=== PATIENT | male | born 1940 | race Caucasian/White ===

== ENCOUNTER → 2017-06-12 07:56 | Outpatient (CLI) | payer MEDICARE, OTHER, SELFPAY ==
[2017-06-12 08:32] LABS: Absolute Lymphocyte Count 0.84 X10^3/ul (0.83-4.51); Absolute Neutrophil Count 3.7 X10^3/uL (2.0-7.7); Basophil# 0.05 X10^3/uL; Eosinophil# 0.21 X10^3/uL; Hematocrit 35.6 % (40-54); Lymphocyte # 0.84 X10^3/ul (4.0); Lymphocyte % 16.1 % (19-41); Mean Corp Hgb Conc 30.9 g/gl (32-36); Mean Corpuscular Hgb 28.9 pg (27.0-32.0); Mean Corpuscular Volume 93.7 fL (80-94); Mean Platelet Vol. 11.7 fl (6.2-12.0); Monocyte# 0.43 X10^3/uL; Monocyte% 8.2 % (0-10); Neutrophil # 3.69 X10^3/uL (2.7-7.7); Neutrophil % 70.5 % (47-70); Platelet Count 111 K/mm3 (150-450); RBC Distribution Width CV 18.2 % (11.6-14.6); RBC Distribution Width SD 60.4 fl (35.1-43.9); White Blood Count 5.2 K/mm3 (4.4-11.0)
[2017-06-12 08:34] LABS: POSITIVE COUNT NO; POSITIVE DIFFERENTIAL NO; POSITIVE MORPHOLOGY NO
[2017-06-12 08:49] LABS: Albumin, Serum 3.4 g/dL (3.2-5.0); BUN 19 mg/dL (7-18); BUN/Creat Ratio 16.2 RATIO (10-20); Calcium,Total 9.6 mg/dL (8.5-10.1); Chloride 109 mmol/L (98-107); Creatinine, Serum 1.17 mg/dL (0.70-1.30); EST Glomerular Filtration Rate 64 mL/min (>60); Est Glom Filt Rate - Afr Amer 78 mL/min (>60); Glucose 131 mg/dL (74-106); Magnesium 1.6 mg/dL (1.6-2.6); Phosphorus 2.3 mg/dL (2.5-4.9); Potassium 4.2 mmol/L (3.5-5.1); Sodium Level 143 mmol/L (136-145); Uric Acid 5.4 mg/dL (3.5-7.2)
[2017-06-12 08:52] LABS: Protein, Urine (Random) 15.5 mg/dL (<11.9); Protein:Creat Ratio 150 mg/g CRE (0-200)
[2017-06-12 08:57] LABS: Vitamin D,25 Hydroxy 32.4 ng/mL (19.95-100.01)
[2017-06-14 07:59] LABS: PTHIN 68.9 pg/mL (18.4-80.1)
== END ==
PROVIDERS: Family Provider Internal Medicine; PCP Internal Medicine; Visit Provider Internal Medicine Nephrology
DX: N18.3 Chronic kidney disease, stage 3 (moderate) (principal); M10.9 Gout, unspecified; N25.81 Secondary hyperparathyroidism of renal origin; E83.42 Hypomagnesemia; D63.1 Anemia in chronic kidney disease
CPT/HCPCS: 36415; 80069; 82306; 82570; 83735; 83970; 84156; 84550; 85025

== ENCOUNTER 2018-02-19 20:50 | Emergency (ER) | payer MEDICARE, OTHER, SELFPAY ==
[2018-02-19 20:51] VITALS: PULSE 98; RESP 16; TEMP 37.6; O2SAT 95; BMI 40.4
--- NOTE | 2018-02-19 21:11 | EKG12_ITS ---
Test Reason : Blood Pressure : / mmHG Vent. Rate : 096 BPM Atrial Rate : 096 BPM P-R Int : 160 ms QRS Dur : 140 ms QT Int : 388 ms P-R-T Axes : 015 -03 020 degrees QTc Int : 490 ms Normal sinus rhythm Right bundle branch block Abnormal ECG Confirmed by TADEO NUNEZ, MENDEZ ([id number]), editor producer BOBO GALLOWAY ([id number]) on 02/22/2018 3:31:05 PM Referred By: DIPIKA Confirmed By:MENDEZ PIEDRA MD
--- NOTE | 2018-02-19 21:16 | RAD_ITS ---
STUDY: X-RAY CHEST REASON FOR EXAM: Male, 77 years old. Weakness, SOB. TECHNIQUE: Portable chest. COMPARISON: 02/18/2016. FINDINGS: The lungs are clear and expanded. There is no demonstrated pleural abnormality. Normal size heart. Sternotomy wires and aortic valve replacement are noted. Normal mediastinum and yancy. Normal visualized pulmonary arteries. Normal visualized aortic arch and descending thoracic aorta. Normal visualized thoracic spine. Normal visualized ribs, clavicles, and shoulders. There is no demonstrated abnormality of the visualized soft tissue structures of the upper abdomen. RAD/Chest 1 View (Portable) IMPRESSION: No acute process. Electronically Signed: Taylor Fritz MD at 21:49 EST Tel , Service support ,
[2018-02-19 21:17] VITALS: BP 160/92; PULSE 99; RESP 13
[2018-02-19] MEDS: Ondansetron 4 MG/2 ML Vial IV (21:17)
[2018-02-19] MEDS: 0.9% Normal Saline 1,000 ML 150 ML IV (21:17)
[2018-02-19 21:35] LABS: Absolute Lymphocyte Count 0.24 X10^3/ul (0.83-4.51); Absolute Neutrophil Count 6.6 X10^3/uL (2.0-7.7); Basophil# 0.01 X10^3/uL; Basophil% 0.1 % (0-1); Eosinophils% 1.3 % (0-5); Hematocrit 43.8 % (40-54); Hemoglobin 13.7 g/dl (13.0-16.5); Lymphocyte # 0.24 X10^3/ul (4.0); Lymphocyte % 3.2 % (19-41); Mean Corp Hgb Conc 31.3 g/gl (32-36); Mean Corpuscular Hgb 31.1 pg (27.0-32.0); Mean Corpuscular Volume 99.3 fL (80-94); Monocyte# 0.52 X10^3/uL; Neutrophil # 6.55 X10^3/uL (2.7-7.7); Neutrophil % 88.3 % (47-70); Platelet Count 89 K/mm3 (150-450); RBC Distribution Width CV 16.2 % (11.6-14.6); RBC Distribution Width SD 58.8 fl (35.1-43.9); Red Blood Count 4.41 M/mm3 (4.6-6.2); White Blood Count 7.4 K/mm3 (4.4-11.0)
[2018-02-19 21:37] LABS: Differential Indicated SCAN CRITERIA MET; POSITIVE COUNT NO; POSITIVE DIFFERENTIAL YES; POSITIVE MORPHOLOGY NO
[2018-02-19 22:01] LABS: Anion Gap 7 (5-15); BUN 22 mg/dL (7-18); BUN/Creat Ratio 15.7 RATIO (10-20); Calcium,Total 10.4 mg/dL (8.5-10.1); Chloride 109 mmol/L (98-107); EST Glomerular Filtration Rate 52 mL/min (>60); Est Glom Filt Rate - Afr Amer 63 mL/min (>60); Glucose 142 mg/dL (74-106); Potassium 4.3 mmol/L (3.5-5.1); Sodium Level 141 mmol/L (136-145)
--- NOTE | 2018-02-19 23:40 | ED.DCSUM_ITS ---
- ER Visit Summary Date of Service: 02/19/18 Chief Complaint: Weakness History of Present Illness: The patient is a 77 M who got the flu and pneumonia shots earlier today. He went to [facility] to help with the project. He got lightheaded, weak, and nauseated. Patient admits he did not drink much to day. He denies any pain. Past history significant for asthma, hypertension, polycystic kidneys with chronic kidney disease, gout. He did have an aortic valve replacement the past and is on Xarelto. Physical Examination: vital signs significant only for temperature 99.7. Patient is lying in bed. He appears ill but in no acute distress. Head and neck examination is normal. Heart is regular rate and rhythm. Lung sounds are clear. Abdomen is soft and nontender. Active bowel sounds are noted throughout. Neuro exam reveals no focal deficits. Test Results: Portable chest x-ray shows no acute process. EKG is sinus at 96 with right bundle branch block. This is unchanged compared to prior study from March 2016. CBC is significant only for platelet count of 89,000. Chemistry studies reveal BUN of 22 and creatinine 1.40. This is only slightly elevated from his baseline. His troponin is negative. Emergency Department Course and Treatment: Patient was given IV fluids and Zofran. On repeat evaluation he is significantly improved. He is tolerating p.o. at this time. He is able to get up and ambulate without difficulty. At this time he will be discharged home with his . He is to increase fluids over the next couple of days and return for any worsening signs or concerns. Treatment Plan: Disposition: Discharge Impression: Nausea, improved This note was generated with [employer] dictation software. It may contain incorrect words, spelling, and punctuation that were not noted in review of the chart prior to signing ED Disposition - Plan for ED Patient: Disposition: Home or Assisted Living Chief Complaint: Weakness Instructions: ED Dehydration Referrals: Ricky Bradley MD [Primary Care Provider] - 3-5 Days if not improving
[2018-02-19 23:41] VITALS: BP 125/77; PULSE 90; RESP 20; O2SAT 97
--- NOTE | 2018-02-19 23:42 | NURSING ---
PT AMBULATED IN HALLWAY. DENIES SOB, DIZZINESS, WEAKNESS.
== END 2018-02-20 00:03 | disposition home or self-care (01) ==
PROVIDERS: Emergency Provider Emergency Medicine; Family Provider Internal Medicine; PCP Internal Medicine
DX: R11.0 Nausea (principal); J45.909 Unspecified asthma, uncomplicated; Q61.3 Polycystic kidney, unspecified; I12.9 Hypertensive chronic kidney disease with stage 1 through stage 4 chronic kidney disease, or unspecified chronic kidney disease; N18.9 Chronic kidney disease, unspecified; M10.9 Gout, unspecified; Z95.2 Presence of prosthetic heart valve; Z79.02 Long term (current) use of antithrombotics/antiplatelets; Z79.51 Long term (current) use of inhaled steroids; Z79.899 Other long term (current) drug therapy
CPT/HCPCS: 71045; 80048; 84484; 85025; 93005; 96361; 96374; 99285; J7030; A4216; J2405

== ENCOUNTER → 2018-06-08 12:44 | Outpatient (CLI) | payer MEDICARE, OTHER, SELFPAY ==
[2018-06-08 13:36] LABS: Protein, Urine (Random) 17.7 mg/dL (<11.9); Protein:Creat Ratio 209 mg/g CRE (0-200)
[2018-06-08 13:37] LABS: Hematocrit 41.8 % (40-54); Mean Corp Hgb Conc 31.1 g/gl (32-36); Mean Corpuscular Volume 99.5 fL (80-94); Mean Platelet Vol. 12.8 fl (6.2-12.0); Platelet Count 94 K/mm3 (150-450); RBC Distribution Width CV 16.1 % (11.6-14.6); RBC Distribution Width SD 58.6 fl (35.1-43.9); White Blood Count 5.9 K/mm3 (4.4-11.0)
[2018-06-08 13:40] LABS: Scan Indicated on CBC? Y/N NO
[2018-06-08 13:50] LABS: Albumin, Serum 3.7 g/dL (3.2-5.0); BUN 25 mg/dL (7-18); BUN/Creat Ratio 19.7 RATIO (10-20); Calcium,Total 10.3 mg/dL (8.5-10.1); Chloride 108 mmol/L (98-107); Creatinine, Serum 1.27 mg/dL (0.70-1.30); EST Glomerular Filtration Rate 58 mL/min (>60); Est Glom Filt Rate - Afr Amer 70 mL/min (>60); Glucose 108 mg/dL (74-106); Phosphorus 2.1 mg/dL (2.5-4.9); Potassium 4.5 mmol/L (3.5-5.1); Sodium Level 139 mmol/L (136-145)
[2018-06-08 14:26] LABS: Vitamin D,25 Hydroxy 28.9 ng/mL (29.95-100.01)
[2018-06-08 14:27] LABS: PTHIN 95.8 pg/mL (18.4-80.1)
== END ==
PROVIDERS: Family Provider Internal Medicine; PCP Internal Medicine; Referring Provider Internal Medicine Nephrology; Visit Provider Internal Medicine Nephrology
DX: N18.3 Chronic kidney disease, stage 3 (moderate) (principal); E55.9 Vitamin D deficiency, unspecified; D63.1 Anemia in chronic kidney disease
CPT/HCPCS: 36415; 80069; 82306; 82570; 83970; 84156; 85027

== ENCOUNTER → 2018-12-18 | Outpatient (CLI) | payer MEDICARE, OTHER, SELFPAY ==
[2018-12-18 09:25] LABS: Hematocrit 37.6 % (40-54); Hemoglobin 11.6 g/dL (13.0-16.5); Mean Corp Hgb Conc 30.9 g/dL (32-36); Mean Corpuscular Hgb 30.2 pg (27.0-32.0); Mean Corpuscular Volume 97.9 fL (80-94); Mean Platelet Vol. 12.6 fl (6.2-12.0); Platelet Count 85 K/mm3 (150-450); RBC Distribution Width CV 17.2 % (11.6-14.6); RBC Distribution Width SD 61.6 fl (35.1-43.9); Red Blood Count 3.84 M/mm3 (4.6-6.2); White Blood Count 4.8 K/mm3 (4.4-11.0)
[2018-12-18 09:32] LABS: Protein, Urine (Random) 11.1 mg/dL (<11.9); Protein:Creat Ratio 109 mg/g CRE (0-200)
[2018-12-18 09:43] LABS: Albumin, Serum 3.3 g/dL (3.2-5.0); BUN 20 mg/dL (7-18); BUN/Creat Ratio 14.3 RATIO (10-20); Calcium,Total 9.8 mg/dL (8.5-10.1); Chloride 112 mmol/L (98-107); EST Glomerular Filtration Rate 52 mL/min (>60); Est Glom Filt Rate - Afr Amer 63 mL/min (>60); Glucose 106 mg/dL (74-106); Phosphorus 2.2 mg/dL (2.5-4.9); Potassium 4.4 mmol/L (3.5-5.1); Sodium Level 145 mmol/L (136-145)
[2018-12-18 09:57] LABS: PTHIN 94.9 pg/mL (18.4-80.1); Vitamin D,25 Hydroxy 29.5 ng/mL (29.95-100.01)
== END | disposition home or self-care (01) ==
LOC: LAB.FUTURE 08:28
PROVIDERS: Family Provider Internal Medicine; PCP Internal Medicine; Referring Provider Internal Medicine Nephrology; Visit Provider Internal Medicine Nephrology
DX: E55.9 Vitamin D deficiency, unspecified (principal); N18.3 Chronic kidney disease, stage 3 (moderate); D63.1 Anemia in chronic kidney disease; N25.81 Secondary hyperparathyroidism of renal origin
CPT/HCPCS: 36415; 80069; 82306; 82570; 83970; 84156; 85027

== ENCOUNTER 2019-04-08 08:16 | Observation (INO) | payer MEDICARE, OTHER, SELFPAY ==
[2019-02-27 12:23] VITALS: BMI 42.3
[2019-04-08] VITALS (14 sets, daily range): BP systolic 88–148; BP diastolic 51–87; PULSE 82–109; RESP 16–18; TEMP 36.2–37.7; O2SAT 92–98; BMI 41.8; BMI 39.4; BMI 39.5
--- NOTE | 2019-04-08 | GASB_PTH ---
PATIENT: FRANCISCO MACK LOC: [facility] U#:[id number] AGE/SX: 78/M ROOM: [facility] RE04/08/[address]: Dr. Juan Mendez DO : 1940 BED: 1 DIS: 04/09/2019 SPEC #: [id number] RECD: 04/08/19 15:10 STATUS: BK REQ #: [id number] IAN: 04/08/19 00:[address]: Reese Bello DEPT: SURGICAL PATHOLOGY RECD BY: Alexandru Hu ENTERED: 04/09/19 08:33 SP TYPE: Gastric Bx OTHR DR: DO Dr. Juan Hickman DO Dr. Richard Guttman, MD Dr. Victor Velasquez, MD Tissues: Gastric mucous membrane Procedures: Surgery Specimen Level IV Comments: @ Ordering doctor for SUIV edited from to DR.RGUTTM Gil by RENATO at 04/09/19916 @ Submitting doctor edited from to DR.RGUTTM Gil by RENATO at 04/09/19916 HEADER OPERATION: EGD ([facility] [place] PRE-OP DIAGNOSIS: Anemia, hematemesis TISSUE SUBMITTED: Antrum biopsy for histo and H. pylori MICROSCOPIC DIAGNOSIS Gastric antrum, biopsy: Chronic gastritis. AM:tal 04/11/19 COMMENT The results of immunohistochemistry for Helicobacter pylori will be reported separately ([id number]). MICROSCOPIC DESCRIPTION Slides are reviewed. GROSS DESCRIPTION Received in fixative is one container labeled with the patient's name and designated antrum biopsy. The specimen consists of multiple irregular fragments of light leo soft tissue that in aggregate measure 0.5 x 0.3 x 0.2 cm. The specimen is totally submitted in one cassette. / SJ:tal 04/09/19 TC:3 CPT: 09612
--- NOTE | 2019-04-08 08:34 | ED.DCSUM_ITS ---
- ER Visit Summary Date of Service: 04/08/19 Chief Complaint: Nausea and vomiting dark emesis History of Present Illness: The patient is a 78 M last medical history of CAD, hypertension, aortic valve replaced not on any blood thinners. Bovine valve. Renal insufficiency stage III. Patient states around 4:00 this morning he started having nausea vomiting. Said it was black. Denies any melena. Says he is not on any blood thinners. He is never had an upper GI bleed before. Denies any abdominal pain. Physical Examination: Older male no acute distress. Vital signs are stable and afebrile. Initial blood pressure 148/87. He does not look septic or toxic. He is in no acute distress. H EENT exam unremarkable. Neck nontender. Lungs clear to auscultation. Heart regular rhythm no murmur. Abdomen soft nontender normal bowel sounds no peritoneal signs. Patient is moving all 4 extremities. No edema. Neurologically is awake and alert with no focal motor deficits. Rectal exam nontender. External hemorrhoids. No active bleeding. Loose brown stool no melena or gross blood. No mass. Nontender. Test Results: CBC shows a white count 9. Hemoglobin 13. Platelets are chronically low in the 98,000. That is his baseline. Electrolytes unremarkable BUN 21 creatinine 1.3. Gap of 5. PT and INR are unremarkable. Patient is not on blood thinners. Emergency Department Course and Treatment: Patient treated with IV Zofran for nausea. IV Protonix for the concern for possible upper GI bleed. Screening labs being obtained. He has been typed and screened. Treatment Plan: Patient reportedly had vomiting of coffee-ground material. Both from the patient and the squad. I spoke to the general surgeon on-call Dr. Casey Bello. He can scope the patient today. I will asked the hospitalist for admission. Disposition: 23-hour observation. Impression: Acute nausea and vomiting of coffee-ground material Upper GI bleed This note was generated with [employer] dictation software. It may contain incorrect words, spelling, and punctuation that were not noted in review of the chart prior to signing ED Disposition - Plan for ED Patient: Referrals: Ricky Bradley MD [Primary Care Provider] -
[2019-04-08] MEDS: Ondansetron 4 MG/2 ML Vial IV (08:40)
[2019-04-08 08:47] LABS: Anion Gap 5 (5-15); BUN 21 mg/dL (7-18); BUN/Creat Ratio 15.9 RATIO (10-20); Calcium,Total 10.3 mg/dL (8.5-10.1); Chloride 112 mmol/L (98-107); Creatinine, Serum 1.32 mg/dL (0.70-1.30); EST Glomerular Filtration Rate 56 mL/min (>60); Est Glom Filt Rate - Afr Amer 67 mL/min (>60); Estimated Creatinine Clearance 46.85 ml/min; Glucose 163 mg/dL (74-106); Potassium 4.4 mmol/L (3.5-5.1); Sodium Level 144 mmol/L (136-145)
[2019-04-08 08:50] LABS: Absolute Lymphocyte Count 0.23 X10^3/uL (0.83-4.51); Absolute Neutrophil Count 8.6 X10^3/uL (2.0-7.7); Basophil# 0.06 X10^3/uL; Basophil% 0.6 % (0-1); Eosinophil# 0.12 X10^3/uL; Eosinophils% 1.3 % (0-5); Hematocrit 42.5 % (40-54); Hemoglobin 13.3 g/dL (13.0-16.5); Lymphocyte # 0.23 X10^3/ul (4.0); Lymphocyte % 2.5 % (19-41); Mean Corp Hgb Conc 31.3 g/dL (32-36); Mean Corpuscular Hgb 30.1 pg (27.0-32.0); Mean Corpuscular Volume 96.2 fL (80-94); Mean Platelet Vol. 12.8 fl (6.2-12.0); Monocyte# 0.35 X10^3/uL; Monocyte% 3.7 % (0-10); NRBC Flagged by Analyzer 0 % (0-5); Neutrophil # 8.58 X10^3/uL (2.7-7.7); Neutrophil % 91.5 % (47-70); POSITIVE COUNT YES; POSITIVE DIFFERENTIAL YES; Platelet Count 98 K/mm3 (150-450); RBC Distribution Width CV 17.3 % (11.6-14.6); RBC Distribution Width SD 60.9 fl (35.1-43.9); Red Blood Count 4.42 M/mm3 (4.6-6.2); White Blood Count 9.4 K/mm3 (4.4-11.0)
[2019-04-08 08:52] LABS: Differential Indicated SCAN CRITERIA MET
[2019-04-08 09:09] LABS: International Normalized Ratio 1.2; Prothrombin Time (Protime)PT. 15.1 SECONDS (11.7-14.9)
[2019-04-08 09:17] LABS: Differential Comment SCANNED; Platelet Estimate SLT DEC (ADEQ)
--- NOTE | 2019-04-08 09:57 | PCM.CONS.GEN ---
Reason for Consult Date of Consultation: 04/08/19 Reason for Consultation: coffee ground emesis History of Present Illness: The patient is a 78 year old M with awoke this morning with with epigastric discomfort and then vomited coffee grounds from the first emesis. He denies change in bowel habits, blood per rectum or melena. he denies any recent change in his overall status. He notes no abdominal pain. He notes no recent change in medications. He notes no epigastric pain or symptoms consistent with worsening peptic ulcer disease. He underwent upper and lower endoscopy by Dr. Crump at [facility] on October 02, 2017. He was found to have gastritis with erosions and 4 adenomatous polyps. He was started on PPI's and had a recommendation for follow up colonoscopy in 3 years. He had a porcine aortic valve. He takes a 81mg aspirin daily. he presents to the [facility] emergency department. he was not noted to be hypotensive or tachycardic. Hgb in August was 12.2. current Hgb is 13.3. He has chronic thrombocytopenia. his stool was grossly heme negative Past Medical History Past Medical History (Chronic Problems): Chronic Problems (Last Reviewed 04/08/19 @ 11:18 by Debbie Hines DO) Atherosclerosis of coronary artery of [place] heart without angina pectoris (Chronic) Nonrheumatic aortic (valve) stenosis (Chronic) AVR w/ #25 Shannan-Fisher 01/18/2011 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/11) AVR w/ #25 Shannan-Fisher 01/18/2011 Essential (primary) hypertension (Chronic) Hyperlipemia (Chronic) Right bundle branch block (RBBB) (Chronic) Medical History: Medical History (Last Reviewed 04/08/19 @ 11:18 by Debbie Hines DO) Atherosclerosis of coronary artery of [place] heart without angina pectoris (Chronic) I25.10 Nonrheumatic aortic (valve) stenosis (Chronic) I35.0 AVR w/ #25 Shannan-Fisher 01/18/2011 Essential (primary) hypertension (Chronic) I10 Hyperlipemia (Chronic) E78.5 Right bundle branch block (RBBB) (Chronic) I45.10 Anemia in chronic kidney disease N18.9, D63.1 Asthma J45.909 Chronic kidney disease, stage 3 N18.3 GERD (gastroesophageal reflux disease) K21.9 Gout M10.9 History of splenomegaly Z87.898 Multiple lung nodules R91.[address] 2010 Obesity E66.9 Obstructive sleep apnea G47.33 Osteoarthritis M19.90 Polycystic kidney disease Q61.3 Thrombocytopenia D69.6 Allergies acetaminophen [From Vicodin] Allergy (Verified 04/08/19 08:22) Other hydrocodone [From Vicodin] Allergy (Verified 04/08/19 08:22) Other strawberry Allergy (Verified 04/08/19 08:22) Hives venom-honey bee [bee venom (honey bee)] Allergy (Verified 04/08/19 08:22) Anaphylaxis Home Medications: Ambulatory Orders Medication Instructions Recorded Allopurinol [Zyloprim] 300 mg PO DAILY 04/12/16 Fenofibrate [Tricor] 48 mg PO DAILY 04/12/16 Lisinopril [Zestril] 40 mg PO DAILY 04/12/16 Magnesium Oxide [Mag-Ox 400] 400 mg PO DAILY 04/12/16 Multivit-Min/FA/Lycopen/Lutein 1 ea PO DAILY 04/12/16 [Centrum Silver Tablet] Omeprazole [Prilosec] 20 mg PO QHS 04/12/16 Fluticasone/Vilanterol [Breo 1 ea IH DAILY 02/19/18 Ellipta 200-25 Mcg INH] Sertraline HCl [Zoloft] 50 mg PO QHS 02/19/18 aspirin 81 mg tablet,delayed 81 mg PO DAILY 02/25/19 release fluticasone propionate 50 1 spray INTRANASAL QHS 02/25/19 mcg/actuation nasal spray,suspension carvedilol 12.5 mg tablet 12.5 mg PO BID 02/27/19 Oxybutynin Chloride [Oxybutynin 10 mg PO DAILY 04/08/19 Chloride ER] Surgical History: Surgical History (Last Reviewed 04/08/19 @ 11:18 by Debbie Hines DO) History of aortic valve replacement with bioprosthetic valve (Chronic) Onset Date: 01/18/11 Z95.3 AVR w/ #25 Shannan-Fisher 01/18/2011 History of knee replacement Z96.659 History of left heart catheterization Onset Date: 01/05/11 Z98.890 History of umbilical hernia repair Z98.890, Z87.19 Surgical History: herniorrhaphy, total knee arthroplasty, - - Aortic valve replacement with bioprosthetic valve. Psychiatric History: No pertinent psych hx Smoking Status: Never smoker - *Family History Maternal Family History: Family History (Last Reviewed 02/27/19 @ 13:24 by Parveen Charlton MD) Father CAD (coronary artery disease) Brother Diabetes Mother Heart disease History Items: No pertinent history Paternal Family History: Family History (Last Reviewed 02/27/19 @ 13:24 by aPrveen Charlton MD) Father CAD (coronary artery disease) Brother Diabetes Mother Heart disease History Items: No pertinent history Review of Systems Constitutional: Denies: Chills, Fever, Weight Change HEENT: Denies: Head Aches, Sinus Congestion, Sinus Drainage Cardiovascular: Denies: Chest Pain, Palpitations Respiratory: Denies: Cough, Shortness of breath at rest, Sputum production Gastrointestinal: Denies: Abdominal Pain, Nausea, Vomiting Genitourinary: Denies: Dysuria Musculoskeletal: Denies: Joint Pain, Joint Tenderness Skin: Denies: Rash, Wounds Neurological: Denies: Numbness, Tingling, Focal weakness Psychiatric: Denies: Anxiety, Depression, Homicidal Ideations, Suicidal Ideations Hematologic/ Lymphatic: Denies: Easy Bruising, Easy Bleeding Patient Problems: Active and Suspected Problems (Last Reviewed 04/08/19 @ 11:18 by Debbie Hines DO) UGIB (upper gastrointestinal bleed) (Acute) - Physical Exam Vitals/I&O's: Vital Signs Temp Pulse Resp BP Pulse Ox 99.2 F H 82 18 116/74 98 04/08/19 08:16 04/08/19 09:44 04/08/19 09:44 04/08/19 09:44 04/08/19 09:44 Oxygen Delivery Method Room Air Weight: 132.1 kg Body Mass Index (BMI) 41.8 Intake and Output for Last 24 Hours 04/06/19 04/07/19 04/08/19 23:59 23:59 23:59 Intake Total 110 / 110 Balance 110 / 110 General: Alert, Oriented x3, Cooperative Lungs: Clear to auscultation, Normal air movement Cardiovascular: Regular rate, No murmurs Abdomen: Bowel Sounds Present, Soft, Non Tender Laboratory Results 04/08/19 08:25: WBC 9.4, RBC 4.42 L, Hgb 13.3, Hct 42.5, MCV 96.2 H, MCH 30.1, MCHC 31.3 L, RDW Std Deviation 60.9 H, RDW Coeff of Raina 17.3 H, Plt Count 98 L, MPV 12.8 H, Immature Gran % (Auto) 0.400, Neut % (Auto) 91.5 H, Lymph % (Auto) 2.5 L, [place] % (Auto) 3.7, Eos % (Auto) 1.3, Baso % (Auto) 0.6, Absolute Neuts (auto) 8.6 H, Absolute Lymphs (auto) 0.23 L, Nucleated RBC % 0, Differential Comment SCANNED, Platelet Estimate SLT 04/08/19 08:25: PT 15.1 H, INR 1.2 04/08/19 08:25: Sodium 144, Potassium 4.4, Chloride 112 H, Carbon Dioxide 27.0, Anion Gap 5, BUN 21 H, Creatinine 1.32 H, Estim Creat Clear Calc 46.85, Est GFR (MDRD) Af Amer 67, Est GFR (MDRD) Non-Af 56 L, BUN/Creatinine Ratio 15.9, Glucose 163 H, Calcium 10.3 H 04/08/19 08:25: Blood Type Pending, Antibody Screen Pending Assessment/Plan All Active Problems (Last Reviewed 04/08/19 @ 11:18 by Debbie Hines DO) UGIB (upper gastrointestinal bleed) (Acute) coffee ground emesis, likely gastric ulcer I will plan for semi-urgent upper endoscopy with possible control of GI bleeding. The patient understands the risks, benefits, possible complications and alternatives. He is currently hemodynamically stable. IV PPIs were started. type and screen
[2019-04-08 10:58] LABS: Hematocrit 41.9 % (40-54); Hemoglobin 12.8 g/dL (13.0-16.5)
[2019-04-08] MEDS: Lactated Ringers 1,000 ML 70 ML IV (11:09)
--- NOTE | 2019-04-08 11:16 | HP.PCM_ITS ---
Problem List (1) UGIB (upper gastrointestinal bleed) Status: Acute History of Present Illness Date of Admission: 04/08/19 Chief Complaint: Emesis with coffee grounds Mr. Medellin is a 78 year old M who was feeling well up until this am at about 400 when he awoke with some pain across his abdomen and nausea. He has coffee ground emesis since his first emesis and has vomited 5-6 times. He states that his BM have been brown and liquid. He does have h/o gastritis with erosion from an EGD done 2018. He is on asa but no other anticoagulation. He was given zofran in the ED and states that his has helped his nausea. 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) Nonrheumatic aortic (valve) stenosis (Chronic) AVR w/ #25 Shannan-Fisher 01/18/2011 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/11) AVR w/ #25 Shannan-Fisher 01/18/2011 Essential (primary) hypertension (Chronic) Hyperlipemia (Chronic) Right bundle branch block (RBBB) (Chronic) Medical History: Medical History (Last Reviewed 04/08/19 @ 11:18 by Debbie Hines DO) Atherosclerosis of coronary artery of [place] heart without angina pectoris (Chronic) I25.10 Nonrheumatic aortic (valve) stenosis (Chronic) I35.0 AVR w/ #25 Shannan-Fisher 01/18/2011 Essential (primary) hypertension (Chronic) I10 Hyperlipemia (Chronic) E78.5 Right bundle branch block (RBBB) (Chronic) I45.10 Anemia in chronic kidney disease N18.9, D63.1 Asthma J45.909 Chronic kidney disease, stage 3 N18.3 GERD (gastroesophageal reflux disease) K21.9 Gout M10.9 History of splenomegaly Z87.898 Multiple lung nodules R91.[address] 2010 Obesity E66.9 Obstructive sleep apnea G47.33 Osteoarthritis M19.90 Polycystic kidney disease Q61.3 Thrombocytopenia D69.6 Allergies acetaminophen [From Vicodin] Allergy (Verified 04/08/19 08:22) Other hydrocodone [From Vicodin] Allergy (Verified 04/08/19 08:22) Other strawberry Allergy (Verified 04/08/19 08:22) Hives venom-honey bee [bee venom (honey bee)] Allergy (Verified 04/08/19 08:22) Anaphylaxis Home Medications: Ambulatory Orders Medication Instructions Recorded Allopurinol [Zyloprim] 300 mg PO DAILY 04/12/16 Fenofibrate [Tricor] 48 mg PO DAILY 04/12/16 Lisinopril [Zestril] 40 mg PO DAILY 04/12/16 Magnesium Oxide [Mag-Ox 400] 400 mg PO DAILY 04/12/16 Multivit-Min/FA/Lycopen/Lutein 1 ea PO DAILY 04/12/16 [Centrum Silver Tablet] Omeprazole [Prilosec] 20 mg PO QHS 04/12/16 Fluticasone/Vilanterol [Breo 1 ea IH DAILY 02/19/18 Ellipta 200-25 Mcg INH] Sertraline HCl [Zoloft] 50 mg PO QHS 02/19/18 aspirin 81 mg tablet,delayed 81 mg PO DAILY 02/25/19 release fluticasone propionate 50 1 spray INTRANASAL QHS 02/25/19 mcg/actuation nasal spray,suspension oxybutynin chloride 5 mg 10 mg PO DAILY 02/25/19 tablet,extended release 24 hr carvedilol 12.5 mg tablet 12.5 mg PO BID 02/27/19 Oxybutynin Chloride [Oxybutynin 10 mg PO DAILY 04/08/19 Chloride ER] Surgical History: Surgical History (Last Reviewed 04/08/19 @ 11:18 by Debbie Hines DO) History of aortic valve replacement with bioprosthetic valve (Chronic) Onset Date: 01/18/11 Z95.3 AVR w/ #25 Shannan-Fisher 01/18/2011 History of knee replacement Z96.659 History of left heart catheterization Onset Date: 01/05/11 Z98.890 History of umbilical hernia repair Z98.890, Z87.19 Surgical History: herniorrhaphy, total knee arthroplasty, - - Aortic valve replacement with bioprosthetic valve. Psychiatric History: No pertinent psych hx Lives: Spouse/ Significant Other Smoking Status: Never smoker Tobacco Use: Non-smoker Alcohol: None Drugs: None - *Family History Maternal Family History: Family History (Last Reviewed 02/27/19 @ 13:24 by Parveen Charlton MD) Father CAD (coronary artery disease) Brother Diabetes Mother Heart disease History Items: No pertinent history Paternal Family History: Family History (Last Reviewed 02/27/19 @ 13:24 by Parveen Charlton MD) Father CAD (coronary artery disease) Brother Diabetes Mother Heart disease History Items: No pertinent history Review of Systems Constitutional: Denies: Anorexia, Chills, Fever, Night Sweats, Malaise, Weakness, Weight Change, Fatigue Eyes: Denies: Blurred vision, Cataracts, Conjunctivae Inflammation, Double vision, Drainage, Eyelid Inflammation, Pain, Redness, Vision Change HEENT: Reports: Difficulty Hearing. Denies: Difficulty Swallowing, Dysphasia, Ear Pain, Eye Pain, Hard of Hearing, Head Aches, Hearing Changes, Nasal bleeding, Nasal Congestion, Post Nasal Drip, Sinus Congestion, Sinus Drainage, Sore Throat, Visual Changes Cardiovascular: Denies: Chest Pain, Claudication, Chest Pressure, Chest Tightness, Edema, Heaviness, Light Headedness, Orthopnea, Palpitations, Paroxysmal Noc. Dyspnea, Syncope Respiratory: Denies: Cough, Hemoptysis, Pleuritic Pain, Shortness of Breath, Shortness of breath at rest, Shortness of breath upon exertion, Sputum production, Wheezing Gastrointestinal: Reports: Abdominal Pain, Diarrhea, Hematemesis, Nausea, Vomiting. Denies: Constipation, Dyspepsia, Hematochezia, Melena Genitourinary: Denies: Dysuria, Frequency, Hematuria, Hesitancy, Incontinence, Nocturia, Retention, Urgency Musculoskeletal: Reports: Joint Pain, Joint stiffness. Denies: Back Pain, Neck Pain Skin: Denies: Dryness, Jaundice, Lesions, Pruritis, Rash, Skin Changes, Wounds Neurological: Reports: Balance problems - 2/2 neuropathy, Numbness - feet. Denies: Blurred vision, Double vision, Change in Speech, Slurred speech, Confusion, Difficulty swallowing, Focal weakness, Headaches, Incoordination, Tingling, Tremor, Seizures Psychiatric: Denies: Anxiety, Depression Endocrine: Denies: Change in Body Habitus, Heat/ Cold Intolerance, Polydipsia, Polyuria Hematologic/ Lymphatic: Denies: Adenopathy, Anemia, Easy Bruising, Easy Bleeding, Petechiae, Purpura VTE Information - Inpt Only VTE Present on Admission: No VTE Mechan Device Prophylaxis: SCD's VTE Pharm Prophylaxis ordered?: No Patient Problems: Active and Suspected Problems (Last Reviewed 02/27/19 @ 13:24 by Parveen Charlton MD) UGIB (upper gastrointestinal bleed) (Acute) - Physical Exam Vitals/I&O's: Vital Signs Temp Pulse Resp BP Pulse Ox 98.1 F 95 16 148/79 H 98 04/08/19 10:40 04/08/19 10:40 04/08/19 10:40 04/08/19 10:40 04/08/19 10:40 Oxygen Delivery Method Room Air Weight: 124.9 kg Body Mass Index (BMI) 39.4 Intake and Output for Last 24 Hours 04/06/19 04/07/19 04/08/19 23:59 23:59 23:59 Intake Total 110 / 110 Output Total 200 / 200 Balance -90 / -90 General: Alert, Oriented x3, Cooperative, No apparent distress, Well developed, Well nourished, - - just arriving to PCU, at bedside, sitting on EOB HEENT: Atraumatic, PERRLA, EOMI, Normocephalic, EAC Clear Oral: Moist Mucosa, No Gingival or Mucosal Lesions/ Ulcerations, - - poor dentition Neck: Supple, No JVD, Negative Carotid Bruits, Negative Hepatojugular Reflux, No Nodes, No Nuchal Rigidity, Trachea Midline, Thyroid Normal Size and Texture Lungs: Clear to auscultation, Normal air movement, No rhonchi, No wheeze, No rales Cardiovascular: Regular rate, Regular Rhythm, Normal S1, Normal S2, No murmurs, No Ectopic Activity, No rub noted, No Gallop Abdomen: Bowel Sounds Present, Soft, Non Tender, Non-Distended, Obese, No hernias noted Extremities: No clubbing, No cyanosis, Edema - 1+ B LE-per pt this is chronic Skin: No rashes, No breakdown, - - changes c/w chronic venous stasis B LE Musculoskeletal: No Tenderness to Palpation of Joints or Extremities, No Muscle Wasting, Arthritic Changes Lymphatic: No Cervical, Supraclavicular, or Inguinal Adenopathy Neurological: Cranial nerves II-XII grossly intact, Neuro grossly intact, Motor Exam 5/5 strength throughout Psych/Mental Status: Appropriate, Alert and oriented to time, place, person, mood and affect Laboratory Results 04/08/19 08:25: WBC 9.4, RBC 4.42 L, Hgb 13.3, Hct 42.5, MCV 96.2 H, MCH 30.1, MCHC 31.3 L, RDW Std Deviation 60.9 H, RDW Coeff of Raina 17.3 H, Plt Count 98 L, MPV 12.8 H, Immature Gran % (Auto) 0.400, Neut % (Auto) 91.5 H, Lymph % (Auto) 2.5 L, [place] % (Auto) 3.7, Eos % (Auto) 1.3, Baso % (Auto) 0.6, Absolute Neuts (auto) 8.6 H, Absolute Lymphs (auto) 0.23 L, Nucleated RBC % 0, Differential Comment SCANNED, Platelet Estimate SLT 04/08/19 08:25: PT 15.1 H, INR 1.2 04/08/19 08:25: Sodium 144, Potassium 4.4, Chloride 112 H, Carbon Dioxide 27.0, Anion Gap 5, BUN 21 H, Creatinine 1.32 H, Estim Creat Clear Calc 46.85, Est GFR (MDRD) Af Amer 67, Est GFR (MDRD) Non-Af 56 L, BUN/Creatinine Ratio 15.9, Glucose 163 H, Calcium 10.3 H 04/08/19 08:25: Blood Type Pending, Antibody Screen Pending 04/08/19 10:49: Hgb 12.8 L, Hct 41.9 Current Medications Albuterol Sulfate (Ventolin Aerosols) 2.5 mg INHALATION Q6HWA.RT VITA Budesonide (Pulmicort Aerosol) 0.5 mg INHALATION Q12H.RT VITA Carvedilol (Coreg) 12.5 mg PO BID VITA Fluticasone Propionate (Flonase Nasal [place]) 1 spray NASAL DAILY VITA Lactated Ringer's () 1,000 mls @ 70 mls/hr IV .[id number] VITA Stop: 04/09/19 00:42 Last Admin: 04/08/19 11:09 Dose: 70 mls/hr Documented by: Sodium Chloride () 250 mls @ 15 mls/hr IV .[id number] PRN PRN Reason: Saline Flush Sodium Chloride () 250 mls @ 15 mls/hr IV .[id number] PRN PRN Reason: Additional IVPB Infusion Pantoprazole Sodium 40 mg/ (Sodium Chloride) 110 mls @ 330 mls/hr IV Q12 VITA Lisinopril (Zestril) 40 mg PO DAILY VITA Sodium Chloride () 10 - 40 ml IV UD PRN PRN Reason: SALINE FLUSH Assessment/Plan All Active Problems (Last Reviewed 02/27/19 @ 13:24 by Parveen Charlton MD) UGIB (upper gastrointestinal bleed) (Acute) Hematochezia -Admit to PCU -EGD today around [address] Bello -NPO -Protonix IV 40 mg BID -hold ASA -q 6 hr H&H (Hgb 12.8 on admission) -baseline hgb is around 13 -transfuse for < 7 or profuse bleeding -coags WNL CHALINO on CKD Stage 2-3 -baseline creatinine is 1.2-1.4 -1.3 today -hold IVF for now, if remains NPO may need IVF -watch UO and Creatinine -has PCKD Hypercalcemia -may be a bit dry -not new -check ionized Secondary Hyperparathyroidism -related to renal disease -vitamin D supplementation GERD -PPI Chronic Thrombocytopenia -98,000 -stable -no need for plts CAD/HTN/HPL/H/O AVR(2010)/Chronic RBBB -continue BP meds and watch pressures -hold fenofibrate -hold asa -Follows with Dr. Charlton Gout -hold allopurinol for now Asthma -continue home inhalers Urinary incontinence -hold oxybutinin Depression -hold Zoloft DEMI -CPAP if pt uses at home Severe Obesity -recommend wgt loss DVT prophylaxis -SCD CODE STATUS: FULL
--- NOTE | 2019-04-08 11:36 | NURSING ---
Called report to Jacquelin MOE in [facility]
--- NOTE | 2019-04-08 12:51 | OP.EGD_ITS ---
Patient Name: Satya Medellin Procedure Date: 04/08/2019 11:53 AM Date of : 1940 Age: 78 Procedure: Upper GI endoscopy Indications: Coffee-ground emesis Providers: Reese Bello MD Medicines: Monitored Anesthesia Care Patient Profile: This is a 78 year old male. Refer to note in patient chart for documentation of history and physical. Complications: No immediate complications. Procedure: Pre-Anesthesia Assessment: - Prior to the procedure, a History and Physical was performed, and patient medications and allergies were reviewed. The patient is competent. The risks and benefits of the procedure and the sedation options and risks were discussed with the patient. All questions were answered and informed consent was obtained. Patient identification and proposed procedure were verified by the physician, the nurse and the electrical lineman in the procedure room. Mental Status Examination: alert and oriented. Airway Examination: normal oropharyngeal airway and neck mobility. Respiratory Examination: clear to auscultation. CV Examination: normal. Prophylactic Antibiotics: The patient does not require prophylactic antibiotics. Prior Anticoagulants: The patient has taken no previous anticoagulant or antiplatelet agents. ASA Grade Assessment: E - Emergency. After reviewing the risks and benefits, the patient was deemed in satisfactory condition to undergo the procedure. The anesthesia plan was to use monitored anesthesia care (MAC). Immediately prior to administration of medications, the patient was re-assessed for adequacy to receive sedatives. The heart rate, respiratory rate, oxygen saturations, blood pressure, adequacy of pulmonary ventilation, and response to care were monitored throughout the procedure. The physical status of the patient was re-assessed after the procedure. After obtaining informed consent, the endoscope was passed under direct vision. Throughout the procedure, the patient's blood pressure, pulse, and oxygen saturations were monitored continuously. The gastroscope was introduced through the mouth, and advanced to the jejunum. The upper GI endoscopy was accomplished without difficulty. The patient tolerated the procedure well. Scope In: 12:40:52 PM Scope Out: 12:46:33 PM Total Procedure Duration Time 0 hours 5 minutes 41 seconds Findings: The examined jejunum was normal. Localized mild inflammation characterized by erythema was found in the duodenal bulb. Scattered moderate inflammation characterized by erosions, erythema, friability, linear erosions and shallow ulcerations was found in the gastric antrum. Biopsies were taken with a cold forceps for Helicobacter pylori testing using PyloriTek test. Biopsies were taken with a cold forceps for histology. A medium-sized hiatal hernia was present. The examined esophagus was normal. Impression: - Normal examined jejunum. - Duodenitis. - Gastritis. Biopsied. - Medium-sized hiatal hernia. - Normal esophagus. Recommendation: - [facility]. - Clear liquid diet for 1 day. - Give Protonix (pantoprazole): initiate therapy with 80 mg IV bolus, then 8 mg/hr IV by continuous infusion. - Continue present medications. Procedure Code(s): --- Professional --- 14407, Esophagogastroduodenoscopy, flexible, transoral; with biopsy, single or multiple CPT copyright 2017 [employer]. All rights reserved. The codes documented in this report are preliminary and upon tennis player review may be revised to meet current compliance requirements. Reese Bello MD 04/08/2019 12:50:43 PM This report has been signed electronically. Number of Addenda: 0 Note Initiated On: 04/08/2019 11:53 AM
--- NOTE | 2019-04-08 14:00 | IMM_PTH ---
PATIENT: FRANCISCO MACK LOC: [facility] U#:[id number] AGE/SX: 78/M ROOM: [facility] RE04/08/[address]: Dr. Juan Mendez DO : 1940 BED: 1 DIS: 04/09/2019 SPEC #: [id number] RECD: 04/09/19 09:02 STATUS: BK REQ #: [id number] IAN: 04/08/19 14:[address]: Reese Bello DEPT: IMMUNOHISTOCHEMISTRY RECD BY: Whitney Chan ENTERED: 04/09/19 09:03 SP TYPE: IMMUNO OTHR DR: DO Dr. Juan Hickman DO Dr. Victor Velasquez, MD Tissues: Stomach, NOS Procedures: H Pylori (initial) PHYSICIAN & INSTITUTION [place] [id number] SPECIMEN INFORMATION: Tissue Source: Antrum biopsy Clinical Info: Anemia, hematemesis Specimen Number: [id number] CPT code: 16391 METHODOLOGY: Deparaffinized sections of prefer/formalin-fixed tissue or PAP/DQ stained slides are incubated with monoclonal/polyclonal antibodies/oligonucleotide probes. Localization is made via biotin free immunoperoxidase method. Appropriate controls are performed and reacted as expected. Results on target cell population are indicated in the following table: RESULTS: ANTIBODY / CLONE RESULT H Pylori (polyclonal) negative These tests were developed and their performance characteristics determined by [facility]. They may not have been cleared or approved by the U.S. Food and Drug Administration. The FDA has determined that such clearance or approval is not necessary. INTERPRETATION: Antrum biopsy: Negative for Helicobacter pylori organisms. AM:tal 04/11/19
[2019-04-08 16:44] LABS: Hematocrit 38.4 % (40-54); Hemoglobin 11.7 g/dL (13.0-16.5)
[2019-04-08] MEDS: Budesonide Respules 0.5 MG/2 ML AMPUL.NEB. INHALATION (19:25)
[2019-04-08] MEDS: Albuterol 2.5 MG/3 ML VIAL.NEB. INHALATION (19:25)
[2019-04-08] MEDS: Carvedilol 12.5 MG Tablet PO (21:29)
[2019-04-08 22:36] LABS: Hematocrit 35.2 % (40-54); Hemoglobin 10.9 g/dL (13.0-16.5)
[2019-04-09] VITALS (8 sets, daily range): BP systolic 94–123; BP diastolic 67–71; PULSE 75–105; RESP 18–20; TEMP 36.4–36.6; O2SAT 93–99
[2019-04-09] MEDS: 0.9% Saline Lock 10 ML Syringe IV ×2 (00:21→09:21)
[2019-04-09 05:17] LABS: Absolute Lymphocyte Count 0.38 X10^3/uL (0.83-4.51); Absolute Neutrophil Count 3.7 X10^3/uL (2.0-7.7); Basophil# 0.01 X10^3/uL; Basophil% 0.2 % (0-1); Differential Indicated SCAN CRITERIA MET; Eosinophil# 0.03 X10^3/uL; Eosinophils% 0.7 % (0-5); Hematocrit 33.5 % (40-54); Hemoglobin 10.6 g/dL (13.0-16.5); Lymphocyte # 0.38 X10^3/ul (4.0); Lymphocyte % 8.6 % (19-41); Mean Corp Hgb Conc 31.6 g/dL (32-36); Mean Corpuscular Hgb 30.6 pg (27.0-32.0); Mean Corpuscular Volume 96.8 fL (80-94); Mean Platelet Vol. 12.7 fl (6.2-12.0); Monocyte# 0.31 X10^3/uL; NRBC Flagged by Analyzer 0 % (0-5); Neutrophil # 3.67 X10^3/uL (2.7-7.7); Neutrophil % 83.3 % (47-70); POSITIVE COUNT YES; POSITIVE DIFFERENTIAL YES; Platelet Count 70 K/mm3 (150-450); RBC Distribution Width CV 17.9 % (11.6-14.6); RBC Distribution Width SD 61.6 fl (35.1-43.9); Red Blood Count 3.46 M/mm3 (4.6-6.2); White Blood Count 4.4 K/mm3 (4.4-11.0)
[2019-04-09 05:38] LABS: Anion Gap 6 (5-15); BUN 28 mg/dL (7-18); BUN/Creat Ratio 19.4 RATIO (10-20); Calcium,Total 9.1 mg/dL (8.5-10.1); Chloride 113 mmol/L (98-107); Creatinine, Serum 1.44 mg/dL (0.70-1.30); EST Glomerular Filtration Rate 50 mL/min (>60); Est Glom Filt Rate - Afr Amer 61 mL/min (>60); Estimated Creatinine Clearance 42.95 ml/min; Glucose 121 mg/dL (74-106); Potassium 4.3 mmol/L (3.5-5.1); Sodium Level 142 mmol/L (136-145)
[2019-04-09 06:34] LABS: Differential Comment SCANNED
[2019-04-09 06:35] LABS: Platelet Estimate SLT DEC (ADEQ)
[2019-04-09] MEDS: Albuterol 2.5 MG/3 ML VIAL.NEB. INHALATION (06:48)
[2019-04-09] MEDS: Budesonide Respules 0.5 MG/2 ML AMPUL.NEB. INHALATION (06:48)
[2019-04-09] MEDS: Lisinopril 40 MG Tablet PO (09:19)
[2019-04-09] MEDS: Carvedilol 12.5 MG Tablet PO (09:19)
[2019-04-09] MEDS: Fluticasone 0.05% 1 SPRAY NASAL.SRY NASAL (09:25)
--- NOTE | 2019-04-09 10:30 | CASEMGMT ---
Addendum entered by Devon Crump 04/09/19 11:05: [facility] to [facility] and clinical information faxed to [place] with pt's approval. Mary DEE Original Note: RN CM Assessment Presentation: GIB Intro role of CM and purpose of RN CM assessment. Pt is awake, alert and able to participate in assessment. Demographics, PCP and Pharmacy verified. Pt states no dc needs, anticipates to go home today PCP: Dr. Bradley Specialists: Dr. Bello [facility] Retail Insurance: [facility] Prescription Benefit: yes LNOK: , Sagrario Medellin Living Arrangements: Lives independently with . Transportation: Drives, or family can drive Patient DC goals: Home DC PLAN: Home. Mary DEE
--- NOTE | 2019-04-09 11:53 | CASEMGMT ---
Intro role of CM to patient and PICKARD form explained re: Observation status for treatment of UGI Bleed. Explained hospitalization will be paid per? [facility] guidelines for Outpatient billing?and condition will continue to be evaluated for Inpt necessity. Also let pt know that [facility] sends paper in the billing packet with their phone number if questions arise. Discussed Pharmacy section of PICKARD form and self administered medication guideline.? Pt verbalizes understanding and does not have further questions. Form signed and placed in chart, copy to pt. SAYDA MOE BSN CM
--- NOTE | 2019-04-09 12:13 | PCM.DC ---
- Discharge Diagnoses Current Active Problems: Current Active and Chronic Problems (Last Reviewed 04/08/19 @ 11:18 by Debbie Hines DO) UGIB (upper gastrointestinal bleed) (Acute) You will use the following diet at home:: No restrictions Your food should be the consistency of: Regular Your liquids should be the consistency of: Regular/Thin Discharge Activity: Return to Normal Activity Weight Bearing Status: Full weight bearing Allergies/Adverse Reactions: Allergies acetaminophen [From Vicodin] Allergy (Verified 04/08/19 08:22) Other hydrocodone [From Vicodin] Allergy (Verified 04/08/19 08:22) Other strawberry Allergy (Verified 04/08/19 08:22) Hives venom-honey bee [bee venom (honey bee)] Allergy (Verified 04/08/19 08:22) Anaphylaxis Medications to take at Discharge Allopurinol [Zyloprim] 300 mg PO DAILY 04/12/16 Fenofibrate [Tricor] 48 mg PO DAILY 04/12/16 Lisinopril [Zestril] 40 mg PO DAILY 04/12/16 Magnesium Oxide [Mag-Ox 400] 400 mg PO DAILY 04/12/16 Multivit-Min/FA/Lycopen/Lutein [Centrum Silver Tablet] 1 ea PO DAILY 04/12/16 Fluticasone/Vilanterol [Breo Ellipta 200-25 Mcg INH] 1 ea IH DAILY 02/19/18 Sertraline HCl [Zoloft] 50 mg PO QHS 02/19/18 fluticasone propionate 50 mcg/actuation nasal spray,suspension 1 spray INTRANASAL QHS 02/25/19 carvedilol 12.5 mg tablet 12.5 mg PO BID 02/27/19 Oxybutynin Chloride [Oxybutynin Chloride ER] 10 mg PO DAILY 04/08/19 Omeprazole [Prilosec] 40 mg PO QHS #60 cap 04/09/19 The following prescriptions were given: Omeprazole [Prilosec] 40 mg PO QHS #60 cap Transmission Status: Pending to [facility] Primary Care Physician: Ricky Bradley MD [Primary Care Provider] - Please follow up with your Primary Care Physician in: in 3 weeks Test Results: Test results from this visit will be discussed in further detail at your follow-up appointment, if applicable. Please Follow Up With: Reese Bello MD When: in 2 weeks
--- NOTE | 2019-04-09 12:28 | PCM.PN.SRG ---
Patient Problems: Active and Suspected Problems (Last Reviewed 04/08/19 @ 11:18 by Debbie Hines DO) UGIB (upper gastrointestinal bleed) (Acute) Subjective: no nausea or further coffee-ground emesis - Physical Exam Vitals/I&O's: Vital Signs Temp Pulse Resp BP Pulse Ox 97.8 F 75 18 123/70 H 99 04/09/19 09:12 04/09/19 10:59 04/09/19 09:12 04/09/19 09:15 04/09/19 09:12 Oxygen Delivery Method CPAP Weight: 124.9 kg Body Mass Index (BMI) 39.4 Intake and Output for Last 24 Hours 04/07/19 04/08/19 04/09/19 23:59 23:59 23:59 Intake Total 1832.5 / 1832.5 210 / 210 Output Total 200 / 200 Balance 1632.5 / 1632.5 210 / 210 General: Alert, Oriented x3, Cooperative Lungs: Clear to auscultation, Normal air movement Cardiovascular: Regular rate, Regular Rhythm Abdomen: Bowel Sounds Present, Soft, Non Tender Laboratory Results 04/08/19 16:12: Hgb 11.7 L, Hct 38.4 L 04/08/19 22:30: Hgb 10.9 L, Hct 35.2 L 04/09/19 04:54: WBC 4.4, RBC 3.46 L, Hgb 10.6 L, Hct 33.5 L, MCV 96.8 H, MCH 30.6, MCHC 31.6 L, RDW Std Deviation 61.6 H, RDW Coeff of Raina 17.9 H, Plt Count 70 L, MPV 12.7 H, Immature Gran % (Auto) 0.200, Neut % (Auto) 83.3 H, Lymph % (Auto) 8.6 L, [place] % (Auto) 7.0, Eos % (Auto) 0.7, Baso % (Auto) 0.2, Absolute Neuts (auto) 3.7, Absolute Lymphs (auto) 0.38 L, Nucleated RBC % 0, Differential Comment SCANNED, Platelet Estimate SLT 04/09/19 04:54: Sodium 142, Potassium 4.3, Chloride 113 H, Carbon Dioxide 23.0, Anion Gap 6, BUN 28 H, Creatinine 1.44 H, Estim Creat Clear Calc 42.95, Est GFR (MDRD) Af Amer 61, Est GFR (MDRD) Non-Af 50 L, BUN/Creatinine Ratio 19.4, Glucose 121 H, Calcium 9.1 04/09/19 04:54: Ionized Calcium Pending Current Medications Albuterol Sulfate (Ventolin Aerosols) 2.5 mg INHALATION Q6HWA.RT [facility] Last Admin: 04/09/19 06:48 Dose: 2.5 mg Documented by: Budesonide (Pulmicort Aerosol) 0.5 mg INHALATION Q12H.RT [facility] Last Admin: 04/09/19 06:48 Dose: 0.5 mg Documented by: Carvedilol (Coreg) 12.5 mg PO BID [facility] Last Admin: 04/09/19 09:19 Dose: 12.5 mg Documented by: Fluticasone Propionate (Flonase Nasal [place]) 1 spray NASAL DAILY [facility] Last Admin: 04/09/19 09:25 Dose: 1 spray Documented by: Sodium Chloride () 250 mls @ 15 mls/hr IV .[id number] PRN PRN Reason: Saline Flush Sodium Chloride () 250 mls @ 15 mls/hr IV .[id number] PRN PRN Reason: Additional IVPB Infusion Pantoprazole Sodium 40 mg/ (Sodium Chloride) 110 mls @ 330 mls/hr IV Q12 [facility] Last Infusion: 04/09/19 10:38 Dose: Infused Documented by: Lisinopril (Zestril) 40 mg PO DAILY [facility] Last Admin: 04/09/19 09:19 Dose: 40 mg Documented by: Ondansetron HCl (Zofran) 4 mg IV Q6H PRN PRN PRN Reason: NAUSEA/VOMITING Sodium Chloride () 10 - 40 ml IV UD PRN PRN Reason: SALINE FLUSH Last Admin: 04/09/19 09:21 Dose: 10 ml Documented by: Medical Necessity - Tobacco Use Smoking Status: Never smoker Tobacco Use: Non-smoker Assessment/Plan All Active Problems (Last Reviewed 04/08/19 @ 11:18 by Debbie Hines DO) UGIB (upper gastrointestinal bleed) (Acute) coffee ground emesis, gastritis with superficial gastric ulcer found an upper endoscopy would maintain patient on proton pump inhibitors and plan for repeat upper endoscopy in approximately one month.rapid H. pylori test was tentatively negative. We'll await final pathology. Patient's hemoglobin did decrease somewhat overnight is expected given his presenting symptoms. With no further bleeding I'm comfortable discharging the patient home with instructions to return if he notes further episodes of GI bleeding.
--- NOTE | 2019-04-11 16:20 | DS.PCM_ITS ---
Discharge Date and Diagnosis Date of Admission: 04/08/19 Date of Discharge: 04/09/19 - Primary Discharge Diagnosis #1 duodenitis #2 gastritis #3 hematemesis secondary to gastritis and duodenitis #4 essential hypertension #5 chronic thrombocytopenia #6 stage III chronic kidney disease - Secondary Discharge Diagnosis Chronic Problems (Last Reviewed 04/08/19 @ 11:18 by Debbie Hines DO) Atherosclerosis of coronary artery of [place] without angina pectoris (Chronic) Nonrheumatic aortic (valve) stenosis (Chronic) AVR w/ #25 Shannan-Fisehr 01/18/2011 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/11) AVR w/ #25 Shannan-Fisher 01/18/2011 Essential (primary) hypertension (Chronic) Hyperlipemia (Chronic) Right bundle branch block (RBBB) (Chronic) Hospital Course and Treatment Operations: None Procedures: EGD Summary of Care Provided: The patient is a 78 year old M who was seen in the emergency room at [facility] after having an episode at home of dark emesis. Work-up in the emergency room included labs which revealed a white blood cell count of 9, hemoglobin of 13, and platelet count of 98,000. BUN was 21, creatinine was 1.3. Patient was given IV Zofran for nausea and given IV Protonix, he was placed in observation status on PCU and hemoglobin was monitored. He had a slight drop in his hemoglobin during his hospitalization there were no more episodes of emesis. Patient was seen in consultation by general surgery, he underwent an EGD which showed evidence of gastritis and duodenitis, no active bleeding was noted. On 04/09/2019, patient was seen and examined: On examination he appeared in good health and spirits. Vital signs as documented. Skin warm and dry and without overt rashes. Neck without JVD. Lungs clear. Heart exam notable for regular rhythm, normal sounds and absence of murmurs, rubs or gallops. Abdomen unremarkable and without evidence of organomegaly, masses, or abdominal aortic enlargement. Extremities nonedematous. Neuro: Cranial nerves II through XII are grossly intact, no focal motor deficits were noted, sensation to light touch and pinprick is intact. Psych: Patient is alert and oriented x3, he does not appear anxious or depressed On 04/09/2019, patient was seen and examined and felt to be in stable condition for discharge home. - Physical Exam Vitals/I&O's: Vital Signs Temp Pulse Resp BP Pulse Ox 97.8 F 75 18 123/70 H 99 04/09/19 09:12 04/09/19 10:59 04/09/19 09:12 04/09/19 09:15 04/09/19 09:12 Oxygen Delivery Method CPAP Weight: 124.9 kg Body Mass Index (BMI) 39.4 Intake and Output for Last 24 Hours 04/09/19 04/10/19 04/11/19 23:59 23:59 23:59 Intake Total 810 / 810 Balance 810 / 810 Laboratory Results 04/09/19 04:54: Ionized Calcium 5.9 H Discharge Activity: Return to Normal Activity Weight Bearing Status: Full weight bearing Home Medications: Medications to take at Discharge Allopurinol [Zyloprim] 300 mg PO DAILY 04/12/16 Fenofibrate [Tricor] 48 mg PO DAILY 04/12/16 Lisinopril [Zestril] 40 mg PO DAILY 04/12/16 Magnesium Oxide [Mag-Ox 400] 400 mg PO DAILY 04/12/16 Multivit-Min/FA/Lycopen/Lutein [Centrum Silver Tablet] 1 ea PO DAILY 04/12/16 Fluticasone/Vilanterol [Breo Ellipta 200-25 Mcg INH] 1 ea IH DAILY 02/19/18 Sertraline HCl [Zoloft] 50 mg PO QHS 02/19/18 fluticasone propionate 50 mcg/actuation nasal spray,suspension 1 spray INTRANASAL QHS 02/25/19 carvedilol 12.5 mg tablet 12.5 mg PO BID 02/27/19 Oxybutynin Chloride [Oxybutynin Chloride ER] 10 mg PO DAILY 04/08/19 Omeprazole [Prilosec] 40 mg PO QHS #60 cap 04/09/19 Following Prescrptions Were Given to Patient: Omeprazole [Prilosec] 40 mg PO QHS #60 cap Transmission Status: [facility] by [facility] Primary Care Physician: Ricky Bradley MD [Primary Care Provider] - Please follow up with your Primary Care Physician in: in 3 weeks Please Follow Up With: Reese Bello MD When: in 2 weeks Disposition: Home Minutes spent on discharge:: 30 Patient Condition:: Stable Medical Necessity - Tobacco Use Smoking Status: Never smoker Tobacco Use: Non-smoker Meaningful Use Info Meaningful Use Diagnoses (Choose all that apply): None applicable Code Visit OBSV E&M: 50056 Observation care discharge
== END 2019-04-09 12:14 | disposition home or self-care (01) ==
LOC: ED 08:49 → PCU 10:25
PROVIDERS: Surgery; Admitting Provider Internal Medicine; Emergency Provider Emergency Medicine; Family Provider Internal Medicine; PCP Internal Medicine; Visit Provider Internal Medicine
PROC: 0DJ08ZZ Inspection of Upper Intestinal Tract, Via Natural or Artificial Opening Endoscopic (ICD-10-PCS; CPT 43235; principal; 2019-04-08 13:55)
DX: K29.51 Unspecified chronic gastritis with bleeding (principal); K29.81 Duodenitis with bleeding; K44.9 Diaphragmatic hernia without obstruction or gangrene; R32 Unspecified urinary incontinence; N25.81 Secondary hyperparathyroidism of renal origin; E83.52 Hypercalcemia; K25.9 Gastric ulcer, unspecified as acute or chronic, without hemorrhage or perforation; I25.10 Atherosclerotic heart disease of native coronary artery without angina pectoris; I12.9 Hypertensive chronic kidney disease with stage 1 through stage 4 chronic kidney disease, or unspecified chronic kidney disease; N18.3 Chronic kidney disease, stage 3 (moderate); K64.4 Residual hemorrhoidal skin tags; E78.5 Hyperlipidemia, unspecified; D63.1 Anemia in chronic kidney disease; J45.909 Unspecified asthma, uncomplicated; K21.9 Gastro-esophageal reflux disease without esophagitis; R91.8 Other nonspecific abnormal finding of lung field; E66.9 Obesity, unspecified; G47.33 Obstructive sleep apnea (adult) (pediatric); M10.9 Gout, unspecified; M19.90 Unspecified osteoarthritis, unspecified site; Q61.3 Polycystic kidney, unspecified; Z79.899 Other long term (current) drug therapy; Z95.2 Presence of prosthetic heart valve; Z79.82 Long term (current) use of aspirin; Z79.51 Long term (current) use of inhaled steroids; Z68.39 Body mass index [BMI] 39.0-39.9, adult; Z71.3 Dietary counseling and surveillance; D69.6 Thrombocytopenia, unspecified
CPT/HCPCS: 43239; 36415; 80048; 82330; 85014; 85018; 85025; 85610; 86850; 86900; 86901; 88305; 88342; 94640; 96365; 96366; 96375; 99218; 99251; 99284; J7030; J7120; A4216; G0378; G0463; J2405

== ENCOUNTER → 2019-06-14 07:50 | Outpatient (CLI) | payer MEDICARE, OTHER, SELFPAY ==
[2019-04-08 10:59] VITALS: BMI 39.4
[2019-06-14 08:22] LABS: Hematocrit 35.7 % (40-54); Mean Corp Hgb Conc 30.8 g/dL (32-36); Mean Corpuscular Volume 94.2 fL (80-94); Mean Platelet Vol. 12.3 fl (6.2-12.0); POSITIVE COUNT YES; Platelet Count 90 K/mm3 (150-450); RBC Distribution Width CV 17.1 % (11.6-14.6); Red Blood Count 3.79 M/mm3 (4.6-6.2); White Blood Count 5.1 K/mm3 (4.4-11.0)
[2019-06-14 08:26] LABS: Scan Indicated on CBC? Y/N NO
[2019-06-14 08:41] LABS: Protein, Urine (Random) 9.2 mg/dL (<11.9); Protein:Creat Ratio 81 mg/g CRE (0-200)
[2019-06-14 08:45] LABS: Albumin, Serum 3.3 g/dL (3.2-5.0); BUN 21 mg/dL (7-18); BUN/Creat Ratio 15.4 RATIO (10-20); Calcium,Total 10.3 mg/dL (8.5-10.1); Chloride 111 mmol/L (98-107); Creatinine, Serum 1.36 mg/dL (0.70-1.30); EST Glomerular Filtration Rate 54 mL/min (>60); Est Glom Filt Rate - Afr Amer 65 mL/min (>60); Glucose 128 mg/dL (74-106); Phosphorus 2.5 mg/dL (2.5-4.9); Potassium 4.5 mmol/L (3.5-5.1); Sodium Level 143 mmol/L (136-145)
[2019-06-14 09:05] LABS: PTHIN 88.5 pg/mL (18.4-80.1)
[2019-06-14 09:10] LABS: Vitamin D,25 Hydroxy 29.3 ng/mL
== END ==
LOC: LAB.FUTURE 07:54 → LAB 07:57
PROVIDERS: PCP Internal Medicine; Referring Provider Internal Medicine Nephrology; Visit Provider Internal Medicine Nephrology
DX: E55.9 Vitamin D deficiency, unspecified (principal); N18.3 Chronic kidney disease, stage 3 (moderate); D63.1 Anemia in chronic kidney disease; N25.81 Secondary hyperparathyroidism of renal origin
CPT/HCPCS: 36415; 80069; 82306; 82570; 83970; 84156; 85027

== ENCOUNTER 2019-09-02 20:25 | Inpatient (IN) | payer MEDICARE, OTHER, SELFPAY ==
[2019-04-08 10:59] VITALS: BMI 39.4
[2019-09-02 20:26] VITALS: BP 155/88; PULSE 75; RESP 16; TEMP 37.2; O2SAT 96; BMI 42.1
--- NOTE | 2019-09-02 20:29 | ED.RN ---
[facility] NUMBER [phone]
--- NOTE | 2019-09-02 21:11 | RAD_ITS ---
STUDY: X-RAY - PELVIS AND LEFT HIP REASON FOR EXAM: Male, 79 years old. fall, left hip pain TECHNIQUE: 3 views of the pelvis and hip. COMPARISON: None. FINDINGS: There is an intertrochanteric fracture of the left hip which extends into the subtrochanteric region. There is avulsion of the lesser and greater trochanters. There is adjacent soft tissue hematoma. There is osteopenia. There are degenerative changes of the lower lumbar spine. RAD/HIP, UNI W/ Pelvis 2-3 Views IMPRESSION: intertrochanteric fracture of the left hip which extends into the subtrochanteric region. There is avulsion of the lesser and greater trochanters. There is adjacent soft tissue hematoma. Osteopenia Degenerative changes of the lower lumbar spine Electronically Signed: Moe Castro, at 22:16 EDT Tel , Service support ,
[2019-09-02] MEDS: fentaNYL 100 MCG/2 ML Ampul 50 MCG IV ×2 (21:19→22:36)
[2019-09-02 21:29] LABS: Absolute Lymphocyte Count 0.68 X10^3/uL (0.83-4.51); Absolute Neutrophil Count 4.8 X10^3/uL (2.0-7.7); Basophil# 0.06 X10^3/uL; Eosinophil# 0.17 X10^3/uL; Eosinophils% 2.8 % (0-5); Hematocrit 34.2 % (40-54); Hemoglobin 10.8 g/dL (13.0-16.5); Lymphocyte # 0.68 X10^3/ul (4.0); Mean Corp Hgb Conc 31.6 g/dL (32-36); Mean Corpuscular Hgb 29.5 pg (27.0-32.0); Mean Corpuscular Volume 93.4 fL (80-94); Mean Platelet Vol. 12.7 fl (6.2-12.0); Monocyte# 0.43 X10^3/uL; NRBC Flagged by Analyzer 0 % (0-5); Neutrophil # 4.79 X10^3/uL (2.7-7.7); Neutrophil % 77.6 % (47-70); POSITIVE COUNT YES; Platelet Count 89 K/mm3 (150-450); RBC Distribution Width SD 61.7 fl (35.1-43.9); Red Blood Count 3.66 M/mm3 (4.6-6.2); White Blood Count 6.2 K/mm3 (4.4-11.0)
[2019-09-02 21:37] LABS: Anion Gap 6 (5-15); BUN 26 mg/dL (7-18); BUN/Creat Ratio 18.8 RATIO (10-20); Calcium,Total 10.1 mg/dL (8.5-10.1); Chloride 113 mmol/L (98-107); Creatinine, Serum 1.38 mg/dL (0.70-1.30); EST Glomerular Filtration Rate 53 mL/min (>60); Est Glom Filt Rate - Afr Amer 64 mL/min (>60); Estimated Creatinine Clearance 42.69 ml/min; Glucose 132 mg/dL (74-106); Potassium 4.3 mmol/L (3.5-5.1); Sodium Level 144 mmol/L (136-145)
--- NOTE | 2019-09-02 21:52 | RAD_ITS ---
STUDY: X-RAY CHEST REASON FOR EXAM: Male, 79 years old. fall, pain TECHNIQUE: Portable chest COMPARISON: 02/19/2018 FINDINGS: There is stable mild cardiomegaly. There is small hiatal hernia. There are sternal wires. Normal mediastinum and yancy. Normal visualized pulmonary arteries. Normal visualized aortic arch and descending thoracic aorta. Normal visualized thoracic spine. Normal visualized ribs, clavicles, and shoulders. There is no demonstrated abnormality of the visualized soft tissue structures of the upper abdomen. RAD/Chest 1 View (Portable) IMPRESSION: Stable mild cardiomegaly Small hiatal hernia Sternal wires, prior cardiothoracic surgery Electronically Signed: Moe Castro, at 22:33 EDT Tel , Service support ,
[2019-09-02 22:00] LABS: Differential Comment SCANNED; Differential Indicated SCAN CRITERIA MET
[2019-09-02 22:01] LABS: Platelet Estimate MOD DEC (ADEQ)
--- NOTE | 2019-09-02 22:22 | ED.VISSUMM ---
- ER Visit Summary Date of Service: 09/02/19 Chief Complaint: Fall History of Present Illness: The patient is a 79 M presenting after mechanical fall. Patient was in his garage and fell onto his left side. He was unable to get up. He did not hit his head or lose consciousness. He is not on anticoagulants. He complains of left hip pain. Denies other complaints. Physical Examination: Vitals are stable. Patient is afebrile. Alert no acute distress. HEENT exam is unremarkable. Neck is nontender Lungs are clear and equal bilaterally. Heart is regular rate and rhythm. Abdomen is soft nontender nondistended. Extremities left lower extremity rotated and shortened. Left hip diffusely tender. Normal distal pulses. Skin is warm and dry. No focal neurologic deficit. Remainder of exam is unremarkable. Emergency Department Course and Treatment: Patient was given fentanyl IV. CBC shows hemoglobin 10.8, platelet 89. Chemistry showed glucose 132, BUN 26, creatinine 1.38. Left hip x-ray shows intertrochanteric fracture of the left hip which extends into the subtrochanteric region. There is avulsion of the lesser and greater trochanters. There is adjacent soft tissue hematoma. Osteopenia. Degenerative changes of the lower lumbar spine. Discussed with Dr. Ladd and the hospitalist for admission. Disposition: Admission Impression: Left intertrochanteric fracture This note was generated with [employer] dictation software. It may contain incorrect words, spelling, and punctuation that were not noted in review of the chart prior to signing ED Disposition - Plan for ED Patient: Referrals: Ricky Bradley MD [Primary Care Provider] -
[2019-09-02 22:25] VITALS: BP 126/76; PULSE 76; RESP 18; O2SAT 98
--- NOTE | 2019-09-02 22:54 | PCM.HP.STD ---
Problem List (1) Closed left hip fracture Status: Acute Qualifiers: Encounter type: initial encounter Qualified Code(s): S72.002A - Fracture of unspecified part of neck of left femur, initial encounter for closed fracture (2) Thrombocytopenia Status: Chronic (3) Anemia of chronic disease Status: Chronic (4) Morbid obesity Status: Chronic (5) DEMI (obstructive sleep apnea) Status: Chronic (6) Asthma Status: Chronic Qualifiers: Asthma severity: unspecified severity Asthma persistence: unspecified Asthma complication type: unspecified Qualified Code(s): J45.909 - Unspecified asthma, uncomplicated (7) CKD (chronic kidney disease), stage III Status: Chronic (8) PCK (polycystic kidney disease) Status: Chronic (9) Atherosclerosis of coronary artery of [place] heart without angina pectoris Status: Chronic Qualifiers: Coronary Disease-Associated Artery/Lesion type: unspecified vessel or lesion type Qualified Code(s): I25.10 - Atherosclerotic heart disease of [place] coronary artery without angina pectoris (10) History of aortic valve replacement with bioprosthetic valve Status: Chronic Comment: AVR w/ #25 Shannan-Fisher 01/18/2011 (11) Essential (primary) hypertension Status: Chronic (12) Hyperlipemia Status: Chronic Qualifiers: Hyperlipidemia type: unspecified Qualified Code(s): E78.5 - Hyperlipidemia, unspecified History of Present Illness Date of Admission: 09/02/19 Chief Complaint: Mechanical fall, L hip pain The patient is a 79 y/o M w/ PMHx: CKD stage III, CAD, Valvular Heart Disease s/p AVR with bioprosthetic valve, HTN, HLD, Asthma, AOCD, GERD, Known pulmonary nodules, DEMI, Chronic thrombocytopenia, Morbid Obesity, Gout who presents to the [facility] ED on 09/02/19 with history of fall in his garage, no head trauma, but landed on his left hip with severe pain following with debility and obvious deformity. He believes that he might of had an echocardiogram in February 2019 as he transition from the [facility] with Dr. Cobb to Dr. Charlton however he is unsure. He does admit since his AVR having exertional dyspnea and has several chairs around his property for when he needs to sit down. He does note that this is at his baseline and has not worsened. He denies any recent chest discomfort or other issues. He denies any recent fever, chills, nausea, emesis, abdominal pain, cough, persistent dyspnea, alteration to sense of taste or smell, myalgia or arthralgias. Work-up in the ED included T 98.9, heart rate 75, BP 155/88 with repeat increased to 216/76, respiratory rate 16, 96% on room air, CBC with WBC 6.2, hemoglobin 10.8, platelet 89 with noted lymphopenia and no market left shift, BMP with chloride 113, BUN/creatinine 26/1.38, glucose 132, rotavirus testing pending per ED physician, chest x-ray with stable mild cardiomegaly globally with small hiatal hernia with sternal wires status post cardiothoracic surgery, plain film of the hip and pelvis with an intertrochanteric fracture of the left hip extending into the subtrochanteric region with an avulsion of the lesser and greater trochanters with adjacent soft tissue hematoma, osteopenia, degenerative changes of the lower lumbar spine. ED patient administered fentanyl. ED physician discussed case with Dr. Ladd. Past Medical History Past Medical History (Chronic Problems): Chronic Problems (Last Reviewed 04/08/19 @ 11:[address] Debbie Hines, ) Thrombocytopenia (Chronic) Anemia of chronic disease (Chronic) Morbid obesity (Chronic) DEMI (obstructive sleep apnea) (Chronic) Asthma (Chronic) CKD (chronic kidney disease), stage III (Chronic) PCK (polycystic kidney disease) (Chronic) Atherosclerosis of coronary artery of [place] heart without angina pectoris (Chronic) Nonrheumatic aortic (valve) stenosis (Chronic) AVR w/ #25 Shannan-Fisher 01/18/2011 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 Debbie Hines, ) Atherosclerosis of coronary artery of [place] heart without angina pectoris (Chronic) I25.10 Nonrheumatic aortic (valve) stenosis (Chronic) I35.0 AVR w/ #25 Shannan-Fisher 01/18/2011 Essential (primary) hypertension (Chronic) I10 Hyperlipemia (Chronic) E78.5 Right bundle branch block (RBBB) (Chronic) I45.10 Anemia in chronic kidney disease N18.9, D63.1 Asthma J45.909 Chronic kidney disease, stage 3 N18.3 GERD (gastroesophageal reflux disease) K21.9 Gout M10.9 History of splenomegaly Z87.898 Multiple lung nodules R91.[address] 2010 Obesity E66.9 Obstructive sleep apnea G47.33 Osteoarthritis M19.90 Polycystic kidney disease Q61.3 Thrombocytopenia D69.6 Allergies acetaminophen [From Vicodin] Allergy (Verified 09/02/19 20:30) Other hydrocodone [From Vicodin] Allergy (Verified 09/02/19 20:30) Other strawberry Allergy (Verified 09/02/19 20:30) Hives venom-honey bee [bee venom (honey bee)] Allergy (Verified 09/02/19 20:30) Anaphylaxis Home Medications: Ambulatory Orders Medication Instructions Recorded Allopurinol [Zyloprim] 300 mg PO DAILY 04/12/16 Fenofibrate [Tricor] 48 mg PO DAILY 04/12/16 Lisinopril [Zestril] 40 mg PO DAILY 04/12/16 Magnesium Oxide [Mag-Ox 400] 400 mg PO DAILY 04/12/16 Multivit-Min/FA/Lycopen/Lutein 1 ea PO DAILY 04/12/16 [Centrum Silver Tablet] Fluticasone/Vilanterol [Breo 1 ea IH DAILY 02/19/18 Ellipta 200-25 Mcg INH] Sertraline HCl [Zoloft] 50 mg PO QHS 02/19/18 carvedilol 12.5 mg tablet 12.5 mg PO BID 02/27/19 Oxybutynin Chloride [Oxybutynin 10 mg PO DAILY 04/08/19 Chloride ER] Omeprazole [Prilosec] 40 mg PO QHS #60 cap 04/09/19 Hydrochlorothiazide 12.5 mg PO DAILY 09/02/19 Surgical History: Surgical History (Last Reviewed 04/08/19 @ 11:[address] Debbie Hnies, DO) History of aortic valve replacement with bioprosthetic valve (Chronic) Onset Date: 01/18/11 Z95.3 AVR w/ #25 Shannan-Fisher 01/18/2011 History of knee replacement Z96.659 History of left heart catheterization Onset Date: 01/05/11 Z98.890 History of umbilical hernia repair Z98.890, Z87.19 Surgical History: herniorrhaphy - Umbilical hernia repair., total knee arthroplasty - Left total knee replacement., - - Aortic valve replacement with bioprosthetic valve. Psychiatric History: Anxiety, Depression Lives: Spouse/ Significant Other Smoking Status: Never smoker Tobacco Use: Non-smoker Alcohol: None Drugs: None - *Family History Maternal Family History: Family History (Last Reviewed 02/27/19 @ 13:[address] Parveen Charlton MD) Father CAD (coronary artery disease) Brother Diabetes Mother Heart disease History Items: Diabetes, Heart Disease Paternal Family History: Family History (Last Reviewed 02/27/19 @ 13:[address] Parveen Charlton MD) Father CAD (coronary artery disease) Brother Diabetes Mother Heart disease History Items: Cancer, High Cholesterol, Heart Disease, Hypertension Review of Systems Constitutional: Reports: Fatigue. Denies: Anorexia, Chills, Fever, Malaise, Weakness, Weight Change HEENT: Denies: Head Aches, Sinus Congestion, Sinus Drainage Cardiovascular: Denies: Chest Pain, Chest Pressure, Chest Tightness, Orthopnea, Palpitations, Syncope Respiratory: Reports: Shortness of breath upon exertion. Denies: Cough, Shortness of Breath, Shortness of breath at rest, Sputum production Gastrointestinal: Denies: Abdominal Pain, Nausea, Vomiting Genitourinary: Denies: Dysuria Musculoskeletal: Reports: Joint Pain, Joint stiffness, Joint swelling, Joint Tenderness, Leg Pain Skin: Denies: Rash, Wounds Neurological: Denies: Numbness, Tingling, Focal weakness Psychiatric: Denies: Anxiety, Depression, Homicidal Ideations, Suicidal Ideations Hematologic/ Lymphatic: Reports: Anemia, Easy Bruising, Easy Bleeding VTE Information - Inpt Only VTE Present on Admission: No VTE Mechan Device Prophylaxis: SCD's VTE Pharm Prophylaxis ordered?: No Reason prophylaxis not ordered:: Medical Contraindication - Holding given questionable hematoma and chronic thrombocytopenia with planned OR. Patient Problems: Active and Suspected Problems (Last Reviewed 04/08/19 @ 11:[address] Debbie Hines DO) Closed left hip fracture (Acute) Subjective: Laying in the ED bed, fatigued appearance but no acute distress. Objective: Physical Examination: General: awake, alert, oriented x 3 and cooperative, laying in the ED bed, fatigued appearance, notes pain currently controlled. Skin: normal color, turgor, no icterus, cyanosis. HEENT: AT/NC, EOMI, PERRLA, dry MM, no carotid bruits or JVD noted. Lungs: CTA bilaterally, moderate effort, moderate decrease BL bases, no rales, ronchi or wheezing. Heart: Regular rate and rhythm; no gallop, rub audible, status post AVR with positive SM. Abdomen: soft, with obese, NTTP, ND, normal BS, no HSM. Extremities: no cyanosis, clubbing, status post mechanical fall with left hip fracture externally rotated, peripheral pulses intact, bilateral lower extremity pedal to mid nair edema. Neurological: patient awake, alert, oriented x 3; cognitive function is baseline intact; pupils equally reactive to light and accomodation; cranial nerves II-XII grossly normal, status post fall with left hip fracture, able to move requested right lower extremity as well as bilateral upper extremity, strength severely global decrease secondary to acute presentation. Psychiatric: affect appears fatigued otherwise normal, no acute evidence of depressive or anxiety feelings. - Physical Exam Vitals/I&O's: Vital Signs Temp Pulse Resp BP Pulse Ox 98.9 F 76 18 216/76 H 98 09/02/19 20:26 09/02/19 22:25 09/02/19 22:25 09/02/19 22:25 09/02/19 22:25 Oxygen Delivery Method Room Air Weight: 285 lb 3.553 oz Body Mass Index (BMI) 42.1 Laboratory Results 09/02/19 20:55: WBC 6.2, RBC 3.66 L, Hgb 10.8 L, Hct 34.2 L, MCV 93.4, MCH 29.5, MCHC 31.6 L, RDW Std Deviation 61.7 H, RDW Coeff of Raina 18.0 H, Plt Count 89 L, MPV 12.7 H, Immature Gran % (Auto) 0.600, Neut % (Auto) 77.6 H, Lymph % (Auto) 11.0 L, Piatt % (Auto) 7.0, Eos % (Auto) 2.8, Baso % (Auto) 1.0, Absolute Neuts (auto) 4.8, Absolute Lymphs (auto) 0.68 L, Nucleated RBC % 0, Differential Comment SCANNED, Platelet Estimate MOD 09/02/19 20:55: Sodium 144, Potassium 4.3, Chloride 113 H, Carbon Dioxide 25.0, Anion Gap 6, BUN 26 H, Creatinine 1.38 H, Estim Creat Clear Calc 42.69, Est GFR (MDRD) Af Amer 64, Est GFR (MDRD) Non-Af 53 L, BUN/Creatinine Ratio 18.8, Glucose 132 H, Calcium 10.1 09/02/19 22:06: COVID-19 ([place]) Cancelled Assessment/Plan All Active Problems (Last Reviewed 04/08/19 @ 11:[address] Debbie Hines, DO) UGIB (upper gastrointestinal bleed) (Acute) Closed left hip fracture (Acute) The patient is a 79 y/o M w/ PMHx: CKD stage III, CAD, Valvular Heart Disease s/p AVR with bioprosthetic valve, HTN, HLD, Asthma, AOCD, GERD, Known pulmonary nodules, DEMI, Chronic thrombocytopenia, Morbid Obesity, Gout who presents to the [facility] ED on 09/02/19 with history of fall in his garage, no head trauma, but landed on his left hip with severe pain following with debility and obvious deformity. 1. General debility, L hip pain s/p mechanical fall w/ intertrochanteric fracture of the left hip extending into the subtrochanteric region with an avulsion of the lesser and greater trochanters with adjacent soft tissue hematoma: Plain film noting plain film of the hip and pelvis with an intertrochanteric fracture of the left hip extending into the subtrochanteric region with an avulsion of the lesser and greater trochanters with adjacent soft tissue hematoma, osteopenia. Orthopedic surgery consulted from ED, Dr. Ladd, family with the patient from prior L TKR. Will admit to PCU given significant cardiac history, maintain NPO after midnight, continue gentle IVFs, obtain TSH, Mag level, UA, hernandez placement prior to OR, monitor I/Os, frequent positioning, fall precautions, type and screen. Pain, anti-emetic regimen. PT/OT following operative intervention. CM consulted for discharge planning. Pre-op COVID testing negative. EMS EKG with non-specific ST-T wave changes with SR with RBBB. Requested repeat EKG upon admission. Per Surgical Risk Calculator NSQIP, given age, lab data, comorbidities, serious complication or any complication risk 10.7% / 10.9% which is below average however given patient concurrent cardiac history with AVR as well as asthmatic history, chronic thrombocytopenia do suspect that risk is higher therefore requested repeat EKG with comparison and will request echocardiogram as well as troponin x1 and maintain on nuclear monitoring technician. Unclear if echocardiogram recently performed in 02/2019 thus if this is the case would defer repeat. Will discuss case with cardiology in a.m. to ascertain if consultation appropriate. Once these items are completed would agree with progression to operative intervention. 2. Valvular heart disease: Status post AVR with bioprosthetic valve, reportedly possible 02/[address] Cobb at the [facility], will review with Dr. Charlton to ascertain if repeat echocardiogram needed or if recent echocardiogram present. Recent echocardiogram in system noted 06/25/2018 with LV normal size, LV systolic function normal, EF 70%, LV diastolic function not evaluated secondary to severe MAC, RV's normal size, RV systolic function normal, Shannan Fisher prosthetic aortic valve present with no aortic valve regurgitation with a peak gradient of 22 mmHg, mean gradient 11 mmHg and dimensionless valve index 0.55 with new evidence of mild mitral stenosis when previously compared to 2016 echocardiogram. 3. Chronic asthma: We will transition to scheduled DuoNeb therapy and PRN albuterol, encourage head of bed once clinically appropriate, I-S and oxygen supplementation as needed. 4. Chronic thrombocytopenia: Admission platelets 89, baseline appears 80-90 over the last several years, stable, trend. 5. CAD: Nonobstructive, continue patient Coreg, TriCor, lisinopril, holding aspirin therapy given noted left hip fracture with hematoma, add back once appropriate, does have underlying thrombocytopenia thus close observation following resumption. 6. Hypertension: Continue home regimen including Coreg, lisinopril, hydrochlorothiazide, PRN hydralazine. 7. Hyperlipidemia: Not on statin, continue TriCor. 8. Chronic Kidney Disease Stage III: Admission BUN/Cr 26/1.38, baseline renal function 1.3-1.4, stable, repeat BMP in AM. 9. Chronic normocytic anemia, AOCD: Admission hemoglobin 10.8, baseline appears 10-11, stable, trend. 10. Anxiety and depression: We will continue patient home Zoloft regimen. 11. DEMI: We will continue patient home nightly CPAP. 12. Morbid Obesity: Weight loss and lifestyle changes encouraged. 13. DVT prophylaxis: SCDs, defer chemoprophylaxis given thrombocytopenia and potential for hematoma with planned operative intervention as noted. 14. CODE status: Patient SARAH is his and living will is currently in place. Discussed CODE status at length including difference between FULL code, DNR-CCA and DNR-CC status. Following discussions about the differences in these status, requested full code status. Advanced Care Planning Face to Face Time: 16 minutes. Inpatient E&M: 27003 Init Hosp L3 Procedures: 17171 Advncd Care Plan 30 Min
[2019-09-02 23:56] VITALS: BP 126/78; PULSE 71; RESP 18; TEMP 36.7; O2SAT 97
[2019-09-03] VITALS (21 sets, daily range): BP systolic 93–161; BP diastolic 51–82; PULSE 63–85; RESP 16–19; TEMP 36.3–36.8; O2SAT 92–98; BMI 40.6; BMI 40.7
[2019-09-03] MEDS: 0.9% Normal Saline 1,000 ML 75 ML IV ×2 (02:29→17:28)
[2019-09-03] MEDS: 0.9% Saline Lock 10 ML Syringe IV (02:30)
[2019-09-03] MEDS: Morphine 2 MG/ML Syringe IV (02:30)
[2019-09-03 02:33] LABS: Magnesium 1.6 mg/dL (1.6-2.6)
[2019-09-03 03:05] LABS: Hemoglobin A1c 5.7 % (4.2-6.3)
[2019-09-03 04:24] LABS: BNP,B-Type NATRIURETIC PEPTIDE 61.2 pg/mL (0-100)
[2019-09-03 05:48] LABS: Bacteria 0 SEEN /hpf (None Seen); Mucous, Urine 0 SEEN /hpf (<or=2+); Squamous Epithelial Cells - UA 0 SEEN /hpf (0-5); White Blood Cells 0 SEEN /hpf (0-5)
[2019-09-03 05:49] LABS: Color, Urine Yellow (Yellow); Glucose, Dipstick Normal (Normal); Ketone-Dipstick Negative (Negative); Leukocyte Esterase-Dipstick Negative /ul (Negative); Nitrite-Dipstick Negative (Negative); Occult Blood-Urine 10 /ul (Negative); Protein-Dipstick Negative (Negative); Urine Bilirubin Dipstick Negative (Negative); Urine Clarity Clear (Clear); Urine Urobilinogen Normal (Normal)
[2019-09-03 05:55] LABS: Red Blood Cells-Urine 0-5 SEEN /hpf (0-5)
--- NOTE | 2019-09-03 05:55 | EKG12_ITS ---
Test Reason : AM EKG Blood Pressure : / mmHG Vent. Rate : 071 BPM Atrial Rate : 071 BPM P-R Int : 164 ms QRS Dur : 154 ms QT Int : 432 ms P-R-T Axes : 068 -16 023 degrees QTc Int : 469 ms Normal sinus rhythm Right bundle branch block Abnormal ECG Confirmed by TROY NUNEZ, RYAN ([id number]), production editor BOBO GALLOWAY ([id number]) on 09/05/2019 4:13:04 PM Referred By: DR AGUILA Confirmed By:RYAN SIMMONS MD
[2019-09-03 06:34] LABS: Absolute Lymphocyte Count 0.49 X10^3/uL (0.83-4.51); Absolute Neutrophil Count 5.8 X10^3/uL (2.0-7.7); Basophil# 0.03 X10^3/uL; Basophil% 0.4 % (0-1); Eosinophil# 0.03 X10^3/uL; Eosinophils% 0.4 % (0-5); Hematocrit 32.6 % (40-54); Lymphocyte # 0.49 X10^3/ul (4.0); Lymphocyte % 7.1 % (19-41); Mean Corp Hgb Conc 30.7 g/dL (32-36); Mean Corpuscular Hgb 28.8 pg (27.0-32.0); Mean Corpuscular Volume 93.9 fL (80-94); Mean Platelet Vol. 12.9 fl (6.2-12.0); Monocyte# 0.54 X10^3/uL; Monocyte% 7.8 % (0-10); NRBC Flagged by Analyzer 0 % (0-5); Neutrophil # 5.75 X10^3/uL (2.7-7.7); Neutrophil % 83.7 % (47-70); POSITIVE COUNT YES; POSITIVE DIFFERENTIAL YES; Platelet Count 78 K/mm3 (150-450); RBC Distribution Width CV 17.9 % (11.6-14.6); RBC Distribution Width SD 61.3 fl (35.1-43.9); Red Blood Count 3.47 M/mm3 (4.6-6.2); White Blood Count 6.9 K/mm3 (4.4-11.0)
[2019-09-03 06:35] LABS: Differential Indicated SCAN CRITERIA MET
[2019-09-03 06:43] LABS: International Normalized Ratio 1.3; Partial Thromboplast Time 31.1 Seconds (24.1-36.2); Prothrombin Time (Protime)PT. 15.2 SECONDS (11.7-14.9)
[2019-09-03] MEDS: Ipratropium/Albuterol Sulfate 3 ML AMPUL.NEB INHALATION ×2 (07:00→18:51)
[2019-09-03 07:10] LABS: AST(SGOT) 42 U/L (15-37); Alanine Aminotransfer ALT/SGPT 29 U/L (16-61); Albumin, Serum 3.1 g/dL (3.2-5.0); Alkaline Phosphatase 44 U/L (45-117); Anion Gap 6 (5-15); BUN 22 mg/dL (7-18); Chloride 113 mmol/L (98-107); Creatinine, Serum 1.22 mg/dL (0.70-1.30); EST Glomerular Filtration Rate 61 mL/min (>60); Est Glom Filt Rate - Afr Amer 73 mL/min (>60); Estimated Creatinine Clearance 48.29 ml/min; Globulin 3.2 g/dL (2.2-4.2); Glucose 143 mg/dL (74-106); Potassium 4.3 mmol/L (3.5-5.1); Protein, Total 6.3 g/dL (6.4-8.2); Sodium Level 143 mmol/L (136-145); Thyroid Stim Hormone (TSH) 1.92 uIU/mL (0.358-3.74)
--- NOTE | 2019-09-03 08:34 | ECHOCS_ITS ---
Reason For Study: SOB, AVR Procedure This was a 2D Doppler, Color Flow transthoracic echocardiogram. The study was technically difficult. Patient scanned supine due to fractured hip. Exam performed portable in patient room. Left Ventricle Normal LV size. Moderate concentric left ventricular hypertrophy. Left ventricular systolic function is normal. The estimated ejection fraction is 70 %. Transmitral and pulmonary venous doppler flow suggestive of impaired relaxation of left ventricle. Stage 1 diastolic dysfunction. No regional wall motion abnormalities noted. Right Ventricle Normal RV size. Normal systolic function. Atria Normal left atrium. Normal right atrium. Mitral Valve There is moderate mitral annular calcification. Mean transmitral valve gradient 6 mmHg. Mild mitral valve stenosis. Tricuspid Valve Normal tricuspid valve. Aortic Valve Bioprosthetic aortic valve. Stable appearing bioprosthetic aortic valve apparatus. Pulmonic Valve Normal pulmonic valve. Great Vessels Normal aortic root. The pulmonary artery is normal size. Normal inferior vena cava. Pericardium/Pleural No pericardial effusion. Medication Diluted definity 2ml given slow IV push to enhance endocardial definition. MMode/2D Measurements & Calculations LVIDd: 4.1 cm IVSd: 1.5 cm LVOT diam: 2.1 cm LVIDs: 2.3 cm LVPWd: 1.3 cm RVDd: 3.8 cm FS: 43.9 % LVOT area: 3.6 cm2 Ao root diam: 3.4 cm LAV(MOD-bp): 104.1 ml LA A4 area: 28.2 cm2 LAV(MOD-bp) Indexed: 44.0 ml/m2 LAV(MOD-sp2): 108.9 ml LAV(MOD-sp4): 97.7 ml LA dimension(2D): 5.0 cm RA A4 area: 20.7 cm2 Doppler Measurements & Calculations MV E max will: 130.4 cm/sec Lat Peak E' Will: 7.6 cm/sec Med Peak E' Will: 5.6 cm/sec MV A max will: 168.3 cm/sec E/E' lat: 17.2 E/E' med: 23.5 MV E/A: 0.78 MV V2 max: 192.8 cm/sec MV P1/2t max will: 131.3 cm/sec Ao V2 max: 217.2 cm/sec MV max P.9 mmHg MV P1/2t: 141.2 msec Ao max P.9 mmHg MV V2 mean: 118.3 cm/sec MV dec slope: 272.3 cm/sec2 Ao V2 mean: 136.6 cm/sec MV mean P.0 mmHg Ao mean P.8 mmHg MV V2 VTI: 49.3 cm MVA(P1/2t): 1.6 cm2 Ao V2 VTI: 36.4 cm MVA(VTI): 1.8 cm2 PATRIC(I,D): 2.4 cm2 PATRIC(V,D): 2.2 cm2 LV V1 max: 130.6 cm/sec SV(LVOT): 87.2 ml PA V2 max: 100.9 cm/sec LV V1 max P.8 mmHg LV V1 mean P.2 mmHg LV V1 mean: 83.2 cm/sec LV V1 VTI: 24.3 cm Interpretation Summary Normal LV size. Moderate concentric left ventricular hypertrophy. Left ventricular systolic function is normal. The estimated ejection fraction is 70 %. Stage 1 diastolic dysfunction. Mean transmitral valve gradient 6 mmHg. Stable appearing bioprosthetic aortic valve apparatus. Contrast injection was performed. Ordering Physician: Parveen Charlton Referring Physician: Ricky Bradley M.D. Performed By: Estrella Jackson RDCS
--- NOTE | 2019-09-03 08:52 | CASEMGMT ---
Assessment- SW completed assessment with patient at bedside. SW also confirmed his address and phone number as well as his contacts. Living situation- Patient lives with his in a ranch style home with 2 entry steps. PCP: Dr Bradley Specialists: Cardiology-Dr Charlton and Nephrology-Dr Joseph Pharmacy: [facility] DME: grab bars throughout the house, rollator, electric scooter, shower chair, hand held shower, raised toilet seat, 2 canes, walker, and hearing aides ADL's/IADL's: Patient is mostly independent. He bathes himself, drives, manages his own meds, cooks, and cleans. He sometimes uses his canes to get around. He uses his power scooter to go to his mailbox and back. He often uses his cane to go to the store and then when he is at the store he uses their power scooter. Past SNF/rehab: [facility] Past HH: None LW: Yes. KIMMY let him know it is not on file at [facility] POA: Yes. KIMMY let him know it is not on file at [facility]. His [place] is his HCPOA Plan: Patient said he has been to [facility] in the past when he had his knee done. He would like to go there at d/c for his rehab. KIMMY told him KIMMY will follow and assist with this when it is time. Maria T LIU MSW
[2019-09-03] MEDS: Carvedilol 12.5 MG Tablet PO ×2 (09:37→21:03)
[2019-09-03] MEDS: Allopurinol 300 MG Tablet PO (09:38)
[2019-09-03] MEDS: hydroCHLOROthiazide 12.5mg 12.5 MG PO (09:38)
[2019-09-03] MEDS: Magnesium Oxide 400 MG Tablet PO (09:39)
[2019-09-03] MEDS: Tolterodine Tartrate 2 MG CAP.SA PO (09:39)
[2019-09-03] MEDS: Fenofibrate 48 MG Tablet PO (09:39)
[2019-09-03] MEDS: Lisinopril 40 MG Tablet PO (09:39)
--- NOTE | 2019-09-03 12:31 | PN_ITS ---
<Woody Parsons - Last Filed: 09/03/19 12:31> Patient Problems: Active and Suspected Problems (Last Reviewed 04/08/19 @ 11:[address] Debbie Hines DO) Closed left hip fracture (Acute) Reason for Visit: hip fx Subjective: Pt resting comfortably in bed NAD. When he lays still he has no pain at all. Severe pain with small movements. No CP/sob/cough/fevers/chills/edema. Pt denies any LH/dizzines prior to fall. He states he has neuropathy and couldnt feel his feet so he lost balance and fell when he was turning. Vitals/I&O's: Vital Signs Temp Pulse Resp BP Pulse Ox 98.1 F 65 18 140/67 H 97 09/03/19 09:31 09/03/19 09:31 09/03/19 09:31 09/03/19 09:31 09/03/19 09:31 Oxygen Delivery Method Room Air Weight: 275 lb 5.718 oz Body Mass Index (BMI) 40.6 Intake and Output for Last 24 Hours 09/01/19 09/02/19 09/03/19 23:59 23:59 23:59 Intake Total 104 / 104 Balance 104 / 104 General: Alert, Oriented x3, Cooperative HEENT: Atraumatic, PERRLA, EOMI, Normocephalic Neck: Supple, No JVD, Negative Carotid Bruits Lungs: Clear to auscultation, Normal air movement Cardiovascular: Regular rate, No murmurs Abdomen: Bowel Sounds Present, Soft, Non Tender, Obese Extremities: No edema, Capillary Refill Less than 3 Seconds Skin: No rashes, No breakdown Musculoskeletal: No Tenderness to Palpation of Joints or Extremities Neurological: Cranial nerves II-XII grossly intact Psych/Mental Status: Normal Affect, Appropriate, Alert and oriented to time, place, person, mood and affect Microbiology Past 72 Hours 09/02/19 22:06 Mucosa - Nasopharyngeal Coronavirus COVID-19 PCR - Final Laboratory Results 09/02/19 20:55: WBC 6.2, RBC 3.66 L, Hgb 10.8 L, Hct 34.2 L, MCV 93.4, MCH 29.5, MCHC 31.6 L, RDW Std Deviation 61.7 H, RDW Coeff of Raina 18.0 H, Plt Count 89 L, MPV 12.7 H, Immature Gran % (Auto) 0.600, Neut % (Auto) 77.6 H, Lymph % (Auto) 11.0 L, Geary % (Auto) 7.0, Eos % (Auto) 2.8, Baso % (Auto) 1.0, Absolute Neuts (auto) 4.8, Absolute Lymphs (auto) 0.68 L, Nucleated RBC % 0, Differential Comment SCANNED, Platelet Estimate MOD 09/02/19 20:55: Sodium 144, Potassium 4.3, Chloride 113 H, Carbon Dioxide 25.0, Anion Gap 6, BUN 26 H, Creatinine 1.38 H, Estim Creat Clear Calc 42.69, Est GFR (MDRD) Af Amer 64, Est GFR (MDRD) Non-Af 53 L, BUN/Creatinine Ratio 18.8, Glucose 132 H, Calcium 10.1 09/02/19 20:55: Hemoglobin A1c 5.7 09/02/19 22:06: COVID-19 (JAX) Cancelled 09/03/19 02:05: Magnesium 1.6, Troponin I < 0.015 09/03/19 02:05: B-Natriuretic Peptide 61.2 09/03/19 05:40: Urine Color Yellow, Urine Clarity Clear, Urine pH 6.0, Ur Specific [place] 1.020, Urine Protein Negative, Urine Glucose (UA) Normal, Urine Ketones Negative, Urine Occult Blood 10 H, Urine Nitrite Negative, Urine Bilirubin Negative, Urine Urobilinogen Normal, Ur Leukocyte Esterase Negative, Urine RBC 0-5 SEEN, Urine WBC 0 SEEN, Ur Squamous Epith Cells 0 SEEN, Urine Bacteria 0 SEEN, Urine Mucus 0 SEEN 09/03/19 06:04: WBC 6.9, RBC 3.47 L, Hgb 10.0 L, Hct 32.6 L, MCV 93.9, MCH 28.8, MCHC 30.7 L, RDW Std Deviation 61.3 H, RDW Coeff of Raina 17.9 H, Plt Count 78 L, MPV 12.9 H, Immature Gran % (Auto) 0.600, Neut % (Auto) 83.7 H, Lymph % (Auto) 7.1 L, Geary % (Auto) 7.8, Eos % (Auto) 0.4, Baso % (Auto) 0.4, Absolute Neuts (auto) 5.8, Absolute Lymphs (auto) 0.49 L, Nucleated RBC % 0, Differential Comment COMMENT 09/03/19 06:04: PT 15.2 H, INR 1.3, APTT 31.1 09/03/19 06:04: Sodium 143, Potassium 4.3, Chloride 113 H, Carbon Dioxide 24.0, Anion Gap 6, BUN 22 H, Creatinine 1.22, Estim Creat Clear Calc 48.29, Est GFR (MDRD) Af Amer 73, Est GFR (MDRD) Non-Af 61, BUN/Creatinine Ratio 18.0, Glucose 143 H, Calcium 10.0, Total Bilirubin 0.60, AST 42 H, ALT 29, Alkaline Phosphatase 44 L, Total Protein 6.3 L, Albumin 3.1 L, Globulin 3.2, Albumin/Globulin Ratio 1.0, TSH 1.92 09/03/19 06:04: Blood Type A POSITIVE, Antibody Screen NEGATIVE Current Medications Acetaminophen (Tylenol) 650 mg PO Q6H PRN PRN PRN Reason: Pain Score 1-10/Temp > 100.7 F Al Hydroxide/Mg Hydroxide (Mylanta Ii) 30 ml PO Q6H PRN PRN PRN Reason: Gastric Burning Albuterol Sulfate (Ventolin Aerosols) 2.5 mg INHALATION Q2H PRN PRN PRN Reason: Dyspnea, wheezing Albuterol/Ipratropium (Duoneb) 3 ml INHALATION Q6HWA.RT [facility] Last Admin: 09/03/19 07:00 Dose: 3 ml Documented by: [facility] ([facility]op[facility]) [facility] Last Admin: 09/03/19 09:38 Dose: 300 mg Documented by: Carvedilol (Coreg) 12.5 mg PO BID [facility] Last Admin: 09/03/19 09:37 Dose: 12.5 mg Documented by: Dextrose (D50w Syringe) 0 gm IV X1 PRN; Protocol PRN Reason: Hypoglycemia Fenofibrate (Tricor) 48 mg PO DAILY [facility] Last Admin: 09/03/19 09:39 Dose: 48 mg Documented by: Glucagon () 1 mg IM .X1 PRN PRN Reason: Hypoglycemia Guaifenesin (Robitussin) 20 ml PO Q4H PRN PRN PRN Reason: COUGH Hydralazine HCl (Apresoline Iv) 10 mg IV Q4H PRN PRN PRN Reason: SBP > 160 Hydrochlorothiazide () 12.5 mg PO DAILY [facility] Last Admin: 09/03/19 09:38 Dose: 12.5 mg Documented by: Sodium Chloride () 250 mls @ 15 mls/hr IV .[id number] PRN PRN Reason: Saline Flush Sodium Chloride () 250 mls @ 15 mls/hr IV .[id number] PRN PRN Reason: Additional IVPB Infusion Sodium Chloride () 1,000 mls @ 75 mls/hr IV .[id number] [facility] Last Admin: 09/03/19 02:29 Dose: 75 mls/hr Documented by: Lisinopril (Zestril) 40 mg PO DAILY [facility] Last Admin: 09/03/19 09:39 Dose: 40 mg Documented by: Magnesium Hydroxide (Milk Of Magnesia) 30 ml PO DAILY PRN PRN PRN Reason: Constipation Magnesium Oxide (Mag-Ox 400) 400 mg PO DAILY [facility] Last Admin: 09/03/19 09:39 Dose: 400 mg Documented by: Melatonin (Melatonin) 3 mg PO QHS PRN PRN PRN Reason: INSOMNIA Morphine Sulfate () 2 mg IV Q3H PRN PRN PRN Reason: Pain Score 6-10/10 Last Admin: 09/03/19 02:30 Dose: 2 mg Documented by: Nitroglycerin (Nitrostat) 0.4 mg SUBLINGUAL Q5M PRN PRN Reason: CARDIAC/CHEST PAIN Ondansetron HCl (Zofran) 4 mg IV Q8H PRN PRN PRN Reason: NAUSEA/VOMITING Oxycodone HCl (Oxyir) 5 mg PO Q4H PRN PRN PRN Reason: Pain Score 4-5/10 Pantoprazole Sodium (Protonix) 40 mg PO QHS [facility] Prochlorperazine Edisylate (Compazine Iv) 5 mg IV Q4H PRN PRN PRN Reason: Breakthrough Nausea/Vomiting Psyllium Hydrophilic Mucilloid (Metamucil) 1 packet PO DAILY PRN PRN PRN Reason: Constipation Senna/Docusate Sodium (Senokot-S, Lori-Colace) 2 tablet PO BID PRN PRN PRN Reason: Constipation Sertraline HCl (Zoloft) 50 mg PO QHS [facility] Sodium Chloride () 10 - 40 ml IV UD PRN PRN Reason: SALINE FLUSH Last Admin: 09/03/19 02:30 Dose: 10 ml Documented by: Throat Lozenges (Cepacol Sore Throat Lozenge) 1 lozenge MUCOUS MEM Q2H PRN PRN PRN Reason: SORE THROAT Tolterodine Tartrate (Detrol La) 2 mg PO DAILY [facility] Last Admin: 09/03/19 09:39 Dose: 2 mg Documented by: STROKE Vital Signs/Narrative: Vital Signs Temp Pulse Resp BP Pulse Ox 09/03/19 09:31 98.1 F 65 18 140/67 H 97 09/03/19 09:10 95 Medical Necessity - Tobacco Use Smoking Status: Never smoker Tobacco Use: Non-smoker Assessment/Plan All Active Problems (Last Reviewed 04/08/19 @ 11:[address] Debbie Hines DO) UGIB (upper gastrointestinal bleed) (Acute) Closed left hip fracture (Acute) 1. Left intertroch fx with avulsion 2/2 osteopenia and mechanical fall - Echo shows EF 70%, normal LV size, moderate LV hypertrophy, St1 diastolic dysfunction, stable bioprosthetic valve. Likely to OR tomorrow. 2. Hx bioprosthic aortic valve - stable per echo 3. Asthma - no exacerbation. PRN aerosols. 4. CAD - nonobstructive. not on aspirin or statin. continue KRISTA, coreg. 5. CKDIII - stable. Repeat BMP in AM. 6. DEMI, morbid obesity - CPAP qhs 7. Anx/depression - zoloft 8. Chronic thrombocytopenia - stable. repeat CBC in AM. 9. Chronic normocytic anemia - stable 10. GERD - on PPI DVT ppx: per ortho DC planning: PTOT post op This patient was seen by Woody Parsons PA-C under the supervision of Dr. Morfin. <Genaro Morfin - Last Filed: 09/03/19 17:45> Subjective: Patient lost his balance and fell on the left hip and foot felt sudden pain severe in intensity. In ER diagnosed left intertrochanteric fracture. Discussed with the animal care taker. EKG reviewed. EKG sinus rhythm with right bundle branch block and nonspecific ST-T changes. Patient does not have chest pain or shortness of breath. Vitals/I&O's: Vital Signs Temp Pulse Resp BP Pulse Ox 97.3 F L 68 16 101/58 L 93 09/03/19 16:50 09/03/19 16:50 09/03/19 16:50 09/03/19 16:50 09/03/19 16:50 Oxygen Delivery Method Room Air Weight: 275 lb 5.718 oz Body Mass Index (BMI) 40.6 Intake and Output for Last 24 Hours 09/01/19 09/02/19 09/03/19 23:59 23:59 23:59 Intake Total 1219 / 1219 Output Total 550 / 550 Balance 669 / 669 General: Alert, Oriented x3, Cooperative HEENT: Atraumatic, PERRLA, EOMI, Normocephalic Neck: Supple, No JVD, Negative Carotid Bruits Lungs: Clear to auscultation, No rhonchi, No wheeze, No rales, Diminished - Air entry diminished in bilateral lung bases Cardiovascular: Regular rate, No murmurs Abdomen: Bowel Sounds Present, Soft, Non Tender, Obese Extremities: No edema, Capillary Refill Less than 3 Seconds Skin: No rashes, No breakdown Musculoskeletal: No Tenderness to Palpation of Joints or Extremities, Arthritic Changes, Tenderness - Tenderness in left hip region with externally rotated and abducted position Neurological: Cranial nerves II-XII grossly intact Psych/Mental Status: Normal Affect, Appropriate Microbiology Past 72 Hours 09/02/19 22:06 Mucosa - Nasopharyngeal Coronavirus COVID-19 PCR - Final Laboratory Results 09/02/19 20:55: WBC 6.2, RBC 3.66 L, Hgb 10.8 L, Hct 34.2 L, MCV 93.4, MCH 29.5, MCHC 31.6 L, RDW Std Deviation 61.7 H, RDW Coeff of Raina 18.0 H, Plt Count 89 L, MPV 12.7 H, Immature Gran % (Auto) 0.600, Neut % (Auto) 77.6 H, Lymph % (Auto) 11.0 L, Geary % (Auto) 7.0, Eos % (Auto) 2.8, Baso % (Auto) 1.0, Absolute Neuts (auto) 4.8, Absolute Lymphs (auto) 0.68 L, Nucleated RBC % 0, Differential Comment SCANNED, Platelet Estimate MOD 09/02/19 20:55: Sodium 144, Potassium 4.3, Chloride 113 H, Carbon Dioxide 25.0, Anion Gap 6, BUN 26 H, Creatinine 1.38 H, Estim Creat Clear Calc 42.69, Est GFR (MDRD) Af Amer 64, Est GFR (MDRD) Non-Af 53 L, BUN/Creatinine Ratio 18.8, Glucose 132 H, Calcium 10.1 09/02/19 20:55: Hemoglobin A1c 5.7 09/02/19 22:06: COVID-19 (JAX) Cancelled 09/03/19 02:05: Magnesium 1.6, Troponin I < 0.015 09/03/19 02:05: B-Natriuretic Peptide 61.2 09/03/19 05:40: Urine Color Yellow, Urine Clarity Clear, Urine pH 6.0, Ur Specific [place] 1.020, Urine Protein Negative, Urine Glucose (UA) Normal, Urine Ketones Negative, Urine Occult Blood 10 H, Urine Nitrite Negative, Urine Bilirubin Negative, Urine Urobilinogen Normal, Ur Leukocyte Esterase Negative, Urine RBC 0-5 SEEN, Urine WBC 0 SEEN, Ur Squamous Epith Cells 0 SEEN, Urine Bacteria 0 SEEN, Urine Mucus 0 SEEN 09/03/19 06:04: WBC 6.9, RBC 3.47 L, Hgb 10.0 L, Hct 32.6 L, MCV 93.9, MCH 28.8, MCHC 30.7 L, RDW Std Deviation 61.3 H, RDW Coeff of Raina 17.9 H, Plt Count 78 L, MPV 12.9 H, Immature Gran % (Auto) 0.600, Neut % (Auto) 83.7 H, Lymph % (Auto) 7.1 L, Geary % (Auto) 7.8, Eos % (Auto) 0.4, Baso % (Auto) 0.4, Absolute Neuts (auto) 5.8, Absolute Lymphs (auto) 0.49 L, Nucleated RBC % 0, Differential Comment COMMENT 09/03/19 06:04: PT 15.2 H, INR 1.3, APTT 31.1 09/03/19 06:04: Sodium 143, Potassium 4.3, Chloride 113 H, Carbon Dioxide 24.0, Anion Gap 6, BUN 22 H, Creatinine 1.22, Estim Creat Clear Calc 48.29, Est GFR (MDRD) Af Amer 73, Est GFR (MDRD) Non-Af 61, BUN/Creatinine Ratio 18.0, Glucose 143 H, Calcium 10.0, Total Bilirubin 0.60, AST 42 H, ALT 29, Alkaline Phosphatase 44 L, Total Protein 6.3 L, Albumin 3.1 L, Globulin 3.2, Albumin/Globulin Ratio 1.0, TSH 1.92 09/03/19 06:04: Blood Type A POSITIVE, Antibody Screen NEGATIVE Current Medications Acetaminophen (Tylenol) 650 mg PO Q6H PRN PRN PRN Reason: Pain Score 1-10/Temp > 100.7 F Al Hydroxide/Mg Hydroxide (Mylanta Ii) 30 ml PO Q6H PRN PRN PRN Reason: Gastric Burning Albuterol Sulfate (Ventolin Aerosols) 2.5 mg INHALATION Q2H PRN PRN PRN Reason: Dyspnea, wheezing Albuterol/Ipratropium (Duoneb) 3 ml INHALATION Q6HWA.RT [facility] Last Admin: 09/03/19 13:20 Dose: Not Given Documented by: Allop[facility] ([facility]oprim) [facility] Last Admin: 09/03/19 09:38 Dose: 300 mg Documented by: Carvedilol (Coreg) 12.5 mg PO BID [facility] Last Admin: 09/03/19 09:37 Dose: 12.5 mg Documented by: Dextrose (D50w Syringe) 0 gm IV X1 PRN; Protocol PRN Reason: Hypoglycemia Enoxaparin Sodium (Lovenox) 30 mg SC DAILY@0600 [facility] Fenofibrate (Tricor) 48 mg PO DAILY [facility] Last Admin: 09/03/19 09:39 Dose: 48 mg Documented by: Glucagon () 1 mg IM .X1 PRN PRN Reason: Hypoglycemia Guaifenesin (Robitussin) 20 ml PO Q4H PRN PRN PRN Reason: COUGH Hydralazine HCl (Apresoline Iv) 10 mg IV Q4H PRN PRN PRN Reason: SBP > 160 Hydrochlorothiazide () 12.5 mg PO DAILY [facility] Last Admin: 09/03/19 09:38 Dose: 12.5 mg Documented by: Sodium Chloride () 250 mls @ 15 mls/hr IV .[id number] PRN PRN Reason: Saline Flush Sodium Chloride () 250 mls @ 15 mls/hr IV .[id number] PRN PRN Reason: Additional IVPB Infusion Sodium Chloride () 1,000 mls @ 75 mls/hr IV .[id number] [facility] Last Admin: 09/03/19 17:28 Dose: 75 mls/hr Documented by: Cefazolin Sodium () 1 gm in 50 mls @ 150 mls/hr IV Q8H [facility] Stop: 09/04/19 08:19 Lisinopril (Zestril) 40 mg PO DAILY [facility] Last Admin: 09/03/19 09:39 Dose: 40 mg Documented by: Magnesium Hydroxide (Milk Of Magnesia) 30 ml PO DAILY PRN PRN PRN Reason: Constipation Magnesium Oxide (Mag-Ox 400) 400 mg PO DAILY [facility] Last Admin: 09/03/19 09:39 Dose: 400 mg Documented by: Melatonin (Melatonin) 3 mg PO QHS PRN PRN PRN Reason: INSOMNIA Morphine Sulfate () 2 mg IV Q3H PRN PRN PRN Reason: Pain Score 6-10/10 Last Admin: 09/03/19 02:30 Dose: 2 mg Documented by: Nitroglycerin (Nitrostat) 0.4 mg SUBLINGUAL Q5M PRN PRN Reason: CARDIAC/CHEST PAIN Ondansetron HCl (Zofran) 4 mg IV Q8H PRN PRN PRN Reason: NAUSEA/VOMITING Oxycodone HCl (Oxyir) 5 mg PO Q4H PRN PRN PRN Reason: Pain Score 4-5/10 Pantoprazole Sodium (Protonix) 40 mg PO QHS [facility] Prochlorperazine Edisylate (Compazine Iv) 5 mg IV Q4H PRN PRN PRN Reason: Breakthrough Nausea/Vomiting Psyllium Hydrophilic Mucilloid (Metamucil) 1 packet PO DAILY PRN PRN PRN Reason: Constipation Senna/Docusate Sodium (Senokot-S, Lori-Colace) 2 tablet PO BID PRN PRN PRN Reason: Constipation Sertraline HCl (Zoloft) 50 mg PO QHS [facility] Sodium Chloride () 10 - 40 ml IV UD PRN PRN Reason: SALINE FLUSH Last Admin: 09/03/19 02:30 Dose: 10 ml Documented by: Throat Lozenges (Cepacol Sore Throat Lozenge) 1 lozenge MUCOUS MEM Q2H PRN PRN PRN Reason: SORE THROAT Tolterodine Tartrate (Detrol La) 2 mg PO DAILY [facility] Last Admin: 09/03/19 09:39 Dose: 2 mg Documented by: STROKE Vital Signs/Narrative: Vital Signs Temp Pulse Resp BP Pulse Ox 09/03/19 16:50 97.3 F L 68 16 101/58 L 93 Assessment/Plan This patient was seen in conjunction with Woody PETERS. I have independently interviewed and examined the patient and reviewed pertinent history, examination findings, laboratory and plan of management. I have reviewed the note and agree with the documented findings with the few additional points. In brief, patient is 79-year-old gentleman admitted with severe left hip pain after fall with x-ray finding consistent with a complicated, pathological: Left inter-trochanteric fracture hip with avulsion of lesser and greater trochanter with adjacent soft tissue hematoma with osteopenia. EKG shows normal sinus rhythm with right bundle branch block. Discussed with animal care taker. Patient has history of aortic valve replacement, bioprosthetic. 2D echo was done. Interpretation Summary Normal LV size. Moderate concentric left ventricular hypertrophy. Left ventricular systolic function is normal. The estimated ejection fraction is 70 %. Stage 1 diastolic dysfunction. Mean transmitral valve gradient 6 mmHg. Stable appearing bioprosthetic aortic valve apparatus. Contrast injection was performed. Overall perioperative risk evaluation was done, NSQIP 10.7% / 10.9% therefore below average but patient has significant limited exercise capacity. Patient usually walks on Rollator/walker or a scooter for long distance. Patient can climb 10 steps with help of railing. Patient had left calf elemental renal done. Repeat H&H in evening. Other comorbidities include coronary artery disease, nonobstructive not on aspirin, stable asthma, CKD stage III, obstructive sleep apnea on CPAP, anxiety and depression and chronic thrombocytopenia. Patient platelet count is stable, less than 100,000 since February 2018. Most recent 78,000 today. Chronic normocytic normochromic anemia. Monitor CBC and BMP daily. On Lovenox 30 mg subcu daily for DVT prophylaxis. Total time of the visit including total time spent in counseling or coordination of care, (more than 50% of the total time, spent in obtaining medical information from nurses and other ancillary care providers), discussion with consultants, review of labs and imaging is 30 minutes I have discussed my assessment with Woody PEETRS and orders have been reviewed. Inpatient E&M: 97333 Subs Hosp L3
--- NOTE | 2019-09-03 12:41 | NURSING ---
pt has talked to and she is aware that he is going to surgerry
--- NOTE | 2019-09-03 15:26 | CON.PCM_ITS ---
Reason for Consult Date of Consultation: 09/03/19 Reason for Consultation: Left hip fracture, requested by Dr. Menjivar History of Present Illness: The patient is a 79 year old M with history of multiple medical comorbidities including polycystic kidney disease, hypertension obesity and sleep apnea. Patient also reports having neuropathy. He uses a cane regularly and has slowly progressed to a Rollator and motor scooter more regularly as of late. He lives at home with his . Patient was getting out of the car when he twisted and fell on his left hip yesterday. He was unable to bear weight. Currently is 10 out of 10 pain. Pain is worse with motion, better with immobilization. No associated numbness and tingling. He was admitted to the hospital last evening and cleared for surgery. Past Medical History Past Medical History (Chronic Problems): Chronic Problems (Last Reviewed 04/08/19 @ 11:[address] 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 Debbie Hines DO) Atherosclerosis of coronary artery of [place] heart without angina pectoris (Chronic) I25.10 Nonrheumatic aortic (valve) stenosis (Chronic) I35.0 AVR w/ #25 Shannan-Fisher 01/18/2011 Essential (primary) hypertension (Chronic) I10 Hyperlipemia (Chronic) E78.5 Right bundle branch block (RBBB) (Chronic) I45.10 Anemia in chronic kidney disease N18.9, D63.1 Asthma J45.909 Chronic kidney disease, stage 3 N18.3 GERD (gastroesophageal reflux disease) K21.9 Gout M10.9 History of splenomegaly Z87.898 Multiple lung nodules R91.[address] 2010 Obesity E66.9 Obstructive sleep apnea G47.33 Osteoarthritis M19.90 Polycystic kidney disease Q61.3 Thrombocytopenia D69.6 Allergies acetaminophen [From Vicodin] Allergy (Verified 09/02/19 20:30) Other hydrocodone [From Vicodin] Allergy (Verified 09/02/19 20:30) Other strawberry Allergy (Verified 09/02/19 20:30) Hives venom-honey bee [bee venom (honey bee)] Allergy (Verified 09/02/19 20:30) Anaphylaxis Home Medications: Ambulatory Orders Medication Instructions Recorded Allopurinol [Zyloprim] 300 mg PO DAILY 04/12/16 Fenofibrate [Tricor] 48 mg PO DAILY 04/12/16 Lisinopril [Zestril] 40 mg PO DAILY 04/12/16 Magnesium Oxide [Mag-Ox 400] 400 mg PO DAILY 04/12/16 Multivit-Min/FA/Lycopen/Lutein 1 ea PO DAILY 04/12/16 [Centrum Silver Tablet] Fluticasone/Vilanterol [Breo 1 ea IH DAILY 02/19/18 Ellipta 200-25 Mcg INH] Sertraline HCl [Zoloft] 50 mg PO QHS 02/19/18 carvedilol 12.5 mg tablet 12.5 mg PO BID 02/27/19 Oxybutynin Chloride [Oxybutynin 10 mg PO DAILY 04/08/19 Chloride ER] Omeprazole [Prilosec] 40 mg PO QHS #60 cap 04/09/19 Hydrochlorothiazide 12.5 mg PO DAILY 09/02/19 Surgical History: Surgical History (Last Reviewed 04/08/19 @ 11:[address] Debbie Hines, DO) History of aortic valve replacement with bioprosthetic valve (Chronic) Onset Date: 01/18/11 Z95.3 AVR w/ #25 Shannan-Fisher 01/18/2011 History of knee replacement Z96.659 History of left heart catheterization Onset Date: 01/05/11 Z98.890 History of umbilical hernia repair Z98.890, Z87.19 Surgical History: herniorrhaphy - Umbilical hernia repair., total knee arthroplasty - Left total knee replacement., - - Aortic valve replacement with bioprosthetic valve. Psychiatric History: Anxiety, Depression Lives: Spouse/ Significant Other Smoking Status: Never smoker Tobacco Use: Non-smoker Alcohol: None Drugs: None - *Family History Maternal Family History: Family History (Last Reviewed 02/27/19 @ 13:[address] Parveen Charlton MD) Father CAD (coronary artery disease) Brother Diabetes Mother Heart disease History Items: Diabetes, Heart Disease Paternal Family History: Family History (Last Reviewed 02/27/19 @ 13:[address] Parveen Charlton MD) Father CAD (coronary artery disease) Brother Diabetes Mother Heart disease History Items: Cancer, High Cholesterol, Heart Disease, Hypertension Review of Systems Constitutional: Denies: Chills, Fever, Weight Change HEENT: Denies: Head Aches, Sinus Congestion, Sinus Drainage Cardiovascular: Denies: Chest Pain, Palpitations Respiratory: Denies: Cough, Shortness of breath at rest, Sputum production Gastrointestinal: Denies: Abdominal Pain, Nausea, Vomiting Genitourinary: Denies: Dysuria Musculoskeletal: Reports: Joint Pain, Joint Tenderness Skin: Denies: Rash, Wounds Neurological: Reports: - - Chronic neuropathy. Denies: Focal weakness, Numbness, Tingling Psychiatric: Denies: Anxiety, Depression, Homicidal Ideations, Suicidal Ideations Hematologic/ Lymphatic: Denies: Easy Bruising, Easy Bleeding Patient Problems: Active and Suspected Problems (Last Reviewed 04/08/19 @ 11:[address] Debbie Hines DO) Closed left hip fracture (Acute) Objective: Left hip x-rays show intertrochanteric hip fracture displaced. - Physical Exam Vitals/I&O's: Vital Signs Temp Pulse Resp BP Pulse Ox 97.6 F L 66 16 106/53 L 95 09/03/19 12:26 09/03/19 12:35 09/03/19 12:26 09/03/19 12:26 09/03/19 12:26 Oxygen Delivery Method Room Air Weight: 275 lb 5.718 oz Body Mass Index (BMI) 40.6 Intake and Output for Last 24 Hours 09/01/19 09/02/19 09/03/19 23:59 23:59 23:59 Intake Total 104 / 104 Output Total 550 / 550 Balance -446 / -446 General: Alert, Oriented x3, Cooperative Neck: No JVD Lungs: - - Nonlabored breathing Cardiovascular: - - Regular pulse rate Abdomen: Non-Distended Extremities: - - Left lower extremity: Skin clean, dry, and intact. Limb is shortened and externally rotated Motor is intact dorsiflexion, EHL and plantar flexion. Sensation is intact to light touch saphenous, candida,l superficial peroneal, deep peroneal and tibial distributions. Calves are soft and supple. Skin: No rashes Neurological: Cranial nerves II-XII grossly intact Psych/Mental Status: Normal Affect Microbiology Past 72 Hours 09/02/19 22:06 Mucosa - Nasopharyngeal Coronavirus COVID-19 PCR - Final Laboratory Results 09/02/19 20:55: WBC 6.2, RBC 3.66 L, Hgb 10.8 L, Hct 34.2 L, MCV 93.4, MCH 29.5, MCHC 31.6 L, RDW Std Deviation 61.7 H, RDW Coeff of Raina 18.0 H, Plt Count 89 L, MPV 12.7 H, Immature Gran % (Auto) 0.600, Neut % (Auto) 77.6 H, Lymph % (Auto) 11.0 L, [place] % (Auto) 7.0, Eos % (Auto) 2.8, Baso % (Auto) 1.0, Absolute Neuts (auto) 4.8, Absolute Lymphs (auto) 0.68 L, Nucleated RBC % 0, Differential Comment SCANNED, Platelet Estimate MOD 09/02/19 20:55: Sodium 144, Potassium 4.3, Chloride 113 H, Carbon Dioxide 25.0, Anion Gap 6, BUN 26 H, Creatinine 1.38 H, Estim Creat Clear Calc 42.69, Est GFR (MDRD) Af Amer 64, Est GFR (MDRD) Non-Af 53 L, BUN/Creatinine Ratio 18.8, Glucose 132 H, Calcium 10.1 09/02/19 20:55: Hemoglobin A1c 5.7 09/02/19 22:06: COVID-19 ([facility]AX) Cancelled 09/03/19 02:05: Magnesium 1.6, Troponin I < 0.015 09/03/19 02:05: B-Natriuretic Peptide 61.2 09/03/19 05:40: Urine Color Yellow, Urine Clarity Clear, Urine pH 6.0, Ur Specific Mitchell 1.020, Urine Protein Negative, Urine Glucose (UA) Normal, Urine Ketones Negative, Urine Occult Blood 10 H, Urine Nitrite Negative, Urine Bilirubin Negative, Urine Urobilinogen Normal, Ur Leukocyte Esterase Negative, Urine RBC 0-5 SEEN, Urine WBC 0 SEEN, Ur Squamous Epith Cells 0 SEEN, Urine Bacteria 0 SEEN, Urine Mucus 0 SEEN 09/03/19 06:04: WBC 6.9, RBC 3.47 L, Hgb 10.0 L, Hct 32.6 L, MCV 93.9, MCH 28.8, MCHC 30.7 L, RDW Std Deviation 61.3 H, RDW Coeff of Raina 17.9 H, Plt Count 78 L, MPV 12.9 H, Immature Gran % (Auto) 0.600, Neut % (Auto) 83.7 H, Lymph % (Auto) 7.1 L, [place] % (Auto) 7.8, Eos % (Auto) 0.4, Baso % (Auto) 0.4, Absolute Neuts (auto) 5.8, Absolute Lymphs (auto) 0.49 L, Nucleated RBC % 0, Differential Comment COMMENT 09/03/19 06:04: PT 15.2 H, INR 1.3, APTT 31.1 09/03/19 06:04: Sodium 143, Potassium 4.3, Chloride 113 H, Carbon Dioxide 24.0, Anion Gap 6, BUN 22 H, Creatinine 1.22, Estim Creat Clear Calc 48.29, Est GFR (MDRD) Af Amer 73, Est GFR (MDRD) Non-Af 61, BUN/Creatinine Ratio 18.0, Glucose 143 H, Calcium 10.0, Total Bilirubin 0.60, AST 42 H, ALT 29, Alkaline Phosphatase 44 L, Total Protein 6.3 L, Albumin 3.1 L, Globulin 3.2, Albumin/Globulin Ratio 1.0, TSH 1.92 09/03/19 06:04: Blood Type A POSITIVE, Antibody Screen NEGATIVE Current Medications Acetaminophen (Tylenol) 650 mg PO Q6H PRN PRN PRN Reason: Pain Score 1-10/Temp > 100.7 F Al Hydroxide/Mg Hydroxide (Mylanta Ii) 30 ml PO Q6H PRN PRN PRN Reason: Gastric Burning Albuterol Sulfate (Ventolin Aerosols) 2.5 mg INHALATION Q2H PRN PRN PRN Reason: Dyspnea, wheezing Albuterol/Ipratropium (Duoneb) 3 ml INHALATION Q6HWA.RT [facility] Last Admin: 09/03/19 13:20 Dose: Not Given Documented by: Allopurinol (Zyloprim) 300 mg PO DAILYCM [facility] Last Admin: 09/03/19 09:38 Dose: 300 mg Documented by: Carvedilol (Coreg) 12.5 mg PO BID [facility] Last Admin: 09/03/19 09:37 Dose: 12.5 mg Documented by: Dextrose (D50w Syringe) 0 gm IV X1 PRN; Protocol PRN Reason: Hypoglycemia Fenofibrate (Tricor) 48 mg PO DAILY [facility] Last Admin: 09/03/19 09:39 Dose: 48 mg Documented by: Glucagon () 1 mg IM .X1 PRN PRN Reason: Hypoglycemia Guaifenesin (Robitussin) 20 ml PO Q4H PRN PRN PRN Reason: COUGH Hydralazine HCl (Apresoline Iv) 10 mg IV Q4H PRN PRN PRN Reason: SBP > 160 Hydrochlorothiazide () 12.5 mg PO DAILY [facility] Last Admin: 09/03/19 09:38 Dose: 12.5 mg Documented by: Sodium Chloride () 250 mls @ 15 mls/hr IV .[id number] PRN PRN Reason: Saline Flush Sodium Chloride () 250 mls @ 15 mls/hr IV .[id number] PRN PRN Reason: Additional IVPB Infusion Sodium Chloride () 1,000 mls @ 75 mls/hr IV .[id number] [facility] Last Admin: 09/03/19 02:29 Dose: 75 mls/hr Documented by: Cefazolin Sodium 3 gm/ Sodium (Chloride) 115 mls @ 150 mls/hr IV X1 ONE Stop: 09/03/19 16:06 Lisinopril (Zestril) 40 mg PO DAILY [facility] Last Admin: 09/03/19 09:39 Dose: 40 mg Documented by: Magnesium Hydroxide (Milk Of Magnesia) 30 ml PO DAILY PRN PRN PRN Reason: Constipation Magnesium Oxide (Mag-Ox 400) 400 mg PO DAILY [facility] Last Admin: 09/03/19 09:39 Dose: 400 mg Documented by: Melatonin (Melatonin) 3 mg PO QHS PRN PRN PRN Reason: INSOMNIA Morphine Sulfate () 2 mg IV Q3H PRN PRN PRN Reason: Pain Score 6-10/10 Last Admin: 09/03/19 02:30 Dose: 2 mg Documented by: Nitroglycerin (Nitrostat) 0.4 mg SUBLINGUAL Q5M PRN PRN Reason: CARDIAC/CHEST PAIN Ondansetron HCl (Zofran) 4 mg IV Q8H PRN PRN PRN Reason: NAUSEA/VOMITING Oxycodone HCl (Oxyir) 5 mg PO Q4H PRN PRN PRN Reason: Pain Score 4-5/10 Pantoprazole Sodium (Protonix) 40 mg PO QHS [facility] Prochlorperazine Edisylate (Compazine Iv) 5 mg IV Q4H PRN PRN PRN Reason: Breakthrough Nausea/Vomiting Psyllium Hydrophilic Mucilloid (Metamucil) 1 packet PO DAILY PRN PRN PRN Reason: Constipation Senna/Docusate Sodium (Senokot-S, Lori-Colace) 2 tablet PO BID PRN PRN PRN Reason: Constipation Sertraline HCl (Zoloft) 50 mg PO QHS [facility] Sodium Chloride () 10 - 40 ml IV UD PRN PRN Reason: SALINE FLUSH Last Admin: 09/03/19 02:30 Dose: 10 ml Documented by: Throat Lozenges (Cepacol Sore Throat Lozenge) 1 lozenge MUCOUS MEM Q2H PRN PRN PRN Reason: SORE THROAT Tolterodine Tartrate (Detrol La) 2 mg PO DAILY [facility] Last Admin: 09/03/19 09:39 Dose: 2 mg Documented by: Assessment/Plan All Active Problems (Last Reviewed 04/08/19 @ 11:[address] Debbie Hines, DO) UGIB (upper gastrointestinal bleed) (Acute) Closed left hip fracture (Acute) Left hip intertrochanteric fracture. Treatment options were discussed the patient. This included nonoperative and operative treatment. I recommended a cephalo-medullary nail for the left hip. Risk and benefits of the procedure were discussed the patient could not limp to blood loss, DVTs, PEs, nervous damage, infection, the risk of anesthesia including loss of life. We also discussed natural history and the likelihood patient could lose rhythm mobility. Patient demonstrates an understanding is able sign informed consent. 3 g of Ancef will be ordered on-call to the operating room. Plan is for surgery this evening. [facility] Office:
--- NOTE | 2019-09-03 15:35 | RAD_ITS ---
STUDY: X-RAY - LEFT HIP REASON FOR EXAM: Male, 79 years old. IM RODDING, INTERTAN NAIL BILLS and amp; NEPHEW, 5 INTRAOPERATIVE C-ARM PICTURES, 80.8sec FLUORO TIME, 38.49mGy TECHNIQUE: 6 limited intraoperative views of the left hip. COMPARISON: 09/02/2019. FINDINGS: These are limited spot fluoroscopic intraoperative views for evaluation. The intertrochanteric and subtrochanteric fracture left hip is again noted. There is avulsion of the greater and lesser trochanters. There is placement of a fixation martha and femoral screws with gross anatomic alignment. RAD/Hip Min 2 Views (Portable) IMPRESSION: Limited spot intraoperative views of left hip fracture with placement of compression screws and femoral martha as above Electronically Signed: Moe Castro, at 16:49 EDT Tel , Service support ,
--- NOTE | 2019-09-03 16:24 | PCM.OPRPT ---
Report of Operation Date of Procedure: 09/03/19 Pre-Operative Diagnosis: Left intertrochanteric hip fracture Post-Operative Diagnosis: Left intertrochanteric hip fracture Surgery/Procedure Performed:: Left hip cephalo-medullary nail Description of Surgical Findings:: Stable fracture reduction customer operations representative: Fuad Arenas Type of Anesthesia:: General Anesthesiologist: Kunal Dolan Special Medications: 3 g Ancef Estimated Blood Loss (mL): 200 Fluids Replaced: 800 mL crystalloid Description of Procedure: Components used: 1. [employer]hew InterTAN nail short 125 degree nail 2. [employer] InterTAN lag screw 100 mm 3. [employer]hew 32.5 millimeter interlocking screw Brief history operative indications: 79-year-old male with extensive medical history presented after fall yesterday with intertrochanteric hip fracture on the left side. After extensive discussion including risk and benefits which include but are not limited to blood loss, PEs, DVTs, neurovascular damage, nonunions, malunions and screw cut out patient has elected to proceed with a l cephalo-medullary nail. Procedure: On the date of the procedure the patient's l hip was marked in the preoperative area and patient was taken back to the operating room. Anesthetic was administered and patient was transferred to the table were all bony prominence identified well-padded and the ipsilateral arm was placed across the chest. Patient was then translated down to the perineal post and the operative leg was placed in the boot while the nonoperative leg was lowered and secured. The operative leg was placed in traction and internal rotation and live fluoroscopy was used to verify adequate reduction. The operative leg was then prepped in a sterile fashion with chlorhexidine while the surgeon scrubbed. Upon reentering the room the operative extremity was draped in the standard orthopedic fashion. Skin incision was marked and a timeout was called. Everyone agreed upon the side, the site, the procedure be performed, patient's identity, and antibiotics given. Skin incision was made and the position of the entry guidepin was verified using live fluoroscopy. Once we were satisfied with our position the pin was advanced in the soft tissue protector was placed over the pin. The entry reamer was then advanced into the proximal portion of the femur. A guidewire was placed down the intramedullary canal and fluoroscopy was used to verify that the anterior cortex had not been breached distally as well as satisfactory distal positioning. We then used live fluoroscopy to verify the length of the nail and a [employer] InterTAN short 125 degree neck angle nail. The nail was then attached to the cash manager and inserted into the intramedullary canal. The appropriate depth was verified and the skin incision for the lag screw was made. The lag screw guidepin was then placed under live fluoroscopy and when a satisfactory position was obtained the length of the screw was measured and the standard technique to drill for the lag screws was performed. The anti-rotation bar was used. At this time a 100 mm lag screw was selected with its corresponding compression screw. The lag screw was then passed and traction was left off the leg. The compression screw was then passed and the fracture was compressed. The final position of the lag screw was verified under fluoroscopy. Attention was then turned to the distal portion of the nail and the distal locking guide technique was used to locate the distal interlocking screw and a 32.5mm distal interlocking screw was placed using this technique. Live fluoroscopy was used to verify the position of the interlocking screw and the final position of the hip components. Once we were satisfied with our positioning the wounds were copiously irrigated out with normal saline skin was closed with 2-0 Vicryl and jorge luis for final skin closure. A sterile dressing was placed with Xeroform. Patient was then awakened by anesthesia transferred from the fracture table back to their hospital bed and transferred to the PACU for recovery. Postoperative plan: Patient will be weight-bear as tolerated. Follow up in the office in 2 weeks. Grafts/Implants Used: [employer]hew InterTAN - Complications No intraoperative complications - Admit VTE Documentation VTE Present on Admission: No VTE Mechan Device Prophylaxis: SCD's, Thigh High TUYET Hose VTE Pharm Prophylaxis ordered?: Yes
--- NOTE | 2019-09-03 17:03 | RAD_ITS ---
STUDY: X-RAY - PELVIS AND LEFT HIP REASON FOR EXAM: Male, 79 years old. LEFT HIP POST OP TECHNIQUE: 2 views of the pelvis and hip. COMPARISON: Radiographs. Same day FINDINGS: There is no change when compared to prior intraoperative exam. There is an intertrochanteric fracture of the left hip with avulsion of the lesser trochanter. Fracture extends into the subtrochanteric region. Fracture is in gross anatomic alignment. There are left femoral compression screws and femoral martha in place. There is mild soft tissue edema. RAD/Hip Min 2 Views (Portable) IMPRESSION: Postoperative left hip fracture as above Electronically Signed: Moe Castro, at 18:03 EDT Tel , Service support ,
[2019-09-03] MEDS: Sertraline 50 MG Tablet PO (21:03)
[2019-09-03] MEDS: Pantoprazole Sodium 40 MG Tablet PO (21:03)
[2019-09-03 21:27] LABS: Hematocrit 32.1 % (40-54); Hemoglobin 9.6 g/dL (13.0-16.5)
[2019-09-03] MEDS: Acetaminophen 325 MG Tablet 650 MG PO (22:47)
[2019-09-03] MEDS: Cefazolin 1 GM/50 ML BAG IV (23:18)
[2019-09-04] VITALS (17 sets, daily range): BP systolic 89–140; BP diastolic 44–70; PULSE 55–95; RESP 18–20; TEMP 36.4–37.5; O2SAT 93–99; BMI 40.7
--- NOTE | 2019-09-04 00:19 | CPS ---
added o2 in line with home bipap for low sat
[2019-09-04] MEDS: 0.9% Normal Saline 1,000 ML 999 ML IV (04:23)
[2019-09-04] MEDS: Enoxaparin 30 MG/0.3 ML Syringe SC (05:44)
[2019-09-04] MEDS: Acetaminophen 325 MG Tablet 650 MG PO ×2 (05:44→22:02)
--- NOTE | 2019-09-04 06:12 | NURSING ---
Patient stood at side of bed with assist of staff and walker, patient tolerated well.
[2019-09-04] MEDS: Ipratropium/Albuterol Sulfate 3 ML AMPUL.NEB INHALATION ×2 (06:37→19:05)
[2019-09-04 07:01] LABS: Absolute Lymphocyte Count 0.58 X10^3/uL (0.83-4.51); Absolute Neutrophil Count 5.2 X10^3/uL (2.0-7.7); Basophil# 0.03 X10^3/uL; Basophil% 0.5 % (0-1); Differential Indicated SCAN CRITERIA MET; Eosinophil# 0.11 X10^3/uL; Eosinophils% 1.7 % (0-5); Hematocrit 29.5 % (40-54); Hemoglobin 8.8 g/dL (13.0-16.5); Lymphocyte # 0.58 X10^3/ul (4.0); Mean Corp Hgb Conc 29.8 g/dL (32-36); Mean Corpuscular Hgb 28.7 pg (27.0-32.0); Mean Corpuscular Volume 96.1 fL (80-94); Mean Platelet Vol. 12.2 fl (6.2-12.0); Monocyte% 7.8 % (0-10); NRBC Flagged by Analyzer 0 % (0-5); Neutrophil # 5.21 X10^3/uL (2.7-7.7); Neutrophil % 80.7 % (47-70); POSITIVE COUNT YES; POSITIVE DIFFERENTIAL YES; Platelet Count 75 K/mm3 (150-450); RBC Distribution Width SD 62.5 fl (35.1-43.9); Red Blood Count 3.07 M/mm3 (4.6-6.2); White Blood Count 6.5 K/mm3 (4.4-11.0)
[2019-09-04 07:15] LABS: Atypical Lymphocyte RARE %; Differential Comment SCANNED; Polychromasia RARE
[2019-09-04 07:33] LABS: Anion Gap 5 (5-15); BUN 23 mg/dL (7-18); BUN/Creat Ratio 14.2 RATIO (10-20); Calcium,Total 9.3 mg/dL (8.5-10.1); Chloride 114 mmol/L (98-107); Creatinine, Serum 1.62 mg/dL (0.70-1.30); EST Glomerular Filtration Rate 44 mL/min (>60); Est Glom Filt Rate - Afr Amer 53 mL/min (>60); Estimated Creatinine Clearance 36.37 ml/min; Glucose 124 mg/dL (74-106); Potassium 4.3 mmol/L (3.5-5.1); Sodium Level 144 mmol/L (136-145)
[2019-09-04] MEDS: Cefazolin 1 GM/50 ML BAG IV (08:29)
[2019-09-04] MEDS: 0.9% Normal Saline 1,000 ML 125 ML IV ×2 (08:39→22:08)
[2019-09-04] MEDS: Allopurinol 300 MG Tablet PO (08:40)
[2019-09-04] MEDS: Tolterodine Tartrate 2 MG CAP.SA PO (08:40)
[2019-09-04] MEDS: Magnesium Oxide 400 MG Tablet PO (08:41)
[2019-09-04] MEDS: Fenofibrate 48 MG Tablet PO (08:41)
[2019-09-04 08:50] LABS: Magnesium 1.8 mg/dL (1.6-2.6)
--- NOTE | 2019-09-04 11:05 | PCM.PN.HOSP ---
<Woody Parsons - Last Filed: 09/04/19 11:05> Patient Problems: Active and Suspected Problems (Last Reviewed 04/08/19 @ 11:[address] Debbie Hines DO) Closed left hip fracture (Acute) Reason for Visit: left hip fx Subjective: Pain is tolerable. Pt ambulated. 5 beats NSVT overnight, and borderline low BP this AM. No CP. No palp. No SOB. No LH/dizziness even when up ambulating this AM. Pt eating breakfast with no nausea or vomiting. Vitals/I&O's: Vital Signs Temp Pulse Resp BP Pulse Ox 98.0 F 90 18 120/70 94 09/04/19 08:35 09/04/19 09:00 09/04/19 08:35 09/04/19 08:35 09/04/19 08:35 Oxygen Flow Rate (L/min) 3 Oxygen Delivery Method Room Air Weight: 275 lb 5.718 oz Body Mass Index (BMI) 40.6 Intake and Output for Last 24 Hours 09/02/19 09/03/19 09/04/19 23:59 23:59 23:59 Intake Total 1826.5 / 1826.5 210.25 / 2105.25 Output Total 1065 / 1065 100 / 100 Balance 761.5 / 761.5 / General: Alert, Oriented x3, Cooperative HEENT: Atraumatic, PERRLA, EOMI, Normocephalic Neck: Supple, No JVD, Negative Carotid Bruits Lungs: Clear to auscultation, Normal air movement Cardiovascular: Regular rate, No murmurs Abdomen: Bowel Sounds Present, Soft, Non Tender, Obese Extremities: No edema, Capillary Refill Less than 3 Seconds Skin: No rashes, No breakdown Musculoskeletal: No Tenderness to Palpation of Joints or Extremities Neurological: Cranial nerves II-XII grossly intact Psych/Mental Status: Normal Affect, Appropriate Microbiology Past 72 Hours 09/02/19 22:06 Mucosa - Nasopharyngeal Coronavirus COVID-19 PCR - Final Laboratory Results 09/03/19 21:10: Hgb 9.6 L, Hct 32.1 L 09/04/19 06:20: WBC 6.5, RBC 3.07 L, Hgb 8.8 L, Hct 29.5 L, MCV 96.1 H, MCH 28.7, MCHC 29.8 L, RDW Std Deviation 62.5 H, RDW Coeff of Raina 18.0 H, Plt Count 75 L, MPV 12.2 H, Immature Gran % (Auto) 0.300, Neut % (Auto) 80.7 H, Lymph % (Auto) 9.0 L, [place] % (Auto) 7.8, Eos % (Auto) 1.7, Baso % (Auto) 0.5, Absolute Neuts (auto) 5.2, Absolute Lymphs (auto) 0.58 L, Nucleated RBC % 0, Differential Comment SCANNED, Atypical Lymphocytes RARE, Polychromasia RARE 09/04/19 06:20: Sodium 144, Potassium 4.3, Chloride 114 H, Carbon Dioxide 25.0, Anion Gap 5, BUN 23 H, Creatinine 1.62 H, Estim Creat Clear Calc 36.37, Est GFR (MDRD) Af Amer 53 L, Est GFR (MDRD) Non-Af 44 L, BUN/Creatinine Ratio 14.2, Glucose 124 H, Calcium 9.3 09/04/19 06:20: Magnesium 1.8 Current Medications Acetaminophen (Tylenol) 650 mg PO Q6H PRN PRN PRN Reason: Pain Score 1-10/Temp > 100.7 F Last Admin: 09/04/19 05:44 Dose: 650 mg Documented by: Al Hydroxide/Mg Hydroxide (Mylanta Ii) 30 ml PO Q6H PRN PRN PRN Reason: Gastric Burning Albuterol Sulfate (Ventolin Aerosols) 2.5 mg INHALATION Q2H PRN PRN PRN Reason: Dyspnea, wheezing Albuterol/Ipratropium (Duoneb) 3 ml INHALATION Q6HWA.RT [facility] Last Admin: 09/04/19 06:37 Dose: 3 ml Documented by: Allopurinol (Zyloprim) 300 mg PO DAILYCM [facility] Last Admin: 09/04/19 08:40 Dose: 300 mg Documented by: Carvedilol (Coreg) 12.5 mg PO BID [facility] Last Admin: 09/04/19 08:41 Dose: Not Given Documented by: Dextrose (D50w Syringe) 0 gm IV X1 PRN; Protocol PRN Reason: Hypoglycemia Enoxaparin Sodium (Lovenox) 30 mg SC DAILY@0600 [facility] Last Admin: 09/04/19 05:44 Dose: 30 mg Documented by: Fenofibrate (Tricor) 48 mg PO DAILY [facility] Last Admin: 09/04/19 08:41 Dose: 48 mg Documented by: Glucagon () 1 mg IM .X1 PRN PRN Reason: Hypoglycemia Guaifenesin (Robitussin) 20 ml PO Q4H PRN PRN PRN Reason: COUGH Hydralazine HCl (Apresoline Iv) 10 mg IV Q4H PRN PRN PRN Reason: SBP > 160 Sodium Chloride () 250 mls @ 15 mls/hr IV .[id number] PRN PRN Reason: Saline Flush Sodium Chloride () 250 mls @ 15 mls/hr IV .[id number] PRN PRN Reason: Additional IVPB Infusion Sodium Chloride () 1,000 mls @ 125 mls/hr IV .Q8H [facility] Last Admin: 09/04/19 08:39 Dose: 125 mls/hr Documented by: Magnesium Oxide (Mag-Ox 400) 400 mg PO DAILY [facility] Last Admin: 09/04/19 08:41 Dose: 400 mg Documented by: Melatonin (Melatonin) 3 mg PO QHS PRN PRN PRN Reason: INSOMNIA Morphine Sulfate () 2 mg IV Q3H PRN PRN PRN Reason: Pain Score 6-10/10 Last Admin: 09/03/19 02:30 Dose: 2 mg Documented by: Nitroglycerin (Nitrostat) 0.4 mg SUBLINGUAL Q5M PRN PRN Reason: CARDIAC/CHEST PAIN Ondansetron HCl (Zofran) 4 mg IV Q8H PRN PRN PRN Reason: NAUSEA/VOMITING Oxycodone HCl (Oxyir) 5 mg PO Q4H PRN PRN PRN Reason: Pain Score 4-5/10 Pantoprazole Sodium (Protonix) 40 mg PO QHS [facility] Last Admin: 09/03/19 21:03 Dose: 40 mg Documented by: Prochlorperazine Edisylate (Compazine Iv) 5 mg IV Q4H PRN PRN PRN Reason: Breakthrough Nausea/Vomiting Psyllium Hydrophilic Mucilloid (Metamucil) 1 packet PO DAILY PRN PRN PRN Reason: Constipation Senna/Docusate Sodium (Senokot-S, Lori-Colace) 2 tablet PO BID PRN PRN PRN Reason: Constipation Sertraline HCl (Zoloft) 50 mg PO QHS [facility] Last Admin: 09/03/19 21:03 Dose: 50 mg Documented by: Sodium Chloride () 10 - 40 ml IV UD PRN PRN Reason: SALINE FLUSH Last Admin: 09/03/19 02:30 Dose: 10 ml Documented by: Throat Lozenges (Cepacol Sore Throat Lozenge) 1 lozenge MUCOUS MEM Q2H PRN PRN PRN Reason: SORE THROAT Tolterodine Tartrate (Detrol La) 2 mg PO DAILY [facility] Last Admin: 09/04/19 08:40 Dose: 2 mg Documented by: STROKE Vital Signs/Narrative: Vital Signs Temp Pulse Resp BP Pulse Ox 09/04/19 09:00 90 09/04/19 08:35 98.0 F 77 18 120/70 94 Medical Necessity - Tobacco Use Smoking Status: Never smoker Tobacco Use: Non-smoker Assessment/Plan All Active Problems (Last Reviewed 04/08/19 @ 11:[address] Debbie Hines DO) UGIB (upper gastrointestinal bleed) (Acute) Closed left hip fracture (Acute) 1. Left intertroch fx with avulsion 2/2 osteopenia and mechanical fall - POD#1. Doing well. Ambulating. -NSVT overnight: mag low, replace with 2g IV mag. resume coreg if BP improves. Maintain pt on tele. -hypotension - increase IV fluid rate. hold AM antihypertensives. -decreased Hgb. repeat in AM. 2. Hx bioprosthic aortic valve - stable per echo 3. Asthma - no exacerbation. PRN aerosols. 4. CAD - nonobstructive. not on aspirin or statin. continue KRISTA, coreg. 5. CKDIII - mild increase in BUN/Cr. IVF increased recheck in AM. 6. DEMI, morbid obesity - CPAP qhs 7. Anx/depression - zoloft 8. Chronic thrombocytopenia - mild decrease since admission. repeat CBC in AM. 9. Chronic normocytic anemia - stable 10. GERD - on PPI DVT ppx: per ortho DC planning: PTOT post op. Pt considering SNF but he is walking well so far. This patient was seen by Woody Parsons PA-C under the supervision of Dr. Morfin. <Genaro Morfin - Last Filed: 09/04/19 16:45> Subjective: Patient blood pressure is stable. Heart rate controlled no fever. Patient has Chow catheter with clear urine. ekg monitor tech shows PVCs with 3-5 beats of NSVT. Vitals/I&O's: Vital Signs Temp Pulse Resp BP Pulse Ox 97.9 F 77 18 104/58 L 99 09/04/19 11:45 09/04/19 11:45 09/04/19 11:45 09/04/19 11:45 09/04/19 11:45 Oxygen Flow Rate (L/min) 3 Oxygen Delivery Method CPAP Weight: 275 lb 5.718 oz Body Mass Index (BMI) 40.6 Intake and Output for Last 24 Hours 09/02/19 09/03/19 09/04/19 23:59 23:59 23:59 Intake Total 1826.5 / 1826.5 2630.25 / 2630.25 Output Total 1065 / 1065 300 / 300 Balance 761.5 / 761.5 2330.25 / 2330.25 General: Alert, Oriented x3, Cooperative HEENT: Atraumatic, PERRLA, EOMI, Normocephalic Neck: Supple, No JVD, Negative Carotid Bruits Lungs: Clear to auscultation, Diminished - Air entry diminished in bilateral lung bases Cardiovascular: Regular rate, No murmurs Abdomen: Bowel Sounds Present, Soft, Non Tender, Obese Extremities: No edema, Capillary Refill Less than 3 Seconds Skin: No rashes, No breakdown Musculoskeletal: Arthritic Changes, Tenderness - Mild operative site tenderness on the left hip. Neurological: Cranial nerves II-XII grossly intact, Neuro grossly intact Psych/Mental Status: Normal Affect, Appropriate Microbiology Past 72 Hours 09/02/19 22:06 Mucosa - Nasopharyngeal Coronavirus COVID-19 PCR - Final Laboratory Results 09/03/19 21:10: Hgb 9.6 L, Hct 32.1 L 09/04/19 06:20: WBC 6.5, RBC 3.07 L, Hgb 8.8 L, Hct 29.5 L, MCV 96.1 H, MCH 28.7, MCHC 29.8 L, RDW Std Deviation 62.5 H, RDW Coeff of Raina 18.0 H, Plt Count 75 L, MPV 12.2 H, Immature Gran % (Auto) 0.300, Neut % (Auto) 80.7 H, Lymph % (Auto) 9.0 L, [place] % (Auto) 7.8, Eos % (Auto) 1.7, Baso % (Auto) 0.5, Absolute Neuts (auto) 5.2, Absolute Lymphs (auto) 0.58 L, Nucleated RBC % 0, Differential Comment SCANNED, Atypical Lymphocytes RARE, Polychromasia RARE 09/04/19 06:20: Sodium 144, Potassium 4.3, Chloride 114 H, Carbon Dioxide 25.0, Anion Gap 5, BUN 23 H, Creatinine 1.62 H, Estim Creat Clear Calc 36.37, Est GFR (MDRD) Af Amer 53 L, Est GFR (MDRD) Non-Af 44 L, BUN/Creatinine Ratio 14.2, Glucose 124 H, Calcium 9.3 09/04/19 06:20: Magnesium 1.8 09/04/19 11:43: POC Glucose 142 H Current Medications Acetaminophen (Tylenol) 650 mg PO Q6H PRN PRN PRN Reason: Pain Score 1-10/Temp > 100.7 F Last Admin: 09/04/19 05:44 Dose: 650 mg Documented by: Al Hydroxide/Mg Hydroxide (Mylanta Ii) 30 ml PO Q6H PRN PRN PRN Reason: Gastric Burning Albuterol Sulfate (Ventolin Aerosols) 2.5 mg INHALATION Q2H PRN PRN PRN Reason: Dyspnea, wheezing Albuterol/Ipratropium (Duoneb) 3 ml INHALATION Q6HWA.RT [facility] Last Admin: 09/04/19 13:00 Dose: Not Given Documented by: Allopurinol (Zyloprim) 300 mg PO DAILYCM [facility] Last Admin: 09/04/19 08:40 Dose: 300 mg Documented by: Carvedilol (Coreg) 12.5 mg PO BID [facility] Last Admin: 09/04/19 08:41 Dose: Not Given Documented by: Dextrose (D50w Syringe) 0 gm IV X1 PRN; Protocol PRN Reason: Hypoglycemia Enoxaparin Sodium (Lovenox) 30 mg SC DAILY@0600 [facility] Last Admin: 09/04/19 05:44 Dose: 30 mg Documented by: Fenofibrate (Tricor) 48 mg PO DAILY [facility] Last Admin: 09/04/19 08:41 Dose: 48 mg Documented by: Glucagon () 1 mg IM .X1 PRN PRN Reason: Hypoglycemia Guaifenesin (Robitussin) 20 ml PO Q4H PRN PRN PRN Reason: COUGH Hydralazine HCl (Apresoline Iv) 10 mg IV Q4H PRN PRN PRN Reason: SBP > 160 Sodium Chloride () 250 mls @ 15 mls/hr IV .[id number] PRN PRN Reason: Saline Flush Sodium Chloride () 250 mls @ 15 mls/hr IV .[id number] PRN PRN Reason: Additional IVPB Infusion Sodium Chloride () 1,000 mls @ 125 mls/hr IV .Q8H [facility] Last Admin: 09/04/19 08:39 Dose: 125 mls/hr Documented by: Magnesium Oxide (Mag-Ox 400) 400 mg PO DAILY [facility] Last Admin: 09/04/19 08:41 Dose: 400 mg Documented by: Melatonin (Melatonin) 3 mg PO QHS PRN PRN PRN Reason: INSOMNIA Morphine Sulfate () 2 mg IV Q3H PRN PRN PRN Reason: Pain Score 6-10/10 Last Admin: 09/03/19 02:30 Dose: 2 mg Documented by: Nitroglycerin (Nitrostat) 0.4 mg SUBLINGUAL Q5M PRN PRN Reason: CARDIAC/CHEST PAIN Ondansetron HCl (Zofran) 4 mg IV Q8H PRN PRN PRN Reason: NAUSEA/VOMITING Oxycodone HCl (Oxyir) 5 mg PO Q4H PRN PRN PRN Reason: Pain Score 4-5/10 Last Admin: 09/04/19 12:46 Dose: 5 mg Documented by: Pantoprazole [facility] ([facility]tonix) [facility] Last Admin: 09/03/19 21:03 Dose: 40 mg Documented by: Prochlorperazine Edisylate (Compazine Iv) 5 mg IV Q4H PRN PRN PRN Reason: Breakthrough Nausea/Vomiting Psyllium Hydrophilic Mucilloid (Metamucil) 1 packet PO DAILY PRN PRN PRN Reason: Constipation Senna/Docusate Sodium (Senokot-S, Lori-Colace) 2 tablet PO BID PRN PRN PRN Reason: Constipation Sertraline HCl (Zoloft) 50 mg PO [facility] Last Admin: 09/03/19 21:03 Dose: 50 mg Documented by: Sodium Chloride () 10 - 40 ml IV UD PRN PRN Reason: SALINE FLUSH Last Admin: 09/03/19 02:30 Dose: 10 ml Documented by: Throat Lozenges (Cepacol Sore Throat Lozenge) 1 lozenge MUCOUS MEM Q2H PRN PRN PRN Reason: SORE THROAT Tolterodine Tartrate (Detrol La) 2 mg PO DAILY [facility] Last Admin: 09/04/19 08:40 Dose: 2 mg Documented by: Assessment/Plan This patient was seen in conjunction with Woody PETERS. I have independently interviewed and examined the patient and reviewed pertinent history, examination findings, laboratory and plan of management. I have reviewed the note and agree with the documented findings with the few additional points. In brief, patient is 79-year-old gentleman admitted with severe left hip pain after fall with x-ray finding consistent with a complicated, pathological: Left inter-trochanteric fracture hip with avulsion of lesser and greater trochanter with adjacent soft tissue hematoma with osteopenia. EKG shows normal sinus rhythm with right bundle branch block. Discussed with laboratory helper. Patient has history of aortic valve replacement, bioprosthetic. 2D echo was done. Interpretation Summary Normal LV size. Moderate concentric left ventricular hypertrophy. Left ventricular systolic function is normal. The estimated ejection fraction is 70 %. Stage 1 diastolic dysfunction. Mean transmitral valve gradient 6 mmHg. Stable appearing bioprosthetic aortic valve apparatus. Contrast injection was performed. Overall perioperative risk evaluation was done, NSQIP 10.7% / 10.9% therefore below average but patient has significant limited exercise capacity. Patient usually walks on Rollator/walker or a scooter for long distance. Patient can climb 10 steps with help of railing. Patient had left calf elemental renal done. R 09/03: Repeat images source dropped from 10g to 8.8 g. Increasing BUN/creatinine. BUN 23/creatinine 1.62. Magnesium 1.8. Other comorbidities include coronary artery disease, nonobstructive not on aspirin, stable asthma, CKD stage III, obstructive sleep apnea on CPAP, anxiety and depression and chronic thrombocytopenia. Patient platelet count is stable, less than 100,000 since February 2018. Most recent 78,000 today. Chronic normocytic normochromic anemia. Monitor CBC and BMP daily. Medications reviewed and TriCor discontinued. Magnesium replacement done. On Lovenox 30 mg subcu daily for DVT prophylaxis. Total time of the visit including total time spent in counseling or coordination of care, (more than 50% of the total time, spent in obtaining medical information from nurses and other ancillary care providers), discussion with consultants, review of labs and imaging is 30 minutes I have discussed my assessment with Woody EPTERS and orders have been reviewed. Inpatient E&M: 00430 Subs Hosp L2
[2019-09-04 12:45] LABS: Bedside Glucose 142 mg/dL (70-110)
[2019-09-04] MEDS: oxyCODONE 5 MG Tablet PO (12:46)
--- NOTE | 2019-09-04 13:03 | PN.ORTHO_ITS ---
Patient Problems: Active and Suspected Problems (Last Reviewed 04/08/19 @ 11:[address] Debbie Hines DO) Closed left hip fracture (Acute) Subjective: Patient lying in bed sleeping. Patient did have a CPAP mask on. Patiently was easily awakened. Patient states his pain is been very well managed. He has been up ambulating with use of a walker with minimal discomfort. Patient denies chest pain, shortness of breath, calf pain, nausea vomiting. Patient feels that he would like to have the opportunity to be placed at an extended care facility to help him with his postop rehab. Patient reports she has significant neuropathy and difficult time with ambulation. Patient is very concerned that he potentially could sustain another fall if he does not have the opportunity for rehab. Objective: Patient lying comfortably in a lateral position on his nonoperative side. He is awake, with no respiratory distress. Patient's dressing is clean dry intact. He has minimal swelling or tenderness palpation over the incisional area of the left hip. It is nonerythematous. Patient is good flexion-extension of the knee with extension mechanism intact. He has good plantar flexion dorsiflexion of the left foot. No signs or symptoms of DVT. Patient's hemoglobin is 8.8. Hemodynamically he does appear to be stable. - Physical Exam Vitals/I&O's: Vital Signs Temp Pulse Resp BP Pulse Ox 97.9 F 77 18 104/58 L 99 09/04/19 11:45 09/04/19 11:45 09/04/19 11:45 09/04/19 11:45 09/04/19 11:45 Oxygen Flow Rate (L/min) 3 Oxygen Delivery Method CPAP Weight: 124.9 kg Body Mass Index (BMI) 40.6 Intake and Output for Last 24 Hours 09/02/19 09/03/19 09/04/19 23:59 23:59 23:59 Intake Total 1826.5 / 1826.5 2526.25 / 2526.25 Output Total 1065 / 1065 300 / 300 Balance 761.5 / 761.5 2226.25 / 2226.25 General: Alert, Oriented x3, Cooperative HEENT: PERRLA Oral: Moist Mucosa Neurological: Cranial nerves II-XII grossly intact Psych/Mental Status: Normal Affect, Alert and oriented to time, place, person, mood and affect Microbiology Past 72 Hours 09/02/19 22:06 Mucosa - Nasopharyngeal Coronavirus COVID-19 PCR - Final Laboratory Results 09/03/19 21:10: Hgb 9.6 L, Hct 32.1 L 09/04/19 06:20: WBC 6.5, RBC 3.07 L, Hgb 8.8 L, Hct 29.5 L, MCV 96.1 H, MCH 28.7, MCHC 29.8 L, RDW Std Deviation 62.5 H, RDW Coeff of Raina 18.0 H, Plt Count 75 L, MPV 12.2 H, Immature Gran % (Auto) 0.300, Neut % (Auto) 80.7 H, Lymph % (Auto) 9.0 L, [place] % (Auto) 7.8, Eos % (Auto) 1.7, Baso % (Auto) 0.5, Absolute Neuts (auto) 5.2, Absolute Lymphs (auto) 0.58 L, Nucleated RBC % 0, Differential Comment SCANNED, Atypical Lymphocytes RARE, Polychromasia RARE 09/04/19 06:20: Sodium 144, Potassium 4.3, Chloride 114 H, Carbon Dioxide 25.0, Anion Gap 5, BUN 23 H, Creatinine 1.62 H, Estim Creat Clear Calc 36.37, Est GFR (MDRD) Af Amer 53 L, Est GFR (MDRD) Non-Af 44 L, BUN/Creatinine Ratio 14.2, Glucose 124 H, Calcium 9.3 09/04/19 06:20: Magnesium 1.8 09/04/19 11:43: POC Glucose 142 H Current Medications Acetaminophen (Tylenol) 650 mg PO Q6H PRN PRN PRN Reason: Pain Score 1-10/Temp > 100.7 F Last Admin: 09/04/19 05:44 Dose: 650 mg Documented by: Al Hydroxide/Mg Hydroxide (Mylanta Ii) 30 ml PO Q6H PRN PRN PRN Reason: Gastric Burning Albuterol Sulfate (Ventolin Aerosols) 2.5 mg INHALATION Q2H PRN PRN PRN Reason: Dyspnea, wheezing Albuterol/Ipratropium (Duoneb) 3 ml INHALATION Q6HWA.RT [facility] Last Admin: 09/04/19 06:37 Dose: 3 ml Documented by: Allopurinol (Zyloprim) 300 mg PO DAILYCM [facility] Last Admin: 09/04/19 08:40 Dose: 300 mg Documented by: Carvedilol (Coreg) 12.5 mg PO BID [facility] Last Admin: 09/04/19 08:41 Dose: Not Given Documented by: Dextrose (D50w Syringe) 0 gm IV X1 PRN; Protocol PRN Reason: Hypoglycemia Enoxaparin Sodium (Lovenox) 30 mg SC DAILY@0600 [facility] Last Admin: 09/04/19 05:44 Dose: 30 mg Documented by: Fenofibrate (Tricor) 48 mg PO DAILY [facility] Last Admin: 09/04/19 08:41 Dose: 48 mg Documented by: Glucagon () 1 mg IM .X1 PRN PRN Reason: Hypoglycemia Guaifenesin (Robitussin) 20 ml PO Q4H PRN PRN PRN Reason: COUGH Hydralazine HCl (Apresoline Iv) 10 mg IV Q4H PRN PRN PRN Reason: SBP > 160 Sodium Chloride () 250 mls @ 15 mls/hr IV .[id number] PRN PRN Reason: Saline Flush Sodium Chloride () 250 mls @ 15 mls/hr IV .[id number] PRN PRN Reason: Additional IVPB Infusion Sodium Chloride () 1,000 mls @ 125 mls/hr IV .Q8H [facility] Last Admin: 09/04/19 08:39 Dose: 125 mls/hr Documented by: Magnesium Sulfate 2 gm/ Sodium (Chloride) 104 mls @ 52 mls/hr IV X1 ONE Stop: 09/04/19 13:29 Magnesium Oxide (Mag-Ox 400) 400 mg PO DAILY [facility] Last Admin: 09/04/19 08:41 Dose: 400 mg Documented by: Melatonin (Melatonin) 3 mg PO QHS PRN PRN PRN Reason: INSOMNIA Morphine Sulfate () 2 mg IV Q3H PRN PRN PRN Reason: Pain Score 6-10/10 Last Admin: 09/03/19 02:30 Dose: 2 mg Documented by: Nitroglycerin (Nitrostat) 0.4 mg SUBLINGUAL Q5M PRN PRN Reason: CARDIAC/CHEST PAIN Ondansetron HCl (Zofran) 4 mg IV Q8H PRN PRN PRN Reason: NAUSEA/VOMITING Oxycodone HCl (Oxyir) 5 mg PO Q4H PRN PRN PRN Reason: Pain Score 4-5/10 Last Admin: 09/04/19 12:46 Dose: 5 mg Documented by: Pantoprazole Sodium (Protonix) 40 mg PO QHS [facility] Last Admin: 09/03/19 21:03 Dose: 40 mg Documented by: Prochlorperazine Edisylate (Compazine Iv) 5 mg IV Q4H PRN PRN PRN Reason: Breakthrough Nausea/Vomiting Psyllium Hydrophilic Mucilloid (Metamucil) 1 packet PO DAILY PRN PRN PRN Reason: Constipation Senna/Docusate Sodium (Senokot-S, Lori-Colace) 2 tablet PO BID PRN PRN PRN Reason: Constipation Sertraline HCl (Zoloft) 50 mg PO QHS [facility] Last Admin: 09/03/19 21:03 Dose: 50 mg Documented by: Sodium Chloride () 10 - 40 ml IV UD PRN PRN Reason: SALINE FLUSH Last Admin: 09/03/19 02:30 Dose: 10 ml Documented by: Throat Lozenges (Cepacol Sore Throat Lozenge) 1 lozenge MUCOUS MEM Q2H PRN PRN PRN Reason: SORE THROAT Tolterodine Tartrate (Detrol La) 2 mg PO DAILY [facility] Last Admin: 09/04/19 08:40 Dose: 2 mg Documented by: Medical Necessity - Tobacco Use Smoking Status: Never smoker Tobacco Use: Non-smoker Assessment/Plan All Active Problems (Last Reviewed 04/08/19 @ 11:[address] Debbie Hines DO) UGIB (upper gastrointestinal bleed) (Acute) Closed left hip fracture (Acute) Status post left intertrochanteric fracture That is post ORIF of left peritrochanteric fracture with InterTAN fixation Stable Plan 1. Continue all pain medications as prescribed 2. Continue anticoagulation as directed by medicine 3. Continue physical therapy weight-bear as tolerated with walker. 4. Courage incentive spirometry 5. Medicine will continue to manage medically. 6. Patient can shower 09/07/2019 7. Replace dressings prior to discharge to ECF with a silver/AG dressing 8. Staple removal September 16, 2019 9. Follow-up with Dr. Casillas in 2 weeks. 10. Discharge to ECF when clear by medicine
--- NOTE | 2019-09-04 13:10 | DCINST_ITS ---
Discharge Diet: No Restrictions Discharge Activity: May Not Drive, May Shower, Use Walker May shower in (days): 3 Ice area for (Minutes): 20 - Every hour while awake. Weight Bearing Status: Weight bearing as tolerated Keep extremity elevated above heart level: Operative Extremity Call your doctor if your incision/area has: Continuous Slow Oozing, Sudden Increased Bleeding, Increased Pain/ Swelling, Increased Redness, Foul Smelling Discharge Call your doctor if you observe: Fever of 101 or Higher, Coldness, Increased Pain, Numbness or Tingling, Change in Color, Calf discomfort Remove Dressing in (days):: 10 Allergies/Adverse Reactions: Allergies acetaminophen [From Vicodin] Allergy (Verified 09/02/19 20:30) Other hydrocodone [From Vicodin] Allergy (Verified 09/02/19 20:30) Other strawberry Allergy (Verified 09/02/19 20:30) Hives venom-honey bee [bee venom (honey bee)] Allergy (Verified 09/02/19 20:30) Anaphylaxis Medications to take at Discharge Allopurinol [Zyloprim] 300 mg PO DAILY 04/12/16 Fenofibrate [Tricor] 48 mg PO DAILY 04/12/16 Lisinopril [Zestril] 40 mg PO DAILY 04/12/16 Magnesium Oxide [Mag-Ox 400] 400 mg PO DAILY 04/12/16 Multivit-Min/FA/Lycopen/Lutein [Centrum Silver Tablet] 1 ea PO DAILY 04/12/16 Fluticasone/Vilanterol [Breo Ellipta 200-25 Mcg INH] 1 ea IH DAILY 02/19/18 Sertraline HCl [Zoloft] 50 mg PO QHS 02/19/18 carvedilol 12.5 mg tablet 12.5 mg PO BID 02/27/19 Oxybutynin Chloride [Oxybutynin Chloride ER] 10 mg PO DAILY 04/08/19 Omeprazole [Prilosec] 40 mg PO QHS #60 cap 04/09/19 Hydrochlorothiazide 12.5 mg PO DAILY 09/02/19 Primary Care Physician: Ricky Bradley MD [Primary Care Provider] - Test Results: Test results from this visit will be discussed in further detail at your follow- up appointment, if applicable. Please Follow Up With: Joss Casillas MD When: 2 weeks call for Appointment [phone]
--- NOTE | 2019-09-04 13:41 | CASEMGMT ---
SW faxed referral to [facility] patient's first choice for SNF. She said they are full and will not have any beds until next week. SW will check with patient to see where else he would be willing to go at d/c. Maria T LIU MSW
--- NOTE | 2019-09-04 15:53 | CASEMGMT ---
PAYAL RAMIREZ NOTE: 1415: Call received from Miguel @ [facility], inquiring about discharge plans for pt. He states pt's had phoned in to them requesting assistance w/getting a W/C ramp and concerns w/pt being able to get into shower with a walker. He was made aware PT/OT evals have not been completed yet and discharge plan is still pending. He asks for them to be notified once d/c plan is made. Reviewed [facility] transfer declination form with pt. Pt does not wish to transfer and wishes to have MCR billed. Transfer declination form signed by pt, copy made and placed on chart and original given to pt. [facility] declination form, H/P, demographics, and updated progress notes all faxed to [facility] at this time. 1530: PT/OT evals have now been completed. SNF recommended. Call placed back to [facility] @ [phone]. VM message left informing them that plan is for pt to discharge to TCU. Provided them w/PAYAL RAMIREZ, Marisol Watson's phone number, who will be taking over pt's care tomorrow. David VALE RN, CM
--- NOTE | 2019-09-04 16:23 | CASEMGMT ---
Addendum entered by Maria T Marquez 09/04/19 16:42: Notified patient that TCU can take him. Plan: d/c to [facility] TCU Original Note: SW spoke with patient notifying him that [facility] is full. He would like to go to [facility] TCU. SW spoke with Jerrica and they would have a bed for patient. SW will notify patient. Plan: [facility] TCU under skilled level of care. Maria T LIU MSW
[2019-09-04 17:56] LABS: Bedside Glucose 103 mg/dL (70-110)
[2019-09-04] MEDS: 0.9% Saline Lock 10 ML Syringe IV (21:58)
[2019-09-04] MEDS: MELATONIN 3 MG TABLET PO (22:02)
[2019-09-04] MEDS: Carvedilol 12.5 MG Tablet PO (22:03)
[2019-09-04] MEDS: Sertraline 50 MG Tablet PO (22:04)
[2019-09-04] MEDS: Pantoprazole Sodium 40 MG Tablet PO (22:04)
[2019-09-05] VITALS (8 sets, daily range): BP systolic 114–123; BP diastolic 52–67; PULSE 69–77; RESP 16; TEMP 36.7–36.9; O2SAT 93–99
[2019-09-05] MEDS: 0.9% Normal Saline 1,000 ML 125 ML IV (06:12)
[2019-09-05] MEDS: Enoxaparin 30 MG/0.3 ML Syringe SC (06:12)
[2019-09-05 06:27] LABS: Anion Gap 5 (5-15); BUN 27 mg/dL (7-18); BUN/Creat Ratio 16.6 RATIO (10-20); Calcium,Total 9.1 mg/dL (8.5-10.1); Chloride 112 mmol/L (98-107); Creatinine, Serum 1.63 mg/dL (0.70-1.30); EST Glomerular Filtration Rate 43 mL/min (>60); Est Glom Filt Rate - Afr Amer 53 mL/min (>60); Estimated Creatinine Clearance 36.15 ml/min; Glucose 123 mg/dL (74-106); Potassium 4.3 mmol/L (3.5-5.1); Sodium Level 142 mmol/L (136-145)
[2019-09-05] MEDS: Ipratropium/Albuterol Sulfate 3 ML AMPUL.NEB INHALATION (07:13)
[2019-09-05 07:24] LABS: Absolute Lymphocyte Count 0.63 X10^3/uL (0.83-4.51); Absolute Neutrophil Count 4.3 X10^3/uL (2.0-7.7); Basophil# 0.02 X10^3/uL; Basophil% 0.4 % (0-1); Eosinophil# 0.09 X10^3/uL; Eosinophils% 1.6 % (0-5); Hematocrit 24.3 % (40-54); Hemoglobin 7.3 g/dL (13.0-16.5); Lymphocyte # 0.63 X10^3/ul (4.0); Lymphocyte % 11.3 % (19-41); Mean Corpuscular Hgb 28.9 pg (27.0-32.0); Monocyte# 0.54 X10^3/uL; Monocyte% 9.7 % (0-10); NRBC Flagged by Analyzer 0 % (0-5); Neutrophil # 4.27 X10^3/uL (2.7-7.7); Neutrophil % 76.5 % (47-70); POSITIVE COUNT YES; Platelet Count 73 K/mm3 (150-450); RBC Distribution Width CV 18.2 % (11.6-14.6); RBC Distribution Width SD 63.4 fl (35.1-43.9); Red Blood Count 2.53 M/mm3 (4.6-6.2); White Blood Count 5.6 K/mm3 (4.4-11.0)
--- NOTE | 2019-09-05 09:01 | NURSING ---
Report received from Jairo Longo RN. This RN taking over patient care at this time.
--- NOTE | 2019-09-05 09:57 | CASEMGMT ---
Call from Miguel at the [facility] and he is updated on plan of care to discharge to TCU at this time, voices understanding. Per Miguel, pt's called into [facility], asking about getting a w/c ramp set up and bathroom set up. Miguel states that they would like to know a timeline for pt's discharge from TCU. Danielle, U SW, updated on all at this time and provided with contact info for Miguel at the [facility] at this time, voices understanding. Lydia MOE CM
[2019-09-05] MEDS: Tolterodine Tartrate 2 MG CAP.SA PO (10:06)
[2019-09-05] MEDS: Acetaminophen 325 MG Tablet 650 MG PO (10:06)
[2019-09-05] MEDS: Carvedilol 12.5 MG Tablet PO (10:06)
[2019-09-05] MEDS: Senna/Docusate Sodium 1 Tablet 2 TABLET PO (10:06)
[2019-09-05] MEDS: Allopurinol 300 MG Tablet PO (10:07)
--- NOTE | 2019-09-05 10:54 | TREXTCA.CO_ITS ---
- Diet 09/04/19 04:38 Diet: Regular Diet Is pt able to select menu?: Yes - Routine Orders/Code Status Enema Type: Fleetz Enema Frequency: Daily PRN Suppository Type: Dulcolax 10mg Suppository Frequency: Daily PRN Routine Lab Work: - - CBC, BMP daily X3 days. Monitor H/H-plan to transfuse for hemoglobin less than 7. Code Status: Full Code - Wound(s) left hip Wound Type: Surgical Incision L OUTER THIGH Wound Type: Surgical Incision - Suggestions for Active Care Change Position every (hours): 2 Times a day to sit in chair: 3 - Therapies Weight Bearing: Weight bearing as tolerated Physical Therapy: Eval and Treat Occupational Therapy: Eval and Treat - Problem/Diagnosis (1) Closed left hip fracture Status: Acute Current Visit: Yes (2) Anemia of chronic disease Status: Chronic Current Visit: Yes (3) Asthma Status: Chronic Current Visit: No (4) CKD (chronic kidney disease), stage III Status: Chronic Current Visit: No (5) Morbid obesity Status: Chronic Current Visit: No (6) DEMI (obstructive sleep apnea) Status: Chronic Current Visit: No (7) PCK (polycystic kidney disease) Status: Chronic Current Visit: No (8) Atherosclerosis of coronary artery of [place] heart without angina pectoris Status: Chronic Current Visit: No (9) Essential (primary) hypertension Status: Chronic Current Visit: No (10) Hyperlipemia Status: Chronic Current Visit: No - Allergies/Procedures Done in Hospital Allergies/Adverse Reactions: Allergies acetaminophen [From Vicodin] Allergy (Verified 09/02/19 20:30) Other hydrocodone [From Vicodin] Allergy (Verified 09/02/19 20:30) Other strawberry Allergy (Verified 09/02/19 20:30) Hives venom-honey bee [bee venom (honey bee)] Allergy (Verified 09/02/19 20:30) Anaphylaxis Procedures: - - Left hip cephalo-medullary nailing - Type of Care/Length of Stay Estimated LOS: Convalescent Care Less Than 30 days Type of Care Needed: Skilled Rehab Potential: Fair Prognosis: Fair - Additional Orders/Day of Discharge Additional Orders: Patient may shower 09/07/2019. Staple removal September 16, 2019. H&P will serve as current which was dated: 09/02/19 Day of Discharge: 09/05/19 - Dietary and Speech Recommendations Dietitian Recommendations/Changes: Advance diet as medically indicated to 1800 calorie/Cardiac. - Follow Up Care Primary Care Physician: Ricky Bradley MD [Primary Care Provider] - Please follow up with your Primary Care Physician in: 1 Week Please Follow Up With: Joss Casillas MD When: 2 weeks call for Appointment [phone]
--- NOTE | 2019-09-05 11:36 | PHA.DC.MR ---
Pharmacy Service has performed discharge medication reconciliation for this patient. The patient's discharge medication list was reviewed for discrepancies and discrepancies were resolved. Home Medications Allopurinol [Zyloprim] 300 mg PO DAILY 04/12/16 Fenofibrate [Tricor] 48 mg PO DAILY 04/12/16 Lisinopril [Zestril] 40 mg PO DAILY 04/12/16 Magnesium Oxide [Mag-Ox 400] 400 mg PO DAILY 04/12/16 Multivit-Min/FA/Lycopen/Lutein [Centrum Silver Tablet] 1 ea PO DAILY 04/12/16 Fluticasone/Vilanterol [Breo Ellipta 200-25 Mcg INH] 1 ea IH DAILY 02/19/18 carvedilol 12.5 mg tablet 12.5 mg PO BID 02/27/19 Oxybutynin Chloride [Oxybutynin Chloride ER] 10 mg PO DAILY 04/08/19 Omeprazole [Prilosec] 40 mg PO QHS #60 cap 04/09/19 Hydrochlorothiazide 12.5 mg PO DAILY 09/02/19 Enoxaparin [Lovenox] 30 mg SUBCUT DAILY@0600 syringe 09/05/19 Ferrous Sulfate 325 mg PO 1200,1700 tab 09/05/19 Oxycodone [Oxyir] 5 mg PO Q4H PRN PRN 7 Days tab 09/05/19 Sertraline HCl [Zoloft] 100 mg PO QHS tab 09/05/19
[2019-09-05] MEDS: Ferrous Sulfate 325 MG Tablet PO (12:12)
[2019-09-05] MEDS: Bisacodyl 10 MG Suppository RECTAL (12:12)
[2019-09-05 12:28] LABS: Ferritin 24 ng/mL (26-388); Iron 19 ug/dL (65-175); Iron Binding Capacity,Total 284 ug/dL (250-450); PERCENT IRON SATURATION 6.7 % (15.0-55.0)
[2019-09-05 13:28] LABS: Hematocrit 24.9 % (40-54); Hemoglobin 7.5 g/dL (13.0-16.5)
[2019-09-05 14:14] LABS: Vitamin B12 315 pg/mL (211-911)
--- NOTE | 2019-09-05 15:01 | PCM.DC.SUM ---
<Mimi Restrepo - Last Filed: 09/05/19 15:09> Discharge Date and Diagnosis Date of Admission: 09/02/19 Date of Discharge: 09/05/19 - Primary Discharge Diagnosis Acute Problems: Active Problems (Last Reviewed 04/08/19 @ 11:[address] Debbie Hines, ) 1. Traumatic left intertrochanter fracture with avulsion secondary to osteopenia and mechanical fall status post left hip cephalo-medullary nailing 09/03/2019 2. History of bioprosthetic aortic valve 3. Acute on chronic anemia 4. Nonobstructive CAD 5. Chronic kidney disease stage III 6. DEMI 7. Anxiety/depression 8. Chronic thrombocytopenia 9. Chronic asthma 10. GERD - Secondary Discharge Diagnosis Chronic Problems: Chronic Problems (Last Reviewed 04/08/19 @ 11:[address] Debbie Hines, DO) Thrombocytopenia (Chronic) Anemia of chronic disease (Chronic) Morbid obesity (Chronic) DEMI (obstructive sleep apnea) (Chronic) Asthma (Chronic) CKD (chronic kidney disease), stage III (Chronic) PCK (polycystic kidney disease) (Chronic) Atherosclerosis of coronary artery of [place] heart without angina pectoris (Chronic) Nonrheumatic aortic (valve) stenosis (Chronic) AVR w/ #25 Shannan-Fisher 01/18/2011 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/11) AVR w/ #25 Shannan-Fisher 01/18/2011 Essential (primary) hypertension (Chronic) Hyperlipemia (Chronic) Right bundle branch block (RBBB) (Chronic) Hospital Course and Treatment Imaging Results: Diagnostic Data Hip/Pelvis X-Ray 09/02/19 21:11 IMPRESSION: intertrochanteric fracture of the left hip which extends into the subtrochanteric region. There is avulsion of the lesser and greater trochanters. There is adjacent soft tissue hematoma. Osteopenia Degenerative changes of the lower lumbar spine Electronically Signed: Moe Castro at 22:16 EDT Tel , Service support , Chest X-Ray 09/02/19 21:52 IMPRESSION: Stable mild cardiomegaly Small hiatal hernia Sternal wires, prior cardiothoracic surgery Electronically Signed: Moe Castro at 22:33 EDT Tel , Service support , Hip X-Ray 09/03/19 17:03 IMPRESSION: Postoperative left hip fracture as above Electronically Signed: Moe Castro, at 18:03 EDT Tel , Service support , Dr. Casillas- ortho Operations: - - Left hip cephalo-medullary nailing Procedures: 2-D Echocardiogram Summary of Care Provided: The patient is a 79 year old M admitted 09/02/2019 due to mechanical fall with left hip pain. 1. Traumatic left intertrochanter fracture with avulsion secondary to osteopenia and mechanical fall status post left hip cephalo-medullary nailing 09/03/2019- PT/OT. PRN pain regimen. Management per Ortho. TCU at discharge for rehab. 2. History of bioprosthetic aortic valve-stable. 3. Acute on chronic anemia, acute anemia secondary to expected blood loss related to surgery/#1-patient has chronic macrocytic anemia-iron studies show iron deficiency. IV iron x1. Discharged on iron supplementation. Trend H&H. 4. Nonobstructive CAD-continue KRISTA, Coreg. 5. Chronic kidney disease stage III-stable, trend BMP. 6. DEMI-continue CPAP nightly. 7. Anxiety/depression-continue Zoloft. 8. Chronic thrombocytopenia-stable. 9. Chronic asthma-stable, PRN aerosols. 10. GERD- continue PPI. General: Alert, Oriented x3, Cooperative HEENT: Atraumatic, PERRLA, EOMI, Normocephalic Neck: Supple, No JVD, Negative Carotid Bruits Lungs: Clear to auscultation, Normal air movement Cardiovascular: Regular rate, No murmurs Abdomen: Bowel Sounds Present, Soft, Non Tender, Obese Extremities: No edema, Capillary Refill Less than 3 Seconds Skin: No rashes, No breakdown, left hip dressing intact Musculoskeletal: No Tenderness to Palpation of Joints or Extremities Neurological: Cranial nerves II-XII grossly intact Psych/Mental Status: Normal Affect, Appropriate Patient seen and examined prior to discharge. Physical assessment as noted above. Patient is stable for discharge with follow up recommendations as noted above. This patient was seen by GAIL Suarez under the supervision of Dr. Morfin. - Physical Exam Vitals/I&O's: Vital Signs Temp Pulse Resp BP Pulse Ox 98.4 F 72 16 123/67 H 94 09/05/19 09:35 09/05/19 11:02 09/05/19 09:35 09/05/19 09:35 09/05/19 09:35 Oxygen Flow Rate (L/min) 3 Oxygen Delivery Method Room Air Weight: 275 lb 5.718 oz Body Mass Index (BMI) 40.6 Intake and Output for Last 24 Hours 09/03/19 09/04/19 09/05/19 23:59 23:59 23:59 Intake Total 1826.5 / 1826.5 4250.25 / 4490.25 2702.08 / 2702.08 Output Total 1065 / 1065 800 / 1200 825 / 825 Balance 761.5 / 761.5 3450.25 / 3290.25 1877.08 / 1877.08 Microbiology Past 72 Hours 09/02/19 22:06 Mucosa - Nasopharyngeal Coronavirus COVID-19 PCR - Final Laboratory Results 09/04/19 16:36: POC Glucose 103 09/05/19 05:53: WBC 5.6, RBC 2.53 L, Hgb 7.3 L, Hct 24.3 L, MCV 96.0 H, MCH 28.9, MCHC 30.0 L, RDW Std Deviation 63.4 H, RDW Coeff of Raina 18.2 H, Plt Count 73 L, MPV 13.0 H, Immature Gran % (Auto) 0.500, Neut % (Auto) 76.5 H, Lymph % (Auto) 11.3 L, [place] % (Auto) 9.7, Eos % (Auto) 1.6, Baso % (Auto) 0.4, Absolute Neuts (auto) 4.3, Absolute Lymphs (auto) 0.63 L, Nucleated RBC % 0 09/05/19 05:53: Sodium 142, Potassium 4.3, Chloride 112 H, Carbon Dioxide 25.0, Anion Gap 5, BUN 27 H, Creatinine 1.63 H, Estim Creat Clear Calc 36.15, Est GFR (MDRD) Af Amer 53 L, Est GFR (MDRD) Non-Af 43 L, BUN/Creatinine Ratio 16.6, Glucose 123 H, Calcium 9.1 09/05/19 05:53: Iron 19 L, TIBC 284, Iron Saturation 6.7 L, Ferritin 24 L, Folate 15.20 09/05/19 13:10: Vitamin B12 315 09/05/19 13:10: Hgb 7.5 L, Hct 24.9 L Current Medications Acetaminophen (Tylenol) 650 mg PO Q6H PRN PRN PRN Reason: Pain Score 1-10/Temp > 100.7 F Last Admin: 09/05/19 10:06 Dose: 650 mg Documented by: Albuterol Sulfate (Ventolin Aerosols) 2.5 mg INHALATION Q2H PRN PRN PRN Reason: Dyspnea, wheezing Albuterol/Ipratropium (Duoneb) 3 ml INHALATION Q6HWA.RT [facility] Last Admin: 09/05/19 13:43 Dose: Not Given Documented by: Allopurinol (Zyloprim) 300 mg PO [facility] Last Admin: 09/05/19 10:07 Dose: 300 mg Documented by: Carvedilol (Coreg) 12.5 mg PO BID [facility] Last Admin: 09/05/19 10:06 Dose: 12.5 mg Documented by: Dextrose (D50w Syringe) 0 gm IV X1 PRN; Protocol PRN Reason: Hypoglycemia Enoxaparin Sodium (Lovenox) 30 mg SC DAILY@0600 [facility] Last Admin: 09/05/19 06:12 Dose: 30 mg Documented by: Ferrous Sulfate (Ferrous Sulfate) 325 mg PO 1200,1700 [facility] Last Admin: 09/05/19 12:12 Dose: 325 mg Documented by: Glucagon () 1 mg IM .X1 PRN PRN Reason: Hypoglycemia Guaifenesin (Robitussin) 20 ml PO Q4H PRN PRN PRN Reason: COUGH Hydralazine HCl (Apresoline Iv) 10 mg IV Q4H PRN PRN PRN Reason: SBP > 160 Sodium Chloride () 250 mls @ 15 mls/hr IV .[id number] PRN PRN Reason: Saline Flush Sodium Chloride () 250 mls @ 15 mls/hr IV .[id number] PRN PRN Reason: Additional IVPB Infusion Melatonin (Melatonin) 3 mg PO QHS PRN PRN PRN Reason: INSOMNIA Last Admin: 09/04/19 22:02 Dose: 3 mg Documented by: Morphine Sulfate () 2 mg IV Q3H PRN PRN PRN Reason: Pain Score 6-10/10 Last Admin: 09/03/19 02:30 Dose: 2 mg Documented by: Nitroglycerin (Nitrostat) 0.4 mg SUBLINGUAL Q5M PRN PRN Reason: CARDIAC/CHEST PAIN Ondansetron HCl (Zofran) 4 mg IV Q8H PRN PRN PRN Reason: NAUSEA/VOMITING Oxycodone HCl (Oxyir) 5 mg PO Q4H PRN PRN PRN Reason: Pain Score 4-5/10 Last Admin: 09/04/19 12:46 Dose: 5 mg Documented by: Pantoprazole Sodium (Protonix) 40 mg PO QHS [facility] Last Admin: 09/04/19 22:04 Dose: 40 mg Documented by: Prochlorperazine Edisylate (Compazine Iv) 5 mg IV Q4H PRN PRN PRN Reason: Breakthrough Nausea/Vomiting Psyllium Hydrophilic Mucilloid (Metamucil) 1 packet PO DAILY PRN PRN PRN Reason: Constipation Senna/Docusate Sodium (Senokot-S, Lori-Colace) 2 tablet PO BID PRN PRN PRN Reason: Constipation Last Admin: 09/05/19 10:06 Dose: 2 tablet Documented by: Sertraline HCl (Zoloft) 100 mg PO QHS [facility] Sodium Chloride () 10 - 40 ml IV UD PRN PRN Reason: SALINE FLUSH Last Admin: 09/04/19 21:58 Dose: 10 ml Documented by: Throat Lozenges (Cepacol Sore Throat Lozenge) 1 lozenge MUCOUS MEM Q2H PRN PRN PRN Reason: SORE THROAT Tolterodine Tartrate (Detrol La) 2 mg PO DAILY [facility] Last Admin: 09/05/19 10:06 Dose: 2 mg Documented by: Discharge Diet: No Restrictions Discharge Activity: May Not Drive, May Shower, Use Walker May shower in (days): 3 Ice area for (Minutes): 20 - Every hour while awake. Weight Bearing Status: Weight bearing as tolerated Keep extremity elevated above heart level: Operative Extremity Call your doctor if your incision/area has: Continuous Slow Oozing, Sudden Increased Bleeding, Increased Pain/ Swelling, Increased Redness, Foul Smelling Discharge Call your doctor if you observe: Fever of 101 or Higher, Coldness, Increased Pain, Numbness or Tingling, Change in Color, Calf discomfort Remove Dressing in (days):: 10 Home Medications: Medications to take at Discharge Allopurinol [Zyloprim] 300 mg PO DAILY 04/12/16 Fenofibrate [Tricor] 48 mg PO DAILY 04/12/16 Lisinopril [Zestril] 40 mg PO DAILY 04/12/16 Magnesium Oxide [Mag-Ox 400] 400 mg PO DAILY 04/12/16 Multivit-Min/FA/Lycopen/Lutein [Centrum Silver Tablet] 1 ea PO DAILY 04/12/16 Fluticasone/Vilanterol [Breo Ellipta 200-25 Mcg INH] 1 ea IH DAILY 02/19/18 carvedilol 12.5 mg tablet 12.5 mg PO BID 02/27/19 Oxybutynin Chloride [Oxybutynin Chloride ER] 10 mg PO DAILY 04/08/19 Omeprazole [Prilosec] 40 mg PO QHS #60 cap 04/09/19 Hydrochlorothiazide 12.5 mg PO DAILY 09/02/19 Enoxaparin [Lovenox] 30 mg SUBCUT DAILY@0600 syringe 09/05/19 Ferrous Sulfate 325 mg PO 1200,1700 tab 09/05/19 Oxycodone [Oxyir] 5 mg PO Q4H PRN PRN 7 Days tab 09/05/19 Sertraline HCl [Zoloft] 100 mg PO QHS tab 09/05/19 Primary Care Physician: Ricky Bradley MD [Primary Care Provider] - Please follow up with your Primary Care Physician in: 1 Week Please Follow Up With: Joss Casillas MD When: 2 weeks call for Appointment [phone] Disposition: Detention facility Minutes spent on discharge:: 35 Patient Condition:: Stable Medical Necessity - Tobacco Use Smoking Status: Never smoker Tobacco Use: Non-smoker Meaningful Use Info Meaningful Use Diagnoses (Choose all that apply): None applicable <Genaro Morfin - Last Filed: 09/05/19 15:56> Discharge Date and Diagnosis - Secondary Discharge Diagnosis Chronic Problems: Chronic Problems (Last Reviewed 04/08/19 @ 11:[address] Debbie Hines, DO) Thrombocytopenia (Chronic) Anemia of chronic disease (Chronic) Morbid obesity (Chronic) DEMI (obstructive sleep apnea) (Chronic) Asthma (Chronic) CKD (chronic kidney disease), stage III (Chronic) PCK (polycystic kidney disease) (Chronic) Atherosclerosis of coronary artery of [place] heart without angina pectoris (Chronic) Nonrheumatic aortic (valve) stenosis (Chronic) AVR w/ #25 Shannan-Fisher 01/18/2011 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/11) AVR w/ #25 Shannan-Fisher 01/18/2011 Essential (primary) hypertension (Chronic) Hyperlipemia (Chronic) Right bundle branch block (RBBB) (Chronic) Hospital Course and Treatment Summary of Care Provided: This patient was seen in conjunction with NEEDLE LOOM OPERATOR, Mimi. I have independently interviewed and examined the patient and reviewed pertinent history, examination findings, laboratory and plan of management. I have reviewed the note and agree with the documented findings with the few additional points. In brief, patient is 79-year-old gentleman admitted with severe left hip pain after fall with x-ray finding consistent with a complicated, pathological: Left inter-trochanteric fracture hip with avulsion of lesser and greater trochanter with adjacent soft tissue hematoma with osteopenia. EKG shows normal sinus rhythm with right bundle branch block. Discussed with sponge hooker. Patient has history of aortic valve replacement, bioprosthetic. 2D echo was done which is suggestive of chronic heart failure with preserved EF/chronic diastolic heart failure. Interpretation Summary Normal LV size. Moderate concentric left ventricular hypertrophy. Left ventricular systolic function is normal. The estimated ejection fraction is 70 %. Stage 1 diastolic dysfunction. Mean transmitral valve gradient 6 mmHg. Stable appearing bioprosthetic aortic valve apparatus. Contrast injection was performed. Overall perioperative risk evaluation was done, NSQIP 10.7% / 10.9% therefore below average but patient has significant limited exercise capacity. Patient had hemoglobin drop from 10.8 preoperative to 7.3%. Most probably secondary to acute blood loss from surgery and hemodilution on baseline anemia of chronic disease. IV fluid discontinued. Patient was given 200 mg Venofer. Repeat H&H .09/08. Follow-up CBC daily in TCU. Patient also had chronic kidney disease and BUN/creatinine stable at 1.6. Other comorbidities include coronary artery disease, nonobstructive not on aspirin, stable asthma, CKD stage III, obstructive sleep apnea on CPAP, anxiety and depression and chronic thrombocytopenia. Patient platelet count is stable, less than 100,000 since February 2018. During hospital stay, patient platelet count was stable between 70,000-80,000 at baseline. On Lovenox 30 mg subcu daily for DVT prophylaxis. Discharge medication reconciliation done. Discharge follow-up instructions completed. Discharge process discussed with the patient and all questions were answered to patient's satisfaction. The patient is discharged to TCU. Total time spent, exact 35 minutes on discharge meds reconciliation, examination, coordination of care with nurses and ancillary staff, review of imaging and blood test and discussion with the patient on follow-up instructions I have discussed my assessment with NEEDLE LOOM OPERATORMimi and orders have been reviewed. [] Objective: Seen and examined. Patient had drop in H&H from admission 10.8-7.3 most likely postoperative loss and also hemodilution. No symptoms of anemia including chest pain, shortness of breath dizziness, lightheadedness or dyspnea on exertion. On exam General: Alert, Oriented x3, Cooperative HEENT: Atraumatic, PERRLA, EOMI, Normocephalic Neck: Supple, No JVD, Negative Carotid Bruits Lungs: Clear to auscultation, Air entry diminished in bilateral lung bases Cardiovascular: Regular rate, No murmurs Abdomen: Bowel Sounds Present, Soft, Non Tender, Obese Extremities: No edema, Capillary Refill Less than 3 Seconds Skin: No rashes, No breakdown Musculoskeletal: Arthritic Changes, Mild operative site tenderness on the left hip. No hematoma or active bleeding near the operative site. Surgical dressing is dry. Neurological: Cranial nerves II-XII grossly intact, Neuro grossly intact Psych/Mental Status: Normal Affect, Appropriate - Physical Exam Vitals/I&O's: Vital Signs Temp Pulse Resp BP Pulse Ox 98.5 F 76 16 114/52 L 93 09/05/19 15:03 09/05/19 15:05 09/05/19 15:03 09/05/19 15:03 09/05/19 15:03 Oxygen Flow Rate (L/min) 3 Oxygen Delivery Method Room Air Weight: 275 lb 5.718 oz Body Mass Index (BMI) 40.6 Intake and Output for Last 24 Hours 09/03/19 09/04/19 09/05/19 23:59 23:59 23:59 Intake Total 1826.5 / 1826.5 4250.25 / 4490.25 2702.08 / 2702.08 Output Total 1065 / 1065 800 / 1200 825 / 825 Balance 761.5 / 761.5 3450.25 / 3290.25 1877.08 / 1877.08 Microbiology Past 72 Hours 09/02/19 22:06 Mucosa - Nasopharyngeal Coronavirus COVID-19 PCR - Final Laboratory Results 09/04/19 16:36: POC Glucose 103 09/05/19 05:53: WBC 5.6, RBC 2.53 L, Hgb 7.3 L, Hct 24.3 L, MCV 96.0 H, MCH 28.9, MCHC 30.0 L, RDW Std Deviation 63.4 H, RDW Coeff of Raina 18.2 H, Plt Count 73 L, MPV 13.0 H, Immature Gran % (Auto) 0.500, Neut % (Auto) 76.5 H, Lymph % (Auto) 11.3 L, [place] % (Auto) 9.7, Eos % (Auto) 1.6, Baso % (Auto) 0.4, Absolute Neuts (auto) 4.3, Absolute Lymphs (auto) 0.63 L, Nucleated RBC % 0 09/05/19 05:53: Sodium 142, Potassium 4.3, Chloride 112 H, Carbon Dioxide 25.0, Anion Gap 5, BUN 27 H, Creatinine 1.63 H, Estim Creat Clear Calc 36.15, Est GFR (MDRD) Af Amer 53 L, Est GFR (MDRD) Non-Af 43 L, BUN/Creatinine Ratio 16.6, Glucose 123 H, Calcium 9.1 09/05/19 05:53: Iron 19 L, TIBC 284, Iron Saturation 6.7 L, Ferritin 24 L, Folate 15.20 09/05/19 13:10: Vitamin B12 315 09/05/19 13:10: Hgb 7.5 L, Hct 24.9 L Inpatient E&M: [id number] Disch Hosp
--- NOTE | 2019-09-05 15:20 | NURSING ---
Report called to PAYAL Wright in TCU
--- NOTE | 2019-09-05 15:24 | NURSING ---
Update called to daughterIngris. Informed of transfer to TCU
== END 2019-09-05 15:34 | disposition skilled nursing facility (03) | DRG 481 ==
LOC: ED 22:30 → PCU 09-03 02:16
PROVIDERS: Nurse Practitioner Family; Physician Assistant; Specialist; Admitting Provider Family Medicine; Emergency Provider Emergency Medicine; PCP Internal Medicine; Visit Provider Internal Medicine
PROC: 0QS736Z Reposition Left Upper Femur with Intramedullary Internal Fixation Device, Percutaneous Approach (ICD-10-PCS; CPT 27245; principal; 2019-09-03 14:30)
DX: S72.142A Displaced intertrochanteric fracture of left femur, initial encounter for closed fracture (principal); Q61.3 Polycystic kidney, unspecified; M84.652A Pathological fracture in other disease, left femur, initial encounter for fracture; Z68.41 Body mass index [BMI] 40.0-44.9, adult; I47.2 Ventricular tachycardia; W18.30XA Fall on same level, unspecified, initial encounter; Y93.89 Activity, other specified; Y92.008 Other place in unspecified non-institutional (private) residence as the place of occurrence of the external cause; Y99.8 Other external cause status; D69.6 Thrombocytopenia, unspecified; E66.01 Morbid (severe) obesity due to excess calories; G47.33 Obstructive sleep apnea (adult) (pediatric); J45.909 Unspecified asthma, uncomplicated; N18.3 Chronic kidney disease, stage 3 (moderate); D63.1 Anemia in chronic kidney disease; I25.10 Atherosclerotic heart disease of native coronary artery without angina pectoris; Z95.3 Presence of xenogenic heart valve; E78.5 Hyperlipidemia, unspecified; I12.9 Hypertensive chronic kidney disease with stage 1 through stage 4 chronic kidney disease, or unspecified chronic kidney disease; M19.90 Unspecified osteoarthritis, unspecified site; Z79.899 Other long term (current) drug therapy; Z96.652 Presence of left artificial knee joint; F32.9 Major depressive disorder, single episode, unspecified; F41.9 Anxiety disorder, unspecified; K21.9 Gastro-esophageal reflux disease without esophagitis; G62.9 Polyneuropathy, unspecified; M85.852 Other specified disorders of bone density and structure, left thigh; E83.42 Hypomagnesemia; E61.1 Iron deficiency; D53.9 Nutritional anemia, unspecified
CPT/HCPCS: 36415; 71045; 73502; 76000; 80048; 80053; 81001; 82607; 82728; 82746; 82962; 83036; 83540; 83550; 83735; 83880; 84443; 84484; 85014; 85018; 85025; 85610; 85730; 86850; 86900; 86901; 87635; 93005; 93306; 94640; 94762; 96374; 96375; 97163; 97166; 97530; 97802; 99251; 99285; C1713; G2023; J1756; J7030; J7040; Q9957; A4216; C8929; G0463; J2405; U0002

== ENCOUNTER 2019-09-05 16:10 | Inpatient (IN) | payer MEDICARE, OTHER, SELFPAY ==
[2019-09-03 12:38] VITALS: BMI 40.6
[2019-09-05 16:26] VITALS: BP 139/67; PULSE 73; RESP 16; TEMP 36.7; O2SAT 96; BMI 42.6; BMI 42.7
[2019-09-05] MEDS: Ferrous Sulfate 325 MG Tablet PO (18:09)
[2019-09-05] MEDS: Carvedilol 12.5 MG Tablet PO (18:09)
[2019-09-05 19:56] VITALS: PULSE 78; O2SAT 97
[2019-09-05] MEDS: Pantoprazole Sodium 40 MG Tablet PO (20:32)
[2019-09-05] MEDS: Sertraline 100 MG Tablet PO (20:33)
--- NOTE | 2019-09-05 21:41 | PCM.HP.STD ---
Problem List (1) Debility Status: Acute (2) Fall Status: Acute (3) Gout Status: Chronic (4) Hypomagnesemia Status: Chronic (5) Depression Status: Chronic (6) OAB (overactive bladder) Status: Chronic (7) GERD (gastroesophageal reflux disease) Status: Chronic (8) Body mass index (BMI) 40.0-44.9, adult Status: Chronic (9) Chronic kidney disease Status: Chronic (10) Coronary artery disease Status: Chronic (11) Hypertension Status: Chronic (12) Thrombocytopenia Status: Chronic (13) Anemia of chronic disease Status: Chronic (14) DEMI (obstructive sleep apnea) Status: Chronic (15) Asthma Status: Chronic Qualifiers: (16) PCK (polycystic kidney disease) Status: Chronic (17) Closed left hip fracture Status: Acute Qualifiers: (18) Hyperlipemia Status: Chronic Qualifiers: History of Present Illness Date of Admission: 09/05/19 Chief Complaint: Here for rehabilitation, strengthening, prior to discharge home with . 09/02/2019The patient is a 79 year old Male with below past medical history presented to [facility] Emergency Department with fall. 09/02/2019 X-ray pelvis, left hip showed left hip fracture. 09/02/2019 Chest X-ray stable mild cardiomegaly, small hiatal hernia, sterna wires. Fell on left side in garage. Hemoglobin 10.8, Platelets 89, Glucose 132, Cr 1.38. Fentanyl IV given. 09/02/2019 Admit to Hospital. Preoperative evaluation. 09/03/2019 EKG normal sinus rhythm, right bundle branch block. 09/03/2019 Echo Normal LV size. Moderate concentric left ventricular hypertrophy. EF 70%. Stage 1 diastolic dysfunction. 09/03/2019 Dr. Casillas performed left hip cephalo-medullary nail. Hemoglobin dropped from 10.8 to 7.3. Venofer IV given. Chronic kidney disease stable. Lovenox 30MG SC daily for DVT prophylaxis. 09/05/2019 Admit to TCU with debility, here for rehabilitation, strengthening, prior to discharge home with . Past Medical History Past Medical History (Chronic Problems): Chronic Problems (Last Reviewed 04/08/19 @ 11:[address] Debbie Hines, DO) Gout (Chronic) Hypomagnesemia (Chronic) Depression (Chronic) OAB (overactive bladder) (Chronic) GERD (gastroesophageal reflux disease) (Chronic) Body mass index (BMI) 40.0-44.9, adult (Chronic) Chronic kidney disease (Chronic) Coronary artery disease (Chronic) Hypertension (Chronic) Thrombocytopenia (Chronic) Anemia of chronic disease (Chronic) Morbid obesity (Chronic) DEMI (obstructive sleep apnea) (Chronic) Asthma (Chronic) CKD (chronic kidney disease), stage III (Chronic) PCK (polycystic kidney disease) (Chronic) Atherosclerosis of coronary artery of [place] heart without angina pectoris (Chronic) Nonrheumatic aortic (valve) stenosis (Chronic) AVR w/ #25 Shannan-Fisher 01/18/2011 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 Debbie Hines, DO) Atherosclerosis of coronary artery of [place] heart without angina pectoris (Chronic) I25.10 Nonrheumatic aortic (valve) stenosis (Chronic) I35.0 AVR w/ #25 Shannan-Fisher 01/18/2011 Essential (primary) hypertension (Chronic) I10 Hyperlipemia (Chronic) E78.5 Right bundle branch block (RBBB) (Chronic) I45.10 Anemia in chronic kidney disease N18.9, D63.1 Asthma J45.909 Chronic kidney disease, stage 3 N18.3 GERD (gastroesophageal reflux disease) K21.9 Gout M10.9 History of splenomegaly Z87.898 Multiple lung nodules R91.[address] 2010 Obesity E66.9 Obstructive sleep apnea G47.33 Osteoarthritis M19.90 Polycystic kidney disease Q61.3 Thrombocytopenia D69.6 Allergies acetaminophen [From Vicodin] Allergy (Verified 09/02/19 20:30) Other hydrocodone [From Vicodin] Allergy (Verified 09/02/19 20:30) Other strawberry Allergy (Verified 09/02/19 20:30) Hives venom-honey bee [bee venom (honey bee)] Allergy (Verified 09/02/19 20:30) Anaphylaxis Home Medications: Ambulatory Orders Medication Instructions Recorded Allopurinol [Zyloprim] 300 mg PO DAILY 04/12/16 Fenofibrate [Tricor] 48 mg PO DAILY 04/12/16 Lisinopril [Zestril] 40 mg PO DAILY 04/12/16 Magnesium Oxide [Mag-Ox 400] 400 mg PO DAILY 04/12/16 Multivit-Min/FA/Lycopen/Lutein 1 ea PO DAILY 04/12/16 [Centrum Silver Tablet] Fluticasone/Vilanterol [Breo 1 ea IH DAILY 02/19/18 Ellipta 200-25 Mcg INH] carvedilol 12.5 mg tablet 12.5 mg PO BID 02/27/19 Oxybutynin Chloride [Oxybutynin 10 mg PO DAILY 04/08/19 Chloride ER] Omeprazole [Prilosec] 40 mg PO QHS #60 cap 04/09/19 Hydrochlorothiazide 12.5 mg PO DAILY 09/02/19 Enoxaparin [Lovenox] 30 mg SUBCUT DAILY@0600 09/05/19 Ferrous Sulfate 325 mg PO 1200,1700 09/05/19 Oxycodone [Oxyir] 5 mg PO Q4H PRN PRN 7 Days tab 09/05/19 Sertraline HCl [Zoloft] 100 mg PO QHS 09/05/19 Surgical History: Surgical History (Last Reviewed 04/08/19 @ 11:[address] Debbie Hines DO) History of aortic valve replacement with bioprosthetic valve (Chronic) Onset Date: 01/18/11 Z95.3 AVR w/ #25 Shannan-Fisher 01/18/2011 History of knee replacement Z96.659 History of left heart catheterization Onset Date: 01/05/11 Z98.890 History of umbilical hernia repair Z98.890, Z87.19 Surgical History: herniorrhaphy - Umbilical hernia repair., total knee arthroplasty - Left total knee replacement., - - Aortic valve replacement with bioprosthetic valve. Psychiatric History: Anxiety, Depression Lives: Spouse/ Significant Other Smoking Status: Never smoker Tobacco Use: Non-smoker Alcohol: None Drugs: None - *Family History Maternal Family History: Family History (Last Reviewed 02/27/19 @ 13:[address] Parveen Charlton MD) Father CAD (coronary artery disease) Brother Diabetes Mother Heart disease History Items: Diabetes, Heart Disease Paternal Family History: Family History (Last Reviewed 02/27/19 @ 13:[address] Parveen Charlton MD) Father CAD (coronary artery disease) Brother Diabetes Mother Heart disease History Items: Cancer, High Cholesterol, Heart Disease, Hypertension Review of Systems Constitutional: Denies: Chills, Fever, Weight Change HEENT: Denies: Head Aches, Sinus Congestion, Sinus Drainage Cardiovascular: Denies: Chest Pain, Palpitations Respiratory: Denies: Cough, Shortness of breath at rest, Sputum production Gastrointestinal: Denies: Abdominal Pain, Nausea, Vomiting Genitourinary: Denies: Dysuria Musculoskeletal: Denies: Joint Pain, Joint Tenderness Skin: Denies: Rash, Wounds Neurological: Denies: Numbness, Tingling, Focal weakness Psychiatric: Denies: Anxiety, Depression, Homicidal Ideations, Suicidal Ideations Hematologic/ Lymphatic: Denies: Easy Bruising, Easy Bleeding VTE Information - Inpt Only VTE Present on Admission: No VTE Mechan Device Prophylaxis: Knee High TUYET Hose VTE Pharm Prophylaxis ordered?: Yes Patient Problems: Active and Suspected Problems (Last Reviewed 04/08/19 @ 11:[address] Debbie Hines DO) Debility (Acute) Fall (Acute) - Physical Exam Vitals/I&O's: Vital Signs Temp Pulse Resp BP Pulse Ox 98.1 F 78 16 139/67 H 97 09/05/19 16:26 09/05/19 19:56 09/05/19 16:26 09/05/19 16:26 09/05/19 19:56 Oxygen Delivery Method Room Air Weight: 131 kg Body Mass Index (BMI) 42.7 General: Alert, Oriented x3, Cooperative HEENT: Atraumatic, PERRLA, EOMI, Normocephalic Neck: Supple, No JVD, Negative Carotid Bruits Lungs: Clear to auscultation, Normal air movement Cardiovascular: Regular rate, No murmurs Abdomen: Bowel Sounds Present, Soft, Non Tender Extremities: No edema, Capillary Refill Less than 3 Seconds Skin: No rashes, No breakdown Musculoskeletal: No Tenderness to Palpation of Joints or Extremities Neurological: Cranial nerves II-XII grossly intact Psych/Mental Status: Normal Affect, Appropriate Microbiology Past 72 Hours 09/05/19 19:05 Mucosa - Nasopharyngeal Coronavirus COVID-19 PCR - Final Current Medications Acetaminophen (Tylenol) 1,000 mg PO Q6H PRN PRN PRN Reason: Pain Score 1-3/10 Allopurinol (Zyloprim) 300 mg PO DAILY@0800 [facility] Bisacodyl (Dulcolax) 10 mg RECTAL DAILY PRN PRN Reason: Constipation Calamine/Phenol (Calmoseptine Ointment) 1 applic TOPICAL 0600,2200 [facility]; Protocol Carvedilol (Coreg) 12.5 mg PO BID [facility] Last Admin: 09/05/19 18:09 Dose: 12.5 mg Documented by: Enoxaparin Sodium (Lovenox) 30 mg SC DAILY@0600 [facility] Fenofibrate (Tricor) 48 mg PO DAILY@0800 [facility] Ferrous Sulfate (Ferrous Sulfate) 325 mg PO 1200,1700 [facility] Last Admin: 09/05/19 18:09 Dose: 325 mg Documented by: Hydrochlorothiazide () 12.5 mg PO DAILY [facility] Lisinopril (Zestril) 40 mg PO DAILY [facility] Magnesium Oxide (Mag-Ox 400) 400 mg PO DAILY [facility] Multivitamins/Minerals (Multivitamin With Minerals (Bkc)) 1 tablet PO DAILY@0800 [facility] Nystatin (Mycostatin Powder) 1 applic TOPICAL 0600,2200 [facility]; Protocol Oxycodone HCl (Oxyir) 5 mg PO Q4H PRN PRN PRN Reason: Pain Score 4-10/10 Pantoprazole Sodium (Protonix) 40 mg PO QHS [facility] Last Admin: 09/05/19 20:32 Dose: 40 mg Documented by: Fluticasone/Salmeterol (Fluticasone-Salmeterol 232-14) 1 puff IH Q12 [facility] Sertraline HCl (Zoloft) 100 mg PO QHS [facility] Last Admin: 09/05/19 20:33 Dose: 100 mg Documented by: Tolterodine Tartrate (Detrol La) 2 mg PO DAILY [facility] Tuberculin PPD (Tubersol, Aplisol, Ppd) 5 tu ID X1 ONE Stop: 09/06/19 10:01 Tuberculin PPD (Tubersol, Aplisol, Ppd) 5 tu ID X1 ONE Stop: 09/13/19 10:01 Assessment/Plan All Active Problems (Last Reviewed 04/08/19 @ 11:[address] Debbie Hines DO) Debility (Acute) Fall (Acute) UGIB (upper gastrointestinal bleed) (Acute) Closed left hip fracture (Acute) 79 year old male with below past medical history hospitalized for left hip fracture, underwent left hip cephalo-medullary nail 09/03/[address] Casillas, admitted to TCU with debility, here for rehabilitation, strengthening, prior to discharge home with . Debility - PT/OT. Pain - Tylenol 1000MG Q6H PRN pain (1-3), Oxycodone 5MG Q4H PRN pain (4-10). Bowel - Miralax 17GM daily, Senna/colace 2 tablets BID, Dulcolax 10MG DE daily PRN. Adult immunization - Administer Prevnar 13, Pneumovax 23, Fluzone as appropriate. DVT prophylaxis - Lovenox 30MG SC daily. Gout - Allopurinol 300MG daily. Coronary Artery Disease - Coreg 12.5MG BID. Hyperlipidemia - Fenofibrate 48MG daily. Iron deficiency anemia - Ferrex 150MG daily, monitor H&H, may require transfusion. Asthma - Fluticasone Salmeterol 1 puff BID. Hypertension - Lisinopril 40MG daily, HCTZ 12.5MG daily. Hypomagnesemia - Magnesium Oxide 400MG daily. Skin irritation - Calmoseptine BID. Nutrition - MVI daily. Tinea Corporis - Nystatin powder BID. GERD - Pantoprazole 40MG QHS. Depression - Sertraline 100MG QHS, stable chronic detention use, GDR not recommended. Overactive bladder - Tolterodine 2MG daily.
[2019-09-06] MEDS: oxyCODONE 5 MG Tablet PO (00:31)
[2019-09-06] MEDS: Enoxaparin 30 MG/0.3 ML Syringe SC (05:46)
[2019-09-06] MEDS: hydroCHLOROthiazide 12.5mg 12.5 MG PO (05:46)
[2019-09-06] MEDS: Tolterodine Tartrate 2 MG CAP.SA PO (05:46)
[2019-09-06] MEDS: Carvedilol 12.5 MG Tablet PO ×2 (05:46→16:57)
[2019-09-06] MEDS: Lisinopril 40 MG Tablet PO (05:46)
[2019-09-06] MEDS: Senna/Docusate Sodium 1 Tablet 2 TABLET PO ×2 (05:47→16:57)
[2019-09-06] MEDS: Fluticasone/Salmeterol 232-14 Inhaler 1 PUFF IH ×2 (05:48→16:57)
[2019-09-06] MEDS: Polyethylene Glycol 3350 17 GM PACKET PO (05:50)
[2019-09-06] MEDS: Magnesium Oxide 400 MG Tablet PO (05:51)
[2019-09-06] MEDS: Menthol/Lanolin/Calamine/Znox 113 GM Tube 1 APPLIC TOPICAL ×2 (05:55→20:25)
[2019-09-06] MEDS: Nystatin Powder 15gm Bottle 1 APPLIC TOPICAL ×2 (05:56→20:26)
[2019-09-06 06:25] LABS: Absolute Lymphocyte Count 0.59 X10^3/uL (0.83-4.51); Absolute Neutrophil Count 3.7 X10^3/uL (2.0-7.7); Basophil# 0.03 X10^3/uL; Basophil% 0.6 % (0-1); Eosinophil# 0.11 X10^3/uL; Eosinophils% 2.3 % (0-5); Hematocrit 24.3 % (40-54); Hemoglobin 7.4 g/dL (13.0-16.5); Lymphocyte # 0.59 X10^3/ul (4.0); Lymphocyte % 12.2 % (19-41); Mean Corp Hgb Conc 30.5 g/dL (32-36); Mean Corpuscular Hgb 29.1 pg (27.0-32.0); Mean Corpuscular Volume 95.7 fL (80-94); Mean Platelet Vol. 12.4 fl (6.2-12.0); Monocyte# 0.42 X10^3/uL; Monocyte% 8.7 % (0-10); NRBC Flagged by Analyzer 0 % (0-5); Neutrophil # 3.66 X10^3/uL (2.7-7.7); Neutrophil % 75.8 % (47-70); POSITIVE COUNT YES; POSITIVE DIFFERENTIAL YES; Platelet Count 81 K/mm3 (150-450); RBC Distribution Width CV 17.9 % (11.6-14.6); RBC Distribution Width SD 61.9 fl (35.1-43.9); Red Blood Count 2.54 M/mm3 (4.6-6.2); White Blood Count 4.8 K/mm3 (4.4-11.0)
[2019-09-06 06:30] LABS: Differential Indicated SCAN CRITERIA MET
[2019-09-06 06:45] LABS: Anion Gap 4 (5-15); BUN 32 mg/dL (7-18); BUN/Creat Ratio 17.3 RATIO (10-20); Calcium,Total 9.5 mg/dL (8.5-10.1); Chloride 111 mmol/L (98-107); Creatinine, Serum 1.85 mg/dL (0.70-1.30); EST Glomerular Filtration Rate 38 mL/min (>60); Est Glom Filt Rate - Afr Amer 45 mL/min (>60); Estimated Creatinine Clearance 31.85 ml/min; Glucose 115 mg/dL (74-106); Potassium 4.4 mmol/L (3.5-5.1); Sodium Level 140 mmol/L (136-145)
[2019-09-06 06:59] LABS: Differential Comment SCANNED
[2019-09-06] MEDS: Fenofibrate 48 MG Tablet PO (08:00)
[2019-09-06] MEDS: Multivitamins,Ther W-Minerals Tablet 1 TABLET PO (08:00)
[2019-09-06] MEDS: Iron Polysaccharide Complex 150 MG CAPSULE PO (08:00)
[2019-09-06] MEDS: Allopurinol 300 MG Tablet PO (08:01)
[2019-09-06] MEDS: Tuberculin,Purif.prot.deriv. 50 TU/ML Vial 5 ML ID (10:00)
--- NOTE | 2019-09-06 12:55 | CASEMGMT ---
Social Work Discussed code status with pt. Pt confirmed full code. MOLST form completed and placed in chart. Danielle Salinas MSW [employer]
--- NOTE | 2019-09-06 14:11 | PCM.PN.RX ---
<RonnReji bakeri - Last Filed: 09/06/19 14:11> Progress Note - Pharmacy Subjective: TCU Admission Objective: Allergies acetaminophen [From Vicodin] Allergy (Verified 09/02/19 20:30) Other hydrocodone [From Vicodin] Allergy (Verified 09/02/19 20:30) Other strawberry Allergy (Verified 09/02/19 20:30) Hives venom-honey bee [bee venom (honey bee)] Allergy (Verified 09/02/19 20:30) Anaphylaxis Current Medications Generic Name Dose Route Start Last Admin Trade Name Freq PRN Reason Stop Dose Admin Acetaminophen 1,000 mg 09/05/19 21:01 Tylenol PO Q6H PRN PRN Pain Score 1-3/10 Allopurinol 300 mg 09/06/19 08:00 09/06/19 08:01 Zyloprim PO 300 mg DAILY@0800 [facility] Administration Bisacodyl 10 mg 09/05/19 16:37 Dulcolax RECTAL DAILY PRN Constipation Calamine/Phenol 1 applic 09/06/19 06:00 09/06/19 05:55 Calmoseptine Ointment TOPICAL 1 applicatio 0600,2200 [facility] Administration Protocol Carvedilol 12.5 mg 09/05/19 18:00 09/06/19 05:46 Coreg PO 12.5 mg BID [facility] Administration Enoxaparin Sodium 30 mg 09/06/19 06:00 09/06/19 05:46 Lovenox SC 30 mg DAILY@0600 [facility] Administration Fenofibrate 48 mg 09/06/19 08:00 09/06/19 08:00 Tricor PO 48 mg DAILY@0800 [facility] Administration Hydrochlorothiazide 12.5 mg 09/06/19 06:00 09/06/19 05:46 PO 12.5 mg DAILY [facility] Administration Lisinopril 40 mg 09/06/19 06:00 09/06/19 05:46 Zestril PO 40 mg DAILY [facility] Administration Magnesium Oxide 400 mg 09/06/19 06:00 09/06/19 05:51 Mag-Ox 400 PO 400 mg DAILY [facility] Administration Multivitamins/Minerals 1 tablet 09/06/19 08:00 09/06/19 08:00 Multivitamin With Minerals (Bkc) PO 1 tablet DAILY@0800 [facility] Administration Nystatin 1 applic 09/06/19 06:00 09/06/19 05:56 Mycostatin Powder TOPICAL 1 applicatio 0600,2200 [facility] Administration Protocol Oxycodone HCl 5 mg 09/05/19 16:46 09/06/19 00:31 Oxyir PO 5 mg Q4H PRN PRN Administration Pain Score 4-10/10 Pantoprazole Sodium 40 mg 09/05/19 22:00 09/05/19 20:32 Protonix PO 40 mg QHS [facility] Administration Polyethylene Glycol 17 gm 09/06/19 06:00 09/06/19 05:50 Miralax PO 17 gm DAILY [facility] Administration Polysaccharide Iron Complex 150 mg 09/06/19 08:00 09/06/19 08:00 Ferrex 150 PO 150 mg DAILYCM [facility] Administration Fluticasone/Salmeterol 1 puff 09/06/19 06:00 09/06/19 05:48 Fluticasone-Salmeterol 232-14 IH 1 puff Q12 [facility] Administration Senna/Docusate Sodium 2 tablet 09/06/19 06:00 09/06/19 05:47 Senokot-S, Lori-Colace PO 2 tablet BID [facility] Administration Sertraline HCl 100 mg 09/05/19 22:00 09/05/19 20:33 Zoloft PO 100 mg QHS [facility] Administration Tolterodine Tartrate 2 mg 09/06/19 06:00 09/06/19 05:46 Detrol La PO 2 mg DAILY [facility] Administration Tuberculin PPD 5 tu 09/13/19 10:00 Tubersol, Aplisol, Ppd ID 09/13/19 10:01 X1 ONE Problem List (Last Reviewed 04/08/19 @ 11:[address] Debbie Hines, DO) Debility (Acute) Fall (Acute) Gout (Chronic) Hypomagnesemia (Chronic) Depression (Chronic) OAB (overactive bladder) (Chronic) GERD (gastroesophageal reflux disease) (Chronic) Body mass index (BMI) 40.0-44.9, adult (Chronic) Chronic kidney disease (Chronic) Coronary artery disease (Chronic) Hypertension (Chronic) Vital Signs Temp Pulse Resp BP Pulse Ox 98.1 F 78 16 139/67 H 97 09/05/19 16:26 09/05/19 19:56 09/05/19 16:26 09/05/19 16:26 09/05/19 19:56 Oxygen Delivery Method Room Air Weight: 131 kg Body Mass Index (BMI) 42.7 Sodium 140 mmol/L (136-145) 09/06/19 05:42 Potassium 4.4 mmol/L (3.5-5.1) 09/06/19 05:42 Chloride 111 mmol/L (98-107) H 09/06/19 05:42 Carbon Dioxide 25.0 mmol/L (21.0-32.0) 09/06/19 05:42 Anion Gap 4 (5-15) L 09/06/19 05:42 BUN 32 mg/dL (7-18) H 09/06/19 05:42 Creatinine 1.85 mg/dL (0.70-1.30) H 09/06/19 05:42 Est GFR (MDRD) Af Amer 45 mL/min (>60) L 09/06/19 05:42 Est GFR (MDRD) Non-Af 38 mL/min (>60) L 09/06/19 05:42 BUN/Creatinine Ratio 17.3 RATIO (-20) 09/06/19 05:42 Glucose 115 mg/dL (74-106) H 09/06/19 05:42 Assessment/Plan: 1. Pain: acetaminophen 1000mg PO Q6H PRN pain 1-3/10 and oxycodone 5mg PO Q4H PRN pain 4-10/10. Please continue to monitor for increased pain, PRN usage, constipation and respiratory depression. *2. DVT prophylaxis: enoxaparin 30mg SC daily. Platelets around baseline at 81. Please consider D/C if platelets drop further. Please continue to monitor renal function and S/S of bleeding/DVT. 3. Gout: allopurinol 300mg PO daily. Please continue to monitor renal function and for S/S of gout. 4. CAD/hypertension: carvedilol 12.5mg PO BID, lisinopril 40mg PO daily, hydrochlorothiazide 12.5mg PO daily. Please continue to monitor BP (last reading 139/67 mmHg), HR (last reading 78 bpm), potassium and renal function. *5. Hyperlipidemia: fenofibrate 48mg PO daily. I did not see a lipid panel on file. Please consider adding one now and then annually as clinically appropriate. Thanks. 6. Iron deficiency anemia: Ferrex 150mg PO DAILYCM. Please continue to monitor hemoglobin (last level 7.4) and for dark stools. 7. Asthma: fluticasone/salmeterol 232/14mcg inhaler 1 inhalation BID. Please continue to monitor for S/S of asthma. Please rinse mouth with water and spit out to prevent thrush. 8. Hypomagnesemia: magnesium oxide 400mg PO daily. Last level 1.8. Please continue to monitor magnesium levels and for diarrhea. 9. GERD: pantoprazole 40mg PO QHS. Please continue to monitor for S/S of GERD. 10. Overactive bladder: tolterodine 2mg PO daily. Please continue to monitor for overactive bladder, dry mouth, constipation and blurry vision. Psychotropic Medications: 1. Depression: sertraline 100mg PO QHS. Please see physician note regarding GDR. Unnecessary Medications: None Bowel Regimen: Miralax 17gm PO daily, senna/docusate 2T PO BID, and bisacodyl 10mh [place] daily PRN constipation. Please continue to monitor for constipation, diarrhea, and PRN usage. Date of Note:: 09/06/19 - Provider Comments Provider responsibility: Provider responsible to enter orders to implement recommendations <Buddy Infante Chi - Last Filed: 09/06/19 20:06> Progress Note - Pharmacy Subjective: [] Objective: Allergies acetaminophen [From Vicodin] Allergy (Verified 09/02/19 20:30) Other hydrocodone [From Vicodin] Allergy (Verified 09/02/19 20:30) Other strawberry Allergy (Verified 09/02/19 20:30) Hives venom-honey bee [bee venom (honey bee)] Allergy (Verified 09/02/19 20:30) Anaphylaxis atorvastatin Adverse Reaction (Verified 09/06/19 14:12) PT UNSURE OF REACTION montelukast Adverse Reaction (Verified 09/06/19 14:13) PT UNSURE OF REACTION Current Medications Generic Name Dose Route Start Last Admin Trade Name Freq PRN Reason Stop Dose Admin Acetaminophen 1,000 mg 09/05/19 21:01 Tylenol PO Q6H PRN PRN Pain Score 1-3/10 Allopurinol 300 mg 09/06/19 08:00 09/06/19 08:01 Zyloprim PO 300 mg DAILY@0800 [facility] Administration Bisacodyl 10 mg 09/05/19 16:37 Dulcolax RECTAL DAILY PRN Constipation Calamine/Phenol 1 applic 09/06/19 06:00 09/06/19 05:55 Calmoseptine Ointment TOPICAL 1 applicatio 599,2199 [facility] Administration Protocol Carvedilol 12.5 mg 09/05/19 18:00 09/06/19 16:57 Coreg PO 12.5 mg BID [facility] Administration Enoxaparin Sodium 30 mg 09/06/19 06:00 09/06/19 05:46 Lovenox SC 30 mg DAILY@0600 [facility] Administration Fenofibrate 48 mg 09/06/19 08:00 09/06/19 08:00 Tricor PO 48 mg DAILY@0800 [facility] Administration Hydrochlorothiazide 12.5 mg 09/06/19 06:00 09/06/19 05:46 PO 12.5 mg DAILY [facility] Administration Lisinopril 40 mg 09/06/19 06:00 09/06/19 05:46 Zestril PO 40 mg DAILY [facility] Administration Magnesium Oxide 400 mg 09/06/19 06:00 09/06/19 05:51 Mag-Ox 400 PO 400 mg DAILY [facility] Administration Multivitamins/Minerals 1 tablet 09/06/19 08:00 09/06/19 08:00 Multivitamin With Minerals (Bkc) PO 1 tablet DAILY@0800 [facility] Administration Nystatin 1 applic 09/06/19 06:00 09/06/19 05:56 Mycostatin Powder TOPICAL 1 applicatio 599,2199 [facility] Administration Protocol Oxycodone HCl 5 mg 09/05/19 16:46 09/06/19 00:31 Oxyir PO 5 mg Q4H PRN PRN Administration Pain Score 4-10/10 Pantoprazole Sodium 40 mg 09/05/19 22:00 09/05/19 20:32 Protonix PO 40 mg QHS [facility] Administration Polyethylene Glycol 17 gm 09/06/19 06:00 09/06/19 05:50 Miralax PO 17 gm DAILY [facility] Administration Polysaccharide Iron Complex 150 mg 09/06/19 08:00 09/06/19 08:00 Ferrex 150 PO 150 mg DAILYCM [facility] Administration Fluticasone/Salmeterol 1 puff 09/06/19 06:00 09/06/19 16:57 Fluticasone-Salmeterol 232-14 IH 1 puff Q12 [facility] Administration Senna/Docusate Sodium 2 tablet 09/06/19 06:00 09/06/19 16:57 Senokot-S, Lori-Colace PO 2 tablet BID [facility] Administration Sertraline HCl 100 mg 09/05/19 22:00 09/05/19 20:33 Zoloft PO 100 mg QHS [facility] Administration Tolterodine Tartrate 2 mg 09/06/19 06:00 09/06/19 05:46 Detrol La PO 2 mg DAILY [facility] Administration Tuberculin PPD 5 tu 09/13/19 10:00 Tubersol, Aplisol, Ppd ID 09/13/19 10:01 X1 ONE Problem List (Last Reviewed 04/08/19 @ 11:[address] Debbie Hines DO) Debility (Acute) Fall (Acute) Gout (Chronic) Hypomagnesemia (Chronic) Depression (Chronic) OAB (overactive bladder) (Chronic) GERD (gastroesophageal reflux disease) (Chronic) Body mass index (BMI) 40.0-44.9, adult (Chronic) Chronic kidney disease (Chronic) Coronary artery disease (Chronic) Hypertension (Chronic) Vital Signs Temp Pulse Resp BP Pulse Ox 98.4 F 66 18 142/65 H 97 09/06/19 15:04 09/06/19 15:04 09/06/19 15:04 09/06/19 15:04 09/06/19 15:04 Oxygen Delivery Method Room Air Weight: 131 kg Body Mass Index (BMI) 42.7 Sodium 140 mmol/L (136-145) 09/06/19 05:42 Potassium 4.4 mmol/L (3.5-5.1) 09/06/19 05:42 Chloride 111 mmol/L (98-107) H 09/06/19 05:42 Carbon Dioxide 25.0 mmol/L (21.0-32.0) 09/06/19 05:42 Anion Gap 4 (5-15) L 09/06/19 05:42 BUN 32 mg/dL (7-18) H 09/06/19 05:42 Creatinine 1.85 mg/dL (0.70-1.30) H 09/06/19 05:42 Est GFR (MDRD) Af Amer 45 mL/min (>60) L 09/06/19 05:42 Est GFR (MDRD) Non-Af 38 mL/min (>60) L 09/06/19 05:42 BUN/Creatinine Ratio 17.3 RATIO (10-20) 09/06/19 05:42 Glucose 115 mg/dL (74-106) H 09/06/19 05:42 Assessment/Plan: Psychotropic Medications: Unnecessary Medications: Bowel Regimen: - Provider Comments Provider responsibility: Provider responsible to enter orders to implement recommendations Provider Comments to Recommendations by Pharmacy: Agree
[2019-09-06 15:04] VITALS: BP 142/65; PULSE 66; RESP 18; TEMP 36.9; O2SAT 97
[2019-09-06] MEDS: Sertraline 100 MG Tablet PO (20:26)
[2019-09-06] MEDS: Pantoprazole Sodium 40 MG Tablet PO (20:26)
[2019-09-07 04:15] VITALS: BP 125/57; PULSE 69; RESP 18; TEMP 37; O2SAT 96
[2019-09-07] MEDS: Menthol/Lanolin/Calamine/Znox 113 GM Tube 1 APPLIC TOPICAL ×2 (04:23→20:48)
[2019-09-07] MEDS: Nystatin Powder 15gm Bottle 1 APPLIC TOPICAL ×2 (04:23→20:48)
[2019-09-07] MEDS: hydroCHLOROthiazide 12.5mg 12.5 MG PO (04:24)
[2019-09-07] MEDS: Lisinopril 40 MG Tablet PO (04:24)
[2019-09-07] MEDS: Magnesium Oxide 400 MG Tablet PO (04:24)
[2019-09-07] MEDS: Enoxaparin 30 MG/0.3 ML Syringe SC (04:24)
[2019-09-07] MEDS: Senna/Docusate Sodium 1 Tablet 2 TABLET PO ×2 (04:24→20:45)
[2019-09-07] MEDS: Polyethylene Glycol 3350 17 GM PACKET PO (04:24)
[2019-09-07] MEDS: Tolterodine Tartrate 2 MG CAP.SA PO (04:25)
[2019-09-07] MEDS: Fluticasone/Salmeterol 232-14 Inhaler 1 PUFF IH ×2 (04:25→20:44)
[2019-09-07] MEDS: Carvedilol 12.5 MG Tablet PO ×2 (04:25→20:45)
[2019-09-07] MEDS: Allopurinol 300 MG Tablet PO (08:41)
[2019-09-07] MEDS: Fenofibrate 48 MG Tablet PO (08:41)
[2019-09-07] MEDS: Iron Polysaccharide Complex 150 MG CAPSULE PO (08:41)
[2019-09-07] MEDS: Multivitamins,Ther W-Minerals Tablet 1 TABLET PO (08:41)
[2019-09-07 20:34] VITALS: BP 153/86; PULSE 73; RESP 18; TEMP 37.2; O2SAT 96
[2019-09-07] MEDS: Pantoprazole Sodium 40 MG Tablet PO (20:45)
[2019-09-07] MEDS: Sertraline 100 MG Tablet PO (20:45)
[2019-09-08 05:55] VITALS: BP 125/66; PULSE 72; RESP 18; TEMP 36.6; O2SAT 93
[2019-09-08] MEDS: Polyethylene Glycol 3350 17 GM PACKET PO (05:58)
[2019-09-08] MEDS: Nystatin Powder 15gm Bottle 1 APPLIC TOPICAL ×2 (05:59→21:15)
[2019-09-08] MEDS: Magnesium Oxide 400 MG Tablet PO (05:59)
[2019-09-08] MEDS: Enoxaparin 30 MG/0.3 ML Syringe SC (05:59)
[2019-09-08] MEDS: Tolterodine Tartrate 2 MG CAP.SA PO (05:59)
[2019-09-08] MEDS: hydroCHLOROthiazide 12.5mg 12.5 MG PO (05:59)
[2019-09-08] MEDS: Menthol/Lanolin/Calamine/Znox 113 GM Tube 1 APPLIC TOPICAL ×2 (05:59→21:16)
[2019-09-08] MEDS: Lisinopril 40 MG Tablet PO (05:59)
[2019-09-08] MEDS: Carvedilol 12.5 MG Tablet PO ×2 (05:59→18:15)
[2019-09-08] MEDS: Fluticasone/Salmeterol 232-14 Inhaler 1 PUFF IH ×2 (06:00→18:15)
[2019-09-08] MEDS: Senna/Docusate Sodium 1 Tablet 2 TABLET PO (06:00)
[2019-09-08 06:08] LABS: Hematocrit 26.7 % (40-54); Hemoglobin 8.6 g/dL (13.0-16.5)
[2019-09-08] MEDS: Allopurinol 300 MG Tablet PO (08:04)
[2019-09-08] MEDS: Iron Polysaccharide Complex 150 MG CAPSULE PO (08:04)
[2019-09-08] MEDS: Fenofibrate 48 MG Tablet PO (08:04)
[2019-09-08] MEDS: Multivitamins,Ther W-Minerals Tablet 1 TABLET PO (08:04)
[2019-09-08] MEDS: Sertraline 100 MG Tablet PO (21:15)
[2019-09-08] MEDS: Pantoprazole Sodium 40 MG Tablet PO (21:15)
[2019-09-09] MEDS: Enoxaparin 30 MG/0.3 ML Syringe SC (06:38)
[2019-09-09] MEDS: Carvedilol 12.5 MG Tablet PO ×2 (06:38→17:26)
[2019-09-09] MEDS: Magnesium Oxide 400 MG Tablet PO (06:38)
[2019-09-09] MEDS: Fluticasone/Salmeterol 232-14 Inhaler 1 PUFF IH ×2 (06:38→17:26)
[2019-09-09] MEDS: hydroCHLOROthiazide 12.5mg 12.5 MG PO (06:38)
[2019-09-09] MEDS: Lisinopril 40 MG Tablet PO (06:38)
[2019-09-09] MEDS: Tolterodine Tartrate 2 MG CAP.SA PO (06:38)
[2019-09-09] MEDS: Menthol/Lanolin/Calamine/Znox 113 GM Tube 1 APPLIC TOPICAL ×2 (06:40→20:18)
[2019-09-09] MEDS: Nystatin Powder 15gm Bottle 1 APPLIC TOPICAL ×2 (06:41→20:18)
[2019-09-09 06:45] VITALS: BP 166/91; PULSE 79; RESP 18; TEMP 36.6; O2SAT 97
[2019-09-09] MEDS: Multivitamins,Ther W-Minerals Tablet 1 TABLET PO (08:00)
[2019-09-09] MEDS: Iron Polysaccharide Complex 150 MG CAPSULE PO (08:00)
[2019-09-09] MEDS: Allopurinol 300 MG Tablet PO (08:01)
[2019-09-09] MEDS: Fenofibrate 48 MG Tablet PO (08:01)
--- NOTE | 2019-09-09 11:14 | NURSING ---
Pt states he spoke to his , Sagrario, on his cell phone this morning
[2019-09-09 15:34] VITALS: BP 120/61; PULSE 60; RESP 18; TEMP 36.8; O2SAT 95
[2019-09-09] MEDS: Sertraline 100 MG Tablet PO (20:19)
[2019-09-09] MEDS: Pantoprazole Sodium 40 MG Tablet PO (20:19)
[2019-09-10 05:22] VITALS: BP 124/74; PULSE 60; RESP 18; TEMP 36.2; O2SAT 95
[2019-09-10] MEDS: Carvedilol 12.5 MG Tablet PO ×2 (05:25→16:28)
[2019-09-10] MEDS: Enoxaparin 30 MG/0.3 ML Syringe SC (05:25)
[2019-09-10] MEDS: Tolterodine Tartrate 2 MG CAP.SA PO (05:26)
[2019-09-10] MEDS: Lisinopril 40 MG Tablet PO (05:26)
[2019-09-10] MEDS: Magnesium Oxide 400 MG Tablet PO (05:26)
[2019-09-10] MEDS: hydroCHLOROthiazide 12.5mg 12.5 MG PO (05:27)
[2019-09-10] MEDS: Nystatin Powder 15gm Bottle 1 APPLIC TOPICAL ×2 (05:27→20:47)
[2019-09-10] MEDS: Fluticasone/Salmeterol 232-14 Inhaler 1 PUFF IH ×2 (05:27→16:28)
[2019-09-10] MEDS: Menthol/Lanolin/Calamine/Znox 113 GM Tube 1 APPLIC TOPICAL ×2 (05:27→20:46)
[2019-09-10 05:49] LABS: Hematocrit 30.5 % (40-54); Hemoglobin 9.4 g/dL (13.0-16.5)
[2019-09-10] MEDS: Iron Polysaccharide Complex 150 MG CAPSULE PO (08:22)
[2019-09-10] MEDS: Multivitamins,Ther W-Minerals Tablet 1 TABLET PO (08:22)
[2019-09-10] MEDS: Fenofibrate 48 MG Tablet PO (08:22)
[2019-09-10] MEDS: Allopurinol 300 MG Tablet PO (08:23)
[2019-09-10] MEDS: oxyCODONE 5 MG Tablet PO (12:25)
[2019-09-10 15:54] VITALS: BP 132/61; PULSE 74; RESP 18; TEMP 36.3; O2SAT 96
[2019-09-10] MEDS: Sertraline 100 MG Tablet PO (20:46)
[2019-09-10] MEDS: Pantoprazole Sodium 40 MG Tablet PO (20:46)
[2019-09-10 20:52] VITALS: PULSE 73; O2SAT 98
[2019-09-11] MEDS: Nystatin Powder 15gm Bottle 1 APPLIC TOPICAL ×2 (06:29→21:59)
[2019-09-11] MEDS: Menthol/Lanolin/Calamine/Znox 113 GM Tube 1 APPLIC TOPICAL ×2 (06:29→21:58)
[2019-09-11] MEDS: Enoxaparin 30 MG/0.3 ML Syringe SC (06:29)
[2019-09-11] MEDS: Lisinopril 40 MG Tablet PO (06:30)
[2019-09-11] MEDS: Tolterodine Tartrate 2 MG CAP.SA PO (06:30)
[2019-09-11] MEDS: Carvedilol 12.5 MG Tablet PO ×2 (06:30→17:12)
[2019-09-11] MEDS: hydroCHLOROthiazide 12.5mg 12.5 MG PO (06:30)
[2019-09-11] MEDS: Fluticasone/Salmeterol 232-14 Inhaler 1 PUFF IH ×2 (06:31→17:12)
[2019-09-11] MEDS: Magnesium Oxide 400 MG Tablet PO (06:35)
[2019-09-11 06:36] VITALS: BP 116/71; PULSE 67; RESP 16; TEMP 36.6; O2SAT 97
[2019-09-11] MEDS: Allopurinol 300 MG Tablet PO (08:08)
[2019-09-11] MEDS: Iron Polysaccharide Complex 150 MG CAPSULE PO (08:08)
[2019-09-11] MEDS: Fenofibrate 48 MG Tablet PO (08:08)
[2019-09-11] MEDS: Multivitamins,Ther W-Minerals Tablet 1 TABLET PO (08:08)
[2019-09-11 12:20] VITALS: BP 109/53; PULSE 66; RESP 16; TEMP 36.2; O2SAT 93
--- NOTE | 2019-09-11 16:00 | CASEMGMT ---
Social Work IDT met with patient, and daughter via conference call for care plan meeting. Discussed patient's progress in therapy. Pt is min assist for bed mobility, and stand pivot transfers with FWW, sitting to standing is max x1-2, ambulating 18 ft with FWW at min to CGA. Pt is mod assist for bathing below the knees and thoroughness, set up for UE dressing, total assist for LE dressing and toileting. Pt enjoying FaceTiming with family, loves being outdoors and 1:1 visits with Activities. Pt is on a cardiac, low sodium diet, intake 25-100%, and on dieretic to reduce swelling in legs, but are being myriam wrapped. Pt is out of room isolation 09/17, stew cpap, and doing well since blood transfusion 09/06. Pt is receiving iron supplements as well. Explained Medicare benefit. Pt's goal is to return home with spouse, stronger to reduce falls. Will continue to follow. MOLLY Escobedo [employer]LTRY GRADER
--- NOTE | 2019-09-11 19:08 | NURSING ---
Family updated by PAYAL Kelly and answered any questions they had.
[2019-09-11] MEDS: Pantoprazole Sodium 40 MG Tablet PO (21:59)
[2019-09-11] MEDS: Sertraline 100 MG Tablet PO (22:00)
[2019-09-12 06:19] VITALS: BP 131/71; PULSE 68; RESP 17; TEMP 36.6; O2SAT 97
[2019-09-12] MEDS: Menthol/Lanolin/Calamine/Znox 113 GM Tube 1 APPLIC TOPICAL ×2 (06:21→20:14)
[2019-09-12] MEDS: Fluticasone/Salmeterol 232-14 Inhaler 1 PUFF IH ×2 (06:21→17:45)
[2019-09-12] MEDS: Nystatin Powder 15gm Bottle 1 APPLIC TOPICAL ×2 (06:21→20:14)
[2019-09-12] MEDS: hydroCHLOROthiazide 12.5mg 12.5 MG PO (06:22)
[2019-09-12] MEDS: Tolterodine Tartrate 2 MG CAP.SA PO (06:22)
[2019-09-12] MEDS: Carvedilol 12.5 MG Tablet PO ×2 (06:22→17:45)
[2019-09-12] MEDS: Enoxaparin 30 MG/0.3 ML Syringe SC (06:22)
[2019-09-12] MEDS: Magnesium Oxide 400 MG Tablet PO (06:22)
[2019-09-12] MEDS: Lisinopril 40 MG Tablet PO (06:23)
[2019-09-12] MEDS: Multivitamins,Ther W-Minerals Tablet 1 TABLET PO (08:09)
[2019-09-12] MEDS: Allopurinol 300 MG Tablet PO (08:09)
[2019-09-12] MEDS: Fenofibrate 48 MG Tablet PO (08:09)
[2019-09-12] MEDS: Iron Polysaccharide Complex 150 MG CAPSULE PO (08:09)
[2019-09-12] MEDS: oxyCODONE 5 MG Tablet PO (10:20)
[2019-09-12 14:46] VITALS: BP 100/54; PULSE 68; RESP 20; TEMP 36.7; O2SAT 96
[2019-09-12] MEDS: Pantoprazole Sodium 40 MG Tablet PO (20:13)
[2019-09-12] MEDS: Sertraline 100 MG Tablet PO (20:13)
[2019-09-13 05:27] LABS: Absolute Lymphocyte Count 0.65 X10^3/uL (0.83-4.51); Basophil# 0.02 X10^3/uL; Basophil% 0.5 % (0-1); Eosinophil# 0.19 X10^3/uL; Eosinophils% 4.4 % (0-5); Hematocrit 29.6 % (40-54); Hemoglobin 9.3 g/dL (13.0-16.5); Lymphocyte # 0.65 X10^3/ul (4.0); Lymphocyte % 15.2 % (19-41); Mean Corp Hgb Conc 31.4 g/dL (32-36); Mean Corpuscular Hgb 30.2 pg (27.0-32.0); Mean Corpuscular Volume 96.1 fL (80-94); Mean Platelet Vol. 11.2 fl (6.2-12.0); Monocyte# 0.34 X10^3/uL; NRBC Flagged by Analyzer 0 % (0-5); Neutrophil # 3.04 X10^3/uL (2.7-7.7); Neutrophil % 71.2 % (47-70); POSITIVE MORPHOLOGY YES; Platelet Count 119 K/mm3 (150-450); RBC Distribution Width CV 19.8 % (11.6-14.6); RBC Distribution Width SD 68.1 fl (35.1-43.9); Red Blood Count 3.08 M/mm3 (4.6-6.2); White Blood Count 4.3 K/mm3 (4.4-11.0)
[2019-09-13 05:53] LABS: Anion Gap 6 (5-15); BUN 47 mg/dL (7-18); BUN/Creat Ratio 28.7 RATIO (10-20); Calcium,Total 10.5 mg/dL (8.5-10.1); Chloride 107 mmol/L (98-107); Creatinine, Serum 1.64 mg/dL (0.70-1.30); EST Glomerular Filtration Rate 43 mL/min (>60); Est Glom Filt Rate - Afr Amer 52 mL/min (>60); Estimated Creatinine Clearance 35.92 ml/min; Glucose 105 mg/dL (74-106); Potassium 4.5 mmol/L (3.5-5.1); Sodium Level 139 mmol/L (136-145)
[2019-09-13 06:07] VITALS: BP 125/76; PULSE 69; RESP 18; TEMP 36.5; O2SAT 95
[2019-09-13] MEDS: Nystatin Powder 15gm Bottle 1 APPLIC TOPICAL ×2 (06:09→21:33)
[2019-09-13] MEDS: Menthol/Lanolin/Calamine/Znox 113 GM Tube 1 APPLIC TOPICAL ×2 (06:09→21:33)
[2019-09-13] MEDS: oxyCODONE 5 MG Tablet PO (06:15)
[2019-09-13] MEDS: Carvedilol 12.5 MG Tablet PO ×2 (06:17→16:56)
[2019-09-13] MEDS: Enoxaparin 30 MG/0.3 ML Syringe SC (06:17)
[2019-09-13] MEDS: hydroCHLOROthiazide 12.5mg 12.5 MG PO (06:17)
[2019-09-13] MEDS: Fluticasone/Salmeterol 232-14 Inhaler 1 PUFF IH ×2 (06:17→16:56)
[2019-09-13] MEDS: Tolterodine Tartrate 2 MG CAP.SA PO (06:17)
[2019-09-13] MEDS: Lisinopril 40 MG Tablet PO (06:18)
[2019-09-13] MEDS: Magnesium Oxide 400 MG Tablet PO (06:18)
[2019-09-13 06:19] LABS: Differential Indicated SCAN CRITERIA MET
[2019-09-13 06:47] LABS: Anisocytosis 1+; Differential Comment SCANNED
[2019-09-13] MEDS: Multivitamins,Ther W-Minerals Tablet 1 TABLET PO (07:50)
[2019-09-13] MEDS: Allopurinol 300 MG Tablet PO (07:50)
[2019-09-13] MEDS: Iron Polysaccharide Complex 150 MG CAPSULE PO (07:51)
[2019-09-13] MEDS: Fenofibrate 48 MG Tablet PO (07:51)
[2019-09-13] MEDS: Tuberculin,Purif.prot.deriv. 50 TU/ML Vial 5 ML ID (11:59)
[2019-09-13 13:51] VITALS: BP 91/55; PULSE 69; RESP 20; TEMP 36.8; O2SAT 94
[2019-09-13 16:51] VITALS: BP 113/62; PULSE 68
[2019-09-13] MEDS: Senna/Docusate Sodium 1 Tablet 2 TABLET PO (16:56)
[2019-09-13] MEDS: Sertraline 100 MG Tablet PO (21:32)
[2019-09-13] MEDS: Pantoprazole Sodium 40 MG Tablet PO (21:32)
[2019-09-14 05:59] VITALS: BP 130/76; PULSE 67; RESP 20; TEMP 36.6; O2SAT 95
[2019-09-14] MEDS: Tolterodine Tartrate 2 MG CAP.SA PO (06:01)
[2019-09-14] MEDS: Fluticasone/Salmeterol 232-14 Inhaler 1 PUFF IH ×2 (06:01→17:25)
[2019-09-14] MEDS: Magnesium Oxide 400 MG Tablet PO (06:02)
[2019-09-14] MEDS: Lisinopril 40 MG Tablet PO (06:02)
[2019-09-14] MEDS: Enoxaparin 30 MG/0.3 ML Syringe SC (06:02)
[2019-09-14] MEDS: hydroCHLOROthiazide 12.5mg 12.5 MG PO (06:02)
[2019-09-14] MEDS: Carvedilol 12.5 MG Tablet PO ×2 (06:03→17:24)
[2019-09-14] MEDS: Menthol/Lanolin/Calamine/Znox 113 GM Tube 1 APPLIC TOPICAL ×2 (06:04→21:06)
[2019-09-14] MEDS: Nystatin Powder 15gm Bottle 1 APPLIC TOPICAL ×2 (06:04→21:06)
[2019-09-14] MEDS: Allopurinol 300 MG Tablet PO (07:59)
[2019-09-14] MEDS: Multivitamins,Ther W-Minerals Tablet 1 TABLET PO (07:59)
[2019-09-14] MEDS: Iron Polysaccharide Complex 150 MG CAPSULE PO (07:59)
[2019-09-14] MEDS: Fenofibrate 48 MG Tablet PO (07:59)
[2019-09-14 10:00] VITALS: PULSE 65; RESP 16; O2SAT 98
[2019-09-14 14:26] VITALS: BP 95/53; PULSE 70; RESP 16; TEMP 36.6; O2SAT 96
[2019-09-14] MEDS: Pantoprazole Sodium 40 MG Tablet PO (21:07)
[2019-09-14] MEDS: Sertraline 100 MG Tablet PO (21:08)
[2019-09-15 05:50] VITALS: BP 118/68; PULSE 60; RESP 18; TEMP 36.3; O2SAT 95
[2019-09-15] MEDS: Senna/Docusate Sodium 1 Tablet 2 TABLET PO (05:50)
[2019-09-15] MEDS: Polyethylene Glycol 3350 17 GM PACKET PO (05:50)
[2019-09-15] MEDS: Enoxaparin 30 MG/0.3 ML Syringe SC (05:50)
[2019-09-15] MEDS: Lisinopril 40 MG Tablet PO (05:50)
[2019-09-15] MEDS: hydroCHLOROthiazide 12.5mg 12.5 MG PO (05:50)
[2019-09-15] MEDS: Carvedilol 12.5 MG Tablet PO ×2 (05:50→17:09)
[2019-09-15] MEDS: Nystatin Powder 15gm Bottle 1 APPLIC TOPICAL ×2 (05:51→20:38)
[2019-09-15] MEDS: Menthol/Lanolin/Calamine/Znox 113 GM Tube 1 APPLIC TOPICAL ×2 (05:51→20:38)
[2019-09-15] MEDS: Fluticasone/Salmeterol 232-14 Inhaler 1 PUFF IH ×2 (05:52→17:10)
[2019-09-15] MEDS: Magnesium Oxide 400 MG Tablet PO (05:53)
[2019-09-15] MEDS: Tolterodine Tartrate 2 MG CAP.SA PO (05:54)
[2019-09-15] MEDS: Iron Polysaccharide Complex 150 MG CAPSULE PO (08:03)
[2019-09-15] MEDS: Fenofibrate 48 MG Tablet PO (08:03)
[2019-09-15] MEDS: Allopurinol 300 MG Tablet PO (08:03)
[2019-09-15] MEDS: Multivitamins,Ther W-Minerals Tablet 1 TABLET PO (08:03)
[2019-09-15 14:26] VITALS: BP 110/66; PULSE 73; RESP 16; TEMP 36.4; O2SAT 96
--- NOTE | 2019-09-15 15:00 | NURSING ---
Update provided to family
--- NOTE | 2019-09-15 15:01 | NURSING ---
Dressings removed to incision sites per order. Surgical sites well approximated with jorge luis intact. No S/S of infection.
[2019-09-15] MEDS: Sertraline 100 MG Tablet PO (20:39)
[2019-09-15] MEDS: Pantoprazole Sodium 40 MG Tablet PO (20:39)
[2019-09-16 04:30] VITALS: BP 122/76; PULSE 71; RESP 16; TEMP 36.8; O2SAT 97
[2019-09-16] MEDS: Menthol/Lanolin/Calamine/Znox 113 GM Tube 1 APPLIC TOPICAL ×2 (04:32→19:54)
[2019-09-16] MEDS: Tolterodine Tartrate 2 MG CAP.SA PO (04:32)
[2019-09-16] MEDS: Fluticasone/Salmeterol 232-14 Inhaler 1 PUFF IH ×2 (04:32→16:45)
[2019-09-16] MEDS: Carvedilol 12.5 MG Tablet PO ×2 (04:32→16:45)
[2019-09-16] MEDS: hydroCHLOROthiazide 12.5mg 12.5 MG PO (04:32)
[2019-09-16] MEDS: Magnesium Oxide 400 MG Tablet PO (04:32)
[2019-09-16] MEDS: Enoxaparin 30 MG/0.3 ML Syringe SC (04:33)
[2019-09-16] MEDS: Lisinopril 40 MG Tablet PO (04:33)
[2019-09-16] MEDS: Nystatin Powder 15gm Bottle 1 APPLIC TOPICAL ×2 (04:34→19:53)
--- NOTE | 2019-09-16 05:59 | NURSING ---
8 [place] removed from top incision left hip, 4 jorge luis removed from middle incision to left hip 3 jorge luis removed from distal incision, natalya well, no drainage, incisions edges well approximated, no redness, incisions open to air
[2019-09-16] MEDS: Multivitamins,Ther W-Minerals Tablet 1 TABLET PO (07:53)
[2019-09-16] MEDS: Iron Polysaccharide Complex 150 MG CAPSULE PO (07:53)
[2019-09-16] MEDS: Allopurinol 300 MG Tablet PO (07:53)
[2019-09-16] MEDS: Fenofibrate 48 MG Tablet PO (07:53)
--- NOTE | 2019-09-16 08:33 | MDS.RN ---
Information for the mds was obtained from review of the clinical record, interview of resident, staff, and direct observation of resident's care.
[2019-09-16 12:17] VITALS: PULSE 67; RESP 18; O2SAT 98
[2019-09-16 13:46] VITALS: BP 112/65; PULSE 68; RESP 16; TEMP 36.3; O2SAT 95
[2019-09-16] MEDS: Sertraline 100 MG Tablet PO (19:53)
[2019-09-16] MEDS: Pantoprazole Sodium 40 MG Tablet PO (19:53)
[2019-09-17 05:58] VITALS: BP 128/56; PULSE 61; RESP 16; TEMP 36.3; O2SAT 98
[2019-09-17] MEDS: Nystatin Powder 15gm Bottle 1 APPLIC TOPICAL ×2 (06:00→20:12)
[2019-09-17] MEDS: Fluticasone/Salmeterol 232-14 Inhaler 1 PUFF IH ×2 (06:00→17:12)
[2019-09-17] MEDS: Menthol/Lanolin/Calamine/Znox 113 GM Tube 1 APPLIC TOPICAL ×2 (06:00→20:12)
[2019-09-17] MEDS: hydroCHLOROthiazide 12.5mg 12.5 MG PO (06:01)
[2019-09-17] MEDS: Enoxaparin 30 MG/0.3 ML Syringe SC (06:01)
[2019-09-17] MEDS: Carvedilol 12.5 MG Tablet PO ×2 (06:01→17:12)
[2019-09-17] MEDS: Tolterodine Tartrate 2 MG CAP.SA PO (06:01)
[2019-09-17] MEDS: Lisinopril 40 MG Tablet PO (06:02)
[2019-09-17] MEDS: Magnesium Oxide 400 MG Tablet PO (06:02)
[2019-09-17] MEDS: Allopurinol 300 MG Tablet PO (07:55)
[2019-09-17] MEDS: Multivitamins,Ther W-Minerals Tablet 1 TABLET PO (07:55)
[2019-09-17] MEDS: Fenofibrate 48 MG Tablet PO (07:55)
[2019-09-17] MEDS: Iron Polysaccharide Complex 150 MG CAPSULE PO (07:55)
[2019-09-17 14:51] VITALS: BP 122/64; PULSE 74; RESP 16; TEMP 36.6; O2SAT 96
[2019-09-17] MEDS: Pantoprazole Sodium 40 MG Tablet PO (20:11)
[2019-09-17] MEDS: Sertraline 100 MG Tablet PO (20:11)
[2019-09-18 05:32] VITALS: BP 114/76; PULSE 66; RESP 16; TEMP 36.4; O2SAT 95
[2019-09-18] MEDS: Fluticasone/Salmeterol 232-14 Inhaler 1 PUFF IH ×2 (05:34→17:22)
[2019-09-18] MEDS: Nystatin Powder 15gm Bottle 1 APPLIC TOPICAL ×2 (05:34→20:49)
[2019-09-18] MEDS: Enoxaparin 30 MG/0.3 ML Syringe SC (05:35)
[2019-09-18] MEDS: Tolterodine Tartrate 2 MG CAP.SA PO (05:35)
[2019-09-18] MEDS: Carvedilol 12.5 MG Tablet PO ×2 (05:35→17:22)
[2019-09-18] MEDS: Magnesium Oxide 400 MG Tablet PO (05:36)
[2019-09-18] MEDS: Lisinopril 40 MG Tablet PO (05:36)
[2019-09-18] MEDS: hydroCHLOROthiazide 12.5mg 12.5 MG PO (05:36)
[2019-09-18] MEDS: Menthol/Lanolin/Calamine/Znox 113 GM Tube 1 APPLIC TOPICAL ×2 (05:37→20:49)
[2019-09-18] MEDS: Fenofibrate 48 MG Tablet PO (07:44)
[2019-09-18] MEDS: Multivitamins,Ther W-Minerals Tablet 1 TABLET PO (07:44)
[2019-09-18] MEDS: Iron Polysaccharide Complex 150 MG CAPSULE PO (07:44)
[2019-09-18] MEDS: Allopurinol 300 MG Tablet PO (07:44)
[2019-09-18 09:37] VITALS: PULSE 79; RESP 16; O2SAT 94
[2019-09-18 14:09] VITALS: BP 102/58; PULSE 70; RESP 16; TEMP 36.6; O2SAT 97
--- NOTE | 2019-09-18 15:14 | NURSING ---
Attempted to provide update to family, no answer via telephone.
[2019-09-18] MEDS: Sertraline 100 MG Tablet PO (20:50)
[2019-09-18] MEDS: Pantoprazole Sodium 40 MG Tablet PO (20:50)
--- NOTE | 2019-09-18 22:33 | NURSING ---
PT WALLET PLACED IN MED DRAWER PER PT REQUEST
[2019-09-19] MEDS: Menthol/Lanolin/Calamine/Znox 113 GM Tube 1 APPLIC TOPICAL ×2 (05:07→21:35)
[2019-09-19] MEDS: Magnesium Oxide 400 MG Tablet PO (05:08)
[2019-09-19] MEDS: hydroCHLOROthiazide 12.5mg 12.5 MG PO (05:08)
[2019-09-19] MEDS: Carvedilol 12.5 MG Tablet PO ×2 (05:08→17:57)
[2019-09-19] MEDS: Tolterodine Tartrate 2 MG CAP.SA PO (05:08)
[2019-09-19] MEDS: Enoxaparin 30 MG/0.3 ML Syringe SC (05:08)
[2019-09-19] MEDS: Lisinopril 40 MG Tablet PO (05:09)
[2019-09-19] MEDS: Nystatin Powder 15gm Bottle 1 APPLIC TOPICAL ×2 (05:09→21:35)
[2019-09-19] MEDS: Fluticasone/Salmeterol 232-14 Inhaler 1 PUFF IH ×2 (05:11→17:58)
[2019-09-19 05:12] VITALS: BP 137/64; PULSE 72; RESP 18; TEMP 36.8; O2SAT 92
[2019-09-19] MEDS: Iron Polysaccharide Complex 150 MG CAPSULE PO (07:55)
[2019-09-19] MEDS: Fenofibrate 48 MG Tablet PO (07:56)
[2019-09-19] MEDS: Multivitamins,Ther W-Minerals Tablet 1 TABLET PO (07:56)
[2019-09-19] MEDS: Allopurinol 300 MG Tablet PO (07:56)
[2019-09-19 12:59] VITALS: BP 133/68; PULSE 70; RESP 14; TEMP 36.8; O2SAT 96
[2019-09-19] MEDS: Pantoprazole Sodium 40 MG Tablet PO (21:34)
[2019-09-19] MEDS: Sertraline 100 MG Tablet PO (21:34)
[2019-09-20 05:15] VITALS: BP 122/71; PULSE 75; RESP 18; TEMP 35.8; O2SAT 94
[2019-09-20] MEDS: Enoxaparin 30 MG/0.3 ML Syringe SC (05:17)
[2019-09-20] MEDS: Lisinopril 40 MG Tablet PO (05:17)
[2019-09-20] MEDS: hydroCHLOROthiazide 12.5mg 12.5 MG PO (05:17)
[2019-09-20] MEDS: Magnesium Oxide 400 MG Tablet PO (05:17)
[2019-09-20] MEDS: Fluticasone/Salmeterol 232-14 Inhaler 1 PUFF IH ×2 (05:17→18:47)
[2019-09-20] MEDS: Tolterodine Tartrate 2 MG CAP.SA PO (05:17)
[2019-09-20] MEDS: Carvedilol 12.5 MG Tablet PO ×2 (05:21→18:47)
[2019-09-20] MEDS: Nystatin Powder 15gm Bottle 1 APPLIC TOPICAL ×2 (05:23→21:02)
[2019-09-20] MEDS: Menthol/Lanolin/Calamine/Znox 113 GM Tube 1 APPLIC TOPICAL ×2 (05:24→21:03)
[2019-09-20 06:10] LABS: Absolute Lymphocyte Count 0.68 X10^3/uL (0.83-4.51); Absolute Neutrophil Count 3.1 X10^3/uL (2.0-7.7); Basophil# 0.04 X10^3/uL; Basophil% 0.9 % (0-1); Eosinophil# 0.17 X10^3/uL; Eosinophils% 3.9 % (0-5); Hematocrit 32.9 % (40-54); Hemoglobin 9.9 g/dL (13.0-16.5); Lymphocyte # 0.68 X10^3/ul (4.0); Lymphocyte % 15.8 % (19-41); Mean Corp Hgb Conc 30.1 g/dL (32-36); Mean Corpuscular Hgb 30.3 pg (27.0-32.0); Mean Corpuscular Volume 100.6 fL (80-94); Mean Platelet Vol. 11.8 fl (6.2-12.0); Monocyte# 0.29 X10^3/uL; Monocyte% 6.7 % (0-10); NRBC Flagged by Analyzer 0 % (0-5); Neutrophil # 3.12 X10^3/uL (2.7-7.7); Neutrophil % 72.5 % (47-70); POSITIVE MORPHOLOGY YES; Platelet Count 109 K/mm3 (150-450); RBC Distribution Width CV 20.5 % (11.6-14.6); RBC Distribution Width SD 73.7 fl (35.1-43.9); Red Blood Count 3.27 M/mm3 (4.6-6.2); White Blood Count 4.3 K/mm3 (4.4-11.0)
[2019-09-20 06:16] LABS: Differential Indicated SCAN CRITERIA MET
[2019-09-20 06:26] LABS: Anion Gap 6 (5-15); BUN 40 mg/dL (7-18); BUN/Creat Ratio 25.3 RATIO (10-20); Calcium,Total 10.5 mg/dL (8.5-10.1); Chloride 110 mmol/L (98-107); Creatinine, Serum 1.58 mg/dL (0.70-1.30); EST Glomerular Filtration Rate 45 mL/min (>60); Est Glom Filt Rate - Afr Amer 55 mL/min (>60); Estimated Creatinine Clearance 37.29 ml/min; Glucose 108 mg/dL (74-106); Potassium 4.4 mmol/L (3.5-5.1); Sodium Level 141 mmol/L (136-145)
[2019-09-20 07:00] LABS: Anisocytosis 2+; Differential Comment SCANNED
[2019-09-20] MEDS: Fenofibrate 48 MG Tablet PO (08:47)
[2019-09-20] MEDS: Multivitamins,Ther W-Minerals Tablet 1 TABLET PO (08:47)
[2019-09-20] MEDS: Allopurinol 300 MG Tablet PO (08:47)
[2019-09-20] MEDS: Iron Polysaccharide Complex 150 MG CAPSULE PO (08:47)
[2019-09-20 14:33] VITALS: BP 133/68; PULSE 70; TEMP 36.5
[2019-09-20] MEDS: Sertraline 100 MG Tablet PO (21:02)
[2019-09-20] MEDS: Pantoprazole Sodium 40 MG Tablet PO (21:02)
[2019-09-21] MEDS: Tolterodine Tartrate 2 MG CAP.SA PO (06:39)
[2019-09-21] MEDS: Fluticasone/Salmeterol 232-14 Inhaler 1 PUFF IH ×2 (06:39→17:12)
[2019-09-21] MEDS: Carvedilol 12.5 MG Tablet PO ×2 (06:39→17:12)
[2019-09-21] MEDS: Lisinopril 40 MG Tablet PO (06:39)
[2019-09-21] MEDS: Nystatin Powder 15gm Bottle 1 APPLIC TOPICAL ×2 (06:39→20:59)
[2019-09-21] MEDS: Enoxaparin 30 MG/0.3 ML Syringe SC (06:39)
[2019-09-21] MEDS: Menthol/Lanolin/Calamine/Znox 113 GM Tube 1 APPLIC TOPICAL ×2 (06:40→21:00)
[2019-09-21] MEDS: hydroCHLOROthiazide 12.5mg 12.5 MG PO (06:41)
[2019-09-21] MEDS: Magnesium Oxide 400 MG Tablet PO (06:41)
[2019-09-21 06:49] VITALS: BP 119/66; PULSE 81; RESP 18; TEMP 36.7; O2SAT 98
[2019-09-21] MEDS: Allopurinol 300 MG Tablet PO (08:04)
[2019-09-21] MEDS: Multivitamins,Ther W-Minerals Tablet 1 TABLET PO (08:04)
[2019-09-21] MEDS: Fenofibrate 48 MG Tablet PO (08:04)
[2019-09-21] MEDS: Iron Polysaccharide Complex 150 MG CAPSULE PO (08:04)
[2019-09-21 12:01] VITALS: PULSE 67; RESP 18; O2SAT 95
[2019-09-21 14:28] VITALS: BP 105/58; PULSE 67; RESP 22; TEMP 36.2; O2SAT 96
[2019-09-21] MEDS: Pantoprazole Sodium 40 MG Tablet PO (20:59)
[2019-09-21] MEDS: Sertraline 100 MG Tablet PO (20:59)
[2019-09-22] MEDS: Lisinopril 40 MG Tablet PO (06:05)
[2019-09-22] MEDS: hydroCHLOROthiazide 12.5mg 12.5 MG PO (06:05)
[2019-09-22] MEDS: Tolterodine Tartrate 2 MG CAP.SA PO (06:05)
[2019-09-22] MEDS: Carvedilol 12.5 MG Tablet PO ×2 (06:05→16:59)
[2019-09-22] MEDS: Fluticasone/Salmeterol 232-14 Inhaler 1 PUFF IH ×2 (06:05→16:59)
[2019-09-22] MEDS: Magnesium Oxide 400 MG Tablet PO (06:05)
[2019-09-22] MEDS: Enoxaparin 30 MG/0.3 ML Syringe SC (06:05)
[2019-09-22] MEDS: Menthol/Lanolin/Calamine/Znox 113 GM Tube 1 APPLIC TOPICAL ×2 (06:08→21:24)
[2019-09-22] MEDS: Nystatin Powder 15gm Bottle 1 APPLIC TOPICAL ×2 (06:08→21:24)
[2019-09-22 06:14] VITALS: BP 122/74; PULSE 70; RESP 18; TEMP 36.5; O2SAT 98
[2019-09-22] MEDS: Fenofibrate 48 MG Tablet PO (07:43)
[2019-09-22] MEDS: Iron Polysaccharide Complex 150 MG CAPSULE PO (07:43)
[2019-09-22] MEDS: Allopurinol 300 MG Tablet PO (07:43)
[2019-09-22] MEDS: Multivitamins,Ther W-Minerals Tablet 1 TABLET PO (07:43)
[2019-09-22 07:44] VITALS: PULSE 60; RESP 18; O2SAT 94
[2019-09-22 14:57] VITALS: BP 118/64; PULSE 63; RESP 20; TEMP 36.7; O2SAT 96
[2019-09-22] MEDS: Pantoprazole Sodium 40 MG Tablet PO (21:23)
[2019-09-22] MEDS: Sertraline 100 MG Tablet PO (21:23)
[2019-09-23] MEDS: Fluticasone/Salmeterol 232-14 Inhaler 1 PUFF IH ×2 (06:18→18:16)
[2019-09-23] MEDS: Carvedilol 12.5 MG Tablet PO ×2 (06:19→18:16)
[2019-09-23] MEDS: hydroCHLOROthiazide 12.5mg 12.5 MG PO (06:19)
[2019-09-23] MEDS: Enoxaparin 30 MG/0.3 ML Syringe SC (06:19)
[2019-09-23] MEDS: Magnesium Oxide 400 MG Tablet PO (06:19)
[2019-09-23] MEDS: Tolterodine Tartrate 2 MG CAP.SA PO (06:19)
[2019-09-23] MEDS: Lisinopril 40 MG Tablet PO (06:19)
[2019-09-23] MEDS: Nystatin Powder 15gm Bottle 1 APPLIC TOPICAL ×2 (06:20→20:42)
[2019-09-23] MEDS: Menthol/Lanolin/Calamine/Znox 113 GM Tube 1 APPLIC TOPICAL ×2 (06:22→20:43)
[2019-09-23 06:23] VITALS: BP 122/65; PULSE 79; RESP 18; TEMP 36.6; O2SAT 95
[2019-09-23] MEDS: Multivitamins,Ther W-Minerals Tablet 1 TABLET PO (08:15)
[2019-09-23] MEDS: Allopurinol 300 MG Tablet PO (08:15)
[2019-09-23] MEDS: Iron Polysaccharide Complex 150 MG CAPSULE PO (08:15)
[2019-09-23] MEDS: Fenofibrate 48 MG Tablet PO (08:15)
[2019-09-23 10:00] VITALS: PULSE 67; RESP 14; O2SAT 97
[2019-09-23 13:42] VITALS: BP 112/62; PULSE 67; RESP 18; TEMP 36.6; O2SAT 96
--- NOTE | 2019-09-23 15:52 | NURSING ---
Update provided to family.
[2019-09-23] MEDS: Sertraline 100 MG Tablet PO (20:41)
[2019-09-23] MEDS: Pantoprazole Sodium 40 MG Tablet PO (20:41)
[2019-09-24 05:55] VITALS: BP 126/76; PULSE 62; RESP 16; TEMP 35.7; O2SAT 95
[2019-09-24] MEDS: Nystatin Powder 15gm Bottle 1 APPLIC TOPICAL ×2 (05:58→20:35)
[2019-09-24] MEDS: Carvedilol 12.5 MG Tablet PO ×2 (05:59→16:15)
[2019-09-24] MEDS: Menthol/Lanolin/Calamine/Znox 113 GM Tube 1 APPLIC TOPICAL ×2 (05:59→20:35)
[2019-09-24] MEDS: Tolterodine Tartrate 2 MG CAP.SA PO (05:59)
[2019-09-24] MEDS: Fluticasone/Salmeterol 232-14 Inhaler 1 PUFF IH ×2 (05:59→16:15)
[2019-09-24] MEDS: hydroCHLOROthiazide 12.5mg 12.5 MG PO (05:59)
[2019-09-24] MEDS: Lisinopril 40 MG Tablet PO (05:59)
[2019-09-24] MEDS: Enoxaparin 30 MG/0.3 ML Syringe SC (05:59)
[2019-09-24] MEDS: Magnesium Oxide 400 MG Tablet PO (06:00)
[2019-09-24] MEDS: Iron Polysaccharide Complex 150 MG CAPSULE PO (08:12)
[2019-09-24] MEDS: Allopurinol 300 MG Tablet PO (08:12)
[2019-09-24] MEDS: Fenofibrate 48 MG Tablet PO (08:12)
[2019-09-24] MEDS: Multivitamins,Ther W-Minerals Tablet 1 TABLET PO (08:12)
[2019-09-24 13:56] VITALS: BP 102/56; PULSE 70; RESP 18; TEMP 36.4; O2SAT 95
[2019-09-24] MEDS: Pantoprazole Sodium 40 MG Tablet PO (20:34)
[2019-09-24] MEDS: Sertraline 100 MG Tablet PO (20:34)
[2019-09-25 06:41] VITALS: BP 160/87; PULSE 78; RESP 18; TEMP 36.4; O2SAT 97
[2019-09-25] MEDS: Lisinopril 40 MG Tablet PO (06:43)
[2019-09-25] MEDS: hydroCHLOROthiazide 12.5mg 12.5 MG PO (06:43)
[2019-09-25] MEDS: Magnesium Oxide 400 MG Tablet PO (06:43)
[2019-09-25] MEDS: Fluticasone/Salmeterol 232-14 Inhaler 1 PUFF IH ×2 (06:43→17:29)
[2019-09-25] MEDS: Tolterodine Tartrate 2 MG CAP.SA PO (06:44)
[2019-09-25] MEDS: Menthol/Lanolin/Calamine/Znox 113 GM Tube 1 APPLIC TOPICAL ×2 (06:44→21:04)
[2019-09-25] MEDS: Carvedilol 12.5 MG Tablet PO ×2 (06:44→17:29)
[2019-09-25] MEDS: Enoxaparin 30 MG/0.3 ML Syringe SC (06:45)
[2019-09-25] MEDS: Nystatin Powder 15gm Bottle 1 APPLIC TOPICAL ×2 (06:47→21:04)
[2019-09-25] MEDS: Multivitamins,Ther W-Minerals Tablet 1 TABLET PO (07:40)
[2019-09-25] MEDS: Iron Polysaccharide Complex 150 MG CAPSULE PO (07:40)
[2019-09-25] MEDS: Fenofibrate 48 MG Tablet PO (07:41)
[2019-09-25] MEDS: Allopurinol 300 MG Tablet PO (07:41)
--- NOTE | 2019-09-25 13:35 | SLEEP ---
Patient called up to the in regards to needing a new cushion for his FFM Simplus M mask for his PAP machine. I visited the patient face to face and wanted to check out his mask and the need for a replacement cushion. Patient explains he wanted a new cushion because it's time and [employer] (his DME company) told him he can not receive supplies d/t his admission to the hospital. At the moment, this mask happens to be recalled or on back order and not available at this time. Patient states he has three at home his could bring in for him. He also states he is only admitted in the hospital for one more week and will be able to get supplies from [employer] once he is discharged. Cosmo ALVAREZ
[2019-09-25 14:28] VITALS: BP 106/56; PULSE 74; RESP 18; TEMP 36.8; O2SAT 94
[2019-09-25] MEDS: Pantoprazole Sodium 40 MG Tablet PO (21:03)
[2019-09-25] MEDS: Sertraline 100 MG Tablet PO (21:03)
[2019-09-25 22:43] VITALS: O2SAT 98
[2019-09-26] MEDS: Fluticasone/Salmeterol 232-14 Inhaler 1 PUFF IH ×2 (06:28→17:32)
[2019-09-26] MEDS: Magnesium Oxide 400 MG Tablet PO (06:28)
[2019-09-26] MEDS: Tolterodine Tartrate 2 MG CAP.SA PO (06:28)
[2019-09-26] MEDS: Carvedilol 12.5 MG Tablet PO ×2 (06:28→17:33)
[2019-09-26] MEDS: hydroCHLOROthiazide 12.5mg 12.5 MG PO (06:28)
[2019-09-26] MEDS: Lisinopril 40 MG Tablet PO (06:28)
[2019-09-26] MEDS: Enoxaparin 30 MG/0.3 ML Syringe SC (06:28)
[2019-09-26] MEDS: Menthol/Lanolin/Calamine/Znox 113 GM Tube 1 APPLIC TOPICAL ×2 (06:31→20:21)
[2019-09-26] MEDS: Nystatin Powder 15gm Bottle 1 APPLIC TOPICAL ×2 (06:31→20:20)
[2019-09-26 06:36] VITALS: BP 121/79; PULSE 71; RESP 17; TEMP 37; O2SAT 98
[2019-09-26] MEDS: Allopurinol 300 MG Tablet PO (09:14)
[2019-09-26] MEDS: Fenofibrate 48 MG Tablet PO (09:14)
[2019-09-26] MEDS: Iron Polysaccharide Complex 150 MG CAPSULE PO (09:14)
[2019-09-26] MEDS: Multivitamins,Ther W-Minerals Tablet 1 TABLET PO (09:14)
[2019-09-26 13:57] VITALS: BP 127/68; PULSE 67; RESP 16; TEMP 36.1; O2SAT 97
[2019-09-26] MEDS: Sertraline 100 MG Tablet PO (20:19)
[2019-09-26] MEDS: Pantoprazole Sodium 40 MG Tablet PO (20:19)
[2019-09-27 04:34] VITALS: BP 123/80; PULSE 76; RESP 16; TEMP 36.8; O2SAT 94
[2019-09-27] MEDS: Enoxaparin 30 MG/0.3 ML Syringe SC (04:36)
[2019-09-27] MEDS: hydroCHLOROthiazide 12.5mg 12.5 MG PO (04:37)
[2019-09-27] MEDS: Nystatin Powder 15gm Bottle 1 APPLIC TOPICAL ×2 (04:37→20:28)
[2019-09-27] MEDS: Tolterodine Tartrate 2 MG CAP.SA PO (04:37)
[2019-09-27] MEDS: Carvedilol 12.5 MG Tablet PO ×2 (04:37→16:59)
[2019-09-27] MEDS: Lisinopril 40 MG Tablet PO (04:37)
[2019-09-27] MEDS: Magnesium Oxide 400 MG Tablet PO (04:37)
[2019-09-27] MEDS: Fluticasone/Salmeterol 232-14 Inhaler 1 PUFF IH ×2 (04:38→16:59)
[2019-09-27] MEDS: Menthol/Lanolin/Calamine/Znox 113 GM Tube 1 APPLIC TOPICAL ×2 (04:39→20:28)
[2019-09-27 05:42] LABS: Absolute Lymphocyte Count 0.64 X10^3/uL (0.83-4.51); Absolute Neutrophil Count 2.6 X10^3/uL (2.0-7.7); Basophil# 0.04 X10^3/uL; Basophil% 1.1 % (0-1); Eosinophil# 0.14 X10^3/uL; Eosinophils% 3.7 % (0-5); Hematocrit 33.7 % (40-54); Hemoglobin 10.5 g/dL (13.0-16.5); Lymphocyte # 0.64 X10^3/ul (4.0); Mean Corp Hgb Conc 31.2 g/dL (32-36); Mean Corpuscular Hgb 31.1 pg (27.0-32.0); Mean Corpuscular Volume 99.7 fL (80-94); Mean Platelet Vol. 11.6 fl (6.2-12.0); Monocyte# 0.29 X10^3/uL; Monocyte% 7.7 % (0-10); NRBC Flagged by Analyzer 0 % (0-5); Neutrophil # 2.64 X10^3/uL (2.7-7.7); POSITIVE COUNT YES; POSITIVE MORPHOLOGY YES; Platelet Count 77 K/mm3 (150-450); RBC Distribution Width SD 72.8 fl (35.1-43.9); Red Blood Count 3.38 M/mm3 (4.6-6.2); White Blood Count 3.8 K/mm3 (4.4-11.0)
[2019-09-27 05:56] LABS: Anion Gap 6 (5-15); BUN 30 mg/dL (7-18); BUN/Creat Ratio 21.9 RATIO (10-20); Calcium,Total 10.7 mg/dL (8.5-10.1); Chloride 105 mmol/L (98-107); Creatinine, Serum 1.37 mg/dL (0.70-1.30); EST Glomerular Filtration Rate 53 mL/min (>60); Est Glom Filt Rate - Afr Amer 64 mL/min (>60); Glucose 104 mg/dL (74-106); Potassium 4.6 mmol/L (3.5-5.1); Sodium Level 137 mmol/L (136-145)
[2019-09-27 06:21] LABS: Differential Indicated SCAN CRITERIA MET
[2019-09-27 06:23] LABS: Differential Comment SCANNED; Macrocytosis 2+; Microcytosis 1+
[2019-09-27] MEDS: Allopurinol 300 MG Tablet PO (08:10)
[2019-09-27] MEDS: Multivitamins,Ther W-Minerals Tablet 1 TABLET PO (08:10)
[2019-09-27] MEDS: Fenofibrate 48 MG Tablet PO (08:10)
[2019-09-27] MEDS: Iron Polysaccharide Complex 150 MG CAPSULE PO (08:10)
[2019-09-27 14:11] VITALS: BP 125/65; PULSE 65; RESP 16; TEMP 36.7; O2SAT 98
[2019-09-27] MEDS: Pantoprazole Sodium 40 MG Tablet PO (20:29)
[2019-09-27] MEDS: Sertraline 100 MG Tablet PO (20:29)
[2019-09-28 02:52] VITALS: BP 128/72; PULSE 75; RESP 15; TEMP 36.5; O2SAT 95
[2019-09-28] MEDS: Magnesium Oxide 400 MG Tablet PO (05:46)
[2019-09-28] MEDS: Nystatin Powder 15gm Bottle 1 APPLIC TOPICAL ×2 (05:46→20:19)
[2019-09-28] MEDS: Fluticasone/Salmeterol 232-14 Inhaler 1 PUFF IH ×2 (05:46→17:22)
[2019-09-28] MEDS: Tolterodine Tartrate 2 MG CAP.SA PO (05:46)
[2019-09-28] MEDS: hydroCHLOROthiazide 12.5mg 12.5 MG PO (05:46)
[2019-09-28] MEDS: Menthol/Lanolin/Calamine/Znox 113 GM Tube 1 APPLIC TOPICAL ×2 (05:46→20:20)
[2019-09-28] MEDS: Lisinopril 40 MG Tablet PO (05:47)
[2019-09-28] MEDS: Enoxaparin 30 MG/0.3 ML Syringe SC (05:47)
[2019-09-28] MEDS: Carvedilol 12.5 MG Tablet PO ×2 (05:47→17:22)
[2019-09-28] MEDS: Fenofibrate 48 MG Tablet PO (09:34)
[2019-09-28] MEDS: Multivitamins,Ther W-Minerals Tablet 1 TABLET PO (09:35)
[2019-09-28] MEDS: Allopurinol 300 MG Tablet PO (09:35)
[2019-09-28] MEDS: Iron Polysaccharide Complex 150 MG CAPSULE PO (09:36)
[2019-09-28 14:20] VITALS: BP 94/51; PULSE 56; RESP 16; TEMP 36.6; O2SAT 92
[2019-09-28 15:05] VITALS: PULSE 72; RESP 16; O2SAT 97
--- NOTE | 2019-09-28 15:34 | NURSING ---
Addendum entered by Leticia Aponte 09/28/19 16:30: Respiratory therapist set up a monitor to record SPO2 levels at this time. Trial will continue through Monday. Resident is aware or trial. Original Note: While assessing resident, this nurse checked SPO2 while CPAP was in place. SPO2 remained at 85-86% When resident removed CPAP, SPO2 went up to 97% on room air. Resident also complaining of feeling tired. Respiratory notified and they will be up with tubing and oxygen for CPAP.
[2019-09-28] MEDS: Pantoprazole Sodium 40 MG Tablet PO (20:19)
[2019-09-28] MEDS: Sertraline 100 MG Tablet PO (20:19)
[2019-09-29 06:35] VITALS: BP 105/70; PULSE 73; RESP 16; TEMP 37.1; O2SAT 97
[2019-09-29] MEDS: Enoxaparin 30 MG/0.3 ML Syringe SC (06:37)
[2019-09-29] MEDS: Magnesium Oxide 400 MG Tablet PO (06:37)
[2019-09-29] MEDS: Fluticasone/Salmeterol 232-14 Inhaler 1 PUFF IH ×2 (06:37→17:16)
[2019-09-29] MEDS: Lisinopril 40 MG Tablet PO (06:37)
[2019-09-29] MEDS: Tolterodine Tartrate 2 MG CAP.SA PO (06:37)
[2019-09-29] MEDS: Carvedilol 12.5 MG Tablet PO ×2 (06:37→17:16)
[2019-09-29] MEDS: hydroCHLOROthiazide 12.5mg 12.5 MG PO (06:37)
[2019-09-29] MEDS: Menthol/Lanolin/Calamine/Znox 113 GM Tube 1 APPLIC TOPICAL ×2 (06:39→21:40)
[2019-09-29] MEDS: Nystatin Powder 15gm Bottle 1 APPLIC TOPICAL ×2 (06:39→21:40)
[2019-09-29] MEDS: Iron Polysaccharide Complex 150 MG CAPSULE PO (07:57)
[2019-09-29] MEDS: Fenofibrate 48 MG Tablet PO (07:57)
[2019-09-29] MEDS: Allopurinol 300 MG Tablet PO (07:57)
[2019-09-29] MEDS: Multivitamins,Ther W-Minerals Tablet 1 TABLET PO (07:57)
[2019-09-29 15:54] VITALS: BP 111/61; PULSE 66; RESP 16; TEMP 36.7; O2SAT 98
[2019-09-29] MEDS: Pantoprazole Sodium 40 MG Tablet PO (21:39)
[2019-09-29] MEDS: Sertraline 100 MG Tablet PO (21:39)
[2019-09-30 07:37] VITALS: O2SAT 94
[2019-09-30 07:43] VITALS: BP 149/83; PULSE 77; RESP 16; TEMP 36.9; O2SAT 96
[2019-09-30] MEDS: Tolterodine Tartrate 2 MG CAP.SA PO (07:56)
[2019-09-30] MEDS: Carvedilol 12.5 MG Tablet PO ×2 (07:56→17:32)
[2019-09-30] MEDS: Fluticasone/Salmeterol 232-14 Inhaler 1 PUFF IH ×2 (07:56→17:32)
[2019-09-30] MEDS: Magnesium Oxide 400 MG Tablet PO (07:57)
[2019-09-30] MEDS: hydroCHLOROthiazide 12.5mg 12.5 MG PO (07:57)
[2019-09-30] MEDS: Lisinopril 40 MG Tablet PO (07:57)
[2019-09-30] MEDS: Enoxaparin 30 MG/0.3 ML Syringe SC (07:57)
[2019-09-30] MEDS: Iron Polysaccharide Complex 150 MG CAPSULE PO (07:57)
[2019-09-30] MEDS: Allopurinol 300 MG Tablet PO (07:58)
[2019-09-30] MEDS: Multivitamins,Ther W-Minerals Tablet 1 TABLET PO (07:58)
[2019-09-30] MEDS: Fenofibrate 48 MG Tablet PO (07:58)
[2019-09-30] MEDS: Menthol/Lanolin/Calamine/Znox 113 GM Tube 1 APPLIC TOPICAL ×2 (07:59→20:39)
[2019-09-30] MEDS: Nystatin Powder 15gm Bottle 1 APPLIC TOPICAL ×2 (08:01→20:39)
[2019-09-30 10:00] VITALS: PULSE 69; RESP 18; O2SAT 94
[2019-09-30 14:26] VITALS: BP 99/55; PULSE 67; RESP 18; TEMP 36.2; O2SAT 95
--- NOTE | 2019-09-30 16:50 | PN_ITS ---
Subjective: Resident seen today for regulatory visit. He is sitting in chair in his room. He has no new complaints, concerns, issues. He feels he is on target with therapy, and he is able to ambulate with front wheeled walker. He has nighttime pulsoximetry to assess effectiveness of his CPAP. Vitals/I&O's: Vital Signs Temp Pulse Resp BP Pulse Ox 97.1 F L 67 18 99/55 L 95 09/30/19 14:26 09/30/19 14:26 09/30/19 14:26 09/30/19 14:26 09/30/19 14:26 Oxygen Delivery Method Room Air Weight: 124.88 kg Body Mass Index (BMI) 42.7 Intake and Output for Last 24 Hours 09/28/19 09/29/19 09/30/19 23:59 23:59 23:59 Intake Total 1200 / 1200 840 / 840 600 / 600 Balance 1200 / 1200 840 / 840 600 / 600 Past Medical History Past Medical History (Chronic Problems): Chronic Problems (Last Reviewed 04/08/19 @ 11:[address] Debbie Hines DO) Gout (Chronic) Hypomagnesemia (Chronic) Depression (Chronic) OAB (overactive bladder) (Chronic) GERD (gastroesophageal reflux disease) (Chronic) Body mass index (BMI) 40.0-44.9, adult (Chronic) Chronic kidney disease (Chronic) Coronary artery disease (Chronic) Hypertension (Chronic) Thrombocytopenia (Chronic) Anemia of chronic disease (Chronic) Morbid obesity (Chronic) DEMI (obstructive sleep apnea) (Chronic) Asthma (Chronic) CKD (chronic kidney disease), stage III (Chronic) PCK (polycystic kidney disease) (Chronic) Atherosclerosis of coronary artery of [place] heart without angina pectoris (Chronic) Nonrheumatic aortic (valve) stenosis (Chronic) AVR w/ #25 Shannan-Fisher 01/18/2011 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 Debbie Hines DO) Atherosclerosis of coronary artery of [place] heart without angina pectoris (Chronic) I25.10 Nonrheumatic aortic (valve) stenosis (Chronic) I35.0 AVR w/ #25 Shannan-Fisher 01/18/2011 Essential (primary) hypertension (Chronic) I10 Hyperlipemia (Chronic) E78.5 Right bundle branch block (RBBB) (Chronic) I45.10 Anemia in chronic kidney disease N18.9, D63.1 Asthma J45.909 Chronic kidney disease, stage 3 N18.3 GERD (gastroesophageal reflux disease) K21.9 Gout M10.9 History of splenomegaly Z87.898 Multiple lung nodules R91.[address] 2010 Obesity E66.9 Obstructive sleep apnea G47.33 Osteoarthritis M19.90 Polycystic kidney disease Q61.3 Thrombocytopenia D69.6 Allergies acetaminophen [From Vicodin] Allergy (Verified 09/02/19 20:30) Other hydrocodone [From Vicodin] Allergy (Verified 09/02/19 20:30) Other strawberry Allergy (Verified 09/02/19 20:30) Hives venom-honey bee [bee venom (honey bee)] Allergy (Verified 09/02/19 20:30) Anaphylaxis atorvastatin Adverse Reaction (Verified 09/06/19 14:12) PT UNSURE OF REACTION montelukast Adverse Reaction (Verified 09/06/19 14:13) PT UNSURE OF REACTION Home Medications: Ambulatory Orders Medication Instructions Recorded Allopurinol [Zyloprim] 300 mg PO DAILY 04/12/16 Fenofibrate [Tricor] 48 mg PO DAILY 04/12/16 Lisinopril [Zestril] 40 mg PO DAILY 04/12/16 Magnesium Oxide [Mag-Ox 400] 400 mg PO DAILY 04/12/16 Multivit-Min/FA/Lycopen/Lutein 1 ea PO DAILY 04/12/16 [Centrum Silver Tablet] Fluticasone/Vilanterol [Breo 1 ea IH DAILY 02/19/18 Ellipta 200-25 Mcg INH] carvedilol 12.5 mg tablet 12.5 mg PO BID 02/27/19 Oxybutynin Chloride [Oxybutynin 10 mg PO DAILY 04/08/19 Chloride ER] Omeprazole [Prilosec] 40 mg PO QHS #60 cap 04/09/19 Hydrochlorothiazide 12.5 mg PO DAILY 09/02/19 Enoxaparin [Lovenox] 30 mg SUBCUT DAILY@0600 09/05/19 Ferrous Sulfate 325 mg PO 1200,1700 09/05/19 Oxycodone [Oxyir] 5 mg PO Q4H PRN PRN 7 Days tab 09/05/19 Sertraline HCl [Zoloft] 100 mg PO QHS 09/05/19 Surgical History: Surgical History (Last Reviewed 04/08/19 @ 11:[address] Debbie Hines, DO) History of aortic valve replacement with bioprosthetic valve (Chronic) Onset Date: 01/18/11 Z95.3 AVR w/ #25 Shannan-Fisher 01/18/2011 History of knee replacement Z96.659 History of left heart catheterization Onset Date: 01/05/11 Z98.890 History of umbilical hernia repair Z98.890, Z87.19 Surgical History: herniorrhaphy - Umbilical hernia repair., total knee arthroplasty - Left total knee replacement., - - Aortic valve replacement with bioprosthetic valve. Psychiatric History: Anxiety, Depression Lives: Spouse/ Significant Other Smoking Status: Never smoker Tobacco Use: Non-smoker Alcohol: None Drugs: None - *Family History Maternal Family History: Family History (Last Reviewed 02/27/19 @ 13:[address] Parveen Charlton MD) Father CAD (coronary artery disease) Brother Diabetes Mother Heart disease History Items: Diabetes, Heart Disease Paternal Family History: Family History (Last Reviewed 02/27/19 @ 13:[address] Parveen Charlton MD) Father CAD (coronary artery disease) Brother Diabetes Mother Heart disease History Items: Cancer, High Cholesterol, Heart Disease, Hypertension Capacity - Capacity Assessment Tool Can the patient make a choice & communicate that choice?: Yes Can the patient understand benefits, risks and alternatives?: Yes Can the patient make a logical, rational choice?: Yes Is the choice the patient makes consistent w/ their values?: Yes Is there an impending, emergent risk to the patient?: No Does the patient have an Advance Directive?: No Is there a Surrogate Available?: Yes i.e. HCPOA: Yes i.e. close relative (spouse, child, parent, sibling)?: Yes Review of Systems Constitutional: Denies: Chills, Fever, Weight Change HEENT: Denies: Head Aches, Sinus Congestion, Sinus Drainage Cardiovascular: Denies: Chest Pain, Palpitations Respiratory: Denies: Cough, Shortness of breath at rest, Sputum production Gastrointestinal: Denies: Abdominal Pain, Nausea, Vomiting Genitourinary: Denies: Dysuria Musculoskeletal: Denies: Joint Pain, Joint Tenderness Skin: Denies: Rash, Wounds Neurological: Denies: Numbness, Tingling, Focal weakness Psychiatric: Denies: Anxiety, Depression, Homicidal Ideations, Suicidal Ideations Hematologic/ Lymphatic: Denies: Easy Bruising, Easy Bleeding Patient Problems: Active and Suspected Problems (Last Reviewed 04/08/19 @ 11:[address] Debbie Hines, DO) Debility (Acute) Fall (Acute) - Physical Exam Vitals/I&O's: Vital Signs Temp Pulse Resp BP Pulse Ox 97.1 F L 67 18 99/55 L 95 09/30/19 14:26 09/30/19 14:26 09/30/19 14:26 09/30/19 14:26 09/30/19 14:26 Oxygen Delivery Method Room Air Weight: 124.88 kg Body Mass Index (BMI) 42.7 Intake and Output for Last 24 Hours 09/28/19 09/29/19 09/30/19 23:59 23:59 23:59 Intake Total 1200 / 1200 840 / 840 600 / 600 Balance 1200 / 1200 840 / 840 600 / 600 General: Alert, Oriented x3, Cooperative HEENT: Atraumatic, PERRLA, EOMI, Normocephalic Neck: Supple, No JVD, Negative Carotid Bruits Lungs: Clear to auscultation, Normal air movement Cardiovascular: Regular rate, No murmurs Abdomen: Bowel Sounds Present, Soft, Non Tender Extremities: No edema, Capillary Refill Less than 3 Seconds Skin: No rashes, No breakdown Musculoskeletal: No Tenderness to Palpation of Joints or Extremities Neurological: Cranial nerves II-XII grossly intact Psych/Mental Status: Normal Affect, Appropriate Current Medications Acetaminophen (Tylenol) 1,000 mg PO Q6H PRN PRN PRN Reason: Pain Score 1-3/10 Allopurinol (Zyloprim) 300 mg PO DAILY@0800 [facility]ITA Last Admin: 09/30/19 07:58 Dose: 300 mg Documented by: Bisacodyl (Dulcolax) 10 mg RECTAL DAILY PRN PRN Reason: Constipation Calamine/Phenol (Calmoseptine Ointment) 1 applic TOPICAL 0600,2200 [facility]; Protocol Last Admin: 09/30/19 07:59 Dose: 1 applicatio Documented by: Carvedilol (Coreg) 12.5 mg PO BID [facility] Last Admin: 09/30/19 07:56 Dose: 12.5 mg Documented by: Enoxaparin Sodium (Lovenox) 30 mg SC DAILY@0600 [facility] Last Admin: 09/30/19 07:57 Dose: 30 mg Documented by: Fenofibrate (Tricor) 48 mg PO DAILY@0800 [facility] Last Admin: 09/30/19 07:58 Dose: 48 mg Documented by: Hydrochlorothiazide () 12.5 mg PO DAILY [facility] Last Admin: 09/30/19 07:57 Dose: 12.5 mg Documented by: Lisinopril (Zestril) 40 mg PO DAILY [facility] Last Admin: 09/30/19 07:57 Dose: 40 mg Documented by: Magnesium Oxide (Mag-Ox 400) 400 mg PO DAILY [facility] Last Admin: 09/30/19 07:57 Dose: 400 mg Documented by: Multivitamins/Minerals (Multivitamin With Minerals (Bkc)) 1 tablet PO DAILY@0800 [facility] Last Admin: 09/30/19 07:58 Dose: 1 tablet Documented by: Nystatin (Mycostatin Powder) 1 applic TOPICAL 0600,2200 [facility]; Protocol Last Admin: 09/30/19 08:01 Dose: 1 applicatio Documented by: Oxycodone HCl (Oxyir) 5 mg PO Q4H PRN PRN PRN Reason: Pain Score 4-10/10 Last Admin: 09/13/19 06:15 Dose: 5 mg Documented by: Pantoprazole Sodium (Protonix) 40 mg PO QHS [facility] Last Admin: 09/29/19 21:39 Dose: 40 mg Documented by: Polyethylene Glycol (Miralax) 17 gm PO DAILY PRN PRN Reason: Constipation Polysaccharide Iron Complex (Ferrex 150) 150 mg PO DAILYCM [facility] Last Admin: 09/30/19 07:57 Dose: 150 mg Documented by: Fluticasone/Salmeterol (Fluticasone-Salmeterol 232-14) 1 puff IH Q12 [facility] Last Admin: 09/30/19 07:56 Dose: 1 puff Documented by: Senna/Docusate Sodium (Senokot-S, Lori-Colace) 2 tablet PO BID PRN PRN Reason: Constipation Sertraline HCl (Zoloft) 100 mg PO QHS [facility] Last Admin: 09/29/19 21:39 Dose: 100 mg Documented by: Tolterodine Tartrate (Detrol La) 2 mg PO DAILY [facility] Last Admin: 09/30/19 07:56 Dose: 2 mg Documented by: Assessment/Plan All Active Problems (Last Reviewed 04/08/19 @ 11:[address] Debbie Hines, DO) Debility (Acute) Fall (Acute) UGIB (upper gastrointestinal bleed) (Acute) Closed left hip fracture (Acute) 79 year old male with below past medical history hospitalized for left hip fracture, underwent left hip cephalo-medullary nail 09/03/[address] Casillas, admitted to TCU with debility, here for rehabilitation, strengthening, prior to discharge home with . * Debility - PT/OT. * Pain - Tylenol 1000MG Q6H PRN pain (1-3), Oxycodone 5MG Q4H PRN pain (4-10). * Bowel - Miralax 17GM daily PRN, Senna/colace 2 tablets BID PRN, Dulcolax 10MG NV daily PRN. * Adult immunization - Administer Prevnar 13, Pneumovax 23, Fluzone as appropriate. * DVT prophylaxis - Lovenox 30MG SC daily. * Gout - Allopurinol 300MG daily. * Coronary Artery Disease - Coreg 12.5MG BID. * Hyperlipidemia - Fenofibrate 48MG daily. * Iron deficiency anemia - Ferrex 150MG daily, monitor H&H, may require transfusion. * Asthma - Fluticasone Salmeterol 1 puff BID. * Hypertension - Lisinopril 40MG daily, HCTZ 12.5MG daily. * Hypomagnesemia - Magnesium Oxide 400MG daily. * Skin irritation - Calmoseptine BID. * Nutrition - MVI daily. * Tinea Corporis - Nystatin powder BID. * GERD - Pantoprazole 40MG QHS. * Depression - Sertraline 100MG QHS, stable chronic nursing home use, GDR not recommended. * Overactive bladder - Tolterodine 2MG daily.
[2019-09-30] MEDS: Sertraline 100 MG Tablet PO (20:40)
[2019-09-30] MEDS: Pantoprazole Sodium 40 MG Tablet PO (20:40)
[2019-10-01] MEDS: Nystatin Powder 15gm Bottle 1 APPLIC TOPICAL ×2 (05:32→22:16)
[2019-10-01] MEDS: Menthol/Lanolin/Calamine/Znox 113 GM Tube 1 APPLIC TOPICAL ×2 (05:32→22:16)
[2019-10-01] MEDS: Fluticasone/Salmeterol 232-14 Inhaler 1 PUFF IH ×2 (05:33→16:41)
[2019-10-01] MEDS: Enoxaparin 30 MG/0.3 ML Syringe SC (05:34)
[2019-10-01] MEDS: Lisinopril 40 MG Tablet PO (05:35)
[2019-10-01] MEDS: hydroCHLOROthiazide 12.5mg 12.5 MG PO (05:35)
[2019-10-01] MEDS: Magnesium Oxide 400 MG Tablet PO (05:35)
[2019-10-01] MEDS: Tolterodine Tartrate 2 MG CAP.SA PO (05:35)
[2019-10-01] MEDS: Carvedilol 12.5 MG Tablet PO ×2 (05:35→16:41)
[2019-10-01 05:40] VITALS: BP 112/65; PULSE 74; RESP 17; TEMP 36.3; O2SAT 99
[2019-10-01 07:32] VITALS: O2SAT 96
[2019-10-01] MEDS: Allopurinol 300 MG Tablet PO (08:09)
[2019-10-01] MEDS: Multivitamins,Ther W-Minerals Tablet 1 TABLET PO (08:09)
[2019-10-01] MEDS: Fenofibrate 48 MG Tablet PO (08:09)
[2019-10-01] MEDS: Iron Polysaccharide Complex 150 MG CAPSULE PO (08:09)
--- NOTE | 2019-10-01 12:01 | CASEMGMT ---
Social Work Spoke with pt regarding DC plans. Pt requesting DC 10/04 home with . IDT agreeable. Pt requesting [facility] PT/OT. Referral made. No DME needs. Plan: DC home with 10/04 with [facility] PT/OT. Danielle Salinas, MOLLY LOBATOW
[2019-10-01 14:38] VITALS: BP 137/73; PULSE 68; RESP 16; TEMP 37; O2SAT 98
--- NOTE | 2019-10-01 16:45 | DCINST_ITS ---
- Discharge Diagnoses Current Active Problems: Current Active and Chronic Problems (Last Reviewed 04/08/19 @ 11:[address] Debbie Hines, DO) Debility (Acute) Fall (Acute) Gout (Chronic) Hypomagnesemia (Chronic) Depression (Chronic) OAB (overactive bladder) (Chronic) GERD (gastroesophageal reflux disease) (Chronic) Body mass index (BMI) 40.0-44.9, adult (Chronic) Chronic kidney disease (Chronic) Coronary artery disease (Chronic) Hypertension (Chronic) You will use the following diet at home:: No restrictions, Regular Your food should be the consistency of: Regular Your liquids should be the consistency of: Regular/Thin Discharge Activity: Return to Normal Activity, May Shower, Use Walker Weight Bearing Status: Weight bearing as tolerated Call your doctor if you observe: Fever of 101 or Higher, Inability to urinate, Inability to have a bowel movement, Shortness of breath, Chest pain, Uncontrolled pain Allergies/Adverse Reactions: Allergies acetaminophen [From Vicodin] Allergy (Verified 09/02/19 20:30) Other hydrocodone [From Vicodin] Allergy (Verified 09/02/19 20:30) Other strawberry Allergy (Verified 09/02/19 20:30) Hives venom-honey bee [bee venom (honey bee)] Allergy (Verified 09/02/19 20:30) Anaphylaxis atorvastatin Adverse Reaction (Verified 09/06/19 14:12) PT UNSURE OF REACTION montelukast Adverse Reaction (Verified 09/06/19 14:13) PT UNSURE OF REACTION Medications to take at Discharge Allopurinol [Zyloprim] 300 mg PO DAILY 04/12/16 Fenofibrate [Tricor] 48 mg PO DAILY 04/12/16 Lisinopril [Zestril] 40 mg PO DAILY 04/12/16 Magnesium Oxide [Mag-Ox 400] 400 mg PO DAILY 04/12/16 Multivit-Min/FA/Lycopen/Lutein [Centrum Silver Tablet] 1 ea PO DAILY 04/12/16 Fluticasone/Vilanterol [Breo Ellipta 200-25 Mcg INH] 1 ea IH DAILY 02/19/18 carvedilol 12.5 mg tablet 12.5 mg PO BID 02/27/19 Oxybutynin Chloride [Oxybutynin Chloride ER] 10 mg PO DAILY 04/08/19 Omeprazole [Prilosec] 40 mg PO QHS #60 cap 04/09/19 Hydrochlorothiazide 12.5 mg PO DAILY 09/02/19 Sertraline HCl [Zoloft] 100 mg PO QHS 09/05/19 Acetaminophen [Tylenol] 1,000 mg PO Q6H PRN PRN tablet 10/01/19 Iron Polysaccharide Complex [Ferrex 150] 150 mg PO DAILYCM #30 cap 10/01/19 Menthol/Lanolin/Calamine/Znox [Calmoseptine Ointment] 1 applic TOPICAL 0600,2200 tube 10/01/19 Nystatin Powder [Mycostatin Powder] 1 applic TOPICAL 0600,2200 bottle 10/01/19 The following prescriptions were given: Iron Polysaccharide Complex [Ferrex 150] 150 mg PO DAILYCM #30 cap Transmission Status: Pending to [facility] Primary Care Physician: Ricky Brdaley MD [Primary Care Provider] - Please follow up with your Primary Care Physician in: 1 week. Test Results: Test results from this visit will be discussed in further detail at your follow- up appointment, if applicable. Please Follow Up With: Joss Casillas MD When: [phone] Proposed Discharge Date: 10/05/19
--- NOTE | 2019-10-01 16:47 | DS.PCM_ITS ---
Discharge Date and Diagnosis - Problem List Patient Problems: Active and Suspected Problems (Last Reviewed 04/08/19 @ 11:[address] Debbie Hines DO) Debility (Acute) Fall (Acute) Date of Admission: 09/05/19 Date of Discharge: 10/05/19 - Primary Discharge Diagnosis Acute Problems: Active Problems (Last Reviewed 04/08/19 @ 11:[address] Debbie Hines DO) Debility (Acute) Fall (Acute) - Secondary Discharge Diagnosis Chronic Problems: Chronic Problems (Last Reviewed 04/08/19 @ 11:[address] Debbie Hines DO) Gout (Chronic) Hypomagnesemia (Chronic) Depression (Chronic) OAB (overactive bladder) (Chronic) GERD (gastroesophageal reflux disease) (Chronic) Body mass index (BMI) 40.0-44.9, adult (Chronic) Chronic kidney disease (Chronic) Coronary artery disease (Chronic) Hypertension (Chronic) Thrombocytopenia (Chronic) Anemia of chronic disease (Chronic) Morbid obesity (Chronic) DEMI (obstructive sleep apnea) (Chronic) Asthma (Chronic) CKD (chronic kidney disease), stage III (Chronic) PCK (polycystic kidney disease) (Chronic) Atherosclerosis of coronary artery of [place] heart without angina pectoris (Chronic) Nonrheumatic aortic (valve) stenosis (Chronic) AVR w/ #25 Shannan-Fisher 01/18/2011 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/11) AVR w/ #25 Shannan-Fisher 01/18/2011 Essential (primary) hypertension (Chronic) Hyperlipemia (Chronic) Right bundle branch block (RBBB) (Chronic) Hospital Course and Treatment Imaging Results: 09/06/19 09:21 Diet: Cardiac/Low Cholesterol Food consistency:: Regular Liquid Consistency:: Regular/Thin Is pt able to select menu?: Yes Diet Comments: low sodium Operations: None, - - Left hip cephalo-medullary nailing Procedures: None Summary of Care Provided: The patient is a 79 year old Male with below past medical history hospitalized for left hip fracture, underwent left hip cephalo-medullary nail 09/03/[address] Casillas, admitted to TCU with debility, here for rehabilitation, strengthening, prior to discharge home with . Discharge home with , [facility] PT/OT. Patient Problems: Active and Suspected Problems (Last Reviewed 04/08/19 @ 11:[address] Debbie Hines DO) Debility (Acute) Fall (Acute) - Physical Exam Vitals/I&O's: Vital Signs Temp Pulse Resp BP Pulse Ox 98.6 F 68 16 137/73 H 98 10/01/19 14:38 10/01/19 14:38 10/01/19 14:38 10/01/19 14:38 10/01/19 14:38 Oxygen Delivery Method Room Air Weight: 122.583 kg Body Mass Index (BMI) 42.7 Intake and Output for Last 24 Hours 09/29/19 09/30/19 10/01/19 23:59 23:59 23:59 Intake Total 840 / 840 840 / 840 720 / 720 Output Total 200 / 200 Balance 840 / 840 840 / 840 520 / 520 Current Medications Acetaminophen (Tylenol) 1,000 mg PO Q6H PRN PRN PRN Reason: Pain Score 1-3/10 Allopurinol (Zyloprim) 300 mg PO DAILY@0800 [facility] Last Admin: 10/01/19 08:09 Dose: 300 mg Documented by: Bisacodyl (Dulcolax) 10 mg RECTAL DAILY PRN PRN Reason: Constipation Calamine/Phenol (Calmoseptine Ointment) 1 applic TOPICAL 0600,2199 [facility]; Protocol Last Admin: 10/01/19 05:32 Dose: 1 applicatio Documented by: Carvedilol (Coreg) 12.5 mg PO BID [facility] Last Admin: 10/01/19 16:41 Dose: 12.5 mg Documented by: Enoxaparin Sodium (Lovenox) 30 mg SC DAILY@0600 [facility] Last Admin: 10/01/19 05:34 Dose: 30 mg Documented by: Fenofibrate (Tricor) 48 mg PO DAILY@0800 [facility] Last Admin: 10/01/19 08:09 Dose: 48 mg Documented by: Hydrochlorothiazide () 12.5 mg PO DAILY [facility] Last Admin: 10/01/19 05:35 Dose: 12.5 mg Documented by: Lisinopril (Zestril) 40 mg PO DAILY [facility] Last Admin: 10/01/19 05:35 Dose: 40 mg Documented by: Magnesium Oxide (Mag-Ox 400) 400 mg PO DAILY [facility] Last Admin: 10/01/19 05:35 Dose: 400 mg Documented by: Multivitamins/Minerals (Multivitamin With Minerals (Bkc)) 1 tablet PO DAILY@0800 [facility] Last Admin: 10/01/19 08:09 Dose: 1 tablet Documented by: Nystatin (Mycostatin Powder) 1 applic TOPICAL 0600,2200 [facility]; Protocol Last Admin: 10/01/19 05:32 Dose: 1 applicatio Documented by: Oxycodone HCl (Oxyir) 5 mg PO Q4H PRN PRN PRN Reason: Pain Score 4-10/10 Last Admin: 09/13/19 06:15 Dose: 5 mg Documented by: Pantoprazole Sodium (Protonix) 40 mg PO QHS [facility] Last Admin: 09/30/19 20:40 Dose: 40 mg Documented by: Polyethylene Glycol (Miralax) 17 gm PO DAILY PRN PRN Reason: Constipation Polysaccharide Iron Complex (Ferrex 150) 150 mg PO DAILYCM [facility] Last Admin: 10/01/19 08:09 Dose: 150 mg Documented by: Fluticasone/Salmeterol (Fluticasone-Salmeterol 232-14) 1 puff IH Q12 [facility] Last Admin: 10/01/19 16:41 Dose: 1 puff Documented by: Senna/Docusate Sodium (Senokot-S, Lori-Colace) 2 tablet PO BID PRN PRN Reason: Constipation Sertraline HCl (Zoloft) 100 mg PO QHS [facility] Last Admin: 09/30/19 20:40 Dose: 100 mg Documented by: Tolterodine Tartrate (Detrol La) 2 mg PO DAILY [facility] Last Admin: 10/01/19 05:35 Dose: 2 mg Documented by: Discharge Diet: No Restrictions Discharge Activity: Return to Normal Activity, May Shower, Use Walker Weight Bearing Status: Weight bearing as tolerated Call your doctor if you observe: Fever of 101 or Higher, Inability to urinate, Inability to have a bowel movement, Shortness of breath, Chest pain, Uncontrolled pain Home Medications: Medications to take at Discharge Allopurinol [Zyloprim] 300 mg PO DAILY 04/12/16 Fenofibrate [Tricor] 48 mg PO DAILY 04/12/16 Lisinopril [Zestril] 40 mg PO DAILY 04/12/16 Magnesium Oxide [Mag-Ox 400] 400 mg PO DAILY 04/12/16 Multivit-Min/FA/Lycopen/Lutein [Centrum Silver Tablet] 1 ea PO DAILY 04/12/16 Fluticasone/Vilanterol [Breo Ellipta 200-25 Mcg INH] 1 ea IH DAILY 02/19/18 carvedilol 12.5 mg tablet 12.5 mg PO BID 02/27/19 Oxybutynin Chloride [Oxybutynin Chloride ER] 10 mg PO DAILY 04/08/19 Omeprazole [Prilosec] 40 mg PO QHS #60 cap 04/09/19 Hydrochlorothiazide 12.5 mg PO DAILY 09/02/19 Sertraline HCl [Zoloft] 100 mg PO QHS 09/05/19 Acetaminophen [Tylenol] 1,000 mg PO Q6H PRN PRN tablet 10/01/19 Iron Polysaccharide Complex [Ferrex 150] 150 mg PO DAILYCM #30 cap 10/01/19 Menthol/Lanolin/Calamine/Znox [Calmoseptine Ointment] 1 applic TOPICAL 0600,2200 tube 10/01/19 Nystatin Powder [Mycostatin Powder] 1 applic TOPICAL 0600,2200 bottle 10/01/19 Following Prescrptions Were Given to Patient: Iron Polysaccharide Complex [Ferrex 150] 150 mg PO DAILYCM #30 cap Transmission Status: Pending to [facility] Primary Care Physician: Ricky Bradley MD [Primary Care Provider] - Please follow up with your Primary Care Physician in: 1 week. Please Follow Up With: Joss Casillas MD When: [phone] Disposition: Home with Home Health Minutes spent on discharge:: 35 Patient Condition:: Stable Medical Necessity - Tobacco Use Smoking Status: Never smoker Tobacco Use: Non-smoker Meaningful Use Info Meaningful Use Diagnoses (Choose all that apply): None applicable
[2019-10-01] MEDS: Sertraline 100 MG Tablet PO (22:15)
[2019-10-01] MEDS: Pantoprazole Sodium 40 MG Tablet PO (22:15)
[2019-10-02] MEDS: Fluticasone/Salmeterol 232-14 Inhaler 1 PUFF IH ×2 (06:39→17:14)
[2019-10-02] MEDS: Tolterodine Tartrate 2 MG CAP.SA PO (06:39)
[2019-10-02] MEDS: Lisinopril 40 MG Tablet PO (06:40)
[2019-10-02] MEDS: Enoxaparin 30 MG/0.3 ML Syringe SC (06:40)
[2019-10-02] MEDS: Nystatin Powder 15gm Bottle 1 APPLIC TOPICAL ×2 (06:40→21:34)
[2019-10-02] MEDS: hydroCHLOROthiazide 12.5mg 12.5 MG PO (06:40)
[2019-10-02] MEDS: Menthol/Lanolin/Calamine/Znox 113 GM Tube 1 APPLIC TOPICAL ×2 (06:40→21:34)
[2019-10-02] MEDS: Carvedilol 12.5 MG Tablet PO ×2 (06:40→17:14)
[2019-10-02] MEDS: Magnesium Oxide 400 MG Tablet PO (06:41)
[2019-10-02 06:43] VITALS: BP 129/81; PULSE 80; RESP 18; TEMP 36.8; O2SAT 95
[2019-10-02] MEDS: Fenofibrate 48 MG Tablet PO (07:48)
[2019-10-02] MEDS: Multivitamins,Ther W-Minerals Tablet 1 TABLET PO (07:48)
[2019-10-02] MEDS: Iron Polysaccharide Complex 150 MG CAPSULE PO (07:48)
[2019-10-02] MEDS: Allopurinol 300 MG Tablet PO (07:48)
[2019-10-02 10:00] VITALS: PULSE 66; RESP 16; O2SAT 92
[2019-10-02 12:57] VITALS: BP 126/70; PULSE 66; RESP 16; TEMP 36.8; O2SAT 92
[2019-10-02] MEDS: Sertraline 100 MG Tablet PO (21:32)
[2019-10-02] MEDS: Pantoprazole Sodium 40 MG Tablet PO (21:32)
[2019-10-03] MEDS: Magnesium Oxide 400 MG Tablet PO (06:42)
[2019-10-03] MEDS: Tolterodine Tartrate 2 MG CAP.SA PO (06:42)
[2019-10-03] MEDS: Carvedilol 12.5 MG Tablet PO ×2 (06:42→16:31)
[2019-10-03] MEDS: hydroCHLOROthiazide 12.5mg 12.5 MG PO (06:42)
[2019-10-03] MEDS: Fluticasone/Salmeterol 232-14 Inhaler 1 PUFF IH ×2 (06:42→16:31)
[2019-10-03] MEDS: Lisinopril 40 MG Tablet PO (06:42)
[2019-10-03] MEDS: Nystatin Powder 15gm Bottle 1 APPLIC TOPICAL ×2 (06:43→20:01)
[2019-10-03] MEDS: Enoxaparin 30 MG/0.3 ML Syringe SC (06:43)
[2019-10-03] MEDS: Menthol/Lanolin/Calamine/Znox 113 GM Tube 1 APPLIC TOPICAL ×2 (07:36→20:01)
[2019-10-03] MEDS: Fenofibrate 48 MG Tablet PO (07:37)
[2019-10-03] MEDS: Allopurinol 300 MG Tablet PO (07:37)
[2019-10-03] MEDS: Multivitamins,Ther W-Minerals Tablet 1 TABLET PO (07:37)
[2019-10-03] MEDS: Iron Polysaccharide Complex 150 MG CAPSULE PO (07:37)
[2019-10-03 07:39] VITALS: BP 116/70; PULSE 70; RESP 16; TEMP 36.7
[2019-10-03 12:24] VITALS: BP 128/80; PULSE 71; RESP 16; TEMP 36.8; O2SAT 93
[2019-10-03] MEDS: Pantoprazole Sodium 40 MG Tablet PO (20:00)
[2019-10-03] MEDS: Sertraline 100 MG Tablet PO (20:00)
[2019-10-04 06:02] VITALS: BP 124/71; PULSE 72; RESP 18; TEMP 36.5; O2SAT 96
[2019-10-04] MEDS: Tolterodine Tartrate 2 MG CAP.SA PO (06:04)
[2019-10-04] MEDS: Fluticasone/Salmeterol 232-14 Inhaler 1 PUFF IH ×2 (06:04→17:19)
[2019-10-04] MEDS: Carvedilol 12.5 MG Tablet PO ×2 (06:04→17:19)
[2019-10-04] MEDS: Enoxaparin 30 MG/0.3 ML Syringe SC (06:04)
[2019-10-04] MEDS: Lisinopril 40 MG Tablet PO (06:05)
[2019-10-04] MEDS: Magnesium Oxide 400 MG Tablet PO (06:05)
[2019-10-04] MEDS: hydroCHLOROthiazide 12.5mg 12.5 MG PO (06:05)
[2019-10-04] MEDS: Menthol/Lanolin/Calamine/Znox 113 GM Tube 1 APPLIC TOPICAL ×2 (06:06→21:35)
[2019-10-04] MEDS: Nystatin Powder 15gm Bottle 1 APPLIC TOPICAL ×2 (06:06→21:34)
[2019-10-04 06:14] LABS: Absolute Lymphocyte Count 0.74 X10^3/uL (0.83-4.51); Absolute Neutrophil Count 2.4 X10^3/uL (2.0-7.7); Basophil# 0.02 X10^3/uL; Basophil% 0.5 % (0-1); Eosinophil# 0.15 X10^3/uL; Eosinophils% 4.1 % (0-5); Hematocrit 34.2 % (40-54); Hemoglobin 10.5 g/dL (13.0-16.5); Lymphocyte # 0.74 X10^3/ul (4.0); Lymphocyte % 20.1 % (19-41); Mean Corp Hgb Conc 30.7 g/dL (32-36); Mean Corpuscular Volume 100.9 fL (80-94); Mean Platelet Vol. 11.7 fl (6.2-12.0); Monocyte# 0.35 X10^3/uL; Monocyte% 9.5 % (0-10); NRBC Flagged by Analyzer 0 % (0-5); Neutrophil # 2.41 X10^3/uL (2.7-7.7); Neutrophil % 65.5 % (47-70); POSITIVE COUNT YES; POSITIVE MORPHOLOGY YES; Platelet Count 75 K/mm3 (150-450); RBC Distribution Width CV 19.9 % (11.6-14.6); RBC Distribution Width SD 72.8 fl (35.1-43.9); Red Blood Count 3.39 M/mm3 (4.6-6.2); White Blood Count 3.7 K/mm3 (4.4-11.0)
[2019-10-04 06:23] LABS: Anion Gap 6 (5-15); BUN 32 mg/dL (7-18); BUN/Creat Ratio 22.2 RATIO (10-20); Calcium,Total 10.7 mg/dL (8.5-10.1); Chloride 108 mmol/L (98-107); Creatinine, Serum 1.44 mg/dL (0.70-1.30); EST Glomerular Filtration Rate 50 mL/min (>60); Est Glom Filt Rate - Afr Amer 61 mL/min (>60); Estimated Creatinine Clearance 40.91 ml/min; Glucose 97 mg/dL (74-106); Potassium 4.7 mmol/L (3.5-5.1); Sodium Level 139 mmol/L (136-145)
[2019-10-04 06:42] LABS: Differential Indicated SCAN CRITERIA MET
[2019-10-04 07:23] LABS: Differential Comment SCANNED; Macrocytosis 2+
[2019-10-04] MEDS: Allopurinol 300 MG Tablet PO (09:31)
[2019-10-04] MEDS: Fenofibrate 48 MG Tablet PO (09:31)
[2019-10-04] MEDS: Multivitamins,Ther W-Minerals Tablet 1 TABLET PO (09:31)
[2019-10-04] MEDS: Iron Polysaccharide Complex 150 MG CAPSULE PO (09:31)
[2019-10-04 11:30] VITALS: PULSE 66; RESP 16; O2SAT 96
--- NOTE | 2019-10-04 11:42 | CASEMGMT ---
Social Work BIMS and PHQ-9 completed for MDS assessment. Danielle Salinas, [employer] CERTIFIED PARALEGAL
[2019-10-04 11:46] VITALS: BP 118/70; PULSE 66; RESP 16; TEMP 36.8; O2SAT 96
--- NOTE | 2019-10-04 11:47 | MDS.RN ---
Pain interview for ELLIOT 10/05/19 completed.
[2019-10-04] MEDS: Pantoprazole Sodium 40 MG Tablet PO (21:33)
[2019-10-04] MEDS: Sertraline 100 MG Tablet PO (21:34)
[2019-10-05 06:05] VITALS: BP 130/84; PULSE 76; RESP 16; TEMP 36.5; O2SAT 97
[2019-10-05] MEDS: hydroCHLOROthiazide 12.5mg 12.5 MG PO (06:08)
[2019-10-05] MEDS: Carvedilol 12.5 MG Tablet PO (06:08)
[2019-10-05] MEDS: Tolterodine Tartrate 2 MG CAP.SA PO (06:08)
[2019-10-05] MEDS: Lisinopril 40 MG Tablet PO (06:08)
[2019-10-05] MEDS: Magnesium Oxide 400 MG Tablet PO (06:08)
[2019-10-05] MEDS: Nystatin Powder 15gm Bottle 1 APPLIC TOPICAL (06:09)
[2019-10-05] MEDS: Menthol/Lanolin/Calamine/Znox 113 GM Tube 1 APPLIC TOPICAL (06:10)
[2019-10-05] MEDS: Fluticasone/Salmeterol 232-14 Inhaler 1 PUFF IH (06:35)
[2019-10-05] MEDS: Allopurinol 300 MG Tablet PO (08:46)
[2019-10-05] MEDS: Iron Polysaccharide Complex 150 MG CAPSULE PO (08:46)
[2019-10-05] MEDS: Fenofibrate 48 MG Tablet PO (08:46)
[2019-10-05] MEDS: Multivitamins,Ther W-Minerals Tablet 1 TABLET PO (08:46)
[2019-10-05 10:00] VITALS: PULSE 71; RESP 17; O2SAT 99
[2019-10-05 10:43] VITALS: BP 128/72; PULSE 71; RESP 17; TEMP 37.3; O2SAT 99
== END 2019-10-05 10:25 | disposition home health service (06) | DRG 560 ==
PROVIDERS: Admitting Provider Family Medicine Geriatric Medicine; PCP Internal Medicine; Visit Provider Family Medicine Geriatric Medicine
DX: S72.002D Fracture of unspecified part of neck of left femur, subsequent encounter for closed fracture with routine healing (principal); Q61.3 Polycystic kidney, unspecified; Z68.41 Body mass index [BMI] 40.0-44.9, adult; E78.5 Hyperlipidemia, unspecified; J45.909 Unspecified asthma, uncomplicated; G47.33 Obstructive sleep apnea (adult) (pediatric); K21.9 Gastro-esophageal reflux disease without esophagitis; I25.10 Atherosclerotic heart disease of native coronary artery without angina pectoris; F32.9 Major depressive disorder, single episode, unspecified; N32.81 Overactive bladder; N18.3 Chronic kidney disease, stage 3 (moderate); I12.9 Hypertensive chronic kidney disease with stage 1 through stage 4 chronic kidney disease, or unspecified chronic kidney disease; M10.9 Gout, unspecified; E66.01 Morbid (severe) obesity due to excess calories; D69.6 Thrombocytopenia, unspecified; D63.1 Anemia in chronic kidney disease; M19.90 Unspecified osteoarthritis, unspecified site; F41.9 Anxiety disorder, unspecified; D50.9 Iron deficiency anemia, unspecified; B35.4 Tinea corporis; W19.XXXD Unspecified fall, subsequent encounter; Z95.3 Presence of xenogenic heart valve
CPT/HCPCS: 36415; 36430; 80048; 85014; 85018; 85025; 86850; 86900; 86901; 86920; 86922; 87635; 94762; 97110; 97116; 97162; 97166; 97530; 97533; 97535; 97802; G2023; J7040; P9016; J1940; U0004

== ENCOUNTER 2019-09-07 10:18 | Outpatient (CLI) | payer MEDICARE, OTHER, SELFPAY ==
[2019-09-05 16:26] VITALS: BMI 42.7
[2019-09-07] VITALS (10 sets, daily range): BP systolic 101–151; BP diastolic 56–83; PULSE 66–80; RESP 18; TEMP 36.6–37.2; O2SAT 94–98; BMI 42.7
[2019-09-07] MEDS: Furosemide 20 MG/2 ML VIAL IV (15:04)
== END 2019-09-07 18:33 | disposition skilled nursing facility (03) ==
LOC: MEDOUTP 10:24 → MS3 10:25
PROVIDERS: PCP Internal Medicine; Visit Provider Family Medicine Geriatric Medicine
DX: D50.9 Iron deficiency anemia, unspecified (principal); D63.8 Anemia in other chronic diseases classified elsewhere; N18.3 Chronic kidney disease, stage 3 (moderate)
CPT/HCPCS: 36430; 86850; 86900; 86901; 86920; 86922; J7040; P9016; J1940

== ENCOUNTER → 2019-12-11 15:38 | Outpatient (CLI) | payer MEDICARE, OTHER, SELFPAY ==
[2019-09-07 11:13] VITALS: BMI 42.7
[2019-12-11 16:13] LABS: Protein, Urine (Random) 10.5 mg/dL (<11.9); Protein:Creat Ratio 131 mg/g CRE (0-200)
[2019-12-11 16:38] LABS: Anion Gap 5 (5-15); BUN 24 mg/dL (7-18); BUN/Creat Ratio 18.6 RATIO (10-20); Chloride 110 mmol/L (98-107); Creatinine, Serum 1.29 mg/dL (0.70-1.30); EST Glomerular Filtration Rate 57 mL/min (>60); Est Glom Filt Rate - Afr Amer 69 mL/min (>60); Glucose 111 mg/dL (74-106); Potassium 4.6 mmol/L (3.5-5.1); Sodium Level 141 mmol/L (136-145)
== END ==
PROVIDERS: PCP Internal Medicine; Referring Provider Internal Medicine Nephrology; Visit Provider Internal Medicine Nephrology
DX: N18.3 Chronic kidney disease, stage 3 (moderate) (principal)
CPT/HCPCS: 36415; 80048; 82570; 84156

== ENCOUNTER → 2020-02-05 12:44 | Outpatient (CLI) | payer MEDICARE, OTHER, SELFPAY ==
[2019-09-07 11:13] VITALS: BMI 42.7
--- NOTE | 2020-02-05 12:47 | CDU_ITS ---
Reason For Study: RETINAL ARTERY OCCLUSION Rt. Velocities/BP Lt. Velocities/BP Prox CCA 84/16 cm/sec. Prox CCA 219/22 cm/sec. Mid CCA 75/19 cm/sec. Mid CCA 102/23 cm/sec. Dist CCA 87/23 cm/sec. Dist CCA 82/23 cm/sec. Prox ICA 105/17 cm/sec. Prox ICA 53/15 cm/sec. Mid ICA 55/19 cm/sec. Mid ICA 62/23 cm/sec. Dist ICA 48/17 cm/sec. Dist ICA 67/26 cm/sec. Rt. ICA/CCA = 1.2. Lt. ICA/CCA = .7. Prox ECA 120/15 cm/sec. Prox ECA 96/18 cm/sec. Rt. Vert. 31/10 cm/sec. Lt. Vert. 52/17 cm/sec. Right Extracranial There is intimal thickening but no significant atherosclerotic plaque noted in the right common carotid artery. There is heterogeneous, irregular atherosclerotic plaque noted in the right internal carotid artery. There is heterogeneous, smooth atherosclerotic plaque noted in the right external carotid artery. Antegrade flow is noted in the right vertebral artery. Left Extracranial There is heterogeneous, irregular atherosclerotic plaque noted in the left common carotid artery. There is heterogeneous, irregular atherosclerotic plaque noted in the left internal carotid artery. There is no significant atherosclerotic plaque noted in the left external carotid artery. Antegrade flow is noted in the left vertebral artery. Procedure Carotid Duplex [id number]. Exam performed in department. Interpretation Summary Mild (<50%) stenosis right extracranial internal carotid. Mild (<50%) stenosis left extracranial internal carotid. Flow within the vertebral arteries is antegrade bilaterally. Ordering Physician: Jt Long Referring Physician: Ricky Bradley M.D. Performed By: Rebecca Fisher, SARAHCS, RVT
== END ==
PROVIDERS: PCP Internal Medicine; Referring Provider Ophthalmology; Visit Provider Ophthalmology
DX: H34.232 Retinal artery branch occlusion, left eye (principal); H34.02 Transient retinal artery occlusion, left eye
CPT/HCPCS: 93308; 93880; Q9957; A4216; C8924

== ENCOUNTER → 2020-02-24 06:08 | Outpatient (CLI) | payer MEDICARE, OTHER, SELFPAY ==
[2020-02-11 13:25] VITALS: BMI 40.4
--- NOTE | 2020-02-24 08:58 | STRESSREP ---
Stress Test Report Pharmacologic myocardial perfusion stress test. 79-year-old man with a history of chest pain. Stress protocol: Resting KG demonstrates sinus rhythm with a rate of 62 bpm and a right bundle branch block. Resting blood pressure is 142/88 mmHg. 0.4 mg of regadenoson was infused per usual protocol followed by Intravenous saline flush injection the maximum heart rate was 76 bpm which was 54% of max impacted heart rate the maximum workload was 1 metabolic equivalent. At rest there were no ST or T wave changes noted to suggest ischemia at peak infusion nonspecific ST-T wave changes were noted. No clinical angina was noted. The final blood pressure was 134/82 mmHg. Myocardial perfusion protocol. 14.8 mCi of technetium 99m sestamibi was injected at rest. 0.4 mg of regadenoson was infused per usual protocol. At peak infusion 44.6 mCi of technetium 99m sestamibi was injected stress images were obtained stress and rest images were reconstructed and compared in the short axis vertical long horizontal long axis. Gated images were also obtained Perfusion SPECT analysis: Review of the stress images demonstrate normal uptake of tracer noted in all areas of myocardium the resting images similar demonstrate normal uptake of tracer noted in all areas of the myocardium. No reversibility is noted suggest ischemia no previous infarct is noted. Gated SPECT analysis: The gated ejection fraction is noted to be 89%. Conclusion: Normal pharmacologic myocardial perfusion stress test. Preserved ejection fraction.
== END ==
PROVIDERS: PCP Internal Medicine; Referring Provider Internal Medicine Cardiovascular Disease; Visit Provider Internal Medicine Cardiovascular Disease
DX: I25.10 Atherosclerotic heart disease of native coronary artery without angina pectoris (principal)
CPT/HCPCS: 78452; 93017; A9500; A4216; J2785

== ENCOUNTER → 2020-06-08 12:38 | Outpatient (CLI) | payer MEDICARE, OTHER, SELFPAY ==
[2020-02-11 13:25] VITALS: BMI 40.4
[2020-06-08 13:16] LABS: Hematocrit 37.9 % (40-54); Hemoglobin 11.8 g/dL (13.0-16.5); Mean Corp Hgb Conc 31.1 g/dL (32-36); Mean Corpuscular Volume 102.7 fL (80-94); POSITIVE COUNT YES; Platelet Count 89 K/mm3 (150-450); RBC Distribution Width CV 14.9 % (11.6-14.6); RBC Distribution Width SD 56.5 fl (35.1-43.9); Red Blood Count 3.69 M/mm3 (4.6-6.2); White Blood Count 5.4 K/mm3 (4.4-11.0)
[2020-06-08 13:25] LABS: Protein, Urine (Random) 10.4 mg/dL (<11.9); Protein:Creat Ratio 146 mg/g CRE (0-200)
[2020-06-08 13:32] LABS: PTHIN 101.1 pg/mL (18.4-80.1)
[2020-06-08 13:39] LABS: Anion Gap 3 (5-15); BUN 29 mg/dL (7-18); BUN/Creat Ratio 23.8 RATIO (10-20); Calcium,Total 10.5 mg/dL (8.5-10.1); Chloride 107 mmol/L (98-107); Creatinine, Serum 1.22 mg/dL (0.70-1.30); EST Glomerular Filtration Rate 61 mL/min (>60); Est Glom Filt Rate - Afr Amer 73 mL/min (>60); Glucose 106 mg/dL (74-106); Potassium 4.9 mmol/L (3.5-5.1); Sodium Level 138 mmol/L (136-145)
== END ==
PROVIDERS: PCP Internal Medicine; Referring Provider Internal Medicine Nephrology; Visit Provider Internal Medicine Nephrology
DX: N18.30 Chronic kidney disease, stage 3 unspecified (principal)
CPT/HCPCS: 36415; 80048; 82570; 83970; 84156; 85027

== ENCOUNTER → 2020-12-18 12:18 | Outpatient (CLI) | payer MEDICARE, OTHER, SELFPAY ==
[2020-12-18 14:04] LABS: Anion Gap 2 (5-15); BUN 29 mg/dL (7-18); BUN/Creat Ratio 20.9 RATIO (10-20); Calcium,Total 10.5 mg/dL (8.5-10.1); Chloride 110 mmol/L (98-107); Creatinine, Serum 1.39 mg/dL (0.70-1.30); EST Glomerular Filtration Rate 52 mL/min (>60); Est Glom Filt Rate - Afr Amer 63 mL/min (>60); Glucose 98 mg/dL (74-106); Potassium 4.8 mmol/L (3.5-5.1); Sodium Level 140 mmol/L (136-145)
[2020-12-18 14:34] LABS: Protein, Urine (Random) 6.8 mg/dL (<11.9); Protein:Creat Ratio 64 mg/g CRE (0-200)
== END ==
PROVIDERS: PCP Internal Medicine; Referring Provider Internal Medicine Nephrology; Visit Provider Internal Medicine Nephrology
DX: N18.30 Chronic kidney disease, stage 3 unspecified (principal)
CPT/HCPCS: 36415; 80048; 82570; 84156

== ENCOUNTER → 2021-03-23 15:09 | Outpatient (CLI) | payer MEDICARE, OTHER, SELFPAY ==
[2021-03-23 16:04] LABS: Absolute Lymphocyte Count 0.65 X10^3/uL (0.83-4.51); Absolute Neutrophil Count 4.9 X10^3/uL (2.0-7.7); Basophil# 0.05 X10^3/uL; Basophil% 0.8 % (0-1); Eosinophil# 0.11 X10^3/uL; Eosinophils% 1.8 % (0-5); Hematocrit 41.9 % (40-54); Hemoglobin 13.5 g/dL (13.0-16.5); Lymphocyte # 0.65 X10^3/ul (0.83-4.51); Lymphocyte % 10.6 % (19-41); Mean Corp Hgb Conc 32.2 g/dL (32-36); Mean Corpuscular Hgb 33.7 pg (27.0-32.0); Mean Corpuscular Volume 104.5 fL (80-94); Mean Platelet Vol. 12.4 fl (6.2-12.0); Monocyte# 0.36 X10^3/uL; Monocyte% 5.9 % (0-10); NRBC Flagged by Analyzer 0 % (0-5); Neutrophil # 4.92 X10^3/uL (2.7-7.7); Neutrophil % 80.6 % (47-70); POSITIVE COUNT YES; Platelet Count 86 K/mm3 (150-450); RBC Distribution Width CV 15.7 % (11.6-14.6); RBC Distribution Width SD 60.1 fl (35.1-43.9); Red Blood Count 4.01 M/mm3 (4.6-6.2); White Blood Count 6.1 K/mm3 (4.4-11.0)
[2021-03-23 16:07] LABS: Differential Indicated SCAN CRITERIA MET
[2021-03-23 16:14] LABS: Protein, Urine (Random) < 6.0 mg/dL (<11.9)
[2021-03-23 16:27] LABS: Differential Comment SCANNED
[2021-03-23 16:42] LABS: PTHIN 116.4 pg/mL (18.4-80.1)
[2021-03-23 16:44] LABS: Vitamin D,25 Hydroxy 32.1 ng/mL
[2021-03-23 16:51] LABS: Albumin, Serum 3.6 g/dL (3.2-5.0); BUN 38 mg/dL (7-18); BUN/Creat Ratio 23.5 RATIO (10-20); Calcium,Total 10.4 mg/dL (8.5-10.1); Chloride 107 mmol/L (98-107); Creatinine, Serum 1.62 mg/dL (0.70-1.30); EST Glomerular Filtration Rate 44 mL/min (>60); Est Glom Filt Rate - Afr Amer 53 mL/min (>60); Glucose 114 mg/dL (74-106); Phosphorus 2.4 mg/dL (2.5-4.9); Potassium 4.9 mmol/L (3.5-5.1); Sodium Level 142 mmol/L (136-145)
== END ==
PROVIDERS: PCP Internal Medicine; Visit Provider Internal Medicine Nephrology
DX: N18.30 Chronic kidney disease, stage 3 unspecified (principal); D63.1 Anemia in chronic kidney disease; N25.81 Secondary hyperparathyroidism of renal origin; M10.9 Gout, unspecified
CPT/HCPCS: 36415; 80069; 82306; 82570; 82652; 83735; 83970; 84156; 84550; 85025

== ENCOUNTER 2021-05-25 14:19 | Outpatient (CLI) | payer MEDICARE, OTHER, SELFPAY ==
[2021-05-25 17:32] LABS: AST(SGOT) 30 U/L (15-37); Alanine Aminotransfer ALT/SGPT 31 U/L (16-61); Albumin, Serum 3.3 g/dL (3.2-5.0); Alkaline Phosphatase 82 U/L (45-117); Bilirubin, Direct 0.19 mg/dL (0.00-0.30); Cholesterol 118 mg/dL (200); Globulin 3.4 g/dL (2.2-4.2); High Density Lipoprotein 22 mg/dL; Protein, Total 6.7 g/dL (6.4-8.2); Triglycerides 300 mg/dL; Very Low Density Lipoprotein 60 mg/dL (5-40)
== END 2021-05-25 23:59 | disposition home or self-care (01) ==
LOC: LAB 14:21
PROVIDERS: PCP Internal Medicine; Visit Provider Internal Medicine Cardiovascular Disease
DX: I10 Essential (primary) hypertension (principal); E78.5 Hyperlipidemia, unspecified
CPT/HCPCS: 36415; 80061; 80076

== ENCOUNTER 2021-06-17 13:33 | Outpatient (CLI) | payer MEDICARE, OTHER, SELFPAY ==
[2021-06-17 14:47] LABS: Anion Gap 1 (5-15); BUN 27 mg/dL (7-18); BUN/Creat Ratio 18.8 RATIO (10-20); Calcium,Total 11.2 mg/dL (8.5-10.1); Chloride 110 mmol/L (98-107); Creatinine, Serum 1.44 mg/dL (0.70-1.30); EST Glomerular Filtration Rate 50 mL/min (>60); Est Glom Filt Rate - Afr Amer 60 mL/min (>60); Glucose 107 mg/dL (74-106); Potassium 5.1 mmol/L (3.5-5.1); Sodium Level 140 mmol/L (136-145)
[2021-06-17 14:48] LABS: Protein, Urine (Random) 13.1 mg/dL (<11.9); Protein:Creat Ratio 152 mg/g CRE (0-200)
== END 2021-06-17 23:59 | disposition home or self-care (01) ==
LOC: LAB 13:36
PROVIDERS: PCP Internal Medicine; Referring Provider Nurse Practitioner Adult Health; Visit Provider Nurse Practitioner Adult Health
DX: N18.31 Chronic kidney disease, stage 3a (principal)
CPT/HCPCS: 36415; 80048; 82570; 84156

== ENCOUNTER 2021-11-29 11:57 | Emergency (ER) | payer MEDICARE, OTHER, SELFPAY ==
[2021-11-29 11:58] VITALS: BP 129/68; PULSE 52; RESP 18; TEMP 36.5; O2SAT 97; BMI 35.7
--- NOTE | 2021-11-29 12:08 | EDS_ITS ---
HPI HPI - Fall History of Present Illness Chief Complaint: Lower Extremity Injury Detail of Chief Complaint: Injury left hip/pelvis region status post fall November 26 Informant: patient Occured/Mechanism Occurred: Days Mechanism/Context: Yes same level fall Narrative: Patient states he was walking to his truck to go to the [facility]. Fall from Height (ft): Standing Fall down steps #: Not applicable Usually ambulates: Cane Pain/Injury Location: Left pelvis region Pain Location: other (Left iliac wing) Quality of Pain: Dull and Aching Current Severity: Mild Maximum Severity: Moderate Worsened by: Activity/movement Relieved by: Better with rest Associated Symptoms Associated Symptoms: Negative for Parasthesias, Weakness, Loss of function, Inability to ambulate, Loss of consciousness or Amnesia Narrative Narrative: Patient is an 81-year-old male who was walking towards his truck on Monday. He slipped/fell onto his left side. He presents with pain that he localizes to the posterior iliac region. He does not have true hip pain. He is able to ambulate. He complains of pain with bending, twisting or initiating gait. Tetanus Immunization: 5-10 years Prior similar symptoms: No Recent Illness/Hospitalization: No PFSH PFSH Medical History Anemia Anemia in chronic kidney disease Asthma Body mass index (BMI) 40.0-44.9, adult CKD (chronic kidney disease), stage III Closed left hip fracture Debility Depression Essential (primary) hypertension GERD (gastroesophageal reflux disease) Gout History of splenomegaly Hyperlipemia Hypomagnesemia Morbid obesity Multiple lung nodules Nonobstructive atherosclerosis of coronary artery Nonrheumatic aortic (valve) stenosis OAB (overactive bladder) Obesity Obstructive sleep apnea Osteoarthritis PCK (polycystic kidney disease) Polycystic kidney disease 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) Right bundle branch block (RBBB) Thrombocytopenia UGIB (upper gastrointestinal bleed) Home Medications allopurinol 300 mg tablet 300 mg PO DAILY gout 04/12/16 [History Last Taken 04/07/19] fenofibrate nanocrystallized 48 mg tablet 48 mg PO DAILY cholesterol 04/12/16 [History Last Taken 04/07/19] lisinopril 40 mg tablet 40 mg PO DAILY blood pressure 04/12/16 [History Last Taken 04/07/19] magnesium oxide 400 mg (241.3 mg magnesium) tablet 400 mg PO DAILY supplement 04/12/16 [History Last Taken 04/07/19] fhhelmsd-vse-mxxjx acid 0.4 mg-lycopene 300 mcg-lutein 250 mcg tablet 1 ea PO DAILY vitamin 04/12/16 [History Last Taken 04/07/19] carvedilol 12.5 mg tablet 12.5 mg PO BID heart rate 02/27/19 [History Last Taken 04/07/19] hydrochlorothiazide 12.5 mg capsule 12.5 mg PO DAILY BP/water pill 09/02/19 [History Last Taken Unknown] sertraline 100 mg tablet 100 mg PO QHS depression 09/05/19 [History Last Taken Unknown] aspirin 81 mg tablet,delayed release (Adult Aspirin Regimen) 81 mg PO DAILY 11/10/20 [History Last Taken Unknown] ferrous sulfate 325 mg (65 mg iron) tablet 325 mg PO BID 11/10/20 [History Last Taken Unknown] albuterol sulfate 90 mcg/actuation aerosol inhaler 2 puff inhalation Q6H PRN ASTHMA 05/25/21 [History Last Taken Unknown] fluticasone propionate 50 mcg/actuation nasal spray,suspension 1 spray intranasal DAILY 05/25/21 [History Last Taken Unknown] omeprazole 40 mg capsule,delayed release 40 mg PO DAILY 05/25/21 [History Last Taken Unknown] oxybutynin chloride 15 mg tablet,extended release 24 hr 30 mg PO DAILY 05/25/21 [History Last Taken Unknown] oxycodone 5 mg tablet 5 mg PO Q6H PRN pain 3 days #12 tabs 11/29/21 [Rx Last Taken Unknown] Allergy/AdvReac Type Severity Reaction Status Date / Time acetaminophen [From Vicodin] Allergy Other Verified 11/29/21 12:07 hydrocodone [From Vicodin] Allergy Other Verified 11/29/21 12:07 strawberry Allergy Hives Verified 11/29/21 12:07 venom-honey bee Allergy Anaphylaxis Verified 11/29/21 12:07 [bee venom (honey bee)] adhesive tape AdvReac Rash Verified 11/29/21 12:07 atorvastatin AdvReac PT UNSURE Verified 11/29/21 12:07 OF REACTION montelukast AdvReac PT UNSURE Verified 11/29/21 12:07 OF REACTION Family History Father CAD (coronary artery disease) Brother Diabetes Mother Heart disease Surgical History History of aortic valve replacement with bioprosthetic valve (01/18/11) History of hip surgery (08/2019) History of knee replacement History of left heart catheterization (01/05/11) History of umbilical hernia repair Social History (Updated 11/29/21 @ 12:[address] Boubacar Rivera MD) household members: none Smoking Status: Never smoker substance use type: does not use ROS ROS ED Constitutional Constitutional ED: Denies chills, fever(s), subjective, sweats or weight loss Eyes Eyes: Denies blurry vision, change in vision or diplopia ENT ENT ED: Denies ear pain Cardiovascular Cardiovascular: Denies chest pain or palpitations Respiratory/Chest Respiratory/Chest: Denies cough or dyspnea Gastrointestinal Gastrointestinal: Denies nausea or vomiting Genitourinary Genitourinary ED: Denies hematuria Musculoskeletal Musculoskeletal: Reports other Details: Per HPI ; Denies arthralgias, back pain, myalgias or neck pain Integumentary Denies Abrasions or rash Neurologic Neurologic: Denies headache(s) or paresthesias Hematologic/Lymphatic Hematologic/Lymphatic: Denies easy bleeding or easy bruising EXAM Physical Exam Const Vital Signs: 11/29/21 11:58 Temperature 97.7 F L Temperature Source Temporal Pulse Rate 52 L Respiratory Rate 18 Blood Pressure 129/68 H Blood Pressure Mean 88 Pulse Ox 97 Oxygen Delivery Method Room Air Positive well nourished, well developed and obese Constitutional Narrative: Patient appears uncomfortable as he rotates in bed. General Appearance ED: well developed and NAD Nutritional Appearance: obese HEENT Reports normocephalic HEENT Narrative: Ears normal. Nares patent. No dental trauma. No facial trauma. atraumatic Eyes PERRL and EOMs intact bilaterally General Eye ED: Negative for pale conjunctiva or scleral icterus Neck full ROM and no lymphadenopathy Resp normal respiratory effort, no retractions and clear to auscultation bilaterally Cardio regular rhythm, S1 normal heart sound, S2 normal heart sound and no murmurs Rate: bradycardia GI non-tender, non-distended and no masses Palpation: soft Back/Spine no CVA tenderness Cervical Spine: Negative for cervical spine tenderness Thoracic Spine / Upper Back: Negative for ROM limited or pain with ROM Lumbar Spine / Lower Back: paraspinal muscle tenderness left; Negative for lumbar spinal tenderness Extremity Extremity Narrative: Patient has no pain ovation over the pubic symphysis. There is no pain the patient over the left ischial tuberosity. There is pain the patient over the posterior aspect of the left ilium. There is no abrasion noted. Neuro oriented x3, CN's II-XII intact bilaterally and moves all extremities Sensorium / Orientation: alert Psych mental status grossly normal and thought process normal Skin Lesions: no lesions Rashes: no rashes Trauma: Negative for abrasion or laceration MDM MDM MDM Narrative Medical decision making narrative: X-ray was obtained to difference between contusion and fracture. Since patient has stage III chronic renal disease he was treated with hydrocodone. NSAIDs are contraindicated. Radiography Diagnostic Testing: Clinical Impression(s) from Imaging Studies Pelvis X-Ray 11/29/21 12:10 IMPRESSION: No acute process Electronically Signed: Carl Brown MD at 12:46 EDT Reading Location ID and State: [address] [place] [address] , Service support , Single view x-ray of the pelvis reveals arthritic changes. There is evidence of an open reduction internal fixation of a prior left femoral neck fracture. There is no acute process noted. This was independently interpreted and reviewed by me. Discharge Plan Triage Chief Complaint: Lower Extremity Injury Other Complaint: Fall ED Provider: Boubacar Rivera Dx/Rx/DC Orders Clinical Impression: Injury due to fall, Contusion of lower back and pelvis, initial encounter, Strain of muscle, fascia and tendon of lower back, initial encounter Instructions: ED Back and Neck Pain, General Prescriptions: New oxycodone 5 mg tablet 5 mg PO Q6H PRN (Reason: pain) 3 Days Qty: 12 0RF No Action carvedilol 12.5 mg tablet 12.5 mg PO BID ferrous sulfate 325 mg (65 mg iron) tablet 325 mg PO BID aspirin [Adult Aspirin Regimen] 81 mg tablet,delayed release (DR/EC) 81 mg PO DAILY oxybutynin chloride 15 mg tablet extended release 24hr 30 mg PO DAILY albuterol sulfate 90 mcg/actuation HFA aerosol inhaler 2 puff inhalation Q6H PRN (Reason: ASTHMA) fluticasone propionate 50 mcg/actuation spray,suspension 1 spray intranasal DAILY omeprazole 40 mg capsule,delayed release(DR/EC) 40 mg PO DAILY magnesium oxide 400 MG tablet 400 mg PO DAILY allopurinol 300 MG tablet 300 mg PO DAILY Label Comments: GOUT lisinopril 40 MG tablet 40 mg PO DAILY Label Comments: BP xmupmcze-rvm-VL-lycopen-lutein 1 EACH tablet 1 ea PO DAILY fenofibrate nanocrystallized 48 MG tablet 48 mg PO DAILY Label Comments: CHOLESTEROL hydrochlorothiazide 12.5 MG capsule 12.5 mg PO DAILY sertraline 100 MG tablet 100 mg PO QHS Primary Care Provider: Ricky Bradley Referrals: Ricky Bradley MD [Primary Care Provider] - 3-5 Days if not improving Disposition Disposition: Home, Self Care
--- NOTE | 2021-11-29 12:10 | RAD_ITS ---
STUDY: X-RAY - PELVIS REASON FOR EXAM: Male, 81 years old. Injury/Pain -- Pain over the left side of the pelvis status post TECHNIQUE: One view of the pelvis was obtained. COMPARISON: Pelvic x-ray dated SEPTEMBER 03, 2019 FINDINGS: There is a non-specific bowel gas pattern. Normal visualized soft tissue structures. Normal bilateral iliac wings, sacroiliac joints and visualized sacrum. Normal visualized bilateral superior and inferior pubic rami. Normal pubic symphysis. Normal ischial tuberosities. Stable left hip intramedullary martha/hardware. Moderate heterotopic ossification is present around the lesser trochanteric region. No visualized acute fractures of the pelvis or hips. The hip joint spaces are unremarkable. RAD/Pelvis 1 or 2 Views IMPRESSION: No acute process Electronically Signed: Carl Brown MD at 12:46 EDT ,
[2021-11-29] MEDS: HYDROcodone Bitartrate/Apap 5/325 Tablet PO (12:34)
== END 2021-11-29 14:12 | disposition home or self-care (01) ==
PROVIDERS: Emergency Provider Emergency Medicine; PCP Internal Medicine; Visit Provider Emergency Medicine
DX: S20.229A Contusion of unspecified back wall of thorax, initial encounter (principal); N18.30 Chronic kidney disease, stage 3 unspecified; S39.012A Strain of muscle, fascia and tendon of lower back, initial encounter; I25.10 Atherosclerotic heart disease of native coronary artery without angina pectoris; I12.9 Hypertensive chronic kidney disease with stage 1 through stage 4 chronic kidney disease, or unspecified chronic kidney disease; G47.33 Obstructive sleep apnea (adult) (pediatric); E66.9 Obesity, unspecified; F32.A Depression, unspecified; Z79.82 Long term (current) use of aspirin; Z79.899 Other long term (current) drug therapy; W18.30XA Fall on same level, unspecified, initial encounter
CPT/HCPCS: 72170; 99283

== ENCOUNTER 2021-12-08 15:58 | Emergency (ER) | payer MEDICARE, OTHER, SELFPAY ==
[2021-12-08 15:59] VITALS: BP 113/62; PULSE 58; RESP 14; TEMP 36.2; O2SAT 93; BMI 34.7
--- NOTE | 2021-12-08 16:14 | CT_ITS ---
STUDY: CT BRAIN WITHOUT CONTRAST REASON FOR EXAM: Male, 81 years old. Fall. Hit back of head. Left posterior neck pain. RADIATION DOSAGE (If Supplied By Facility): CTDIvol = ( 44.99 ) mGy, DLP = ( 812.98 ) mGycm TECHNIQUE: Transaxial CT imaging of the brain was performed without administration of intravenous contrast material. Individualized dose optimization techniques were used for this CT. COMPARISON: No relevant priors. FINDINGS: Normal soft tissue structures. Normal calvarium. There is mild cerebral atrophy with widening of the extra-axial spaces and ventricular dilatation. There are areas of decreased attenuation within the white matter tracts of the supratentorial brain, consistent with microvascular disease changes. Normal basal ganglia and thalami. Normal brainstem. Normal cerebellum. There is no intracranial hemorrhage. There are no findings of an acute ischemic infarction. Normal visualized paranasal sinuses. CT/Brain/Head without Contrast IMPRESSION: Chronic involutional changes without evidence of acute intracranial or calvarial abnormality. Electronically Signed: Tam Jones DO at 16:36 EDT ,
--- NOTE | 2021-12-08 16:14 | CT_ITS ---
STUDY: CT CERVICAL SPINE WITHOUT CONTRAST REASON FOR EXAM: Male, 81 years old. Fall. Hit the back of the head. The left posterior neck pain. RADIATION DOSAGE (If Supplied By Facility): CTDIvol = ( 24.37 ) mGy, DLP = ( 491.49 ) mGycm TECHNIQUE: High resolution transaxial imaging was performed without contrast material. Sagittal and coronal images were reconstructed. Individualized dose optimization techniques were used for this CT. COMPARISON: None FINDINGS: Normal craniovertebral junction. There are minimal degenerative changes of the anterior atlantoaxial articulation. Normal odontoid process. Normal cervical lordosis. Normal vertebral bodies and posterior osseous elements. C2-3: Normal endplates. Normal disc height and morphology. Mild facet joint degenerative change. Normal central canal and intervertebral neuroforamina. C3-4: Minimal anterior endplate spondylosis. Loss of disc height with mild bulging annulus. Facet joint degenerative change.. Normal central canal. Mild narrowing of the bilateral intervertebral neuroforamina. C4-5: Normal endplates. Mild loss of disc height with bulging annulus. Facet joint degenerative change. Normal central canal. Minimal narrowing of the left intervertebral neuroforamen. C5-6: Minimal endplate spondylosis. Slight loss of disc height with bulging annulus. Facet joint degenerative change. Normal central canal and intervertebral neuroforamina. C6-7: Endplate spondylosis. Mild bulging annulus. Facet joint degenerative change.. Normal central canal and intervertebral neuroforamina. C7-T1: Normal endplates. Loss of disc height without bulging annulus. Mild facet joint degenerative change. Normal central canal and intervertebral neuroforamina. Mild carotid artery calcifications. CT/Spine Cervical without Contras IMPRESSION: Mild degenerative changes of the cervical spine without acute fracture or subluxation. Note: MRI is more sensitive than CT in detecting cord injury, ligamentous injury and epidural hematoma. If there is continued clinical concern for any of these entities, MRI should be considered. Electronically Signed: Tam Jones DO at 16:45 EDT ,
--- NOTE | 2021-12-08 16:15 | EX.ED.GENINJ ---
HPI History of Present Illness Chief Complaint: Head Injury Informant: patient and family Narrative Narrative: Here with daughter evaluation mechanical fall head injury couple hours prior to arrival. He ambulates with a Rollator. He states his dog was sick and he was trying to find rags in laundry room when neuropathy legs and left upper extremity. He fell backwards. History of he takes baby aspirin. Denies any loss of consciousness. Reports neck pain in the left side. No arm weakness. Daughter here present states he had a fall 2 weeks ago onto his left hip did not tell her to have to return from vacation he came in for an x-ray of the hip that was negative. Had a total hip arthroplasty in the past in that area. Denies chest or abdominal pain. Denies nausea or vomiting. Prior similar symptoms: Yes PFSH PFSH Medical History Anemia Anemia in chronic kidney disease Asthma Body mass index (BMI) 40.0-44.9, adult CKD (chronic kidney disease), stage III Closed left hip fracture Debility Depression Essential (primary) hypertension GERD (gastroesophageal reflux disease) Gout History of splenomegaly Hyperlipemia Hypomagnesemia Morbid obesity Multiple lung nodules Nonobstructive atherosclerosis of coronary artery Nonrheumatic aortic (valve) stenosis OAB (overactive bladder) Obesity Obstructive sleep apnea Osteoarthritis PCK (polycystic kidney disease) Polycystic kidney disease 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) Right bundle branch block (RBBB) Thrombocytopenia UGIB (upper gastrointestinal bleed) Home Medications allopurinol 300 mg tablet 300 mg PO DAILY gout 04/12/16 [History Last Taken 04/07/19] fenofibrate nanocrystallized 48 mg tablet 48 mg PO DAILY cholesterol 04/12/16 [History Last Taken 04/07/19] lisinopril 40 mg tablet 40 mg PO DAILY blood pressure 04/12/16 [History Last Taken 04/07/19] magnesium oxide 400 mg (241.3 mg magnesium) tablet 400 mg PO DAILY supplement 04/12/16 [History Last Taken 04/07/19] ezdifwwo-jqj-idrtu acid 0.4 mg-lycopene 300 mcg-lutein 250 mcg tablet 1 ea PO DAILY vitamin 04/12/16 [History Last Taken 04/07/19] carvedilol 12.5 mg tablet 12.5 mg PO BID heart rate 02/27/19 [History Last Taken 04/07/19] hydrochlorothiazide 12.5 mg capsule 12.5 mg PO DAILY BP/water pill 09/02/19 [History Last Taken Unknown] sertraline 100 mg tablet 100 mg PO QHS depression 09/05/19 [History Last Taken Unknown] aspirin 81 mg tablet,delayed release (Adult Aspirin Regimen) 81 mg PO DAILY 11/10/20 [History Last Taken Unknown] ferrous sulfate 325 mg (65 mg iron) tablet 325 mg PO BID 11/10/20 [History Last Taken Unknown] albuterol sulfate 90 mcg/actuation aerosol inhaler 2 puff inhalation Q6H PRN ASTHMA 05/25/21 [History Last Taken Unknown] fluticasone propionate 50 mcg/actuation nasal spray,suspension 1 spray intranasal DAILY 05/25/21 [History Last Taken Unknown] omeprazole 40 mg capsule,delayed release 40 mg PO DAILY 05/25/21 [History Last Taken Unknown] oxybutynin chloride 15 mg tablet,extended release 24 hr 30 mg PO DAILY 05/25/21 [History Last Taken Unknown] oxycodone 5 mg tablet 5 mg PO Q6H PRN pain 3 days #12 tabs 11/29/21 [Rx Last Taken Unknown] Allergy/AdvReac Type Severity Reaction Status Date / Time hydrocodone [From Vicodin] Allergy Other Verified 12/08/21 15:59 strawberry Allergy Hives Verified 12/08/21 15:59 venom-honey bee Allergy Anaphylaxis Verified 12/08/21 15:59 [bee venom (honey bee)] adhesive tape AdvReac Rash Verified 12/08/21 15:59 atorvastatin AdvReac PT UNSURE Verified 12/08/21 15:59 OF REACTION montelukast AdvReac PT UNSURE Verified 12/08/21 15:59 OF REACTION Family History Father CAD (coronary artery disease) Brother Diabetes Mother Heart disease Surgical History History of aortic valve replacement with bioprosthetic valve (01/18/11) History of hip surgery (08/2019) History of knee replacement History of left heart catheterization (01/05/11) History of umbilical hernia repair Social History household members: none Smoking Status: Never smoker substance use type: does not use ROS ROS ED Constitutional Constitutional ED: Denies chills, fever(s) or sweats Eyes Eyes: Denies change in vision ENT ENT ED: Denies dysphagia or sore throat Cardiovascular Cardiovascular: Denies chest pain, leg edema, palpitations or racing heartbeat Respiratory/Chest Respiratory/Chest: Denies cough, dyspnea or dyspnea on exertion Gastrointestinal Gastrointestinal: Denies abdominal pain, diarrhea, nausea or vomiting Genitourinary Genitourinary ED: Denies dysuria, hematuria or urinary frequency Musculoskeletal Musculoskeletal: Reports neck pain; Denies back pain or extremity pain Integumentary Denies rash or wounds Neurologic Neurologic: Denies headache(s), paresthesias or weakness EXAM Physical Exam Const Vital Signs: 12/08/21 15:59 12/08/21 16:32 Temperature 97.1 F L Temperature Source Temporal Pulse Rate 58 L Respiratory Rate 14 Respiratory Effort Normal Non-Labored Respiratory Depth Normal Respiratory Pattern Normal Blood Pressure 113/62 Blood Pressure Mean 79 Pulse Ox 93 Oxygen Delivery Method Room Air Room Air Positive well nourished and well developed General Appearance ED: well developed and NAD HEENT Reports moist mucous membranes HEENT Narrative: No scalp hematoma or lacerations. normocephalic and atraumatic Eyes PERRL, EOMs intact bilaterally and conjunctivae normal General Eye ED: Yes normal appearance of both eyes Neck no lymphadenopathy and supple Neck Narrative: Tender palpation left lower lateral cervical. No midline tenderness or step-offs. General: tenderness Chest Wall inspection of chest normal and palpation of chest normal Chest: Negative for tenderness Resp normal respiratory effort, normal air movement and clear to auscultation bilaterally Resp Narrative: Symmetric breath sounds bilaterally. Effort and Inspection: symmetric chest movement; Negative for respiratory distress Cardio regular rate, regular rhythm and no murmurs Peripheral Pulses: pulses 2+ throughout GI normal to inspection, nondistended, normoactive bowel sounds and non-tender Palpation: Negative for guarding or rebound tenderness present Back/Spine no CVA tenderness and no thoracic nor lumbar tenderness Back/Spine Narrative: No ecchymosis or step-offs. Extremity normal to inspection Extremity Narrative: Healing ecchymosis noted in left gluteal. Negative logroll bilateral lower extremities. Full range of motion x4 extremities. General Extremety ED: Negative for edema or tenderness General Extremity: Negative for edema Neuro oriented x3, CN's II-XII intact bilaterally and no sensory deficits noted Sensorium / Orientation: awake and alert Skin no rashes or lesions noted and no wounds MDM MDM MDM Narrative Medical decision making narrative: Patient presents mechanical fall head injury with neck pain. Trauma scans head and neck obtained were negative for any acute process. He was given Tylenol in the ED. He is ambulated with a walker with no difficulties. Discussed with patient along with daughter who was in the room, patient continues to have frequent falls, decision will need to be made if he can be safe at home by himself versus assisted living. He is currently being set up with home health care through his PCP. All questions were answered. Radiography Diagnostic Testing: Clinical Impression(s) from Imaging Studies Brain CT 12/08/21 16:14 IMPRESSION: Chronic involutional changes without evidence of acute intracranial or calvarial abnormality. Electronically Signed: Tam Jones DO at 16:36 EDT Reading Location ID and State: [address] [place] [address] Tel [phone], Service support , Cervical Spine CT 12/08/21 16:14 IMPRESSION: Mild degenerative changes of the cervical spine without acute fracture or subluxation. Note: MRI is more sensitive than CT in detecting cord injury, ligamentous injury and epidural hematoma. If there is continued clinical concern for any of these entities, MRI should be considered. Electronically Signed: Tam Jones DO at 16:45 EDT Reading Location ID and State: [address] [place] [address] Tel [phone], Service support , Discharge Plan Triage Chief Complaint: Head Injury ED Provider: Ez Marr Dx/Rx/DC Orders Clinical Impression: CHI (closed head injury), Acute strain of neck muscle, Fall Instructions: ED Head Injury (Adult), ED Neck Sprain or Strain Prescriptions: No Action carvedilol 12.5 mg tablet 12.5 mg PO BID ferrous sulfate 325 mg (65 mg iron) tablet 325 mg PO BID aspirin [Adult Aspirin Regimen] 81 mg tablet,delayed release (DR/EC) 81 mg PO DAILY oxybutynin chloride 15 mg tablet extended release 24hr 30 mg PO DAILY albuterol sulfate 90 mcg/actuation HFA aerosol inhaler 2 puff inhalation Q6H PRN (Reason: ASTHMA) fluticasone propionate 50 mcg/actuation spray,suspension 1 spray intranasal DAILY omeprazole 40 mg capsule,delayed release(DR/EC) 40 mg PO DAILY magnesium oxide 400 MG tablet 400 mg PO DAILY allopurinol 300 MG tablet 300 mg PO DAILY Label Comments: GOUT lisinopril 40 MG tablet 40 mg PO DAILY Label Comments: BP xaekvvyp-vhm-YZ-lycopen-lutein 1 EACH tablet 1 ea PO DAILY fenofibrate nanocrystallized 48 MG tablet 48 mg PO DAILY Label Comments: CHOLESTEROL hydrochlorothiazide 12.5 MG capsule 12.5 mg PO DAILY sertraline 100 MG tablet 100 mg PO QHS oxycodone 5 mg tablet 5 mg PO Q6H PRN (Reason: pain) 3 Days Qty: 12 0RF Primary Care Provider: Ricky Bradley Referrals: Ricky Bradley MD [Primary Care Provider] - 3-5 Days Activity Restrictions/Additional Instructions: Negative CT head and neck. May use Tylenol 1 g every 6 hours as needed. Follow-up with your doctor. Disposition Disposition: Home, Self Care Discharge Date/Time: 12/08/21 17:48
[2021-12-08] MEDS: Acetaminophen 500 MG Tablet 1000 MG PO (17:27)
== END 2021-12-08 17:48 | disposition home or self-care (01) ==
PROVIDERS: Emergency Provider Emergency Medicine; PCP Internal Medicine; Visit Provider Emergency Medicine
DX: S09.90XA Unspecified injury of head, initial encounter (principal); N18.30 Chronic kidney disease, stage 3 unspecified; S16.1XXA Strain of muscle, fascia and tendon at neck level, initial encounter; I25.10 Atherosclerotic heart disease of native coronary artery without angina pectoris; G47.33 Obstructive sleep apnea (adult) (pediatric); W19.XXXA Unspecified fall, initial encounter
CPT/HCPCS: 70450; 72125; 99282

== ENCOUNTER → 2022-01-19 | Outpatient (CLI) | payer MEDICARE, OTHER, SELFPAY ==
[2022-01-19 10:21] LABS: Mean Corpuscular Hgb 33.8 pg (27.0-32.0); Mean Platelet Vol. 11.3 fl (6.2-12.0); POSITIVE COUNT YES; Platelet Count 79 K/mm3 (150-450); RBC Distribution Width CV 15.9 % (11.6-14.6); RBC Distribution Width SD 62.4 fl (35.1-43.9); Red Blood Count 2.66 M/mm3 (4.6-6.2); White Blood Count 4.9 K/mm3 (4.4-11.0)
[2022-01-19 10:53] LABS: PTHIN 93.4 pg/mL (18.4-80.1)
[2022-01-19 10:58] LABS: Vitamin D,25 Hydroxy 39.7 ng/mL
[2022-01-19 11:06] LABS: Albumin, Serum 2.9 g/dL (3.2-5.0); BUN 32 mg/dL (7-18); BUN/Creat Ratio 24.1 RATIO (10-20); Calcium,Total 10.6 mg/dL (8.5-10.1); Chloride 114 mmol/L (98-107); Creatinine, Serum 1.33 mg/dL (0.70-1.30); EST Glomerular Filtration Rate 55 mL/min (>60); Est Glom Filt Rate - Afr Amer 66 mL/min (>60); Glucose 76 mg/dL (74-106); Magnesium 1.9 mg/dL (1.6-2.6); Phosphorus 2.4 mg/dL (2.5-4.9); Potassium 5.1 mmol/L (3.5-5.1); Sodium Level 143 mmol/L (136-145)
[2022-01-20 15:08] LABS: PROEL- A/G Ratio 1.3 (0.7-1.7); PROEL- Albumin 3.1 g/dL (2.9-4.4); PROEL- Alpha-1 Globulin 0.2 g/dL (0.0-0.4); PROEL- Alpha-2 Globulin 0.5 g/dL (0.4-1.0); PROEL- Beta Globulin 0.8 g/dL (0.7-1.3); PROEL- Gamma Globulin 0.8 g/dL (0.4-1.8); PROEL- Globulin, Total 2.3 g/dL (2.2-3.9); PROEL- TOTAL PROTEIN 5.4 g/dL (6.0-8.5)
== END | disposition home or self-care (01) ==
LOC: MTLAB 09:19
PROVIDERS: PCP Internal Medicine; Referring Provider Nurse Practitioner Adult Health; Visit Provider Nurse Practitioner Adult Health
DX: N18.31 Chronic kidney disease, stage 3a (principal); E55.9 Vitamin D deficiency, unspecified; D63.1 Anemia in chronic kidney disease
CPT/HCPCS: 36415; 80069; 82306; 83735; 83970; 84165; 85027

== ENCOUNTER → 2022-01-20 | Outpatient (CLI) | payer MEDICARE, OTHER, SELFPAY ==
[2022-01-20 14:00] LABS: Protein, Urine (Random) 28.1 mg/dL (<11.9); Protein:Creat Ratio 590 mg/g CRE (0-200)
[2022-01-24 14:08] LABS: PROELU- Alpha-1-Globulin,Ur 2.7 % (.); PROELU- Alpha-2-Globulin,Ur 11.8 % (.); PROELU- Beta Globulin, Ur 20.7 % (.); PROELU- Gamma Globulin, Ur 14.8 % (.); Total Protein, Ur 39.5 mg/dL (Not Estab.)
== END | disposition home or self-care (01) ==
LOC: MTLAB 10:28
PROVIDERS: PCP Internal Medicine; Referring Provider Nurse Practitioner Adult Health; Visit Provider Nurse Practitioner Adult Health
DX: N18.31 Chronic kidney disease, stage 3a (principal); E55.9 Vitamin D deficiency, unspecified; D63.1 Anemia in chronic kidney disease
CPT/HCPCS: 82570; 84156; 84166

== ENCOUNTER → 2022-05-05 | Outpatient (CLI) | payer MEDICARE, OTHER, SELFPAY ==
[2022-05-05] VITALS (9 sets, daily range): BP systolic 121–152; BP diastolic 73–87; PULSE 71–89; RESP 11–19; TEMP 36.5; O2SAT 88–100; BMI 37.4
--- NOTE | 2022-05-05 | IMM_PTH ---
PATIENT: FRANCISCO MACK LOC: CT U#:[id number] AGE/SX: 82/M ROOM: RE05/05/[address]: Dr. Yuniel Dahl DO : 1940 BED: DIS: 05/05/2022 SPEC #: [id number] RECD: 05/06/22 13:29 STATUS: BK REQ #: [id number] IAN: 05/05/22 00:[address]: Yuniel Dahl DEPT: IMMUNOHISTOCHEMISTRY RECD BY: Whitney Chan ENTERED: 05/06/22 13:31 SP TYPE: IMMUNO OTHR DR: Dr. Ricky Bradley MD Tissues: A - Bone marrow of iliac crest B - Bone marrow of iliac crest Procedures: BCL-2 (add) BCL-6 (add) CD10 (add) CD138 (add) CD20 (add) CD3 (add) CD45 (add) CD5 (add) CD79A (add) KAPPA (add) LAMBDA (add) Pankeratin (initial) PHYSICIAN & [address] [address] SPECIMEN INFORMATION: Tissue Source: A ? Bone marrow core, B ? Bone marrow clot Clinical Info: IgG monoclonal gammopathy, ? multiple myeloma Specimen Number: [id number] A & B CPT code: 83745 x2, 73473 x22 METHODOLOGY: Deparaffinized sections of prefer/formalin-fixed tissue or PAP/DQ stained slides are incubated with monoclonal/polyclonal antibodies/oligonucleotide probes. Localization is made via biotin free immunoperoxidase method. Appropriate controls are performed and reacted as expected. Results on target cell population are indicated in the following table: RESULTS: ANTIBODY / CLONE RESULT Block A AE1-3 (AE1/AE3/PCK26) negative CD3 (PS1) negative CD5 (SP10) negative CD10 (56C6) negative CD20 (L26) negative CD45 (RP2/18) negative CD79a (11E3) negative CD138 (B-A38) negative [place] (polyclonal) negative Lambda (polyclonal) negative BCL-2 (bcl-2/100/D5) negative BCL-6 (QS873S/A8) negative Block B AE1-3 (AE1/AE3/PCK26) negative CD3 (PS1) negative CD5 (SP10) negative CD10 (56C6) negative CD20 (L26) negative CD45 (RP2/18) negative CD79a (11E3) negative CD138 (B-A38) negative [place] (polyclonal) negative Lambda (polyclonal) negative BCL-2 (bcl-2/100/D5) negative BCL-6 (JQ550E/A8) negative These tests were developed and their performance characteristics determined by [facility]. They may not have been cleared or approved by the U.S. Food and Drug Administration. The FDA has determined that such clearance or approval is not necessary. The above immunohistochemical/dualISH markers are ordered and reviewed by the Pathologist. INTERPRETATION: A. Bone marrow core: No evidence of lymphoproliferative disorder or plasma cell neoplasm. B. Bone marrow clot: No evidence of lymphoproliferative disorder or plasma cell neoplasm. AM:tal 05/09/2022
--- NOTE | 2022-05-05 08:47 | CT_ITS ---
PROCEDURE: CT GUIDED BONE marrow biopsy and bone marrow aspiration of the right iliac bone DATE: 05/05/2022. INDICATION: Male, 82 years old. IgG monoclonal gammopathy. PHYSICIAN: Gary Barreto M.D. RADIATION DOSAGE (If Supplied By Facility): CTDIvol = ( 25 ) mGy, DLP = ( 579.21 ) mGycm PROCEDURE: The risks, benefits, and alternatives to the procedure were explained to the patient. The specific risk of hemorrhage requiring further treatment or intervention was detailed and accepted. Follow-up instructions were discussed with the patient as well. Written informed consent was obtained. The patient was brought into the CT suite and placed in the prone position. . An appropriate entry site was identified. The overlying skin was prepped and draped in the usual sterile fashion. 1% lidocaine was administered subcutaneously for local anesthesia. Conscious sedation was performed. The patient received 2 mg of VERSED and 50 mcg of FENTANYL intravenously. Conscious sedation was started at 10:12 AM and terminated at 10:29 AM. The patient was independently monitored by the department nurse. Under CT guidance, a bone marrow biopsy and bone marrow aspirate were performed utilizing 11-gauge core biopsy needle system. The specimens were then placed in the appropriate fluid and transported to the laboratory for analysis. Hemostasis was obtained. The patient tolerated the procedure well without immediate complications. CT/Biopsy/Inj or Needle Placement IMPRESSION: Successful CT guided bone marrow biopsy and bone marrow aspiration of the posterior right iliac bone, as described above. Conscious sedation protocol was followed. Electronically Signed: Gary Barreto MD at 11:07 EST ,
[2022-05-05 08:53] LABS: Absolute Lymphocyte Count 0.34 X10^3/uL (0.83-4.51); Absolute Neutrophil Count 2.9 X10^3/uL (2.0-7.7); Basophil# 0.03 X10^3/uL; Basophil% 0.8 % (0-1); Eosinophils% 2.8 % (0-5); Hematocrit 33.5 % (40-54); Hemoglobin 10.3 g/dL (13.0-16.5); Lymphocyte # 0.34 X10^3/ul (0.83-4.51); Lymphocyte % 9.4 % (19-41); Mean Corp Hgb Conc 30.7 g/dL (32-36); Mean Corpuscular Hgb 30.3 pg (27.0-32.0); Mean Corpuscular Volume 98.5 fL (80-94); Mean Platelet Vol. 10.2 fl (6.2-12.0); Monocyte# 0.29 X10^3/uL; NRBC Flagged by Analyzer 0 % (0-5); Neutrophil # 2.86 X10^3/uL (2.7-7.7); Neutrophil % 78.7 % (47-70); POSITIVE COUNT YES; POSITIVE DIFFERENTIAL YES; Platelet Count 81 K/mm3 (150-450); RBC Distribution Width CV 17.3 % (11.6-14.6); RBC Distribution Width SD 62.2 fl (35.1-43.9); White Blood Count 3.6 K/mm3 (4.4-11.0)
[2022-05-05 09:01] LABS: Differential Indicated SCAN CRITERIA MET
[2022-05-05 09:49] LABS: Differential Comment SCANNED
[2022-05-05] MEDS: Midazolam 2 MG/2 ML Syringe IV (10:12)
[2022-05-05] MEDS: fentaNYL 100 MCG/2 ML Ampul IV (10:12)
[2022-05-05] MEDS: Lidocaine 2% (20 ml mdv) 20 ML Vial INFILT (10:20)
--- NOTE | 2022-05-05 10:30 | BMB_PTH ---
PATIENT: FRANCISCO MACK LOC: CT U#:[id number] AGE/SX: 82/M ROOM: RE05/05/[address]: Dr. Yuniel Dahl DO : 1940 BED: DIS: 05/05/2022 SPEC #: [id number] RECD: 05/05/22 11:15 STATUS: BK REYamil #: [id number] IAN: 05/05/22 10:[address]: Yuniel Dahl DEPT: BONE MARROW RECD BY: Elsy Hernandez ENTERED: 05/05/22 11:40 SP TYPE: BMB OT DR: Dr. Ricky Bradley MD Tissues: A - Bone marrow, NOS B - Bone marrow, NOS C - Bone marrow, NOS Procedures: Decalcification bone/plaque Bone Marrow Aspiration Bone Marrow Core Biopsy Iron Stain Bone Marrow HEADER OPERATION: CT-guided bone marrow biopsy and aspiration PRE-OP DIAGNOSIS: IgG monoclonal gammopathy, ? multiple myeloma TISSUE SUBMITTED: A - Core, B - Clot, C - Smears, and send outs (flow, cytogenetics and FISH) BONE MARROW DIAGNOSIS Bone marrow biopsy, clot and aspiration: Hypercellular bone marrow with trilineage hematopoiesis. No evidence of lymphoproliferative disorder or plasma cell dyscrasia. AM:tal 05/09/2022 COMMENT Flow cytometry analysis reveals no evidence of a lymphoproliferative disorder. There is no monoclonal plasma cell neoplasm. The complete report is viewable in EMR. FISH and cytogenetic studies are pending and will be reported as an addendum. Immunohistochemistry ([id number]) supports the above diagnosis. Case has been reviewed in consultation with Dr. Ocampo who concurs with the above diagnosis. IDC:[id number] BONE MARROW STUDY Slides are reviewed. CBC DATE: 05/05/22 WBC 3.6; RBC 3.4; HGB 1.3; HCT 33.5; MCV 98.5; RDW 16.1; PLTS 81,000 SEGS 78.7%; LYMPHS 9.4%; MONOS 8.0%; EOS 2.8%; BASOS 0.8% PERIPHERAL SMEAR: Submitted. RBC: Macrocytic anemia. WBC: Lymphopenia PLTS: Mild to moderate Thrombocytopenia. BONE MARROW ASPIRATE DIFFERENTIAL: 200 cell count. Blasts % (normal 0-2): 2 Promyelocytes % (normal 1-5): 3 Myelocytes and metamyelocytes % (normal 17-41): 23 Bands and Segs % (normal 15-32): 28 Eos % (normal 1-6): 2 Monocytes % (normal 0-4): 0 Erythroid Precursors % (normal 17-35): 27 Lymphocytes % (normal 7-13): 13 Plasma Cells % (normal 0-2): 2 ASPIRATE FINDINGS: Site: Not specified Spicular Cellular M/E ratio: 2.14 (Normal 1.5 - 4.0) Megakaryocytes: Occasional micromegakaryocyte noted. Erythropoiesis: Normoblastic Granulopoiesis: Progressive maturation CORE BIOPSY FINDINGS: Site: Not specified Cellularity %: 40% M/E ratio: Within normal limits Megakaryocytes: Adequate Bony trabeculae: Within normal limits Granulomas: 0 Lymphoid aggregate(s): 0 Atypical infiltrate(s): 0 ASPIRATE CLOT FINDINGS: Site: Not specified Cellularity %: 35-40% M/E ratio: Within normal limits Megakaryocytes: Adequate Granuloma(s): 0 Lymphoid aggregate(s): 0 Atypical infiltrate(s): 0 SPECIAL STAINS (with matched controls): Iron: Rare stainable iron Reticulin: Within normal limits. PAS: Highlights myeloid elements and megakaryocytes. BONE MARROW GROSS A - Received is a container labeled with the patient's name and designated bone marrow. The specimen consists of an elongated piece of leo bone measuring 1 cm in length and 0.1 cm in diameter. The specimen is totally submitted in one cassette after decalcification. B - Received labeled with the patient's name and designated bone marrow is a specimen that consists of approximately 8 ml of bloody fluid that on filtration yields multiple minute fragments of blood clots measuring in aggregate 3 x 2.5 x 0.3 cm. The specimen is totally submitted in one cassette. C - Also received are 16 unstained and 1 peripheral stained slides. The unstained slides are submitted for appropriate staining. Also received is 1 green top tube which is sent to our reference lab for flow, cytogenetics and FISH. / JACKELIN:tal 05/05/2022 TC: CPT: 55010, 25819, 47942 x2, 09729 x3, 14740 ADDENDUM ADDENDUM ADDENDUM ADDENDUM ADDENDUM ADDENDUM ADDENDUM ADDENDUM ADDENDUM ADDENDUM ADDENDUM 05/17/2022 08:45 ADDENDUM 05/17/2022 08:45 ADDENDUM 05/17/2022 08:45 ADDENDUM 05/17/2022 08:45 ADDENDUM 05/17/2022 08:45 CYTOGENETICS REPORT FROM [facility] INTERPRETATION: A normal male karyotype was observed in twenty metaphases analyzed. Karyotype: 46,XY[20] FLUORESCENCE IN-SITU HYBRIDIZATION (FISH) FROM [facility] INTERPRETATION: No evidence of BCR/ABL rearrangement. Please see complete report in e-chart or EMR
[2022-05-05 14:27] LABS: Pathologist Review Reviewed
== END | disposition home or self-care (01) ==
PROVIDERS: PCP Internal Medicine; Referring Provider Internal Medicine Hematology & Oncology; Visit Provider Internal Medicine Hematology & Oncology
DX: D47.2 Monoclonal gammopathy (principal)
CPT/HCPCS: 38222; 36415; 77012; 85025; 88305; 88311; 88313; 88341; 88342; 99156; J7050; A4216

== ENCOUNTER 2022-07-15 14:15 | Outpatient (RCR) | payer MEDICARE, OTHER, SELFPAY ==
[2022-07-05 08:21] VITALS: BP 126/66; PULSE 71; RESP 22; TEMP 36.2
--- NOTE | 2022-07-05 12:54 | PCM.WC.HP ---
History of Present Illness Date of Service: 07/05/22 Chief Complaint: Bilateral lower extremity swelling and edema with multiple superficial excoriations History of Wound: This is an 82-year-old male who presents with bilateral lower extremity swelling and edema. The patient states that his swelling is worse each day in the evening. The swelling in his lower extremities is chronic, and has been ongoing for several years. Within the last 3 weeks, the patient has noted erythema and the development of blisters and superficial excoriations, for which the patient has used topical antibiotic ointment. He has been placed on Keflex by his primary care physician for suspected cellulitis. He was recently taken off of Lasix, and a prescription for Demadex has recently been provided. The patient denies a history of lower extremity thrombophlebitis. He lives alone. He is not active. He claims to sleep on a flat mattress at night. However, he spends long hours each day in the sitting position. Activity is limited. The patient is obese. [facility] Medical History Adenomatous colon polyp Anemia Anemia in chronic kidney disease Anemia of chronic disease Aortic valve disorder Asthma Asthma Asthma exacerbation Body mass index (BMI) 40.0-44.9, adult Cirrhosis CKD (chronic kidney disease), stage III Closed left hip fracture Coronary artery disease Debility Depression Essential (primary) hypertension GERD (gastroesophageal reflux disease) GERD (gastroesophageal reflux disease) Gout Gout History of cerebrovascular accident History of splenomegaly Hyperlipemia Hypomagnesemia Intestinal polyp Left leg swelling Leg edema, left Leg edema, right Morbid obesity Multiple lung nodules Nonobstructive atherosclerosis of coronary artery Nonrheumatic aortic (valve) stenosis OAB (overactive bladder) Obesity Obesity (BMI 30-39.9) Obstructive sleep apnea Obstructive sleep apnea on CPAP Osteoarthritis PCK (polycystic kidney disease) Peripheral neuropathy Polycystic kidney disease 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) Right bundle branch block (RBBB) Right leg swelling Splenomegaly Splenomegaly Thrombocytopenia UGIB (upper gastrointestinal bleed) Urge incontinence Home Medications allopurinol 300 mg tablet 300 mg PO DAILY gout 04/12/16 [History Last Taken 04/07/19] fenofibrate nanocrystallized 48 mg tablet 48 mg PO DAILY cholesterol 04/12/16 [History Last Taken 04/07/19] magnesium oxide 400 mg (241.3 mg magnesium) tablet 400 mg PO DAILY supplement 04/12/16 [History Last Taken 04/07/19] pgcqyrxv-fcr-uoshy acid 0.4 mg-lycopene 300 mcg-lutein 250 mcg tablet 1 ea PO DAILY vitamin 04/12/16 [History Last Taken 04/07/19] hydrochlorothiazide 12.5 mg capsule 12.5 mg PO DAILY BP/water pill 09/02/19 [History Last Taken Unknown] sertraline 100 mg tablet 100 mg PO QHS depression 09/05/19 [History Last Taken Unknown] aspirin 81 mg tablet,delayed release (Adult Aspirin Regimen) 81 mg PO DAILY 11/10/20 [History Last Taken Unknown] ferrous sulfate 325 mg (65 mg iron) tablet 325 mg PO BID 11/10/20 [History Last Taken Unknown] albuterol sulfate 90 mcg/actuation aerosol inhaler 2 puff inhalation Q6H PRN ASTHMA 05/25/21 [History Last Taken Unknown] fluticasone propionate 50 mcg/actuation nasal spray,suspension 1 spray intranasal DAILY 05/25/21 [History Last Taken Unknown] omeprazole 40 mg capsule,delayed release 40 mg PO DAILY 05/25/21 [History Last Taken Unknown] oxybutynin chloride 15 mg tablet,extended release 24 hr 30 mg PO DAILY 05/25/21 [History Last Taken Unknown] ascorbic acid (vitamin C) 500 mg capsule mg PO 05/17/22 [History Last Taken Unknown] atenolol 50 mg tablet 50 mg PO DAILY 05/17/22 [History Last Taken Unknown] furosemide 20 mg tablet 20 mg PO Q OTHER DAY 05/17/22 [History Last Taken Unknown] melatonin 10 mg capsule 10 mg PO HS PRN 05/17/22 [History Last Taken Unknown] nitroglycerin 0.4 mg sublingual tablet 0.4 mg sublingual Q5M PRN 05/17/22 [History Last Taken Unknown] Allergy/AdvReac Type Severity Reaction Status Date / Time hydrocodone [From Vicodin] Allergy Other Verified 07/05/22 08:50 strawberry Allergy Hives Verified 07/05/22 08:50 venom-honey bee Allergy Anaphylaxis Verified 07/05/22 08:50 [bee venom (honey bee)] adhesive tape AdvReac Rash Verified 07/05/22 08:50 atorvastatin AdvReac PT UNSURE Verified 07/05/22 08:50 OF REACTION montelukast AdvReac PT UNSURE Verified 07/05/22 08:50 OF REACTION Family History Father CAD (coronary artery disease) Brother Diabetes Mother Heart disease Surgical History History of aortic valve replacement with bioprosthetic valve (01/18/11) History of hip surgery (08/2019) History of knee replacement History of left heart catheterization (01/05/11) History of tonsillectomy History of total left hip arthroplasty History of total left hip replacement History of umbilical hernia repair Social History household members: none Smoking Status: Never smoker substance use type: does not use Vital Signs Vital Signs Vital Signs: 07/05/22 08:21 Temperature 97.1 F L Temperature Source Temporal Pulse Rate 71 Respiratory Rate 22 H Blood Pressure 126/66 H Blood Pressure Mean 86 Blood Pressure Source Monitor Weight Weight: 241 lb 0.008 oz Body Mass Index (BMI) 0.0 Physical Exam Const alert, oriented x3, no apparent distress and well nourished Constitutional Narrative: The patient is obese. General Appearance: cooperative, comfortable, well kempt and well developed Orientation / Consciousness: awake, oriented to person, oriented to place and oriented to time Exam Limitations: no limitations HEENT normocephalic, head/scalp atraumatic and hearing grossly normal bilaterally Head and Scalp: normal to inspection, normocephalic and atraumatic External Ear: external ears normal Eyes PERRL and EOMs intact bilaterally General Eye: normal appearance of both eyes Resp normal respiratory effort, normal air movement, no retractions and no use of accessory muscles Effort and Inspection: able to speak in complete sentences Extremity no calf tenderness General Extremity: Negative for clubbing or cyanosis Skin Wound Narrative: Moderate swelling and edema are noted in the lower extremities bilaterally. Erythema is noted in the gaiter areas bilaterally, appearing to be inflammatory in nature, rather than cellulitic. There are scattered superficial excoriations bilaterally in the lower extremities. There does not appear to be evidence of diego infection or cellulitis. Neuro oriented x3, CN's II-XII intact bilaterally and moves all extremities Sensorium / Orientation: awake, alert, oriented to person, oriented to place and oriented to time Psych Appearance: grossly normal and appropriate Attitude: calm Activity / Motor Behavior: appropriate eye contact Speech: normal speech Mood & Affect: euthymic mood Thought Process: normal thought process Thought Content: normal thought content Attention / Concentration: attention grossly intact Debridement Note Debridement Note No debridement was completed: No debridement was completed today Post-Debridement Measurements and Additional Note: Post-Debridement Measurements/Treatment - Nurse 1 - General Ulcer Assessment Start: 07/05/22 08:14 Freq: Status: Active Protocol: SHAYLA Activity Type Activity Date Activity User E-sign Co-sign Detail Recorded Client Recorded Date Recorded By Document 07/05/22 08:21 DL [id number] 07/05/22 08:40 DL 07/05/22 08:21 - Today's Visit Information Type of service Initial Visit Arrival Mode Ambulatory, Walker Transfer Assistance None Patient Identification Verified (Name & Yes ) Patient Requires Transmission-Based No Precautions Height and Weight Height 510 ft Weight 241 lb 0.008 oz Weight in Pounds 241.0 lbs Body Mass Index (BMI) 0.0 BMI Classification Underweight BSA - [place] 57.77 Vital Signs Temperature (97.8 F-99.1 F) 97.1 F L Temperature Source Temporal Pulse Rate (60-100) 71 Respiratory Rate (12-18) 22 H Respiratory rate source Observation Blood Pressure (90/60-120/80) 126/66 H Blood Pressure Mean 86 Source Monitor History Since Last Visit- (Skip if this is Patient's initial visit) Left Footwear Regular Shoe Right Footwear Regular Shoe Pain Scale: 0-10 Numeric Is Patient Pain Free? Yes Lower Extremity Assessment/ Foot Assessment/ Toe Nail Assessment Left -Posterior Tibial Palpable No -Dorsalis Pedis Palpable No -Extremity Color Hemosiderin -Hair Growth on Legs No -Hair Growth on Toes No -Temperature of Extremity Warm -Capillary Refill Greater than 3 Seconds -Dependent Rubor No -Blanched when Elevated No -Lipodermatosclerosis No -Other Deformity No -Prior Foot Ulcer No -Charcot Joint No -Prior Amputation No -Thick No -Discolored No -Deformed No -Improper Length & Hygeine No Right -Posterior Tibial Palpable No -Dorsalis Pedis Palpable No -Extremity Color Hemosiderin -Hair Growth on Legs No -Hair Growth on Toes No -Temperature of Extremity Warm -Capillary Refill Greater than 3 Seconds -Dependent Rubor No -Blanched when Elevated No -Lipodermatosclerosis No -Other Deformity No -Prior Foot Ulcer No -Charcot Joint No -Prior Amputation No -Thick No -Discolored No -Deformed No -Improper Length & Hygeine No Communication Assessment Preferred language Korean Able to Read Yes Able to Write Yes Communication Tools None Right Hearing Abillity Use of Hearing Aid Left Hearing Abillity Use of Hearing Aid Visual Assistive Devices Glasses Teaching Assessment Preferences Verbal,Written Barriers to Learning None Readiness To Learn Good Willingness to Engage in Self Management Med Activies Readiness to Engage in Self Management Med Activities Anxiety Level Calm Cooperation Cooperative Perception Coherent Interest in Health Problem Asks Questions Education Importance Acknowledges Need Does Patient Smoke tobacco or other No substances Smoking Status Never smoker Is Patient Diabetic No Functional Assessment Recent Decline in Ability to Perform Denies Any Declines Culture/Yarsani/Bilingual Customer Service Specialist Cultural/Yarsani Needs that may affect No Treatment Plan Would you allow our hospital job checker to No meet you for the purpose of spiritual/ emotional support? Bilingual Customer Service Specialist to contact place of alevism No Teaching: Wound Center Diagnostic Tests Ordered -Person Taught Patient Dressing Your Wound -Person Taught Patient Control Swelling with Leg Elevation -Person Taught Patient Discharge Instructions -Person Taught Patient *Welcome to the Wound Center -Person Taught Patient WC - Nurse 1 - General Ulcer Measurement Start: 07/05/22 08:14 Freq: Status: Active Protocol: Activity Type Activity Date Activity User E-sign Co-sign Detail Recorded Client Recorded Date Recorded By Document 07/05/22 08:21 DL [id number] 07/05/22 08:40 DL 07/05/22 08:21 Wound Center Nurse 1 #3 L [place] -Current Size (cm) - Length 1 -Current Size (cm) - Width 0.6 -Current Size (cm) - Depth 0.1 -Total Square Cm 0.6 -Photo Taken Yes -Classification - Thickness Full Thickness without Exposed Support Structure -Exudate Amt Small -Exudate Type Serosanguineous -Wound Margin Distinct, Outline Attached -Granulation Amt None Present (0 %) -Necrosis Amt Large (67-100%) -Necrotic Tissue Type Adherent Slough -Structure Exposed N/A -Texture (Lori-wound Skin Appearance) Localized Edema ,Scarring -Moisture (Lori-wound Skin Appearance) Weeping -Color (Lori-wound Skin Appearance) No Abnormality -Temperature (Lori-wound Skin No Abnormality Appearance) (Pt Warm) -Tenderness on Palpation (Lori-wound No Skin Appearance) -Ulcer Cleansing Soap and Water -Foul Odor after Cleansing No -Anesthetic Used 5% Lidocaine Gel #2 RLE Post Cluster -Current Size (cm) - Length 3 -Current Size (cm) - Width 6 -Current Size (cm) - Depth 0.1 -Total Square Cm 18 -Photo Taken Yes -Classification - Thickness Full Thickness without Exposed Support Structure -Exudate Amt Small -Exudate Type Serosanguineous -Wound Margin Distinct, Outline Attached -Granulation Amt None Present (0 %) -Necrosis Amt Large (67-100%) -Necrotic Tissue Type Adherent Slough -Structure Exposed N/A -Texture (Lori-wound Skin Appearance) Localized Edema ,Scarring -Moisture (Olri-wound Skin Appearance) Weeping -Color (Lori-wound Skin Appearance) No Abnormality -Temperature (Lori-wound Skin No Abnormality Appearance) (Pt Warm) -Tenderness on Palpation (Lori-wound No Skin Appearance) -Ulcer Cleansing Soap and Water -Foul Odor after Cleansing No -Anesthetic Used 5% Lidocaine Gel #1 R [place] -Current Size (cm) - Length 0.7 -Current Size (cm) - Width 1 -Current Size (cm) - Depth 0.1 -Total Square Cm 0.7 -Photo Taken Yes -Exudate Amt Small -Exudate Type Serosanguineous -Wound Margin Distinct, Outline Attached -Granulation Amt None Present (0 %) -Necrosis Amt Large (67-100%) -Necrotic Tissue Type Adherent Slough -Structure Exposed N/A -Texture (Lori-wound Skin Appearance) Localized Edema ,Scarring -Moisture (Lori-wound Skin Appearance) Weeping -Color (Lori-wound Skin Appearance) Erythema -Temperature (Lori-wound Skin No Abnormality Appearance) (Pt Warm) -Tenderness on Palpation (Lori-wound No Skin Appearance) -Ulcer Cleansing Soap and Water -Foul Odor after Cleansing No -Anesthetic Used 5% Lidocaine Gel WC - Nurse 2 - General Ulcer CM Notes Start: 07/05/22 08:14 Freq: Status: Active Protocol: Activity Type Activity Date Activity User E-sign Co-sign Detail Recorded Client Recorded Date Recorded By Document 07/05/22 09:13 MW [id number] 07/05/22 09:27 MW 07/05/22 09:13 Wound Center Nurse 2 #3 L Monzon -Time 09:14 -Correct Patient Yes -Correct Side, Site, Position Yes -Correct Procedure Yes -Procedure Performed No -Post Debridement (cm) - Length 1.0 -Post Debridement (cm) - Width 0.6 -Post Debridement (cm) - Depth 0.1 -Total Square (Post) (cm) 0.60 -Tunneling No -Undermining/Tunneling No -Circular Undermining No -Wound/Ulcer Outcome Not Healed #2 RLE Post Cluster -Time 09:14 -Correct Patient Yes -Correct Side, Site, Position Yes -Correct Procedure Yes -Procedure Performed No -Post Debridement (cm) - Length 3.0 -Post Debridement (cm) - Width 6.0 -Post Debridement (cm) - Depth 0.1 -Total Square (Post) (cm) 18.00 -Tunneling No -Undermining/Tunneling No -Circular Undermining No -Wound/Ulcer Outcome Not Healed #1 R Monzon -Time 09:14 -Correct Patient Yes -Correct Side, Site, Position Yes -Correct Procedure Yes -Procedure Performed No -Post Debridement (cm) - Length 0.7 -Post Debridement (cm) - Width 1.0 -Post Debridement (cm) - Depth 0.1 -Total Square (Post) (cm) 0.70 -Tunneling No -Undermining/Tunneling No -Circular Undermining No -Wound/Ulcer Outcome Not Healed Pain Scale: 0-10 Numeric Is Patient Pain Free? Yes Assessment/Plan Assessment/Plan (1) Right leg swelling: CODE(S): M79.89 - Other specified soft tissue disorders (2) Left leg swelling: CODE(S): M79.89 - Other specified soft tissue disorders (3) Leg edema, right: CODE(S): R60.0 - Localized edema (4) Leg edema, left: CODE(S): R60.0 - Localized edema (5) Nonrheumatic aortic (valve) stenosis: CODE(S): I35.0 - Nonrheumatic aortic (valve) stenosis (6) History of aortic valve replacement with bioprosthetic valve: CODE(S): Z95.3 - Presence of xenogenic heart valve (7) Essential (primary) hypertension: CODE(S): I10 - Essential (primary) hypertension (8) Hyperlipemia: CODE(S): E78.5 - Hyperlipidemia, unspecified (9) Right bundle branch block (RBBB): CODE(S): I45.10 - Unspecified right bundle-branch block (10) Retinal artery occlusion: CODE(S): H34.9 - Unspecified retinal vascular occlusion (11) CKD (chronic kidney disease), stage III: CODE(S): N18.3 - Chronic kidney disease, stage 3 (moderate) (12) PCK (polycystic kidney disease): CODE(S): Q61.3 - Polycystic kidney, unspecified (13) Obesity (BMI 30-39.9): CODE(S): E66.9 - Obesity, unspecified (14) Cirrhosis: CODE(S): K74.60 - Unspecified cirrhosis of liver (15) Obstructive sleep apnea on CPAP: CODE(S): G47.33 - Obstructive sleep apnea (adult) (pediatric); Z99.89 - Dependence on other enabling machines and devices (16) GERD (gastroesophageal reflux disease): CODE(S): K21.9 - Gastro-esophageal reflux disease without esophagitis (17) Gout: CODE(S): M10.9 - Gout, unspecified (18) Coronary artery disease: CODE(S): I25.10 - Atherosclerotic heart disease of [place] coronary artery without angina pectoris (19) Asthma: CODE(S): J45.909 - Unspecified asthma, uncomplicated (20) Peripheral neuropathy: CODE(S): G62.9 - Polyneuropathy, unspecified (21) Splenomegaly: CODE(S): R16.1 - Splenomegaly, not elsewhere classified (22) Anemia of chronic disease: CODE(S): D63.8 - Anemia in other chronic diseases classified elsewhere (23) Urge incontinence: CODE(S): N39.41 - Urge incontinence (24) History of cerebrovascular accident: CODE(S): Z86.73 - Personal history of transient ischemic attack (TIA), and cerebral infarction without residual deficits (25) History of total left hip arthroplasty: CODE(S): Z96.642 - Presence of left artificial hip joint (26) History of total left hip replacement: CODE(S): Z96.642 - Presence of left artificial hip joint (27) History of tonsillectomy: CODE(S): Z90.89 - Acquired absence of other organs PLAN: Plan This is an 82-year-old male who presents with chronic swelling and edema in his lower extremities. Within the last 3 weeks, he has noted the development of blisters and superficial excoriations. The excoriations are associated with mild erythema, which is thought to be inflammatory in nature. The patient is also noted to be obese. His activity level is limited. He spends a great deal of each day seated. A lengthy discussion has been undertaken with the patient, as well as his daughter, who is at the bedside. The patient has been encouraged to continue sleeping on a flat mattress at night. He has also been encouraged to elevate his lower extremities is much as possible, even during daytime hours. Elevation is to be to heart level, or higher. Prolonged idle sitting has been discouraged. Activity has been encouraged. The patient has been also encouraged to lose weight. Nutritional optimization has been also recommended. We are to implement compression to the lower extremities by means of Unna boots which will be applied bilaterally, and will be changed twice weekly. The Unna boots will be applied with light modified compression due to the patient's cardiac history, in an effort to minimize the possibility of congestive heart failure due to venous and lymphatic return to the central venous system. The patient and his daughter have been advised to seek medical attention without delay if he experiences shortness of breath, chest pain, etc. The patient is to follow-up for routine reevaluation in 2 weeks. Recent laboratory tests have been obtained on May 05, 2022, with results as follows: White blood count 3.6, hemoglobin 10.3, hematocrit 33.5, platelets 81,000. Total time: 54 minutes
[2022-07-08 14:40] VITALS: BP 165/75; PULSE 78; RESP 18; TEMP 36.4
[2022-07-12 08:05] VITALS: BP 134/73; PULSE 72; RESP 22; TEMP 35.6
[2022-07-15 14:37] VITALS: BP 149/78; PULSE 100; RESP 18; TEMP 36.1
--- NOTE | 2022-08-02 14:39 | WC ---
07/05/22 Wound #1 Right [place]zon
== END 2022-07-15 23:59 | disposition home or self-care (01) ==
LOC: WC 14:15
PROVIDERS: PCP Internal Medicine; Referring Provider Nurse Practitioner; Visit Provider Surgery
DX: R60.0 Localized edema (principal); K74.60 Unspecified cirrhosis of liver; N18.30 Chronic kidney disease, stage 3 unspecified; G62.9 Polyneuropathy, unspecified; G47.33 Obstructive sleep apnea (adult) (pediatric); K21.9 Gastro-esophageal reflux disease without esophagitis; I12.9 Hypertensive chronic kidney disease with stage 1 through stage 4 chronic kidney disease, or unspecified chronic kidney disease; D63.1 Anemia in chronic kidney disease; J45.909 Unspecified asthma, uncomplicated; M10.9 Gout, unspecified; Z95.3 Presence of xenogenic heart valve; E66.9 Obesity, unspecified; E78.5 Hyperlipidemia, unspecified; I25.10 Atherosclerotic heart disease of native coronary artery without angina pectoris; N39.41 Urge incontinence; Q61.3 Polycystic kidney, unspecified; M79.89 Other specified soft tissue disorders; Z79.899 Other long term (current) drug therapy; Z79.82 Long term (current) use of aspirin; Z79.51 Long term (current) use of inhaled steroids
CPT/HCPCS: 29580; 99213; G0463

== ENCOUNTER 2022-07-19 08:01 | Outpatient (RCR) | payer MEDICARE, OTHER, SELFPAY ==
[2022-07-16 02:18] VITALS: BP 149/78; PULSE 100; RESP 18; TEMP 36.1
[2022-07-19 08:04] VITALS: BP 119/83; PULSE 84; RESP 16; TEMP 35.9
--- NOTE | 2022-07-19 14:08 | PCM.WC.HP ---
History of Present Illness Date of Service: 07/19/22 Chief Complaint: Bilateral lower extremity swelling and edema with multiple superficial excoriations History of Wound: This is an 82-year-old male who presented with bilateral lower extremity swelling and edema. The patient stated that his swelling is worse each day in the evening. The swelling in his lower extremities is chronic, and has been ongoing for several years. Within the last 3 weeks prior to presentation, the patient hasd noted erythema and the development of blisters and superficial excoriations, for which the patient used topical antibiotic ointment. He had been placed on Keflex by his primary care physician for suspected cellulitis. He was recently taken off of Lasix, and a prescription for Demadex was recently provided. The patient denies a history of lower extremity thrombophlebitis. He lives alone. He is not active. He claims to sleep on a flat mattress at night. However, he spends long hours each day in the sitting position. Activity is limited. The patient is obese. [facility] Medical History Adenomatous colon polyp Anemia Anemia in chronic kidney disease Anemia of chronic disease Aortic valve disorder Asthma Asthma Asthma exacerbation Body mass index (BMI) 40.0-44.9, adult Cirrhosis CKD (chronic kidney disease), stage III Closed left hip fracture Coronary artery disease Debility Depression Essential (primary) hypertension GERD (gastroesophageal reflux disease) GERD (gastroesophageal reflux disease) Gout Gout History of cerebrovascular accident History of splenomegaly Hyperlipemia Hypomagnesemia Intestinal polyp Left leg swelling Leg edema, left Leg edema, right Morbid obesity Multiple lung nodules Nonobstructive atherosclerosis of coronary artery Nonrheumatic aortic (valve) stenosis OAB (overactive bladder) Obesity Obesity (BMI 30-39.9) Obstructive sleep apnea Obstructive sleep apnea on CPAP Osteoarthritis PCK (polycystic kidney disease) Peripheral neuropathy Polycystic kidney disease 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) Right bundle branch block (RBBB) Right leg swelling Splenomegaly Splenomegaly Thrombocytopenia UGIB (upper gastrointestinal bleed) Urge incontinence Home Medications allopurinol 300 mg tablet 300 mg PO DAILY gout 04/12/16 [History Last Taken 04/07/19] fenofibrate nanocrystallized 48 mg tablet 48 mg PO DAILY cholesterol 04/12/16 [History Last Taken 04/07/19] magnesium oxide 400 mg (241.3 mg magnesium) tablet 400 mg PO DAILY supplement 04/12/16 [History Last Taken 04/07/19] vjlsdvhw-xbn-jbrdu acid 0.4 mg-lycopene 300 mcg-lutein 250 mcg tablet 1 ea PO DAILY vitamin 04/12/16 [History Last Taken 04/07/19] hydrochlorothiazide 12.5 mg capsule 12.5 mg PO DAILY BP/water pill 09/02/19 [History Last Taken Unknown] sertraline 100 mg tablet 100 mg PO QHS depression 09/05/19 [History Last Taken Unknown] aspirin 81 mg tablet,delayed release (Adult Aspirin Regimen) 81 mg PO DAILY 11/10/20 [History Last Taken Unknown] ferrous sulfate 325 mg (65 mg iron) tablet 325 mg PO BID 11/10/20 [History Last Taken Unknown] albuterol sulfate 90 mcg/actuation aerosol inhaler 2 puff inhalation Q6H PRN ASTHMA 05/25/21 [History Last Taken Unknown] fluticasone propionate 50 mcg/actuation nasal spray,suspension 1 spray intranasal DAILY 05/25/21 [History Last Taken Unknown] omeprazole 40 mg capsule,delayed release 40 mg PO DAILY 05/25/21 [History Last Taken Unknown] oxybutynin chloride 15 mg tablet,extended release 24 hr 30 mg PO DAILY 05/25/21 [History Last Taken Unknown] ascorbic acid (vitamin C) 500 mg capsule mg PO 05/17/22 [History Last Taken Unknown] atenolol 50 mg tablet 50 mg PO DAILY 05/17/22 [History Last Taken Unknown] furosemide 20 mg tablet 20 mg PO Q OTHER DAY 05/17/22 [History Last Taken Unknown] melatonin 10 mg capsule 10 mg PO HS PRN 05/17/22 [History Last Taken Unknown] nitroglycerin 0.4 mg sublingual tablet 0.4 mg sublingual Q5M PRN 05/17/22 [History Last Taken Unknown] Allergy/AdvReac Type Severity Reaction Status Date / Time hydrocodone [From Vicodin] Allergy Other Verified 07/05/22 08:50 strawberry Allergy Hives Verified 07/05/22 08:50 venom-honey bee Allergy Anaphylaxis Verified 07/05/22 08:50 [bee venom (honey bee)] adhesive tape AdvReac Rash Verified 07/05/22 08:50 atorvastatin AdvReac PT UNSURE Verified 07/05/22 08:50 OF REACTION montelukast AdvReac PT UNSURE Verified 07/05/22 08:50 OF REACTION Family History Father CAD (coronary artery disease) Brother Diabetes Mother Heart disease Surgical History History of aortic valve replacement with bioprosthetic valve (01/18/11) History of hip surgery (08/2019) History of knee replacement History of left heart catheterization (01/05/11) History of tonsillectomy History of total left hip arthroplasty History of total left hip replacement History of umbilical hernia repair Social History household members: none Smoking Status: Never smoker substance use type: does not use Vital Signs Vital Signs Vital Signs: 07/19/22 08:04 Temperature 96.7 F L Temperature Source Temporal Pulse Rate 84 Respiratory Rate 16 Blood Pressure 119/83 H Blood Pressure Mean 95 Blood Pressure Source Monitor Blood Pressure Position Sitting Blood Pressure Location Right Forearm Oxygen Delivery Method Room Air Weight Weight: 241 lb 0.008 oz Body Mass Index (BMI) 0.0 Physical Exam Const alert, oriented x3, no apparent distress and well nourished Constitutional Narrative: The patient is obese. General Appearance: cooperative, comfortable, well kempt and well developed Orientation / Consciousness: awake, oriented to person, oriented to place and oriented to time Exam Limitations: no limitations HEENT normocephalic, head/scalp atraumatic and hearing grossly normal bilaterally Head and Scalp: normal to inspection, normocephalic and atraumatic External Ear: external ears normal Eyes PERRL and EOMs intact bilaterally General Eye: normal appearance of both eyes Resp normal respiratory effort, normal air movement, no retractions and no use of accessory muscles Effort and Inspection: able to speak in complete sentences Extremity no calf tenderness General Extremity: Negative for clubbing or cyanosis Skin Wound Narrative: The swelling and edema in the patient's lower extremities has resolved. Erythema, previously noted, has also resolved. The superficial excoriations in the lower extremities have also resolved. There is no sign of infection or cellulitis. Neuro oriented x3, CN's II-XII intact bilaterally and moves all extremities Sensorium / Orientation: awake, alert, oriented to person, oriented to place and oriented to time Psych Appearance: grossly normal and appropriate Attitude: calm Activity / Motor Behavior: appropriate eye contact Speech: normal speech Mood & Affect: euthymic mood Thought Process: normal thought process Thought Content: normal thought content Attention / Concentration: attention grossly intact Debridement Note Debridement Note No debridement was completed: No debridement was completed today (There are no open wounds or ulcerations.) Post-Debridement Measurements and Additional Note: Post-Debridement Measurements/Treatment WC - Nurse 1 - General Ulcer Assessment Start: 07/19/22 08:03 Freq: Status: Active Protocol: SHAYLA Activity Type Activity Date Activity User E-sign Co-sign Detail Recorded Client Recorded Date Recorded By Document 07/19/22 08:04 MW [id number] 07/19/22 08:26 MW 07/19/22 08:04 WC - Today's Visit Information Type of service Follow-up Visit (Physician/DI[employer] CLINICAL MANAGER ) Arrival Mode Ambulatory, Walker Transfer Assistance None Patient Identification Verified (Name & Yes ) Patient Requires Transmission-Based No Precautions Height and Weight Body Mass Index (BMI) 0.0 BMI Classification Underweight Vital Signs Temperature (97.8 F-99.1 F) 96.7 F L Temperature Source Temporal Pulse Rate (60-100) 84 Pulse Location Monitor Respiratory Rate (12-18) 16 Respiratory rate source Observation Oxygen Delivery Method Room Air Blood Pressure (90/60-120/80) 119/83 H Blood Pressure Mean 95 Source Monitor Position Sitting Blood Pressure Location Right Forearm History Since Last Visit- (Skip if this is Patient's initial visit) Have you changed medications since your No last visit? Any new allergies or adverse reactions No Had a fall/change in ADL's that may No increase risk of falls Signs or symptoms of abuse and/or No neglect since last visit Have you been in the hospital since your No last visit? Has dressing in place as prescribed Yes Has compression in place as prescribed Yes Has offloadiing in place as prescribed No Experienced any changes in pain level or No management Left Footwear Regular Shoe Right Footwear Regular Shoe Pain Scale: 0-10 Numeric Is Patient Pain Free? Yes ELIZABETH - Nurse 1 - General Ulcer Measurement Start: 07/19/22 08:03 Freq: Status: Active Protocol: Activity Type Activity Date Activity User E-sign Co-sign Detail Recorded Client Recorded Date Recorded By Document 07/19/22 08:04 MW [id number] 07/19/22 08:26 MW 07/19/22 08:04 Wound Center Nurse 1 #3 L [place] -Combined with other wound No -Current Size (cm) - Length 0 -Current Size (cm) - Width 0 -Current Size (cm) - Depth 0 -Total Square Cm 0 -Date of Last Picture (Recall this 07/19/22 field) -Photo Taken Yes -Epithelialization None Present -Tunneling No -Undermining/Tunneling No -Circular Undermining No -Exudate Amt None Present -Slough/Fibrin No -Necrosis Amt None Present (0 %) -Texture (Lori-wound Skin Appearance) Assessed, Localized Edema -Moisture (Lori-wound Skin Appearance) Dry/Scaly -Color (Lori-wound Skin Appearance) No Abnormality, Assessed -Temperature (Lori-wound Skin No Abnormality Appearance) (Pt Warm) -Tenderness on Palpation (Lori-wound No Skin Appearance) -Ulcer Cleansing Soap and Water -Foul Odor after Cleansing No #2 RLE Post Cluster -Combined with other wound No -Current Size (cm) - Length 0.1 -Current Size (cm) - Width 0.1 -Current Size (cm) - Depth 0.1 -Total Square Cm 0.01 -Date of Last Picture (Recall this 07/19/22 field) -Photo Taken Yes -Epithelialization Large 67-100% -Undermining/Tunneling No -Circular Undermining No -Exudate Amt None Present -Wound Margin Flat & Intact -Granulation Amt None Present (0 %) -Granulation Quality N/A -Necrosis Amt Small (1-33%) -Necrotic Tissue Type Adherent Slough -Structure Exposed N/A -Texture (Lori-wound Skin Appearance) Assessed, Localized Edema -Moisture (Lori-wound Skin Appearance) Assessed,Dry/ Scaly -Color (Lori-wound Skin Appearance) No Abnormality, Assessed -Temperature (Lori-wound Skin No Abnormality Appearance) (Pt Warm) -Tenderness on Palpation (Lori-wound No Skin Appearance) -Ulcer Cleansing Soap and Water -Foul Odor after Cleansing No -Anesthetic Used 5% Lidocaine Gel #1 R [place] -Combined with other wound No -Current Size (cm) - Length 0.1 -Current Size (cm) - Width 0.1 -Current Size (cm) - Depth 0.1 -Total Square Cm 0.01 -Date of Last Picture (Recall this 07/19/22 field) -Photo Taken Yes -Epithelialization Large 67-100% -Tunneling No -Undermining/Tunneling No -Circular Undermining No -Exudate Amt None Present -Wound Margin Flat & Intact -Slough/Fibrin Yes -Necrosis Amt Small (1-33%) -Necrotic Tissue Type Adherent Slough -Structure Exposed N/A -Texture (Lori-wound Skin Appearance) Assessed, Localized Edema -Moisture (Lori-wound Skin Appearance) Assessed,Dry/ Scaly -Color (Lori-wound Skin Appearance) No Abnormality, Assessed -Temperature (Lori-wound Skin No Abnormality Appearance) (Pt Warm) -Ulcer Cleansing Soap and Water -Foul Odor after Cleansing No -Anesthetic Used 5% Lidocaine Gel Lower Limb Edema Present Yes Right Calf (cm) 42.0 Right Ankle (cm) 27.0 Left Calf (cm) 43.0 Left Ankle (cm) 28.5 WC - Nurse 2 - General Ulcer CM Notes Start: 07/19/22 08:03 Freq: Status: Active Protocol: Activity Type Activity Date Activity User E-sign Co-sign Detail Recorded Client Recorded Date Recorded By Document 07/19/22 11:53 PL [id number] 07/19/22 11:54 PL 07/19/22 11:53 Wound Center Nurse 2 #3 L [place] -Procedure Performed No -Wound/Ulcer Outcome Healed- Epithelialized #2 RLE Post Cluster -Procedure Performed No -Wound/Ulcer Outcome Healed- Epithelialized #1 R [place] -Procedure Performed No -Wound/Ulcer Outcome Healed- Epithelialized Pain Scale: 0-10 Numeric Is Patient Pain Free? Yes WC - Nurse 3 - General Ulcer D/C NN Start: 07/19/22 08:03 Freq: Status: Active Protocol: Activity Type Activity Date Activity User E-sign Co-sign Detail Recorded Client Recorded Date Recorded By Document 07/19/22 08:55 MW [id number] 07/19/22 08:57 MW 07/19/22 08:55 Wound Care Center Nurse 3 Right -Lotion applied to leg before No compression wrap -Tubular Bandage Single Layer -Size of Tubigrip Used Size D -Size D ($) 2 Left -Tubular Bandage Single Layer -Size of Tubigrip Used Size D -Size D ($) 2 Treatment Response Procedure Tolerated Well Pain Scale: 0-10 Numeric Is Patient Pain Free? Yes Teaching: Wound Center Discharge Instructions -Person Taught Patient,Family -Teaching Method Discussion -Response to teaching Verbalize understanding Compression Wraps & Stockings -Person Taught Patient,Family -Teaching Method Discussion, Demonstration -Response to teaching Verbalize understanding WC - Visit Discharge Discharge Condition Stable Ambulatory Status Ambulatory, Walker Transportation Private Auto Accompanied by daughter Medication Reconcilliation completed & No provided to patient/care provider Clinical Summary of Care Provided Yes Notes: healed, discharged from clinic Assessment/Plan Assessment/Plan (1) Right leg swelling: CODE(S): M79.89 - Other specified soft tissue disorders (2) Left leg swelling: CODE(S): M79.89 - Other specified soft tissue disorders (3) Leg edema, right: CODE(S): R60.0 - Localized edema (4) Leg edema, left: CODE(S): R60.0 - Localized edema (5) Nonrheumatic aortic (valve) stenosis: CODE(S): I35.0 - Nonrheumatic aortic (valve) stenosis (6) History of aortic valve replacement with bioprosthetic valve: CODE(S): Z95.3 - Presence of xenogenic heart valve (7) Essential (primary) hypertension: CODE(S): I10 - Essential (primary) hypertension (8) Hyperlipemia: CODE(S): E78.5 - Hyperlipidemia, unspecified (9) Right bundle branch block (RBBB): CODE(S): I45.10 - Unspecified right bundle-branch block (10) Retinal artery occlusion: CODE(S): H34.9 - Unspecified retinal vascular occlusion (11) CKD (chronic kidney disease), stage III: CODE(S): N18.3 - Chronic kidney disease, stage 3 (moderate) (12) PCK (polycystic kidney disease): CODE(S): Q61.3 - Polycystic kidney, unspecified (13) Obesity (BMI 30-39.9): CODE(S): E66.9 - Obesity, unspecified (14) Cirrhosis: CODE(S): K74.60 - Unspecified cirrhosis of liver (15) Obstructive sleep apnea on CPAP: CODE(S): G47.33 - Obstructive sleep apnea (adult) (pediatric); Z99.89 - Dependence on other enabling machines and devices (16) GERD (gastroesophageal reflux disease): CODE(S): K21.9 - Gastro-esophageal reflux disease without esophagitis (17) Gout: CODE(S): M10.9 - Gout, unspecified (18) Coronary artery disease: CODE(S): I25.10 - Atherosclerotic heart disease of [place] coronary artery without angina pectoris (19) Asthma: CODE(S): J45.909 - Unspecified asthma, uncomplicated (20) Peripheral neuropathy: CODE(S): G62.9 - Polyneuropathy, unspecified (21) Splenomegaly: CODE(S): R16.1 - Splenomegaly, not elsewhere classified (22) Anemia of chronic disease: CODE(S): D63.8 - Anemia in other chronic diseases classified elsewhere (23) Urge incontinence: CODE(S): N39.41 - Urge incontinence (24) History of cerebrovascular accident: CODE(S): Z86.73 - Personal history of transient ischemic attack (TIA), and cerebral infarction without residual deficits (25) History of total left hip arthroplasty: CODE(S): Z96.642 - Presence of left artificial hip joint (26) History of total left hip replacement: CODE(S): Z96.642 - Presence of left artificial hip joint (27) History of tonsillectomy: CODE(S): Z90.89 - Acquired absence of other organs PLAN: Plan This is an 82-year-old male who presented with chronic swelling and edema in his lower extremities. Within the 3 weeks prior to presentation, he had noted the development of blisters and superficial excoriations. The excoriations were associated with mild erythema, which was thought to be inflammatory in nature. The patient is also obese. His activity level is limited. He spends a great deal of each day seated. As of today, the swelling, edema, erythema, and excoriations have resolved. He has responded in satisfactory fashion to the conservative treatment measures which have been implemented. A lengthy discussion has been undertaken with the patient, as well as his daughter, who is at the bedside. The patient has been encouraged to continue sleeping on a flat mattress at night. He has also been encouraged to elevate his lower extremities is much as possible, even during daytime hours. Elevation is to be to heart level, or higher. Prolonged idle sitting has been discouraged. Activity has been encouraged. The patient has been also encouraged to lose weight. Nutritional optimization has been also recommended. We have discussed the options of management relative to long-term daytime compression to the lower extremities. We have discussed the use of graduated compression stockings, CircAid Velcro compression garments, etc. At this juncture, the patient wishes to implement a routine which will involve the use of 2 pairs of graduated compression stockings, each of 10 to 15 mmHg compression. He is to wear 2 pairs of the stockings each day, from morning until bedtime. The patient has been made aware that compression is additive, and he will be implementing 20 to 30 mmHg compression to each lower extremity. At this time, there is minimal swelling, so the risk of congestive heart failure appears minimal, as it appears that there is little or no additional fluid to make its way into the central venous system. The patient has done well, and will follow-up henceforth on an as-needed basis. Tubigrip's of 20 to 30 mmHg compression have been applied today, and the patient has been provided a prescription for the double pair of graduated compression stockings measuring 10 to 15 mmHg. Total time: 25 minutes
== END 2022-07-20 14:09 | disposition home or self-care (01) ==
LOC: WC 08:01
PROVIDERS: PCP Internal Medicine; Referring Provider Nurse Practitioner; Visit Provider Surgery
DX: R60.0 Localized edema (principal); K74.60 Unspecified cirrhosis of liver; N18.30 Chronic kidney disease, stage 3 unspecified; G47.33 Obstructive sleep apnea (adult) (pediatric); Z95.3 Presence of xenogenic heart valve; N39.41 Urge incontinence; K21.9 Gastro-esophageal reflux disease without esophagitis; E66.9 Obesity, unspecified; J45.909 Unspecified asthma, uncomplicated; D63.1 Anemia in chronic kidney disease; I25.10 Atherosclerotic heart disease of native coronary artery without angina pectoris; M10.9 Gout, unspecified; Q61.3 Polycystic kidney, unspecified; I12.9 Hypertensive chronic kidney disease with stage 1 through stage 4 chronic kidney disease, or unspecified chronic kidney disease; E78.5 Hyperlipidemia, unspecified; Z79.899 Other long term (current) drug therapy; Z79.82 Long term (current) use of aspirin
CPT/HCPCS: 99213; G0463

== ENCOUNTER 2022-09-11 14:43 | Emergency (ER) | payer MEDICARE, OTHER, SELFPAY ==
[2022-09-11 14:44] VITALS: BP 145/107; PULSE 110; RESP 24; TEMP 36.6; O2SAT 99; BMI 32.3
--- NOTE | 2022-09-11 15:11 | RAD_ITS ---
STUDY: X-RAY - LUMBAR SPINE REASON FOR EXAM: Male, 82 years old. pain TECHNIQUE: XR Spine Lumbar 2 or 3 Views COMPARISON: None FINDINGS: Normal lumbar lordosis. There is a dextroscoliosis of the lumbar spine. There is a normal alignment of the vertebrae. There is multilevel endplate spondylosis of the lumbar vertebrae. There is multi-level degenerative disc disease with multi-level disc space narrowing. There are atherosclerotic vascular calcifications. The soft tissue structures are unremarkable. RAD/Lumbar Spine 2 or 3 Views IMPRESSION: Degenerative changes of the spine, as detailed above. Electronically Signed: Mor Milian MD at 16:35 EDT ,
--- NOTE | 2022-09-11 15:13 | EX.ED.DYSGE1 ---
HPI <LORRAINE Arais - Last Filed: 09/11/22 19:46> History of Present Illness Chief Complaint: Lower Extremity Injury Narrative Narrative: 82-year-old male presents with 3 days of left hip pain. He fell about 10 days ago but had no pain then so does not think it is from that. He normally sleeps with his legs elevated but recently also has had elevated [place] of U-shape and thinks this may have irritated the area. Pain does not radiate down the leg and he has no weakness numbness or tingling. He has some chronic left-sided weakness from his stroke but nothing new. [facility] <LORRAINE Arias - Last Filed: 09/11/22 19:46> [facility] Medical History Adenomatous colon polyp Anemia Anemia in chronic kidney disease Anemia of chronic disease Aortic valve disorder Asthma Asthma Asthma exacerbation Body mass index (BMI) 40.0-44.9, adult Cirrhosis CKD (chronic kidney disease), stage III Closed left hip fracture Coronary artery disease Debility Depression Essential (primary) hypertension GERD (gastroesophageal reflux disease) GERD (gastroesophageal reflux disease) Gout Gout History of cerebrovascular accident History of splenomegaly Hyperlipemia Hypomagnesemia Intestinal polyp Left leg swelling Leg edema, left Leg edema, right Morbid obesity Multiple lung nodules Nonobstructive atherosclerosis of coronary artery Nonrheumatic aortic (valve) stenosis OAB (overactive bladder) Obesity Obesity (BMI 30-39.9) Obstructive sleep apnea Obstructive sleep apnea on CPAP Osteoarthritis PCK (polycystic kidney disease) Peripheral neuropathy Polycystic kidney disease 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) Right bundle branch block (RBBB) Right leg swelling Splenomegaly Splenomegaly Thrombocytopenia UGIB (upper gastrointestinal bleed) Urge incontinence Home Medications allopurinol 300 mg tablet 300 mg PO DAILY gout 04/12/16 [History Last Taken 04/07/19] fenofibrate nanocrystallized 48 mg tablet 48 mg PO DAILY cholesterol 04/12/16 [History Last Taken 04/07/19] magnesium oxide 400 mg (241.3 mg magnesium) tablet 400 mg PO DAILY supplement 04/12/16 [History Last Taken 04/07/19] ixenorfn-mdb-swpxb acid 0.4 mg-lycopene 300 mcg-lutein 250 mcg tablet 1 ea PO DAILY vitamin 04/12/16 [History Last Taken 04/07/19] hydrochlorothiazide 12.5 mg capsule 12.5 mg PO DAILY BP/water pill 09/02/19 [History Last Taken Unknown] sertraline 100 mg tablet 100 mg PO QHS depression 09/05/19 [History Last Taken Unknown] aspirin 81 mg tablet,delayed release (Adult Aspirin Regimen) 81 mg PO DAILY 11/10/20 [History Last Taken Unknown] ferrous sulfate 325 mg (65 mg iron) tablet 325 mg PO BID 11/10/20 [History Last Taken Unknown] albuterol sulfate 90 mcg/actuation aerosol inhaler 2 puff inhalation Q6H PRN ASTHMA 05/25/21 [History Last Taken Unknown] fluticasone propionate 50 mcg/actuation nasal spray,suspension 1 spray intranasal DAILY 05/25/21 [History Last Taken Unknown] omeprazole 40 mg capsule,delayed release 40 mg PO DAILY 05/25/21 [History Last Taken Unknown] oxybutynin chloride 15 mg tablet,extended release 24 hr 30 mg PO DAILY 05/25/21 [History Last Taken Unknown] ascorbic acid (vitamin C) 500 mg capsule mg PO 05/17/22 [History Last Taken Unknown] atenolol 50 mg tablet 50 mg PO DAILY 05/17/22 [History Last Taken Unknown] furosemide 20 mg tablet 20 mg PO Q OTHER DAY 05/17/22 [History Last Taken Unknown] melatonin 10 mg capsule 10 mg PO HS PRN 05/17/22 [History Last Taken Unknown] nitroglycerin 0.4 mg sublingual tablet 0.4 mg sublingual Q5M PRN 05/17/22 [History Last Taken Unknown] lidocaine 5 % topical patch (Lidoderm) 1 patch topical DAILY #15 ea 09/11/22 [Rx Last Taken Unknown] Allergy/AdvReac Type Severity Reaction Status Date / Time hydrocodone [From Vicodin] Allergy Other Verified 09/11/22 14:46 strawberry Allergy Hives Verified 09/11/22 14:46 venom-honey bee Allergy Anaphylaxis Verified 09/11/22 14:46 [bee venom (honey bee)] adhesive tape AdvReac Rash Verified 09/11/22 14:46 atorvastatin AdvReac PT UNSURE Verified 09/11/22 14:46 OF REACTION montelukast AdvReac PT UNSURE Verified 09/11/22 14:46 OF REACTION Family History Father CAD (coronary artery disease) Brother Diabetes Mother Heart disease Surgical History History of aortic valve replacement with bioprosthetic valve (01/18/11) History of hip surgery (08/2019) History of knee replacement History of left heart catheterization (01/05/11) History of tonsillectomy History of total left hip arthroplasty History of total left hip replacement History of umbilical hernia repair Social History household members: none Smoking Status: Never smoker substance use type: does not use ROS <LORRAINE Arias - Last Filed: 09/11/22 19:46> ROS ED ROS Narrative Constitutional: Negative for fever, chills, malaise. CVS: Negative for chest pain. Respiratory: Negative for shortness of breath. GI: Negative for abdominal pain, nausea, vomiting. : Negative for dysuria. Neuro: Negative for motor/sensory dysfunction. Musc: Positive for left hip pain. No swelling, trauma. EXAM <LORRAINE Arias - Last Filed: 09/11/22 19:46> Physical Exam Narrative Exam Narrative: CONST: Patient sitting in no acute distress. EYES: Normal inspection. NECK: Normal inspection. RESP: No respiratory distress, CTAB. CVS: Regular rate and rhythm, no murmur, no gallop. Back: Normal inspection, small bruise left lumbar area with tenderness, no midline tenderness or step-offs. SKIN: Color normal, no rash, warm, dry, intact. EXTREMITIES: Normal appearance, lower extremities have no shortening or rotation. With movement of the hip he seems to have some left lower back pain. He has some chronic decreased strength of the extremity from prior stroke but distal strength and sensation are intact. 2+ DP pulse. NEURO: Oriented x4. PSYCH: Normal affect. Const Vital Signs: 09/11/22 14:44 09/11/22 16:53 Temperature 97.9 F 97.8 F Temperature Source Temporal Pulse Rate 110 H 68 Respiratory Rate 24 H 16 Blood Pressure 145/107 H 141/78 H Blood Pressure Mean 119 Pulse Ox 99 100 Oxygen Delivery Method Room Air <Dr. Tom Mayorga, DO - Last Filed: 09/11/22 16:41> Physical Exam Const Vital Signs: 09/11/22 14:44 09/11/22 16:53 Temperature 97.9 F 97.8 F Temperature Source Temporal Pulse Rate 110 H 68 Respiratory Rate 24 H 16 Blood Pressure 145/107 H 141/78 H Blood Pressure Mean 119 Pulse Ox 99 100 Oxygen Delivery Method Room Air MDM <LORRAINE Arias - Last Filed: 09/11/22 19:46> [facility] Narrative Medical decision making narrative: History gathered from: Patient Patient here with atraumatic left low back and hip pain. He thinks it might be from his sleeping position. He does appear uncomfortable. He has a small old bruise on the left lower lumbar region with reproducible muscle tenderness. No midline spinal tenderness. Movement of the hip seems to cause some low back pain as well. Lower extremities are neurovascularly intact. X-rays of the lumbar spine and hip show no acute findings. His hip hardware is intact. He had resolution of his pain after lidocaine patches so I suspect this musculoskeletal. I prescribed this for home and recommended Tylenol and ice. He was discharged in stable condition. Radiography Diagnostic Testing: Clinical Impression(s) from Imaging Studies Lumbar Spine X-Ray 09/11/22 15:11 IMPRESSION: Degenerative changes of the spine, as detailed above. Electronically Signed: Mor Milian MD at 16:35 EDT , Hip/Pelvis X-Ray 09/11/22 15:25 IMPRESSION: No acute findings in the pelvis or left hip. Electronically Signed: Mor Milian MD at 16:35 EDT , ED attending interpretation of the lumbar spine shows degenerative changes but no fracture. ED attending interpretation of left hip shows hardware intact with no acute fracture pelvis or hip noted <Dr. Tom Mayorga DO - Last Filed: 09/11/22 16:41> [facility] Radiography Diagnostic Testing: Clinical Impression(s) from Imaging Studies Lumbar Spine X-Ray 09/11/22 15:11 IMPRESSION: Degenerative changes of the spine, as detailed above. Electronically Signed: Mor Milian MD at 16:35 EDT , Hip/Pelvis X-Ray 09/11/22 15:25 IMPRESSION: No acute findings in the pelvis or left hip. Electronically Signed: Mor Milian MD at 16:35 EDT , Treatment and Re-Evaluation :: I have personally performed a face to face assessment of the patient and have reviewed the [facility] Note. I performed a substantive portion of the visit including all aspects of the following. My simental findings include: History: Patient presents with left posterior hip pain that has been getting worse over the past few days. Patient fell 2 to 3 weeks ago and landed on his left hip. Patient has been sleeping in a recliner with his legs elevated and he has had elevated recently. Patient states his pain is worse with certain movements. Patient denies any radiation of the pain. Patient denies any paresthesias or weakness. Patient denies any bowel or bladder changes. Patient denies any saddle anesthesia. Exam: Vital signs are stable. Patient is afebrile. Patient is in no acute distress. There is tenderness over the posterior aspect of the left hip and iliac crest. There is no edema or ecchymosis. There is no bony crepitance or step-off. There is good range of motion of the left hip. Range of motion lumbar spine was slightly limited secondary to pain. Strength is 5/5 bilaterally in the lower extremities. There are no sensory deficits noted. Pedal pulses are equal bilaterally. Medical Decision Making: Differential diagnosis includes lumbosacral strain, lumbar fracture, left hip fracture, left hip contusion. X-rays of the left hip will be obtained to assess for fracture. X-rays of the lumbar spine will be obtained to assess for fracture and spondylolisthesis. Patient was given a lidocaine patch here. X-rays of the left hip were obtained. There are 3 views. On my independent interpretation, there is no acute fracture or dislocation. There is no loosening of the hardware. Radiologist also interpreted the x-rays and agrees. X-rays of the lumbar spine were obtained. There are 3 views. On my independent interpretation, there is no acute fracture or spondylolisthesis. There are some degenerative changes noted. Radiologist also interpreted the x-rays and agrees. Patient is feeling better on reevaluation. Patient was instructed to follow-up with his primary care physician in 5 to 7 days. Patient understood and was agreeable with the plan. All questions were answered. Discharge Plan Triage Chief Complaint: Lower Extremity Injury ED Midlevel Provider: Vandana Austin ED Provider: Tom Mayorga Dx/Rx/DC Orders Clinical Impression: Back pain Instructions: ED Back Care Tips Prescriptions: New lidocaine [Lidoderm] 5 % adhesive patch,medicated 1 patch topical DAILY Qty: 15 0RF Rx Instructions: leave on most painful area for up to 12 hrs No Action ferrous sulfate 325 mg (65 mg iron) tablet 325 mg PO BID aspirin [Adult Aspirin Regimen] 81 mg tablet,delayed release (DR/EC) 81 mg PO DAILY oxybutynin chloride 15 mg tablet extended release 24hr 30 mg PO DAILY albuterol sulfate 90 mcg/actuation HFA aerosol inhaler 2 puff inhalation Q6H PRN (Reason: ASTHMA) fluticasone propionate 50 mcg/actuation spray,suspension 1 spray intranasal DAILY omeprazole 40 mg capsule,delayed release(DR/EC) 40 mg PO DAILY furosemide 20 mg tablet 20 mg PO Q OTHER DAY atenolol 50 mg tablet 50 mg PO DAILY ascorbic acid (vitamin C) 500 mg capsule PO melatonin 10 mg capsule 10 mg PO HS PRN nitroglycerin 0.4 mg tablet, sublingual 0.4 mg sublingual Q5M PRN Rx Instructions: do not exceed 3 doses per episode magnesium oxide 400 MG tablet 400 mg PO DAILY allopurinol 300 MG tablet 300 mg PO DAILY Label Comments: GOUT [id number]-fhf-PH-lycopen-lutein 1 EACH tablet 1 ea PO DAILY fenofibrate nanocrystallized 48 MG tablet 48 mg PO DAILY Label Comments: CHOLESTEROL hydrochlorothiazide 12.5 MG capsule 12.5 mg PO DAILY sertraline 100 MG tablet 100 mg PO QHS Primary Care Provider: Ricky Bradley Referrals: Ricky Bradley MD [Primary Care Provider] - Activity Restrictions/Additional Instructions: Take Tylenol every 6 hours and use the lidocaine patches as needed. Follow-up with your primary care doctor. Disposition Disposition: Home, Self Care Discharge Date/Time: 09/11/22 16:54
[2022-09-11] MEDS: Lidocaine 5% Patch 1 PATCH TOPICAL (15:18)
--- NOTE | 2022-09-11 15:25 | RAD_ITS ---
RAD/HIP, UNI W/ Pelvis 2-3 Views IMPRESSION: No acute findings in the pelvis or left hip. Electronically Signed: Mor Milian MD at 16:35 EDT ,
[2022-09-11 16:53] VITALS: BP 141/78; PULSE 68; RESP 16; TEMP 36.6; O2SAT 100
== END 2022-09-11 16:54 | disposition home or self-care (01) ==
PROVIDERS: Emergency Provider Emergency Medicine; PCP Internal Medicine; Visit Provider Emergency Medicine
DX: M54.9 Dorsalgia, unspecified (principal); I69.354 Hemiplegia and hemiparesis following cerebral infarction affecting left non-dominant side; N18.30 Chronic kidney disease, stage 3 unspecified; I25.10 Atherosclerotic heart disease of native coronary artery without angina pectoris; G47.33 Obstructive sleep apnea (adult) (pediatric); Z86.010 Personal history of colon polyps
CPT/HCPCS: 72100; 73502; 99283

== ENCOUNTER 2022-10-29 19:10 | Observation (INO) | payer MEDICARE, OTHER, SELFPAY ==
[2022-10-29 19:11] VITALS: BP 97/77; PULSE 142; RESP 17; TEMP 36.6; O2SAT 96; BMI 34.7
[2022-10-29 19:18] VITALS: BP 114/87
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
--- NOTE | 2022-10-29 19:45 | RAD_ITS ---
STUDY: X-RAY CHEST REASON FOR EXAM: Male, 82 years old. SOB TECHNIQUE: Single AP portable view of the chest. COMPARISON: 09/02/2019. FINDINGS: The lungs are clear and expanded. There is no demonstrated pleural abnormality. Normal size heart. Previous median sternotomy. Normal mediastinum and yancy. Normal visualized pulmonary arteries. Normal visualized aortic arch and descending thoracic aorta. Small hiatal hernia. Normal visualized thoracic spine. Normal visualized ribs, clavicles, and shoulders. There is no demonstrated abnormality of the visualized soft tissue structures of the upper abdomen. RAD/Chest 1 View (Portable) IMPRESSION: No definite acute or significant abnormality seen. No change. Electronically Signed: Damian Morgan MD at 20:20 EDT ,
[2022-10-29] MEDS: 0.9% Normal Saline 1,000 ML 999 ML IV (19:50)
[2022-10-29 19:52] LABS: Absolute Lymphocyte Count 0.42 X10^3/uL (0.83-4.51); Absolute Neutrophil Count 4.3 X10^3/uL (2.0-7.7); Basophil# 0.04 X10^3/uL; Basophil% 0.8 % (0-1); Eosinophil# 0.09 X10^3/uL; Eosinophils% 1.7 % (0-5); Hematocrit 33.1 % (40-54); Hemoglobin 10.4 g/dL (13.0-16.5); Lymphocyte # 0.42 X10^3/ul (0.83-4.51); Mean Corp Hgb Conc 31.4 g/dL (32-36); Mean Corpuscular Hgb 33.2 pg (27.0-32.0); Mean Corpuscular Volume 105.8 fL (80-94); Monocyte# 0.35 X10^3/uL; Monocyte% 6.7 % (0-10); NRBC Flagged by Analyzer 0 % (0-5); Neutrophil # 4.32 X10^3/uL (2.7-7.7); Neutrophil % 82.6 % (47-70); POSITIVE COUNT YES; POSITIVE DIFFERENTIAL YES; POSITIVE MORPHOLOGY YES; Platelet Count 69 K/mm3 (150-450); RBC Distribution Width CV 17.3 % (11.6-14.6); RBC Distribution Width SD 67.1 fl (35.1-43.9); Red Blood Count 3.13 M/mm3 (4.6-6.2); White Blood Count 5.2 K/mm3 (4.4-11.0)
[2022-10-29 19:55] LABS: Differential Indicated SCAN CRITERIA MET
[2022-10-29 20:09] LABS: Anion Gap 6 (5-15); BUN 28 mg/dL (7-18); BUN/Creat Ratio 34.4 RATIO (10-20); Calcium,Total 8.1 mg/dL (8.5-10.1); Chloride 120 mmol/L (98-107); Creatinine, Serum 0.81 mg/dL (0.70-1.30); EST Glomerular Filtration Rate 96 mL/min (>60); Est Glom Filt Rate - Afr Amer 116 mL/min (>60); Estimated Creatinine Clearance 71.35 ml/min; Glucose 70 mg/dL (74-106); Magnesium 1.3 mg/dL (1.6-2.6); Potassium 3.9 mmol/L (3.5-5.1); Sodium Level 145 mmol/L (136-145); Troponin-I HS 12 pg/mL (3.0-78.0)
[2022-10-29 20:37] VITALS: BP 116/70; PULSE 100; RESP 13; O2SAT 100
[2022-10-29 22:00] VITALS: BP 128/95; PULSE 138; RESP 16; O2SAT 98
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
[2022-10-29 23:09] VITALS: BP 112/67; PULSE 96; RESP 18; TEMP 36.6; O2SAT 97
[2022-10-30] VITALS (13 sets, daily range): BP systolic 102–120; BP diastolic 64–94; PULSE 67–138; RESP 16–18; TEMP 36.5–36.9; O2SAT 88–98; BMI 32.3; BMI 33.9
[2022-10-30] MEDS: dilTIAZem CD 120 MG Capsule PO ×2 (01:18→09:09)
[2022-10-30 02:19] LABS: Troponin-I HS 21 pg/mL (3.0-78.0)
[2022-10-30 02:33] LABS: Absolute Lymphocyte Count 0.29 X10^3/uL (0.83-4.51); Absolute Neutrophil Count 2.5 X10^3/uL (2.0-7.7); Basophil# 0.02 X10^3/uL; Basophil% 0.6 % (0-1); Eosinophil# 0.06 X10^3/uL; Eosinophils% 1.9 % (0-5); Hematocrit 30.1 % (40-54); Hemoglobin 9.7 g/dL (13.0-16.5); Lymphocyte # 0.29 X10^3/ul (0.83-4.51); Lymphocyte % 9.2 % (19-41); Mean Corp Hgb Conc 32.2 g/dL (32-36); Mean Corpuscular Hgb 34.2 pg (27.0-32.0); Mean Platelet Vol. 11.5 fl (6.2-12.0); Monocyte# 0.24 X10^3/uL; Monocyte% 7.6 % (0-10); NRBC Flagged by Analyzer 0 % (0-5); Neutrophil # 2.53 X10^3/uL (2.7-7.7); Neutrophil % 80.7 % (47-70); POSITIVE COUNT YES; POSITIVE DIFFERENTIAL YES; POSITIVE MORPHOLOGY YES; Platelet Count 56 K/mm3 (150-450); RBC Distribution Width CV 17.4 % (11.6-14.6); RBC Distribution Width SD 68.4 fl (35.1-43.9); Red Blood Count 2.84 M/mm3 (4.6-6.2); White Blood Count 3.1 K/mm3 (4.4-11.0)
[2022-10-30 02:34] LABS: Differential Indicated SCAN CRITERIA MET
[2022-10-30 03:13] LABS: Troponin-I HS 26 pg/mL (3.0-78.0)
[2022-10-30 03:30] LABS: ALB/GLOB Ratio 0.8 RATIO (0.9-2.4); AST(SGOT) 53 U/L (15-37); Alanine Aminotransfer ALT/SGPT 37 U/L (16-61); Albumin, Serum 2.6 g/dL (3.2-5.0); Alkaline Phosphatase 191 U/L (45-117); Anion Gap 3 (5-15); BUN 32 mg/dL (7-18); BUN/Creat Ratio 31.7 RATIO (10-20); Chloride 114 mmol/L (98-107); Creatinine, Serum 1.01 mg/dL (0.70-1.30); EST Glomerular Filtration Rate 75 mL/min (>60); Est Glom Filt Rate - Afr Amer 91 mL/min (>60); Estimated Creatinine Clearance 57.22 ml/min; Globulin 3.2 g/dL (2.2-4.2); Glucose 111 mg/dL (74-106); Magnesium 1.9 mg/dL (1.6-2.6); Potassium 4.3 mmol/L (3.5-5.1); Protein, Total 5.8 g/dL (6.4-8.2); Sodium Level 141 mmol/L (136-145); Thyroid Stim Hormone (TSH) 2.78 uIU/mL (0.358-3.74)
[2022-10-30 03:33] LABS: Anisocytosis 1+; Differential Comment SCANNED; Macrocytosis 1+; Platelet Estimate MKD DEC (ADEQ)
--- NOTE | 2022-10-30 05:55 | ECHOCS_ITS ---
Reason For Study: ATRIAL FIB-FLUTTER Procedure This was a 2D Doppler, Color Flow transthoracic echocardiogram. The study was technically difficult. Exam performed portable in patient room. Left Ventricle Normal LV size. Mild concentric left ventricular hypertrophy. The left ventricular ejection fraction is 60 %. Diastolic function is indeterminate. Right Ventricle Severely dilated right ventricle. Severe global right ventricular systolic dysfunction. Atria The left atrium is severely enlarged. The right atrium is severely enlarged. Mitral Valve Severe mitral annular calcification. Mild (1+) mitral valve insufficiency. Tricuspid Valve Mild tricuspid valve insufficiency. Right ventricular systolic pressure estimated to be 44 mmHg. Aortic Valve Bioprosthetic aortic valve. Bioprosthetic aortic valve mean gradient 14 mmHg. Pulmonic Valve The pulmonic valve is not well visualized. Great Vessels The aortic root is not well visualized. Pericardium/Pleural No pericardial effusion. Medication Diluted definity 2ml given slow IV push to enhance endocardial definition. MMode/2D Measurements & Calculations LVIDd: 4.1 cm IVSd: 1.3 cm LVOT diam: 2.0 cm LVIDs: 2.8 cm LVPWd: 1.3 cm RVDd: 4.5 cm FS: 32.1 % LVOT area: 3.0 cm2 Ao root diam: 3.3 cm LAV(MOD-bp): 80.9 ml LVAd ap4: 32.3 cm2 LAV(MOD-bp) Indexed: 35.8 ml/m2 LVLd ap4: 7.5 cm LAV(MOD-sp2): 81.2 ml EDV(MOD-sp4): 113.8 ml LAV(MOD-sp4): 78.3 ml EDV(sp4-el): 118.0 ml LVAs ap4: 17.8 cm2 LVLs ap4: 6.5 cm ESV(MOD-sp4): 39.7 ml ESV(sp4-el): 41.6 ml EF(MOD-sp4): 65.1 % EF(sp4-el): 64.8 % SV(MOD-sp4): 74.1 ml SV(sp4-el): 76.4 ml LA A4 area: 25.2 cm2 LA dimension(2D): 4.4 cm RA A4 area: 20.7 cm2 Time Measurements MV dec time: 0.31 sec Doppler Measurements & Calculations MV E max will: 168.1 cm/sec Lat Peak E' Will: 10.4 cm/sec Med Peak E' Will: 8.0 cm/sec MV A max will: 98.0 cm/sec E/E' lat: 16.2 E/E' med: 21.0 MV E/A: 1.7 MV P1/2t max will: 172.9 cm/sec Ao V2 max: 250.5 cm/sec LV V1 max: 112.1 cm/sec MV P1/2t: 78.7 msec Ao max P.1 mmHg LV V1 max P.0 mmHg MV dec slope: 643.7 cm/sec2 Ao V2 mean: 177.9 cm/sec LV V1 mean P.8 mmHg MVA(P1/2t): 2.8 cm2 Ao mean P.1 mmHg LV V1 mean: 78.5 cm/sec Ao V2 VTI: 51.0 cm LV V1 VTI: 22.5 cm AV (velocity ratio): 0.44 PATRIC(I,D): 1.3 cm2 PATRIC(V,D): 1.4 cm2 SV(LVOT): 68.4 ml PA V2 max: 102.2 cm/sec TR max will: 268.8 cm/sec TR max P.9 mmHg ECHO/Echo Complete W/ Contrast Interpretation Summary Mild concentric left ventricular hypertrophy. The left ventricular ejection fraction is 60 %. Diastolic function is indeterminate. Severely dilated right ventricle. Severe global right ventricular systolic dysfunction. The left atrium is severely enlarged. Severe mitral annular calcification. Mild tricuspid valve insufficiency. The right atrium is severely enlarged. Right ventricular systolic pressure estimated to be 44 mmHg. Bioprosthetic aortic valve mean gradient 14 mmHg The study was technically difficult. Ordering Physician: Joan Menjivar Referring Physician: BEATRIZ DA SILVA Performed By: Zabrina Motley RDCS
[2022-10-30] MEDS: Budesonide Respules 0.5 MG/2 ML AMPUL.NEB. INHALATION ×2 (07:23→20:25)
--- NOTE | 2022-10-30 07:41 | PCM.PN.HOSP ---
Reason for Visit Reason for Visit: Diagnoses Unspecified atrial flutter (10/29/22) Subjective Subjective Patient is an 82-year-old gentleman with multiple comorbidities admitted following a fall. Patient was also found to be tachycardic on admission and assessment of A-fib with RVR made admitted to monitored bed for further management Objective Data Objective Data Vital Signs: Vital Signs Temp Pulse Resp BP Pulse Ox O2 Del Method O2 Flow Rate 98.1 F 95 18 102/64 93 Room Air 1 10/30/22 05:22 10/30/22 05:22 10/30/22 05:22 10/30/22 05:22 10/30/22 05:22 10/30/22 05:22 10/29/22 20:37 Oxygen Flow Rate (L/min) 1 Oxygen Delivery Method Room Air Weight: 102.3 kg Body Mass Index (BMI) 32.3 Intake & Output: Intake and Output for Last 24 Hours 10/28/22 10/29/22 10/30/22 23:59 23:59 23:59 Intake Total 1104 / 1104 Output Total 300 / 300 Balance 1104 / 1104 -300 / -300 Lab / Micro Data 10/30/22 02:20 10/30/22 02:20 Labs: Laboratory Results - last 24 hr 10/29/22 19:20: WBC 5.2, RBC 3.13 L, Hgb 10.4 L, Hct 33.1 L, MCV 105.8 H, MCH 33.2 H, MCHC 31.4 L, RDW Std Deviation 67.1 H, RDW Coeff of Raina 17.3 H, Plt Count 69 L, MPV 12.0, Immature Gran % (Auto) 0.200, Neut % (Auto) 82.6 H, Lymph % (Auto) 8.0 L, [place] % (Auto) 6.7, Eos % (Auto) 1.7, Baso % (Auto) 0.8, Absolute Neuts (auto) 4.3, Absolute Lymphs (auto) 0.42 L, Nucleated RBC % 0, Differential Comment , Sodium 145, Potassium 3.9, Chloride 120 H, Carbon Dioxide 19.0 L, Anion Gap 6, BUN 28 H, Creatinine 0.81, Estim Creat Clear Calc 71.35, Est GFR (MDRD) Af Amer 116, Est GFR (MDRD) Non-Af 96, BUN/Creatinine Ratio 34.4 H, Glucose 70 L, Calcium 8.1 L, Magnesium 1.3 L, Troponin I High Sens 12 10/30/22 01:17: Troponin I High Sens 21 10/30/22 02:20: WBC 3.1 L, RBC 2.84 L, Hgb 9.7 L, Hct 30.1 L, MCV 106.0 H, MCH 34.2 H, MCHC 32.2, RDW Std Deviation 68.4 H, RDW Coeff of Raina 17.4 H, Plt Count 56 L, MPV 11.5, Immature Gran % (Auto) 0.000, Neut % (Auto) 80.7 H, Lymph % (Auto) 9.2 L, [place] % (Auto) 7.6, Eos % (Auto) 1.9, Baso % (Auto) 0.6, Absolute Neuts (auto) 2.5, Absolute Lymphs (auto) 0.29 L, Nucleated RBC % 0, Differential Comment SCANNED, Diff Path Review August, Platelet Estimate MKD DEC, Anisocytosis 1+, Macrocytosis 1+, Sodium 141, Potassium 4.3, Chloride 114 H, Carbon Dioxide 24.0, Anion Gap 3 L, BUN 32 H, Creatinine 1.01, Estim Creat Clear Calc 57.22, Est GFR (MDRD) Af Amer 91, Est GFR (MDRD) Non-Af 75, BUN/Creatinine Ratio 31.7 H, Glucose 111 H, Calcium 10.0, Magnesium 1.9, Total Bilirubin 0.60, AST 53 H, ALT 37, Alkaline Phosphatase 191 H, Troponin I High Sens 26, Total Protein 5.8 L, Albumin 2.6 L, Globulin 3.2, Albumin/Globulin Ratio 0.8 L, TSH 2.78 Radiography Diagnostic Testing: Radiology Impression Chest X-Ray 10/29/22 19:45 IMPRESSION: No definite acute or significant abnormality seen. No change. Electronically Signed: Damian Morgan MD at 20:20 EDT , Physical Exam Narrative GENERAL: cooperative HEENT: Atraumatic; normocephalic EYES; Anicteric, Normal Conjunctiva NECK; supple, normal thyroid, RESPIRATORY: Diminished to auscultation CARDIOVASCULAR: Regular S1 S2, GI: soft, normoactive bowel sounds, : No Renal angle tenderness; EXTREMITIES: Bipedal edema, no clubbing, MUSCULOSKELETAL: no muscle wasting NEURO: Awake; no lateralizing signs. SKIN: No Rash PSYCH; Flat affect Assessment & Plan Assessment/Plan (1) Atrial flutter with rapid ventricular response: PLAN: Plan Patient is an 82-year-old gentleman with multiple comorbidities admitted following a fall. Patient was also found to be tachycardic on admission and assessment of A-fib with RVR made admitted to monitored bed for further management 1. Paroxysmal A-fib with RVR ? Patient did receive Cardizem bolus admitted to monitored bed p.o. Cardizem initiated 2. Physical deconditioning - Requested for PT OT eval and delinquency prevention social worker to assist with discharge planning 3. Hypomagnesemia -Corrected for protocol 4. Valvular heart disease ? With previous history of aortic valve replacement with bioprosthetic valve 5. Anemia - Secondary to chronic disorder monitoring H&H and transfuse if patient becomes symptomatic or hemoglobin falls below 7. Patient is on supplement with cyanocobalamin as well as iron sulfate 6. Gout ? Patient is on allopurinol 30 mg daily did continue 7. GERD ? On PPI 8. 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 Patient is on rifaximin did continue 9. Dyslipidemia ? Patient is on fibrate held on admission 10. Class I obesity with BMI of 32.4 ? Complicating care weight loss advised 11. Mild intermittent asthma ? Did continue patient bronchodilator treatment regimen 12. Recent diagnosis of liver cancer ? Per patient treated with laser and radiation therapy. Patient to follow-up with primary oncologist for subsequent care as outpatient 13. Thrombocytopenia ? Secondary to patient chronic liver disease we will continue with monitoring 14. Depression with anxiety ? Patient is on sertraline did continue 15. Allergic rhinitis ? Patient is on fluticasone did continue 16. Obstructive sleep apnea ? On BiPAP at bedtime did continue with home setting 17. GERD ? On PPI 18. DVT prophylaxis ? SCDs. Time spent in the patient's overall evaluation,decision-making process, review of diagnostic data, adjustment of management, discussion with other providers, nursing nursing and ancillary staff involved in patient's care documentation, 55 Minutes Charges/Coding Visit Charges Inpatient E&M: 12153 Subs Hosp L3
[2022-10-30] MEDS: Tolterodine Tartrate 4 MG CAP.SA PO (09:09)
[2022-10-30] MEDS: Magnesium Chloride 64 MG Delay Rel.Tablet 128 MG PO (09:09)
[2022-10-30] MEDS: Fluticasone 0.05% 1 SPRAY NASAL.SRY NASAL (09:09)
[2022-10-30] MEDS: Ferrous Sulfate 325 MG Tablet PO ×2 (09:09→17:26)
[2022-10-30] MEDS: Pantoprazole Sodium 40 MG Tablet PO (09:09)
[2022-10-30] MEDS: Allopurinol 300 MG Tablet PO (09:09)
[2022-10-30] MEDS: 0.9% Saline Lock 10 ML Syringe IV (09:13)
[2022-10-30] MEDS: Aspirin E.C. 81 MG Tablet PO (09:36)
[2022-10-30] MEDS: Cyanocobalamin 500 MCG Tablet 2500 MCG PO (09:37)
[2022-10-30] MEDS: rifAXIMin 550 MG Tablet PO ×2 (09:37→22:29)
--- NOTE | 2022-10-30 12:33 | EKG12_ITS ---
Test Reason : A-fib,flutter Blood Pressure : / mmHG Vent. Rate : 099 BPM Atrial Rate : 099 BPM P-R Int : 250 ms QRS Dur : 134 ms QT Int : 350 ms P-R-T Axes : 000 -60 -08 degrees QTc Int : 449 ms Atrial flutter with variable block Left axis deviation Right bundle branch block Abnormal ECG When compared with ECG of 29-OCT-2022 19:15, MANUAL COMPARISON REQUIRED, DATA IS UNCONFIRMED Confirmed by TADEO NUNEZ, MENDEZ ([id number]), editor city GEORGE LOPEZ ([id number]) on 11/08/2022 7:35:54 AM Referred By: Donny Confirmed By:MENDEZ PIEDRA MD
--- NOTE | 2022-10-30 13:16 | PCM.CONS.C ---
Assessment & Plan Assessment/Plan (1) Aortic valve replaced: (2) Atrial flutter with rapid ventricular response: (3) Nonobstructive atherosclerosis of coronary artery: (4) History of aortic valve replacement with bioprosthetic valve: (5) Essential (primary) hypertension: (6) Hyperlipemia: (7) Right bundle branch block (RBBB): (8) CKD (chronic kidney disease), stage III: (9) Thrombocytopenia: (10) Anemia: PLAN: Plan 82-year-old patient Admitted through the ER at [facility] following a fall Noted patient had a new onset of A-fib with RVR. Patient with known valvular heart disease with a previous history of aortic valve replacement using bioprosthetic valve History of anemia and thrombocytopenia with a platelet count around 65 when admitted Also has nonalcoholic liver disease with liver cirrhosis. Dyslipidemia On review of the monitoring and evaluation advisor showed underlying atrial fibrillation with RVR also has a right bundle branch block which is old. Cardiac care plan recommendations; I reviewed the current medication added beta-isamar metoprolol 25 mg twice daily in addition to Cardizem CD 120 mg For control of the ventricular rate 2. High risk patient for anticoagulation due to the nonalcoholic liver cirrhosis and thrombocytopenia with anemia With the risk of bleeding in 82-year-old patient Hemoglobin 9.7 hematocrit 30.1 and a platelet count today is 56. Also noted abnormal LFT with AST of 53 alkaline phos 191. From cardiac standpoint will evaluate by echocardiogram High risk patient for anticoagulation secondary to thrombocytopenia and liver cirrhosis Would recommend consideration of protection device/Watchman As he is a high risk for stroke based on CHADS-Vasc score Would recommend patient to follow-up with the cardiology team at [facility] for continuation of cardiac care. HPI Consult Data Date of Consult: 10/30/22 HPI Narrative Reason for Consultation: A-fib with RVR admitted following a fall HPI Narrative: FRANCISCO MACK, is a 82 M who presents [facility] Medical History (Updated 10/29/22 @ 22:[address] Joan Menjivar MD) Anemia in chronic kidney disease Anemia of chronic disease Aortic valve disorder Asthma Body mass index (BMI) 40.0-44.9, adult Chronic acquired lymphedema CKD (chronic kidney disease), stage III Depression Essential (primary) hypertension GERD (gastroesophageal reflux disease) Gout History of cerebrovascular accident History of splenomegaly Hyperlipemia Liver cancer Morbid obesity Multiple lung nodules Non-alcoholic cirrhosis Nonobstructive atherosclerosis of coronary artery Nonrheumatic aortic (valve) stenosis OAB (overactive bladder) Obesity Obesity (BMI 30-39.9) DEMI treated with BiPAP Osteoarthritis PCK (polycystic kidney disease) Peripheral neuropathy Polycystic kidney disease 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) Right bundle branch block (RBBB) Splenomegaly Thrombocytopenia Urge incontinence Home Medications allopurinol 300 mg tablet 300 mg PO DAILY gout 04/12/16 [History Last Taken 04/07/19] fenofibrate nanocrystallized 48 mg tablet 48 mg PO DAILY cholesterol 04/12/16 [History Last Taken 04/07/19] magnesium oxide 400 mg (241.3 mg magnesium) tablet 400 mg PO DAILY supplement 04/12/16 [History Last Taken 04/07/19] twtaakpa-biq-rjfcg acid 0.4 mg-lycopene 300 mcg-lutein 250 mcg tablet 1 ea PO DAILY vitamin 04/12/16 [History Last Taken 04/07/19] hydrochlorothiazide 12.5 mg capsule 12.5 mg PO DAILY BP/water pill 09/02/19 [History Last Taken Unknown] sertraline 100 mg tablet 50 mg PO QHS depression 09/05/19 [History Last Taken Unknown] aspirin 81 mg tablet,delayed release (Adult Aspirin Regimen) 81 mg PO DAILY 11/10/20 [History Last Taken Unknown] ferrous sulfate 325 mg (65 mg iron) tablet 325 mg PO BID 11/10/20 [History Last Taken Unknown] albuterol sulfate 90 mcg/actuation aerosol inhaler 2 puff inhalation Q6H PRN ASTHMA 05/25/21 [History Last Taken Unknown] fluticasone propionate 50 mcg/actuation nasal spray,suspension 1 spray intranasal DAILY 05/25/21 [History Last Taken Unknown] omeprazole 40 mg capsule,delayed release 40 mg PO DAILY 05/25/21 [History Last Taken Unknown] oxybutynin chloride 15 mg tablet,extended release 24 hr 30 mg PO DAILY 05/25/21 [History Last Taken Unknown] ascorbic acid (vitamin C) 500 mg capsule 500 mg PO DAILY 05/17/22 [History Last Taken Unknown] atenolol 50 mg tablet 50 mg PO DAILY 05/17/22 [History Last Taken Unknown] furosemide 20 mg tablet 20 mg PO Q OTHER DAY 05/17/22 [History Last Taken Unknown] melatonin 10 mg capsule 10 mg PO HS PRN sleep 05/17/22 [History Last Taken Unknown] nitroglycerin 0.4 mg sublingual tablet 0.4 mg sublingual Q5M PRN chest pain 05/17/22 [History Last Taken Unknown] lidocaine 5 % topical patch (Lidoderm) 1 patch topical DAILY #15 ea 09/11/22 [Rx Last Taken Unknown] cyanocobalamin (vitamin B-12) 5,000 mcg capsule 2,500 mcg PO DAILY 10/29/22 [History Last Taken Unknown] prochlorperazine maleate 10 mg tablet 10 mg PO Q8H PRN nausea and vomiting 10/29/22 [History Last Taken Unknown] rifaximin 550 mg tablet (Xifaxan) 550 mg PO BID 10/29/22 [History Last Taken Unknown] Allergy/AdvReac Type Severity Reaction Status Date / Time hydrocodone [From Vicodin] Allergy Other Verified 10/29/22 19:14 strawberry Allergy Hives Verified 10/29/22 19:14 venom-honey bee Allergy Anaphylaxis Verified 10/29/22 19:14 [bee venom (honey bee)] adhesive tape AdvReac Rash Verified 10/29/22 19:14 atorvastatin AdvReac PT UNSURE Verified 10/29/22 19:14 OF REACTION montelukast AdvReac PT UNSURE Verified 10/29/22 19:14 OF REACTION Family History Father CAD (coronary artery disease) Brother Diabetes Mother Heart disease Surgical History History of aortic valve replacement with bioprosthetic valve (01/18/11) History of hip surgery (08/2019) History of knee replacement History of left heart catheterization (01/05/11) History of tonsillectomy History of total left hip arthroplasty History of total left hip replacement History of umbilical hernia repair Social History (Updated 10/29/22 @ 22:[address] Joan Menjivar MD) household members: none Smoking Status: Never smoker alcohol intake: never substance use type: does not use ROS ROS Narrative 10 point review of system is unremarkable Apart from the current presentation patient has multiple medical comorbidities and admitted following a fall Physical Exam Cardio Cardio Narrative: Seen and evaluated today at bedside And discussed cardiac care plan with the nursing staff. Review of the monitoring and evaluation advisor showed underlying A-fib with RVR Cardiovascular exam S1-S2 is irregular No systolic or diastolic murmur Chest exam clear to auscultation bilateral Examination lower extremity no lower extremity edema noted Risk Stratification Risk Stratification Applicable: No Objective Data Vital Signs: Vital Signs Temp Pulse Resp BP Pulse Ox O2 Del Method O2 Flow Rate 98 F 70 16 106/73 94 Nasal Cannula 3 10/30/22 08:56 10/30/22 08:56 10/30/22 08:56 10/30/22 08:56 10/30/22 08:56 10/30/22 08:56 10/30/22 08:56 Oxygen Flow Rate (L/min) 3 Oxygen Delivery Method Nasal Cannula Weight: 225 lb 8.526 oz Body Mass Index (BMI) 32.3 Intake & Output: Intake and Output for Last 24 Hours 10/28/22 10/29/22 10/30/22 23:59 23:59 23:59 Intake Total 1104 / 1104 380 / 380 Output Total 650 / 650 Balance 1104 / 1104 -270 / -270 Lab / Micro Data 10/30/22 02:20 10/30/22 02:20 Labs: Laboratory Results - last 24 hr 10/29/22 19:20: WBC 5.2, RBC 3.13 L, Hgb 10.4 L, Hct 33.1 L, MCV 105.8 H, MCH 33.2 H, MCHC 31.4 L, RDW Std Deviation 67.1 H, RDW Coeff of Raina 17.3 H, Plt Count 69 L, MPV 12.0, Immature Gran % (Auto) 0.200, Neut % (Auto) 82.6 H, Lymph % (Auto) 8.0 L, [place] % (Auto) 6.7, Eos % (Auto) 1.7, Baso % (Auto) 0.8, Absolute Neuts (auto) 4.3, Absolute Lymphs (auto) 0.42 L, Nucleated RBC % 0, Differential Comment , Sodium 145, Potassium 3.9, Chloride 120 H, Carbon Dioxide 19.0 L, Anion Gap 6, BUN 28 H, Creatinine 0.81, Estim Creat Clear Calc 71.35, Est GFR (MDRD) Af Amer 116, Est GFR (MDRD) Non-Af 96, BUN/Creatinine Ratio 34.4 H, Glucose 70 L, Calcium 8.1 L, Magnesium 1.3 L, Troponin I High Sens 12 10/30/22 01:17: Troponin I High Sens 21 10/30/22 02:20: WBC 3.1 L, RBC 2.84 L, Hgb 9.7 L, Hct 30.1 L, MCV 106.0 H, MCH 34.2 H, MCHC 32.2, RDW Std Deviation 68.4 H, RDW Coeff of Raina 17.4 H, Plt Count 56 L, MPV 11.5, Immature Gran % (Auto) 0.000, Neut % (Auto) 80.7 H, Lymph % (Auto) 9.2 L, [place] % (Auto) 7.6, Eos % (Auto) 1.9, Baso % (Auto) 0.6, Absolute Neuts (auto) 2.5, Absolute Lymphs (auto) 0.29 L, Nucleated RBC % 0, Differential Comment SCANNED, Diff Path Review August, Platelet Estimate MKD DEC, Anisocytosis 1+, Macrocytosis 1+, Sodium 141, Potassium 4.3, Chloride 114 H, Carbon Dioxide 24.0, Anion Gap 3 L, BUN 32 H, Creatinine 1.01, Estim Creat Clear Calc 57.22, Est GFR (MDRD) Af Amer 91, Est GFR (MDRD) Non-Af 75, BUN/Creatinine Ratio 31.7 H, Glucose 111 H, Calcium 10.0, Magnesium 1.9, Total Bilirubin 0.60, AST 53 H, ALT 37, Alkaline Phosphatase 191 H, Troponin I High Sens 26, Total Protein 5.8 L, Albumin 2.6 L, Globulin 3.2, Albumin/Globulin Ratio 0.8 L, TSH 2.78 Cardiology Labs/Tests 10/29/22 19:20: WBC 5.2, RBC 3.13 L, Hgb 10.4 L, Hct 33.1 L, MCV 105.8 H, MCH 33.2 H, MCHC 31.4 L, Plt Count 69 L, MPV 12.0, Immature Gran % (Auto) 0.200, Neut % (Auto) 82.6 H, Lymph % (Auto) 8.0 L, [place] % (Auto) 6.7, Eos % (Auto) 1.7, Baso % (Auto) 0.8, Absolute Neuts (auto) 4.3, Nucleated RBC % 0, Sodium 145, Potassium 3.9, Chloride 120 H, Carbon Dioxide 19.0 L, Anion Gap 6, BUN 28 H, Creatinine 0.81, Est GFR (MDRD) Af Amer 116, Est GFR (MDRD) Non-Af 96, BUN/Creatinine Ratio 34.4 H, Glucose 70 L, Calcium 8.1 L, Magnesium 1.3 L 10/30/22 02:20: WBC 3.1 L, RBC 2.84 L, Hgb 9.7 L, Hct 30.1 L, MCV 106.0 H, MCH 34.2 H, MCHC 32.2, Plt Count 56 L, MPV 11.5, Immature Gran % (Auto) 0.000, Neut % (Auto) 80.7 H, Lymph % (Auto) 9.2 L, [place] % (Auto) 7.6, Eos % (Auto) 1.9, Baso % (Auto) 0.6, Absolute Neuts (auto) 2.5, Nucleated RBC % 0, Sodium 141, Potassium 4.3, Chloride 114 H, Carbon Dioxide 24.0, Anion Gap 3 L, BUN 32 H, Creatinine 1.01, Est GFR (MDRD) Af Amer 91, Est GFR (MDRD) Non-Af 75, BUN/Creatinine Ratio 31.7 H, Glucose 111 H, Calcium 10.0, Magnesium 1.9, Total Bilirubin 0.60 Rhythm: EKG: ECHO: Stress Test: Cardiac Cath: PCI: CT Surgery: Holter monitor: EPS: PPM: CXR: Chest CT Scan: Radiography Diagnostic Testing: Radiology Impression Chest X-Ray 10/29/22 19:45 IMPRESSION: No definite acute or significant abnormality seen. No change. Electronically Signed: Damian Morgan MD at 20:20 EDT ,
[2022-10-30] MEDS: Metoprolol Tartrate 25 MG Tablet PO ×2 (13:43→22:34)
[2022-10-30] MEDS: Sertraline 100 MG Tablet PO (22:29)
[2022-10-31] VITALS (7 sets, daily range): BP systolic 89–122; BP diastolic 60–90; PULSE 68–75; RESP 14–18; TEMP 36.2–36.8; O2SAT 93–98; BMI 33.5
[2022-10-31 05:10] LABS: Absolute Lymphocyte Count 0.41 X10^3/uL (0.83-4.51); Absolute Neutrophil Count 4.2 X10^3/uL (2.0-7.7); Basophil# 0.04 X10^3/uL; Basophil% 0.8 % (0-1); Eosinophil# 0.13 X10^3/uL; Eosinophils% 2.5 % (0-5); Hematocrit 33.1 % (40-54); Hemoglobin 10.3 g/dL (13.0-16.5); Lymphocyte # 0.41 X10^3/ul (0.83-4.51); Mean Corp Hgb Conc 31.1 g/dL (32-36); Mean Corpuscular Hgb 33.1 pg (27.0-32.0); Mean Corpuscular Volume 106.4 fL (80-94); Mean Platelet Vol. 11.8 fl (6.2-12.0); Monocyte# 0.36 X10^3/uL; NRBC Flagged by Analyzer 0 % (0-5); Neutrophil # 4.19 X10^3/uL (2.7-7.7); Neutrophil % 81.3 % (47-70); POSITIVE COUNT YES; POSITIVE DIFFERENTIAL YES; POSITIVE MORPHOLOGY YES; Platelet Count 67 K/mm3 (150-450); RBC Distribution Width CV 17.3 % (11.6-14.6); RBC Distribution Width SD 68.6 fl (35.1-43.9); Red Blood Count 3.11 M/mm3 (4.6-6.2); White Blood Count 5.2 K/mm3 (4.4-11.0)
[2022-10-31 05:35] LABS: Differential Indicated SCAN CRITERIA MET
[2022-10-31 05:39] LABS: ALB/GLOB Ratio 0.8 RATIO (0.9-2.4); AST(SGOT) 44 U/L (15-37); Alanine Aminotransfer ALT/SGPT 33 U/L (16-61); Albumin, Serum 2.6 g/dL (3.2-5.0); Alkaline Phosphatase 182 U/L (45-117); Anion Gap 1 (5-15); BUN 31 mg/dL (7-18); BUN/Creat Ratio 30.4 RATIO (10-20); Calcium,Total 10.4 mg/dL (8.5-10.1); Chloride 114 mmol/L (98-107); Creatinine, Serum 1.02 mg/dL (0.70-1.30); EST Glomerular Filtration Rate 74 mL/min (>60); Est Glom Filt Rate - Afr Amer 90 mL/min (>60); Estimated Creatinine Clearance 56.66 ml/min; Globulin 3.1 g/dL (2.2-4.2); Glucose 97 mg/dL (74-106); Magnesium 1.7 mg/dL (1.6-2.6); Phosphorus 2.1 mg/dL (2.5-4.9); Potassium 4.6 mmol/L (3.5-5.1); Protein, Total 5.7 g/dL (6.4-8.2); Sodium Level 140 mmol/L (136-145)
[2022-10-31 05:41] LABS: Anisocytosis 1+; Differential Comment SCANNED; Platelet Estimate MOD DEC (ADEQ); Stomatocyte 1+
[2022-10-31] MEDS: Budesonide Respules 0.5 MG/2 ML AMPUL.NEB. INHALATION (07:17)
[2022-10-31] MEDS: Fluticasone 0.05% 1 SPRAY NASAL.SRY NASAL (08:49)
[2022-10-31] MEDS: Pantoprazole Sodium 40 MG Tablet PO (08:49)
[2022-10-31] MEDS: rifAXIMin 550 MG Tablet PO (08:49)
[2022-10-31] MEDS: dilTIAZem CD 120 MG Capsule PO (08:49)
[2022-10-31] MEDS: Ferrous Sulfate 325 MG Tablet PO ×2 (08:49→16:46)
[2022-10-31] MEDS: Allopurinol 300 MG Tablet PO (08:49)
[2022-10-31] MEDS: Magnesium Chloride 64 MG Delay Rel.Tablet 128 MG PO (08:49)
[2022-10-31] MEDS: Tolterodine Tartrate 4 MG CAP.SA PO (08:49)
[2022-10-31] MEDS: Aspirin E.C. 81 MG Tablet PO (08:49)
[2022-10-31] MEDS: 0.9% Saline Lock 10 ML Syringe IV (08:50)
[2022-10-31] MEDS: Metoprolol Tartrate 25 MG Tablet PO (09:12)
--- NOTE | 2022-10-31 10:15 | CASEMGMT ---
PAYAL RAMIREZ NOTE: Intro role of CM to patient and [facility] form explained re: Observation status for treatment of paroxysmal A-Flutter w/rapid ventricular response.? Explained hospitalization will be paid per his insurance policy for Outpatient billing?and condition will continue to be evaluated for Inpt necessity. Also let pt know that [facility] sends paper in the billing packet with their phone number if questions arise. Discussed Pharmacy section of P[employer] form and self administered medication guideline.? Pt verbalizes understanding and does not have further questions. ?Form signed, copy made and placed in chart, and original given to pt. David BROWNN PAYAL CM
--- NOTE | 2022-10-31 14:59 | CASEMGMT ---
Addendum entered by Marisol Jones 10/31/22 16:17: RN CM received call back from [facility] and they are able to accept the patient with planned start of care for Monday. RN CM updated the patient and discharge plan. Patient had no further questions or concerns at this time. Original Note: RN CM reviewed progress with therapy and recommending HHC. RN CM in to patient's room to discuss HHC. A list of [facility] providers including quality and resource use data and consistent with the patient?s preferred geographical region, medical needs, and insurance network were provided from the [facility] Guide. Patient would like RN CM to speak with daughter. RN CM called daughter Ingris to discuss needs at discharge. RN CM reviewed progress with therapy and HHC recommendations, daughter is agreeable to [facility]. RN CM in to patient's room to updated regarding conversation with daughter. Patient agreeable to C, after reviewing list, would prefer [facility]. RN CM called and made referral to [facility], awaiting acceptance. CM will continue to follow this patient and plan for a safe discharge.
--- NOTE | 2022-10-31 15:21 | CHAPLAIN ---
Type of Pastoral Visit _x__ Initial Visit ___ Follow-up Visit ___ On-call Visit ___ General Patient Visit ___ Spiritual Assessment ___ Family Conference ___ Bereavement ___ Rapid Response ___ Code Blue ___ Other (describe below) Pastoral Care Referral From _x__ Patient ___ Family ___ Nurse ___ Physician ___ Corporate Quality Manager ___ Log Marker ___ Other (describe below) Sacrament/Intervention _x__ Active listening ___ Anointing ___ Congregation ___ Bereavement ___ Communion _x__ Vero exploration ___ _x__ Life review _x__ Prayer ___ Reconciliation ___ Sacrament of Sick _x__ Supportive presence ___ Wedding ___ Other (describe below) Pastoral Comments patient states he is being discharged and feeling much better now; pt does give much life review of work and career changes; pt is now and discusses how he is coping with life in this season; pt has long relationship in a religion and explains recent developments with this religion; lots of time to interact and listen, evaluating coping with grief and loss; pt is welcoming of spiritual care support and prayer; pt considers that his religion is his family and he finds great help there and with friends
--- NOTE | 2022-10-31 16:37 | DS.PCM_ITS ---
Providers Date of Admission: 10/29/22 Date of Discharge: 10/31/22 Primary Care Physician: Dr. Ricky Bradley MD Consultations 10/30/22 00:14 Consult: Cardiology Routine Consulting Provider: Topher Piña Reason for Consult: New onset PAF/Flutter RVR EMERGENT Consult: No MD Notified: Yes Date Notified: 10/29/22 Time Notified: 22:52 Method of Notification: ED Physician Initiated Reason For Visit: PAF/FLUTTER W/RVR Diagnosis Discharge Diagnosis (1) Aortic valve replaced: Status: Acute Code(s): Z95.2 - Presence of prosthetic heart valve (2) Atrial flutter with rapid ventricular response: Status: Acute Code(s): I48.92 - Unspecified atrial flutter (3) Nonobstructive atherosclerosis of coronary artery: Status: Chronic Code(s): I25.10 - Atherosclerotic heart disease of [place] coronary artery without angina pectoris (4) History of aortic valve replacement with bioprosthetic valve: Status: Chronic Code(s): Z95.3 - Presence of xenogenic heart valve (5) Essential (primary) hypertension: Status: Chronic Code(s): I10 - Essential (primary) hypertension (6) Hyperlipemia: Status: Chronic Code(s): E78.5 - Hyperlipidemia, unspecified (7) Right bundle branch block (RBBB): Status: Chronic Code(s): I45.10 - Unspecified right bundle-branch block (8) CKD (chronic kidney disease), stage III: Status: Chronic Code(s): N18.3 - Chronic kidney disease, stage 3 (moderate) (9) Thrombocytopenia: Status: Chronic Code(s): D69.6 - Thrombocytopenia, unspecified (10) Anemia: Status: Acute Code(s): D64.9 - Anemia, unspecified Medications at Discharge Home Medications allopurinol 300 mg tablet 300 mg PO DAILY gout 04/12/16 fenofibrate nanocrystallized 48 mg tablet 48 mg PO DAILY cholesterol 04/12/16 magnesium oxide 400 mg (241.3 mg magnesium) tablet 400 mg PO DAILY supplement 04/12/16 kfubigoc-uyi-ybrdn acid 0.4 mg-lycopene 300 mcg-lutein 250 mcg tablet 1 ea PO DAILY vitamin 04/12/16 sertraline 100 mg tablet 50 mg PO QHS depression 09/05/19 aspirin 81 mg tablet,delayed release (Adult Aspirin Regimen) 81 mg PO DAILY 11/10/20 ferrous sulfate 325 mg (65 mg iron) tablet 325 mg PO BID 11/10/20 albuterol sulfate 90 mcg/actuation aerosol inhaler 2 puff inhalation Q6H PRN AST HMA 05/25/21 fluticasone propionate 50 mcg/actuation nasal spray,suspension 1 spray intranasal DAILY 05/25/21 omeprazole 40 mg capsule,delayed release 40 mg PO DAILY 05/25/21 oxybutynin chloride 15 mg tablet,extended release 24 hr 30 mg PO DAILY 05/25/21 ascorbic acid (vitamin C) 500 mg capsule 500 mg PO DAILY 05/17/22 furosemide 20 mg tablet 20 mg PO Q OTHER DAY 05/17/22 melatonin 10 mg capsule 10 mg PO HS PRN sleep 05/17/22 nitroglycerin 0.4 mg sublingual tablet 0.4 mg sublingual Q5M PRN chest pain 05/17/22 lidocaine 5 % topical patch (Lidoderm) 1 patch topical DAILY #15 ea 09/11/22 cyanocobalamin (vitamin B-12) 5,000 mcg capsule 2,500 mcg PO DAILY 10/29/22 prochlorperazine maleate 10 mg tablet 10 mg PO Q8H PRN nausea and vomiting 10/29/22 rifaximin 550 mg tablet (Xifaxan) 550 mg PO BID 10/29/22 diltiazem HCl 120 mg capsule,extended release 24 hr 120 mg PO DAILY #30 caps metoprolol tartrate 25 mg tablet 25 mg PO BID #60 tabs 10/31/22 Hospital Course Procedures 2-D Echocardiogram, EKG and - (Chest x-ray) Summary of Care Provided Minutes Spent on Discharge: 38 Hospital Course: Mr. Medellin is an 82-year-old white male who presented to the emergency department on 10/29/2022 after mechanical fall. He evidently had been outside helping friends clear trees all day and suffered a mechanical fall that which time he caught his pants on a metal piece and was able to free himself. EMS was called to help get him loose and they noted he was markedly tachycardic at the time of their evaluation and was prompted to come the emergency department for further evaluation. Upon arrival emergency department he was noted to be in a trial fibrillation that initially improved with IV fluids alone. The patient did report poor oral intake throughout the day due to being outside and denied any known history of atrial fibrillation. He does have known history of chronic thrombocytopenia and MERCHANT cirrhosis with recent diagnosis of liver cancer. He follows with Dr. Dahl for this. Initial heart rate was 142 with a blood pressure of 97/77 that improved to 116/70 with IV fluids. Troponin was 12 and chest x-ray was unremarkable. EKG on presentation showed atrial flutter with a 2-1 block showing a heart rate of 135 with a right bundle branch block but no ischemic changes. Emergency department discussed the case with the yarding engineer on-call, Dr. Piña, who recommended against anticoagulation with his history of cirrhosis and chronic thrombocytopenia and initially they felt they may be able to send him home however the patient had recurrent elevation of his heart rate and was given Cardizem 10 mg IV bolus x1 dose. The patient was admitted to the PCU and oral Cardizem was initiated 120 mg daily. The patient had been on atenolol at home and this was transitioned to metoprolol 25 mg p.o. twice daily. He was found to be markedly hypomagnesemic on admission and this was replaced and normalized. The patient actually self cardioverted into normal sinus rhythm during his hospital course and remained in normal sinus rhythm at the time of discharge. We obtained a TSH and it was found to be 2.78. An echocardiogram was ordered and performed however read was pending at the time of discharge due to yarding engineer illness. Heart rate remained stable and normal sinus rhythm with rates between 60 and 70. On oral medications his blood pressure was 106/69 at the time of discharge. We disc continue his atenolol all subtwo metoprolol as noted and discontinue his HCTZ and continue diltiazem 120 mg daily a cardiology appointment was made for the patient in the outpatient setting and he will be seen on 11/14/2022 for further evaluation and consideration for possible Watchman device placement. If cardiology thinks this is appropriate referral will need to be made. As noted oral anticoagulation was thought to be very risky with his thrombocytopenia and cirrhosis and cardiology recommended against anticoagulation. Risk and benefit was discussed with the patient he voiced understanding that stroke was a possibility with him not being anticoagulation and having paroxysmal atrial fibrillation. He did however understand the reasoning behind not starting him on anticoagulation and the need for further outpatient follow-up. His new prescriptions were sent to the local pharmacy and the patient was able to be discharged home in stable condition on 10/31/2022. Physical and Occupational Therapy recommended home health at the time of discharge and this was set up with case management prior to discharge. He is to follow-up with his primary care physician within the next 2 weeks and is a cardiology appointment was set up as noted. Discharge diagnoses: Paroxysmal atrial flutter/atrial fibrillation with RVR Generalized weakness Mechanical fall Hypomagnesemia-resolved Hypophosphatemia-replace History of aortic valve stenosis status post bioprosthetic aortic valve replacement Compensated HFpEF secondary to diastolic dysfunction Nonobstructive CAD MERCHANT Liver cancer Chronic thrombocytopenia Asthma Hypertension Hyperlipidemia CKD stage IIIa Allergic rhinitis GERD Gout DEMI Anxiety Depression Obesity Physical Exam Const alert, oriented x3, no apparent distress, no limitations and well nourished Constitutional Narrative: Elderly white male lying in bed, appears comfortable nontoxic, visitors at bedside, patient is very talkative General Appearance: cooperative, comfortable, well kempt and well developed Orientation / Consciousness: awake, oriented to person, oriented to place and oriented to time Exam Limitations: no limitations Nutritional Appearance: obese HEENT normocephalic, head/scalp atraumatic and moist oral mucous membranes HEENT Narrative: Mild to moderate hearing loss, dentition is poor, Mallampati 3, no thrush Eyes PERRL, EOMs intact bilaterally and conjunctivae normal Eyes Narrative: No scleral icterus Neck no lymphadenopathy and supple Neck Narrative: Trachea midline, no thyroid enlargement Resp normal respiratory effort, no retractions, no use of accessory muscles and clear to auscultation bilaterally Auscultation: Negative for rales, rhonchi or wheezes Cardio regular rate, regular rhythm, S1 normal heart sound, S2 normal heart sound, no murmurs, no rub, no gallops, no clicks and no JVD GI normal to inspection, nondistended, normoactive bowel sounds, soft to palpation and non-tender Extremity no clubbing, cyanosis or edema Skin No no rashes or lesions noted, no wounds, skin turgor normal and no jaundice Skin Narrative: Scattered ecchymotic areas bilateral upper extremities Neuro oriented x3, CN's II-XII intact bilaterally, moves all extremities and no focal motor deficits Neuro Narrative: Mild generalized weakness-proximal and distal Sensorium / Orientation: oriented to person, oriented to place and oriented to time Speech: speech normal Psych affect normal Psych Narrative: For pleasant, appropriately interactive Weight / BMI Weight Weight: 105.9 kg Body Mass Index (BMI) 33.5 ABG / Lab / Microbiology Data 10/31/22 04:37 10/31/22 04:37 Laboratory: Laboratory Results - last 24 hr 10/31/22 04:37: WBC 5.2, RBC 3.11 L, Hgb 10.3 L, Hct 33.1 L, MCV 106.4 H, MCH 33.1 H, MCHC 31.1 L, RDW Std Deviation 68.6 H, RDW Coeff of Raina 17.3 H, Plt Count 67 L, MPV 11.8, Immature Gran % (Auto) 0.400, Neut % (Auto) 81.3 H, Lymph % (Auto) 8.0 L, [place] % (Auto) 7.0, Eos % (Auto) 2.5, Baso % (Auto) 0.8, Absolute Neuts (auto) 4.2, Absolute Lymphs (auto) 0.41 L, Nucleated RBC % 0, Differential Comment SCANNED, Platelet Estimate MOD DEC, Anisocytosis 1+, Stomatocytes 1+, Sodium 140, Potassium 4.6, Chloride 114 H, Carbon Dioxide 25.0, Anion Gap 1 L, BUN 31 H, Creatinine 1.02, Estim Creat Clear Calc 56.66, Est GFR (MDRD) Af Amer 90, Est GFR (MDRD) Non-Af 74, BUN/Creatinine Ratio 30.4 H, Glucose 97, Calcium 10.4 H, Phosphorus 2.1 L, Magnesium 1.7, Total Bilirubin 0.60, AST 44 H, ALT 33, Alkaline Phosphatase 182 H, Total Protein 5.7 L, Albumin 2.6 L, Globulin 3.1, Albumin/Globulin Ratio 0.8 L D/C Instructions Discharge Diet: Low fat / Low cholesterol Discharge Activity: Return to Normal Activity Meaningful Use Info Meaningful Use Diagnoses (Choose all that apply): None applicable Discharge Plan Admission Admit Date/Time: 10/29/22 22:49 Primary Reason for Your Visit: A-fib with RVR Attending Provider: Debbie Hines Primary Care Provider: Ricky Bradley Consulting Providers: Topher Piña; Joan Menjivar; Yousif Vega Instructions Additional Instructions / Restrictions: 1. Please continue to take your metoprolol and diltiazem as ordered to help control heart rate if you do have recurrence of A-fib with RVR. At discharge from the hospital you were in normal sinus rhythm. 2. As per our discussion, A-fib increases your chance of stroke but due to your cirrhosis and chronically low platelet count you are not a candidate for anticoagulation at this time as your bleeding risk is extremely high. Please follow-up with cardiology and discuss with them an outpatient referral for possible Watchman device placement. Discharge Orders/Prescriptions Prescriptions: New diltiazem HCl 120 mg Capsule,Extended Release 24hr 120 mg PO DAILY Qty: 30 0RF metoprolol tartrate 25 mg Tablet 25 mg PO BID Qty: 60 0RF Continued ferrous sulfate 325 mg (65 mg iron) tablet 325 mg PO BID aspirin [Adult Aspirin Regimen] 81 mg tablet,delayed release (DR/EC) 81 mg PO DAILY oxybutynin chloride 15 mg tablet extended release 24hr 30 mg PO DAILY albuterol sulfate 90 mcg/actuation HFA aerosol inhaler 2 puff inhalation Q6H PRN (Reason: ASTHMA) fluticasone propionate 50 mcg/actuation spray,suspension 1 spray intranasal DAILY omeprazole 40 mg capsule,delayed release(DR/EC) 40 mg PO DAILY furosemide 20 mg tablet 20 mg PO Q OTHER DAY ascorbic acid (vitamin C) 500 mg capsule 500 mg PO DAILY melatonin 10 mg capsule 10 mg PO HS PRN (Reason: sleep) nitroglycerin 0.4 mg tablet, sublingual 0.4 mg sublingual Q5M PRN (Reason: chest pain) Rx Instructions: do not exceed 3 doses per episode magnesium oxide 400 MG tablet 400 mg PO DAILY allopurinol 300 MG tablet 300 mg PO DAILY Patient Comments: GOUT [id number]-ZL-lycopen-lutein 1 EACH tablet 1 ea PO DAILY fenofibrate nanocrystallized 48 MG tablet 48 mg PO DAILY Patient Comments: CHOLESTEROL sertraline 100 MG tablet 50 mg PO QHS lidocaine [Lidoderm] 5 % adhesive patch,medicated 1 patch topical DAILY Qty: 15 0RF Rx Instructions: leave on most painful area for up to 12 hrs prochlorperazine maleate 10 mg tablet 10 mg PO Q8H PRN (Reason: nausea and vomiting) Patient Comments: TAKE 1 TABLET BY MOUTH EVERY 8 HOURS NEEDED FOR NAUSEA AND VOMITING Xifaxan 550 mg tablet 550 mg PO BID cyanocobalamin (vitamin B-12) 5,000 mcg capsule 2,500 mcg PO DAILY Discontinued atenolol 50 mg tablet 50 mg PO DAILY hydrochlorothiazide 12.5 MG capsule 12.5 mg PO DAILY Referrals / Follow Up: Ricky Bradley MD [Primary Care Provider] - Within 2 Weeks Tonio Fields NP, CLINICAL EDUCATION ACADEMIC COORDINATOR-C [Med Staff - [facility]] - 11/14/22 10:00 am Disposition Disposition (needs filled in before D/C Order can be placed): Home Health Service Charges/Coding Visit Charges Inpatient E&M: 96850 Disch Hosp >30min
[2022-11-01 12:21] LABS: Pathologist Review Reviewed
== END 2022-10-31 00:05 | disposition home health service (06) ==
LOC: ED 22:26 → PCU 23:07
PROVIDERS: Internal Medicine; Admitting Provider Family Medicine; Emergency Provider Emergency Medicine; PCP Internal Medicine; Visit Provider Internal Medicine
DX: I48.0 Paroxysmal atrial fibrillation (principal); I50.30 Unspecified diastolic (congestive) heart failure; I13.0 Hypertensive heart and chronic kidney disease with heart failure and stage 1 through stage 4 chronic kidney disease, or unspecified chronic kidney disease; I48.92 Unspecified atrial flutter; D69.6 Thrombocytopenia, unspecified; N18.31 Chronic kidney disease, stage 3a; I45.10 Unspecified right bundle-branch block; G47.33 Obstructive sleep apnea (adult) (pediatric); M10.9 Gout, unspecified; D50.9 Iron deficiency anemia, unspecified; E83.42 Hypomagnesemia; J45.20 Mild intermittent asthma, uncomplicated; F41.8 Other specified anxiety disorders; D72.810 Lymphocytopenia; E78.5 Hyperlipidemia, unspecified; D53.9 Nutritional anemia, unspecified; Z95.3 Presence of xenogenic heart valve; K21.9 Gastro-esophageal reflux disease without esophagitis; I25.10 Atherosclerotic heart disease of native coronary artery without angina pectoris; I08.1 Rheumatic disorders of both mitral and tricuspid valves; K75.81 Nonalcoholic steatohepatitis (NASH); E66.9 Obesity, unspecified; D63.1 Anemia in chronic kidney disease; Z79.899 Other long term (current) drug therapy; Z79.82 Long term (current) use of aspirin; Z68.34 Body mass index [BMI] 34.0-34.9, adult; Z91.81 History of falling
CPT/HCPCS: 36415; 71045; 80048; 80053; 83735; 84100; 84443; 84484; 85025; 93005; 93306; 94640; 96365; 96366; 96367; 97162; 97802; 99221; 99285; J7040; J7050; Q9957; A4216; C8929; G0378

== ENCOUNTER → 2022-12-06 | Outpatient (CLI) | payer MEDICARE, OTHER, SELFPAY | END | disposition home or self-care (01) | PROVIDERS: PCP Internal Medicine; Referring Provider Nurse Practitioner Family; Visit Provider Nurse Practitioner Family | DX: I48.0 Paroxysmal atrial fibrillation (principal) | CPT/HCPCS: 93225; 93226 ==

== ENCOUNTER 2022-12-07 15:55 | Emergency (ER) | payer MEDICARE, OTHER, SELFPAY ==
[2022-12-07] VITALS (7 sets, daily range): BP systolic 102–138; BP diastolic 67–99; PULSE 75–129; RESP 15–18; TEMP 36.5; O2SAT 98; BMI 34.7
--- NOTE | 2022-12-07 16:30 | RAD_ITS ---
INDICATION: chest pain EXAMINATION/TECHNIQUE: X-RAY - XR Chest 1 View COMPARISON: Oct 29 2022 FINDINGS: LINES/DEVICES: None. LUNGS: Small left pleural effusion. MEDIASTINUM AND CARDIOVASCULAR STRUCTURES: Cardiac silhouette not enlarged. Central airways and mediastinal contour are unremarkable. BONES AND SOFT TISSUES: Unremarkable. RAD/Chest 1 View (Portable) IMPRESSION: No radiographic evidence of acute cardiopulmonary disease. Electronically Signed: Beatriz Valentine MD at 16:48 EDT ,
--- NOTE | 2022-12-07 16:33 | EX.ED.DYSGE1 ---
HPI History of Present Illness Chief Complaint: Palpitations Narrative Narrative: Patient presenting for evaluation of tachycardia. Patient has no symptoms. He feels very well. He has a history of A-fib and is supposed to be on metoprolol and Cardizem although he states he is out of it. He also is no longer on a blood thinner because he was unable to tolerate it. He denies chest pain or shortness of breath. He has not any fever or chills. Patient states his home health care nurse from the [place] noted that his heart rate was fast. Patient states he just had a cardiology visit and is unsure why he does not have refills. [facility] Medical History Anemia Anemia in chronic kidney disease Anemia of chronic disease Aortic valve disorder Asthma Body mass index (BMI) 40.0-44.9, adult Chronic acquired lymphedema CKD (chronic kidney disease), stage III Depression Essential (primary) hypertension GERD (gastroesophageal reflux disease) Gout History of cerebrovascular accident History of splenomegaly Hyperlipemia Liver cancer Morbid obesity Multiple lung nodules New onset atrial flutter Non-alcoholic cirrhosis Nonobstructive atherosclerosis of coronary artery Nonrheumatic aortic (valve) stenosis OAB (overactive bladder) Obesity Obesity (BMI 30-39.9) DEMI treated with BiPAP Osteoarthritis PCK (polycystic kidney disease) Peripheral neuropathy Polycystic kidney disease 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) Right bundle branch block (RBBB) Splenomegaly Thrombocytopenia Thrombocytopenia Urge incontinence Home Medications allopurinol 300 mg tablet 300 mg PO DAILY gout 04/12/16 [History Last Taken 04/07/19] fenofibrate nanocrystallized 48 mg tablet 48 mg PO DAILY cholesterol 04/12/16 [History Last Taken 04/07/19] magnesium oxide 400 mg (241.3 mg magnesium) tablet 400 mg PO DAILY supplement 04/12/16 [History Last Taken 04/07/19] oubexxll-aka-yuvri acid 0.4 mg-lycopene 300 mcg-lutein 250 mcg tablet 1 ea PO DAILY vitamin 04/12/16 [History Last Taken 04/07/19] sertraline 100 mg tablet 50 mg PO QHS depression 09/05/19 [History Last Taken Unknown] aspirin 81 mg tablet,delayed release (Adult Aspirin Regimen) 81 mg PO DAILY 11/10/20 [History Last Taken Unknown] ferrous sulfate 325 mg (65 mg iron) tablet 325 mg PO BID 11/10/20 [History Last Taken Unknown] albuterol sulfate 90 mcg/actuation aerosol inhaler 2 puff inhalation Q6H PRN ASTHMA 05/25/21 [History Last Taken Unknown] fluticasone propionate 50 mcg/actuation nasal spray,suspension 1 spray intranasal DAILY 05/25/21 [History Last Taken Unknown] omeprazole 40 mg capsule,delayed release 40 mg PO DAILY 05/25/21 [History Last Taken Unknown] oxybutynin chloride 15 mg tablet,extended release 24 hr 30 mg PO DAILY 05/25/21 [History Last Taken Unknown] ascorbic acid (vitamin C) 500 mg capsule 500 mg PO DAILY 05/17/22 [History Last Taken Unknown] furosemide 20 mg tablet 20 mg PO Q OTHER DAY 05/17/22 [History Last Taken Unknown] melatonin 10 mg capsule 10 mg PO HS PRN sleep 05/17/22 [History Last Taken Unknown] nitroglycerin 0.4 mg sublingual tablet 0.4 mg sublingual Q5M PRN chest pain 05/17/22 [History Last Taken Unknown] lidocaine 5 % topical patch (Lidoderm) 1 patch topical DAILY #15 ea 09/11/22 [Rx Last Taken Unknown] cyanocobalamin (vitamin B-12) 5,000 mcg capsule 2,500 mcg PO DAILY 10/29/22 [History Last Taken Unknown] prochlorperazine maleate 10 mg tablet 10 mg PO Q8H PRN nausea and vomiting 10/29/22 [History Last Taken Unknown] rifaximin 550 mg tablet (Xifaxan) 550 mg PO BID 10/29/22 [History Last Taken Unknown] diltiazem HCl 120 mg capsule,extended release 24 hr 120 mg PO DAILY #30 caps 10/31/22 [Rx Last Taken Unknown] metoprolol tartrate 25 mg tablet 25 mg PO BID #60 tabs 10/31/22 [Rx Last Taken Unknown] diltiazem HCl 120 mg capsule,extended release 24 hr 120 mg PO DAILY #30 caps 12/07/22 [Rx Last Taken Unknown] metoprolol tartrate 25 mg tablet 25 mg PO BID #60 tabs 12/07/22 [Rx Last Taken Unknown] Allergy/AdvReac Type Severity Reaction Status Date / Time hydrocodone [From Vicodin] Allergy Other Verified 10/29/22 19:14 strawberry Allergy Hives Verified 10/29/22 19:14 venom-honey bee Allergy Anaphylaxis Verified 10/29/22 19:14 [bee venom (honey bee)] adhesive tape AdvReac Rash Verified 10/29/22 19:14 atorvastatin AdvReac PT UNSURE Verified 10/29/22 19:14 OF REACTION montelukast AdvReac PT UNSURE Verified 10/29/22 19:14 OF REACTION Family History Father CAD (coronary artery disease) Brother Diabetes Mother Heart disease Surgical History Aortic valve replaced History of aortic valve replacement with bioprosthetic valve (01/18/11) History of hip surgery (08/2019) History of knee replacement History of left heart catheterization (01/05/11) History of tonsillectomy History of total left hip arthroplasty History of total left hip replacement History of umbilical hernia repair Social History household members: none Smoking Status: Never smoker alcohol intake: never substance use type: does not use ROS ROS ED Constitutional Constitutional ED: Denies chills, fever(s) or sweats Eyes Eyes: Denies blurry vision or change in vision ENT ENT ED: Denies ear pain or sore throat Cardiovascular Cardiovascular: Denies chest pain, palpitations or racing heartbeat Respiratory/Chest Respiratory/Chest: Denies cough, dyspnea or sputum Gastrointestinal Gastrointestinal: Denies abdominal pain, constipation, diarrhea, nausea or vomiting Genitourinary Genitourinary ED: Denies dysuria, hematuria or urinary frequency Musculoskeletal Musculoskeletal: Denies arthralgias, myalgias or neck pain Integumentary Denies abscess, Abrasions or rash Neurologic Neurologic: Denies headache(s), paresthesias or weakness Psychiatric Psychiatric: Denies anxiety, depression, suicidal ideation or suicidal thoughts Endocrine Endocrinology: Denies polydipsia or polyuria EXAM Physical Exam Const Vital Signs: 12/07/22 16:02 12/07/22 16:37 12/07/22 16:45 Temperature 97.7 F L Temperature Source Oral Pulse Rate 126 H 129 H Respiratory Rate 15 Blood Pressure 124/99 H 136/92 H Blood Pressure Mean 107 106 Pulse Ox 98 Oxygen Delivery Method Room Air Room Air 12/07/22 16:49 12/07/22 17:47 12/07/22 19:00 Temperature Temperature Source Pulse Rate 75 91 93 Respiratory Rate 18 Blood Pressure 102/67 129/68 H 138/71 H Blood Pressure Mean 78 88 93 Pulse Ox Oxygen Delivery Method 12/07/22 19:36 12/07/22 19:52 Temperature Temperature Source Pulse Rate 101 H 93 Respiratory Rate 15 15 Blood Pressure 136/75 H 138/71 H Blood Pressure Mean Pulse Ox 98 Oxygen Delivery Method General Appearance ED: NAD; Negative for pallor HEENT Reports moist mucous membranes Eyes PERRL and EOMs intact bilaterally General Eye ED: Negative for pale conjunctiva or scleral icterus Neck no lymphadenopathy Chest Wall inspection of chest normal Resp normal respiratory effort and clear to auscultation bilaterally Auscultation: Negative for rales, rhonchi or wheezes Cardio Rate: tachycardic Rhythm: abnormal rhythm irregularly irregular GI normal to inspection, nondistended, normoactive bowel sounds Extremity General Extremety ED: Yes edema General Extremity: edema Neuro oriented x3 and CN's II-XII intact bilaterally Sensorium / Orientation: alert Motor Exam: strength 5/5 throughout Psych mental status grossly normal Skin no rashes or lesions noted and no wounds General Skin Exam: Negative for jaundice or pallor MDM MDM MDM Narrative Medical decision making narrative: Patient presenting tachycardic. He is asymptomatic. Obtained an EKG and on my interpretation this appears to be atrial fibrillation with rapid ventricular response at 140 bpm. Differential includes A-fib with RVR, acute, CHF, pneumonia, anemia, electrolyte normalities, dehydration. CBC will be obtained to assess white blood cell count, hemoglobin, platelets. BMP to assess renal function, electrolytes. High-sensitivity troponin will be obtained to assess for ischemia. BNP to assess for CHF. I will have to obtain a D-dimer as the patient is not anticoagulated and is tachycardic and therefore is not PERC negative. Chest x-ray will be obtained to rule out pneumonia versus CHF. Patient given Cardizem 20 mg. Talking with he and his family at he believes that he is out of his meds at home and that is why he does not have rate control. CBC and BMP within normal limits and near baseline. LFTs are normal. High-sensitivity troponin 21. Patient was given 20 of Cardizem and his heart rate did improve. His repeat EKG showed a flutter with controlled ventricular response at 73 bpm. Chest x-ray on my interpretation shows no acute process. Patient had elevated D-dimer today and had CTA of the chest which was negative for PE or dissection. This does show small bilateral pleural effusions. BNP is minimally elevated at 216. There does appear to be cirrhosis and portal hypertension and after talking with the family they know that he has a history of liver problems and actually states he has a history of liver cancer which is supposedly in remission. I called the pharmacy to see if the patient had refills and he did not and it looks like Dr. Hines was last when he prescribed medications with no refills. He states that since there were no refills he thought he was just done with the medications. I counseled him that when he comes to refill again that he needs to call his primary doctor to have them refilled. He will need to be on the metoprolol and the Cardizem long-term to keep his heart rate under control. I did refill his medications today. Discussed this at length with the family. I had them filled in the hospital so he can take him home with him. Impression: 1. A-fib with RVR Lab Data Labs: Laboratory Results - last 24 hr 12/07/22 12/07/22 16:35 18:35 WBC 3.6 L RBC 2.82 L Hgb 9.6 L Hct 30.1 L MCV 106.7 H MCH 34.0 H MCHC 31.9 L RDW Std Deviation 62.1 H RDW Coeff of Raina 15.9 H Plt Count 61 L MPV 11.4 Immature Gran % (Auto) 0.000 Neut % (Auto) 82.3 H Lymph % (Auto) 7.8 L Traverse % (Auto) 6.9 Eos % (Auto) 2.2 Baso % (Auto) 0.8 Absolute Neuts (auto) 3.0 Absolute Lymphs (auto) 0.28 L Nucleated RBC % 0 Differential Comment SCANNED Diff Path Review May foll D-Dimer Quant (PE/DVT) 1.86 H* Sodium 140 Potassium 4.0 Chloride 112 H Carbon Dioxide 24.0 Anion Gap 4 L BUN 32 H Creatinine 1.14 Estim Creat Clear Calc 50.69 Est GFR (MDRD) Af Amer 79 Est GFR (MDRD) Non-Af 65 BUN/Creatinine Ratio 28.1 H Glucose 103 Calcium 10.5 H Total Bilirubin 0.50 Direct Bilirubin 0.19 AST 47 H ALT 40 Alkaline Phosphatase 173 H Troponin I High Sens 19 21 B-Natriuretic Peptide 216.2 H Total Protein 5.9 L Albumin 2.8 L Globulin 3.1 Radiography Diagnostic Testing: Clinical Impression(s) from Imaging Studies Chest X-Ray 12/07/22 16:30 IMPRESSION: No radiographic evidence of acute cardiopulmonary disease. Electronically Signed: Beatriz Valentine MD at 16:48 EDT , Chest CTA 12/07/22 17:28 IMPRESSION: Small hiatal hernia. Mild interstitial thickening and lung bases suggesting mild pulmonary edema. Small bilateral pleural effusions Branching opacities in the left lung lower lobe most likely represent variation of venous drainage. Liver cirrhosis. Moderate splenomegaly suggesting portal hypertension. Cholelithiasis. Right renal cyst measures 1 cm. No demonstrated pulmonary embolism or arterial dissection. Electronically Signed: Beatriz Valentine MD at 18:26 EDT , Discharge Plan Triage Chief Complaint: Palpitations ED Provider: Geraldo Weber Dx/Rx/DC Orders Instructions: ED AFIB Prescriptions: New diltiazem HCl 120 mg capsule,extended release 24hr 120 mg PO DAILY Qty: 30 0RF metoprolol tartrate 25 mg tablet 25 mg PO BID Qty: 60 0RF No Action ferrous sulfate 325 mg (65 mg iron) tablet 325 mg PO BID aspirin [Adult Aspirin Regimen] 81 mg tablet,delayed release (DR/EC) 81 mg PO DAILY oxybutynin chloride 15 mg tablet extended release 24hr 30 mg PO DAILY albuterol sulfate 90 mcg/actuation HFA aerosol inhaler 2 puff inhalation Q6H PRN (Reason: ASTHMA) fluticasone propionate 50 mcg/actuation spray,suspension 1 spray intranasal DAILY omeprazole 40 mg capsule,delayed release(DR/EC) 40 mg PO DAILY furosemide 20 mg tablet 20 mg PO Q OTHER DAY ascorbic acid (vitamin C) 500 mg capsule 500 mg PO DAILY melatonin 10 mg capsule 10 mg PO HS PRN (Reason: sleep) nitroglycerin 0.4 mg tablet, sublingual 0.4 mg sublingual Q5M PRN (Reason: chest pain) Rx Instructions: do not exceed 3 doses per episode magnesium oxide 400 MG tablet 400 mg PO DAILY allopurinol 300 MG tablet 300 mg PO DAILY Patient Comments: GOUT ylsvdgpa-elw-GV-lycopen-lutein 1 EACH tablet 1 ea PO DAILY fenofibrate nanocrystallized 48 MG tablet 48 mg PO DAILY Patient Comments: CHOLESTEROL sertraline 100 MG tablet 50 mg PO QHS lidocaine [Lidoderm] 5 % adhesive patch,medicated 1 patch topical DAILY Qty: 15 0RF Rx Instructions: leave on most painful area for up to 12 hrs prochlorperazine maleate 10 mg tablet 10 mg PO Q8H PRN (Reason: nausea and vomiting) Patient Comments: TAKE 1 TABLET BY MOUTH EVERY 8 HOURS NEEDED FOR NAUSEA AND VOMITING Xifaxan 550 mg tablet 550 mg PO BID cyanocobalamin (vitamin B-12) 5,000 mcg capsule 2,500 mcg PO DAILY diltiazem HCl 120 mg Capsule,Extended Release 24hr 120 mg PO DAILY Qty: 30 0RF metoprolol tartrate 25 mg Tablet 25 mg PO BID Qty: 60 0RF Primary Care Provider: Ricky Bradley Referrals: Ricky Bradley MD [Primary Care Provider] - Disposition Disposition: Home, Self Care Discharge Date/Time: 12/07/22 20:02
[2022-12-07] MEDS: Aspirin 81 MG TAB.CHEW 162 MG PO (16:42)
[2022-12-07] MEDS: dilTIAZem 25 MG/5 ML Vial 20 MG IV BOLUS (16:43)
[2022-12-07 17:01] LABS: Absolute Lymphocyte Count 0.28 X10^3/uL (0.83-4.51); Basophil# 0.03 X10^3/uL; Basophil% 0.8 % (0-1); Eosinophil# 0.08 X10^3/uL; Eosinophils% 2.2 % (0-5); Hematocrit 30.1 % (40-54); Hemoglobin 9.6 g/dL (13.0-16.5); Lymphocyte # 0.28 X10^3/ul (0.83-4.51); Lymphocyte % 7.8 % (19-41); Mean Corp Hgb Conc 31.9 g/dL (32-36); Mean Corpuscular Volume 106.7 fL (80-94); Mean Platelet Vol. 11.4 fl (6.2-12.0); Monocyte# 0.25 X10^3/uL; Monocyte% 6.9 % (0-10); NRBC Flagged by Analyzer 0 % (0-5); Neutrophil # 2.97 X10^3/uL (2.7-7.7); Neutrophil % 82.3 % (47-70); POSITIVE COUNT YES; POSITIVE DIFFERENTIAL YES; Platelet Count 61 K/mm3 (150-450); RBC Distribution Width CV 15.9 % (11.6-14.6); RBC Distribution Width SD 62.1 fl (35.1-43.9); Red Blood Count 2.82 M/mm3 (4.6-6.2); White Blood Count 3.6 K/mm3 (4.4-11.0)
[2022-12-07 17:11] LABS: Anion Gap 4 (5-15); BUN 32 mg/dL (7-18); BUN/Creat Ratio 28.1 RATIO (10-20); Calcium,Total 10.5 mg/dL (8.5-10.1); Chloride 112 mmol/L (98-107); Creatinine, Serum 1.14 mg/dL (0.70-1.30); Differential Indicated SCAN CRITERIA MET; EST Glomerular Filtration Rate 65 mL/min (>60); Est Glom Filt Rate - Afr Amer 79 mL/min (>60); Estimated Creatinine Clearance 50.69 ml/min; Glucose 103 mg/dL (74-106); Sodium Level 140 mmol/L (136-145); Troponin-I HS (w/2H Reflex) 19 pg/mL (3.0-78.0)
[2022-12-07 17:13] LABS: D-Dimer Quantitative (DVT/PE) 1.86 FEU/ug/m (0.27-0.49)
--- NOTE | 2022-12-07 17:28 | CT_ITS ---
STUDY: CTA CHEST REASON FOR EXAM: Male, 82 years old. chest pain RADIATION DOSAGE (If Supplied By Facility): CTDIvol = ( 15.69 ) mGy, DLP = ( 532.70 ) mGycm TECHNIQUE: The examination was performed with the intravenous administration of IV 100mL [id number]. Post-processing of the angiographic images was performed, with multiplanar reformation and 3D reconstruction. Individualized dose optimization techniques were used for this CT. COMPARISON: Dec 07 2022 FINDINGS: Normal enhancement of the main pulmonary artery and right and left pulmonary arteries. Normal enhancement of the bilateral peripheral pulmonary arteries. There is no demonstrated pulmonary embolism. Normal thoracic aorta and visualized great vessels. There is no demonstrated aortic dissection. Normal heart and pericardium. Normal mediastinum. Normal hilar regions. Normal visualized trachea and bronchi. Mild interstitial thickening and lung bases suggesting mild pulmonary edema. Small bilateral pleural effusions Branching opacities in the left lung lower lobe most likely represent variation of venous drainage. Normal chest wall structures. Healing fracture of the right seventh rib. Small hiatal hernia. Liver cirrhosis. Moderate splenomegaly suggesting portal hypertension. Cholelithiasis. Right renal cyst measures [address]/CTA Chest W/WO Contrast IMPRESSION: Small hiatal hernia. Mild interstitial thickening and lung bases suggesting mild pulmonary edema. Small bilateral pleural effusions Branching opacities in the left lung lower lobe most likely represent variation of venous drainage. Liver cirrhosis. Moderate splenomegaly suggesting portal hypertension. Cholelithiasis. Right renal cyst measures 1 cm. No demonstrated pulmonary embolism or arterial dissection. Electronically Signed: Beatriz Valentine MD at 18:26 EDT ,
[2022-12-07 17:36] LABS: Differential Comment SCANNED
[2022-12-07 17:54] LABS: BNP,B-Type NATRIURETIC PEPTIDE 216.2 pg/mL (0-100)
[2022-12-07 18:44] LABS: Reflex Troponin-HS? (from REC) Y
[2022-12-07 19:07] LABS: AST(SGOT) 47 U/L (15-37); Alanine Aminotransfer ALT/SGPT 40 U/L (16-61); Albumin, Serum 2.8 g/dL (3.2-5.0); Alkaline Phosphatase 173 U/L (45-117); Bilirubin, Direct 0.19 mg/dL (0.00-0.30); Globulin 3.1 g/dL (2.2-4.2); Protein, Total 5.9 g/dL (6.4-8.2); Troponin-I HS 21 pg/mL (3.0-78.0)
[2022-12-08 15:18] LABS: Pathologist Review Reviewed
== END 2022-12-07 20:02 | disposition home or self-care (01) ==
PROVIDERS: Emergency Provider Student in an Organized Health Care Education/Training Program; PCP Internal Medicine; Visit Provider Student in an Organized Health Care Education/Training Program
DX: I48.91 Unspecified atrial fibrillation (principal); N18.30 Chronic kidney disease, stage 3 unspecified; I25.10 Atherosclerotic heart disease of native coronary artery without angina pectoris
CPT/HCPCS: 71045; 71275; 80048; 80076; 83880; 84484; 85025; 85379; 93005; 99285; Q9967; A4216

== ENCOUNTER 2023-01-12 08:53 | Outpatient (RCR) | payer MEDICARE, OTHER, SELFPAY ==
[2023-01-12 09:20] VITALS: BP 125/75; PULSE 76; RESP 18; BMI 34.5
--- NOTE | 2023-01-12 10:18 | PCM.WC.HP ---
History of Present Illness Date of Service: 01/12/23 Chief Complaint: Left lower extremity swelling and edema with superficial excoriation History of Wound: This is an 82-year-old male who presented with bilateral lower extremity swelling and edema. The patient stated that his swelling is worse each day in the evening. The swelling in his lower extremities is chronic, and has been ongoing for several years. Within the last 3 weeks prior to presentation, the patient hasd noted the development of a blister and superficial excoriations, for which the patient used topical antibiotic ointment. He was previously taken off of Lasix, and a prescription for Demadex was provided. The patient denies a history of lower extremity thrombophlebitis. He lives alone. He is not active. Any activity is limited. Patient is obese. Does sleep in bed flat on mattress. However, he spends long hours each day in the sitting position. States he was previously seen here for same condition early this year. Reports [place] is ordering him new compression socks with zipper so that he may remain compliant in wearing stockings. Denies any N/V/F/chills. Denies further complaints. [facility] Medical History Anemia Anemia in chronic kidney disease Anemia of chronic disease Aortic valve disorder Asthma Body mass index (BMI) 40.0-44.9, adult Chronic acquired lymphedema CKD (chronic kidney disease), stage III Depression Essential (primary) hypertension GERD (gastroesophageal reflux disease) Gout History of cerebrovascular accident History of splenomegaly Hyperlipemia Liver cancer Morbid obesity Multiple lung nodules New onset atrial flutter Non-alcoholic cirrhosis Nonobstructive atherosclerosis of coronary artery Nonrheumatic aortic (valve) stenosis OAB (overactive bladder) Obesity Obesity (BMI 30-39.9) DEMI treated with BiPAP Osteoarthritis PCK (polycystic kidney disease) Peripheral neuropathy Polycystic kidney disease 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) Right bundle branch block (RBBB) Splenomegaly Thrombocytopenia Thrombocytopenia Urge incontinence Home Medications allopurinol 300 mg tablet 300 mg PO DAILY gout 04/12/16 [History Last Taken 04/07/19] fenofibrate nanocrystallized 48 mg tablet 48 mg PO DAILY cholesterol 04/12/16 [History Last Taken 04/07/19] magnesium oxide 400 mg (241.3 mg magnesium) tablet 400 mg PO DAILY supplement 04/12/16 [History Last Taken 04/07/19] gtzlaamp-pzp-takeh acid 0.4 mg-lycopene 300 mcg-lutein 250 mcg tablet 1 ea PO DAILY vitamin 04/12/16 [History Last Taken 04/07/19] sertraline 100 mg tablet 50 mg PO QHS depression 09/05/19 [History Last Taken Unknown] aspirin 81 mg tablet,delayed release (Adult Aspirin Regimen) 81 mg PO DAILY 11/10/20 [History Last Taken Unknown] ferrous sulfate 325 mg (65 mg iron) tablet 325 mg PO BID 11/10/20 [History Last Taken Unknown] albuterol sulfate 90 mcg/actuation aerosol inhaler 2 puff inhalation Q6H PRN ASTHMA 05/25/21 [History Last Taken Unknown] fluticasone propionate 50 mcg/actuation nasal spray,suspension 1 spray intranasal DAILY 05/25/21 [History Last Taken Unknown] omeprazole 40 mg capsule,delayed release 40 mg PO DAILY 05/25/21 [History Last Taken Unknown] oxybutynin chloride 15 mg tablet,extended release 24 hr 30 mg PO DAILY 05/25/21 [History Last Taken Unknown] ascorbic acid (vitamin C) 500 mg capsule 500 mg PO DAILY 05/17/22 [History Last Taken Unknown] furosemide 20 mg tablet 20 mg PO Q OTHER DAY 05/17/22 [History Last Taken Unknown] melatonin 10 mg capsule 10 mg PO HS PRN sleep 05/17/22 [History Last Taken Unknown] nitroglycerin 0.4 mg sublingual tablet 0.4 mg sublingual Q5M PRN chest pain 05/17/22 [History Last Taken Unknown] lidocaine 5 % topical patch (Lidoderm) 1 patch topical DAILY #15 ea 09/11/22 [Rx Last Taken Unknown] cyanocobalamin (vitamin B-12) 5,000 mcg capsule 2,500 mcg PO DAILY 10/29/22 [History Last Taken Unknown] prochlorperazine maleate 10 mg tablet 10 mg PO Q8H PRN nausea and vomiting 10/29/22 [History Last Taken Unknown] rifaximin 550 mg tablet (Xifaxan) 550 mg PO BID 10/29/22 [History Last Taken Unknown] diltiazem HCl 120 mg capsule,extended release 24 hr 120 mg PO DAILY #30 caps 10/31/22 [Rx Last Taken Unknown] metoprolol tartrate 25 mg tablet 25 mg PO BID #60 tabs 10/31/22 [Rx Last Taken Unknown] diltiazem HCl 120 mg capsule,extended release 24 hr 120 mg PO DAILY #30 caps 12/07/22 [Rx Last Taken Unknown] metoprolol tartrate 25 mg tablet 25 mg PO BID #60 tabs 12/07/22 [Rx Last Taken Unknown] Allergy/AdvReac Type Severity Reaction Status Date / Time hydrocodone [From Vicodin] Allergy Other Verified 10/29/22 19:14 strawberry Allergy Hives Verified 10/29/22 19:14 venom-honey bee Allergy Anaphylaxis Verified 10/29/22 19:14 [bee venom (honey bee)] adhesive tape AdvReac Rash Verified 10/29/22 19:14 atorvastatin AdvReac PT UNSURE Verified 10/29/22 19:14 OF REACTION montelukast AdvReac PT UNSURE Verified 10/29/22 19:14 OF REACTION Family History Father CAD (coronary artery disease) Brother Diabetes Mother Heart disease Surgical History Aortic valve replaced History of aortic valve replacement with bioprosthetic valve (01/18/11) History of hip surgery (08/2019) History of knee replacement History of left heart catheterization (01/05/11) History of tonsillectomy History of total left hip arthroplasty History of total left hip replacement History of umbilical hernia repair Social History household members: none Smoking Status: Never smoker alcohol intake: never substance use type: does not use ROS Constitutional Constitutional: Denies anorexia, chills, fatigue or fever(s) Eyes Eyes: Denies change in vision, double vision or eye pain ENT HEENT: Denies dysphagia, nasal congestion, nasal discharge or sore throat Cardiovascular Cardiovascular: Denies chest pain, dyspnea or fatigue Respiratory/Chest Respiratory/Chest: Denies cough, shortness of breath at rest or wheezing Gastrointestinal Gastrointestinal: Denies abdominal pain, constipation, diarrhea, nausea or vomiting Genitourinary Genitourinary: Denies dysuria, hematuria or urinary urgency Musculoskeletal Musculoskeletal: Denies joint pain, joint stiffness or joint swelling Integumentary Integumentary: Denies lesions, pruritus or rash Neurologic Neurologic: Denies dizziness, numbness or seizures Endocrine Endocrinology: Denies cold intolerance or heat intolerance Hematologic/Lymphatic Hematologic/Lymphatic: Denies lymphadenopathy Vital Signs Vital Signs Vital Signs: 01/12/23 09:20 Pulse Rate 76 Respiratory Rate 18 Blood Pressure 125/75 H Blood Pressure Mean 91 Blood Pressure Source Monitor Blood Pressure Position Semi-Fowlers Blood Pressure Location Left Arm Oxygen Delivery Method Room Air Weight Weight: 109.316 kg Body Mass Index (BMI) 34.5 Physical Exam Const alert, oriented x3, no apparent distress and well nourished General Appearance: cooperative HEENT normocephalic Eyes General Eye: normal appearance of both eyes Neck General: normal visual inspection Lymph Lymphatic: no lymphadenopathy noted and no lymphedema noted Resp normal respiratory effort Cardio regular rate and regular rhythm Extremity normal capillary refill, no joint enlargement and no calf tenderness Extremity Narrative: DP and PT pulses palpable with adequate capillary fill to the digits of the left lower extremity. Mild nonpitting edema noted to the dorsal foot, LORI ankle, and lower extremity. Dermatological: There is mild nonpitting edema to the lower extremity with anterior superficial skin scrape/previous blister site. There is intact skin covering site. No signs of infection. No pain to palpation of left lower extremity. Musculoskeletal: Muscle strength 5 of 5 age-appropriate. Decreased range of motion of the ankle joint and first metatarsophalangeal joint. Skin no rashes or lesions noted, skin turgor normal and no jaundice Neuro moves all extremities Debridement Note Debridement Note No debridement was completed: No debridement was completed today Post-Debridement Measurements and Additional Note: Post-Debridement Measurements/Treatment - Nurse 1 - General Ulcer Assessment Start: 01/12/23 09:14 Freq: Status: Active Protocol: WC.LOWEXT Activity Type Activity Date Activity User E-sign Co-sign Detail Recorded Client Recorded Date Recorded By Document 01/12/23 09:20 KW Desktop 01/12/23 09:36 KW 01/12/23 09:20 - Today's Visit Information Type of service Initial Visit Arrival Mode Ambulatory, Walker Patient Identification Verified (Name & Yes ) Height and Weight Height 5 ft 10 in Weight 109.316 kg Weight in Pounds 241.0 lbs Weight Measurement Method Estimated by Patient Body Mass Index (BMI) 34.5 BMI Classification Obese BSA - [place] 2.26 Vital Signs Pulse Rate (60-100) 76 Pulse Location Monitor Respiratory Rate (12-18) 18 Respiratory rate source Observation Oxygen Delivery Method Room Air Blood Pressure (90/60-120/80) 125/75 H Blood Pressure Mean 91 Source Monitor Position Semi-Fowlers Blood Pressure Location Left Arm History Since Last Visit- (Skip if this is Patient's initial visit) Left Footwear Regular Shoe Right Footwear Regular Shoe Pain Scale: 0-10 Numeric Is Patient Pain Free? Yes WC - Nurse 1 - General Ulcer Measurement Start: 01/12/23 09:14 Freq: Status: Active Protocol: Activity Type Activity Date Activity User E-sign Co-sign Detail Recorded Client Recorded Date Recorded By Document 01/12/23 09:20 KW Desktop 01/12/23 09:36 KW 01/12/23 09:20 Wound Center Nurse 1 #4 LT RICHTER -Current Size (cm) - Length 0.9 -Current Size (cm) - Width 0.7 -Current Size (cm) - Depth 0.1 -Total Square Cm 0.63 -Exudate Amt Small -Exudate Type Serosanguineous -Wound Margin Distinct, Outline Attached -Granulation Amt Large (67-100%) -Granulation Quality Red -Necrosis Amt Small (1-33%) -Texture (Lori-wound Skin Appearance) Assessed, Localized Edema -Moisture (Lori-wound Skin Appearance) Assessed -Color (Lori-wound Skin Appearance) Assessed, Erythema -Temperature (Lori-wound Skin No Abnormality Appearance) (Pt Warm) -Ulcer Cleansing Soap and Water -Foul Odor after Cleansing No -Anesthetic Used 5% Lidocaine Gel Left Calf (cm) 43 Left Ankle (cm) 26 Assessment/Plan Assessment/Plan (1) Leg edema, left: CODE(S): R60.0 - Localized edema (2) Obesity (BMI 30-39.9): CODE(S): E66.9 - Obesity, unspecified (3) Peripheral neuropathy: CODE(S): G62.9 - Polyneuropathy, unspecified (4) Paroxysmal A-fib: CODE(S): I48.0 - Paroxysmal atrial fibrillation (5) Venous insufficiency (chronic) (peripheral): CODE(S): I87.2 - Venous insufficiency (chronic) (peripheral) (6) Non-pressure chronic ulcer of left calf limited to breakdown of skin: CODE(S): L97.221 - Non-pressure chronic ulcer of left calf limited to breakdown of skin PLAN: Plan Patient seen and evaluated There is a previous blister site noted to the anterior left lower extremity with intact skin coverage. Skin is friable. No sign of infection. No drainage. The site did not undergo debridement today. Friable skin covered with Adaptic and dry sterile dressing. 3M compression wrap applied to lower extremity. Discussed continued use of compression stocking to the right lower extremity with elevation of both lower extremities at times of rest to aid in edema control. [facility] with zipper and he will transition to these once they arrive. Discussed the importance of elevating lower extremities at times of rest to aid in edema control as well as continued compliance of compression stockings to discourage new wound formation. He voices understanding of this. The following work up and care recommendations were made: Dressing: Adaptic overlying friable skin, dry sterile dressing, 3M compression wrap left lower extremity Wash: Do not get wet Tissue growth optimization: None Offload: None Vascular: Chronic venous insufficiency, previously followed with Dr. Nation Edema: Mild nonpitting edema bilateral lower extremity. Recommended continued use of compression stockings and elevation of lower extremities at times of rest Infection: No signs of infection Pain: May take [id number] Tylenol for discomfort Host factors: Chronic venous insufficiency with bilateral lower extremity edema, obesity, A-fib, and history of coronary artery disease. I answered all the patient's questions. To return to the wound healing center in 1 week or call sooner if the patient has any questions or concerns.
== END 2023-01-14 23:59 | disposition home or self-care (01) ==
LOC: WC 08:53
PROVIDERS: PCP Internal Medicine; Referring Provider Nurse Practitioner; Visit Provider Student in an Organized Health Care Education/Training Program
DX: I87.2 Venous insufficiency (chronic) (peripheral) (principal); L97.221 Non-pressure chronic ulcer of left calf limited to breakdown of skin; I48.0 Paroxysmal atrial fibrillation; N18.30 Chronic kidney disease, stage 3 unspecified; G62.9 Polyneuropathy, unspecified; E78.5 Hyperlipidemia, unspecified; I12.9 Hypertensive chronic kidney disease with stage 1 through stage 4 chronic kidney disease, or unspecified chronic kidney disease; M10.9 Gout, unspecified; D63.1 Anemia in chronic kidney disease; E66.9 Obesity, unspecified; I25.10 Atherosclerotic heart disease of native coronary artery without angina pectoris; R60.0 Localized edema; M79.89 Other specified soft tissue disorders; Z79.899 Other long term (current) drug therapy; Z79.82 Long term (current) use of aspirin; Z68.34 Body mass index [BMI] 34.0-34.9, adult
CPT/HCPCS: 29581; 99213; G0463

== ENCOUNTER 2023-01-19 09:56 | Outpatient (RCR) | payer MEDICARE, OTHER, SELFPAY ==
[2023-01-15 00:30] VITALS: BP 125/75; PULSE 76; RESP 18; BMI 34.5
[2023-01-19 10:21] VITALS: BP 134/63; PULSE 120; RESP 22; TEMP -13.4; TEMP 7.8; BMI 34.5
--- NOTE | 2023-01-19 13:39 | PCM.WC.PN ---
History of Present Illness Date of Service: 01/19/23 Chief Complaint: Left lower extremity swelling and edema with superficial excoriation History of Wound: This is an 82-year-old male who presented with bilateral lower extremity swelling and edema. The patient stated that his swelling is worse each day in the evening. The swelling in his lower extremities is chronic, and has been ongoing for several years. Within the last 3 weeks prior to presentation, the patient hasd noted the development of a blister and superficial excoriations, for which the patient used topical antibiotic ointment. He was previously taken off of Lasix, and a prescription for Demadex was provided. The patient denies a history of lower extremity thrombophlebitis. He lives alone. He is not active. Any activity is limited. Patient is obese. Does sleep in bed flat on mattress. However, he spends long hours each day in the sitting position. States he was previously seen here for same condition early this year. Reports [facility] with zipper so that he may remain compliant in wearing stockings. Denies any N/V/F/chills. Denies further complaints. Subjective Subjective This is an 82-year-old male who follows to the wound care center today for left lower extremity wound. He states he has continued to wear the compression stocking and believes the wound is healed today. Denies constitutional symptoms. Denies further complaints. Objective Data Objective Data Vital Signs: Vital Signs Temp Pulse Resp BP 7.8 F L 120 H 22 H 134/63 H 01/19/23 10:21 01/19/23 10:21 01/19/23 10:21 01/19/23 10:21 Weight: 109.316 kg Body Mass Index (BMI) 34.5 Physical Exam Const alert, oriented x3, no apparent distress and well nourished General Appearance: cooperative HEENT normocephalic Eyes General Eye: normal appearance of both eyes Neck General: normal visual inspection Lymph Lymphatic: no lymphadenopathy noted and no lymphedema noted Resp normal respiratory effort Cardio regular rate and regular rhythm Extremity normal capillary refill, no joint enlargement, no calf tenderness and no pedal edema Extremity Narrative: DP and PT pulses palpable with adequate capillary fill to the digits of the left lower extremity. Mild nonpitting edema noted to the dorsal foot, GERARDO ankle, and lower extremity. Dermatological: There is mild nonpitting edema to the lower extremity with anterior superficial skin scrape/previous blister site. There is intact skin covering site. No signs of infection. No pain to palpation of left lower extremity. Musculoskeletal: Muscle strength 5 of 5 age-appropriate. Decreased range of motion of the ankle joint and first metatarsophalangeal joint. Skin no rashes or lesions noted, skin turgor normal and no jaundice Neuro moves all extremities Debridement Note Debridement Note No debridement was completed: No debridement was completed today Post-Debridement Measurements and Additional Note: Post-Debridement Measurements/Treatment WC - Nurse 1 - General Ulcer Assessment Start: 01/19/23 10:17 Freq: Status: Active Protocol: SHAYLA Activity Type Activity Date Activity User E-sign Co-sign Detail Recorded Client Recorded Date Recorded By Document 01/19/23 10:21 DL Desktop 01/19/23 10:31 DL 01/19/23 10:21 WC - Today's Visit Information Type of service Follow-up Visit (Physician/SURGICAL NURSE PRACTITIONER ) Arrival Mode Ambulatory, Walker Transfer Assistance None Transfer Assist (Other) x1 Patient Identification Verified (Name & Yes ) Patient Requires Transmission-Based No Precautions Safety Precautions Fall Prevention Height and Weight Body Mass Index (BMI) 34.5 BMI Classification Obese Vital Signs Temperature (97.8 F-99.1 F) 7.8 F L Temperature Source Temporal Pulse Rate (60-100) 120 H Pulse Location Monitor Respiratory Rate (12-18) 22 H Respiratory rate source Observation Blood Pressure (90/60-120/80) 134/63 H Blood Pressure Mean (mm Hg) 86 Source Monitor History Since Last Visit- (Skip if this is Patient's initial visit) Have you changed medications since your No last visit? Any new allergies or adverse reactions No Had a fall/change in ADL's that may No increase risk of falls Signs or symptoms of abuse and/or No neglect since last visit Have you been in the hospital since your No last visit? Has dressing in place as prescribed Yes Has compression in place as prescribed Yes Has offloadiing in place as prescribed N/A Experienced any changes in pain level or Yes management Pain Scale: 0-10 Numeric Is Patient Pain Free? Yes ELIZABETH - Nurse 1 - General Ulcer Measurement Start: 01/19/23 10:17 Freq: Status: Active Protocol: Activity Type Activity Date Activity User E-sign Co-sign Detail Recorded Client Recorded Date Recorded By Document 10/05/23 10:21 DL Desktop 01/19/23 10:31 DL 01/19/23 10:21 Wound Center Nurse 1 #4 LT RICHTER -Current Size (cm) - Length 0 -Current Size (cm) - Width 0 -Current Size (cm) - Depth 0 -Total Square Cm 0 -Photo Taken Yes -Exudate Amt None Present -Wound Margin Flat & Intact -Granulation Amt Large (67-100%) -Granulation Quality [place] -Necrosis Amt None Present (0 %) -Structure Exposed N/A -Texture (Gerardo-wound Skin Appearance) Scarring -Moisture (Gerardo-wound Skin Appearance) No Abnormality -Color (Gerardo-wound Skin Appearance) No Abnormality -Temperature (Gerardo-wound Skin No Abnormality Appearance) (Pt Warm) -Tenderness on Palpation (Gerardo-wound No Skin Appearance) -Ulcer Cleansing Soap and Water -Foul Odor after Cleansing No Right Calf (cm) 43 Right Ankle (cm) 25.5 Assessment/Plan Assessment/Plan (1) Non-pressure chronic ulcer of left calf limited to breakdown of skin: CODE(S): L97.221 - Non-pressure chronic ulcer of left calf limited to breakdown of skin (2) Venous insufficiency (chronic) (peripheral): CODE(S): I87.2 - Venous insufficiency (chronic) (peripheral) (3) Peripheral neuropathy: CODE(S): G62.9 - Polyneuropathy, unspecified (4) Leg edema, left: CODE(S): R60.0 - Localized edema PLAN: Plan Patient seen and evaluated Wound to the anterior left lower extremity has healed today. No sign of infection. No drainage. Compression stocking applied to left lower extremity. He will continue to wear bilateral lower extremity compression stockings to discourage recidivism to the left lower extremity. Discussed continued use of compression stocking to the right lower extremity with elevation of both lower extremities at times of rest to aid in edema control. [facility] with zipper and he will transition to these once they arrive. Discussed the importance of elevating lower extremities at times of rest to aid in edema control as well as continued compliance of compression stockings to discourage new wound formation. He voices understanding of this. The following work up and care recommendations were made: Dressing: None Wash: Soap and water Tissue growth optimization: None Offload: Compression stocking bilateral Vascular: Continue compression stocking bilateral for lower edema control Edema: Continue compression stocking bilateral for lower edema control with elevation of lower extremities at times of rest Infection: No signs of infection Pain: May take [id number] Tylenol as needed for discomfort Host factors: Chronic venous insufficiency At this time he is healed and discharged from the wound care center I answered all the patient's questions. To return to the wound healing center as needed or call sooner if the patient has any questions or concerns.
== END 2023-01-19 16:11 | disposition home or self-care (01) ==
LOC: WC 09:56
PROVIDERS: PCP Internal Medicine; Referring Provider Nurse Practitioner; Visit Provider Student in an Organized Health Care Education/Training Program
DX: Z09 Encounter for follow-up examination after completed treatment for conditions other than malignant neoplasm (principal); I87.2 Venous insufficiency (chronic) (peripheral); R60.0 Localized edema; G62.9 Polyneuropathy, unspecified
CPT/HCPCS: 99213; G0463

== ENCOUNTER 2023-04-06 21:36 | Inpatient (IN) | payer MEDICARE, OTHER, SELFPAY ==
[2023-04-06 21:39] VITALS: BP 127/92; PULSE 130; RESP 18; TEMP 36.8; O2SAT 91; BMI 38.3
[2023-04-06 21:44] VITALS: BP 127/92; PULSE 130; RESP 18; TEMP 36.8; O2SAT 93
--- NOTE | 2023-04-06 21:53 | EKG12_ITS ---
Test Reason : SOB Blood Pressure : / mmHG Vent. Rate : 128 BPM Atrial Rate : 063 BPM P-R Int : 202 ms QRS Dur : 136 ms QT Int : 352 ms P-R-T Axes : 111 010 021 degrees QTc Int : 513 ms Critical Test Result: Arrhythmia Sinus rhythm with frequent Premature ventricular complexes Right bundle branch block Abnormal ECG Confirmed by TADEO NUNEZ, MENDEZ ([id number]), publishing editor GEORGE LOPEZ ([id number]) on 04/07/2023 2:04:10 PM Referred By: BENY Confirmed By:MENDEZ PIEDRA MD
[2023-04-06 22:06] VITALS: O2SAT 91
--- NOTE | 2023-04-06 22:07 | RAD_ITS ---
EXAM: XR CHEST, 1 VIEW CLINICAL INDICATION: chest pain TECHNIQUE: Frontal view of the chest. COMPARISON: 12/07/2022 FINDINGS: LUNGS AND PLEURAL SPACES: There is bilateral lower lobe airspace disease. No pneumothorax. No effusion. HEART: Unremarkable. Cardiac silhouette not enlarged. MEDIASTINUM: Central airways and mediastinal contour are unremarkable. BONES/JOINTS: Unremarkable. No acute fracture. SOFT TISSUES: Unremarkable. RAD/Chest 1 View (Portable) IMPRESSION: Bilateral lower lobe airspace disease which may represent pneumonia. Electronically Signed: Harinder Cristina MD at 22:36 EST ,
[2023-04-06] MEDS: 0.9% Normal Saline (1000mL) 1,000 ML 1000 ML IV (22:15)
--- NOTE | 2023-04-06 22:16 | EDS_ITS ---
HPI History of Present Illness Chief Complaint: Shortness of Breath Narrative Narrative: 82-year-old male with history of A-fib, CAD, DEMI, obesity presenting with 2 weeks of worsening dyspnea. This is worse with exertion. Patient states that he is okay when he sitting. He is able to sleep at night flat on his side without orthopnea. No fevers or chills. He states he was initially supposed to go to the [place] by [place] 2-1/2 weeks ago but could not get in the van. He states that he was unable to get a ride and does not have any family however at this point in the interview his daughter walked in and states that she could have taken him. States that he is stubborn and does not want help. He is weak and when she went to pick him up he could not even walk. [facility] Medical History Anemia Anemia in chronic kidney disease Anemia of chronic disease Aortic valve disorder Asthma Body mass index (BMI) 40.0-44.9, adult Chronic acquired lymphedema CKD (chronic kidney disease), stage III Depression Essential (primary) hypertension GERD (gastroesophageal reflux disease) Gout History of cerebrovascular accident History of splenomegaly Hyperlipemia Liver cancer Morbid obesity Multiple lung nodules New onset atrial flutter Non-alcoholic cirrhosis Nonobstructive atherosclerosis of coronary artery Nonrheumatic aortic (valve) stenosis OAB (overactive bladder) Obesity Obesity (BMI 30-39.9) DEMI treated with BiPAP Osteoarthritis PCK (polycystic kidney disease) Peripheral neuropathy Polycystic kidney disease 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) Right bundle branch block (RBBB) Splenomegaly Thrombocytopenia Thrombocytopenia Urge incontinence Home Medications allopurinol 300 mg tablet 300 mg PO DAILY gout 04/12/16 [History Last Taken 04/07/19] fenofibrate nanocrystallized 48 mg tablet 48 mg PO DAILY cholesterol 04/12/16 [History Last Taken 04/07/19] magnesium oxide 400 mg (241.3 mg magnesium) tablet 400 mg PO DAILY supplement 04/12/16 [History Last Taken 04/07/19] yaxcytmb-hyq-bzoyf acid 0.4 mg-lycopene 300 mcg-lutein 250 mcg tablet 1 ea PO DAILY vitamin 04/12/16 [History Last Taken 04/07/19] sertraline 100 mg tablet 50 mg PO QHS depression 09/05/19 [History Last Taken Unknown] aspirin 81 mg tablet,delayed release (Adult Aspirin Regimen) 81 mg PO DAILY 11/10/20 [History Last Taken Unknown] ferrous sulfate 325 mg (65 mg iron) tablet 325 mg PO BID 11/10/20 [History Last Taken Unknown] albuterol sulfate 90 mcg/actuation aerosol inhaler 2 puff inhalation Q6H PRN ASTHMA 05/25/21 [History Last Taken Unknown] fluticasone propionate 50 mcg/actuation nasal spray,suspension 1 spray intranasal DAILY 05/25/21 [History Last Taken Unknown] omeprazole 40 mg capsule,delayed release 40 mg PO DAILY 05/25/21 [History Last Taken Unknown] oxybutynin chloride 15 mg tablet,extended release 24 hr 30 mg PO DAILY 05/25/21 [History Last Taken Unknown] ascorbic acid (vitamin C) 500 mg capsule 500 mg PO DAILY 05/17/22 [History Last Taken Unknown] furosemide 20 mg tablet 20 mg PO Q OTHER DAY 05/17/22 [History Last Taken Unknown] nitroglycerin 0.4 mg sublingual tablet 0.4 mg sublingual Q5M PRN chest pain 05/17/22 [History Last Taken Unknown] lidocaine 5 % topical patch (Lidoderm) 1 patch topical DAILY #15 ea 09/11/22 [Rx Last Taken Unknown] cyanocobalamin (vitamin B-12) 5,000 mcg capsule 2,500 mcg PO DAILY 10/29/22 [History Last Taken Unknown] rifaximin 550 mg tablet (Xifaxan) 550 mg PO BID 10/29/22 [History Last Taken Unknown] diltiazem HCl 120 mg capsule,extended release 24 hr 120 mg PO DAILY #30 caps 12/07/22 [Rx Last Taken Unknown] metoprolol tartrate 25 mg tablet 25 mg PO BID #60 tabs 12/07/22 [Rx Last Taken Unknown] fluticasone furoate 200 mcg-vilanterol 25 mcg/dose inhalation powder (Breo Ellipta) 1 inh inhalation DAILY 04/06/23 [History Last Taken Unknown] Allergy/AdvReac Type Severity Reaction Status Date / Time hydrocodone [From Vicodin] Allergy Other Verified 04/06/23 21:38 strawberry Allergy Hives Verified 04/06/23 21:38 venom-honey bee Allergy Anaphylaxis Verified 04/06/23 21:38 [bee venom (honey bee)] adhesive tape AdvReac Rash Verified 10/29/22 19:14 atorvastatin AdvReac PT UNSURE Verified 04/06/23 21:38 OF REACTION montelukast AdvReac PT UNSURE Verified 04/06/23 21:38 OF REACTION Family History Father CAD (coronary artery disease) Brother Diabetes Mother Heart disease Surgical History Aortic valve replaced History of aortic valve replacement with bioprosthetic valve (01/18/11) History of hip surgery (08/2019) History of knee replacement History of left heart catheterization (01/05/11) History of tonsillectomy History of total left hip arthroplasty History of total left hip replacement History of umbilical hernia repair Social History household members: none Smoking Status: Never smoker alcohol intake: never substance use type: does not use ROS ROS ED Constitutional Constitutional ED: Denies chills, fever(s) or sweats Eyes Eyes: Denies blurry vision or change in vision ENT ENT ED: Denies ear pain or sore throat Cardiovascular Cardiovascular: Denies chest pain, palpitations or racing heartbeat Respiratory/Chest Respiratory/Chest: Reports cough and dyspnea; Denies sputum Gastrointestinal Gastrointestinal: Denies abdominal pain, constipation, diarrhea, nausea or vomiting Genitourinary Genitourinary ED: Denies dysuria, hematuria or urinary frequency Musculoskeletal Musculoskeletal: Denies arthralgias, myalgias or neck pain Integumentary Denies abscess, Abrasions or rash Neurologic Neurologic: Denies headache(s), paresthesias or weakness Psychiatric Psychiatric: Denies anxiety, depression, suicidal ideation or suicidal thoughts Endocrine Endocrinology: Denies polydipsia or polyuria EXAM Physical Exam Const Vital Signs: 04/06/23 21:39 04/06/23 21:44 04/06/23 22:06 Temperature 98.2 F 98.2 F Temperature Source Oral Oral Pulse Rate 130 H 130 H Respiratory Rate 18 18 Blood Pressure 127/92 H 127/92 H Blood Pressure Mean 103 103 Pulse Ox 91 93 91 Oxygen Delivery Method Room Air Room Air Room Air Oxygen Flow Rate (L/min) 04/06/23 22:55 04/06/23 23:37 Temperature 98.2 F Temperature Source Oral Pulse Rate 124 H 118 H Respiratory Rate 27 H 22 H Blood Pressure 96/56 L 111/73 Blood Pressure Mean 69 85 Pulse Ox 97 95 Oxygen Delivery Method Nasal Cannula Nasal Cannula Oxygen Flow Rate (L/min) 2 2 Positive well nourished and well developed General Appearance ED: well developed HEENT Reports dry mucous membranes Mouth ED: Yes dry mucous membranes Mouth: dry mucous membranes Eyes PERRL and EOMs intact bilaterally General Eye ED: Negative for pale conjunctiva Neck no lymphadenopathy, supple and no meningeal signs Resp Auscultation: diminished lung sounds bilateral lower Cardio Rate: tachycardic Rhythm: abnormal rhythm irregularly irregular GI non-tender Extremity Extremity Narrative: Erythema noted to the right tibial region. There is increased warmth in this area General Extremety ED: Yes edema General Extremity: edema Neuro oriented x3 and CN's II-XII intact bilaterally Sensorium / Orientation: alert Psych mental status grossly normal Skin Skin Narrative: As described above MDM MDM MDM Narrative Medical decision making narrative: 82-year-old male presenting with generalized weakness, cough, dyspnea. Hypoxic on room air. He is placed on 2 L of nasal cannula. Differential includes ACS, CHF, pneumonia, COVID, influenza, dehydration, electro abnormalities, A-fib with RVR. CBC was obtained to assess white blood cell count, hemoglobin, platelets. BMP to assess renal function, electrolytes. High-sensitivity troponin and EKG were obtained to assess for ischemia/dysrhythmia. BNP to assess for CHF. Chest x-ray was obtained to assess for CHF or pneumonia. CBC shows white blood cell count 4. Today blood pressure 1.3. Platelets 131 for low. Creatinine normal 1.88. Electrolytes unremarkable. High-sensitivity troponin is 24. EKG initially looked like sinus tachycardia however on the monitor in the room he appears to be in A-fib. Patient given Cardizem 20 mg IV and given a liter normal saline. His initial blood pressure was 127/92 and this did drop into the 90s systolically after medication was given. His heart rate came down from 130 to 115?120. Patient states he feels well. BNP mildly elevated to 70.4. Chest x-ray my interpretation shows bilateral lower lobe pneumonia. Patient given Rocephin and azithromycin. Patient's blood pressure now stable at 111/73. Patient's pulse ox 95% on 2 L nasal cannula. Heart rate still 115-120. At this point I will give the patient has a liter of IV fluids. Discussed with the hospitalist for admission. I did add a D-dimer to his workup to assess for blood clot as the patient is at risk with hypoxia and being generally weak and bedridden for the last 2 weeks. D-dimer came back at 3.03. Will obtain a CTA of the chest. Patient will be admitted and this was followed. Impression: 1. Bilateral pneumonia 2. A-fib with RVR 3. Dehydration 4. Elevated D-dimer Lab Data Attestation: I reviewed the patient's lab results. Labs: Laboratory Results - last 24 hr 04/06/23 21:56 WBC 11.4 H RBC 4.26 L Hgb 14.3 Hct 43.3 MCV 101.6 H MCH 33.6 H MCHC 33.0 RDW Std Deviation 56.5 H RDW Coeff of Raina 15.1 H Plt Count 131 L MPV 10.7 Immature Gran % (Auto) 0.300 Neut % (Auto) 93.2 H Lymph % (Auto) 1.8 L Dewitt % (Auto) 4.1 Eos % (Auto) 0.2 Baso % (Auto) 0.4 Absolute Neuts (auto) 10.6 H Absolute Lymphs (auto) 0.21 L Nucleated RBC % 0 Differential Comment D-Dimer Quant (PE/DVT) 3.03 H* Sodium 142 Potassium 4.4 Chloride 110 H Carbon Dioxide 27.0 Anion Gap 5 BUN 22 H Creatinine 0.88 Estim Creat Clear Calc 65.67 Est GFR (MDRD) Af Amer 106 Est GFR (MDRD) Non-Af 87 BUN/Creatinine Ratio 24.9 H Glucose 96 Calcium 11.2 H Troponin I High Sens 24 B-Natriuretic Peptide 270.4 H Radiography Diagnostic Testing: Clinical Impression(s) from Imaging Studies Chest X-Ray 04/06/23 22:07 IMPRESSION: Bilateral lower lobe airspace disease which may represent pneumonia. Electronically Signed: Harinder Cristina MD at 22:36 EST , Discharge Plan Triage Chief Complaint: Shortness of Breath ED Provider: Geraldo Weber Dx/Rx/DC Orders Primary Care Provider: Ricky Bradley
[2023-04-06] MEDS: dilTIAZem 25 MG/5 ML Vial 20 MG IV BOLUS (22:23)
--- OUTSIDE RECORDS SUMMARY | 2023-04-06 22:33 | XMS RPT_ITS | CCD ---
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 Work Phone: [facility] 06-01-2022 15:16-0500 Diastolic blood pressure 92 mm[Hg] Treatment Wstr Work Phone: [facility] 06-01-2022 15:16-0500 Heart rate 75 /min Treatment Wstr Work Phone: [facility] 06-01-2022 15:16-0500 Respiratory rate 16 /min Treatment Wstr Work Phone: [facility] 06-01-2022 15:16-0500 SaO2% (BldA) [Mass fraction] 100 % Treatment Wstr Work Phone: [facility] 06-01-2022 15:16-0500 Systolic blood pressure 129 mm[Hg] Treatment Wstr Work Phone: [facility] 05-30-2022 15:00-0500 Body temperature 96.91 [degF] Treatment Wstr Work Phone: [facility] 05-30-2022 15:00-0500 Diastolic blood pressure 74 mm[Hg] Treatment Wstr Work Phone: [facility] 05-30-2022 15:00-0500 Heart rate 73 /min Treatment Wstr Work Phone: [facility] 05-30-2022 15:00-0500 Respiratory rate 18 /min Treatment Wstr Work Phone: [facility] 05-30-2022 15:00-0500 SaO2% (BldA) [Mass fraction] 100 % Treatment Wstr Work Phone: [facility] 05-30-2022 15:00-0500 Systolic blood pressure 131 mm[Hg] Treatment Wstr Work Phone: [facility] 05-27-2022 14:37-0500 Body temperature 97.2 [degF] Treatment Wstr Work Phone: [facility] 05-27-2022 14:37-0500 Diastolic blood pressure 74 mm[Hg] Treatment Wstr Work Phone: [facility] 05-27-2022 14:37-0500 Heart rate 91 /min Treatment Wstr Work Phone: [facility] 05-27-2022 14:37-0500 Respiratory rate 16 /min Treatment Wstr Work Phone: [facility] 05-27-2022 14:37-0500 SaO2% (BldA) [Mass fraction] 98 % Treatment Wstr Work Phone: [facility] 05-27-2022 14:37-0500 Systolic blood pressure 136 mm[Hg] Treatment Wstr Work Phone: [facility] 05-25-2022 15:01-0500 Body temperature 97.59 [degF] Treatment Wstr Work Phone: [facility] 05-25-2022 15:01-0500 Diastolic blood pressure 90 mm[Hg] Treatment Wstr Work Phone: [facility] 05-25-2022 15:01-0500 Heart rate 88 /min Treatment Wstr Work Phone: [facility] 05-25-2022 15:01-0500 Respiratory rate 18 /min Treatment Wstr Work Phone: [facility] 05-25-2022 15:01-0500 SaO2% (BldA) [Mass fraction] 99 % Treatment Wstr Work Phone: [facility] 05-25-2022 15:01-0500 Systolic blood pressure 151 mm[Hg] Treatment Wstr Work Phone: [facility] 05-18-2022 15:03-0500 Body temperature 97.2 [degF] Treatment Wstr Work Phone: [facility] 05-18-2022 15:03-0500 Diastolic blood pressure 72 mm[Hg] Treatment Wstr Work Phone: [facility] 05-18-2022 15:03-0500 Heart rate 87 /min Treatment Wstr Work Phone: [facility] 05-18-2022 15:03-0500 Systolic blood pressure 144 mm[Hg] Treatment Wstr Work Phone: [facility] 05-16-2022 15:30-0500 Body temperature 96.6 [degF] Treatment Wstr Work Phone: [facility] 05-16-2022 15:30-0500 Diastolic blood pressure 77 mm[Hg] Treatment Wstr Work Phone: [facility] 05-16-2022 15:30-0500 Heart rate 86 /min Treatment Wstr Work Phone: [facility] 05-16-2022 15:30-0500 Respiratory rate 16 /min Treatment Wstr Work Phone: [facility] 05-16-2022 15:30-0500 SaO2% (BldA) [Mass fraction] 98 % Treatment Wstr Work Phone: [facility] 05-16-2022 15:30-0500 Systolic blood pressure 147 mm[Hg] Treatment Wstr Work Phone: [facility] 05-11-2022 14:54-0500 Body temperature 97.11 [degF] Treatment Wstr Work Phone: [facility] 05-11-2022 14:54-0500 Diastolic blood pressure 69 mm[Hg] Treatment Wstr Work Phone: [facility] 05-11-2022 14:54-0500 Heart rate 70 /min Treatment Wstr Work Phone: [facility] 05-11-2022 14:54-0500 SaO2% (BldA) [Mass fraction] 96 % Treatment Wstr Work Phone: [facility] 05-11-2022 14:54-0500 Systolic blood pressure 126 mm[Hg] Treatment Wstr Work Phone: [facility] 05-06-2022 14:55-0500 Body temperature 97.81 [degF] Treatment Wstr Work Phone: [facility] 05-06-2022 14:55-0500 Diastolic blood pressure 68 mm[Hg] Treatment Wstr Work Phone: [facility] 05-06-2022 14:55-0500 Heart rate 61 /min Treatment Wstr Work Phone: [facility] 05-06-2022 14:55-0500 SaO2% (BldA) [Mass fraction] 100 % Treatment Wstr Work Phone: [facility] 05-06-2022 14:55-0500 Systolic blood pressure 128 mm[Hg] Treatment Wstr Work Phone: [facility] 05-05-2022 15:19-0500 Body temperature 97.2 [degF] Ricky Bradley MD Work Phone: [facility] 05-05-2022 15:19-0500 Body weight 111.58 kg Ricky Bradley MD Work Phone: [facility] 05-05-2022 15:19-0500 Diastolic blood pressure 64 mm[Hg] Ricky Bradley MD Work Phone: [facility] 05-05-2022 15:19-0500 Heart rate 76 /min Ricky Bradley MD Work Phone: [facility] 05-05-2022 15:19-0500 Respiratory rate 16 /min Ricky Bradley MD Work Phone: [facility] 05-05-2022 15:19-0500 Systolic blood pressure 114 mm[Hg] Ricky Bradley MD Work Phone: [facility] 05-02-2022 13:19-0500 Body height 170.2 cm Ingrid Morales PA-C Work Phone: [facility] 05-02-2022 13:19-0500 Body temperature 98.91 [degF] Ingrid Andrew PA-C Work Phone: [facility] 05-02-2022 13:19-0500 Body weight 114.31 kg Ingrid Andrew PA-C Work Phone: [facility] 05-02-2022 13:19-0500 Diastolic blood pressure 80 mm[Hg] Ingrid Andrew PA-C Work Phone: [facility] 05-02-2022 13:19-0500 Heart rate 110 /min Ingrid Winterville PA-C Work Phone: [facility] 05-02-2022 13:19-0500 SaO2% (BldA) [Mass fraction] 94 % Ingrid Winterville PA-C Work Phone: [facility] 05-02-2022 13:19-0500 Systolic blood pressure 140 mm[Hg] Ingrid Andrew PA-C Work Phone: [facility] 03-22-2022 15:04-0500 Body temperature 98.01 [degF] Yuniel Masci DO Work Phone: [facility] 03-22-2022 15:04-0500 Body weight 110.9 kg Yuniel Masci DO Work Phone: [facility] 03-22-2022 15:04-0500 Diastolic blood pressure 81 mm[Hg] Yuniel Masci DO Work Phone: [facility] 03-22-2022 15:04-0500 Heart rate 93 /min Yuniel Masci DO Work Phone: [facility] 03-22-2022 15:04-0500 Systolic blood pressure 134 mm[Hg] Yuniel Masci DO Work Phone: [facility] 01-31-2022 13:57-0400 Body temperature 97.39 [degF] Ricky Bradley MD Work Phone: [facility] 01-31-2022 13:57-0400 Body weight 112.95 kg Ricky Bradley MD Work Phone: [facility] 01-31-2022 13:57-0400 Diastolic blood pressure 56 mm[Hg] Ricky Bradley MD Work Phone: [facility] 01-31-2022 13:57-0400 Heart rate 64 /min Ricky Bradley MD Work Phone: [facility] 01-31-2022 13:57-0400 Respiratory rate 16 /min Ricky Bradley MD Work Phone: [facility] 01-31-2022 13:57-0400 Systolic blood pressure 108 mm[Hg] Ricky Bradley MD Work Phone: [facility] 01-26-2022 10:50-0400 Body temperature 97.81 [degF] Leda Traylorman-Pedersen PT Work Phone: [facility] 01-26-2022 10:50-0400 Diastolic blood pressure 58 mm[Hg] Leda Traylorman-Pedersen PT Work Phone: [facility] 01-26-2022 10:50-0400 Heart rate 62 /min Leda Halderman-Pedersen PT Work Phone: [facility] 01-26-2022 10:50-0400 Respiratory rate 16 /min Leda Halderman-Pedersen PT Work Phone: [facility] 01-26-2022 10:50-0400 SaO2% (BldA) [Mass fraction] 99 % Leda Cassidyderman-Pedersen PT Work Phone: [facility] 01-26-2022 10:50-0400 Systolic blood pressure 112 mm[Hg] Leda Halderman-Pedersen PT Work Phone: [facility] 01-24-2022 09:59-0400 Body temperature 98.6 [degF] Raquel Shelly ROLLER HELPER Work Phone: [facility] 01-24-2022 09:59-0400 Diastolic blood pressure 60 mm[Hg] Raquel Shelly ROLLER HELPER Work Phone: [facility] 01-24-2022 09:59-0400 Heart rate 68 /min Raquel Shelly ROLLER HELPER Work Phone: [facility] 01-24-2022 09:59-0400 Respiratory rate 18 /min Raquel Shelly ROLLER HELPER Work Phone: [facility] 01-24-2022 09:59-0400 SaO2% (BldA) [Mass fraction] 99 % Raquel Shelly ROLLER HELPER Work Phone: [facility] 01-24-2022 09:59-0400 Systolic blood pressure 112 mm[Hg] Raquel Shelly ROLLER HELPER Work Phone: [facility] 01-21-2022 14:40-0400 Body temperature 98.01 [degF] Raquel Shelly ROLLER HELPER Work Phone: [facility] 01-21-2022 14:40-0400 Diastolic blood pressure 60 mm[Hg] Raquel Shelly ROLLER HELPER Work Phone: [facility] 01-21-2022 14:40-0400 Heart rate 64 /min Raquel Shelly ROLLER HELPER Work Phone: [facility] 01-21-2022 14:40-0400 Respiratory rate 18 /min Raquel Shelly ROLLER HELPER Work Phone: [facility] 01-21-2022 14:40-0400 SaO2% (BldA) [Mass fraction] 98 % Raquel Shelly ROLLER HELPER Work Phone: [facility] 01-21-2022 14:40-0400 Systolic blood pressure 110 mm[Hg] Raquel Shelly ROLLER HELPER Work Phone: [facility] 01-13-2022 11:50-0400 Body temperature 98.2 [degF] Jacquelin Jimenez PT Work Phone: [facility] 01-13-2022 11:50-0400 Diastolic blood pressure 60 mm[Hg] Jacquelin Jimenez PT Work Phone: [facility] 01-13-2022 11:50-0400 Heart rate 68 /min Jacquelin Jimenez PT Work Phone: [facility] 01-13-2022 11:50-0400 Respiratory rate 16 /min Jacquelin Jimenez PT Work Phone: [facility] 01-13-2022 11:50-0400 SaO2% (BldA) [Mass fraction] 100 % Jacquelin Merrittox PT Work Phone: [facility] 01-13-2022 11:50-0400 Systolic blood pressure 120 mm[Hg] Jacquelin Jimenez PT Work Phone: [facility] 01-11-2022 09:04-0400 Body temperature 97.39 [degF] Raquel Shelly ROLLER HELPER Work Phone: [facility] 01-11-2022 09:04-0400 Diastolic blood pressure 64 mm[Hg] Raquel Shelly ROLLER HELPER Work Phone: [facility] 01-11-2022 09:04-0400 Heart rate 63 /min Raquel Shelly ROLLER HELPER Work Phone: [facility] 01-11-2022 09:04-0400 Respiratory rate 18 /min Raquel Shelly ROLLER HELPER Work Phone: [facility] 01-11-2022 09:04-0400 SaO2% (BldA) [Mass fraction] 97 % Raquel Shelly ROLLER HELPER Work Phone: [facility] 01-11-2022 09:04-0400 Systolic blood pressure 112 mm[Hg] Raquel Shelly ROLLER HELPER Work Phone: [facility] 01-05-2022 10:00-0400 Diastolic blood pressure 60 mm[Hg] Leda Christensen PT Work Phone: [facility] 01-05-2022 10:00-0400 Heart rate 78 /min Leda Christensen PT Work Phone: [facility] 01-05-2022 10:00-0400 Respiratory rate 18 /min Leda Christensen PT Work Phone: [facility] 01-05-2022 10:00-0400 SaO2% (BldA) [Mass fraction] 99 % Leda Christensen PT Work Phone: [facility] 01-05-2022 10:00-0400 Systolic blood pressure 108 mm[Hg] Leda Christensen PT Work Phone: [facility] 01-05-2022 09:10-0400 Body temperature 97.9 [degF] Leda Christensen PT Work Phone: [facility] 01-03-2022 14:13-0400 Body temperature 97.39 [degF] Raquel Shelly ROLLER HELPER Work Phone: [facility] 01-03-2022 14:13-0400 Diastolic blood pressure 68 mm[Hg] Raquel Shelly ROLLER HELPER Work Phone: [facility] 01-03-2022 14:13-0400 Heart rate 76 /min Raquel Shelly ROLLER HELPER Work Phone: [facility] 01-03-2022 14:13-0400 Respiratory rate 18 /min Raquel Shelly ROLLER HELPER Work Phone: [facility] 01-03-2022 14:13-0400 SaO2% (BldA) [Mass fraction] 99 % Raquel Shelly ROLLER HELPER Work Phone: [facility] 01-03-2022 14:13-0400 Systolic blood pressure 118 mm[Hg] Raquel Shelly ROLLER HELPER Work Phone: [facility] 12-31-2021 02:30-0400 Body temperature 97.3 [degF] Leda Christensen PT Work Phone: [facility] 12-31-2021 02:30-0400 Diastolic blood pressure 50 mm[Hg] Leda Christensen PT Work Phone: [facility] 12-31-2021 02:30-0400 Heart rate 55 /min Leda Christensen PT Work Phone: [facility] 12-31-2021 02:30-0400 Respiratory rate 16 /min Leda Christensen PT Work Phone: [facility] 12-31-2021 02:30-0400 SaO2% (BldA) [Mass fraction] 99 % Leda Christensen PT Work Phone: [facility] 12-31-2021 02:30-0400 Systolic blood pressure 100 mm[Hg] Leda Christensen PT Work Phone: [facility] 12-28-2021 14:04-0400 Body temperature 98.2 [degF] Raquel Shelly ROLLER HELPER Work Phone: [facility] 12-28-2021 14:04-0400 Diastolic blood pressure 78 mm[Hg] Raquel Shelly ROLLER HELPER Work Phone: [facility] 12-28-2021 14:04-0400 Heart rate 78 /min Raquel Shelly ROLLER HELPER Work Phone: [facility] 12-28-2021 14:04-0400 Respiratory rate 18 /min Raquel Shelly ROLLER HELPER Work Phone: [facility] 12-28-2021 14:04-0400 SaO2% (BldA) [Mass fraction] 97 % Raquel Shelly ROLLER HELPER Work Phone: [facility] 12-28-2021 14:04-0400 Systolic blood pressure 134 mm[Hg] Raquel Shelly ROLLER HELPER Work Phone: [facility] 12-23-2021 10:35-0400 Body temperature 97.81 [degF] Raquel Shelly ROLLER HELPER Work Phone: [facility] 12-23-2021 10:35-0400 Diastolic blood pressure 70 mm[Hg] Raquel Shelly ROLLER HELPER Work Phone: [facility] 12-23-2021 10:35-0400 Heart rate 56 /min Raquel Shelly ROLLER HELPER Work Phone: [facility] 12-23-2021 10:35-0400 Respiratory rate 18 /min Raquel Shelly ROLLER HELPER Work Phone: [facility] 12-23-2021 10:35-0400 SaO2% (BldA) [Mass fraction] 98 % Raquel Cobosion ROLLER HELPER Work Phone: [facility] 12-23-2021 10:35-0400 Systolic blood pressure 126 mm[Hg] Raquel Cobosion ROLLER HELPER Work Phone: [facility] 12-21-2021 10:30-0400 Body temperature 97.3 [degF] Leda Halderman-Pedersen PT Work Phone: [facility] 12-21-2021 10:30-0400 Diastolic blood pressure 60 mm[Hg] Leda Halderman-Pedersen PT Work Phone: [facility] 12-21-2021 10:30-0400 Heart rate 68 /min Leda Halderman-Pedersen PT Work Phone: [facility] 12-21-2021 10:30-0400 Respiratory rate 18 /min Leda Halderman-Pedersen PT Work Phone: [facility] 12-21-2021 10:30-0400 SaO2% (BldA) [Mass fraction] 99 % Leda Halderman-Pedersen PT Work Phone: [facility] 12-21-2021 10:30-0400 Systolic blood pressure 110 mm[Hg] Leda Halderman-Pedersen PT Work Phone: [facility] 12-17-2021 15:20-0400 Body temperature 97.9 [degF] Leda Halderman-Pedersen PT Work Phone: [facility] 12-17-2021 15:20-0400 Diastolic blood pressure 64 mm[Hg] Leda Halderman-Pedersen PT Work Phone: [facility] 12-17-2021 15:20-0400 Heart rate 73 /min Leda Halderman-Pedersen PT Work Phone: [facility] 12-17-2021 15:20-0400 Respiratory rate 18 /min Leda Halderman-Pedersen PT Work Phone: [facility] 12-17-2021 15:20-0400 SaO2% (BldA) [Mass fraction] 99 % Leda Fermin PT Work Phone: [facility] 12-17-2021 15:20-0400 Systolic blood pressure 112 mm[Hg] Leda Christensen PT Work Phone: [facility] 11-04-2021 09:46-0400 Body temperature 97.59 [degF] Ricky Bradley MD Work Phone: [facility] 11-04-2021 09:46-0400 Body weight 113.4 kg Ricky Bradley MD Work Phone: [facility] 11-04-2021 09:46-0400 Diastolic blood pressure 66 mm[Hg] Ricky Bradley MD Work Phone: [facility] 11-04-2021 09:46-0400 Heart rate 60 /min Ricky Bradley MD Work Phone: [facility] 11-04-2021 09:46-0400 Respiratory rate 16 /min Ricky Bradley MD Work Phone: [facility] 11-04-2021 09:46-0400 Systolic blood pressure 130 mm[Hg] Ricky Bradley MD Work Phone: [facility] 07-06-2021 12:24-0400 Diastolic blood pressure 76 mm[Hg] Mi Nurse Work Phone: [facility] 07-06-2021 12:24-0400 Heart rate 62 /min Mi Nurse Work Phone: [facility] 07-06-2021 12:24-0400 Systolic blood pressure 128 mm[Hg] Mi Nurse Work Phone: [facility] Encounters Encounter Date Encounter Type Care Provider Facility Start: 03-17-2023 Telephone encounter Herminia Begum RNdetonator maker Procedures Date Procedure Procedure Detail Performing Clinician Start: 01-16-2023 Mri abdomen w/o & w/contrast material Bubba Sykes MD Work Phone: Start: 09-28-2022 Colonoscopy RICKY TORRES Start: 07-26-2022 Mri abdomen w/o & w/contrast material Kai Alvarado PA-C Work Phone: Start: 03-25-2022 Us abdominal real ti me w/image limited Yuniel A Vini DO Work Phone: Plan of Treatment Date Care Activity Detail Author Start: 12-27-2026 Urine microalbumin profile [facility] Immunizations Immunization Date Immunization Notes Care Provider Fa cili 02-14-2022 influenza, high dose seasonal, preservative-free Ricky Bradley MD Work Phone: [facility] Work Phone: 02-14-2022 influenza virus vacc ine, unspecified formulation Treatment Wstr Work Phone: [facility] 04-14-2021 COVID-19 vaccine, ag e 12+ yr (PFIZER-BIONTECH - PURPLE TOP) Mi Nurse Work Phone: [facility] Work Phone: 04-07-2021 influenza (aIIV4) vaccine, age 65+ yr, quadrivalent, PF (FLUAD QUADRIVALENT) Mi Nurse Work Phone: [facility] Work Phone: 06-02-2020 COVID-19 vaccine, ag e 12+ yr (PFIZER-BIONTECH - PURPLE TOP) Mi Nurse Work Phone: [facility] Work Phone: 05-12-2020 COVID-19 vaccine, ag e 12+ yr (PFIZER-BIONTECH - PURPLE TOP) Mi Nurse Work Phone: [facility] Work Phone: 02-27-2020 influenza, high dose seasonal, preservative-free Mi Nurse Work Phone: [facility] Work Phone: 02-18-2019 influenza, high dose seasonal, preservative-free Mi Nurse Work Phone: [facility] 01-15-2019 influenza, seasonal, injectable, preservative free Mi Nurse Work Phone: [facility] Work Phone: 03-02-2018 zoster vaccine recombinant Mi Nurse Work Phone: [facility] Work Phone: 02-19-2018 influenza, high dose seasonal, preservative-free Mi Nurse Work Phone: [facility] 01-01-2018 zoster vaccine recombinant Mi Nurse Work Phone: [facility] Work Phone: 12-15-2017 pneumococcal polysaccharide vaccine, 23 valent Ricky Bradley MD Work Phone: [facility] Work Phone: 12-27-2016 influenza, high dose seasonal, preservative-free Mi Nurse Work Phone: [facility] 12-27-2016 pneumococcal conjuga te vaccine, 13 valbruna Bradley MD Work Phone: [facility] Work Phone: 12-27-2016 tetanus and diphther ia toxoids, adsorbed, preservative free, for adult use (5 Lf of tetanus toxoid and 2 Lf of diphtheria toxoid) Ut Nurse Work Phone: [facility] 12-27-2016 tetanus toxoid, redu magali diphtheria toxoid, and acellular pertussis vaccine, adsorbed Mi Nurse Work Phone: [facility] Work Phone: 02-11-2015 influenza, high dose seasonal, preservative-free Mi Nurse Work Phone: [facility] 01-15-2015 pneumococcal conjuga te vaccine, 13 valbruna Bradley MD Work Phone: [facility] Work Phone: 05-28-2014 pneumococcal conjuga te vaccine, 13 valent Mi Nurse Work Phone: [facility] 04-09-2014 influenza, seasonal, injectable Mi Nurse Work Phone: [facility] 02-27-2013 influenza virus vacc ine, unspecified formulation Mi Nurse Work Phone: [facility] 01-22-2011 influenza virus vacc ine, unspecified formulation Mi Nurse Work Phone: [facility] Work Phone: 04-23-2008 influenza virus vacc ine, unspecified formulation Mi Nurse Work Phone: [facility] Work Phone: 03-14-2007 influenza virus vacc ine, unspecified formulation Mi Nurse Work Phone: [facility] 10-03-2006 tetanus and diphther ia toxoids, adsorbed, preservative free, for adult use (2 Lf of tetanus toxoid and 2 Lf of diphtheria toxoid) Mi Nurse Work Phone: [facility] 02-20-2006 influenza virus vacc ine, unspecified formulation Mi Nurse Work Phone: [facility] Work Phone: 02-20-2006 pneumococcal polysaccharide vaccine, 23 valent Mi Nurse Work Phone: [facility] Work Phone: 02-24-2005 influenza virus vacc ine, unspecified formulation Ut Nurse Work Phone: [facility] Work Phone: Payers Date Payer Category Payer Unknown MMO MMO MEDICARE SUPPLEMENT [id number] 2019-Present [phone] [address] [place] [address] Indemnity [id number] 2019 Unknown MMO MMO MEDICARE SUPPLEMENT [id number] 2019-Present [phone] [address] [place] [address] Indemnity [id number] 2019 Unknown [id number] 2004 Medicare 2004 Medicare MEDICARE MEDICAR E A AND B [id number] 2004-Present [phone] [place] [address] Medicare [id number] 2004 Medicare [id number] Medicare [id number] Social History Date Type Detail Facility [facility] Work Phone: Start: 07-06-2021 End: 03-13-2023 Alcohol intake Current non-drinker of alcohol (finding) [facility] Start: 05-07-2021 End: 05-05-2022 History SDOH Alcohol Frequency 1 [facility] Start: 05-07-2021 End: 05-05-2022 History SDOH Social Connections Phone 5 [facility] Start: 05-07-2021 End: 05-05-2022 History SDOH Social Connections Get Together 4 [facility] Start: 05-07-2021 End: 05-05-2022 History SDOH Social Connections Confucianism 3 [facility] Start: 1940 Sex Assigned At Not on file C [facility] Start: 10-25-2021 End: 02-28-2022 Exposure to SARS-CoV-2 (event) Not sure [facility] Work Phone: Start: 05-05-2022 History SDOH Alcohol Std Drinks 0 [facility] Start: 05-05-2022 History SDOH Social Connections Get Together 2 [facility] Start: 05-05-2022 History SDOH Social Connections Membership 98 [facility] Start: 05-05-2022 End: 08-19-2022 [facility] Start: 05-05-2022 End: 08-19-2022 Social connection and isolation panel [facility] Do you belong to any clubs or organizations such as yarsanism groups, unions, fraternal or athletic groups, or school groups? Patient refused [facility] Are you now , , , , never or living with a partner? [facility] How often to you hav e a drink containing alcohol? Never [facility] (I/We) worried wheth er (my/our) food would run out before (I/we) got money to buy more. DK or Refused [facility] In the past 12 month s, was there a time when you were not able to pay the mortgage or rent on time? No [facility] Do you belong to any clubs or organizations such as yarsanism groups, unions, fraternal or athletic groups, or school groups? Yes [facility] Work Phone: Are you now , , , , never or living with a partner? [facility] Work Phone: Do you feel stress - tense, restless, nervous, or anxious, or unable to sleep at night because your mind is troubled all the time - these days [OSQ] Not at all [facility] Work Phone: Medical Equipment Procedure Code Equipment Code Equipment Origin al Text Equipment Identifier Dates Heber Ptfe 1.2 Cm X 10 Cm - [id number] Start: 01-18-2011 Clinical Notes 10-02-2018 to 03-17-2023 Telephone Encounter - Herminia Begum RN - 03/17/2023 4:36 PM Haley Jorge MD - 02/02/2023 2:25 PM Vandana Guerrero RT(R) - 01/16/2023 10:00 AM Yuniel Razo DO - 12/09/2022 3:54 PM EDT Note Date & Type Note Facility 03-17-2023 Miscellaneous Notes Attempted to reach the patient at the contact number that they provided [phone] (home) . 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 was left informing the patient/patient eligibility services representative they must have a responsible adult accompany them to their procedure; and remain in the endoscopy area until they are discharged. Failure to have a responsible adult accompany the patient to their procedure appointment prevents the use of sedation or anesthesia for their procedure; and can result in cancellation of the procedure NPO instructions were reviewed. Instructions to contact their primary care provider regarding their medications and which medications to stop in preparation for their procedure Instructions to completely read and follow the written instructions that they recieved regarding their procedure. 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 He is doing well otherwise, no liver-related symptoms to report Has been having melenic stool for the last few weeks, also with some hematochezia. Has been requiring iron transfusions lately. Is more fatigued lately since this started. Patient does not want to pursue colonoscopy- had one in 09/2022 with 1.4 cm TVA removed, EGD with small non-bleeding AVM which was cauterized Last clinic visit: Long-standing history of NAFLD Diagnosed with presumed [facility]-related cirrhosis (given his risk factors) in 03/2022 on further workup of anemia. Saw hematology/oncology for this, eventually had liver imaging which noted a mass in 03/2022, recent MRI in July with cirrhosis along with a 4.1 cm HCC in seg 4A Case discussed at tumor board and he was referred for SBRT (limited options given age, functional limitations, etc) He met with radiation oncology just recently and is eager to get treatment started With respect to his liver-related symptoms: Sleeps a lot in the daytime, not so much at night. Possibly a bit more confusion when he talks. Has at least 4-5 soft bowel movements/day, black as coal because he is taking iron supplements. No abdominal distention. Takes lasix for LE edema No jaundice, pruritis HCC history: Diagnosis date: 07/2021 Initial AFP: 8.5 Biopsy-proven?: no Imaging: MRI Within [place]: Yes CPT score: A ECOG performance status: 1 Treatment history: LT candidate: no Resection: no Locoregional therapy: getting SBRT Review of Systems: See note Past Medical/surgical/family History: unchanged Social History: Tobacco: denies EtOH: denies Substances: denies I have confirmed and edited as necessary, the PFSH and ROS obtained by others. Current Outpatient Medications on File Prior to Visit Medication Sig oxybutynin ER (DITROPAN XL) 15 mg 24 hr Extended Rel Tab Take 2 tablets by mouth once daily. furosemide (LASIX) 20 mg tablet TAKE 1 TABLET BY MOUTH EVERY OTHER RDAY Diaper,Brief, Adult,Disposable (DEPEND EASY FIT UNDERGARMENTS) 1 Each three times daily. ascorbic acid, vitamin C, (VITAMIN C) 500 mg tablet Take 1 tablet by mouth once daily. ascorbic acid-elderberry fruit 100-50 mg chew Take 2 tablets by mouth once daily. cyanocobalamin (VITAMIN B-12) 2,500 mcg tablet Take 2,500 mcg by mouth once daily. aspirin, enteric coated (ASPIRIN, ENTERIC COATED) 81 mg EC tablet Take 81 mg by mouth once daily. albuterol HFA (PROVENTIL HFA, VENTOLIN HFA) 90 mcg/actuation inhaler Inhale 2 Puffs as instructed every 4 hours as needed for wheezing/shortness of breath. omeprazole (PRILOSEC) 40 mg capsule Take 1 capsule by mouth once daily. allopurinol (ZYLOPRIM) 300 mg tablet Take 1 tablet by mouth once daily. magnesium oxide 400 mg magnesium cap Take 1 capsule by mouth once daily. fenofibrate nanocrystallized (TRICOR) 48 mg tablet Take 1 tablet by mouth once daily. sertraline (ZOLOFT) 50 mg tablet Take 1 tablet by mouth once daily. nitroglycerin sublingual (NITROQUICK) 0.4 mg SL tablet Dissolve 1 tablet under the tongue every 5 minutes as needed for chest pain. FOR CHEST PAIN. IF NO RELIEF CALL 911 fluticasone (FLONASE) 50 mcg/actuation nasal spray Use 1 Sewell in each nostril once daily. ferrous sulfate 325 mg (65 mg iron) EC tablet Take 1 tablet by mouth twice daily with meals. (Patient taking differently: Take 325 mg by mouth once daily.) fluticasone-vilanterol (BREO ELLIPTA) 200-25 mcg/dose inhaler Inhale 1 Inhalation as instructed once daily. Inhale one puff once daily. DO NOT CLICK OPEN UNTIL READY FOR DOSE multivitamin tablet Take 1 tablet by mouth once daily. torsemide (DEMADEX) 20 mg tablet Take 2 tablets by mouth once daily for 5 days. melatonin 10 mg tab Take 1 tablet by mouth as needed. amoxicillin (POLYMOX, AMOXIL) 500 mg capsule Take four tablets, one hour prior to dental work (Patient not taking: Reported on 08/10/2022) No current facility-administered medications on file prior to visit. Vitals: BP 118/89[Pt denies headaches nausea and dizziness[ Pulse 129[Afib[ Temp (Src) 97.8 (Temporal) Ht 5' 10 (1.78m) Wt 246 lb 9.6 oz (111.9kg) SpO2 98% BMI 35.38 kg/(m^2). Physical Exam: Well appearing, in NAD No jaundice Aox3 In a wheelchair Laboratory: MELD 3.0: 7 at 08/10/2022 10:07 AM MELD-Na: 8 at 08/10/2022 10:07 AM Calculated from: Serum Creatinine: 1.05 mg/dL at 08/10/2022 10:07 AM Serum Sodium: 139 mmol/L (Using max of 137 mmol/L) at 08/10/2022 10:07 AM Total Bilirubin: 0.5 mg/dL (Using min of 1 mg/dL) at 08/10/2022 10:07 AM Serum Albumin: 3.5 g/dL at 08/10/2022 10:07 AM INR(ratio): 1.1 at 08/10/2022 10:07 AM Age at listing (hypothetical): 82 years Sex: Male at 08/10/2022 10:07 AM Disclaimer: The MELD Calculator cannot calculate MELD scores for patients on dialysis. AFP Lab Results Component Value Date AFP <3.0 01/16/2023 Imaging: MRI Liver 07/2021: Lesion#: 1 Location: Segment Rahda; (series 15 image 19) Size (maximum long-axis dimension): 4.1 cm, Prior size: N/A Arterial Phase Hyperenhancement (APHE): Nonrim APHE Wash-out: Yes - non-peripheral Enhancing Capsule: Yes Threshold growth (50% or more growth in 6 months or less): N/A Ancillary features favoring malignancy or HCC: Fat in mass more than adjacent liver Ancillary features favoring benignity: N/A LI-RADS Category: LR-5 (definitely HCC) OPTN Class 5 Category:5B MRI Liver 01/2023 Decreased size of treated segment Radha lesion with enhancing internal septa (LR TR equivocal). No new hepatic lesion that meets LR 5/OPTN criteria for hepatocellular carcinoma. Cirrhotic liver morphology with findings of portal hypertension, unchanged. Endoscopy: EGD 09/2022: Findings: A 5 cm hiatal hernia was present. A single 6 mm angiodysplastic lesion with no bleeding was found on the lesser curvature of the stomach. Fulguration to ablate the lesion by argon plasma at 1.3 liters/minute and 35 rebolledo was successful. Diffuse moderate inflammation characterized by erythema was found in the gastric body and in the gastric antrum. Biopsies were taken with a cold forceps for histology. Multiple 7 mm sessile polyps with no bleeding and no stigmata of recent bleeding were found in the stomach. This was biopsied with a cold forceps for histology. The first portion of the duodenum and second portion of the duodenum were normal. 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 Discussed need for repeat EGD and colonoscopy but patient wants to defer repeat colonoscopy indefinitely Will send for EGD Repeat MRI 3 months RTC 3-4 months I spent a total of 45 minutes on the date of the service which included preparing to see the patient, [id number] patient care, completing clinical documentation, obtaining and/or reviewing separately obtained history, performing a medically appropriate examination, counseling and educating the patient/family/caregiver, ordering medications, tests, or procedures, and communicating with other HCPs (not separately reported). Haley Hampton MD Associate Staff, Department of Gastroenterology and Hepatology [facility] [place] documented in this encounter [facility] 01-18-2023 Note [facility] 01-16-2023 Note [facility] 01-16-2023 History of Present illness Narrative Radiology Service Progress Note DATE OF SERVICE: January 16, 2023 TIME: 10:47 AM PATIENT IDENTITY VERIFICATION COMPLETED USING TWO (2) STANDARD IDENTIFIERS: Name and Date of confirmed by patient verbally. FALL SCREENING: Has the patient had 2 falls in the last year or 1 fall with injury or currently using an Ambulatory Assistive Device (Walker, Cane, Wheelchair, Crutches, etc.)? Yes, Patient High Risk for Falls What interventions were put in place to prevent falls during this visit? Instructed Patient to Call for Help if Needed, Offered Assistance with Transfers/Clothing, Instructed Patient to Remain Seated (Not on Exam Table) Until Exam, and Increased Observations by Caregivers PATIENT GENDER DATA: Male PATIENT RELEVANT IMPLANT DATA REVIEWED: Yes ALLERGIES: Reviewed and unchanged CONTRAST ALLERGY: NO. EXAM: MRI - CONTRAST TYPE: GROUP II PERIPHERAL IV DATA: Ambulatory: A peripheral IV was started in the Right antecubital site with a Angio cath: 22 gauge. RADIOLOGY DEPARTMENT: MR; Exam(s) Completed: Body: Liver (routine) SIGNATURE: RT Nabeel(R) PATIENT NAME: Satya Medellin DATE: January 16, 2023 TIME: 10:47 AM documented in this encounter [facility] 01-06-2023 Miscellaneous Notes Referral form has been faxed to [facility] at number given below. Call to Ingris on Mobile and left vague message that referral form has been faxed to [facility]. Also called work number listed and left message as well notifying her with vague message. Adela Kaur Ma Please place referral, fax to [phone]. [facility] called and they have not received anything and pt is calling them. Also please call pt once referral has been faxed. Pt concerned because he needs to be seen meghana. Taylor Blevins LPN Please fax referral Jenny Aviles APRN.CNP Patient calls to check on status of request below. Patient reports wound is on left calf. Open area is the size of a quarter with yellowish green drainage. Redness around the wound is also about the width of another quarter. Patient not sure if wound is warm to touch. Denies fever. Declines appointment for eval with [facility]. Patient wants to go straight to wound center. Paradise Masterson RN Pt's daughter Ingris calling back to report wound is on pt's calf, she is not sure which calf, states it is about nickel to quarter size. Started Tues - 2 days ago. Has yellow drainage with redness around the opening. Denies fever. Please advise if referral will be made to the wound center. Eliza Garcia LPN Left message for JACQUELIN Amado Nurse to call with more info. Carol Robertson LPN Please call Ingris from [facility] for more information on this wound: location, etc. Jenny Aviles APRN.CNP Monique with [facility] calls to report that Ingris with [facility] called for appt for pt to be seen for yellow drainage from wound. Monique reports that pcp has to send order. Fax order to [facility]: [phone]. Akilah Barnett LPN documented in this encounter [facility] 12-29-2022 Miscellaneous Notes Michael spoke with daughter Ingris. Discussed patient currently receives 30 hour a week home care assistance from [place]. Patient also receives medical alert button courtesy of the [place]. Ingris notes that she is concerned regarding patient falls. Patient is adamant that he is not interested in going in to an AL. Ingris and Michael discussed that the [place] nurse that visits patient noted patient was not to the point of needing a guardian. Ingris and Michael also discussed caregiver support groups to help support her with taking care of patient. Ingris and Michael also discussed [employer] being an agency if patient is ever open to going to AL looking at options. Discussed also that patient can make choice to stay at home as he so chooses. Ingris notes that she understands that, but it is difficult with being concerned about number of falls. Michael also noted that there is APS through [facility] for older adults if and when they should proceed to inability to care for self and have cognitive decline issues. Michael is aware that patient is not to that point. Just wanting to educate daughter on services available in the community. Ingris notes that she will reach out to [facility] and see if they have any other service and supports that they could provide patient. [facility]. This would just be for any extra service ideas such as support daughter as caregiver. Ingris thanked Michael for community social service information. Michael received message back from patient daughter requesting call back. Michael called daughter back and left message that she will reach out and call daughter Ingris today @1pm. Sw left message for daughter Ingris to return Sw call to discuss community resources for patient care needs. Refer to CONTACT LENS TECHNICIAN for options for more home care or support. Pt's daughter calls to report that pt is falling more and forgetful more. Daughter reports pt fell three times in eight days and needed help to get up. Daughter reports pt does not want daughter to come to [facility] anymore because it's none of her business . Daughter is concerned pt is not being truthful to dr. Daughter has tried to discuss Assisted Living with pt but pt is adamant that he is not leaving his house. Daughter reports she does have a program attendant come to pt's home for five hours six days a week but it is getting to the point where someone needs to be there more. Daughter is asking if pcp has any recommendations on what to do. Daughter is aware that pcp is out of the office this week. Akilah Barnett LPN documented in this encounter [facility] 12-12-2022 Miscellaneous Notes Detailed VM left on pt's daughter identified voicemail of information below. Taylor Blevins LPN Patient's request for medication is as follows Requested Prescriptions Signed Prescriptions Disp Refills dilTIAZem CD (CARDIZEM CD, CARTIA XT) 120 mg 24 hr capsule 90 capsule 1 Sig: Take 1 capsule by mouth once daily. Authorizing Provider: RICKY BRADLEY metoprolol tartrate, short acting, (LOPRESSOR) 25 mg tablet 180 tablet 1 Sig: Take 1 tablet by mouth twice daily. Authorizing Provider: RICKY BRADLEY Order entered - please phone pharmacy and notify patient. Ricky Bradley MD Patient has been identified by name and date of : Yes, Provider Date Time Daughter phones for refill(s): Requested Prescriptions Pending Prescriptions Disp Refills dilTIAZem CD (CARDIZEM CD, CARTIA XT) 120 mg 24 hr capsule Sig: Take 1 capsule by mouth once daily. metoprolol tartrate, short acting, (LOPRESSOR) 25 mg tablet Sig: Take 1 tablet by mouth twice daily. Patient's daughter calling for refills. Says patient was in ER yesterday for his heart rate. She states he stopped taking medication due to no refills. She does not know if these were prescribed by PCP or [facility]. Date of last office visit with pcp: 11/04/22 Date of last office visit in primary care: Last 2 Encounter Wt Readings: Date: Wt: 11/04/2022 103.4 kg (228 lb) 09/28/2022 103.9 kg (229 lb) Previous labs/tests for medication: Blood Pressure: BUN (mg/dL) Date Value 08/10/2022 27 04/21/2021 28 Sodium (mmol/L) Date Value 08/10/2022 139 04/21/2021 139 Last 1 Encounter BP Readings: Date: BP: 11/04/2022 102/60 Please advise. Thank you. Krystal Johnson, RN 22 documented in this encounter [facility] 12-09-2022 Note [facility] 12-09-2022 History of Present illness Narrative Hematologic problem(s): 1) IgG kappa monoclonal gammopathy 2) BABATUNDE. 3) Liver mass. 4) Hypercalcemia. 5) Splenomegaly. 6) Cirrhosis. HPI: The patient is an 81 yo male with a PMH significant for HTN, polycystic kidney disease (seeing nephrology for ~15 years), HLD, aortic repair (bovine valve), CAD, DEMI (CPAP), asthma, hypercalcemia, splenomegaly (noted on CT chest 12/2013; spleen up to 18.4 cm in AP dimension; not enlarged on CT enterography 2014) and obesity. 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 Protein electrophoresis of the urine demonstrated no evidence of monoclonal spike. Urine protein creatinine ratio was elevated. Chemistry panel showed a creatinine of 1.33 mg/dL. Calcium mildly elevated 10.6 mg/dL. Vitamin D39.7 PTH 93.4 CBC significant for a total white count of 4900. No differential performed. Hemoglobin 9.0 g/dL. MCV 109. Platelet count 79,000. Protein electrophoresis of the serum revealed a M spike but no immunofixation was performed. 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 Worse over time. He's never been given an answer as to why. Balance is off and he uses wheeled walker. Lives alone in ranch house. Has home health aides for cleaning and [facility] clothes [facility]. Daughter lives close by and he gets meals on wheels. Was having left posterior hip pain and got relief with Absorsene Jr. - He received 10 doses of iron sucrose. Presents for ongoing hematologic management. Interim history: He offers no complaints today. Diagnosed radiographic HCC per MRI obtained 07/26/2022 showing a 4.1 cm tumor in segment 4A. Systemic staging, labs for classification (child Swain, MELD) pending. Tentatively intermediate stage per BCLC, cT2 N0 MX stage II per AJCC. COURSE: definitive and SBRT (stereotactic body radiotherapy) AREA TREATED: Segment 4a liver HCC. Current dose: 3000 cGy in 1 fx Planned dose: 3000 cGy in 1 fx Had colonoscopy and EGD in September 2022. A tubulovillous adenoma was removed from the sigmoid colon. On EGD biopsies of the stomach mucosa demonstrated gastric antral type mucosa with mild chronic inactive gastritis and reactive gastropathy. Fragments of gastric antral type mucosa with mild chronic inactive gastritis and reactive gastropathy. IHC for H. pylori was negative. Was found to be in atrial fibrillation when home nurse from [place] picked up irregular heart beat on pulse ox check. No symptoms. Was taken to [facility] ED. he was advised to increase low-dose aspirin to 3 times daily--but I cannot find documentation of this after careful review of the [facility] electronic medical record. He is not on anticoagulation because of thrombocytopenia and cirrhosis. Back in ED yesterday at the request of the [place] nurse due to variable heart rate. Was told in ED in and out of a fib. Sensory neuropathy symptoms subjectively stable. Previously seen by neurology group in [place]. Was told nothing to be done for neuropathy. He has not had any black stools. He says occasionally he has some bleeding from hemorrhoids. PHYSICAL EXAM: Vitals: Blood pressure 108/63, pulse 70, temperature 36.6 C (97.9 F), height 171 cm (5' 7.32 ), weight 109.8 kg (242 lb), SpO2 100 %. Fatigued-appearing and in no acute distress. EYES: Sclerae are anicteric bilaterally. LYMPHATIC: There is no palpable cervical or supraclavicular adenopathy. RESPIRATORY: Inspiratory breath sounds are of normal intensity in all ayala. CARDIOVASCULAR: Rhythm is regular today. ABDOMEN: The abdomen is obese but nondistended. Extremities: Bilateral lower extremity swelling. Right somewhat worse than left. Overlying pitting. Stable. SKIN: No jaundice. LABS: Component Latest Ref Rng & Units 12/29/2021 03/22/2022 05/02/2022 06/10/2022 WBC 3.70 - 11.00 k/uL 5.22 4.65 3.87 RBC 4.20 - 6.00 m/uL 3.27 (L) 3.73 (L) 3.63 (L) Hemoglobin 13.0 - 17.0 g/dL 10.9 (L) 11.1 (L) 11.8 (L) Hematocrit 39.0 - 51.0 % 34.6 (L) 36.0 (L) 36.2 (L) MCV 80.0 - 100.0 fL 105.8 (H) 96.5 99.7 MCH 26.0 - 34.0 pg 33.3 29.8 32.5 MCHC 30.5 - 36.0 g/dL 31.5 30.8 32.6 RDW-CV 11.5 - 15.0 % 15.0 16.9 (H) 20.0 (H) Platelet Count 150 - 400 k/uL 69 (L) 98 (L) 66 (L) MPV 9.0 - 12.7 fL 12.2 11.4 9.8 Neut% % 78.9 79.1 Abs Neut (ANC) 1.45 - 7.50 k/uL 3.67 3.06 Lymph% % 10.8 11.1 Abs Lymph 1.00 - 4.00 k/uL 0.50 (L) 0.43 (L) Esmeralda% % 5.6 6.2 Abs Esmeralda <0.87 k/uL 0.26 0.24 Eosin% % 3.4 2.8 Abs Eosin <0.46 k/uL 0.16 0.11 Baso% % 0.9 0.5 Abs Baso <0.11 k/uL 0.04 <0.03 Immature Gran % % 0.4 0.3 IMMATURE GRANS (ABS) <0.10 k/uL <0.03 <0.03 NRBC /100 WBC 0.0 0.0 Absolute nRBC <0.01 k/uL <0.01 <0.01 <0.01 DTYPE Auto Auto Iron 41 - 186 ug/dL 30 (L) 46 TIBC 232 - 386 ug/dL 370 360 Transferrin Saturation 15.0 - 57.0 % 8.1 (L) 12.8 (L) Ferritin 30.3 - 565.7 ng/mL 24.8 (L) 50.4 Component Latest Ref Rng & Units 10/27/2020 12/29/2021 03/22/2022 Protein, Total 6.3 - 8.0 g/dL 6.4 5.8 (L) 6.6 Albumin 3.9 - 4.9 g/dL 3.8 (L) 3.5 (L) 3.8 (L) Calcium 8.5 - 10.2 mg/dL 10.6 (H) 10.8 (H) 10.8 (H) Bilirubin, Total 0.2 - 1.3 mg/dL 0.5 0.4 0.5 Alkaline Phosphatase 38 - 113 U/L 62 85 111 AST 14 - 40 U/L 31 30 35 Glucose 74 - 99 mg/dL 103 (H) 108 (H) 98 BUN 9 - 24 mg/dL 26 (H) 33 (H) 27 (H) Creatinine 0.73 - 1.22 mg/dL 1.16 1.31 (H) 1.01 Sodium 136 - 144 mmol/L 141 140 135 (L) Potassium 3.7 - 5.1 mmol/L 4.8 5.5 (H) 4.0 Chloride 97 - 105 mmol/L 109 (H) 108 (H) 103 CO2 22 - 30 mmol/L 23 25 25 Anion Gap 9 - 18 mmol/L 9 7 (L) 7 (L) ALT 10 - 54 U/L 19 21 19 eGFR- >60 eGFR-All Other Races . >60 eGFR >=60 mL/min/1.73m 54 (L) 74 Component Latest Ref Rng & Units 03/22/2022 Cold Agglut, 4 degrees C <1:32 Dilutions <1:32 Cold Agglut, 37 degrees C Dilutions Test not indicated when titer is <1:32 at 4 degrees C. Component Latest Ref Rng & Units 03/22/2022 PT Sec <13.1 sec 10.9 PT INR 0.9 - 1.3 1.1 Pathologist Interpretation, CBCDIF Normocytic anemia with slight polychromasia . . . Pathologist (DEANDRE) Reviewed by Meche Bates M.D., Ph.D APTT 23.0 - 32.4 sec 26.2 Fibrinogen Ag 149 - 353 mg/dL 353 Component Latest Ref Rng & Units 03/22/2022 IgG 700 - 1,600 mg/dL 1,120 IgA 70 - 400 mg/dL 346 IgM 40 - 230 mg/dL 79 Component Latest Ref Rng & Units 03/22/2022 Albumin 3.43 - 5.41 g/dL 3.62 Alpha 1 Globulin 0.18 - 0.43 g/dL 0.32 Alpha 2 Globulin 0.42 - 0.98 g/dL 0.66 Beta Globulin 0.61 - 1.17 g/dL 0.87 Gamma Globulin 0.53 - 1.51 g/dL 1.12 Interpretation (Prot Electro) No definitive M protein is identified on protein electrophoresis. An M protein is identified on protein electrophoresis. (A) Interpretation Comment for Protein Electrophoresis See separate immunofixation report for characterization of monoclonal gammopathy. . . . M-Protein Location Gamma Fraction 1 M-Protein Concentration <=0.00 g/dL 0.30 (H) SPE Staff Review Reviewed by Charity Stephenson MD Component Latest Ref Rng & Units 03/22/2022 [place] Free, Serum 3.3 - 19.4 mg/L 65.0 (H) Lambda Free, Serum 5.7 - 26.3 mg/L 37.1 (H) K/L Ratio, Serum 0.26 - 1.65 1.75 (H) IgG kappa on immunofixation of serum. Component Latest Ref Rng & Units 05/02/2022 PTH, Intact 15 - 65 pg/mL 69 (H) PATHOLOGY: Bone marrow biopsy done at [facility] 05/05/2022: Hypercellular bone marrow with trilineage hematopoiesis. No evidence of lymphoproliferative disorder or plasma cell dyscrasia. Flow cytometry did not reveal evidence of lymphoproliferative disorder. There was no monoclonal plasma cell neoplasm. Plasma cells reported at 2% on aspirate. Iron was reported as rare stainable iron. Fluorescence in situ hybridization for BCR ABL was negative. 46 XY [20]. IMAGING: US 03/28/2022: IMPRESSION: 1. There is a new hyperechoic nodule in the right lobe of the liver which could be further evaluated by MRI 2. Nodular contour of the liver which may be due to cirrhosis 3. Splenomegaly Bone survey 03/24/2022: IMPRESSION: SEVERAL SUBCENTIMETER LUCENT AREAS IN THE CALVARIUM. DIFFUSE OSTEOPENIA. DEGENERATIVE CHANGES DESCRIBED. POSTOPERATIVE CHANGES DESCRIBED. NO ADDITIONAL FOCAL LYTIC OR BLASTIC ABNORMALITY IS APPRECIATED. ASSESSMENT/PLAN: (D47.2) MGUS (monoclonal gammopathy of unknown significance) (primary encounter diagnosis) (D47.2) IgG monoclonal gammopathy Assessment: -The patient is an 82-year-old male with a past medical history as outlined above. He has no history of diabetes but has longstanding worsening sensory neuropathy of the feet and left hand. He has polycystic kidney disease as well as chronic mild hypercalcemia with elevation of PTH and stable serum creatinine over time. Referred for possible serum monoclonal antibody on electrophoresis of the serum. Urine negative for monoclonal protein on electrophoresis. -Low-level IgG kappa monoclonal gammopathy. -Previous hypercalcemia secondary to hyperparathyroidism. -Bone survey revealed no lytic lesions. -Previously reviewed the results of the bone marrow biopsy in detail with the patient and his daughter. No evidence of smoldering myeloma or multiple myeloma. Plan: -Reassess in 6 months. (D50.0) Iron deficiency anemia due to chronic blood loss (D69.6) Thrombocytopenia (HCC) Assessment: -Responded very well to a course of parenteral iron. -No overt signs of GI bleeding. -He was not put on anticoagulation for atrial fibrillation due to thrombocytopenia. -Iron saturation low again. Ferritin decreasing. Plan: -Check B12, serum folate and TSH. -5 doses of iron sucrose. -Reassess 4 to 6 weeks after completing iron. (E21.3) Hyperparathyroidism (HCC) Assessment: -Serum PTH level elevated. Plan: -Defer management to PCP. (K74.69) Other cirrhosis of liver (HCC) Assessment: -Established with hepatology. -Diagnosed with HCC--received SBRT Plan: -Follow up with hepatology. Portions of this documentation were copied and pasted from previous office visit notes in order to provide a cohesive continuity of the history. The note has been reviewed and edited and updated as necessary. I spent a total of 30 minutes on the date of the service which included preparing to see the patient, [id number] patient care, completing clinical documentation, obtaining and/or reviewing separately obtained history, performing a medically appropriate examination, counseling and educating the patient/family/caregiver, ordering medications, tests, or procedures, communicating with other HCPs (not separately reported), and communicating results to the patient/family/caregiver. Yuniel Dahl DO documented in this encounter [facility] 11-29-2022 Miscellaneous Notes Noted. Brigida FERNANDES with [facility] calls to let provider know that patient HR was out side of their parameters today. HR 117 and then 44. At end of session it was 68. Asymptomatic. Dr. Charlton's office also notified. Patient missed his appointment with Dr. Charlton last week and will reschedule. Paradise Masterson RN documented in this encounter [facility] 11-04-2022 Note [facility] 11-03-2022 Miscellaneous Notes Wild PT calling from [facility] to report plan of care for patient and physical therapy will visit patient 2 times a week for 2 weeks and 1 time a week for 1 week. Physical therapy will work with patient on functional mobility. No call back needed. Radha Hernandez RN documented in this encounter [facility] 11-02-2022 Miscellaneous Notes Charity notified. PCP agrees and will follow Jenny Aviles APRN.KESHIA Charity MOE calling from [facility] to report plan of care for patient and SN will visit patient 1 times a week for five weeks. SN will work with patient on monitoring and education of new diagnosis of Afib. Charity needs verbal order for POC. After receives verbal order 485 form will be completed and faxed to provider at [phone]. Please call verbal order to Charity at [phone]. Paradise Masterson RN documented in this encounter [facility] 11-01-2022 Miscellaneous Notes Below response left on identified vm. Carol Robertson LPN I will follow HH. Deandra with [facility] HH calling. Patient discharging from [facility], diagnosis A-Fib, post-fall. Pt has orders for HH Nursing, PT and OT and asking if PCP willing to follow for these orders? They would like to start seeing patient tomorrow, on 11/02. Please call Deandra back with approval at [phone]. Teresa Woodward RN documented in this encounter [facility] 10-21-2022 Miscellaneous Notes Called and left a detailed voicemail notifying patient's daughter of providers message. Hospital phone number was left in case she had any questions. Ingrdi Dacosta RN Discuss at upcoming appointment later this month and for face to face requirement. Ingris, pt's daughter called and would like to get an order for OT home health. Pt's mobility is decreasing. Daughter will check to see which Home Health Agency is covered by pt's insurance.. She will call back. Taylor Blevins LPN documented in this encounter [facility] 09-30-2022 Miscellaneous Notes Appeal letter for fern faxed to [employer] appeal department for review. documented in this encounter [facility] 09-21-2022 Miscellaneous Notes Spoke with patient: Yes Confirmed date scheduled and patient report time: Yes Procedure Planned:Colonoscopy with or without biopsies based on clinical findings Esophagogastroduodenoscopy(EGD) with or without biopies based on clinical findings, removal of polyps or lesions Is the patient on blood thinners?no Procedure Instructions given to patient: Yes, and they verbalized their understanding of instructions given Patient instructed to take prescribed preparation prior to procedure:Yes, and they verbalized their understanding of instructions given Patient instructed to have family/friend present for procedure transport home:Patient/patient eligibility services representative was told that if they do not have a responsible adult accompany them to their procedure; and remain in the endoscopy area until they are discharged; that their procedure cannot be done with sedation or anesthesia and may be cancelled. and They verbalized their understanding and agree to have a responsible adult accompany the patient to their procedure and remain in the endoscopy area. Any barriers to Patient learning: Patient/Patient Dental Patient Coordinator responded appropriately on phone. Type of instruction given: Verbal by telephone contact. Shaneka Rudolph LPN documented in this encounter [facility] 09-20-2022 Note [facility] 09-20-2022 History of Present illness Narrative Q3 ODESSA Triage Note Pt scheduled for upcoming endoscopic evaluation in Q3. Chart reviewed, no apparent contraindication at this time based on Q3 Indications for Anesthesia Consult and OR Cases. Final Anesthesia review and clearance will be performed on the day of the procedure, this note does note serve as procedural clearance. Arnie Rodriguez PA-C documented in this encounter [facility] 09-19-2022 Miscellaneous Notes ROHINI Ingris/daughter, advised refill for Oxybutynin (Ditropan) was sent to [facility], 06/16/2022 for 180 tablets, 3 refills, 1 year supply. Ingris did not request refill for Lisinopril, does not want Patient taking, BP is already low and drops it lower. Only needing refill of Nitro. Patient has been identified by name and date of : Yes Ingris/daughter phones for refill(s): Requested Prescriptions Pending Prescriptions Disp Refills nitroglycerin sublingual (NITROQUICK) 0.4 mg SL tablet 25 tablet 1 Sig: Dissolve 1 tablet under the tongue every 5 minutes as needed for chest pain. FOR CHEST PAIN. IF NO RELIEF CALL 911 Date of last office visit in primary care: 07/04/2022 6 month follow-up: 11/04/2022 Last 2 Encounter Wt Readings: Date: Wt: 09/01/2022 103.9 kg (229 lb) 08/19/2022 107.3 kg (236 lb 9.6 oz) Previous labs/tests for medication: Blood Pressure: BUN (mg/dL) Date Value 08/10/2022 27 04/21/2021 28 Sodium (mmol/L) Date Value 08/10/2022 139 04/21/2021 139 Last 1 Encounter BP Readings: Date: BP: 09/01/2022 121/64 Please advise. Thank you. Carol Robertson LPN Patient was seen 07/04/[address] Bradley and the note on the encounter for patient other refill request states he was never seen in their office but he was. He was also asking for lisinopril in the last request but no one ever called the patient or responded. Patient has been identified by name and date of : Yes Requested Prescriptions Pending Prescriptions Disp Refills nitroglycerin sublingual (NITROQUICK) 0.4 mg SL tablet 25 tablet 1 Sig: Dissolve 1 tablet under the tongue every 5 minutes as needed for chest pain. FOR CHEST PAIN. IF NO RELIEF CALL 911 oxybutynin ER (DITROPAN XL) 15 mg 24 hr Extended Rel Tab 180 tablet 3 Sig: Take 2 tablets by mouth once daily. RX INSTRUCTIONS: Patient aware RX will be sent to pharmacy. No need to notify patient. Destiny Wadsworth Pss documented in this encounter [facility] 09-01-2022 Note [facility] 09-01-2022 Note [facility] 09-01-2022 History of Present illness Narrative SATYA MEDELLIN [id number] 09/01/2022 [facility] Department of Radiation Oncology [facility] RADIATION ONCOLOGY: COMPLETION NOTE DATE OF SIMULATION: 08/19/2022 DATES OF TREATMENT: 09/01/2022 to 09/01/2022 TREATMENT MACHINE: EXTRABANCA TREATMENT AREA: Liver HCC DIAGNOSIS: 82 year old man with HCC, 4.1 cm tumor in segment 4A. CONCURRENT THERAPY: No. DELIVERED DOSE: The Liver HCC PTV received a total dose of 3000 cGy in 1 fractions at 3000 cGy/fraction prescribed to Max Dose at 73.5% IDL using 10 MV photons with SBRT Coplanar VMAT technique. CBCT was used for IGRT. ELAPSED DAYS: 0 TOLERANCE: At last on-treatment visit, his toxicity was summarized as excellent with no acute toxicities. RESPONSE: To be assessed in outpatient clinic. REMARKS: The patient will be seen again in follow up in 3-4 months with MRI liver + labs. Resident Physician Alirio Dawson M.D. Staff Physician Bubba Sykes M.D 37:50 AM Electronically Signed cc: Ricky Bradley [address] [place] [address] Dr. Dahl, CC documented in this encounter [facility] 08-22-2022 Miscellaneous Notes Pt never seen in our department Patient has been identified by name and date of : Yes Requested Prescriptions Pending Prescriptions Disp Refills lisinopril (ZESTRIL) 40 mg tablet 30 tablet 11 Sig: Take 1 tablet by mouth once daily. nitroglycerin sublingual (NITROQUICK) 0.4 mg SL tablet 25 tablet 3 Sig: Dissolve 1 tablet under the tongue as needed. FOR CHEST PAIN. IF NO RELIEF CALL 911 oxybutynin ER (DITROPAN XL) 15 mg 24 hr Extended Rel Tab 90 tablet 3 Sig: Take 1 tablet by mouth once daily. RX INSTRUCTIONS: Patient aware RX will be sent to pharmacy. No need to notify patient. Dary Ledesma documented in this encounter [facility] 08-19-2022 Note [facility] 08-19-2022 Nurse Note Satya Medellin is here for an appointment today with Nurse and experienced a fall during his clinical visit. Location of fall: CA-LL 180, Exam rm 16 Brief Factual Description: The patient experienced loss of balance while changing with the assistance from his daughter Ingris. Exam room door was closed. Daughter opened up the door to ask for help to get patient back into his w/c. Pt was found with both hands on the sink and kneeling on his left knee. Pt assisted back to his w/c. Pt denies hitting his head and denies any pain or discomfort. No injury to left knee. VS obtained and stable. Dr. Sykes aware and into see patient and his daughter. Patient declined further evaluation and left unit by w/c with his daughter Ingris. Contributing Factors: lost balance and failure to call for assistance Did patient hit head or neck? No Is the patient having any pain? No Is patient alert? YES Injury: No Injury Noted INTERVENTIONS: Immediate Actions Taken: Provider notified Vitals completed Name of LIP Notified: Dr. Bubba Sykes Additional Prevention Measures:instructed Patient to remain seated, instructed pt. to call for help as needed, door to room left opened , offered assistance with transfers/clothing, and pt refused interventions/assistance. documented in this encounter [facility] 08-19-2022 History of Present illness Narrative Radiation Oncology Nursing Note PATIENT NAME: Satya Medellin PATIENT [facility] FACILITY/LOCATION: Main [place] PROCEDURE: Contrast Injection for CT Simulation Safety Checks Patient identified using 2 identifiers: Yes NPO x 4 hours verified: Yes Creatinine level drawn within the last 60 days: Yes Creatinine level within normal limits: Yes IV start: Time: 1355. #22g angiocath placed in the Left AC. Positive blood return verified: Yes Physician order for contrast injection verified: Yes Patient's allergies verified, including CT contrast: Yes Is the patient having any pain? None. 0 on a scale of 0 to 10. Concerns about physical or emotional abuse: No Fall risk: Yes, At risk due to: unsteady gait, weakness, and use of a wheelchair. LIP Notified. SIGNED by Yessenia Coy LPN Radiation Therapy - Patient Education Note PATIENT NAME: Satya Medellin PATIENT August 19, 2022 [facility] FACILITY/LOCATION: [facility] READINESS TO LEARN Cognitive Ability: Alert and oriented Motivation to learn: Eager Family Support: High - Very involved in pt care Instruction provide to: Patient and family member Patient learns best by: Individual Instruction Written Instruction - Hand-outs Verbal Instruction Factors effecting learning: None Physical limitations effecting learning: Limited Mobility LEARNING RESPONSE Diagnosis: Pt simulated today for radiation therapy to abdomen. Education Topic/Teaching Points: Radiation therapy, Side effects, and OTV: Method of instruction: Individual instruction Written instruction - handouts Verbal instruction Patient /Family response: Patient and family verbalized understanding of radiation treatments, side effects, OTV, and transportation. Follow-up plan: Patient instructed to call with any further issues Supplemental material: Informational handouts on SBRT Liver Handout. Referral (recommendation): None, Pt denied need for social work, van service, and kiln packer. Was approved? Clinical questionnaires incomplete due to Patient declined to complete or answer questions with nurse Signed by: Yessenia Coy LPN documented in this encounter [facility] 08-19-2022 Note [facility] 08-19-2022 Note [facility] 08-19-2022 Note [facility] 08-19-2022 History of Present illness Narrative SATYA MEDELLIN. [id number] 08/19/2022 [facility] Department of Radiation Oncology [facility] RADIATION ONCOLOGY - Therapist Injection Note Procedure: Contrast Injection for CT Simulation Safety Checks: Patient identified using two identifiers: Yes Physician order for contrast injection verified: Yes Patient's allergies verified, including CT contract: Yes eGFR verified: Yes Omnipaque: 300 mg/ml Volume: 150cc Time contrast administered: 2:45 pm Complications/Reaction: Yes No Patient Disposition: Patient IV access: Peripheral Time IV removed: 3:15 pm Patient/family provided with treatment instructions: Yes Patient/family verbally acknowledged understanding of treatment instructions: Yes Disposition: home Therapist: chris documented in this encounter [facility] 08-19-2022 History of Present illness Narrative LACIESATYA [id number] 08/19/2022 [facility] Department of Radiation Oncology [facility] RADIATION ONCOLOGY SIMULATION NOTE DATE OF SIMULATION: 08/19/2022 MACHINE: CT Simulator DIAGNOSIS: 82-year-old male with newly diagnosed radiographic HCC per MRI obtained 07/26/2022 showing a 4.1 cm tumor in segment 4A. Systemic staging, labs for classification (child Swain, MELD) pending. Tentatively intermediate stage per BCLC, cT2 N0 MX stage II per AJCC. AREA:Segment 4a liver HCC. PATIENT POSITION: Supine. CONTRAST: 150cc IV omnipaque. PROTOCOL: None BLOCKS: Custom blocks are necessary to develop an optimal plan. FIXATION DEVICE: In order to achieve accurate and reproducible treatments, the patient is immobilized with a bodyfix device and ABC for respiratory motion management. PROCEDURE: A time-out was conducted and recorded by the therapist. Patient was simulated on the CT scanner for external beam radiation therapy. Use of the ABC device for respiratory motion management/ITV creation was reviewed at the time of simulation and found to be adequate. Treatment site was marked by the simulation therapist. ASSESSMENT/PLAN: Patient tolerated simulation procedure well. Treatments will be initiated after treatment planning. The patient will be scheduled for a verification simulation on the treatment machine to ensure proper set-up and field arrangement is correct prior to the first treatment of primary and any boost ayala if applicable. Electronically Signed Bubba Sykes M.D. :47 PM documented in this encounter [facility] 08-18-2022 Miscellaneous Notes RADIATION ONCOLOGY NURSING PRE-SIM CALL Today's date: August 18, 2022 Time: 11:32 AM SIM date: 08/19/22 Spoke with patient's daughter, Ingris. Patient instructed to be NPO after 10am, daughter verbalized understanding. SIM needs: Do you have a Mediport or PICC: No Anxiety / Claustrophobia History: No Pain Needs: Is that patient having pain that will impact SIM? No Will patient need pain medication prior to SIM? No Last Creatinine: Creatinine Date Value Ref Range Status 08/10/2022 1.05 0.73 - 1.22 mg/dL Final ] Last BUN: BUN Date Value Ref Range Status 08/10/2022 27 (H) 9 - 24 mg/dL Final Last GFR: No results found for: EGFR IV Contrast: No Diabetic: No Status: Patient is male Ashley Jansen RN documented in this encounter [facility] 08-11-2022 Note [facility] 08-10-2022 Note [facility] 08-10-2022 Note [facility] 08-10-2022 Note [facility] 08-10-2022 History of Present illness Narrative [facility] received prescription(s) for Xifaxan from Dr. Haley Hampton's office. Benefits investigation was conducted, indicating that a prior authorization is required by patient's medicare part D insurance plan with [employer]. Encounter will be updated once prior authorization has been submitted by [facility]. Elizabeth Omer [facility] [id number] [place] [address] [email or web address] [phone] Fern PETERS was initiated and pending review. Plan Name: [employer] med d Plan Agent/Simental: [employer] (simental [id number]) Case: [id number] Timeline: 24-72 hrs Elizabeth Omer ([employer]) documented in this encounter [facility] 08-10-2022 Note [facility] 08-10-2022 Instructions Haley Hampton MD - 08/10/2022 9:20 AM EDT As discussed in the office, you have a diagnosis of cirrhosis. The main complications of cirrhosis are: 1. Ascites (fluid in the belly) 2. Hepatic Encephalopathy (confusion) 3. Varices (veins in the esophagus that can bleed) 4. Hepatocellular Carcinoma (liver cancer) Should you develop any new symptoms or have worsening symptoms please contact our office immediately. You should go to the nearest emergency room and call our office immediately if any of the following occur: 1. Temperature of 101 or above 2. Confusion 3. Vomiting blood 4. Multiple black or red stools 5. Shortness of breath 6. Severe diarrhea 7. Vomiting for more than twice in 24 hours -Call my office to discuss any surgeries (elective or emergent) since cirrhotic patients are at an increased risk for surgery in terms of infection, bleeding, and even . -Call my office if you are ever seen in the ER or admitted to the hospital. General Instructions: -Liver cancer prevention: You will need a picture of your liver with an ultrasound or MRI every 6 months to screen for liver cancer. Each year you are at a small risk of liver cancer, and so this step is important to preventing the development of liver cancer and catching it early. -Diet/exercise: -It is very important to limit the amount of salt you eat on a daily basis. Salt (or sodium as it is labeled on most food labels) can lead to retention of fluid in the belly and legs. Limiting sodium to < 2000 mg (or 2 grams) is simental to prevent this complication. Salt is hidden in nearly everything (even sweet foods!) so it is very important to read labels before cooking with or eating something. One of the best ways to know and limit how much salt you eat is to cook/prepare as much fresh food as you can. -In cirrhosis, your muscles tend to waste/atrophy, and so it is important to get a sufficient amount of protein in the diet. Plant-based protein and lean cuts of meat or fish are healthy. Try to avoid red meat if possible. -Avoid all avoid raw shellfish and undercooked meat- eating this can put you at risk of developing certain very serious infections. -Abstain from all alcohol intake. Even a small amount can have tremendous impact on your liver health. Try and participate in daily exercise or joyful movement every day. Medications: -You will likely be on many medications and it can sometimes be very difficult to remember when to take them. Something like a pill box or a phone alarm can be very helpful in reminding you when you should take your medications. -Take no more than 2 grams of tylenol in 24 hours (a sick liver cannot effectively process certain medications and too much tylenol can be dangerous to the liver and even lead to liver failure). -Because the liver cannot process certain medications as effectively when you have cirrhosis, avoid medications such as Benadryl, benzodiazepines (Ativan, valium, etc), and certain opiate pain medications if possible (tramadol, norco, oxycontin, dilaudid, morphine). These medications can lead to worsening confusion and sleepiness. -Avoid medications like Ibuprofen, Motrin, Aleve, Excedrin. These medications are non-steroidal anti-inflammatory drugs (NSAIDs) and can put lots of undue stress on the kidneys (which are particularly sensitive in patients with cirrhosis). -Call my office to discuss the risks and benefits of any new medications ( prescribed or over the counter) before taking the new medication. Other/general: -You should ask your primary care to ensure you have been vaccinated for pneumonia and the flu -If you are starting to struggle with confusion and memory loss, it is NOT safe to drive a vehicle or operate heavy machinery. Having cirrhosis with confusion can lead to impaired reflexes, and driving under these circumstances is like driving under the influence of drugs or alcohol. Please talk to your doctor (and our office) if you or a family member notices you are struggling with this. For more information about cirrhosis and how to navigate living with this disease, one excellent website is https://www.cirrhosiscare.ca/ This provides lots of good resources for patients and their family members. Highly recommend this! 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 Saw hematology/oncology for this, eventually had liver imaging which noted a mass in 03/2022, recent MRI in July with cirrhosis along with a 4.1 cm HCC in seg 4A Case discussed at tumor board and he was referred for SBRT (limited options given age, functional limitations, etc) He met with radiation oncology just recently and is eager to get treatment started With respect to his liver-related symptoms: Sleeps a lot in the daytime, not so much at night. Possibly a bit more confusion when he talks. Has at least 4-5 soft bowel movements/day, black as coal because he is taking iron supplements. No abdominal distention. Takes lasix for LE edema No jaundice, pruritis HCC history: Diagnosis date: 07/2021 Initial AFP: 8.5 Biopsy-proven?: no Imaging: MRI Within [place]: Yes CPT score: A ECOG performance status: 1 Treatment history: LT candidate: no Resection: no Locoregional therapy: getting SBRT Review of Systems: See note Past Medical History: PAST MEDICAL HISTORY Diagnosis Date Adenomatous colon polyp 11/17/2010 Adjustment disorder with depressed mood 06/24/2011 Aortic valve disorders 10/09/2006 stenosis Asthma exacerbation 02/25/2012 Calculus of ureter 03/23/2005 Esophageal reflux 01/28/2011 Essential hypertension 01/28/2005 Impaired renal function 07/30/2009 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 Intestinal polyp 11/17/2010 Nonspecific abnormal results of liver function study 04/04/2006 Obesity, unspecified DEMI on CPAP 01/27/2005 Other abnormal blood chemistry Hyperuricemia Other and unspecified hyperlipidemia 01/28/2005 Peripheral polyneuropathy 05/20/2014 Polycystic kidney 08/04/2009 Snoring Splenomegaly 12/25/2013 Thrombocytopenia (HCC) 01/19/2011 Family History: FAMILY HISTORY Problem Relation Age of Onset Heart Mother in 70's Coronary Artery Disease Father in his 80's Emphysema Father Diabetes Brother Social History: Tobacco: denies EtOH: denies Substances: denies I have confirmed and edited as necessary, the PFSH and ROS obtained by others. Current Outpatient Medications on File Prior to Visit Medication Sig oxybutynin ER (DITROPAN XL) 15 mg 24 hr Extended Rel Tab Take 2 tablets by mouth once daily. furosemide (LASIX) 20 mg tablet TAKE 1 TABLET BY MOUTH EVERY OTHER RDAY Diaper,Brief, Adult,Disposable (DEPEND EASY FIT UNDERGARMENTS) 1 Each three times daily. ascorbic acid, vitamin C, (VITAMIN C) 500 mg tablet Take 1 tablet by mouth once daily. ascorbic acid-elderberry fruit 100-50 mg chew Take 2 tablets by mouth once daily. cyanocobalamin (VITAMIN B-12) 2,500 mcg tablet Take 2,500 mcg by mouth once daily. aspirin, enteric coated (ASPIRIN, ENTERIC COATED) 81 mg EC tablet Take 81 mg by mouth once daily. albuterol HFA (PROVENTIL HFA, VENTOLIN HFA) 90 mcg/actuation inhaler Inhale 2 Puffs as instructed every 4 hours as needed for wheezing/shortness of breath. omeprazole (PRILOSEC) 40 mg capsule Take 1 capsule by mouth once daily. allopurinol (ZYLOPRIM) 300 mg tablet Take 1 tablet by mouth once daily. magnesium oxide 400 mg magnesium cap Take 1 capsule by mouth once daily. fenofibrate nanocrystallized (TRICOR) 48 mg tablet Take 1 tablet by mouth once daily. sertraline (ZOLOFT) 50 mg tablet Take 1 tablet by mouth once daily. nitroglycerin sublingual (NITROQUICK) 0.4 mg SL tablet Dissolve 1 tablet under the tongue every 5 minutes as needed for chest pain. FOR CHEST PAIN. IF NO RELIEF CALL 911 fluticasone (FLONASE) 50 mcg/actuation nasal spray Use 1 [place] in each nostril once daily. ferrous sulfate 325 mg (65 mg iron) EC tablet Take 1 tablet by mouth twice daily with meals. (Patient taking differently: Take 325 mg by mouth once daily.) fluticasone-vilanterol (BREO ELLIPTA) 200-25 mcg/dose inhaler Inhale 1 Inhalation as instructed once daily. Inhale one puff once daily. DO NOT CLICK OPEN UNTIL READY FOR DOSE multivitamin tablet Take 1 tablet by mouth once daily. torsemide (DEMADEX) 20 mg tablet Take 2 tablets by mouth once daily for 5 days. melatonin 10 mg tab Take 1 tablet by mouth as needed. amoxicillin (POLYMOX, AMOXIL) 500 mg capsule Take four tablets, one hour prior to dental work (Patient not taking: Reported on 08/10/2022) No current facility-administered medications on file prior to visit. Vitals: Ht 5' 10 (1.78m) Wt 246 lb 12.8 oz (111.9kg) BMI 35.41 kg/(m^2). Physical Exam: Well appearing, in NAD No jaundice Aox3 In a wheelchair Laboratory: MELD-Na score: 8 at 05/02/2022 2:27 PM MELD score: 8 at 05/02/2022 2:27 PM Calculated from: Serum Creatinine: 1.09 mg/dL at 05/02/2022 2:27 PM Serum Sodium: 140 mmol/L (Using max of 137 mmol/L) at 05/02/2022 2:27 PM Total Bilirubin: 0.5 mg/dL (Using min of 1 mg/dL) at 05/02/2022 2:27 PM INR(ratio): 1.1 at 05/02/2022 2:27 PM Age: 82 years Disclaimer: The MELD Calculator cannot calculate MELD scores for patients on dialysis. AFP Lab Results Component Value Date AFP 8.5 05/02/2022 Imaging: MRI Liver 07/2021: Lesion#: 1 Location: Segment Radha; (series 15 image 19) Size (maximum long-axis dimension): 4.1 cm, Prior size: N/A Arterial Phase Hyperenhancement (APHE): Nonrim APHE Wash-out: Yes - non-peripheral Enhancing Capsule: Yes Threshold growth (50% or more growth in 6 months or less): N/A Ancillary features favoring malignancy or HCC: Fat in mass more than adjacent liver Ancillary features favoring benignity: N/A LI-RADS Category: LR-5 (definitely HCC) OPTN Class 5 Category:5B Hepatic vasculature and collaterals: ... Portal venous system (splenic vein, main portal vein, left and right anterior and right posterior portal vein branches): Patent. Portal vein diameter: 1.6 cm. Celiac trunk and SMA: Patent. No stenosis. Hepatic artery: Patent. Replaced right hepatic artery from SMA. Hepatic veins: Patent. Collaterals: Spontaneous splenorenal shunt: Absent Recanalized paraumbilical vein: Small Esophageal varices: Absent. Mesenteric portosystemic collaterals: Absent Related extrahepatic findings: Spleen: 13.7 cm (craniocaudally), enlarged. No mass. Mesentery/Peritoneum: Trace ascites. No mass. Other findings: Biliary: No bile duct dilation. Gallbladder present with cholelithiasis. Pancreas: No mass or duct dilation. Adrenals: No mass. Kidneys: Multiple bilateral cysts. No solid mass. No hydronephrosis. GI: No dilated bowel or wall thickening along imaged segments. Small hiatal hernia Lymph nodes: No abdominal lymphadenopathy. Vasculature: No abdominal aortic aneurysm. Bones/Soft Tissues: Degenerative change. Focal enhancement in the right L1 transverse process, likely posttraumatic. No other osseous lesion. Lower chest: Left lower lobe mucoid impaction. Bronchial wall thickening. Endoscopy: EGD 2019: Findings: The examined jejunum was normal. The examined duodenum was normal. Localized moderate inflammation characterized by erosions, erythema and friability was found in the gastric antrum. Biopsies were taken with a cold forceps for histology. A medium-sized hiatal hernia was present. Non-severe esophagitis with no bleeding was found. 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 Will check zinc, start rifaximin EV: EGD ordered, needs to schedule Ascites/SBP: none on imaging HCC: Planning on SBRT for his HCC which is appropriate given his age and comorbidities. Needs CT chest so will make sure that is scheduled RTC 3 months I spent a total of 45 minutes on the date of the service which included preparing to see the patient, [id number] patient care, completing clinical documentation, obtaining and/or reviewing separately obtained history, performing a medically appropriate examination, counseling and educating the patient/family/caregiver, ordering medications, tests, or procedures, and communicating with other HCPs (not separately reported). Haley Hampton MD Associate Staff, Department of Gastroenterology and Hepatology [facility] [place] -- ASSESSMENT/PLAN: 1. Cirrhosis of liver without ascites, unspecified hepatic cirrhosis type (HCC) - ICD9: 571.5, ICD10: K74.60 - ZINC BLD - HEPATIC FUNCTION PNL - PROTHROMBIN TIME/PT - CBC + DIFF - BASIC METABOLIC PNL Haley Hampton MD documented in this encounter [facility] 08-03-2022 Note [facility] 08-03-2022 History of Present illness Narrative Images from the original note were not included. Radiation Oncology - New Patient/Consult Note PATIENT NAME: Satya Medellin PATIENT REQUESTING PROVIDER: Yuniel Dahl DO DIAGNOSIS: 82-year-old male with newly diagnosed radiographic HCC per MRI obtained 07/26/2022 showing a 4.1 cm tumor in segment 4A. Systemic staging, labs for classification (child Swain, MELD) pending. Tentatively intermediate stage per BCLC, cT2 N0 MX stage II per AJCC. Discussed at tumor board and referred for consideration of SBRT. HPI: 82 year old male who presents with above diagnosis, for an opinion regarding the role of radiation therapy in the management of the patient's disease. Final recommendations will be communicated back to the requesting physician by way of the shared medical record, or letter to requesting physician via US mail. 82-year-old gentleman with a past medical history of polycystic kidney disease, coronary artery disease, obstructive sleep apnea, asthma, and chronic anemia who was recently diagnosed with cirrhosis complicated by hepatocellular carcinoma as outlined above. In review, he was first seen by hematology/oncology on 03/22/2022 for evaluation of persistent anemia with concern for a presentation possibly consistent with multiple myeloma or MGUS. Given his history of splenomegaly, an ultrasound of the liver and spleen was ordered. This was obtained on 03/25/2022 and showed splenomegaly, cirrhosis (not previously described), and a new hyperechoic nodule in the right lobe of the liver which could be further evaluated by MRI . In May 2022 he underwent bone marrow biopsy which did not reveal any evidence of smoldering myeloma or multiple myeloma . 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 He was also treated for iron deficiency anemia, with plans to reassess in 1 year with medical oncology. He was also scheduled for a liver MRI, however, needed the MRI to be open and also required anesthesia and was unable to obtain until 07/26/2022. At this time, MRI did show a cirrhotic liver with a 4.1 cm liver mass compatible with HCC in segment 4A. His case was discussed at liver tumor board with recommendation for pursuit of local therapy, and he has been referred for discussions of SBRT. Today he presents with his daughter and son-in-law on speaker phone. He reiterates the history provided above. He notes that he needed the MRI under anesthesia which was obtained without issue. He reports that his cancer was discovered via US as part of his workup for anemia. He has not had significant issues recently and tolerated MRI well. He denies headache, lightheadedness, dizziness, syncope. Eating and drinking OK, swallowing without issue. No chest pain, worsening SOB, cough or hemoptysis. No abdominal pain, N, V. Urination and defecation at baseline without blood. Walks with a walker no change from prior; no focal deficits. In terms of his past medical history, he has listed diagnoses of GERD, hypertension, CKD, DEMI, MGUS, peripheral neuropathy, polycystic kidney disease, splenomegaly, and thrombocytopenia. No prior diagnoses of cancer. No prior history of radiation therapy. No diagnosis of connective tissue disease, ulcerative colitis, or Crohn's disease. 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 4.1 cm liver mass compatible with HCC. Left lower lobe mucoid impaction. Bronchial wall thickening. RESULT: Hepatic morphology and masses: Cirrhotic morphology. Lesion#: 1 Location: Segment Radha; (series 15 image 19) Size (maximum long-axis dimension): 4.1 cm, Prior size: N/A Arterial Phase Hyperenhancement (APHE): Nonrim APHE Wash-out: Yes - non-peripheral Enhancing Capsule: Yes Threshold growth (50% or more growth in 6 months or less): N/A Ancillary features favoring malignancy or HCC: Fat in mass more than adjacent liver Ancillary features favoring benignity: N/A LI-RADS Category: LR-5 (definitely HCC) OPTN Class 5 Category:5B Hepatic vasculature and collaterals: ... Portal venous system (splenic vein, main portal vein, left and right anterior and right posterior portal vein branches): Patent. Portal vein diameter: 1.6 cm. Celiac trunk and SMA: Patent. No stenosis. Hepatic artery: Patent. Replaced right hepatic artery from SMA. Hepatic veins: Patent. Collaterals: Spontaneous splenorenal shunt: Absent Recanalized paraumbilical vein: Small Esophageal varices: Absent. Mesenteric portosystemic collaterals: Absent Related extrahepatic findings: Spleen: 13.7 cm (craniocaudally), enlarged. No mass. Mesentery/Peritoneum: Trace ascites. No mass. Other findings: Biliary: No bile duct dilation. Gallbladder present with cholelithiasis. Pancreas: No mass or duct dilation. Adrenals: No mass. Kidneys: Multiple bilateral cysts. No solid mass. No hydronephrosis. GI: No dilated bowel or wall thickening along imaged segments. Small hiatal hernia Lymph nodes: No abdominal lymphadenopathy. Vasculature: No abdominal aortic aneurysm. Bones/Soft Tissues: Degenerative change. Focal enhancement in the right L1 transverse process, likely posttraumatic. No other osseous lesion. Lower chest: Left lower lobe mucoid impaction. Bronchial wall thickening. LABS Component Latest Ref Rng & Units 05/02/2022 06/10/2022 WBC 3.70 - 11.00 k/uL 3.87 RBC 4.20 - 6.00 m/uL 3.63 (L) Hemoglobin 13.0 - 17.0 g/dL 11.8 (L) Hematocrit 39.0 - 51.0 % 36.2 (L) MCV 80.0 - 100.0 fL 99.7 MCH 26.0 - 34.0 pg 32.5 MCHC 30.5 - 36.0 g/dL 32.6 RDW-CV 11.5 - 15.0 % 20.0 (H) Platelet Count 150 - 400 k/uL 66 (L) MPV 9.0 - 12.7 fL 9.8 Neut% % 79.1 Abs Neut (ANC) 1.45 - 7.50 k/uL 3.06 Lymph% % 11.1 Abs Lymph 1.00 - 4.00 k/uL 0.43 (L) Esmeralda% % 6.2 Abs Esmeralda <0.87 k/uL 0.24 Eosin% % 2.8 Abs Eosin <0.46 k/uL 0.11 Baso% % 0.5 Abs Baso <0.11 k/uL <0.03 Immature Gran % % 0.3 IMMATURE GRANS (ABS) <0.10 k/uL <0.03 NRBC /100 WBC 0.0 Absolute nRBC <0.01 k/uL <0.01 DTYPE Auto Protein, Total 6.3 - 8.0 g/dL 6.0 (L) Albumin 3.9 - 4.9 g/dL 3.4 (L) Calcium 8.5 - 10.2 mg/dL 10.1 Bilirubin, Total 0.2 - 1.3 mg/dL 0.4 Alkaline Phosphatase 38 - 113 U/L 161 (H) AST 14 - 40 U/L 41 (H) ALT 10 - 54 U/L 29 Glucose 74 - 99 mg/dL 97 BUN 9 - 24 mg/dL 32 (H) Creatinine 0.73 - 1.22 mg/dL 1.01 Sodium 136 - 144 mmol/L 137 Potassium 3.7 - 5.1 mmol/L 4.2 Chloride 97 - 105 mmol/L 106 (H) CO2 22 - 30 mmol/L 24 Anion Gap 9 - 18 mmol/L 7 (L) eGFR >=60 mL/min/1.73m 74 AFP <11.0 ng/mL 8.5 ALLERGIES Allergen Reactions Bees Anaphylaxis Acetaminophen Other: See Comments Hydrocodone GI Upset Lipitor [Atorvastat* Itching Singulair [[place]* Itching Strawberries Hives hives PAST MEDICAL HISTORY Diagnosis Date Adenomatous colon polyp 11/17/2010 Adjustment disorder with depressed mood 06/24/2011 Aortic valve disorders 10/09/2006 stenosis Asthma exacerbation 02/25/2012 Calculus of ureter 03/23/2005 Esophageal reflux 01/28/2011 Essential hypertension 01/28/2005 Impaired renal function 07/30/2009 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 ASSIST ENTEROSCOPY W/ BX 01/14/2011 CAPSULE ENDO SMALL BOWEL W EGD 11/19/2010 COLONOSCOPY FLX DX W/COLLJ SPEC WHEN PFRMD 2000 Colonoscopy COLONOSCOPY FLX DX W/COLLJ SPEC WHEN PFRMD 2003 Colonoscopy COLONOSCOPY FLX DX W/COLLJ SPEC WHEN PFRMD 11/17/2010 Colonoscopy COLONOSCOPY FLX DX W/COLLJ SPEC WHEN PFRMD 10/02/2017 Colonoscopy COLONOSCOPY W/BIOPSY SINGLE/MULTIPLE 05/07/2007 ESOPHAGOGASTRODUODENOSCOPY TRANSORAL DIAGNOSTIC 10/02/2017 EGD ESOPHAGOGASTRODUODENOSCOPY TRANSORAL DIAGNOSTIC 04/08/2019 EGD ESOPHAGOGASTRODUODENOSCOPY TRANSORAL DIAGNOSTIC 05/09/2019 EGD EXCISION PILONIDAL CYST/SINUS SIMPLE 1964 HEMORRHOIDECTOMY INTERNAL RUBBER BAND LIGATIONS 12/29/201712/08 and 12/29/17 OPTX FEM SHFT FX W/INSJ IMED IMPLT W/WO SCREW Left 09/03/2019 L hip cephalo medullary nail. RPLCMT AORTIC VALVE OPN W/STENTLESS TISSUE VALVE 01/18/2011 25-mm Shannan-Fisher pericardial prosthesis via upper ministernotomy. RPR UMBILICAL HRNA 5 YRS/> REDUCIBLE 12/25/2009 Hernia repair, umbilical >5yr FAMILY HISTORY Problem Relation Age of Onset Heart Mother in 70's Coronary Artery Disease Father in his 80's Emphysema Father Diabetes Brother Social History Tobacco Use Smoking status: Never Smokeless tobacco: Never Vaping Use Vaping Use: Never used Substance Use Topics Alcohol use: No Drug use: No COMPLETE REVIEW OF SYSTEMS: See HPI PHYSICAL EXAM: VS: BP 106/58 Pulse 70 Resp 18 Wt 108.9 kg (240 lb) SpO2 89% BMI 37.59 kg/m KPS: 70 General Appearance: Alert and oriented. No acute distress. HEENT: NCAT. Sclera anicteric. EOMI. Neck: Normal ROM. Chest: No respiratory distress. Heart: Regular rate. Abdomen: Soft. Nondistended. Musculoskeletal: Baseline ROM in extremities. Neuro: Speech fluent. No focal deficits. Skin: No rashes noted. Hematologic: No signs of active bleeding. RADIOLOGY/LABORATORY DATA: see HPI ASSESSMENT AND PLAN: 82-year-old male with newly diagnosed radiographic HCC per MRI obtained 07/26/2022 showing a 4.1 cm tumor in segment 4A. Systemic staging, labs for classification (child Swain, MELD) pending. Tentatively intermediate stage per BCLC, cT2 N0 MX stage II per AJCC. Discussed at tumor board and referred for consideration of SBRT. Today we discussed his history of presentation and most recent imaging results. We discussed that his blood work and systemic staging with further imaging studies is still pending. Based on the information at hand, we discussed the role of stereotactic body radiation therapy in the treatment of hepatocellular carcinoma and its utility for his situation. We discussed the risks, benefits, alternatives, procedures, mechanics and personnel involved in treatment. We also discussed the possible acute and late side effects involved. Mr. Nichole verbalized understanding of these issues and all questions were answered at this time. He will be scheduled for simulation. Further discussion on Rodri vs main [facility] and 3 vs [address] Sykes addendum below. This was discussed with him and he is aware. Yousif Bustillos MD Radiation Oncology Resident [id number] STAFF ADDENDUM: I have read and reviewed the above, as well as discussed with Dr. Bustillos, reviewed the medical record, and confirmed with the patient. I agree with the above. In summary Mr. Medellin is a very pleasant 82-year-old gentleman with a new diagnosis of hepatocellular carcinoma of the hepatic dome. Not a surgical candidate given his age, cirrhosis and medical comorbidities. Compared and contrasted available nonsurgical therapies including radiofrequency ablation, embolization, and stereotactic body radiation. Given location in the dome and adjacent to the heart not a candidate for radiofrequency ablation. Patient prefers noninvasive approach and stereotactic body radiation offers overall excellent local control and favorable toxicity profile. Reviewed relative RBA and patient demonstrates understanding and agreement to proceed. We will schedule simulation. Same day CT chest to complete staging. Tentatively plan for 45 Frances in 3 fractions. 60 minutes were spent in consultation greater than 50% of which was direct counseling regarding treatment decisions and coordination of care. Bubba Sykes MD cc: Ricky Bradley [address] [place] [address] Dr. Dahl, [facility] documented in this encounter [facility] 07-28-2022 Miscellaneous Notes Left voicemail for patient's daughter about liver tumor board results See FRESS message from today documented in this encounter [facility] 07-26-2022 Miscellaneous Notes Spoke to patient's daughter Ingris, informed her MRI is consistent with hepatocellular carcinoma and cirrhosis. Discussed need for referral to liver tumor board, hopefully this week or next Will need CT chest wo cont She has not scheduled EGD/colonoscopy as previously recommended due to wanting to see results of the MRI, patient has also been cranky recently From cirrhosis perspective, seems relatively well compensated but suspect he has some degree of portal HTN with thrombocytopenia. MELD labs ordered, will let her know outcome of liver tumor board meeting She verbalized understanding and thanked me for calling Patient's daughter Ingris called back, tried to transfer her to you but went to . Attempted to call patient's daughter Ingris, to review MRI results today but had to leave voicemail, call back number given. If she returns my call, please let me know as I'd like to speak with her directly about the MRI findings. Will send HomeLight[employer] message if unable to reach her by this evening as I am off tomorrow 07/27 Kai Alvarado PA-C July 26, 2022 3:14 PM documented in this encounter [facility] 07-26-2022 Note [facility] 07-26-2022 Note [facility] 07-26-2022 Note [facility] 07-26-2022 Note [facility] 07-26-2022 History of Present illness Narrative Radiology Service Progress Note PATIENT NAME: Satya Medellin DATE OF SERVICE: July 26, 2022 TIME: 1:01 PM PATIENT IDENTITY VERIFICATION COMPLETED USING TWO (2) IDENTIFIERS: Name and Date of confirmed by patient verbally and Name and Date of confirmed by identification band. FALL SCREENING: Has the patient had 2 falls in the last year or 1 fall with injury or currently using an Ambulatory Assistive Device (Walker, Cane, Wheelchair, Crutches, etc.)? Yes, Patient High Risk for Falls What interventions were put in place to prevent falls during this visit? Patient was under anesthetic- no walking or transfer. PATIENT GENDER DATA: Male PATIENT RELEVANT IMPLANT DATA REVIEWED: Yes RADIOLOGY DEPARTMENT: MR; Exam(s) Completed: Body: Liver (routine) PERIPHERAL IV DATA: Site assessment: Clean,Dry and Intact, Site disposition Left in for next appointment SIGNED BY: RT Melody(R) July 26, 2022 1:01 PM documented in this encounter [facility] 07-26-2022 History of Present illness Narrative Radiology Service Progress Note PATIENT NAME: Satya Medellin DATE OF SERVICE: July 26, 2022 TIME: 1:32 PM PATIENT IDENTITY VERIFICATION COMPLETED USING TWO (2) STANDARD IDENTIFIERS: Name and Date of confirmed by patient verbally and Name and Date of confirmed by identification band. PATIENT GENDER DATA: Male PATIENT RELEVANT IMPLANT DATA REVIEWED: Yes ALLERGIES: Reviewed and unchanged MEDICATIONS REVIEWED: NO IV SITE: Ambulatory: A peripheral IV was started in the Left antecubital site with a Angio cath: 20 gauge. and A Saline lock was inserted per protocol PERIPHERAL IV ACCESS: Discontinued ANXIOLYSIS/ANESTHESIA: Please see Outpatient Preoperative Nursing Care Record and Anesthesia Record for further details. PATIENT DISCHARGED TO: Home/Self Care with daughter Ingris SIGNED BY: Jessie De La Fuente RN July 26, 2022 1:32 PM documented in this encounter [facility] 07-26-2022 Nurse Note Radiology Service Progress Note DATE OF SERVICE: July 26, 2022 TIME: 11:20 AM PATIENT WEIGHT: 241 LBS PATIENT IDENTITY VERIFICATION COMPLETED USING TWO (2) STANDARD IDENTIFIERS: Name and Date of confirmed by patient verbally and Name and Date of confirmed by identification band. FALL SCREENING: Has the patient had 2 falls in the last year or 1 fall with injury or currently using an Ambulatory Assistive Device (Walker, Cane, Wheelchair, Crutches, etc.)? No PATIENT GENDER DATA: Male ALLERGIES: Reviewed and unchanged CONTRAST ALLERGY: No EXAM: MRI - CONTRAST TYPE: GROUP II IV SITE: Ambulatory: A peripheral IV was started in the Left antecubital site with a Angio cath: 20 gauge. and A Saline lock was inserted per protocol IV SITE APPEARANCE: Clean,Dry and Intact SIGNATURE: Sole Sweeney RN PATIENT NAME: Satya Medellin DATE: July 26, 2022 TIME: 11:20 AM Radiology Service Progress Note PATIENT NAME: Satya Medellin DATE OF SERVICE: July 26, 2022 TIME: 11:20 AM PATIENT IDENTITY VERIFICATION COMPLETED USING TWO (2) STANDARD IDENTIFIERS: Name and Date of confirmed by patient verbally and Name and Date of confirmed by identification band. PATIENT GENDER DATA: Male PATIENT RELEVANT IMPLANT DATA REVIEWED: Yes ALLERGIES: Reviewed and unchanged MEDICATIONS REVIEWED: YES IV SITE: Ambulatory: A peripheral IV was started in the Left antecubital site with a Angio cath: 20 gauge. and A Saline lock was inserted per protocol PERIPHERAL IV ACCESS: Discontinued ANXIOLYSIS/ANESTHESIA: Please see Outpatient Preoperative Nursing Care Record and Anesthesia Record for further details. PATIENT DISCHARGED TO: Home/Self Care SIGNED BY: Sole Sweeney RN July 26, 2022 11:20 AM documented in this encounter [facility] 07-13-2022 Miscellaneous Notes Radiology Service Pre Anesthesia Telephone Call PATIENT NAME: Satya Medellin DATE OF CALL: July 13, 2022 TIME: 4:13 PM PATIENT TYPE: Adult patient 1. Has the patient ever had an MRI scan before? Yes, claustrophobia 2. Does the patient have any implanted devices? No If yes, notify patient that additional follow up will be required., 3. Has the patient had a history and physical within this 30 day period? Yes. 4. Diet instructions given. Yes. No solids for 8 hours prior to exam. Patient may take medications with sips of water., 5. Has the patient had lab work within the last 6 months? Yes, 6. Is the patient diabetic? No, 7. Is the patient taking pain medication? No, 8. Parking and Check-in instructions given? Yes, 9. Does the patient have a corporate driver to take them home? Yes, 10. Spoke with patient: No, spoke with Thiago, and All questions were addressed and answered. Patient's daughter verbalized understanding. SIGNED BY: Keyona Dodson RN July 13, 2022 4:13 PM documented in this encounter [facility] documented as of this encounter (statuses as of 11/30/2022) [facility]03-21-2023 History of Past illness Narrative* Problem Noted Date Diagnosed Date Resolved Date Stasis ulcer 07/05/2022 11/04/2022 Obesity, Class II, BMI 35-39.9 04/22/2020 11/04/2022 Medicare annual wellness visit, subsequent 10/02/2018 02/18/2019 Encounter for long-term (cur rent) use of medications 09/07/2017 05/07/2021 Overview: Added automatically from request for surgery [id number] History of colonic polyps 09/07/2017 Overview: Added automatically from request for surgery [id number] Gastroesophageal reflux disease 09/07/2017 05/07/2021 Overview: Added automatically from request for surgery [id number] Acute pulmonary edema 01/19/20112010 Overview: 01/19/2011 cardiogenic and noncardiogenic factors Atelectasis 01/19/2011 01/20/2011 Hypotension 01/18/2011 01/20/2011 Overview: 01/18/2011 goal map 65-80 Stress hyperglycemia 01/18/2011 011 Overview: 01/18/2011 Perioperative insulin resistance and exacerbation of hyperglycemia. Control blood glucose with titration of insulin infusion 01/19/2011 adequate control goal FBG<180 Post-op pain 01/18/2011 01/20/2011 Mechanically assisted ventilation 01/18/2011 01/19/2011 Overview: 01/18/2011 optimize MV settings, WTE current setting:FiO2, 75%, peep 8 Cardiac insufficiency 01/18/20112010 Overview: 01/18/2011 RV mild to moderate post pump goal CI>2.3 Hypoxemia 01/18/2011 01/20/2011 discharge planning 01/12/2011 1 Overview: age 70, lives in [place], [place]. No DC needs. / Pre-op testing 01/12/2011 01/18/2011 Overview: Images from the original note were not included. [facility] Surgeon: Zenon Sanders M.D. Informed Consent Completed: No STS Score: 1.4% CAD: Yes - CAD on Problem List: Yes Is intended procedure a CABG: Yes - is a beta isamar ordered? Yes H & P completed: Yes PA/LAT: Completed CT: Completed MRI: N/A LE US: N/A Cath: Yes - reviewed: Yes Echo:Completed EKG: Completed EF %: 61 PI's: N/A Carotid: Completed Mapping: N/A Dental: Completed PFT's: N/A Basename 01/10/11 0729 WBC 7.18 HB 13.1 HCT 41.8 PLT 192 INR 1.0 CREAT 1.35 UA: Normal HCG:N/A ABO/ABO Confirmed: Yes Blood ordered: No SA Swab: Yes - results: Pending Last Dose of Anticoagulation: vitamins Op Note: N/A Pacemaker Check: N/A Consults: GI 01/10/2001 DM: No Cardiac Surgical prep: No SIGNATURE: Dede Mims RN CHECKED BY: DATE of SERVICE: 01/12/2011 TIME of SERVICE: 2:23 PM Anemia of chronic disease 11/19/2010 Intestinal polyp 11/17/2010 10/03/2011 Overview: Distal ileum ulcerated polyp. 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) 04/22/2020 documented as of this encounter (statuses as of 12/10/2022) [facility] History of Past illness Narrative* Problem Noted Date Diagnosed Date Resolved Date Stasis ulcer 07/05/2022 11/04/2022 Obesity, Class II, BMI 35-39.9 04/22/2020 11/04/2022 Medicare annual wellness visit, subsequent 10/02/2018 02/18/2019 Encounter for long-term (cur rent) use of medications 09/07/2017 05/07/2021 Overview: Added automatically from request for surgery [id number] History of colonic polyps 09/07/2017 Overview: Added automatically from request for surgery [id number] Gastroesophageal reflux disease 09/07/2017 05/07/2021 Overview: Added automatically from request for surgery [id number] Acute pulmonary edema 01/19/20112010 Overview: 01/19/2011 cardiogenic and noncardiogenic factors Atelectasis 01/19/2011 01/20/2011 Hypotension 01/18/2011 01/20/2011 Overview: 01/18/2011 goal map 65-80 Stress hyperglycemia 01/18/2011 011 Overview: 01/18/2011 Perioperative insulin resistance and exacerbation of hyperglycemia. Control blood glucose with titration of insulin infusion 01/19/2011 adequate control goal FBG<180 Post-op pain 01/18/2011 01/20/2011 Mechanically assisted ventilation 01/18/2011 01/19/2011 Overview: 01/18/2011 optimize MV settings, WTE current setting:FiO2, 75%, peep 8 Cardiac insufficiency 01/18/20112010 Overview: 01/18/2011 RV mild to moderate post pump goal CI>2.3 Hypoxemia 01/18/2011 01/20/2011 discharge planning 01/12/2011 1 Overview: age 70, lives in [place], [place]. No DC needs. / Pre-op testing 01/12/2011 01/18/2011 Overview: Images from the original note were not included. [facility] Surgeon: Zenon Sanders M.D. Informed Consent Completed: No STS Score: 1.4% CAD: Yes - CAD on Problem List: Yes Is intended procedure a CABG: Yes - is a beta isamar ordered? Yes H & P completed: Yes PA/LAT: Completed CT: Completed MRI: N/A LE US: N/A Cath: Yes - reviewed: Yes Echo:Completed EKG: Completed EF %: 61 PI's: N/A Carotid: Completed Mapping: N/A Dental: Completed PFT's: N/A Basename 01/10/11 0729 WBC 7.18 HB 13.1 HCT 41.8 PLT 192 INR 1.0 CREAT 1.35 UA: Normal HCG:N/A ABO/ABO Confirmed: Yes Blood ordered: No SA Swab: Yes - results: Pending Last Dose of Anticoagulation: vitamins Op Note: N/A Pacemaker Check: N/A Consults: GI 01/10/2001 DM: No Cardiac Surgical prep: No SIGNATURE: Dede Mims RN CHECKED BY: DATE of SERVICE: 01/12/2011 TIME of SERVICE: 2:23 PM Anemia of chronic disease 11/19/2010 Intestinal polyp 11/17/2010 10/03/2011 Overview: Distal ileum ulcerated polyp. 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) 04/22/2020 documented as of this encounter (statuses as of 12/12/2022) [facility]03-21-20[facility] History of Past illness Narrative* Problem Noted Date Diagnosed Date Resolved Date Stasis ulcer 07/05/2022 11/04/2022 Obesity, Class II, BMI 35-39.9 04/22/2020 11/04/2022 Medicare annual wellness visit, subsequent 10/02/2018 02/18/2019 Encounter for long-term (cur rent) use of medications 09/07/2017 05/07/2021 Overview: Added automatically from request for surgery [id number] History of colonic polyps 09/07/2017 Overview: Added automatically from request for surgery [id number] Gastroesophageal reflux disease 09/07/2017 05/07/2021 Overview: Added automatically from request for surgery [id number] Acute pulmonary edema 01/19/20112010 Overview: 01/19/2011 cardiogenic and noncardiogenic factors Atelectasis 01/19/2011 01/20/2011 Hypotension 01/18/2011 01/20/2011 Overview: 01/18/2011 goal map 65-80 Stress hyperglycemia 01/18/2011 011 Overview: 01/18/2011 Perioperative insulin resistance and exacerbation of hyperglycemia. Control blood glucose with titration of insulin infusion 01/19/2011 adequate control goal FBG<180 Post-op pain 01/18/2011 01/20/2011 Mechanically assisted ventilation 01/18/2011 01/19/2011 Overview: 01/18/2011 optimize MV settings, WTE current setting:FiO2, 75%, peep 8 Cardiac insufficiency 01/18/20112010 Overview: 01/18/2011 RV mild to moderate post pump goal CI>2.3 Hypoxemia 01/18/2011 01/20/2011 discharge planning 01/12/2011 1 Overview: age 70, lives in [place], [place]. No DC needs. / Pre-op testing 01/12/2011 01/18/2011 Overview: Images from the original note were not included. [facility] Surgeon: Zenon Sanders M.D. Informed Consent Completed: No STS Score: 1.4% CAD: Yes - CAD on Problem List: Yes Is intended procedure a CABG: Yes - is a beta isamar ordered? Yes H & P completed: Yes PA/LAT: Completed CT: Completed MRI: N/A LE US: N/A Cath: Yes - reviewed: Yes Echo:Completed EKG: Completed EF %: 61 PI's: N/A Carotid: Completed Mapping: N/A Dental: Completed PFT's: N/A Basename 01/10/11 0729 WBC 7.18 HB 13.1 HCT 41.8 PLT 192 INR 1.0 CREAT 1.35 UA: Normal HCG:N/A ABO/ABO Confirmed: Yes Blood ordered: No SA Swab: Yes - results: Pending Last Dose of Anticoagulation: vitamins Op Note: N/A Pacemaker Check: N/A Consults: GI 01/10/2001 DM: No Cardiac Surgical prep: No SIGNATURE: Dede Mims RN CHECKED BY: DATE of SERVICE: 01/12/2011 TIME of SERVICE: 2:23 PM Anemia of chronic disease 11/19/2010 Intestinal polyp 11/17/2010 10/03/2011 Overview: Distal ileum ulcerated polyp. 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) 04/22/2020 documented as of this encounter (statuses as of 12/21/2022) [facility] History of Past illness Narrative* Problem Noted Date Diagnosed Date Resolved Date Stasis ulcer 07/05/2022 11/04/2022 Obesity, Class II, BMI 35-39.9 04/22/2020 11/04/2022 Medicare annual wellness visit, subsequent 10/02/2018 02/18/2019 Encounter for long-term (cur rent) use of medications 09/07/2017 05/07/2021 Overview: Added automatically from request for surgery [id number] History of colonic polyps 09/07/2017 Overview: Added automatically from request for surgery [id number] Gastroesophageal reflux disease 09/07/2017 05/07/2021 Overview: Added automatically from request for surgery [id number] Acute pulmonary edema 01/19/20112010 Overview: 01/19/2011 cardiogenic and noncardiogenic factors Atelectasis 01/19/2011 01/20/2011 Hypotension 01/18/2011 01/20/2011 Overview: 01/18/2011 goal map 65-80 Stress hyperglycemia 01/18/2011 011 Overview: 01/18/2011 Perioperative insulin resistance and exacerbation of hyperglycemia. Control blood glucose with titration of insulin infusion 01/19/2011 adequate control goal FBG<180 Post-op pain 01/18/2011 01/20/2011 Mechanically assisted ventilation 01/18/2011 01/19/2011 Overview: 01/18/2011 optimize MV settings, WTE current setting:FiO2, 75%, peep 8 Cardiac insufficiency 01/18/20112010 Overview: 01/18/2011 RV mild to moderate post pump goal CI>2.3 Hypoxemia 01/18/2011 01/20/2011 discharge planning 01/12/2011 1 Overview: age 70, lives in [place], [place]. No DC needs. / Pre-op testing 01/12/2011 01/18/2011 Overview: Images from the original note were not included. [facility] Surgeon: Zenon Sanders M.D. Informed Consent Completed: No STS Score: 1.4% CAD: Yes - CAD on Problem List: Yes Is intended procedure a CABG: Yes - is a beta isamar ordered? Yes H & P completed: Yes PA/LAT: Completed CT: Completed MRI: N/A LE US: N/A Cath: Yes - reviewed: Yes Echo:Completed EKG: Completed EF %: 61 PI's: N/A Carotid: Completed Mapping: N/A Dental: Completed PFT's: N/A Basename 01/10/11 0729 WBC 7.18 HB 13.1 HCT 41.8 PLT 192 INR 1.0 CREAT 1.35 UA: Normal HCG:N/A ABO/ABO Confirmed: Yes Blood ordered: No SA Swab: Yes - results: Pending Last Dose of Anticoagulation: vitamins Op Note: N/A Pacemaker Check: N/A Consults: GI 01/10/2001 DM: No Cardiac Surgical prep: No SIGNATURE: Dede Mims RN CHECKED BY: DATE of SERVICE: 01/12/2011 TIME of SERVICE: 2:23 PM Anemia of chronic disease 11/19/2010 Intestinal polyp 11/17/2010 10/03/2011 Overview: Distal ileum ulcerated polyp. 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) 04/22/2020 documented as of this encounter (statuses as of 12/23/2022) [facility] History of Past illness Narrative* Problem Noted Date Diagnosed Date Resolved Date Stasis ulcer 07/05/2022 11/04/2022 Obesity, Class II, BMI 35-39.9 04/22/2020 11/04/2022 Medicare annual wellness visit, subsequent 10/02/2018 02/18/2019 Encounter for long-term (cur rent) use of medications 09/07/2017 05/07/2021 Overview: Added automatically from request for surgery [id number] History of colonic polyps 09/07/2017 Overview: Added automatically from request for surgery [id number] Gastroesophageal reflux disease 09/07/2017 05/07/2021 Overview: Added automatically from request for surgery [id number] Acute pulmonary edema 01/19/20112010 Overview: 01/19/2011 cardiogenic and noncardiogenic factors Atelectasis 01/19/2011 01/20/2011 Hypotension 01/18/2011 01/20/2011 Overview: 01/18/2011 goal map 65-80 Stress hyperglycemia 01/18/2011 011 Overview: 01/18/2011 Perioperative insulin resistance and exacerbation of hyperglycemia. Control blood glucose with titration of insulin infusion 01/19/2011 adequate control goal FBG<180 Post-op pain 01/18/2011 01/20/2011 Mechanically assisted ventilation 01/18/2011 01/19/2011 Overview: 01/18/2011 optimize MV settings, WTE current setting:FiO2, 75%, peep 8 Cardiac insufficiency 01/18/20112010 Overview: 01/18/2011 RV mild to moderate post pump goal CI>2.3 Hypoxemia 01/18/2011 01/20/2011 discharge planning 01/12/2011 1 Overview: age 70, lives in [place], [place]. No DC needs. / Pre-op testing 01/12/2011 01/18/2011 Overview: Images from the original note were not included. [facility] Surgeon: Zenon Sanders M.D. Informed Consent Completed: No STS Score: 1.4% CAD: Yes - CAD on Problem List: Yes Is intended procedure a CABG: Yes - is a beta isamar ordered? Yes H & P completed: Yes PA/LAT: Completed CT: Completed MRI: N/A LE US: N/A Cath: Yes - reviewed: Yes Echo:Completed EKG: Completed EF %: 61 PI's: N/A Carotid: Completed Mapping: N/A Dental: Completed PFT's: N/A Basename 01/10/11 0729 WBC 7.18 HB 13.1 HCT 41.8 PLT 192 INR 1.0 CREAT 1.35 UA: Normal HCG:N/A ABO/ABO Confirmed: Yes Blood ordered: No SA Swab: Yes - results: Pending Last Dose of Anticoagulation: vitamins Op Note: N/A Pacemaker Check: N/A Consults: GI 01/10/2001 DM: No Cardiac Surgical prep: No SIGNATURE: Dede Mims RN CHECKED BY: DATE of SERVICE: 01/12/2011 TIME of SERVICE: 2:23 PM Anemia of chronic disease 11/19/2010 Intestinal polyp 11/17/2010 10/03/2011 Overview: Distal ileum ulcerated polyp. 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) 04/22/2020 documented as of this encounter (statuses as of 12/26/2022) [facility] History of Past illness Narrative* Problem Noted Date Diagnosed Date Resolved Date Emiliesis ulcer 07/05/2022 11/04/2022 Obesity, Class II, BMI 35-39.9 04/22/2020 11/04/2022 Medicare annual wellness visit, subsequent 10/02/2018 02/18/2019 Encounter for long-term (cur rent) use of medications 09/07/2017 05/07/2021 Overview: Added automatically from request for surgery [id number] History of colonic polyps 09/07/2017 Overview: Added automatically from request for surgery [id number] Gastroesophageal reflux disease 09/07/2017 05/07/2021 Overview: Added automatically from request for surgery [id number] Acute pulmonary edema 01/19/20112010 Overview: 01/19/2011 cardiogenic and noncardiogenic factors Atelectasis 01/19/2011 01/20/2011 Hypotension 01/18/2011 01/20/2011 Overview: 01/18/2011 goal map 65-80 Stress hyperglycemia 01/18/2011 011 Overview: 01/18/2011 Perioperative insulin resistance and exacerbation of hyperglycemia. Control blood glucose with titration of insulin infusion 01/19/2011 adequate control goal FBG<180 Post-op pain 01/18/2011 01/20/2011 Mechanically assisted ventilation 01/18/2011 01/19/2011 Overview: 01/18/2011 optimize MV settings, WTE current setting:FiO2, 75%, peep 8 Cardiac insufficiency 01/18/20112010 Overview: 01/18/2011 RV mild to moderate post pump goal CI>2.3 Hypoxemia 01/18/2011 01/20/2011 discharge planning 01/12/2011 1 Overview: age 70, lives in [place], [place]. No DC needs. / Pre-op testing 01/12/2011 01/18/2011 Overview: Images from the original note were not included. [facility] Surgeon: Zenon Sanders M.D. Informed Consent Completed: No STS Score: 1.4% CAD: Yes - CAD on Problem List: Yes Is intended procedure a CABG: Yes - is a beta isamar ordered? Yes H & P completed: Yes PA/LAT: Completed CT: Completed MRI: N/A LE US: N/A Cath: Yes - reviewed: Yes Echo:Completed EKG: Completed EF %: 61 PI's: N/A Carotid: Completed Mapping: N/A Dental: Completed PFT's: N/A Basename 01/10/11 0729 WBC 7.18 HB 13.1 HCT 41.8 PLT 192 INR 1.0 CREAT 1.35 UA: Normal HCG:N/A ABO/ABO Confirmed: Yes Blood ordered: No SA Swab: Yes - results: Pending Last Dose of Anticoagulation: vitamins Op Note: N/A Pacemaker Check: N/A Consults: GI 01/10/2001 DM: No Cardiac Surgical prep: No SIGNATURE: Dede Mims RN CHECKED BY: DATE of SERVICE: 01/12/2011 TIME of SERVICE: 2:23 PM Anemia of chronic disease 11/19/2010 Intestinal polyp 11/17/2010 10/03/2011 Overview: Distal ileum ulcerated polyp. 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) 04/22/2020 documented as of this encounter (statuses as of 12/28/2022) [facility] [facility]-21-2023 History of Past illness Narrative* Problem Noted Date Diagnosed Date Resolved Date Stasis ulcer 07/05/2022 11/04/2022 Obesity, Class II, BMI 35-39.9 04/22/2020 11/04/2022 Medicare annual wellness visit, subsequent 10/02/2018 02/18/2019 Encounter for long-term (cur rent) use of medications 09/07/2017 05/07/2021 Overview: Added automatically from request for surgery [id number] History of colonic polyps 09/07/2017 Overview: Added automatically from request for surgery [id number] Gastroesophageal reflux disease 09/07/2017 05/07/2021 Overview: Added automatically from request for surgery [id number] Acute pulmonary edema 01/19/20112010 Overview: 01/19/2011 cardiogenic and noncardiogenic factors Atelectasis 01/19/2011 01/20/2011 Hypotension 01/18/2011 01/20/2011 Overview: 01/18/2011 goal map 65-80 Stress hyperglycemia 01/18/2011 011 Overview: 01/18/2011 Perioperative insulin resistance and exacerbation of hyperglycemia. Control blood glucose with titration of insulin infusion 01/19/2011 adequate control goal FBG<180 Post-op pain 01/18/2011 01/20/2011 Mechanically assisted ventilation 01/18/2011 01/19/2011 Overview: 01/18/2011 optimize MV settings, WTE current setting:FiO2, 75%, peep 8 Cardiac insufficiency 01/18/20112010 Overview: 01/18/2011 RV mild to moderate post pump goal CI>2.3 Hypoxemia 01/18/2011 01/20/2011 discharge planning 01/12/2011 1 Overview: age 70, lives in [place], [place]. No DC needs. / Pre-op testing 01/12/2011 01/18/2011 Overview: Images from the original note were not included. [facility] PRE[facility] Surgeon: Zenon Sanders M.D. Informed Consent Completed: No STS Score: 1.4% CAD: Yes - CAD on Problem List: Yes Is intended procedure a CABG: Yes - is a beta isamar ordered? Yes H & P completed: Yes PA/LAT: Completed CT: Completed MRI: N/A LE US: N/A Cath: Yes - reviewed: Yes Echo:Completed EKG: Completed EF %: 61 PI's: N/A Carotid: Completed Mapping: N/A Dental: Completed PFT's: N/A Basename 01/10/11 0729 WBC 7.18 HB 13.1 HCT 41.8 PLT 192 INR 1.0 CREAT 1.35 UA: Normal HCG:N/A ABO/ABO Confirmed: Yes Blood ordered: No SA Swab: Yes - results: Pending Last Dose of Anticoagulation: vitamins Op Note: N/A Pacemaker Check: N/A Consults: GI 01/10/2001 DM: No Cardiac Surgical prep: No SIGNATURE: Dede Mims RN CHECKED BY: DATE of SERVICE: 01/12/2011 TIME of SERVICE: 2:23 PM Anemia of chronic disease 11/19/2010 Intestinal polyp 11/17/2010 10/03/2011 Overview: Distal ileum ulcerated polyp. 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) 04/22/2020 documented as of this encounter (statuses as of 01/02/2023) [facility]03-21-2023 History of Past illness Narrative* Problem Noted Date Diagnosed Date Resolved Date Stasis ulcer 07/05/2022 11/04/2022 Obesity, Class II, BMI 35-39.9 04/22/2020 11/04/2022 Medicare annual wellness visit, subsequent 10/02/2018 02/18/2019 Encounter for long-term (cur rent) use of medications 09/07/2017 05/07/2021 Overview: Added automatically from request for surgery [id number] History of colonic polyps 09/07/2017 Overview: Added automatically from request for surgery [id number] Gastroesophageal reflux disease 09/07/2017 05/07/2021 Overview: Added automatically from request for surgery [id number] Acute pulmonary edema 01/19/20112010 Overview: 01/19/2011 cardiogenic and noncardiogenic factors Atelectasis 01/19/2011 01/20/2011 Hypotension 01/18/2011 01/20/2011 Overview: 01/18/2011 goal map 65-80 Stress hyperglycemia 01/18/2011 011 Overview: 01/18/2011 Perioperative insulin resistance and exacerbation of hyperglycemia. Control blood glucose with titration of insulin infusion 01/19/2011 adequate control goal FBG<180 Post-op pain 01/18/2011 01/20/2011 Mechanically assisted ventilation 01/18/2011 01/19/2011 Overview: 01/18/2011 optimize MV settings, WTE current setting:FiO2, 75%, peep 8 Cardiac insufficiency 01/18/20112010 Overview: 01/18/2011 RV mild to moderate post pump goal CI>2.3 Hypoxemia 01/18/2011 01/20/2011 discharge planning 01/12/2011 1 Overview: age 70, lives in [place], [place]. No DC needs. / Pre-op testing 01/12/2011 01/18/2011 Overview: Images from the original note were not included. [facility] PRE-OP CHECKLIST Surgeon: Zenon Sanders M.D. Informed Consent Completed: No STS Score: 1.4% CAD: Yes - CAD on Problem List: Yes Is intended procedure a CABG: Yes - is a beta isamar ordered? Yes H & P completed: Yes PA/LAT: Completed CT: Completed MRI: N/A LE US: N/A Cath: Yes - reviewed: Yes Echo:Completed EKG: Completed EF %: 61 PI's: N/A Carotid: Completed Mapping: N/A Dental: Completed PFT's: N/A Basename 01/10/11 0729 WBC 7.18 HB 13.1 HCT 41.8 PLT 192 INR 1.0 CREAT 1.35 UA: Normal HCG:N/A ABO/ABO Confirmed: Yes Blood ordered: No SA Swab: Yes - results: Pending Last Dose of Anticoagulation: vitamins Op Note: N/A Pacemaker Check: N/A Consults: GI 01/10/2001 DM: No Cardiac Surgical prep: No SIGNATURE: Dede Mims RN CHECKED BY: DATE of SERVICE: 01/12/2011 TIME of SERVICE: 2:23 PM Anemia of chronic disease 11/19/2010 Intestinal polyp 11/17/2010 10/03/2011 Overview: Distal ileum ulcerated polyp. 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) 04/22/2020 documented as of this encounter (statuses as of 01/06/2023) [facility]03-21-2023 History of Past illness Narrative* Problem Noted Date Diagnosed Date Resolved Date Stasis ulcer 07/05/2022 11/04/2022 Obesity, Class II, BMI 35-39.9 04/22/2020 11/04/2022 Medicare annual wellness visit, subsequent 10/02/2018 02/18/2019 Encounter for long-term (cur rent) use of medications 09/07/2017 05/07/2021 Overview: Added automatically from request for surgery [id number] History of colonic polyps 09/07/2017 Overview: Added automatically from request for surgery [id number] Gastroesophageal reflux disease 09/07/2017 05/07/2021 Overview: Added automatically from request for surgery [id number] Acute pulmonary edema 01/19/20112010 Overview: 01/19/2011 cardiogenic and noncardiogenic factors Atelectasis 01/19/2011 01/20/2011 Hypotension 01/18/2011 01/20/2011 Overview: 01/18/2011 goal map 65-80 Stress hyperglycemia 01/18/2011 011 Overview: 01/18/2011 Perioperative insulin resistance and exacerbation of hyperglycemia. Control blood glucose with titration of insulin infusion 01/19/2011 adequate control goal FBG<180 Post-op pain 01/18/2011 01/20/2011 Mechanically assisted ventilation 01/18/2011 01/19/2011 Overview: 01/18/2011 optimize MV settings, WTE current setting:FiO2, 75%, peep 8 Cardiac insufficiency 01/18/20112010 Overview: 01/18/2011 RV mild to moderate post pump goal CI>2.3 Hypoxemia 01/18/2011 01/20/2011 discharge planning 01/12/2011 1 Overview: age 70, lives in [place], [place]. No DC needs. / Pre-op testing 01/12/2011 01/18/2011 Overview: Images from the original note were not included. [facility] PRE-[facility] Surgeon: Zenon Sanders M.D. Informed Consent Completed: No STS Score: 1.4% CAD: Yes - CAD on Problem List: Yes Is intended procedure a CABG: Yes - is a beta isamar ordered? Yes H & P completed: Yes PA/LAT: Completed CT: Completed MRI: N/A LE US: N/A Cath: Yes - reviewed: Yes Echo:Completed EKG: Completed EF %: 61 PI's: N/A Carotid: Completed Mapping: N/A Dental: Completed PFT's: N/A Basename 01/10/11 0729 WBC 7.18 HB 13.1 HCT 41.8 PLT 192 INR 1.0 CREAT 1.35 UA: Normal HCG:N/A ABO/ABO Confirmed: Yes Blood ordered: No SA Swab: Yes - results: Pending Last Dose of Anticoagulation: vitamins Op Note: N/A Pacemaker Check: N/A Consults: GI 01/10/2001 DM: No Cardiac Surgical prep: No SIGNATURE: Dede Mims RN CHECKED BY: DATE of SERVICE: 01/12/2011 TIME of SERVICE: 2:23 PM Anemia of chronic disease 11/19/2010 Intestinal polyp 11/17/2010 10/03/2011 Overview: Distal ileum ulcerated polyp. 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) 04/22/2020 documented as of this encounter (statuses as of 01/10/2023) [facility]03-21-2023 History of Past illness Narrative* Problem Noted Date Diagnosed Date Resolved Date Stasis ulcer 07/05/2022 11/04/2022 Obesity, Class II, BMI 35-39.9 04/22/2020 11/04/2022 Medicare annual wellness visit, subsequent 10/02/2018 02/18/2019 Encounter for long-term (cur rent) use of medications 09/07/2017 05/07/2021 Overview: Added automatically from request for surgery [id number] History of colonic polyps 09/07/2017 Overview: Added automatically from request for surgery [id number] Gastroesophageal reflux disease 09/07/2017 05/07/2021 Overview: Added automatically from request for surgery [id number] Acute pulmonary edema 01/19/20112010 Overview: 01/19/2011 cardiogenic and noncardiogenic factors Atelectasis 01/19/2011 01/20/2011 Hypotension 01/18/2011 01/20/2011 Overview: 01/18/2011 goal map 65-80 Stress hyperglycemia 01/18/2011 011 Overview: 01/18/2011 Perioperative insulin resistance and exacerbation of hyperglycemia. Control blood glucose with titration of insulin infusion 01/19/2011 adequate control goal FBG<180 Post-op pain 01/18/2011 01/20/2011 Mechanically assisted ventilation 01/18/2011 01/19/2011 Overview: 01/18/2011 optimize MV settings, WTE current setting:FiO2, 75%, peep 8 Cardiac insufficiency 01/18/20112010 Overview: 01/18/2011 RV mild to moderate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 electrophoresis. An M protein is identified on protein electrophoresis. (A) Interpretation Comment for Protein Electrophoresis See separate immunofixation report for characterization of monoclonal gammopathy. . . . M-Protein Location Gamma Fraction 1 M-Protein Concentration <=0.00 g/dL 0.30 (H) SPE Staff Review Reviewed by Charity Stephenson MD Component Latest Ref Rng & Units 03/22/2022 [place] Free, Serum 3.3 - 19.4 mg/L 65.0 (H) Lambda Free, Serum 5.7 - 26.3 mg/L 37.1 (H) K/L Ratio, Serum 0.26 - 1.65 1.75 (H) IgG kappa on immunofixation of serum. Component Latest Ref Rng & Units 05/02/2022 PTH, Intact 15 - 65 pg/mL 69 (H) PATHOLOGY: Bone marrow biopsy done at [facility] 05/05/2022: Hypercellular bone marrow with trilineage hematopoiesis. No evidence of lymphoproliferative disorder or plasma cell dyscrasia. Flow cytometry did not reveal evidence of lymphoproliferative disorder. There was no monoclonal plasma cell neoplasm. Plasma cells reported at 2% on aspirate. Iron was reported as rare stainable iron. Fluorescence in situ hybridization for BCR ABL was negative. 46 XY [20]. IMAGING: US 03/28/2022: IMPRESSION: 1. There is a new hyperechoic nodule in the right lobe of the liver which could be further evaluated by MRI 2. Nodular contour of the liver which may be due to cirrhosis 3. Splenomegaly Bone survey 03/24/2022: IMPRESSION: SEVERAL SUBCENTIMETER LUCENT AREAS IN THE CALVARIUM. DIFFUSE OSTEOPENIA. DEGENERATIVE CHANGES DESCRIBED. POSTOPERATIVE CHANGES DESCRIBED. NO ADDITIONAL FOCAL LYTIC OR BLASTIC ABNORMALITY IS APPRECIATED. 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 He has no history of diabetes but has longstanding worsening sensory neuropathy of the feet and left hand. He has polycystic kidney disease as well as chronic mild hypercalcemia with elevation of PTH and stable serumcreatinine over time. Referred for possible serum monoclonal antibody on electrophoresis of the serum. Urine negative for monoclonal protein on electrophoresis. -Low-level IgG kappa monoclonal gammopathy. -Previous hypercalcemia secondary to hyperparathyroidism. -Bone survey revealed no lytic lesions. -Previous hypercalcemia from hyperparathyroidism. -I reviewed the results of the bone marrow biopsy in detail with the patient and his daughter. No evidence of smoldering myeloma or multiple myeloma. -I discussed the natural history, treated course, and prognosis of MGUS with the patient and his daughter. Plan: -Reassess in 1 year pending results of today's lab work. (D50.0) Iron deficiency anemia due to chronic blood loss (D69.6) Thrombocytopenia (HCC) Assessment: -He also has macrocytic anemia and thrombocytopenia. Prior reports of splenomegaly. I previously personally reviewed CT images from 2013 and 2014. In 2014, spleen measured up to about 16 cm in craniocaudal dimension. No mention of fatty liver or other morphologic changes of the liver to suggest cirrhosis. -Ultrasound suggestive of cirrhosis with splenomegaly. -Likely some splenic sequestration of platelets. -Ferritin was low indicating iron deficiency. Feels much better after parenteral iron. -He is going to be scheduled with GI for colonoscopy at [facility]. Could not be done here. Plan: -Follow-up with colonoscopy. -Repeat CBC and iron studies in about 3 months. (E21.3) Hyperparathyroidism (HCC) Assessment: -Serum PTH level elevated. Plan: -Defer management to PCP. (K74.69) Other cirrhosis of liver (HCC) Assessment: -Established with hepatology. -Was told needs closed MRI. Open would not give adequate pictures to further investigate the potential mass. Plan: -Follow up with hepatology. Portions of this documentation were copied and pasted from previous office visit notes in order to provide a cohesive continuity of the history. The note has been reviewed and edited and updated as necessary. I spent a total of 40 minutes on the date of the service which included preparing to see the patient, [id number] patient care, completing clinical documentation, obtaining and/or reviewing separately obtained history, performing a medically appropriate examination, counseling and educating the pat ient/family/caregiver, communicating with other HCPs (not separately reported), independently interpreting results (not separately reported), and communicating results to the patient/family/caregiver. Yuniel Dahl DO documented in this encounterThe [facility] Hospital [facility]woods01-26-2023 Miscellaneous Notes* Telephone Encounter - Adriana Borjas LPN - 05/12/2022 10:03 AM EST Faxed office note and message of referral request to Dr Gaspar. fax# [phone] * Telephone Encounter - Ingrid Morales PA-C - 05/12/2022 8:17 AM EST Please fax referral request including my recent office note to Dr. Gaspar's office for EGD with possible banding of esophageal varices, and colonoscopy for anemia and history of colon polyps documented in this encounterThe Surgical Hospital At [facility]woods01-23-2023 Miscellaneous Notes* Telephone Encounter - Joan Kam - 05/09/2022 2:48 PM EST Pt's D2 canceled and added on as a new D10 * Telephone Encounter - Rxoanna Campbell LPN - 05/09/2022 1:52 PM EST Daughter is aware of Dr. Dahl's recommendations. She is afraid that the patient is too weak and she will not be able to get him out of the house and into a car for urgent care/PCP visit. I instructed her if that was the case to call a squad and have patient transported to the ER. PSS- D2 iron will need rescheduled. Roxanna Campbell LPN * Telephone Encounter - Gayla Lincoln RN - 05/09/2022 1:30 PM EST Called daughter, no answer, left a message requesting a call back. Per Dr. Dahl verbal response, okay to cancel iron today so patient can be evaluated elsewhere. Gayla Lincoln RN I canceled iron infusion for today. PSS- D2 iron will need rescheduled. Roxanna Campbell LPN * Telephone Encounter - Yuniel Dahl DO - 05/09/2022 1:17 PM EST I don't think this is related to the iron infusions. He may have some sort of acute viral infectionso I would encourage her to take him to urgent care or talk to PCPs office about an urgent visit. Yuniel Dahl DO * Telephone Encounter - Gayla Lincoln RN - 05/09/2022 9:57 AM EST Spoke to daughter. Daughter stated on Monday, patient had c/o diarrhea and extreme fatigue and didn't feel like doing anything. Yesterday his energy was a little bit better, patient was able to get up and move around. Daughter stated patients appetite is decreased but she was able to get him toeat chili and potato salad yesterday. Yesterday around 3:00 pm, patient fell when he was opening his front door to let his dog out. Per daughter, patient has bad neuropathy in his feet; left foot is worse, he drags his left foot. Daughter denies patient hitting his head or dizziness or visual changes related to the fall. Today, patients temperature is 99 F, he has chills, and at 6:00 am, patient had nausea and 1 episode of green emesis. Daughter denies headaches or cold symptoms. Daughter denies known sick contacts. Daughter aware this nurse will provide Dr. Dahl with an update and will call back with further instructions. Daughter stated understanding. Gayla Lincoln RN * Telephone Encounter - Meseret Zafar - 05/09/2022 9:13 AM EST Patient received iron infusion 05/06/22. His daughter calls in stating that the patient has been experiencing severe fatigue, nausea, and a slightly elevated temperature. Daughter is requesting to be contacted to discuss plan of care. He is scheduled to receive another iron treatment today. documented in this encounterThe Surgical Hospital At [facility]woods01-23-2023 Miscellaneous Notes* Telephone Encounter - Gayla Lincoln RN - 05/09/2022 10:34 AM EST Addressed in separate phone encounter. Gayla Lincoln RN * Telephone Encounter - Roxanna Campbell LPN - 05/09/2022 9:17 AM EST See phone note from 05/09/2022. Roxanna Campbell LPN documented in this encounterThe Surgical Hospital At [facility]woods01-19-2023 NoteGreen Cross Hospital01-19-2023 Instructions* Patient Instructions* Ricky Bradley MD - 05/05/2022 3:42 PM EST DO NOT TAKE FUROSEMIDE WHILE TAKING TORSEMIDE. START TORSEMIDE TOMORROW. START ANTIBIOTIC TONIGHT. documented in this encounterThe Surgical Hospital At Southwoods01-19-2023 History of Present illness Narrative* Ricky Bradley MD - 05/05/2022 3:31 PM EST This note was created using [employer]. Subjective Satya Medellin is a 82 year old male here with daughter. He developed an itchy rash of both legs one week ago and he was applying capsaicin and other creams with no improvement. His blood pressure continued to be low, so most medications were discontinued other than mg every other day. His urinary incontinence was progressing, and aside from urge incontinence, he had incontinence without awareness. Review of Systems Constitutional: Negative for chills and fever. Respiratory: Negative for shortness of breath. Cardiovascular: Positive for leg swelling. Negative for chest pain and palpitations. Genitourinary: Positive for urgency. Incontinence. 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 LORazepam (ATIVAN) 1 mg tablet Take 1 tablet by mouth 1 hour before MRI ascorbic acid-elderberry fruit 100-50 mg chew Take 2 tablets by mouth once daily. cyanocobalamin (VITAMIN B-12) 2,500 mcg tablet Take 2,500 mcg by mouth once daily. melatonin 10 mg tab Take 1 tablet by mouth as needed. aspirin, enteric coated (ASPIRIN, ENTERIC COATED) 81 mg EC tablet Take 81 mg by mouth once daily. albuterol HFA (PROVENTIL HFA, VENTOLIN HFA) 90 mcg/actuation inhaler Inhale 2 Puffs as instructed every 4 hours as needed for wheezing/shortness of breath. omeprazole (PRILOSEC) 40 mg capsule Take 1 capsule by mouth once daily. allopurinol (ZYLOPRIM) 300 mg tablet Take 1 tablet by mouth once daily. magnesium oxide 400 mg magnesium cap Take 1 capsule by mouth once daily. fenofibrate nanocrystallized (TRICOR) 48 mg tablet Take 1 tablet by mouth once daily. sertraline (ZOLOFT) 50 mg tablet Take 1 tablet by mouth once daily. nitroglycerin sublingual (NITROQUICK) 0.4 mg SL tablet Dissolve 1 tablet under the tongue every 5 minutes as needed for chest pain. FOR CHEST PAIN. IF NO RELIEF CALL 911 fluticasone (FLONASE) 50 mcg/actuation nasal spray Use 1 [place] in each nostril once daily. ferrous sulfate 325 mg (65 mg iron) EC tablet Take 1 tablet by mouth twice daily with meals. (Patient taking differently: Take 325 mg by mouth once daily.) oxybutynin ER (DITROPAN XL) 15 mg 24 hr Extended Rel Tab Take 2 tablets by mouth once daily. amoxicillin (POLYMOX, AMOXIL) 500 mg capsule Take four tablets, one hour prior to dental work (Patient taking differently: Take four tablets by mouth , one hour prior to dental work) fluticasone-vilanterol (BREO ELLIPTA) 200-25 mcg/dose inhaler Inhale 1 Inhalation as instructed once daily. Inhale one puff once daily. DO NOT CLICK OPEN UNTIL READY FOR DOSE multivitamin tablet Take 1 tablet by mouth once daily. torsemide (DEMADEX) 20 mg tablet Take 1 tablet by mouth once daily for 5 days. doxycycline (VIBRA-TABS) 100 mg tablet Take 1 tablet by mouth twice daily for 7 days. Diaper,Brief, Adult,Disposable (DEPEND EASY FIT UNDERGARMENTS) 1 Each three times daily. No current facility-administered medications for this visit. Objective BP 114/64 (BP Site: Left Arm, BP Position: Sitting, BP Cuff Size: Large Adult) Pulse 76 Temp 36.2 C (97.2 F) (Temporal) Resp 16 Wt 111.6 kg (246 lb) BMI 38.53 kg/m Physical Exam Constitutional: General: He is not in acute distress. Appearance: He is not ill-appearing. Cardiovascular: Rate and Rhythm: Normal rate and regular rhythm. Heart sounds: No murmur heard. Pulmonary: Effort: No respiratory distress. Breath sounds: No wheezing or rales. Musculoskeletal: General: No tenderness. Right lower le+ Edema present. Left lower le+ Edema present. Skin: Findings: Erythema and rash present. Comments: Linear excoriations with erythema on both lower legs, no seepage, no ulcers, no drainage,some warmth, right more than left. Neurological: Mental Status: He is alert. Gait: Gait abnormal. Assessment and Plan 1. Stasis dermatitis of both legs - ICD9: 454.1, ICD10: I87.2 (primary diagnosis) - TORSEMIDE 20 MG TABLET 2. Local skin infection - ICD9: 686.9, ICD10: L08.9 - Begin treatment with - DOXYCYCLINE HYCLATE 100 MG TABLET 3. Urge incontinence of urine - ICD9: 788.31, ICD10: N39.41 - DEPEND EASY FIT UNDERGARMENTS MISC 4. Peripheral polyneuropathy - ICD9: 356.9, ICD10: G62.9 - DEPEND EASY FIT UNDERGARMENTS MISC Further recommendations will depend on response by next week. Ricky Bradley MD documented in this encounterThe Surgical Hospital At [facility]01-16-2023 NoteGreen Cross Hospital01-16-2023 History of Present illness Narrative* Ingrid Morales PA-C - 05/02/2022 1:38 PM EST HISTORY AND PHYSICAL Satya Plummer Lacie 1940 REFERRING PHYSICIAN: Yuniel Dahl DO CHIEF COMPLAINT: Consult (colonoscopy) HPI: The patient is a 82 year old male referred for endoscopy. Satya notes iron deficiency anemiaand was referred by hem/onc for endoscopic evaluation of possible GI source of bleeding. Patient denies any change in bowel habits, weight changes, blood in stools, black tarry stools or abdominal pain. Denies family history of colon issues. The patient NOTES acid reflux. Satya has undergone prior endoscopy. Last EGD was in April [address] Bello with findings ofgastritis, esophagitis, hiatal hernia. Last colonoscopy 10/02/[address] Crump with removal of multiple adenomatous polyps, three year follow-up recommended. Patient's past medical history is significant for cirrhosis for which he follows with Gastroenterology. Notes mention possibility of esophageal varices which may require banding. 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 ASSIST ENTEROSCOPY W/ BX 01/14/2011 CAPSULE ENDO SMALL BOWEL W EGD 11/19/2010 COLONOSCOPY FLX DX W/COLLJ SPEC WHEN PFRMD 2000 Colonoscopy COLONOSCOPY FLX DX W/COLLJ SPEC WHEN PFRMD 2003 Colonoscopy COLONOSCOPY FLX DX W/COLLJ SPEC WHEN PFRMD 11/17/2010 Colonoscopy COLONOSCOPY FLX DX W/COLLJ SPEC WHEN PFRMD 10/02/2017 Colonoscopy COLONOSCOPY W/BIOPSY SINGLE/MULTIPLE 05/07/2007 ESOPHAGOGASTRODUODENOSCOPY TRANSORAL DIAGNOSTIC 10/02/2017 EGD ESOPHAGOGASTRODUODENOSCOPY TRANSORAL DIAGNOSTIC 04/08/2019 EGD ESOPHAGOGASTRODUODENOSCOPY TRANSORAL DIAGNOSTIC 05/09/2019 EGD EXCISION PILONIDAL CYST/SINUS SIMPLE 1964 HEMORRHOIDECTOMY INTERNAL RUBBER BAND LIGATIONS 12/29/2017 824 and 12/29/17 OPTX FEM SHFT FX W/INSJ IMED IMPLT W/WO SCREW Left 09/03/2019 L hip cephalo medullary nail. RPLCMT AORTIC VALVE OPN W/STENTLESS TISSUE VALVE 01/18/2011 25-mm Shannan-Fisher pericardial prosthesis via upper ministernotomy. RPR UMBILICAL HRNA 5 YRS/> REDUCIBLE 12/25/2009 Hernia repair, umbilical >5yr Current Outpatient Medications Medication Sig furosemide (LASIX) 20 mg tablet TAKE 1 TABLET BY MOUTH EVERY OTHER RDAY atenolol (TENORMIN) 50 mg tablet Take 1 tablet by mouth once daily. ascorbic acid, vitamin C, (VITAMIN C) 500 mg tablet Take 1 tablet by mouth once daily. ascorbic acid-elderberry fruit 100-50 mg chew Take 2 tablets by mouth once daily. cyanocobalamin (VITAMIN B-12) 2,500 mcg tablet Take 2,500 mcg by mouth once daily. melatonin 10 mg tab Take 1 tablet by mouth as needed. aspirin, enteric coated (ASPIRIN, ENTERIC COATED) 81 mg EC tablet Take 81 mg by mouth once daily. albuterol HFA (PROVENTIL HFA, VENTOLIN HFA) 90 mcg/actuation inhaler Inhale 2 Puffs as instructed every 4 hours as needed for wheezing/shortness of breath. omeprazole (PRILOSEC) 40 mg capsule Take 1 capsule by mouth once daily. allopurinol (ZYLOPRIM) 300 mg tablet Take 1 tablet by mouth once daily. magnesium oxide 400 mg magnesium cap Take 1 capsule by mouth once daily. fenofibrate nanocrystallized (TRICOR) 48 mg tablet Take 1 tablet by mouth once daily. sertraline (ZOLOFT) 50 mg tablet Take 1 tablet by mouth once daily. nitroglycerin sublingual (NITROQUICK) 0.4 mg SL tablet Dissolve 1 tablet under the tongue every 5 minutes as needed for chest pain. FOR CHEST PAIN. IF NO RELIEF CALL 911 fluticasone (FLONASE) 50 mcg/actuation nasal spray Use 1 Sewell in each nostril once daily. ferrous sulfate 325 mg (65 mg iron) EC tablet Take 1 tablet by mouth twice daily with meals. (Patient taking differently: Take 325 mg by mouth once daily.) oxybutynin ER (DITROPAN XL) 15 mg 24 hr Extended Rel Tab Take 2 tablets by mouth once daily. amoxicillin (POLYMOX, AMOXIL) 500 mg capsule Take four tablets, one hour prior to dental work (Patient taking differently: Take four tablets by mouth , one hour prior to dental work) betamethasone valerate 0.1 % lotion Apply to affected area twice daily. fluticasone-vilanterol (BREO ELLIPTA) 200-25 mcg/dose inhaler Inhale 1 Inhalation as instructed once daily. Inhale one puff once daily. DO NOT CLICK OPEN UNTIL READY FOR DOSE multivitamin tablet Take 1 tablet by mouth once daily. lisinopril (ZESTRIL, PRINIVIL) 40 mg tablet Take 40 mg by mouth once daily. (Patient not taking: Reported on 05/02/2022) No current facility-administered medications for this visit. ALLERGIES: Bees, Acetaminophen, Hydrocodone, Lipitor [Atorvastatin Calcium], Singulair [MontelukastSodium], and Strawberries PERSONAL HISTORY: Social History Tobacco Use Smoking status: Never Smokeless tobacco: Never Vaping Use Vaping Use: Never used Substance Use Topics Alcohol use: No Drug use: No FAMILY HISTORY: FAMILY HISTORY Problem Relation Age of Onset Heart Mother in 70's Coronary Artery Disease Father in his 80's Emphysema Father Diabetes Brother REVIEW OF SYMPTOMS: The review of systems data was entered by the nurse and reviewed by hi Nursing Notes: Priscila Rose RN 05/02/2022 1:19 PM Signed REVIEW OF SYSTEMS: General: The patient NOTES fatigue, denies weight loss, denies weight gain, denies feeling hot, andNOTES feelings of cold. Eyes: The patient denies glaucoma, NOTES eye injury/surgery, wears glasses or contacts. Ear/Nose/Throat: The patient NOTES allergies, denies hayfever, denies ear infections, and denies bloody noses. Cardiovascular: The patient denies chest pain, denies heart disease, NOTES high blood pressure,denies cardiac stent, denies prior heart attack, denies irregular heart beat, NOTES high cholesterol, denies poor circulation, NOTESheart failure, other cardiac issues, denies claudication, denies cold feet, denies peripheral arterial stent. Respiratory: The patient denies tuberculosis, denies pneumonia, denies frequent cough, denies pulmonary embolism, NOTES shortness of breath, and denies coughing up blood. Gastrointestinal: The patient denies difficulty swallowing, NOTES acid reflux, denies ulcers, denies vomiting, denies jaundice/hepatitis, denies gallbladder problems, denies black or tarry stools, denies hemorrhoids, denies bleeding from rectum, NOTES diverticulitis, denies constipation, denies diarrhea, denies loss of stool control, and denies hernias. Kidney/Bladder: The patient denies kidney stones, denies urine infections, and denies bloody urine. Skin: The patient denies a history of skin cancer, denies bleeding/changing moles, and denies a history of skin rash. Neurologic: The patient denies a history of epilepsy/convulsions, denies headaches, denies head/spinal injuries, and denies stroke/TIA. Psychiatric: The patient denies psychiatric medications, denies depression, and denies voices, denies substance abuse. Endocrine: The patient denies thyroid disorders, denies diabetes, and denies hormonal problems. Hematologic: The patient denies a history of bruising, denies bleeding, and denies anemia, denies blood clots. Infections: The patient denies a history of measles and mumps, denies rheumatic fever, and denies sexually transmitted diseases. Musculoskeletal: The patient denies back pain/injury, denies back problems, denies sciatica, NOTES knee/foot trouble, NOTES arthritis, or denies gout. Last colon 2018 Priscila Rose RN I have confirmed and edited as necessary, the PFSH and ROS obtained by others Ingrid Morales PA-C PHYSICAL EXAMINATION: General: The patient is 82 year old male, well nourished, well hydrated in no acute distress. The patient is oriented to time, place, and person. VITALS: Blood pressure 140/80, pulse 110, temperature 37.2 C (98.9 F), height 170.2 cm (5' 7 ), weight 114.3 kg (252 lb), SpO2 94 %. Body mass index is 39.47 kg/m . HEENT: Normal cephalic, ataumatic, pupils are equally round, sclera are anicteric, mucous membranesare moist, oropharynx is clear. Neck has no masses, asymmetry or lymphadenopathy. Respiratory: Clear to auscultation and percussion. Normal respiratory excursion and pattern. Cardiac: Examination is regular rate and rhythm. Normal S1/S2 Abdominal exam: Soft, nontender, with no palpable masses. No hepatosplenomegaly. No palpable hernias. Extremities: no clubbing, cyanosis or edema. No adenopathy. LABORATORY VALUES: As Noted RADIOLOGIC STUDIES: As Noted Assessment IMPRESSION: history of colon polyps, anemia, cirrhosis PLAN: I have reviewed my findings with the surgeon. Patient referred for upper and lower endoscopy for evaluation of possible GI bleeding. Patient would require MAC due to medical comorbidities. Due to the possibility of esophageal varices which may require banding (a [facility] would recommend that patient have his upper and lower endoscopy performed by a research anthropologist who could perform banding at time of endoscopy if needed based on findings. This was relayed to the patient and his daughter, who verbalized understanding. Diagnoses: (D50.9) Iron deficiency anemia, unspecified iron deficiency anemia type (primary encounter diagnosis) (Z86.010) History of colonic polyps (Z87.19) History of cirrhosis Consultation requested by Dr. Dahl for an opinion regarding anemia. My final recommendations will be communicated back to the requesting physician by way of shared Medical record or letter to requesting physician via US mail. Ingrid Morales PA-C documented in this encounterThe [facility]01-16-2023 Nurse Note* Priscila Rose RN - 05/02/2022 1:16 PM EST REVIEW OF SYSTEMS: General: The patient NOTES fatigue, denies weight loss, denies weight gain, denies feeling hot, andNOTES feelings of cold. Eyes: The patient denies glaucoma, NOTES eye injury/surgery, wears glasses or contacts. Ear/Nose/Throat: The patient NOTES allergies, denies hayfever, denies ear infections, and denies bloody noses. Cardiovascular: The patient denies chest pain, denies heart disease, NOTES high blood pressure,denies cardiac stent, denies prior heart attack, denies irregular heart beat, NOTES high cholesterol, denies poor circulation, NOTESheart failure, other cardiac issues, denies claudication, denies cold feet, denies peripheral arterial stent. Respiratory: The patient denies tuberculosis, denies pneumonia, denies frequent cough, denies pulmonary embolism, NOTES shortness of breath, and denies coughing up blood. Gastrointestinal: The patient denies difficulty swallowing, NOTES acid reflux, denies ulcers, denies vomiting, denies jaundice/hepatitis, denies gallbladder problems, denies black or tarry stools, denies hemorrhoids, denies bleeding from rectum, NOTES diverticulitis, denies constipation, denies diarrhea, denies loss of stool control, and denies hernias. Kidney/Bladder: The patient denies kidney stones, denies urine infections, and denies bloody urine. Skin: The patient denies a history of skin cancer, denies bleeding/changing moles, and denies a history of skin rash. Neurologic: The patient denies a history of epilepsy/convulsions, denies headaches, denies head/spinal injuries, and denies stroke/TIA. Psychiatric: The patient denies psychiatric medications, denies depression, and denies voices, denies substance abuse. Endocrine: The patient denies thyroid disorders, denies diabetes, and denies hormonal problems. Hematologic: The patient denies a history of bruising, denies bleeding, and denies anemia, denies blood clots. Infections: The patient denies a history of measles and mumps, denies rheumatic fever, and denies sexually transmitted diseases. Musculoskeletal: The patient denies back pain/injury, denies back problems, denies sciatica, NOTES knee/foot trouble, NOTES arthritis, or denies gout. Last 2018 Priscila Rose RN documented in this encounterThe [facility]01-15-2023 Miscellaneous Notes* Telephone Encounter - Katelyn Ty [facility] - 05/01/2022 2:42 PM EST Unable to reach patient's daughter Ingris, who's number is in chart to call, just rings and no shredder picker or voicemail. We can try again at a later time. Also patient is scheduled to be in the office later this week 05/06/2022, unable to determine based on the note below and patient's appointment desk what things have been schedule and what still needs scheduled. Katelyn Ty Pss * Telephone Encounter - Joan Kam - 04/22/2022 4:58 PM ESTSummary: AVS 04/22/22 Check out comments: Labs today. MRI Liver when able--patient would like done at [facility]--open MRI. Referral to Dr. Dsouza for EGD/colonoscopy--possible varices. CT guided bone marrow biopsy at [facility] when able. Hold ASA 1 week prior. Referral to hepatology for cirrhosis. Schedule for 10 doses iron sucrose. CBC/CMP/Myeloma labs then OV after completes iron sucrose. documented in this encounterThe [facility]01-07-2023 [facility] History of Present illness Narrative* Kai Alvarado PA-C - 04/23/2022 10:20 AM EST VIRTUAL VISIT FOLLOW UP I had a virtual visit with Mr. Medellin today for follow up of cirrhosis. UPDATED HISTORY: CC: Patient presents with: Cirrhosis HPI: Mr. Medellin is a 82 year old with past medical history of colon polyps, diverticulosis, internal hemorrhoids gastric ulcer , Esophageal reflux, obesity, HLP, aortic valve disorder, polycystic kidney, DEMI on CPAP, thrombocytopenia, splenomegaly, hypertension, presenting today for evaluation of cirrhosis. Patient was last seen by GI ASSISTANT OFFSET PRESS OPERATOR Sandrine Avila September 2020. Here at request of Dr. Yuniel Dahl Daughter present during the visit At last visit: Upon chart review, had an abdominal CT in 2014 with findings of fatty liver but no splenomegaly Most recent RUQ US showed a nodular contour of the liver with splenomegaly and a new hyperechoic nodule in the right lobe of the liver An MRI liver w/wo cont has been ordered but not scheduled Last INR 03/2022 was wnl 1.1 He's had thrombocytopenia since [address] Dahl: He also has macrocytic anemia and thrombocytopenia. Prior reports of splenomegaly. I personally reviewed CT images from 2013 and 2014. In 2014, spleen measured up to about 16 cm in craniocaudal dimension. No mention of fatty liver or other morphologic changes of the liver to suggest cirrhosis. Interval hx: Believes he was told he had liver lesions previously, which were benign. He has never been told he has a fatty liver or cirrhosis until recent testing May be going for bone marrow biopsy Has never had a liver biopsy Does fit the metabolic syndrome No alcohol use now, never a big drinker Has leg swelling, usually progressive as the day goes on, better upon waking, sometimes left swellsmore than right Eating better now with meals on wheels, likes soup and salads Daughter inquiring if he could have hepatic encephalopathy, has memory issues Risk Factors for Liver Disease: 1. Blood transfusions before 1991: yes 2. IVDA: No 3. Intranasal coccaine use: No 4. Tattoos: No 5. 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 High risk sexual behavior: No 7. Alcohol: none in older age, only beer in younger years-occasionally socially 8. Obesity: yes 9. Hyperlipidemia: yes 10. Prolonged exposure to hepatotoxic meds: No 11. Other autoimmune disorders No No daily tylenol OTC: multivitamin, elderberry gummies, vitamin c, vitamin b12 Metabolic Syndrome Risk factors: 08/19 1) Diabetes/ Abnormal FBS >100mg/dL:yes 2) Hypertension : yes 3)Triglycerides more then 150 : yes 4) HDL (<50 female and <40 male): yes 5) Central obesity ( Waist >102 men and >88 female) - Body mass index is 38.89 kg/(m^2). Weight is relatively stable, lost weight around 60 pounds when Appetite is better, on meals on wheels Complications of Cirrhosis: 1. Ascites: No 2. SBP: No 3. Non-bleeding varices: No 4. Variceal hemorrage: No 5. Portosystemic encephalopathy: No 6. Hepatorenal Syndrome: No 7. Hepatopulmonary Syndrome: No 8. Hepatic hydrothorax: No 9. Recurrent Cholangitis (PSC): No Family hx: no cirrhosis, liver cancer Surgical hx: hip replacement Denies current issues with ascites, HE, hematemesis, hematochezia, confusion, dark urine, alvaro colored stool, nausea, vomiting, weight loss, early satiety, bloating, dysphagia, odynophagia, change inbm. Remaining systems reviewed and are negative. MELD-Na score: 7 at 03/22/2022 4:21 PM MELD score: 7 at 03/22/2022 4:21 PM Calculated from: Serum Creatinine: 1.01 mg/dL at 03/22/2022 4:21 PM Serum Sodium: 135 mmol/L at 03/22/2022 4:21 PM Total Bilirubin: 0.5 mg/dL (Using min of 1 mg/dL) at 03/22/2022 4:21 PM INR(ratio): 1.1 at 03/22/2022 4:21 PM Age: 81 years PAST MEDICAL HISTORY Diagnosis Date Adenomatous colon polyp 11/17/2010 Adjustment disorder with depressed mood 06/24/2011 Aortic valve disorders 10/09/2006 stenosis Asthma exacerbation 02/25/2012 Calculus of ureter 03/23/2005 Esophageal reflux 01/28/2011 Essential hypertension 01/28/2005 Impaired renal function 07/30/2009 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 ASSIST ENTEROSCOPY W/ BX 01/14/2011 CAPSULE ENDO SMALL BOWEL W EGD 11/19/2010 COLONOSCOPY FLX DX W/COLLJ SPEC WHEN PFRMD 2000 Colonoscopy COLONOSCOPY FLX DX W/COLLJ SPEC WHEN PFRMD 2003 Colonoscopy COLONOSCOPY FLX DX W/COLLJ SPEC WHEN PFRMD 11/17/2010 Colonoscopy COLONOSCOPY FLX DX W/COLLJ SPEC WHEN PFRMD 10/02/2017 Colonoscopy COLONOSCOPY W/BIOPSY SINGLE/MULTIPLE 05/07/2007 ESOPHAGOGASTRODUODENOSCOPY TRANSORAL DIAGNOSTIC 10/02/2017 EGD ESOPHAGOGASTRODUODENOSCOPY TRANSORAL DIAGNOSTIC 04/08/2019 EGD ESOPHAGOGASTRODUODENOSCOPY TRANSORAL DIAGNOSTIC 05/09/2019 EGD EXCISION PILONIDAL CYST/SINUS SIMPLE 1964 HEMORRHOIDECTOMY INTERNAL RUBBER BAND LIGATIONS 12/29/201712/08 and 12/29/17 OPTX FEM SHFT FX W/INSJ IMED IMPLT W/WO SCREW Left 09/03/2019 L hip cephalo medullary nail. RPLCMT AORTIC VALVE OPN W/STENTLESS TISSUE VALVE 01/18/2011 25-mm Shannan-Fisher pericardial prosthesis via upper ministernotomy. RPR UMBILICAL HRNA 5 YRS/> REDUCIBLE 12/25/2009 Hernia repair, umbilical >5yr FAMILY HISTORY Problem Relation Age of Onset Heart Mother in 70's Coronary Artery Disease Father in his 80's Emphysema Father Diabetes Brother Social History Tobacco Use Smoking status: Never Smokeless tobacco: Never Vaping Use Vaping Use: Never used Substance Use Topics Alcohol use: No Drug use: No Current Outpatient Medications Medication Sig Dispense Refill iv contrast (will be provided with radiology test) MRI Liver Inject, intravenously, once for 1 dose. No IV access, insert saline lock prior to the beginning of sedation, infusion, injection of imaging exam. Discontinue saline lock post exam. If Pt. has a central line or IVAD, may access for administration according to line specific nursing protocol. Once exam is complete flush line and de-access according to line specific nursing protocol in the MR contrast administration guidelines link. 1 Each 0 ascorbic acid-elderberry fruit 100-50 mg chew Take 2 tablets by mouth once daily. cyanocobalamin (VITAMIN B-12) 2,500 mcg tablet Take 2,500 mcg by mouth once daily. melatonin 10 mg tab Take 1 tablet by mouth as needed. aspirin, enteric coated (ASPIRIN, ENTERIC COATED) 81 mg EC tablet Take 81 mg by mouth once daily. albuterol HFA (PROVENTIL HFA, VENTOLIN HFA) 90 mcg/actuation inhaler Inhale 2 Puffs as instructed every 4 hours as needed for wheezing/shortness of breath. omeprazole (PRILOSEC) 40 mg capsule Take 1 capsule by mouth once daily. 90 capsule 3 allopurinol (ZYLOPRIM) 300 mg tablet Take 1 tablet by mouth once daily. 90 tablet 3 magnesium oxide 400 mg magnesium cap Take 1 capsule by mouth once daily. 90 capsule 3 fenofibrate nanocrystallized (TRICOR) 48 mg tablet Take 1 tablet by mouth once daily. 90 tablet 3 sertraline (ZOLOFT) 50 mg tablet Take 1 tablet by mouth once daily. 90 tablet 3 nitroglycerin sublingual (NITROQUICK) 0.4 mg SL tablet Dissolve 1 tablet under the tongue every 5 minutes as needed for chest pain. FOR CHEST PAIN. IF NO RELIEF CALL 911 25 tablet 1 fluticasone (FLONASE) 50 mcg/actuation nasal spray Use 1 Sewell in each nostril once daily. 3 Each 3 ferrous sulfate 325 mg (65 mg iron) EC tablet Take 1 tablet by mouth twice daily with meals. (Patient taking differently: Take 325 mg by mouth once daily.) 180 tablet 1 oxybutynin ER (DITROPAN XL) 15 mg 24 hr Extended Rel Tab Take 2 tablets by mouth once daily. 180 tablet 3 amoxicillin (POLYMOX, AMOXIL) 500 mg capsule Take four tablets, one hour prior to dental work (Patient taking differently: Take four tablets by mouth , one hour prior to dental work) 4 capsule 1 betamethasone valerate 0.1 % lotion Apply to affected area twice daily. 60 mL 0 fluticasone-vilanterol (BREO ELLIPTA) 200-25 mcg/dose inhaler Inhale 1 Inhalation as instructed once daily. Inhale one puff once daily. DO NOT CLICK OPEN UNTIL READY FOR DOSE 0 multivitamin tablet Take 1 tablet by mouth once daily. 0 No current facility-administered medications for this visit. ALLERGIES Allergen Reactions Bees Anaphylaxis Acetaminophen Other: See Comments Hydrocodone GI Upset Lipitor [Atorvastat* Itching Singulair [[place]* Itching Strawberries Hives hives REVIEW OF SYSTEMS: PAIN ASSESSMENT: Negative for pain, history of chronic pain, or current treatment for a chronic pain condition. GENERAL: No weight loss, malaise or fevers RESPIRATORY: Negative for cough, hemoptysis, wheezing, COPD, dyspnea or shortness of breath CARDIOVASCULAR: Negative for chest pain, leg swelling, CHF or palpitations GI: No nausea, vomiting, or diarrhea : Not reviewed RESTAURANT RECRUITER: Not reviewed PHYSICAL FINDINGS OF NOTE: General - Normal, healthy, cooperative, in no acute distress Able to interact verbally by video conference Psych - ORIENTATION: normal to time place, person and situation Mood/Affect: AFFECT AND MOOD: Normal Head/Neuro - Normal size and shape Facial appearance normal Pulmonary - respiratory effort normal Cardiovascular - patient describes extremities normal and warm Abdominal - Not performed Skin - abnormal lesions not visualized Motor - patient seen sitting with Normal appearing strength and coordination REVIEWED ITEMS RUQ US 03/2022: IMPRESSION: 1. There is a new hyperechoic nodule in the right lobe of the liver which could be further evaluated by MRI 2. Nodular contour of the liver which may be due to cirrhosis 3. Splenomegaly EGD 04/2019 Findings: The examined jejunum was normal. The examined duodenum was normal. Localized moderate inflammation characterized by erosions, erythema and friability was found in the gastric antrum. Biopsies were taken with a cold forceps for histology. A medium-sized hiatal hernia was present. Non-severe esophagitis with no bleeding was found. Impression: - Normal examined jejunum. - Normal examined duodenum. - Gastritis. Biopsied. - Medium-sized hiatal hernia. - Non-severe reflux esophagitis. Recommendation: - Discharge patient to home. - Resume previous diet. - Continue present medications. - Return to physician data analysis assistant in 1 week. Colonoscopy September 2017: Findings: Four sessile polyps were found in the transverse colon. The polyps were 6 to 9 mm in size. These polyps were removed with a cold snare. Resection and retrieval were complete. Estimated blood loss was minimal. To prevent bleeding post-intervention, two hemostatic clips were successfully placed. Impression: - Four 6 to 9 mm polyps in the transverse colon, removed with a cold snare. Resected and retrieved. Clips were placed. Recommendation: - Discharge patient to home. - Written discharge instructions were provided to the patient. - Resume previous diet. - Await pathology results. - Repeat colonoscopy in 3 years for surveillance. - Patient has a contact number available for emergencies. The signs and symptoms of potential delayed complications were discussed with the patient. Return to normal activities tomorrow. Written discharge instructions were provided to the patient. IMPRESSION Mr. Medellin is a 82 year old with past medical history of colon polyps, diverticulosis, internal hemorrhoids gastric ulcer , Esophageal reflux, obesity, HLP, aortic valve disorder, polycystic kidney, DEMI on CPAP, thrombocytopenia, splenomegaly, hypertension, presenting today for evaluation of cirrhosis. Noted to have a cirrhotic appearing liver on recent RUQ US, has had thrombocytopenia for years,will be undergoing bone marrow biopsy. He fits the metabolic syndrome, placing him at risk for MERCHANT/NAFLD with progression to cirrhosis. Discussed definitive diagnosis involves a transjugular liver biopsy but he agreed to defer such an invasive procedure. Will monitor him as if he has cirrhosis so as to stay on top of potential complications, of which he has none at present, leg swelling is likely cardiac in nature. Discussed pathophysiology of cirrhosis along with signs of decompensation. RECOMMENDATION: MELD labs with chronic liver dx panel Liver lesion/HCC Screen: MRI liver w/wo cont now (may need general anesthesia at [facility] vs lorazepam 1 hour before MRI, will prescribe if needed, once scheduled). Discussed HCC Screening needed every 6 months Portal HTN/EV screen: EGD now, has upcoming apt to discuss EGD/colonoscopy, will let me know results of that visit and I will prescribe EGD if needed, may need variceal banding HE: none, discussed trial of lactulose for goal of ~3bm daily, will let me know if interested LE edema/ Ascites: none, diuretics as prescribed. Discussed <2,000 mg sodium diet Continue abstinence from alcohol, no issue for him Screening colonoscopy: to be discussed at upcoming visit HCM/Immunizations: check immunity for HAV/HBV And vaccine if needed Metabolic syndrome: tight control essential, to be monitored/treated by PCP. Weight loss 5-10% bodyweight helpful. Mediterranean diet/increased cardiovascular exercise with goal >45 minutes 5 days weekly Avoid liver detox cleanse/supplements Not to exceed 2,000 mg tylenol daily Follow up once blood work, EGD and liver MRI are completed, can be virtual. I spent a total of 45 minutes on the date of the service which included preparing to see the patient, [id number] patient care, completing clinical documentation, obtaining and/or reviewing separately obtained history, performing a medically appropriate examination, counseling and educating the pat ient/family/caregiver, ordering medications, tests, or procedures, communicating with other HCPs (not separately reported), and communicating results to the patient/family/caregiver. Kai Alvarado PA-C April 23, 2022 11:17 AM documented in this encounterThe [facility] History of Present illness Narrative* Mimi Castano RDMS - 03/25/2022 9:15 AM EST Radiology Service Progress Note PATIENT NAME: Satya Medellin DATE OF SERVICE: March 25, 2022 TIME: 10:00 AM PATIENT IDENTITY VERIFICATION COMPLETED USING TWO (2) IDENTIFIERS: Name and Date of confirmedby patient verbally. FALL SCREENING: Has the patient had 2 falls in the last year or 1 fall with injury or currently using an Ambulatory Assistive Device (Walker, Cane, Wheelchair, Crutches, etc.)? Yes, Patient High Riskfor Falls What interventions were put in place to prevent falls during this visit? Instructed Patient to Callfor Help if Needed, Offered Assistance with Transfers/Clothing, Instructed Patient to Remain Seated(Not on Exam Table) Until Exam, and Increased Observations by Caregivers PATIENT GENDER DATA: Male PATIENT RELEVANT IMPLANT DATA REVIEWED: Not Applicable RADIOLOGY DEPARTMENT: Ultrasound PERIPHERAL IV DATA: Not applicable SIGNED BY: Mimi Castano RDMS RVT March 25, 2022 10:00 AM documented in this encounterThe [facility]12-06-2022 [facility]12-[facility]12-[facility] History of Present illness Narrative* Yuniel Dahl, - 03/22/2022 3:17 PM EST Patient referred by GAIL Tellez for anemia. The impression and plan will be communicated by way of the shared electronic record or faxed under separate cover letter. HPI: The patient is an 81 yo male with a PMH significant for HTN, polycystic kidney disease (seeingnephrology for ~15 years), HLD, aortic repair (bovine valve), CAD, DEMI (CPAP), asthma, hypercalcemia, splenomegaly (noted on CT chest 12/2013; spleen up to 18.4 cm in AP dimension; not enlarged on CT enterography 2014) and obesity. 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 Protein electrophoresis of the urine demonstrated no evidence of monoclonal spike. Urine protein creatinine ratio was elevated. Chemistry panel showed a creatinine of 1.33 mg/dL. Calcium mildly elevated 10.6 mg/dL. Vitamin D39.7 PTH 93.4 CBC significant for a total white count of 4900. No differential performed. Hemoglobin 9.0 g/dL. MCV 109. Platelet count 79,000. Protein electrophoresis of the serum revealed a M spike but no immunofixation was performed. 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 Worse over time. He's never been given an answer as to why. Balance is off and he uses wheeled walker. Lives alone in [place]. Has [facility] health aides for cleaning and [facility]. Daughter lives close by and he gets meals on wheels. Was having left posterior hip pain and got relief with Absorsene Jr. 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 ASSIST ENTEROSCOPY W/ BX 01/14/2011 CAPSULE ENDO SMALL BOWEL W EGD 11/19/2010 COLONOSCOPY FLX DX W/COLLJ SPEC WHEN PFRMD 2000 Colonoscopy COLONOSCOPY FLX DX W/COLLJ SPEC WHEN PFRMD 2003 Colonoscopy COLONOSCOPY FLX DX W/COLLJ SPEC WHEN PFRMD 11/17/2010 Colonoscopy COLONOSCOPY FLX DX W/COLLJ SPEC WHEN PFRMD 10/02/2017 Colonoscopy COLONOSCOPY W/BIOPSY SINGLE/MULTIPLE 05/07/2007 ESOPHAGOGASTRODUODENOSCOPY TRANSORAL DIAGNOSTIC 10/02/2017 EGD ESOPHAGOGASTRODUODENOSCOPY TRANSORAL DIAGNOSTIC 04/08/2019 EGD ESOPHAGOGASTRODUODENOSCOPY TRANSORAL DIAGNOSTIC 05/09/2019 EGD EXCISION PILONIDAL CYST/SINUS SIMPLE 1964 HEMORRHOIDECTOMY INTERNAL RUBBER BAND LIGATIONS 12/29/201712/08 and 12/29/17 OPTX FEM SHFT FX W/INSJ IMED IMPLT W/WO SCREW Left 09/03/2019 L hip cephalo medullary nail. RPLCMT AORTIC VALVE OPN W/STENTLESS TISSUE VALVE 01/18/2011 25-mm Shannan-Fisher pericardial prosthesis via upper ministernotomy. RPR UMBILICAL HRNA 5 YRS/> REDUCIBLE 12/25/2009 Hernia repair, umbilical >5yr ALLERGIES Allergen Reactions Bees Anaphylaxis Acetaminophen Other: See Comments Hydrocodone GI Upset Lipitor [Atorvastat* Itching Singulair [[place]* Itching Strawberries Hives hives Current Outpatient Medications Medication Sig ascorbic acid-elderberry fruit 100-50 mg chew Take 2 tablets by mouth once daily. cyanocobalamin (VITAMIN B-12) 2,500 mcg tablet Take 2,500 mcg by mouth once daily. melatonin 10 mg tab Take 1 tablet by mouth as needed. aspirin, enteric coated (ASPIRIN, ENTERIC COATED) 81 mg EC tablet Take 81 mg by mouth once daily. albuterol HFA (PROVENTIL HFA, VENTOLIN HFA) 90 mcg/actuation inhaler Inhale 2 Puffs as instructed every 4 hours as needed for wheezing/shortness of breath. omeprazole (PRILOSEC) 40 mg capsule Take 1 capsule by mouth once daily. allopurinol (ZYLOPRIM) 300 mg tablet Take 1 tablet by mouth once daily. magnesium oxide 400 mg magnesium cap Take 1 capsule by mouth once daily. fenofibrate nanocrystallized (TRICOR) 48 mg tablet Take 1 tablet by mouth once daily. sertraline (ZOLOFT) 50 mg tablet Take 1 tablet by mouth once daily. nitroglycerin sublingual (NITROQUICK) 0.4 mg SL tablet Dissolve 1 tablet under the tongue every 5 minutes as needed for chest pain. FOR CHEST PAIN. IF NO RELIEF CALL 911 fluticasone (FLONASE) 50 mcg/actuation nasal spray Use 1 [place] in each nostril once daily. ferrous sulfate 325 mg (65 mg iron) EC tablet Take 1 tablet by mouth twice daily with meals. oxybutynin ER (DITROPAN XL) 15 mg 24 hr Extended Rel Tab Take 2 tablets by mouth once daily. amoxicillin (POLYMOX, AMOXIL) 500 mg capsule Take four tablets, one hour prior to dental work (Patient taking differently: Take four tablets by mouth , one hour prior to dental work) fluticasone-vilanterol (BREO ELLIPTA) 200-25 mcg/dose inhaler Inhale 1 Inhalation as instructed once daily. Inhale one puff once daily. DO NOT CLICK OPEN UNTIL READY FOR DOSE multivitamin tablet Take 1 tablet by mouth once daily. betamethasone valerate 0.1 % lotion Apply to affected area twice daily. No current facility-administered medications for this visit. Social History Tobacco Use Smoking status: Never Smokeless tobacco: Never Substance Use Topics Alcohol use: No Drug use: No ROS: Constitutional: Denies episodes of fever and night sweats. Neuro: See above. Believes he may have recently had a stroke. He has mild left hemiparesis. HEENT: No recent change in voice, vision or hearing. Resp: Denies cough, wheeze and hemoptysis. Denies shortness of breath at rest. CVS: Denies exertional chest pain, PND, orthopnea. Chronic bilateral lower extremity swelling. GI: No abdominal pain. Bowels move twice a day. Formed stools. Black from iron. No blood observed.. : Denies dysuria or gross hematuria. Endo: Denies hot flashes. Denies polyuria and polydipsia. Denies heat and cold intolerance. Musculoskeletal: No musculoskeletal pain other than left hip pain as outlined above. Derm: Denies rash. Denies jaundice and diffuse pruritis. Heme: Denies unusual bleeding and unexplained bruising. Psych: Normal mood. PHYSICAL EXAM: Vitals: Blood pressure 134/81, pulse 93, temperature 36.7 C (98 F), temperature source Temporal, weight 110.9 kg (244 lb 8 oz). Well-appearing and in no acute distress. EYES: Sclerae are anicteric bilaterally. ENT: Oral mucosa is unremarkable. There is no sign of thrush or mucositis. LYMPHATIC: There is no palpable cervical, supraclavicular or axillary adenopathy. RESPIRATORY: Inspiratory breath sounds are of normal intensity in all ayala. No rales, wheezes or rhonchi. CARDIOVASCULAR: Rhythm is regular. ABDOMEN: The abdomen is nondistended. No organomegaly. No tenderness. Extremities: Bilateral lower extremity swelling. Right somewhat worse than left. Overlying pitting. SKIN: No jaundice. NEUROLOGIC: sizing sponger II-XII are grossly intact. He is not able to step up on the exam table on his own. Needs at least a 1 person assist. May have some mild left leg weakness but due to his general overall weakness difficult to get a good neurologic exam. ASSESSMENT/PLAN: (D47.2) Monoclonal gammopathy (primary encounter diagnosis) (D53.9) Macrocytic anemia (D69.6) Thrombocytopenia (HCC) Assessment: -The patient is an 81-year-old male with a past medical history as outlined above. He has no history of diabetes but has longstanding worsening sensory neuropathy of the feet and left hand. He has polycystic kidney disease as well as chronic mild hypercalcemia with elevation of PTH and stable serumcreatinine over time. Recently found to have possible serum monoclonal antibody on electrophoresis of the serum. Urine negative for monoclonal protein on electrophoresis. -He also has macrocytic anemia and thrombocytopenia. Prior reports of splenomegaly. I personally reviewed CT images from 2013 and 2014. In 2014, spleen measured up to about 16 cm in craniocaudal dimension. No mention of fatty liver or other morphologic changes of the liver to suggest cirrhosis. -I discussed the broad differential of the anemia and thrombocytopenia with the patient and his daughter. We also discussed the spectrum of plasma cell disorders and the further work-up indicated to accurately diagnose. Plan: -CBC with staff review. -Assess TSH, B12, RBC folate, serum copper and cold agglutinins. -Assess serum viscosity. -Ultrasound liver and spleen. -Repeat protein electrophoresis of serum including immunofixation. -24-hour urine collection for protein electrophoresis and immunofixation. -Check iron studies in light of his chronic kidney disease. -Check coagulation times and fibrinogen rule out low-level DIC is a potential cause of thrombocytopenia. -OV after above resulted. -May need EMG/NCV as part of the work-up depending on results above. I spent a total of 75 minutes on the date of the service which included preparing to see the patient, [id number] patient care, completing clinical documentation, obtaining and/or reviewing separately obtained history, performing a medically appropriate examination, counseling and educating the pat ient/family/caregiver, ordering medications, tests, or procedures, communicating with other HCPs (not separately reported), independently interpreting results (not separately reported), communicatingresults to the patient/family/caregiver, and care coordination (not separately reported). Yuniel Dahl DO documented in this encounterThe [facility]11-21-2022 Miscellaneous Notes* Telephone Encounter - Estelita Baig LPN - 03/07/2022 10:01 AM EST pcp reviewed the rehabilitation and sport therapy note pt was seen there for driving assessment. Pcp signed form. This has been fax[facility] back to [facility] at [phone] documented in this encounterThe [facility]11-14-2022 NoteHNO ID: [id number] Author: Radha Barker OT/L Service: ? Author Type: Occupational Therapist Type: Progress Notes Filed: 03/04/2022 3:31 PM Note Text: Episode Visit Count: 1 Start of Care Date: 02/28/22 Onset Date: (R CVA suspected per recent neurologist visit while MRI ordered; diagnosis also of peripheral polyneuropathy) Patient Identified by Name and Date of : Yes REHABILITATION AND SPORTS THERAPY OCCUPATIONAL THERAPY INSTRUMENTAL ADL AND COMMUNITY MOBILITY EVALUATION SUBJECTIVE: Satya Medellin is a 81 year old male seen today for OT functional mobility assessment due to diagnosis of peripheral polyneuropathy while also suspected R CVA. His daughter was with him and provided helpful information throughout. She shared that he has taken some significant falls earlier this year and that he had aide assist for some time but increased it to 4 days/week after his fall in November outside then again 1 week later. More recent fall 3 weeks ago while at high risk for falling. She shared that his December of 2019 so he has been living on his own since they but she has increased her involvement and support in the time since. Functional Limitations: walking in the community;walking;bending;heavy exertion;stair negotiation;driving Prior Level of Function: Required assistance Home Environment Patient Lives With: Self/Alone Assistance Available: Part-Time;Deputy Probation Officer (daughter involved living around the corner from patient and seeing him/checking in frequently) Home Type: Multi-Level Transportation: Travels as a passenger;SUV Patient Goals: to return to driving Intake Information: Prescription present Falls Interview: Two or more falls in the last year Relevant History Past Relevant Medical Conditions: Arthritis;Cerebral Vascular Accident;Falls;Hypertension;Depression;Neuropathy Highest Level of Education: Trade School Preferred Language: Rwandan Right or Left Handed: Right 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) Recreation / Current Exercise: no current exercise Hobbies / Interests: reads devotionals and cookbooks; rather sedentary Home Environment Patient Lives With: Self/Alone Assistance Available: Part-Time;Deputy Probation Officer (daughter involved living around the corner from patient and seeing him/checking in frequently) Home Type: Multi-Level Transportation: Travels as a passenger;SUV Activities of Daily Living: Modified Independent and supervision for showering Instrumental Activities of Daily Living: assist for most tasks in the home while some light meal preparation on his own; does take his own medication but his daughter sets up as well as manages the finances which she has been doing since his Driving History: 66 years 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 Violation HX: no 5 Yr. MVA HX: no Handicap Parking Placard: YES 1. Satya Medellin self report indicates an awareness of: Weakness, incoordination, or limited motion in L arm and B legs Decreased balance Tingling or Numbness in: B hands and feet Forgetting new information 2. Satya Medellin expressed confidence regarding driving when driving alone and on familiar road ways. 3. Satya Medellin expressed concerns regarding driving at night/decreased light conditions, in congested traffic, on the interstate, and on long trips. OBJECTIVE MEASURES WITH LEVEL OF FUNCTION: SENSORIMOTOR ASSESSMENT: Hand dominance: Right Level of Function Relevant to I ADL, Community Mobility, and Driving: Right UE: Sufficient Left UE: Marginal while significant contractures/tone in L hand Supportability Engineer: functional for R hand while decreased for L hand Right LE: Marginal Left LE: Sufficient Sitting Balance: Sufficient Head / Neck: decreased neck ROM including rotation to right Ambulation: Insufficient while requires rollator to maximize safety with repeated history of falls in last several months with increased vulnerability if out in the community on own Transfers: Marginal Loading of Device: NA while did not observe him trying to fold/stow his rollator while decreased balance issues ASSESSMENT OF SENSORIMOTOR FUNCTION: Marginal for Driving VISION SCREENING: Vision Vision Deficits: Wears corrective lenses Corrective lenses: bifocals with correction for close up only; does not wear always; has had B cataract surgery in past; reports having floaters in both eyes Corrective Lenses: Wears glasses / contact lenses for driving Distant Acuity: Binocular: 20 / 40 Nighttime Glare: Right: 20 / 40-1 Left: 20 / 50-1 Color Perception: pass Depth Perception: Pass Contrast Sensitivity: mini (more content not included)...[facility] 02-28-2022 History of Present illness Narrative* Radha Barker OT/Mary Jo - 02/28/2022 4:50 PM EST Episode Visit Count: 1 Start of Care Date: 02/28/22 Onset Date: (R CVA suspected per recent neurologist visit while MRI ordered; diagnosis also of peripheral polyneuropathy) Patient Identified by Name and Date of : Yes REHABILITATION AND SPORTS THERAPY OCCUPATIONAL THERAPY INSTRUMENTAL ADL AND COMMUNITY MOBILITY EVALUATION SUBJECTIVE: Satya Medellin is a 81 year old male seen today for OT functional mobility assessmentdue to diagnosis of peripheral polyneuropathy while also suspected R CVA. His daughter was with himand provided helpful information throughout. She shared that he has taken some significant falls earlier this year and that he had aide assist for some time but increased it to 4 days/week after his fall in November outside then again 1 week later. More recent fall 3 weeks ago while at high risk for falling. She shared that his December of 2019 so he has been living on his own since they but she has increased her involvement and support in the time since. Functional Limitations: walking in the community;walking;bending;heavy exertion;stair negotiation;driving Prior Level of Function: Required assistance Home Environment Patient Lives With: Self/Alone Assistance Available: Part-Time;Deputy Probation Officer (daughter involved living around the corner from patient and seeing him/checking in frequently) Home Type: Multi-Level Transportation: Travels as a passenger;SUV Patient Goals: to return to driving Intake Information: Prescription present Falls Interview: Two or more falls in the last year Relevant History Past Relevant Medical Conditions: Arthritis;Cerebral Vascular Accident;Falls;Hypertension;Depression;Neuropathy Highest Level of Education: Trade School Preferred Language: Rw[place]an Right or Left Handed: Right 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) Recreation / Current Exercise: no current exercise Hobbies / Interests: reads devotionals and cookbooks; rather sedentary Home Environment Patient Lives With: Self/Alone Assistance Available: Part-Time;Deputy Probation Officer (daughter involved living around the corner from patient and seeing him/checking in frequently) Home Type: Multi-Level Transportation: Travels as a passenger;SUV Activities of Daily Living: Modified Independent and supervision for showering Instrumental Activities of Daily Living: assist for most tasks in the home while some light meal preparation on his own; does take his own medication but his daughter sets up as well as manages the finances which she has been doing since his 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 Violation HX: no 5 Yr. MVA HX: no Handicap Parking Placard: YES 1. Satya Medellin self report indicates an awareness of: Weakness, incoordination, or limited motion in L arm and B legs Decreased balance Tingling or Numbness in: B hands and feet Forgetting new information 2. Satya Medellin expressed confidence regarding driving when driving alone and on familiar road ways. 3. Satya Medellin expressed concerns regarding driving at night/decreased light conditions, in congested traffic, on the interstate, and on long trips. OBJECTIVE MEASURES WITH LEVEL OF FUNCTION: SENSORIMOTOR ASSESSMENT: Hand dominance: Right Level of Function Relevant to I ADL, Community Mobility, and Driving: Right UE: Sufficient Left UE: Marginal while significant contractures/tone in L hand Supportability Engineer: functional for R hand while decreased for L hand Right LE: Marginal Left LE: Sufficient Sitting Balance: Sufficient Head / Neck: decreased neck ROM including rotation to right Ambulation: Insufficient while requires rollator to maximize safety with repeated history of falls in last several months with increased vulnerability if out in the community on own Transfers: Marginal Loading of Device: NA while did not observe him trying to fold/stow his rollator while decreased balance issues ASSESSMENT OF SENSORIMOTOR FUNCTION: Marginal for Driving VISION SCREENING: Vision Vision Deficits: Wears corrective lenses Corrective lenses: bifocals with correction for close up only; does not wear always; has had B cataract surgery in past; reports having floaters in both eyes Corrective Lenses: Wears glasses / contact lenses for driving Distant Acuity: Binocular: 20 / 40 Nighttime Glare: Right: 20 / 40-1 Left: 20 / 50-1 Color Perception: pass Depth Perception: Pass Contrast Sensitivity: minimal decrease for R eye while severe impairment for L eye Peripheral Vision: Not sufficient for driving Right Eye: Failed to recognize stimuli: 35 degrees nasally, 55 degrees, 70 degrees, and 85 degrees Left Eye: Failed to recognize stimuli: 70 degrees and 85 degrees Pursuits: Inaccurate / Overshoots Saccades: Inaccurate / Overshoots Convergence: WFL Nystagmus: Not Apparent Diplopia: No complaints Strabismus: No OU Cataracts: No OU Glaucoma: No. OU Other Eye Conditions / Diseases Reported: reports having floaters in B eyes ASSESSMENT OF VISUAL FUNCTION: Not Suggestive of Safe Driving Potential COGNITIVE / PERCEPTUAL ASSESSMENT: SHORT BLESSED TEST Short Blessed Test 1. What Year Is It Now?: Correct 2. What Month Is It Now?: Correct 3. What Time is it? (WIthin 1 hour): Correct 4. Count Aloud Backwards 20 to 1 (Errors): 0 5. Months of the Year in Reverse Order (Errors): 2 6. Memory Phrase (Errors) : 5 Short Blessed Final Score: 14 Short Blessed Test Scorin-8; Normal to minimal impairment 9-19; Moderate impairment 20-28; Severe impairment [email or web address] Immediate Recall: WFL @ 5/6 digits Visual Scanning/Attention: [place] Making Part B (sec): 319 sec 50th percentile norm for age group: 70-79; Part A: 80 seconds, Part B: 196 seconds Jono Clock Drawing Test: Satya Plummer Lacie correctly included 2/8 criteria for this test. He failed to include or correctly place: all 12 hours in correct numeric order, starting with 12 at the top only the numbers 1-12 (no duplicates, omissions, or foreign markings) the numbers equally, or nearly so, from each other the numbers equally spaced, or nearly so, from the edge of the crow one clock hand at the two o'clock position only two clock hands According to The Physician's Guide to Assessing and Counseling Older Drivers, 2003, any incorrect element in the Jono Clock Scoring signals a need for intervention. Motor Free Visual Perception Test: MVPT Total Score: 25 MVPT Processing time (seconds): 10.1 Norms: 70-80 y/o: Raw Score 25-35; Processing Time 4.5-7.1 seconds +/- .5 seconds Visual Inattention / Unilateral Neglect: Not Apparent ASSESSMENT OF COGNITIVE / PERCEPTUAL FUNCTION: Not Suggestive of Safe Driving Potential Gurvinder Loader Demolder Simulator: Simple Brake Reaction Time: Average Distance: 67 feet (Normal = 60 feet) R foot pedal operation method; was provided with instructions and time for practice prior to screening Education: Education Learning Preferences: Explanation Barriers: Cognitive Limitations;Hearing Deficit Learning/educational needs: Safety;Plan of Care Education Provided: Yes, see treatment interventions for education provided Education Provided To: Patient;Family (daughter) Education Mode/Type: Explanation/Discussion Response to Education/Teach Back: States/Identifies TREATMENT: Evaluation Self-Long-Term Management: 1: refer to documentation for details 2: provided education and support to patient and his daughter Skilled Intervention: Skilled judgment in the selection of proper modification for activity of daily living/home management based on clinical presentation, deficits, and needs. Educated the patient regarding recommendations and provided written instruction to facilitate compliance. Reviewed patient specific diagnosis in relation to activities of daily living/home management. Activity progression based on professional judgement. PLAN OF CARE: SUMMARY AND RECOMMENDATIONS *The information in this report indicates the ability of the corporate driver to operate a motor vehicle on this date only. Due to the complex nature of the safe operation of a motor vehicle, and considering the demands of integrating changing environmental conditions, and visual, cognitive, and physical skills, successful completion of this program is not a guarantee of safe driving in the future. ASSESSMENT OF INSTRUMENTAL ADL AND COMMUNITY MOBILITY: Satya Medellin presents with the diagnosisof peripheral polyneuropathy as well as suspected of R CVA. He presents with impairments of overshooting with oculomotor skills, history of significant falls/significant fall risk, decreased neck ROM, required aide assist for ADL/IADL's, decreased L eye glare far acuity/contrast sensitivity/DOES NOT MEET THE VISUAL FIELD SCREENING REQUIREMENTS FOR [facility] FOR DRIVING, CLOCK DRAWING SCORE, PERFORMANCE ON VISUAL PERCEPTUAL SCREENING INCLUDING FOR RAW SCORE AND SLOWED VISUAL PROCESSING SPEED, DECREASED CONCENTRATION AND RECALL MEMORY, MARKED IMPAIRMENT ON ALTERNATING ATTENTION TASK. RECOMMENDATIONS: ADL/IADL Recommendations: ongoing assist for self care and home management as needed while aides currently coming in 4 days/week Driving Recommendations: REFRAIN FROM DRIVING WHILE PERMANENT CESSATION/SENIOR LIVING FROM DRIVING INDICATED. THIS THERAPIST WILL PROVIDE PHYSICIAN WITH [facility] REPORTING INFORMATION SO THAT LICENSE SUSPENSION PROCESS CAN BE INITIATED Bradshaw's Visual Field Exam Requested: Yes Recommended Complete Eye Exam: Yes Planned Interventions, Frequency, and Duration: Current Frequency: 1 visit Duration: 1 visit Total Number of Visits Planned: 0 Patient demonstrates fair understanding of plan of care and treatment. The above results were discussed and agreed upon by patient/family. Billing: Total Treatment Time Minutes (timed/untimed) 135 minutes Evaluation - Moderate Complexity (90486) Self Care / Home Management (03010): 1:1 time: 75 minutes (5 units: 68-82 mins) Total time: 135 minutes RONY Elise, CDRS, CDI Certified Loader [employer] Transport Driver documented in this encounterThe [facility]11-07-2022 Miscellaneous Notes* Telephone Encounter - Ama Masters - 02/21/2022 11:43 AM EST Patient scheduled 02/23 * Telephone Encounter - Ama Masters - 02/21/2022 11:23 AM EST Spoke to patient. He is going to talk to his daughter to see when she can bring him. Patient does not drive anymore. Patient or daughter will call back. Call back number provided. * Telephone Encounter - Radha Lackey - 02/21/2022 10:23 AM EST Referral faxed to [facility]. Radha Lackey * Telephone Encounter - Radha Lackey - 02/18/2022 11:41 AM EDT New Patient referral received and given to Dr. Khan for review. DX: ABNORMAL ELECTROPHORESIS/LOW HEMOGLOBIN REF PROV: SERA CARRENO INS: MEDICARE A & B/MMO SUPPLEMENT Radha Ziyad documented in this [facility]11-03-2022 Miscellaneous Notes* Telephone Encounter - Ingrid Dacosta RN - 02/17/2022 8:49 AM EDT Pts daughter called and is notified of providers message and instructions. She voices understanding. Ingrid Dacosta RN * Telephone Encounter - Ricky Bradley MD - 02/16/2022 6:16 PM EDT Noted carvedilol discontinued. Continue to monitor BP and call nephrology or here for concerns. * Telephone Encounter - Teresa Pratt Pss - 02/16/2022 1:05 PM EDT Daughter Ingris is calling in regards to patient seeing kidney doctor Dr Sera Carreno at [facility] yesterday. She states BP was 102/70 but hemoglobin was at 9. Provider reduced Carvedilol medication to 6.25 mg. Also told him to take Blood Pressure reading in the morning before any medication. If top number is under 130 to call her office. This morning BP was 106/60. Ingris thencalled Dr Carreno office and patient was then advised to stop the Carvedilol. Advised Ingris to call Dr Carreno office to have lab results fax to our office. documented in this [facility]10-17-2022 Instructions* Patient Instructions* Ricky Bradley MD - 01/31/2022 2:53 PM EDT DISCONTINUE LISINOPRIL. documented in this encounterThe [facility]10-17-2022 History of Present illness Narrative* Ricky Bradley MD - 01/31/2022 2:34 PM EDT This note was created using [employer]. Subjective Satya Medellin is a 81 year old male here with daughter. He fell again and was in the ER 12/08 forhead injury. He was scheduled with neurology. His hypertension was still well controlled on one half dose of lisinopril. He was scheduled to see his it security manager in 2 weeks. Daughter was concerned about his ability to drive safely. We discussed options and he felt stronglythat he could still drive safely with left leg weakness. He agreed to a driving evaluation. Review of Systems Constitutional: Negative. Respiratory: Negative. Cardiovascular: Negative. Gastrointestinal: Negative. Musculoskeletal: Positive for gait problem. Neurological: Positive for weakness. Negative for dizziness, light-headedness and headaches. 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 cyanocobalamin (VITAMIN B-12) 2,500 mcg tablet Take 2,500 mcg by mouth once daily. melatonin 10 mg tab Take 1 tablet by mouth as needed. aspirin, enteric coated (ASPIRIN, ENTERIC COATED) 81 mg EC tablet Take 81 mg by mouth once daily. albuterol HFA (PROVENTIL HFA, VENTOLIN HFA) 90 mcg/actuation inhaler Inhale 2 Puffs as instructed every 4 hours as needed for wheezing/shortness of breath. lisinopril (ZESTRIL) 40 mg tablet Take 0.5 tablets by mouth once daily. ONE HALF TABLET DAILY. omeprazole (PRILOSEC) 40 mg capsule Take 1 capsule by mouth once daily. carvedilol (COREG) 12.5 mg tablet Take 1 tablet by mouth twice daily with meals. allopurinol (ZYLOPRIM) 300 mg tablet Take 1 tablet by mouth once daily. magnesium oxide 400 mg magnesium cap Take 1 capsule by mouth once daily. fenofibrate nanocrystallized (TRICOR) 48 mg tablet Take 1 tablet by mouth once daily. sertraline (ZOLOFT) 50 mg tablet Take 1 tablet by mouth once daily. nitroglycerin sublingual (NITROQUICK) 0.4 mg SL tablet Dissolve 1 tablet under the tongue every 5 minutes as needed for chest pain. FOR CHEST PAIN. IF NO RELIEF CALL 911 fluticasone (FLONASE) 50 mcg/actuation nasal spray Use 1 [place] in each nostril once daily. ferrous sulfate 325 mg (65 mg iron) EC tablet Take 1 tablet by mouth twice daily with meals. oxybutynin ER (DITROPAN XL) 15 mg 24 hr Extended Rel Tab Take 2 tablets by mouth once daily. amoxicillin (POLYMOX, AMOXIL) 500 mg capsule Take four tablets, one hour prior to dental work (Patient taking differently: Take four tablets by mouth , one hour prior to dental work) betamethasone valerate 0.1 % lotion Apply to affected area twice daily. fluticasone-vilanterol (BREO ELLIPTA) 200-25 mcg/dose inhaler Inhale 1 Inhalation as instructed once daily. Inhale one puff once daily. DO NOT CLICK OPEN UNTIL READY FOR DOSE multivitamin tablet Take 1 tablet by mouth once daily. No current facility-administered medications for this visit. Objective BP 108/56 (BP Site: Right Arm, BP Position: Sitting, BP Cuff Size: Large Adult) Pulse 64 Temp 36.3 C (97.4 F) (Temporal) Resp 16 Wt 112.9 kg (249 lb) BMI 38.42 kg/m Physical Exam Constitutional: General: He is not in acute distress. Cardiovascular: Rate and Rhythm: Normal rate and regular rhythm. Pulmonary: Breath sounds: Normal breath sounds. Musculoskeletal: Right lower leg: Edema present. Left lower leg: Edema present. Neurological: General: No focal deficit present. Mental Status: He is alert. Gait: Gait abnormal. Comments: Rollator dependent. Component Latest Ref Rng & Units 12/29/2021 Protein, Total 6.3 - 8.0 g/dL 5.8 (L) Albumin 3.9 - 4.9 g/dL 3.5 (L) Calcium 8.5 - 10.2 mg/dL 10.8 (H) Bilirubin, Total 0.2 - 1.3 mg/dL 0.4 Alkaline Phosphatase 38 - 113 U/L 85 AST 14 - 40 U/L 30 ALT 10 - 54 U/L 21 Glucose 74 - 99 mg/dL 108 (H) BUN 9 - 24 mg/dL 33 (H) Creatinine 0.73 - 1.22 mg/dL 1.31 (H) Sodium 136 - 144 mmol/L 140 Potassium 3.7 - 5.1 mmol/L 5.5 (H) Chloride 97 - 105 mmol/L 108 (H) CO2 22 - 30 mmol/L 25 Anion Gap 9 - 18 mmol/L 7 (L) eGFR >=60 mL/min/1.73m 54 (L) WBC 3.70 - 11.00 k/uL 5.22 RBC 4.20 - 6.00 m/uL 3.27 (L) Hemoglobin 13.0 - 17.0 g/dL 10.9 (L) Hematocrit 39.0 - 51.0 % 34.6 (L) MCV 80.0 - 100.0 fL 105.8 (H) MCH 26.0 - 34.0 pg 33.3 MCHC 30.5 - 36.0 g/dL 31.5 RDW-CV 11.5 - 15.0 % 15.0 Platelet Count 150 - 400 k/uL 69 (L) MPV 9.0 - 12.7 fL 12.2 Absolute nRBC <0.01 k/uL <0.01 Assessment and Plan 1. Peripheral polyneuropathy - ICD9: 356.9, ICD10: G62.9 (primary diagnosis) - To see neurology. - CONSULT TO OCCUPATIONAL THERE for driving safety evaluation. 2. Abnormality of gait - ICD9: 781.2, ICD10: R26.9 - 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 3. Stage 3a chronic kidney disease (HCC) - ICD9: 585.3, ICD10: N18.31 - eGFR: Stable - Discontinue LISINOPRIL. - BASIC METABOLIC PNL in 2 weeks. - Nephrology in 2 weeks. 4. Essential hypertension - ICD9: 401.9, ICD10: I10 - good control - See #3. Ricky Bradley MD documented in this encounterThe [facility]10-12-2022 Miscellaneous Notes* PT DISCHARGE - Leda Christensen PT - 01/26/2022 10:41 AM EDT SITUATION: private duty caregiver present during today's visit. patient reports the following sincethe last homecare visit: medications/allergies--no changes, no fall. patient reports he is doing good . States he would love to continue home PT if he could BACKGROUND: Diagnoses (reason for Home Care): falls Weight Bearing/Precaution Changes: no changes ASSESSMENT: Focus of visit: reassessment/discharge Explained to pt that he has plateaued and it would be a maintenance situation. 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 Functional performance at discharge - bed mobility independent, transfers independent, ambulation independent and stairs supervision. Plan of care, goals, and discharge reviewed and agreed upon with patient and/or caregiver. RECOMMENDATION: Patient discharged from home health services. Instructions to include:home exercise program as directed See intervention summary for intervention/education details. documented in this encounterThe [facility]10-10-2022 Miscellaneous Notes* PT ROUTINE/REASSESSMENT/RECERT/CASE MGMT - Raquel Shelly, ROLLER HELPER - 01/24/2022 8:53 AM EDT SITUATION: private duty caregiver present during today's visit. patient reports the following since the last homecare visit: medications/allergies--no changes, no fall. patient reports he is doing good . BACKGROUND: Diagnoses (reason for Home Care): falls Weight Bearing/Precaution Changes: no changes ASSESSMENT: Focus of visit seted and standing strength and balance exercises for HEP. patient remains challenged w/ seated left hip flexion but otherwise does well w/ exercises. to continue w/ ww or rollator forall ambulation for safety Plan of care, goals, and visit frequency reviewed and agreed upon with patient and/or caregiver. Current Discharge Plan: family support Anticipate discharge by 01/26/22 RECOMMENDATION: Next visit to focus on PT to see for possible DC See intervention summary for intervention/education details. documented in this encounterThe [facility]10-07-2022 Miscellaneous Notes* HH PT ROUTINE/REASSESSMENT/RECERT/CASE MGMT - Raquel Bravo PTA - 01/21/2022 2:31 PM EDT SITUATION: only patient present during today's visit. patient reports the following since the last homecare visit: medications/allergies--no changes, no fall. patient reports he is doing ok today. BACKGROUND: Diagnoses (reason for Home Care): physicians referral for falls and neuropathy fall last week with L hip contusion Weight Bearing/Precaution Changes: no changes ASSESSMENT: Focus of visit resumed standing exercises for strengthening and balance. gait training w/ww, transfers Plan of care, goals, and visit frequency reviewed and agreed upon with patient and/or caregiver. Current Discharge Plan: independent with home exercise program Anticipate discharge by 02/05/22 RECOMMENDATION: Next visit to focus on increase reps ifable See intervention summary for intervention/education details. documented in this encounterThe [facility]10-05-2022 Miscellaneous Notes* Telephone Encounter - Ingrid Dacosta RN - 01/19/2022 3:02 PM EDT Called and left a voicemail for the Patient's daughter to call back and ask for a nurse to receive the providers message. Faxed orders, last OV note, labs, and x-rays to [facility] at fax # [phone]. Ingrid Dacosta RN * Telephone Encounter - Ricky Bradley MD - 01/19/2022 1:13 PM EDT ASSESSMENT/PLAN: 1. Frequent falls - ICD9: V15.88, ICD10: R29.6 (primary diagnosis) - CONSULT TO NEUROLOGY 2. Peripheral polyneuropathy - ICD9: 356.9, ICD10: G62.9 - CONSULT TO NEUROLOGY Ricky Bradley MD * Telephone Encounter - Paradise Masterson RN - 01/17/2022 11:19 AM EDT Daughter (Ingris) calls to report that patient had another fall over the weekend. She is asking if provider would consider a consult to neurology for neuropathy and falls. Pended for review. Needs diagnosis. Ingris reports she would want it to be sent to [facility]. Fax number is [phone]. Phone number is [phone]. Please review and advise, Paradise Masterson RN documented in this encounterThe [facility]10-05-2022 Miscellaneous Notes* Telephone Encounter - Raquel Bravo PTA - 01/19/2022 2:35 PM EDT Patient reported he fell on Monday when ambulating outside of home. Denies injury and was able to complete PT today without concerns. Thanks documented in this encounterThe [facility]10-03-2022 Miscellaneous Notes* Telephone Encounter - Nirav Jj Ma - 01/17/2022 1:03 PM EDT Krzysztofay given to Jacquelin. Nirav Jj Ma * Telephone Encounter - Jenny Aviles APRN.CNP - 01/17/2022 12:18 PM EDT Olu Aviles APRN.CNP * Telephone Encounter - Rosario Kasper LPN - 01/13/2022 1:04 PM EDT Jacquelin from [facility] PT calling she did her re-assessment and would like to continue visits 2 times weekly for 2 more weeks. She is asking for verbal order please. If have problem reaching her onwork phone can call her person phone number. Please advise documented in this encounterThe [facility]09-29-2022 Miscellaneous Notes* PT ROUTINE/REASSESSMENT/RECERT/CASE MGMT - Jacquelin Jimenez, PT - 01/13/2022 11:24 AM EDT SITUATION: private duty caregiver present during today's visit. patient reports the following since the last homecare visit: medications/allergies--no changes, no fall. patient reports he thinks he needs more PT, . BACKGROUND: Diagnoses (reason for Home Care): physicians referral for falls and neuropathy fall last week with L hip contusion Weight Bearing/Precaution Changes: no changes ASSESSMENT: Focus of visit: reassessment of functional ability. Pt has improved however has not achieved goals;only tolerated 3 .5 minutes of standing activity. RPE 4/10. He will benefit from continued PT intervention Plan of care, goals, and visit frequency reviewed and agreed upon with patient and/or caregiver. Current Discharge Plan: independent with home exercise program Anticipate discharge by 01/28/22 RECOMMENDATION: continue PT 2w2 Next visit to focus on endurance, ther ex, mobility training See intervention summary for intervention/education details. documented in this encounterThe [facility]09-27-2022 Miscellaneous Notes* PT ROUTINE/REASSESSMENT/RECERT/CASE MGMT - Raquel Shelly, ROLLER HELPER - 01/11/2022 8:56 AM EDT SITUATION: only patient present during today's visit. patient reports the following since the last homecare visit: medications/allergies--no changes, no fall. patient reports he is doing ok. still not as strong as i want to be. . BACKGROUND: Diagnoses (reason for Home Care): physicians referral for falls and neuropathy fall last week with L hip contusion Weight Bearing/Precaution Changes: no changes ASSESSMENT: Focus of visit LE strength and balance exercises for HEP, gait training w/ww to increase safety w/ functional mobility. Challenged w/ tband and standing exercises. denies increased pain but did report of muscle fatigue after, L>R LE Issued NOMNC Plan of care, goals, and visit frequency reviewed and agreed upon with patient and/or caregiver. Current Discharge Plan: independent with home exercise program Anticipate discharge by TBD RECOMMENDATION: Next visit to focus on PT to see for possible DC or reassessment See intervention summary for intervention/education details. documented in this encounterThe [facility]09-21-2022 Miscellaneous Notes* PT ROUTINE/REASSESSMENT/RECERT/CASE MGMT - Leda Christensen, PT - 01/05/2022 9:01 AM EDT SITUATION: only patient present during today's visit. patient reports the following since the last homecare visit: medications/allergies--no changes, no fall. patient reports he has felt really good for past 2 days.. BACKGROUND: Diagnoses (reason for Home Care): physicians referral for falls and neuropathy fall last week with L hip contusion Weight Bearing/Precaution Changes: no changes ASSESSMENENT: advancing Le exercises Focusing on L HIp and bilateral hamstrings Plan of care, goals, and visit frequency reviewed and agreed upon with patient and/or caregiver. Current Discharge Plan: independent with home exercise program Anticipate discharge by 01/15/22 RECOMMENDATION: Next visit to focus on resume standing exercises for strength and balance See intervention summary for intervention/education details. documented in this encounterThe [facility]09-19-2022 Miscellaneous Notes* PT ROUTINE/REASSESSMENT/RECERT/CASE MGMT - Raquel Bravo PTA - 01/03/2022 2:11 PM EDT SITUATION: only patient present during today's visit. patient reports the following since the last homecare visit: medications/allergies--no changes, no fall. patient reports he has felt really good for past 2 days.. BACKGROUND: Diagnoses (reason for Home Care): physicians referral for falls and neuropathy fall last week with L hip contusion Weight Bearing/Precaution Changes: no changes ASSESSMENT:Focus of visit outdoor ambulation including uneven terrain w/ rollator and SBA.! seated rest break needed due to LE muscle fatigue transfers on/off chair Plan of care, goals, and visit frequency reviewed and agreed upon with patient and/or caregiver. Current Discharge Plan: independent with home exercise program Anticipate discharge by 01/15/22 RECOMMENDATION: Next visit to focus on resume standing exercises for strength and balance See intervention summary for intervention/education details. documented in this encounterThe [facility]09-16-2022 Miscellaneous Notes* PT ROUTINE/REASSESSMENT/RECERT/CASE MGMT - Leda Christensen, PT - 12/31/2021 2:21 PM EDT SITUATION: only patient present during today's visit. patient reports the following since the last homecare visit: medications/allergies--no changes, no fall. patient reports that he is a little tired and his L knee is a little sore - reports he was standing a lot making pickles yesterday BACKGROUND: Diagnoses (reason for Home Care): physicians referral for falls and neuropathy fall last week with L hip contusion Weight Bearing/Precaution Changes: no changes ASSESSMENT: Focus of visit progressiom of strength exercises for HEP, gait training w/ww and balce activities. denies increased pain w/ exercises today but did report of muscle fatigue Plan of care, goals, and visit frequency reviewed and agreed upon with patient and/or caregiver. Current Discharge Plan: independent with home exercise program Anticipate discharge by TBD RECOMMENDATION: Next visit to focus on out door ambulation if able See intervention summary for intervention/education details. documented in this encounterThe [facility]09-13-2022 Miscellaneous Notes* PT ROUTINE/REASSESSMENT/RECERT/CASE MGMT - Raquel Bravo, ROLLER HELPER - 12/28/2021 2:00 PM EDT SITUATION: only patient present during today's visit. patient reports the following since the last homecare visit: medications/allergies--no changes, no fall. patient reports he didnt sleep well last night and woke up with a stiff back. BACKGROUND: Diagnoses (reason for Home Care): physicians referral for falls and neuropathy fall last week with L hip contusion Weight Bearing/Precaution Changes: no changes ASSESSMENT: Focus of visit progressiom of strength exercises for HEP, gait training w/ww and balce activities. denies increased pain w/ exercises today but did report of muscle fatigue Plan of care, goals, and visit frequency reviewed and agreed upon with patient and/or caregiver. Current Discharge Plan: independent with home exercise program Anticipate discharge by TBD RECOMMENDATION: Next visit to focus on out door ambulation if able See intervention summary for intervention/education details. documented in this encounterThe [facility]22 Miscellaneous Notes* PT ROUTINE/REASSESSMENT/RECERT/CASE MGMT - Raquel Bravo PTA - 12/23/2021 10:29 AM EDT SITUATION: private duty caregiver present during today's visit. patient reports the following since the last homecare visit: medications/allergies--no changes, no fall. patient reports he was only a little soreafter last PT visit . . BACKGROUND: Diagnoses (reason for Home Care): fall w/left hip contusion Weight Bearing/Precaution Changes: no changes ASSESSMENT: Focus of visit strengthening exexises for HEP and gait training w/ rollator Plan of care, goals, and visit frequency reviewed and agreed upon with patient and/or caregiver. Current Discharge Plan: family support Anticipate discharge by 01/15/22 RECOMMENDATION: Next visit to focus on try standing hamstring curls and hip abduction See intervention summary for intervention/education details. documented in this encounterThe [facility]09-06-2022 Miscellaneous Notes* PT ROUTINE/REASSESSMENT/RECERT/CASE MGMT - Leda Christensen, PT - 12/21/2021 10:21 AM EDT SITUATION: paid cg present during today's visit. patient reports Im not too bad today . 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 Current Discharge Plan: independent with home exercise program Anticipate discharge by 01/15/22 RECOMMENDATION: Next visit to focus on assess for ex tolerance and DOMS , progress as able See intervention summary for intervention/education details. documented in this encounterThe [facility]09-02-2022 Miscellaneous Notes* PT SOC/HODA/FOLLOW UP/OTHER - Leda Christensen PT - 12/17/2021 3:06 PM EDT SITUATION: only patient present during today's visit. patient reports Im hoping you can help me stop falling . 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 Reviewed and explained homecare services. Plan of care, goals, and visit frequency developed, reviewed, and agreed upon with patient and/or caregiver. Patient Goal: stop falling Patient will benefit from continued physical therapy to address the following deficits: strength, balance, gait and transfers. Current Discharge Plan: independent with home exercise program. Anticipate discharge by 01/15/22. RECOMMENDATION: Next visit to focus on developing HEP Agreeable to PT; See intervention summary for intervention/education details. documented in this encounterThe [facility]08-29-2022 Miscellaneous Notes* Telephone Encounter - Krystal Johnson RN - 12/13/2021 1:02 PM EDT Spoke with patient's daughter, Ingris. Given message from provider's office. She verbalizes understanding. Krystal Johnson RN * Telephone Encounter - Carol Robertson LPN - 12/13/2021 12:56 PM EDT Left message for Ingris/daughter to call & ask to speak to a nurse. Carol Robertson LPN * Telephone Encounter - Ricky Bradley MD - 12/13/2021 12:15 PM EDT Referral for home therapy was reordered as clarified with home health. Patient should consider giving up driving. * Telephone Encounter - Paradise Masterson RN - 12/13/2021 8:45 AM EDT Son-In-Law (Angel) calls in on behalf of daughter Ingris to let provider know that patient has had 3more falls over the weekend while at his camper. Patient had to be assisted up all 3 times. No injuries but he is no longer able to assist self up and it is taking patient a lot longer to go up and down the stairs to the camper. Angel asking about patient continuing to drive and orders for HH therapy. Notified Angel that patient would be notified from [facility] as referral is still active. Paradise Masterson RN * Telephone Encounter - Krystal Johnson RN - 12/08/2021 4:31 PM EDT Patient's daughter calling to let PCP know that patient fell today and landed on his back and hit the back of his head/neck on a door. He is @ [facility] ER and has had a CT scan. His main complaint is neckpain. She says they have been unable to start PT due to more information needed. Please see Home Care note in Epic from Jacinda Barrett LPN sent yesterday. Daughter is requesting call back when PT can be initiated. Krystal Johnson RN documented in this encounterThe [facility]08-29-2022 Miscellaneous Notes* Telephone Encounter - Jacquelin Pavan - 12/13/2021 9:47 AM EDT Welcome Home Call: a. Date and Time: 9:48 AM 12/13/2021 b. Contact name/relationship: Satya jean-baptiste Have you been active with any Home Care company in the last 60 days(such as help with bathing, filling medications, checking your blood pressure) ? No. d. [facility] will be providing your care, are you agreeable to starting these services? yes (yes or no) e. Do you have any upcoming appointments in the next few days, or restrictions to your schedule? yes We would come to see you in 24-48* from your discharge today; Are you agreeable to a visit in that time frame? yes (Yes/ No (if no, when would you like to be seen?)) f. Caregiver: Patient is able to manage care independently Please keep our your medications both over the counter and prescribed out for the home care to review, your hospital discharge instructions and write down any questions you might have. In order to maintain a safe environment for our caregivers, [facility] requires anyanimals or weapons present in the home be located in a secured location. Our clinicians will call you the night before or the morning of the appointment. Their # may come up restricted but they'll leave a VM for you. In case you have any questions or concerns in the meantime, our # is [phone], option 1 Thank you for your time and have a great day. Jacquelin Browne documented in this encounterThe [facility]08-23-2022 Miscellaneous Notes* Telephone Encounter - Jacinda Barrett LPN - 12/07/2021 4:19 PM EDT Thank you for the Home Care Service referral. In order to proceed, we require an addendum for the following information on the encounter on 12/03/2021, per Medicare guidelines. The patient is homebound because of . The patient requires homecare because of . AND We are unable to use Contusion of hip region, Frequent falls, Muscular weakness, and Abnormality ofgait as a primary diagnosis. Please update orders to include a primary diagnosis causing symptoms: Contusion of hip region, Frequent falls, Muscular weakness, and Abnormality of gait. Kindly, complete an addendum to your 12/03/2021 visit to support homecare needs for this patient. A new order for homecare will need to be submitted with the matching Face to Face encounter date noted. If you have any questions, [facility] Home Care Intake can be reached at [phone]. Thank you in advance. Jacinda Barrett LPN Central Admissions Intake Nurse [phone] documented in this encounterThe [facility]08-04-2022 Miscellaneous Notes* Telephone Encounter - Carol Robertson LPN - 11/18/2021 1:21 PM EDT Home number does not have vm set up, left message on daughter's phone for Patient to call & speak to nurse for non-urgent results. Carol Robertson LPN * Telephone Encounter - Carol Robertson LPN - 11/18/2021 1:17 PM EDT ----- Message from Ricky Bradley MD sent at 11/17/2021 11:30 PM EDT ----- Stable anemia, low platelets. Glucose and kidney function okay and stable. documented in this encounterThe [facility]07-21-2022 Instructions* Patient Instructions* Ricky Bradley MD - 11/04/2021 10:13 AM EDT BLOOD TEST TODAY, NON FASTING. documented in this encounterThe Surgical Hospital At [facility]woods07-21-2022 History of Present illness Narrative* Ricky Bradley MD - 11/04/2021 10:04 AM EDT This note was created using [employer]. Subjective Satya Medellin is a 81 year old male. He had no new concerns. He did not do his labs. He was supposed to have a colonoscopy last year, but this kept getting cancelled and rescheduled for one reason or another. He had a history of tubular adenoma. He preferred to stay local for the colonoscopy. Dr. Diaz switched him to a BiPAP recently, due to air leaks. Review of Systems Constitutional: Negative. Respiratory: Negative for chest tightness and shortness of breath. Cardiovascular: Positive for leg swelling. Negative for chest pain and palpitations. Gastrointestinal: Negative for abdominal pain, blood in stool, constipation and diarrhea. Genitourinary: Negative. Musculoskeletal: Positive for gait problem. Hematological: Bruises/bleeds easily. 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 ASSIST ENTEROSCOPY W/ BX 01/14/2011 CAPSULE ENDO SMALL BOWEL W EGD 11/19/2010 COLONOSCOPY FLX DX W/COLLJ SPEC WHEN PFRMD 2000 Colonoscopy COLONOSCOPY FLX DX W/COLLJ SPEC WHEN PFRMD 2003 Colonoscopy COLONOSCOPY FLX DX W/COLLJ SPEC WHEN PFRMD 11/17/2010 Colonoscopy COLONOSCOPY FLX DX W/COLLJ SPEC WHEN PFRMD 10/02/2017 Colonoscopy COLONOSCOPY W/BIOPSY SINGLE/MULTIPLE 05/07/2007 ESOPHAGOGASTRODUODENOSCOPY TRANSORAL DIAGNOSTIC 10/02/2017 EGD ESOPHAGOGASTRODUODENOSCOPY TRANSORAL DIAGNOSTIC 04/08/2019 EGD ESOPHAGOGASTRODUODENOSCOPY TRANSORAL DIAGNOSTIC 05/09/2019 EGD EXCISION PILONIDAL CYST/SINUS SIMPLE 1964 HEMORRHOIDECTOMY INTERNAL RUBBER BAND LIGATIONS 12/29/201712/08 and 12/29/17 OPTX FEM SHFT FX W/INSJ IMED IMPLT W/WO SCREW Left 09/03/2019 L hip cephalo medullary nail. RPLCMT AORTIC VALVE OPN W/STENTLESS TISSUE VALVE 01/18/2011 25-mm Shannan-Fisher pericardial prosthesis via upper ministernotomy. RPR UMBILICAL HRNA 5 YRS/> REDUCIBLE 12/25/2009 Hernia repair, umbilical >5yr Current Outpatient Medications Medication Sig omeprazole (PRILOSEC) 40 mg capsule Take 1 capsule by mouth once daily. carvedilol (COREG) 12.5 mg tablet Take 1 tablet by mouth twice daily with meals. allopurinol (ZYLOPRIM) 300 mg tablet Take 1 tablet by mouth once daily. magnesium oxide 400 mg magnesium cap Take 1 capsule by mouth once daily. fenofibrate nanocrystallized (TRICOR) 48 mg tablet Take 1 tablet by mouth once daily. sertraline (ZOLOFT) 50 mg tablet Take 1 tablet by mouth once daily. lisinopril (ZESTRIL) 40 mg tablet Take 1 tablet by mouth once daily. nitroglycerin sublingual (NITROQUICK) 0.4 mg SL tablet Dissolve 1 tablet under the tongue every 5 minutes as needed for chest pain. FOR CHEST PAIN. IF NO RELIEF CALL 911 fluticasone (FLONASE) 50 mcg/actuation nasal spray Use 1 Sewell in each nostril once daily. ferrous sulfate 325 mg (65 mg iron) EC tablet Take 1 tablet by mouth twice daily with meals. oxybutynin ER (DITROPAN XL) 15 mg 24 hr Extended Rel Tab Take 2 tablets by mouth once daily. amoxicillin (POLYMOX, AMOXIL) 500 mg capsule Take four tablets, one hour prior to dental work betamethasone valerate 0.1 % lotion Apply to affected area twice daily. fluticasone-vilanterol (BREO ELLIPTA) 200-25 mcg/dose inhaler Inhale 1 Inhalation as instructed once daily. Inhale one puff once daily. DO NOT CLICK OPEN UNTIL READY FOR DOSE multivitamin tablet Take 1 tablet by mouth once daily. No current facility-administered medications for this visit. Objective BP 130/66 (BP Site: Left Arm, BP Position: Sitting, BP Cuff Size: Large Adult) Pulse 60 Temp 36.4 C (97.6 F) (Temporal Artery) Resp 16 Wt 113.4 kg (250 lb) BMI 38.58 kg/m Physical Exam Constitutional: General: He is not in acute distress. Eyes: Conjunctiva/sclera: Conjunctivae normal. Cardiovascular: Rate and Rhythm: Normal rate and regular rhythm. Heart sounds: No murmur heard. No gallop. Pulmonary: Breath sounds: Normal breath sounds. Abdominal: Palpations: Abdomen is soft. Tenderness: There is no abdominal tenderness. Musculoskeletal: Right lower le+ Pitting Edema present. Left lower le+ Pitting Edema present. Neurological: General: No focal deficit present. Mental Status: He is alert and oriented to person, place, and time. Comments: Using a rollator. Assessment and Plan 1. Adenomatous polyp of colon, unspecified part of colon - ICD9: 211.3, ICD10: D12.6 (primary diagnosis) Refer to Dr. Lopez. - CONSULT TO GASTROENTEROLOGY 2. Impaired fasting glucose - ICD9: 790.21, ICD10: R73.01 Recheck. 3. Stage 3 chronic kidney disease, unspecified whether stage 3a or 3b CKD (HCC) - ICD9: 585.3, ICD10: N18.30 Recheck. 4. Essential hypertension - ICD9: 401.9, ICD10: I10 - good control - Continue current medication(s) - Reviewed risks of HTN and principles of treatment 5. Anemia of chronic disease - ICD9: 285.29, ICD10: D63.8 Recheck. 6. Thrombocytopenia (HCC) - ICD9: 287.5, ICD10: D69.6 Recheck. Ricky Bradley MD documented in this encounterThe [facility]06-29-2022 Miscellaneous Notes* Telephone Encounter - Mary Pinon MA - 10/13/2021 11:24 AM EDT Will put an appt. Note for F/U with PCP 11/05 to assist with scheduling in GASTRO. Mary Pinon MA * Telephone Encounter - Ashley Zepeda LPN - 10/05/2021 12:44 PM EDT Attempted to reach patient to scheduled follow up with Sandrine. No answer and unable to leave a message. Please have patient keep in mind in order to complete scopes he has to have someone bring him to the appointment for the scopes and take him home afterwards. He is not able to take public transportation for the scopes. * Telephone Encounter - Sandrine Avila APRN.CNP - 09/29/2021 1:33 PM EDT He was to have schedule a EGD and Colonoscopy for further evaluation of anemia last year. He would need to reschedule with me to get worked up for scopes. \ Sandrine Avila APRN.CNP * Telephone Encounter - Ingrid Dacosta RN - 09/29/2021 9:45 AM EDT Pt reports he missed a call from us. Let Pt I couldn't find a note anywhere. The only thing I couldfind was that he needed to schedule his EGD and Colonoscopy. Pt reports provider wanted him to go to somewhere far away and Pt states he can't because he is an old man and would need to have someone take him. Pt states he is without electricity right now so he will have to call back to schedule it. documented in this encounterThe [facility]06-24-2022 Miscellaneous Notes* Telephone Encounter - Ingrid Dacosta RN - 10/08/2021 3:00 PM EDT Pt reports he was told by an DRAWING PRESS OPERATOR at the [place] to stop taking his HCTZ. I asked him if he had any swelling, and he reports that he has noticed his legs have been swelling since he has stopped. Pt asking if provider still wants him to take it. Pt also reports he does not have any Nitro, he ran his last bottle through the wash. Please call and advise. If provider still would like Pt on HCTZ, it would need to be added to medications that need ordered. Patient has been identified by name and date of : Yes Patient phones for refill(s): Pending Prescriptions Disp Refills OMEPRAZOLE 40 MG CAPSULE,DELAYED RELEASE 90 capsule 3 Sig: Take 1 capsule by mouth once daily. YOEL: No CARVEDILOL 12.5 MG TABLET 180 tablet 3 Sig: Take 1 tablet by mouth twice daily with meals. YOEL: No ALLOPURINOL 300 MG TABLET 90 tablet 3 Sig: Take 1 tablet by mouth once daily. YOEL: No MAGNESIUM 400 MG ( MAGNESIUM OXIDE) CAPSULE 90 capsule 3 Sig: Take 1 capsule by mouth once daily. YOEL: No FENOFIBRATE NANOCRYSTALLIZED 48 MG TABLET 90 tablet 3 Sig: Take 1 tablet by mouth once daily. YOEL: No SERTRALINE 50 MG TABLET 90 tablet 3 Sig: Take 1 tablet by mouth once daily. YOEL: No LISINOPRIL 40 MG TABLET 90 tablet 3 Sig: Take 1 tablet by mouth once daily. OYEL: No NITROGLYCERIN 0.4 MG SUBLINGUAL TABLET 25 tablet 3 Sig: Dissolve 1 tablet under the tongue as needed. FOR CHEST PAIN. IF NO RELIEF CALL 911 YOEL: No Date of last office visit in primary care: 05/07/21 Future visit: 11/04/21 Last 2 Encounter Wt Readings: Date: Wt: 05/07/2021 115.7 kg (255 lb) 10/09/2020 126.6 kg (279 lb) Previous labs/tests for medication: Cholesterol: HDL Cholesterol (mg/dL) Date Value 04/21/2021 25 LDL Cholesterol (mg/dL) Date Value 04/21/2021 68 ALT (U/L) Date Value 10/27/2020 18 10/27/2020 19 Non HDL Cholesterol (mg/dL) Date Value 04/21/2021 98 Blood Pressure: BUN (mg/dL) Date Value 04/21/2021 28 Sodium (mmol/L) Date Value 04/21/2021 139 Last 1 Encounter BP Readings: Date: BP: 07/06/2021 128/76 Blood Counts: WBC (k/uL) Date Value 04/21/2021 5.31 RBC (m/uL) Date Value 04/21/2021 3.72 Hematocrit (%) Date Value 04/21/2021 40.3 Hemoglobin (g/dL) Date Value 04/21/2021 12.9 Platelet Count (k/uL) Date Value 04/21/2021 69 Liver Function: ALT (U/L) Date Value 10/27/2020 18 10/27/2020 19 AST (U/L) Date Value 10/27/2020 30 10/27/2020 31 Please advise. Thank you. Ingrid Dacosta, RN documented in this encounterThe Surgical Hospital At [facility]woods03-22-2022 Miscellaneous Notes* Telephone Encounter - Jenny Aviles APRN.CNP - 07/06/2021 1:25 PM EDT Olu Aviles APRN.CNP * Telephone Encounter - Kaylie Radford LPN - 07/06/2021 12:35 PM EDT Manual Readin/76 Pulse: 62 Reason for blood pressure check - Last BP elevated Patient is: Taking medication as prescribed Yes Took medication today Yes If no, date medication last taken N/A Experiencing side effects No BP was elevated at last appt 05/07/21. No BP medication changes were made at that time. Taking all medications as prescribed. Denies any chest pain, unusual shortness of breath, dizziness, or headaches. No caffeine use. No personal history of tobacco use; no current exposure. Alert and oriented. Pt has been identified by name and birthdate: Yes Allergies reviewed: Yes Latex allergy: no. Medication - prescribed and OTC reviewed and updated: Yes Do you need any prescription refills prior to your next visit: No Health Maintenance: Reviewed and not up to date and provider notified Patient advised to continue with current medications and would be contacted if any further instructions after review by PCP. Kaylie Radford LPN documented in this encounterThe [facility]03-22-2022 History of Present illness Narrative* Kaylie Radford LPN - 07/06/2021 12:21 PM EDT Manual Readin/76 Pulse: 62 Reason for blood pressure check - Last BP elevated Patient is: Taking medication as prescribed Yes Took medication today Yes If no, date medication last taken N/A Experiencing side effects No BP was elevated at last appt 05/07/21. No BP medication changes were made at that time. Taking all medications as prescribed. Denies any chest pain, unusual shortness of breath, dizziness, or headaches. No caffeine use. No personal history of tobacco use; no current exposure. Alert and oriented. Pt has been identified by name and birthdate: Yes Allergies reviewed: Yes Latex allergy: no. Medication - prescribed and OTC reviewed and updated: Yes Do you need any prescription refills prior to your next visit: No Health Maintenance: Reviewed and not up to date and provider notified Patient advised to continue with current medications and would be contacted if any further instructions after review by PCP. Kaylie Radford LPN documented in this encounterThe Surgical Hospital At [facility]woods01-06-2021 History of Past illness Narrative* Problem Noted Date Diagnosed Date Resolved Date Obesity, Class II, BMI 35-39.9 04/22/2020 11/04/2022 Medicare annual wellness visit, subsequent 10/02/2018 02/18/2019 Encounter for long-term (cur rent) use of medications 09/07/2017 05/07/2021 Overview: Added automatically from request for surgery [id number] History of colonic polyps 09/07/2017 Overview: Added automatically from request for surgery [id number] Gastroesophageal reflux disease 09/07/2017 05/07/2021 Overview: Added automatically from request for surgery [id number] Acute pulmonary edema 01/19/20112010 Overview: 01/19/2011 cardiogenic and noncardiogenic factors Atelectasis 01/19/2011 01/20/2011 Hypotension 01/18/2011 01/20/2011 Overview: 01/18/2011 goal map 65-80 Stress hyperglycemia 01/18/2011 011 Overview: 01/18/2011 Perioperative insulin resistance and exacerbation of hyperglycemia. Control blood glucose with titration of insulin infusion 01/19/2011 adequate control goal FBG<180 Post-op pain 01/18/2011 01/20/2011 Mechanically assisted ventilation 01/18/2011 01/19/2011 Overview: 01/18/2011 optimize MV settings, WTE current setting:FiO2, 75%, peep 8 Cardiac insufficiency 01/18/20112010 Overview: 01/18/2011 RV mild to moderate post pump goal CI>2.3 Hypoxemia 01/18/2011 01/20/2011 discharge planning 01/12/2011 1 Overview: age 70, lives in [place], [place]. No DC needs. / Pre-op testing 01/12/2011 01/18/2011 Overview: Images from the original note were not included. [facility] PRE[facility] CHECKLIST Surgeon: Zenon Sanders M.D. Informed Consent Completed: No STS Score: 1.4% CAD: Yes - CAD on Problem List: Yes Is intended procedure a CABG: Yes - is a beta isamar ordered? Yes H & P completed: Yes PA/LAT: Completed CT: Completed MRI: N/A LE US: N/A Cath: Yes - reviewed: Yes Echo:Completed EKG: Completed EF %: 61 PI's: N/A Carotid: Completed Mapping: N/A Dental: Completed PFT's: N/A Basename 01/10/11 0729 WBC 7.18 HB 13.1 HCT 41.8 PLT 192 INR 1.0 CREAT 1.35 UA: Normal HCG:N/A ABO/ABO Confirmed: Yes Blood ordered: No SA Swab: Yes - results: Pending Last Dose of Anticoagulation: vitamins Op Note: N/A Pacemaker Check: N/A Consults: GI 01/10/2001 DM: No Cardiac Surgical prep: No SIGNATURE: Dede Mims RN CHECKED BY: DATE of SERVICE: 01/12/2011 TIME of SERVICE: 2:23 PM Anemia of chronic disease 11/19/2010 Intestinal polyp 11/17/2010 10/03/2011 Overview: Distal ileum ulcerated polyp. 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) 04/22/2020 documented as of this encounter (statuses as of 02/19/2023) [facility]06-18-2019 History of Past illness Narrative* Problem Noted Date Resolved Date Medicare annual wellness visit, subsequent 10/0202/18/2019 Encounter for long-term (current) use of medicat ions 09/07/2017 05/07/2021 Overview: Added automatically from request for surgery [id number] History of colonic polyps 09/07/20172021 Overview: Added automatically from request for surgery [id number] Gastroesophageal reflux disease 09/07/2017 05/07/2021 Overview: Added automatically from request for surgery [id number] Acute pulmonary edema 01/19/2011 01/20/2011 Overview: 01/19/2011 cardiogenic and noncardiogenic factors Atelectasis 01/19/2011 01/20/2011 Hypotension 01/18/2011 01/20/2011 Overview: 01/18/2011 goal map 65-80 Stress hyperglycemia 01/18/2011 01/20/2011 Overview: 01/18/2011 Perioperative insulin resistance and exacerbation of hyperglycemia. Control blood glucose with titration of insulin infusion 01/19/2011 adequate control goal FBG<180 Post-op pain 01/18/2011 01/20/2011 Mechanically assisted ventilation 01/18/2011 01/19/2011 Overview: 01/18/2011 optimize MV settings, WTE current setting:FiO2, 75%, peep 8 Cardiac insufficiency 01/18/2011 01/19/2011 Overview: 01/18/2011 RV mild to moderate post pump goal CI>2.3 Hypoxemia 01/18/2011 01/20/2011 discharge planning 01/12/2011 02/02/2011 Overview: age 70, lives in [place], [place]. No DC needs. / Pre-op testing 01/12/2011 01/18/2011 Overview: Images from the original note were not included. [facility] Surgeon: Zenon Sanders M.D. Informed Consent Completed: No STS Score: 1.4% CAD: Yes - CAD on Problem List: Yes Is intended procedure a CABG: Yes - is a beta isamar ordered? Yes H & P completed: Yes PA/LAT: Completed CT: Completed MRI: N/A LE US: N/A Cath: Yes - reviewed: Yes Echo:Completed EKG: Completed EF %: 61 PI's: N/A Carotid: Completed Mapping: N/A Dental: Completed PFT's: N/A Basename 01/10/11 0729 WBC 7.18 HB 13.1 HCT 41.8 PLT 192 INR 1.0 CREAT 1.35 UA: Normal HCG:N/A ABO/ABO Confirmed: Yes Blood ordered: No SA Swab: Yes - results: Pending Last Dose of Anticoagulation: vitamins Op Note: N/A Pacemaker Check: N/A Consults: GI 01/10/2001 DM: No Cardiac Surgical prep: No SIGNATURE: Dede Mims RN CHECKED BY: DATE of SERVICE: 01/12/2011 TIME of SERVICE: 2:23 PM Anemia of chronic disease 11/19/20102018 Intestinal polyp 11/17/2010 10/03/2011 Overview: Distal ileum ulcerated polyp. 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) 04/22/2020 documented as of this encounter (statuses as of 07/06/2021) [facility]06-18[facility]2019 History of Past illness Narrative* Problem Noted Date Resolved Date Medicare annual wellness visit, subsequent 10/0202/18/2019 Encounter for long-term (current) use of medicat ions 09/07/2017 05/07/2021 Overview: Added automatically from request for surgery [id number] History of colonic polyps 09/07/20172021 Overview: Added automatically from request for surgery [id number] Gastroesophageal reflux disease 09/07/2017 05/07/2021 Overview: Added automatically from request for surgery [id number] Acute pulmonary edema 01/19/2011 01/20/2011 Overview: 01/19/2011 cardiogenic and noncardiogenic factors Atelectasis 01/19/2011 01/20/2011 Hypotension 01/18/2011 01/20/2011 Overview: 01/18/2011 goal map 65-80 Stress hyperglycemia 01/18/2011 01/20/2011 Overview: 01/18/2011 Perioperative insulin resistance and exacerbation of hyperglycemia. Control blood glucose with titration of insulin infusion 01/19/2011 adequate control goal FBG<180 Post-op pain 01/18/2011 01/20/2011 Mechanically assisted ventilation 01/18/2011 01/19/2011 Overview: 01/18/2011 optimize MV settings, WTE current setting:FiO2, 75%, peep 8 Cardiac insufficiency 01/18/2011 01/19/2011 Overview: 01/18/2011 RV mild to moderate post pump goal CI>2.3 Hypoxemia 01/18/2011 01/20/2011 discharge planning 01/12/2011 02/02/2011 Overview: age 70, lives in [place], [place]. No DC needs. / Pre-op testing 01/12/2011 01/18/2011 Overview: Images from the original note were not included. [facility] Surgeon: Zenon Sanders M.D. Informed Consent Completed: No STS Score: 1.4% CAD: Yes - CAD on Problem List: Yes Is intended procedure a CABG: Yes - is a beta isamar ordered? Yes H & P completed: Yes PA/LAT: Completed CT: Completed MRI: N/A LE US: N/A Cath: Yes - reviewed: Yes Echo:Completed EKG: Completed EF %: 61 PI's: N/A Carotid: Completed Mapping: N/A Dental: Completed PFT's: N/A Basename 01/10/11 0729 WBC 7.18 HB 13.1 HCT 41.8 PLT 192 INR 1.0 CREAT 1.35 UA: Normal HCG:N/A ABO/ABO Confirmed: Yes Blood ordered: No SA Swab: Yes - results: Pending Last Dose of Anticoagulation: vitamins Op Note: N/A Pacemaker Check: N/A Consults: GI 01/10/2001 DM: No Cardiac Surgical prep: No SIGNATURE: Dede Mims RN CHECKED BY: DATE of SERVICE: 01/12/2011 TIME of SERVICE: 2:23 PM Anemia of chronic disease 11/19/20102018 Intestinal polyp 11/17/2010 10/03/2011 Overview: Distal ileum ulcerated polyp. 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) 04/22/2020 documented as of this encounter (statuses as of 07/06/2021) [facility]2019 History of Past illness Narrative* Problem Noted Date Resolved Date Medicare annual wellness visit, subsequent 10/0202/18/2019 Encounter for long-term (current) use of medicat ions 09/07/2017 05/07/2021 Overview: Added automatically from request for surgery [id number] History of colonic polyps 09/07/20172021 Overview: Added automatically from request for surgery [id number] Gastroesophageal reflux disease 09/07/2017 05/07/2021 Overview: Added automatically from request for surgery [id number] Acute pulmonary edema 01/19/2011 01/20/2011 Overview: 01/19/2011 cardiogenic and noncardiogenic factors Atelectasis 01/19/2011 01/20/2011 Hypotension 01/18/2011 01/20/2011 Overview: 01/18/2011 goal map 65-80 Stress hyperglycemia 01/18/2011 01/20/2011 Overview: 01/18/2011 Perioperative insulin resistance and exacerbation of hyperglycemia. Control blood glucose with titration of insulin infusion 01/19/2011 adequate control goal FBG<180 Post-op pain 01/18/2011 01/20/2011 Mechanically assisted ventilation 01/18/2011 01/19/2011 Overview: 01/18/2011 optimize MV settings, WTE current setting:FiO2, 75%, peep 8 Cardiac insufficiency 01/18/2011 01/19/2011 Overview: 01/18/2011 RV mild to moderate post pump goal CI>2.3 Hypoxemia 01/18/2011 01/20/2011 discharge planning 01/12/2011 02/02/2011 Overview: age 70, lives in [place], [place]. No DC needs. / Pre-op testing 01/12/2011 01/18/2011 Overview: Images from the original note were not included. [facility] Surgeon: Zenon Sanders M.D. Informed Consent Completed: No STS Score: 1.4% CAD: Yes - CAD on Problem List: Yes Is intended procedure a CABG: Yes - is a beta isamar ordered? Yes H & P completed: Yes PA/LAT: Completed CT: Completed MRI: N/A LE US: N/A Cath: Yes - reviewed: Yes Echo:Completed EKG: Completed EF %: 61 PI's: N/A Carotid: Completed Mapping: N/A Dental: Completed PFT's: N/A Basename 01/10/11 0729 WBC 7.18 HB 13.1 HCT 41.8 PLT 192 INR 1.0 CREAT 1.35 UA: Normal HCG:N/A ABO/ABO Confirmed: Yes Blood ordered: No SA Swab: Yes - results: Pending Last Dose of Anticoagulation: vitamins Op Note: N/A Pacemaker Check: N/A Consults: GI 01/10/2001 DM: No Cardiac Surgical prep: No SIGNATURE: Dede Mims RN CHECKED BY: DATE of SERVICE: 01/12/2011 TIME of SERVICE: 2:23 PM Anemia of chronic disease 11/19/20102018 Intestinal polyp 11/17/2010 10/03/2011 Overview: Distal ileum ulcerated polyp. Nonspecific abnormal results of liver function s [place] 04/04/2006 03/25/2011 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 09/0 04/2014 Obesity, Class III, BMI 40-49.9 (morbid obesity) 04/22/2020 documented as of this encounter (statuses as of 10/09/2021) [facility]06-18[facility]2019 History of Past illness Narrative* Problem Noted Date Resolved Date Medicare annual wellness visit, subsequent 10/0202/18/2019 Encounter for long-term (current) use of medicat ions 09/07/2017 05/07/2021 Overview: Added automatically from request for surgery [id number] History of colonic polyps 09/07/20172021 Overview: Added automatically from request for surgery [id number] Gastroesophageal reflux disease 09/07/2017 05/07/2021 Overview: Added automatically from request for surgery [id number] Acute pulmonary edema 01/19/2011 01/20/2011 Overview: 01/19/2011 cardiogenic and noncardiogenic factors Atelectasis 01/19/2011 01/20/2011 Hypotension 01/18/2011 01/20/2011 Overview: 01/18/2011 goal map 65-80 Stress hyperglycemia 01/18/2011 01/20/2011 Overview: 01/18/2011 Perioperative insulin resistance and exacerbation of hyperglycemia. Control blood glucose with titration of insulin infusion 01/19/2011 adequate control goal FBG<180 Post-op pain 01/18/2011 01/20/2011 Mechanically assisted ventilation 01/18/2011 01/19/2011 Overview: 01/18/2011 optimize MV settings, WTE current setting:FiO2, 75%, peep 8 Cardiac insufficiency 01/18/2011 01/19/2011 Overview: 01/18/2011 RV mild to moderate post pump goal CI>2.3 Hypoxemia 01/18/2011 01/20/2011 discharge planning 01/12/2011 02/02/2011 Overview: age 70, lives in [place], [place]. No DC needs. / Pre-op testing 01/12/2011 01/18/2011 Overview: Images from the original note were not included. [facility] Surgeon: Zenon Sanders M.D. Informed Consent Completed: No STS Score: 1.4% CAD: Yes - CAD on Problem List: Yes Is intended procedure a CABG: Yes - is a beta isamar ordered? Yes H & P completed: Yes PA/LAT: Completed CT: Completed MRI: N/A LE US: N/A Cath: Yes - reviewed: Yes Echo:Completed EKG: Completed EF %: 61 PI's: N/A Carotid: Completed Mapping: N/A Dental: Completed PFT's: N/A Basename 01/10/11 0729 WBC 7.18 HB 13.1 HCT 41.8 PLT 192 INR 1.0 CREAT 1.35 UA: Normal HCG:N/A ABO/ABO Confirmed: Yes Blood ordered: No SA Swab: Yes - results: Pending Last Dose of Anticoagulation: vitamins Op Note: N/A Pacemaker Check: N/A Consults: GI 01/10/2001 DM: No Cardiac Surgical prep: No SIGNATURE: Dede Mims RN CHECKED BY: DATE of SERVICE: 01/12/2011 TIME of SERVICE: 2:23 PM Anemia of chronic disease 11/19/20102018 Intestinal polyp 11/17/2010 10/03/2011 Overview: Distal ileum ulcerated polyp. 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) 04/22/2020 documented as of this encounter (statuses as of 10/13/2021) [facility]06-18-2019 History of Past illness Narrative* Problem Noted Date Resolved Date Medicare annual wellness visit, subsequent 10/0202/18/2019 Encounter for long-term (current) use of medicat ions 09/07/2017 05/07/2021 Overview: Added automatically from request for surgery [id number] History of colonic polyps 09/07/20172021 Overview: Added automatically from request for surgery [id number] Gastroesophageal reflux disease 09/07/2017 05/07/2021 Overview: Added automatically from request for surgery [id number] Acute pulmonary edema 01/19/2011 01/20/2011 Overview: 01/19/2011 cardiogenic and noncardiogenic factors Atelectasis 01/19/2011 01/20/2011 Hypotension 01/18/2011 01/20/2011 Overview: 01/18/2011 goal map 65-80 Stress hyperglycemia 01/18/2011 01/20/2011 Overview: 01/18/2011 Perioperative insulin resistance and exacerbation of hyperglycemia. Control blood glucose with titration of insulin infusion 01/19/2011 adequate control goal FBG<180 Post-op pain 01/18/2011 01/20/2011 Mechanically assisted ventilation 01/18/2011 01/19/2011 Overview: 01/18/2011 optimize MV settings, WTE current setting:FiO2, 75%, peep 8 Cardiac insufficiency 01/18/2011 01/19/2011 Overview: 01/18/2011 RV mild to moderate post pump goal CI>2.3 Hypoxemia 01/18/2011 01/20/2011 discharge planning 01/12/2011 02/02/2011 Overview: age 70, lives in [place], [place]. No DC needs. / Pre-op testing 01/12/2011 01/18/2011 Overview: Images from the original note were not included. [facility] Surgeon: Zenon Sanders M.D. Informed Consent Completed: No STS Score: 1.4% CAD: Yes - CAD on Problem List: Yes Is intended procedure a CABG: Yes - is a beta isamar ordered? Yes H & P completed: Yes PA/LAT: Completed CT: Completed MRI: N/A LE US: N/A Cath: Yes - reviewed: Yes Echo:Completed EKG: Completed EF %: 61 PI's: N/A Carotid: Completed Mapping: N/A Dental: Completed PFT's: N/A Basename 01/10/11 0729 WBC 7.18 HB 13.1 HCT 41.8 PLT 192 INR 1.0 CREAT 1.35 UA: Normal HCG:N/A ABO/ABO Confirmed: Yes Blood ordered: No SA Swab: Yes - results: Pending Last Dose of Anticoagulation: vitamins Op Note: N/A Pacemaker Check: N/A Consults: GI 01/10/2001 DM: No Cardiac Surgical prep: No SIGNATURE: Dede Mims RN CHECKED BY: DATE of SERVICE: 01/12/2011 TIME of SERVICE: 2:23 PM Anemia of chronic disease 11/19/20102018 Intestinal polyp 11/17/2010 10/03/2011 Overview: Distal ileum ulcerated polyp. Nonspecific abnormal results of liver function s [place] 04/04/2006 03/25/2011 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04/2014 Obesity, Class III, BMI 40-49.9 (morbid obesity) 04/22/2020 documented as of this encounter (statuses as of 11/04/2021) [facility]2019 History of Past illness Narrative* Problem Noted Date Resolved Date Medicare annual wellness visit, subsequent 10/0202/18/2019 Encounter for long-term (current) use of medicat ions 09/07/2017 05/07/2021 Overview: Added automatically from request for surgery [id number] History of colonic polyps 09/07/20172021 Overview: Added automatically from request for surgery [id number] Gastroesophageal reflux disease 09/07/2017 05/07/2021 Overview: Added automatically from request for surgery [id number] Acute pulmonary edema 01/19/2011 01/20/2011 Overview: 01/19/2011 cardiogenic and noncardiogenic factors Atelectasis 01/19/2011 01/20/2011 Hypotension 01/18/2011 01/20/2011 Overview: 01/18/2011 goal map 65-80 Stress hyperglycemia 01/18/2011 01/20/2011 Overview: 01/18/2011 Perioperative insulin resistance and exacerbation of hyperglycemia. Control blood glucose with titration of insulin infusion 01/19/2011 adequate control goal FBG<180 Post-op pain 01/18/2011 01/20/2011 Mechanically assisted ventilation 01/18/2011 01/19/2011 Overview: 01/18/2011 optimize MV settings, WTE current setting:FiO2, 75%, peep 8 Cardiac insufficiency 01/18/2011 01/19/2011 Overview: 01/18/2011 RV mild to moderate post pump goal CI>2.3 Hypoxemia 01/18/2011 01/20/2011 discharge planning 01/12/2011 02/02/2011 Overview: age 70, lives in [place], [place]. No DC needs. / Pre-op testing 01/12/2011 01/18/2011 Overview: Images from the original note were not included. [facility] Surgeon: Zenon Sanders M.D. Informed Consent Completed: No STS Score: 1.4% CAD: Yes - CAD on Problem List: Yes Is intended procedure a CABG: Yes - is a beta isamar ordered? Yes H & P completed: Yes PA/LAT: Completed CT: Completed MRI: N/A LE US: N/A Cath: Yes - reviewed: Yes Echo:Completed EKG: Completed EF %: 61 PI's: N/A Carotid: Completed Mapping: N/A Dental: Completed PFT's: N/A Basename 01/10/11 0729 WBC 7.18 HB 13.1 HCT 41.8 PLT 192 INR 1.0 CREAT 1.35 UA: Normal HCG:N/A ABO/ABO Confirmed: Yes Blood ordered: No SA Swab: Yes - results: Pending Last Dose of Anticoagulation: vitamins Op Note: N/A Pacemaker Check: N/A Consults: GI 01/10/2001 DM: No Cardiac Surgical prep: No SIGNATURE: Dede Mims RN CHECKED BY: DATE of SERVICE: 01/12/2011 TIME of SERVICE: 2:23 PM Anemia of chronic disease 11/19/20102018 Intestinal polyp 11/17/2010 10/03/2011 Overview: Distal ileum ulcerated polyp. Nonspecific abnormal results of liver function s tudy 04/04/2006 03/25/2011 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/04/2014 Obesity, Class III, BMI 40-49.9 (morbid obesity) 04/22/2020 documented as of this encounter (statuses as of 11/18/2021) [facility]2019 History of Past illness Narrative* Problem Noted Date Resolved Date Medicare annual wellness visit, subsequent 10/0202/18/2019 Encounter for long-term (current) use of medicat ions 09/07/2017 05/07/2021 Overview: Added automatically from request for surgery [id number] History of colonic polyps 09/07/20172021 Overview: Added automatically from request for surgery [id number] Gastroesophageal reflux disease 09/07/2017 05/07/2021 Overview: Added automatically from request for surgery [id number] Acute pulmonary edema 01/19/2011 01/20/2011 Overview: 01/19/2011 cardiogenic and noncardiogenic factors Atelectasis 01/19/2011 01/20/2011 Hypotension 01/18/2011 01/20/2011 Overview: 01/18/2011 goal map 65-80 Stress hyperglycemia 01/18/2011 01/20/2011 Overview: 01/18/2011 Perioperative insulin resistance and exacerbation of hyperglycemia. Control blood glucose with titration of insulin infusion 01/19/2011 adequate control goal FBG<180 Post-op pain 01/18/2011 01/20/2011 Mechanically assisted ventilation 01/18/2011 01/19/2011 Overview: 01/18/2011 optimize MV settings, WTE current setting:FiO2, 75%, peep 8 Cardiac insufficiency 01/18/2011 01/19/2011 Overview: 01/18/2011 RV mild to moderate post pump goal CI>2.3 Hypoxemia 01/18/2011 01/20/2011 discharge planning 01/12/2011 02/02/2011 Overview: age 70, lives in [place], [place]. No DC needs. / Pre-op testing 01/12/2011 01/18/2011 Overview: Images from the original note were not included. [facility] Surgeon: Zenon Sanders M.D. Informed Consent Completed: No STS Score: 1.4% CAD: Yes - CAD on Problem List: Yes Is intended procedure a CABG: Yes - is a beta isamar ordered? Yes H & P completed: Yes PA/LAT: Completed CT: Completed MRI: N/A LE US: N/A Cath: Yes - reviewed: Yes Echo:Completed EKG: Completed EF %: 61 PI's: N/A Carotid: Completed Mapping: N/A Dental: Completed PFT's: N/A Basename 01/10/11 0729 WBC 7.18 HB 13.1 HCT 41.8 PLT 192 INR 1.0 CREAT 1.35 UA: Normal HCG:N/A ABO/ABO Confirmed: Yes Blood ordered: No SA Swab: Yes - results: Pending Last Dose of Anticoagulation: vitamins Op Note: N/A Pacemaker Check: N/A Consults: GI 01/10/2001 DM: No Cardiac Surgical prep: No SIGNATURE: Dede Mims RN CHECKED BY: DATE of SERVICE: 01/12/2011 TIME of SERVICE: 2:23 PM Anemia of chronic disease 11/19/20102018 Intestinal polyp 11/17/2010 10/03/2011 Overview: Distal ileum ulcerated polyp. Nonspecific abnormal results of liver function s [place] 04/04/2006 03/25/2011 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/04/2014 Obesity, Class III, BMI 40-49.9 (morbid obesity) 04/22/2020 documented as of this encounter (statuses as of 12/13/2021) [facility] History of Past illness Narrative* Problem Noted Date Resolved Date Medicare annual wellness visit, subsequent 10/0202/18/2019 Encounter for long-term (current) use of medicat ions 09/07/2017 05/07/2021 Overview: Added automatically from request for surgery [id number] History of colonic polyps 09/07/20172021 Overview: Added automatically from request for surgery [id number] Gastroesophageal reflux disease 09/07/2017 05/07/2021 Overview: Added automatically from request for surgery [id number] Acute pulmonary edema 01/19/2011 01/20/2011 Overview: 01/19/2011 cardiogenic and noncardiogenic factors Atelectasis 01/19/2011 01/20/2011 Hypotension 01/18/2011 01/20/2011 Overview: 01/18/2011 goal map 65-80 Stress hyperglycemia 01/18/2011 01/20/2011 Overview: 01/18/2011 Perioperative insulin resistance and exacerbation of hyperglycemia. Control blood glucose with titration of insulin infusion 01/19/2011 adequate control goal FBG<180 Post-op pain 01/18/2011 01/20/2011 Mechanically assisted ventilation 01/18/2011 01/19/2011 Overview: 01/18/2011 optimize MV settings, WTE current setting:FiO2, 75%, peep 8 Cardiac insufficiency 01/18/2011 01/19/2011 Overview: 01/18/2011 RV mild to moderate post pump goal CI>2.3 Hypoxemia 01/18/2011 01/20/2011 discharge planning 01/12/2011 02/02/2011 Overview: age 70, lives in [place], [place]. No DC needs. / Pre-op testing 01/12/2011 01/18/2011 Overview: Images from the original note were not included. [facility] Surgeon: Zenon Sanders M.D. Informed Consent Completed: No STS Score: 1.4% CAD: Yes - CAD on Problem List: Yes Is intended procedure a CABG: Yes - is a beta isamar ordered? Yes H & P completed: Yes PA/LAT: Completed CT: Completed MRI: N/A LE US: N/A Cath: Yes - reviewed: Yes Echo:Completed EKG: Completed EF %: 61 PI's: N/A Carotid: Completed Mapping: N/A Dental: Completed PFT's: N/A Basename 01/10/11 0729 WBC 7.18 HB 13.1 HCT 41.8 PLT 192 INR 1.0 CREAT 1.35 UA: Normal HCG:N/A ABO/ABO Confirmed: Yes Blood ordered: No SA Swab: Yes - results: Pending Last Dose of Anticoagulation: vitamins Op Note: N/A Pacemaker Check: N/A Consults: GI 01/10/2001 DM: No Cardiac Surgical prep: No SIGNATURE: Dede Mims RN CHECKED BY: DATE of SERVICE: 01/12/2011 TIME of SERVICE: 2:23 PM Anemia of chronic disease 11/19/20102018 Intestinal polyp 11/17/2010 10/03/2011 Overview: Distal ileum ulcerated polyp. 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) 04/22/2020 documented as of this encounter (statuses as of 12/13/2021) [facility] History of Past illness Narrative* Problem Noted Date Resolved Date Medicare annual wellness visit, subsequent 10/0202/18/2019 Encounter for long-term (current) use of medicat ions 09/07/2017 05/07/2021 Overview: Added automatically from request for surgery [id number] History of colonic polyps 09/07/20172021 Overview: Added automatically from request for surgery [id number] Gastroesophageal reflux disease 09/07/2017 05/07/2021 Overview: Added automatically from request for surgery [id number] Acute pulmonary edema 01/19/2011 01/20/2011 Overview: 01/19/2011 cardiogenic and noncardiogenic factors Atelectasis 01/19/2011 01/20/2011 Hypotension 01/18/2011 01/20/2011 Overview: 01/18/2011 goal map 65-80 Stress hyperglycemia 01/18/2011 01/20/2011 Overview: 01/18/2011 Perioperative insulin resistance and exacerbation of hyperglycemia. Control blood glucose with titration of insulin infusion 01/19/2011 adequate control goal FBG<180 Post-op pain 01/18/2011 01/20/2011 Mechanically assisted ventilation 01/18/2011 01/19/2011 Overview: 01/18/2011 optimize MV settings, WTE current setting:FiO2, 75%, peep 8 Cardiac insufficiency 01/18/2011 01/19/2011 Overview: 01/18/2011 RV mild to moderate post pump goal CI>2.3 Hypoxemia 01/18/2011 01/20/2011 discharge planning 01/12/2011 02/02/2011 Overview: age 70, lives in [place], [place]. No DC needs. / Pre-op testing 01/12/2011 01/18/2011 Overview: Images from the original note were not included. [facility] Surgeon: Zenon Sanders M.D. Informed Consent Completed: No STS Score: 1.4% CAD: Yes - CAD on Problem List: Yes Is intended procedure a CABG: Yes - is a beta isamar ordered? Yes H & P completed: Yes PA/LAT: Completed CT: Completed MRI: N/A LE US: N/A Cath: Yes - reviewed: Yes Echo:Completed EKG: Completed EF %: 61 PI's: N/A Carotid: Completed Mapping: N/A Dental: Completed PFT's: N/A Basename 01/10/11 0729 WBC 7.18 HB 13.1 HCT 41.8 PLT 192 INR 1.0 CREAT 1.35 UA: Normal HCG:N/A ABO/ABO Confirmed: Yes Blood ordered: No SA Swab: Yes - results: Pending Last Dose of Anticoagulation: vitamins Op Note: N/A Pacemaker Check: N/A Consults: GI 01/10/2001 DM: No Cardiac Surgical prep: No SIGNATURE: Dede Mims RN CHECKED BY: DATE of SERVICE: 01/12/2011 TIME of SERVICE: 2:23 PM Anemia of chronic disease 11/19/20102018 Intestinal polyp 11/17/2010 10/03/2011 Overview: Distal ileum ulcerated polyp. 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) 04/22/2020 documented as of this encounter (statuses as of 12/15/2021) [facility]06-18-2019 History of Past illness Narrative* Problem Noted Date Resolved Date Medicare annual wellness visit, subsequent 10/0202/18/2019 Encounter for long-term (current) use of medicat ions 09/07/2017 05/07/2021 Overview: Added automatically from request for surgery [id number] History of colonic polyps 09/07/20172021 Overview: Added automatically from request for surgery [id number] Gastroesophageal reflux disease 09/07/2017 05/07/2021 Overview: Added automatically from request for surgery [id number] Acute pulmonary edema 01/19/2011 01/20/2011 Overview: 01/19/2011 cardiogenic and noncardiogenic factors Atelectasis 01/19/2011 01/20/2011 Hypotension 01/18/2011 01/20/2011 Overview: 01/18/2011 goal map 65-80 Stress hyperglycemia 01/18/2011 01/20/2011 Overview: 01/18/2011 Perioperative insulin resistance and exacerbation of hyperglycemia. Control blood glucose with titration of insulin infusion 01/19/2011 adequate control goal FBG<180 Post-op pain 01/18/2011 01/20/2011 Mechanically assisted ventilation 01/18/2011 01/19/2011 Overview: 01/18/2011 optimize MV settings, WTE current setting:FiO2, 75%, peep 8 Cardiac insufficiency 01/18/2011 01/19/2011 Overview: 01/18/2011 RV mild to moderate post pump goal CI>2.3 Hypoxemia 01/18/2011 01/20/2011 discharge planning 01/12/2011 02/02/2011 Overview: age 70, lives in [place], [place]. No DC needs. / Pre-op testing 01/12/2011 01/18/2011 Overview: Images from the original note were not included. [facility] Surgeon: Zenon Sanders M.D. Informed Consent Completed: No STS Score: 1.4% CAD: Yes - CAD on Problem List: Yes Is intended procedure a CABG: Yes - is a beta isamar ordered? Yes H & P completed: Yes PA/LAT: Completed CT: Completed MRI: N/A LE US: N/A Cath: Yes - reviewed: Yes Echo:Completed EKG: Completed EF %: 61 PI's: N/A Carotid: Completed Mapping: N/A Dental: Completed PFT's: N/A Basename 01/10/11 0729 WBC 7.18 HB 13.1 HCT 41.8 PLT 192 INR 1.0 CREAT 1.35 UA: Normal HCG:N/A ABO/ABO Confirmed: Yes Blood ordered: No SA Swab: Yes - results: Pending Last Dose of Anticoagulation: vitamins Op Note: N/A Pacemaker Check: N/A Consults: GI 01/10/2001 DM: No Cardiac Surgical prep: No SIGNATURE: Dede Mims RN CHECKED BY: DATE of SERVICE: 01/12/2011 TIME of SERVICE: 2:23 PM Anemia of chronic disease 11/19/20102018 Intestinal polyp 11/17/2010 10/03/2011 Overview: Distal ileum ulcerated polyp. 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) 04/22/2020 documented as of this encounter (statuses as of 12/15/2021) [facility]06-18-2019 History of Past illness Narrative* Problem Noted Date Resolved Date Medicare annual wellness visit, subsequent 10/0202/18/2019 Encounter for long-term (current) use of medicat ions 09/07/2017 05/07/2021 Overview: Added automatically from request for surgery [id number] History of colonic polyps 09/07/20172021 Overview: Added automatically from request for surgery [id number] Gastroesophageal reflux disease 09/07/2017 05/07/2021 Overview: Added automatically from request for surgery [id number] Acute pulmonary edema 01/19/2011 01/20/2011 Overview: 01/19/2011 cardiogenic and noncardiogenic factors Atelectasis 01/19/2011 01/20/2011 Hypotension 01/18/2011 01/20/2011 Overview: 01/18/2011 goal map 65-80 Stress hyperglycemia 01/18/2011 01/20/2011 Overview: 01/18/2011 Perioperative insulin resistance and exacerbation of hyperglycemia. Control blood glucose with titration of insulin infusion 01/19/2011 adequate control goal FBG<180 Post-op pain 01/18/2011 01/20/2011 Mechanically assisted ventilation 01/18/2011 01/19/2011 Overview: 01/18/2011 optimize MV settings, WTE current setting:FiO2, 75%, peep 8 Cardiac insufficiency 01/18/2011 01/19/2011 Overview: 01/18/2011 RV mild to moderate post pump goal CI>2.3 Hypoxemia 01/18/2011 01/20/2011 discharge planning 01/12/2011 02/02/2011 Overview: age 70, lives in [place], [place]. No DC needs. / Pre-op testing 01/12/2011 01/18/2011 Overview: Images from the original note were not included. [facility] Surgeon: Zenon Sanders M.D. Informed Consent Completed: No STS Score: 1.4% CAD: Yes - CAD on Problem List: Yes Is intended procedure a CABG: Yes - is a beta isamar ordered? Yes H & P completed: Yes PA/LAT: Completed CT: Completed MRI: N/A LE US: N/A Cath: Yes - reviewed: Yes Echo:Completed EKG: Completed EF %: 61 PI's: N/A Carotid: Completed Mapping: N/A Dental: Completed PFT's: N/A Basename 01/10/11 0729 WBC 7.18 HB 13.1 HCT 41.8 PLT 192 INR 1.0 CREAT 1.35 UA: Normal HCG:N/A ABO/ABO Confirmed: Yes Blood ordered: No SA Swab: Yes - results: Pending Last Dose of Anticoagulation: vitamins Op Note: N/A Pacemaker Check: N/A Consults: GI 01/10/2001 DM: No Cardiac Surgical prep: No SIGNATURE: Dede Mims RN CHECKED BY: DATE of SERVICE: 01/12/2011 TIME of SERVICE: 2:23 PM Anemia of chronic disease 11/19/20102018 Intestinal polyp 11/17/2010 10/03/2011 Overview: Distal ileum ulcerated polyp. Nonspecific abnormal results of liver function s [place] 04/04/2006 03/25/2011 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04/2014 Obesity, Class III, BMI 40-49.9 (morbid obesity) 04/22/2020 documented as of this encounter (statuses as of 12/17/2021) [facility]2019 History of Past illness Narrative* Problem Noted Date Resolved Date Medicare annual wellness visit, subsequent 10/0202/18/2019 Encounter for long-term (current) use of medicat ions 09/07/2017 05/07/2021 Overview: Added automatically from request for surgery [id number] History of colonic polyps 09/07/20172021 Overview: Added automatically from request for surgery [id number] Gastroesophageal reflux disease 09/07/2017 05/07/2021 Overview: Added automatically from request for surgery [id number] Acute pulmonary edema 01/19/2011 01/20/2011 Overview: 01/19/2011 cardiogenic and noncardiogenic factors Atelectasis 01/19/2011 01/20/2011 Hypotension 01/18/2011 01/20/2011 Overview: 01/18/2011 goal map 65-80 Stress hyperglycemia 01/18/2011 01/20/2011 Overview: 01/18/2011 Perioperative insulin resistance and exacerbation of hyperglycemia. Control blood glucose with titration of insulin infusion 01/19/2011 adequate control goal FBG<180 Post-op pain 01/18/2011 01/20/2011 Mechanically assisted ventilation 01/18/2011 01/19/2011 Overview: 01/18/2011 optimize MV settings, WTE current setting:FiO2, 75%, peep 8 Cardiac insufficiency 01/18/2011 01/19/2011 Overview: 01/18/2011 RV mild to moderate post pump goal CI>2.3 Hypoxemia 01/18/2011 01/20/2011 discharge planning 01/12/2011 02/02/2011 Overview: age 70, lives in [place], [place]. No DC needs. / Pre-op testing 01/12/2011 01/18/2011 Overview: Images from the original note were not included. [facility] Surgeon: Zenon Sanders M.D. Informed Consent Completed: No STS Score: 1.4% CAD: Yes - CAD on Problem List: Yes Is intended procedure a CABG: Yes - is a beta isamar ordered? Yes H & P completed: Yes PA/LAT: Completed CT: Completed MRI: N/A LE US: N/A Cath: Yes - reviewed: Yes Echo:Completed EKG: Completed EF %: 61 PI's: N/A Carotid: Completed Mapping: N/A Dental: Completed PFT's: N/A Basename 01/10/11 0729 WBC 7.18 HB 13.1 HCT 41.8 PLT 192 INR 1.0 CREAT 1.35 UA: Normal HCG:N/A ABO/ABO Confirmed: Yes Blood ordered: No SA Swab: Yes - results: Pending Last Dose of Anticoagulation: vitamins Op Note: N/A Pacemaker Check: N/A Consults: GI 01/10/2001 DM: No Cardiac Surgical prep: No SIGNATURE: Dede Mims RN CHECKED BY: DATE of SERVICE: 01/12/2011 TIME of SERVICE: 2:23 PM Anemia of chronic disease 11/19/20102018 Intestinal polyp 11/17/2010 10/03/2011 Overview: Distal ileum ulcerated polyp. 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) 04/22/2020 documented as of this encounter (statuses as of 12/21/2021) [facility]06-18[facility]2019 History of Past illness Narrative* Problem Noted Date Resolved Date Medicare annual wellness visit, subsequent 10/0202/18/2019 Encounter for long-term (current) use of medicat ions 09/07/2017 05/07/2021 Overview: Added automatically from request for surgery [id number] History of colonic polyps 09/07/20172021 Overview: Added automatically from request for surgery [id number] Gastroesophageal reflux disease 09/07/2017 05/07/2021 Overview: Added automatically from request for surgery [id number] Acute pulmonary edema 01/19/2011 01/20/2011 Overview: 01/19/2011 cardiogenic and noncardiogenic factors Atelectasis 01/19/2011 01/20/2011 Hypotension 01/18/2011 01/20/2011 Overview: 01/18/2011 goal map 65-80 Stress hyperglycemia 01/18/2011 01/20/2011 Overview: 01/18/2011 Perioperative insulin resistance and exacerbation of hyperglycemia. Control blood glucose with titration of insulin infusion 01/19/2011 adequate control goal FBG<180 Post-op pain 01/18/2011 01/20/2011 Mechanically assisted ventilation 01/18/2011 01/19/2011 Overview: 01/18/2011 optimize MV settings, WTE current setting:FiO2, 75%, peep 8 Cardiac insufficiency 01/18/2011 01/19/2011 Overview: 01/18/2011 RV mild to moderate post pump goal CI>2.3 Hypoxemia 01/18/2011 01/20/2011 discharge planning 01/12/2011 02/02/2011 Overview: age 70, lives in [place], [place]. No DC needs. / Pre-op testing 01/12/2011 01/18/2011 Overview: Images from the original note were not included. [facility] Surgeon: Zenon Sanders M.D. Informed Consent Completed: No STS Score: 1.4% CAD: Yes - CAD on Problem List: Yes Is intended procedure a CABG: Yes - is a beta isamar ordered? Yes H & P completed: Yes PA/LAT: Completed CT: Completed MRI: N/A LE US: N/A Cath: Yes - reviewed: Yes Echo:Completed EKG: Completed EF %: 61 PI's: N/A Carotid: Completed Mapping: N/A Dental: Completed PFT's: N/A Basename 01/10/11 0729 WBC 7.18 HB 13.1 HCT 41.8 PLT 192 INR 1.0 CREAT 1.35 UA: Normal HCG:N/A ABO/ABO Confirmed: Yes Blood ordered: No SA Swab: Yes - results: Pending Last Dose of Anticoagulation: vitamins Op Note: N/A Pacemaker Check: N/A Consults: GI 01/10/2001 DM: No Cardiac Surgical prep: No SIGNATURE: Dede Mims RN CHECKED BY: DATE of SERVICE: 01/12/2011 TIME of SERVICE: 2:23 PM Anemia of chronic disease 11/19/20102018 Intestinal polyp 11/17/2010 10/03/2011 Overview: Distal ileum ulcerated polyp. 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) 04/22/2020 documented as of this encounter (statuses as of 12/23/2021) [facility]06-18-2019 History of Past illness Narrative* Problem Noted Date Resolved Date Medicare annual wellness visit, subsequent 10/0202/18/2019 Encounter for long-term (current) use of medicat ions 09/07/2017 05/07/2021 Overview: Added automatically from request for surgery [id number] History of colonic polyps 09/07/20172021 Overview: Added automatically from request for surgery [id number] Gastroesophageal reflux disease 09/07/2017 05/07/2021 Overview: Added automatically from request for surgery [id number] Acute pulmonary edema 01/19/2011 01/20/2011 Overview: 01/19/2011 cardiogenic and noncardiogenic factors Atelectasis 01/19/2011 01/20/2011 Hypotension 01/18/2011 01/20/2011 Overview: 01/18/2011 goal map 65-80 Stress hyperglycemia 01/18/2011 01/20/2011 Overview: 01/18/2011 Perioperative insulin resistance and exacerbation of hyperglycemia. Control blood glucose with titration of insulin infusion 01/19/2011 adequate control goal FBG<180 Post-op pain 01/18/2011 01/20/2011 Mechanically assisted ventilation 01/18/2011 01/19/2011 Overview: 01/18/2011 optimize MV settings, WTE current setting:FiO2, 75%, peep 8 Cardiac insufficiency 01/18/2011 01/19/2011 Overview: 01/18/2011 RV mild to moderate post pump goal CI>2.3 Hypoxemia 01/18/2011 01/20/2011 discharge planning 01/12/2011 02/02/2011 Overview: age 70, lives in [place], [place]. No DC needs. / Pre-op testing 01/12/2011 01/18/2011 Overview: Images from the original note were not included. [facility] Surgeon: Zenon Sanders M.D. Informed Consent Completed: No STS Score: 1.4% CAD: Yes - CAD on Problem List: Yes Is intended procedure a CABG: Yes - is a beta isamar ordered? Yes H & P completed: Yes PA/LAT: Completed CT: Completed MRI: N/A LE US: N/A Cath: Yes - reviewed: Yes Echo:Completed EKG: Completed EF %: 61 PI's: N/A Carotid: Completed Mapping: N/A Dental: Completed PFT's: N/A Basename 01/10/11 0729 WBC 7.18 HB 13.1 HCT 41.8 PLT 192 INR 1.0 CREAT 1.35 UA: Normal HCG:N/A ABO/ABO Confirmed: Yes Blood ordered: No SA Swab: Yes - results: Pending Last Dose of Anticoagulation: vitamins Op Note: N/A Pacemaker Check: N/A Consults: GI 01/10/2001 DM: No Cardiac Surgical prep: No SIGNATURE: Dede Mims RN CHECKED BY: DATE of SERVICE: 01/12/2011 TIME of SERVICE: 2:23 PM Anemia of chronic disease 11/19/20102018 Intestinal polyp 11/17/2010 10/03/2011 Overview: Distal ileum ulcerated polyp. 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) 04/22/2020 documented as of this encounter (statuses as of 12/28/2021) [facility]2019 History of Past illness Narrative* Problem Noted Date Resolved Date Medicare annual wellness visit, subsequent 10/0202/18/2019 Encounter for long-term (current) use of medicat ions 09/07/2017 05/07/2021 Overview: Added automatically from request for surgery [id number] History of colonic polyps 09/07/20172021 Overview: Added automatically from request for surgery [id number] Gastroesophageal reflux disease 09/07/2017 05/07/2021 Overview: Added automatically from request for surgery [id number] Acute pulmonary edema 01/19/2011 01/20/2011 Overview: 01/19/2011 cardiogenic and noncardiogenic factors Atelectasis 01/19/2011 01/20/2011 Hypotension 01/18/2011 01/20/2011 Overview: 01/18/2011 goal map 65-80 Stress hyperglycemia 01/18/2011 01/20/2011 Overview: 01/18/2011 Perioperative insulin resistance and exacerbation of hyperglycemia. Control blood glucose with titration of insulin infusion 01/19/2011 adequate control goal FBG<180 Post-op pain 01/18/2011 01/20/2011 Mechanically assisted ventilation 01/18/2011 01/19/2011 Overview: 01/18/2011 optimize MV settings, WTE current setting:FiO2, 75%, peep 8 Cardiac insufficiency 01/18/2011 01/19/2011 Overview: 01/18/2011 RV mild to moderate post pump goal CI>2.3 Hypoxemia 01/18/2011 01/20/2011 discharge planning 01/12/2011 02/02/2011 Overview: age 70, lives in [place], [place]. No DC needs. / Pre-op testing 01/12/2011 01/18/2011 Overview: Images from the original note were not included. [facility] Surgeon: Zenon Sanders M.D. Informed Consent Completed: No STS Score: 1.4% CAD: Yes - CAD on Problem List: Yes Is intended procedure a CABG: Yes - is a beta isamar ordered? Yes H & P completed: Yes PA/LAT: Completed CT: Completed MRI: N/A LE US: N/A Cath: Yes - reviewed: Yes Echo:Completed EKG: Completed EF %: 61 PI's: N/A Carotid: Completed Mapping: N/A Dental: Completed PFT's: N/A Basename 01/10/11 0729 WBC 7.18 HB 13.1 HCT 41.8 PLT 192 INR 1.0 CREAT 1.35 UA: Normal HCG:N/A ABO/ABO Confirmed: Yes Blood ordered: No SA Swab: Yes - results: Pending Last Dose of Anticoagulation: vitamins Op Note: N/A Pacemaker Check: N/A Consults: GI 01/10/2001 DM: No Cardiac Surgical prep: No SIGNATURE: Dede Mims RN CHECKED BY: DATE of SERVICE: 01/12/2011 TIME of SERVICE: 2:23 PM Anemia of chronic disease 11/19/20102018 Intestinal polyp 11/17/2010 10/03/2011 Overview: Distal ileum ulcerated polyp. Nonspecific abnormal results of liver function s [place] 04/04/2006 03/25/2011 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/0 04/2014 Obesity, Class III, BMI 40-49.9 (morbid obesity) 04/22/2020 documented as of this encounter (statuses as of 12/31/2021) [facility] History of Past illness Narrative* Problem Noted Date Resolved Date Medicare annual wellness visit, subsequent 10/0202/18/2019 Encounter for long-term (current) use of medicat ions 09/07/2017 05/07/2021 Overview: Added automatically from request for surgery [id number] History of colonic polyps 09/07/20172021 Overview: Added automatically from request for surgery [id number] Gastroesophageal reflux disease 09/07/2017 05/07/2021 Overview: Added automatically from request for surgery [id number] Acute pulmonary edema 01/19/2011 01/20/2011 Overview: 01/19/2011 cardiogenic and noncardiogenic factors Atelectasis 01/19/2011 01/20/2011 Hypotension 01/18/2011 01/20/2011 Overview: 01/18/2011 goal map 65-80 Stress hyperglycemia 01/18/2011 01/20/2011 Overview: 01/18/2011 Perioperative insulin resistance and exacerbation of hyperglycemia. Control blood glucose with titration of insulin infusion 01/19/2011 adequate control goal FBG<180 Post-op pain 01/18/2011 01/20/2011 Mechanically assisted ventilation 01/18/2011 01/19/2011 Overview: 01/18/2011 optimize MV settings, WTE current setting:FiO2, 75%, peep 8 Cardiac insufficiency 01/18/2011 01/19/2011 Overview: 01/18/2011 RV mild to moderate post pump goal CI>2.3 Hypoxemia 01/18/2011 01/20/2011 discharge planning 01/12/2011 02/02/2011 Overview: age 70, lives in [place], [place]. No DC needs. / Pre-op testing 01/12/2011 01/18/2011 Overview: Images from the original note were not included. [facility] Surgeon: Zenon Sanders M.D. Informed Consent Completed: No STS Score: 1.4% CAD: Yes - CAD on Problem List: Yes Is intended procedure a CABG: Yes - is a beta isamar ordered? Yes H & P completed: Yes PA/LAT: Completed CT: Completed MRI: N/A LE US: N/A Cath: Yes - reviewed: Yes Echo:Completed EKG: Completed EF %: 61 PI's: N/A Carotid: Completed Mapping: N/A Dental: Completed PFT's: N/A Basename 01/10/11 0729 WBC 7.18 HB 13.1 HCT 41.8 PLT 192 INR 1.0 CREAT 1.35 UA: Normal HCG:N/A ABO/ABO Confirmed: Yes Blood ordered: No SA Swab: Yes - results: Pending Last Dose of Anticoagulation: vitamins Op Note: N/A Pacemaker Check: N/A Consults: GI 01/10/2001 DM: No Cardiac Surgical prep: No SIGNATURE: Dede Mims RN CHECKED BY: DATE of SERVICE: 01/12/2011 TIME of SERVICE: 2:23 PM Anemia of chronic disease 11/19/20102018 Intestinal polyp 11/17/2010 10/03/2011 Overview: Distal ileum ulcerated polyp. Nonspecific abnormal results of liver function s yamiled[place] 04/04/2006 03/25/2011 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04/2014 Obesity, Class III, BMI 40-49.9 (morbid obesity) 04/22/2020 documented as of this encounter (statuses as of 01/03/2022) [facility] History of Past illness Narrative* Problem Noted Date Resolved Date Medicare annual wellness visit, subsequent 10/0202/18/2019 Encounter for long-term (current) use of medicat ions 09/07/2017 05/07/2021 Overview: Added automatically from request for surgery [id number] History of colonic polyps 09/07/20172021 Overview: Added automatically from request for surgery [id number] Gastroesophageal reflux disease 09/07/2017 05/07/2021 Overview: Added automatically from request for surgery [id number] Acute pulmonary edema 01/19/2011 01/20/2011 Overview: 01/19/2011 cardiogenic and noncardiogenic factors Atelectasis 01/19/2011 01/20/2011 Hypotension 01/18/2011 01/20/2011 Overview: 01/18/2011 goal map 65-80 Stress hyperglycemia 01/18/2011 01/20/2011 Overview: 01/18/2011 Perioperative insulin resistance and exacerbation of hyperglycemia. Control blood glucose with titration of insulin infusion 01/19/2011 adequate control goal FBG<180 Post-op pain 01/18/2011 01/20/2011 Mechanically assisted ventilation 01/18/2011 01/19/2011 Overview: 01/18/2011 optimize MV settings, WTE current setting:FiO2, 75%, peep 8 Cardiac insufficiency 01/18/2011 01/19/2011 Overview: 01/18/2011 RV mild to moderate post pump goal CI>2.3 Hypoxemia 01/18/2011 01/20/2011 discharge planning 01/12/2011 02/02/2011 Overview: age 70, lives in [place], [place]. No DC needs. / Pre-op testing 01/12/2011 01/18/2011 Overview: Images from the original note were not included. [facility] Surgeon: Zenon Sanders M.D. Informed Consent Completed: No STS Score: 1.4% CAD: Yes - CAD on Problem List: Yes Is intended procedure a CABG: Yes - is a beta isamar ordered? Yes H & P completed: Yes PA/LAT: Completed CT: Completed MRI: N/A LE US: N/A Cath: Yes - reviewed: Yes Echo:Completed EKG: Completed EF %: 61 PI's: N/A Carotid: Completed Mapping: N/A Dental: Completed PFT's: N/A Basename 01/10/11 0729 WBC 7.18 HB 13.1 HCT 41.8 PLT 192 INR 1.0 CREAT 1.35 UA: Normal HCG:N/A ABO/ABO Confirmed: Yes Blood ordered: No SA Swab: Yes - results: Pending Last Dose of Anticoagulation: vitamins Op Note: N/A Pacemaker Check: N/A Consults: GI 01/10/2001 DM: No Cardiac Surgical prep: No SIGNATURE: Dede Mims RN CHECKED BY: DATE of SERVICE: 01/12/2011 TIME of SERVICE: 2:23 PM Anemia of chronic disease 11/19/20102018 Intestinal polyp 11/17/2010 10/03/2011 Overview: Distal ileum ulcerated polyp. 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) 04/22/2020 documented as of this encounter (statuses as of 01/06/2022) [facility] History of Past illness Narrative* Problem Noted Date Resolved Date Medicare annual wellness visit, subsequent 10/0202/18/2019 Encounter for long-term (current) use of medicat ions 09/07/2017 05/07/2021 Overview: Added automatically from request for surgery [id number] History of colonic polyps 09/07/20172021 Overview: Added automatically from request for surgery [id number] Gastroesophageal reflux disease 09/07/2017 05/07/2021 Overview: Added automatically from request for surgery [id number] Acute pulmonary edema 01/19/2011 01/20/2011 Overview: 01/19/2011 cardiogenic and noncardiogenic factors Atelectasis 01/19/2011 01/20/2011 Hypotension 01/18/2011 01/20/2011 Overview: 01/18/2011 goal map 65-80 Stress hyperglycemia 01/18/2011 01/20/2011 Overview: 01/18/2011 Perioperative insulin resistance and exacerbation of hyperglycemia. Control blood glucose with titration of insulin infusion 01/19/2011 adequate control goal FBG<180 Post-op pain 01/18/2011 01/20/2011 Mechanically assisted ventilation 01/18/2011 01/19/2011 Overview: 01/18/2011 optimize MV settings, WTE current setting:FiO2, 75%, peep 8 Cardiac insufficiency 01/18/2011 01/19/2011 Overview: 01/18/2011 RV mild to moderate post pump goal CI>2.3 Hypoxemia 01/18/2011 01/20/2011 discharge planning 01/12/2011 02/02/2011 Overview: age 70, lives in [place], [place]. No DC needs. / Pre-op testing 01/12/2011 01/18/2011 Overview: Images from the original note were not included. [facility] Surgeon: Zenon Sanders M.D. Informed Consent Completed: No STS Score: 1.4% CAD: Yes - CAD on Problem List: Yes Is intended procedure a CABG: Yes - is a beta isamar ordered? Yes H & P completed: Yes PA/LAT: Completed CT: Completed MRI: N/A LE US: N/A Cath: Yes - reviewed: Yes Echo:Completed EKG: Completed EF %: 61 PI's: N/A Carotid: Completed Mapping: N/A Dental: Completed PFT's: N/A Basename 01/10/11 0729 WBC 7.18 HB 13.1 HCT 41.8 PLT 192 INR 1.0 CREAT 1.35 UA: Normal HCG:N/A ABO/ABO Confirmed: Yes Blood ordered: No SA Swab: Yes - results: Pending Last Dose of Anticoagulation: vitamins Op Note: N/A Pacemaker Check: N/A Consults: GI 01/10/2001 DM: No Cardiac Surgical prep: No SIGNATURE: Dede Mims RN CHECKED BY: DATE of SERVICE: 01/12/2011 TIME of SERVICE: 2:23 PM Anemia of chronic disease 11/19/20102018 Intestinal polyp 11/17/2010 10/03/2011 Overview: Distal ileum ulcerated polyp. 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/2014 Obesity, Class III, BMI 40-49.9 (morbid obesity) 04/22/2020 documented as of this encounter (statuses as of 01/11/2022) [facility]06-18-2019 History of Past illness Narrative* Problem Noted Date Resolved Date Medicare annual wellness visit, subsequent 10/0202/18/2019 Encounter for long-term (current) use of medicat ions 09/07/2017 05/07/2021 Overview: Added automatically from request for surgery [id number] History of colonic polyps 09/07/20172021 Overview: Added automatically from request for surgery [id number] Gastroesophageal reflux disease 09/07/2017 05/07/2021 Overview: Added automatically from request for surgery [id number] Acute pulmonary edema 01/19/2011 01/20/2011 Overview: 01/19/2011 cardiogenic and noncardiogenic factors Atelectasis 01/19/2011 01/20/2011 Hypotension 01/18/2011 01/20/2011 Overview: 01/18/2011 goal map 65-80 Stress hyperglycemia 01/18/2011 01/20/2011 Overview: 01/18/2011 Perioperative insulin resistance and exacerbation of hyperglycemia. Control blood glucose with titration of insulin infusion 01/19/2011 adequate control goal FBG<180 Post-op pain 01/18/2011 01/20/2011 Mechanically assisted ventilation 01/18/2011 01/19/2011 Overview: 01/18/2011 optimize MV settings, WTE current setting:FiO2, 75%, peep 8 Cardiac insufficiency 01/18/2011 01/19/2011 Overview: 01/18/2011 RV mild to moderate post pump goal CI>2.3 Hypoxemia 01/18/2011 01/20/2011 discharge planning 01/12/2011 02/02/2011 Overview: age 70, lives in [place], [place]. No DC needs. / Pre-op testing 01/12/2011 01/18/2011 Overview: Images from the original note were not included. [facility] Surgeon: Zenon Sanders M.D. Informed Consent Completed: No STS Score: 1.4% CAD: Yes - CAD on Problem List: Yes Is intended procedure a CABG: Yes - is a beta isamar ordered? Yes H & P completed: Yes PA/LAT: Completed CT: Completed MRI: N/A LE US: N/A Cath: Yes - reviewed: Yes Echo:Completed EKG: Completed EF %: 61 PI's: N/A Carotid: Completed Mapping: N/A Dental: Completed PFT's: N/A Basename 01/10/11 0729 WBC 7.18 HB 13.1 HCT 41.8 PLT 192 INR 1.0 CREAT 1.35 UA: Normal HCG:N/A ABO/ABO Confirmed: Yes Blood ordered: No SA Swab: Yes - results: Pending Last Dose of Anticoagulation: vitamins Op Note: N/A Pacemaker Check: N/A Consults: GI 01/10/2001 DM: No Cardiac Surgical prep: No SIGNATURE: Dede Mims RN CHECKED BY: DATE of SERVICE: 01/12/2011 TIME of SERVICE: 2:23 PM Anemia of chronic disease 11/19/20102018 Intestinal polyp 11/17/2010 10/03/2011 Overview: Distal ileum ulcerated polyp. Nonspecific abnormal results of liver function sarkis beckham 04/04/2006 03/25/2011 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04/2014 Obesity, Class III, BMI 40-49.9 (morbid obesity) 04/22/2020 documented as of this encounter (statuses as of 01/16/2022) [facility]06-18-2019 History of Past illness Narrative* Problem Noted Date Resolved Date Medicare annual wellness visit, subsequent 10/0202/18/2019 Encounter for long-term (current) use of medicat ions 09/07/2017 05/07/2021 Overview: Added automatically from request for surgery [id number] History of colonic polyps 09/07/20172021 Overview: Added automatically from request for surgery [id number] Gastroesophageal reflux disease 09/07/2017 05/07/2021 Overview: Added automatically from request for surgery [id number] Acute pulmonary edema 01/19/2011 01/20/2011 Overview: 01/19/2011 cardiogenic and noncardiogenic factors Atelectasis 01/19/2011 01/20/2011 Hypotension 01/18/2011 01/20/2011 Overview: 01/18/2011 goal map 65-80 Stress hyperglycemia 01/18/2011 01/20/2011 Overview: 01/18/2011 Perioperative insulin resistance and exacerbation of hyperglycemia. Control blood glucose with titration of insulin infusion 01/19/2011 adequate control goal FBG<180 Post-op pain 01/18/2011 01/20/2011 Mechanically assisted ventilation 01/18/2011 01/19/2011 Overview: 01/18/2011 optimize MV settings, WTE current setting:FiO2, 75%, peep 8 Cardiac insufficiency 01/18/2011 01/19/2011 Overview: 01/18/2011 RV mild to moderate post pump goal CI>2.3 Hypoxemia 01/18/2011 01/20/2011 discharge planning 01/12/2011 02/02/2011 Overview: age 70, lives in [place], [place]. No DC needs. / Pre-op testing 01/12/2011 01/18/2011 Overview: Images from the original note were not included. [facility] Surgeon: Zenon Sanders M.D. Informed Consent Completed: No STS Score: 1.4% CAD: Yes - CAD on Problem List: Yes Is intended procedure a CABG: Yes - is a beta isamar ordered? Yes H & P completed: Yes PA/LAT: Completed CT: Completed MRI: N/A LE US: N/A Cath: Yes - reviewed: Yes Echo:Completed EKG: Completed EF %: 61 PI's: N/A Carotid: Completed Mapping: N/A Dental: Completed PFT's: N/A Basename 01/10/11 0729 WBC 7.18 HB 13.1 HCT 41.8 PLT 192 INR 1.0 CREAT 1.35 UA: Normal HCG:N/A ABO/ABO Confirmed: Yes Blood ordered: No SA Swab: Yes - results: Pending Last Dose of Anticoagulation: vitamins Op Note: N/A Pacemaker Check: N/A Consults: GI 01/10/2001 DM: No Cardiac Surgical prep: No SIGNATURE: Dede Mims RN CHECKED BY: DATE of SERVICE: 01/12/2011 TIME of SERVICE: 2:23 PM Anemia of chronic disease 11/19/20102018 Intestinal polyp 11/17/2010 10/03/2011 Overview: Distal ileum ulcerated polyp. Nonspecific abnormal results of liver function s yamiledy 04/04/2006 03/25/2011 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04/2014 Obesity, Class III, BMI 40-49.9 (morbid obesity) 04/22/2020 documented as of this encounter (statuses as of 01/17/2022) [facility]-18[facility]2019 History of Past illness Narrative* Problem Noted Date Resolved Date Medicare annual wellness visit, subsequent 10/0202/18/2019 Encounter for long-term (current) use of medicat ions 09/07/2017 05/07/2021 Overview: Added automatically from request for surgery [id number] History of colonic polyps 09/07/20172021 Overview: Added automatically from request for surgery [id number] Gastroesophageal reflux disease 09/07/2017 05/07/2021 Overview: Added automatically from request for surgery [id number] Acute pulmonary edema 01/19/2011 01/20/2011 Overview: 01/19/2011 cardiogenic and noncardiogenic factors Atelectasis 01/19/2011 01/20/2011 Hypotension 01/18/2011 01/20/2011 Overview: 01/18/2011 goal map 65-80 Stress hyperglycemia 01/18/2011 01/20/2011 Overview: 01/18/2011 Perioperative insulin resistance and exacerbation of hyperglycemia. Control blood glucose with titration of insulin infusion 01/19/2011 adequate control goal FBG<180 Post-op pain 01/18/2011 01/20/2011 Mechanically assisted ventilation 01/18/2011 01/19/2011 Overview: 01/18/2011 optimize MV settings, WTE current setting:FiO2, 75%, peep 8 Cardiac insufficiency 01/18/2011 01/19/2011 Overview: 01/18/2011 RV mild to moderate post pump goal CI>2.3 Hypoxemia 01/18/2011 01/20/2011 discharge planning 01/12/2011 02/02/2011 Overview: age 70, lives in [place], [place]. No DC needs. / Pre-op testing 01/12/2011 01/18/2011 Overview: Images from the original note were not included. [facility] Surgeon: Zenon Sanders M.D. Informed Consent Completed: No STS Score: 1.4% CAD: Yes - CAD on Problem List: Yes Is intended procedure a CABG: Yes - is a beta isamar ordered? Yes H & P completed: Yes PA/LAT: Completed CT: Completed MRI: N/A LE US: N/A Cath: Yes - reviewed: Yes Echo:Completed EKG: Completed EF %: 61 PI's: N/A Carotid: Completed Mapping: N/A Dental: Completed PFT's: N/A Basename 01/10/11 0729 WBC 7.18 HB 13.1 HCT 41.8 PLT 192 INR 1.0 CREAT 1.35 UA: Normal HCG:N/A ABO/ABO Confirmed: Yes Blood ordered: No SA Swab: Yes - results: Pending Last Dose of Anticoagulation: vitamins Op Note: N/A Pacemaker Check: N/A Consults: GI 01/10/2001 DM: No Cardiac Surgical prep: No SIGNATURE: Dede Mims RN CHECKED BY: DATE of SERVICE: 01/12/2011 TIME of SERVICE: 2:23 PM Anemia of chronic disease 11/19/20102018 Intestinal polyp 11/17/2010 10/03/2011 Overview: Distal ileum ulcerated polyp. 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) 04/22/2020 documented as of this encounter (statuses as of 01/18/2022) [facility]06-18[facility]2019 History of Past illness Narrative* Problem Noted Date Resolved Date Medicare annual wellness visit, subsequent 10/0202/18/2019 Encounter for long-term (current) use of medicat ions 09/07/2017 05/07/2021 Overview: Added automatically from request for surgery [id number] History of colonic polyps 09/07/20172021 Overview: Added automatically from request for surgery [id number] Gastroesophageal reflux disease 09/07/2017 05/07/2021 Overview: Added automatically from request for surgery [id number] Acute pulmonary edema 01/19/2011 01/20/2011 Overview: 01/19/2011 cardiogenic and noncardiogenic factors Atelectasis 01/19/2011 01/20/2011 Hypotension 01/18/2011 01/20/2011 Overview: 01/18/2011 goal map 65-80 Stress hyperglycemia 01/18/2011 01/20/2011 Overview: 01/18/2011 Perioperative insulin resistance and exacerbation of hyperglycemia. Control blood glucose with titration of insulin infusion 01/19/2011 adequate control goal FBG<180 Post-op pain 01/18/2011 01/20/2011 Mechanically assisted ventilation 01/18/2011 01/19/2011 Overview: 01/18/2011 optimize MV settings, WTE current setting:FiO2, 75%, peep 8 Cardiac insufficiency 01/18/2011 01/19/2011 Overview: 01/18/2011 RV mild to moderate post pump goal CI>2.3 Hypoxemia 01/18/2011 01/20/2011 discharge planning 01/12/2011 02/02/2011 Overview: age 70, lives in [place], [place]. No DC needs. / Pre-op testing 01/12/2011 01/18/2011 Overview: Images from the original note were not included. [facility] Surgeon: Zenon Sanders M.D. Informed Consent Completed: No STS Score: 1.4% CAD: Yes - CAD on Problem List: Yes Is intended procedure a CABG: Yes - is a beta isamar ordered? Yes H & P completed: Yes PA/LAT: Completed CT: Completed MRI: N/A LE US: N/A Cath: Yes - reviewed: Yes Echo:Completed EKG: Completed EF %: 61 PI's: N/A Carotid: Completed Mapping: N/A Dental: Completed PFT's: N/A Basename 01/10/11 0729 WBC 7.18 HB 13.1 HCT 41.8 PLT 192 INR 1.0 CREAT 1.35 UA: Normal HCG:N/A ABO/ABO Confirmed: Yes Blood ordered: No SA Swab: Yes - results: Pending Last Dose of Anticoagulation: vitamins Op Note: N/A Pacemaker Check: N/A Consults: GI 01/10/2001 DM: No Cardiac Surgical prep: No SIGNATURE: Dede Mims RN CHECKED BY: DATE of SERVICE: 01/12/2011 TIME of SERVICE: 2:23 PM Anemia of chronic disease 11/19/20102018 Intestinal polyp 11/17/2010 10/03/2011 Overview: Distal ileum ulcerated polyp. 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) 04/22/2020 documented as of this encounter (statuses as of 01/19/2022) [facility]06-18-2019 History of Past illness Narrative* Problem Noted Date Resolved Date Medicare annual wellness visit, subsequent 10/0202/18/2019 Encounter for long-term (current) use of medicat ions 09/07/2017 05/07/2021 Overview: Added automatically from request for surgery [id number] History of colonic polyps 09/07/20172021 Overview: Added automatically from request for surgery [id number] Gastroesophageal reflux disease 09/07/2017 05/07/2021 Overview: Added automatically from request for surgery [id number] Acute pulmonary edema 01/19/2011 01/20/2011 Overview: 01/19/2011 cardiogenic and noncardiogenic factors Atelectasis 01/19/2011 01/20/2011 Hypotension 01/18/2011 01/20/2011 Overview: 01/18/2011 goal map 65-80 Stress hyperglycemia 01/18/2011 01/20/2011 Overview: 01/18/2011 Perioperative insulin resistance and exacerbation of hyperglycemia. Control blood glucose with titration of insulin infusion 01/19/2011 adequate control goal FBG<180 Post-op pain 01/18/2011 01/20/2011 Mechanically assisted ventilation 01/18/2011 01/19/2011 Overview: 01/18/2011 optimize MV settings, WTE current setting:FiO2, 75%, peep 8 Cardiac insufficiency 01/18/2011 01/19/2011 Overview: 01/18/2011 RV mild to moderate post pump goal CI>2.3 Hypoxemia 01/18/2011 01/20/2011 discharge planning 01/12/2011 02/02/2011 Overview: age 70, lives in [place], [place]. No DC needs. / Pre-op testing 01/12/2011 01/18/2011 Overview: Images from the original note were not included. [facility] Surgeon: Zenon Sanders M.D. Informed Consent Completed: No STS Score: 1.4% CAD: Yes - CAD on Problem List: Yes Is intended procedure a CABG: Yes - is a beta isamar ordered? Yes H & P completed: Yes PA/LAT: Completed CT: Completed MRI: N/A LE US: N/A Cath: Yes - reviewed: Yes Echo:Completed EKG: Completed EF %: 61 PI's: N/A Carotid: Completed Mapping: N/A Dental: Completed PFT's: N/A Basename 01/10/11 0729 WBC 7.18 HB 13.1 HCT 41.8 PLT 192 INR 1.0 CREAT 1.35 UA: Normal HCG:N/A ABO/ABO Confirmed: Yes Blood ordered: No SA Swab: Yes - results: Pending Last Dose of Anticoagulation: vitamins Op Note: N/A Pacemaker Check: N/A Consults: GI 01/10/2001 DM: No Cardiac Surgical prep: No SIGNATURE: Dede Mims RN CHECKED BY: DATE of SERVICE: 01/12/2011 TIME of SERVICE: 2:23 PM Anemia of chronic disease 11/19/20102018 Intestinal polyp 11/17/2010 10/03/2011 Overview: Distal ileum ulcerated polyp. Nonspecific abnormal results of liver function s yamiledy 04/04/2006 03/25/2011 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04/2014 Obesity, Class III, BMI 40-49.9 (morbid obesity) 04/22/2020 documented as of this encounter (statuses as of 01/21/2022) [facility]2019 History of Past illness Narrative* Problem Noted Date Resolved Date Medicare annual wellness visit, subsequent 10/0202/18/2019 Encounter for long-term (current) use of medicat ions 09/07/2017 05/07/2021 Overview: Added automatically from request for surgery [id number] History of colonic polyps 09/07/20172021 Overview: Added automatically from request for surgery [id number] Gastroesophageal reflux disease 09/07/2017 05/07/2021 Overview: Added automatically from request for surgery [id number] Acute pulmonary edema 01/19/2011 01/20/2011 Overview: 01/19/2011 cardiogenic and noncardiogenic factors Atelectasis 01/19/2011 01/20/2011 Hypotension 01/18/2011 01/20/2011 Overview: 01/18/2011 goal map 65-80 Stress hyperglycemia 01/18/2011 01/20/2011 Overview: 01/18/2011 Perioperative insulin resistance and exacerbation of hyperglycemia. Control blood glucose with titration of insulin infusion 01/19/2011 adequate control goal FBG<180 Post-op pain 01/18/2011 01/20/2011 Mechanically assisted ventilation 01/18/2011 01/19/2011 Overview: 01/18/2011 optimize MV settings, WTE current setting:FiO2, 75%, peep 8 Cardiac insufficiency 01/18/2011 01/19/2011 Overview: 01/18/2011 RV mild to moderate post pump goal CI>2.3 Hypoxemia 01/18/2011 01/20/2011 discharge planning 01/12/2011 02/02/2011 Overview: age 70, lives in [place], [place]. No DC needs. / Pre-op testing 01/12/2011 01/18/2011 Overview: Images from the original note were not included. [facility] Surgeon: Zenon Sanders M.D. Informed Consent Completed: No STS Score: 1.4% CAD: Yes - CAD on Problem List: Yes Is intended procedure a CABG: Yes - is a beta isamar ordered? Yes H & P completed: Yes PA/LAT: Completed CT: Completed MRI: N/A LE US: N/A Cath: Yes - reviewed: Yes Echo:Completed EKG: Completed EF %: 61 PI's: N/A Carotid: Completed Mapping: N/A Dental: Completed PFT's: N/A Basename 01/10/11 0729 WBC 7.18 HB 13.1 HCT 41.8 PLT 192 INR 1.0 CREAT 1.35 UA: Normal HCG:N/A ABO/ABO Confirmed: Yes Blood ordered: No SA Swab: Yes - results: Pending Last Dose of Anticoagulation: vitamins Op Note: N/A Pacemaker Check: N/A Consults: GI 01/10/2001 DM: No Cardiac Surgical prep: No SIGNATURE: Dede Mims RN CHECKED BY: DATE of SERVICE: 01/12/2011 TIME of SERVICE: 2:23 PM Anemia of chronic disease 11/19/20102018 Intestinal polyp 11/17/2010 10/03/2011 Overview: Distal ileum ulcerated polyp. 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) 04/22/2020 documented as of this encounter (statuses as of 01/24/2022) [facility]2019 History of Past illness Narrative* Problem Noted Date Resolved Date Medicare annual wellness visit, subsequent 10/0202/18/2019 Encounter for long-term (current) use of medicat ions 09/07/2017 05/07/2021 Overview: Added automatically from request for surgery [id number] History of colonic polyps 09/07/20172021 Overview: Added automatically from request for surgery [id number] Gastroesophageal reflux disease 09/07/2017 05/07/2021 Overview: Added automatically from request for surgery [id number] Acute pulmonary edema 01/19/2011 01/20/2011 Overview: 01/19/2011 cardiogenic and noncardiogenic factors Atelectasis 01/19/2011 01/20/2011 Hypotension 01/18/2011 01/20/2011 Overview: 01/18/2011 goal map 65-80 Stress hyperglycemia 01/18/2011 01/20/2011 Overview: 01/18/2011 Perioperative insulin resistance and exacerbation of hyperglycemia. Control blood glucose with titration of insulin infusion 01/19/2011 adequate control goal FBG<180 Post-op pain 01/18/2011 01/20/2011 Mechanically assisted ventilation 01/18/2011 01/19/2011 Overview: 01/18/2011 optimize MV settings, WTE current setting:FiO2, 75%, peep 8 Cardiac insufficiency 01/18/2011 01/19/2011 Overview: 01/18/2011 RV mild to moderate post pump goal CI>2.3 Hypoxemia 01/18/2011 01/20/2011 discharge planning 01/12/2011 02/02/2011 Overview: age 70, lives in [place], [place]. No DC needs. / Pre-op testing 01/12/2011 01/18/2011 Overview: Images from the original note were not included. [facility] Surgeon: Zenon Sanders M.D. Informed Consent Completed: No STS Score: 1.4% CAD: Yes - CAD on Problem List: Yes Is intended procedure a CABG: Yes - is a beta isamar ordered? Yes H & P completed: Yes PA/LAT: Completed CT: Completed MRI: N/A LE US: N/A Cath: Yes - reviewed: Yes Echo:Completed EKG: Completed EF %: 61 PI's: N/A Carotid: Completed Mapping: N/A Dental: Completed PFT's: N/A Basename 01/10/11 0729 WBC 7.18 HB 13.1 HCT 41.8 PLT 192 INR 1.0 CREAT 1.35 UA: Normal HCG:N/A ABO/ABO Confirmed: Yes Blood ordered: No SA Swab: Yes - results: Pending Last Dose of Anticoagulation: vitamins Op Note: N/A Pacemaker Check: N/A Consults: GI 01/10/2001 DM: No Cardiac Surgical prep: No SIGNATURE: Dede Mims RN CHECKED BY: DATE of SERVICE: 01/12/2011 TIME of SERVICE: 2:23 PM Anemia of chronic disease 11/19/20102018 Intestinal polyp 11/17/2010 10/03/2011 Overview: Distal ileum ulcerated polyp. Nonspecific abnormal results of liver function s tudy 04/04/2006 03/25/2011 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/04/2014 Obesity, Class III, BMI 40-49.9 (morbid obesity) 04/22/2020 documented as of this encounter (statuses as of 01/24/2022) [facility] History of Past illness Narrative* Problem Noted Date Resolved Date Medicare annual wellness visit, subsequent 10/0202/18/2019 Encounter for long-term (current) use of medicat ions 09/07/2017 05/07/2021 Overview: Added automatically from request for surgery [id number] History of colonic polyps 09/07/20172021 Overview: Added automatically from request for surgery [id number] Gastroesophageal reflux disease 09/07/2017 05/07/2021 Overview: Added automatically from request for surgery [id number] Acute pulmonary edema 01/19/2011 01/20/2011 Overview: 01/19/2011 cardiogenic and noncardiogenic factors Atelectasis 01/19/2011 01/20/2011 Hypotension 01/18/2011 01/20/2011 Overview: 01/18/2011 goal map 65-80 Stress hyperglycemia 01/18/2011 01/20/2011 Overview: 01/18/2011 Perioperative insulin resistance and exacerbation of hyperglycemia. Control blood glucose with titration of insulin infusion 01/19/2011 adequate control goal FBG<180 Post-op pain 01/18/2011 01/20/2011 Mechanically assisted ventilation 01/18/2011 01/19/2011 Overview: 01/18/2011 optimize MV settings, WTE current setting:FiO2, 75%, peep 8 Cardiac insufficiency 01/18/2011 01/19/2011 Overview: 01/18/2011 RV mild to moderate post pump goal CI>2.3 Hypoxemia 01/18/2011 01/20/2011 discharge planning 01/12/2011 02/02/2011 Overview: age 70, lives in [place], [place]. No DC needs. / Pre-op testing 01/12/2011 01/18/2011 Overview: Images from the original note were not included. [facility] Surgeon: Zenon Sanders M.D. Informed Consent Completed: No STS Score: 1.4% CAD: Yes - CAD on Problem List: Yes Is intended procedure a CABG: Yes - is a beta isamar ordered? Yes H & P completed: Yes PA/LAT: Completed CT: Completed MRI: N/A LE US: N/A Cath: Yes - reviewed: Yes Echo:Completed EKG: Completed EF %: 61 PI's: N/A Carotid: Completed Mapping: N/A Dental: Completed PFT's: N/A Basename 01/10/11 0729 WBC 7.18 HB 13.1 HCT 41.8 PLT 192 INR 1.0 CREAT 1.35 UA: Normal HCG:N/A ABO/ABO Confirmed: Yes Blood ordered: No SA Swab: Yes - results: Pending Last Dose of Anticoagulation: vitamins Op Note: N/A Pacemaker Check: N/A Consults: GI 01/10/2001 DM: No Cardiac Surgical prep: No SIGNATURE: Dede Mims RN CHECKED BY: DATE of SERVICE: 01/12/2011 TIME of SERVICE: 2:23 PM Anemia of chronic disease 11/19/20102018 Intestinal polyp 11/17/2010 10/03/2011 Overview: Distal ileum ulcerated polyp. Nonspecific abnormal results of liver function s yamiledy 04/04/2006 03/25/2011 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 09/0 04/2014 Obesity, Class III, BMI 40-49.9 (morbid obesity) 04/22/2020 documented as of this encounter (statuses as of 01/26/2022) [facility] History of Past illness Narrative* Problem Noted Date Resolved Date Medicare annual wellness visit, subsequent 10/0202/18/2019 Encounter for long-term (current) use of medicat ions 09/07/2017 05/07/2021 Overview: Added automatically from request for surgery [id number] History of colonic polyps 09/07/20172021 Overview: Added automatically from request for surgery [id number] Gastroesophageal reflux disease 09/07/2017 05/07/2021 Overview: Added automatically from request for surgery [id number] Acute pulmonary edema 01/19/2011 01/20/2011 Overview: 01/19/2011 cardiogenic and noncardiogenic factors Atelectasis 01/19/2011 01/20/2011 Hypotension 01/18/2011 01/20/2011 Overview: 01/18/2011 goal map 65-80 Stress hyperglycemia 01/18/2011 01/20/2011 Overview: 01/18/2011 Perioperative insulin resistance and exacerbation of hyperglycemia. Control blood glucose with titration of insulin infusion 01/19/2011 adequate control goal FBG<180 Post-op pain 01/18/2011 01/20/2011 Mechanically assisted ventilation 01/18/2011 01/19/2011 Overview: 01/18/2011 optimize MV settings, WTE current setting:FiO2, 75%, peep 8 Cardiac insufficiency 01/18/2011 01/19/2011 Overview: 01/18/2011 RV mild to moderate post pump goal CI>2.3 Hypoxemia 01/18/2011 01/20/2011 discharge planning 01/12/2011 02/02/2011 Overview: age 70, lives in [place], [place]. No DC needs. / Pre-op testing 01/12/2011 01/18/2011 Overview: Images from the original note were not included. [facility] Surgeon: Zenon Sanders M.D. Informed Consent Completed: No STS Score: 1.4% CAD: Yes - CAD on Problem List: Yes Is intended procedure a CABG: Yes - is a beta isamar ordered? Yes H & P completed: Yes PA/LAT: Completed CT: Completed MRI: N/A LE US: N/A Cath: Yes - reviewed: Yes Echo:Completed EKG: Completed EF %: 61 PI's: N/A Carotid: Completed Mapping: N/A Dental: Completed PFT's: N/A Basename 01/10/11 0729 WBC 7.18 HB 13.1 HCT 41.8 PLT 192 INR 1.0 CREAT 1.35 UA: Normal HCG:N/A ABO/ABO Confirmed: Yes Blood ordered: No SA Swab: Yes - results: Pending Last Dose of Anticoagulation: vitamins Op Note: N/A Pacemaker Check: N/A Consults: GI 01/10/2001 DM: No Cardiac Surgical prep: No SIGNATURE: Dede Mims RN CHECKED BY: DATE of SERVICE: 01/12/2011 TIME of SERVICE: 2:23 PM Anemia of chronic disease 11/19/20102018 Intestinal polyp 11/17/2010 10/03/2011 Overview: Distal ileum ulcerated polyp. Nonspecific abnormal results of liver function s yamiledy 04/04/2006 03/25/2011 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04/2014 Obesity, Class III, BMI 40-49.9 (morbid obesity) 04/22/2020 documented as of this encounter (statuses as of 01/31/2022) [facility]06-18-2019 History of Past illness Narrative* Problem Noted Date Resolved Date Medicare annual wellness visit, subsequent 10/0202/18/2019 Encounter for long-term (current) use of medicat ions 09/07/2017 05/07/2021 Overview: Added automatically from request for surgery [id number] History of colonic polyps 09/07/20172021 Overview: Added automatically from request for surgery [id number] Gastroesophageal reflux disease 09/07/2017 05/07/2021 Overview: Added automatically from request for surgery [id number] Acute pulmonary edema 01/19/2011 01/20/2011 Overview: 01/19/2011 cardiogenic and noncardiogenic factors Atelectasis 01/19/2011 01/20/2011 Hypotension 01/18/2011 01/20/2011 Overview: 01/18/2011 goal map 65-80 Stress hyperglycemia 01/18/2011 01/20/2011 Overview: 01/18/2011 Perioperative insulin resistance and exacerbation of hyperglycemia. Control blood glucose with titration of insulin infusion 01/19/2011 adequate control goal FBG<180 Post-op pain 01/18/2011 01/20/2011 Mechanically assisted ventilation 01/18/2011 01/19/2011 Overview: 01/18/2011 optimize MV settings, WTE current setting:FiO2, 75%, peep 8 Cardiac insufficiency 01/18/2011 01/19/2011 Overview: 01/18/2011 RV mild to moderate post pump goal CI>2.3 Hypoxemia 01/18/2011 01/20/2011 discharge planning 01/12/2011 02/02/2011 Overview: age 70, lives in [place], [place]. No DC needs. / Pre-op testing 01/12/2011 01/18/2011 Overview: Images from the original note were not included. [facility] Surgeon: Zenon Sanders M.D. Informed Consent Completed: No STS Score: 1.4% CAD: Yes - CAD on Problem List: Yes Is intended procedure a CABG: Yes - is a beta isamar ordered? Yes H & P completed: Yes PA/LAT: Completed CT: Completed MRI: N/A LE US: N/A Cath: Yes - reviewed: Yes Echo:Completed EKG: Completed EF %: 61 PI's: N/A Carotid: Completed Mapping: N/A Dental: Completed PFT's: N/A Basename 01/10/11 0729 WBC 7.18 HB 13.1 HCT 41.8 PLT 192 INR 1.0 CREAT 1.35 UA: Normal HCG:N/A ABO/ABO Confirmed: Yes Blood ordered: No SA Swab: Yes - results: Pending Last Dose of Anticoagulation: vitamins Op Note: N/A Pacemaker Check: N/A Consults: GI 01/10/2001 DM: No Cardiac Surgical prep: No SIGNATURE: Dede Mims RN CHECKED BY: DATE of SERVICE: 01/12/2011 TIME of SERVICE: 2:23 PM Anemia of chronic disease 11/19/20102018 Intestinal polyp 11/17/2010 10/03/2011 Overview: Distal ileum ulcerated polyp. 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) 04/22/2020 documented as of this encounter (statuses as of 02/17/2022) [facility]06-18-2019 History of Past illness Narrative* Problem Noted Date Resolved Date Medicare annual wellness visit, subsequent 10/0202/18/2019 Encounter for long-term (current) use of medicat ions 09/07/2017 05/07/2021 Overview: Added automatically from request for surgery [id number] History of colonic polyps 09/07/20172021 Overview: Added automatically from request for surgery [id number] Gastroesophageal reflux disease 09/07/2017 05/07/2021 Overview: Added automatically from request for surgery [id number] Acute pulmonary edema 01/19/2011 01/20/2011 Overview: 01/19/2011 cardiogenic and noncardiogenic factors Atelectasis 01/19/2011 01/20/2011 Hypotension 01/18/2011 01/20/2011 Overview: 01/18/2011 goal map 65-80 Stress hyperglycemia 01/18/2011 01/20/2011 Overview: 01/18/2011 Perioperative insulin resistance and exacerbation of hyperglycemia. Control blood glucose with titration of insulin infusion 01/19/2011 adequate control goal FBG<180 Post-op pain 01/18/2011 01/20/2011 Mechanically assisted ventilation 01/18/2011 01/19/2011 Overview: 01/18/2011 optimize MV settings, WTE current setting:FiO2, 75%, peep 8 Cardiac insufficiency 01/18/2011 01/19/2011 Overview: 01/18/2011 RV mild to moderate post pump goal CI>2.3 Hypoxemia 01/18/2011 01/20/2011 discharge planning 01/12/2011 02/02/2011 Overview: age 70, lives in [place], [place]. No DC needs. / Pre-op testing 01/12/2011 01/18/2011 Overview: Images from the original note were not included. [facility] Surgeon: Zenon Sanders M.D. Informed Consent Completed: No STS Score: 1.4% CAD: Yes - CAD on Problem List: Yes Is intended procedure a CABG: Yes - is a beta isamar ordered? Yes H & P completed: Yes PA/LAT: Completed CT: Completed MRI: N/A LE US: N/A Cath: Yes - reviewed: Yes Echo:Completed EKG: Completed EF %: 61 PI's: N/A Carotid: Completed Mapping: N/A Dental: Completed PFT's: N/A Basename 01/10/11 0729 WBC 7.18 HB 13.1 HCT 41.8 PLT 192 INR 1.0 CREAT 1.35 UA: Normal HCG:N/A ABO/ABO Confirmed: Yes Blood ordered: No SA Swab: Yes - results: Pending Last Dose of Anticoagulation: vitamins Op Note: N/A Pacemaker Check: N/A Consults: GI 01/10/2001 DM: No Cardiac Surgical prep: No SIGNATURE: Dede Mims RN CHECKED BY: DATE of SERVICE: 01/12/2011 TIME of SERVICE: 2:23 PM Anemia of chronic disease 11/19/20102018 Intestinal polyp 11/17/2010 10/03/2011 Overview: Distal ileum ulcerated polyp. 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) 04/22/2020 documented as of this encounter (statuses as of 02/21/2022) [facility]06-18-2019 History of Past illness Narrative* Problem Noted Date Resolved Date Medicare annual wellness visit, subsequent 10/0202/18/2019 Encounter for long-term (current) use of medicat ions 09/07/2017 05/07/2021 Overview: Added automatically from request for surgery [id number] History of colonic polyps 09/07/20172021 Overview: Added automatically from request for surgery [id number] Gastroesophageal reflux disease 09/07/2017 05/07/2021 Overview: Added automatically from request for surgery [id number] Acute pulmonary edema 01/19/2011 01/20/2011 Overview: 01/19/2011 cardiogenic and noncardiogenic factors Atelectasis 01/19/2011 01/20/2011 Hypotension 01/18/2011 01/20/2011 Overview: 01/18/2011 goal map 65-80 Stress hyperglycemia 01/18/2011 01/20/2011 Overview: 01/18/2011 Perioperative insulin resistance and exacerbation of hyperglycemia. Control blood glucose with titration of insulin infusion 01/19/2011 adequate control goal FBG<180 Post-op pain 01/18/2011 01/20/2011 Mechanically assisted ventilation 01/18/2011 01/19/2011 Overview: 01/18/2011 optimize MV settings, WTE current setting:FiO2, 75%, peep 8 Cardiac insufficiency 01/18/2011 01/19/2011 Overview: 01/18/2011 RV mild to moderate post pump goal CI>2.3 Hypoxemia 01/18/2011 01/20/2011 discharge planning 01/12/2011 02/02/2011 Overview: age 70, lives in [place], [place]. No DC needs. / Pre-op testing 01/12/2011 01/18/2011 Overview: Images from the original note were not included. [facility] Surgeon: Zneon Sanders M.D. Informed Consent Completed: No STS Score: 1.4% CAD: Yes - CAD on Problem List: Yes Is intended procedure a CABG: Yes - is a beta isamar ordered? Yes H & P completed: Yes PA/LAT: Completed CT: Completed MRI: N/A LE US: N/A Cath: Yes - reviewed: Yes Echo:Completed EKG: Completed EF %: 61 PI's: N/A Carotid: Completed Mapping: N/A Dental: Completed PFT's: N/A Basename 01/10/11 0729 WBC 7.18 HB 13.1 HCT 41.8 PLT 192 INR 1.0 CREAT 1.35 UA: Normal HCG:N/A ABO/ABO Confirmed: Yes Blood ordered: No SA Swab: Yes - results: Pending Last Dose of Anticoagulation: vitamins Op Note: N/A Pacemaker Check: N/A Consults: GI 01/10/2001 DM: No Cardiac Surgical prep: No SIGNATURE: Dede Mims RN CHECKED BY: DATE of SERVICE: 01/12/2011 TIME of SERVICE: 2:23 PM Anemia of chronic disease 11/19/20102018 Intestinal polyp 11/17/2010 10/03/2011 Overview: Distal ileum ulcerated polyp. 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) 04/22/2020 documented as of this encounter (statuses as of 03/04/2022) [facility]06-18-2019 History of Past illness Narrative* Problem Noted Date Resolved Date Medicare annual wellness visit, subsequent 10/0202/18/2019 Encounter for long-term (current) use of medicat ions 09/07/2017 05/07/2021 Overview: Added automatically from request for surgery [id number] History of colonic polyps 09/07/20172021 Overview: Added automatically from request for surgery [id number] Gastroesophageal reflux disease 09/07/2017 05/07/2021 Overview: Added automatically from request for surgery [id number] Acute pulmonary edema 01/19/2011 01/20/2011 Overview: 01/19/2011 cardiogenic and noncardiogenic factors Atelectasis 01/19/2011 01/20/2011 Hypotension 01/18/2011 01/20/2011 Overview: 01/18/2011 goal map 65-80 Stress hyperglycemia 01/18/2011 01/20/2011 Overview: 01/18/2011 Perioperative insulin resistance and exacerbation of hyperglycemia. Control blood glucose with titration of insulin infusion 01/19/2011 adequate control goal FBG<180 Post-op pain 01/18/2011 01/20/2011 Mechanically assisted ventilation 01/18/2011 01/19/2011 Overview: 01/18/2011 optimize MV settings, WTE current setting:FiO2, 75%, peep 8 Cardiac insufficiency 01/18/2011 01/19/2011 Overview: 01/18/2011 RV mild to moderate post pump goal CI>2.3 Hypoxemia 01/18/2011 01/20/2011 discharge planning 01/12/2011 02/02/2011 Overview: age 70, lives in [place], [place]. No DC needs. / Pre-op testing 01/12/2011 01/18/2011 Overview: Images from the original note were not included. [facility] Surgeon: Zenon R. Marilyn, M.D. Informed Consent Completed: No STS Score: 1.4% CAD: Yes - CAD on Problem List: Yes Is intended procedure a CABG: Yes - is a beta isamar ordered? Yes H & P completed: Yes PA/LAT: Completed CT: Completed MRI: N/A LE US: N/A Cath: Yes - reviewed: Yes Echo:Completed EKG: Completed EF %: 61 PI's: N/A Carotid: Completed Mapping: N/A Dental: Completed PFT's: N/A Basename 01/10/11 0729 WBC 7.18 HB 13.1 HCT 41.8 PLT 192 INR 1.0 CREAT 1.35 UA: Normal HCG:N/A ABO/ABO Confirmed: Yes Blood ordered: No SA Swab: Yes - results: Pending Last Dose of Anticoagulation: vitamins Op Note: N/A Pacemaker Check: N/A Consults: GI 01/10/2001 DM: No Cardiac Surgical prep: No SIGNATURE: Dede Mims RN CHECKED BY: DATE of SERVICE: 01/12/2011 TIME of SERVICE: 2:23 PM Anemia of chronic disease 11/19/20102018 Intestinal polyp 11/17/2010 10/03/2011 Overview: Distal ileum ulcerated polyp. 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) 04/22/2020 documented as of this encounter (statuses as of 03/07/2022) [facility]06-18-2019 History of Past illness Narrative* Problem Noted Date Resolved Date Medicare annual wellness visit, subsequent 10/0202/18/2019 Encounter for long-term (current) use of medicat ions 09/07/2017 05/07/2021 Overview: Added automatically from request for surgery [id number] History of colonic polyps 09/07/20172021 Overview: Added automatically from request for surgery [id number] Gastroesophageal reflux disease 09/07/2017 05/07/2021 Overview: Added automatically from request for surgery [id number] Acute pulmonary edema 01/19/2011 01/20/2011 Overview: 01/19/2011 cardiogenic and noncardiogenic factors Atelectasis 01/19/2011 01/20/2011 Hypotension 01/18/2011 01/20/2011 Overview: 01/18/2011 goal map 65-80 Stress hyperglycemia 01/18/2011 01/20/2011 Overview: 01/18/2011 Perioperative insulin resistance and exacerbation of hyperglycemia. Control blood glucose with titration of insulin infusion 01/19/2011 adequate control goal FBG<180 Post-op pain 01/18/2011 01/20/2011 Mechanically assisted ventilation 01/18/2011 01/19/2011 Overview: 01/18/2011 optimize MV settings, WTE current setting:FiO2, 75%, peep 8 Cardiac insufficiency 01/18/2011 01/19/2011 Overview: 01/18/2011 RV mild to moderate post pump goal CI>2.3 Hypoxemia 01/18/2011 01/20/2011 discharge planning 01/12/2011 02/02/2011 Overview: age 70, lives in [place], [place]. No DC needs. / Pre-op testing 01/12/2011 01/18/2011 Overview: Images from the original note were not included. [facility] Surgeon: Zenon Sanders M.D. Informed Consent Completed: No STS Score: 1.4% CAD: Yes - CAD on Problem List: Yes Is intended procedure a CABG: Yes - is a beta isamar ordered? Yes H & P completed: Yes PA/LAT: Completed CT: Completed MRI: N/A LE US: N/A Cath: Yes - reviewed: Yes Echo:Completed EKG: Completed EF %: 61 PI's: N/A Carotid: Completed Mapping: N/A Dental: Completed PFT's: N/A Basename 01/10/11 0729 WBC 7.18 HB 13.1 HCT 41.8 PLT 192 INR 1.0 CREAT 1.35 UA: Normal HCG:N/A ABO/ABO Confirmed: Yes Blood ordered: No SA Swab: Yes - results: Pending Last Dose of Anticoagulation: vitamins Op Note: N/A Pacemaker Check: N/A Consults: GI 01/10/2001 DM: No Cardiac Surgical prep: No SIGNATURE: Dede Mims RN CHECKED BY: DATE of SERVICE: 01/12/2011 TIME of SERVICE: 2:23 PM Anemia of chronic disease 11/19/20102018 Intestinal polyp 11/17/2010 10/03/2011 Overview: Distal ileum ulcerated polyp. 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) 04/22/2020 documented as of this encounter (statuses as of 03/22/2022) [facility]06-18-2019 History of Past illness Narrative* Problem Noted Date Resolved Date Medicare annual wellness visit, subsequent 10/0202/18/2019 Encounter for long-term (current) use of medicat ions 09/07/2017 05/07/2021 Overview: Added automatically from request for surgery [id number] History of colonic polyps 09/07/20172021 Overview: Added automatically from request for surgery [id number] Gastroesophageal reflux disease 09/07/2017 05/07/2021 Overview: Added automatically from request for surgery [id number] Acute pulmonary edema 01/19/2011 01/20/2011 Overview: 01/19/2011 cardiogenic and noncardiogenic factors Atelectasis 01/19/2011 01/20/2011 Hypotension 01/18/2011 01/20/2011 Overview: 01/18/2011 goal map 65-80 Stress hyperglycemia 01/18/2011 01/20/2011 Overview: 01/18/2011 Perioperative insulin resistance and exacerbation of hyperglycemia. Control blood glucose with titration of insulin infusion 01/19/2011 adequate control goal FBG<180 Post-op pain 01/18/2011 01/20/2011 Mechanically assisted ventilation 01/18/2011 01/19/2011 Overview: 01/18/2011 optimize MV settings, WTE current setting:FiO2, 75%, peep 8 Cardiac insufficiency 01/18/2011 01/19/2011 Overview: 01/18/2011 RV mild to moderate post pump goal CI>2.3 Hypoxemia 01/18/2011 01/20/2011 discharge planning 01/12/2011 02/02/2011 Overview: age 70, lives in [place], [place]. No DC needs. / Pre-op testing 01/12/2011 01/18/2011 Overview: Images from the original note were not included. [facility] Surgeon: Zenon Sanders M.D. Informed Consent Completed: No STS Score: 1.4% CAD: Yes - CAD on Problem List: Yes Is intended procedure a CABG: Yes - is a beta isamar ordered? Yes H & P completed: Yes PA/LAT: Completed CT: Completed MRI: N/A LE US: N/A Cath: Yes - reviewed: Yes Echo:Completed EKG: Completed EF %: 61 PI's: N/A Carotid: Completed Mapping: N/A Dental: Completed PFT's: N/A Basename 01/10/11 0729 WBC 7.18 HB 13.1 HCT 41.8 PLT 192 INR 1.0 CREAT 1.35 UA: Normal HCG:N/A ABO/ABO Confirmed: Yes Blood ordered: No SA Swab: Yes - results: Pending Last Dose of Anticoagulation: vitamins Op Note: N/A Pacemaker Check: N/A Consults: GI 01/10/2001 DM: No Cardiac Surgical prep: No SIGNATURE: Dede Mims RN CHECKED BY: DATE of SERVICE: 01/12/2011 TIME of SERVICE: 2:23 PM Anemia of chronic disease 11/19/20102018 Intestinal polyp 11/17/2010 10/03/2011 Overview: Distal ileum ulcerated polyp. 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) 04/22/2020 documented as of this encounter (statuses as of 04/23/2022) [facility]2019 History of Past illness Narrative* Problem Noted Date Resolved Date Medicare annual wellness visit, subsequent 10/0202/18/2019 Encounter for long-term (current) use of medicat ions 09/07/2017 05/07/2021 Overview: Added automatically from request for surgery [id number] History of colonic polyps 09/07/20172021 Overview: Added automatically from request for surgery [id number] Gastroesophageal reflux disease 09/07/2017 05/07/2021 Overview: Added automatically from request for surgery [id number] Acute pulmonary edema 01/19/2011 01/20/2011 Overview: 01/19/2011 cardiogenic and noncardiogenic factors Atelectasis 01/19/2011 01/20/2011 Hypotension 01/18/2011 01/20/2011 Overview: 01/18/2011 goal map 65-80 Stress hyperglycemia 01/18/2011 01/20/2011 Overview: 01/18/2011 Perioperative insulin resistance and exacerbation of hyperglycemia. Control blood glucose with titration of insulin infusion 01/19/2011 adequate control goal FBG<180 Post-op pain 01/18/2011 01/20/2011 Mechanically assisted ventilation 01/18/2011 01/19/2011 Overview: 01/18/2011 optimize MV settings, WTE current setting:FiO2, 75%, peep 8 Cardiac insufficiency 01/18/2011 01/19/2011 Overview: 01/18/2011 RV mild to moderate post pump goal CI>2.3 Hypoxemia 01/18/2011 01/20/2011 discharge planning 01/12/2011 02/02/2011 Overview: age 70, lives in [place], [place]. No DC needs. / Pre-op testing 01/12/2011 01/18/2011 Overview: Images from the original note were not included. [facility] Surgeon: Zenon Sanders M.D. Informed Consent Completed: No STS Score: 1.4% CAD: Yes - CAD on Problem List: Yes Is intended procedure a CABG: Yes - is a beta isamar ordered? Yes H & P completed: Yes PA/LAT: Completed CT: Completed MRI: N/A LE US: N/A Cath: Yes - reviewed: Yes Echo:Completed EKG: Completed EF %: 61 PI's: N/A Carotid: Completed Mapping: N/A Dental: Completed PFT's: N/A Basename 01/10/11 0729 WBC 7.18 HB 13.1 HCT 41.8 PLT 192 INR 1.0 CREAT 1.35 UA: Normal HCG:N/A ABO/ABO Confirmed: Yes Blood ordered: No SA Swab: Yes - results: Pending Last Dose of Anticoagulation: vitamins Op Note: N/A Pacemaker Check: N/A Consults: GI 01/10/2001 DM: No Cardiac Surgical prep: No SIGNATURE: Dede Mims RN CHECKED BY: DATE of SERVICE: 01/12/2011 TIME of SERVICE: 2:23 PM Anemia of chronic disease 11/19/20102018 Intestinal polyp 11/17/2010 10/03/2011 Overview: Distal ileum ulcerated polyp. 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) 04/22/2020 documented as of this encounter (statuses as of 05/03/2022) [facility]2019 History of Past illness Narrative* Problem Noted Date Resolved Date Medicare annual wellness visit, subsequent 10/0202/18/2019 Encounter for long-term (current) use of medicat ions 09/07/2017 05/07/2021 Overview: Added automatically from request for surgery [id number] History of colonic polyps 09/07/20172021 Overview: Added automatically from request for surgery [id number] Gastroesophageal reflux disease 09/07/2017 05/07/2021 Overview: Added automatically from request for surgery [id number] Acute pulmonary edema 01/19/2011 01/20/2011 Overview: 01/19/2011 cardiogenic and noncardiogenic factors Atelectasis 01/19/2011 01/20/2011 Hypotension 01/18/2011 01/20/2011 Overview: 01/18/2011 goal map 65-80 Stress hyperglycemia 01/18/2011 01/20/2011 Overview: 01/18/2011 Perioperative insulin resistance and exacerbation of hyperglycemia. Control blood glucose with titration of insulin infusion 01/19/2011 adequate control goal FBG<180 Post-op pain 01/18/2011 01/20/2011 Mechanically assisted ventilation 01/18/2011 01/19/2011 Overview: 01/18/2011 optimize MV settings, WTE current setting:FiO2, 75%, peep 8 Cardiac insufficiency 01/18/2011 01/19/2011 Overview: 01/18/2011 RV mild to moderate post pump goal CI>2.3 Hypoxemia 01/18/2011 01/20/2011 discharge planning 01/12/2011 02/02/2011 Overview: age 70, lives in [place], [place]. No DC needs. / Pre-op testing 01/12/2011 01/18/2011 Overview: Images from the original note were not included. [facility] Surgeon: Zenon Sanders M.D. Informed Consent Completed: No STS Score: 1.4% CAD: Yes - CAD on Problem List: Yes Is intended procedure a CABG: Yes - is a beta isamar ordered? Yes H & P completed: Yes PA/LAT: Completed CT: Completed MRI: N/A LE US: N/A Cath: Yes - reviewed: Yes Echo:Completed EKG: Completed EF %: 61 PI's: N/A Carotid: Completed Mapping: N/A Dental: Completed PFT's: N/A Basename 01/10/11 0729 WBC 7.18 HB 13.1 HCT 41.8 PLT 192 INR 1.0 CREAT 1.35 UA: Normal HCG:N/A ABO/ABO Confirmed: Yes Blood ordered: No SA Swab: Yes - results: Pending Last Dose of Anticoagulation: vitamins Op Note: N/A Pacemaker Check: N/A Consults: GI 01/10/2001 DM: No Cardiac Surgical prep: No SIGNATURE: Dede Mims RN CHECKED BY: DATE of SERVICE: 01/12/2011 TIME of SERVICE: 2:23 PM Anemia of chronic disease 11/19/20102018 Intestinal polyp 11/17/2010 10/03/2011 Overview: Distal ileum ulcerated polyp. 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) 04/22/2020 documented as of this encounter (statuses as of 05/05/2022) [facility] History of Past illness Narrative* Problem Noted Date Resolved Date Medicare annual wellness visit, subsequent 10/0202/18/2019 Encounter for long-term (current) use of medicat ions 09/07/2017 05/07/2021 Overview: Added automatically from request for surgery [id number] History of colonic polyps 09/07/20172021 Overview: Added automatically from request for surgery [id number] Gastroesophageal reflux disease 09/07/2017 05/07/2021 Overview: Added automatically from request for surgery [id number] Acute pulmonary edema 01/19/2011 01/20/2011 Overview: 01/19/2011 cardiogenic and noncardiogenic factors Atelectasis 01/19/2011 01/20/2011 Hypotension 01/18/2011 01/20/2011 Overview: 01/18/2011 goal map 65-80 Stress hyperglycemia 01/18/2011 01/20/2011 Overview: 01/18/2011 Perioperative insulin resistance and exacerbation of hyperglycemia. Control blood glucose with titration of insulin infusion 01/19/2011 adequate control goal FBG<180 Post-op pain 01/18/2011 01/20/2011 Mechanically assisted ventilation 01/18/2011 01/19/2011 Overview: 01/18/2011 optimize MV settings, WTE current setting:FiO2, 75%, peep 8 Cardiac insufficiency 01/18/2011 01/19/2011 Overview: 01/18/2011 RV mild to moderate post pump goal CI>2.3 Hypoxemia 01/18/2011 01/20/2011 discharge planning 01/12/2011 02/02/2011 Overview: age 70, lives in [place], [place]. No DC needs. / Pre-op testing 01/12/2011 01/18/2011 Overview: Images from the original note were not included. [facility] Surgeon: Zenon Sanders M.D. Informed Consent Completed: No STS Score: 1.4% CAD: Yes - CAD on Problem List: Yes Is intended procedure a CABG: Yes - is a beta isamar ordered? Yes H & P completed: Yes PA/LAT: Completed CT: Completed MRI: N/A LE US: N/A Cath: Yes - reviewed: Yes Echo:Completed EKG: Completed EF %: 61 PI's: N/A Carotid: Completed Mapping: N/A Dental: Completed PFT's: N/A Basename 01/10/11 0729 WBC 7.18 HB 13.1 HCT 41.8 PLT 192 INR 1.0 CREAT 1.35 UA: Normal HCG:N/A ABO/ABO Confirmed: Yes Blood ordered: No SA Swab: Yes - results: Pending Last Dose of Anticoagulation: vitamins Op Note: N/A Pacemaker Check: N/A Consults: GI 01/10/2001 DM: No Cardiac Surgical prep: No SIGNATURE: Dede Mims RN CHECKED BY: DATE of SERVICE: 01/12/2011 TIME of SERVICE: 2:23 PM Anemia of chronic disease 11/19/20102018 Intestinal polyp 11/17/2010 10/03/2011 Overview: Distal ileum ulcerated polyp. 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) 04/22/2020 documented as of this encounter (statuses as of 05/06/2022) [facility]06-18-2019 History of Past illness Narrative* Problem Noted Date Resolved Date Medicare annual wellness visit, subsequent 10/0202/18/2019 Encounter for long-term (current) use of medicat ions 09/07/2017 05/07/2021 Overview: Added automatically from request for surgery [id number] History of colonic polyps 09/07/20172021 Overview: Added automatically from request for surgery [id number] Gastroesophageal reflux disease 09/07/2017 05/07/2021 Overview: Added automatically from request for surgery [id number] Acute pulmonary edema 01/19/2011 01/20/2011 Overview: 01/19/2011 cardiogenic and noncardiogenic factors Atelectasis 01/19/2011 01/20/2011 Hypotension 01/18/2011 01/20/2011 Overview: 01/18/2011 goal map 65-80 Stress hyperglycemia 01/18/2011 01/20/2011 Overview: 01/18/2011 Perioperative insulin resistance and exacerbation of hyperglycemia. Control blood glucose with titration of insulin infusion 01/19/2011 adequate control goal FBG<180 Post-op pain 01/18/2011 01/20/2011 Mechanically assisted ventilation 01/18/2011 01/19/2011 Overview: 01/18/2011 optimize MV settings, WTE current setting:FiO2, 75%, peep 8 Cardiac insufficiency 01/18/2011 01/19/2011 Overview: 01/18/2011 RV mild to moderate post pump goal CI>2.3 Hypoxemia 01/18/2011 01/20/2011 discharge planning 01/12/2011 02/02/2011 Overview: age 70, lives in [place], [place]. No DC needs. / Pre-op testing 01/12/2011 01/18/2011 Overview: Images from the original note were not included. [facility] Surgeon: Zenon Sanders M.D. Informed Consent Completed: No STS Score: 1.4% CAD: Yes - CAD on Problem List: Yes Is intended procedure a CABG: Yes - is a beta isamar ordered? Yes H & P completed: Yes PA/LAT: Completed CT: Completed MRI: N/A LE US: N/A Cath: Yes - reviewed: Yes Echo:Completed EKG: Completed EF %: 61 PI's: N/A Carotid: Completed Mapping: N/A Dental: Completed PFT's: N/A Basename 01/10/11 0729 WBC 7.18 HB 13.1 HCT 41.8 PLT 192 INR 1.0 CREAT 1.35 UA: Normal HCG:N/A ABO/ABO Confirmed: Yes Blood ordered: No SA Swab: Yes - results: Pending Last Dose of Anticoagulation: vitamins Op Note: N/A Pacemaker Check: N/A Consults: GI 01/10/2001 DM: No Cardiac Surgical prep: No SIGNATURE: Dede Mims RN CHECKED BY: DATE of SERVICE: 01/12/2011 TIME of SERVICE: 2:23 PM Anemia of chronic disease 11/19/20102018 Intestinal polyp 11/17/2010 10/03/2011 Overview: Distal ileum ulcerated polyp. Nonspecific abnormal results of liver function s [place] 04/04/2006 03/25/2011 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 09/0 04/2014 Obesity, Class III, BMI 40-49.9 (morbid obesity) 04/22/2020 documented as of this encounter (statuses as of 05/09/2022) [facility]06-18-2019 History of Past illness Narrative* Problem Noted Date Resolved Date Medicare annual wellness visit, subsequent 10/0202/18/2019 Encounter for long-term (current) use of medicat ions 09/07/2017 05/07/2021 Overview: Added automatically from request for surgery [id number] History of colonic polyps 09/07/20172021 Overview: Added automatically from request for surgery [id number] Gastroesophageal reflux disease 09/07/2017 05/07/2021 Overview: Added automatically from request for surgery [id number] Acute pulmonary edema 01/19/2011 01/20/2011 Overview: 01/19/2011 cardiogenic and noncardiogenic factors Atelectasis 01/19/2011 01/20/2011 Hypotension 01/18/2011 01/20/2011 Overview: 01/18/2011 goal map 65-80 Stress hyperglycemia 01/18/2011 01/20/2011 Overview: 01/18/2011 Perioperative insulin resistance and exacerbation of hyperglycemia. Control blood glucose with titration of insulin infusion 01/19/2011 adequate control goal FBG<180 Post-op pain 01/18/2011 01/20/2011 Mechanically assisted ventilation 01/18/2011 01/19/2011 Overview: 01/18/2011 optimize MV settings, WTE current setting:FiO2, 75%, peep 8 Cardiac insufficiency 01/18/2011 01/19/2011 Overview: 01/18/2011 RV mild to moderate post pump goal CI>2.3 Hypoxemia 01/18/2011 01/20/2011 discharge planning 01/12/2011 02/02/2011 Overview: age 70, lives in [place], [place]. No DC needs. / Pre-op testing 01/12/2011 01/18/2011 Overview: Images from the original note were not included. [facility] Surgeon: Zenon Sanders M.D. Informed Consent Completed: No STS Score: 1.4% CAD: Yes - CAD on Problem List: Yes Is intended procedure a CABG: Yes - is a beta isamar ordered? Yes H & P completed: Yes PA/LAT: Completed CT: Completed MRI: N/A LE US: N/A Cath: Yes - reviewed: Yes Echo:Completed EKG: Completed EF %: 61 PI's: N/A Carotid: Completed Mapping: N/A Dental: Completed PFT's: N/A Basename 01/10/11 0729 WBC 7.18 HB 13.1 HCT 41.8 PLT 192 INR 1.0 CREAT 1.35 UA: Normal HCG:N/A ABO/ABO Confirmed: Yes Blood ordered: No SA Swab: Yes - results: Pending Last Dose of Anticoagulation: vitamins Op Note: N/A Pacemaker Check: N/A Consults: GI 01/10/2001 DM: No Cardiac Surgical prep: No SIGNATURE: Dede Mims RN CHECKED BY: DATE of SERVICE: 01/12/2011 TIME of SERVICE: 2:23 PM Anemia of chronic disease 11/19/20102018 Intestinal polyp 11/17/2010 10/03/2011 Overview: Distal ileum ulcerated polyp. Nonspecific abnormal results of liver function s [place] 04/04/2006 03/25/2011 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/0 04/2014 Obesity, Class III, BMI 40-49.9 (morbid obesity) 04/22/2020 documented as of this encounter (statuses as of 05/09/2022) [facility]06-18-2019 History of Past illness Narrative* Problem Noted Date Resolved Date Medicare annual wellness visit, subsequent 10/0202/18/2019 Encounter for long-term (current) use of medicat ions 09/07/2017 05/07/2021 Overview: Added automatically from request for surgery [id number] History of colonic polyps 09/07/20172021 Overview: Added automatically from request for surgery [id number] Gastroesophageal reflux disease 09/07/2017 05/07/2021 Overview: Added automatically from request for surgery [id number] Acute pulmonary edema 01/19/2011 01/20/2011 Overview: 01/19/2011 cardiogenic and noncardiogenic factors Atelectasis 01/19/2011 01/20/2011 Hypotension 01/18/2011 01/20/2011 Overview: 01/18/2011 goal map 65-80 Stress hyperglycemia 01/18/2011 01/20/2011 Overview: 01/18/2011 Perioperative insulin resistance and exacerbation of hyperglycemia. Control blood glucose with titration of insulin infusion 01/19/2011 adequate control goal FBG<180 Post-op pain 01/18/2011 01/20/2011 Mechanically assisted ventilation 01/18/2011 01/19/2011 Overview: 01/18/2011 optimize MV settings, WTE current setting:FiO2, 75%, peep 8 Cardiac insufficiency 01/18/2011 01/19/2011 Overview: 01/18/2011 RV mild to moderate post pump goal CI>2.3 Hypoxemia 01/18/2011 01/20/2011 discharge planning 01/12/2011 02/02/2011 Overview: age 70, lives in [place], [place]. No DC needs. / Pre-op testing 01/12/2011 01/18/2011 Overview: Images from the original note were not included. [facility] Surgeon: Zenon Sanders M.D. Informed Consent Completed: No STS Score: 1.4% CAD: Yes - CAD on Problem List: Yes Is intended procedure a CABG: Yes - is a beta isamar ordered? Yes H & P completed: Yes PA/LAT: Completed CT: Completed MRI: N/A LE US: N/A Cath: Yes - reviewed: Yes Echo:Completed EKG: Completed EF %: 61 PI's: N/A Carotid: Completed Mapping: N/A Dental: Completed PFT's: N/A Basename 01/10/11 0729 WBC 7.18 HB 13.1 HCT 41.8 PLT 192 INR 1.0 CREAT 1.35 UA: Normal HCG:N/A ABO/ABO Confirmed: Yes Blood ordered: No SA Swab: Yes - results: Pending Last Dose of Anticoagulation: vitamins Op Note: N/A Pacemaker Check: N/A Consults: GI 01/10/2001 DM: No Cardiac Surgical prep: No SIGNATURE: Dede Mims RN CHECKED BY: DATE of SERVICE: 01/12/2011 TIME of SERVICE: 2:23 PM Anemia of chronic disease 11/19/20102018 Intestinal polyp 11/17/2010 10/03/2011 Overview: Distal ileum ulcerated polyp. Nonspecific abnormal results of liver function s [place] 04/04/2006 03/25/2011 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04/2014 Obesity, Class III, BMI 40-49.9 (morbid obesity) 04/22/2020 documented as of this encounter (statuses as of 05/11/2022) [facility]06-18-2019 History of Past illness Narrative* Problem Noted Date Resolved Date Medicare annual wellness visit, subsequent 10/0202/18/2019 Encounter for long-term (current) use of medicat ions 09/07/2017 05/07/2021 Overview: Added automatically from request for surgery [id number] History of colonic polyps 09/07/20172021 Overview: Added automatically from request for surgery [id number] Gastroesophageal reflux disease 09/07/2017 05/07/2021 Overview: Added automatically from request for surgery [id number] Acute pulmonary edema 01/19/2011 01/20/2011 Overview: 01/19/2011 cardiogenic and noncardiogenic factors Atelectasis 01/19/2011 01/20/2011 Hypotension 01/18/2011 01/20/2011 Overview: 01/18/2011 goal map 65-80 Stress hyperglycemia 01/18/2011 01/20/2011 Overview: 01/18/2011 Perioperative insulin resistance and exacerbation of hyperglycemia. Control blood glucose with titration of insulin infusion 01/19/2011 adequate control goal FBG<180 Post-op pain 01/18/2011 01/20/2011 Mechanically assisted ventilation 01/18/2011 01/19/2011 Overview: 01/18/2011 optimize MV settings, WTE current setting:FiO2, 75%, peep 8 Cardiac insufficiency 01/18/2011 01/19/2011 Overview: 01/18/2011 RV mild to moderate post pump goal CI>2.3 Hypoxemia 01/18/2011 01/20/2011 discharge planning 01/12/2011 02/02/2011 Overview: age 70, lives in [place], [place]. No DC needs. / Pre-op testing 01/12/2011 01/18/2011 Overview: Images from the original note were not included. [facility] Surgeon: Zenon Sanders M.D. Informed Consent Completed: No STS Score: 1.4% CAD: Yes - CAD on Problem List: Yes Is intended procedure a CABG: Yes - is a beta isamar ordered? Yes H & P completed: Yes PA/LAT: Completed CT: Completed MRI: N/A LE US: N/A Cath: Yes - reviewed: Yes Echo:Completed EKG: Completed EF %: 61 PI's: N/A Carotid: Completed Mapping: N/A Dental: Completed PFT's: N/A Basename 01/10/11 0729 WBC 7.18 HB 13.1 HCT 41.8 PLT 192 INR 1.0 CREAT 1.35 UA: Normal HCG:N/A ABO/ABO Confirmed: Yes Blood ordered: No SA Swab: Yes - results: Pending Last Dose of Anticoagulation: vitamins Op Note: N/A Pacemaker Check: N/A Consults: GI 01/10/2001 DM: No Cardiac Surgical prep: No SIGNATURE: Dede Mims RN CHECKED BY: DATE of SERVICE: 01/12/2011 TIME of SERVICE: 2:23 PM Anemia of chronic disease 11/19/20102018 Intestinal polyp 11/17/2010 10/03/2011 Overview: Distal ileum ulcerated polyp. 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) 04/22/2020 documented as of this encounter (statuses as of 05/12/2022) [facility]06-18-2019 History of Past illness Narrative* Problem Noted Date Resolved Date Medicare annual wellness visit, subsequent 10/0202/18/2019 Encounter for long-term (current) use of medicat ions 09/07/2017 05/07/2021 Overview: Added automatically from request for surgery [id number] History of colonic polyps 09/07/20172021 Overview: Added automatically from request for surgery [id number] Gastroesophageal reflux disease 09/07/2017 05/07/2021 Overview: Added automatically from request for surgery [id number] Acute pulmonary edema 01/19/2011 01/20/2011 Overview: 01/19/2011 cardiogenic and noncardiogenic factors Atelectasis 01/19/2011 01/20/2011 Hypotension 01/18/2011 01/20/2011 Overview: 01/18/2011 goal map 65-80 Stress hyperglycemia 01/18/2011 01/20/2011 Overview: 01/18/2011 Perioperative insulin resistance and exacerbation of hyperglycemia. Control blood glucose with titration of insulin infusion 01/19/2011 adequate control goal FBG<180 Post-op pain 01/18/2011 01/20/2011 Mechanically assisted ventilation 01/18/2011 01/19/2011 Overview: 01/18/2011 optimize MV settings, WTE current setting:FiO2, 75%, peep 8 Cardiac insufficiency 01/18/2011 01/19/2011 Overview: 01/18/2011 RV mild to moderate post pump goal CI>2.3 Hypoxemia 01/18/2011 01/20/2011 discharge planning 01/12/2011 02/02/2011 Overview: age 70, lives in [place], [place]. No DC needs. / Pre-op testing 01/12/2011 01/18/2011 Overview: Images from the original note were not included. [facility] Surgeon: Zenon Sanders M.D. Informed Consent Completed: No STS Score: 1.4% CAD: Yes - CAD on Problem List: Yes Is intended procedure a CABG: Yes - is a beta isamar ordered? Yes H & P completed: Yes PA/LAT: Completed CT: Completed MRI: N/A LE US: N/A Cath: Yes - reviewed: Yes Echo:Completed EKG: Completed EF %: 61 PI's: N/A Carotid: Completed Mapping: N/A Dental: Completed PFT's: N/A Basename 01/10/11 0729 WBC 7.18 HB 13.1 HCT 41.8 PLT 192 INR 1.0 CREAT 1.35 UA: Normal HCG:N/A ABO/ABO Confirmed: Yes Blood ordered: No SA Swab: Yes - results: Pending Last Dose of Anticoagulation: vitamins Op Note: N/A Pacemaker Check: N/A Consults: GI 01/10/2001 DM: No Cardiac Surgical prep: No SIGNATURE: Dede Mims RN CHECKED BY: DATE of SERVICE: 01/12/2011 TIME of SERVICE: 2:23 PM Anemia of chronic disease 11/19/20102018 Intestinal polyp 11/17/2010 10/03/2011 Overview: Distal ileum ulcerated polyp. 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) 04/22/2020 documented as of this encounter (statuses as of 05/13/2022) [facility]06-18-2019 History of Past illness Narrative* Problem Noted Date Resolved Date Medicare annual wellness visit, subsequent 10/0202/18/2019 Encounter for long-term (current) use of medicat ions 09/07/2017 05/07/2021 Overview: Added automatically from request for surgery [id number] History of colonic polyps 09/07/20172021 Overview: Added automatically from request for surgery [id number] Gastroesophageal reflux disease 09/07/2017 05/07/2021 Overview: Added automatically from request for surgery [id number] Acute pulmonary edema 01/19/2011 01/20/2011 Overview: 01/19/2011 cardiogenic and noncardiogenic factors Atelectasis 01/19/2011 01/20/2011 Hypotension 01/18/2011 01/20/2011 Overview: 01/18/2011 goal map 65-80 Stress hyperglycemia 01/18/2011 01/20/2011 Overview: 01/18/2011 Perioperative insulin resistance and exacerbation of hyperglycemia. Control blood glucose with titration of insulin infusion 01/19/2011 adequate control goal FBG<180 Post-op pain 01/18/2011 01/20/2011 Mechanically assisted ventilation 01/18/2011 01/19/2011 Overview: 01/18/2011 optimize MV settings, WTE current setting:FiO2, 75%, peep 8 Cardiac insufficiency 01/18/2011 01/19/2011 Overview: 01/18/2011 RV mild to moderate post pump goal CI>2.3 Hypoxemia 01/18/2011 01/20/2011 discharge planning 01/12/2011 02/02/2011 Overview: age 70, lives in [place], [place]. No DC needs. / Pre-op testing 01/12/2011 01/18/2011 Overview: Images from the original note were not included. [facility] Surgeon: Zenon Sanders M.D. Informed Consent Completed: No STS Score: 1.4% CAD: Yes - CAD on Problem List: Yes Is intended procedure a CABG: Yes - is a beta isamar ordered? Yes H & P completed: Yes PA/LAT: Completed CT: Completed MRI: N/A LE US: N/A Cath: Yes - reviewed: Yes Echo:Completed EKG: Completed EF %: 61 PI's: N/A Carotid: Completed Mapping: N/A Dental: Completed PFT's: N/A Basename 01/10/11 0729 WBC 7.18 HB 13.1 HCT 41.8 PLT 192 INR 1.0 CREAT 1.35 UA: Normal HCG:N/A ABO/ABO Confirmed: Yes Blood ordered: No SA Swab: Yes - results: Pending Last Dose of Anticoagulation: vitamins Op Note: N/A Pacemaker Check: N/A Consults: GI 01/10/2001 DM: No Cardiac Surgical prep: No SIGNATURE: Dede Mims RN CHECKED BY: DATE of SERVICE: 01/12/2011 TIME of SERVICE: 2:23 PM Anemia of chronic disease 11/19/20102018 Intestinal polyp 11/17/2010 10/03/2011 Overview: Distal ileum ulcerated polyp. 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/2014 Obesity, Class III, BMI 40-49.9 (morbid obesity) 04/22/2020 documented as of this encounter (statuses as of 05/15/2022) [facility]2019 History of Past illness Narrative* Problem Noted Date Resolved Date Medicare annual wellness visit, subsequent 10/0202/18/2019 Encounter for long-term (current) use of medicat ions 09/07/2017 05/07/2021 Overview: Added automatically from request for surgery [id number] History of colonic polyps 09/07/20172021 Overview: Added automatically from request for surgery [id number] Gastroesophageal reflux disease 09/07/2017 05/07/2021 Overview: Added automatically from request for surgery [id number] Acute pulmonary edema 01/19/2011 01/20/2011 Overview: 01/19/2011 cardiogenic and noncardiogenic factors Atelectasis 01/19/2011 01/20/2011 Hypotension 01/18/2011 01/20/2011 Overview: 01/18/2011 goal map 65-80 Stress hyperglycemia 01/18/2011 01/20/2011 Overview: 01/18/2011 Perioperative insulin resistance and exacerbation of hyperglycemia. Control blood glucose with titration of insulin infusion 01/19/2011 adequate control goal FBG<180 Post-op pain 01/18/2011 01/20/2011 Mechanically assisted ventilation 01/18/2011 01/19/2011 Overview: 01/18/2011 optimize MV settings, WTE current setting:FiO2, 75%, peep 8 Cardiac insufficiency 01/18/2011 01/19/2011 Overview: 01/18/2011 RV mild to moderate post pump goal CI>2.3 Hypoxemia 01/18/2011 01/20/2011 discharge planning 01/12/2011 02/02/2011 Overview: age 70, lives in [place], [place]. No DC needs. / Pre-op testing 01/12/2011 01/18/2011 Overview: Images from the original note were not included. [facility] Surgeon: Zenon Sanders M.D. Informed Consent Completed: No STS Score: 1.4% CAD: Yes - CAD on Problem List: Yes Is intended procedure a CABG: Yes - is a beta isamar ordered? Yes H & P completed: Yes PA/LAT: Completed CT: Completed MRI: N/A LE US: N/A Cath: Yes - reviewed: Yes Echo:Completed EKG: Completed EF %: 61 PI's: N/A Carotid: Completed Mapping: N/A Dental: Completed PFT's: N/A Basename 01/10/11 0729 WBC 7.18 HB 13.1 HCT 41.8 PLT 192 INR 1.0 CREAT 1.35 UA: Normal HCG:N/A ABO/ABO Confirmed: Yes Blood ordered: No SA Swab: Yes - results: Pending Last Dose of Anticoagulation: vitamins Op Note: N/A Pacemaker Check: N/A Consults: GI 01/10/2001 DM: No Cardiac Surgical prep: No SIGNATURE: Dede Mims RN CHECKED BY: DATE of SERVICE: 01/12/2011 TIME of SERVICE: 2:23 PM Anemia of chronic disease 11/19/20102018 Intestinal polyp 11/17/2010 10/03/2011 Overview: Distal ileum ulcerated polyp. 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) 04/22/2020 documented as of this encounter (statuses as of 05/17/2022) [facility]2019 History of Past illness Narrative* Problem Noted Date Resolved Date Medicare annual wellness visit, subsequent 10/0202/18/2019 Encounter for long-term (current) use of medicat ions 09/07/2017 05/07/2021 Overview: Added automatically from request for surgery [id number] History of colonic polyps 09/07/20172021 Overview: Added automatically from request for surgery [id number] Gastroesophageal reflux disease 09/07/2017 05/07/2021 Overview: Added automatically from request for surgery [id number] Acute pulmonary edema 01/19/2011 01/20/2011 Overview: 01/19/2011 cardiogenic and noncardiogenic factors Atelectasis 01/19/2011 01/20/2011 Hypotension 01/18/2011 01/20/2011 Overview: 01/18/2011 goal map 65-80 Stress hyperglycemia 01/18/2011 01/20/2011 Overview: 01/18/2011 Perioperative insulin resistance and exacerbation of hyperglycemia. Control blood glucose with titration of insulin infusion 01/19/2011 adequate control goal FBG<180 Post-op pain 01/18/2011 01/20/2011 Mechanically assisted ventilation 01/18/2011 01/19/2011 Overview: 01/18/2011 optimize MV settings, WTE current setting:FiO2, 75%, peep 8 Cardiac insufficiency 01/18/2011 01/19/2011 Overview: 01/18/2011 RV mild to moderate post pump goal CI>2.3 Hypoxemia 01/18/2011 01/20/2011 discharge planning 01/12/2011 02/02/2011 Overview: age 70, lives in [place], [place]. No DC needs. / Pre-op testing 01/12/2011 01/18/2011 Overview: Images from the original note were not included. [facility] Surgeon: Zenon Sanders M.D. Informed Consent Completed: No STS Score: 1.4% CAD: Yes - CAD on Problem List: Yes Is intended procedure a CABG: Yes - is a beta isamar ordered? Yes H & P completed: Yes PA/LAT: Completed CT: Completed MRI: N/A LE US: N/A Cath: Yes - reviewed: Yes Echo:Completed EKG: Completed EF %: 61 PI's: N/A Carotid: Completed Mapping: N/A Dental: Completed PFT's: N/A Basename 01/10/11 0729 WBC 7.18 HB 13.1 HCT 41.8 PLT 192 INR 1.0 CREAT 1.35 UA: Normal HCG:N/A ABO/ABO Confirmed: Yes Blood ordered: No SA Swab: Yes - results: Pending Last Dose of Anticoagulation: vitamins Op Note: N/A Pacemaker Check: N/A Consults: GI 01/10/2001 DM: No Cardiac Surgical prep: No SIGNATURE: Dede Mims RN CHECKED BY: DATE of SERVICE: 01/12/2011 TIME of SERVICE: 2:23 PM Anemia of chronic disease 11/19/20102018 Intestinal polyp 11/17/2010 10/03/2011 Overview: Distal ileum ulcerated polyp. 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) 04/22/2020 documented as of this encounter (statuses as of 05/18/2022) [facility] History of Past illness Narrative* Problem Noted Date Resolved Date Medicare annual wellness visit, subsequent 10/0202/18/2019 Encounter for long-term (current) use of medicat ions 09/07/2017 05/07/2021 Overview: Added automatically from request for surgery [id number] History of colonic polyps 09/07/20172021 Overview: Added automatically from request for surgery [id number] Gastroesophageal reflux disease 09/07/2017 05/07/2021 Overview: Added automatically from request for surgery [id number] Acute pulmonary edema 01/19/2011 01/20/2011 Overview: 01/19/2011 cardiogenic and noncardiogenic factors Atelectasis 01/19/2011 01/20/2011 Hypotension 01/18/2011 01/20/2011 Overview: 01/18/2011 goal map 65-80 Stress hyperglycemia 01/18/2011 01/20/2011 Overview: 01/18/2011 Perioperative insulin resistance and exacerbation of hyperglycemia. Control blood glucose with titration of insulin infusion 01/19/2011 adequate control goal FBG<180 Post-op pain 01/18/2011 01/20/2011 Mechanically assisted ventilation 01/18/2011 01/19/2011 Overview: 01/18/2011 optimize MV settings, WTE current setting:FiO2, 75%, peep 8 Cardiac insufficiency 01/18/2011 01/19/2011 Overview: 01/18/2011 RV mild to moderate post pump goal CI>2.3 Hypoxemia 01/18/2011 01/20/2011 discharge planning 01/12/2011 02/02/2011 Overview: age 70, lives in [place], [place]. No DC needs. / Pre-op testing 01/12/2011 01/18/2011 Overview: Images from the original note were not included. [facility] Surgeon: Zenon Sanders M.D. Informed Consent Completed: No STS Score: 1.4% CAD: Yes - CAD on Problem List: Yes Is intended procedure a CABG: Yes - is a beta isamar ordered? Yes H & P completed: Yes PA/LAT: Completed CT: Completed MRI: N/A LE US: N/A Cath: Yes - reviewed: Yes Echo:Completed EKG: Completed EF %: 61 PI's: N/A Carotid: Completed Mapping: N/A Dental: Completed PFT's: N/A Basename 01/10/11 0729 WBC 7.18 HB 13.1 HCT 41.8 PLT 192 INR 1.0 CREAT 1.35 UA: Normal HCG:N/A ABO/ABO Confirmed: Yes Blood ordered: No SA Swab: Yes - results: Pending Last Dose of Anticoagulation: vitamins Op Note: N/A Pacemaker Check: N/A Consults: GI 01/10/2001 DM: No Cardiac Surgical prep: No SIGNATURE: Dede Mims RN CHECKED BY: DATE of SERVICE: 01/12/2011 TIME of SERVICE: 2:23 PM Anemia of chronic disease 11/19/20102018 Intestinal polyp 11/17/2010 10/03/2011 Overview: Distal ileum ulcerated polyp. Nonspecific abnormal results of liver function s [place] 04/04/2006 03/25/2011 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/04/2014 Obesity, Class III, BMI 40-49.9 (morbid obesity) 04/22/2020 documented as of this encounter (statuses as of 05/20/2022) [facility] [facility]-2019 History of Past illness Narrative* Problem Noted Date Resolved Date Medicare annual wellness visit, subsequent 10/0202/18/2019 Encounter for long-term (current) use of medicat ions 09/07/2017 05/07/2021 Overview: Added automatically from request for surgery [id number] History of colonic polyps 09/07/20172021 Overview: Added automatically from request for surgery [id number] Gastroesophageal reflux disease 09/07/2017 05/07/2021 Overview: Added automatically from request for surgery [id number] Acute pulmonary edema 01/19/2011 01/20/2011 Overview: 01/19/2011 cardiogenic and noncardiogenic factors Atelectasis 01/19/2011 01/20/2011 Hypotension 01/18/2011 01/20/2011 Overview: 01/18/2011 goal map 65-80 Stress hyperglycemia 01/18/2011 01/20/2011 Overview: 01/18/2011 Perioperative insulin resistance and exacerbation of hyperglycemia. Control blood glucose with titration of insulin infusion 01/19/2011 adequate control goal FBG<180 Post-op pain 01/18/2011 01/20/2011 Mechanically assisted ventilation 01/18/2011 01/19/2011 Overview: 01/18/2011 optimize MV settings, WTE current setting:FiO2, 75%, peep 8 Cardiac insufficiency 01/18/2011 01/19/2011 Overview: 01/18/2011 RV mild to moderate post pump goal CI>2.3 Hypoxemia 01/18/2011 01/20/2011 discharge planning 01/12/2011 02/02/2011 Overview: age 70, lives in [place], [place]. No DC needs. / Pre-op testing 01/12/2011 01/18/2011 Overview: Images from the original note were not included. [facility] Surgeon: Zenon Sanders M.D. Informed Consent Completed: No STS Score: 1.4% CAD: Yes - CAD on Problem List: Yes Is intended procedure a CABG: Yes - is a beta isamar ordered? Yes H & P completed: Yes PA/LAT: Completed CT: Completed MRI: N/A LE US: N/A Cath: Yes - reviewed: Yes Echo:Completed EKG: Completed EF %: 61 PI's: N/A Carotid: Completed Mapping: N/A Dental: Completed PFT's: N/A Basename 01/10/11 0729 WBC 7.18 HB 13.1 HCT 41.8 PLT 192 INR 1.0 CREAT 1.35 UA: Normal HCG:N/A ABO/ABO Confirmed: Yes Blood ordered: No SA Swab: Yes - results: Pending Last Dose of Anticoagulation: vitamins Op Note: N/A Pacemaker Check: N/A Consults: GI 01/10/2001 DM: No Cardiac Surgical prep: No SIGNATURE: Dede Mims RN CHECKED BY: DATE of SERVICE: 01/12/2011 TIME of SERVICE: 2:23 PM Anemia of chronic disease 11/19/20102018 Intestinal polyp 11/17/2010 10/03/2011 Overview: Distal ileum ulcerated polyp. Nonspecific abnormal results of liver function s yamiledy 04/04/2006 03/25/2011 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 09/0 04/2014 Obesity, Class III, BMI 40-49.9 (morbid obesity) 04/22/2020 documented as of this encounter (statuses as of 05/25/2022) [facility]2019 History of Past illness Narrative* Problem Noted Date Resolved Date Medicare annual wellness visit, subsequent 10/0202/18/2019 Encounter for long-term (current) use of medicat ions 09/07/2017 05/07/2021 Overview: Added automatically from request for surgery [id number] History of colonic polyps 09/07/20172021 Overview: Added automatically from request for surgery [id number] Gastroesophageal reflux disease 09/07/2017 05/07/2021 Overview: Added automatically from request for surgery [id number] Acute pulmonary edema 01/19/2011 01/20/2011 Overview: 01/19/2011 cardiogenic and noncardiogenic factors Atelectasis 01/19/2011 01/20/2011 Hypotension 01/18/2011 01/20/2011 Overview: 01/18/2011 goal map 65-80 Stress hyperglycemia 01/18/2011 01/20/2011 Overview: 01/18/2011 Perioperative insulin resistance and exacerbation of hyperglycemia. Control blood glucose with titration of insulin infusion 01/19/2011 adequate control goal FBG<180 Post-op pain 01/18/2011 01/20/2011 Mechanically assisted ventilation 01/18/2011 01/19/2011 Overview: 01/18/2011 optimize MV settings, WTE current setting:FiO2, 75%, peep 8 Cardiac insufficiency 01/18/2011 01/19/2011 Overview: 01/18/2011 RV mild to moderate post pump goal CI>2.3 Hypoxemia 01/18/2011 01/20/2011 discharge planning 01/12/2011 02/02/2011 Overview: age 70, lives in [place], [place]. No DC needs. / Pre-op testing 01/12/2011 01/18/2011 Overview: Images from the original note were not included. [facility] Surgeon: Zenon Sanders M.D. Informed Consent Completed: No STS Score: 1.4% CAD: Yes - CAD on Problem List: Yes Is intended procedure a CABG: Yes - is a beta isamar ordered? Yes H & P completed: Yes PA/LAT: Completed CT: Completed MRI: N/A LE US: N/A Cath: Yes - reviewed: Yes Echo:Completed EKG: Completed EF %: 61 PI's: N/A Carotid: Completed Mapping: N/A Dental: Completed PFT's: N/A Basename 01/10/11 0729 WBC 7.18 HB 13.1 HCT 41.8 PLT 192 INR 1.0 CREAT 1.35 UA: Normal HCG:N/A ABO/ABO Confirmed: Yes Blood ordered: No SA Swab: Yes - results: Pending Last Dose of Anticoagulation: vitamins Op Note: N/A Pacemaker Check: N/A Consults: GI 01/10/2001 DM: No Cardiac Surgical prep: No SIGNATURE: Dede Mims RN CHECKED BY: DATE of SERVICE: 01/12/2011 TIME of SERVICE: 2:23 PM Anemia of chronic disease 11/19/20102018 Intestinal polyp 11/17/2010 10/03/2011 Overview: Distal ileum ulcerated polyp. 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) 04/22/2020 documented as of this encounter (statuses as of 05/27/2022) [facility]2019 History of Past illness Narrative* Problem Noted Date Resolved Date Medicare annual wellness visit, subsequent 10/0202/18/2019 Encounter for long-term (current) use of medicat ions 09/07/2017 05/07/2021 Overview: Added automatically from request for surgery [id number] History of colonic polyps 09/07/20172021 Overview: Added automatically from request for surgery [id number] Gastroesophageal reflux disease 09/07/2017 05/07/2021 Overview: Added automatically from request for surgery [id number] Acute pulmonary edema 01/19/2011 01/20/2011 Overview: 01/19/2011 cardiogenic and noncardiogenic factors Atelectasis 01/19/2011 01/20/2011 Hypotension 01/18/2011 01/20/2011 Overview: 01/18/2011 goal map 65-80 Stress hyperglycemia 01/18/2011 01/20/2011 Overview: 01/18/2011 Perioperative insulin resistance and exacerbation of hyperglycemia. Control blood glucose with titration of insulin infusion 01/19/2011 adequate control goal FBG<180 Post-op pain 01/18/2011 01/20/2011 Mechanically assisted ventilation 01/18/2011 01/19/2011 Overview: 01/18/2011 optimize MV settings, WTE current setting:FiO2, 75%, peep 8 Cardiac insufficiency 01/18/2011 01/19/2011 Overview: 01/18/2011 RV mild to moderate post pump goal CI>2.3 Hypoxemia 01/18/2011 01/20/2011 discharge planning 01/12/2011 02/02/2011 Overview: age 70, lives in [place], [place]. No DC needs. / Pre-op testing 01/12/2011 01/18/2011 Overview: Images from the original note were not included. [facility] Surgeon: Zenon Sanders M.D. Informed Consent Completed: No STS Score: 1.4% CAD: Yes - CAD on Problem List: Yes Is intended procedure a CABG: Yes - is a beta isamar ordered? Yes H & P completed: Yes PA/LAT: Completed CT: Completed MRI: N/A LE US: N/A Cath: Yes - reviewed: Yes Echo:Completed EKG: Completed EF %: 61 PI's: N/A Carotid: Completed Mapping: N/A Dental: Completed PFT's: N/A Basename 01/10/11 0729 WBC 7.18 HB 13.1 HCT 41.8 PLT 192 INR 1.0 CREAT 1.35 UA: Normal HCG:N/A ABO/ABO Confirmed: Yes Blood ordered: No SA Swab: Yes - results: Pending Last Dose of Anticoagulation: vitamins Op Note: N/A Pacemaker Check: N/A Consults: GI 01/10/2001 DM: No Cardiac Surgical prep: No SIGNATURE: Dede Mims RN CHECKED BY: DATE of SERVICE: 01/12/2011 TIME of SERVICE: 2:23 PM Anemia of chronic disease 11/19/20102018 Intestinal polyp 11/17/2010 10/03/2011 Overview: Distal ileum ulcerated polyp. Nonspecific abnormal results of liver function s tudy 04/04/2006 03/25/2011 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 09/0 04/2014 Obesity, Class III, BMI 40-49.9 (morbid obesity) 04/22/2020 documented as of this encounter (statuses as of 05/31/2022) [facility]2019 History of Past illness Narrative* Problem Noted Date Resolved Date Medicare annual wellness visit, subsequent 10/0202/18/2019 Encounter for long-term (current) use of medicat ions 09/07/2017 05/07/2021 Overview: Added automatically from request for surgery [id number] History of colonic polyps 09/07/20172021 Overview: Added automatically from request for surgery [id number] Gastroesophageal reflux disease 09/07/2017 05/07/2021 Overview: Added automatically from request for surgery [id number] Acute pulmonary edema 01/19/2011 01/20/2011 Overview: 01/19/2011 cardiogenic and noncardiogenic factors Atelectasis 01/19/2011 01/20/2011 Hypotension 01/18/2011 01/20/2011 Overview: 01/18/2011 goal map 65-80 Stress hyperglycemia 01/18/2011 01/20/2011 Overview: 01/18/2011 Perioperative insulin resistance and exacerbation of hyperglycemia. Control blood glucose with titration of insulin infusion 01/19/2011 adequate control goal FBG<180 Post-op pain 01/18/2011 01/20/2011 Mechanically assisted ventilation 01/18/2011 01/19/2011 Overview: 01/18/2011 optimize MV settings, WTE current setting:FiO2, 75%, peep 8 Cardiac insufficiency 01/18/2011 01/19/2011 Overview: 01/18/2011 RV mild to moderate post pump goal CI>2.3 Hypoxemia 01/18/2011 01/20/2011 discharge planning 01/12/2011 02/02/2011 Overview: age 70, lives in [place], [place]. No DC needs. / Pre-op testing 01/12/2011 01/18/2011 Overview: Images from the original note were not included. [facility] Surgeon: Zenon Sanders M.D. Informed Consent Completed: No STS Score: 1.4% CAD: Yes - CAD on Problem List: Yes Is intended procedure a CABG: Yes - is a beta isamar ordered? Yes H & P completed: Yes PA/LAT: Completed CT: Completed MRI: N/A LE US: N/A Cath: Yes - reviewed: Yes Echo:Completed EKG: Completed EF %: 61 PI's: N/A Carotid: Completed Mapping: N/A Dental: Completed PFT's: N/A Basename 01/10/11 0729 WBC 7.18 HB 13.1 HCT 41.8 PLT 192 INR 1.0 CREAT 1.35 UA: Normal HCG:N/A ABO/ABO Confirmed: Yes Blood ordered: No SA Swab: Yes - results: Pending Last Dose of Anticoagulation: vitamins Op Note: N/A Pacemaker Check: N/A Consults: GI 01/10/2001 DM: No Cardiac Surgical prep: No SIGNATURE: Dede Mims RN CHECKED BY: DATE of SERVICE: 01/12/2011 TIME of SERVICE: 2:23 PM Anemia of chronic disease 11/19/20102018 Intestinal polyp 11/17/2010 10/03/2011 Overview: Distal ileum ulcerated polyp. Nonspecific abnormal results of liver function s yamiledy 04/04/2006 03/25/2011 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04/2014 Obesity, Class III, BMI 40-49.9 (morbid obesity) 04/22/2020 documented as of this encounter (statuses as of 06/02/2022) [facility]2019 History of Past illness Narrative* Problem Noted Date Resolved Date Medicare annual wellness visit, subsequent 10/0202/18/2019 Encounter for long-term (current) use of medicat ions 09/07/2017 05/07/2021 Overview: Added automatically from request for surgery [id number] History of colonic polyps 09/07/20172021 Overview: Added automatically from request for surgery [id number] Gastroesophageal reflux disease 09/07/2017 05/07/2021 Overview: Added automatically from request for surgery [id number] Acute pulmonary edema 01/19/2011 01/20/2011 Overview: 01/19/2011 cardiogenic and noncardiogenic factors Atelectasis 01/19/2011 01/20/2011 Hypotension 01/18/2011 01/20/2011 Overview: 01/18/2011 goal map 65-80 Stress hyperglycemia 01/18/2011 01/20/2011 Overview: 01/18/2011 Perioperative insulin resistance and exacerbation of hyperglycemia. Control blood glucose with titration of insulin infusion 01/19/2011 adequate control goal FBG<180 Post-op pain 01/18/2011 01/20/2011 Mechanically assisted ventilation 01/18/2011 01/19/2011 Overview: 01/18/2011 optimize MV settings, WTE current setting:FiO2, 75%, peep 8 Cardiac insufficiency 01/18/2011 01/19/2011 Overview: 01/18/2011 RV mild to moderate post pump goal CI>2.3 Hypoxemia 01/18/2011 01/20/2011 discharge planning 01/12/2011 02/02/2011 Overview: age 70, lives in [place], [place]. No DC needs. / Pre-op testing 01/12/2011 01/18/2011 Overview: Images from the original note were not included. [facility] Surgeon: Zenon Sanders M.D. Informed Consent Completed: No STS Score: 1.4% CAD: Yes - CAD on Problem List: Yes Is intended procedure a CABG: Yes - is a beta isamar ordered? Yes H & P completed: Yes PA/LAT: Completed CT: Completed MRI: N/A LE US: N/A Cath: Yes - reviewed: Yes Echo:Completed EKG: Completed EF %: 61 PI's: N/A Carotid: Completed Mapping: N/A Dental: Completed PFT's: N/A Basename 01/10/11 0729 WBC 7.18 HB 13.1 HCT 41.8 PLT 192 INR 1.0 CREAT 1.35 UA: Normal HCG:N/A ABO/ABO Confirmed: Yes Blood ordered: No SA Swab: Yes - results: Pending Last Dose of Anticoagulation: vitamins Op Note: N/A Pacemaker Check: N/A Consults: GI 01/10/2001 DM: No Cardiac Surgical prep: No SIGNATURE: Dede Mims RN CHECKED BY: DATE of SERVICE: 01/12/2011 TIME of SERVICE: 2:23 PM Anemia of chronic disease 11/19/20102018 Intestinal polyp 11/17/2010 10/03/2011 Overview: Distal ileum ulcerated polyp. 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) 04/22/2020 documented as of this encounter (statuses as of 06/10/2022) [facility]2019 History of Past illness Narrative* Problem Noted Date Resolved Date Medicare annual wellness visit, subsequent 10/0202/18/2019 Encounter for long-term (current) use of medicat ions 09/07/2017 05/07/2021 Overview: Added automatically from request for surgery [id number] History of colonic polyps 09/07/20172021 Overview: Added automatically from request for surgery [id number] Gastroesophageal reflux disease 09/07/2017 05/07/2021 Overview: Added automatically from request for surgery [id number] Acute pulmonary edema 01/19/2011 01/20/2011 Overview: 01/19/2011 cardiogenic and noncardiogenic factors Atelectasis 01/19/2011 01/20/2011 Hypotension 01/18/2011 01/20/2011 Overview: 01/18/2011 goal map 65-80 Stress hyperglycemia 01/18/2011 01/20/2011 Overview: 01/18/2011 Perioperative insulin resistance and exacerbation of hyperglycemia. Control blood glucose with titration of insulin infusion 01/19/2011 adequate control goal FBG<180 Post-op pain 01/18/2011 01/20/2011 Mechanically assisted ventilation 01/18/2011 01/19/2011 Overview: 01/18/2011 optimize MV settings, WTE current setting:FiO2, 75%, peep 8 Cardiac insufficiency 01/18/2011 01/19/2011 Overview: 01/18/2011 RV mild to moderate post pump goal CI>2.3 Hypoxemia 01/18/2011 01/20/2011 discharge planning 01/12/2011 02/02/2011 Overview: age 70, lives in [place], [place]. No DC needs. / Pre-op testing 01/12/2011 01/18/2011 Overview: Images from the original note were not included. [facility] Surgeon: Zenon Sanders M.D. Informed Consent Completed: No STS Score: 1.4% CAD: Yes - CAD on Problem List: Yes Is intended procedure a CABG: Yes - is a beta isamar ordered? Yes H & P completed: Yes PA/LAT: Completed CT: Completed MRI: N/A LE US: N/A Cath: Yes - reviewed: Yes Echo:Completed EKG: Completed EF %: 61 PI's: N/A Carotid: Completed Mapping: N/A Dental: Completed PFT's: N/A Basename 01/10/11 0729 WBC 7.18 HB 13.1 HCT 41.8 PLT 192 INR 1.0 CREAT 1.35 UA: Normal HCG:N/A ABO/ABO Confirmed: Yes Blood ordered: No SA Swab: Yes - results: Pending Last Dose of Anticoagulation: vitamins Op Note: N/A Pacemaker Check: N/A Consults: GI 01/10/2001 DM: No Cardiac Surgical prep: No SIGNATURE: Dede Mims RN CHECKED BY: DATE of SERVICE: 01/12/2011 TIME of SERVICE: 2:23 PM Anemia of chronic disease 11/19/20102018 Intestinal polyp 11/17/2010 10/03/2011 Overview: Distal ileum ulcerated polyp. 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) 04/22/2020 documented as of this encounter (statuses as of 06/10/2022) [facility] History of Past illness Narrative* Problem Noted Date Resolved Date Medicare annual wellness visit, subsequent 10/0202/18/2019 Encounter for long-term (current) use of medicat ions 09/07/2017 05/07/2021 Overview: Added automatically from request for surgery [id number] History of colonic polyps 09/07/20172021 Overview: Added automatically from request for surgery [id number] Gastroesophageal reflux disease 09/07/2017 05/07/2021 Overview: Added automatically from request for surgery [id number] Acute pulmonary edema 01/19/2011 01/20/2011 Overview: 01/19/2011 cardiogenic and noncardiogenic factors Atelectasis 01/19/2011 01/20/2011 Hypotension 01/18/2011 01/20/2011 Overview: 01/18/2011 goal map 65-80 Stress hyperglycemia 01/18/2011 01/20/2011 Overview: 01/18/2011 Perioperative insulin resistance and exacerbation of hyperglycemia. Control blood glucose with titration of insulin infusion 01/19/2011 adequate control goal FBG<180 Post-op pain 01/18/2011 01/20/2011 Mechanically assisted ventilation 01/18/2011 01/19/2011 Overview: 01/18/2011 optimize MV settings, WTE current setting:FiO2, 75%, peep 8 Cardiac insufficiency 01/18/2011 01/19/2011 Overview: 01/18/2011 RV mild to moderate post pump goal CI>2.3 Hypoxemia 01/18/2011 01/20/2011 discharge planning 01/12/2011 02/02/2011 Overview: age 70, lives in [place], [place]. No DC needs. / Pre-op testing 01/12/2011 01/18/2011 Overview: Images from the original note were not included. [facility] Surgeon: Zenon Sanders M.D. Informed Consent Completed: No STS Score: 1.4% CAD: Yes - CAD on Problem List: Yes Is intended procedure a CABG: Yes - is a beta isamar ordered? Yes H & P completed: Yes PA/LAT: Completed CT: Completed MRI: N/A LE US: N/A Cath: Yes - reviewed: Yes Echo:Completed EKG: Completed EF %: 61 PI's: N/A Carotid: Completed Mapping: N/A Dental: Completed PFT's: N/A Basename 01/10/11 0729 WBC 7.18 HB 13.1 HCT 41.8 PLT 192 INR 1.0 CREAT 1.35 UA: Normal HCG:N/A ABO/ABO Confirmed: Yes Blood ordered: No SA Swab: Yes - results: Pending Last Dose of Anticoagulation: vitamins Op Note: N/A Pacemaker Check: N/A Consults: GI 01/10/2001 DM: No Cardiac Surgical prep: No SIGNATURE: Dede Mims RN CHECKED BY: DATE of SERVICE: 01/12/2011 TIME of SERVICE: 2:23 PM Anemia of chronic disease 11/19/20102018 Intestinal polyp 11/17/2010 10/03/2011 Overview: Distal ileum ulcerated polyp. 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) 04/22/2020 documented as of this encounter (statuses as of 06/16/2022) [facility] History of Past illness Narrative* Problem Noted Date Resolved Date Medicare annual wellness visit, subsequent 10/0202/18/2019 Encounter for long-term (current) use of medicat ions 09/07/2017 05/07/2021 Overview: Added automatically from request for surgery [id number] History of colonic polyps 09/07/20172021 Overview: Added automatically from request for surgery [id number] Gastroesophageal reflux disease 09/07/2017 05/07/2021 Overview: Added automatically from request for surgery [id number] Acute pulmonary edema 01/19/2011 01/20/2011 Overview: 01/19/2011 cardiogenic and noncardiogenic factors Atelectasis 01/19/2011 01/20/2011 Hypotension 01/18/2011 01/20/2011 Overview: 01/18/2011 goal map 65-80 Stress hyperglycemia 01/18/2011 01/20/2011 Overview: 01/18/2011 Perioperative insulin resistance and exacerbation of hyperglycemia. Control blood glucose with titration of insulin infusion 01/19/2011 adequate control goal FBG<180 Post-op pain 01/18/2011 01/20/2011 Mechanically assisted ventilation 01/18/2011 01/19/2011 Overview: 01/18/2011 optimize MV settings, WTE current setting:FiO2, 75%, peep 8 Cardiac insufficiency 01/18/2011 01/19/2011 Overview: 01/18/2011 RV mild to moderate post pump goal CI>2.3 Hypoxemia 01/18/2011 01/20/2011 discharge planning 01/12/2011 02/02/2011 Overview: age 70, lives in [place], [place]. No DC needs. / Pre-op testing 01/12/2011 01/18/2011 Overview: Images from the original note were not included. [facility] Surgeon: Zenon Sanders M.D. Informed Consent Completed: No STS Score: 1.4% CAD: Yes - CAD on Problem List: Yes Is intended procedure a CABG: Yes - is a beta isamar ordered? Yes H & P completed: Yes PA/LAT: Completed CT: Completed MRI: N/A LE US: N/A Cath: Yes - reviewed: Yes Echo:Completed EKG: Completed EF %: 61 PI's: N/A Carotid: Completed Mapping: N/A Dental: Completed PFT's: N/A Basename 01/10/11 0729 WBC 7.18 HB 13.1 HCT 41.8 PLT 192 INR 1.0 CREAT 1.35 UA: Normal HCG:N/A ABO/ABO Confirmed: Yes Blood ordered: No SA Swab: Yes - results: Pending Last Dose of Anticoagulation: vitamins Op Note: N/A Pacemaker Check: N/A Consults: GI 01/10/2001 DM: No Cardiac Surgical prep: No SIGNATURE: Dede Mims RN CHECKED BY: DATE of SERVICE: 01/12/2011 TIME of SERVICE: 2:23 PM Anemia of chronic disease 11/19/20102018 Intestinal polyp 11/17/2010 10/03/2011 Overview: Distal ileum ulcerated polyp. Nonspecific abnormal results of liver function s yamiledy 04/04/2006 03/25/2011 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04/2014 Obesity, Class III, BMI 40-49.9 (morbid obesity) 04/22/2020 documented as of this encounter (statuses as of 06/24/2022) [facility] History of Past illness Narrative* Problem Noted Date Resolved Date Medicare annual wellness visit, subsequent 10/0202/18/2019 Encounter for long-term (current) use of medicat ions 09/07/2017 05/07/2021 Overview: Added automatically from request for surgery [id number] History of colonic polyps 09/07/20172021 Overview: Added automatically from request for surgery [id number] Gastroesophageal reflux disease 09/07/2017 05/07/2021 Overview: Added automatically from request for surgery [id number] Acute pulmonary edema 01/19/2011 01/20/2011 Overview: 01/19/2011 cardiogenic and noncardiogenic factors Atelectasis 01/19/2011 01/20/2011 Hypotension 01/18/2011 01/20/2011 Overview: 01/18/2011 goal map 65-80 Stress hyperglycemia 01/18/2011 01/20/2011 Overview: 01/18/2011 Perioperative insulin resistance and exacerbation of hyperglycemia. Control blood glucose with titration of insulin infusion 01/19/2011 adequate control goal FBG<180 Post-op pain 01/18/2011 01/20/2011 Mechanically assisted ventilation 01/18/2011 01/19/2011 Overview: 01/18/2011 optimize MV settings, WTE current setting:FiO2, 75%, peep 8 Cardiac insufficiency 01/18/2011 01/19/2011 Overview: 01/18/2011 RV mild to moderate post pump goal CI>2.3 Hypoxemia 01/18/2011 01/20/2011 discharge planning 01/12/2011 02/02/2011 Overview: age 70, lives in [place], [place]. No DC needs. / Pre-op testing 01/12/2011 01/18/2011 Overview: Images from the original note were not included. [facility] Surgeon: Zenon Sanders M.D. Informed Consent Completed: No STS Score: 1.4% CAD: Yes - CAD on Problem List: Yes Is intended procedure a CABG: Yes - is a beta isamar ordered? Yes H & P completed: Yes PA/LAT: Completed CT: Completed MRI: N/A LE US: N/A Cath: Yes - reviewed: Yes Echo:Completed EKG: Completed EF %: 61 PI's: N/A Carotid: Completed Mapping: N/A Dental: Completed PFT's: N/A Basename 01/10/11 0729 WBC 7.18 HB 13.1 HCT 41.8 PLT 192 INR 1.0 CREAT 1.35 UA: Normal HCG:N/A ABO/ABO Confirmed: Yes Blood ordered: No SA Swab: Yes - results: Pending Last Dose of Anticoagulation: vitamins Op Note: N/A Pacemaker Check: N/A Consults: GI 01/10/2001 DM: No Cardiac Surgical prep: No SIGNATURE: Dede Mims RN CHECKED BY: DATE of SERVICE: 01/12/2011 TIME of SERVICE: 2:23 PM Anemia of chronic disease 11/19/20102018 Intestinal polyp 11/17/2010 10/03/2011 Overview: Distal ileum ulcerated polyp. 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) 04/22/2020 documented as of this encounter (statuses as of 06/27/2022) [facility] History of Past illness Narrative* Problem Noted Date Resolved Date Medicare annual wellness visit, subsequent 10/0202/18/2019 Encounter for long-term (current) use of medicat ions 09/07/2017 05/07/2021 Overview: Added automatically from request for surgery [id number] History of colonic polyps 09/07/20172021 Overview: Added automatically from request for surgery [id number] Gastroesophageal reflux disease 09/07/2017 05/07/2021 Overview: Added automatically from request for surgery [id number] Acute pulmonary edema 01/19/2011 01/20/2011 Overview: 01/19/2011 cardiogenic and noncardiogenic factors Atelectasis 01/19/2011 01/20/2011 Hypotension 01/18/2011 01/20/2011 Overview: 01/18/2011 goal map 65-80 Stress hyperglycemia 01/18/2011 01/20/2011 Overview: 01/18/2011 Perioperative insulin resistance and exacerbation of hyperglycemia. Control blood glucose with titration of insulin infusion 01/19/2011 adequate control goal FBG<180 Post-op pain 01/18/2011 01/20/2011 Mechanically assisted ventilation 01/18/2011 01/19/2011 Overview: 01/18/2011 optimize MV settings, WTE current setting:FiO2, 75%, peep 8 Cardiac insufficiency 01/18/2011 01/19/2011 Overview: 01/18/2011 RV mild to moderate post pump goal CI>2.3 Hypoxemia 01/18/2011 01/20/2011 discharge planning 01/12/2011 02/02/2011 Overview: age 70, lives in [place], [place]. No DC needs. / Pre-op testing 01/12/2011 01/18/2011 Overview: Images from the original note were not included. [facility] Surgeon: Zenon Sanders M.D. Informed Consent Completed: No STS Score: 1.4% CAD: Yes - CAD on Problem List: Yes Is intended procedure a CABG: Yes - is a beta isamar ordered? Yes H & P completed: Yes PA/LAT: Completed CT: Completed MRI: N/A LE US: N/A Cath: Yes - reviewed: Yes Echo:Completed EKG: Completed EF %: 61 PI's: N/A Carotid: Completed Mapping: N/A Dental: Completed PFT's: N/A Basename 01/10/11 0729 WBC 7.18 HB 13.1 HCT 41.8 PLT 192 INR 1.0 CREAT 1.35 UA: Normal HCG:N/A ABO/ABO Confirmed: Yes Blood ordered: No SA Swab: Yes - results: Pending Last Dose of Anticoagulation: vitamins Op Note: N/A Pacemaker Check: N/A Consults: GI 01/10/2001 DM: No Cardiac Surgical prep: No SIGNATURE: Dede Mims RN CHECKED BY: DATE of SERVICE: 01/12/2011 TIME of SERVICE: 2:23 PM Anemia of chronic disease 11/19/20102018 Intestinal polyp 11/17/2010 10/03/2011 Overview: Distal ileum ulcerated polyp. 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) 04/22/2020 documented as of this encounter (statuses as of 07/05/2022) [facility]-18-2019 History of Past illness Narrative* Problem Noted Date Resolved Date Medicare annual wellness visit, subsequent 10/0202/18/2019 Encounter for long-term (current) use of medicat ions 09/07/2017 05/07/2021 Overview: Added automatically from request for surgery [id number] History of colonic polyps 09/07/20172021 Overview: Added automatically from request for surgery [id number] Gastroesophageal reflux disease 09/07/2017 05/07/2021 Overview: Added automatically from request for surgery [id number] Acute pulmonary edema 01/19/2011 01/20/2011 Overview: 01/19/2011 cardiogenic and noncardiogenic factors Atelectasis 01/19/2011 01/20/2011 Hypotension 01/18/2011 01/20/2011 Overview: 01/18/2011 goal map 65-80 Stress hyperglycemia 01/18/2011 01/20/2011 Overview: 01/18/2011 Perioperative insulin resistance and exacerbation of hyperglycemia. Control blood glucose with titration of insulin infusion 01/19/2011 adequate control goal FBG<180 Post-op pain 01/18/2011 01/20/2011 Mechanically assisted ventilation 01/18/2011 01/19/2011 Overview: 01/18/2011 optimize MV settings, WTE current setting:FiO2, 75%, peep 8 Cardiac insufficiency 01/18/2011 01/19/2011 Overview: 01/18/2011 RV mild to moderate post pump goal CI>2.3 Hypoxemia 01/18/2011 01/20/2011 discharge planning 01/12/2011 02/02/2011 Overview: age 70, lives in [place], [place]. No DC needs. / Pre-op testing 01/12/2011 01/18/2011 Overview: Images from the original note were not included. [facility] Surgeon: Zenon Sanders M.D. Informed Consent Completed: No STS Score: 1.4% CAD: Yes - CAD on Problem List: Yes Is intended procedure a CABG: Yes - is a beta isamar ordered? Yes H & P completed: Yes PA/LAT: Completed CT: Completed MRI: N/A LE US: N/A Cath: Yes - reviewed: Yes Echo:Completed EKG: Completed EF %: 61 PI's: N/A Carotid: Completed Mapping: N/A Dental: Completed PFT's: N/A Basename 01/10/11 0729 WBC 7.18 HB 13.1 HCT 41.8 PLT 192 INR 1.0 CREAT 1.35 UA: Normal HCG:N/A ABO/ABO Confirmed: Yes Blood ordered: No SA Swab: Yes - results: Pending Last Dose of Anticoagulation: vitamins Op Note: N/A Pacemaker Check: N/A Consults: GI 01/10/2001 DM: No Cardiac Surgical prep: No SIGNATURE: Dede Mims RN CHECKED BY: DATE of SERVICE: 01/12/2011 TIME of SERVICE: 2:23 PM Anemia of chronic disease 11/19/20102018 Intestinal polyp 11/17/2010 10/03/2011 Overview: Distal ileum ulcerated polyp. Nonspecific abnormal results of liver function s tud[place] 04/04/2006 03/25/2011 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/04/2014 Obesity, Class III, BMI 40-49.9 (morbid obesity) 04/22/2020 documented as of this encounter (statuses as of 07/13/2022) [facility]-18-2019 History of Past illness Narrative* Problem Noted Date Resolved Date Medicare annual wellness visit, subsequent 10/0202/18/2019 Encounter for long-term (current) use of medicat ions 09/07/2017 05/07/2021 Overview: Added automatically from request for surgery [id number] History of colonic polyps 09/07/20172021 Overview: Added automatically from request for surgery [id number] Gastroesophageal reflux disease 09/07/2017 05/07/2021 Overview: Added automatically from request for surgery [id number] Acute pulmonary edema 01/19/2011 01/20/2011 Overview: 01/19/2011 cardiogenic and noncardiogenic factors Atelectasis 01/19/2011 01/20/2011 Hypotension 01/18/2011 01/20/2011 Overview: 01/18/2011 goal map 65-80 Stress hyperglycemia 01/18/2011 01/20/2011 Overview: 01/18/2011 Perioperative insulin resistance and exacerbation of hyperglycemia. Control blood glucose with titration of insulin infusion 01/19/2011 adequate control goal FBG<180 Post-op pain 01/18/2011 01/20/2011 Mechanically assisted ventilation 01/18/2011 01/19/2011 Overview: 01/18/2011 optimize MV settings, WTE current setting:FiO2, 75%, peep 8 Cardiac insufficiency 01/18/2011 01/19/2011 Overview: 01/18/2011 RV mild to moderate post pump goal CI>2.3 Hypoxemia 01/18/2011 01/20/2011 discharge planning 01/12/2011 02/02/2011 Overview: age 70, lives in [place], [place]. No DC needs. / Pre-op testing 01/12/2011 01/18/2011 Overview: Images from the original note were not included. [facility] Surgeon: Zenon Sanders M.D. Informed Consent Completed: No STS Score: 1.4% CAD: Yes - CAD on Problem List: Yes Is intended procedure a CABG: Yes - is a beta isamar ordered? Yes H & P completed: Yes PA/LAT: Completed CT: Completed MRI: N/A LE US: N/A Cath: Yes - reviewed: Yes Echo:Completed EKG: Completed EF %: 61 PI's: N/A Carotid: Completed Mapping: N/A Dental: Completed PFT's: N/A Basename 01/10/11 0729 WBC 7.18 HB 13.1 HCT 41.8 PLT 192 INR 1.0 CREAT 1.35 UA: Normal HCG:N/A ABO/ABO Confirmed: Yes Blood ordered: No SA Swab: Yes - results: Pending Last Dose of Anticoagulation: vitamins Op Note: N/A Pacemaker Check: N/A Consults: GI 01/10/2001 DM: No Cardiac Surgical prep: No SIGNATURE: Dede Mims RN CHECKED BY: DATE of SERVICE: 01/12/2011 TIME of SERVICE: 2:23 PM Anemia of chronic disease 11/19/20102018 Intestinal polyp 11/17/2010 10/03/2011 Overview: Distal ileum ulcerated polyp. Nonspecific abnormal results of liver function s [place] 04/04/2006 03/25/2011 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/04/2014 Obesity, Class III, BMI 40-49.9 (morbid obesity) 04/22/2020 documented as of this encounter (statuses as of 07/27/2022) [facility]-18-2019 History of Past illness Narrative* Problem Noted Date Resolved Date Medicare annual wellness visit, subsequent 10/0202/18/2019 Encounter for long-term (current) use of medicat ions 09/07/2017 05/07/2021 Overview: Added automatically from request for surgery [id number] History of colonic polyps 09/07/20172021 Overview: Added automatically from request for surgery [id number] Gastroesophageal reflux disease 09/07/2017 05/07/2021 Overview: Added automatically from request for surgery [id number] Acute pulmonary edema 01/19/2011 01/20/2011 Overview: 01/19/2011 cardiogenic and noncardiogenic factors Atelectasis 01/19/2011 01/20/2011 Hypotension 01/18/2011 01/20/2011 Overview: 01/18/2011 goal map 65-80 Stress hyperglycemia 01/18/2011 01/20/2011 Overview: 01/18/2011 Perioperative insulin resistance and exacerbation of hyperglycemia. Control blood glucose with titration of insulin infusion 01/19/2011 adequate control goal FBG<180 Post-op pain 01/18/2011 01/20/2011 Mechanically assisted ventilation 01/18/2011 01/19/2011 Overview: 01/18/2011 optimize MV settings, WTE current setting:FiO2, 75%, peep 8 Cardiac insufficiency 01/18/2011 01/19/2011 Overview: 01/18/2011 RV mild to moderate post pump goal CI>2.3 Hypoxemia 01/18/2011 01/20/2011 discharge planning 01/12/2011 02/02/2011 Overview: age 70, lives in [place], [place]. No DC needs. / Pre-op testing 01/12/2011 01/18/2011 Overview: Images from the original note were not included. [facility] Surgeon: Zenon Sanders M.D. Informed Consent Completed: No STS Score: 1.4% CAD: Yes - CAD on Problem List: Yes Is intended procedure a CABG: Yes - is a beta isamar ordered? Yes H & P completed: Yes PA/LAT: Completed CT: Completed MRI: N/A LE US: N/A Cath: Yes - reviewed: Yes Echo:Completed EKG: Completed EF %: 61 PI's: N/A Carotid: Completed Mapping: N/A Dental: Completed PFT's: N/A Basename 01/10/11 0729 WBC 7.18 HB 13.1 HCT 41.8 PLT 192 INR 1.0 CREAT 1.35 UA: Normal HCG:N/A ABO/ABO Confirmed: Yes Blood ordered: No SA Swab: Yes - results: Pending Last Dose of Anticoagulation: vitamins Op Note: N/A Pacemaker Check: N/A Consults: GI 01/10/2001 DM: No Cardiac Surgical prep: No SIGNATURE: Dede Mims RN CHECKED BY: DATE of SERVICE: 01/12/2011 TIME of SERVICE: 2:23 PM Anemia of chronic disease 11/19/20102018 Intestinal polyp 11/17/2010 10/03/2011 Overview: Distal ileum ulcerated polyp. 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) 04/22/2020 documented as of this encounter (statuses as of 07/27/2022) [facility]2019 History of Past illness Narrative* Problem Noted Date Resolved Date Medicare annual wellness visit, subsequent 10/0202/18/2019 Encounter for long-term (current) use of medicat ions 09/07/2017 05/07/2021 Overview: Added automatically from request for surgery [id number] History of colonic polyps 09/07/20172021 Overview: Added automatically from request for surgery [id number] Gastroesophageal reflux disease 09/07/2017 05/07/2021 Overview: Added automatically from request for surgery [id number] Acute pulmonary edema 01/19/2011 01/20/2011 Overview: 01/19/2011 cardiogenic and noncardiogenic factors Atelectasis 01/19/2011 01/20/2011 Hypotension 01/18/2011 01/20/2011 Overview: 01/18/2011 goal map 65-80 Stress hyperglycemia 01/18/2011 01/20/2011 Overview: 01/18/2011 Perioperative insulin resistance and exacerbation of hyperglycemia. Control blood glucose with titration of insulin infusion 01/19/2011 adequate control goal FBG<180 Post-op pain 01/18/2011 01/20/2011 Mechanically assisted ventilation 01/18/2011 01/19/2011 Overview: 01/18/2011 optimize MV settings, WTE current setting:FiO2, 75%, peep 8 Cardiac insufficiency 01/18/2011 01/19/2011 Overview: 01/18/2011 RV mild to moderate post pump goal CI>2.3 Hypoxemia 01/18/2011 01/20/2011 discharge planning 01/12/2011 02/02/2011 Overview: age 70, lives in [place], [place]. No DC needs. / Pre-op testing 01/12/2011 01/18/2011 Overview: Images from the original note were not included. [facility] Surgeon: Zenon Sanders M.D. Informed Consent Completed: No STS Score: 1.4% CAD: Yes - CAD on Problem List: Yes Is intended procedure a CABG: Yes - is a beta isamar ordered? Yes H & P completed: Yes PA/LAT: Completed CT: Completed MRI: N/A LE US: N/A Cath: Yes - reviewed: Yes Echo:Completed EKG: Completed EF %: 61 PI's: N/A Carotid: Completed Mapping: N/A Dental: Completed PFT's: N/A Basename 01/10/11 0729 WBC 7.18 HB 13.1 HCT 41.8 PLT 192 INR 1.0 CREAT 1.35 UA: Normal HCG:N/A ABO/ABO Confirmed: Yes Blood ordered: No SA Swab: Yes - results: Pending Last Dose of Anticoagulation: vitamins Op Note: N/A Pacemaker Check: N/A Consults: GI 01/10/2001 DM: No Cardiac Surgical prep: No SIGNATURE: Dede Mims RN CHECKED BY: DATE of SERVICE: 01/12/2011 TIME of SERVICE: 2:23 PM Anemia of chronic disease 11/19/20102018 Intestinal polyp 11/17/2010 10/03/2011 Overview: Distal ileum ulcerated polyp. 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) 04/22/2020 documented as of this encounter (statuses as of 07/27/2022) [facility]-18-2019 History of Past illness Narrative* Problem Noted Date Resolved Date Medicare annual wellness visit, subsequent 10/0202/18/2019 Encounter for long-term (current) use of medicat ions 09/07/2017 05/07/2021 Overview: Added automatically from request for surgery [id number] History of colonic polyps 09/07/20172021 Overview: Added automatically from request for surgery [id number] Gastroesophageal reflux disease 09/07/2017 05/07/2021 Overview: Added automatically from request for surgery [id number] Acute pulmonary edema 01/19/2011 01/20/2011 Overview: 01/19/2011 cardiogenic and noncardiogenic factors Atelectasis 01/19/2011 01/20/2011 Hypotension 01/18/2011 01/20/2011 Overview: 01/18/2011 goal map 65-80 Stress hyperglycemia 01/18/2011 01/20/2011 Overview: 01/18/2011 Perioperative insulin resistance and exacerbation of hyperglycemia. Control blood glucose with titration of insulin infusion 01/19/2011 adequate control goal FBG<180 Post-op pain 01/18/2011 01/20/2011 Mechanically assisted ventilation 01/18/2011 01/19/2011 Overview: 01/18/2011 optimize MV settings, WTE current setting:FiO2, 75%, peep 8 Cardiac insufficiency 01/18/2011 01/19/2011 Overview: 01/18/2011 RV mild to moderate post pump goal CI>2.3 Hypoxemia 01/18/2011 01/20/2011 discharge planning 01/12/2011 02/02/2011 Overview: age 70, lives in [place], [place]. No DC needs. / Pre-op testing 01/12/2011 01/18/2011 Overview: Images from the original note were not included. [facility] Surgeon: Zenon Sanders M.D. Informed Consent Completed: No STS Score: 1.4% CAD: Yes - CAD on Problem List: Yes Is intended procedure a CABG: Yes - is a beta isamar ordered? Yes H & P completed: Yes PA/LAT: Completed CT: Completed MRI: N/A LE US: N/A Cath: Yes - reviewed: Yes Echo:Completed EKG: Completed EF %: 61 PI's: N/A Carotid: Completed Mapping: N/A Dental: Completed PFT's: N/A Basename 01/10/11 0729 WBC 7.18 HB 13.1 HCT 41.8 PLT 192 INR 1.0 CREAT 1.35 UA: Normal HCG:N/A ABO/ABO Confirmed: Yes Blood ordered: No SA Swab: Yes - results: Pending Last Dose of Anticoagulation: vitamins Op Note: N/A Pacemaker Check: N/A Consults: GI 01/10/2001 DM: No Cardiac Surgical prep: No SIGNATURE: Dede Mims RN CHECKED BY: DATE of SERVICE: 01/12/2011 TIME of SERVICE: 2:23 PM Anemia of chronic disease 11/19/20102018 Intestinal polyp 11/17/2010 10/03/2011 Overview: Distal ileum ulcerated polyp. Nonspecific abnormal results of liver function s [place] 04/04/2006 03/25/2011 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/04/2014 Obesity, Class III, BMI 40-49.9 (morbid obesity) 04/22/2020 documented as of this encounter (statuses as of 07/27/2022) [facility]2019 History of Past illness Narrative* Problem Noted Date Resolved Date Medicare annual wellness visit, subsequent 10/0202/18/2019 Encounter for long-term (current) use of medicat ions 09/07/2017 05/07/2021 Overview: Added automatically from request for surgery [id number] History of colonic polyps 09/07/20172021 Overview: Added automatically from request for surgery [id number] Gastroesophageal reflux disease 09/07/2017 05/07/2021 Overview: Added automatically from request for surgery [id number] Acute pulmonary edema 01/19/2011 01/20/2011 Overview: 01/19/2011 cardiogenic and noncardiogenic factors Atelectasis 01/19/2011 01/20/2011 Hypotension 01/18/2011 01/20/2011 Overview: 01/18/2011 goal map 65-80 Stress hyperglycemia 01/18/2011 01/20/2011 Overview: 01/18/2011 Perioperative insulin resistance and exacerbation of hyperglycemia. Control blood glucose with titration of insulin infusion 01/19/2011 adequate control goal FBG<180 Post-op pain 01/18/2011 01/20/2011 Mechanically assisted ventilation 01/18/2011 01/19/2011 Overview: 01/18/2011 optimize MV settings, WTE current setting:FiO2, 75%, peep 8 Cardiac insufficiency 01/18/2011 01/19/2011 Overview: 01/18/2011 RV mild to moderate post pump goal CI>2.3 Hypoxemia 01/18/2011 01/20/2011 discharge planning 01/12/2011 02/02/2011 Overview: age 70, lives in [place], [place]. No DC needs. / Pre-op testing 01/12/2011 01/18/2011 Overview: Images from the original note were not included. [facility] Surgeon: Zenon Sanders M.D. Informed Consent Completed: No STS Score: 1.4% CAD: Yes - CAD on Problem List: Yes Is intended procedure a CABG: Yes - is a beta isamar ordered? Yes H & P completed: Yes PA/LAT: Completed CT: Completed MRI: N/A LE US: N/A Cath: Yes - reviewed: Yes Echo:Completed EKG: Completed EF %: 61 PI's: N/A Carotid: Completed Mapping: N/A Dental: Completed PFT's: N/A Basename 01/10/11 0729 WBC 7.18 HB 13.1 HCT 41.8 PLT 192 INR 1.0 CREAT 1.35 UA: Normal HCG:N/A ABO/ABO Confirmed: Yes Blood ordered: No SA Swab: Yes - results: Pending Last Dose of Anticoagulation: vitamins Op Note: N/A Pacemaker Check: N/A Consults: GI 01/10/2001 DM: No Cardiac Surgical prep: No SIGNATURE: Dede Mims RN CHECKED BY: DATE of SERVICE: 01/12/2011 TIME of SERVICE: 2:23 PM Anemia of chronic disease 11/19/20102018 Intestinal polyp 11/17/2010 10/03/2011 Overview: Distal ileum ulcerated polyp. 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/2014 Obesity, Class III, BMI 40-49.9 (morbid obesity) 04/22/2020 documented as of this encounter (statuses as of 07/29/2022) [facility]2019 History of Past illness Narrative* Problem Noted Date Resolved Date Medicare annual wellness visit, subsequent 10/0202/18/2019 Encounter for long-term (current) use of medicat ions 09/07/2017 05/07/2021 Overview: Added automatically from request for surgery [id number] History of colonic polyps 09/07/20172021 Overview: Added automatically from request for surgery [id number] Gastroesophageal reflux disease 09/07/2017 05/07/2021 Overview: Added automatically from request for surgery [id number] Acute pulmonary edema 01/19/2011 01/20/2011 Overview: 01/19/2011 cardiogenic and noncardiogenic factors Atelectasis 01/19/2011 01/20/2011 Hypotension 01/18/2011 01/20/2011 Overview: 01/18/2011 goal map 65-80 Stress hyperglycemia 01/18/2011 01/20/2011 Overview: 01/18/2011 Perioperative insulin resistance and exacerbation of hyperglycemia. Control blood glucose with titration of insulin infusion 01/19/2011 adequate control goal FBG<180 Post-op pain 01/18/2011 01/20/2011 Mechanically assisted ventilation 01/18/2011 01/19/2011 Overview: 01/18/2011 optimize MV settings, WTE current setting:FiO2, 75%, peep 8 Cardiac insufficiency 01/18/2011 01/19/2011 Overview: 01/18/2011 RV mild to moderate post pump goal CI>2.3 Hypoxemia 01/18/2011 01/20/2011 discharge planning 01/12/2011 02/02/2011 Overview: age 70, lives in [place], [place]. No DC needs. / Pre-op testing 01/12/2011 01/18/2011 Overview: Images from the original note were not included. [facility] Surgeon: Zenon Sanders M.D. Informed Consent Completed: No STS Score: 1.4% CAD: Yes - CAD on Problem List: Yes Is intended procedure a CABG: Yes - is a beta isamar ordered? Yes H & P completed: Yes PA/LAT: Completed CT: Completed MRI: N/A LE US: N/A Cath: Yes - reviewed: Yes Echo:Completed EKG: Completed EF %: 61 PI's: N/A Carotid: Completed Mapping: N/A Dental: Completed PFT's: N/A Basename 01/10/11 0729 WBC 7.18 HB 13.1 HCT 41.8 PLT 192 INR 1.0 CREAT 1.35 UA: Normal HCG:N/A ABO/ABO Confirmed: Yes Blood ordered: No SA Swab: Yes - results: Pending Last Dose of Anticoagulation: vitamins Op Note: N/A Pacemaker Check: N/A Consults: GI 01/10/2001 DM: No Cardiac Surgical prep: No SIGNATURE: Dede Mims RN CHECKED BY: DATE of SERVICE: 01/12/2011 TIME of SERVICE: 2:23 PM Anemia of chronic disease 11/19/20102018 Intestinal polyp 11/17/2010 10/03/2011 Overview: Distal ileum ulcerated polyp. 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) 04/22/2020 documented as of this encounter (statuses as of 08/06/2022) [facility] History of Past illness Narrative* Problem Noted Date Resolved Date Medicare annual wellness visit, subsequent 10/0202/18/2019 Encounter for long-term (current) use of medicat ions 09/07/2017 05/07/2021 Overview: Added automatically from request for surgery [id number] History of colonic polyps 09/07/20172021 Overview: Added automatically from request for surgery [id number] Gastroesophageal reflux disease 09/07/2017 05/07/2021 Overview: Added automatically from request for surgery [id number] Acute pulmonary edema 01/19/2011 01/20/2011 Overview: 01/19/2011 cardiogenic and noncardiogenic factors Atelectasis 01/19/2011 01/20/2011 Hypotension 01/18/2011 01/20/2011 Overview: 01/18/2011 goal map 65-80 Stress hyperglycemia 01/18/2011 01/20/2011 Overview: 01/18/2011 Perioperative insulin resistance and exacerbation of hyperglycemia. Control blood glucose with titration of insulin infusion 01/19/2011 adequate control goal FBG<180 Post-op pain 01/18/2011 01/20/2011 Mechanically assisted ventilation 01/18/2011 01/19/2011 Overview: 01/18/2011 optimize MV settings, WTE current setting:FiO2, 75%, peep 8 Cardiac insufficiency 01/18/2011 01/19/2011 Overview: 01/18/2011 RV mild to moderate post pump goal CI>2.3 Hypoxemia 01/18/2011 01/20/2011 discharge planning 01/12/2011 02/02/2011 Overview: age 70, lives in [place], [place]. No DC needs. / Pre-op testing 01/12/2011 01/18/2011 Overview: Images from the original note were not included. [facility] Surgeon: Zenon Sanders M.D. Informed Consent Completed: No STS Score: 1.4% CAD: Yes - CAD on Problem List: Yes Is intended procedure a CABG: Yes - is a beta isamar ordered? Yes H & P completed: Yes PA/LAT: Completed CT: Completed MRI: N/A LE US: N/A Cath: Yes - reviewed: Yes Echo:Completed EKG: Completed EF %: 61 PI's: N/A Carotid: Completed Mapping: N/A Dental: Completed PFT's: N/A Basename 01/10/11 0729 WBC 7.18 HB 13.1 HCT 41.8 PLT 192 INR 1.0 CREAT 1.35 UA: Normal HCG:N/A ABO/ABO Confirmed: Yes Blood ordered: No SA Swab: Yes - results: Pending Last Dose of Anticoagulation: vitamins Op Note: N/A Pacemaker Check: N/A Consults: GI 01/10/2001 DM: No Cardiac Surgical prep: No SIGNATURE: Dede Mims RN CHECKED BY: DATE of SERVICE: 01/12/2011 TIME of SERVICE: 2:23 PM Anemia of chronic disease 11/19/20102018 Intestinal polyp 11/17/2010 10/03/2011 Overview: Distal ileum ulcerated polyp. 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) 04/22/2020 documented as of this encounter (statuses as of 08/10/2022) [facility] History of Past illness Narrative* Problem Noted Date Resolved Date Medicare annual wellness visit, subsequent 10/0202/18/2019 Encounter for long-term (current) use of medicat ions 09/07/2017 05/07/2021 Overview: Added automatically from request for surgery [id number] History of colonic polyps 09/07/20172021 Overview: Added automatically from request for surgery [id number] Gastroesophageal reflux disease 09/07/2017 05/07/2021 Overview: Added automatically from request for surgery [id number] Acute pulmonary edema 01/19/2011 01/20/2011 Overview: 01/19/2011 cardiogenic and noncardiogenic factors Atelectasis 01/19/2011 01/20/2011 Hypotension 01/18/2011 01/20/2011 Overview: 01/18/2011 goal map 65-80 Stress hyperglycemia 01/18/2011 01/20/2011 Overview: 01/18/2011 Perioperative insulin resistance and exacerbation of hyperglycemia. Control blood glucose with titration of insulin infusion 01/19/2011 adequate control goal FBG<180 Post-op pain 01/18/2011 01/20/2011 Mechanically assisted ventilation 01/18/2011 01/19/2011 Overview: 01/18/2011 optimize MV settings, WTE current setting:FiO2, 75%, peep 8 Cardiac insufficiency 01/18/2011 01/19/2011 Overview: 01/18/2011 RV mild to moderate post pump goal CI>2.3 Hypoxemia 01/18/2011 01/20/2011 discharge planning 01/12/2011 02/02/2011 Overview: age 70, lives in [place], [place]. No DC needs. / Pre-op testing 01/12/2011 01/18/2011 Overview: Images from the original note were not included. [facility] Surgeon: Zenon Sanders M.D. Informed Consent Completed: No STS Score: 1.4% CAD: Yes - CAD on Problem List: Yes Is intended procedure a CABG: Yes - is a beta isamar ordered? Yes H & P completed: Yes PA/LAT: Completed CT: Completed MRI: N/A LE US: N/A Cath: Yes - reviewed: Yes Echo:Completed EKG: Completed EF %: 61 PI's: N/A Carotid: Completed Mapping: N/A Dental: Completed PFT's: N/A Basename 01/10/11 0729 WBC 7.18 HB 13.1 HCT 41.8 PLT 192 INR 1.0 CREAT 1.35 UA: Normal HCG:N/A ABO/ABO Confirmed: Yes Blood ordered: No SA Swab: Yes - results: Pending Last Dose of Anticoagulation: vitamins Op Note: N/A Pacemaker Check: N/A Consults: GI 01/10/2001 DM: No Cardiac Surgical prep: No SIGNATURE: Dede Mims RN CHECKED BY: DATE of SERVICE: 01/12/2011 TIME of SERVICE: 2:23 PM Anemia of chronic disease 11/19/20102018 Intestinal polyp 11/17/2010 10/03/2011 Overview: Distal ileum ulcerated polyp. Nonspecific abnormal results of liver function s tudy 04/04/2006 03/25/2011 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/04/2014 Obesity, Class III, BMI 40-49.9 (morbid obesity) 04/22/2020 documented as of this encounter (statuses as of 08/16/2022) [facility]-18-2019 History of Past illness Narrative* Problem Noted Date Resolved Date Medicare annual wellness visit, subsequent 10/0202/18/2019 Encounter for long-term (current) use of medicat ions 09/07/2017 05/07/2021 Overview: Added automatically from request for surgery [id number] History of colonic polyps 09/07/20172021 Overview: Added automatically from request for surgery [id number] Gastroesophageal reflux disease 09/07/2017 05/07/2021 Overview: Added automatically from request for surgery [id number] Acute pulmonary edema 01/19/2011 01/20/2011 Overview: 01/19/2011 cardiogenic and noncardiogenic factors Atelectasis 01/19/2011 01/20/2011 Hypotension 01/18/2011 01/20/2011 Overview: 01/18/2011 goal map 65-80 Stress hyperglycemia 01/18/2011 01/20/2011 Overview: 01/18/2011 Perioperative insulin resistance and exacerbation of hyperglycemia. Control blood glucose with titration of insulin infusion 01/19/2011 adequate control goal FBG<180 Post-op pain 01/18/2011 01/20/2011 Mechanically assisted ventilation 01/18/2011 01/19/2011 Overview: 01/18/2011 optimize MV settings, WTE current setting:FiO2, 75%, peep 8 Cardiac insufficiency 01/18/2011 01/19/2011 Overview: 01/18/2011 RV mild to moderate post pump goal CI>2.3 Hypoxemia 01/18/2011 01/20/2011 discharge planning 01/12/2011 02/02/2011 Overview: age 70, lives in [place], [place]. No DC needs. / Pre-op testing 01/12/2011 01/18/2011 Overview: Images from the original note were not included. [facility] Surgeon: Zenon Sanders M.D. Informed Consent Completed: No STS Score: 1.4% CAD: Yes - CAD on Problem List: Yes Is intended procedure a CABG: Yes - is a beta isamar ordered? Yes H & P completed: Yes PA/LAT: Completed CT: Completed MRI: N/A LE US: N/A Cath: Yes - reviewed: Yes Echo:Completed EKG: Completed EF %: 61 PI's: N/A Carotid: Completed Mapping: N/A Dental: Completed PFT's: N/A Basename 01/10/11 0729 WBC 7.18 HB 13.1 HCT 41.8 PLT 192 INR 1.0 CREAT 1.35 UA: Normal HCG:N/A ABO/ABO Confirmed: Yes Blood ordered: No SA Swab: Yes - results: Pending Last Dose of Anticoagulation: vitamins Op Note: N/A Pacemaker Check: N/A Consults: GI 01/10/2001 DM: No Cardiac Surgical prep: No SIGNATURE: Dede Mims RN CHECKED BY: DATE of SERVICE: 01/12/2011 TIME of SERVICE: 2:23 PM Anemia of chronic disease 11/19/20102018 Intestinal polyp 11/17/2010 10/03/2011 Overview: Distal ileum ulcerated polyp. 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) 04/22/2020 documented as of this encounter (statuses as of 08/18/2022) [facility]06-18-2019 History of Past illness Narrative* Problem Noted Date Resolved Date Medicare annual wellness visit, subsequent 10/0202/18/2019 Encounter for long-term (current) use of medicat ions 09/07/2017 05/07/2021 Overview: Added automatically from request for surgery [id number] History of colonic polyps 09/07/20172021 Overview: Added automatically from request for surgery [id number] Gastroesophageal reflux disease 09/07/2017 05/07/2021 Overview: Added automatically from request for surgery [id number] Acute pulmonary edema 01/19/2011 01/20/2011 Overview: 01/19/2011 cardiogenic and noncardiogenic factors Atelectasis 01/19/2011 01/20/2011 Hypotension 01/18/2011 01/20/2011 Overview: 01/18/2011 goal map 65-80 Stress hyperglycemia 01/18/2011 01/20/2011 Overview: 01/18/2011 Perioperative insulin resistance and exacerbation of hyperglycemia. Control blood glucose with titration of insulin infusion 01/19/2011 adequate control goal FBG<180 Post-op pain 01/18/2011 01/20/2011 Mechanically assisted ventilation 01/18/2011 01/19/2011 Overview: 01/18/2011 optimize MV settings, WTE current setting:FiO2, 75%, peep 8 Cardiac insufficiency 01/18/2011 01/19/2011 Overview: 01/18/2011 RV mild to moderate post pump goal CI>2.3 Hypoxemia 01/18/2011 01/20/2011 discharge planning 01/12/2011 02/02/2011 Overview: age 70, lives in [place], [place]. No DC needs. / Pre-op testing 01/12/2011 01/18/2011 Overview: Images from the original note were not included. [facility] Surgeon: Zenon Sanders M.D. Informed Consent Completed: No STS Score: 1.4% CAD: Yes - CAD on Problem List: Yes Is intended procedure a CABG: Yes - is a beta isamar ordered? Yes H & P completed: Yes PA/LAT: Completed CT: Completed MRI: N/A LE US: N/A Cath: Yes - reviewed: Yes Echo:Completed EKG: Completed EF %: 61 PI's: N/A Carotid: Completed Mapping: N/A Dental: Completed PFT's: N/A Basename 01/10/11 0729 WBC 7.18 HB 13.1 HCT 41.8 PLT 192 INR 1.0 CREAT 1.35 UA: Normal HCG:N/A ABO/ABO Confirmed: Yes Blood ordered: No SA Swab: Yes - results: Pending Last Dose of Anticoagulation: vitamins Op Note: N/A Pacemaker Check: N/A Consults: GI 01/10/2001 DM: No Cardiac Surgical prep: No SIGNATURE: Dede Mims RN CHECKED BY: DATE of SERVICE: 01/12/2011 TIME of SERVICE: 2:23 PM Anemia of chronic disease 11/19/20102018 Intestinal polyp 11/17/2010 10/03/2011 Overview: Distal ileum ulcerated polyp. 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) 04/22/2020 documented as of this encounter (statuses as of 08/19/2022) [facility]-18-2019 History of Past illness Narrative* Problem Noted Date Resolved Date Medicare annual wellness visit, subsequent 10/0202/18/2019 Encounter for long-term (current) use of medicat ions 09/07/2017 05/07/2021 Overview: Added automatically from request for surgery [id number] History of colonic polyps 09/07/20172021 Overview: Added automatically from request for surgery [id number] Gastroesophageal reflux disease 09/07/2017 05/07/2021 Overview: Added automatically from request for surgery [id number] Acute pulmonary edema 01/19/2011 01/20/2011 Overview: 01/19/2011 cardiogenic and noncardiogenic factors Atelectasis 01/19/2011 01/20/2011 Hypotension 01/18/2011 01/20/2011 Overview: 01/18/2011 goal map 65-80 Stress hyperglycemia 01/18/2011 01/20/2011 Overview: 01/18/2011 Perioperative insulin resistance and exacerbation of hyperglycemia. Control blood glucose with titration of insulin infusion 01/19/2011 adequate control goal FBG<180 Post-op pain 01/18/2011 01/20/2011 Mechanically assisted ventilation 01/18/2011 01/19/2011 Overview: 01/18/2011 optimize MV settings, WTE current setting:FiO2, 75%, peep 8 Cardiac insufficiency 01/18/2011 01/19/2011 Overview: 01/18/2011 RV mild to moderate post pump goal CI>2.3 Hypoxemia 01/18/2011 01/20/2011 discharge planning 01/12/2011 02/02/2011 Overview: age 70, lives in [place], [place]. No DC needs. / Pre-op testing 01/12/2011 01/18/2011 Overview: Images from the original note were not included. [facility] Surgeon: Zenon Sanders M.D. Informed Consent Completed: No STS Score: 1.4% CAD: Yes - CAD on Problem List: Yes Is intended procedure a CABG: Yes - is a beta isamar ordered? Yes H & P completed: Yes PA/LAT: Completed CT: Completed MRI: N/A LE US: N/A Cath: Yes - reviewed: Yes Echo:Completed EKG: Completed EF %: 61 PI's: N/A Carotid: Completed Mapping: N/A Dental: Completed PFT's: N/A Basename 01/10/11 0729 WBC 7.18 HB 13.1 HCT 41.8 PLT 192 INR 1.0 CREAT 1.35 UA: Normal HCG:N/A ABO/ABO Confirmed: Yes Blood ordered: No SA Swab: Yes - results: Pending Last Dose of Anticoagulation: vitamins Op Note: N/A Pacemaker Check: N/A Consults: GI 01/10/2001 DM: No Cardiac Surgical prep: No SIGNATURE: Dede Mims RN CHECKED BY: DATE of SERVICE: 01/12/2011 TIME of SERVICE: 2:23 PM Anemia of chronic disease 11/19/20102018 Intestinal polyp 11/17/2010 10/03/2011 Overview: Distal ileum ulcerated polyp. Nonspecific abnormal results of liver function s tudy 04/04/2006 03/25/2011 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/04/2014 Obesity, Class III, BMI 40-49.9 (morbid obesity) 04/22/2020 documented as of this encounter (statuses as of 08/20/2022) [facility]-18-2019 History of Past illness Narrative* Problem Noted Date Resolved Date Medicare annual wellness visit, subsequent 10/0202/18/2019 Encounter for long-term (current) use of medicat ions 09/07/2017 05/07/2021 Overview: Added automatically from request for surgery [id number] History of colonic polyps 09/07/20172021 Overview: Added automatically from request for surgery [id number] Gastroesophageal reflux disease 09/07/2017 05/07/2021 Overview: Added automatically from request for surgery [id number] Acute pulmonary edema 01/19/2011 01/20/2011 Overview: 01/19/2011 cardiogenic and noncardiogenic factors Atelectasis 01/19/2011 01/20/2011 Hypotension 01/18/2011 01/20/2011 Overview: 01/18/2011 goal map 65-80 Stress hyperglycemia 01/18/2011 01/20/2011 Overview: 01/18/2011 Perioperative insulin resistance and exacerbation of hyperglycemia. Control blood glucose with titration of insulin infusion 01/19/2011 adequate control goal FBG<180 Post-op pain 01/18/2011 01/20/2011 Mechanically assisted ventilation 01/18/2011 01/19/2011 Overview: 01/18/2011 optimize MV settings, WTE current setting:FiO2, 75%, peep 8 Cardiac insufficiency 01/18/2011 01/19/2011 Overview: 01/18/2011 RV mild to moderate post pump goal CI>2.3 Hypoxemia 01/18/2011 01/20/2011 discharge planning 01/12/2011 02/02/2011 Overview: age 70, lives in [place], [place]. No DC needs. / Pre-op testing 01/12/2011 01/18/2011 Overview: Images from the original note were not included. [facility] Surgeon: Zenon Sanders M.D. Informed Consent Completed: No STS Score: 1.4% CAD: Yes - CAD on Problem List: Yes Is intended procedure a CABG: Yes - is a beta isamar ordered? Yes H & P completed: Yes PA/LAT: Completed CT: Completed MRI: N/A LE US: N/A Cath: Yes - reviewed: Yes Echo:Completed EKG: Completed EF %: 61 PI's: N/A Carotid: Completed Mapping: N/A Dental: Completed PFT's: N/A Basename 01/10/11 0729 WBC 7.18 HB 13.1 HCT 41.8 PLT 192 INR 1.0 CREAT 1.35 UA: Normal HCG:N/A ABO/ABO Confirmed: Yes Blood ordered: No SA Swab: Yes - results: Pending Last Dose of Anticoagulation: vitamins Op Note: N/A Pacemaker Check: N/A Consults: GI 01/10/2001 DM: No Cardiac Surgical prep: No SIGNATURE: Dede Mims RN CHECKED BY: DATE of SERVICE: 01/12/2011 TIME of SERVICE: 2:23 PM Anemia of chronic disease 11/19/20102018 Intestinal polyp 11/17/2010 10/03/2011 Overview: Distal ileum ulcerated polyp. Nonspecific abnormal results of liver function s tudy 04/04/2006 03/25/2011 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 09/0 04/2014 Obesity, Class III, BMI 40-49.9 (morbid obesity) 04/22/2020 documented as of this encounter (statuses as of 08/22/2022) [facility]06-18-2019 History of Past illness Narrative* Problem Noted Date Resolved Date Medicare annual wellness visit, subsequent 10/0202/18/2019 Encounter for long-term (current) use of medicat ions 09/07/2017 05/07/2021 Overview: Added automatically from request for surgery [id number] History of colonic polyps 09/07/20172021 Overview: Added automatically from request for surgery [id number] Gastroesophageal reflux disease 09/07/2017 05/07/2021 Overview: Added automatically from request for surgery [id number] Acute pulmonary edema 01/19/2011 01/20/2011 Overview: 01/19/2011 cardiogenic and noncardiogenic factors Atelectasis 01/19/2011 01/20/2011 Hypotension 01/18/2011 01/20/2011 Overview: 01/18/2011 goal map 65-80 Stress hyperglycemia 01/18/2011 01/20/2011 Overview: 01/18/2011 Perioperative insulin resistance and exacerbation of hyperglycemia. Control blood glucose with titration of insulin infusion 01/19/2011 adequate control goal FBG<180 Post-op pain 01/18/2011 01/20/2011 Mechanically assisted ventilation 01/18/2011 01/19/2011 Overview: 01/18/2011 optimize MV settings, WTE current setting:FiO2, 75%, peep 8 Cardiac insufficiency 01/18/2011 01/19/2011 Overview: 01/18/2011 RV mild to moderate post pump goal CI>2.3 Hypoxemia 01/18/2011 01/20/2011 discharge planning 01/12/2011 02/02/2011 Overview: age 70, lives in [place], [place]. No DC needs. / Pre-op testing 01/12/2011 01/18/2011 Overview: Images from the original note were not included. [facility] Surgeon: Zenon Sanders M.D. Informed Consent Completed: No STS Score: 1.4% CAD: Yes - CAD on Problem List: Yes Is intended procedure a CABG: Yes - is a beta isamar ordered? Yes H & P completed: Yes PA/LAT: Completed CT: Completed MRI: N/A LE US: N/A Cath: Yes - reviewed: Yes Echo:Completed EKG: Completed EF %: 61 PI's: N/A Carotid: Completed Mapping: N/A Dental: Completed PFT's: N/A Basename 01/10/11 0729 WBC 7.18 HB 13.1 HCT 41.8 PLT 192 INR 1.0 CREAT 1.35 UA: Normal HCG:N/A ABO/ABO Confirmed: Yes Blood ordered: No SA Swab: Yes - results: Pending Last Dose of Anticoagulation: vitamins Op Note: N/A Pacemaker Check: N/A Consults: GI 01/10/2001 DM: No Cardiac Surgical prep: No SIGNATURE: Ddee Mims RN CHECKED BY: DATE of SERVICE: 01/12/2011 TIME of SERVICE: 2:23 PM Anemia of chronic disease 11/19/20102018 Intestinal polyp 11/17/2010 10/03/2011 Overview: Distal ileum ulcerated polyp. Nonspecific abnormal results of liver function s yamiledy 04/04/2006 03/25/2011 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04/2014 Obesity, Class III, BMI 40-49.9 (morbid obesity) 04/22/2020 documented as of this encounter (statuses as of 09/15/2022) [facility]2019 History of Past illness Narrative* Problem Noted Date Resolved Date Medicare annual wellness visit, subsequent 10/0202/18/2019 Encounter for long-term (current) use of medicat ions 09/07/2017 05/07/2021 Overview: Added automatically from request for surgery [id number] History of colonic polyps 09/07/20172021 Overview: Added automatically from request for surgery [id number] Gastroesophageal reflux disease 09/07/2017 05/07/2021 Overview: Added automatically from request for surgery [id number] Acute pulmonary edema 01/19/2011 01/20/2011 Overview: 01/19/2011 cardiogenic and noncardiogenic factors Atelectasis 01/19/2011 01/20/2011 Hypotension 01/18/2011 01/20/2011 Overview: 01/18/2011 goal map 65-80 Stress hyperglycemia 01/18/2011 01/20/2011 Overview: 01/18/2011 Perioperative insulin resistance and exacerbation of hyperglycemia. Control blood glucose with titration of insulin infusion 01/19/2011 adequate control goal FBG<180 Post-op pain 01/18/2011 01/20/2011 Mechanically assisted ventilation 01/18/2011 01/19/2011 Overview: 01/18/2011 optimize MV settings, WTE current setting:FiO2, 75%, peep 8 Cardiac insufficiency 01/18/2011 01/19/2011 Overview: 01/18/2011 RV mild to moderate post pump goal CI>2.3 Hypoxemia 01/18/2011 01/20/2011 discharge planning 01/12/2011 02/02/2011 Overview: age 70, lives in [place], [place]. No DC needs. / Pre-op testing 01/12/2011 01/18/2011 Overview: Images from the original note were not included. [facility] Surgeon: Zenon Sanders M.D. Informed Consent Completed: No STS Score: 1.4% CAD: Yes - CAD on Problem List: Yes Is intended procedure a CABG: Yes - is a beta isamar ordered? Yes H & P completed: Yes PA/LAT: Completed CT: Completed MRI: N/A LE US: N/A Cath: Yes - reviewed: Yes Echo:Completed EKG: Completed EF %: 61 PI's: N/A Carotid: Completed Mapping: N/A Dental: Completed PFT's: N/A Basename 01/10/11 0729 WBC 7.18 HB 13.1 HCT 41.8 PLT 192 INR 1.0 CREAT 1.35 UA: Normal HCG:N/A ABO/ABO Confirmed: Yes Blood ordered: No SA Swab: Yes - results: Pending Last Dose of Anticoagulation: vitamins Op Note: N/A Pacemaker Check: N/A Consults: GI 01/10/2001 DM: No Cardiac Surgical prep: No SIGNATURE: Dede Mims RN CHECKED BY: DATE of SERVICE: 01/12/2011 TIME of SERVICE: 2:23 PM Anemia of chronic disease 11/19/20102018 Intestinal polyp 11/17/2010 10/03/2011 Overview: Distal ileum ulcerated polyp. 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) 04/22/2020 documented as of this encounter (statuses as of 09/20/2022) [facility]2019 History of Past illness Narrative* Problem Noted Date Resolved Date Medicare annual wellness visit, subsequent 10/0202/18/2019 Encounter for long-term (current) use of medicat ions 09/07/2017 05/07/2021 Overview: Added automatically from request for surgery [id number] History of colonic polyps 09/07/20172021 Overview: Added automatically from request for surgery [id number] Gastroesophageal reflux disease 09/07/2017 05/07/2021 Overview: Added automatically from request for surgery [id number] Acute pulmonary edema 01/19/2011 01/20/2011 Overview: 01/19/2011 cardiogenic and noncardiogenic factors Atelectasis 01/19/2011 01/20/2011 Hypotension 01/18/2011 01/20/2011 Overview: 01/18/2011 goal map 65-80 Stress hyperglycemia 01/18/2011 01/20/2011 Overview: 01/18/2011 Perioperative insulin resistance and exacerbation of hyperglycemia. Control blood glucose with titration of insulin infusion 01/19/2011 adequate control goal FBG<180 Post-op pain 01/18/2011 01/20/2011 Mechanically assisted ventilation 01/18/2011 01/19/2011 Overview: 01/18/2011 optimize MV settings, WTE current setting:FiO2, 75%, peep 8 Cardiac insufficiency 01/18/2011 01/19/2011 Overview: 01/18/2011 RV mild to moderate post pump goal CI>2.3 Hypoxemia 01/18/2011 01/20/2011 discharge planning 01/12/2011 02/02/2011 Overview: age 70, lives in [place], [place]. No DC needs. / Pre-op testing 01/12/2011 01/18/2011 Overview: Images from the original note were not included. [facility] Surgeon: Zenon Sanders M.D. Informed Consent Completed: No STS Score: 1.4% CAD: Yes - CAD on Problem List: Yes Is intended procedure a CABG: Yes - is a beta isamar ordered? Yes H & P completed: Yes PA/LAT: Completed CT: Completed MRI: N/A LE US: N/A Cath: Yes - reviewed: Yes Echo:Completed EKG: Completed EF %: 61 PI's: N/A Carotid: Completed Mapping: N/A Dental: Completed PFT's: N/A Basename 01/10/11 0729 WBC 7.18 HB 13.1 HCT 41.8 PLT 192 INR 1.0 CREAT 1.35 UA: Normal HCG:N/A ABO/ABO Confirmed: Yes Blood ordered: No SA Swab: Yes - results: Pending Last Dose of Anticoagulation: vitamins Op Note: N/A Pacemaker Check: N/A Consults: GI 01/10/2001 DM: No Cardiac Surgical prep: No SIGNATURE: Dede Mims RN CHECKED BY: DATE of SERVICE: 01/12/2011 TIME of SERVICE: 2:23 PM Anemia of chronic disease 11/19/20102018 Intestinal polyp 11/17/2010 10/03/2011 Overview: Distal ileum ulcerated polyp. 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) 04/22/2020 documented as of this encounter (statuses as of 09/20/2022) [facility] History of Past illness Narrative* Problem Noted Date Resolved Date Medicare annual wellness visit, subsequent 10/0202/18/2019 Encounter for long-term (current) use of medicat ions 09/07/2017 05/07/2021 Overview: Added automatically from request for surgery [id number] History of colonic polyps 09/07/20172021 Overview: Added automatically from request for surgery [id number] Gastroesophageal reflux disease 09/07/2017 05/07/2021 Overview: Added automatically from request for surgery [id number] Acute pulmonary edema 01/19/2011 01/20/2011 Overview: 01/19/2011 cardiogenic and noncardiogenic factors Atelectasis 01/19/2011 01/20/2011 Hypotension 01/18/2011 01/20/2011 Overview: 01/18/2011 goal map 65-80 Stress hyperglycemia 01/18/2011 01/20/2011 Overview: 01/18/2011 Perioperative insulin resistance and exacerbation of hyperglycemia. Control blood glucose with titration of insulin infusion 01/19/2011 adequate control goal FBG<180 Post-op pain 01/18/2011 01/20/2011 Mechanically assisted ventilation 01/18/2011 01/19/2011 Overview: 01/18/2011 optimize MV settings, WTE current setting:FiO2, 75%, peep 8 Cardiac insufficiency 01/18/2011 01/19/2011 Overview: 01/18/2011 RV mild to moderate post pump goal CI>2.3 Hypoxemia 01/18/2011 01/20/2011 discharge planning 01/12/2011 02/02/2011 Overview: age 70, lives in [place], [place]. No DC needs. / Pre-op testing 01/12/2011 01/18/2011 Overview: Images from the original note were not included. [facility] Surgeon: Zenon Sanders M.D. Informed Consent Completed: No STS Score: 1.4% CAD: Yes - CAD on Problem List: Yes Is intended procedure a CABG: Yes - is a beta isamar ordered? Yes H & P completed: Yes PA/LAT: Completed CT: Completed MRI: N/A LE US: N/A Cath: Yes - reviewed: Yes Echo:Completed EKG: Completed EF %: 61 PI's: N/A Carotid: Completed Mapping: N/A Dental: Completed PFT's: N/A Basename 01/10/11 0729 WBC 7.18 HB 13.1 HCT 41.8 PLT 192 INR 1.0 CREAT 1.35 UA: Normal HCG:N/A ABO/ABO Confirmed: Yes Blood ordered: No SA Swab: Yes - results: Pending Last Dose of Anticoagulation: vitamins Op Note: N/A Pacemaker Check: N/A Consults: GI 01/10/2001 DM: No Cardiac Surgical prep: No SIGNATURE: Dede Mims RN CHECKED BY: DATE of SERVICE: 01/12/2011 TIME of SERVICE: 2:23 PM Anemia of chronic disease 11/19/20102018 Intestinal polyp 11/17/2010 10/03/2011 Overview: Distal ileum ulcerated polyp. 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) 04/22/2020 documented as of this encounter (statuses as of 09/22/2022) [facility] History of Past illness Narrative* Problem Noted Date Resolved Date Medicare annual wellness visit, subsequent 10/0202/18/2019 Encounter for long-term (current) use of medicat ions 09/07/2017 05/07/2021 Overview: Added automatically from request for surgery [id number] History of colonic polyps 09/07/20172021 Overview: Added automatically from request for surgery [id number] Gastroesophageal reflux disease 09/07/2017 05/07/2021 Overview: Added automatically from request for surgery [id number] Acute pulmonary edema 01/19/2011 01/20/2011 Overview: 01/19/2011 cardiogenic and noncardiogenic factors Atelectasis 01/19/2011 01/20/2011 Hypotension 01/18/2011 01/20/2011 Overview: 01/18/2011 goal map 65-80 Stress hyperglycemia 01/18/2011 01/20/2011 Overview: 01/18/2011 Perioperative insulin resistance and exacerbation of hyperglycemia. Control blood glucose with titration of insulin infusion 01/19/2011 adequate control goal FBG<180 Post-op pain 01/18/2011 01/20/2011 Mechanically assisted ventilation 01/18/2011 01/19/2011 Overview: 01/18/2011 optimize MV settings, WTE current setting:FiO2, 75%, peep 8 Cardiac insufficiency 01/18/2011 01/19/2011 Overview: 01/18/2011 RV mild to moderate post pump goal CI>2.3 Hypoxemia 01/18/2011 01/20/2011 discharge planning 01/12/2011 02/02/2011 Overview: age 70, lives in [place], [place]. No DC needs. / Pre-op testing 01/12/2011 01/18/2011 Overview: Images from the original note were not included. [facility] Surgeon: Zenon Sanders M.D. Informed Consent Completed: No STS Score: 1.4% CAD: Yes - CAD on Problem List: Yes Is intended procedure a CABG: Yes - is a beta isamar ordered? Yes H & P completed: Yes PA/LAT: Completed CT: Completed MRI: N/A LE US: N/A Cath: Yes - reviewed: Yes Echo:Completed EKG: Completed EF %: 61 PI's: N/A Carotid: Completed Mapping: N/A Dental: Completed PFT's: N/A Basename 01/10/11 0729 WBC 7.18 HB 13.1 HCT 41.8 PLT 192 INR 1.0 CREAT 1.35 UA: Normal HCG:N/A ABO/ABO Confirmed: Yes Blood ordered: No SA Swab: Yes - results: Pending Last Dose of Anticoagulation: vitamins Op Note: N/A Pacemaker Check: N/A Consults: GI 01/10/2001 DM: No Cardiac Surgical prep: No SIGNATURE: Dede Mims RN CHECKED BY: DATE of SERVICE: 01/12/2011 TIME of SERVICE: 2:23 PM Anemia of chronic disease 11/19/20102018 Intestinal polyp 11/17/2010 10/03/2011 Overview: Distal ileum ulcerated polyp. 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) 04/22/2020 documented as of this encounter (statuses as of 09/30/2022) [facility] History of Past illness Narrative* Problem Noted Date Resolved Date Medicare annual wellness visit, subsequent 10/0202/18/2019 Encounter for long-term (current) use of medicat ions 09/07/2017 05/07/2021 Overview: Added automatically from request for surgery [id number] History of colonic polyps 09/07/20172021 Overview: Added automatically from request for surgery [id number] Gastroesophageal reflux disease 09/07/2017 05/07/2021 Overview: Added automatically from request for surgery [id number] Acute pulmonary edema 01/19/2011 01/20/2011 Overview: 01/19/2011 cardiogenic and noncardiogenic factors Atelectasis 01/19/2011 01/20/2011 Hypotension 01/18/2011 01/20/2011 Overview: 01/18/2011 goal map 65-80 Stress hyperglycemia 01/18/2011 01/20/2011 Overview: 01/18/2011 Perioperative insulin resistance and exacerbation of hyperglycemia. Control blood glucose with titration of insulin infusion 01/19/2011 adequate control goal FBG<180 Post-op pain 01/18/2011 01/20/2011 Mechanically assisted ventilation 01/18/2011 01/19/2011 Overview: 01/18/2011 optimize MV settings, WTE current setting:FiO2, 75%, peep 8 Cardiac insufficiency 01/18/2011 01/19/2011 Overview: 01/18/2011 RV mild to moderate post pump goal CI>2.3 Hypoxemia 01/18/2011 01/20/2011 discharge planning 01/12/2011 02/02/2011 Overview: age 70, lives in [place], [place]. No DC needs. / Pre-op testing 01/12/2011 01/18/2011 Overview: Images from the original note were not included. [facility] Surgeon: Zenon Sanders M.D. Informed Consent Completed: No STS Score: 1.4% CAD: Yes - CAD on Problem List: Yes Is intended procedure a CABG: Yes - is a beta isamar ordered? Yes H & P completed: Yes PA/LAT: Completed CT: Completed MRI: N/A LE US: N/A Cath: Yes - reviewed: Yes Echo:Completed EKG: Completed EF %: 61 PI's: N/A Carotid: Completed Mapping: N/A Dental: Completed PFT's: N/A Basename 01/10/11 0729 WBC 7.18 HB 13.1 HCT 41.8 PLT 192 INR 1.0 CREAT 1.35 UA: Normal HCG:N/A ABO/ABO Confirmed: Yes Blood ordered: No SA Swab: Yes - results: Pending Last Dose of Anticoagulation: vitamins Op Note: N/A Pacemaker Check: N/A Consults: GI 01/10/2001 DM: No Cardiac Surgical prep: No SIGNATURE: Dede Mims RN CHECKED BY: DATE of SERVICE: 01/12/2011 TIME of SERVICE: 2:23 PM Anemia of chronic disease 11/19/20102018 Intestinal polyp 11/17/2010 10/03/2011 Overview: Distal ileum ulcerated polyp. 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) 04/22/2020 documented as of this encounter (statuses as of 10/21/2022) [facility] History of Past illness Narrative* Problem Noted Date Diagnosed Date Resolved Date Medicare annual wellness visit, subsequent 10/02/2018 02/18/2019 Encounter for long-term (cur rent) use of medications 09/07/2017 05/07/2021 Overview: Added automatically from request for surgery [id number] History of colonic polyps 09/07/2017 Overview: Added automatically from request for surgery [id number] Gastroesophageal reflux disease 09/07/2017 05/07/2021 Overview: Added automatically from request for surgery [id number] Acute pulmonary edema 01/19/20112010 Overview: 01/19/2011 cardiogenic and noncardiogenic factors Atelectasis 01/19/2011 01/20/2011 Hypotension 01/18/2011 01/20/2011 Overview: 01/18/2011 goal map 65-80 Stress hyperglycemia 01/18/2011 011 Overview: 01/18/2011 Perioperative insulin resistance and exacerbation of hyperglycemia. Control blood glucose with titration of insulin infusion 01/19/2011 adequate control goal FBG<180 Post-op pain 01/18/2011 01/20/2011 Mechanically assisted ventilation 01/18/2011 01/19/2011 Overview: 01/18/2011 optimize MV settings, WTE current setting:FiO2, 75%, peep 8 Cardiac insufficiency 01/18/20112010 Overview: 01/18/2011 RV mild to moderate post pump goal CI>2.3 Hypoxemia 01/18/2011 01/20/2011 discharge planning 01/12/2011 1 Overview: age 70, lives in [place], [place]. No DC needs. / Pre-op testing 01/12/2011 01/18/2011 Overview: Images from the original note were not included. [facility] Surgeon: Zenon Sanders M.D. Informed Consent Completed: No STS Score: 1.4% CAD: Yes - CAD on Problem List: Yes Is intended procedure a CABG: Yes - is a beta isamar ordered? Yes H & P completed: Yes PA/LAT: Completed CT: Completed MRI: N/A LE US: N/A Cath: Yes - reviewed: Yes Echo:Completed EKG: Completed EF %: 61 PI's: N/A Carotid: Completed Mapping: N/A Dental: Completed PFT's: N/A Basename 01/10/11 0729 WBC 7.18 HB 13.1 HCT 41.8 PLT 192 INR 1.0 CREAT 1.35 UA: Normal HCG:N/A ABO/ABO Confirmed: Yes Blood ordered: No SA Swab: Yes - results: Pending Last Dose of Anticoagulation: vitamins Op Note: N/A Pacemaker Check: N/A Consults: GI 01/10/2001 DM: No Cardiac Surgical prep: No SIGNATURE: Dede Mims RN CHECKED BY: DATE of SERVICE: 01/12/2011 TIME of SERVICE: 2:23 PM Anemia of chronic disease 11/19/2010 Intestinal polyp 11/17/2010 10/03/2011 Overview: Distal ileum ulcerated polyp. 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) 04/22/2020 documented as of this encounter (statuses as of 11/01/2022) [facility] History of Past illness Narrative* Problem Noted Date Diagnosed Date Resolved Date Medicare annual wellness visit, subsequent 10/02/2018 02/18/2019 Encounter for long-term (cur rent) use of medications 09/07/2017 05/07/2021 Overview: Added automatically from request for surgery [id number] History of colonic polyps 09/07/2017 Overview: Added automatically from request for surgery [id number] Gastroesophageal reflux disease 09/07/2017 05/07/2021 Overview: Added automatically from request for surgery [id number] Acute pulmonary edema 01/19/20112010 Overview: 01/19/2011 cardiogenic and noncardiogenic factors Atelectasis 01/19/2011 01/20/2011 Hypotension 01/18/2011 01/20/2011 Overview: 01/18/2011 goal map 65-80 Stress hyperglycemia 01/18/2011 011 Overview: 01/18/2011 Perioperative insulin resistance and exacerbation of hyperglycemia. Control blood glucose with titration of insulin infusion 01/19/2011 adequate control goal FBG<180 Post-op pain 01/18/2011 01/20/2011 Mechanically assisted ventilation 01/18/2011 01/19/2011 Overview: 01/18/2011 optimize MV settings, WTE current setting:FiO2, 75%, peep 8 Cardiac insufficiency 01/18/20112010 Overview: 01/18/2011 RV mild to moderate post pump goal CI>2.3 Hypoxemia 01/18/2011 01/20/2011 discharge planning 01/12/2011 1 Overview: age 70, lives in [place], [place]. No DC needs. / Pre-op testing 01/12/2011 01/18/2011 Overview: Images from the original note were not included. [facility] Surgeon: Zenon Sanders M.D. Informed Consent Completed: No STS Score: 1.4% CAD: Yes - CAD on Problem List: Yes Is intended procedure a CABG: Yes - is a beta isamar ordered? Yes H & P completed: Yes PA/LAT: Completed CT: Completed MRI: N/A LE US: N/A Cath: Yes - reviewed: Yes Echo:Completed EKG: Completed EF %: 61 PI's: N/A Carotid: Completed Mapping: N/A Dental: Completed PFT's: N/A Basename 01/10/11 0729 WBC 7.18 HB 13.1 HCT 41.8 PLT 192 INR 1.0 CREAT 1.35 UA: Normal HCG:N/A ABO/ABO Confirmed: Yes Blood ordered: No SA Swab: Yes - results: Pending Last Dose of Anticoagulation: vitamins Op Note: N/A Pacemaker Check: N/A Consults: GI 01/10/2001 DM: No Cardiac Surgical prep: No SIGNATURE: Dede Mims RN CHECKED BY: DATE of SERVICE: 01/12/2011 TIME of SERVICE: 2:23 PM Anemia of chronic disease 11/19/2010 Intestinal polyp 11/17/2010 10/03/2011 Overview: Distal ileum ulcerated polyp. 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) 04/22/2020 documented as of this encounter (statuses as of 11/03/2022) [facility] History of Past illness Narrative* Problem Noted Date Diagnosed Date Resolved Date Medicare annual wellness visit, subsequent 10/02/2018 02/18/2019 Encounter for long-term (cur rent) use of medications 09/07/2017 05/07/2021 Overview: Added automatically from request for surgery [id number] History of colonic polyps 09/07/2017 Overview: Added automatically from request for surgery [id number] Gastroesophageal reflux disease 09/07/2017 05/07/2021 Overview: Added automatically from request for surgery [id number] Acute pulmonary edema 01/19/20112010 Overview: 01/19/2011 cardiogenic and noncardiogenic factors Atelectasis 01/19/2011 01/20/2011 Hypotension 01/18/2011 01/20/2011 Overview: 01/18/2011 goal map 65-80 Stress hyperglycemia 01/18/2011 011 Overview: 01/18/2011 Perioperative insulin resistance and exacerbation of hyperglycemia. Control blood glucose with titration of insulin infusion 01/19/2011 adequate control goal FBG<180 Post-op pain 01/18/2011 01/20/2011 Mechanically assisted ventilation 01/18/2011 01/19/2011 Overview: 01/18/2011 optimize MV settings, WTE current setting:FiO2, 75%, peep 8 Cardiac insufficiency 01/18/20112010 Overview: 01/18/2011 RV mild to moderate post pump goal CI>2.3 Hypoxemia 01/18/2011 01/20/2011 discharge planning 01/12/2011 1 Overview: age 70, lives in [place], [place]. No DC needs. / Pre-op testing 01/12/2011 01/18/2011 Overview: Images from the original note were not included. [facility] PRE-[facility] CHECKLIST Surgeon: Zenon Sanders M.D. Informed Consent Completed: No STS Score: 1.4% CAD: Yes - CAD on Problem List: Yes Is intended procedure a CABG: Yes - is a beta isamar ordered? Yes H & P completed: Yes PA/LAT: Completed CT: Completed MRI: N/A LE US: N/A Cath: Yes - reviewed: Yes Echo:Completed EKG: Completed EF %: 61 PI's: N/A Carotid: Completed Mapping: N/A Dental: Completed PFT's: N/A Basename 01/10/11 0729 WBC 7.18 HB 13.1 HCT 41.8 PLT 192 INR 1.0 CREAT 1.35 UA: Normal HCG:N/A ABO/ABO Confirmed: Yes Blood ordered: No SA Swab: Yes - results: Pending Last Dose of Anticoagulation: vitamins Op Note: N/A Pacemaker Check: N/A Consults: GI 01/10/2001 DM: No Cardiac Surgical prep: No SIGNATURE: Dede Mims RN CHECKED BY: DATE of SERVICE: 01/12/2011 TIME of SERVICE: 2:23 PM Anemia of chronic disease 11/19/2010 Intestinal polyp 11/17/2010 10/03/2011 Overview: Distal ileum ulcerated polyp. 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) 04/22/2020 documented as of this encounter (statuses as of 11/04/2022) [facility] Diagnosis Essential hypertension- Primary Unspecified essential hypertension [facility] this encounter [facility]* Diagnosis Gastroesophageal reflux disease, unspecified whether esophagitis present Essential hypertension Unspecified essential hypertension Mixed hyperlipidemia Aortic valve disorder Aortic valve disorders Coronary artery disease involving tejon coronary artery of tejon heart without angina pectoris [facility] this encounter [facility] Diagnosis Adenomatous polyp of colon, unspecified part of colon- Primary Impaired fasting glucose Stage 3 chronic kidney disease, unspecified whether stage 3a or 3b CKD (HCC) Essential hypertension Unspecified essential hypertension Anemia of chronic disease Anemia of other chronic disease Thrombocytopenia (HCC) Thrombocytopenia, unspecified [facility] Diagnosis Peripheral polyneuropathy- Primary Unspecified hereditary and idiopathic peripheral neuropathy Frequent falls Personal history of fall Contusion of hip, unspecified laterality, subsequent encounter Muscular weakness Muscle weakness (generalized) Abnormality of gait [facility] Diagnosis Frequent falls- Primary Personal history of fall Peripheral polyneuropathy Unspecified hereditary and idiopathic peripheral neuropathy [facility] Diagnosis Peripheral polyneuropathy- Primary Unspecified hereditary and idiopathic peripheral neuropathy Abnormality of gait Stage 3a chronic kidney disease (HCC) Essential hypertension Unspecified essential hypertension [facility] Diagnosis Personal history of falling, presenting hazards to health- Primary Personal history of fall Peripheral polyneuropathy Unspecified hereditary and idiopathic peripheral neuropathy Abnormality of gait [facility] Diagnosis Monoclonal gammopathy- Primary Monoclonal paraproteinemia Macrocytic anemia Unspecified deficiency anemia Thrombocytopenia (HCC) Thrombocytopenia, unspecified [facility] Diagnosis Cirrhosis of liver without ascites, unspecified hepatic cirrhosis type (HCC)- Primary Splenomegaly Liver lesion Other specified disorders of liver Metabolic syndrome Dysmetabolic Syndrome X Lower extremity edema Edema Healthcare maintenance Routine general medical examination at a health care facility [facility] Diagnosis Cirrhosis of liver without ascites, unspecified hepatic cirrhosis type (HCC)- Primary Claustrophobia Other isolated or specific phobias [facility] Diagnosis Stasis dermatitis of both legs- Primary Varicose veins of lower extremities with inflammation Local skin infection Unspecified local infection of skin and subcutaneous tissue Urge incontinence of urine Urge incontinence Peripheral polyneuropathy Unspecified hereditary and idiopathic peripheral neuropathy [facility] Diagnosis 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 [facility] Diagnosis 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 [facility] Diagnosis Iron deficiency anemia, unspecified iron deficiency anemia type- Primary History of colonic polyps Personal history of colonic polyps History of cirrhosis Personal history of other diseases of digestive system [facility] Diagnosis Cirrhosis of liver without ascites, unspecified hepatic cirrhosis type (HCC)- Primary Liver mass Unspecified disorder of liver Splenomegaly [facility] 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 [facility] Diagnosis 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 [facility] Diagnosis 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 [facility] Diagnosis 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 [facility] Diagnosis 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 Liver mass Unspecified disorder of liver Splenomegaly Hypercalcemia [facility] Diagnosis MGUS (monoclonal gammopathy of unknown significance)- Primary 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 Thrombocytopenia (HCC) Thrombocytopenia, unspecified Iron deficiency anemia due to chronic blood loss Iron deficiency anemia secondary to blood loss (chronic) Hyperparathyroidism (HCC) Hyperparathyroidism, unspecified Other cirrhosis of liver (HCC) [facility] Diagnosis Urge incontinence of urine Urge incontinence [facility] Diagnosis Venous stasis ulcer of right calf limited to breakdown of skin without varicose veins (HCC)- Primary Cellulitis of right lower leg Cellulitis and abscess of leg, except foot [facility] Diagnosis Venous stasis ulcer of other part of right lower leg limited to breakdown of skin without varicose veins (HCC)- Primary Rash Rash and other nonspecific skin eruption Partial thickness burn of left hand, unspecified site of hand, initial encounter Cirrhosis of liver without ascites, unspecified hepatic cirrhosis type (HCC) [facility] Diagnosis Cirrhosis of liver without ascites, unspecified hepatic cirrhosis type (HCC)- Primary Hepatocellular carcinoma (HCC) Malignant neoplasm of liver, primary [facility] Diagnosis Cirrhosis of liver without ascites, unspecified hepatic cirrhosis type (HCC) Liver mass Unspecified disorder of liver Splenomegaly [facility]* Diagnosis Hepatocellular carcinoma (HCC)- Primary Malignant neoplasm of liver, primary [facility] Diagnosis Hepatocellular carcinoma (HCC)- Primary Malignant neoplasm of liver, primary Cirrhosis of liver without ascites, unspecified hepatic cirrhosis type (HCC) [facility] Diagnosis Cirrhosis of liver without ascites, unspecified hepatic cirrhosis type (HCC)- Primary [facility] Diagnosis Hepatocellular carcinoma (HCC)- Primary Malignant neoplasm of liver, primary [facility] Diagnosis Hepatocellular carcinoma (HCC)- Primary Malignant neoplasm of liver, primary [facility] Diagnosis Unspecified essential hypertension Urge incontinence of urine Urge incontinence [facility] Diagnosis Coronary artery disease involving tejon coronary artery 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 Urge incontinence [facility] Diagnosis Iron deficiency anemia due to chronic blood loss- Primary Iron deficiency anemia secondary to blood loss (chronic) Macrocytic anemia Unspecified deficiency anemia Hepatocellular carcinoma (HCC) Malignant neoplasm of liver, primary Thrombocytopenia (HCC) Thrombocytopenia, unspecified Hyperparathyroidism (HCC) Hyperparathyroidism, unspecified MGUS (monoclonal gammopathy of unknown significance) Monoclonal paraproteinemia [facility] Diagnosis New onset atrial flutter (HCC)- Primary Atrial flutter Coronary artery disease involving tejon coronary artery of tejon heart without angina pectoris [facility] Diagnosis 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 [facility] Diagnosis 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 [facility] Diagnosis 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 [facility] Diagnosis 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 documented in this encounter [facility]* Diagnosis 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 [facility] Diagnosis Melena- Primary Blood in stool documented in this encounter [facility] note* Diagnosis Monoclonal gammopathy Monoclonal paraproteinemia Macrocytic anemia Unspecified deficiency anemia Thrombocytopenia (HCC) Thrombocytopenia, unspecified documented in this encounter [facility] note* Diagnosis Liver disease Unspecified disorder of liver documented in this encounter [facility]'s home Plan of care note* Visit Details Visit Type -PT SOC Discipline -Physical Therapy Problems Problem Description Start Date Status Goals Interve ntions PT Learning Assessment Disciplines: PT 12/17/2021 Active 1 goal linked to scheduled/document ed intervention 1 goal intervention scheduled/document ed in this visit Medication Education Disciplines: Skilled Services 12/17/2021 Active 1 goal linked to scheduled/document ed intervention 1 goal intervention scheduled/document ed in this visit Physician Specific Parameters Disciplines: Skilled Services 12/17/2021 Active 1 goal linked to scheduled/document ed intervention 1 goal intervention scheduled/document ed in this visit Risk for Falls Disciplines: Skilled Services 12/17/2021 Active 1 goal linked to scheduled/document ed intervention 1 goal intervention scheduled/document ed in this visit Advance Directives Disciplines: Skilled Services 12/17/2021 Resolved on 12/17/2021 1 goal linked to scheduled/document ed intervention 1 goal intervention scheduled/document ed in this visit Goals Goal Associated Problem Outcome Goal Met? Visit Notes Demonstrate understanding of education Description: Patient and/or caregiver will understand educational instruction to be achieved by 01/15/22. . PT Learning Assessment No Patient/caregiver will demonstrate ability to obtain, store, identify and administer ordered medications, keep accurate medication list in home, and adhere to medication schedule Description: Patient/caregiver will demonstrate ability to obtain, store, identify and administer ordered medications, keep accurate medication list in home, and adhere to medication schedule by 01/15/22. Medication Education No Patient to maintain parameters within physician-specified ranges throughout certification period Physician Specific Parameters No Manage Risk for falls Description: Patient/caregiver will verbalize knowledge of individualized fall prevention strategies by 01/15/22. . Risk for Falls No Patient/caregiver will make healthcare providers aware of and any changes to Advance Directives throughout certification period Advance Directives Completed Yes Interventions Intervention Associated Problem/Goal Status Variance Visit Notes Instruct and educate on knowledge deficits Problem:PT Learning Assessment Goal:Demonstrate understanding of education Completed patient verbalize and/or demonstrate understanding of physical therapy education including fall prevention strategies, home safety and home exercise program. Education methods include: verbal cues. Further education required to improve knowledge and compliance with fall prevention strategies, home safety, functional activity and home exercise program. Medication Education Description: Evaluate/instruct patient/caregiver on obtaining, storing, identifying and administering ordered medications as well as keeping accurate medication list in the home and adhereing to medication schedule Problem:Medication Education Goal:Patient/caregive r will demonstrate ability to obtain, store, identify and administer ordered medications, keep accurate medication list in home, and adhere to medication schedule Completed Patient instructed on importance of keeping accurate medication list in home and adhering to medication schedule. SPO2 Description: Notify Dr. Bradley if pulse ox is <92% at rest. Problem:Physician Specific Parameters Goal:Patient to maintain parameters within physician-specified ranges throughout certification period Completed Instruct on individual fall risk factors and strategies to prevent falls and injuries caused by falls. Problem:Risk for Falls Goal:Manage Risk for falls Completed PT: Patient instructed on Eliminating Environmental Hazards: Keep pathways clear, Keep pets out of pathways, Remove unsafe rugs, Move furniture from pathways and Wear supportive shoes or non-skid socks Managing Impaired Functional Mobility: Use assistive device(s): front wheeled walker Determine patient's Advance Directive Status Description: Patient does have advance directives. Patient's Advance Directives determined to be available in Home and EMR Healthcare DPOA and Living Will. Problem:Advance Directives Goal:Patient/caregive r will make healthcare providers aware of and any changes to Advance Directives throughout certification period Completed Discussed Advance Directives with Patient and/or Caregiver. Referred patient to Home Care handbook for further information on Healthcare DPOA & Living Will. [facility] Visit Details Visit Type -PT ROUTINE Discipline -Physical Therapy Problems Problem Description Start Date Status Goals Interve ntions PT Impaired muscle performance and/or ROM Disciplines: PT 12/17/2021 Active 1 goal linked to scheduled/document ed intervention 1 goal intervention scheduled/document ed in this visit PT Impaired gait Disciplines: PT 12/17/2021 Active 1 goal linked to scheduled/document ed intervention 1 goal intervention scheduled/document ed in this visit PT Learning Assessment Disciplines: PT 12/17/2021 Active 1 goal linked to scheduled/document ed intervention 1 goal intervention scheduled/document ed in this visit Medication Education Disciplines: Skilled Services 12/17/2021 Active 1 goal linked to scheduled/document ed intervention 1 goal intervention scheduled/document ed in this visit Sepsis Disciplines: Skilled Services 12/17/2021 Active 1 goal linked to scheduled/document ed intervention 1 goal intervention scheduled/document ed in this visit Physician Specific Parameters Disciplines: Skilled Services 12/17/2021 Active 1 goal linked to scheduled/document ed intervention 1 goal intervention scheduled/document ed in this visit Risk for Falls Disciplines: Skilled Services 12/17/2021 Active 1 goal linked to scheduled/document ed intervention 1 goal intervention scheduled/document ed in this visit Goals Goal Associated Problem Outcome Goal Met? Visit Notes Improved Muscle Performance and/or ROM Description: LTG: Patient will demonstrate improved muscle performance to meet functional goals as evidenced by ability to tolerate 5 sit to stands in 30 sec and tolerate 10 min of a standing activity, to be achieved by 01/15/22. . STG: Patient and/or caregiver will verbalize/demonstrate independence with home exercise program, to improve functional mobility, to be achieved by 12/25/21. LTG: Patient will demonstrate improved left hip active range of motion to 100* in standing degrees, to meet functional goals, to be achieved by 01/15/22. . PT Impaired muscle performance and/or ROM No Improved Gait Description: LTG: Patient will demonstrate improved gait ability as evidenced by ambulation 150 feet with rollator walker independently with AD, to return to safe household and community ambulation, in order to return to plf , to be achieved by 01/15/22. . PT Impaired gait No Demonstrate understanding of education Description: Patient and/or caregiver will understand educational instruction to be achieved by 01/15/22. . PT Learning Assessment No Patient/caregiver will demonstrate ability to obtain, store, identify and administer ordered medications, keep accurate medication list in home, and adhere to medication schedule Description: Patient/caregiver will demonstrate ability to obtain, store, identify and administer ordered medications, keep accurate medication list in home, and adhere to medication schedule by 01/15/22. Medication Education No Patient/caregiver will be able to identify and report symptoms of sepsis Description: Patient/caregiver will be able to identify signs/symptoms of sepsis infection and will verbalize actions to take if suspected by 01/15/22. . Sepsis No Patient to maintain parameters within physician-specified ranges throughout certification period Physician Specific Parameters No Manage Risk for falls Description: Patient/caregiver will verbalize knowledge of individualized fall prevention strategies by 01/15/22. . Risk for Falls No Interventions Intervention Associated Problem/Goal Status Variance Visit Notes Physical Therapy Therapeutic Exercises Problem:PT Impaired muscle performance and/or ROM Goal:Improved Muscle Performance and/or ROM Completed patient instructed on strengthening exercises including Supine : GS,QS,HS, HIPADD, HIP BD, HEEL SLIDES, SAQ, X 10 SEATED: FAQ, HIP FLEX, ,HIP ADD, HIP ABD AP X10 with verbal and tactile cues for TECHNIQUE . Physical Therapy Gait Training Problem:PT Impaired gait Goal:Improved Gait Completed Gait training and instruction to patient on safe ambulation with front wheeled walker for 40' x2 feet with supervision, with verbal cues for corrections of gait deviations. Pt tends to stand more upright with his WW vs the rollator . Instruct and educate on knowledge deficits Problem:PT Learning Assessment Goal:Demonstrate understanding of education Completed patient verbalize and/or demonstrate understanding of physical therapy education including fall prevention strategies and home safety. Education methods include: verbal cues. Further education required to improve knowledge and compliance with pulmonary disease management, nutrition, home safety, functional activity and home exercise program. Medication Education Description: Evaluate/instruct patient/caregiver on obtaining, storing, identifying and administering ordered medications as well as keeping accurate medication list in the home and adhereing to medication schedule Problem:Medication Education Goal:Patient/caregive r will demonstrate ability to obtain, store, identify and administer ordered medications, keep accurate medication list in home, and adhere to medication schedule Completed Patient instructed on importance of keeping accurate medication list in home and adhering to medication schedule. Risk of Sepsis Description: Patient is at risk for sepsis. Monitor closely for s/s of sepsis. Problem:Sepsis Goal:Patient/caregive r will be able to identify and report symptoms of sepsis Completed SPO2 Description: Notify Dr. Bradley if pulse ox is <92% at rest. Problem:Physician Specific Parameters Goal:Patient to maintain parameters within physician-specified ranges throughout certification period Completed Instruct on individual fall risk factors and strategies to prevent falls and injuries caused by falls. Problem:Risk for Falls Goal:Manage Risk for falls Completed PT: Patient instructed on Eliminating Environmental Hazards: Keep pathways clear, Keep pets out of pathways and Remove unsafe rugs Managing Impaired Functional Mobility: Use assistive device(s): front wheeled walker 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 -Physical Therapy Problems Problem Description Start Date Status Goals Interve ntions PT Impaired muscle performance and/or ROM Disciplines: PT 12/17/2021 Active 1 goal linked to scheduled/document ed intervention 1 goal intervention scheduled/document ed in this visit PT Impaired gait Disciplines: PT 12/17/2021 Active 1 goal linked to scheduled/document ed intervention 1 goal intervention scheduled/document ed in this visit PT Learning Assessment Disciplines: PT 12/17/2021 Active 1 goal linked to scheduled/document ed intervention 1 goal intervention scheduled/document ed in this visit Medication Education Disciplines: Skilled Services 12/17/2021 Active 1 goal linked to scheduled/document ed intervention 1 goal intervention scheduled/document ed in this visit Sepsis Disciplines: Skilled Services 12/17/2021 Active 1 goal linked to scheduled/document ed intervention 1 goal intervention scheduled/document ed in this visit Physician Specific Parameters Disciplines: Skilled Services 12/17/2021 Active 1 goal linked to scheduled/document ed intervention 1 goal intervention scheduled/document ed in this visit Risk for Falls Disciplines: Skilled Services 12/17/2021 Active 1 goal linked to scheduled/document ed intervention 1 goal intervention scheduled/document ed in this visit Pain Disciplines: Skilled Services 12/17/2021 Active 1 goal linked to scheduled/document ed intervention 1 goal intervention scheduled/document ed in this visit Discharge Disciplines: Skilled Services 12/17/2021 Active 1 goal linked to scheduled/document ed intervention 1 goal intervention scheduled/document ed in this visit Goals Goal Associated Problem Outcome Goal Met? Visit Notes Improved Muscle Performance and/or ROM Description: LTG: Patient will demonstrate improved muscle performance to meet functional goals as evidenced by ability to tolerate 5 sit to stands in 30 sec and tolerate 10 min of a standing activity, to be achieved by 01/15/22. . STG: Patient and/or caregiver will verbalize/demonstrate independence with home exercise program, to improve functional mobility, to be achieved by 12/25/21. LTG: Patient will demonstrate improved left hip active range of motion to 100* in standing degrees, to meet functional goals, to be achieved by 01/15/22. . PT Impaired muscle performance and/or ROM No Improved Gait Description: LTG: Patient will demonstrate improved gait ability as evidenced by ambulation 150 feet with rollator walker independently with AD, to return to safe household and community ambulation, in order to return to plf , to be achieved by 01/15/22. . PT Impaired gait No Demonstrate understanding of education Description: Patient and/or caregiver will understand educational instruction to be achieved by 01/15/22. . PT Learning Assessment No Patient/caregiver will demonstrate ability to obtain, store, identify and administer ordered medications, keep accurate medication list in home, and adhere to medication schedule Description: Patient/caregiver will demonstrate ability to obtain, store, identify and administer ordered medications, keep accurate medication list in home, and adhere to medication schedule by 01/15/22. Medication Education No Patient/caregiver will be able to identify and report symptoms of sepsis Description: Patient/caregiver will be able to identify signs/symptoms of sepsis infection and will verbalize actions to take if suspected by 01/15/22. . Sepsis No Patient to maintain parameters within physician-specified ranges throughout certification period Physician Specific Parameters No Manage Risk for falls Description: Patient/caregiver will verbalize knowledge of individualized fall prevention strategies by 01/15/22. . Risk for Falls No Manage Pain Description: Patient/caregiver will verbalize knowledge and understanding of appropriate techniques to control pain, including pain medication and non-pharmacological techniques. Patient will verbalize or demonstrate an acceptable level of pain as evidenced by a pain score of <5/10 and improvement in ability to perform activities of daily living to be achieved by 01/15/22. . Pain No Manage discharge planning Description: Patient/caregiver will verbalize understanding of ongoing discharge plan provided related to disease management, arrangements for outpatient and/or community services, obtaining medications, supplies, and DME, as needed throughout certification period. Discharge No Interventions Intervention Associated Problem/Goal Status Variance Visit Notes Physical Therapy Therapeutic Exercises Problem:PT Impaired muscle performance and/or ROM Goal:Improved Muscle Performance and/or ROM Completed patient instructed on strengthening exercises including supine: ankle pumps, quad sets, hip abd and adduction, saq and heel slides x's 10 each. seated: laq. hip flexion and heel toe raises x's 10 each with verbal cues for correct form and pace. patient instructed to perform home exercise program twice a day which included above exercises. Physical Therapy Gait Training Problem:PT Impaired gait Goal:Improved Gait Completed Gait training and instruction to patient on safe ambulation with rollator walker for 2x's 40 feet with supervision, with verbal cues for corrections of gait deviations including staying closer to rollator. Instruct and educate on knowledge deficits Problem:PT Learning Assessment Goal:Demonstrate understanding of education Completed patient verbalize and/or demonstrate understanding of physical therapy education including home exercise program. Education methods include: verbal cues and visual cues. Further education required to improve knowledge and compliance with home exercise program. Medication Education Description: Evaluate/instruct patient/caregiver on obtaining, storing, identifying and administering ordered medications as well as keeping accurate medication list in the home and adhereing to medication schedule Problem:Medication Education Goal:Patient/caregive r will demonstrate ability to obtain, store, identify and administer ordered medications, keep accurate medication list in home, and adhere to medication schedule Completed Patient instructed on importance of keeping accurate medication list in home. Risk of Sepsis Description: Patient is at risk for sepsis. Monitor closely for s/s of sepsis. Problem:Sepsis Goal:Patient/caregive r will be able to identify and report symptoms of sepsis Completed SPO2 Description: Notify Dr. Bradley if pulse ox is <92% at rest. Problem:Physician Specific Parameters Goal:Patient to maintain parameters within physician-specified ranges throughout certification period Completed Instruct on individual fall risk factors and strategies to prevent falls and injuries caused by falls. Problem:Risk for Falls Goal:Manage Risk for falls Completed PT: Patient instructed on Managing Impaired Functional Mobility: Use assistive device(s): rollator walker Instruct on pain and instruct on strategies to control pain Problem:Pain Goal:Manage Pain Completed patient instructed on techniques to control pain including Pharmacological measures and Non-Pharmacological measures; distraction. Instruct on ongoing discharge plan Problem:Discharge Goal:Manage discharge planning Completed Ongoing Discharge plan: Discharge plan discussed with patient including frequency and duration for home PT and plan for transition to: caregiver assistance. 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 -Physical Therapy Problems Problem Description Start Date Status Goals Interve ntions PT Impaired muscle performance and/or ROM Disciplines: PT 12/17/2021 Active 1 goal linked to scheduled/document ed intervention 1 goal intervention scheduled/document ed in this visit PT Impaired gait Disciplines: PT 12/17/2021 Active 1 goal linked to scheduled/document ed intervention 1 goal intervention scheduled/document ed in this visit PT Impaired balance Disciplines: PT 12/17/2021 Active 1 goal linked to scheduled/document ed intervention 1 goal intervention scheduled/document ed in this visit PT Learning Assessment Disciplines: PT 12/17/2021 Active 1 goal linked to scheduled/document ed intervention 1 goal intervention scheduled/document ed in this visit Medication Education Disciplines: Skilled Services 12/17/2021 Active 1 goal linked to scheduled/document ed intervention 1 goal intervention scheduled/document ed in this visit Sepsis Disciplines: Skilled Services 12/17/2021 Active 1 goal linked to scheduled/document ed intervention 1 goal intervention scheduled/document ed in this visit Physician Specific Parameters Disciplines: Skilled Services 12/17/2021 Active 1 goal linked to scheduled/document ed intervention 1 goal intervention scheduled/document ed in this visit Risk for Falls Disciplines: Skilled Services 12/17/2021 Active 1 goal linked to scheduled/document ed intervention 1 goal intervention scheduled/document ed in this visit Discharge Disciplines: Skilled Services 12/17/2021 Active 1 goal linked to scheduled/document ed intervention 1 goal intervention scheduled/document ed in this visit Goals Goal Associated Problem Outcome Goal Met? Visit Notes Improved Muscle Performance and/or ROM Description: LTG: Patient will demonstrate improved muscle performance to meet functional goals as evidenced by ability to tolerate 5 sit to stands in 30 sec and tolerate 10 min of a standing activity, to be achieved by 01/15/22. . STG: Patient and/or caregiver will verbalize/demonstrate independence with home exercise program, to improve functional mobility, to be achieved by 12/25/21. LTG: Patient will demonstrate improved left hip active range of motion to 100* in standing degrees, to meet functional goals, to be achieved by 01/15/22. . PT Impaired muscle performance and/or ROM No Improved Gait Description: LTG: Patient will demonstrate improved gait ability as evidenced by ambulation 150 feet with rollator walker independently with AD, to return to safe household and community ambulation, in order to return to plf , to be achieved by 01/15/22. . PT Impaired gait No Improved Balance Description: LTG: Patient will demonstrate improved standing balance to meet functional goals as evidenced by TUG score of <28 to be achieved by 01/15/22. . PT Impaired balance No Demonstrate understanding of education Description: Patient and/or caregiver will understand educational instruction to be achieved by 01/15/22. . PT Learning Assessment No Patient/caregiver will demonstrate ability to obtain, store, identify and administer ordered medications, keep accurate medication list in home, and adhere to medication schedule Description: Patient/caregiver will demonstrate ability to obtain, store, identify and administer ordered medications, keep accurate medication list in home, and adhere to medication schedule by 01/15/22. Medication Education No Patient/caregiver will be able to identify and report symptoms of sepsis Description: Patient/caregiver will be able to identify signs/symptoms of sepsis infection and will verbalize actions to take if suspected by 01/15/22. . Sepsis No Patient to maintain parameters within physician-specified ranges throughout certification period Physician Specific Parameters No Manage Risk for falls Description: Patient/caregiver will verbalize knowledge of individualized fall prevention strategies by 01/15/22. . Risk for Falls No Manage discharge planning Description: Patient/caregiver will verbalize understanding of ongoing discharge plan provided related to disease management, arrangements for outpatient and/or community services, obtaining medications, supplies, and DME, as needed throughout certification period. Discharge No Interventions Intervention Associated Problem/Goal Status Variance Visit Notes Physical Therapy Therapeutic Exercises Problem:PT Impaired muscle performance and/or ROM Goal:Improved Muscle Performance and/or ROM Completed patient instructed on strengthening exercises including seated: laq, hip flexion and adduction and heel toe raies x's 10 each. standing : hamstring curls and hip abduction x's 10 each with verbal, visual and written cues for correct form and pace. patient instructed to perform home exercise program twice a day which included above exercises. Physical Therapy Gait Training Problem:PT Impaired gait Goal:Improved Gait Completed Gait training and instruction to patient on safe ambulation with rollator walker for 2x's 80 feet with supervision, with verbal cues for corrections of gait deviations including pacing for safety and energy conservation. Physical Therapy Balance Training Problem:PT Impaired balance Goal:Improved Balance Completed Developed, implemented, and instructed patient on standing balance exercises including lateral stepping at counter 5feet x's 2 w/ Paul UE support on counter . Instruct and educate on knowledge deficits Problem:PT Learning Assessment Goal:Demonstrate understanding of education Completed patient verbalize and/or demonstrate understanding of physical therapy education including home exercise program. Education methods include: verbal cues, written instructions and visual cues. Further education required to improve knowledge and compliance with home exercise program. Medication Education Description: Evaluate/instruct patient/caregiver on obtaining, storing, identifying and administering ordered medications as well as keeping accurate medication list in the home and adhereing to medication schedule Problem:Medication Education Goal:Patient/caregive r will demonstrate ability to obtain, store, identify and administer ordered medications, keep accurate medication list in home, and adhere to medication schedule Completed Patient instructed on importance of keeping accurate medication list in home. Risk of Sepsis Description: Patient is at risk for sepsis. Monitor closely for s/s of sepsis. Problem:Sepsis Goal:Patient/caregive r will be able to identify and report symptoms of sepsis Completed SPO2 Description: Notify Dr. Bradley if pulse ox is <92% at rest. Problem:Physician Specific Parameters Goal:Patient to maintain parameters within physician-specified ranges throughout certification period Completed Instruct on individual fall risk factors and strategies to prevent falls and injuries caused by falls. Problem:Risk for Falls Goal:Manage Risk for falls Completed PT: Patient instructed on Managing Impaired Functional Mobility: Use assistive device(s): rollator walker Instruct on ongoing discharge plan Problem:Discharge Goal:Manage discharge planning Completed Ongoing Discharge plan: Discharge plan discussed with patient including frequency and duration for home PT and plan for transition to: live independently at home without ongoing services. documented in this encounter [facility]'s home Plan of care note* Visit Details Visit Type -PT ROUTINE Discipline -Physical Therapy Problems Problem Description Start Date Status Goals Interve ntions PT Impaired muscle performance and/or ROM Disciplines: PT 12/17/2021 Active 1 goal linked to scheduled/document ed intervention 1 goal intervention scheduled/document ed in this visit PT Impaired mobility Disciplines: PT 12/17/2021 Active 1 goal linked to scheduled/document ed intervention 1 goal intervention scheduled/document ed in this visit PT Impaired gait Disciplines: PT 12/17/2021 Active 1 goal linked to scheduled/document ed intervention 1 goal intervention scheduled/document ed in this visit PT Learning Assessment Disciplines: PT 12/17/2021 Active 1 goal linked to scheduled/document ed intervention 1 goal intervention scheduled/document ed in this visit Medication Education Disciplines: Skilled Services 12/17/2021 Active 1 goal linked to scheduled/document ed intervention 1 goal intervention scheduled/document ed in this visit Sepsis Disciplines: Skilled Services 12/17/2021 Active 1 goal linked to scheduled/document ed intervention 1 goal intervention scheduled/document ed in this visit Physician Specific Parameters Disciplines: Skilled Services 12/17/2021 Active 1 goal linked to scheduled/document ed intervention 1 goal intervention scheduled/document ed in this visit Risk for Falls Disciplines: Skilled Services 12/17/2021 Active 1 goal linked to scheduled/document ed intervention 1 goal intervention scheduled/document ed in this visit Pain Disciplines: Skilled Services 12/17/2021 Active 1 goal linked to scheduled/document ed intervention 1 goal intervention scheduled/document ed in this visit Goals Goal Associated Problem Outcome Goal Met? Visit Notes Improved Muscle Performance and/or ROM Description: LTG: Patient will demonstrate improved muscle performance to meet functional goals as evidenced by ability to tolerate 5 sit to stands in 30 sec and tolerate 10 min of a standing activity, to be achieved by 01/15/22. . STG: Patient and/or caregiver will verbalize/demonstrate independence with home exercise program, to improve functional mobility, to be achieved by 12/25/21. LTG: Patient will demonstrate improved left hip active range of motion to 100* in standing degrees, to meet functional goals, to be achieved by 01/15/22. . PT Impaired muscle performance and/or ROM No Improved Transfers Description: LTG: Patient will demonstrate safe transfers to/from bed, chair, toilet, shower/tub and car independently with AD, to be achieved by 01/15/22. . PT Impaired mobility No Improved Gait Description: LTG: Patient will demonstrate improved gait ability as evidenced by ambulation 150 feet with rollator walker independently with AD, to return to safe household and community ambulation, in order to return to plf , to be achieved by 01/15/22. . PT Impaired gait No Demonstrate understanding of education Description: Patient and/or caregiver will understand educational instruction to be achieved by 01/15/22. . PT Learning Assessment No Patient/caregiver will demonstrate ability to obtain, store, identify and administer ordered medications, keep accurate medication list in home, and adhere to medication schedule Description: Patient/caregiver will demonstrate ability to obtain, store, identify and administer ordered medications, keep accurate medication list in home, and adhere to medication schedule by 01/15/22. Medication Education No Patient/caregiver will be able to identify and report symptoms of sepsis Description: Patient/caregiver will be able to identify signs/symptoms of sepsis infection and will verbalize actions to take if suspected by 01/15/22. . Sepsis No Patient to maintain parameters within physician-specified ranges throughout certification period Physician Specific Parameters No Manage Risk for falls Description: Patient/caregiver will verbalize knowledge of individualized fall prevention strategies by 01/15/22. . Risk for Falls No Manage Pain Description: Patient/caregiver will verbalize knowledge and understanding of appropriate techniques to control pain, including pain medication and non-pharmacological techniques. Patient will verbalize or demonstrate an acceptable level of pain as evidenced by a pain score of <5/10 and improvement in ability to perform activities of daily living to be achieved by 01/15/22. . Pain No Interventions Intervention Associated Problem/Goal Status Variance Visit Notes Physical Therapy Therapeutic Exercises Problem:PT Impaired muscle performance and/or ROM Goal:Improved Muscle Performance and/or ROM Completed patient instructed on strengthening exercises including Supine : GS,QS,HS, HIPADD, HIP BD, HEEL SLIDES, SAQ,BRIDGING X 15 SEATED: FAQ, HIP FLEX, ,HIP ADD, HIP ABD AP X10 with blue T band with verbal and tactile cues for TECHNIQUE . Physical Therapy Transfer Training Problem:PT Impaired mobility Goal:Improved Transfers Completed Transfer training and instruction to patient on safe transfers to and from bed and chair with supervision and verbal cues for technique Physical Therapy Gait Training Problem:PT Impaired gait Goal:Improved Gait Completed Gait training and instruction to patient on safe ambulation with front wheeled walker for 40' x 3 feet with supervision, with verbal cues for corrections of gait deviations including picking up his feet and no shuffling . Instruct and educate on knowledge deficits Problem:PT Learning Assessment Goal:Demonstrate understanding of education Completed patient verbalize and/or demonstrate understanding of physical therapy education including cardiac disease management, pulmonary disease management, pain management, fall prevention strategies, home safety and functional activity. Education methods include: verbal cues. Further education required to improve knowledge and compliance with fall prevention strategies, home safety, functional activity and home exercise program. Medication Education Description: Evaluate/instruct patient/caregiver on obtaining, storing, identifying and administering ordered medications as well as keeping accurate medication list in the home and adhereing to medication schedule Problem:Medication Education Goal:Patient/caregive r will demonstrate ability to obtain, store, identify and administer ordered medications, keep accurate medication list in home, and adhere to medication schedule Completed Patient instructed on importance of keeping accurate medication list in home and adhering to medication schedule. Risk of Sepsis Description: Patient is at risk for sepsis. Monitor closely for s/s of sepsis. Problem:Sepsis Goal:Patient/caregive r will be able to identify and report symptoms of sepsis Completed SPO2 Description: Notify Dr. Bradley if pulse ox is <92% at rest. Problem:Physician Specific Parameters Goal:Patient to maintain parameters within physician-specified ranges throughout certification period Completed Instruct on individual fall risk factors and strategies to prevent falls and injuries caused by falls. Problem:Risk for Falls Goal:Manage Risk for falls Completed PT: Patient instructed on Eliminating Environmental Hazards: Keep pathways clear, Keep pets out of pathways, Remove unsafe rugs and Move furniture from pathways Managing Impaired Functional Mobility: Use assistive device(s): front wheeled walker Managing Pain Instruct on pain and instruct on strategies to control pain Problem:Pain Goal:Manage Pain Completed patient instructed on techniques to control pain including Pharmacological measures and Non-Pharmacological measures; rest and positioning/elevation. 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 -Physical Therapy Problems Problem Description Start Date Status Goals Interve ntions PT Impaired muscle performance and/or ROM Disciplines: PT 12/17/2021 Active 1 goal linked to scheduled/document ed intervention 1 goal intervention scheduled/document ed in this visit PT Impaired mobility Disciplines: PT 12/17/2021 Active 1 goal linked to scheduled/document ed intervention 1 goal intervention scheduled/document ed in this visit PT Impaired gait Disciplines: PT 12/17/2021 Active 1 goal linked to scheduled/document ed intervention 1 goal intervention scheduled/document ed in this visit PT Impaired balance Disciplines: PT 12/17/2021 Active 1 goal linked to scheduled/document ed intervention 1 goal intervention scheduled/document ed in this visit PT Learning Assessment Disciplines: PT 12/17/2021 Active 1 goal linked to scheduled/document ed intervention 1 goal intervention scheduled/document ed in this visit Medication Education Disciplines: Skilled Services 12/17/2021 Active 1 goal linked to scheduled/document ed intervention 1 goal intervention scheduled/document ed in this visit Sepsis Disciplines: Skilled Services 12/17/2021 Active 1 goal linked to scheduled/document ed intervention 1 goal intervention scheduled/document ed in this visit Physician Specific Parameters Disciplines: Skilled Services 12/17/2021 Active 1 goal linked to scheduled/document ed intervention 1 goal intervention scheduled/document ed in this visit Risk for Falls Disciplines: Skilled Services 12/17/2021 Active 1 goal linked to scheduled/document ed intervention 1 goal intervention scheduled/document ed in this visit Pain Disciplines: Skilled Services 12/17/2021 Active 1 goal linked to scheduled/document ed intervention 1 goal intervention scheduled/document ed in this visit Discharge Disciplines: Skilled Services 12/17/2021 Active 1 goal linked to scheduled/document ed intervention 1 goal intervention scheduled/document ed in this visit Goals Goal Associated Problem Outcome Goal Met? Visit Notes Improved Muscle Performance and/or ROM Description: LTG: Patient will demonstrate improved muscle performance to meet functional goals as evidenced by ability to tolerate 5 sit to stands in 30 sec and tolerate 10 min of a standing activity, to be achieved by 01/15/22. . STG: Patient and/or caregiver will verbalize/demonstrate independence with home exercise program, to improve functional mobility, to be achieved by 12/25/21. LTG: Patient will demonstrate improved left hip active range of motion to 100* in standing degrees, to meet functional goals, to be achieved by 01/15/22. . PT Impaired muscle performance and/or ROM No Improved Transfers Description: LTG: Patient will demonstrate safe transfers to/from bed, chair, toilet, shower/tub and car independently with AD, to be achieved by 01/15/22. . PT Impaired mobility No Improved Gait Description: LTG: Patient will demonstrate improved gait ability as evidenced by ambulation 150 feet with rollator walker independently with AD, to return to safe household and community ambulation, in order to return to plf , to be achieved by 01/15/22. . PT Impaired gait No Improved Balance Description: LTG: Patient will demonstrate improved standing balance to meet functional goals as evidenced by TUG score of <28 to be achieved by 01/15/22. . PT Impaired balance No Demonstrate understanding of education Description: Patient and/or caregiver will understand educational instruction to be achieved by 01/15/22. . PT Learning Assessment No Patient/caregiver will demonstrate ability to obtain, store, identify and administer ordered medications, keep accurate medication list in home, and adhere to medication schedule Description: Patient/caregiver will demonstrate ability to obtain, store, identify and administer ordered medications, keep accurate medication list in home, and adhere to medication schedule by 01/15/22. Medication Education No Patient/caregiver will be able to identify and report symptoms of sepsis Description: Patient/caregiver will be able to identify signs/symptoms of sepsis infection and will verbalize actions to take if suspected by 01/15/22. . Sepsis No Patient to maintain parameters within physician-specified ranges throughout certification period Physician Specific Parameters No Manage Risk for falls Description: Patient/caregiver will verbalize knowledge of individualized fall prevention strategies by 01/15/22. . Risk for Falls No Manage Pain Description: Patient/caregiver will verbalize knowledge and understanding of appropriate techniques to control pain, including pain medication and non-pharmacological techniques. Patient will verbalize or demonstrate an acceptable level of pain as evidenced by a pain score of <5/10 and improvement in ability to perform activities of daily living to be achieved by 01/15/22. . Pain No Manage discharge planning Description: Patient/caregiver will verbalize understanding of ongoing discharge plan provided related to disease management, arrangements for outpatient and/or community services, obtaining medications, supplies, and DME, as needed throughout certification period. Discharge No Interventions Intervention Associated Problem/Goal Status Variance Visit Notes Physical Therapy Therapeutic Exercises Problem:PT Impaired muscle performance and/or ROM Goal:Improved Muscle Performance and/or ROM Completed patient instructed on strengthening exercises including seated laq, hip flexion and adduction, heel toe raises x's 10 each with verbal and visual cues for correct form. patient instructed to perform home exercise program daily which included above exercises. Physical Therapy Transfer Training Problem:PT Impaired mobility Goal:Improved Transfers Completed Transfer training and instruction to patient on safe transfers to and from chair and chair lift with supervision and verbal cues for safety. Physical Therapy Gait Training Problem:PT Impaired gait Goal:Improved Gait Completed Gait training and instruction to patient on safe ambulation with rollator walker for 2x's125 feet with stand by assist, with verbal cues for corrections of gait deviations including inceased step height and for staying closer to rollator. . Physical Therapy Balance Training Problem:PT Impaired balance Goal:Improved Balance Completed Developed, implemented, and instructed patient on standing balance exercises including . Instruct and educate on knowledge deficits Problem:PT Learning Assessment Goal:Demonstrate understanding of education Completed patient verbalize and/or demonstrate understanding of physical therapy education including home exercise program. Education methods include: verbal cues. Further education required to improve knowledge and compliance with home exercise program. Medication Education Description: Evaluate/instruct patient/caregiver on obtaining, storing, identifying and administering ordered medications as well as keeping accurate medication list in the home and adhereing to medication schedule Problem:Medication Education Goal:Patient/caregive r will demonstrate ability to obtain, store, identify and administer ordered medications, keep accurate medication list in home, and adhere to medication schedule Completed Patient instructed on importance of keeping accurate medication list in home. Risk of Sepsis Description: Patient is at risk for sepsis. Monitor closely for s/s of sepsis. Problem:Sepsis Goal:Patient/caregive r will be able to identify and report symptoms of sepsis Completed SPO2 Description: Notify Dr. Bradley if pulse ox is <92% at rest. Problem:Physician Specific Parameters Goal:Patient to maintain parameters within physician-specified ranges throughout certification period Completed Instruct on individual fall risk factors and strategies to prevent falls and injuries caused by falls. Problem:Risk for Falls Goal:Manage Risk for falls Completed PT: Patient instructed on Managing Impaired Functional Mobility: Use assistive device(s): front wheeled walker Instruct on pain and instruct on strategies to control pain Problem:Pain Goal:Manage Pain Completed patient instructed on techniques to control pain including Non-Pharmacological measures; breathing/relaxation. Instruct on ongoing discharge plan Problem:Discharge Goal:Manage discharge planning Completed Ongoing Discharge plan: Discharge plan discussed with patient including frequency and duration for home PT and plan for transition to: live independently at home without ongoing services. [facility] Visit Details Visit Type -PT ROUTINE Discipline -Physical Therapy Problems Problem Description Start Date Status Goals Interve ntions PT Impaired muscle performance and/or ROM Disciplines: PT 12/17/2021 Active 1 goal linked to scheduled/document ed intervention 1 goal intervention scheduled/document ed in this visit PT Impaired mobility Disciplines: PT 12/17/2021 Active 1 goal linked to scheduled/document ed intervention 1 goal intervention scheduled/document ed in this visit PT Impaired gait Disciplines: PT 12/17/2021 Active 1 goal linked to scheduled/document ed intervention 1 goal intervention scheduled/document ed in this visit PT Impaired balance Disciplines: PT 12/17/2021 Active 1 goal linked to scheduled/document ed intervention 1 goal intervention scheduled/document ed in this visit PT Learning Assessment Disciplines: PT 12/17/2021 Active 1 goal linked to scheduled/document ed intervention 1 goal intervention scheduled/document ed in this visit Medication Education Disciplines: Skilled Services 12/17/2021 Active 1 goal linked to scheduled/document ed intervention 1 goal intervention scheduled/document ed in this visit Sepsis Disciplines: Skilled Services 12/17/2021 Active 1 goal linked to scheduled/document ed intervention 1 goal intervention scheduled/document ed in this visit Physician Specific Parameters Disciplines: Skilled Services 12/17/2021 Active 1 goal linked to scheduled/document ed intervention 1 goal intervention scheduled/document ed in this visit Risk for Falls Disciplines: Skilled Services 12/17/2021 Active 1 goal linked to scheduled/document ed intervention 1 goal intervention scheduled/document ed in this visit Goals Goal Associated Problem Outcome Goal Met? Visit Notes Improved Muscle Performance and/or ROM Description: LTG: Patient will demonstrate improved muscle performance to meet functional goals as evidenced by ability to tolerate 5 sit to stands in 30 sec and tolerate 10 min of a standing activity, to be achieved by 01/15/22. . STG: Patient and/or caregiver will verbalize/demonstrate independence with home exercise program, to improve functional mobility, to be achieved by 12/25/21. LTG: Patient will demonstrate improved left hip active range of motion to 100* in standing degrees, to meet functional goals, to be achieved by 01/15/22. . PT Impaired muscle performance and/or ROM No Improved Transfers Description: LTG: Patient will demonstrate safe transfers to/from bed, chair, toilet, shower/tub and car independently with AD, to be achieved by 01/15/22. . PT Impaired mobility No Improved Gait Description: LTG: Patient will demonstrate improved gait ability as evidenced by ambulation 150 feet with rollator walker independently with AD, to return to safe household and community ambulation, in order to return to plf , to be achieved by 01/15/22. . PT Impaired gait No Improved Balance Description: LTG: Patient will demonstrate improved standing balance to meet functional goals as evidenced by TUG score of <28 to be achieved by 01/15/22. . PT Impaired balance No Demonstrate understanding of education Description: Patient and/or caregiver will understand educational instruction to be achieved by 01/15/22. . PT Learning Assessment No Patient/caregiver will demonstrate ability to obtain, store, identify and administer ordered medications, keep accurate medication list in home, and adhere to medication schedule Description: Patient/caregiver will demonstrate ability to obtain, store, identify and administer ordered medications, keep accurate medication list in home, and adhere to medication schedule by 01/15/22. Medication Education No Patient/caregiver will be able to identify and report symptoms of sepsis Description: Patient/caregiver will be able to identify signs/symptoms of sepsis infection and will verbalize actions to take if suspected by 01/15/22. . Sepsis No Patient to maintain parameters within physician-specified ranges throughout certification period Physician Specific Parameters No Manage Risk for falls Description: Patient/caregiver will verbalize knowledge of individualized fall prevention strategies by 01/15/22. . Risk for Falls No Interventions Intervention Associated Problem/Goal Status Variance Visit Notes Physical Therapy Therapeutic Exercises Problem:PT Impaired muscle performance and/or ROM Goal:Improved Muscle Performance and/or ROM Completed patient instructed on strengthening exercises including Supine : GS,QS,HS, HIPADD, HIP BD, HEEL SLIDES, SAQ,BRIDGING X 15 SEATED: FAQ, HIP FLEX, ,HIP ADD, HIP ABD AP X10 with blue T band Standing: heel raises ( unable to do) , Toe raises, knee flexion, hip flexionX 10 reps with verbal and tactile cues for TECHNIQUE . noticeably stronger with the supine ther ex, seated ther ex difficult with t band, struglled greatly with standing ther ex, Unable to lift heels off floor with heel raises Physical Therapy Transfer Training Problem:PT Impaired mobility Goal:Improved Transfers Completed Transfer training and instruction to patient on safe transfers to and from bed and chair with supervision and verbal cues for cues. Physical Therapy Gait Training Problem:PT Impaired gait Goal:Improved Gait Completed Gait training and instruction to patient on safe ambulation with front wheeled walker for 50' x 2 feet with stand by assist, with tactile cues for corrections of gait deviations including picking up feet, cannot toe off due to calf weakness . Physical Therapy Balance Training Problem:PT Impaired balance Goal:Improved Balance Completed Developed, implemented, and instructed patient on standing balance exercises including standing ther ex. Instruct and educate on knowledge deficits Problem:PT Learning Assessment Goal:Demonstrate understanding of education Completed patient verbalize and/or demonstrate understanding of physical therapy education including functional activity and home exercise program. Education methods include: verbal cues. Further education required to improve knowledge and compliance with fall prevention strategies, home safety, functional activity and home exercise program. Medication Education Description: Evaluate/instruct patient/caregiver on obtaining, storing, identifying and administering ordered medications as well as keeping accurate medication list in the home and adhereing to medication schedule Problem:Medication Education Goal:Patient/caregive r will demonstrate ability to obtain, store, identify and administer ordered medications, keep accurate medication list in home, and adhere to medication schedule Completed Patient instructed on importance of keeping accurate medication list in home and adhering to medication schedule. Risk of Sepsis Description: Patient is at risk for sepsis. Monitor closely for s/s of sepsis. Problem:Sepsis Goal:Patient/caregive r will be able to identify and report symptoms of sepsis Completed SPO2 Description: Notify Dr. Bradley if pulse ox is <92% at rest. Problem:Physician Specific Parameters Goal:Patient to maintain parameters within physician-specified ranges throughout certification period Completed Instruct on individual fall risk factors and strategies to prevent falls and injuries caused by falls. 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 -Physical Therapy Problems Problem Description Start Date Status Goals Interve ntions PT Impaired muscle performance and/or ROM Disciplines: PT 12/17/2021 Active 1 goal linked to scheduled/document ed intervention 1 goal intervention scheduled/document ed in this visit PT Impaired gait Disciplines: PT 12/17/2021 Active 1 goal linked to scheduled/document ed intervention 1 goal intervention scheduled/document ed in this visit PT Impaired balance Disciplines: PT 12/17/2021 Active 1 goal linked to scheduled/document ed intervention 1 goal intervention scheduled/document ed in this visit PT Learning Assessment Disciplines: PT 12/17/2021 Active 1 goal linked to scheduled/document ed intervention 1 goal intervention scheduled/document ed in this visit Medication Education Disciplines: Skilled Services 12/17/2021 Active 1 goal linked to scheduled/document ed intervention 1 goal intervention scheduled/document ed in this visit Sepsis Disciplines: Skilled Services 12/17/2021 Active 1 goal linked to scheduled/document ed intervention 1 goal intervention scheduled/document ed in this visit Physician Specific Parameters Disciplines: Skilled Services 12/17/2021 Active 1 goal linked to scheduled/document ed intervention 1 goal intervention scheduled/document ed in this visit Risk for Falls Disciplines: Skilled Services 12/17/2021 Active 1 goal linked to scheduled/document ed intervention 1 goal intervention scheduled/document ed in this visit Pain Disciplines: Skilled Services 12/17/2021 Active 1 goal linked to scheduled/document ed intervention 1 goal intervention scheduled/document ed in this visit Discharge Disciplines: Skilled Services 12/17/2021 Active 1 goal linked to scheduled/document ed intervention 2 goal interventions scheduled/document ed in this visit Goals Goal Associated Problem Outcome Goal Met? Visit Notes Improved Muscle Performance and/or ROM Description: LTG: Patient will demonstrate improved muscle performance to meet functional goals as evidenced by ability to tolerate 5 sit to stands in 30 sec and tolerate 10 min of a standing activity, to be achieved by 01/15/22. . STG: Patient and/or caregiver will verbalize/demonstrate independence with home exercise program, to improve functional mobility, to be achieved by 12/25/21. LTG: Patient will demonstrate improved left hip active range of motion to 100* in standing degrees, to meet functional goals, to be achieved by 01/15/22. . PT Impaired muscle performance and/or ROM No Improved Gait Description: LTG: Patient will demonstrate improved gait ability as evidenced by ambulation 150 feet with rollator walker independently with AD, to return to safe household and community ambulation, in order to return to plf , to be achieved by 01/15/22. . PT Impaired gait No Improved Balance Description: LTG: Patient will demonstrate improved standing balance to meet functional goals as evidenced by TUG score of <28 to be achieved by 01/15/22. . PT Impaired balance No Demonstrate understanding of education Description: Patient and/or caregiver will understand educational instruction to be achieved by 01/15/22. . PT Learning Assessment No Patient/caregiver will demonstrate ability to obtain, store, identify and administer ordered medications, keep accurate medication list in home, and adhere to medication schedule Description: Patient/caregiver will demonstrate ability to obtain, store, identify and administer ordered medications, keep accurate medication list in home, and adhere to medication schedule by 01/15/22. Medication Education No Patient/caregiver will be able to identify and report symptoms of sepsis Description: Patient/caregiver will be able to identify signs/symptoms of sepsis infection and will verbalize actions to take if suspected by 01/15/22. . Sepsis No Patient to maintain parameters within physician-specified ranges throughout certification period Physician Specific Parameters No Manage Risk for falls Description: Patient/caregiver will verbalize knowledge of individualized fall prevention strategies by 01/15/22. . Risk for Falls No Manage Pain Description: Patient/caregiver will verbalize knowledge and understanding of appropriate techniques to control pain, including pain medication and non-pharmacological techniques. Patient will verbalize or demonstrate an acceptable level of pain as evidenced by a pain score of <5/10 and improvement in ability to perform activities of daily living to be achieved by 01/15/22. . Pain No Manage discharge planning Description: Patient/caregiver will verbalize understanding of ongoing discharge plan provided related to disease management, arrangements for outpatient and/or community services, obtaining medications, supplies, and DME, as needed throughout certification period. Discharge No Interventions Intervention Associated Problem/Goal Status Variance Visit Notes Physical Therapy Therapeutic Exercises Problem:PT Impaired muscle performance and/or ROM Goal:Improved Muscle Performance and/or ROM Completed patient instructed on strengthening exercises including seated blue tband hip abd and flexion, laq and heel toe raises x's 1 each. standing toe raises, hip abd and flexion, hamstring curls x's 15 each. with verbal and visual cues for correct form and pace. patient instructed to perform home exercise program twice a day which included above exercises . Physical Therapy Gait Training Problem:PT Impaired gait Goal:Improved Gait Completed Gait training and instruction to patient on safe ambulation with front wheeled walker for 2x's50 feet with supervision, with verbal cues for corrections of gait deviations including posture and staying c;loser to ww. Physical Therapy Balance Training Problem:PT Impaired balance Goal:Improved Balance Completed Developed, implemented, and instructed patient on standing balance exercises including lateral stepping at counter 5feet x's 4 w/ Paul UE support. step over w/ww 3concesx's 2laps w/ww. Instruct and educate on knowledge deficits Problem:PT Learning Assessment Goal:Demonstrate understanding of education Completed patient verbalize and/or demonstrate understanding of physical therapy education including home exercise program. Education methods include: verbal cues and visual cues. Further education required to improve knowledge and compliance with home exercise program. Medication Education Description: Evaluate/instruct patient/caregiver on obtaining, storing, identifying and administering ordered medications as well as keeping accurate medication list in the home and adhereing to medication schedule Problem:Medication Education Goal:Patient/caregive r will demonstrate ability to obtain, store, identify and administer ordered medications, keep accurate medication list in home, and adhere to medication schedule Completed Patient instructed on importance of keeping accurate medication list in home. Risk of Sepsis Description: Patient is at risk for sepsis. Monitor closely for s/s of sepsis. Problem:Sepsis Goal:Patient/caregive r will be able to identify and report symptoms of sepsis Completed SPO2 Description: Notify Dr. Bradley if pulse ox is <92% at rest. Problem:Physician Specific Parameters Goal:Patient to maintain parameters within physician-specified ranges throughout certification period Completed Instruct on individual fall risk factors and strategies to prevent falls and injuries caused by falls. Problem:Risk for Falls Goal:Manage Risk for falls Completed PT: Patient instructed on Managing Impaired Functional Mobility: Use assistive device(s): front wheeled walker Instruct on pain and instruct on strategies to control pain Problem:Pain Goal:Manage Pain Completed patient instructed on techniques to control pain including Non-Pharmacological measures; rest. Deliver [facility] Problem:Discharge Goal:Manage discharge planning Completed Delivered [facility] on 01/11/22 for discharge date of 01/13/22 Patient denies questions/concerns w/ form . Instruct on ongoing discharge plan Problem:Discharge Goal:Manage discharge planning Completed Ongoing Discharge plan: Discharge plan discussed with patient including frequency and duration for home PT and plan for transition to: live independently at home without ongoing services. documented in this encounter [facility]'s home Plan of care note* Visit Details Visit Type -PT REASSESSMENT Discipline -Physical Therapy Problems Problem Description Start Date Status Goals Interve ntions PT Impaired muscle performance and/or ROM Disciplines: PT 12/17/2021 Active 1 goal linked to scheduled/document ed intervention 1 goal intervention scheduled/document ed in this visit PT Impaired mobility Disciplines: PT 12/17/2021 Active 1 goal linked to scheduled/document ed intervention 1 goal intervention scheduled/document ed in this visit PT Impaired gait Disciplines: PT 12/17/2021 Active 1 goal linked to scheduled/document ed intervention 1 goal intervention scheduled/document ed in this visit PT Learning Assessment Disciplines: PT 12/17/2021 Active 1 goal linked to scheduled/document ed intervention 1 goal intervention scheduled/document ed in this visit Medication Education Disciplines: Skilled Services 12/17/2021 Active 1 goal linked to scheduled/document ed intervention 1 goal intervention scheduled/document ed in this visit Sepsis Disciplines: Skilled Services 12/17/2021 Active 1 goal linked to scheduled/document ed intervention 1 goal intervention scheduled/document ed in this visit Physician Specific Parameters Disciplines: Skilled Services 12/17/2021 Active 1 goal linked to scheduled/document ed intervention 1 goal intervention scheduled/document ed in this visit Risk for Falls Disciplines: Skilled Services 12/17/2021 Active 1 goal linked to scheduled/document ed intervention 1 goal intervention scheduled/document ed in this visit Pain Disciplines: Skilled Services 12/17/2021 Active 1 goal linked to scheduled/document ed intervention 1 goal intervention scheduled/document ed in this visit Discharge Disciplines: Skilled Services 12/17/2021 Active 1 goal linked to scheduled/document ed intervention 1 goal intervention scheduled/document ed in this visit Goals Goal Associated Problem Outcome Goal Met? Visit Notes Improved Muscle Performance and/or ROM Description: LTG: Patient will demonstrate improved muscle performance to meet functional goals as evidenced by ability to tolerate 5 sit to stands in 30 sec and tolerate 10 min of a standing activity, to be achieved by 01/15/22. . updated 01/13/22: to be achieved by 01/28/22 STG: Patient and/or caregiver will verbalize/demonstrate independence with home exercise program, to improve functional mobility, to be achieved by 12/25/21.updated 01/13/22: to be achieved by 01/28/22 LTG: Patient will demonstrate improved left hip active range of motion to 100* in standing degrees, to meet functional goals, to be achieved by 01/15/22. updated 01/13/22: to be achieved by 01/28/22 PT Impaired muscle performance and/or ROM No Improved Transfers Description: LTG: Patient will demonstrate safe transfers to/from bed, chair, toilet, shower/tub and car independently with AD, to be achieved by 01/15/22. . Updated 01/13/22: to be achieved by 01/28/22 PT Impaired mobility No Improved Gait Description: LTG: Patient will demonstrate improved gait ability as evidenced by ambulation 150 feet with rollator walker independently with AD, to return to safe household and community ambulation, in order to return to plf , to be achieved by 01/15/22. . update 01/13/22: ambulate for 3 minutes with FWW mod indep indicating improved endurance with adequate foot clearance to be met 01/28/22 PT Impaired gait No Demonstrate understanding of education Description: Patient and/or caregiver will understand educational instruction to be achieved by 01/15/22. . updated 01/13/22: to be achieved by 01/28/22 PT Learning Assessment No Patient/caregiver will demonstrate ability to obtain, store, identify and administer ordered medications, keep accurate medication list in home, and adhere to medication schedule Description: Patient/caregiver will demonstrate ability to obtain, store, identify and administer ordered medications, keep accurate medication list in home, and adhere to medication schedule by 01/15/22. updated 01/13/22: to be achieved by 01/28/22 Medication Education No Patient/caregiver will be able to identify and report symptoms of sepsis Description: Patient/caregiver will be able to identify signs/symptoms of sepsis infection and will verbalize actions to take if suspected by 01/15/22. updated 01/13/22: to be achieved by 01/28/22. Sepsis No Patient to maintain parameters within physician-specified ranges throughout certification period Physician Specific Parameters No Manage Risk for falls Description: Patient/caregiver will verbalize knowledge of individualized fall prevention strategies by 01/15/22. updated 01/13/22: to be achieved by 01/28/22 Risk for Falls No Manage Pain Description: Patient/caregiver will verbalize knowledge and understanding of appropriate techniques to control pain, including pain medication and non-pharmacological techniques. Patient will verbalize or demonstrate an acceptable level of pain as evidenced by a pain score of <5/10 and improvement in ability to perform activities of daily living to be achieved by 01/15/22. updated 01/13/22: to be achieved by 01/28/22 Pain No Manage discharge planning Description: Patient/caregiver will verbalize understanding of ongoing discharge plan provided related to disease management, arrangements for outpatient and/or community services, obtaining medications, supplies, and DME, as needed throughout certification period. Discharge No Interventions Intervention Associated Problem/Goal Status Variance Visit Notes Physical Therapy Therapeutic Exercises Problem:PT Impaired muscle performance and/or ROM Goal:Improved Muscle Performance and/or ROM Completed patient instructed on strengthening exercises including ist to stands x 8 reps with verbal cues for full uprght position. patient instructed to perform home exercise program twice a day which included previous program. Physical Therapy Transfer Training Problem:PT Impaired mobility Goal:Improved Transfers Completed Transfer training and instruction to patient on safe transfers to and from bed and chair with supervision and verbal and visual cues for correct hand placement. Physical Therapy Gait Training Problem:PT Impaired gait Goal:Improved Gait Completed Gait training and instruction to patient on safe ambulation with rollator walker for 3 mintues 20 seconds, , with decrease in pace and increased shuffle after 1.5 minutes with supervision, with verbal cues for corrections of gait deviations including increasing heel strike and upright posture. Instruct and educate on knowledge deficits Problem:PT Learning Assessment Goal:Demonstrate understanding of education Completed patient verbalize and/or demonstrate understanding of physical therapy education including pain management, fall prevention strategies, functional activity and home exercise program. Education methods include: verbal cues. Further education required to improve knowledge and compliance with pain management, fall prevention strategies, functional activity and home exercise program. Medication Education Description: Evaluate/instruct patient/caregiver on obtaining, storing, identifying and administering ordered medications as well as keeping accurate medication list in the home and adhereing to medication schedule Problem:Medication Education Goal:Patient/caregive r will demonstrate ability to obtain, store, identify and administer ordered medications, keep accurate medication list in home, and adhere to medication schedule Completed Patient instructed on adhering to medication schedule. Risk of Sepsis Description: Patient is at risk for sepsis. Monitor closely for s/s of sepsis. Problem:Sepsis Goal:Patient/caregive r will be able to identify and report symptoms of sepsis Completed SPO2 Description: Notify Dr. Bradley if pulse ox is <92% at rest. Problem:Physician Specific Parameters Goal:Patient to maintain parameters within physician-specified ranges throughout certification period Completed Instruct on individual fall risk factors and strategies to prevent falls and injuries caused by falls. Problem:Risk for Falls Goal:Manage Risk for falls Completed PT: Patient instructed on Eliminating Environmental Hazards: Keep pathways clear, Keep rooms and walkways well lit, Wear supportive shoes or non-skid socks and Keep frequently used items within reach Managing Impaired Functional Mobility: Use assistive device(s): rollator walker Managing Pain Instruct on pain and instruct on strategies to control pain Problem:Pain Goal:Manage Pain Completed patient instructed on techniques to control pain including Pharmacological measures and Non-Pharmacological measures; rest. Instruct on ongoing discharge plan Problem:Discharge Goal:Manage discharge planning Completed Ongoing Discharge plan: Discharge plan discussed with patient including frequency and duration for home PT and plan for transition to: live independently at home without ongoing services. 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 -Physical Therapy Problems Problem Description Start Date Status Goals Interve ntions PT Impaired muscle performance and/or ROM Disciplines: PT 12/17/2021 Active 1 goal linked to scheduled/document ed intervention 1 goal intervention scheduled/document ed in this visit PT Impaired mobility Disciplines: PT 12/17/2021 Active 1 goal linked to scheduled/document ed intervention 1 goal intervention scheduled/document ed in this visit PT Impaired gait Disciplines: PT 12/17/2021 Active 1 goal linked to scheduled/document ed intervention 1 goal intervention scheduled/document ed in this visit PT Impaired balance Disciplines: PT 12/17/2021 Active 1 goal linked to scheduled/document ed intervention 1 goal intervention scheduled/document ed in this visit PT Learning Assessment Disciplines: PT 12/17/2021 Active 1 goal linked to scheduled/document ed intervention 1 goal intervention scheduled/document ed in this visit Medication Education Disciplines: Skilled Services 12/17/2021 Active 1 goal linked to scheduled/document ed intervention 1 goal intervention scheduled/document ed in this visit Sepsis Disciplines: Skilled Services 12/17/2021 Active 1 goal linked to scheduled/document ed intervention 1 goal intervention scheduled/document ed in this visit Physician Specific Parameters Disciplines: Skilled Services 12/17/2021 Active 1 goal linked to scheduled/document ed intervention 1 goal intervention scheduled/document ed in this visit Risk for Falls Disciplines: Skilled Services 12/17/2021 Active 1 goal linked to scheduled/document ed intervention 1 goal intervention scheduled/document ed in this visit Pain Disciplines: Skilled Services 12/17/2021 Active 1 goal linked to scheduled/document ed intervention 1 goal intervention scheduled/document ed in this visit Discharge Disciplines: Skilled Services 12/17/2021 Active 1 goal linked to scheduled/document ed intervention 1 goal intervention scheduled/document ed in this visit Goals Goal Associated Problem Outcome Goal Met? Visit Notes Improved Muscle Performance and/or ROM Description: LTG: Patient will demonstrate improved muscle performance to meet functional goals as evidenced by ability to tolerate 5 sit to stands in 30 sec and tolerate 10 min of a standing activity, to be achieved by 01/15/22. . updated 01/13/22: to be achieved by 01/28/22 STG: Patient and/or caregiver will verbalize/demonstrate independence with home exercise program, to improve functional mobility, to be achieved by 12/25/21.updated 01/13/22: to be achieved by 01/28/22 LTG: Patient will demonstrate improved left hip active range of motion to 100* in standing degrees, to meet functional goals, to be achieved by 01/15/22. updated 01/13/22: to be achieved by 01/28/22 PT Impaired muscle performance and/or ROM No Improved Transfers Description: LTG: Patient will demonstrate safe transfers to/from bed, chair, toilet, shower/tub and car independently with AD, to be achieved by 01/15/22. . Updated 01/13/22: to be achieved by 01/28/22 PT Impaired mobility No Improved Gait Description: LTG: Patient will demonstrate improved gait ability as evidenced by ambulation 150 feet with rollator walker independently with AD, to return to safe household and community ambulation, in order to return to plf , to be achieved by 01/15/22. . update 01/13/22: ambulate for 3 minutes with FWW mod indep indicating improved endurance with adequate foot clearance to be met 01/28/22 PT Impaired gait No Improved Balance Description: LTG: Patient will demonstrate improved standing balance to meet functional goals as evidenced by TUG score of <28 to be achieved by 01/15/22. . MET 01/13/22 PT Impaired balance No Demonstrate understanding of education Description: Patient and/or caregiver will understand educational instruction to be achieved by 01/15/22. . updated 01/13/22: to be achieved by 01/28/22 PT Learning Assessment No Patient/caregiver will demonstrate ability to obtain, store, identify and administer ordered medications, keep accurate medication list in home, and adhere to medication schedule Description: Patient/caregiver will demonstrate ability to obtain, store, identify and administer ordered medications, keep accurate medication list in home, and adhere to medication schedule by 01/15/22. updated 01/13/22: to be achieved by 01/28/22 Medication Education No Patient/caregiver will be able to identify and report symptoms of sepsis Description: Patient/caregiver will be able to identify signs/symptoms of sepsis infection and will verbalize actions to take if suspected by 01/15/22. updated 01/13/22: to be achieved by 01/28/22. Sepsis No Patient to maintain parameters within physician-specified ranges throughout certification period Physician Specific Parameters No Manage Risk for falls Description: Patient/caregiver will verbalize knowledge of individualized fall prevention strategies by 01/15/22. updated 01/13/22: to be achieved by 01/28/22 Risk for Falls No Manage Pain Description: Patient/caregiver will verbalize knowledge and understanding of appropriate techniques to control pain, including pain medication and non-pharmacological techniques. Patient will verbalize or demonstrate an acceptable level of pain as evidenced by a pain score of <5/10 and improvement in ability to perform activities of daily living to be achieved by 01/15/22. updated 01/13/22: to be achieved by 01/28/22 Pain No Manage discharge planning Description: Patient/caregiver will verbalize understanding of ongoing discharge plan provided related to disease management, arrangements for outpatient and/or community services, obtaining medications, supplies, and DME, as needed throughout certification period. Discharge No Interventions Intervention Associated Problem/Goal Status Variance Visit Notes Physical Therapy Therapeutic Exercises Problem:PT Impaired muscle performance and/or ROM Goal:Improved Muscle Performance and/or ROM Completed patient instructed on strengthening exercises including standing hip abd and flexion, hamstring curls x's 10 each. seated: laq, hip flexion and adduction and heel raises x's 10 each. with verbal cues for correct pace . patient instructed to perform home exercise program twice a day which included above exercises . Physical Therapy Transfer Training Problem:PT Impaired mobility Goal:Improved Transfers Completed Transfer training and instruction to patient on safe transfers to and from chair with supervision and verbal cues for reaching back for chair Physical Therapy Gait Training Problem:PT Impaired gait Goal:Improved Gait Completed Gait training and instruction to patient on safe ambulation with front wheeled walker for 2x's 80 feet with stand by assist, with verbal cues for corrections of gait deviations including posture and staying closer to walker. Physical Therapy Balance Training Problem:PT Impaired balance Goal:Improved Balance Completed Developed, implemented, and instructed patient on standing balance exercises including lateral stepping at counter 5feet x's 4. Instruct and educate on knowledge deficits Problem:PT Learning Assessment Goal:Demonstrate understanding of education Completed patient verbalize and/or demonstrate understanding of physical therapy education including home exercise program. Education methods include: verbal cues. Further education required to improve knowledge and compliance with home exercise program. Medication Education Description: Evaluate/instruct patient/caregiver on obtaining, storing, identifying and administering ordered medications as well as keeping accurate medication list in the home and adhereing to medication schedule Problem:Medication Education Goal:Patient/caregive r will demonstrate ability to obtain, store, identify and administer ordered medications, keep accurate medication list in home, and adhere to medication schedule Completed Patient instructed on importance of keeping accurate medication list in home. Risk of Sepsis Description: Patient is at risk for sepsis. Monitor closely for s/s of sepsis. Problem:Sepsis Goal:Patient/caregive r will be able to identify and report symptoms of sepsis Completed SPO2 Description: Notify Dr. Bradley if pulse ox is <92% at rest. Problem:Physician Specific Parameters Goal:Patient to maintain parameters within physician-specified ranges throughout certification period Completed Instruct on individual fall risk factors and strategies to prevent falls and injuries caused by falls. Problem:Risk for Falls Goal:Manage Risk for falls Completed PT: Patient instructed on Managing Impaired Functional Mobility: Use assistive device(s): front wheeled walker Instruct on pain and instruct on strategies to control pain Problem:Pain Goal:Manage Pain Completed patient instructed on techniques to control pain including Non-Pharmacological measures; positioning/elevation . Instruct on ongoing discharge plan Problem:Discharge Goal:Manage discharge planning Completed Ongoing Discharge plan: Discharge plan discussed with patient including frequency and duration for home PT and plan for transition to: live independently at home without ongoing services. 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 -Physical Therapy Problems Problem Description Start Date Status Goals Interve ntions PT Impaired muscle performance and/or ROM Disciplines: PT 12/17/2021 Active 1 goal linked to scheduled/document ed intervention 1 goal intervention scheduled/document ed in this visit PT Impaired mobility Disciplines: PT 12/17/2021 Active 1 goal linked to scheduled/document ed intervention 1 goal intervention scheduled/document ed in this visit PT Impaired gait Disciplines: PT 12/17/2021 Active 1 goal linked to scheduled/document ed intervention 1 goal intervention scheduled/document ed in this visit PT Impaired balance Disciplines: PT 12/17/2021 Active 1 goal linked to scheduled/document ed intervention 1 goal intervention scheduled/document ed in this visit PT Learning Assessment Disciplines: PT 12/17/2021 Active 1 goal linked to scheduled/document ed intervention 1 goal intervention scheduled/document ed in this visit Medication Education Disciplines: Skilled Services 12/17/2021 Active 1 goal linked to scheduled/document ed intervention 1 goal intervention scheduled/document ed in this visit Sepsis Disciplines: Skilled Services 12/17/2021 Active 1 goal linked to scheduled/document ed intervention 1 goal intervention scheduled/document ed in this visit Physician Specific Parameters Disciplines: Skilled Services 12/17/2021 Active 1 goal linked to scheduled/document ed intervention 1 goal intervention scheduled/document ed in this visit Risk for Falls Disciplines: Skilled Services 12/17/2021 Active 1 goal linked to scheduled/document ed intervention 1 goal intervention scheduled/document ed in this visit Pain Disciplines: Skilled Services 12/17/2021 Active 1 goal linked to scheduled/document ed intervention 1 goal intervention scheduled/document ed in this visit Discharge Disciplines: Skilled Services 12/17/2021 Active 1 goal linked to scheduled/document ed intervention 2 goal interventions scheduled/document ed in this visit Goals Goal Associated Problem Outcome Goal Met? Visit Notes Improved Muscle Performance and/or ROM Description: LTG: Patient will demonstrate improved muscle performance to meet functional goals as evidenced by ability to tolerate 5 sit to stands in 30 sec and tolerate 10 min of a standing activity, to be achieved by 01/15/22. . updated 01/13/22: to be achieved by 01/28/22 STG: Patient and/or caregiver will verbalize/demonstrate independence with home exercise program, to improve functional mobility, to be achieved by 12/25/21.updated 01/13/22: to be achieved by 01/28/22 LTG: Patient will demonstrate improved left hip active range of motion to 100* in standing degrees, to meet functional goals, to be achieved by 01/15/22. updated 01/13/22: to be achieved by 01/28/22 PT Impaired muscle performance and/or ROM No Improved Transfers Description: LTG: Patient will demonstrate safe transfers to/from bed, chair, toilet, shower/tub and car independently with AD, to be achieved by 01/15/22. . Updated 01/13/22: to be achieved by 01/28/22 PT Impaired mobility No Improved Gait Description: LTG: Patient will demonstrate improved gait ability as evidenced by ambulation 150 feet with rollator walker independently with AD, to return to safe household and community ambulation, in order to return to plf , to be achieved by 01/15/22. . update 01/13/22: ambulate for 3 minutes with FWW mod indep indicating improved endurance with adequate foot clearance to be met 01/28/22 PT Impaired gait No Improved Balance Description: LTG: Patient will demonstrate improved standing balance to meet functional goals as evidenced by TUG score of <28 to be achieved by 01/15/22. . MET 01/13/22 PT Impaired balance No Demonstrate understanding of education Description: Patient and/or caregiver will understand educational instruction to be achieved by 01/15/22. . updated 01/13/22: to be achieved by 01/28/22 PT Learning Assessment No Patient/caregiver will demonstrate ability to obtain, store, identify and administer ordered medications, keep accurate medication list in home, and adhere to medication schedule Description: Patient/caregiver will demonstrate ability to obtain, store, identify and administer ordered medications, keep accurate medication list in home, and adhere to medication schedule by 01/15/22. updated 01/13/22: to be achieved by 01/28/22 Medication Education No Patient/caregiver will be able to identify and report symptoms of sepsis Description: Patient/caregiver will be able to identify signs/symptoms of sepsis infection and will verbalize actions to take if suspected by 01/15/22. updated 01/13/22: to be achieved by 01/28/22. Sepsis No Patient to maintain parameters within physician-specified ranges throughout certification period Physician Specific Parameters No Manage Risk for falls Description: Patient/caregiver will verbalize knowledge of individualized fall prevention strategies by 01/15/22. updated 01/13/22: to be achieved by 01/28/22 Risk for Falls No Manage Pain Description: Patient/caregiver will verbalize knowledge and understanding of appropriate techniques to control pain, including pain medication and non-pharmacological techniques. Patient will verbalize or demonstrate an acceptable level of pain as evidenced by a pain score of <5/10 and improvement in ability to perform activities of daily living to be achieved by 01/15/22. updated 01/13/22: to be achieved by 01/28/22 Pain No Manage discharge planning Description: Patient/caregiver will verbalize understanding of ongoing discharge plan provided related to disease management, arrangements for outpatient and/or community services, obtaining medications, supplies, and DME, as needed throughout certification period. Discharge No Interventions Intervention Associated Problem/Goal Status Variance Visit Notes Physical Therapy Therapeutic Exercises Problem:PT Impaired muscle performance and/or ROM Goal:Improved Muscle Performance and/or ROM Completed patient instructed on strengthening exercises including seated: laq, hip flexion and adduction x's 15each. standing hip f;lexion and abduction, hamstring curls x's 10 each with verbal cues for posture and pacing . patient instructed to perform home exercise program twice a day which included above exercises . Physical Therapy Transfer Training Problem:PT Impaired mobility Goal:Improved Transfers Completed Transfer training and instruction to patient on safe transfers to and from chair with supervision and verbal cues for reaching back for chair . Physical Therapy Gait Training Problem:PT Impaired gait Goal:Improved Gait Completed Gait training and instruction to patient on safe ambulation with rollator walker for 2x's 80 feet with supervision, with verbal cues for corrections of gait deviations including staying closer to walker for upright posture and safety. Physical Therapy Balance Training Problem:PT Impaired balance Goal:Improved Balance Completed Developed, implemented, and instructed patient on standing balance exercises including standing exercises . Instruct and educate on knowledge deficits Problem:PT Learning Assessment Goal:Demonstrate understanding of education Completed patient verbalize and/or demonstrate understanding of physical therapy education including home exercise program. Education methods include: verbal cues and visual cues. Further education required to improve knowledge and compliance with home exercise program. Medication Education Description: Evaluate/instruct patient/caregiver on obtaining, storing, identifying and administering ordered medications as well as keeping accurate medication list in the home and adhereing to medication schedule Problem:Medication Education Goal:Patient/caregive r will demonstrate ability to obtain, store, identify and administer ordered medications, keep accurate medication list in home, and adhere to medication schedule Completed Patient instructed on importance of keeping accurate medication list in home and adhering to medication schedule. Risk of Sepsis Description: Patient is at risk for sepsis. Monitor closely for s/s of sepsis. Problem:Sepsis Goal:Patient/caregive r will be able to identify and report symptoms of sepsis Completed SPO2 Description: Notify Dr. Bradley if pulse ox is <92% at rest. Problem:Physician Specific Parameters Goal:Patient to maintain parameters within physician-specified ranges throughout certification period Completed Instruct on individual fall risk factors and strategies to prevent falls and injuries caused by falls. Problem:Risk for Falls Goal:Manage Risk for falls Completed PT: Patient instructed on Managing Impaired Functional Mobility: Use assistive device(s): front wheeled walker and rollator walker Instruct on pain and instruct on strategies to control pain Problem:Pain Goal:Manage Pain Completed patient instructed on techniques to control pain including Pharmacological measures and Non-Pharmacological measures; rest. Deliver NOM[facility] Problem:Discharge Goal:Manage discharge planning Completed Delivered NOM[facility] on 01/24/22 for discharge date of . Patient denies questions/concerns w/form Instruct on ongoing discharge plan Problem:Discharge Goal:Manage discharge planning Completed Ongoing Discharge plan: Discharge plan discussed with patient including frequency and duration for home PT and plan for transition to: caregiver assistance. [facility] Visit Details Visit Type -PT AGENCY DC W Jorje FELDMANT Discipline -Physical Therapy Problems Problem Description Start Date Status Goals Interve ntions PT Impaired muscle performance and/or ROM Disciplines: PT 12/17/2021 Resolved on 01/26/2022 1 goal linked to scheduled/documen moni intervention 1 goal intervention scheduled/document ed in this visit PT Impaired mobility Disciplines: PT 12/17/2021 Resolved on 01/26/2022 1 goal linked to scheduled/documen moni intervention 1 goal intervention scheduled/document ed in this visit PT Impaired gait Disciplines: PT 12/17/2021 Resolved on 01/26/2022 1 goal linked to scheduled/documen moni intervention 1 goal intervention scheduled/document ed in this visit PT Impaired balance Disciplines: PT 12/17/2021 Resolved on 01/26/2022 1 goal linked to scheduled/documen moni intervention 1 goal intervention scheduled/document ed in this visit PT Learning Assessment Disciplines: PT 12/17/2021 Resolved on 01/26/2022 1 goal linked to scheduled/documen moni intervention 1 goal intervention scheduled/document ed in this visit Medication Education Disciplines: Skilled Services 12/17/2021 Resolved on 01/26/2022 1 goal linked to scheduled/documen moni intervention 1 goal intervention scheduled/document ed in this visit Sepsis Disciplines: Skilled Services 12/17/2021 Resolved on 01/26/2022 1 goal linked to scheduled/documen moni intervention 1 goal intervention scheduled/document ed in this visit Physician Specific Parameters Disciplines: Skilled Services 12/17/2021 Resolved on 01/26/2022 1 goal linked to scheduled/documen moni intervention 1 goal intervention scheduled/document ed in this visit Risk for Falls Disciplines: Skilled Services 12/17/2021 Resolved on 01/26/2022 1 goal linked to scheduled/documen moni intervention 1 goal intervention scheduled/document ed in this visit Pain Disciplines: Skilled Services 12/17/2021 Resolved on 01/26/2022 1 goal linked to scheduled/documen moni intervention 1 goal intervention scheduled/document ed in this visit Discharge Disciplines: Skilled Services 12/17/2021 Resolved on 01/26/2022 1 goal linked to scheduled/documen moni intervention 1 goal intervention scheduled/document ed in this visit Goals Goal Associated Problem Outcome Goal Met? Visit Notes Improved Muscle Performance and/or ROM Description: LTG: Patient will demonstrate improved muscle performance to meet functional goals as evidenced by ability to tolerate 5 sit to stands in 30 sec and tolerate 10 min of a standing activity, to be achieved by 01/15/22. . updated 01/13/22: to be achieved by 01/28/22 STG: Patient and/or caregiver will verbalize/demonstrate independence with home exercise program, to improve functional mobility, to be achieved by 12/25/21.updated 01/13/22: to be achieved by 01/28/22 LTG: Patient will demonstrate improved left hip active range of motion to 100* in standing degrees, to meet functional goals, to be achieved by 01/15/22. updated 01/13/22: to be achieved by 01/28/22 PT Impaired muscle performance and/or ROM Completed Yes Improved Transfers Description: LTG: Patient will demonstrate safe transfers to/from bed, chair, toilet, shower/tub and car independently with AD, to be achieved by 01/15/22. . Updated 01/13/22: to be achieved by 01/28/22 PT Impaired mobility Completed Yes Improved Gait Description: LTG: Patient will demonstrate improved gait ability as evidenced by ambulation 150 feet with rollator walker independently with AD, to return to safe household and community ambulation, in order to return to plf , to be achieved by 01/15/22. . update 01/13/22: ambulate for 3 minutes with FWW mod indep indicating improved endurance with adequate foot clearance to be met 01/28/22 PT Impaired gait Completed Yes Improved Balance Description: LTG: Patient will demonstrate improved standing balance to meet functional goals as evidenced by TUG score of <28 to be achieved by 01/15/22. . MET 01/13/22 PT Impaired balance Completed Yes Demonstrate understanding of education Description: Patient and/or caregiver will understand educational instruction to be achieved by 01/15/22. . updated 01/13/22: to be achieved by 01/28/22 PT Learning Assessment Completed Yes Patient/caregiver will demonstrate ability to obtain, store, identify and administer ordered medications, keep accurate medication list in home, and adhere to medication schedule Description: Patient/caregiver will demonstrate ability to obtain, store, identify and administer ordered medications, keep accurate medication list in home, and adhere to medication schedule by 01/15/22. updated 01/13/22: to be achieved by 01/28/22 Medication Education Completed Yes Patient/caregiver will be able to identify and report symptoms of sepsis Description: Patient/caregiver will be able to identify signs/symptoms of sepsis infection and will verbalize actions to take if suspected by 01/15/22. updated 01/13/22: to be achieved by 01/28/22. Sepsis Completed Yes Patient to maintain parameters within physician-specified ranges throughout certification period Physician Specific Parameters Completed Yes Manage Risk for falls Description: Patient/caregiver will verbalize knowledge of individualized fall prevention strategies by 01/15/22. updated 01/13/22: to be achieved by 01/28/22 Risk for Falls Completed Yes Manage Pain Description: Patient/caregiver will verbalize knowledge and understanding of appropriate techniques to control pain, including pain medication and non-pharmacological techniques. Patient will verbalize or demonstrate an acceptable level of pain as evidenced by a pain score of <5/10 and improvement in ability to perform activities of daily living to be achieved by 01/15/22. updated 01/13/22: to be achieved by 01/28/22 Pain Completed Yes Manage discharge planning Description: Patient/caregiver will verbalize understanding of ongoing discharge plan provided related to disease management, arrangements for outpatient and/or community services, obtaining medications, supplies, and DME, as needed throughout certification period. Discharge Completed Yes Interventions Intervention Associated Problem/Goal Status Variance Visit Notes Physical Therapy Therapeutic Exercises Problem:PT Impaired muscle performance and/or ROM Goal:Improved Muscle Performance and/or ROM Completed patient instructed on strengthening exercises including seated: laq, hip flexion and adduction x's 15each. standing hip f;lexion and abduction, hamstring curls x's 10 each with verbal cues for posture and pacing . patient instructed to perform home exercise program twice a day which included above exercises Physical Therapy Transfer Training Problem:PT Impaired mobility Goal:Improved Transfers Completed Transfers are VAZQUEZ with safe/proper technique Physical Therapy Gait Training Problem:PT Impaired gait Goal:Improved Gait Completed Indep amb with WW with steady recip pattern, pt must make an effort to shredder picker his toes , has no toe off Physical Therapy Balance Training Problem:PT Impaired balance Goal:Improved Balance Completed pt demonstrates improved dynamic standing balance as evidenced by a tug of 28 Instruct and educate on knowledge deficits Problem:PT Learning Assessment Goal:Demonstrate understanding of education Completed patient verbalize and/or demonstrate understanding of physical therapy education including pain management, fall prevention strategies, home safety, functional activity and home exercise program. Education methods include: verbal cues. Medication Education Description: Evaluate/instruct patient/caregiver on obtaining, storing, identifying and administering ordered medications as well as keeping accurate medication list in the home and adhereing to medication schedule Problem:Medication Education Goal:Patient/caregive r will demonstrate ability to obtain, store, identify and administer ordered medications, keep accurate medication list in home, and adhere to medication schedule Completed Patient instructed on importance of keeping accurate medication list in home and adhering to medication schedule. Risk of Sepsis Description: Patient is at risk for sepsis. Monitor closely for s/s of sepsis. Problem:Sepsis Goal:Patient/caregive r will be able to identify and report symptoms of sepsis Completed SPO2 Description: Notify Dr. Bradley if pulse ox is <92% at rest. Problem:Physician Specific Parameters Goal:Patient to maintain parameters within physician-specified ranges throughout certification period Completed Instruct on individual fall risk factors and strategies to prevent falls and injuries caused by falls. Problem:Risk for Falls Goal:Manage Risk for falls Completed PT: Patient instructed on Eliminating Environmental Hazards: Keep pathways clear, Keep pets out of pathways and Remove unsafe rugs Managing Impaired Functional Mobility: Use assistive device(s): front wheeled walker Managing Pain Instruct on pain and instruct on strategies to control pain Problem:Pain Goal:Manage Pain Completed patient instructed on techniques to control pain including Pharmacological measures and Non-Pharmacological measures; rest and positioning/elevation. Instruct on final discharge plan and deliver discharge instructions Problem:Discharge Goal:Manage discharge planning Completed Delivered Discharge plan: Discharge plan discussed with patient for plan for transition to: live at home with community assistance [facility] Diagnostic Procedure Only (Routine) - Closed Specialty Diagnoses / Procedures Referred By Steve anaya Referred To Contact XR IMAGING Diagnoses Monoclonal gammopathy Procedures XR BONE SURVEY ROUTINE RADIOLOGIC EXAMINATION OSSEOUS SURVEY COMPL Yuniel Dahl DO [address] [place] [address] Xr Imaging Referral ID Status Reason Start Date Expiration Date V isits Requested Visits Authorized [id number] Closed Auto-Generate d Referral 03/22/2022 04/21/2023 1 1 * Diagnostic Procedure Only (Routine) - Authorized Specialty Diagnoses / Procedures Referred By Steve anaya Referred To Contact US IMAGING Diagnoses Monoclonal gammopathy Macrocytic anemia Thrombocytopenia (HCC) Procedures US ABD RT UPPER QUADRANT US ABDOMINAL REAL TIME W/IMAGE LIMITED Yuniel Dahl, DO [address] [place], [place] [id number] [facility] Referral ID Status Reason Start Date Expiration Date Visits Requested Visits Authorized [id number] Authorized Auto-Generat ed Referral 03/22/2022 04/21/2023 1 1 [facility] for referral (narrative)* Outpatient Procedure (Routine) - Authorized Specialty Diagnoses / Procedures Referred By Steve t Referred To Contact [facility] [place] Diagnoses Melena Procedures EGD - THERAPEUTIC, EUS, OR TUBE INTERVENTIONS EGD BAND LIGATION ESOPHGEAL/GASTRIC VARICES Haley Hampton MD [address] [place] [address] [place] [address] Referral ID Status Reason Start Date Expiration Date Visits Requested Visits Authorized [id number] Authorized Auto-Generat ed Referral 3 02/03/2024 1 1 [facility] for referral (narrative)* Diagnostic Procedure Only (Routine) - Closed Specialty Diagnoses / Procedures Referred By Contac t Referred To Contact [facility] Diagnoses Monoclonal gammopathy Macrocytic anemia Thrombocytopenia (HCC) Procedures US ABD RT UPPER QUADRANT US ABDOMINAL REAL TIME W/IMAGE LIMITED Yuniel Dahl DO [address] [place] [address] [place] [address] Referral ID Status Reason Start Date Expiration Date V isits Requested Visits Authorized [id number] Closed Auto-Generate d Referral 03/22/2022 04/21/2023 1 1 [facility] Summary Purpose Family History No Family History Records FoundNo Family History Records FoundNo Family History Records FoundNo Family History Records FoundNo Family History Records FoundNo Family History Records Found Advance Directives No Advanced Directives Records FoundDocuments on File Type Date Recorded Patient Dental Patient Coordinator Expl anation Advance Directive(s) 05/09/2019 9:27 AM Advance Directive(s) 04/24/2019 5:47 PM Advance Directive(s) 10/02/2017 11:22 AM Documents on File Type Date Recorded Patient Dental Patient Coordinator Expl anation Advance Directive(s) 05/09/2019 9:27 AM Advance Directive(s) 04/24/2019 5:47 PM Advance Directive(s) 10/02/2017 11:22 AM Latest Code Status on File Code Status Date Activated Date Inactivated Comments Full Code 12/17/2021 7:21 PM Latest Code Status on File Code Status Date Activated Date Inactivated Comments Full Code 12/17/2021 7:21 PM Latest Code Status on File Code Status Date Activated Date Inactivated Comments Full Code 12/17/2021 7:21 PM 07/28/2022 2:18 AM Latest Code Status on File Code Status Date Activated Date Inactivated Comments Full Code 12/17/2021 7:21 PM 07/28/2022 2:18 AM Latest Code Status on File Code Status Date Activated Date Inactivated Comments Full Code 12/17/2021 7:21 PM 07/28/2022 2:18 AM Latest Code Status on File Code Status Date Activated Date Inactivated Comments Full Code 12/17/2021 7:21 PM 07/28/2022 2:18 AM Reason for Referral Specialty Diagnoses / Procedures Referred By Contac t Referred To Contact Gastroenterology Diagnoses Adenomatous polyp of colon, unspecified part of colon Procedures CONSULT TO GASTROENTEROLOGY Ricky Bradley MD [address] [place] [address] Referral ID Status Reason Start Date Expiration Date Visits Requested Visits Authorized [id number] Ref Not Required PCP Requested Referral 11/04/2021 11/04/2022 1 1 Specialty Diagnoses / Procedures Referred By Contac t Referred To Contact Diagnoses Peripheral polyneuropathy Frequent falls Contusion of hip, unspecified laterality, subsequent encounter Muscular weakness Abnormality of gait Procedures CONSULT TO [facility] Ricky Bradley MD [address] [place] [address] [address] [place] [id number] Referral ID Status Reason Start Date Expiration Date Visits Requested Visits Authorized [id number] Authorized PCP Requested Referral 12/11/2021 03/11/2022 1 1 Specialty Diagnoses / Procedures Referred By Contac t Referred To Contact Diagnoses Frequent falls Peripheral polyneuropathy Procedures CONSULT TO NEUROLOGY Ricky Bradley MD [address] [place] [address] Referral ID Status Reason Start Date Expiration Date Visits Requested Visits Authorized [id number] Ref Not Required PCP Requested Referral 01/19/2022 01/17/2023 1 1 Specialty Diagnoses / Procedures Referred By Contac t Referred To Contact [facility] Diagnoses Peripheral polyneuropathy Abnormality of gait Procedures 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 OCCUPATIONAL THERAPY EVAL HIGH COMPLEX 60 MINS Ricky Bradley MD [address] [place] [address] [facility] [id number] [place] [address] Referral ID Status Reason Start Date Expiration Date Visits Requested Visits Authorized [id number] Authorized PCP Requested Referral Auto-Generate d Referral 01/31/2023 99 99 Specialty Diagnoses / Procedures Referred By Contac t Referred To Contact [facility] Diagnoses Cirrhosis of liver without ascites, unspecified hepatic cirrhosis type (HCC) Liver mass Splenomegaly Procedures MRI LIVER WO/W IVCON MRI ABDOMEN W/O & W/CONTRAST MATERIAL Kai Alvarado PA-C [address] [place] [address] [facility] Referral ID Status Reason Start Date Expiration Date Visits Requested Visits Authorized [id number] Pending Review Auto-Generat ed Referral 05/13/2022 06/12/2023 1 1 Referral ID Status Reason Start Date Expiration Date V isits Requested Visits Authorized [id number] Closed Auto-Generate d Referral 05/13/2022 06/12/2023 1 1 Specialty Diagnoses / Procedures Referred By Contac t Referred To Contact Diagnoses Hepatocellular carcinoma (HCC) Procedures CT SIM PLANNING RADIATION ONCOLOGY THER RAD SIMULAJ-AIDED [place] [address] [place] [address] Referral ID Status Reason Start Date Expiration Date Visits Requested Visits Authorized [id number] Pending Review PCP Requested Referral 08/16/2022 11/13/2022 1 1 Specialty Diagnoses / Procedures Referred By Steve anaya Referred To Contact [facility] Diagnoses Liver disease Procedures MRI LIVER WO/W IVCON MRI ABDOMEN W/O & W/[place] [address] [place] [address] [place] [id number] Referral ID Status Reason Start Date Expiration Date V isits Requested Visits Authorized [id number] Closed Auto-Generate d Referral 12/16/2022 10/03/2023 1 1 Medications Administered Section Inactive Administered Medications - up to 3 most recent administrations Medication Order MAR Action Action Date Dose Rate Site iron sucrose 200 mg in NaCl 0.9% 100ml (VENOFER) 200 mg, INTRAVENOUS, at 400 mL/hr, Administer over 15 Minutes, ONCE, 1 dose, On Mon05/06/22 at 1500, Please conduct a 30 minute post dose observation. New Bag/Syringe/Bottle 05/06/2022 3:11 PM EST 200 mg 400 mL/hr Inactive Administered Medications - up to 3 most recent administrations Medication Order MAR Action Action Date Dose Rate Site iron sucrose 200 mg in NaCl 0.9% 100ml (VENOFER) 200 mg, INTRAVENOUS, at 400 mL/hr, Administer over 15 Minutes, ONCE, 1 dose, On Mon05/11/22 at 1500, Please conduct a 30 minute post dose observation. New Bag/Syringe/Bottle 05/11/2022 3:10 PM EST 200 mg 400 mL/hr Inactive Administered Medications - up to 3 most recent administrations Medication Order MAR Action Action Date Dose Rate Site iron sucrose 200 mg in NaCl 0.9% 100ml (VENOFER) 200 mg, INTRAVENOUS, at 400 mL/hr, Administer over 15 Minutes, ONCE, 1 dose, On Mon05/16/22 at 1530, Please conduct a 30 minute post dose observation. New Bag/Syringe/Bottle 05/16/2022 3:45 PM EST 200 mg 400 mL/hr Inactive Administered Medications - up to 3 most recent administrations Medication Order MAR Action Action Date Dose Rate Site iron sucrose 200 mg in NaCl 0.9% 100ml (VENOFER) 200 mg, INTRAVENOUS, at 400 mL/hr, Administer over 15 Minutes, ONCE, 1 dose, On Mon05/18/22 at 1530, Please conduct a 30 minute post dose observation. New Bag/Syringe/Bottle 05/18/2022 3:14 PM EST 200 mg 400 mL/hr Inactive Administered Medications - up to 3 most recent administrations Medication Order MAR Action Action Date Dose Rate Site iron sucrose 200 mg in NaCl 0.9% 100ml (VENOFER) 200 mg, INTRAVENOUS, at 400 mL/hr, Administer over 15 Minutes, ONCE, 1 dose, On Mon05/25/22 at 1530, Please conduct a 30 minute post dose observation. New Bag/Syringe/Bottle 05/25/2022 3:14 PM EST 200 mg 400 mL/hr Inactive Administered Medications - up to 3 most recent administrations Medication Order MAR Action Action Date Dose Rate Site iron sucrose 200 mg in NaCl 0.9% 100ml (VENOFER) 200 mg, INTRAVENOUS, at 400 mL/hr, Administer over 15 Minutes, ONCE, 1 dose, On Mon05/27/22 at 1500, Please conduct a 30 minute post dose observation. New Bag/Syringe/Bottle 05/27/2022 2:46 PM EST 200 mg 400 mL/hr Inactive Administered Medications - up to 3 most recent administrations Medication Order MAR Action Action Date Dose Rate Site iron sucrose 200 mg in NaCl 0.9% 100ml (VENOFER) 200 mg, INTRAVENOUS, at 400 mL/hr, Administer over 15 Minutes, ONCE, 1 dose, On Mon05/30/22 at 1600, Please conduct a 30 minute post dose observation. New Bag/Syringe/Bottle 05/30/2022 3:50 PM EST 200 mg 400 mL/hr Inactive Administered Medications - up to 3 most recent administrations Medication Order MAR Action Action Date Dose Rate Site iron sucrose 200 mg in NaCl 0.9% 100ml (VENOFER) 200 mg, INTRAVENOUS, at 400 mL/hr, Administer over 15 Minutes, ONCE, 1 dose, On Mon06/01/22 at 1530, Please conduct a 30 minute post dose observation. New Bag/Syringe/Bottle 06/01/2022 3:24 PM EST 200 mg 400 mL/hr Inactive Administered Medications - up to 3 most recent administrations Medication Order MAR Action Action Date Dose Rate Site iron sucrose 200 mg in NaCl 0.9% 100ml (VENOFER) 200 mg, INTRAVENOUS, at 400 mL/hr, Administer over 15 Minutes, ONCE, 1 dose, On Mon12/21/22 at 1000, Please conduct a 30 minute post dose observation. New Bag/Syringe/Bottle 12/21/2022 9:44 AM EDT 200 mg 400 mL/hr Inactive Administered Medications - up to 3 most recent administrations Medication Order MAR Action Action Date Dose Rate Site iron sucrose 200 mg in NaCl 0.9% 100ml (VENOFER) 200 mg, INTRAVENOUS, at 400 mL/hr, Administer over 15 Minutes, ONCE, 1 dose, On Mon12/23/22 at 1000, Please conduct a 30 minute post dose observation. New Bag/Syringe/Bottle 12/23/2022 10:10 AM EDT 200 mg 400 mL/hr Inactive Administered Medications - up to 3 most recent administrations Medication Order MAR Action Action Date Dose Rate Site iron sucrose 200 mg in NaCl 0.9% 100ml (VENOFER) 200 mg, INTRAVENOUS, at 400 mL/hr, Administer over 15 Minutes, ONCE, 1 dose, On Mon12/26/22 at 1000, Please conduct a 30 minute post dose observation. New Bag/Syringe/Bottle 12/26/2022 10:06 AM EDT 200 mg 400 mL/hr Inactive Administered Medications - up to 3 most recent administrations Medication Order MAR Action Action Date Dose Rate Site iron sucrose 200 mg in NaCl 0.9% 100ml (VENOFER) 200 mg, INTRAVENOUS, at 400 mL/hr, Administer over 15 Minutes, ONCE, 1 dose, On Mon12/28/22 at 1200, Please conduct a 30 minute post dose observation. New Bag/Syringe/Bottle 12/28/2022 11:55 AM EDT 200 mg 400 mL/hr Inactive Administered Medications - up to 3 most recent administrations Medication Order MAR Action Action Date Dose Rate Site iron sucrose 200 mg in NaCl 0.9% 100ml (VENOFER) 200 mg, INTRAVENOUS, at 400 mL/hr, Administer over 15 Minutes, ONCE, 1 dose, On Mon01/02/23 at 0800, Please conduct a 30 minute post dose observation. New Bag/Syringe/Bottle 01/02/2023 9:55 AM EDT 200 mg 400 mL/hr Additional Source Comments (unrecognized sect ion and content) No Status Records FoundNo Status Records FoundNo Status Records FoundNo Status Records FoundNo Status Records FoundNo Status Records Found INFORMATION SOURCE (unrecogn ized section and content) DATE CREATED AUTHOR AUTHOR'S ORGANIZ ATION 10/10/2017 [facility] DATE CREATED AUTHOR AUTHOR'S ORGANIZ ATION 10/11/2017 [facility] DATE CREATED AUTHOR AUTHOR'S ORGANIZ ATION 04/27/2022 [facility] DATE CREATED AUTHOR AUTHOR'S ORGANIZ ATION 05/13/2022 [facility] DATE CREATED AUTHOR AUTHOR'S ORGANIZ ATION 03/20/2023 [facility] Source Comments (unrecognize d section and content) In the event this informatio n is protected by the Federal Confidentiality of Alcohol and Drug Abuse Patient Records regulations: The Federal rules restrict any use of the information to criminally investigate or prosecute any alcohol or drug abuse patient.[facility] the event this information is protected by the Federal Confidentiality of Alcohol and Drug Abuse Patient Records regulations: The Federal rules restrict any use of the information to criminally investigate or prosecute any alcohol or drug abuse patient.[facility] the event this information is protected by the Federal Confidentiality of Alcohol and Drug Abuse Patient Records regulations: The Federal rules restrict any use of the information to criminally investigate or prosecute any alcohol or drug abuse patient.[facility] the event this information is protected by the Federal Confidentiality of Alcohol and Drug Abuse Patient Records regulations: The Federal rules restrict any use of the information to criminally investigate or prosecute any alcohol or drug abuse patient.[facility] the event this information is protected by the Federal Confidentiality of Alcohol and Drug Abuse Patient Records regulations: The Federal rules restrict any use of the information to criminally investigate or prosecute any alcohol or drug abuse patient.[facility] the event this information is protected by the Federal Confidentiality of Alcohol and Drug Abuse Patient Records regulations: The Federal rules restrict any use of the information to criminally investigate or prosecute any alcohol or drug abuse patient.[facility] the event this information is protected by the Federal Confidentiality of Alcohol and Drug Abuse Patient Records regulations: The Federal rules restrict any use of the information to criminally investigate or prosecute any alcohol or drug abuse patient.[facility] the event this information is protected by the Federal Confidentiality of Alcohol and Drug Abuse Patient Records regulations: The Federal rules restrict any use of the information to criminally investigate or prosecute any alcohol or drug abuse patient.[facility] the event this information is protected by the Federal Confidentiality of Alcohol and Drug Abuse Patient Records regulations: The Federal rules restrict any use of the information to criminally investigate or prosecute any alcohol or drug abuse patient.[facility] the event this information is protected by the Federal Confidentiality of Alcohol and Drug Abuse Patient Records regulations: The Federal rules restrict any use of the information to criminally investigate or prosecute any alcohol or drug abuse patient.[facility] the event this information is protected by the Federal Confidentiality of Alcohol and Drug Abuse Patient Records regulations: The Federal rules restrict any use of the information to criminally investigate or prosecute any alcohol or drug abuse patient.[facility]In the event this information is protected by the Federal Confidentiality of Alcohol and Drug Abuse Patient Records regulations: The Federal rules restrict any use of the information to criminally investigate or prosecute any alcohol or drug abuse patient.[facility] the event this information is protected by the Federal Confidentiality of Alcohol and Drug Abuse Patient Records regulations: The Federal rules restrict any use of the information to criminally investigate or prosecute any alcohol or drug abuse patient.[facility] the event this information is protected by the Federal Confidentiality of Alcohol and Drug Abuse Patient Records regulations: The Federal rules restrict any use of the information to criminally investigate or prosecute any alcohol or drug abuse patient.[facility] the event this information is protected by the Federal Confidentiality of Alcohol and Drug Abuse Patient Records regulations: The Federal rules restrict any use of the information to criminally investigate or prosecute any alcohol or drug abuse patient.[facility] the event this information is protected by the Federal Confidentiality of Alcohol and Drug Abuse Patient Records regulations: The Federal rules restrict any use of the information to criminally investigate or prosecute any alcohol or drug abuse patient.[facility] the event this information is protected by the Federal Confidentiality of Alcohol and Drug Abuse Patient Records regulations: The Federal rules restrict any use of the information to criminally investigate or prosecute any alcohol or drug abuse patient.[facility] the event this information is protected by the Federal Confidentiality of Alcohol and Drug Abuse Patient Records regulations: The Federal rules restrict any use of the information to criminally investigate or prosecute any alcohol or drug abuse patient.[facility] the event this information is protected by the Federal Confidentiality of Alcohol and Drug Abuse Patient Records regulations: The Federal rules restrict any use of the information to criminally investigate or prosecute any alcohol or drug abuse patient.[facility]In the event this information is protected by the Federal Confidentiality of Alcohol and Drug Abuse Patient Records regulations: The Federal rules restrict any use of the information to criminally investigate or prosecute any alcohol or drug abuse patient.[facility]In the event this information is protected by the Federal Confidentiality of Alcohol and Drug Abuse Patient Records regulations: The Federal rules restrict any use of the information to criminally investigate or prosecute any alcohol or drug abuse patient.[facility]In the event this information is protected by the Federal Confidentiality of Alcohol and Drug Abuse Patient Records regulations: The Federal rules restrict any use of the information to criminally investigate or prosecute any alcohol or drug abuse patient.[facility]In the event this information is protected by the Federal Confidentiality of Alcohol and Drug Abuse Patient Records regulations: The Federal rules restrict any use of the information to criminally investigate or prosecute any alcohol or drug abuse patient.[facility] the event this information is protected by the Federal Confidentiality of Alcohol and Drug Abuse Patient Records regulations: The Federal rules restrict any use of the information to criminally investigate or prosecute any alcohol or drug abuse patient.[facility]In the event this information is protected by the Federal Confidentiality of Alcohol and Drug Abuse Patient Records regulations: The Federal rules restrict any use of the information to criminally investigate or prosecute any alcohol or drug abuse patient.[facility]In the event this information is protected by the Federal Confidentiality of Alcohol and Drug Abuse Patient Records regulations: The Federal rules restrict any use of the information to criminally investigate or prosecute any alcohol or drug abuse patient.[facility]In the event this information is protected by the Federal Confidentiality of Alcohol and Drug Abuse Patient Records regulations: The Federal rules restrict any use of the information to criminally investigate or prosecute any alcohol or drug abuse patient.[facility]In the event this information is protected by the Federal Confidentiality of Alcohol and Drug Abuse Patient Records regulations: The Federal rules restrict any use of the information to criminally investigate or prosecute any alcohol or drug abuse patient.[facility]In the event this information is protected by the Federal Confidentiality of Alcohol and Drug Abuse Patient Records regulations: The Federal rules restrict any use of the information to criminally investigate or prosecute any alcohol or drug abuse patient.[facility]In the event this information is protected by the Federal Confidentiality of Alcohol and Drug Abuse Patient Records regulations: The Federal rules restrict any use of the information to criminally investigate or prosecute any alcohol or drug abuse patient.[facility]In the event this information is protected by the Federal Confidentiality of Alcohol and Drug Abuse Patient Records regulations: The Federal rules restrict any use of the information to criminally investigate or prosecute any alcohol or drug abuse patient.[facility]In the event this information is protected by the Federal Confidentiality of Alcohol and Drug Abuse Patient Records regulations: The Federal rules restrict any use of the information to criminally investigate or prosecute any alcohol or drug abuse patient.[facility]In the event this information is protected by the Federal Confidentiality of Alcohol and Drug Abuse Patient Records regulations: The Federal rules restrict any use of the information to criminally investigate or prosecute any alcohol or drug abuse patient.[facility]In the event this information is protected by the Federal Confidentiality of Alcohol and Drug Abuse Patient Records regulations: The Federal rules restrict any use of the information to criminally investigate or prosecute any alcohol or drug abuse patient.[facility]In the event this information is protected by the Federal Confidentiality of Alcohol and Drug Abuse Patient Records regulations: The Federal rules restrict any use of the information to criminally investigate or prosecute any alcohol or drug abuse patient.[facility]In the event this information is protected by the Federal Confidentiality of Alcohol and Drug Abuse Patient Records regulations: The Federal rules restrict any use of the information to criminally investigate or prosecute any alcohol or drug abuse patient.[facility]In the event this information is protected by the Federal Confidentiality of Alcohol and Drug Abuse Patient Records regulations: The Federal rules restrict any use of the information to criminally investigate or prosecute any alcohol or drug abuse patient.[facility]In the event this information is protected by the Federal Confidentiality of Alcohol and Drug Abuse Patient Records regulations: The Federal rules restrict any use of the information to criminally investigate or prosecute any alcohol or drug abuse patient.[facility]In the event this information is protected by the Federal Confidentiality of Alcohol and Drug Abuse Patient Records regulations: The Federal rules restrict any use of the information to criminally investigate or prosecute any alcohol or drug abuse patient.[facility]In the event this information is protected by the Federal Confidentiality of Alcohol and Drug Abuse Patient Records regulations: The Federal rules restrict any use of the information to criminally investigate or prosecute any alcohol or drug abuse patient.[facility]In the event this information is protected by the Federal Confidentiality of Alcohol and Drug Abuse Patient Records regulations: The Federal rules restrict any use of the information to criminally investigate or prosecute any alcohol or drug abuse patient.[facility]In the event this information is protected by the Federal Confidentiality of Alcohol and Drug Abuse Patient Records regulations: The Federal rules restrict any use of the information to criminally investigate or prosecute any alcohol or drug abuse patient.[facility]woodsIn the event this information is protected by the Federal Confidentiality of Alcohol and Drug Abuse Patient Records regulations: The Federal rules restrict any use of the information to criminally investigate or prosecute any alcohol or drug abuse patient.[facility]woodsIn the event this information is protected by the Federal Confidentiality of Alcohol and Drug Abuse Patient Records regulations: The Federal rules restrict any use of the information to criminally investigate or prosecute any alcohol or drug abuse patient.[facility]woodsIn the event this information is protected by the Federal Confidentiality of Alcohol and Drug Abuse Patient Records regulations: The Federal rules restrict any use of the information to criminally investigate or prosecute any alcohol or drug abuse patient.[facility]woodsIn the event this information is protected by the Federal Confidentiality of Alcohol and Drug Abuse Patient Records regulations: The Federal rules restrict any use of the information to criminally investigate or prosecute any alcohol or drug abuse patient.[facility]woodsIn the event this information is protected by the Federal Confidentiality of Alcohol and Drug Abuse Patient Records regulations: The Federal rules restrict any use of the information to criminally investigate or prosecute any alcohol or drug abuse patient.[facility]woodsIn the event this information is protected by the Federal Confidentiality of Alcohol and Drug Abuse Patient Records regulations: The Federal rules restrict any use of the information to criminally investigate or prosecute any alcohol or drug abuse patient.[facility]woodsIn the event this information is protected by the Federal Confidentiality of Alcohol and Drug Abuse Patient Records regulations: The Federal rules restrict any use of the information to criminally investigate or prosecute any alcohol or drug abuse patient.[facility]woodsIn the event this information is protected by the Federal Confidentiality of Alcohol and Drug Abuse Patient Records regulations: The Federal rules restrict any use of the information to criminally investigate or prosecute any alcohol or drug abuse patient.[facility]woodsIn the event this information is protected by the Federal Confidentiality of Alcohol and Drug Abuse Patient Records regulations: The Federal rules restrict any use of the information to criminally investigate or prosecute any alcohol or drug abuse patient.[facility]woodsIn the event this information is protected by the Federal Confidentiality of Alcohol and Drug Abuse Patient Records regulations: The Federal rules restrict any use of the information to criminally investigate or prosecute any alcohol or drug abuse patient.[facility]woodsIn the event this information is protected by the Federal Confidentiality of Alcohol and Drug Abuse Patient Records regulations: The Federal rules restrict any use of the information to criminally investigate or prosecute any alcohol or drug abuse patient.[facility]woodsIn the event this information is protected by the Federal Confidentiality of Alcohol and Drug Abuse Patient Records regulations: The Federal rules restrict any use of the information to criminally investigate or prosecute any alcohol or drug abuse patient.[facility]woodsIn the event this information is protected by the Federal Confidentiality of Alcohol and Drug Abuse Patient Records regulations: The Federal rules restrict any use of the information to criminally investigate or prosecute any alcohol or drug abuse patient.[facility]woodsIn the event this information is protected by the Federal Confidentiality of Alcohol and Drug Abuse Patient Records regulations: The Federal rules restrict any use of the information to criminally investigate or prosecute any alcohol or drug abuse patient.[facility]woodsIn the event this information is protected by the Federal Confidentiality of Alcohol and Drug Abuse Patient Records regulations: The Federal rules restrict any use of the information to criminally investigate or prosecute any alcohol or drug abuse patient.[facility]woodsIn the event this information is protected by the Federal Confidentiality of Alcohol and Drug Abuse Patient Records regulations: The Federal rules restrict any use of the information to criminally investigate or prosecute any alcohol or drug abuse patient.[facility]woodsIn the event this information is protected by the Federal Confidentiality of Alcohol and Drug Abuse Patient Records regulations: The Federal rules restrict any use of the information to criminally investigate or prosecute any alcohol or drug abuse patient.[facility]woodsIn the event this information is protected by the Federal Confidentiality of Alcohol and Drug Abuse Patient Records regulations: The Federal rules restrict any use of the information to criminally investigate or prosecute any alcohol or drug abuse patient.[facility]woodsIn the event this information is protected by the Federal Confidentiality of Alcohol and Drug Abuse Patient Records regulations: The Federal rules restrict any use of the information to criminally investigate or prosecute any alcohol or drug abuse patient.[facility]woodsIn the event this information is protected by the Federal Confidentiality of Alcohol and Drug Abuse Patient Records regulations: The Federal rules restrict any use of the information to criminally investigate or prosecute any alcohol or drug abuse patient.[facility]woodsIn the event this information is protected by the Federal Confidentiality of Alcohol and Drug Abuse Patient Records regulations: The Federal rules restrict any use of the information to criminally investigate or prosecute any alcohol or drug abuse patient.[facility]woodsIn the event this information is protected by the Federal Confidentiality of Alcohol and Drug Abuse Patient Records regulations: The Federal rules restrict any use of the information to criminally investigate or prosecute any alcohol or drug abuse patient.[facility]woodsIn the event this information is protected by the Federal Confidentiality of Alcohol and Drug Abuse Patient Records regulations: The Federal rules restrict any use of the information to criminally investigate or prosecute any alcohol or drug abuse patient.[facility] the event this information is protected by the Federal Confidentiality of Alcohol and Drug Abuse Patient Records regulations: The Federal rules restrict any use of the information to criminally investigate or prosecute any alcohol or drug abuse patient.[facility]woodsIn the event this information is protected by the Federal Confidentiality of Alcohol and Drug Abuse Patient Records regulations: The Federal rules restrict any use of the information to criminally investigate or prosecute any alcohol or drug abuse patient.[facility]woodsIn the event this information is protected by the Federal Confidentiality of Alcohol and Drug Abuse Patient Records regulations: The Federal rules restrict any use of the information to criminally investigate or prosecute any alcohol or drug abuse patient.[facility]woodsIn the event this information is protected by the Federal Confidentiality of Alcohol and Drug Abuse Patient Records regulations: The Federal rules restrict any use of the information to criminally investigate or prosecute any alcohol or drug abuse patient.[facility]woodsIn the event this information is protected by the Federal Confidentiality of Alcohol and Drug Abuse Patient Records regulations: The Federal rules restrict any use of the information to criminally investigate or prosecute any alcohol or drug abuse patient.[facility]woodsIn the event this information is protected by the Federal Confidentiality of Alcohol and Drug Abuse Patient Records regulations: The Federal rules restrict any use of the information to criminally investigate or prosecute any alcohol or drug abuse patient.[facility]woodsIn the event this information is protected by the Federal Confidentiality of Alcohol and Drug Abuse Patient Records regulations: The Federal rules restrict any use of the information to criminally investigate or prosecute any alcohol or drug abuse patient.[facility]woodsIn the event this information is protected by the Federal Confidentiality of Alcohol and Drug Abuse Patient Records regulations: The Federal rules restrict any use of the information to criminally investigate or prosecute any alcohol or drug abuse patient.[facility]woodsIn the event this information is protected by the Federal Confidentiality of Alcohol and Drug Abuse Patient Records regulations: The Federal rules restrict any use of the information to criminally investigate or prosecute any alcohol or drug abuse patient.[facility]woodsIn the event this information is protected by the Federal Confidentiality of Alcohol and Drug Abuse Patient Records regulations: The Federal rules restrict any use of the information to criminally investigate or prosecute any alcohol or drug abuse patient.[facility]woodsIn the event this information is protected by the Federal Confidentiality of Alcohol and Drug Abuse Patient Records regulations: The Federal rules restrict any use of the information to criminally investigate or prosecute any alcohol or drug abuse patient.[facility]woodsIn the event this information is protected by the Federal Confidentiality of Alcohol and Drug Abuse Patient Records regulations: The Federal rules restrict any use of the information to criminally investigate or prosecute any alcohol or drug abuse patient.[facility]woodsIn the event this information is protected by the Federal Confidentiality of Alcohol and Drug Abuse Patient Records regulations: The Federal rules restrict any use of the information to criminally investigate or prosecute any alcohol or drug abuse patient.[facility]woodsIn the event this information is protected by the Federal Confidentiality of Alcohol and Drug Abuse Patient Records regulations: The Federal rules restrict any use of the information to criminally investigate or prosecute any alcohol or drug abuse patient.[facility]woodsIn the event this information is protected by the Federal Confidentiality of Alcohol and Drug Abuse Patient Records regulations: The Federal rules restrict any use of the information to criminally investigate or prosecute any alcohol or drug abuse patient.[facility]woodsIn the event this information is protected by the Federal Confidentiality of Alcohol and Drug Abuse Patient Records regulations: The Federal rules restrict any use of the information to criminally investigate or prosecute any alcohol or drug abuse patient.[facility]woodsIn the event this information is protected by the Federal Confidentiality of Alcohol and Drug Abuse Patient Records regulations: The Federal rules restrict any use of the information to criminally investigate or prosecute any alcohol or drug abuse patient.[facility]woodsIn the event this information is protected by the Federal Confidentiality of Alcohol and Drug Abuse Patient Records regulations: The Federal rules restrict any use of the information to criminally investigate or prosecute any alcohol or drug abuse patient.[facility]woodsIn the event this information is protected by the Federal Confidentiality of Alcohol and Drug Abuse Patient Records regulations: The Federal rules restrict any use of the information to criminally investigate or prosecute any alcohol or drug abuse patient.[facility]woodsIn the event this information is protected by the Federal Confidentiality of Alcohol and Drug Abuse Patient Records regulations: The Federal rules restrict any use of the information to criminally investigate or prosecute any alcohol or drug abuse patient.[facility]woodsIn the event this information is protected by the Federal Confidentiality of Alcohol and Drug Abuse Patient Records regulations: The Federal rules restrict any use of the information to criminally investigate or prosecute any alcohol or drug abuse patient.[facility]woodsIn the event this information is protected by the Federal Confidentiality of Alcohol and Drug Abuse Patient Records regulations: The Federal rules restrict any use of the information to criminally investigate or prosecute any alcohol or drug abuse patient.[facility]woodsIn the event this information is protected by the Federal Confidentiality of Alcohol and Drug Abuse Patient Records regulations: The Federal rules restrict any use of the information to criminally investigate or prosecute any alcohol or drug abuse patient.[facility]woodsIn the event this information is protected by the Federal Confidentiality of Alcohol and Drug Abuse Patient Records regulations: The Federal rules restrict any use of the information to criminally investigate or prosecute any alcohol or drug abuse patient.[facility]woodsIn the event this information is protected by the Federal Confidentiality of Alcohol and Drug Abuse Patient Records regulations: The Federal rules restrict any use of the information to criminally investigate or prosecute any alcohol or drug abuse patient.[facility]woodsIn the event this information is protected by the Federal Confidentiality of Alcohol and Drug Abuse Patient Records regulations: The Federal rules restrict any use of the information to criminally investigate or prosecute any alcohol or drug abuse patient.[facility]woodsIn the event this information is protected by the Federal Confidentiality of Alcohol and Drug Abuse Patient Records regulations: The Federal rules restrict any use of the information to criminally investigate or prosecute any alcohol or drug abuse patient.[facility]woodsIn the event this information is protected by the Federal Confidentiality of Alcohol and Drug Abuse Patient Records regulations: The Federal rules restrict any use of the information to criminally investigate or prosecute any alcohol or drug abuse patient.[facility]woodsIn the event this information is protected by the Federal Confidentiality of Alcohol and Drug Abuse Patient Records regulations: The Federal rules restrict any use of the information to criminally investigate or prosecute any alcohol or drug abuse patient.[facility]woodsIn the event this information is protected by the Federal Confidentiality of Alcohol and Drug Abuse Patient Records regulations: The Federal rules restrict any use of the information to criminally investigate or prosecute any alcohol or drug abuse patient.[facility]woodsIn the event this information is protected by the Federal Confidentiality of Alcohol and Drug Abuse Patient Records regulations: The Federal rules restrict any use of the information to criminally investigate or prosecute any alcohol or drug abuse patient.[facility] Reason for Visit (unrecogniz ed section and content) Reason Comments Orders Reason Onset Date Comments Refill Request 10/08/2021 Reason Comments Patient Question Reason Comments F/U 6 months Reason Comments Results Reason Comments Home Care Confirmation Call Reason Comments Patient Update Reason Comments Home Care PDGM Reason Comments Home Care Reason Comments Home Health calling for verbal order Reason Comments Home Care Fall without injury Reason Comments Consult Orders Reason Comments New Patient Reason Comments OT EVAL Specialty Diagnoses / Procedures Referred By Contac t Referred To Contact [facility] Diagnoses Peripheral polyneuropathy Abnormality of gait Procedures 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 OCCUPATIONAL THERAPY EVAL HIGH COMPLEX 60 MINS Ricky Bradley MD [address] [place] [address] [facility] [place] [address] [place] [address] Referral ID Status Reason Start Date Expiration Date Visits Requested Visits Authorized [id number] Authorized PCP Requested Referral Auto-Generate d Referral 2 01/31/2023 99 99 Reason Comments Forms Reason Comments New Patient Evaluation Reason Comments Cirrhosis Specialty Diagnoses / Procedures Referred By Contac t Referred To Contact Diagnoses Cirrhosis of liver without ascites, unspecified hepatic cirrhosis type (HCC) Splenomegaly Procedures CONSULT TO HEPATOLOGY OFFICE/OUTPATIENT [facility] 60-74 MINUTES Yuniel Dahl DO [address] [place] [address] Referral ID Status Reason Start Date Expiration Date V isits Requested Visits Authorized [id number] Closed PCP Requested Referral 04/22/2022 04/22/2023 1 1 Reason Comments Rash Reason Comments Non-Chemotherapy Treatment Specialty Diagnoses / Procedures Referred By Contac t Referred To Contact Diagnoses Iron deficiency anemia due to chronic blood loss Iron malabsorption Yuniel Dahl, DO [address] [place] [address] Alex [facility] [address] [place] [address] Referral ID Status Reason Start Date Expiration Date V isits Requested Visits Authorized [id number] Authorized 04/22/2022 07/21/2022 99 99 Reason Comments Consult colonoscopy Reason Comments Appointment Reason Comments Patient Update Patient Question Reason Comments Follow Up Reason Onset Date Comments Refill Request 06/13/2022 Reason Comments sores on lower legs X 2 weeks Reason Comments Consult Reason Comments Express Care follow-up Reason Comments Radiology Pre Procedure Instructions Reason Comments Radiology MRI liver, under general anesthesia Specialty Diagnoses / Procedures Referred By Contac t Referred To Contact [facility] Diagnoses Cirrhosis of liver without ascites, unspecified hepatic cirrhosis type (HCC) Liver mass Splenomegaly Procedures MRI LIVER WO/W IVCON MRI ABDOMEN W/O & W/CONTRAST MATERIAL Kai Alvarado PA-C [address] [place] [id number] [facility] Referral ID Status Reason Start Date Expiration Date V isits Requested Visits Authorized [id number] Closed Auto-Generate d Referral 05/13/2022 06/12/2023 1 1 Reason Comments Radiology MRI Specialty Diagnoses / Procedures Referred By Contac t Referred To Contact [facility] Diagnoses Cirrhosis of liver without ascites, unspecified hepatic cirrhosis type (HCC) Liver mass Splenomegaly Procedures MRI LIVER WO/W IVCON MRI ABDOMEN W/O & W/CONTRAST MATERIAL Kai Alvarado PA-Minnie [address] [place] [address] Mr Imaging Reason Comments Established Patient 4cm hcc Reason Onset Date Comments SPP General - Treatment Referral 08/10/2022 [employer] Insurance Authorization 08/10/2022 LORRAINE chacon Reason Onset Date Comments Simulation Request Form 08/15/2022 Reason Comments Patient Education Reason Onset Date Comments Refill Request 08/22/2022 Reason Onset Date Comments Refill Request 09/19/2022 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 Reason Comments [facility] Order Request Reason Comments [facility] Reason Comments Physical Therapy Plan of Care Reason Comments Established Patient Reason Onset Date Comments Refill Request 12/08/2022 Referral ID Status Reason Start Date Expiration Date V isits Requested Visits Authorized [id number] Authorized 12/09/2022 03/09/2023 99 99 Reason Comments Established Patient 3 month follow up Reason Comments Radiology US Specialty Diagnoses / Procedures Referred By Contac t Referred To Contact US IMAGING Diagnoses Monoclonal gammopathy Macrocytic anemia Thrombocytopenia (HCC) Procedures US ABD RT UPPER QUADRANT US ABDOMINAL REAL TIME W/IMAGE LIMITED Yuniel Dahl, DO [address] [place] [address] [place] [address] Referral ID Status Reason Start Date Expiration Date V isits Requested Visits Authorized [id number] Closed Auto-Generate d Referral 03/22/2022 04/21/2023 1 1 Specialty Diagnoses / Procedures Referred By Contac t Referred To Contact MR IMAGING Diagnoses Liver disease Procedures MRI LIVER WO/W IVCON MRI ABDOMEN W/O & W/[place] [address] [place] [address] [place] [id number] Referral ID Status Reason Start Date Expiration Date V isits Requested Visits Authorized [id number] Closed Auto-Generate d Referral 12/16/2022 10/03/2023 1 1 Reason Comments Appointment Confirmation Care Teams (unrecognized sec tion and content) Fountain Operator Relationship Specialty Start Date End Date Ricky Bradley MD [address] [place], [place] [id number] PCP - General 02/05/02 Fountain Operator Relationship Specialty Start Date End Date Ricky Bradley MD [address] [place], [place] [id number] PCP - General 02/05/02 Fountain Operator Relationship Specialty Start Date End Date Ricky Bradley MD [address] [place], [place] [phone] PCP - General 02/05/02 Fountain Operator Relationship Specialty Start Date End Date Ricky Bradley MD [address] [place] [address] PCP - General 02/05/02 Fountain Operator Relationship Specialty Start Date End Date Ricky Bradley MD [address] [place] [address] PCP - General 02/05/02 Ricky Bradley MD [address] [place] [address] Referring Internal Medicine 12/07/21 Ricky Bradley MD [address] [place] [address] Home Care Physician Internal Medicine 12/07/21 Fountain Operator Relationship Specialty Start Date End Date Ricky Bradley MD [address] [place] [address] PCP - General 02/05/02 Ricky Bradley MD [address] [place] [address] Referring Internal Medicine 12/07/21 Ricky Bradley MD [address] [place] [address] Home Care Physician Internal Medicine 12/07/21 Fountain Operator Relationship Specialty Start Date End Date Ricky Bradley MD [address] [place] [address] PCP - General 02/05/02 Ricky Bradley MD [address] [place] [address] Referring Internal Medicine 12/07/21 Ricky Bradley MD [address] [place] [address] Home Care Physician Internal Medicine 12/07/21 Fountain Operator Relationship Specialty Start Date End Date Ricky Bradley MD [address] [place] [address] PCP - General 02/05/02 Ricky Bradley MD [address] [place] [address] Referring Internal Medicine 12/07/21 Ricky Bradley MD [address] [place] [address] Home Care Physician Internal Medicine 12/07/21 Leda Christensen, PT [address] [place] [address] Supervisor Phosphoric Acid Post Acute Care 12/14/21 Fountain Operator Relationship Specialty Start Date End Date Ricky Bradley MD [address] [place] [address] PCP - General 02/05/02 Ricky Bradley MD [address] [place] [address] Referring Internal Medicine 12/07/21 Ricky Bradley MD [address] [place] [address] Home Care Physician Internal Medicine 12/07/21 Leda Christensen, PT [address] [place] [address] Supervisor Phosphoric Acid Post Acute Care 12/14/21 Fountain Operator Relationship Specialty Start Date End Date Ricky Bradley MD [address] [place] [address] PCP - General 02/05/02 Rikcy Bradley MD [address] [place] [address] Referring Internal Medicine 12/07/21 Ricky Bradley MD [address] [place] [address] Home Care Physician Internal Medicine 12/07/21 Leda Christensen, PT [address] [place] [address] Supervisor Phosphoric Acid Post Acute Care 12/14/21 Fountain Operator Relationship Specialty Start Date End Date Ricky Bradley MD [address] [place] [address] PCP - General 02/05/02 Ricky Bradley MD [address] [place] [address] Referring Internal Medicine 12/07/21 Ricky Bradley MD [address] [place] [address] Home Care Physician Internal Medicine 12/07/21 Leda Christensen, PT [address] [place] [address] Supervisor Phosphoric Acid Post Acute Care 12/14/21 Fountain Operator Relationship Specialty Start Date End Date Ricky Bradley MD [address] [place] [address] PCP - General 02/05/02 Ricky Bradley MD [address] [place] [address] Referring Internal Medicine 12/07/21 Ricky Bradley MD [address] [place] [address] Home Care Physician Internal Medicine 12/07/21 Leda Christensen, PT [address] [place] [address] Supervisor Phosphoric Acid Post Acute Care 12/14/21 Fountain Operator Relationship Specialty Start Date End Date Ricky Bradley MD [address] [place] [address] PCP - General 02/05/02 Ricky Bradley MD [address] [place] [address] Referring Internal Medicine 12/07/21 Ricky Bradley MD [address] [place] [address] Home Care Physician Internal Medicine 12/07/21 Leda Christensen, PT [address] [place] [address] Supervisor Phosphoric Acid Post Acute Care 12/14/21 Fountain Operator Relationship Specialty Start Date End Date Ricky Bradley MD [address] [place] [address] PCP - General 02/05/02 Ricky Bradley MD [address] [place] [address] Referring Internal Medicine 12/07/21 Ricky Bradley MD [address] [place] [address] Home Care Provider Internal Medicine 12/07/21 Leda Christensen, PT [address] [place] [address] Supervisor Phosphoric Acid Post Acute Care 12/14/21 Fountain Operator Relationship Specialty Start Date End Date Ricky Bradley MD [address] [place] [address] PCP - General 02/05/02 Ricky Bradley MD [address] [place] [address] Referring Internal Medicine 12/07/21 Ricky Bradley MD [address] [place] [address] Home Care Provider Internal Medicine 12/07/21 Leda Christensen, PT [address] [facility] [place] [address] Supervisor Phosphoric Acid Post Acute Care 12/14/21 Fountain Operator Relationship Specialty Start Date End Date Ricky Bradley MD [address] [place] [address] PCP - General 02/05/02 Ricky Bradley MD [address] [place] [address] Referring Internal Medicine 12/07/21 Ricky Bradley MD [address] [place] [address] Home Care Provider Internal Medicine 12/07/21 Leda Christensen, PT [address] [place] [address] Supervisor Phosphoric Acid Post Acute Care 12/14/21 Fountain Operator Relationship Specialty Start Date End Date Ricky Bradley MD [address] [place] [address] PCP - General 02/05/02 Ricky Bradley MD [address] [place] [address] Referring Internal Medicine 12/07/21 Ricky Bradley MD [address] [place] [address] Home Care Provider Internal Medicine 12/07/21 Leda Christensen, PT [address] [place] [address] Supervisor Phosphoric Acid Post Acute Care 12/14/21 Fountain Operator Relationship Specialty Start Date End Date Ricky Bradley MD [address] [place] [address] PCP - General 02/05/02 Ricky Bradley MD [address] [place] [address] Referring Internal Medicine 12/07/21 Ricky Bradley MD [address] [place] [address] Home Care Provider Internal Medicine 12/07/21 Leda Christensen, PT [address] [place] [address] Supervisor Phosphoric Acid Post Acute Care 12/14/21 Fountain Operator Relationship Specialty Start Date End Date Ricky Bradley MD [address] [place] [address] PCP - General 02/05/02 Ricky Bradley MD [address] [place] [address] Referring Internal Medicine 12/07/21 Ricky Bradley MD [address] [place] [address] Home Care Provider Internal Medicine 12/07/21 Leda Christensen, PT [address] [place] [address] Supervisor Phosphoric Acid Post Acute Care 12/14/21 Fountain Operator Relationship Specialty Start Date End Date Ricky Bradley MD [address] [place] [address] PCP - General 02/05/02 Ricky Bradley MD [address] [place] [address] Referring Internal Medicine 12/07/21 Ricky Bradley MD [address] [place] [address] Home Care Provider Internal Medicine 12/07/21 Leda Christensen, PT [address] [place] [address] Supervisor Phosphoric Acid Post Acute Care 12/14/21 Fountain Operator Relationship Specialty Start Date End Date Ricky Bradley MD [address] [place] [address] PCP - General 02/05/02 Ricky Bradley MD [address] [place] [address] Referring Internal Medicine 12/07/21 Ricky Bradley MD [address] [place] [address] Home Care Provider Internal Medicine 12/07/21 Leda Christensen, PT [address] [place] [address] Supervisor Phosphoric Acid Post Acute Care 12/14/21 Fountain Operator Relationship Specialty Start Date End Date Ricky Bradley MD [address] [place] [address] PCP - General 02/05/02 Ricky Bradley MD [address] [place] [address] Referring Internal Medicine 12/07/21 Ricky Bradley MD [address] [place] [address] Home Care Provider Internal Medicine 12/07/21 Leda Christensen, PT [address] [place] [address] Supervisor Phosphoric Acid Post Acute Care 12/14/21 Fountain Operator Relationship Specialty Start Date End Date Ricky Bradley MD [address] [place] [address] PCP - General 02/05/02 Ricky Bradley MD [address] [place] [address] Referring Internal Medicine 12/07/21 Ricky Bradley MD [address] [place] [address] Home Care Provider Internal Medicine 12/07/21 Leda Christensen, PT [address] [place] [address] Supervisor Phosphoric Acid Post Acute Care 12/14/21 Fountain Operator Relationship Specialty Start Date End Date Ricky Bradley MD [address] [place] [address] PCP - General 02/05/02 Ricky Bradley MD [address] [place] [address] Referring Internal Medicine 12/07/21 Ricky Bradley MD [address] [place] [address] Home Care Provider Internal Medicine 12/07/21 Leda Christensen, PT [address] [place] [address] Supervisor Phosphoric Acid Post Acute Care 12/14/21 Fountain Operator Relationship Specialty Start Date End Date Ricky Bradley MD [address] [place] [address] PCP - General 02/05/02 Ricky Bradley MD [address] [place] [address] Referring Internal Medicine 12/07/21 Ricky Bradley MD [address] [place] [address] Home Care Provider Internal Medicine 12/07/21 Leda Christensen, PT [address] [place] [address] Supervisor Phosphoric Acid Post Acute Care 12/14/21 Fountain Operator Relationship Specialty Start Date End Date Ricky Bradley MD [address] [place] [address] PCP - General 02/05/02 Ricky Bradley MD [address] [place] [address] Referring Internal Medicine 12/07/21 Ricky Bradley MD [address] [place] [address] Home Care Provider Internal Medicine 12/07/21 Leda Christensen, PT [address] [place] [address] Supervisor Phosphoric Acid Post Acute Care 12/14/21 Fountain Operator Relationship Specialty Start Date End Date Ricky Bradley MD [address] [place] [address] PCP - General 02/05/02 Ricky Bradley MD [address] [place] [address] Referring Internal Medicine 12/07/21 Ricky Bradley MD [address] [place] [address] Home Care Provider Internal Medicine 12/07/21 Leda Christensen, PT [address] [place] [address] Supervisor Phosphoric Acid Post Acute Care 12/14/21 Fountain Operator Relationship Specialty Start Date End Date Ricky Bradley MD [address] [place] [address] PCP - General 02/05/02 Ricky Bradley MD [address] [place] [address] Referring Internal Medicine 12/07/21 Ricky Bradley MD [address] [place] [address] Home Care Provider Internal Medicine 12/07/21 Leda Christensen, PT [address] [place] [address] Supervisor Phosphoric Acid Post Acute Care 12/14/21 Fountain Operator Relationship Specialty Start Date End Date Ricky Bradley MD [address] [place] [address] PCP - General 02/05/02 Ricky Bradley MD [address] [place] [address] Referring Internal Medicine 12/07/21 Ricky Bradley MD [address] [place] [address] Home Care Provider Internal Medicine 12/07/21 Leda Christensen, PT [address] [place] [address] Supervisor Phosphoric Acid Post Acute Care 12/14/21 Fountain Operator Relationship Specialty Start Date End Date Ricky Bradley MD [address] [place] [address] PCP - General 02/05/02 Ricky Bradley MD [address] [place] [address] Referring Internal Medicine 12/07/21 Ricky Bradley MD [address] [place] [address] Home Care Provider Internal Medicine 12/07/21 Leda Christensen, PT [address] [facility] [place] [address] Supervisor Phosphoric Acid Post Acute Care 12/14/21 Fountain Operator Relationship Specialty Start Date End Date Ricky Bradley MD [address] [place] [address] PCP - General 02/05/02 Ricky Bradley MD [address] [place] [address] Referring Internal Medicine 12/07/21 Ricky Bradley MD [address] [place] [address] Home Care Provider Internal Medicine 12/07/21 Leda Christensen, PT [address] [place] [address] Supervisor Phosphoric Acid Post Acute Care 12/14/21 Fountain Operator Relationship Specialty Start Date End Date Ricky Bradley MD [address] [place] [address] PCP - General 02/05/02 Ricky Bradley MD [address] [place] [address] Referring Internal Medicine 12/07/21 Ricky Bradley MD [address] [place] [address] Home Care Provider Internal Medicine 12/07/21 Leda Christensen, PT [address] [place] [address] Supervisor Phosphoric Acid Post Acute Care 12/14/21 Fountain Operator Relationship Specialty Start Date End Date Ricky Bradley MD [address] [place] [address] PCP - General 02/05/02 Ricky Bradley MD [address] [place] [address] Referring Internal Medicine 12/07/21 Ricky Bradley MD [address] [place] [address] Home Care Provider Internal Medicine 12/07/21 Leda Christensen, PT [address] [place] [address] Supervisor Phosphoric Acid Post Acute Care 12/14/21 Fountain Operator Relationship Specialty Start Date End Date Ricky Bradley MD [address] [place] [address] PCP - General 02/05/02 Ricky Bradley MD [address] [place] [address] Referring Internal Medicine 12/07/21 Ricky Bradley MD [address] [place] [address] Home Care Provider Internal Medicine 12/07/21 Leda Christensen, PT [address] [place] [address] Supervisor Phosphoric Acid Post Acute Care 12/14/21 Fountain Operator Relationship Specialty Start Date End Date Ricky Bradley MD [address] [place] [address] PCP - General 02/05/02 Ricky Bradley MD [address] [place] [address] Referring Internal Medicine 12/07/21 Ricky Bradley MD [address] [place] [address] Home Care Provider Internal Medicine 12/07/21 Leda Christensen, PT [address] [place] [address] Supervisor Phosphoric Acid Post Acute Care 12/14/21 Fountain Operator Relationship Specialty Start Date End Date Ricky Bradley MD [address] [place] [address] PCP - General 02/05/02 Ricky Bradley MD [address] [place] [address] Referring Internal Medicine 12/07/21 Ricky Bradley MD [address] [place] [address] Home Care Provider Internal Medicine 12/07/21 Leda Christensen, PT [address] [facility] [place] [address] Supervisor Phosphoric Acid Post Acute Care 12/14/21 Fountain Operator Relationship Specialty Start Date End Date Ricky Bradley MD [address] [place] [address] PCP - General 02/05/02 Ricky Bradley MD [address] [place] [address] Referring Internal Medicine 12/07/21 Ricky Bradley MD [address] [place] [address] Home Care Provider Internal Medicine 12/07/21 Leda Christensen, PT [address] [facility] [place] [address] Supervisor Phosphoric Acid Post Acute Care 12/14/21 Kai Alvarado PA-C [address] [place] [address] Gastroenterology 06/10/22 Ingrid Morales PA-C [address] [place] [address] General Surgery 06/10/22 Fountain Operator Relationship Specialty Start Date End Date Ricky Bradley MD [address] [place] [address] PCP - General 02/05/02 Ricky Bradley MD [address] [place] [address] Referring Internal Medicine 12/07/21 Ricky Bradley MD [address] [place] [address] Home Care Provider Internal Medicine 12/07/21 Leda Christensen, PT [address] [place] [address] Supervisor Phosphoric Acid Post Acute Care 12/14/21 Kai Alvarado PA-C [address] [place] [address] Gastroenterology 06/10/22 Ingrid Morales PA-C [address] [place] [address] General Surgery 06/10/22 Fountain Operator Relationship Specialty Start Date End Date Ricky Bradley MD [address] [place] [address] PCP - General 02/05/02 Ricky Bradley MD [address] [place] [address] Referring Internal Medicine 12/07/21 Ricky Bradley MD [address] [place] [address] Home Care Provider Internal Medicine 12/07/21 Leda Christensen, PT [address] [place] [address] Supervisor Phosphoric Acid Post Acute Care 12/14/21 Kai Alvarado PA-C [address] [place] [address] Gastroenterology 06/10/22 Ingrid Morales PA-C [address] [place] [address] General Surgery 06/10/22 Fountain Operator Relationship Specialty Start Date End Date Ricky Bradley MD [address] [place] [address] PCP - General 02/05/02 Ricky Bradley MD [address] [place] [address] Referring Internal Medicine 12/07/21 Ricky Bradley MD [address] [place] [address] Home Care Provider Internal Medicine 12/07/21 Leda Christensen, PT [address] [place] [address] Supervisor Phosphoric Acid Post Acute Care 12/14/21 Kai Alvarado PA-C [address] [place] [address] Gastroenterology 06/10/22 Ingrid Morales PA-C [address] [place] [address] General Surgery 06/10/22 Fountain Operator Relationship Specialty Start Date End Date Ricky Bradley MD [address] [place] [address] PCP - General 02/05/02 Ricky Bradley MD [address] [place] [address] Referring Internal Medicine 12/07/21 Ricky Bradley MD [address] [place] [address] Home Care Provider Internal Medicine 12/07/21 Leda Christensen, PT [address] [place] [address] Supervisor Phosphoric Acid Post Acute Care 12/14/21 Kai Alvarado PA-C [address] [place] [address] Gastroenterology 06/10/22 Ingrid Morales PA-C [address] [place] [address] General Surgery 06/10/22 Fountain Operator Relationship Specialty Start Date End Date Ricky Bradley MD [address] [place] [address] PCP - General 02/05/02 Ricky Bradley MD [address] [place] [address] Referring Internal Medicine 12/07/21 Ricky Bradley MD [address] [place] [address] Home Care Provider Internal Medicine 12/07/21 Leda Christensen, PT [address] [place] [address] Supervisor Phosphoric Acid Post Acute Care 12/14/21 Kai Alvarado PA-C [address] [place] [address] Gastroenterology 06/10/22 Ingrid Morales PA-C [address] [place] [address] General Surgery 06/10/22 Fountain Operator Relationship Specialty Start Date End Date Ricky Bradley MD [address] [place] [address] PCP - General 02/05/02 Ricky Bradley MD [address] [place] [address] Referring Internal Medicine 12/07/21 Ricky Bradley MD [address] [place] [address] Home Care Provider Internal Medicine 12/07/21 Leda Christensen, PT [address] [place] [address] Supervisor Phosphoric Acid Post Acute Care 12/14/21 Kai Alvarado PA-C [address] [place] [address] Gastroenterology 06/10/22 Ingrid Morales PA-C [address] [facility] [address] General Surgery 06/10/22 Fountain Operator Relationship Specialty Start Date End Date Ricky Bradley MD [address] [place] [address] PCP - General 02/05/02 Ricky Bradley MD [address] [place] [address] Referring Internal Medicine 12/07/21 Ricky Bradley MD [address] [place] [address] Home Care Provider Internal Medicine 12/07/21 Leda Christensen, PT [address] [place] [address] Supervisor Phosphoric Acid Post Acute Care 12/14/21 Kai Alvarado PA-C [address] [place] [address] Gastroenterology 06/10/22 Ingrid Morales PA-C [address] [place] [address] General Surgery 06/10/22 Fountain Operator Relationship Specialty Start Date End Date Ricky Bradley MD [address] [place] [address] PCP - General 02/05/02 Ricky Bradley MD [address] [place] [address] Referring Internal Medicine 12/07/21 Ricky Bradley MD [address] [place] [address] Home Care Provider Internal Medicine 12/07/21 Leda Christensen, PT [address] [place] [address] Supervisor Phosphoric Acid Post Acute Care 12/14/21 Kai Alvarado PA-C [address] [place] [address] Gastroenterology 06/10/22 Ingrid Morales PA-C [address] [place] [address] General Surgery 06/10/22 Fountain Operator Relationship Specialty Start Date End Date Ricky Bradley MD [address] [place] [address] PCP - General 02/05/02 Ricky Bradley MD [address] [place] [address] Referring Internal Medicine 12/07/21 Ricky Bradley MD [address] [place] [address] Home Care Provider Internal Medicine 12/07/21 Leda Christensen, PT [address] [place] [address] Supervisor Phosphoric Acid Post Acute Care 12/14/21 Kai Alvarado PA-C [address] [place] [address] Gastroenterology 06/10/22 Ingrid Morales PA-C [address] [place] [address] General Surgery 06/10/22 Fountain Operator Relationship Specialty Start Date End Date Ricky Bradley MD [address] [place] [address] PCP - General 02/05/02 Ricky Bradley MD [address] [place] [address] Referring Internal Medicine 12/07/21 Ricky Bradley MD [address] [place] [address] Home Care Provider Internal Medicine 12/07/21 Leda Christensen, PT [address] [place] [address] Supervisor Phosphoric Acid Post Acute Care 12/14/21 Kai Alvarado PA-C [address] [place] [address] Gastroenterology 06/10/22 Ingrid Morales PA-C [address] [place] [address] General Surgery 06/10/22 Fountain Operator Relationship Specialty Start Date End Date Ricky Bradley MD [address] [place] [address] PCP - General 02/05/02 Ricky Bradley MD [address] [place] [address] Referring Internal Medicine 12/07/21 Ricky Bradley MD [address] [place] [address] Home Care Provider Internal Medicine 12/07/21 Leda Christensen, PT [address] [place] [address] Supervisor Phosphoric Acid Post Acute Care 12/14/21 Kai Alvarado PA-C [address] [place] [address] Gastroenterology 06/10/22 Ingrid Morales PA-C [address] [place] [address] General Surgery 06/10/22 Fountain Operator Relationship Specialty Start Date End Date Ricky Bradley MD [address] [place] [address] PCP - General 02/05/02 Ricky Bradley MD [address] [place] [address] Referring Internal Medicine 12/07/21 Ricky Bradley MD [address] [place] [address] Home Care Provider Internal Medicine 12/07/21 Leda Christensen, PT [address] [place] [address] Supervisor Phosphoric Acid Post Acute Care 12/14/21 Kai Alvarado PA-C [address] [place] [address] Gastroenterology 06/10/22 Ingrid Morales PA-C [address] [place] [address] General Surgery 06/10/22 Fountain Operator Relationship Specialty Start Date End Date Ricky Bradley MD [address] [place] [address] PCP - General 02/05/02 Ricky Bradley MD [address] [place] [address] Referring Internal Medicine 12/07/21 Ricky Bradley MD [address] [place] [address] Home Care Provider Internal Medicine 12/07/21 Leda Christensen, PT [address] [place] [address] Supervisor Phosphoric Acid Post Acute Care 12/14/21 Kai Alvarado PA-C [address] [place] [address] Gastroenterology 06/10/22 Ingrid Morales PA-C [address] [place] [address] General Surgery 06/10/22 Fountain Operator Relationship Specialty Start Date End Date Ricky Bradley MD [address] [place] [address] PCP - General 02/05/02 Ricky Bradley MD [address] [place] [address] Referring Internal Medicine 12/07/21 Ricky Bradley MD [address] [place] [address] Home Care Provider Internal Medicine 12/07/21 Leda Christensen, PT [address] [place] [address] Supervisor Phosphoric Acid Post Acute Care 12/14/21 Kai Alvarado PA-C [address] [place] [address] Gastroenterology 06/10/22 Ingrid Morales PA-C [address] [place] [address] General Surgery 06/10/22 Fountain Operator Relationship Specialty Start Date End Date Ricky Bradley MD [address] [place] [address] PCP - General 02/05/02 Ricky Bradley MD [address] [place] [address] Referring Internal Medicine 12/07/21 Ricky Bradley MD [address] [place] [address] Home Care Provider Internal Medicine 12/07/21 Leda Christensen, PT [address] [place] [address] Supervisor Phosphoric Acid Post Acute Care 12/14/21 Kai Alvarado PA-C [address] [place] [address] Gastroenterology 06/10/22 Ingrid Morales PA-C [address] [place] [address] General Surgery 06/10/22 Fountain Operator Relationship Specialty Start Date End Date Ricky Bradley MD [address] [place] [address] PCP - General 02/05/02 Ricky Bradley MD [address] [place] [address] Referring Internal Medicine 12/07/21 Ricky Bradley MD [address] [place] [address] Home Care Provider Internal Medicine 12/07/21 Leda Christensen, PT [address] [place] [address] Supervisor Phosphoric Acid Post Acute Care 12/14/21 Kai Alvarado PA-C [address] [place] [address] Gastroenterology 06/10/22 Ingrid Morales PA-C [address] [place] [address] General Surgery 06/10/22 Fountain Operator Relationship Specialty Start Date End Date Ricky Bradley MD [address] [place] [address] PCP - General 02/05/02 Ricky Bradley MD [address] [place] [address] Referring Internal Medicine 12/07/21 Ricky Bradley MD [address] [place] [address] Home Care Provider Internal Medicine 12/07/21 Leda Christensen, PT [address] [place] [address] Supervisor Phosphoric Acid Post Acute Care 12/14/21 Kai Alvarado PA-C [address] [place] [address] Gastroenterology 06/10/22 Ingrid Morales PA-C [address] [place] [address] General Surgery 06/10/22 Fountain Operator Relationship Specialty Start Date End Date Ricky Bradley MD [address] [place] [address] PCP - General 02/05/02 Ricky Bradley MD [address] [place] [address] Referring Internal Medicine 12/07/21 Ricky Bradley MD [address] [place] [address] Home Care Provider Internal Medicine 12/07/21 Kai Alvarado PA-C [address] [place] [address] Gastroenterology 06/10/22 Ingrid Morales PA-C [address] [place] [address] General Surgery 06/10/22 Fountain Operator Relationship Specialty Start Date End Date Bradley, Mauri, MD [address] [place] [address] PCP - General 02/05/02 Ricky Bradley MD [address] [place] [address] Referring Internal Medicine 12/07/21 Ricky Bradley MD [address] [place] [address] Home Care Provider Internal Medicine 12/07/21 Kai Alvarado PA-C [address] [place], [place] [address]106 Gastroenterology 06/10/22 Ingrid Morales PA-C [address] [place] [address] General Surgery 06/10/22 Fountain Operator Relationship Specialty Start Date End Date Ricky Bradley MD [address] [place] [address] PCP - General 02/05/02 Ricky Bradley MD [address] [place] [address] Referring Internal Medicine 12/07/21 Ricky Bradley MD [address] [place] [address] Home Care Provider Internal Medicine 12/07/21 Kai Alvarado PA-C [address] [place] [address] Gastroenterology 06/10/22 Ingrid Morales PA-C [address] [place], [place] [address]31 General Surgery 06/10/22 Fountain Operator Relationship Specialty Start Date End Date Ricky Bradley MD [address] [place], [place] [address]481 PCP - General 02/05/02 Ricky Bradley MD [address] [facility] [place] [address] Referring Internal Medicine 12/07/21 Ricky Bradley MD [address] [facility] [address] Home Care Provider Internal Medicine 12/07/21 Kai Alvarado PA-C [address] [place] [address] Gastroenterology 06/10/22 Ingrid Morales PA-C [address] [place] [address] General Surgery 06/10/22 Fountain Operator Relationship Specialty Start Date End Date Ricky Bradley MD [address] [facility] [address] PCP - General 02/05/02 Ricky Bradley MD [address] [facility] [address] Referring Internal Medicine 12/07/21 Ricky Bradley MD [address] [place] [address] Home Care Provider Internal Medicine 12/07/21 Kai Alvarado PA-C [address] [place] [address] Gastroenterology 06/10/22 Ingrid Morales PA-C [address] [place] [address] General Surgery 06/10/22 Fountain Operator Relationship Specialty Start Date End Date Ricky Bradley MD [address] [facility] [place] [address] PCP - General 02/05/02 Ricky Bradley MD [address] [place] [address] Referring Internal Medicine 12/07/21 Ricky Bradley MD [address] [facility] [place] [address] Home Care Provider Internal Medicine 12/07/21 Kai Alvarado PA-C [address] [facility] [place] [address] Gastroenterology 06/10/22 Ingrid Morales PA-C [address] [place] [address] General Surgery 06/10/22 Fountain Operator Relationship Specialty Start Date End Date Ricky Bradley MD [address] [place] [address] PCP - General 02/05/02 Ricky Bradley MD [address] [facility] [place] [address] Referring Internal Medicine 12/07/21 Ricky Bradley MD [address] [place] [address] Home Care Provider Internal Medicine 12/07/21 Kai Alvarado PA-C [address] [facility] [facility] [place] [id number] Gastroenterology 06/10/22 Ingrid Morales PA-C [address] [place] [address] General Surgery 06/10/22 Fountain Operator Relationship Specialty Start Date End Date Ricky Bradley MD [address] [facility] [place] [address] PCP - General 02/05/02 Ricky Bradley MD [address] [facility] [place] [address] Referring Internal Medicine 12/07/21 Ricky Bradley MD [address] [facility] [place] [address] Home Care Provider Internal Medicine 12/07/21 Kai Alvarado PA-C [address] [place] [address] Gastroenterology 06/10/22 Ingrid Morales PA-C [address] [place] [address] General Surgery 06/10/22 Fountain Operator Relationship Specialty Start Date End Date Ricky Bradley MD [address] [place], [place] [id number] PCP - General 02/05/02 Ricky Bradley MD [address] [place] [address] Referring Internal Medicine 12/07/21 Ricky Bradley MD [address] [place] [address] Home Care Provider Internal Medicine 12/07/21 Leda Christensen, PT [address] [place] [address] Supervisor Phosphoric Acid Post Acute Care 12/14/21 12/05/22 Fountain Operator Relationship Specialty Start Date End Date Ricky Bradley MD [address] [place] [address] PCP - General 02/05/02 Ricky Bradley MD [address] [place], [place] [id number] Referring Internal Medicine 12/07/21 Ricky Bradley MD [address] [place], [place] [address] Home Care Provider Internal Medicine 12/07/21 Kai Alvarado PA-C [address] [facility] [place] [address] Gastroenterology 06/10/22 Ingrid Morales PA-C [address] [place], [place] [address] General Surgery 06/10/22 Fountain Operator Relationship Specialty Start Date End Date Ricky Bradley MD [address] [place], [place] [address] PCP - General 02/05/02 Ricky Bradley MD [address] [place], [place] [id number] Referring Internal Medicine 12/07/21 Ricky Bradley MD [address] [place], [place] [id number] Home Care Provider Internal Medicine 12/07/21 Kai Alvarado PA-C [address] [place] [address] Gastroenterology 06/10/22 Ingrid Morales PA-C [address] [place], [place] [address] General Surgery 06/10/22 FOR RECORDS PERTAINING TO PATIENTS WHO ARE OR HAVE BEEN ENROLLED IN A CHEMICAL DEPENDENCY/SUBSTANCEABUSE PROGRAM, SOME INFORMATION MAY BE OMITTED. This clinical summary was aggregated from multiple sources. Caution should be exercised in using it in the provision of clinical care. This summary normalizes information from multiple sources, and as a consequence, information in this document may materially change the coding, format and clinical context of patient data. In addition, data may be omitted in some cases. CLINICAL DECISIONS SHOULD BE BASED ON THE PRIMARY CLINICAL RECORDS. [employer] [facility]. provides no warranty or guarantee of the accuracy or completeness of information in this document.
[2023-04-06 22:35] LABS: Absolute Lymphocyte Count 0.21 X10^3/uL (0.83-4.51); Absolute Neutrophil Count 10.6 X10^3/uL (2.0-7.7); Basophil# 0.05 X10^3/uL; Basophil% 0.4 % (0-1); Eosinophil# 0.02 X10^3/uL; Eosinophils% 0.2 % (0-5); Hematocrit 43.3 % (40-54); Hemoglobin 14.3 g/dL (13.0-16.5); Lymphocyte # 0.21 X10^3/ul (0.83-4.51); Lymphocyte % 1.8 % (19-41); Mean Corpuscular Hgb 33.6 pg (27.0-32.0); Mean Corpuscular Volume 101.6 fL (80-94); Mean Platelet Vol. 10.7 fl (6.2-12.0); Monocyte# 0.47 X10^3/uL; Monocyte% 4.1 % (0-10); NRBC Flagged by Analyzer 0 % (0-5); Neutrophil # 10.62 X10^3/uL (2.7-7.7); Neutrophil % 93.2 % (47-70); POSITIVE DIFFERENTIAL YES; Platelet Count 131 K/mm3 (150-450); RBC Distribution Width CV 15.1 % (11.6-14.6); RBC Distribution Width SD 56.5 fl (35.1-43.9); Red Blood Count 4.26 M/mm3 (4.6-6.2); White Blood Count 11.4 K/mm3 (4.4-11.0)
[2023-04-06 22:40] LABS: Differential Indicated SCAN CRITERIA MET
[2023-04-06 22:55] VITALS: BP 96/56; PULSE 124; RESP 27; O2SAT 97
[2023-04-06 23:01] LABS: Anion Gap 5 (5-15); BUN 22 mg/dL (7-18); BUN/Creat Ratio 24.9 RATIO (10-20); Calcium,Total 11.2 mg/dL (8.5-10.1); Chloride 110 mmol/L (98-107); Creatinine, Serum 0.88 mg/dL (0.70-1.30); EST Glomerular Filtration Rate 87 mL/min (>60); Est Glom Filt Rate - Afr Amer 106 mL/min (>60); Estimated Creatinine Clearance 65.67 ml/min; Glucose 96 mg/dL (74-106); Potassium 4.4 mmol/L (3.5-5.1); Sodium Level 142 mmol/L (136-145); Troponin-I HS (w/2H Reflex) 24 pg/mL (3.0-78.0)
[2023-04-06 23:12] LABS: BNP,B-Type NATRIURETIC PEPTIDE 270.4 pg/mL (0-100)
[2023-04-06] MEDS: Ceftriaxone 1 GM/50 ML BAG IV (23:19)
--- NOTE | 2023-04-06 23:35 | HP.PCM.HOS_ITS ---
[facility] - General General Date of Admission: 04/07/23 Date of Service: 04/06/23 Chief Complaint: Shortness of breath HPI Narrative FRANCISCO MACK, is a 82 M with a past medical history of essential hypertension, hyperlipidemia; with intolerance to statins, obesity; with BMI of 38.4 this admission, history of nonalcoholic fatty liver disease; with splenomegaly and cirrhosis, obstructive sleep apnea; treated with BiPAP, history of asthma, hist ory of paroxysmal atrial fibrillation; apparently not currently on anticoagulation, history of aortic stenosis; status post bioprosthetic aortic valve replacement (2010), history of CVA, history of liver cancer, history of retinal artery occlusion (2019), history of chronic thrombocytopenia, anemia of chronic disease, chronic kidney disease; stage III, history of polycystic kidney disease, chronic lower extremity lymphedema; previously followed by Wound Care that he has not seen for months, depression, gout, GERD followed by the [facility] who presents to [facility] ER complaining of shortness of breath. Mr. Mack reports his symptoms began approximately 2 weeks prior to admission with dyspnea on exertion that progressed to shortness of breath at rest. He also admits to a nonproductive cough. He states that he was initially supposed to go to the [facility] position approximately 2- 1/2 weeks ago but could not get in the van. He stated that he did not have a ride-but he does have a daughter who is actively involved in his care. His daughter states that he is very stubborn and does not want help. In addition to this she also states that he is generally weak and when she went to pick him up he could not even walk. He denies associated fever, chills, nausea, vomiting and he states that he is able to sleep flat at night without shortness of breath . In the ER he was noted to have bilateral lower lobe infiltrates consistent with suspected community-acquired pneumonia complicated by clinical evidence of acute hypoxic respiratory insufficiency and right lower extremity cellulitis he was then admitted to the PCU for ongoing care for stay that is expected to be greater than 48 hours. [facility] Medical History Anemia Anemia in chronic kidney disease Anemia of chronic disease Aortic valve disorder Asthma Body mass index (BMI) 40.0-44.9, adult Chronic acquired lymphedema CKD (chronic kidney disease), stage III Depression Essential (primary) hypertension GERD (gastroesophageal reflux disease) Gout History of cerebrovascular accident History of splenomegaly Hyperlipemia Liver cancer Morbid obesity Multiple lung nodules New onset atrial flutter Non-alcoholic cirrhosis Nonobstructive atherosclerosis of coronary artery Nonrheumatic aortic (valve) stenosis OAB (overactive bladder) Obesity Obesity (BMI 30-39.9) DEMI treated with BiPAP Osteoarthritis PCK (polycystic kidney disease) Peripheral neuropathy Polycystic kidney disease 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) Right bundle branch block (RBBB) Splenomegaly Thrombocytopenia Thrombocytopenia Urge incontinence Home Medications allopurinol 300 mg tablet 300 mg PO DAILY gout 04/12/16 [History Last Taken 04/07/19] fenofibrate nanocrystallized 48 mg tablet 48 mg PO DAILY cholesterol 04/12/16 [History Last Taken 04/07/19] magnesium oxide 400 mg (241.3 mg magnesium) tablet 400 mg PO DAILY supplement 04/12/16 [History Last Taken 04/07/19] xuttkcun-hjm-jpchg acid 0.4 mg-lycopene 300 mcg-lutein 250 mcg tablet 1 ea PO DAILY vitamin 04/12/16 [History Last Taken 04/07/19] sertraline 100 mg tablet 50 mg PO QHS depression 09/05/19 [History Last Taken Unknown] aspirin 81 mg tablet,delayed release (Adult Aspirin Regimen) 81 mg PO DAILY 11/10/20 [History Last Taken Unknown] ferrous sulfate 325 mg (65 mg iron) tablet 325 mg PO BID 11/10/20 [History Last Taken Unknown] albuterol sulfate 90 mcg/actuation aerosol inhaler 2 puff inhalation Q6H PRN ASTHMA 05/25/21 [History Last Taken Unknown] fluticasone propionate 50 mcg/actuation nasal spray,suspension 1 spray intranasal DAILY 05/25/21 [History Last Taken Unknown] omeprazole 40 mg capsule,delayed release 40 mg PO DAILY 05/25/21 [History Last Taken Unknown] oxybutynin chloride 15 mg tablet,extended release 24 hr 30 mg PO DAILY 05/25/21 [History Last Taken Unknown] ascorbic acid (vitamin C) 500 mg capsule 500 mg PO DAILY 05/17/22 [History Last Taken Unknown] furosemide 20 mg tablet 20 mg PO Q OTHER DAY 05/17/22 [History Last Taken Unknown] nitroglycerin 0.4 mg sublingual tablet 0.4 mg sublingual Q5M PRN chest pain 05/17/22 [History Last Taken Unknown] lidocaine 5 % topical patch (Lidoderm) 1 patch topical DAILY #15 ea 09/11/22 [Rx Last Taken Unknown] cyanocobalamin (vitamin B-12) 5,000 mcg capsule 2,500 mcg PO DAILY 10/29/22 [History Last Taken Unknown] rifaximin 550 mg tablet (Xifaxan) 550 mg PO BID 10/29/22 [History Last Taken Unknown] diltiazem HCl 120 mg capsule,extended release 24 hr 120 mg PO DAILY #30 caps 12/07/22 [Rx Last Taken Unknown] metoprolol tartrate 25 mg tablet 25 mg PO BID #60 tabs 12/07/22 [Rx Last Taken Unknown] fluticasone furoate 200 mcg-vilanterol 25 mcg/dose inhalation powder (Breo Ellipta) 1 inh inhalation DAILY 04/06/23 [History Last Taken Unknown] Allergy/AdvReac Type Severity Reaction Status Date / Time hydrocodone [From Vicodin] Allergy Other Verified 04/06/23 21:38 strawberry Allergy Hives Verified 04/06/23 21:38 venom-honey bee Allergy Anaphylaxis Verified 04/06/23 21:38 [bee venom (honey bee)] adhesive tape AdvReac Rash Verified 10/29/22 19:14 atorvastatin AdvReac PT UNSURE Verified 04/06/23 21:38 OF REACTION montelukast AdvReac PT UNSURE Verified 04/06/23 21:38 OF REACTION Family History Father CAD (coronary artery disease) Brother Diabetes Mother Heart disease Surgical History Aortic valve replaced History of aortic valve replacement with bioprosthetic valve (01/18/11) History of hip surgery (08/2019) History of knee replacement History of left heart catheterization (01/05/11) History of tonsillectomy History of total left hip arthroplasty History of total left hip replacement History of umbilical hernia repair Social History household members: none Smoking Status: Never smoker alcohol intake: never substance use type: does not use ROS ROS Narrative Review of systems: Constitutional: Patient denies fevers, chills or night sweats. Eyes: Patient denies changes in vision or discharge from eyes. ENT: Patient denies ear pain, runny nose or sore throat. Cardiovascular: Patient denies chest pain, chest pressure or palpitations. Respiratory: Patient admits to dyspnea on exertion that progressed to shortness of breath at rest with a nonproductive cough. Gastrointestinal: Patient denies abdominal pain, constipation diarrhea, nausea or vomiting. Genitourinary: Patient denies dysuria, hematuria or urinary frequency. Musculoskeletal: Patient admits to generalized weakness with chronic ambulatory dysfunction as outlined above. Patient denies arthralgias or myalgias. Integumentary: Patient admits to chronic lower extremity lymphedema with acute redness and swelling of his right anterior nair area with obvious cellulitis. Neurologic: Patient denies headache, paresthesias, weakness or focal neurologic deficits. Psychiatric: Patient denies significant anxiety or depression. Endocrine: Patient denies polyuria, polydipsia or polyphagia. Allergic: Patient denies lip swelling, tongue swelling or urticaria. Hematologic: Patient denies easy bleeding or easy bruisability. 14 point review systems otherwise negative save for positives noted above in HPI. Vital Signs Vital Signs Vital Signs: 04/06/23 21:39 04/06/23 21:44 04/06/23 22:06 Temperature 98.2 F 98.2 F Temperature Source Oral Oral Pulse Rate 130 H 130 H Respiratory Rate 18 18 Blood Pressure 127/92 H 127/92 H Blood Pressure Mean 103 103 Pulse Ox 91 93 91 Oxygen Delivery Method Room Air Room Air Room Air Oxygen Flow Rate (L/min) 04/06/23 22:55 Temperature Temperature Source Pulse Rate 124 H Respiratory Rate 27 H Blood Pressure 96/56 L Blood Pressure Mean 69 Pulse Ox 97 Oxygen Delivery Method Nasal Cannula Oxygen Flow Rate (L/min) 2 Weight Weight: 267 lb 6.731 oz Body Mass Index (BMI) 38.3 Physical Exam Const alert, oriented x3 and no apparent distress Constitutional Narrative: Patient is very obese and appears chronically ill. General Appearance: cooperative HEENT normocephalic, head/scalp atraumatic and hearing grossly normal bilaterally HEENT Narrative: Oropharynx dry. Eyes PERRL and EOMs intact bilaterally Neck no lymphadenopathy and supple Resp Resp Narrative: Diminished breath sounds throughout. Cardio Cardio Narrative: Irregularly irregular at approximately 120 bpm. GI normal to inspection, nondistended, normoactive bowel sounds, soft to palpation, non-tender and non-distended GI Narrative: Obese. Extremity Extremity Narrative: Patient has chronic lower extremity swelling with erythema and increased warmth in the right tibial region. Skin Skin Narrative: Patient has chronic lower extremity swelling with erythema and increased warmth in the right anterior tibial region. Neuro oriented x3, CN's II-XII intact bilaterally, moves all extremities and no focal motor deficits Sensorium / Orientation: awake, alert, oriented to person, oriented to place and oriented to time Speech: speech normal Psych affect normal Results Medical Records Data Attestation: I reviewed the patient's medical records Lab / Micro Data Attestation: I reviewed the patient's lab results. 04/07/23 03:30 04/07/23 03:30 Labs: Laboratory Results - last 24 hr 04/06/23 21:56: WBC 11.4 H, RBC 4.26 L, Hgb 14.3, Hct 43.3, MCV 101.6 H, MCH 33.6 H, MCHC 33.0, RDW Std Deviation 56.5 H, RDW Coeff of Raina 15.1 H, Plt Count 131 L, MPV 10.7, Immature Gran % (Auto) 0.300, Neut % (Auto) 93.2 H, Lymph % (Auto) 1.8 L, Becker % (Auto) 4.1, Eos % (Auto) 0.2, Baso % (Auto) 0.4, Absolute Neuts (auto) 10.6 H, Absolute Lymphs (auto) 0.21 L, Nucleated RBC % 0, Differential Comment , Sodium 142, Potassium 4.4, Chloride 110 H, Carbon Dioxide 27.0, Anion Gap 5, BUN 22 H, Creatinine 0.88, Estim Creat Clear Calc 65.67, Est GFR (MDRD) Af Amer 106, Est GFR (MDRD) Non-Af 87, BUN/Creatinine Ratio 24.9 H, Glucose 96, Calcium 11.2 H, Troponin I High Sens 24, B-Natriuretic Peptide 270.4 H Imagaing Radiology Impression Chest X-Ray 04/06/23 22:07 IMPRESSION: Bilateral lower lobe airspace disease which may represent pneumonia. Electronically Signed: Harinder Cristina MD at 22:36 EST , Assessment & Plan Assessment/Plan (1) Paroxysmal A-fib: PLAN: Plan 1. Bibasilar pneumonia evident on chest x-ray with leukocytosis of 11.4 present on admission - Admit to PCU. Continue broad-spectrum antibiotics and await culture and sensitivity data. Give Tylenol as needed for mild to moderate level 1-5 out of 10 pain or fever. Give Mucinex twice daily to thin and mobilize secretions. Give nebulizers as needed for wheezing. The patient's BNP is only mildly elevated to 270.4 pg/mL present on admission making AE CHF less likely primary diagnosis in this case. Finally, we will check V/Q scan to evaluate for possible PE with highly elevated D-dimer of 3.03 present on admission and chronic lower extremity edema. 2. Paroxysmal atrial fibrillation; with rapid ventricular response of approxima tely 120 to 130 bpm present on admission complicating #1 - Start full dose Lovenox for CVA prophylaxis. Also start IV Cardizem drip to be titrated to keep heart rate less than or equal to 100 bpm. Check echocardiogram to evaluate left ventricular ejection fraction. Finally, we will consult the supervisor pumping station on- call to see this patient on rounds in the a.m. for further recommendations with help appreciated in advance. 3. Right leg cellulitis in the setting of chronic lower extremity lymphedema and very poor mobility compounding #1 and #2 - Continue antibiotics initiated for #1. Keep leg elevated. Check lower extremity Doppler to evaluate for DVT with elevated D-dimer of 3.03 present on admission. Finally, he will need to be reset up with wound care follow-up at the time of discharge. 4. Hypercalcemia of 11.2 mg/dL present on admission adding to the pathology of #1 - #3 - Give normal saline IV fluid plus Lasix 40 mg IV x 1. Check intact PTH and reassess calcium level in the a.m. to monitor response to treatment. 5. Acute hypoxic respiratory insufficiency likely arising from #1 - #4 - Wean supplemental oxygen as tolerated. 6. Obesity; with a BMI of 38.4 present on admission with chronic generalized weakness and ambulatory dysfunction exacerbating #1 - #5 - Weight loss will be recommended. Check TSH this admission. Finally, we will consult PT OT and case management to see this patient on rounds in the a.m. for further recommendations as he may require ECF for subacute rehabilitation at the time his treatment for this admission is concluded. 7. History of nonalcoholic fatty liver disease; with splenomegaly and cirrhosis in the setting of previous liver cancer - Stable ascites present on CT this admission. 8. Essential hypertension - Continue home medications as previous plus give as needed IV hydralazine for systolic blood pressure greater than 160 mmHg. 9. Hyperlipidemia; with intolerance to statins - Check lipid profile this admission. 10. Obstructive sleep apnea; treated with BiPAP - Resume CPAP. 11. History of asthma - Stable with no evidence of flare at this time. Continue as needed nebulizers. 12. History of aortic stenosis; status post bioprosthetic aortic valve replacement (2010) - Noted. 13. History of CVA - Noted. 14. History of retinal artery occlusion (2019) - Noted. 15. History of chronic thrombocytopenia - Noted with level of 131 present on admission. 16. Anemia of chronic disease in the setting of chronic kidney disease; stage III - Stable. 17. History of polycystic kidney disease - Noted. 18. Depression - Continue medications as previous plus give as needed Xanax for breakthrough symptoms. 19. Chronic Gout - Stable with no evidence of acute flare. 20. GERD - Continue PPI. 21. DVT prophylaxis - Patient on full-dose Lovenox for #2. Total time: Approximately 55 minutes.
[2023-04-06] MEDS: 0.9% Normal Saline (1000mL) 1,000 ML 999 ML IV (23:36)
[2023-04-06 23:37] VITALS: BP 111/73; PULSE 118; RESP 22; TEMP 36.8; O2SAT 95
[2023-04-06 23:53] LABS: D-Dimer Quantitative (DVT/PE) 3.03 FEU/ug/m (0.27-0.49)
[2023-04-07] VITALS (23 sets, daily range): BP systolic 67–112; BP diastolic 54–81; PULSE 70–140; RESP 14–24; TEMP 36.4–37.1; O2SAT 89–99; BMI 38.2
--- NOTE | 2023-04-07 00:01 | CT_ITS ---
EXAM: CT ANGIOGRAPHY CHEST WITHOUT AND WITH INTRAVENOUS CONTRAST CLINICAL INDICATION: hypoxia TECHNIQUE: Helically acquired angiography images were obtained of the chest without and with intravenous contrast. This CT exam was performed using one or more of the following dose reduction techniques: automated exposure control, adjustment of the mA and/or kV according to patient size, and/or use of iterative reconstruction technique. MIP reconstructed images were created and reviewed. CONTRAST: IV 100mL [id number] RADIATION DOSE: Total DLP: 734.37 mGy-cm. COMPARISON: Portable chest radiograph of 04/06/2023. CTA chest of 12/07/2022. FINDINGS: PULMONARY ARTERIES: Unremarkable. Normal in caliber. No evidence of pulmonary embolism. AORTA: Unremarkable. Normal in caliber. No evidence of dissection. GREAT VESSELS OF AORTIC ARCH: Unremarkable. Normal in caliber. No evidence of dissection. LUNGS AND PLEURAL SPACES: Extensive asymmetric airspace disease has developed within the left lower lobe since the prior CT, with surrounding groundglass opacities and internal air bronchograms. A small associated left pleural effusion is present, slightly larger than on the prior study. A small -moderate right pleural effusion has developed. Patchy airspace disease is seen posteriorly within the right lower lobe, less severe than on the left. Pulmonary interstitial markings are less thickened than on the prior study with minimal subpleural interstitial thickening persisting bilaterally. Minimal subpleural groundglass opacities have developed within the left upper lobe, right middle lobe and posterior aspect of the right upper lobe. HEART: Previous median sternotomy and CABG, along with aortic and mitral valve repair. Coronary artery calcification is present. No significant pericardial effusion. MEDIASTINUM: Hiatal hernia is again demonstrated, measuring 6.7 cm in transverse diameter. No mediastinal or hilar adenopathy. Esophagus is unremarkable. THYROID: Unremarkable. No thyroid lesions. BONES/JOINTS: Subacute to old fracture of the right seventh rib again noted, and demonstrates further interval healing since prior study. There is accentuated thoracic kyphosis with lower thoracic degenerative spurring. Lower cervical degenerative disc disease is present. LYMPH NODES: A borderline enlarged pretracheal lymph node is present, measuring 10 mm in short axis diameter, unchanged. Mild adenopathy has developed in the AP window since the prior study. No hilar adenopathy is identified. LIVER: Findings of hepatic cirrhosis are again noted with associated splenomegaly. Moderate to large amount of ascites is present, greater than on the prior exam. Multiple small stones are again noted within the dependent portion of the gallbladder. Pancreas is atrophic. No pneumoperitoneum is noted. CT/CTA Chest W/WO Contrast IMPRESSION: 1. Negative for PE. 2. No thoracic aortic dissection. 3. Bilateral lower lobe pneumonia, left greater than right. 4. Small areas of groundglass opacity in the upper lobes and right middle lobe, which could be due to atelectasis or possibly Covid pneumonia. 5. Bilateral pleural effusions, right greater than left. 6. Hiatal hernia again noted. 7. Findings of hepatic cirrhosis again noted with splenomegaly and increasing ascites. 8. Cholelithiasis again noted. Electronically Signed: Raulito Tolbert MD at 2:15 EST ,
--- OUTSIDE RECORDS SUMMARY | 2023-04-07 00:11 | XMS RPT_ITS | CCD ---
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 Name Role Phone LUIS CARLOS, ZENON E [...] Unavailable MASCI, YUNIEL Garrison Referring Unavailable [facility]LEY, [facility] Primary Care Unavailable DAMON GRAY Attending Unavailable CLEVE, KAI Referring Unavailable BRADLEY, MAURI Primary Care Unavailable MASCI, YUNIEL Garrison Attending Unavailable MASCI, YUNIEL Garrison Referring Unavailable BRADLEY, MAURI Attending Unavailable [facility]ADLEY, [facility] Primary Care Unavailable CLEVE, KAI Referring Unavailable BRADLEY, MAURI Primary Care Unavailable CLEVE, KAI Referring Unavailable BRADLEY, MAURI Primary Care Unavailable CLEVE, KAI Referring Unavailable BRADLEY, [facility] Primary Care Unavailable BUBBA SYKES [...] Care Unavailable BUBBA SYKES Referring Unavailable BRADLEY, [facility] Primary Care Unavailable BUBBA SYKES [...] Admitting Unavailable ANGIE SINGH Attending Unavailable BRADLEY, [facility] Primary Care Unavailable BRADLEY, MAURI Primary Care Unavailable MASCI, YUNIEL Garrison Referring Unavailable MASCI, YUNIEL Garrison Referring Unavailable BRADLEY, MAURI Primary Care Unavailable MASCI, YUNIEL Garrison Referring Unavailable BRADLEY, [facility] Primary Care Unavailable HALEY HAMPTON [...] Unavailable BRADLEY, MAURI Attending Unavailable BRADLEY, MAURI Referring Unavailable [...] [ACETAMINOPHEN] Drug Allergy 7 Other: See Comments [facility] Other [place] Repository (20 sources) atorvastatin; Translations: [ATORVASTATIN CALCIUM] Drug Allergy 5 Itching [facility] Repository (20 sources) Bee; Translations: [BEES] Propensity to adverse reactions (disorder) 5 Anaphylaxis [facility] Repository (20 sources) HYDROcodone; Translations: [HYDROCODONE] Drug Allergy 7 GI Upset [facility] Repository (20 sources) montelukast; Translations: [MONTELUKAST SODIUM] Drug Allergy 3 Itching [facility] Repository (20 sources) [place]; Translations: [STRAWBERRIES] Propensity to adverse reactions to food (disorder) 1 Hives [facility] Rep[facility] Medications Current Medications Medication Drug Class(es) [...] Drug Class(es) Dates Sig (Normalized) Sig (Original) [id number] 200 actuat albuterol 0.09 mg/actuat metered dose [...] disease (20 sources) Atherosclerotic heart disease of [place] coronary artery without angina pectoris; Translations: [Coronary [...] 177.8 cm Haley Hampton MD Work Phone: [facility] 02-02-2023 14:09-0400 Body temperature 97.81 [degF] Haley Hampton MD Work Phone: [facility] 02-02-2023 14:09-0400 Body weight 111.86 kg Haley Hampton MD Work Phone: [facility] 02-02-2023 14:09-0400 Diastolic blood pressure 89 mm[Hg] Haley Hampton MD Work Phone: [facility] 02-02-2023 14:09-0400 Heart rate 129 /min Haley Hampton MD Work Phone: [facility] 02-02-2023 14:09-0400 SaO2% (BldA) [Mass fraction] 98 % Haley Hampton MD Work Phone: [facility] 02-02-2023 14:09-0400 Systolic blood pressure 118 mm[Hg] Haley Hampton MD Work Phone: [facility] 01-02-2023 09:44-0400 Body temperature 97.5 [degF] Treatment Wstr Work Phone: [facility] 01-02-2023 09:44-0400 Diastolic blood pressure 79 mm[Hg] Treatment Wstr Work Phone: [facility] 01-02-2023 09:44-0400 Heart rate 100 /min Treatment Wstr Work Phone: [facility] 01-02-2023 09:44-0400 Systolic blood pressure 131 mm[Hg] Treatment Wstr Work Phone: [facility] 12-28-2022 11:50-0400 Body temperature 97 [degF] Treatment Wstr Work Phone: [facility] 12-28-2022 11:50-0400 Diastolic blood pressure 77 mm[Hg] Treatment Wstr Work Phone: [facility] 12-28-2022 11:50-0400 Heart rate 70 /min Treatment Wstr Work Phone: [facility] 12-28-2022 11:50-0400 Systolic blood pressure 127 mm[Hg] Treatment Wstr Work Phone: [facility] 12-26-2022 09:49-0400 Body temperature 97.9 [degF] Treatment Wstr Work Phone: [facility] 12-26-2022 09:49-0400 Diastolic blood pressure 89 mm[Hg] Treatment Wstr Work Phone: [facility] 12-26-2022 09:49-0400 Heart rate 71 /min Treatment Wstr Work Phone: [facility] 12-26-2022 09:49-0400 Systolic blood pressure 133 mm[Hg] Treatment Wstr Work Phone: [facility] 12-23-2022 09:57-0400 Body temperature 98.6 [degF] Treatment Wstr Work Phone: [facility] 12-23-2022 09:57-0400 Diastolic blood pressure 65 mm[Hg] Treatment Wstr Work Phone: [facility] 12-23-2022 09:57-0400 Heart rate 65 /min Treatment Wstr Work Phone: [facility] 12-23-2022 09:57-0400 SaO2% (BldA) [Mass fraction] 95 % Treatment Wstr Work Phone: [facility] 12-23-2022 09:57-0400 Systolic blood pressure 108 mm[Hg] Treatment Wstr Work Phone: [facility] 12-21-2022 09:45-0400 Body temperature 97.9 [degF] Treatment Wstr Work Phone: [facility] 12-21-2022 09:45-0400 Diastolic blood pressure 68 mm[Hg] Treatment Wstr Work Phone: [facility] 12-21-2022 09:45-0400 Heart rate 60 /min Treatment Wstr Work Phone: [facility] 12-21-2022 09:45-0400 SaO2% (BldA) [Mass fraction] 98 % Treatment Wstr Work Phone: [facility] 12-21-2022 09:45-0400 Systolic blood pressure 107 mm[Hg] Treatment Wstr Work Phone: [facility] 12-09-2022 15:37-0400 Body height 171 cm Yuniel Masci DO Work Phone: [facility] 12-09-2022 15:37-0400 Body temperature 97.9 [degF] Yuniel Masci DO Work Phone: [facility] 12-09-2022 15:37-0400 Body weight 109.77 kg Yuniel Masci DO Work Phone: [facility] 12-09-2022 15:37-0400 Diastolic blood pressure 63 mm[Hg] Yuniel Masci DO Work Phone: [facility] 12-09-2022 15:37-0400 Heart rate 70 /min Yuniel Masci DO Work Phone: [facility] 12-09-2022 15:37-0400 SaO2% (BldA) [Mass fraction] 100 % Yuniel Dahl DO Work Phone: [facility] 12-09-2022 15:37-0400 Systolic blood pressure 108 mm[Hg] Yuniel Dahl DO Work Phone: [facility] 08-19-2022 14:23-0400 Body temperature 97.9 [degF] Nurse Main Work Phone: [facility] 08-19-2022 14:23-0400 Body weight 107.32 kg Nurse Main Work Phone: [facility] 08-19-2022 14:23-0400 Diastolic blood pressure 65 mm[Hg] Nurse Main Work Phone: [facility] 08-19-2022 14:23-0400 Heart rate 75 /min Nurse Main Work Phone: [facility] 08-19-2022 14:23-0400 Respiratory rate 16 /min Nurse Main Work Phone: [facility] 08-19-2022 14:23-0400 SaO2% (BldA) [Mass fraction] 96 % Nurse Main Work Phone: [facility] 08-19-2022 14:23-0400 Systolic blood pressure 111 mm[Hg] Nurse Main Work Phone: [facility] 08-10-2022 09:03-0400 Body height 177.8 cm Haley Hampton MD Work Phone: [facility] 08-10-2022 09:03-0400 Body temperature 97.3 [degF] Haley Hampton MD Work Phone: [facility] 08-10-2022 09:03-0400 Body weight 111.95 kg Haley Hampton MD Work Phone: [facility] 08-10-2022 09:03-0400 Diastolic blood pressure 60 mm[Hg] Haley Hampton MD Work Phone: [facility] 08-10-2022 09:03-0400 Heart rate 77 /min Haley Hampton MD Work Phone: [facility] 08-10-2022 09:03-0400 SaO2% (BldA) [Mass fraction] 98 % Haley Hampton MD Work Phone: [facility] 08-10-2022 09:03-0400 Systolic blood pressure 113 mm[Hg] Haley Hampton MD Work Phone: [facility] 08-03-2022 10:11-0400 Body weight 108.86 kg Bubba Sykes MD Work Phone: [facility] 08-03-2022 10:11-0400 Diastolic blood pressure 58 mm[Hg] Bubba Sykes MD Work Phone: [facility] 08-03-2022 10:11-0400 Heart rate 70 /min Bubba Sykes MD Work Phone: [facility] 08-03-2022 10:11-0400 Respiratory rate 18 /min Bubba Sykes MD Work Phone: [facility] 08-03-2022 10:11-0400 SaO2% (BldA) [Mass fraction] 89 % Bubba Sykes MD Work Phone: [facility] 08-03-2022 10:11-0400 Systolic blood pressure 106 mm[Hg] Bubba Sykes MD Work Phone: [facility] 07-04-2022 18:59-0400 Body weight 109.32 kg Ricky Bradley MD Work Phone: [facility] 07-04-2022 18:59-0400 Diastolic blood pressure 72 mm[Hg] Ricky Bradley MD Work Phone: [facility] 07-04-2022 18:59-0400 Heart rate 72 /min Ricky Bradley MD Work Phone: [facility] 07-04-2022 18:59-0400 SaO2% (BldA) [Mass fraction] 100 % Ricky Bradley MD Work Phone: [facility] 07-04-2022 18:59-0400 Systolic blood pressure 134 mm[Hg] Ricky Bradley MD Work Phone: [facility] 06-24-2022 14:21-0500 Body temperature 98.01 [degF] Bubba Son MD Work Phone: [facility] 06-24-2022 14:21-0500 Body weight 108.23 kg Bubba Son MD Work Phone: [facility] 06-24-2022 14:21-0500 Diastolic blood pressure 82 mm[Hg] Bubba Son MD Work Phone: [facility] 06-24-2022 14:21-0500 Heart rate 92 /min Bubba Son MD Work Phone: [facility] 06-24-2022 14:21-0500 Respiratory rate 18 /min Bubba Son MD Work Phone: [facility] 06-24-2022 14:21-0500 SaO2% (BldA) [Mass fraction] 98 % Bubba Son MD Work Phone: [facility] 06-24-2022 14:21-0500 Systolic blood pressure 132 mm[Hg] Bubba Son MD Work Phone: [facility] 06-10-2022 09:18-0500 Body temperature 97.3 [degF] Yuniel Dahl DO Work Phone: [facility] 06-10-2022 09:18-0500 Body weight 108.18 kg Yuniel Banuelosi DO Work Phone: [facility] 06-10-2022 09:18-0500 Diastolic blood pressure 72 mm[Hg] Yuniel Vini DO Work Phone: [facility] 06-10-2022 09:18-0500 Heart rate 66 /min Yuniel Banuelosi DO Work Phone: [facility] 06-10-2022 09:18-0500 SaO2% (BldA) [Mass fraction] 99 % Yuniel Dahl DO Work Phone: [facility] 06-10-2022 09:18-0500 Systolic blood pressure 122 mm[Hg] Yuniel Dahl DO Work Phone: [facility] 06-01-2022 15:16-0500 Body temperature 98.2 [degF] Treatment Wstr Work Phone: [facility] 06-01-2022 15:16-0500 Diastolic blood pressure 92 mm[Hg] Treatment Wstr Work Phone: [facility] 06-01-2022 15:16-0500 Heart rate 75 /min Treatment Wstr Work Phone: [facility] 06-01-2022 15:16-0500 Respiratory rate 16 /min Treatment Wstr Work Phone: [facility] 06-01-2022 15:16-0500 SaO2% (BldA) [Mass fraction] 100 % Treatment Wstr Work Phone: [facility] 06-01-2022 15:16-0500 Systolic blood pressure 129 mm[Hg] Treatment Wstr Work Phone: [facility] 05-30-2022 15:00-0500 Body temperature 96.91 [degF] Treatment Wstr Work Phone: [facility] 05-30-2022 15:00-0500 Diastolic blood pressure 74 mm[Hg] Treatment Wstr Work Phone: [facility] 05-30-2022 15:00-0500 Heart rate 73 /min Treatment Wstr Work Phone: [facility] 05-30-2022 15:00-0500 Respiratory rate 18 /min Treatment Wstr Work Phone: [facility] 05-30-2022 15:00-0500 SaO2% (BldA) [Mass fraction] 100 % Treatment Wstr Work Phone: [facility] 05-30-2022 15:00-0500 Systolic blood pressure 131 mm[Hg] Treatment Wstr Work Phone: [facility] 05-27-2022 14:37-0500 Body temperature 97.2 [degF] Treatment Wstr Work Phone: [facility] 05-27-2022 14:37-0500 Diastolic blood pressure 74 mm[Hg] Treatment Wstr Work Phone: [facility] 05-27-2022 14:37-0500 Heart rate 91 /min Treatment Wstr Work Phone: [facility] 05-27-2022 14:37-0500 Respiratory rate 16 /min Treatment Wstr Work Phone: [facility] 05-27-2022 14:37-0500 SaO2% (BldA) [Mass fraction] 98 % Treatment Wstr Work Phone: [facility] 05-27-2022 14:37-0500 Systolic blood pressure 136 mm[Hg] Treatment Wstr Work Phone: [facility] 05-25-2022 15:01-0500 Body temperature 97.59 [degF] Treatment Wstr Work Phone: [facility] 05-25-2022 15:01-0500 Diastolic blood pressure 90 mm[Hg] Treatment Wstr Work Phone: [facility] 05-25-2022 15:01-0500 Heart rate 88 /min Treatment Wstr Work Phone: [facility] 05-25-2022 15:01-0500 Respiratory rate 18 /min Treatment Wstr Work Phone: [facility] 05-25-2022 15:01-0500 SaO2% (BldA) [Mass fraction] 99 % Treatment Wstr Work Phone: [facility] 05-25-2022 15:01-0500 Systolic blood pressure 151 mm[Hg] Treatment Wstr Work Phone: [facility] 05-18-2022 15:03-0500 Body temperature 97.2 [degF] Treatment Wstr Work Phone: [facility] 05-18-2022 15:03-0500 Diastolic blood pressure 72 mm[Hg] Treatment Wstr Work Phone: [facility] 05-18-2022 15:03-0500 Heart rate 87 /min Treatment Wstr Work Phone: [facility] 05-18-2022 15:03-0500 Systolic blood pressure 144 mm[Hg] Treatment Wstr Work Phone: [facility] 05-16-2022 15:30-0500 Body temperature 96.6 [degF] Treatment Wstr Work Phone: [facility] 05-16-2022 15:30-0500 Diastolic blood pressure 77 mm[Hg] Treatment Wstr Work Phone: [facility] 05-16-2022 15:30-0500 Heart rate 86 /min Treatment Wstr Work Phone: [facility] 05-16-2022 15:30-0500 Respiratory rate 16 /min Treatment Wstr Work Phone: [facility] 05-16-2022 15:30-0500 SaO2% (BldA) [Mass fraction] 98 % Treatment Wstr Work Phone: [facility] 05-16-2022 15:30-0500 Systolic blood pressure 147 mm[Hg] Treatment Wstr Work Phone: [facility] 05-11-2022 14:54-0500 Body temperature 97.11 [degF] Treatment Wstr Work Phone: [facility] 05-11-2022 14:54-0500 Diastolic blood pressure 69 mm[Hg] Treatment Wstr Work Phone: [facility] 05-11-2022 14:54-0500 Heart rate 70 /min Treatment Wstr Work Phone: [facility] 05-11-2022 14:54-0500 SaO2% (BldA) [Mass fraction] 96 % Treatment Wstr Work Phone: [facility] 05-11-2022 14:54-0500 Systolic blood pressure 126 mm[Hg] Treatment Wstr Work Phone: [facility] 05-06-2022 14:55-0500 Body temperature 97.81 [degF] Treatment Wstr Work Phone: [facility] 05-06-2022 14:55-0500 Diastolic blood pressure 68 mm[Hg] Treatment Wstr Work Phone: [facility] 05-06-2022 14:55-0500 Heart rate 61 /min Treatment Wstr Work Phone: [facility] 05-06-2022 14:55-0500 SaO2% (BldA) [Mass fraction] 100 % Treatment Wstr Work Phone: [facility] 05-06-2022 14:55-0500 Systolic blood pressure 128 mm[Hg] Treatment Wstr Work Phone: [facility] 05-05-2022 15:19-0500 Body temperature 97.2 [degF] Ricky Bradley MD Work Phone: [facility] 05-05-2022 15:19-0500 Body weight 111.58 kg Ricky Bradley MD Work Phone: [facility] 05-05-2022 15:19-0500 Diastolic blood pressure 64 mm[Hg] Ricky Bradley MD Work Phone: [facility] 05-05-2022 15:19-0500 Heart rate 76 /min Ricky Bradley MD Work Phone: [facility] 05-05-2022 15:19-0500 Respiratory rate 16 /min Ricky Bradley MD Work Phone: [facility] 05-05-2022 15:19-0500 Systolic blood pressure 114 mm[Hg] Ricky Bradley MD Work Phone: [facility] 05-02-2022 13:19-0500 Body height 170.2 cm Ingrid Morales PA-C Work Phone: [facility] 05-02-2022 13:19-0500 Body temperature 98.91 [degF] Ingrid Andrew PA-C Work Phone: [facility] 05-02-2022 13:19-0500 Body weight 114.31 kg Ingrid Andrew PA-C Work Phone: [facility] 05-02-2022 13:19-0500 Diastolic blood pressure 80 mm[Hg] Ingrid Andrew PA-C Work Phone: [facility] 05-02-2022 13:19-0500 Heart rate 110 /min Ingrid [place] PA-C Work Phone: [facility] 05-02-2022 13:19-0500 SaO2% (BldA) [Mass fraction] 94 % Ingrid [place] PA-C Work Phone: [facility] 05-02-2022 13:19-0500 Systolic blood pressure 140 mm[Hg] Ingrid Andrew PA-C Work Phone: [facility] 03-22-2022 15:04-0500 Body temperature 98.01 [degF] Yuniel Masci DO Work Phone: [facility] 03-22-2022 15:04-0500 Body weight 110.9 kg Yuniel Masci DO Work Phone: [facility] 03-22-2022 15:04-0500 Diastolic blood pressure 81 mm[Hg] Yuniel Masci DO Work Phone: [facility] 03-22-2022 15:04-0500 Heart rate 93 /min Yuniel Masci DO Work Phone: [facility] 03-22-2022 15:04-0500 Systolic blood pressure 134 mm[Hg] Yuniel Masci DO Work Phone: [facility] 01-31-2022 13:57-0400 Body temperature 97.39 [degF] Ricky Bradley MD Work Phone: [facility] 01-31-2022 13:57-0400 Body weight 112.95 kg Ricky Bradley MD Work Phone: [facility] 01-31-2022 13:57-0400 Diastolic blood pressure 56 mm[Hg] Ricky Bradley MD Work Phone: [facility] 01-31-2022 13:57-0400 Heart rate 64 /min Ricky Bradley MD Work Phone: [facility] 01-31-2022 13:57-0400 Respiratory rate 16 /min Ricky Bradley MD Work Phone: [facility] 01-31-2022 13:57-0400 Systolic blood pressure 108 mm[Hg] Ricky Bradley MD Work Phone: [facility] 01-26-2022 10:50-0400 Body temperature 97.81 [degF] Leda Traylorman-Pedersen PT Work Phone: [facility] 01-26-2022 10:50-0400 Diastolic blood pressure 58 mm[Hg] Leda Traylorman-Pedersen PT Work Phone: [facility] 01-26-2022 10:50-0400 Heart rate 62 /min Leda Halderman-Pedersen PT Work Phone: [facility] 01-26-2022 10:50-0400 Respiratory rate 16 /min Leda Halderman-Pedersen PT Work Phone: [facility] 01-26-2022 10:50-0400 SaO2% (BldA) [Mass fraction] 99 % Leda Cassidyderman-Pedersen PT Work Phone: [facility] 01-26-2022 10:50-0400 Systolic blood pressure 112 mm[Hg] Leda Halderman-Pedersen PT Work Phone: [facility] 01-24-2022 09:59-0400 Body temperature 98.6 [degF] Raquel Shelly FLIGHT [employer]LLOWER Work Phone: [facility] 01-24-2022 09:59-0400 Diastolic blood pressure 60 mm[Hg] Raquel Shelly [employer]OWER Work Phone: [facility] 01-24-2022 09:59-0400 Heart rate 68 /min Raquel Shelly [employer]OWER Work Phone: [facility] 01-24-2022 09:59-0400 Respiratory rate 18 /min Raquel Shelly [employer]OWER Work Phone: [facility] 01-24-2022 09:59-0400 SaO2% (BldA) [Mass fraction] 99 % Raquel Shelly [employer]OWER Work Phone: [facility] 01-24-2022 09:59-0400 Systolic blood pressure 112 mm[Hg] Raquel Shelly [employer]OWER Work Phone: [facility] 01-21-2022 14:40-0400 Body temperature 98.01 [degF] Raquel Shelly FL[employer]OWER Work Phone: [facility] 01-21-2022 14:40-0400 Diastolic blood pressure 60 mm[Hg] Raquel Shelly [employer]OWER Work Phone: [facility] 01-21-2022 14:40-0400 Heart rate 64 /min Raquel Shelly [employer]OWER Work Phone: [facility] 01-21-2022 14:40-0400 Respiratory rate 18 /min Raquel Shelly [employer]OWER Work Phone: [facility] 01-21-2022 14:40-0400 SaO2% (BldA) [Mass fraction] 98 % Raquel Shelly [employer] Work Phone: [facility] 01-21-2022 14:40-0400 Systolic blood pressure 110 mm[Hg] Raquel Shelly [employer]OWER Work Phone: [facility] 01-13-2022 11:50-0400 Body temperature 98.2 [degF] Jacquelin Jimenez PT Work Phone: [facility] 01-13-2022 11:50-0400 Diastolic blood pressure 60 mm[Hg] Jacquelin Jimenez PT Work Phone: [facility] 01-13-2022 11:50-0400 Heart rate 68 /min Jacquelin Jimenez PT Work Phone: [facility] 01-13-2022 11:50-0400 Respiratory rate 16 /min Jacquelin Jimenez PT Work Phone: [facility] 01-13-2022 11:50-0400 SaO2% (BldA) [Mass fraction] 100 % Jacquelin Merrittox PT Work Phone: [facility] 01-13-2022 11:50-0400 Systolic blood pressure 120 mm[Hg] Jacquelin Jimenez PT Work Phone: [facility] 01-11-2022 09:04-0400 Body temperature 97.39 [degF] Raquel Shelly FL[employer]OWER Work Phone: [facility] 01-11-2022 09:04-0400 Diastolic blood pressure 64 mm[Hg] Raquel Shlely FLIGHT FOLLOWER Work Phone: [facility] 01-11-2022 09:04-0400 Heart rate 63 /min Raquel Shelly [employer]OWER Work Phone: [facility] 01-11-2022 09:04-0400 Respiratory rate 18 /min Raqeul Shelly FL[employer]OWER Work Phone: [facility] 01-11-2022 09:04-0400 SaO2% (BldA) [Mass fraction] 97 % Raquel Shelly [employer]OWER Work Phone: [facility] 01-11-2022 09:04-0400 Systolic blood pressure 112 mm[Hg] Raquel Shelly [employer]OWER Work Phone: [facility] 01-05-2022 10:00-0400 Diastolic blood pressure 60 mm[Hg] Leda Christensen PT Work Phone: [facility] 01-05-2022 10:00-0400 Heart rate 78 /min Leda Christensen PT Work Phone: [facility] 01-05-2022 10:00-0400 Respiratory rate 18 /min Leda Christensen PT Work Phone: [facility] 01-05-2022 10:00-0400 SaO2% (BldA) [Mass fraction] 99 % Leda Christensen PT Work Phone: [facility] 01-05-2022 10:00-0400 Systolic blood pressure 108 mm[Hg] Leda Christensen PT Work Phone: [facility] 01-05-2022 09:10-0400 Body temperature 97.9 [degF] Leda Christensen PT Work Phone: [facility] 01-03-2022 14:13-0400 Body temperature 97.39 [degF] Raquel Shelly FL[employer]OWER Work Phone: [facility] 01-03-2022 14:13-0400 Diastolic blood pressure 68 mm[Hg] Raquel Shelly FL[employer]OWER Work Phone: [facility] 01-03-2022 14:13-0400 Heart rate 76 /min Raquel Shelly FL[employer]OWER Work Phone: [facility] 01-03-2022 14:13-0400 Respiratory rate 18 /min Raquel Shelly FL[employer]OWER Work Phone: [facility] 01-03-2022 14:13-0400 SaO2% (BldA) [Mass fraction] 99 % Raquel Shelly [employer]OWER Work Phone: [facility] 01-03-2022 14:13-0400 Systolic blood pressure 118 mm[Hg] Raquel Shelly FL[employer]OWER Work Phone: [facility] 12-31-2021 02:30-0400 Body temperature 97.3 [degF] Leda Christensen PT Work Phone: [facility] 12-31-2021 02:30-0400 Diastolic blood pressure 50 mm[Hg] Leda Christensen PT Work Phone: [facility] 12-31-2021 02:30-0400 Heart rate 55 /min Leda Christensen PT Work Phone: [facility] 12-31-2021 02:30-0400 Respiratory rate 16 /min Leda Christensen PT Work Phone: [facility] 12-31-2021 02:30-0400 SaO2% (BldA) [Mass fraction] 99 % Leda Christensen PT Work Phone: [facility] 12-31-2021 02:30-0400 Systolic blood pressure 100 mm[Hg] Leda Christensen PT Work Phone: [facility] 12-28-2021 14:04-0400 Body temperature 98.2 [degF] Raquel Shelly FL[employer]OWER Work Phone: [facility] 12-28-2021 14:04-0400 Diastolic blood pressure 78 mm[Hg] Raquel Shelly FL[employer]OWER Work Phone: [facility] 12-28-2021 14:04-0400 Heart rate 78 /min Raquel Shelly FL[employer]OWER Work Phone: [facility] 12-28-2021 14:04-0400 Respiratory rate 18 /min Raquel Shelly FL[employer]OWER Work Phone: [facility] 12-28-2021 14:04-0400 SaO2% (BldA) [Mass fraction] 97 % Raquel Shelly [employer]OWER Work Phone: [facility] 12-28-2021 14:04-0400 Systolic blood pressure 134 mm[Hg] Raquel Shelly FL[employer]OWER Work Phone: [facility] 12-23-2021 10:35-0400 Body temperature 97.81 [degF] Raquel Shelly FL[employer]OWER Work Phone: [facility] 12-23-2021 10:35-0400 Diastolic blood pressure 70 mm[Hg] Raquel Shelly FL[employer]OWER Work Phone: [facility] 12-23-2021 10:35-0400 Heart rate 56 /min Raquel Shelly [employer] Work Phone: [facility] 12-23-2021 10:35-0400 Respiratory rate 18 /min Raquel Shelly FLIGHT FOLLOWER Work Phone: [facility] 12-23-2021 10:35-0400 SaO2% (BldA) [Mass fraction] 98 % Raquel Cobosion FLIGHT FOLLOWER Work Phone: [facility] 12-23-2021 10:35-0400 Systolic blood pressure 126 mm[Hg] Raquel Cobosion FLIGHT FOLLOWER Work Phone: [facility] 12-21-2021 10:30-0400 Body temperature 97.3 [degF] Leda Halderman-Pedersen PT Work Phone: [facility] 12-21-2021 10:30-0400 Diastolic blood pressure 60 mm[Hg] Leda Halderman-Pedersen PT Work Phone: [facility] 12-21-2021 10:30-0400 Heart rate 68 /min Leda Halderman-Pedersen PT Work Phone: [facility] 12-21-2021 10:30-0400 Respiratory rate 18 /min Leda Halderman-Pedersen PT Work Phone: [facility] 12-21-2021 10:30-0400 SaO2% (BldA) [Mass fraction] 99 % Leda Halderman-Pedersen PT Work Phone: [facility] 12-21-2021 10:30-0400 Systolic blood pressure 110 mm[Hg] Leda Halderman-Pedersen PT Work Phone: [facility] 12-17-2021 15:20-0400 Body temperature 97.9 [degF] Leda Halderman-Pedersen PT Work Phone: [facility] 12-17-2021 15:20-0400 Diastolic blood pressure 64 mm[Hg] Leda Halderman-Pedersen PT Work Phone: [facility] 12-17-2021 15:20-0400 Heart rate 73 /min Leda Halderman-Pedersen PT Work Phone: [facility] 12-17-2021 15:20-0400 Respiratory rate 18 /min Leda Halderman-Pedersen PT Work Phone: [facility] 12-17-2021 15:20-0400 SaO2% (BldA) [Mass fraction] 99 % Leda Fermin PT Work Phone: [facility] 12-17-2021 15:20-0400 Systolic blood pressure 112 mm[Hg] Leda Christensen PT Work Phone: [facility] 11-04-2021 09:46-0400 Body temperature 97.59 [degF] Ricky Bradley MD Work Phone: [facility] 11-04-2021 09:46-0400 Body weight 113.4 kg Ricky Bradley MD Work Phone: [facility] 11-04-2021 09:46-0400 Diastolic blood pressure 66 mm[Hg] Ricky Bradley MD Work Phone: [facility] 11-04-2021 09:46-0400 Heart rate 60 /min Ricky Bradley MD Work Phone: [facility] 11-04-2021 09:46-0400 Respiratory rate 16 /min Ricky Bradley MD Work Phone: [facility] 11-04-2021 09:46-0400 Systolic blood pressure 130 mm[Hg] Ricky Bradley MD Work Phone: [facility] 07-06-2021 12:24-0400 Diastolic blood pressure 76 mm[Hg] Mi Nurse Work Phone: [facility] 07-06-2021 12:24-0400 Heart rate 62 /min Mi Nurse Work Phone: [facility] 07-06-2021 12:24-0400 Systolic blood pressure 128 mm[Hg] Mi Nurse Work Phone: [facility] Encounters Encounter Date Encounter Type Care Provider Facility Start: 03-17-2023 Telephone encounter Herminia Begum RNdriver license reviewing officer Procedures Date Procedure Procedure Detail Performing Clinician [...] Detail Author Start: 12-27-2026 Urine microalbumin profile [facility] Immunizations Immunization Date Immunization Notes Care Provider Fa cili 02-14-2022 influenza, high dose seasonal, preservative-free Ricky Bradley MD Work Phone: [facility] Work Phone: 02-14-2022 influenza virus vacc ine, unspecified formulation Treatment Wstr Work Phone: [facility] 04-14-2021 COVID-19 vaccine, ag e 12+ yr (PFIZER-BIONTECH - PURPLE TOP) Mi Nurse Work Phone: [facility] Work Phone: 04-07-2021 influenza (aIIV4) vaccine, age 65+ yr, quadrivalent, PF (FLUAD QUADRIVALENT) Mi Nurse Work Phone: [facility] Work Phone: 06-02-2020 COVID-19 vaccine, ag e 12+ yr (PFIZER-BIONTECH - PURPLE TOP) Mi Nurse Work Phone: [facility] Work Phone: 05-12-2020 COVID-19 vaccine, ag e 12+ yr (PFIZER-BIONTECH - PURPLE TOP) Mi Nurse Work Phone: [facility] Work Phone: 02-27-2020 influenza, high dose seasonal, preservative-free Mi Nurse Work Phone: [facility] Work Phone: 02-18-2019 influenza, high dose seasonal, preservative-free Mi Nurse Work Phone: [facility] 01-15-2019 influenza, seasonal, injectable, preservative free Mi Nurse Work Phone: [facility] Work Phone: 03-02-2018 zoster vaccine recombinant Mi Nurse Work Phone: [facility] Work Phone: 02-19-2018 influenza, high dose seasonal, preservative-free Mi Nurse Work Phone: [facility] 01-01-2018 zoster vaccine recombinant Mi Nurse Work Phone: [facility] Work Phone: 12-15-2017 pneumococcal polysaccharide vaccine, 23 valent Ricky Bradley MD Work Phone: [facility] Work Phone: 12-27-2016 influenza, high dose seasonal, preservative-free Mi Nurse Work Phone: [facility] 12-27-2016 pneumococcal conjuga te vaccine, 13 valbruna Bradley MD Work Phone: [facility] Work Phone: 12-27-2016 tetanus and diphther ia toxoids, adsorbed, preservative free, for adult use (5 Lf of tetanus toxoid and 2 Lf of diphtheria toxoid) Va Nurse Work Phone: [facility] 12-27-2016 tetanus toxoid, redu magali diphtheria toxoid, and acellular pertussis vaccine, adsorbed Mi Nurse Work Phone: [facility] Work Phone: 02-11-2015 influenza, high dose seasonal, preservative-free Mi Nurse Work Phone: [facility] 01-15-2015 pneumococcal conjuga te vaccine, 13 valbruna Bradley MD Work Phone: [facility] Work Phone: 05-28-2014 pneumococcal conjuga te vaccine, 13 valent Mi Nurse Work Phone: [facility] 04-09-2014 influenza, seasonal, injectable Mi Nurse Work Phone: [facility] 02-27-2013 influenza virus vacc ine, unspecified formulation Mi Nurse Work Phone: [facility] 01-22-2011 influenza virus vacc ine, unspecified formulation Mi Nurse Work Phone: [facility] Work Phone: 04-23-2008 influenza virus vacc ine, unspecified formulation Mi Nurse Work Phone: [facility] Work Phone: 03-14-2007 influenza virus vacc ine, unspecified formulation Mi Nurse Work Phone: [facility] 10-03-2006 tetanus and diphther ia toxoids, adsorbed, preservative free, for adult use (2 Lf of tetanus toxoid and 2 Lf of diphtheria toxoid) Mi Nurse Work Phone: [facility] 02-20-2006 influenza virus vacc ine, unspecified formulation Mi Nurse Work Phone: [facility] Work Phone: 02-20-2006 pneumococcal polysaccharide vaccine, 23 valent Mi Nurse Work Phone: [facility] Work Phone: 02-24-2005 influenza virus vacc ine, unspecified formulation Va Nurse Work Phone: [facility] Work Phone: Payers Date Payer Category Payer Unknown MMO MMO MEDICARE SUPPLEMENT [id number] 2019-Present [phone] [address] [place] [address] Indemnity [id number] 2019 Unknown MMO MMO MEDICARE SUPPLEMENT [id number] 2019-Present [phone] [address] [place] [address] Indemnity [id number] 2019 Unknown [id number] 2004 Medicare 2004 Medicare MEDICARE MEDICAR E A AND B [id number] 2004-Present [phone] [place] [address] Medicare [id number] 2004 Medicare [id number] Medicare [id number] Social History Date Type Detail Facility [facility] Never smoked tobacco [facility] Work Phone: Start: 07-06-2021 End: 03-13-2023 Alcohol intake Current non-drinker of alcohol (finding) [facility] Start: 05-07-2021 End: 05-05-2022 History SDOH Alcohol Frequency 1 [facility] Start: 05-07-2021 End: 05-05-2022 History SDOH Social Connections Phone 5 [facility] Start: 05-07-2021 End: 05-05-2022 History SDOH Social Connections Get Together 4 [facility] Start: 05-07-2021 End: 05-05-2022 History SDOH Social Connections [facility] 3 [facility] Start: 1940 Sex Assigned At Not on file [facility] Start: 10-25-2021 End: 02-28-2022 Exposure to SARS-CoV-2 (event) Not sure [facility] Work Phone: Start: 05-05-2022 History SDOH Alcohol Std Drinks 0 [facility] Start: 05-05-2022 History SDOH Social Connections Get Together 2 [facility] Start: 05-05-2022 History SDOH Social Connections Membership 98 [facility] Start: 05-05-2022 End: 08-19-2022 [facility] Start: 05-05-2022 End: 08-19-2022 Social connection and isolation panel [facility] Do you belong to any clubs or organizations such as hinduism groups, unions, fraternal or athletic groups, or school groups? Patient refused [facility] Are you now , , , , never or living with a partner? [facility] How often to you hav e a drink containing alcohol? Never [facility] (I/We) worried wheth er (my/our) food would run out before (I/we) got money to buy more. DK or Refused [facility] In the past 12 month s, was there a time when you were not able to pay the mortgage or rent on time? No [facility] Do you belong to any clubs or organizations such as hinduism groups, unions, fraternal or athletic groups, or school groups? Yes [facility] Work Phone: Are you now , , , , never or living with a partner? [facility] Work Phone: Do you feel stress - tense, restless, nervous, or anxious, or unable to sleep at night because your mind is troubled all the time - these days [OSQ] Not at all [facility] Work Phone: Medical Equipment Procedure Code Equipment Code Equipment Origin al Text Equipment Identifier Dates [place] Ptfe 1.2 Cm X 10 Cm - [id number] Start: 01-18-2011 Clinical Notes 10-02-2018 to 03-17-2023 Telephone Encounter - Herminia Begum RN - 03/17/2023 4:36 PM Haley Jorge MD - 02/02/2023 2:25 PM Vandana Guerrero RT(R) - 01/16/2023 10:00 AM Yuniel Razo DO - 12/09/2022 3:54 PM EDT Note Date & Type Note Facility 03-17-2023 Miscellaneous Notes Attempted to reach the patient at the contact number that they provided [phone] (home) . 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 was left informing the patient/patient customer field representative they must have a responsible adult [...] Number to call with questions or concerns [phone] Number to call to cancel their procedure [phone] Herminia Begum RN documented in this encounter [facility] 02-02-2023 Note [facility] 02-02-2023 History of Present illness Narrative HCC Clinic New Patient Date of visit: 02/02/23 CC: HCC treated with SBRT HPI: This is a 82 year old with 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 ferrous sulfate [...] which included preparing to see the patient, jeek-by-gywf patient care, completing clinical documentation, obtaining and/or reviewing separately obtained history, performing a medically appropriate examination, counseling and educating the patient/family/caregiver, ordering medications, tests, or procedures, and communicating with other HCPs (not separately reported). Haley Hampton MD Associate Staff, Department of Gastroenterology and Hepatology [facility] [place] documented in this encounter [facility] 01-18-2023 Note [facility] 01-16-2023 Note [facility] 01-16-2023 History of Present illness Narrative [...] TIME: 10:47 AM documented in this encounter [facility] 01-06-2023 Miscellaneous Notes Referral form has been faxed to [facility] at number given below. Call to Ingris on Mobile and left vague message that referral form has been faxed to [facility]. Also called work number listed and left message as well notifying her with vague message. Adela Kaur Ma Please place referral, fax to [phone]. [facility] called and they have not received anything [...] Carol Robertson LPN Please call Ingris from [facility] for more information on this wound: location, etc. Jenny Aviles APRN.CNP Monique with [facility] calls to report that Ingris with [facility] called for appt for pt to be seen for yellow drainage from wound. Monique reports that pcp has to send order. Fax order to [facility]: [phone]. Akilah Barnett LPN documented in this encounter [facility] 12-29-2022 Miscellaneous Notes Michael spoke with daughter Ingris. Discussed patient currently receives 30 hour a week home care assistance from [place]. Patient also receives medical alert button courtesy of the [place]. Ingris notes that she is concerned regarding patient falls. Patient is adamant that he is not interested in going in to an AL. Ingris and Michael discussed that the [place] nurse that visits patient noted patient was [...] resources for patient care needs. Refer to [employer] for options for more home care or [...] house. Daughter reports she does have a rn delivery come to pt's home for five hours six days a week but it is getting to the point where someone needs to be there more. Daughter is asking if pcp has any recommendations on what to do. Daughter is aware that pcp is out of the office this week. Akilah Barnett LPN documented in this encounter [facility] 12-12-2022 Miscellaneous Notes Detailed VM left on [...] if these were prescribed by PCP or [facility]. Date of last office visit [...] Johnson, RN 22 documented in this encounter [facility] 12-09-2022 Note [facility] 12-09-2022 History of Present illness Narrative [...] He had lab work ordered at his president practicing urologist office. Protein electrophoresis of the urine demonstrated [...] in atrial fibrillation when home nurse from [place] picked up irregular heart beat on pulse ox check. No symptoms. Was taken to [facility] ED. he was advised to increase low-dose aspirin to 3 times daily--but I cannot find documentation of this after careful review of the [facility] electronic medical record. He is not on anticoagulation because of thrombocytopenia and cirrhosis. Back in ED yesterday at the request of the [place] nurse due to variable heart rate. Was told in ED in and out of a fib. Sensory neuropathy symptoms subjectively stable. Previously seen by neurology group in [place]. Was told nothing to be done for [...] - 4.00 k/uL 0.50 (L) 0.43 (L) Mccreary% % 5.6 6.2 Abs Mccreary <0.87 k/uL 0.26 0.24 Eosin% % 3.4 [...] Component Latest Ref Rng & Units 03/22/2022 [place] Free, Serum 3.3 - 19.4 mg/L 65.0 (H) Lambda Free, Serum 5.7 - 26.3 mg/L 37.1 (H) K/L Ratio, Serum 0.26 - 1.65 1.75 (H) IgG kappa on immunofixation of serum. Component Latest Ref Rng & Units 05/02/2022 PTH, Intact 15 - 65 pg/mL 69 (H) PATHOLOGY: Bone marrow biopsy done at [facility] 05/05/2022: Hypercellular bone marrow with trilineage hematopoiesis. [...] which included preparing to see the patient, ffwa-as-emcu patient care, completing clinical documentation, obtaining and/or reviewing separately obtained history, performing a medically appropriate examination, counseling and educating the patient/family/caregiver, ordering medications, tests, or procedures, communicating with other HCPs (not separately reported), and communicating results to the patient/family/caregiver. Yuniel Dahl DO documented in this encounter [facility] 11-29-2022 Miscellaneous Notes Noted. Brigida FERNANDES with [facility] calls to let provider know that patient HR was out side of their parameters today. HR 117 and then 44. At end of session it was 68. Asymptomatic. Dr. Charlton's office also notified. Patient missed his appointment with Dr. Charlton last week and will reschedule. Paradise Masterson RN documented in this encounter [facility] 11-04-2022 Note [facility] 11-03-2022 Miscellaneous Notes Wild PT calling from [facility] to report plan of care for patient and physical therapy will visit patient 2 times a week for 2 weeks and 1 time a week for 1 week. Physical therapy will work with patient on functional mobility. No call back needed. Radha Hernandez RN documented in this encounter [facility] 11-02-2022 Miscellaneous Notes Charity notified. PCP agrees and will follow Jenny Aviles APRN.KESHIA Charity MOE calling from [facility] to report plan of care for patient and SN will visit patient 1 times a week for five weeks. SN will work with patient on monitoring and education of new diagnosis of Afib. Charity needs verbal order for POC. After receives verbal order 485 form will be completed and faxed to provider at [phone]. Please call verbal order to Charity at [phone]. Paradise Masterson RN documented in this encounter [facility] 11-01-2022 Miscellaneous Notes Below response left on identified vm. Carol Robertson LPN I will follow HH. Deandra with [facility] HH calling. Patient discharging from [facility], diagnosis A-Fib, post-fall. Pt has orders for HH Nursing, PT and OT and asking if PCP willing to follow for these orders? They would like to start seeing patient tomorrow, on 11/02. Please call Deandra back with approval at [phone]. Teresa Woodward RN documented in this encounter [facility] 10-21-2022 Miscellaneous Notes Called and left a detailed voicemail notifying patient's daughter of providers message. Hospital phone number was left in case she had any questions. Ingrid Dacosta RN Discuss at upcoming appointment later this month and for face to face requirement. Ingris, pt's daughter called and would like to get an order for OT home health. Pt's mobility is decreasing. Daughter will check to see which Home Health Agency is covered by pt's insurance.. She will call back. Taylor Blevins LPN documented in this encounter [facility] 09-30-2022 Miscellaneous Notes Appeal letter for fern faxed to [employer] appeal department for review. documented in this encounter [facility] 09-21-2022 Miscellaneous Notes Spoke with patient: Yes [...] have family/friend present for procedure transport home:Patient/patient customer field representative was told that if they do [...] area. Any barriers to Patient learning: Patient/Patient Vegetable Loader responded appropriately on phone. Type of instruction given: Verbal by telephone contact. Shaneka Rudolph LPN documented in this encounter [facility] 09-20-2022 Note [facility] 09-20-2022 History of Present illness Narrative [...] Arnie Rodriguez PA-C documented in this encounter [facility] 09-19-2022 Miscellaneous Notes ROHINI Ingris/daughter, advised refill [...] Destiny Wadsworth Pss documented in this encounter [facility] 09-01-2022 Note [facility] 09-01-2022 Note [facility] 09-01-2022 History of Present illness Narrative SATYA MEDELLIN [id number] 09/01/2022 [facility] Department of Radiation Oncology [facility] RADIATION ONCOLOGY: COMPLETION NOTE DATE OF SIMULATION: 08/19/2022 DATES OF TREATMENT: 09/01/2022 to 09/01/2022 TREATMENT MACHINE: Par[employer]os[employer] TREATMENT AREA: Liver HCC DIAGNOSIS: 82 year [...] AM Electronically Signed cc: Ricky Bradley [address] [place] [address] Dr. Dahl, CC documented in this encounter [facility] 08-22-2022 Miscellaneous Notes Pt never seen in [...] patient. Dary Ledesma documented in this encounter [facility] 08-19-2022 Note [facility] 08-19-2022 Nurse Note Satya Medellin is [...] pt refused interventions/assistance. documented in this encounter [facility] 08-19-2022 History of Present illness Narrative Radiation Oncology Nursing Note PATIENT NAME: Satya Medellin PATIENT [facility] FACILITY/LOCATION: Main [place] PROCEDURE: Contrast Injection for CT Simulation Safety [...] NAME: Satya Medellin PATIENT August 19, 2022 [facility] FACILITY/LOCATION: [facility] READINESS TO LEARN Cognitive Ability: Alert and [...] need for social work, van service, and manager social responsibility. Was approved? Clinical questionnaires incomplete due to Patient declined to complete or answer questions with nurse Signed by: Yessenia Coy LPN documented in this encounter [facility] 08-19-2022 Note [facility] 08-19-2022 Note [facility] 08-19-2022 Note [facility] 08-19-2022 History of Present illness Narrative SATYA MEDELLIN. [id number] 08/19/2022 [facility] Department of Radiation Oncology [facility] RADIATION ONCOLOGY - Therapist Injection Note [...] home Therapist: chris documented in this encounter [facility] 08-19-2022 History of Present illness Narrative LACIESATYA [id number] 08/19/2022 [facility] Department of Radiation Oncology [facility] RADIATION ONCOLOGY SIMULATION NOTE DATE OF [...] M.D. :47 PM documented in this encounter [facility] 08-18-2022 Miscellaneous Notes RADIATION ONCOLOGY NURSING PRE-SIM [...] Ashley Jansen RN documented in this encounter [facility] 08-11-2022 Note [facility] 08-10-2022 Note [facility] 08-10-2022 Note [facility] 08-10-2022 Note [facility] 08-10-2022 History of Present illness Narrative [facility] received prescription(s) for Xifaxan from Dr. Haley Hampton's office. Benefits investigation was conducted, indicating that a prior authorization is required by patient's medicare part D insurance plan with [employer]. Encounter will be updated once prior authorization has been submitted by [facility]. Elizabeth Omer [facility] [address], [id number] [place] [address] [email or web address] [phone] Fern PETERS was initiated and pending review. Plan Name: [employer] med d Plan Agent/Simental: [employer] (simental [id number]) Case: [id number] Timeline: 24-72 hrs Elizabeth Omer ([employer]) documented in this encounter [facility] 08-10-2022 Note [facility] 08-10-2022 Instructions Haley Hampton MD - [...] Highly recommend this! documented in this encounter [facility] 08-10-2022 History of Present illness Narrative HCC [...] (FLONASE) 50 mcg/actuation nasal spray Use 1 Dumont in each nostril once daily. ferrous sulfate [...] cirrhosis (MELD-Na 8) complicated by HCC (within [place]), possible HE, PUD (bled 2019) here for [...] which included preparing to see the patient, egqh-jn-ivgw patient care, completing clinical documentation, obtaining and/or reviewing separately obtained history, performing a medically appropriate examination, counseling and educating the patient/family/caregiver, ordering medications, tests, or procedures, and communicating with other HCPs (not separately reported). Haley Hampton MD Associate Staff, Department of Gastroenterology and Hepatology [facility] [place] -- ASSESSMENT/PLAN: 1. 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 Yousif Bustillos MD Radiation Oncology Resident [id number] STAFF ADDENDUM: I have read and reviewed [...] care. Bubba Sykes MD cc: Ricky Bradley [address] [place] [address] Dr. Dahl, [facility] documented in this encounter [facility] 07-28-2022 Miscellaneous Notes Left voicemail for patient's daughter about liver tumor board results See [employer] message from today documented in this encounter [facility] 07-26-2022 Miscellaneous Notes Spoke to patient's daughter [...] directly about the MRI findings. Will send [employer] message if unable to reach her by this evening as I am off tomorrow 07/27 Kai Alvarado PA-C July 26, 2022 3:14 PM documented in this encounter [facility] 07-26-2022 Note [facility] 07-26-2022 Note [facility] 07-26-2022 Note [facility] 07-26-2022 Note [facility] 07-26-2022 History of Present illness Narrative [...] 2022 1:01 PM documented in this encounter [facility] 07-26-2022 History of Present illness Narrative [...] 2022 1:32 PM documented in this encounter [facility] 07-26-2022 Nurse Note Radiology Service Progress Note [...] 2022 11:20 AM documented in this encounter [facility] 07-13-2022 Miscellaneous Notes Radiology Service Pre Anesthesia [...] Yes, 9. Does the patient have a public transit trolley driver to take them home? Yes, 10. Spoke with patient: No, spoke with Thiago, and All questions were addressed and answered. Patient's daughter verbalized understanding. SIGNED BY: Keyona Dodson RN July 13, 2022 4:13 PM documented in this encounter [facility] documented as of this encounter (statuses as of 11/30/2022) [facility]2023 History of Past illness Narrative* Problem Noted Date Diagnosed Date Resolved Date Stasis ulcer 07/05/2022 11/04/2022 Obesity, Class II, BMI 35-39.9 04/22/2020 11/04/2022 Medicare annual wellness visit, subsequent 10/02/2018 02/18/2019 Encounter for long-term (cur rent) use of medications 09/07/2017 05/07/2021 Overview: Added automatically from request for surgery [id number] History of colonic polyps 09/07/2017 Overview: Added automatically from request for surgery [id number] Gastroesophageal reflux disease 09/07/2017 05/07/2021 Overview: Added automatically from request for surgery [id number] Acute pulmonary edema 01/19/20112010 Overview: 01/19/2011 cardiogenic [...] 01/12/2011 1 Overview: age 70, lives in [place], [place]. No DC needs. / Pre-op testing [...] of this encounter (statuses as of 12/10/2022) [facility] History of Past illness Narrative* Problem Noted Date Diagnosed Date Resolved Date Stasis ulcer 07/05/2022 11/04/2022 Obesity, Class II, BMI 35-39.9 04/22/2020 11/04/2022 Medicare annual wellness visit, subsequent 10/02/2018 02/18/2019 Encounter for long-term (cur rent) use of medications 09/07/2017 05/07/2021 Overview: Added automatically from request for surgery [id number] History of colonic polyps 09/07/2017 Overview: Added automatically from request for surgery [id number] Gastroesophageal reflux disease 09/07/2017 05/07/2021 Overview: Added automatically from request for surgery [id number] Acute pulmonary edema 01/19/20112010 Overview: 01/19/2011 cardiogenic [...] 01/12/2011 1 Overview: age 70, lives in [place], [place]. No DC needs. / Pre-op testing [...] of this encounter (statuses as of 12/12/2022) [facility] History of Past illness Narrative* Problem Noted Date Diagnosed Date Resolved Date Stasis ulcer 07/05/2022 11/04/2022 Obesity, Class II, BMI 35-39.9 04/22/2020 11/04/2022 Medicare annual wellness visit, subsequent 10/02/2018 02/18/2019 Encounter for long-term (cur rent) use of medications 09/07/2017 05/07/2021 Overview: Added automatically from request for surgery [id number] History of colonic polyps 09/07/2017 Overview: Added automatically from request for surgery [id number] Gastroesophageal reflux disease 09/07/2017 05/07/2021 Overview: Added automatically from request for surgery [id number] Acute pulmonary edema 01/19/20112010 Overview: 01/19/2011 cardiogenic [...] 01/12/2011 1 Overview: age 70, lives in [place], [place]. No DC needs. 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 No DC needs. 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 No DC needs. / Pre-op testing [...] of this encounter (statuses as of 12/26/2022) [facility] History of Past illness Narrative* Problem Noted Date Diagnosed Date Resolved Date Emiliesis ulcer 07/05/2022 11/04/2022 Obesity, Class II, BMI 35-39.9 04/22/2020 11/04/2022 Medicare annual wellness visit, subsequent 10/02/2018 02/18/2019 Encounter for long-term (cur rent) use of medications 09/07/2017 05/07/2021 Overview: Added automatically from request for surgery [id number] History of colonic polyps 09/07/2017 Overview: Added automatically from request for surgery [id number] Gastroesophageal reflux disease 09/07/2017 05/07/2021 Overview: Added automatically from request for surgery [id number] Acute pulmonary edema 01/19/20112010 Overview: 01/19/2011 cardiogenic [...] 01/12/2011 1 Overview: age 70, lives in [place], [place]. No DC needs. / Pre-op testing [...] of this encounter (statuses as of 12/28/2022) [facility] History of Past illness Narrative* Problem Noted Date Diagnosed Date Resolved Date Stasis ulcer 07/05/2022 11/04/2022 Obesity, Class II, BMI 35-39.9 04/22/2020 11/04/2022 Medicare annual wellness visit, subsequent 10/02/2018 02/18/2019 Encounter for long-term (cur rent) use of medications 09/07/2017 05/07/2021 Overview: Added automatically from request for surgery [id number] History of colonic polyps 09/07/2017 Overview: Added automatically from request for surgery [id number] Gastroesophageal reflux disease 09/07/2017 05/07/2021 Overview: Added automatically from request for surgery [id number] Acute pulmonary edema 01/19/20112010 Overview: 01/19/2011 cardiogenic [...] 01/12/2011 1 Overview: age 70, lives in [place], [place]. No DC needs. / Pre-op testing [...] of this encounter (statuses as of 01/02/2023) [facility] History of Past illness Narrative* Problem Noted Date Diagnosed Date Resolved Date Stasis ulcer 07/05/2022 11/04/2022 Obesity, Class II, BMI 35-39.9 04/22/2020 11/04/2022 Medicare annual wellness visit, subsequent 10/02/2018 02/18/2019 Encounter for long-term (cur rent) use of medications 09/07/2017 05/07/2021 Overview: Added automatically from request for surgery [id number] History of colonic polyps 09/07/2017 Overview: Added automatically from request for surgery [id number] Gastroesophageal reflux disease 09/07/2017 05/07/2021 Overview: Added automatically from request for surgery [id number] Acute pulmonary edema 01/19/20112010 Overview: 01/19/2011 cardiogenic [...] 01/12/2011 1 Overview: age 70, lives in [place], [place]. No DC needs. / Pre-op testing [...] of this encounter (statuses as of 01/06/2023) [facility] History of Past illness Narrative* Problem Noted Date Diagnosed Date Resolved Date Stasis ulcer 07/05/2022 11/04/2022 Obesity, Class II, BMI 35-39.9 04/22/2020 11/04/2022 Medicare annual wellness visit, subsequent 10/02/2018 02/18/2019 Encounter for long-term (cur rent) use of medications 09/07/2017 05/07/2021 Overview: Added automatically from request for surgery [id number] History of colonic polyps 09/07/2017 Overview: Added automatically from request for surgery [id number] Gastroesophageal reflux disease 09/07/2017 05/07/2021 Overview: Added automatically from request for surgery [id number] Acute pulmonary edema 01/19/20112010 Overview: 01/19/2011 cardiogenic [...] 01/12/2011 1 Overview: age 70, lives in [place]. No DC needs. / Pre-op testing [...] of this encounter (statuses as of 01/10/2023) [facility] History of Past illness Narrative* Problem Noted Date Diagnosed Date Resolved Date Stasis ulcer 07/05/2022 11/04/2022 Obesity, Class II, BMI 35-39.9 04/22/2020 11/04/2022 Medicare annual wellness visit, subsequent 10/02/2018 02/18/2019 Encounter for long-term (cur rent) use of medications 09/07/2017 05/07/2021 Overview: Added automatically from request for surgery [id number] History of colonic polyps 09/07/2017 Overview: Added automatically from request for surgery [id number] Gastroesophageal reflux disease 09/07/2017 05/07/2021 Overview: Added automatically from request for surgery [id number] Acute pulmonary edema 01/19/20112010 Overview: 01/19/2011 cardiogenic [...] 01/12/2011 1 Overview: age 70, lives in [place], [place]. No DC needs. / Pre-op testing [...] of this encounter (statuses as of 02/02/2023) [facility] History of Past illness Narrative* Problem Noted Date Diagnosed Date Resolved Date Stasis ulcer 07/05/2022 11/04/2022 Obesity, Class II, BMI 35-39.9 04/22/2020 11/04/2022 Medicare annual wellness visit, subsequent 10/02/2018 02/18/2019 Encounter for long-term (cur rent) use of medications 09/07/2017 05/07/2021 Overview: Added automatically from request for surgery [id number] History of colonic polyps 09/07/2017 Overview: Added automatically from request for surgery [id number] Gastroesophageal reflux disease 09/07/2017 05/07/2021 Overview: Added automatically from request for surgery [id number] Acute pulmonary edema 01/19/20112010 Overview: 01/19/2011 cardiogenic [...] 01/12/2011 1 Overview: age 70, lives in [place]. No DC needs. / Pre-op testing [...] of this encounter (statuses as of 02/19/2023) [facility] History of Past illness Narrative* Problem Noted Date Diagnosed Date Resolved Date Stasis ulcer 07/05/2022 11/04/2022 Obesity, Class II, BMI 35-39.9 04/22/2020 11/04/2022 Medicare annual wellness visit, subsequent 10/02/2018 02/18/2019 Encounter for long-term (cur rent) use of medications 09/07/2017 05/07/2021 Overview: Added automatically from request for surgery [id number] History of colonic polyps 09/07/2017 Overview: Added automatically from request for surgery [id number] Gastroesophageal reflux disease 09/07/2017 05/07/2021 Overview: Added automatically from request for surgery [id number] Acute pulmonary edema 01/19/20112010 Overview: 01/19/2011 cardiogenic [...] 01/12/2011 1 Overview: age 70, lives in [place], [place]. No DC needs. / Pre-op testing [...] of this encounter (statuses as of 03/17/2023) [facility] Instructions * Patient Instructions* Ricky Bradley MD - 07/04/2022 7:33 PM EDT STOP FUROSEMIDE WHILE ON TORSEMIDE X 5 DAYS. 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 ferrous sulfate [...] ointment. Ricky Bradley MD [facility] Miscellaneous Notes* Telephone Encounter - Nirav Jj Ma - 06/27/2022 3:17 PM EDT Faxed. * Telephone Encounter - Rosario Kasper LPN - 06/27/2022 10:55 AM EDT Monique from [facility] calling patient had called to schedule appt, they have no referral. Patient was in [facility] 06[facility]24/2022 [facility]. Fax number is [phone], pending order needs diagnosis. Please advise documented [facility]23 [facility] History of Present illness Narrative* Bubba [...] (FLONASE) 50 mcg/actuation nasal spray Use 1 Dumont in each nostril once daily. ferrous sulfate [...] Wt 108.2 kg (238 lb 9.6 oz) EsF494% BMI 37.37 kg/m Last 6 Encounter Wt [...] recommended. He will call to schedule with [facility]. Bubba Son MD [facility] Miscellaneous Notes* Telephone Encounter - Pacheco Valentin [...] you. Pacheco Valentin RN documented in [facility] History of Present illness Narrative* Yuniel [...] He had lab work ordered at his president practicing urologist office. Protein electrophoresis of the urine demonstrated [...] symptoms stable. Seen by neurology group in [place]. Was told nothing to be done for neuropathy. Uses wheeled walker. Better appetite. Gets meals on wheels. No abdominal pain or bloating. Underwent bone marrow biopsy at [facility]. ROS: Constitutional: Denies episodes of fever and [...] left. Overlying pitting.Stable. SKIN: No jaundice. NEUROLOGIC: claims associate II-XII are grossly intact. LABS: Component Latest [...] - 4.00 k/uL 0.50 (L) 0.43 (L) Mccreary% % 5.6 6.2 Abs Mccreary <0.87 k/uL 0.26 0.24 Eosin% % 3.4 [...] Component Latest Ref Rng & Units 03/22/2022 [place] Free, Serum 3.3 - 19.4 mg/L 65.0 (H) Lambda Free, Serum 5.7 - 26.3 mg/L 37.1 (H) K/L Ratio, Serum 0.26 - 1.65 1.75 (H) IgG kappa on immunofixation of serum. Component Latest Ref Rng & Units 05/02/2022 PTH, Intact 15 - 65 pg/mL 69 (H) PATHOLOGY: Bone marrow biopsy done at [facility] 05/05/2022: Hypercellular bone marrow with trilineage hematopoiesis. [...] be scheduled with GI for colonoscopy at [facility]. Could not be done here. Plan: -Follow-up [...] which included preparing to see the patient, [id number] patient care, completing clinical documentation, obtaining and/or reviewing separately obtained history, performing a medically appropriate examination, counseling and educating the pat ient/family/caregiver, communicating with other HCPs (not separately reported), independently interpreting results (not separately reported), and communicating results to the patient/family/caregiver. Yuniel Dahl DO [facility]23 Miscellaneous Notes* Telephone Encounter - Adriana Borjas LPN - 05/12/2022 10:03 AM EST Faxed office note and message of referral request to Dr Gaspar. fax# [phone] * Telephone Encounter - Ingrid Morales PA-C - 05/12/2022 8:17 AM EST Please fax referral request including my recent office note to Dr. Gaspar's office for EGD with possible banding of esophageal varices, and colonoscopy for anemia and history of colon polyps documented in this encounterU[facility]01[facility]23 Miscellaneous Notes* Telephone Encounter - Joan Kam - 05/09/2022 2:48 PM EST Pt's D2 canceled and added on as a new D10 * Telephone Encounter - Roxanna Campbell LPN - 05/09/2022 1:52 PM EST [...] another iron treatment today. documented in this encounterU[facility]01[facility]23 Miscellaneous Notes* Telephone Encounter - Gayla Lincoln RN - 05/09/2022 10:34 AM EST Addressed in separate phone encounter. Gayla Lincoln RN * Telephone Encounter - Roxanna Campbell LPN - 05/09/2022 9:17 AM EST See phone note from 05/09/2022. Roxanna Campbell LPN documented in this encounterU[facility]01-19-2023 [facility] Instructions* Patient Instructions* Ricky Bradley MD - 05/05/2022 3:42 PM EST DO NOT TAKE FUROSEMIDE WHILE TAKING TORSEMIDE. START TORSEMIDE TOMORROW. START ANTIBIOTIC TONIGHT. documented in this encounterU[facility]01[facility]23 History of Present illness Narrative* Ricky Bradley MD - 05/05/2022 3:31 PM EST This note was created using [employer]. Subjective Satya Medellin is a 82 year old male here with daughter. He developed an itchy rash of both legs one week ago and he was applying capsaicin and other creams with no improvement. His blood pressure continued to be low, so most medications were discontinued other than rhjincarui64 mg every other day. 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 ferrous sulfate [...] week. Ricky Bradley MD documented in this encounterU[facility]01-16-2023 Note[facility] History of Present illness Narrative* Ingrid [...] (FLONASE) 50 mcg/actuation nasal spray Use 1 Dumont in each nostril once daily. ferrous sulfate [...] entered by the nurse and reviewed by nm Nursing Notes: Priscila Rose RN 05/02/2022 1:19 [...] require banding (a [facility]), would recommend that patient have his upper and lower endoscopy performed by a manager wound who could perform banding at time of [...] mail. Ingrid Morales PA-C documented in this encounterU[facility]01[facility]-2023 Nurse Note* Priscila Rose RN - 05/02/2022 [...] 2018 Priscila Rose RN documented in this encounterU[facility]01[facility]-2023 Miscellaneous Notes* Telephone Encounter - Katelyn Ty [facility] - 05/01/2022 2:42 PM EST Unable to reach patient's daughter Ingris, who's number is in chart to call, just rings and no slat pickler or voicemail. We can try again at [...] Liver when able--patient would [facility]--open MRI. Referral to Dr. Dsouza for EGD/colonoscopy--possible varices. CT guided bone marrow biopsy at [facility] when able. Hold ASA 1 week prior. Referral to hepatology for cirrhosis. Schedule for 10 doses iron sucrose. CBC/CMP/Myeloma labs then OV after completes iron sucrose. documented in this encounterU[facility]01-07-2023 [facility] History of Present illness Narrative* Kai [...] cirrhosis. Patient was last seen by GI SMALLTALK DEVELOPER Sandrine Avila September 2020. Here at request [...] (FLONASE) 50 mcg/actuation nasal spray Use 1 Dumont in each nostril once daily. 3 Each [...] nausea, vomiting, or diarrhea : Not reviewed MANAGER WEB APPLICATION: Not reviewed PHYSICAL FINDINGS OF NOTE: General [...] Continue present medications. - Return to physician behavioral modification assistant in 1 week. Colonoscopy September 2017: [...] cont now (may need general anesthesia at [facility] vs lorazepam 1 hour before MRI, will [...] which included preparing to see the patient, [id number] patient care, completing clinical documentation, obtaining and/or reviewing separately obtained history, performing a medically appropriate examination, counseling and educating the pat ient/family/caregiver, ordering medications, tests, or procedures, communicating with other HCPs (not separately reported), and communicating results to the patient/family/caregiver. Kai Alvarado PA-C April 23, 2022 11:17 AM documented in this encounterUc [facility]01-06-2023 [facility]12[facility] History of Present illness Narrative* Mimi [...] 25, 2022 10:00 AM documented in this encounterU[facility]12-06-2022 [facility] History of Present illness Narrative* Yuniel [...] He had lab work ordered at his president practicing urologist office. Protein electrophoresis of the urine demonstrated [...] (FLONASE) 50 mcg/actuation nasal spray Use 1 Dumont in each nostril once daily. ferrous sulfate [...] left. Overlying pitting. SKIN: No jaundice. NEUROLOGIC: claims associate II-XII are grossly intact. He is not [...] which included preparing to see the patient, [id number] patient care, completing clinical documentation, obtaining and/or reviewing separately obtained history, performing a medically appropriate examination, counseling and educating the pat ient/family/caregiver, ordering medications, tests, or procedures, communicating with other HCPs (not separately reported), independently interpreting results (not separately reported), communicatingresults to the patient/family/caregiver, and care coordination (not separately reported). Yuniel Dahl DO documented in this encounterUc [facility] Hospital11-21-2022 Miscellaneous Notes* Telephone Encounter - Estelita Baig LPN - 03/07/2022 10:01 AM EST pcp reviewed the rehabilitation and sport therapy note pt was seen there for driving assessment. Pcp signed form. This has been faxed back to [facility] at [phone] documented in this encounterUc [facility] Hospital11-14-2022 NoteHNO ID: [id number] Author: Radha Barker OT/L Service: ? Author [...] Environment Patient Lives With: Self/Alone Assistance Available: Part-Time;[employer] (daughter involved living around the corner from patient and seeing him/checking in frequently) Home Type: Multi-Level Transportation: Travels as a passenger;SUV Patient Goals: to return to driving Intake Information: Prescription present Falls Interview: Two or more falls in the last year Relevant History Past Relevant Medical Conditions: Arthritis;Cerebral Vascular Accident;Falls;Hypertension;Depression;Neuropathy Highest Level of Education: Trade School Preferred Language: Tajik Right or Left Handed: Right 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) Recreation / Current Exercise: no current exercise Hobbies / Interests: reads devotionals and cookbooks; rather sedentary Home Environment Patient Lives With: Self/Alone Assistance Available: Part-Time;[employer] (daughter involved living around the corner from [...] History: 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 State: [place] License/Permit #: [id number] Expires: 04/20/24 Restrictions: corrective lenses; 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 [...] Marginal while significant contractures/tone in L hand 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: functional for R hand while decreased for [...] Pass Contrast Sensitivity: mini (more content not included)...[facility] 02-28-2022 History of Present illness Narrative* [...] Environment Patient Lives With: Self/Alone Assistance Available: Part-Time;[employer] Gatherer (daughter involved living around the corner from patient and seeing him/checking in frequently) Home Type: Multi-Level Transportation: Travels as a passenger;SUV Patient Goals: to return to driving Intake Information: Prescription present Falls Interview: Two or more falls in the last year Relevant History Past Relevant Medical Conditions: Arthritis;Cerebral Vascular Accident;Falls;Hypertension;Depression;Neuropathy Highest Level of Education: Trade School Preferred Language: Tajik Right or Left Handed: Right 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) Recreation / Current Exercise: no current exercise Hobbies / Interests: reads devotionals and cookbooks; rather sedentary Home Environment Patient Lives With: Self/Alone Assistance Available: Part-Time;[employer] Gatherer (daughter involved living around the corner from [...] History: 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 State: [place] License/Permit #: [id number] Expires: 04/20/24 Restrictions: corrective lenses; 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 [...] Marginal while significant contractures/tone in L hand 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: functional for R hand while decreased for [...] Recall: WFL @ 5/6 digits Visual Scanning/Attention: Warren Making Part B (sec): 319 sec 50th [...] nearly so, from the edge of the standing rock one clock hand at the two o'clock [...] Not Suggestive of Safe Driving Potential Gurvinder Auxiliary Powerplant Operator Simulator: Simple Brake Reaction Time: Average Distance: [...] Response to Education/Teach Back: States/Identifies TREATMENT: Evaluation Self-Intermediate Management: 1: refer to documentation for details [...] this report indicates the ability of the public transit trolley driver to operate a motor vehicle on [...] MEET THE VISUAL FIELD SCREENING REQUIREMENTS FOR [facility] FOR DRIVING, CLOCK DRAWING SCORE, PERFORMANCE ON VISUAL PERCEPTUAL SCREENING INCLUDING FOR RAW SCORE AND SLOWED VISUAL PROCESSING SPEED, DECREASED CONCENTRATION AND RECALL MEMORY, MARKED IMPAIRMENT ON ALTERNATING ATTENTION TASK. RECOMMENDATIONS: ADL/IADL Recommendations: ongoing assist for self care and home management as needed while aides currently coming in 4 days/week Driving Recommendations: REFRAIN FROM DRIVING WHILE PERMANENT CESSATION/PRISON FROM DRIVING INDICATED. THIS THERAPIST WILL PROVIDE PHYSICIAN WITH [facility] REPORTING INFORMATION SO THAT LICENSE SUSPENSION [...] (timed/untimed) 135 minutes Evaluation - Moderate Complexity (98472) Self Care / Home Management (42156): 1:1 time: 75 minutes (5 units: 68-82 mins) Total time: 135 minutes RONY Elise, CDRS, CDI Certified Auxiliary Powerplant Operator Sourcing Specialist [facility] Miscellaneous Notes* Telephone Encounter - Ama Masters [...] B/MMO SUPPLEMENT Radha Ziyad documented in this [facility]11-03-2022 Miscellaneous Notes* Telephone Encounter - Ingrid [...] seeing kidney doctor Dr Sera Carreno at [facility] yesterday. She states BP was [...] fax to our office. documented in this [facility]10-17-2022 Instructions* Patient Instructions* Ricky Bradley MD - 01/31/2022 2:53 PM EDT DISCONTINUE LISINOPRIL. [facility] History of Present illness Narrative* Ricky Bradlye MD - 01/31/2022 2:34 PM EDT This note was created using Link Triggerriter. Subjective Satya Medellin is a 81 year old male here with daughter. He fell again and was in the ER 12/08 forhead injury. He was scheduled with neurology. His hypertension was still well controlled on one half dose of lisinopril. He was scheduled to see his president practicing urologist in 2 weeks. 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 ferrous sulfate [...] ICD9: 781.2, ICD10: R26.9 - CONSULT TO ERP CONSULTANT 3. Stage 3a chronic kidney disease (HCC) - ICD9: 585.3, ICD10: N18.31 - eGFR: Stable - Discontinue LISINOPRIL. - BASIC METABOLIC PNL in 2 weeks. - Nephrology in 2 weeks. 4. Essential hypertension - ICD9: 401.9, ICD10: I10 - good control - See #3. Ricky Bradley MD [facility] Miscellaneous Notes* PT DISCHARGE - Leda Christensen [...] would be a maintenance situation. He has COLOR FINISHER from the [place] that are allowed to assist him with [...] summary for intervention/education details. documented [facility] Miscellaneous Notes* PT ROUTINE/REASSESSMENT/RECERT/CASE MGMT - Raquel Shelly, FLIGHT FOLLOWER - 01/24/2022 8:53 AM EDT SITUATION: private [...] summary for intervention/education details. documented in this encounter[facility]10-[facility] Miscellaneous Notes* HH PT ROUTINE/REASSESSMENT/RECERT/CASE MGMT - [...] summary for intervention/education details. documented in this [facility]10[facility] Miscellaneous Notes* Telephone Encounter - Ingrid Dacosta RN - 01/19/2022 3:02 PM EDT Called and left a voicemail for the Patient's daughter to call back and ask for a nurse to receive the providers message. Faxed orders, last OV note, labs, and x-rays to [facility] at fax # [phone]. Ingrid Dacosta RN * Telephone Encounter - [...] would want it to be sent to [facility]. Fax number is [phone]. Phone number is [phone]. Please review and advise, Paradise Masterson RN documented in this encounter[facility]10-[facility]-2022 Miscellaneous Notes* Telephone Encounter - Raquel Bravo PTA - 01/19/2022 2:35 PM EDT Patient reported he fell on Monday when ambulating outside of home. Denies injury and was able to complete PT today without concerns. Thanks documented in this encounter[facility]10-[facility]-2022 Miscellaneous Notes* Telephone Encounter - Nirav Jj Ma - 01/17/2022 1:03 PM EDT Krzysztofay given to Jacquelin. Nirav Jj Ma * Telephone Encounter - Jenny Aviles APRN.CNP - 01/17/2022 12:18 PM EDT Olu Aivles APRN.CNP * Telephone Encounter - Rosario Kasper LPN - 01/13/2022 1:04 PM EDT Jacquelin from [facility] Home Care PT calling she did her re-assessment and would like to continue visits 2 times weekly for 2 more weeks. She is asking for verbal order please. If have problem reaching her onwork phone can call her person phone number. Please advise documented in this [facility]09-29-2022 Miscellaneous Notes* PT ROUTINE/REASSESSMENT/RECERT/CASE MGMT - Jacquelin [...] summary for intervention/education details. documented in this encounter[facility]09[facility]27-[facility]22 Miscellaneous Notes* PT ROUTINE/REASSESSMENT/RECERT/CASE MGMT - Raquel Shelly, FLIGHT FOLLOWER - 01/11/2022 8:56 AM EDT SITUATION: only [...] summary for intervention/education details. documented in this encounter[facility]09[facility]22 Miscellaneous Notes* PT ROUTINE/REASSESSMENT/RECERT/CASE MGMT - Leda [...] summary for intervention/education details. documented in this encounter[facility]09-19-2022 Miscellaneous Notes* PT ROUTINE/REASSESSMENT/RECERT/CASE MGMT - Raquel [...] summary for intervention/education details. documented in this encounter[facility]09-16-2022 Miscellaneous Notes* PT ROUTINE/REASSESSMENT/RECERT/CASE MGMT - Leda [...] summary for intervention/education details. documented in this encounter[facility]09-13-2022 Miscellaneous Notes* PT ROUTINE/REASSESSMENT/RECERT/CASE MGMT - Raquel Bravo, FLIGHT FOLLOWER - 12/28/2021 2:00 PM EDT SITUATION: only [...] summary for intervention/education details. documented in this [facility]09-[facility]-2022 Miscellaneous Notes* PT ROUTINE/REASSESSMENT/RECERT/CASE MGMT - Raquel [...] summary for intervention/education details. documented in this encounter[facility]09-06-2022 Miscellaneous Notes* PT ROUTINE/REASSESSMENT/RECERT/CASE MGMT - Leda [...] Colon Polyp Thrombocytopenia CAD (Coronary Artery Disease), [place] Coronary Artery Adjustment Disorder With Depr essed [...] summary for intervention/education details. 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 Reviewed and explained homecare [...] summary for intervention/education details. documented in this encounterU[facility]08-29-2022 Miscellaneous Notes* Telephone Encounter - Krystal Johnson [...] Angel that patient would be notified from [facility] as referral is still active. Paradise Masterson RN * Telephone Encounter - Krystal Johnson RN - 12/08/2021 4:31 PM EDT Patient's daughter calling to let PCP know that patient fell today and landed on his back and hit the back of his head/neck on a door. He is @ [facility] ER and has had a CT scan. His main complaint is neckpain. She says they have been unable to start PT due to more information needed. Please see Home Care note in Epic from Jacinda Barrett LPN sent yesterday. Daughter is requesting call back when PT can be initiated. Krystal Johnson RN documented in this encounterU[facility]08-29-2022 Miscellaneous Notes* Telephone Encounter - Jacquelin Pavan - 12/13/2021 9:47 AM EDT Welcome Home Call: a. Date and Time: 9:48 AM 12/13/2021 b. Contact name/relationship: Satya jean-baptiste Have you been active with any Home Care company in the last 60 days(such as help with bathing, filling medications, checking your blood pressure) ? No. d. [facility] will be providing your care, [...] maintain a safe environment for our caregivers, [facility] requires anyanimals or weapons present in the home be located in a secured location. Our clinicians will call you the night before or the morning of the appointment. Their # may come up restricted but they'll leave a VM for you. In case you have any questions or concerns in the meantime, our # is [phone], option 1 Thank you for your time and have a great day. Jacquelin Browne documented in this encounterU[facility]08-23-2022 Miscellaneous Notes* Telephone Encounter - Jacinda Barrett [...] date noted. If you have any questions, [facility] Home Care Intake can be reached at [phone]. Thank you in advance. Jacinda Barrett LPN Central Admissions Intake Nurse [phone] documented in this encounterU[facility]08-04-2022 Miscellaneous Notes* Telephone Encounter - Carol Robertson [...] function okay and stable. documented in this encounterUc [facility]07-21-2022 Instructions* Patient Instructions* Ricky Bradley MD - 11/04/2021 10:13 AM EDT BLOOD TEST TODAY, NON FASTING. documented in this encounterUc [facility]07-21-2022 History of Present illness Narrative* Ricky Bradley MD - 11/04/2021 10:04 AM EDT This note was created using Golf121. Subjective Satya Medellin is a 81 year [...] Polyp Thrombocytopenia (HCC) Cad (Coronary Artery Disease), [place] Coronary Artery Adjustment Disorder With Depressed Mood [...] (FLONASE) 50 mcg/actuation nasal spray Use 1 Dumont in each nostril once daily. ferrous sulfate [...] Recheck. Ricky Bradley MD documented in this encounterU[facility]06-29-2022 Miscellaneous Notes* Telephone Encounter - Mary Pinon [...] back to schedule it. documented in this encounterU[facility]06-24-2022 Miscellaneous Notes* Telephone Encounter - Ingrid Dacosta RN - 10/08/2021 3:00 PM EDT Pt reports he was told by an CORN SHUCKER at the [place] to stop taking his HCTZ. I asked [...] tablet by mouth once daily. YOEL: No NITROGLYCERIN 0.4 MG SUBLINGUAL TABLET 25 [...] you. Ingrid Dacosta, RN documented in this encounterU[facility]03-22-2022 Miscellaneous Notes* Telephone Encounter - Jenny Aviles [...] PCP. Kaylie Radford LPN documented in this encounterU[facility]03-22-2022 History of Present illness Narrative* Kaylie Radford [...] PCP. 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 04/22/2020 11/04/2022 Medicare annual wellness visit, subsequent 10/02/2018 02/18/2019 Encounter for long-term (cur rent) use of medications 09/07/2017 05/07/2021 Overview: Added automatically from request for surgery [id number] History of colonic polyps 09/07/2017 Overview: Added automatically from request for surgery [id number] Gastroesophageal reflux disease 09/07/2017 05/07/2021 Overview: Added automatically from request for surgery [id number] Acute pulmonary edema 01/19/20112010 Overview: 01/19/2011 cardiogenic [...] No Cardiac Surgical prep: No SIGNATURE: Dede Mmis RN CHECKED BY: DATE of SERVICE: 01/12/2011 TIME of SERVICE: 2:23 PM Anemia of chronic disease 11/19/2010 Intestinal polyp 11/17/2010 10/03/2011 Overview: Distal ileum ulcerated polyp. 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) 04/22/2020 documented as of this encounter (statuses as of 02/19/2023) [facility] of Past illness Narrative* Problem Noted Date Resolved Date Medicare annual wellness visit, subsequent 10/0202/18/2019 Encounter for long-term (current) use of medicat ions 09/07/2017 05/07/2021 Overview: Added automatically from request for surgery [id number] History of colonic polyps 09/07/20172021 Overview: Added automatically from request for surgery [id number] Gastroesophageal reflux disease 09/07/2017 05/07/2021 Overview: Added automatically from request for surgery [id number] Acute pulmonary edema 01/19/2011 01/20/2011 Overview: 01/19/2011 [...] 01/12/2011 02/02/2011 Overview: age 70, lives in [place], [place]. No DC needs. / Pre-op testing [...] of this encounter (statuses as of 07/06/2021) [facility] of [facility] Narrative* Problem Noted Date Resolved Date Medicare annual wellness visit, subsequent 10/0202/18/2019 Encounter for long-term (current) use of medicat ions 09/07/2017 05/07/2021 Overview: Added automatically from request for surgery [id number] History of colonic polyps 09/07/20172021 Overview: Added automatically from request for surgery [id number] Gastroesophageal reflux disease 09/07/2017 05/07/2021 Overview: Added automatically from request for surgery [id number] Acute pulmonary edema 01/19/2011 01/20/2011 Overview: 01/19/2011 [...] 01/12/2011 02/02/2011 Overview: age 70, lives in [place], [place]. No DC needs. / Pre-op testing [...] of this encounter (statuses as of 07/06/2021) [facility] Narrative* Problem Noted Date Resolved Date Medicare annual wellness visit, subsequent 10/0202/18/2019 Encounter for long-term (current) use of medicat ions 09/07/2017 05/07/2021 Overview: Added automatically from request for surgery [id number] History of colonic polyps 09/07/20172021 Overview: Added automatically from request for surgery [id number] Gastroesophageal reflux disease 09/07/2017 05/07/2021 Overview: Added automatically from request for surgery [id number] Acute pulmonary edema 01/19/2011 01/20/2011 Overview: 01/19/2011 [...] 01/12/2011 02/02/2011 Overview: age 70, lives in [place], [place]. No DC needs. / Pre-op testing [...] of this encounter (statuses as of 10/09/2021) [facility] Narrative* Problem Noted Date Resolved Date Medicare annual wellness visit, subsequent 10/0202/18/2019 Encounter for long-term (current) use of medicat ions 09/07/2017 05/07/2021 Overview: Added automatically from request for surgery [id number] History of colonic polyps 09/07/20172021 Overview: Added automatically from request for surgery [id number] Gastroesophageal reflux disease 09/07/2017 05/07/2021 Overview: Added automatically from request for surgery [id number] Acute pulmonary edema 01/19/2011 01/20/2011 Overview: 01/19/2011 [...] 01/12/2011 02/02/2011 Overview: age 70, lives in [place], [place]. No DC needs. / Pre-op testing [...] of this encounter (statuses as of 10/13/2021) [facility] Narrative* Problem Noted Date Resolved Date Medicare annual wellness visit, subsequent 10/0202/18/2019 Encounter for long-term (current) use of medicat ions 09/07/2017 05/07/2021 Overview: Added automatically from request for surgery [id number] History of colonic polyps 09/07/20172021 Overview: Added automatically from request for surgery [id number] Gastroesophageal reflux disease 09/07/2017 05/07/2021 Overview: Added automatically from request for surgery [id number] Acute pulmonary edema 01/19/2011 01/20/2011 Overview: 01/19/2011 [...] 01/12/2011 02/02/2011 Overview: age 70, lives in [place], [place]. No DC needs. / Pre-op testing [...] of this encounter (statuses as of 11/04/2021) [facility] Narrative* Problem Noted Date Resolved Date Medicare annual wellness visit, subsequent 10/0202/18/2019 Encounter for long-term (current) use of medicat ions 09/07/2017 05/07/2021 Overview: Added automatically from request for surgery [id number] History of colonic polyps 09/07/20172021 Overview: Added automatically from request for surgery [id number] Gastroesophageal reflux disease 09/07/2017 05/07/2021 Overview: Added automatically from request for surgery [id number] Acute pulmonary edema 01/19/2011 01/20/2011 Overview: 01/19/2011 [...] 01/12/2011 02/02/2011 Overview: age 70, lives in [place], [place]. No DC needs. / Pre-op testing [...] of this encounter (statuses as of 11/18/2021) [facility] Narrative* Problem Noted Date Resolved Date Medicare annual wellness visit, subsequent 10/0202/18/2019 Encounter for long-term (current) use of medicat ions 09/07/2017 05/07/2021 Overview: Added automatically from request for surgery [id number] History of colonic polyps 09/07/20172021 Overview: Added automatically from request for surgery [id number] Gastroesophageal reflux disease 09/07/2017 05/07/2021 Overview: Added automatically from request for surgery [id number] Acute pulmonary edema 01/19/2011 01/20/2011 Overview: 01/19/2011 [...] 01/12/2011 02/02/2011 Overview: age 70, lives in [place], [place]. No DC needs. / Pre-op testing [...] of this encounter (statuses as of 12/13/2021) [facility] Narrative* Problem Noted Date Resolved Date Medicare annual wellness visit, subsequent 10/0202/18/2019 Encounter for long-term (current) use of medicat ions 09/07/2017 05/07/2021 Overview: Added automatically from request for surgery [id number] History of colonic polyps 09/07/20172021 Overview: Added automatically from request for surgery [id number] Gastroesophageal reflux disease 09/07/2017 05/07/2021 Overview: Added automatically from request for surgery [id number] Acute pulmonary edema 01/19/2011 01/20/2011 Overview: 01/19/2011 [...] 01/12/2011 02/02/2011 Overview: age 70, lives in [place], [place]. No DC needs. / Pre-op testing [...] of this encounter (statuses as of 12/13/2021) [facility] Narrative* Problem Noted Date Resolved Date Medicare annual wellness visit, subsequent 10/0202/18/2019 Encounter for long-term (current) use of medicat ions 09/07/2017 05/07/2021 Overview: Added automatically from request for surgery [id number] History of colonic polyps 09/07/20172021 Overview: Added automatically from request for surgery [id number] Gastroesophageal reflux disease 09/07/2017 05/07/2021 Overview: Added automatically from request for surgery [id number] Acute pulmonary edema 01/19/2011 01/20/2011 Overview: 01/19/2011 [...] 01/12/2011 02/02/2011 Overview: age 70, lives in [place], [place]. No DC needs. / Pre-op testing [...] of this encounter (statuses as of 12/15/2021) [facility] Narrative* Problem Noted Date Resolved Date Medicare annual wellness visit, subsequent 10/0202/18/2019 Encounter for long-term (current) use of medicat ions 09/07/2017 05/07/2021 Overview: Added automatically from request for surgery [id number] History of colonic polyps 09/07/20172021 Overview: Added automatically from request for surgery [id number] Gastroesophageal reflux disease 09/07/2017 05/07/2021 Overview: Added automatically from request for surgery [id number] Acute pulmonary edema 01/19/2011 01/20/2011 Overview: 01/19/2011 [...] 01/12/2011 02/02/2011 Overview: age 70, lives in [place], [place]. No DC needs. / Pre-op testing [...] of this encounter (statuses as of 12/15/2021) [facility] Narrative* Problem Noted Date Resolved Date Medicare annual wellness visit, subsequent 10/0202/18/2019 Encounter for long-term (current) use of medicat ions 09/07/2017 05/07/2021 Overview: Added automatically from request for surgery [id number] History of colonic polyps 09/07/20172021 Overview: Added automatically from request for surgery [id number] Gastroesophageal reflux disease 09/07/2017 05/07/2021 Overview: Added automatically from request for surgery [id number] Acute pulmonary edema 01/19/2011 01/20/2011 Overview: 01/19/2011 [...] 01/12/2011 02/02/2011 Overview: age 70, lives in [place], [place]. No DC needs. / Pre-op testing [...] of this encounter (statuses as of 12/17/2021) [facility] Narr[facility]* Problem Noted Date Resolved Date Medicare annual wellness visit, subsequent 10/0202/18/2019 Encounter for long-term (current) use of medicat ions 09/07/2017 05/07/2021 Overview: Added automatically from request for surgery [id number] History of colonic polyps 09/07/20172021 Overview: Added automatically from request for surgery [id number] Gastroesophageal reflux disease 09/07/2017 05/07/2021 Overview: Added automatically from request for surgery [id number] Acute pulmonary edema 01/19/2011 01/20/2011 Overview: 01/19/2011 [...] 01/12/2011 02/02/2011 Overview: age 70, lives in [place]. No DC needs. / Pre-op testing [...] of this encounter (statuses as of 12/21/2021) [facility] Narrative* Problem Noted Date Resolved Date Medicare annual wellness visit, subsequent 10/0202/18/2019 Encounter for long-term (current) use of medicat ions 09/07/2017 05/07/2021 Overview: Added automatically from request for surgery [id number] History of colonic polyps 09/07/20172021 Overview: Added automatically from request for surgery [id number] Gastroesophageal reflux disease 09/07/2017 05/07/2021 Overview: Added automatically from request for surgery [id number] Acute pulmonary edema 01/19/2011 01/20/2011 Overview: 01/19/2011 [...] 01/12/2011 02/02/2011 Overview: age 70, lives in [place], [place]. No DC needs. / Pre-op testing [...] of this encounter (statuses as of 12/23/2021) [facility] Narrative* Problem Noted Date Resolved Date Medicare annual wellness visit, subsequent 10/0202/18/2019 Encounter for long-term (current) use of medicat ions 09/07/2017 05/07/2021 Overview: Added automatically from request for surgery [id number] History of colonic polyps 09/07/20172021 Overview: Added automatically from request for surgery [id number] Gastroesophageal reflux disease 09/07/2017 05/07/2021 Overview: Added automatically from request for surgery [id number] Acute pulmonary edema 01/19/2011 01/20/2011 Overview: 01/19/2011 [...] 01/12/2011 02/02/2011 Overview: age 70, lives in [place], [place]. No DC needs. / Pre-op testing [...] of this encounter (statuses as of 12/28/2021) [facility] History of Past illness Narrative* Problem Noted Date Resolved Date Medicare annual wellness visit, subsequent 10/0202/18/2019 Encounter for long-term (current) use of medicat ions 09/07/2017 05/07/2021 Overview: Added automatically from request for surgery [id number] History of colonic polyps 09/07/20172021 Overview: Added automatically from request for surgery [id number] Gastroesophageal reflux disease 09/07/2017 05/07/2021 Overview: Added automatically from request for surgery [id number] Acute pulmonary edema 01/19/2011 01/20/2011 Overview: 01/19/2011 [...] 01/12/2011 02/02/2011 Overview: age 70, lives in [place], [place]. No DC needs. / Pre-op testing [...] of this encounter (statuses as of 12/31/2021) [facility] History of Past illness Narrative* Problem Noted Date Resolved Date Medicare annual wellness visit, subsequent 10/0202/18/2019 Encounter for long-term (current) use of medicat ions 09/07/2017 05/07/2021 Overview: Added automatically from request for surgery [id number] History of colonic polyps 09/07/20172021 Overview: Added automatically from request for surgery [id number] Gastroesophageal reflux disease 09/07/2017 05/07/2021 Overview: Added automatically from request for surgery [id number] Acute pulmonary edema 01/19/2011 01/20/2011 Overview: 01/19/2011 [...] 01/12/2011 02/02/2011 Overview: age 70, lives in [place], [place]. No DC needs. / Pre-op testing [...] of this encounter (statuses as of 01/03/2022) [facility] History of Past illness Narrative* Problem Noted Date Resolved Date Medicare annual wellness visit, subsequent 10/0202/18/2019 Encounter for long-term (current) use of medicat ions 09/07/2017 05/07/2021 Overview: Added automatically from request for surgery [id number] History of colonic polyps 09/07/20172021 Overview: Added automatically from request for surgery [id number] Gastroesophageal reflux disease 09/07/2017 05/07/2021 Overview: Added automatically from request for surgery [id number] Acute pulmonary edema 01/19/2011 01/20/2011 Overview: 01/19/2011 [...] 01/12/2011 02/02/2011 Overview: age 70, lives in [place], [place]. No DC needs. / Pre-op testing [...] of this encounter (statuses as of 01/06/2022) [facility] History of Past illness Narrative* Problem Noted Date Resolved Date Medicare annual wellness visit, subsequent 10/0202/18/2019 Encounter for long-term (current) use of medicat ions 09/07/2017 05/07/2021 Overview: Added automatically from request for surgery [id number] History of colonic polyps 09/07/20172021 Overview: Added automatically from request for surgery [id number] Gastroesophageal reflux disease 09/07/2017 05/07/2021 Overview: Added automatically from request for surgery [id number] Acute pulmonary edema 01/19/2011 01/20/2011 Overview: 01/19/2011 [...] 01/12/2011 02/02/2011 Overview: age 70, lives in [place], [place]. No DC needs. / Pre-op testing [...] of this encounter (statuses as of 01/11/2022) [facility] History of Past illness Narrative* Problem Noted Date Resolved Date Medicare annual wellness visit, subsequent 10/0202/18/2019 Encounter for long-term (current) use of medicat ions 09/07/2017 05/07/2021 Overview: Added automatically from request for surgery [id number] History of colonic polyps 09/07/20172021 Overview: Added automatically from request for surgery [id number] Gastroesophageal reflux disease 09/07/2017 05/07/2021 Overview: Added automatically from request for surgery [id number] Acute pulmonary edema 01/19/2011 01/20/2011 Overview: 01/19/2011 [...] 01/12/2011 02/02/2011 Overview: age 70, lives in [place], [place]. No DC needs. / Pre-op testing [...] of this encounter (statuses as of 01/16/2022) [facility] History of Past illness Narrative* Problem Noted Date Resolved Date Medicare annual wellness visit, subsequent 10/0202/18/2019 Encounter for long-term (current) use of medicat ions 09/07/2017 05/07/2021 Overview: Added automatically from request for surgery [id number] History of colonic polyps 09/07/20172021 Overview: Added automatically from request for surgery [id number] Gastroesophageal reflux disease 09/07/2017 05/07/2021 Overview: Added automatically from request for surgery [id number] Acute pulmonary edema 01/19/2011 01/20/2011 Overview: 01/19/2011 [...] 01/12/2011 02/02/2011 Overview: age 70, lives in [place], [place]. No DC needs. / Pre-op testing [...] of this encounter (statuses as of 01/17/2022) [facility] History of Past illness Narrative* Problem Noted Date Resolved Date Medicare annual wellness visit, subsequent 10/0202/18/2019 Encounter for long-term (current) use of medicat ions 09/07/2017 05/07/2021 Overview: Added automatically from request for surgery [id number] History of colonic polyps 09/07/20172021 Overview: Added automatically from request for surgery [id number] Gastroesophageal reflux disease 09/07/2017 05/07/2021 Overview: Added automatically from request for surgery [id number] Acute pulmonary edema 01/19/2011 01/20/2011 Overview: 01/19/2011 [...] 01/12/2011 02/02/2011 Overview: age 70, lives in [place], [place]. No DC needs. / Pre-op testing [...] of this encounter (statuses as of 01/18/2022) [facility] History of Past illness Narrative* Problem Noted Date Resolved Date Medicare annual wellness visit, subsequent 10/0202/18/2019 Encounter for long-term (current) use of medicat ions 09/07/2017 05/07/2021 Overview: Added automatically from request for surgery [id number] History of colonic polyps 09/07/20172021 Overview: Added automatically from request for surgery [id number] Gastroesophageal reflux disease 09/07/2017 05/07/2021 Overview: Added automatically from request for surgery [id number] Acute pulmonary edema 01/19/2011 01/20/2011 Overview: 01/19/2011 [...] 01/12/2011 02/02/2011 Overview: age 70, lives in [place], [place]. No DC needs. / Pre-op testing [...] of this encounter (statuses as of 01/19/2022) [facility] History of Past illness Narrative* Problem Noted Date Resolved Date Medicare annual wellness visit, subsequent 10/0202/18/2019 Encounter for long-term (current) use of medicat ions 09/07/2017 05/07/2021 Overview: Added automatically from request for surgery [id number] History of colonic polyps 09/07/20172021 Overview: Added automatically from request for surgery [id number] Gastroesophageal reflux disease 09/07/2017 05/07/2021 Overview: Added automatically from request for surgery [id number] Acute pulmonary edema 01/19/2011 01/20/2011 Overview: 01/19/2011 [...] 01/12/2011 02/02/2011 Overview: age 70, lives in [place], [place]. No DC needs. / Pre-op testing [...] of this encounter (statuses as of 01/21/2022) [facility] History of Past illness Narrative* Problem Noted Date Resolved Date Medicare annual wellness visit, subsequent 10/0202/18/2019 Encounter for long-term (current) use of medicat ions 09/07/2017 05/07/2021 Overview: Added automatically from request for surgery [id number] History of colonic polyps 09/07/20172021 Overview: Added automatically from request for surgery [id number] Gastroesophageal reflux disease 09/07/2017 05/07/2021 Overview: Added automatically from request for surgery [id number] Acute pulmonary edema 01/19/2011 01/20/2011 Overview: 01/19/2011 [...] 01/12/2011 02/02/2011 Overview: age 70, lives in [place], [place]. No DC needs. / Pre-op testing [...] of this encounter (statuses as of 01/24/2022) [facility] History of Past illness Narrative* Problem Noted Date Resolved Date Medicare annual wellness visit, subsequent 10/0202/18/2019 Encounter for long-term (current) use of medicat ions 09/07/2017 05/07/2021 Overview: Added automatically from request for surgery [id number] History of colonic polyps 09/07/20172021 Overview: Added automatically from request for surgery [id number] Gastroesophageal reflux disease 09/07/2017 05/07/2021 Overview: Added automatically from request for surgery [id number] Acute pulmonary edema 01/19/2011 01/20/2011 Overview: 01/19/2011 [...] 01/12/2011 02/02/2011 Overview: age 70, lives in [place]. No DC needs. / Pre-op testing [...] of this encounter (statuses as of 01/24/2022) [facility] History of Past illness Narrative* Problem Noted Date Resolved Date Medicare annual wellness visit, subsequent 10/0202/18/2019 Encounter for long-term (current) use of medicat ions 09/07/2017 05/07/2021 Overview: Added automatically from request for surgery [id number] History of colonic polyps 09/07/20172021 Overview: Added automatically from request for surgery [id number] Gastroesophageal reflux disease 09/07/2017 05/07/2021 Overview: Added automatically from request for surgery [id number] Acute pulmonary edema 01/19/2011 01/20/2011 Overview: 01/19/2011 [...] 01/12/2011 02/02/2011 Overview: age 70, lives in [place]. No DC needs. / Pre-op testing [...] of this encounter (statuses as of 01/26/2022) [facility] History of Past illness Narrative* Problem Noted Date Resolved Date Medicare annual wellness visit, subsequent 10/0202/18/2019 Encounter for long-term (current) use of medicat ions 09/07/2017 05/07/2021 Overview: Added automatically from request for surgery [id number] History of colonic polyps 09/07/20172021 Overview: Added automatically from request for surgery [id number] Gastroesophageal reflux disease 09/07/2017 05/07/2021 Overview: Added automatically from request for surgery [id number] Acute pulmonary edema 01/19/2011 01/20/2011 Overview: 01/19/2011 [...] 01/12/2011 02/02/2011 Overview: age 70, lives in [place]. No DC needs. / Pre-op testing [...] of this encounter (statuses as of 01/31/2022) [facility] History of Past illness Narrative* Problem Noted Date Resolved Date Medicare annual wellness visit, subsequent 10/0202/18/2019 Encounter for long-term (current) use of medicat ions 09/07/2017 05/07/2021 Overview: Added automatically from request for surgery [id number] History of colonic polyps 09/07/20172021 Overview: Added automatically from request for surgery [id number] Gastroesophageal reflux disease 09/07/2017 05/07/2021 Overview: Added automatically from request for surgery [id number] Acute pulmonary edema 01/19/2011 01/20/2011 Overview: 01/19/2011 [...] 01/12/2011 02/02/2011 Overview: age 70, lives in [place]. No DC needs. / Pre-op testing [...] of this encounter (statuses as of 02/17/2022) [facility] History of Past illness Narrative* Problem Noted Date Resolved Date Medicare annual wellness visit, subsequent 10/0202/18/2019 Encounter for long-term (current) use of medicat ions 09/07/2017 05/07/2021 Overview: Added automatically from request for surgery [id number] History of colonic polyps 09/07/20172021 Overview: Added automatically from request for surgery [id number] Gastroesophageal reflux disease 09/07/2017 05/07/2021 Overview: Added automatically from request for surgery [id number] Acute pulmonary edema 01/19/2011 01/20/2011 Overview: 01/19/2011 [...] 01/12/2011 02/02/2011 Overview: age 70, lives in [place]. No DC needs. / Pre-op testing [...] of this encounter (statuses as of 02/21/2022) [facility] History of Past illness Narrative* Problem Noted Date Resolved Date Medicare annual wellness visit, subsequent 10/0202/18/2019 Encounter for long-term (current) use of medicat ions 09/07/2017 05/07/2021 Overview: Added automatically from request for surgery [id number] History of colonic polyps 09/07/20172021 Overview: Added automatically from request for surgery [id number] Gastroesophageal reflux disease 09/07/2017 05/07/2021 Overview: Added automatically from request for surgery [id number] Acute pulmonary edema 01/19/2011 01/20/2011 Overview: 01/19/2011 [...] 01/12/2011 02/02/2011 Overview: age 70, lives in [place]. No DC needs. / Pre-op testing [...] of this encounter (statuses as of 03/04/2022) [facility] History of Past illness Narrative* Problem Noted Date Resolved Date Medicare annual wellness visit, subsequent 10/0202/18/2019 Encounter for long-term (current) use of medicat ions 09/07/2017 05/07/2021 Overview: Added automatically from request for surgery [id number] History of colonic polyps 09/07/20172021 Overview: Added automatically from request for surgery [id number] Gastroesophageal reflux disease 09/07/2017 05/07/2021 Overview: Added automatically from request for surgery [id number] Acute pulmonary edema 01/19/2011 01/20/2011 Overview: 01/19/2011 [...] 01/12/2011 02/02/2011 Overview: age 70, lives in [place], [place]. No DC needs. / Pre-op testing 01/12/2011 01/18/2011 Overview: Images from the original note were not included. [facility] PRE[facility] Surgeon: Zenno R. Marilyn, M.D. Informed Consent Completed: No [...] of this encounter (statuses as of 03/07/2022) [facility] History of Past illness Narrative* Problem Noted Date Resolved Date Medicare annual wellness visit, subsequent 10/0202/18/2019 Encounter for long-term (current) use of medicat ions 09/07/2017 05/07/2021 Overview: Added automatically from request for surgery [id number] History of colonic polyps 09/07/20172021 Overview: Added automatically from request for surgery [id number] Gastroesophageal reflux disease 09/07/2017 05/07/2021 Overview: Added automatically from request for surgery [id number] Acute pulmonary edema 01/19/2011 01/20/2011 Overview: 01/19/2011 [...] 01/12/2011 02/02/2011 Overview: age 70, lives in [place], [place]. No DC needs. / Pre-op testing [...] of this encounter (statuses as of 03/22/2022) [facility] History of Past illness Narrative* Problem Noted Date Resolved Date Medicare annual wellness visit, subsequent 10/0202/18/2019 Encounter for long-term (current) use of medicat ions 09/07/2017 05/07/2021 Overview: Added automatically from request for surgery [id number] History of colonic polyps 09/07/20172021 Overview: Added automatically from request for surgery [id number] Gastroesophageal reflux disease 09/07/2017 05/07/2021 Overview: Added automatically from request for surgery [id number] Acute pulmonary edema 01/19/2011 01/20/2011 Overview: 01/19/2011 [...] 01/12/2011 02/02/2011 Overview: age 70, lives in [place]. No DC needs. / Pre-op testing [...] of this encounter (statuses as of 04/23/2022) [facility] History of Past illness Narrative* Problem Noted Date Resolved Date Medicare annual wellness visit, subsequent 10/0202/18/2019 Encounter for long-term (current) use of medicat ions 09/07/2017 05/07/2021 Overview: Added automatically from request for surgery [id number] History of colonic polyps 09/07/20172021 Overview: Added automatically from request for surgery [id number] Gastroesophageal reflux disease 09/07/2017 05/07/2021 Overview: Added automatically from request for surgery [id number] Acute pulmonary edema 01/19/2011 01/20/2011 Overview: 01/19/2011 [...] 01/12/2011 02/02/2011 Overview: age 70, lives in [place]. No DC needs. / Pre-op testing [...] of this encounter (statuses as of 05/03/2022) [facility] of Past illness Narrative* Problem Noted Date Resolved Date Medicare annual wellness visit, subsequent 10/0202/18/2019 Encounter for long-term (current) use of medicat ions 09/07/2017 05/07/2021 Overview: Added automatically from request for surgery [id number] History of colonic polyps 09/07/20172021 Overview: Added automatically from request for surgery [id number] Gastroesophageal reflux disease 09/07/2017 05/07/2021 Overview: Added automatically from request for surgery [id number] Acute pulmonary edema 01/19/2011 01/20/2011 Overview: 01/19/2011 [...] 01/12/2011 02/02/2011 Overview: age 70, lives in [place]. No DC needs. / Pre-op testing [...] of this encounter (statuses as of 05/05/2022) [facility] of Past illness Narrative* Problem Noted Date Resolved Date Medicare annual wellness visit, subsequent 10/0202/18/2019 Encounter for long-term (current) use of medicat ions 09/07/2017 05/07/2021 Overview: Added automatically from request for surgery [id number] History of colonic polyps 09/07/20172021 Overview: Added automatically from request for surgery [id number] Gastroesophageal reflux disease 09/07/2017 05/07/2021 Overview: Added automatically from request for surgery [id number] Acute pulmonary edema 01/19/2011 01/20/2011 Overview: 01/19/2011 [...] 01/12/2011 02/02/2011 Overview: age 70, lives in [place]. No DC needs. / Pre-op testing [...] of this encounter (statuses as of 05/06/2022) [facility] Past [facility] Narrative* Problem Noted Date Resolved Date Medicare annual wellness visit, subsequent 10/0202/18/2019 Encounter for long-term (current) use of medicat ions 09/07/2017 05/07/2021 Overview: Added automatically from request for surgery [id number] History of colonic polyps 09/07/20172021 Overview: Added automatically from request for surgery [id number] Gastroesophageal reflux disease 09/07/2017 05/07/2021 Overview: Added automatically from request for surgery [id number] Acute pulmonary edema 01/19/2011 01/20/2011 Overview: 01/19/2011 [...] 01/12/2011 02/02/2011 Overview: age 70, lives in [place]. No DC needs. / Pre-op testing [...] of this encounter (statuses as of 05/09/2022) [facility] Past [facility] Narrative* Problem Noted Date Resolved Date Medicare annual wellness visit, subsequent 10/0202/18/2019 Encounter for long-term (current) use of medicat ions 09/07/2017 05/07/2021 Overview: Added automatically from request for surgery [id number] History of colonic polyps 09/07/20172021 Overview: Added automatically from request for surgery [id number] Gastroesophageal reflux disease 09/07/2017 05/07/2021 Overview: Added automatically from request for surgery [id number] Acute pulmonary edema 01/19/2011 01/20/2011 Overview: 01/19/2011 [...] 01/12/2011 02/02/2011 Overview: age 70, lives in [place]. No DC needs. / Pre-op testing [...] of this encounter (statuses as of 05/09/2022) [facility] Narrative* Problem Noted Date Resolved Date Medicare annual wellness visit, subsequent 10/0202/18/2019 Encounter for long-term (current) use of medicat ions 09/07/2017 05/07/2021 Overview: Added automatically from request for surgery [id number] History of colonic polyps 09/07/20172021 Overview: Added automatically from request for surgery [id number] Gastroesophageal reflux disease 09/07/2017 05/07/2021 Overview: Added automatically from request for surgery [id number] Acute pulmonary edema 01/19/2011 01/20/2011 Overview: 01/19/2011 [...] 01/12/2011 02/02/2011 Overview: age 70, lives in [place]. No DC needs. / Pre-op testing [...] of this encounter (statuses as of 05/11/2022) [facility] Narrative* Problem Noted Date Resolved Date Medicare annual wellness visit, subsequent 10/0202/18/2019 Encounter for long-term (current) use of medicat ions 09/07/2017 05/07/2021 Overview: Added automatically from request for surgery [id number] History of colonic polyps 09/07/20172021 Overview: Added automatically from request for surgery [id number] Gastroesophageal reflux disease 09/07/2017 05/07/2021 Overview: Added automatically from request for surgery [id number] Acute pulmonary edema 01/19/2011 01/20/2011 Overview: 01/19/2011 [...] 01/12/2011 02/02/2011 Overview: age 70, lives in [place]. No DC needs. / Pre-op testing [...] of this encounter (statuses as of 05/12/2022) [facility] Narrative* Problem Noted Date Resolved Date Medicare annual wellness visit, subsequent 10/0202/18/2019 Encounter for long-term (current) use of medicat ions 09/07/2017 05/07/2021 Overview: Added automatically from request for surgery [id number] History of colonic polyps 09/07/20172021 Overview: Added automatically from request for surgery [id number] Gastroesophageal reflux disease 09/07/2017 05/07/2021 Overview: Added automatically from request for surgery [id number] Acute pulmonary edema 01/19/2011 01/20/2011 Overview: 01/19/2011 [...] 01/12/2011 02/02/2011 Overview: age 70, lives in [place]. No DC needs. / Pre-op testing [...] of this encounter (statuses as of 05/13/2022) [facility] Narrative* Problem Noted Date Resolved Date Medicare annual wellness visit, subsequent 10/0202/18/2019 Encounter for long-term (current) use of medicat ions 09/07/2017 05/07/2021 Overview: Added automatically from request for surgery [id number] History of colonic polyps 09/07/20172021 Overview: Added automatically from request for surgery [id number] Gastroesophageal reflux disease 09/07/2017 05/07/2021 Overview: Added automatically from request for surgery [id number] Acute pulmonary edema 01/19/2011 01/20/2011 Overview: 01/19/2011 [...] 01/12/2011 02/02/2011 Overview: age 70, lives in [place]. No DC needs. / Pre-op testing [...] of this encounter (statuses as of 05/15/2022) [facility] Narrative* Problem Noted Date Resolved Date Medicare annual wellness visit, subsequent 10/0202/18/2019 Encounter for long-term (current) use of medicat ions 09/07/2017 05/07/2021 Overview: Added automatically from request for surgery [id number] History of colonic polyps 09/07/20172021 Overview: Added automatically from request for surgery [id number] Gastroesophageal reflux disease 09/07/2017 05/07/2021 Overview: Added automatically from request for surgery [id number] Acute pulmonary edema 01/19/2011 01/20/2011 Overview: 01/19/2011 [...] 01/12/2011 02/02/2011 Overview: age 70, lives in [place]. No DC needs. / Pre-op testing [...] of this encounter (statuses as of 05/17/2022) [facility] Narrative* Problem Noted Date Resolved Date Medicare annual wellness visit, subsequent 10/0202/18/2019 Encounter for long-term (current) use of medicat ions 09/07/2017 05/07/2021 Overview: Added automatically from request for surgery [id number] History of colonic polyps 09/07/20172021 Overview: Added automatically from request for surgery [id number] Gastroesophageal reflux disease 09/07/2017 05/07/2021 Overview: Added automatically from request for surgery [id number] Acute pulmonary edema 01/19/2011 01/20/2011 Overview: 01/19/2011 [...] 01/12/2011 02/02/2011 Overview: age 70, lives in [place]. No DC needs. / Pre-op testing [...] of this encounter (statuses as of 05/18/2022) [facility] Narrative* Problem Noted Date Resolved Date Medicare annual wellness visit, subsequent 10/0202/18/2019 Encounter for long-term (current) use of medicat ions 09/07/2017 05/07/2021 Overview: Added automatically from request for surgery [id number] History of colonic polyps 09/07/20172021 Overview: Added automatically from request for surgery [id number] Gastroesophageal reflux disease 09/07/2017 05/07/2021 Overview: Added automatically from request for surgery [id number] Acute pulmonary edema 01/19/2011 01/20/2011 Overview: 01/19/2011 [...] 01/12/2011 02/02/2011 Overview: age 70, lives in [place]. No DC needs. / Pre-op testing [...] of this encounter (statuses as of 05/20/2022) [facility] Narrative* Problem Noted Date Resolved Date Medicare annual wellness visit, subsequent 10/0202/18/2019 Encounter for long-term (current) use of medicat ions 09/07/2017 05/07/2021 Overview: Added automatically from request for surgery [id number] History of colonic polyps 09/07/20172021 Overview: Added automatically from request for surgery [id number] Gastroesophageal reflux disease 09/07/2017 05/07/2021 Overview: Added automatically from request for surgery [id number] Acute pulmonary edema 01/19/2011 01/20/2011 Overview: 01/19/2011 [...] 01/12/2011 02/02/2011 Overview: age 70, lives in [place], [place]. No DC needs. / Pre-op testing [...] of this encounter (statuses as of 05/25/2022) [facility] History of Past illness Narrative* Problem Noted Date Resolved Date Medicare annual wellness visit, subsequent 10/0202/18/2019 Encounter for long-term (current) use of medicat ions 09/07/2017 05/07/2021 Overview: Added automatically from request for surgery [id number] History of colonic polyps 09/07/20172021 Overview: Added automatically from request for surgery [id number] Gastroesophageal reflux disease 09/07/2017 05/07/2021 Overview: Added automatically from request for surgery [id number] Acute pulmonary edema 01/19/2011 01/20/2011 Overview: 01/19/2011 [...] 01/12/2011 02/02/2011 Overview: age 70, lives in [place], [place]. No DC needs. / Pre-op testing [...] of this encounter (statuses as of 05/27/2022) [facility] History of Past illness Narrative* Problem Noted Date Resolved Date Medicare annual wellness visit, subsequent 10/0202/18/2019 Encounter for long-term (current) use of medicat ions 09/07/2017 05/07/2021 Overview: Added automatically from request for surgery [id number] History of colonic polyps 09/07/20172021 Overview: Added automatically from request for surgery [id number] Gastroesophageal reflux disease 09/07/2017 05/07/2021 Overview: Added automatically from request for surgery [id number] Acute pulmonary edema 01/19/2011 01/20/2011 Overview: 01/19/2011 [...] 01/12/2011 02/02/2011 Overview: age 70, lives in [place], [place]. No DC needs. / Pre-op testing [...] of this encounter (statuses as of 05/31/2022) [facility] History of Past illness Narrative* Problem Noted Date Resolved Date Medicare annual wellness visit, subsequent 10/0202/18/2019 Encounter for long-term (current) use of medicat ions 09/07/2017 05/07/2021 Overview: Added automatically from request for surgery [id number] History of colonic polyps 09/07/20172021 Overview: Added automatically from request for surgery [id number] Gastroesophageal reflux disease 09/07/2017 05/07/2021 Overview: Added automatically from request for surgery [id number] Acute pulmonary edema 01/19/2011 01/20/2011 Overview: 01/19/2011 [...] 01/12/2011 02/02/2011 Overview: age 70, lives in [place], [place]. No DC needs. / Pre-op testing [...] of this encounter (statuses as of 06/02/2022) [facility] of Past illness Narrative* Problem Noted Date Resolved Date Medicare annual wellness visit, subsequent 10/0202/18/2019 Encounter for long-term (current) use of medicat ions 09/07/2017 05/07/2021 Overview: Added automatically from request for surgery [id number] History of colonic polyps 09/07/20172021 Overview: Added automatically from request for surgery [id number] Gastroesophageal reflux disease 09/07/2017 05/07/2021 Overview: Added automatically from request for surgery [id number] Acute pulmonary edema 01/19/2011 01/20/2011 Overview: 01/19/2011 [...] 01/12/2011 02/02/2011 Overview: age 70, lives in [place], [place]. No DC needs. / Pre-op testing [...] of this encounter (statuses as of 06/10/2022) [facility] History of Past illness Narrative* Problem Noted Date Resolved Date Medicare annual wellness visit, subsequent 10/0202/18/2019 Encounter for long-term (current) use of medicat ions 09/07/2017 05/07/2021 Overview: Added automatically from request for surgery [id number] History of colonic polyps 09/07/20172021 Overview: Added automatically from request for surgery [id number] Gastroesophageal reflux disease 09/07/2017 05/07/2021 Overview: Added automatically from request for surgery [id number] Acute pulmonary edema 01/19/2011 01/20/2011 Overview: 01/19/2011 [...] 01/12/2011 02/02/2011 Overview: age 70, lives in [place]. No DC needs. / Pre-op testing [...] of this encounter (statuses as of 06/10/2022) [facility] of Past illness Narrative* Problem Noted Date Resolved Date Medicare annual wellness visit, subsequent 10/0202/18/2019 Encounter for long-term (current) use of medicat ions 09/07/2017 05/07/2021 Overview: Added automatically from request for surgery [id number] History of colonic polyps 09/07/20172021 Overview: Added automatically from request for surgery [id number] Gastroesophageal reflux disease 09/07/2017 05/07/2021 Overview: Added automatically from request for surgery [id number] Acute pulmonary edema 01/19/2011 01/20/2011 Overview: 01/19/2011 [...] 01/12/2011 02/02/2011 Overview: age 70, lives in [place]. No DC needs. / Pre-op testing [...] of this encounter (statuses as of 06/16/2022) [facility] History of Past illness Narrative* Problem Noted Date Resolved Date Medicare annual wellness visit, subsequent 10/0202/18/2019 Encounter for long-term (current) use of medicat ions 09/07/2017 05/07/2021 Overview: Added automatically from request for surgery [id number] History of colonic polyps 09/07/20172021 Overview: Added automatically from request for surgery [id number] Gastroesophageal reflux disease 09/07/2017 05/07/2021 Overview: Added automatically from request for surgery [id number] Acute pulmonary edema 01/19/2011 01/20/2011 Overview: 01/19/2011 [...] 01/12/2011 02/02/2011 Overview: age 70, lives in [place]. No DC needs. / Pre-op testing [...] of this encounter (statuses as of 06/24/2022) [facility] of Past illness Narrative* Problem Noted Date Resolved Date Medicare annual wellness visit, subsequent 10/0202/18/2019 Encounter for long-term (current) use of medicat ions 09/07/2017 05/07/2021 Overview: Added automatically from request for surgery [id number] History of colonic polyps 09/07/20172021 Overview: Added automatically from request for surgery [id number] Gastroesophageal reflux disease 09/07/2017 05/07/2021 Overview: Added automatically from request for surgery [id number] Acute pulmonary edema 01/19/2011 01/20/2011 Overview: 01/19/2011 [...] 01/12/2011 02/02/2011 Overview: age 70, lives in [place]. No DC needs. / Pre-op testing [...] of this encounter (statuses as of 06/27/2022) [facility] History of Past illness Narrative* Problem Noted Date Resolved Date Medicare annual wellness visit, subsequent 10/0202/18/2019 Encounter for long-term (current) use of medicat ions 09/07/2017 05/07/2021 Overview: Added automatically from request for surgery [id number] History of colonic polyps 09/07/20172021 Overview: Added automatically from request for surgery [id number] Gastroesophageal reflux disease 09/07/2017 05/07/2021 Overview: Added automatically from request for surgery [id number] Acute pulmonary edema 01/19/2011 01/20/2011 Overview: 01/19/2011 [...] 01/12/2011 02/02/2011 Overview: age 70, lives in [place]. No DC needs. / Pre-op testing [...] of this encounter (statuses as of 07/05/2022) [facility] History of Past illness Narrative* Problem Noted Date Resolved Date Medicare annual wellness visit, subsequent 10/0202/18/2019 Encounter for long-term (current) use of medicat ions 09/07/2017 05/07/2021 Overview: Added automatically from request for surgery [id number] History of colonic polyps 09/07/20172021 Overview: Added automatically from request for surgery [id number] Gastroesophageal reflux disease 09/07/2017 05/07/2021 Overview: Added automatically from request for surgery [id number] Acute pulmonary edema 01/19/2011 01/20/2011 Overview: 01/19/2011 [...] 01/12/2011 02/02/2011 Overview: age 70, lives in [place]. No DC needs. / Pre-op testing [...] of this encounter (statuses as of 07/13/2022) [facility] History of Past illness Narrative* Problem Noted Date Resolved Date Medicare annual wellness visit, subsequent 10/0202/18/2019 Encounter for long-term (current) use of medicat ions 09/07/2017 05/07/2021 Overview: Added automatically from request for surgery [id number] History of colonic polyps 09/07/20172021 Overview: Added automatically from request for surgery [id number] Gastroesophageal reflux disease 09/07/2017 05/07/2021 Overview: Added automatically from request for surgery [id number] Acute pulmonary edema 01/19/2011 01/20/2011 Overview: 01/19/2011 [...] 01/12/2011 02/02/2011 Overview: age 70, lives in [place]. No DC needs. / Pre-op testing [...] of this encounter (statuses as of 07/27/2022) [facility] History of Past illness Narrative* Problem Noted Date Resolved Date Medicare annual wellness visit, subsequent 10/0202/18/2019 Encounter for long-term (current) use of medicat ions 09/07/2017 05/07/2021 Overview: Added automatically from request for surgery [id number] History of colonic polyps 09/07/20172021 Overview: Added automatically from request for surgery [id number] Gastroesophageal reflux disease 09/07/2017 05/07/2021 Overview: Added automatically from request for surgery [id number] Acute pulmonary edema 01/19/2011 01/20/2011 Overview: 01/19/2011 [...] 01/12/2011 02/02/2011 Overview: age 70, lives in [place]. No DC needs. / Pre-op testing [...] of this encounter (statuses as of 07/27/2022) [facility] History of Past illness Narrative* Problem Noted Date Resolved Date Medicare annual wellness visit, subsequent 10/0202/18/2019 Encounter for long-term (current) use of medicat ions 09/07/2017 05/07/2021 Overview: Added automatically from request for surgery [id number] History of colonic polyps 09/07/20172021 Overview: Added automatically from request for surgery [id number] Gastroesophageal reflux disease 09/07/2017 05/07/2021 Overview: Added automatically from request for surgery [id number] Acute pulmonary edema 01/19/2011 01/20/2011 Overview: 01/19/2011 [...] 01/12/2011 02/02/2011 Overview: age 70, lives in [place]. No DC needs. / Pre-op testing [...] of this encounter (statuses as of 07/27/2022) [facility] of Past illness Narrative* Problem Noted Date Resolved Date Medicare annual wellness visit, subsequent 10/0202/18/2019 Encounter for long-term (current) use of medicat ions 09/07/2017 05/07/2021 Overview: Added automatically from request for surgery [id number] History of colonic polyps 09/07/20172021 Overview: Added automatically from request for surgery [id number] Gastroesophageal reflux disease 09/07/2017 05/07/2021 Overview: Added automatically from request for surgery [id number] Acute pulmonary edema 01/19/2011 01/20/2011 Overview: 01/19/2011 [...] 01/12/2011 02/02/2011 Overview: age 70, lives in [place]. No DC needs. / Pre-op testing [...] of this encounter (statuses as of 07/27/2022) [facility] of Past illness Narrative* Problem Noted Date Resolved Date Medicare annual wellness visit, subsequent 10/0202/18/2019 Encounter for long-term (current) use of medicat ions 09/07/2017 05/07/2021 Overview: Added automatically from request for surgery [id number] History of colonic polyps 09/07/20172021 Overview: Added automatically from request for surgery [id number] Gastroesophageal reflux disease 09/07/2017 05/07/2021 Overview: Added automatically from request for surgery [id number] Acute pulmonary edema 01/19/2011 01/20/2011 Overview: 01/19/2011 [...] 01/12/2011 02/02/2011 Overview: age 70, lives in [place]. No DC needs. / Pre-op testing [...] of this encounter (statuses as of 07/29/2022) [facility] of Past illness Narrative* Problem Noted Date Resolved Date Medicare annual wellness visit, subsequent 10/0202/18/2019 Encounter for long-term (current) use of medicat ions 09/07/2017 05/07/2021 Overview: Added automatically from request for surgery [id number] History of colonic polyps 09/07/20172021 Overview: Added automatically from request for surgery [id number] Gastroesophageal reflux disease 09/07/2017 05/07/2021 Overview: Added automatically from request for surgery [id number] Acute pulmonary edema 01/19/2011 01/20/2011 Overview: 01/19/2011 [...] 01/12/2011 02/02/2011 Overview: age 70, lives in [place]. No DC needs. / Pre-op testing [...] of this encounter (statuses as of 08/06/2022) [facility] of Past illness Narrative* Problem Noted Date Resolved Date Medicare annual wellness visit, subsequent 10/0202/18/2019 Encounter for long-term (current) use of medicat ions 09/07/2017 05/07/2021 Overview: Added automatically from request for surgery [id number] History of colonic polyps 09/07/20172021 Overview: Added automatically from request for surgery [id number] Gastroesophageal reflux disease 09/07/2017 05/07/2021 Overview: Added automatically from request for surgery [id number] Acute pulmonary edema 01/19/2011 01/20/2011 Overview: 01/19/2011 [...] 01/12/2011 02/02/2011 Overview: age 70, lives in [place]. No DC needs. / Pre-op testing [...] of this encounter (statuses as of 08/10/2022) [facility] of Past illness Narrative* Problem Noted Date Resolved Date Medicare annual wellness visit, subsequent 10/0202/18/2019 Encounter for long-term (current) use of medicat ions 09/07/2017 05/07/2021 Overview: Added automatically from request for surgery [id number] History of colonic polyps 09/07/20172021 Overview: Added automatically from request for surgery [id number] Gastroesophageal reflux disease 09/07/2017 05/07/2021 Overview: Added automatically from request for surgery [id number] Acute pulmonary edema 01/19/2011 01/20/2011 Overview: 01/19/2011 [...] 01/12/2011 02/02/2011 Overview: age 70, lives in [place]. No DC needs. / Pre-op testing [...] of this encounter (statuses as of 08/16/2022) [facility] of Past illness Narrative* Problem Noted Date Resolved Date Medicare annual wellness visit, subsequent 10/0202/18/2019 Encounter for long-term (current) use of medicat ions 09/07/2017 05/07/2021 Overview: Added automatically from request for surgery [id number] History of colonic polyps 09/07/20172021 Overview: Added automatically from request for surgery [id number] Gastroesophageal reflux disease 09/07/2017 05/07/2021 Overview: Added automatically from request for surgery [id number] Acute pulmonary edema 01/19/2011 01/20/2011 Overview: 01/19/2011 [...] 01/12/2011 02/02/2011 Overview: age 70, lives in [place]. No DC needs. / Pre-op testing [...] of this encounter (statuses as of 08/18/2022) [facility] of Past illness Narrative* Problem Noted Date Resolved Date Medicare annual wellness visit, subsequent 10/0202/18/2019 Encounter for long-term (current) use of medicat ions 09/07/2017 05/07/2021 Overview: Added automatically from request for surgery [id number] History of colonic polyps 09/07/20172021 Overview: Added automatically from request for surgery [id number] Gastroesophageal reflux disease 09/07/2017 05/07/2021 Overview: Added automatically from request for surgery [id number] Acute pulmonary edema 01/19/2011 01/20/2011 Overview: 01/19/2011 [...] 01/12/2011 02/02/2011 Overview: age 70, lives in [place]. No DC needs. / Pre-op testing [...] of this encounter (statuses as of 08/19/2022) [facility] of Past illness Narrative* Problem Noted Date Resolved Date Medicare annual wellness visit, subsequent 10/0202/18/2019 Encounter for long-term (current) use of medicat ions 09/07/2017 05/07/2021 Overview: Added automatically from request for surgery [id number] History of colonic polyps 09/07/20172021 Overview: Added automatically from request for surgery [id number] Gastroesophageal reflux disease 09/07/2017 05/07/2021 Overview: Added automatically from request for surgery [id number] Acute pulmonary edema 01/19/2011 01/20/2011 Overview: 01/19/2011 [...] 01/12/2011 02/02/2011 Overview: age 70, lives in [place]. No DC needs. / Pre-op testing [...] of this encounter (statuses as of 08/20/2022) [facility] of Past illness Narrative* Problem Noted Date Resolved Date Medicare annual wellness visit, subsequent 10/0202/18/2019 Encounter for long-term (current) use of medicat ions 09/07/2017 05/07/2021 Overview: Added automatically from request for surgery [id number] History of colonic polyps 09/07/20172021 Overview: Added automatically from request for surgery [id number] Gastroesophageal reflux disease 09/07/2017 05/07/2021 Overview: Added automatically from request for surgery [id number] Acute pulmonary edema 01/19/2011 01/20/2011 Overview: 01/19/2011 [...] 01/12/2011 02/02/2011 Overview: age 70, lives in [place]. No DC needs. / Pre-op testing [...] of this encounter (statuses as of 08/22/2022) [facility] Narrative* Problem Noted Date Resolved Date Medicare annual wellness visit, subsequent 10/0202/18/2019 Encounter for long-term (current) use of medicat ions 09/07/2017 05/07/2021 Overview: Added automatically from request for surgery [id number] History of colonic polyps 09/07/20172021 Overview: Added automatically from request for surgery [id number] Gastroesophageal reflux disease 09/07/2017 05/07/2021 Overview: Added automatically from request for surgery [id number] Acute pulmonary edema 01/19/2011 01/20/2011 Overview: 01/19/2011 [...] 01/12/2011 02/02/2011 Overview: age 70, lives in [place]. No DC needs. / Pre-op testing [...] of this encounter (statuses as of 09/15/2022) [facility] Narrative* Problem Noted Date Resolved Date Medicare annual wellness visit, subsequent 10/0202/18/2019 Encounter for long-term (current) use of medicat ions 09/07/2017 05/07/2021 Overview: Added automatically from request for surgery [id number] History of colonic polyps 09/07/20172021 Overview: Added automatically from request for surgery [id number] Gastroesophageal reflux disease 09/07/2017 05/07/2021 Overview: Added automatically from request for surgery [id number] Acute pulmonary edema 01/19/2011 01/20/2011 Overview: 01/19/2011 [...] 01/12/2011 02/02/2011 Overview: age 70, lives in [place]. No DC needs. / Pre-op testing [...] of this encounter (statuses as of 09/20/2022) [facility] Narrative* Problem Noted Date Resolved Date Medicare annual wellness visit, subsequent 10/0202/18/2019 Encounter for long-term (current) use of medicat ions 09/07/2017 05/07/2021 Overview: Added automatically from request for surgery [id number] History of colonic polyps 09/07/20172021 Overview: Added automatically from request for surgery [id number] Gastroesophageal reflux disease 09/07/2017 05/07/2021 Overview: Added automatically from request for surgery [id number] Acute pulmonary edema 01/19/2011 01/20/2011 Overview: 01/19/2011 [...] 01/12/2011 02/02/2011 Overview: age 70, lives in [place]. No DC needs. / Pre-op testing [...] of this encounter (statuses as of 09/20/2022) [facility] Narrative* Problem Noted Date Resolved Date Medicare annual wellness visit, subsequent 10/0202/18/2019 Encounter for long-term (current) use of medicat ions 09/07/2017 05/07/2021 Overview: Added automatically from request for surgery [id number] History of colonic polyps 09/07/20172021 Overview: Added automatically from request for surgery [id number] Gastroesophageal reflux disease 09/07/2017 05/07/2021 Overview: Added automatically from request for surgery [id number] Acute pulmonary edema 01/19/2011 01/20/2011 Overview: 01/19/2011 [...] 01/12/2011 02/02/2011 Overview: age 70, lives in [place]. No DC needs. / Pre-op testing [...] of this encounter (statuses as of 09/22/2022) [facility] Narrative* Problem Noted Date Resolved Date Medicare annual wellness visit, subsequent 10/0202/18/2019 Encounter for long-term (current) use of medicat ions 09/07/2017 05/07/2021 Overview: Added automatically from request for surgery [id number] History of colonic polyps 09/07/20172021 Overview: Added automatically from request for surgery [id number] Gastroesophageal reflux disease 09/07/2017 05/07/2021 Overview: Added automatically from request for surgery [id number] Acute pulmonary edema 01/19/2011 01/20/2011 Overview: 01/19/2011 [...] 01/12/2011 02/02/2011 Overview: age 70, lives in [place]. No DC needs. / Pre-op testing [...] of this encounter (statuses as of 09/30/2022) [facility] Narrative* Problem Noted Date Resolved Date Medicare annual wellness visit, subsequent 10/0202/18/2019 Encounter for long-term (current) use of medicat ions 09/07/2017 05/07/2021 Overview: Added automatically from request for surgery [id number] History of colonic polyps 09/07/20172021 Overview: Added automatically from request for surgery [id number] Gastroesophageal reflux disease 09/07/2017 05/07/2021 Overview: Added automatically from request for surgery [id number] Acute pulmonary edema 01/19/2011 01/20/2011 Overview: 01/19/2011 [...] 01/12/2011 02/02/2011 Overview: age 70, lives in [place]. No DC needs. / Pre-op testing [...] of this encounter (statuses as of 10/21/2022) [facility] Narrative* Problem Noted Date Diagnosed Date Resolved Date Medicare annual wellness visit, subsequent 10/02/2018 02/18/2019 Encounter for long-term (cur rent) use of medications 09/07/2017 05/07/2021 Overview: Added automatically from request for surgery [id number] History of colonic polyps 09/07/2017 Overview: Added automatically from request for surgery [id number] Gastroesophageal reflux disease 09/07/2017 05/07/2021 Overview: Added automatically from request for surgery [id number] Acute pulmonary edema 01/19/20112010 Overview: 01/19/2011 cardiogenic [...] 01/12/2011 1 Overview: age 70, lives in [place]. No DC needs. / Pre-op testing [...] of this encounter (statuses as of 11/01/2022) [facility] Narrative* Problem Noted Date Diagnosed Date Resolved Date Medicare annual wellness visit, subsequent 10/02/2018 02/18/2019 Encounter for long-term (cur rent) use of medications 09/07/2017 05/07/2021 Overview: Added automatically from request for surgery [id number] History of colonic polyps 09/07/2017 Overview: Added automatically from request for surgery [id number] Gastroesophageal reflux disease 09/07/2017 05/07/2021 Overview: Added automatically from request for surgery [id number] Acute pulmonary edema 01/19/20112010 Overview: 01/19/2011 cardiogenic [...] 01/12/2011 1 Overview: age 70, lives in [place]. No DC needs. / Pre-op testing [...] of this encounter (statuses as of 11/03/2022) [facility] Narrative* Problem Noted Date Diagnosed Date Resolved Date Medicare annual wellness visit, subsequent 10/02/2018 02/18/2019 Encounter for long-term (cur rent) use of medications 09/07/2017 05/07/2021 Overview: Added automatically from request for surgery [id number] History of colonic polyps 09/07/2017 Overview: Added automatically from request for surgery [id number] Gastroesophageal reflux disease 09/07/2017 05/07/2021 Overview: Added automatically from request for surgery [id number] Acute pulmonary edema 01/19/20112010 Overview: 01/19/2011 cardiogenic [...] 01/12/2011 1 Overview: age 70, lives in [place]. No DC needs. / Pre-op testing [...] of this encounter (statuses as of 11/04/2022) [facility] Essential hypertension- Primary Unspecified essential hypertension [facility] this encounter [facility] Diagnosis Gastroesophageal reflux disease, unspecified whether esophagitis present Essential hypertension Unspecified essential hypertension Mixed hyperlipidemia Aortic valve disorder Aortic valve disorders Coronary artery disease involving [place] coronary artery of [place] heart without angina pectoris documented [facility] this [facility] Diagnosis Adenomatous polyp of colon, unspecified part of colon- Primary Impaired fasting glucose Stage 3 chronic kidney disease, unspecified whether stage 3a or 3b CKD (HCC) Essential hypertension Unspecified essential hypertension Anemia of chronic disease Anemia of other chronic disease Thrombocytopenia (HCC) Thrombocytopenia, unspecified [facility] Diagnosis Peripheral polyneuropathy- Primary Unspecified hereditary and idiopathic peripheral neuropathy Frequent falls Personal history of fall Contusion of hip, unspecified laterality, subsequent encounter Muscular weakness Muscle weakness (generalized) Abnormality of gait [facility] Frequent falls- Primary Personal history of fall Peripheral polyneuropathy Unspecified hereditary and idiopathic peripheral neuropathy [facility] Diagnosis Peripheral polyneuropathy- Primary Unspecified hereditary and idiopathic peripheral neuropathy Abnormality of gait Stage 3a chronic kidney disease (HCC) Essential hypertension Unspecified essential hypertension [facility] Diagnosis Personal history of falling, presenting hazards to health- Primary Personal history of fall Peripheral polyneuropathy Unspecified hereditary and idiopathic peripheral neuropathy Abnormality of gait [facility] Diagnosis Monoclonal gammopathy- Primary Monoclonal paraproteinemia Macrocytic anemia Unspecified deficiency anemia Thrombocytopenia (HCC) Thrombocytopenia, unspecified [facility] Diagnosis Cirrhosis of liver without ascites, unspecified hepatic cirrhosis type (HCC)- Primary Splenomegaly Liver lesion Other specified disorders of liver Metabolic syndrome Dysmetabolic Syndrome X Lower extremity edema Edema Healthcare maintenance Routine general medical examination at a health care facility [facility] Diagnosis Cirrhosis of liver without ascites, unspecified hepatic cirrhosis type (HCC)- Primary Claustrophobia Other isolated or specific phobias [facility] Diagnosis Stasis dermatitis of both legs- Primary Varicose veins of lower extremities with inflammation Local skin infection Unspecified local infection of skin and subcutaneous tissue Urge incontinence of urine Urge incontinence Peripheral polyneuropathy Unspecified hereditary and idiopathic peripheral neuropathy [facility] Diagnosis 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 [facility] Diagnosis 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 [facility] Diagnosis Iron deficiency anemia, unspecified iron deficiency anemia type- Primary History of colonic polyps Personal history of colonic polyps History of cirrhosis Personal history of other diseases of digestive system [facility] Diagnosis Cirrhosis of liver without [...] of liver, primary [facility] Diagnosis Hepatocellular carcinoma (HCC)- Primary Malignant neoplasm of liver, primary Cirrhosis of liver without ascites, unspecified hepatic cirrhosis type (HCC) [facility] Diagnosis Cirrhosis of liver without ascites, unspecified hepatic cirrhosis type (HCC)- Primary [facility] Diagnosis Hepatocellular carcinoma (HCC)- Primary Malignant neoplasm of liver, primary [facility] Diagnosis Hepatocellular carcinoma (HCC)- Primary Malignant neoplasm of liver, primary [facility] Diagnosis Unspecified essential hypertension Urge incontinence of urine Urge incontinence [facility] Diagnosis Coronary artery disease involving [place] coronary artery of [place] heart without angina pectoris Urge incontinence of urine Urge incontinence [facility] Diagnosis Iron deficiency anemia due to chronic blood loss- Primary Iron deficiency anemia secondary to blood loss (chronic) Macrocytic anemia Unspecified deficiency anemia Hepatocellular carcinoma (HCC) Malignant neoplasm of liver, primary Thrombocytopenia (HCC) Thrombocytopenia, unspecified Hyperparathyroidism (HCC) Hyperparathyroidism, unspecified MGUS (monoclonal gammopathy of unknown significance) Monoclonal paraproteinemia [facility] Diagnosis New onset atrial flutter (HCC)- Primary Atrial flutter Coronary artery disease involving [place] coronary artery of [place] heart without angina pectoris [facility] Diagnosis 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 note* Diagnosis Monoclonal gammopathy Monoclonal paraproteinemia Macrocytic anemia Unspecified deficiency anemia Thrombocytopenia (HCC) Thrombocytopenia, unspecified documented in this encounter [facility] note* Diagnosis Liver disease Unspecified disorder of liver documented in this encounter [facility]* Visit [...] & Living Will. [facility] Visit Details [...] front wheeled walker documented in this encounter [facility]* Visit Details Visit Type -FLIGHT FOLLOWER ROUTINE Discipline -Physical Therapy Problems Problem Description [...] to: caregiver assistance. documented in this encounter [facility]* Visit Details Visit Type -FLIGHT FOLLOWER ROUTINE Discipline -Physical Therapy Problems Problem Description [...] without ongoing services. documented in this encounter [facility] note* Visit [...] rest and positioning/elevation. documented in this encounter [facility] note* Visit Details Visit Type -FLIGHT FOLLOWER ROUTINE Discipline -Physical Therapy Problems Problem Description [...] without ongoing services. [facility] Visit Details [...] walker Managing Pain documented in this encounter [facility]* Visit Details Visit Type -FLIGHT FOLLOWER ROUTINE Discipline -Physical Therapy Problems Problem Description [...] without ongoing services. documented in this encounter [facility] care note* Visit [...] without ongoing services. [facility] Visit Details Visit Type -FLIGHT FOLLOWER ROUTINE Discipline -Physical Therapy Problems Problem Description [...] without ongoing services. documented in this encounter [facility] Plan [facility] care note* Visit Details Visit Type -FLIGHT FOLLOWER ROUTINE Discipline -Physical Therapy Problems Problem Description [...] to: caregiver assistance. [facility] Visit Details [...] pattern, pt must make an effort to slat pickler his toes , has no toe off [...] with community assistance [facility] Diagnostic Procedure Only (Routine) - Closed Specialty Diagnoses / Procedures Referred By Steve anaya Referred To Contact XR IMAGING Diagnoses Monoclonal gammopathy Procedures XR BONE SURVEY ROUTINE RADIOLOGIC EXAMINATION OSSEOUS SURVEY COMPL Yuniel Dahl DO [address] [place] [address] Xr Imaging Referral ID Status Reason Start Date Expiration Date V isits Requested Visits Authorized [id number] Closed Auto-Generate d Referral 03/22/2022 04/21/2023 1 1 * Diagnostic Procedure Only (Routine) - Authorized Specialty Diagnoses / Procedures Referred By Steve anaya Referred To Contact US IMAGING Diagnoses Monoclonal gammopathy Macrocytic anemia Thrombocytopenia (HCC) Procedures US ABD RT UPPER QUADRANT US ABDOMINAL REAL TIME W/IMAGE LIMITED Yuniel Dahl, DO [address] [place] [address] Us Imaging Referral ID Status Reason Start Date Expiration Date Visits Requested Visits Authorized [id number] Authorized Auto-Generat ed Referral 03/22/2022 04/21/2023 1 1 [facility] for referral (narrative)* Outpatient Procedure (Routine) - Authorized Specialty Diagnoses / Procedures Referred By Steve t Referred To Contact [facility] Diagnoses Melena Procedures EGD - THERAPEUTIC, EUS, OR TUBE INTERVENTIONS EGD BAND LIGATION ESOPHGEAL/GASTRIC VARICES Haley Hampton MD [address] [place] [address] [place] [address] Referral ID Status Reason Start Date Expiration Date Visits Requested Visits Authorized [id number] Authorized Auto-Generat ed Referral 3 02/03/2024 1 1 [facility] for referral (narrative)* Diagnostic Procedure Only (Routine) - Closed Specialty Diagnoses / Procedures Referred By Contac t Referred To Contact US IMAGING Diagnoses Monoclonal gammopathy Macrocytic anemia Thrombocytopenia (HCC) Procedures US ABD RT UPPER QUADRANT US ABDOMINAL REAL TIME W/IMAGE LIMITED Yuniel Dahl DO [address] [place] [address] [place] [id number] Referral ID Status Reason Start Date Expiration Date V isits Requested Visits Authorized [id number] Closed Auto-Generate d Referral 03/22/2022 04/21/2023 1 1 [facility] Summary Purpose Family History No Family History Records FoundNo Family History Records FoundNo Family History Records FoundNo Family History Records FoundNo Family History Records FoundNo Family History Records Found Advance Directives No Advanced Directives Records FoundDocuments on File Type Date Recorded 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 Vegetable 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 Expl anation Advance Directive(s) 05/09/2019 9:27 AM Advance Directive(s) 04/24/2019 5:47 PM Advance Directive(s) 10/02/2017 11:22 AM Documents on File Type Date Recorded 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 Vegetable 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 Expl anation Advance Directive(s) 05/09/2019 9:27 AM [...] Procedures CONSULT TO GASTROENTEROLOGY Ricky Bradley MD [address] [place] [address] Referral ID Status Reason Start Date Expiration Date Visits Requested Visits Authorized [id number] Ref Not Required PCP Requested Referral 11/04/2021 11/04/2022 1 1 Specialty Diagnoses / Procedures Referred By Contac t Referred To Contact Diagnoses Peripheral polyneuropathy Frequent falls Contusion of hip, unspecified laterality, subsequent encounter Muscular weakness Abnormality of gait Procedures CONSULT TO [facility] Ricky Bradley MD [address] [place] [address] [address] [place] [id number] Referral ID Status Reason Start Date Expiration Date Visits Requested Visits Authorized [id number] Authorized PCP Requested Referral 12/11/2021 03/11/2022 1 1 Specialty Diagnoses / Procedures Referred By Contac t Referred To Contact Diagnoses Frequent falls Peripheral polyneuropathy Procedures CONSULT TO NEUROLOGY Ricky Bradley MD [address] [place] [address] Referral ID Status Reason Start Date Expiration Date Visits Requested Visits Authorized [id number] Ref Not Required PCP Requested Referral 01/19/2022 01/17/2023 1 1 Specialty Diagnoses / Procedures Referred By Contac t Referred To Contact [facility] Diagnoses Peripheral polyneuropathy Abnormality of gait Procedures CONSULT TO ERP CONSULTANT OCCUPATIONAL THERAPY EVAL HIGH COMPLEX 60 MINS Ricky Bradley MD [address] [place] [address] [facility] [address] [place] [address] Referral ID Status Reason Start Date Expiration Date Visits Requested Visits Authorized [id number] Authorized PCP Requested Referral Auto-Generate d Referral 01/31/2023 99 99 Specialty Diagnoses / Procedures Referred By Contac t Referred To Contact MR IMAGING Diagnoses Cirrhosis of liver without ascites, unspecified hepatic cirrhosis type (HCC) Liver mass Splenomegaly Procedures MRI LIVER WO/W IVCON MRI ABDOMEN W/O & W/CONTRAST MATERIAL Kai Alvarado PA-C [address] [place] [address] Mr Imaging Referral ID Status Reason Start Date Expiration Date Visits Requested Visits Authorized [id number] Pending Review Auto-Generat ed Referral 05/13/2022 06/12/2023 1 1 Referral ID Status Reason Start Date Expiration Date V isits Requested Visits Authorized [id number] Closed Auto-Generate d Referral 05/13/2022 06/12/2023 1 1 Specialty Diagnoses / Procedures Referred By Contac t Referred To Contact Diagnoses Hepatocellular carcinoma (HCC) Procedures CT SIM PLANNING RADIATION ONCOLOGY THER RAD SIMULAJ-AIDED [place] [address] [place] [address] Referral ID Status Reason Start Date Expiration Date Visits Requested Visits Authorized [id number] Pending Review PCP Requested Referral 08/16/2022 11/13/2022 1 1 Specialty Diagnoses / Procedures Referred By Steve anaya Referred To Contact MR IMAGING Diagnoses Liver disease Procedures MRI LIVER WO/W IVCON MRI ABDOMEN W/O & W/[place] [address] [place] [address] [place] [id number] Referral ID Status Reason Start Date Expiration Date V isits Requested Visits Authorized [id number] Closed Auto-Generate d Referral 12/16/2022 10/03/2023 1 [...] CREATED AUTHOR AUTHOR'S ORGANIZ ATION 10/10/2017 [facility] DATE CREATED AUTHOR AUTHOR'S ORGANIZ ATION 10/11/2017 [facility] DATE CREATED AUTHOR AUTHOR'S ORGANIZ ATION 04/27/2022 [facility] DATE CREATED AUTHOR AUTHOR'S ORGANIZ ATION 05/13/2022 [facility] DATE CREATED AUTHOR AUTHOR'S ORGANIZ ATION 03/20/2023 [facility] Source Comments (unrecognize d section and content) In the event this informatio n is protected by the Federal Confidentiality of Alcohol and Drug Abuse Patient Records regulations: The Federal rules restrict any use of the information to criminally investigate or prosecute any alcohol or drug abuse patient.[facility] event this information is protected by the Federal Confidentiality of Alcohol and Drug Abuse Patient Records regulations: The Federal rules restrict any use of the information to criminally investigate or prosecute any alcohol or drug abuse patient.[facility] the event this information is protected by the Federal Confidentiality of Alcohol and Drug Abuse Patient Records regulations: The Federal rules restrict any use of the information to criminally investigate or prosecute any alcohol or drug abuse patient.[facility] the event this information is protected by the Federal Confidentiality of Alcohol and Drug Abuse Patient Records regulations: The Federal rules restrict any use of the information to criminally investigate or prosecute any alcohol or drug abuse patient.[facility] the event this information is protected by the Federal Confidentiality of Alcohol and Drug Abuse Patient Records regulations: The Federal rules restrict any use of the information to criminally investigate or prosecute any alcohol or drug abuse patient.[facility] the event this information is protected by the Federal Confidentiality of Alcohol and Drug Abuse Patient Records regulations: The Federal rules restrict any use of the information to criminally investigate or prosecute any alcohol or drug abuse patient.[facility] the event this information is protected by the Federal Confidentiality of Alcohol and Drug Abuse Patient Records regulations: The Federal rules restrict any use of the information to criminally investigate or prosecute any alcohol or drug abuse patient.[facility] the event this information is protected by the Federal Confidentiality of Alcohol and Drug Abuse Patient Records regulations: The Federal rules restrict any use of the information to criminally investigate or prosecute any alcohol or drug abuse patient.[facility] the event this information is protected by the Federal Confidentiality of Alcohol and Drug Abuse Patient Records regulations: The Federal rules restrict any use of the information to criminally investigate or prosecute any alcohol or drug abuse patient.[facility] the event this information is protected by the Federal Confidentiality of Alcohol and Drug Abuse Patient Records regulations: The Federal rules restrict any use of the information to criminally investigate or prosecute any alcohol or drug abuse patient.[facility] the event this information is protected by the Federal Confidentiality of Alcohol and Drug Abuse Patient Records regulations: The Federal rules restrict any use of the information to criminally investigate or prosecute any alcohol or drug abuse patient.[facility] the event this information is protected by the Federal Confidentiality of Alcohol and Drug Abuse Patient Records regulations: The Federal rules restrict any use of the information to criminally investigate or prosecute any alcohol or drug abuse patient.[facility] the event this information is protected by the Federal Confidentiality of Alcohol and Drug Abuse Patient Records regulations: The Federal rules restrict any use of the information to criminally investigate or prosecute any alcohol or drug abuse patient.[facility] the event this information is protected by the Federal Confidentiality of Alcohol and Drug Abuse Patient Records regulations: The Federal rules restrict any use of the information to criminally investigate or prosecute any alcohol or drug abuse patient.[facility] the event this information is protected by the Federal Confidentiality of Alcohol and Drug Abuse Patient Records regulations: The Federal rules restrict any use of the information to criminally investigate or prosecute any alcohol or drug abuse patient.[facility] the event this information is protected by the Federal Confidentiality of Alcohol and Drug Abuse Patient Records regulations: The Federal rules restrict any use of the information to criminally investigate or prosecute any alcohol or drug abuse patient.[facility] the event this information is protected by the Federal Confidentiality of Alcohol and Drug Abuse Patient Records regulations: The Federal rules restrict any use of the information to criminally investigate or prosecute any alcohol or drug abuse patient.[facility] the event this information is protected by the Federal Confidentiality of Alcohol and Drug Abuse Patient Records regulations: The Federal rules restrict any use of the information to criminally investigate or prosecute any alcohol or drug abuse patient.[facility] the event this information is protected by the Federal Confidentiality of Alcohol and Drug Abuse Patient Records regulations: The Federal rules restrict any use of the information to criminally investigate or prosecute any alcohol or drug abuse patient.[facility] the event this information is protected by the Federal Confidentiality of Alcohol and Drug Abuse Patient Records regulations: The Federal rules restrict any use of the information to criminally investigate or prosecute any alcohol or drug abuse patient.[facility] the event this information is protected by the Federal Confidentiality of Alcohol and Drug Abuse Patient Records regulations: The Federal rules restrict any use of the information to criminally investigate or prosecute any alcohol or drug abuse patient.[facility] the event this information is protected by the Federal Confidentiality of Alcohol and Drug Abuse Patient Records regulations: The Federal rules restrict any use of the information to criminally investigate or prosecute any alcohol or drug abuse patient.[facility] the event this information is protected by the Federal Confidentiality of Alcohol and Drug Abuse Patient Records regulations: The Federal rules restrict any use of the information to criminally investigate or prosecute any alcohol or drug abuse patient.[facility] the event this information is protected by the Federal Confidentiality of Alcohol and Drug Abuse Patient Records regulations: The Federal rules restrict any use of the information to criminally investigate or prosecute any alcohol or drug abuse patient.[facility] the event this information is protected by the Federal Confidentiality of Alcohol and Drug Abuse Patient Records regulations: The Federal rules restrict any use of the information to criminally investigate or prosecute any alcohol or drug abuse patient.[facility] the event this information is protected by the Federal Confidentiality of Alcohol and Drug Abuse Patient Records regulations: The Federal rules restrict any use of the information to criminally investigate or prosecute any alcohol or drug abuse patient.[facility] the event this information is protected by the Federal Confidentiality of Alcohol and Drug Abuse Patient Records regulations: The Federal rules restrict any use of the information to criminally investigate or prosecute any alcohol or drug abuse patient.[facility] the event this information is protected by the Federal Confidentiality of Alcohol and Drug Abuse Patient Records regulations: The Federal rules restrict any use of the information to criminally investigate or prosecute any alcohol or drug abuse patient.[facility] the event this information is protected by the Federal Confidentiality of Alcohol and Drug Abuse Patient Records regulations: The Federal rules restrict any use of the information to criminally investigate or prosecute any alcohol or drug abuse patient.[facility] the event this information is protected by the Federal Confidentiality of Alcohol and Drug Abuse Patient Records regulations: The Federal rules restrict any use of the information to criminally investigate or prosecute any alcohol or drug abuse patient.[facility] the event this information is protected by the Federal Confidentiality of Alcohol and Drug Abuse Patient Records regulations: The Federal rules restrict any use of the information to criminally investigate or prosecute any alcohol or drug abuse patient.[facility] the event this information is protected by the Federal Confidentiality of Alcohol and Drug Abuse Patient Records regulations: The Federal rules restrict any use of the information to criminally investigate or prosecute any alcohol or drug abuse patient.[facility] the event this information is protected by the Federal Confidentiality of Alcohol and Drug Abuse Patient Records regulations: The Federal rules restrict any use of the information to criminally investigate or prosecute any alcohol or drug abuse patient.[facility] HospitalIn the event this information is protected by the Federal Confidentiality of Alcohol and Drug Abuse Patient Records regulations: The Federal rules restrict any use of the information to criminally investigate or prosecute any alcohol or drug abuse patient.[facility]In the event this information is protected by the Federal Confidentiality of Alcohol and Drug Abuse Patient Records regulations: The Federal rules restrict any use of the information to criminally investigate or prosecute any alcohol or drug abuse patient.[facility]In the event this information is protected by the Federal Confidentiality of Alcohol and Drug Abuse Patient Records regulations: The Federal rules restrict any use of the information to criminally investigate or prosecute any alcohol or drug abuse patient.[facility]In the event this information is protected by the Federal Confidentiality of Alcohol and Drug Abuse Patient Records regulations: The Federal rules restrict any use of the information to criminally investigate or prosecute any alcohol or drug abuse patient.[facility]In the event this information is protected by the Federal Confidentiality of Alcohol and Drug Abuse Patient Records regulations: The Federal rules restrict any use of the information to criminally investigate or prosecute any alcohol or drug abuse patient.[facility]In the event this information is protected by the Federal Confidentiality of Alcohol and Drug Abuse Patient Records regulations: The Federal rules restrict any use of the information to criminally investigate or prosecute any alcohol or drug abuse patient.[facility]In the event this information is protected by the Federal Confidentiality of Alcohol and Drug Abuse Patient Records regulations: The Federal rules restrict any use of the information to criminally investigate or prosecute any alcohol or drug abuse patient.[facility]In the event this information is protected by the Federal Confidentiality of Alcohol and Drug Abuse Patient Records regulations: The Federal rules restrict any use of the information to criminally investigate or prosecute any alcohol or drug abuse patient.[facility]In the event this information is protected by the Federal Confidentiality of Alcohol and Drug Abuse Patient Records regulations: The Federal rules restrict any use of the information to criminally investigate or prosecute any alcohol or drug abuse patient.[facility]In the event this information is protected by the Federal Confidentiality of Alcohol and Drug Abuse Patient Records regulations: The Federal rules restrict any use of the information to criminally investigate or prosecute any alcohol or drug abuse patient.[facility]In the event this information is protected by the Federal Confidentiality of Alcohol and Drug Abuse Patient Records regulations: The Federal rules restrict any use of the information to criminally investigate or prosecute any alcohol or drug abuse patient.[facility] HospitalIn the event this information is protected by the Federal Confidentiality of Alcohol and Drug Abuse Patient Records regulations: The Federal rules restrict any use of the information to criminally investigate or prosecute any alcohol or drug abuse patient.[facility] HospitalIn the event this information is protected by the Federal Confidentiality of Alcohol and Drug Abuse Patient Records regulations: The Federal rules restrict any use of the information to criminally investigate or prosecute any alcohol or drug abuse patient.[facility]In the event this information is protected by the Federal Confidentiality of Alcohol and Drug Abuse Patient Records regulations: The Federal rules restrict any use of the information to criminally investigate or prosecute any alcohol or drug abuse patient.[facility] HospitalIn the event this information is protected by the Federal Confidentiality of Alcohol and Drug Abuse Patient Records regulations: The Federal rules restrict any use of the information to criminally investigate or prosecute any alcohol or drug abuse patient.[facility] HospitalIn the event this information is protected by the Federal Confidentiality of Alcohol and Drug Abuse Patient Records regulations: The Federal rules restrict any use of the information to criminally investigate or prosecute any alcohol or drug abuse patient.[facility] HospitalIn the event this information is protected by the Federal Confidentiality of Alcohol and Drug Abuse Patient Records regulations: The Federal rules restrict any use of the information to criminally investigate or prosecute any alcohol or drug abuse patient.[facility] HospitalIn the event this information is protected by the Federal Confidentiality of Alcohol and Drug Abuse Patient Records regulations: The Federal rules restrict any use of the information to criminally investigate or prosecute any alcohol or drug abuse patient.[facility] HospitalIn the event this information is protected by the Federal Confidentiality of Alcohol and Drug Abuse Patient Records regulations: The Federal rules restrict any use of the information to criminally investigate or prosecute any alcohol or drug abuse patient.[facility] HospitalIn the event this information is protected by the Federal Confidentiality of Alcohol and Drug Abuse Patient Records regulations: The Federal rules restrict any use of the information to criminally investigate or prosecute any alcohol or drug abuse patient.[facility] HospitalIn the event this information is protected by the Federal Confidentiality of Alcohol and Drug Abuse Patient Records regulations: The Federal rules restrict any use of the information to criminally investigate or prosecute any alcohol or drug abuse patient.[facility] HospitalIn the event this information is protected by the Federal Confidentiality of Alcohol and Drug Abuse Patient Records regulations: The Federal rules restrict any use of the information to criminally investigate or prosecute any alcohol or drug abuse patient.[facility] HospitalIn the event this information is protected by the Federal Confidentiality of Alcohol and Drug Abuse Patient Records regulations: The Federal rules restrict any use of the information to criminally investigate or prosecute any alcohol or drug abuse patient.[facility] HospitalIn the event this information is protected by the Federal Confidentiality of Alcohol and Drug Abuse Patient Records regulations: The Federal rules restrict any use of the information to criminally investigate or prosecute any alcohol or drug abuse patient.[facility] HospitalIn the event this information is protected by the Federal Confidentiality of Alcohol and Drug Abuse Patient Records regulations: The Federal rules restrict any use of the information to criminally investigate or prosecute any alcohol or drug abuse patient.[facility] HospitalIn the event this information is protected by the Federal Confidentiality of Alcohol and Drug Abuse Patient Records regulations: The Federal rules restrict any use of the information to criminally investigate or prosecute any alcohol or drug abuse patient.[facility] HospitalIn the event this information is protected by the Federal Confidentiality of Alcohol and Drug Abuse Patient Records regulations: The Federal rules restrict any use of the information to criminally investigate or prosecute any alcohol or drug abuse patient.[facility] HospitalIn the event this information is protected by the Federal Confidentiality of Alcohol and Drug Abuse Patient Records regulations: The Federal rules restrict any use of the information to criminally investigate or prosecute any alcohol or drug abuse patient.[facility] HospitalIn the event this information is protected by the Federal Confidentiality of Alcohol and Drug Abuse Patient Records regulations: The Federal rules restrict any use of the information to criminally investigate or prosecute any alcohol or drug abuse patient.[facility] HospitalIn the event this information is protected by the Federal Confidentiality of Alcohol and Drug Abuse Patient Records regulations: The Federal rules restrict any use of the information to criminally investigate or prosecute any alcohol or drug abuse patient.[facility]In the event this information is protected by the Federal Confidentiality of Alcohol and Drug Abuse Patient Records regulations: The Federal rules restrict any use of the information to criminally investigate or prosecute any alcohol or drug abuse patient.[facility] HospitalIn the event this information is protected by the Federal Confidentiality of Alcohol and Drug Abuse Patient Records regulations: The Federal rules restrict any use of the information to criminally investigate or prosecute any alcohol or drug abuse patient.[facility] the event this information is protected by the Federal Confidentiality of Alcohol and Drug Abuse Patient Records regulations: The Federal rules restrict any use of the information to criminally investigate or prosecute any alcohol or drug abuse patient.[facility] HospitalIn the event this information is protected by the Federal Confidentiality of Alcohol and Drug Abuse Patient Records regulations: The Federal rules restrict any use of the information to criminally investigate or prosecute any alcohol or drug abuse patient.[facility] HospitalIn the event this information is protected by the Federal Confidentiality of Alcohol and Drug Abuse Patient Records regulations: The Federal rules restrict any use of the information to criminally investigate or prosecute any alcohol or drug abuse patient.[facility] HospitalIn the event this information is protected by the Federal Confidentiality of Alcohol and Drug Abuse Patient Records regulations: The Federal rules restrict any use of the information to criminally investigate or prosecute any alcohol or drug abuse patient.[facility] HospitalIn the event this information is protected by the Federal Confidentiality of Alcohol and Drug Abuse Patient Records regulations: The Federal rules restrict any use of the information to criminally investigate or prosecute any alcohol or drug abuse patient.[facility] HospitalIn the event this information is protected by the Federal Confidentiality of Alcohol and Drug Abuse Patient Records regulations: The Federal rules restrict any use of the information to criminally investigate or prosecute any alcohol or drug abuse patient.[facility] HospitalIn the event this information is protected by the Federal Confidentiality of Alcohol and Drug Abuse Patient Records regulations: The Federal rules restrict any use of the information to criminally investigate or prosecute any alcohol or drug abuse patient.[facility] HospitalIn the event this information is protected by the Federal Confidentiality of Alcohol and Drug Abuse Patient Records regulations: The Federal rules restrict any use of the information to criminally investigate or prosecute any alcohol or drug abuse patient.[facility] HospitalIn the event this information is protected by the Federal Confidentiality of Alcohol and Drug Abuse Patient Records regulations: The Federal rules restrict any use of the information to criminally investigate or prosecute any alcohol or drug abuse patient.[facility] HospitalIn the event this information is protected by the Federal Confidentiality of Alcohol and Drug Abuse Patient Records regulations: The Federal rules restrict any use of the information to criminally investigate or prosecute any alcohol or drug abuse patient.[facility] HospitalIn the event this information is protected by the Federal Confidentiality of Alcohol and Drug Abuse Patient Records regulations: The Federal rules restrict any use of the information to criminally investigate or prosecute any alcohol or drug abuse patient.[facility] HospitalIn the event this information is protected by the Federal Confidentiality of Alcohol and Drug Abuse Patient Records regulations: The Federal rules restrict any use of the information to criminally investigate or prosecute any alcohol or drug abuse patient.[facility] HospitalIn the event this information is protected by the Federal Confidentiality of Alcohol and Drug Abuse Patient Records regulations: The Federal rules restrict any use of the information to criminally investigate or prosecute any alcohol or drug abuse patient.[facility] HospitalIn the event this information is protected by the Federal Confidentiality of Alcohol and Drug Abuse Patient Records regulations: The Federal rules restrict any use of the information to criminally investigate or prosecute any alcohol or drug abuse patient.[facility]In the event this information is protected by the Federal Confidentiality of Alcohol and Drug Abuse Patient Records regulations: The Federal rules restrict any use of the information to criminally investigate or prosecute any alcohol or drug abuse patient.[facility] HospitalIn the event this information is protected by the Federal Confidentiality of Alcohol and Drug Abuse Patient Records regulations: The Federal rules restrict any use of the information to criminally investigate or prosecute any alcohol or drug abuse patient.[facility] HospitalIn the event this information is protected by the Federal Confidentiality of Alcohol and Drug Abuse Patient Records regulations: The Federal rules restrict any use of the information to criminally investigate or prosecute any alcohol or drug abuse patient.[facility]In the event this information is protected by the Federal Confidentiality of Alcohol and Drug Abuse Patient Records regulations: The Federal rules restrict any use of the information to criminally investigate or prosecute any alcohol or drug abuse patient.[facility]In the event this information is protected by the Federal Confidentiality of Alcohol and Drug Abuse Patient Records regulations: The Federal rules restrict any use of the information to criminally investigate or prosecute any alcohol or drug abuse patient.[facility]In the event this information is protected by the Federal Confidentiality of Alcohol and Drug Abuse Patient Records regulations: The Federal rules restrict any use of the information to criminally investigate or prosecute any alcohol or drug abuse patient.[facility] HospitalIn the event this information is protected by the Federal Confidentiality of Alcohol and Drug Abuse Patient Records regulations: The Federal rules restrict any use of the information to criminally investigate or prosecute any alcohol or drug abuse patient.[facility] HospitalIn the event this information is protected by the Federal Confidentiality of Alcohol and Drug Abuse Patient Records regulations: The Federal rules restrict any use of the information to criminally investigate or prosecute any alcohol or drug abuse patient.[facility]In the event this information is protected by the Federal Confidentiality of Alcohol and Drug Abuse Patient Records regulations: The Federal rules restrict any use of the information to criminally investigate or prosecute any alcohol or drug abuse patient.[facility] HospitalIn the event this information is protected by the Federal Confidentiality of Alcohol and Drug Abuse Patient Records regulations: The Federal rules restrict any use of the information to criminally investigate or prosecute any alcohol or drug abuse patient.[facility]In the event this information is protected by the Federal Confidentiality of Alcohol and Drug Abuse Patient Records regulations: The Federal rules restrict any use of the information to criminally investigate or prosecute any alcohol or drug abuse patient.[facility] HospitalIn the event this information is protected by the Federal Confidentiality of Alcohol and Drug Abuse Patient Records regulations: The Federal rules restrict any use of the information to criminally investigate or prosecute any alcohol or drug abuse patient.[facility] HospitalIn the event this information is protected by the Federal Confidentiality of Alcohol and Drug Abuse Patient Records regulations: The Federal rules restrict any use of the information to criminally investigate or prosecute any alcohol or drug abuse patient.[facility]In the event this information is protected by the Federal Confidentiality of Alcohol and Drug Abuse Patient Records regulations: The Federal rules restrict any use of the information to criminally investigate or prosecute any alcohol or drug abuse patient.[facility]In the event this information is protected by the Federal Confidentiality of Alcohol and Drug Abuse Patient Records regulations: The Federal rules restrict any use of the information to criminally investigate or prosecute any alcohol or drug abuse patient.[facility]In the event this information is protected by the Federal Confidentiality of Alcohol and Drug Abuse Patient Records regulations: The Federal rules restrict any use of the information to criminally investigate or prosecute any alcohol or drug abuse patient.[facility]In the event this information is protected by the Federal Confidentiality of Alcohol and Drug Abuse Patient Records regulations: The Federal rules restrict any use of the information to criminally investigate or prosecute any alcohol or drug abuse patient.[facility] Reason for Visit (unrecogniz ed section and [...] polyneuropathy Abnormality of gait Procedures CONSULT TO ERP CONSULTANT OCCUPATIONAL THERAPY EVAL HIGH COMPLEX 60 MINS Ricky Bradley MD [address] [place] [address] [facility] [address] [place] [address] Referral ID Status Reason Start Date Expiration Date Visits Requested Visits Authorized [id number] Authorized PCP Requested Referral Auto-Generate d Referral 2 01/31/2023 99 99 Reason Comments Forms Reason Comments New Patient Evaluation Reason Comments Cirrhosis Specialty Diagnoses / Procedures Referred By Contac t Referred To Contact Diagnoses Cirrhosis of liver without ascites, unspecified hepatic cirrhosis type (HCC) Splenomegaly Procedures CONSULT TO HEPATOLOGY OFFICE/OUTPATIENT [facility] 60-74 MINUTES Yuniel Dahl DO [address] [place] [address] Referral ID Status Reason Start Date Expiration Date V isits Requested Visits Authorized [id number] Closed PCP Requested Referral 04/22/2022 04/22/2023 1 1 Reason Comments Rash Reason Comments Non-Chemotherapy Treatment Specialty Diagnoses / Procedures Referred By Contac t Referred To Contact Diagnoses Iron deficiency anemia due to chronic blood loss Iron malabsorption Yuniel Dahl, DO [address] [place] [address] [facility] [address] [place] [address] Referral ID Status Reason Start Date Expiration Date V isits Requested Visits Authorized [id number] Authorized 04/22/2022 07/21/2022 99 99 Reason Comments [...] & W/CONTRAST MATERIAL Kai Alvarado PA-C [address] [place] [id number] [facility] Referral ID Status Reason Start Date Expiration Date V isits Requested Visits Authorized [id number] Closed Auto-Generate d Referral 05/13/2022 06/12/2023 1 1 Reason Comments Radiology MRI Specialty Diagnoses / Procedures Referred By Contac t Referred To Contact MR IMAGING Diagnoses Cirrhosis of liver without ascites, unspecified hepatic cirrhosis type (HCC) Liver mass Splenomegaly Procedures MRI LIVER WO/W IVCON MRI ABDOMEN W/O & W/CONTRAST MATERIAL Kai Alvarado PA-Minnie [address] [place] [address] Mr Imaging Reason Comments Established Patient 4cm hcc Reason Onset Date Comments SPP General - Treatment Referral 08/10/2022 [employer] Insurance Authorization 08/10/2022 LORRAINE chacon Reason Onset Date Comments Simulation Request Form 08/15/2022 Reason Comments Patient Education Reason Onset Date Comments Refill Request 08/22/2022 Reason Onset Date Comments Refill Request 09/19/2022 Reason Comments [facility] [employer] - Other Reason Comments OT home health order Reason Comments [facility] Order Request Reason Comments [facility] Reason Comments Physical Therapy Plan of Care Reason Comments Established Patient Reason Onset Date Comments Refill Request 12/08/2022 Referral ID Status Reason Start Date Expiration Date V isits Requested Visits Authorized [id number] Authorized 12/09/2022 03/09/2023 99 99 Reason Comments Established Patient 3 month follow up Reason Comments Radiology US Specialty Diagnoses / Procedures Referred By Contac t Referred To Contact US IMAGING Diagnoses Monoclonal gammopathy Macrocytic anemia Thrombocytopenia (HCC) Procedures US ABD RT UPPER QUADRANT US ABDOMINAL REAL TIME W/IMAGE LIMITED Yuniel Dahl, DO [address] [place] [address] [place] [address] Referral ID Status Reason Start Date Expiration Date V isits Requested Visits Authorized [id number] Closed Auto-Generate d Referral 03/22/2022 04/21/2023 1 1 Specialty Diagnoses / Procedures Referred By Contac t Referred To Contact MR IMAGING Diagnoses Liver disease Procedures MRI LIVER WO/W IVCON MRI ABDOMEN W/O & W/[place] [address] [place] [address] [place] [address] Referral ID Status Reason Start Date Expiration Date V isits Requested Visits Authorized [id number] Closed Auto-Generate d Referral 12/16/2022 10/03/2023 1 1 Reason Comments Appointment Confirmation Care Teams (unrecognized sec tion and content) 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 Start Date End Date Ricky Bradley MD [address] [place], [place] [address] PCP - General 02/05/02 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 Start Date End Date Ricky Bradley MD [address] [place], [place] [id number] PCP - General 02/05/02 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 Start Date End Date Ricky Bradley MD [address] [place], [place] [id number] PCP - General 02/05/02 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 Start Date End Date Ricky Bradley MD [address] [facility] [place] [address] PCP - General 02/05/02 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 Start Date End Date Ricky Bradley MD [address] [facility] [place] [address] PCP - General 02/05/02 Ricky Bradley MD [address] [facility] [place] [address] Referring Internal Medicine 12/07/21 Ricky Bradley MD [address] [facility] [place] [address] Home Care Physician Internal Medicine 12/07/21 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 Start Date End Date Ricky Bradley MD [address] [facility] [place] [address] PCP - General 02/05/02 Ricky Bradley MD [address] [facility] [place] [address] Referring Internal Medicine 12/07/21 Ricky Bradley MD [address] [facility] [place] [address] Home Care Physician Internal Medicine 12/07/21 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 Start Date End Date Ricky Bradley MD [address] [facility] [place] [address] PCP - General 02/05/02 Ricky Bradley MD [address] [facility] [place] [address] Referring Internal Medicine 12/07/21 Ricky Bradley MD [address] [facility] [place] [address] Home Care Physician Internal Medicine 12/07/21 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 Start Date End Date Ricky Bradley MD [address] [facility] [place] [address] PCP - General 02/05/02 Ricky Bradley MD [address] [facility] [place] [address] Referring Internal Medicine 12/07/21 Ricky Bradley MD [address] [facility] [place] [address] Home Care Physician Internal Medicine 12/07/21 Leda Christensen, PT [address] [place] [address] Director Veterinary Post Acute Care 12/14/21 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 Start Date End Date Ricky Bradley MD [address] [facility] [place] [address] PCP - General 02/05/02 Ricky Bradley MD [address] [facility] [place] [address] Referring Internal Medicine 12/07/21 Ricky Bradley MD [address] [facility] [place] [address] Home Care Physician Internal Medicine 12/07/21 Leda Christensen, PT [address] [place] [address] Director Veterinary Post Acute Care 12/14/21 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 Start Date End Date Ricky Bradley MD [address] [facility] [place] [address] PCP - General 02/05/02 Ricky Bradley MD [address] [facility] [place] [address] Referring Internal Medicine 12/07/21 Ricky Bradley MD [address] [facility] [place] [address] Home Care Physician Internal Medicine 12/07/21 Leda Christensen, PT [address] [place] [address] Director Veterinary Post Acute Care 12/14/21 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 Start Date End Date Ricky Bradley MD [address] [facility] [place] [address] PCP - General 02/05/02 Ricky Bradley MD [address] [facility] [place] [address] Referring Internal Medicine 12/07/21 Ricky Bradley MD [address] [facility] [place] [address] Home Care Physician Internal Medicine 12/07/21 Leda Christensen, PT [address] [place] [address] Director Veterinary Post Acute Care 12/14/21 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 Start Date End Date Ricky Bradley MD [address] [facility] [place] [address] PCP - General 02/05/02 Ricky Bradley MD [address] [facility] [place] [address] Referring Internal Medicine 12/07/21 Ricky Bradley MD [address] [facility] [place] [address] Home Care Physician Internal Medicine 12/07/21 Leda Christensen, PT [address] [place] [address] Director Veterinary Post Acute Care 12/14/21 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 Start Date End Date Ricky Bradley MD [address] [facility] [place] [address] PCP - General 02/05/02 Ricky Bradley MD [address] [facility] [place] [address] Referring Internal Medicine 12/07/21 Ricky Bradley MD [address] [facility] [place] [address] Home Care Physician Internal Medicine 12/07/21 Leda Christensen, PT [address] [place] [address] Director Veterinary Post Acute Care 12/14/21 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 Start Date End Date Ricky Bradley MD [address] [facility] [place] [address] PCP - General 02/05/02 Ricky Bradley MD [address] [facility] [place] [address] Referring Internal Medicine 12/07/21 Ricky Bradley MD [address] [facility] [place] [address] Home Care Provider Internal Medicine 12/07/21 Leda Christensen, PT [address] [place] [address] Director Veterinary Post Acute Care 12/14/21 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 Start Date End Date Ricky Bradley MD [address] [facility] [place] [address] PCP - General 02/05/02 Ricky Bradley MD [address] [facility] [place] [address] Referring Internal Medicine 12/07/21 Ricky Bradley MD [address] [facility] [place] [address] Home Care Provider Internal Medicine 12/07/21 Leda Christensen, PT [address] [facility] [place] [address] Director Veterinary Post Acute Care 12/14/21 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 Start Date End Date Ricky Bradley MD [address] [facility] [place] [address] PCP - General 02/05/02 Ricky Bradley MD [address] [facility] [place] [address] Referring Internal Medicine 12/07/21 Ricky Bradley MD [address] [facility] [place] [address] Home Care Provider Internal Medicine 12/07/21 Leda Christensen, PT [address] [facility] [place] [address] Director Veterinary Post Acute Care 12/14/21 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 Start Date End Date Ricky Bradley MD [address] [facility] [place] [address] PCP - General 02/05/02 Ricky Bradley MD [address] [facility] [place] [address] Referring Internal Medicine 12/07/21 Ricky Bradley MD [address] [facility] [place] [address] Home Care Provider Internal Medicine 12/07/21 Leda Christensen, PT [address] [facility] [place] [address] Director Veterinary Post Acute Care 12/14/21 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 Start Date End Date Ricky Bradley MD [address] [facility] [place] [address] PCP - General 02/05/02 Ricky Bradley MD [address] [facility] [place] [address] Referring Internal Medicine 12/07/21 Ricky Bradley MD [address] [facility] [place] [address] Home Care Provider Internal Medicine 12/07/21 Leda Christensen, PT [address] [place] [address] Director Veterinary Post Acute Care 12/14/21 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 Start Date End Date Ricky Bradley MD [address] [facility] [place] [address] PCP - General 02/05/02 Ricky Bradley MD [address] [facility] [place] [address] Referring Internal Medicine 12/07/21 Ricky Bradley MD [address] [facility] [place] [address] Home Care Provider Internal Medicine 12/07/21 Leda Christensen, PT [address] [place] [address] Director Veterinary Post Acute Care 12/14/21 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 Start Date End Date Ricyk Bradley MD [address] [facility] [place] [address] PCP - General 02/05/02 Ricky Bradley MD [address] [facility] [place] [address] Referring Internal Medicine 12/07/21 Ricky Bradley MD [address] [facility] [place] [address] Home Care Provider Internal Medicine 12/07/21 Leda Christensen, PT [address] [facility] [place] [address] Director Veterinary Post Acute Care 12/14/21 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 Start Date End Date Ricky Bradley MD [address] [facility] [place] [address] PCP - General 02/05/02 Ricky Bradley MD [address] [facility] [place] [address] Referring Internal Medicine 12/07/21 Ricky Bradley MD [address] [facility] [place] [address] Home Care Provider Internal Medicine 12/07/21 Leda Christensen, PT [address] [facility] [place] [address] Director Veterinary Post Acute Care 12/14/21 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 Start Date End Date Ricky Bradley MD [address] [facility] [place] [address] PCP - General 02/05/02 Ricky Bradley MD [address] [facility] [place] [address] Referring Internal Medicine 12/07/21 Ricky Bradley MD [address] [facility] [place] [address] Home Care Provider Internal Medicine 12/07/21 Leda Christensen, PT [address] [place] [address] Director Veterinary Post Acute Care 12/14/21 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 Start Date End Date Ricky Bradley MD [address] [facility] [place] [address] PCP - General 02/05/02 Ricky Bradley MD [address] [facility] [place] [address] Referring Internal Medicine 12/07/21 Ricky Bradley MD [address] [facility] [place] [address] Home Care Provider Internal Medicine 12/07/21 Leda Christensen, PT [address] [place] [address] Director Veterinary Post Acute Care 12/14/21 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 Start Date End Date Ricky Bradley MD [address] [facility] [place] [address] PCP - General 02/05/02 Ricky Bradley MD [address] [facility] [place] [address] Referring Internal Medicine 12/07/21 Ricky Bradley MD [address] [facility] [place] [address] Home Care Provider Internal Medicine 12/07/21 Leda Christensen, PT [address] [place] [address] Director Veterinary Post Acute Care 12/14/21 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 Start Date End Date Ricky Bradley MD [address] [facility] [place] [address] PCP - General 02/05/02 Ricky Bradley MD [address] [facility] [place] [address] Referring Internal Medicine 12/07/21 Ricky Bradley MD [address] [facility] [place] [address] Home Care Provider Internal Medicine 12/07/21 Leda Christensen, PT [address] [place] [address] Director Veterinary Post Acute Care 12/14/21 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 Start Date End Date Ricky Bradley MD [address] [facility] [place] [address] PCP - General 02/05/02 Ricky Bradley MD [address] [facility] [place] [address] Referring Internal Medicine 12/07/21 Ricky Bradley MD [address] [facility] [place] [address] Home Care Provider Internal Medicine 12/07/21 Leda Christensen, PT [address] [place] [address] Director Veterinary Post Acute Care 12/14/21 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 Start Date End Date Ricky Bradley MD [address] [facility] [place] [address] PCP - General 02/05/02 Ricky Bradley MD [address] [facility] [place] [address] Referring Internal Medicine 12/07/21 Ricky Bradley MD [address] [facility] [place] [address] Home Care Provider Internal Medicine 12/07/21 Leda Christensen, PT [address] [place] [address] Director Veterinary Post Acute Care 12/14/21 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 Start Date End Date Ricky Bradley MD [address] [facility] [place] [address] PCP - General 02/05/02 Ricky Bradley MD [address] [facility] [place] [address] Referring Internal Medicine 12/07/21 Ricky Bradley MD [address] [facility] [place] [address] Home Care Provider Internal Medicine 12/07/21 Leda Christensen, PT [address] [place] [address] Director Veterinary Post Acute Care 12/14/21 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 Start Date End Date Ricky Bradley MD [address] [facility] [place] [address] PCP - General 02/05/02 Ricky Bradley MD [address] [facility] [place] [address] Referring Internal Medicine 12/07/21 Ricky Bradley MD [address] [facility] [place] [address] Home Care Provider Internal Medicine 12/07/21 Leda Christensen, PT [address] [place] [address] Director Veterinary Post Acute Care 12/14/21 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 Start Date End Date Ricky Bradley MD [address] [facility] [place] [address] PCP - General 02/05/02 Ricky Bradley MD [address] [facility] [place] [address] Referring Internal Medicine 12/07/21 Ricky Bradley MD [address] [facility] [place] [address] Home Care Provider Internal Medicine 12/07/21 Leda Christensen, PT [address] [facility] [place] [address] Director Veterinary Post Acute Care 12/14/21 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 Start Date End Date Ricky Bradley MD [address] [facility] [place] [address] PCP - General 02/05/02 Ricky Bradley MD [address] [facility] [place] [address] Referring Internal Medicine 12/07/21 Ricky Bradley MD [address] [facility] [place] [address] Home Care Provider Internal Medicine 12/07/21 Leda Christensen, PT [address] [place] [address] Director Veterinary Post Acute Care 12/14/21 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 Start Date End Date Ricky Bradley MD [address] [facility] [place] [address] PCP - General 02/05/02 Ricky Bradley MD [address] [facility] [place] [address] Referring Internal Medicine 12/07/21 Ricky Bradley MD [address] [facility] [place] [address] Home Care Provider Internal Medicine 12/07/21 Leda Christensen, PT [address] [place] [address] Director Veterinary Post Acute Care 12/14/21 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 Start Date End Date Ricky Bradley MD [address] [facility] [place] [address] PCP - General 02/05/02 Ricky Bradley MD [address] [facility] [place] [address] Referring Internal Medicine 12/07/21 Ricky Bradley MD [address] [facility] [place] [address] Home Care Provider Internal Medicine 12/07/21 Leda Christensen, PT [address] [place] [address] Director Veterinary Post Acute Care 12/14/21 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 Start Date End Date Ricky Bradley MD [address] [facility] [place] [address] PCP - General 02/05/02 Ricky Bradley MD [address] [facility] [place] [address] Referring Internal Medicine 12/07/21 Ricky Bradley MD [address] [facility] [place] [address] Home Care Provider Internal Medicine 12/07/21 Leda Christensen, PT [address] [place] [address] Director Veterinary Post Acute Care 12/14/21 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 Start Date End Date Ricky Bradley MD [address] [facility] [place] [address] PCP - General 02/05/02 Ricky Bradley MD [address] [facility] [place] [address] Referring Internal Medicine 12/07/21 Ricky Bradley MD [address] [facility] [place] [address] Home Care Provider Internal Medicine 12/07/21 Leda Christensen, PT [address] [facility] [place] [address] Director Veterinary Post Acute Care 12/14/21 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 Start Date End Date Ricky Bradley MD [address] [facility] [place] [address] PCP - General 02/05/02 Ricky Bradley MD [address] [facility] [place] [address] Referring Internal Medicine 12/07/21 Ricky Bradley MD [address] [facility] [place] [address] Home Care Provider Internal Medicine 12/07/21 Leda Christensen, PT [address] [facility] [place] [address] Director Veterinary Post Acute Care 12/14/21 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 Start Date End Date Ricky Bradley MD [address] [facility] [place] [address] PCP - General 02/05/02 Ricky Bradley MD [address] [facility] [place] [address] Referring Internal Medicine 12/07/21 Ricky Bradley MD [address] [facility] [place] [address] Home Care Provider Internal Medicine 12/07/21 Leda Christensen, PT [address] [facility] [place] [address] Director Veterinary Post Acute Care 12/14/21 Kai Alvarado PA-C [address] [place] [address] Gastroenterology 06/10/22 Ingrid Morales PA-C [address] [place] [address] General Surgery 06/10/22 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 Start Date End Date Ricky Bradley MD [address] [facility] [place] [address] PCP - General 02/05/02 Ricky Bradley MD [address] [facility] [place] [address] Referring Internal Medicine 12/07/21 Ricky Bradley MD [address] [place] [address] Home Care Provider Internal Medicine 12/07/21 Leda Christensen, PT [address] [place] [address] Director Veterinary Post Acute Care 12/14/21 Kai Alvarado PA-C [address] [place] [address] Gastroenterology 06/10/22 Ingrid Morales PA-C [address] [facility] [place] [address] General Surgery 06/10/22 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 Start Date End Date Ricky Bradley MD [address] [facility] [place] [address] PCP - General 02/05/02 Ricky Bradley MD [address] [place] [address] Referring Internal Medicine 12/07/21 Ricky Bradley MD [address] [place] [address] Home Care Provider Internal Medicine 12/07/21 Leda Christensen, PT [address] [place] [address] Director Veterinary Post Acute Care 12/14/21 Kai Alvarado PA-C [address] [place] [address] Gastroenterology 06/10/22 Ingrid Morales PA-C [address] [place] [address] General Surgery 06/10/22 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 Start Date End Date Ricky Bradley MD [address] [facility] [place] [address] PCP - General 02/05/02 Ricky Bradley MD [address] [place] [address] Referring Internal Medicine 12/07/21 Ricky Bradley MD [address] [place] [address] Home Care Provider Internal Medicine 12/07/21 Leda Christensen, PT [address] [place] [address] Director Veterinary Post Acute Care 12/14/21 Kai Alvarado PA-C [address] [place] [address] Gastroenterology 06/10/22 Ingrid Morales PA-C [address] [place] [address] General Surgery 06/10/22 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 Start Date End Date Ricky Bradley MD [address] [place] [address] PCP - General 02/05/02 Ricky Bradley MD [address] [place] [address] Referring Internal Medicine 12/07/21 Ricky Bradley MD [address] [place] [address] Home Care Provider Internal Medicine 12/07/21 Leda Christensen, PT [address] [place] [address] Director Veterinary Post Acute Care 12/14/21 Kai Alvarado PA-C [address] [place] [address] Gastroenterology 06/10/22 Ingrid Morales PA-C [address] [place] [address] General Surgery 06/10/22 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 Start Date End Date Ricky Bradley MD [address] [place] [address] PCP - General 02/05/02 Ricky Bradley MD [address] [place] [address] Referring Internal Medicine 12/07/21 Ricky Bradley MD [address] [place] [address] Home Care Provider Internal Medicine 12/07/21 Leda Christensen, PT [address] [place] [address] Director Veterinary Post Acute Care 12/14/21 Kai Alvarado PA-C [address] [place] [address] Gastroenterology 06/10/22 Ingrid Moarles PA-C [address] [place] [address] General Surgery 06/10/22 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 Start Date End Date Ricky Bradley MD [address] [facility] [place] [address] PCP - General 02/05/02 Ricky Bradley MD [address] [facility] [place] [address] Referring Internal Medicine 12/07/21 Ricky Bradley MD [address] [facility] [place] [address] Home Care Provider Internal Medicine 12/07/21 Leda Christensen, PT [address] [place] [address] Director Veterinary Post Acute Care 12/14/21 Kai Alvarado PA-C [address] [place] [address] Gastroenterology 06/10/22 Ingrid Morales PA-C [address] [place] [address] General Surgery 06/10/22 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 Start Date End Date Ricky Bradley MD [address] [facility] [place] [address] PCP - General 02/05/02 Ricky Bradley MD [address] [facility] [place] [address] Referring Internal Medicine 12/07/21 Ricky Bradley MD [address] [facility] [place] [address] Home Care Provider Internal Medicine 12/07/21 Leda Christensen, PT [address] [place] [address] Director Veterinary Post Acute Care 12/14/21 Kai Alvarado PA-C [address] [place] [address] Gastroenterology 06/10/22 Ingrid Morales PA-C [address] [place] [address] General Surgery 06/10/22 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 Start Date End Date Ricky Bradley MD [address] [place] [address] PCP - General 02/05/02 Ricky Bradley MD [address] [place] [address] Referring Internal Medicine 12/07/21 Ricky Bradley MD [address] [place] [address] Home Care Provider Internal Medicine 12/07/21 Leda Christensen, PT [address] [place] [address] Director Veterinary Post Acute Care 12/14/21 Kai Alvarado PA-C [address] [place] [address] Gastroenterology 06/10/22 Ingrid Morales PA-C [address] [place] [address] General Surgery 06/10/22 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 Start Date End Date Ricky Bradley MD [address] [place] [address] PCP - General 02/05/02 Ricky Bradley MD [address] [place] [address] Referring Internal Medicine 12/07/21 Ricky Bradley MD [address] [facility] [place] [address] Home Care Provider Internal Medicine 12/07/21 Leda Christensen, PT [address] [place] [address] Director Veterinary Post Acute Care 12/14/21 Kai Alvarado PA-C [address] [place] [address] Gastroenterology 06/10/22 Ingrid Morales PA-C [address] [place] [address] General Surgery 06/10/22 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 Start Date End Date Ricky Bradley MD [address] [facility] [place] [address] PCP - General 02/05/02 Ricky Bradley MD [address] [facility] [place] [address] Referring Internal Medicine 12/07/21 Ricky Bradley MD [address] [facility] [place] [address] Home Care Provider Internal Medicine 12/07/21 Leda Christensen, PT [address] [place] [address] Director Veterinary Post Acute Care 12/14/21 Kai Alvarado PA-C [address] [place] [address] Gastroenterology 06/10/22 Ingrid Morlaes PA-C [address] [place] [address] General Surgery 06/10/22 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 Start Date End Date Ricky Bradley MD [address] [facility] [place] [address] PCP - General 02/05/02 Ricky Bradley MD [address] [place] [address] Referring Internal Medicine 12/07/21 Ricky Bradley MD [address] [place] [address] Home Care Provider Internal Medicine 12/07/21 Leda Christensen, PT [address] [place] [address] Director Veterinary Post Acute Care 12/14/21 Kai Alvarado PA-C [address] [place] [address] Gastroenterology 06/10/22 Ingrid Morales PA-C [address] [place] [address] General Surgery 06/10/22 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 Start Date End Date Ricky Bradley MD [address] [place] [address] PCP - General 02/05/02 Ricky Bradley MD [address] [place] [address] Referring Internal Medicine 12/07/21 Ricky Bradley MD [address] [place] [address] Home Care Provider Internal Medicine 12/07/21 Leda Christensen, PT [address] [place] [address] Director Veterinary Post Acute Care 12/14/21 Kai Alvarado PA-C [address] [place] [address] Gastroenterology 06/10/22 Ingrid Morales PA-C [address] [place] [address] General Surgery 06/10/22 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 Start Date End Date Ricky Bradley MD [address] [facility] [place] [address] PCP - General 02/05/02 Ricky Bradley MD [address] [facility] [place] [address] Referring Internal Medicine 12/07/21 Ricky Bradley MD [address] [facility] [place] [address] Home Care Provider Internal Medicine 12/07/21 Leda Christensen, PT [address] [place] [address] Director Veterinary Post Acute Care 12/14/21 Kai Alvarado PA-C [address] [place] [address] Gastroenterology 06/10/22 Ingrid Morales PA-C [address] [place] [address] General Surgery 06/10/22 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 Start Date End Date Ricky Bradley MD [address] [facility] [place] [address] PCP - General 02/05/02 Ricky Bradley MD [address] [facility] [place] [address] Referring Internal Medicine 12/07/21 Ricky Bradley MD [address] [place] [address] Home Care Provider Internal Medicine 12/07/21 Leda Christensen, PT [address] [place] [address] Director Veterinary Post Acute Care 12/14/21 Kai Alvarado PA-C [address] [place] [address] Gastroenterology 06/10/22 Ingrid Morales PA-C [address] [place] [address] General Surgery 06/10/22 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 Start Date End Date Ricky Bradley MD [address] [place] [address] PCP - General 02/05/02 Ricky Bradley MD [address] [place] [address] Referring Internal Medicine 12/07/21 Ricky Bradley MD [address] [place] [address] Home Care Provider Internal Medicine 12/07/21 Leda Christensen, PT [address] [place] [address] Director Veterinary Post Acute Care 12/14/21 Kai Alvarado PA-C [address] [place] [address] Gastroenterology 06/10/22 Ingrid Morales PA-C [address] [place] [address] General Surgery 06/10/22 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 Start Date End Date Ricky Bradley MD [address] [place] [address] PCP - General 02/05/02 Ricky Bradley MD [address] [facility] [place] [address] Referring Internal Medicine 12/07/21 Ricky Bradley MD [address] [place] [address] Home Care Provider Internal Medicine 12/07/21 Leda Christensen, PT [address] [place] [address] Director Veterinary Post Acute Care 12/14/21 Kai Alvarado PA-C [address] [place] [address] Gastroenterology 06/10/22 Ingrid Morales PA-C [address] [place] [address] General Surgery 06/10/22 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 Start Date End Date Ricky Bradley MD [address] [place] [address] PCP - General 02/05/02 Ricky Bradley MD [address] [place] [address] Referring Internal Medicine 12/07/21 Ricky Bradley MD [address] [place] [address] Home Care Provider Internal Medicine 12/07/21 Leda Christensen, PT [address] [place] [address] Director Veterinary Post Acute Care 12/14/21 Kai Alvarado PA-C [address] [place] [place] [address] Gastroenterology 06/10/22 Ingrid Morales PA-C [address] [place] [address] General Surgery 06/10/22 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 Start Date End Date Ricky Bradley MD [address] [place] [address] PCP - General 02/05/02 Ricky Bradley MD [address] [place] [address] Referring Internal Medicine 12/07/21 Ricky Bradley MD [address] [place] [address] Home Care Provider Internal Medicine 12/07/21 Kai Alvarado PA-C [address] [place] [address] Gastroenterology 06/10/22 Ingrid Morales PA-C [address] [place] [address] General Surgery 06/10/22 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 Start Date End Date Bradley, Mauri, MD [address] [place] [address] PCP - General 02/05/02 Ricky Bradley MD [address] [place] [address] Referring Internal Medicine 12/07/21 Ricky Bradley MD [address] [place] [address] Home Care Provider Internal Medicine 12/07/21 Kai Alvarado PA-C [address] [place], [place] [id number] Gastroenterology 06/10/22 Ingrid Morales PA-C [address] [facility] [place] [address] General Surgery 06/10/22 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 Start Date End Date Ricky Bradley MD [address] [place] [address] PCP - General 02/05/02 Ricky Bradley MD [address] [place] [address] Referring Internal Medicine 12/07/21 Ricky Bradley MD [address] [place] [address] Home Care Provider Internal Medicine 12/07/21 Kai Alvarado PA-C [address] [place] [address] Gastroenterology 06/10/22 Ingrid Morales PA-C [address] [place], [place] [address] General Surgery 06/10/22 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 Start Date End Date Ricky Bradley MD [address] [place], [place] [address]771 PCP - General 02/05/02 Ricky Bradley MD [address] [facility] [place] [address] Referring Internal Medicine 12/07/21 Ricky Bradley MD [address] [place] [address] Home Care Provider Internal Medicine 12/07/21 Kai Alvarado PA-C [address] [place] [address] Gastroenterology 06/10/22 Ingrid Morales PA-C [address] [place] [address] General Surgery 06/10/22 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 Start Date End Date Ricky Bradley MD [address] [place] [address] PCP - General 02/05/02 Ricky Bradley MD [address] [place] [address] Referring Internal Medicine 12/07/21 Ricky Bradley MD [address] [place] [address] Home Care Provider Internal Medicine 12/07/21 Kai Alvarado PA-C [address] [place] [address] Gastroenterology 06/10/22 Ingrid Morales PA-C [address] [place] [address] General Surgery 06/10/22 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 Start Date End Date Ricky Bradley MD [address] [place] [address] PCP - General 02/05/02 Ricky Bradley MD [address] [place] [address] Referring Internal Medicine 12/07/21 Ricky Bradley MD [address] [place] [address] Home Care Provider Internal Medicine 12/07/21 Kai Alvarado PA-C [address] [facility] [place] [address] Gastroenterology 06/10/22 Ingrid Morales PA-C [address] [place] [address] General Surgery 06/10/22 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 Start Date End Date Ricky Bradley MD [address] [place] [address] PCP - General 02/05/02 Ricky Bradley MD [address] [place] [address] Referring Internal Medicine 12/07/21 Ricky Bradley MD [address] [place] [address] Home Care Provider Internal Medicine 12/07/21 Kai Alvarado PA-C [address] [facility], [place] [id number] Gastroenterology 06/10/22 Ingrid Morales PA-C [address] [place] [address] General Surgery 06/10/22 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 Start Date End Date Ricky Bradley MD [address] [place] [address] PCP - General 02/05/02 Ricky Bradley MD [address] [place] [address] Referring Internal Medicine 12/07/21 Ricky Bradley MD [address] [place] [address] Home Care Provider Internal Medicine 12/07/21 Kai Alvarado PA-C [address] [place] [address] Gastroenterology 06/10/22 Ingrid Morales PA-C [address] [place] [address] General Surgery 06/10/22 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 Start Date End Date Ricky Bradley MD [address] [place], [place] [address] PCP - General 02/05/02 Ricky Bradley MD [address] [place] [address] Referring Internal Medicine 12/07/21 Ricky Bradley MD [address] [place] [address] Home Care Provider Internal Medicine 12/07/21 Leda Christensen, PT [address] [place] [address] Director Veterinary Post Acute Care 12/14/21 12/05/22 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 Start Date End Date Ricky Bradley MD [address] [place] [address] PCP - General 02/05/02 Ricky Bradley MD [address] [place], [place] [address] Referring Internal Medicine 12/07/21 Ricky Bradley MD [address] [place], [place] [address] Home Care Provider Internal Medicine 12/07/21 Kai Alvarado PA-C [address] [facility] [place] [address] Gastroenterology 06/10/22 Ingrid Morales PA-C [address] [place], [place] [address] General Surgery 06/10/22 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 Start Date End Date Ricky Bradley MD [address] [place], [place] [address]41 PCP - General 02/05/02 Ricky Bradley MD [address] [place], [place] [address] Referring Internal Medicine 12/07/21 Ricky Bradley MD [address] [place], [place] [address] Home Care Provider Internal Medicine 12/07/21 Kai Alvarado PA-C [address] [place] [address] Gastroenterology 06/10/22 Ingrid Morales PA-C [address] [place], [place] [address] General Surgery 06/10/22 FOR RECORDS PERTAINING TO [...] BE BASED ON THE PRIMARY CLINICAL RECORDS. [employer] [facility]. provides no warranty or guarantee of the accuracy or completeness of information in this document.
[2023-04-07] MEDS: Azithromycin 500 MG in Dextrose 5%-Water (250mL Bag) 250 ML 250 MG IV ×2 (00:16→09:26)
[2023-04-07 00:32] LABS: Reflex Troponin-HS? (from REC) Y
--- NOTE | 2023-04-07 01:00 | VDLE_ITS ---
Reason For Study: Elevated D-dimer: 3.03 RIGHT LEFT GSV is normal. GSV is normal. CFV is compressible, spontaneous, phasic, CFV is compressible, spontaneous, phasic, competent and demonstrates normal competent, and demonstrates normal augmentation. augmentation. FV is compressible, spontaneous, phasic, FV is compressible, spontaneous, phasic, competent and demonstrates normal competent and demonstrates normal augmentation. augmentation. POP V is compressible, spontaneous, phasic, POP V is compressible, spontaneous, phasic, competent and demonstrates normal competent and demonstrates normal augmentation. augmentation. T/P Trunk is compressible. T/P Trunk is compressible. PTV is compressible. PTV is compressible. RT PerV is compressible. LT PerV is compressible. Procedure This is a venous duplex using B-mode, color flow and spectral Doppler. Exam performed portable in patient room. The study was technically difficult. A preliminary report was called and/or faxed to [facility]. VL/Venous Duplex US - Paul Extrem Interpretation Summary Deep veins of the bilateral lower extremities are patent and compressible segme ntally. There is no evidence of bilateral lower extremity deep vein thrombosis. The bilateral great saphenous veins appear patent and compressible segmentally. Ordering Physician: Yousif Ann Referring Physician: Ricky Bradley M.D. Performed By: Marisol Johnson RVT
[2023-04-07 01:09] LABS: AST(SGOT) 37 U/L (15-37); Alanine Aminotransfer ALT/SGPT 28 U/L (16-61); Alkaline Phosphatase 161 U/L (45-117); Bilirubin, Direct 0.62 mg/dL (0.00-0.30); Globulin 2.8 g/dL (2.2-4.2); Lipase 16 U/L (13-75); Protein, Total 4.8 g/dL (6.4-8.2); Troponin-I HS 33 pg/mL (3.0-78.0)
--- OUTSIDE RECORDS SUMMARY | 2023-04-07 01:17 | XMS RPT_ITS | CCD ---
Author Name Unknown Address [address] [place] [address] Organization [facility] Care Team Providers Care Tailer Out Name Role Phone LUIS CARLOS, ZENON E Unavailable Unavailable LUIS CARLOS, ZENON E Unavailable Unavailable LUIS CARLOS, ZENON Unavailable Unavailable LUIS CARLOS, ZENON Unavailable Unavailable LUIS CARLOS, ZENON Unavailable Unavailable LUIS CARLOS, ZENON Unavailable Unavailable Ivanauskas, Saulius Unavailable Unavailable Ivanauskas, Saulius Unavailable Unavailable Ricky Bardley Unavailable Unavailable Ricky Bradley MD Primary Care [...] Unavailable MASCI, YUNIEL Garrison Referring Unavailable [facility] Primary Care Unavailable DAMON GRAY Attending Unavailable CLEVE, KAI Referring Unavailable BRADLEY, MAURI Primary Care Unavailable MASCI, YUNIEL Garrison Attending Unavailable MASCI, YUNIEL Garrison Referring Unavailable BRADLEY, MAURI Attending Unavailable [facility]LEY, [facility] Primary Care Unavailable CLEVE, KAI Referring Unavailable BRADLEY, MAURI Primary Care Unavailable CLEVE, KAI Referring Unavailable BRADLEY, MAURI Primary Care Unavailable CLEVE, KAI Referring Unavailable [facility]LEY, [facility] Primary Care Unavailable BUBBA SYKES Attending Unavailable [...] Care Unavailable BUBBA SYKES Referring Unavailable BR[facility]LEY, [facility] Primary Care Unavailable BUBBA SYKES Attending Unavailable [...] Admitting Unavailable ANGIE SINGH Attending Unavailable BRADLEY, [facility] Primary Care Unavailable BRADLEY, MAURI Primary Care Unavailable MASCI, YUNIEL Garrison Referring Unavailable MASCI, YUNIEL Garrison Referring Unavailable BRADLEY, MAURI Primary Care Unavailable MASCI, YUNIEL Garrison Referring Unavailable BRADLEY, [facility] Primary Care Unavailable HALEY HAMPTON Attending Unavailable [...] Unavailable BRADLEY, MAURI Primary Care Unavailable MASCI, UYNIEL A Referring Unavailable BRADLEY, MAURI Primary Care [...] [ACETAMINOPHEN] Drug Allergy 7 Other: See Comments [facility] Other [place] Repository (20 sources) atorvastatin; Translations: [ATORVASTATIN CALCIUM] Drug Allergy [address] [facility] Repository (20 sources) Bee; Translations: [BEES] Propensity to adverse reactions (disorder) [address] [facility] Repository (20 sources) HYDROcodone; Translations: [HYDROCODONE] Drug Allergy 7 GI Upset [facility] Repository (20 sources) montelukast; Translations: [MONTELUKAST SODIUM] Drug Allergy [address] [facility] Repository (20 sources) [place]; Translations: [STRAWBERRIES] Propensity to adverse reactions to food (disorder) [address] [facility] Repository Medications Current Medications Medication [...] Drug Class(es) Dates Sig (Normalized) Sig (Original) [id number] 200 actuat albuterol 0.09 mg/actuat metered dose [...] disease (20 sources) Atherosclerotic heart disease of [place] coronary artery without angina pectoris; Translations: [Coronary [...] 177.8 cm Haley Hampton MD Work Phone: [facility] 02-02-2023 14:09-0400 Body temperature 97.81 [degF] Haley Hampton MD Work Phone: [facility] 02-02-2023 14:09-0400 Body weight 111.86 kg Haley Hampton MD Work Phone: [facility] 02-02-2023 14:09-0400 Diastolic blood pressure 89 mm[Hg] Haley Hampton MD Work Phone: [facility] 02-02-2023 14:09-0400 Heart rate 129 /min Haley Hampton MD Work Phone: [facility] 02-02-2023 14:09-0400 SaO2% (BldA) [Mass fraction] 98 % Haley Hampton MD Work Phone: [facility] 02-02-2023 14:09-0400 Systolic blood pressure 118 mm[Hg] Haley Hampton MD Work Phone: [facility] 01-02-2023 09:44-0400 Body temperature 97.5 [degF] Treatment Wstr Work Phone: [facility] 01-02-2023 09:44-0400 Diastolic blood pressure 79 mm[Hg] Treatment Wstr Work Phone: [facility] 01-02-2023 09:44-0400 Heart rate 100 /min Treatment Wstr Work Phone: [facility] 01-02-2023 09:44-0400 Systolic blood pressure 131 mm[Hg] Treatment Wstr Work Phone: [facility] 12-28-2022 11:50-0400 Body temperature 97 [degF] Treatment Wstr Work Phone: [facility] 12-28-2022 11:50-0400 Diastolic blood pressure 77 mm[Hg] Treatment Wstr Work Phone: [facility] 12-28-2022 11:50-0400 Heart rate 70 /min Treatment Wstr Work Phone: [facility] 12-28-2022 11:50-0400 Systolic blood pressure 127 mm[Hg] Treatment Wstr Work Phone: [facility] 12-26-2022 09:49-0400 Body temperature 97.9 [degF] Treatment Wstr Work Phone: [facility] 12-26-2022 09:49-0400 Diastolic blood pressure 89 mm[Hg] Treatment Wstr Work Phone: [facility] 12-26-2022 09:49-0400 Heart rate 71 /min Treatment Wstr Work Phone: [facility] 12-26-2022 09:49-0400 Systolic blood pressure 133 mm[Hg] Treatment Wstr Work Phone: [facility] 12-23-2022 09:57-0400 Body temperature 98.6 [degF] Treatment Wstr Work Phone: [facility] 12-23-2022 09:57-0400 Diastolic blood pressure 65 mm[Hg] Treatment Wstr Work Phone: [facility] 12-23-2022 09:57-0400 Heart rate 65 /min Treatment Wstr Work Phone: [facility] 12-23-2022 09:57-0400 SaO2% (BldA) [Mass fraction] 95 % Treatment Wstr Work Phone: [facility] 12-23-2022 09:57-0400 Systolic blood pressure 108 mm[Hg] Treatment Wstr Work Phone: [facility] 12-21-2022 09:45-0400 Body temperature 97.9 [degF] Treatment Wstr Work Phone: [facility] 12-21-2022 09:45-0400 Diastolic blood pressure 68 mm[Hg] Treatment Wstr Work Phone: [facility] 12-21-2022 09:45-0400 Heart rate 60 /min Treatment Wstr Work Phone: [facility] 12-21-2022 09:45-0400 SaO2% (BldA) [Mass fraction] 98 % Treatment Wstr Work Phone: [facility] 12-21-2022 09:45-0400 Systolic blood pressure 107 mm[Hg] Treatment Wstr Work Phone: [facility] 12-09-2022 15:37-0400 Body height 171 cm Yuniel Masci DO Work Phone: [facility] 12-09-2022 15:37-0400 Body temperature 97.9 [degF] Yuniel Masci DO Work Phone: [facility] 12-09-2022 15:37-0400 Body weight 109.77 kg Yuniel Masci DO Work Phone: [facility] 12-09-2022 15:37-0400 Diastolic blood pressure 63 mm[Hg] Yuniel Masci DO Work Phone: [facility] 12-09-2022 15:37-0400 Heart rate 70 /min Yuniel Masci DO Work Phone: [facility] 12-09-2022 15:37-0400 SaO2% (BldA) [Mass fraction] 100 % Yuniel Dahl DO Work Phone: [facility] 12-09-2022 15:37-0400 Systolic blood pressure 108 mm[Hg] Yuniel Dahl DO Work Phone: [facility] 08-19-2022 14:23-0400 Body temperature 97.9 [degF] Nurse Main Work Phone: [facility] 08-19-2022 14:23-0400 Body weight 107.32 kg Nurse Main Work Phone: [facility] 08-19-2022 14:23-0400 Diastolic blood pressure 65 mm[Hg] Nurse Main Work Phone: [facility] 08-19-2022 14:23-0400 Heart rate 75 /min Nurse Main Work Phone: [facility] 08-19-2022 14:23-0400 Respiratory rate 16 /min Nurse Main Work Phone: [facility] 08-19-2022 14:23-0400 SaO2% (BldA) [Mass fraction] 96 % Nurse Main Work Phone: [facility] 08-19-2022 14:23-0400 Systolic blood pressure 111 mm[Hg] Nurse Main Work Phone: [facility] 08-10-2022 09:03-0400 Body height 177.8 cm Haley Hampton MD Work Phone: [facility] 08-10-2022 09:03-0400 Body temperature 97.3 [degF] Haley Hampton MD Work Phone: [facility] 08-10-2022 09:03-0400 Body weight 111.95 kg Haley Hampton MD Work Phone: [facility] 08-10-2022 09:03-0400 Diastolic blood pressure 60 mm[Hg] Haley Hampton MD Work Phone: [facility] 08-10-2022 09:03-0400 Heart rate 77 /min Haley Hampton MD Work Phone: [facility] 08-10-2022 09:03-0400 SaO2% (BldA) [Mass fraction] 98 % Haley Hampton MD Work Phone: [facility] 08-10-2022 09:03-0400 Systolic blood pressure 113 mm[Hg] Haley Hampton MD Work Phone: [facility] 08-03-2022 10:11-0400 Body weight 108.86 kg Bubba Sykes MD Work Phone: [facility] 08-03-2022 10:11-0400 Diastolic blood pressure 58 mm[Hg] Bubba Sykes MD Work Phone: [facility] 08-03-2022 10:11-0400 Heart rate 70 /min Bubba Sykes MD Work Phone: [facility] 08-03-2022 10:11-0400 Respiratory rate 18 /min Bubba Sykes MD Work Phone: [facility] 08-03-2022 10:11-0400 SaO2% (BldA) [Mass fraction] 89 % Bubba Sykes MD Work Phone: [facility] 08-03-2022 10:11-0400 Systolic blood pressure 106 mm[Hg] Bubba Sykes MD Work Phone: [facility] 07-04-2022 18:59-0400 Body weight 109.32 kg Ricky Bradley MD Work Phone: [facility] 07-04-2022 18:59-0400 Diastolic blood pressure 72 mm[Hg] Ricky Bradley MD Work Phone: [facility] 07-04-2022 18:59-0400 Heart rate 72 /min Ricky Bradley MD Work Phone: [facility] 07-04-2022 18:59-0400 SaO2% (BldA) [Mass fraction] 100 % Ricky Bradley MD Work Phone: [facility] 07-04-2022 18:59-0400 Systolic blood pressure 134 mm[Hg] Ricky Bradley MD Work Phone: [facility] 06-24-2022 14:21-0500 Body temperature 98.01 [degF] Bubba Son MD Work Phone: [facility] 06-24-2022 14:21-0500 Body weight 108.23 kg Bubba Son MD Work Phone: [facility] 06-24-2022 14:21-0500 Diastolic blood pressure 82 mm[Hg] Bubba Son MD Work Phone: [facility] 06-24-2022 14:21-0500 Heart rate 92 /min Bubba Son MD Work Phone: [facility] 06-24-2022 14:21-0500 Respiratory rate 18 /min Bubba Son MD Work Phone: [facility] 06-24-2022 14:21-0500 SaO2% (BldA) [Mass fraction] 98 % Bubba Son MD Work Phone: [facility] 06-24-2022 14:21-0500 Systolic blood pressure 132 mm[Hg] Bubba Son MD Work Phone: [facility] 06-10-2022 09:18-0500 Body temperature 97.3 [degF] Yuniel Dahl DO Work Phone: [facility] 06-10-2022 09:18-0500 Body weight 108.18 kg Yuniel Banuelosi DO Work Phone: [facility] 06-10-2022 09:18-0500 Diastolic blood pressure 72 mm[Hg] Yuniel Vini DO Work Phone: [facility] 06-10-2022 09:18-0500 Heart rate 66 /min Yuniel Banuelosi DO Work Phone: [facility] 06-10-2022 09:18-0500 SaO2% (BldA) [Mass fraction] 99 % Yuniel Dahl DO Work Phone: [facility] 06-10-2022 09:18-0500 Systolic blood pressure 122 mm[Hg] Yuniel Dahl DO Work Phone: [facility] 06-01-2022 15:16-0500 Body temperature 98.2 [degF] Treatment Wstr Work Phone: [facility] 06-01-2022 15:16-0500 Diastolic blood pressure 92 mm[Hg] Treatment Wstr Work Phone: [facility] 06-01-2022 15:16-0500 Heart rate 75 /min Treatment Wstr Work Phone: [facility] 06-01-2022 15:16-0500 Respiratory rate 16 /min Treatment Wstr Work Phone: [facility] 06-01-2022 15:16-0500 SaO2% (BldA) [Mass fraction] 100 % Treatment Wstr Work Phone: [facility] 06-01-2022 15:16-0500 Systolic blood pressure 129 mm[Hg] Treatment Wstr Work Phone: [facility] 05-30-2022 15:00-0500 Body temperature 96.91 [degF] Treatment Wstr Work Phone: [facility] 05-30-2022 15:00-0500 Diastolic blood pressure 74 mm[Hg] Treatment Wstr Work Phone: [facility] 05-30-2022 15:00-0500 Heart rate 73 /min Treatment Wstr Work Phone: [facility] 05-30-2022 15:00-0500 Respiratory rate 18 /min Treatment Wstr Work Phone: [facility] 05-30-2022 15:00-0500 SaO2% (BldA) [Mass fraction] 100 % Treatment Wstr Work Phone: [facility] 05-30-2022 15:00-0500 Systolic blood pressure 131 mm[Hg] Treatment Wstr Work Phone: [facility] 05-27-2022 14:37-0500 Body temperature 97.2 [degF] Treatment Wstr Work Phone: [facility] 05-27-2022 14:37-0500 Diastolic blood pressure 74 mm[Hg] Treatment Wstr Work Phone: [facility] 05-27-2022 14:37-0500 Heart rate 91 /min Treatment Wstr Work Phone: [facility] 05-27-2022 14:37-0500 Respiratory rate 16 /min Treatment Wstr Work Phone: [facility] 05-27-2022 14:37-0500 SaO2% (BldA) [Mass fraction] 98 % Treatment Wstr Work Phone: [facility] 05-27-2022 14:37-0500 Systolic blood pressure 136 mm[Hg] Treatment Wstr Work Phone: [facility] 05-25-2022 15:01-0500 Body temperature 97.59 [degF] Treatment Wstr Work Phone: [facility] 05-25-2022 15:01-0500 Diastolic blood pressure 90 mm[Hg] Treatment Wstr Work Phone: [facility] 05-25-2022 15:01-0500 Heart rate 88 /min Treatment Wstr Work Phone: [facility] 05-25-2022 15:01-0500 Respiratory rate 18 /min Treatment Wstr Work Phone: [facility] 05-25-2022 15:01-0500 SaO2% (BldA) [Mass fraction] 99 % Treatment Wstr Work Phone: [facility] 05-25-2022 15:01-0500 Systolic blood pressure 151 mm[Hg] Treatment Wstr Work Phone: [facility] 05-18-2022 15:03-0500 Body temperature 97.2 [degF] Treatment Wstr Work Phone: [facility] 05-18-2022 15:03-0500 Diastolic blood pressure 72 mm[Hg] Treatment Wstr Work Phone: [facility] 05-18-2022 15:03-0500 Heart rate 87 /min Treatment Wstr Work Phone: [facility] 05-18-2022 15:03-0500 Systolic blood pressure 144 mm[Hg] Treatment Wstr Work Phone: [facility] 05-16-2022 15:30-0500 Body temperature 96.6 [degF] Treatment Wstr Work Phone: [facility] 05-16-2022 15:30-0500 Diastolic blood pressure 77 mm[Hg] Treatment Wstr Work Phone: [facility] 05-16-2022 15:30-0500 Heart rate 86 /min Treatment Wstr Work Phone: [facility] 05-16-2022 15:30-0500 Respiratory rate 16 /min Treatment Wstr Work Phone: [facility] 05-16-2022 15:30-0500 SaO2% (BldA) [Mass fraction] 98 % Treatment Wstr Work Phone: [facility] 05-16-2022 15:30-0500 Systolic blood pressure 147 mm[Hg] Treatment Wstr Work Phone: [facility] 05-11-2022 14:54-0500 Body temperature 97.11 [degF] Treatment Wstr Work Phone: [facility] 05-11-2022 14:54-0500 Diastolic blood pressure 69 mm[Hg] Treatment Wstr Work Phone: [facility] 05-11-2022 14:54-0500 Heart rate 70 /min Treatment Wstr Work Phone: [facility] 05-11-2022 14:54-0500 SaO2% (BldA) [Mass fraction] 96 % Treatment Wstr Work Phone: [facility] 05-11-2022 14:54-0500 Systolic blood pressure 126 mm[Hg] Treatment Wstr Work Phone: [facility] 05-06-2022 14:55-0500 Body temperature 97.81 [degF] Treatment Wstr Work Phone: [facility] 05-06-2022 14:55-0500 Diastolic blood pressure 68 mm[Hg] Treatment Wstr Work Phone: [facility] 05-06-2022 14:55-0500 Heart rate 61 /min Treatment Wstr Work Phone: [facility] 05-06-2022 14:55-0500 SaO2% (BldA) [Mass fraction] 100 % Treatment Wstr Work Phone: [facility] 05-06-2022 14:55-0500 Systolic blood pressure 128 mm[Hg] Treatment Wstr Work Phone: [facility] 05-05-2022 15:19-0500 Body temperature 97.2 [degF] Ricky Bradley MD Work Phone: [facility] 05-05-2022 15:19-0500 Body weight 111.58 kg Ricky Bradley MD Work Phone: [facility] 05-05-2022 15:19-0500 Diastolic blood pressure 64 mm[Hg] Ricky Bradley MD Work Phone: [facility] 05-05-2022 15:19-0500 Heart rate 76 /min Ricky Bradley MD Work Phone: [facility] 05-05-2022 15:19-0500 Respiratory rate 16 /min Ricky Bradley MD Work Phone: [facility] 05-05-2022 15:19-0500 Systolic blood pressure 114 mm[Hg] Ricky Bradley MD Work Phone: [facility] 05-02-2022 13:19-0500 Body height 170.2 cm Ingrid Morales PA-C Work Phone: [facility] 05-02-2022 13:19-0500 Body temperature 98.91 [degF] Ingrid Andrew PA-C Work Phone: [facility] 05-02-2022 13:19-0500 Body weight 114.31 kg Ingrid Andrew PA-C Work Phone: [facility] 05-02-2022 13:19-0500 Diastolic blood pressure 80 mm[Hg] Ingrid Andrew PA-C Work Phone: [facility] 05-02-2022 13:19-0500 Heart rate 110 /min Ingrid [place] PA-C Work Phone: [facility] 05-02-2022 13:19-0500 SaO2% (BldA) [Mass fraction] 94 % Ingrid [place] [address] [place] PA-C Work Phone: [facility] 05-02-2022 13:19-0500 Systolic blood pressure 140 mm[Hg] Ingrid Andrew PA-C Work Phone: [facility] 03-22-2022 15:04-0500 Body temperature 98.01 [degF] Yuniel Masci DO Work Phone: [facility] 03-22-2022 15:04-0500 Body weight 110.9 kg Yuniel Masci DO Work Phone: [facility] 03-22-2022 15:04-0500 Diastolic blood pressure 81 mm[Hg] Yuniel Masci DO Work Phone: [facility] 03-22-2022 15:04-0500 Heart rate 93 /min Yuniel Masci DO Work Phone: [facility] 03-22-2022 15:04-0500 Systolic blood pressure 134 mm[Hg] Yuniel Masci DO Work Phone: [facility] 01-31-2022 13:57-0400 Body temperature 97.39 [degF] Ricky Bradley MD Work Phone: [facility] 01-31-2022 13:57-0400 Body weight 112.95 kg Ricky Bradley MD Work Phone: [facility] 01-31-2022 13:57-0400 Diastolic blood pressure 56 mm[Hg] Ricky Bradley MD Work Phone: [facility] 01-31-2022 13:57-0400 Heart rate 64 /min Ricky Bradley MD Work Phone: [facility] 01-31-2022 13:57-0400 Respiratory rate 16 /min Ricky Bradley MD Work Phone: [facility] 01-31-2022 13:57-0400 Systolic blood pressure 108 mm[Hg] Ricky Bradley MD Work Phone: [facility] 01-26-2022 10:50-0400 Body temperature 97.81 [degF] Leda Traylorman-Pedersen PT Work Phone: [facility] 01-26-2022 10:50-0400 Diastolic blood pressure 58 mm[Hg] Leda Traylorman-Pedersen PT Work Phone: [facility] 01-26-2022 10:50-0400 Heart rate 62 /min Leda Halderman-Pedersen PT Work Phone: [facility] 01-26-2022 10:50-0400 Respiratory rate 16 /min Leda Halderman-Pedersen PT Work Phone: [facility] 01-26-2022 10:50-0400 SaO2% (BldA) [Mass fraction] 99 % Leda Cassidyderman-Pedersen PT Work Phone: [facility] 01-26-2022 10:50-0400 Systolic blood pressure 112 mm[Hg] Leda Halderman-Pedersen PT Work Phone: [facility] 01-24-2022 09:59-0400 Body temperature 98.6 [degF] Raquel Shelly CUT OUT MACHINE OPERATOR Work Phone: [facility] 01-24-2022 09:59-0400 Diastolic blood pressure 60 mm[Hg] Raquel Shelly CUT OUT MACHINE OPERATOR Work Phone: [facility] 01-24-2022 09:59-0400 Heart rate 68 /min Raquel Shelly CUT OUT MACHINE OPERATOR Work Phone: [facility] 01-24-2022 09:59-0400 Respiratory rate 18 /min Raquel Shelly CUT OUT MACHINE OPERATOR Work Phone: [facility] 01-24-2022 09:59-0400 SaO2% (BldA) [Mass fraction] 99 % Raquel Shelly CUT OUT MACHINE OPERATOR Work Phone: [facility] 01-24-2022 09:59-0400 Systolic blood pressure 112 mm[Hg] Raquel Shelly CUT OUT MACHINE OPERATOR Work Phone: [facility] 01-21-2022 14:40-0400 Body temperature 98.01 [degF] Raquel Shelly CUT OUT MACHINE OPERATOR Work Phone: [facility] 01-21-2022 14:40-0400 Diastolic blood pressure 60 mm[Hg] Raquel Shelly CUT OUT MACHINE OPERATOR Work Phone: [facility] 01-21-2022 14:40-0400 Heart rate 64 /min Raquel Shelly CUT OUT MACHINE OPERATOR Work Phone: [facility] 01-21-2022 14:40-0400 Respiratory rate 18 /min Raquel Shelly CUT OUT MACHINE OPERATOR Work Phone: [facility] 01-21-2022 14:40-0400 SaO2% (BldA) [Mass fraction] 98 % Raquel Shelly CUT OUT MACHINE OPERATOR Work Phone: [facility] 01-21-2022 14:40-0400 Systolic blood pressure 110 mm[Hg] Raquel Shelly CUT OUT MACHINE OPERATOR Work Phone: [facility] 01-13-2022 11:50-0400 Body temperature 98.2 [degF] Jacquelin Jimenez PT Work Phone: [facility] 01-13-2022 11:50-0400 Diastolic blood pressure 60 mm[Hg] Jacquelin Jimenez PT Work Phone: [facility] 01-13-2022 11:50-0400 Heart rate 68 /min Jacquelin Jimenez PT Work Phone: [facility] 01-13-2022 11:50-0400 Respiratory rate 16 /min Jacquelin Jimenez PT Work Phone: [facility] 01-13-2022 11:50-0400 SaO2% (BldA) [Mass fraction] 100 % Jacquelin Merrittox PT Work Phone: [facility] 01-13-2022 11:50-0400 Systolic blood pressure 120 mm[Hg] Jacquelin Jimenez PT Work Phone: [facility] 01-11-2022 09:04-0400 Body temperature 97.39 [degF] Raquel Shelly CUT OUT MACHINE OPERATOR Work Phone: [facility] 01-11-2022 09:04-0400 Diastolic blood pressure 64 mm[Hg] Raquel Shelly CUT OUT MACHINE OPERATOR Work Phone: [facility] 01-11-2022 09:04-0400 Heart rate 63 /min Raquel Shelly CUT OUT MACHINE OPERATOR Work Phone: [facility] 01-11-2022 09:04-0400 Respiratory rate 18 /min Raquel Shelly CUT OUT MACHINE OPERATOR Work Phone: [facility] 01-11-2022 09:04-0400 SaO2% (BldA) [Mass fraction] 97 % Raquel Shelly CUT OUT MACHINE OPERATOR Work Phone: [facility] 01-11-2022 09:04-0400 Systolic blood pressure 112 mm[Hg] Raquel Shelly CUT OUT MACHINE OPERATOR Work Phone: [facility] 01-05-2022 10:00-0400 Diastolic blood pressure 60 mm[Hg] Leda Christensen PT Work Phone: [facility] 01-05-2022 10:00-0400 Heart rate 78 /min Leda Christensen PT Work Phone: [facility] 01-05-2022 10:00-0400 Respiratory rate 18 /min Leda Christensen PT Work Phone: [facility] 01-05-2022 10:00-0400 SaO2% (BldA) [Mass fraction] 99 % Leda Christensen PT Work Phone: [facility] 01-05-2022 10:00-0400 Systolic blood pressure 108 mm[Hg] Leda Christensen PT Work Phone: [facility] 01-05-2022 09:10-0400 Body temperature 97.9 [degF] Leda Christensen PT Work Phone: [facility] 01-03-2022 14:13-0400 Body temperature 97.39 [degF] Raquel Shelly CUT OUT MACHINE OPERATOR Work Phone: [facility] 01-03-2022 14:13-0400 Diastolic blood pressure 68 mm[Hg] Raquel Shelly CUT OUT MACHINE OPERATOR Work Phone: [facility] 01-03-2022 14:13-0400 Heart rate 76 /min Raquel Shelly CUT OUT MACHINE OPERATOR Work Phone: [facility] 01-03-2022 14:13-0400 Respiratory rate 18 /min Raquel Shelly CUT OUT MACHINE OPERATOR Work Phone: [facility] 01-03-2022 14:13-0400 SaO2% (BldA) [Mass fraction] 99 % Raquel Shelly CUT OUT MACHINE OPERATOR Work Phone: [facility] 01-03-2022 14:13-0400 Systolic blood pressure 118 mm[Hg] Raquel Shelly CUT OUT MACHINE OPERATOR Work Phone: [facility] 12-31-2021 02:30-0400 Body temperature 97.3 [degF] Leda Christensen PT Work Phone: [facility] 12-31-2021 02:30-0400 Diastolic blood pressure 50 mm[Hg] Leda Christensen PT Work Phone: [facility] 12-31-2021 02:30-0400 Heart rate 55 /min Leda Christensen PT Work Phone: [facility] 12-31-2021 02:30-0400 Respiratory rate 16 /min Leda Christensen PT Work Phone: [facility] 12-31-2021 02:30-0400 SaO2% (BldA) [Mass fraction] 99 % Leda Christensen PT Work Phone: [facility] 12-31-2021 02:30-0400 Systolic blood pressure 100 mm[Hg] Leda Christensen PT Work Phone: [facility] 12-28-2021 14:04-0400 Body temperature 98.2 [degF] Raquel Shelly CUT OUT MACHINE OPERATOR Work Phone: [facility] 12-28-2021 14:04-0400 Diastolic blood pressure 78 mm[Hg] Raquel Shelly CUT OUT MACHINE OPERATOR Work Phone: [facility] 12-28-2021 14:04-0400 Heart rate 78 /min Raquel Shelly CUT OUT MACHINE OPERATOR Work Phone: [facility] 12-28-2021 14:04-0400 Respiratory rate 18 /min Raquel Shelly CUT OUT MACHINE OPERATOR Work Phone: [facility] 12-28-2021 14:04-0400 SaO2% (BldA) [Mass fraction] 97 % Raquel Shelly CUT OUT MACHINE OPERATOR Work Phone: [facility] 12-28-2021 14:04-0400 Systolic blood pressure 134 mm[Hg] Raquel Shelly CUT OUT MACHINE OPERATOR Work Phone: [facility] 12-23-2021 10:35-0400 Body temperature 97.81 [degF] Raquel Shelly CUT OUT MACHINE OPERATOR Work Phone: [facility] 12-23-2021 10:35-0400 Diastolic blood pressure 70 mm[Hg] Raquel Shelly CUT OUT MACHINE OPERATOR Work Phone: [facility] 12-23-2021 10:35-0400 Heart rate 56 /min Raquel Shelly CUT OUT MACHINE OPERATOR Work Phone: [facility] 12-23-2021 10:35-0400 Respiratory rate 18 /min Raquel Shelly CUT OUT MACHINE OPERATOR Work Phone: [facility] 12-23-2021 10:35-0400 SaO2% (BldA) [Mass fraction] 98 % Raquel Cobosion CUT OUT MACHINE OPERATOR Work Phone: [facility] 12-23-2021 10:35-0400 Systolic blood pressure 126 mm[Hg] Raquel Cobosion CUT OUT MACHINE OPERATOR Work Phone: [facility] 12-21-2021 10:30-0400 Body temperature 97.3 [degF] Leda Halderman-Pedersen PT Work Phone: [facility] 12-21-2021 10:30-0400 Diastolic blood pressure 60 mm[Hg] Leda Halderman-Pedersen PT Work Phone: [facility] 12-21-2021 10:30-0400 Heart rate 68 /min Leda Halderman-Pedersen PT Work Phone: [facility] 12-21-2021 10:30-0400 Respiratory rate 18 /min Leda Halderman-Pedersen PT Work Phone: [facility] 12-21-2021 10:30-0400 SaO2% (BldA) [Mass fraction] 99 % Leda Halderman-Pedersen PT Work Phone: [facility] 12-21-2021 10:30-0400 Systolic blood pressure 110 mm[Hg] Leda Halderman-Pedersen PT Work Phone: [facility] 12-17-2021 15:20-0400 Body temperature 97.9 [degF] Leda Halderman-Pedersen PT Work Phone: [facility] 12-17-2021 15:20-0400 Diastolic blood pressure 64 mm[Hg] Leda Halderman-Pedersen PT Work Phone: [facility] 12-17-2021 15:20-0400 Heart rate 73 /min Leda Halderman-Pedersen PT Work Phone: [facility] 12-17-2021 15:20-0400 Respiratory rate 18 /min Leda Halderman-Pedersen PT Work Phone: [facility] 12-17-2021 15:20-0400 SaO2% (BldA) [Mass fraction] 99 % Leda Fermin PT Work Phone: [facility] 12-17-2021 15:20-0400 Systolic blood pressure 112 mm[Hg] Leda Christensen PT Work Phone: [facility] 11-04-2021 09:46-0400 Body temperature 97.59 [degF] Ricky Bradley MD Work Phone: [facility] 11-04-2021 09:46-0400 Body weight 113.4 kg Ricky Bradley MD Work Phone: [facility] 11-04-2021 09:46-0400 Diastolic blood pressure 66 mm[Hg] Ricky Bradley MD Work Phone: [facility] 11-04-2021 09:46-0400 Heart rate 60 /min Ricky Bradley MD Work Phone: [facility] 11-04-2021 09:46-0400 Respiratory rate 16 /min Ricky Bradley MD Work Phone: [facility] 11-04-2021 09:46-0400 Systolic blood pressure 130 mm[Hg] Ricky Bradley MD Work Phone: [facility] 07-06-2021 12:24-0400 Diastolic blood pressure 76 mm[Hg] Mi Nurse Work Phone: [facility] 07-06-2021 12:24-0400 Heart rate 62 /min Mi Nurse Work Phone: [facility] 07-06-2021 12:24-0400 Systolic blood pressure 128 mm[Hg] Mi Nurse Work Phone: [facility] Encounters Encounter Date Encounter Type Care Provider Facility Start: 03-17-2023 Telephone encounter Herminia Begum RNescalator operator Procedures Date Procedure Procedure Detail Performing Clinician [...] Detail Author Start: 12-27-2026 Urine microalbumin profile [facility] Immunizations Immunization Date Immunization Notes Care Provider Fa cili 02-14-2022 influenza, high dose seasonal, preservative-free Ricky Bradley MD Work Phone: [facility] Work Phone: 02-14-2022 influenza virus vacc ine, unspecified formulation Treatment Wstr Work Phone: [facility] 04-14-2021 COVID-19 vaccine, ag e 12+ yr (PFIZER-BIONTECH - PURPLE TOP) Mi Nurse Work Phone: [facility] Work Phone: 04-07-2021 influenza (aIIV4) vaccine, age 65+ yr, quadrivalent, PF (FLUAD QUADRIVALENT) Mi Nurse Work Phone: [facility] Work Phone: 06-02-2020 COVID-19 vaccine, ag e 12+ yr (PFIZER-BIONTECH - PURPLE TOP) Mi Nurse Work Phone: [facility] Work Phone: 05-12-2020 COVID-19 vaccine, ag e 12+ yr (PFIZER-BIONTECH - PURPLE TOP) Mi Nurse Work Phone: [facility] Work Phone: 02-27-2020 influenza, high dose seasonal, preservative-free Mi Nurse Work Phone: [facility] Work Phone: 02-18-2019 influenza, high dose seasonal, preservative-free Mi Nurse Work Phone: [facility] 01-15-2019 influenza, seasonal, injectable, preservative free Mi Nurse Work Phone: [facility] Work Phone: 03-02-2018 zoster vaccine recombinant Mi Nurse Work Phone: [facility] Work Phone: 02-19-2018 influenza, high dose seasonal, preservative-free Mi Nurse Work Phone: [facility] 01-01-2018 zoster vaccine recombinant Mi Nurse Work Phone: [facility] Work Phone: 12-15-2017 pneumococcal polysaccharide vaccine, 23 valent Ricky Bradley MD Work Phone: [facility] Work Phone: 12-27-2016 influenza, high dose seasonal, preservative-free Mi Nurse Work Phone: [facility] 12-27-2016 pneumococcal conjuga te vaccine, 13 valbruna Bradley MD Work Phone: [facility] Work Phone: 12-27-2016 tetanus and diphther ia toxoids, adsorbed, preservative free, for adult use (5 Lf of tetanus toxoid and 2 Lf of diphtheria toxoid) Ia Nurse Work Phone: [facility] 12-27-2016 tetanus toxoid, redu magali diphtheria toxoid, and acellular pertussis vaccine, adsorbed Mi Nurse Work Phone: [facility] Work Phone: 02-11-2015 influenza, high dose seasonal, preservative-free Mi Nurse Work Phone: [facility] 01-15-2015 pneumococcal conjuga te vaccine, 13 valbruna Bradley MD Work Phone: [facility] Work Phone: 05-28-2014 pneumococcal conjuga te vaccine, 13 valent Mi Nurse Work Phone: [facility] 04-09-2014 influenza, seasonal, injectable Mi Nurse Work Phone: [facility] 02-27-2013 influenza virus vacc ine, unspecified formulation Mi Nurse Work Phone: [facility] 01-22-2011 influenza virus vacc ine, unspecified formulation Mi Nurse Work Phone: [facility] Work Phone: 04-23-2008 influenza virus vacc ine, unspecified formulation Mi Nurse Work Phone: [facility] Work Phone: 03-14-2007 influenza virus vacc ine, unspecified formulation Mi Nurse Work Phone: [facility] 10-03-2006 tetanus and diphther ia toxoids, adsorbed, preservative free, for adult use (2 Lf of tetanus toxoid and 2 Lf of diphtheria toxoid) Mi Nurse Work Phone: [facility] 02-20-2006 influenza virus vacc ine, unspecified formulation Mi Nurse Work Phone: [facility] Work Phone: 02-20-2006 pneumococcal polysaccharide vaccine, 23 valent Mi Nurse Work Phone: [facility] Work Phone: 02-24-2005 influenza virus vacc ine, unspecified formulation Ia Nurse Work Phone: [facility] Work Phone: Payers Date Payer Category Payer Unknown MMO MMO MEDICARE SUPPLEMENT [id number] 2019-Present [phone] [address] [place] [address] Indemnity [id number] 2019 Unknown MMO MMO MEDICARE SUPPLEMENT [id number] 2019-Present [phone] [address] [place] [address] Indemnity [id number] 2019 Unknown [id number] 2004 Medicare 2004 Medicare MEDICARE MEDICAR E A AND B [id number] 2004-Present [phone] [place] [address] Medicare [id number] 2004 Medicare [id number] Medicare [id number] Social History Date Type Detail Facility [facility] Work Phone: Start: 07-06-2021 End: 03-13-2023 Alcohol intake Current non-drinker of alcohol (finding) [facility] Start: 05-07-2021 End: 05-05-2022 History SDOH Alcohol Frequency 1 [facility] Start: 05-07-2021 End: 05-05-2022 History SDOH Social Connections Phone 5 [facility] Start: 05-07-2021 End: 05-05-2022 History SDOH Social Connections Get Together 4 [facility] Start: 05-07-2021 End: 05-05-2022 History SDOH Social Connections Mosque 3 [facility] Start: 1940 Sex Assigned At Not on file C [facility] Start: 10-25-2021 End: 02-28-2022 Exposure to SARS-CoV-2 (event) Not sure [facility] Work Phone: Start: 05-05-2022 History SDOH Alcohol Std Drinks 0 [facility] Start: 05-05-2022 History SDOH Social Connections Get Together 2 [facility] Start: 05-05-2022 History SDOH Social Connections Membership 98 [facility] Start: 05-05-2022 End: 08-19-2022 [facility] Start: 05-05-2022 End: 08-19-2022 Social connection and isolation panel [facility] Do you belong to any clubs or organizations such as rastafari groups, unions, fraternal or athletic groups, or school groups? Patient refused [facility] Are you now , , , , never or living with a partner? [facility] How often to you hav e a drink containing alcohol? Never [facility] (I/We) worried wheth er (my/our) food would run out before (I/we) got money to buy more. DK or Refused [facility] In the past 12 month s, was there a time when you were not able to pay the mortgage or rent on time? No [facility] Do you belong to any clubs or organizations such as rastafari groups, unions, fraternal or athletic groups, or school groups? Yes [facility] Work Phone: Are you now , , , , never or living with a partner? [facility] Work Phone: Do you feel stress - tense, restless, nervous, or anxious, or unable to sleep at night because your mind is troubled all the time - these days [OSQ] Not at all [facility] Work Phone: Medical Equipment Procedure Code Equipment Code Equipment Origin al Text Equipment Identifier Dates Cook Ptfe 1.2 Cm X 10 Cm - [id number] Start: 01-18-2011 Clinical Notes 10-02-2018 to 03-17-2023 Telephone Encounter - Herminia Begum RN - 03/17/2023 4:36 PM Haley Jorge MD - 02/02/2023 2:25 PM Vandana Guerrero RT(R) - 01/16/2023 10:00 AM Yuniel Razo DO - 12/09/2022 3:54 PM EDT Note Date & Type Note Facility 03-17-2023 Miscellaneous Notes Attempted to reach the patient at the contact number that they provided [phone] (home) . 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 must have a responsible adult [...] Number to call with questions or concerns [phone] Number to call to cancel their procedure [phone] Herminia Begum RN documented in this encounter [facility] 02-02-2023 Note [facility] 02-02-2023 History of Present illness Narrative HCC Clinic New Patient Date of visit: 02/02/23 CC: HCC treated with SBRT HPI: This is a 82 year old with 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 ferrous sulfate [...] which included preparing to see the patient, [id number] patient care, completing clinical documentation, obtaining and/or reviewing separately obtained history, performing a medically appropriate examination, counseling and educating the patient/family/caregiver, ordering medications, tests, or procedures, and communicating with other HCPs (not separately reported). Haley Hampton MD Associate Staff, Department of Gastroenterology and Hepatology [facility] Disease [facility] [place] documented in this encounter [facility] 01-18-2023 Note [facility] 01-16-2023 Note [facility] 01-16-2023 History of Present illness Narrative [...] TIME: 10:47 AM documented in this encounter [facility] 01-06-2023 Miscellaneous Notes Referral form has been faxed to [facility] at number given below. Call to Ingris on Mobile and left vague message that referral form has been faxed to [facility]. Also called work number listed and left message as well notifying her with vague message. Adela Kaur Ma Please place referral, fax to [phone]. [facility] called and they have not received [...] Carol Robertson LPN Please call Ingris from [facility] for more information on this wound: location, etc. Jenny Aviles APRN.CNP Monique with [facility] calls to report that Ingris with [facility] called for appt for pt to be seen for yellow drainage from wound. Monique reports that pcp has to send order. Fax order to [facility]: [phone]. Akilah Barnett LPN documented in this encounter [facility] 12-29-2022 Miscellaneous Notes Michael spoke with daughter Ingris. Discussed patient currently receives 30 hour a week home care assistance from [place]. Patient also receives medical alert button courtesy of the [place]. Ingris notes that she is concerned regarding patient falls. Patient is adamant that he is not interested in going in to an AL. Ingris and Michael discussed that the [place] nurse that visits patient noted patient was [...] resources for patient care needs. Refer to [facility] for options for more home care or [...] house. Daughter reports she does have a septic cleaner come to pt's home for five hours six days a week but it is getting to the point where someone needs to be there more. Daughter is asking if pcp has any recommendations on what to do. Daughter is aware that pcp is out of the office this week. Akilah Barnett LPN documented in this encounter [facility] 12-12-2022 Miscellaneous Notes Detailed VM left on [...] if these were prescribed by PCP or [facility]. Date of last office visit [...] Johnson, RN 22 documented in this encounter [facility] 12-09-2022 Note [facility] 12-09-2022 History of Present illness Narrative [...] He had lab work ordered at his mysql [employer] office. Protein electrophoresis of the urine demonstrated [...] in atrial fibrillation when home nurse from [place] picked up irregular heart beat on pulse ox check. No symptoms. Was taken to [facility] ED. he was advised to increase low-dose aspirin to 3 times daily--but I cannot find documentation of this after careful review of the [facility] electronic medical record. He is not on anticoagulation because of thrombocytopenia and cirrhosis. Back in ED yesterday at the request of the [place] nurse due to variable heart rate. Was told in ED in and out of a fib. Sensory neuropathy symptoms subjectively stable. Previously seen by neurology group in [place]. Was told nothing to be done for [...] - 4.00 k/uL 0.50 (L) 0.43 (L) [place]% % 5.6 6.2 Abs [place] <0.87 k/uL 0.26 0.24 Eosin% % 3.4 [...] Component Latest Ref Rng & Units 03/22/2022 [place] Free, Serum 3.3 - 19.4 mg/L 65.0 (H) Lambda Free, Serum 5.7 - 26.3 mg/L 37.1 (H) K/L Ratio, Serum 0.26 - 1.65 1.75 (H) IgG kappa on immunofixation of serum. Component Latest Ref Rng & Units 05/02/2022 PTH, Intact 15 - 65 pg/mL 69 (H) PATHOLOGY: Bone marrow biopsy done at [facility] 05/05/2022: Hypercellular bone marrow with trilineage [...] which included preparing to see the patient, [id number] patient care, completing clinical documentation, obtaining and/or reviewing separately obtained history, performing a medically appropriate examination, counseling and educating the patient/family/caregiver, ordering medications, tests, or procedures, communicating with other HCPs (not separately reported), and communicating results to the patient/family/caregiver. Yuniel Dahl DO documented in this encounter [facility] 11-29-2022 Miscellaneous Notes Noted. Brigida FERNANDES with [facility] calls to let provider know that patient HR was out side of their parameters today. HR 117 and then 44. At end of session it was 68. Asymptomatic. Dr. Charlton's office also notified. Patient missed his appointment with Dr. Charlton last week and will reschedule. Paradise Masterson RN documented in this encounter [facility] 11-04-2022 Note [facility] 11-03-2022 Miscellaneous Notes Wild PT calling from [facility] to report plan of care for patient and physical therapy will visit patient 2 times a week for 2 weeks and 1 time a week for 1 week. Physical therapy will work with patient on functional mobility. No call back needed. Radha Hernandez RN documented in this encounter [facility] 11-02-2022 Miscellaneous Notes [facility] notified. PCP agrees and will follow Jenny Aviles APRN.KESHIA [facility]ity MOE calling from [facility] to report plan of care for patient and SN will visit patient 1 times a week for five weeks. SN will work with patient on monitoring and education of new diagnosis of Afib. [facility]ity needs verbal order for POC. After receives verbal order 485 form will be completed and faxed to provider at [phone]. Please call verbal order to [facility] at [phone]. Paradise Masterson RN documented in this encounter [facility] 11-01-2022 Miscellaneous Notes Below response left on identified vm. Carol Robertson LPN I will follow HH. Deandra with [facility] HH calling. Patient discharging from [facility], diagnosis A-Fib, post-fall. Pt has orders for HH Nursing, PT and OT and asking if PCP willing to follow for these orders? They would like to start seeing patient tomorrow, on 11/02. Please call Deandra back with approval at [phone]. Teresa Woodward RN documented in this encounter [facility] 10-21-2022 Miscellaneous Notes Called and left a [...] Taylor Blevins LPN documented in this encounter [facility] 09-30-2022 Miscellaneous Notes Appeal letter for fern faxed to [employer] appeal department for review. 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 Any barriers to Patient learning: Patient/Patient Health Aid responded appropriately on phone. Type of instruction given: Verbal by telephone contact. Shaneka Rudolph LPN documented in this encounter [facility] 09-20-2022 Note [facility] 09-20-2022 History of Present illness Narrative [...] Arnie Rodriguez PA-C documented in this encounter [facility] 09-19-2022 Miscellaneous Notes ROHINI Ingris/daughter, advised refill [...] Destiny Wadsworth Pss documented in this encounter [facility] 09-01-2022 Note [facility] 09-01-2022 Note [facility] 09-01-2022 History of Present illness Narrative SATYA MEDELLIN [id number] 09/01/2022 [facility] Department of Radiation Oncology [facility] RADIATION ONCOLOGY: COMPLETION NOTE DATE OF SIMULATION: 08/19/2022 DATES OF TREATMENT: 09/01/2022 to 09/01/2022 TREATMENT MACHINE: [facility] TREATMENT AREA: Liver HCC DIAGNOSIS: 82 year [...] AM Electronically Signed cc: Ricky Bradley [address] [place] [address] Dr. Dahl, CC documented in this encounter [facility] 08-22-2022 Miscellaneous Notes Pt never seen in [...] patient. Dary Ledesma documented in this encounter [facility] 08-19-2022 Note [facility] 08-19-2022 Nurse Note Satya Medellin is [...] pt refused interventions/assistance. 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 Was approved? Clinical questionnaires incomplete due to Patient declined to complete or answer questions with nurse Signed by: Yessenia Coy LPN documented in this encounter [facility] 08-19-2022 Note [facility] 08-19-2022 Note [facility] 08-19-2022 Note [facility] 08-19-2022 History of Present illness Narrative SATYA MEDELLIN. [id number] 08/19/2022 [facility] Department of Radiation Oncology [facility] RADIATION ONCOLOGY - Therapist Injection Note Procedure: [...] home Therapist: chris documented in this encounter [facility] 08-19-2022 History of Present illness Narrative LACIESATYA [id number] 08/19/2022 [facility] Department of Radiation Oncology [facility] RADIATION ONCOLOGY SIMULATION NOTE DATE OF SIMULATION: [...] M.D. :47 PM documented in this encounter [facility] 08-18-2022 Miscellaneous Notes RADIATION ONCOLOGY NURSING PRE-SIM [...] Ashley Jansen RN documented in this encounter [facility] 08-11-2022 Note [facility] 08-10-2022 Note [facility] 08-10-2022 Note [facility] 08-10-2022 Note [facility] 08-10-2022 History of Present illness Narrative [facility] received prescription(s) for Xifaxan from Dr. Haley Hampton's office. Benefits investigation was conducted, indicating that a prior authorization is required by patient's medicare part D insurance plan with [employer]. Encounter will be updated once prior authorization has been submitted by [facility]. Elizabeth Omer [facility] [address], [id number] [place] [address] [email or web address] [phone] Fern PETERS was initiated and pending review. Plan Name: [employer] med d Plan Agent/Simental: [employer] (simental [id number]) Case: [id number] Timeline: 24-72 hrs Elizabeth Omer ([place]) documented in this encounter [facility] 08-10-2022 Note [facility] 08-10-2022 Instructions Haley Hampton MD - [...] Highly recommend this! documented in this encounter [facility] 08-10-2022 History of Present illness Narrative HCC [...] (FLONASE) 50 mcg/actuation nasal spray Use 1 [place] in each nostril once daily. ferrous sulfate [...] cirrhosis (MELD-Na 8) complicated by HCC (within [place]), possible HE, PUD (bled 2019) here for [...] which included preparing to see the patient, [id number] patient care, completing clinical documentation, obtaining and/or reviewing separately obtained history, performing a medically appropriate examination, counseling and educating the patient/family/caregiver, ordering medications, tests, or procedures, and communicating with other HCPs (not separately reported). Haley Hampton MD Associate Staff, Department of Gastroenterology and Hepatology Digestive Disease and Surgery [place] -- ASSESSMENT/PLAN: 1. 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 Yousif Bustillos MD Radiation Oncology Resident [id number] STAFF ADDENDUM: I have read and reviewed [...] care. Bubba Sykes MD cc: Ricky Bradley [address] [place] [address] Dr. Dahl, [facility] documented in this encounter [facility] 07-28-2022 Miscellaneous Notes Left voicemail for patient's daughter about liver tumor board results See [employer] message from today documented in this encounter [facility] 07-26-2022 Miscellaneous Notes Spoke to patient's daughter [...] directly about the MRI findings. Will send [employer] message if unable to reach her by this evening as I am off tomorrow 07/27 Kai Alvarado PA-C July 26, 2022 3:14 PM documented in this encounter [facility] 07-26-2022 Note [facility] 07-26-2022 Note [facility] 07-26-2022 Note [facility] 07-26-2022 Note [facility] 07-26-2022 History of Present illness Narrative [...] 2022 1:01 PM documented in this encounter [facility] 07-26-2022 History of Present illness Narrative Radiology [...] 2022 1:32 PM documented in this encounter [facility] 07-26-2022 Nurse Note Radiology Service Progress Note [...] 2022 11:20 AM documented in this encounter [facility] 07-13-2022 Miscellaneous Notes Radiology Service Pre Anesthesia [...] Yes, 9. Does the patient have a vacuum truck driver to take them home? Yes, 10. Spoke with patient: No, spoke with Thiago, and All questions were addressed and answered. Patient's daughter verbalized understanding. SIGNED BY: Keyona Dodson RN July 13, 2022 4:13 PM documented in this encounter [facility] documented as of this encounter (statuses as of 11/30/2022) [facility] History of Past illness Narrative* Problem Noted Date Diagnosed Date Resolved Date Stasis ulcer 07/05/2022 11/04/2022 Obesity, Class II, BMI 35-39.9 04/22/2020 11/04/2022 Medicare annual wellness visit, subsequent 10/02/2018 02/18/2019 Encounter for long-term (cur rent) use of medications 09/07/2017 05/07/2021 Overview: Added automatically from request for surgery [id number] History of colonic polyps 09/07/2017 Overview: Added automatically from request for surgery [id number] Gastroesophageal reflux disease 09/07/2017 05/07/2021 Overview: Added automatically from request for surgery [id number] Acute pulmonary edema 01/19/20112010 Overview: 01/19/2011 cardiogenic [...] 01/12/2011 1 Overview: age 70, lives in [place], [place]. No DC needs. / Pre-op testing [...] of this encounter (statuses as of 12/10/2022) [facility] History of Past illness Narrative* Problem Noted Date Diagnosed Date Resolved Date Stasis ulcer 07/05/2022 11/04/2022 Obesity, Class II, BMI 35-39.9 04/22/2020 11/04/2022 Medicare annual wellness visit, subsequent 10/02/2018 02/18/2019 Encounter for long-term (cur rent) use of medications 09/07/2017 05/07/2021 Overview: Added automatically from request for surgery [id number] History of colonic polyps 09/07/2017 Overview: Added automatically from request for surgery [id number] Gastroesophageal reflux disease 09/07/2017 05/07/2021 Overview: Added automatically from request for surgery [id number] Acute pulmonary edema 01/19/20112010 Overview: 01/19/2011 cardiogenic [...] 01/12/2011 1 Overview: age 70, lives in [place], [place]. No DC needs. 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 No DC needs. / Pre-op testing [...] of this encounter (statuses as of 12/21/2022) [facility] of Past illness Narrative* Problem Noted Date Diagnosed Date Resolved Date Stasis ulcer 07/05/2022 11/04/2022 Obesity, Class II, BMI 35-39.9 04/22/2020 11/04/2022 Medicare annual wellness visit, subsequent 10/02/2018 02/18/2019 Encounter for long-term (cur rent) use of medications 09/07/2017 05/07/2021 Overview: Added automatically from request for surgery [id number] History of colonic polyps 09/07/2017 Overview: Added automatically from request for surgery [id number] Gastroesophageal reflux disease 09/07/2017 05/07/2021 Overview: Added automatically from request for surgery [id number] Acute pulmonary edema 01/19/20112010 Overview: 01/19/2011 cardiogenic [...] 01/12/2011 1 Overview: age 70, lives in [place]. No DC needs. / Pre-op testing [...] of this encounter (statuses as of 12/23/2022) [facility] of Past illness Narrative* Problem Noted Date Diagnosed Date Resolved Date Stasis ulcer 07/05/2022 11/04/2022 Obesity, Class II, BMI 35-39.9 04/22/2020 11/04/2022 Medicare annual wellness visit, subsequent 10/02/2018 02/18/2019 Encounter for long-term (cur rent) use of medications 09/07/2017 05/07/2021 Overview: Added automatically from request for surgery [id number] History of colonic polyps 09/07/2017 Overview: Added automatically from request for surgery [id number] Gastroesophageal reflux disease 09/07/2017 05/07/2021 Overview: Added automatically from request for surgery [id number] Acute pulmonary edema 01/19/20112010 Overview: 01/19/2011 cardiogenic [...] 01/12/2011 1 Overview: age 70, lives in [place]. No DC needs. 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 No DC needs. / Pre-op testing [...] of this encounter (statuses as of 12/28/2022) [facility] History of Past illness Narrative* Problem Noted Date Diagnosed Date Resolved Date Stasis ulcer 07/05/2022 11/04/2022 Obesity, Class II, BMI 35-39.9 04/22/2020 11/04/2022 Medicare annual wellness visit, subsequent 10/02/2018 02/18/2019 Encounter for long-term (cur rent) use of medications 09/07/2017 05/07/2021 Overview: Added automatically from request for surgery [id number] History of colonic polyps 09/07/2017 Overview: Added automatically from request for surgery [id number] Gastroesophageal reflux disease 09/07/2017 05/07/2021 Overview: Added automatically from request for surgery [id number] Acute pulmonary edema 01/19/20112010 Overview: 01/19/2011 cardiogenic [...] 01/12/2011 1 Overview: age 70, lives in [place]. No DC needs. 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 No DC needs. / Pre-op testing [...] of this encounter (statuses as of 01/06/2023) [facility] of Past illness Narrative* Problem Noted Date Diagnosed Date Resolved Date Stasis ulcer 07/05/2022 11/04/2022 Obesity, Class II, BMI 35-39.9 04/22/2020 11/04/2022 Medicare annual wellness visit, subsequent 10/02/2018 02/18/2019 Encounter for long-term (cur rent) use of medications 09/07/2017 05/07/2021 Overview: Added automatically from request for surgery [id number] History of colonic polyps 09/07/2017 Overview: Added automatically from request for surgery [id number] Gastroesophageal reflux disease 09/07/2017 05/07/2021 Overview: Added automatically from request for surgery [id number] Acute pulmonary edema 01/19/20112010 Overview: 01/19/2011 cardiogenic [...] 01/12/2011 1 Overview: age 70, lives in [place]. No DC needs. / Pre-op testing [...] of this encounter (statuses as of 01/10/2023) [facility] History of Past illness Narrative* Problem Noted Date Diagnosed Date Resolved Date Stasis ulcer 07/05/2022 11/04/2022 Obesity, Class II, BMI 35-39.9 04/22/2020 11/04/2022 Medicare annual wellness visit, subsequent 10/02/2018 02/18/2019 Encounter for long-term (cur rent) use of medications 09/07/2017 05/07/2021 Overview: Added automatically from request for surgery [id number] History of colonic polyps 09/07/2017 Overview: Added automatically from request for surgery [id number] Gastroesophageal reflux disease 09/07/2017 05/07/2021 Overview: Added automatically from request for surgery [id number] Acute pulmonary edema 01/19/20112010 Overview: 01/19/2011 cardiogenic [...] 01/12/2011 1 Overview: age 70, lives in [place]. No DC needs. / Pre-op testing [...] of this encounter (statuses as of 02/02/2023) [facility] of Past illness Narrative* Problem Noted Date Diagnosed Date Resolved Date Stasis ulcer 07/05/2022 11/04/2022 Obesity, Class II, BMI 35-39.9 04/22/2020 11/04/2022 Medicare annual wellness visit, subsequent 10/02/2018 02/18/2019 Encounter for long-term (cur rent) use of medications 09/07/2017 05/07/2021 Overview: Added automatically from request for surgery [id number] History of colonic polyps 09/07/2017 Overview: Added automatically from request for surgery [id number] Gastroesophageal reflux disease 09/07/2017 05/07/2021 Overview: Added automatically from request for surgery [id number] Acute pulmonary edema 01/19/20112010 Overview: 01/19/2011 cardiogenic [...] 01/12/2011 1 Overview: age 70, lives in [place]. No DC needs. / Pre-op testing [...] of this encounter (statuses as of 02/19/2023) [facility] History of Past illness Narrative* Problem Noted Date Diagnosed Date Resolved Date Stasis ulcer 07/05/2022 11/04/2022 Obesity, Class II, BMI 35-39.9 04/22/2020 11/04/2022 Medicare annual wellness visit, subsequent 10/02/2018 02/18/2019 Encounter for long-term (cur rent) use of medications 09/07/2017 05/07/2021 Overview: Added automatically from request for surgery [id number] History of colonic polyps 09/07/2017 Overview: Added automatically from request for surgery [id number] Gastroesophageal reflux disease 09/07/2017 05/07/2021 Overview: Added automatically from request for surgery [id number] Acute pulmonary edema 01/19/20112010 Overview: 01/19/2011 cardiogenic [...] 01/12/2011 1 Overview: age 70, lives in [place]. No DC needs. / Pre-op testing [...] of this encounter (statuses as of 03/17/2023) [facility] * Patient Instructions* Ricky Bradley MD - 07/04/2022 7:33 PM EDT STOP FUROSEMIDE WHILE ON TORSEMIDE X 5 DAYS. 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 ferrous sulfate [...] ointment. Ricky Bradley MD documented in this encounterA[facility]03-13-2023 Miscellaneous Notes* Telephone Encounter - Nirav Jj Ma - 06/27/2022 3:17 PM EDT Faxed. * Telephone Encounter - Rosario Kasper LPN - 06/27/2022 10:55 AM EDT Monique from [facility] calling patient had called to schedule appt, they have no referral. [facility] was [facility]24[facility]2022 [facility]. Fax number is [phone], pending order needs diagnosis. Please advise documented in this encounterAcmc [facility] System03-10-2023 [facility] History of Present illness Narrative* Bubba [...] (FLONASE) 50 mcg/actuation nasal spray Use 1 [place] in each nostril once daily. ferrous sulfate [...] Wt 108.2 kg (238 lb 9.6 oz) XqY765% BMI 37.37 kg/m Last 6 Encounter Wt [...] recommended. He will call to schedule with [facility]. Bubba Son MD documented in this encounterAcmc [facility] System02-27-2023 Miscellaneous Notes* Telephone Encounter - Pacheco Valentin [...] you. Pacheco Valentin RN documented in this encounterAcmc Healthcare System02-24-2023 [facility] History of Present illness Narrative* Yuniel [...] He had lab work ordered at his [employer] office. Protein electrophoresis of the urine demonstrated [...] symptoms stable. Seen by neurology group in [place]. Was told nothing to be done for neuropathy. Uses wheeled walker. Better appetite. Gets meals on wheels. No abdominal pain or bloating. Underwent bone marrow biopsy at [facility]. ROS: Constitutional: Denies episodes of fever [...] left. Overlying pitting.Stable. SKIN: No jaundice. NEUROLOGIC: zipper setter II-XII are grossly intact. LABS: Component Latest [...] - 4.00 k/uL 0.50 (L) 0.43 (L) [place]% % 5.6 6.2 Abs [place] <0.87 k/uL 0.26 0.24 Eosin% % 3.4 [...] Component Latest Ref Rng & Units 03/22/2022 [place] Free, Serum 3.3 - 19.4 mg/L 65.0 (H) Lambda Free, Serum 5.7 - 26.3 mg/L 37.1 (H) K/L Ratio, Serum 0.26 - 1.65 1.75 (H) IgG kappa on immunofixation of serum. Component Latest Ref Rng & Units 05/02/2022 PTH, Intact 15 - 65 pg/mL 69 (H) PATHOLOGY: Bone marrow biopsy done at [facility] 05/05/2022: Hypercellular bone marrow with trilineage [...] be scheduled with GI for colonoscopy at [facility]. Could not be done here. Plan: -Follow-up [...] which included preparing to see the patient, [id number] patient care, completing clinical documentation, obtaining and/or reviewing separately obtained history, performing a medically appropriate examination, counseling and educating the pat ient/family/caregiver, communicating with other HCPs (not separately reported), independently interpreting results (not separately reported), and communicating results to the patient/family/caregiver. Yuniel Dahl DO documented in this encounterAcmc Healthcare System01-26-2023 Miscellaneous Notes* Telephone Encounter - Adriana Borjas LPN - 05/12/2022 10:03 AM EST Faxed office note and message of referral request to Dr Gaspar. fax# [phone] * Telephone Encounter - Ingrid Morales PA-C - 05/12/2022 8:17 AM EST Please fax referral request including my recent office note to Dr. Gaspar's office for EGD with possible banding of esophageal varices, and colonoscopy for anemia and history of colon polyps documented in this encounterAcmc Healthcare System01-23-2023 Miscellaneous Notes* Telephone Encounter - Joan Kam [...] another iron treatment today. documented in this encounterAcmc Healthcare System01-23-2023 Miscellaneous Notes* Telephone Encounter - Gayla Lincoln RN - 05/09/2022 10:34 AM EST Addressed in separate phone encounter. Gayla Lincoln RN * Telephone Encounter - Roxanna Campbell LPN - 05/09/2022 9:17 AM EST See phone note from 05/09/2022. Roxanna Campbell LPN documented in this encounterAcmc Healthcare System01-19-2023 [facility]01-[facility]23 Instructions* Patient Instructions* Ricky Bradley MD - 05/05/2022 3:42 PM EST DO NOT TAKE FUROSEMIDE WHILE TAKING TORSEMIDE. START TORSEMIDE TOMORROW. START ANTIBIOTIC TONIGHT. documented in this encounterAcmc Healthcare System01-19-2023 History of Present illness Narrative* Ricky Bradley MD - 05/05/2022 3:31 PM EST This note was created using [employer] Subjective Satya Medellin is a 82 year old male here with daughter. He developed an itchy rash of both legs one week ago and he was applying capsaicin and other creams with no improvement. His blood pressure continued to be low, so most medications were discontinued other than [id number] mg every other day. 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 ferrous sulfate [...] week. Ricky Bradley MD documented in this encounterAcmc Healthcare System01-16-2023 [facility] History of Present illness Narrative* Ingrid [...] (FLONASE) 50 mcg/actuation nasal spray Use 1 [place] in each nostril once daily. ferrous sulfate [...] entered by the nurse and reviewed by ia Nursing Notes: Priscila Rose RN 05/02/2022 1:19 [...] require banding ([facility]), would recommend that patient have his upper and lower endoscopy performed by a ingot buggy operator who could perform banding at time of [...] mail. Ingrid Morales PA-C documented in this encounterAcmc Healthcare System01-16-2023 Nurse Note* Priscila Rose RN - 05/02/2022 [...] 2018 Priscila Rose RN documented in this encounterAcmc Healthcare System01-15-2023 Miscellaneous Notes* Telephone Encounter - Katelyn Ty [facility] - 05/01/2022 2:42 PM EST Unable to reach patient's daughter Ingris, who's number is in chart to call, just rings and no picking machine operator helper or voicemail. We can try again at [...] Liver when able--patient would like done at [facility]--open MRI. Referral to Dr. Dsouza for EGD/colonoscopy--possible varices. CT guided bone marrow biopsy at [facility] when able. Hold ASA 1 week prior. Referral to hepatology for cirrhosis. Schedule for 10 doses iron sucrose. CBC/CMP/Myeloma labs then OV after completes iron sucrose. documented in this encounterAcmc Healthcare System01-07-2023 [facility]01-[facility] History of Present illness Narrative* Kai [...] cirrhosis. Patient was last seen by GI STRATEGIC PLANNING DIRECTOR Sandrine Avila September 2020. Here at request [...] (FLONASE) 50 mcg/actuation nasal spray Use 1 [place] in each nostril once daily. 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 - Return to physician assistant activities director in 1 week. Colonoscopy September 2017: Findings: [...] cont now (may need general anesthesia at [facility] vs lorazepam 1 hour before MRI, will [...] which included preparing to see the patient, wrqe-ij-puze patient care, completing clinical documentation, obtaining and/or reviewing separately obtained history, performing a medically appropriate examination, counseling and educating the pat ient/family/caregiver, ordering medications, tests, or procedures, communicating with other HCPs (not separately reported), and communicating results to the patient/family/caregiver. Kai Alvarado PA-C April 23, 2022 11:17 AM documented in this encounterAcmc Healthcare System01-06-2023 [facility]12-[facility]12-[facility] History of Present illness Narrative* Mimi [...] 25, 2022 10:00 AM documented in this encounterAcmc Healthcare System12-06-2022 NoteMer[facility]12-06-2022 Note[facility]12-[facility]22 History of Present illness Narrative* Yuniel [...] He had lab work ordered at his [employer] office. Protein electrophoresis of the urine demonstrated [...] (FLONASE) 50 mcg/actuation nasal spray Use 1 [place] in each nostril once daily. ferrous sulfate [...] left. Overlying pitting. SKIN: No jaundice. NEUROLOGIC: zipper setter II-XII are grossly intact. He is not [...] which included preparing to see the patient, wjoz-tr-vqur patient care, completing clinical documentation, obtaining and/or reviewing separately obtained history, performing a medically appropriate examination, counseling and educating the pat ient/family/caregiver, ordering medications, tests, or procedures, communicating with other HCPs (not separately reported), independently interpreting results (not separately reported), communicatingresults to the patient/family/caregiver, and care coordination (not separately reported). Yuniel Dahl DO documented in this encounterAcmc Healthcare System11-21-2022 Miscellaneous Notes* Telephone Encounter - Estelita Baig LPN - 03/07/2022 10:01 AM EST pcp reviewed the rehabilitation and sport therapy note pt was seen there for driving assessment. Pcp signed form. This has been faxed back to [facility] at [phone] documented in this encounterAcmc Healthcare System11-14-2022 NoteHNO ID: [id number] Author: Radha Barker OT/L Service: ? Author [...] Environment Patient Lives With: Self/Alone Assistance Available: Part-Time;Naprapath (daughter involved living around the corner from patient and seeing him/checking in frequently) Home Type: Multi-Level Transportation: Travels as a passenger;SUV Patient Goals: to return to driving Intake Information: Prescription present Falls Interview: Two or more falls in the last year Relevant History Past Relevant Medical Conditions: Arthritis;Cerebral Vascular Accident;Falls;Hypertension;Depression;Neuropathy Highest Level of Education: Trade School Preferred Language: [place] Right or Left Handed: Right 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) Recreation / Current Exercise: no current exercise Hobbies / Interests: reads devotionals and cookbooks; rather sedentary Home Environment Patient Lives With: Self/Alone Assistance Available: Part-Time;Naprapath (daughter involved living around the corner from [...] Driving History: 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 State: [place] License/Permit #: [id number] Expires: 04/20/24 Restrictions: corrective lenses; 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 [...] Marginal while significant contractures/tone in L hand Dipper Machine Operator: functional for R hand while decreased for [...] Pass Contrast Sensitivity: mini (more content not included)...[facility] 02-28-2022 History of Present illness Narrative* Radha [...] Environment Patient Lives With: Self/Alone Assistance Available: Part-Time;Naprapath (daughter involved living around the corner from patient and seeing him/checking in frequently) Home Type: Multi-Level Transportation: Travels as a passenger;SUV Patient Goals: to return to driving Intake Information: Prescription present Falls Interview: Two or more falls in the last year Relevant History Past Relevant Medical Conditions: Arthritis;Cerebral Vascular Accident;Falls;Hypertension;Depression;Neuropathy Highest Level of Education: Trade School Preferred Language: [place] Right or Left Handed: Right 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) Recreation / Current Exercise: no current exercise Hobbies / Interests: reads devotionals and cookbooks; rather sedentary Home Environment Patient Lives With: Self/Alone Assistance Available: Part-Time;Naprapath (daughter involved living around the corner from [...] 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 History: 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 State: [place] License/Permit #: [id number] Expires: 04/20/24 Restrictions: corrective lenses; 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 [...] Marginal while significant contractures/tone in L hand Dipper Machine Operator: functional for R hand while decreased for [...] Recall: WFL @ 5/6 digits Visual Scanning/Attention: [place] Making Part B (sec): 319 sec 50th [...] nearly so, from the edge of the [place] one clock hand at the two o'clock [...] Not Suggestive of Safe Driving Potential Gurvinder Evaluation Assistant Simulator: Simple Brake Reaction Time: Average Distance: [...] Response to Education/Teach Back: States/Identifies TREATMENT: Evaluation Self-Shelter Management: 1: refer to documentation for details [...] this report indicates the ability of the vacuum truck driver to operate a motor vehicle on [...] MEET THE VISUAL FIELD SCREENING REQUIREMENTS FOR [facility] FOR DRIVING, CLOCK DRAWING SCORE, PERFORMANCE ON VISUAL PERCEPTUAL SCREENING INCLUDING FOR RAW SCORE AND SLOWED VISUAL PROCESSING SPEED, DECREASED CONCENTRATION AND RECALL MEMORY, MARKED IMPAIRMENT ON ALTERNATING ATTENTION TASK. RECOMMENDATIONS: ADL/IADL Recommendations: ongoing assist for self care and home management as needed while aides currently coming in 4 days/week Driving Recommendations: REFRAIN FROM DRIVING WHILE PERMANENT CESSATION/CHCF FROM DRIVING INDICATED. THIS THERAPIST WILL PROVIDE PHYSICIAN WITH [facility] REPORTING INFORMATION SO THAT LICENSE SUSPENSION [...] (timed/untimed) 135 minutes Evaluation - Moderate Complexity (57237) Self Care / Home Management (32013): 1:1 time: 75 minutes (5 units: 68-82 mins) Total time: 135 minutes RONY Elise, CDRS, CDI Certified Evaluation Assistant Dampener documented in this encounterAcmc Healthcare System11-07-2022 Miscellaneous Notes* Telephone Encounter - Ama Masters [...] B/MMO SUPPLEMENT Radha Ziyad documented in this [facility]11-03-2022 Miscellaneous Notes* Telephone Encounter - Ingrid [...] seeing kidney doctor Dr Sera Carreno at [facility] yesterday. She states BP was [...] fax to our office. documented in this [facility]10-17-2022 Instructions* Patient Instructions* Ricky Bradley MD - 01/31/2022 2:53 PM EDT DISCONTINUE LISINOPRIL. documented in this encounterAcmc Healthcare System10-17-2022 History of Present illness Narrative* Ricky Bradley MD - 01/31/2022 2:34 PM EDT This note was created using [employer]. Subjective Satya Medellin is a 81 year old male here with daughter. He fell again and was in the ER 12/08 forhead injury. He was scheduled with neurology. His hypertension was still well controlled on one half dose of lisinopril. He was scheduled to see his mysql dba in 2 weeks. 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 ferrous sulfate [...] ICD9: 781.2, ICD10: R26.9 - 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 3. Stage 3a chronic kidney disease (HCC) - ICD9: 585.3, ICD10: N18.31 - eGFR: Stable - Discontinue LISINOPRIL. - BASIC METABOLIC PNL in 2 weeks. - Nephrology in 2 weeks. 4. Essential hypertension - ICD9: 401.9, ICD10: I10 - good control - See #3. Ricky Bradley MD documented in this encounterAcmc Healthcare System10-12-2022 Miscellaneous Notes* PT DISCHARGE - Leda Christensen [...] would be a maintenance situation. He has FORESTRY FACULTY MEMBER from the [place] that are allowed to assist him with [...] summary for intervention/education details. documented in this encounterAcmc Healthcare System10-10-2022 Miscellaneous Notes* PT ROUTINE/REASSESSMENT/RECERT/CASE MGMT - Raquel Shelly, CUT OUT MACHINE OPERATOR - 01/24/2022 8:53 AM EDT SITUATION: private [...] summary for intervention/education details. documented in this encounterAcmc Healthcare System10-07-2022 Miscellaneous Notes* HH PT ROUTINE/REASSESSMENT/RECERT/CASE MGMT - [...] summary for intervention/education details. documented in this encounterAcmc Healthcare System10-05-2022 Miscellaneous Notes* Telephone Encounter - Ingrid Dacosta RN - 01/19/2022 3:02 PM EDT Called and left a voicemail for the Patient's daughter to call back and ask for a nurse to receive the providers message. Faxed orders, last OV note, labs, and x-rays to [facility] at fax # [phone]. Ingrid Dacosta RN * Telephone Encounter - [...] would want it to be sent to [facility]. Fax number is [phone]. Phone number is [phone]. Please review and advise, Paradise Masterson RN documented in this encounterAcmc Healthcare System10-05-2022 Miscellaneous Notes* Telephone Encounter - Raquel Bravo PTA - 01/19/2022 2:35 PM EDT Patient reported he fell on Monday when ambulating outside of home. Denies injury and was able to complete PT today without concerns. Thanks documented in this encounterAcmc Healthcare System10-03-2022 Miscellaneous Notes* Telephone Encounter - Nirav Jj Ma - 01/17/2022 1:03 PM EDT Krzysztofay given to Jacquelin. Nirav Jj Ma * Telephone Encounter - Jenny Aviles APRN.CNP - 01/17/2022 12:18 PM EDT Olu Aviles APRN.CNP * Telephone Encounter - Rosario Kasper LPN - 01/13/2022 1:04 PM EDT Jacquelin from [facility] PT calling she did her re-assessment and would like to continue visits 2 times weekly for 2 more weeks. She is asking for verbal order please. If have problem reaching her onwork phone can call her person phone number. Please advise documented in this encounterAcmc Healthcare System09-29-2022 Miscellaneous Notes* PT ROUTINE/REASSESSMENT/RECERT/CASE MGMT - Jacquelin [...] summary for intervention/education details. documented in this encounterAcmc Healthcare System09-27-2022 Miscellaneous Notes* PT ROUTINE/REASSESSMENT/RECERT/CASE MGMT - Raquel Shelly, CUT OUT MACHINE OPERATOR - 01/11/2022 8:56 AM EDT SITUATION: only [...] summary for intervention/education details. documented in this encounterAcmc Healthcare System09-21-2022 Miscellaneous Notes* PT ROUTINE/REASSESSMENT/RECERT/CASE MGMT - Leda [...] summary for intervention/education details. documented in this encounterAcmc Healthcare System09-19-2022 Miscellaneous Notes* PT ROUTINE/REASSESSMENT/RECERT/CASE MGMT - Raquel [...] summary for intervention/education details. documented in this encounterAcmc Healthcare System09-16-2022 Miscellaneous Notes* PT ROUTINE/REASSESSMENT/RECERT/CASE MGMT - Leda [...] summary for intervention/education details. documented in this encounterAcmc Healthcare System09-13-2022 Miscellaneous Notes* PT ROUTINE/REASSESSMENT/RECERT/CASE MGMT - Raquel Bravo, CUT OUT MACHINE OPERATOR - 12/28/2021 2:00 PM EDT SITUATION: only [...] summary for intervention/education details. documented in this encounterAcmc Healthcare System09-08-2022 Miscellaneous Notes* PT ROUTINE/REASSESSMENT/RECERT/CASE MGMT - Raquel [...] summary for intervention/education details. documented in this encounterAcmc Healthcare System09-06-2022 Miscellaneous Notes* PT ROUTINE/REASSESSMENT/RECERT/CASE MGMT - Leda [...] Colon Polyp Thrombocytopenia CAD (Coronary Artery Disease), [place] Coronary Artery Adjustment Disorder With Depr essed [...] summary for intervention/education details. 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 Reviewed and explained homecare [...] summary for intervention/education details. documented in this encounterAcmc Healthcare System08-29-2022 Miscellaneous Notes* Telephone Encounter - Krystal Johnson [...] Angel that patient would be notified from [facility] as referral is still active. Paradise Masterson RN * Telephone Encounter - Krystal Johnson RN - 12/08/2021 4:31 PM EDT Patient's daughter calling to let PCP know that patient fell today and landed on his back and hit the back of his head/neck on a door. He is @ [facility] ER and has had a CT scan. His main complaint is neckpain. She says they have been unable to start PT due to more information needed. Please see Home Care note in Epic from Jacinda Barrett LPN sent yesterday. Daughter is requesting call back when PT can be initiated. Krystal Johnson RN documented in this encounterAcmc Healthcare System08-29-2022 Miscellaneous Notes* Telephone Encounter - Jacquelin Pavan - 12/13/2021 9:47 AM EDT Welcome Home Call: a. Date and Time: 9:48 AM 12/13/2021 b. Contact name/relationship: Satya jean-baptiste Have you been active with any Home Care company in the last 60 days(such as help with bathing, filling medications, checking your blood pressure) ? No. d. [facility] will be providing your care, [...] maintain a safe environment for our caregivers, [facility] requires anyanimals or weapons present in the home be located in a secured location. Our clinicians will call you the night before or the morning of the appointment. Their # may come up restricted but they'll leave a VM for you. In case you have any questions or concerns in the meantime, our # is [phone], option 1 Thank you for your time and have a great day. Jacquelin Browne documented in this encounterAcmc Healthcare System08-23-2022 Miscellaneous Notes* Telephone Encounter - Jacinda Barrett [...] date noted. If you have any questions, [facility] Home Care Intake can be reached at [phone]. Thank you in advance. Jacinda Barrett LPN Central Admissions Intake Nurse [phone] documented in this encounterAcmc Healthcare System08-04-2022 Miscellaneous Notes* Telephone Encounter - Carol Robertson [...] function okay and stable. documented in this encounterAcmc Healthcare System07-21-2022 Instructions* Patient Instructions* Ricky Bradley MD - 11/04/2021 10:13 AM EDT BLOOD TEST TODAY, NON FASTING. documented in this encounterAcmc Healthcare System07-21-2022 History of Present illness Narrative* Ricky Bradley MD - 11/04/2021 10:04 AM EDT This note was created using [employer] Subjective Satya Medellin is a 81 year [...] Polyp Thrombocytopenia (HCC) Cad (Coronary Artery Disease), [place] Coronary Artery Adjustment Disorder With Depressed Mood [...] (FLONASE) 50 mcg/actuation nasal spray Use 1 [place] in each nostril once daily. ferrous sulfate [...] Recheck. Ricky Bradley MD documented in this encounterAcmc Healthcare System06-29-2022 Miscellaneous Notes* Telephone Encounter - Mary Pinon [...] back to schedule it. documented in this encounterAcmc Healthcare System06-24-2022 Miscellaneous Notes* Telephone Encounter - Ingrid Dacosta RN - 10/08/2021 3:00 PM EDT Pt reports he was told by an PLASTIC SURGEON at the [place] to stop taking his HCTZ. I asked [...] you. Ingrid Dacosta, RN documented in this encounterAcmc Healthcare System03-22-2022 Miscellaneous Notes* Telephone Encounter - Jenny Aviles [...] PCP. Kaylie Radford LPN documented in this encounterAcmc Healthcare System03-22-2022 History of Present illness Narrative* Kaylie Radford [...] PCP. Kaylie Radford LPN documented in this encounterAcmc Healthcare System01-06-2021 History of Past illness Narrative* Problem Noted Date Diagnosed Date Resolved Date Obesity, Class II, BMI 35-39.9 04/22/2020 11/04/2022 Medicare annual wellness visit, subsequent 10/02/2018 02/18/2019 Encounter for long-term (cur rent) use of medications 09/07/2017 05/07/2021 Overview: Added automatically from request for surgery [id number] History of colonic polyps 09/07/2017 Overview: Added automatically from request for surgery [id number] Gastroesophageal reflux disease 09/07/2017 05/07/2021 Overview: Added automatically from request for surgery [id number] Acute pulmonary edema 01/19/20112010 Overview: 01/19/2011 cardiogenic [...] of this encounter (statuses as of 02/19/2023) [facility] of Past illness Narrative* Problem Noted Date Resolved Date Medicare annual wellness visit, subsequent 10/0202/18/2019 Encounter for long-term (current) use of medicat ions 09/07/2017 05/07/2021 Overview: Added automatically from request for surgery [id number] History of colonic polyps 09/07/20172021 Overview: Added automatically from request for surgery [id number] Gastroesophageal reflux disease 09/07/2017 05/07/2021 Overview: Added automatically from request for surgery [id number] Acute pulmonary edema 01/19/2011 01/20/2011 Overview: 01/19/2011 [...] 01/12/2011 02/02/2011 Overview: age 70, lives in [place], [place]. No DC needs. / Pre-op testing [...] of this encounter (statuses as of 07/06/2021) [facility] of Past illness Narrative* Problem Noted Date Resolved Date Medicare annual wellness visit, subsequent 10/0202/18/2019 Encounter for long-term (current) use of medicat ions 09/07/2017 05/07/2021 Overview: Added automatically from request for surgery [id number] History of colonic polyps 09/07/20172021 Overview: Added automatically from request for surgery [id number] Gastroesophageal reflux disease 09/07/2017 05/07/2021 Overview: Added automatically from request for surgery [id number] Acute pulmonary edema 01/19/2011 01/20/2011 Overview: 01/19/2011 [...] 01/12/2011 02/02/2011 Overview: age 70, lives in [place], [place]. No DC needs. / Pre-op testing [...] of this encounter (statuses as of 07/06/2021) [facility] Past illness Narrative* Problem Noted Date Resolved Date Medicare annual wellness visit, subsequent 10/0202/18/2019 Encounter for long-term (current) use of medicat ions 09/07/2017 05/07/2021 Overview: Added automatically from request for surgery [id number] History of colonic polyps 09/07/20172021 Overview: Added automatically from request for surgery [id number] Gastroesophageal reflux disease 09/07/2017 05/07/2021 Overview: Added automatically from request for surgery [id number] Acute pulmonary edema 01/19/2011 01/20/2011 Overview: 01/19/2011 [...] 01/12/2011 02/02/2011 Overview: age 70, lives in [place], [place]. No DC needs. / Pre-op testing [...] of this encounter (statuses as of 10/09/2021) [facility] Narrative* Problem Noted Date Resolved Date Medicare annual wellness visit, subsequent 10/0202/18/2019 Encounter for long-term (current) use of medicat ions 09/07/2017 05/07/2021 Overview: Added automatically from request for surgery [id number] History of colonic polyps 09/07/20172021 Overview: Added automatically from request for surgery [id number] Gastroesophageal reflux disease 09/07/2017 05/07/2021 Overview: Added automatically from request for surgery [id number] Acute pulmonary edema 01/19/2011 01/20/2011 Overview: 01/19/2011 [...] 01/12/2011 02/02/2011 Overview: age 70, lives in [place]. No DC needs. / Pre-op testing [...] of this encounter (statuses as of 10/13/2021) [facility] Narrative* Problem Noted Date Resolved Date Medicare annual wellness visit, subsequent 10/0202/18/2019 Encounter for long-term (current) use of medicat ions 09/07/2017 05/07/2021 Overview: Added automatically from request for surgery [id number] History of colonic polyps 09/07/20172021 Overview: Added automatically from request for surgery [id number] Gastroesophageal reflux disease 09/07/2017 05/07/2021 Overview: Added automatically from request for surgery [id number] Acute pulmonary edema 01/19/2011 01/20/2011 Overview: 01/19/2011 [...] 01/12/2011 02/02/2011 Overview: age 70, lives in [place]. No DC needs. / Pre-op testing [...] of this encounter (statuses as of 11/04/2021) [facility] Narrative* Problem Noted Date Resolved Date Medicare annual wellness visit, subsequent 10/0202/18/2019 Encounter for long-term (current) use of medicat ions 09/07/2017 05/07/2021 Overview: Added automatically from request for surgery [id number] History of colonic polyps 09/07/20172021 Overview: Added automatically from request for surgery [id number] Gastroesophageal reflux disease 09/07/2017 05/07/2021 Overview: Added automatically from request for surgery [id number] Acute pulmonary edema 01/19/2011 01/20/2011 Overview: 01/19/2011 [...] 01/12/2011 02/02/2011 Overview: age 70, lives in [place]. No DC needs. / Pre-op testing [...] of this encounter (statuses as of 11/18/2021) [facility] Narrative* Problem Noted Date Resolved Date Medicare annual wellness visit, subsequent 10/0202/18/2019 Encounter for long-term (current) use of medicat ions 09/07/2017 05/07/2021 Overview: Added automatically from request for surgery [id number] History of colonic polyps 09/07/20172021 Overview: Added automatically from request for surgery [id number] Gastroesophageal reflux disease 09/07/2017 05/07/2021 Overview: Added automatically from request for surgery [id number] Acute pulmonary edema 01/19/2011 01/20/2011 Overview: 01/19/2011 [...] 01/12/2011 02/02/2011 Overview: age 70, lives in [place]. No DC needs. / Pre-op testing [...] of this encounter (statuses as of 12/13/2021) [facility] Narrative* Problem Noted Date Resolved Date Medicare annual wellness visit, subsequent 10/0202/18/2019 Encounter for long-term (current) use of medicat ions 09/07/2017 05/07/2021 Overview: Added automatically from request for surgery [id number] History of colonic polyps 09/07/20172021 Overview: Added automatically from request for surgery [id number] Gastroesophageal reflux disease 09/07/2017 05/07/2021 Overview: Added automatically from request for surgery [id number] Acute pulmonary edema 01/19/2011 01/20/2011 Overview: 01/19/2011 [...] 01/12/2011 02/02/2011 Overview: age 70, lives in [place]. No DC needs. / Pre-op testing [...] of this encounter (statuses as of 12/13/2021) [facility] Narrative* Problem Noted Date Resolved Date Medicare annual wellness visit, subsequent 10/0202/18/2019 Encounter for long-term (current) use of medicat ions 09/07/2017 05/07/2021 Overview: Added automatically from request for surgery [id number] History of colonic polyps 09/07/20172021 Overview: Added automatically from request for surgery [id number] Gastroesophageal reflux disease 09/07/2017 05/07/2021 Overview: Added automatically from request for surgery [id number] Acute pulmonary edema 01/19/2011 01/20/2011 Overview: 01/19/2011 [...] 01/12/2011 02/02/2011 Overview: age 70, lives in [place]. No DC needs. / Pre-op testing [...] of this encounter (statuses as of 12/15/2021) [facility] Narr[facility]* Problem Noted Date Resolved Date Medicare annual wellness visit, subsequent 10/0202/18/2019 Encounter for long-term (current) use of medicat ions 09/07/2017 05/07/2021 Overview: Added automatically from request for surgery [id number] History of colonic polyps 09/07/20172021 Overview: Added automatically from request for surgery [id number] Gastroesophageal reflux disease 09/07/2017 05/07/2021 Overview: Added automatically from request for surgery [id number] Acute pulmonary edema 01/19/2011 01/20/2011 Overview: 01/19/2011 [...] 01/12/2011 02/02/2011 Overview: age 70, lives in [place]. No DC needs. / Pre-op testing [...] of this encounter (statuses as of 12/15/2021) [facility] Narrative* Problem Noted Date Resolved Date Medicare annual wellness visit, subsequent 10/0202/18/2019 Encounter for long-term (current) use of medicat ions 09/07/2017 05/07/2021 Overview: Added automatically from request for surgery [id number] History of colonic polyps 09/07/20172021 Overview: Added automatically from request for surgery [id number] Gastroesophageal reflux disease 09/07/2017 05/07/2021 Overview: Added automatically from request for surgery [id number] Acute pulmonary edema 01/19/2011 01/20/2011 Overview: 01/19/2011 [...] 01/12/2011 02/02/2011 Overview: age 70, lives in [place]. No DC needs. / Pre-op testing [...] of this encounter (statuses as of 12/17/2021) [facility] Narrative* Problem Noted Date Resolved Date Medicare annual wellness visit, subsequent 10/0202/18/2019 Encounter for long-term (current) use of medicat ions 09/07/2017 05/07/2021 Overview: Added automatically from request for surgery [id number] History of colonic polyps 09/07/20172021 Overview: Added automatically from request for surgery [id number] Gastroesophageal reflux disease 09/07/2017 05/07/2021 Overview: Added automatically from request for surgery [id number] Acute pulmonary edema 01/19/2011 01/20/2011 Overview: 01/19/2011 [...] 01/12/2011 02/02/2011 Overview: age 70, lives in [place]. No DC needs. / Pre-op testing [...] of this encounter (statuses as of 12/21/2021) [facility] Narr[facility]* Problem Noted Date Resolved Date Medicare annual wellness visit, subsequent 10/0202/18/2019 Encounter for long-term (current) use of medicat ions 09/07/2017 05/07/2021 Overview: Added automatically from request for surgery [id number] History of colonic polyps 09/07/20172021 Overview: Added automatically from request for surgery [id number] Gastroesophageal reflux disease 09/07/2017 05/07/2021 Overview: Added automatically from request for surgery [id number] Acute pulmonary edema 01/19/2011 01/20/2011 Overview: 01/19/2011 [...] 01/12/2011 02/02/2011 Overview: age 70, lives in [place]. No DC needs. / Pre-op testing [...] of this encounter (statuses as of 12/23/2021) [facility] Narr[facility]* Problem Noted Date Resolved Date Medicare annual wellness visit, subsequent 10/0202/18/2019 Encounter for long-term (current) use of medicat ions 09/07/2017 05/07/2021 Overview: Added automatically from request for surgery [id number] History of colonic polyps 09/07/20172021 Overview: Added automatically from request for surgery [id number] Gastroesophageal reflux disease 09/07/2017 05/07/2021 Overview: Added automatically from request for surgery [id number] Acute pulmonary edema 01/19/2011 01/20/2011 Overview: 01/19/2011 [...] 01/12/2011 02/02/2011 Overview: age 70, lives in [place]. No DC needs. / Pre-op testing [...] of this encounter (statuses as of 12/28/2021) [facility] N[facility]* Problem Noted Date Resolved Date Medicare annual wellness visit, subsequent 10/0202/18/2019 Encounter for long-term (current) use of medicat ions 09/07/2017 05/07/2021 Overview: Added automatically from request for surgery [id number] History of colonic polyps 09/07/20172021 Overview: Added automatically from request for surgery [id number] Gastroesophageal reflux disease 09/07/2017 05/07/2021 Overview: Added automatically from request for surgery [id number] Acute pulmonary edema 01/19/2011 01/20/2011 Overview: 01/19/2011 [...] 01/12/2011 02/02/2011 Overview: age 70, lives in [place]. No DC needs. / Pre-op testing [...] of this encounter (statuses as of 12/31/2021) [facility] Narrative* Problem Noted Date Resolved Date Medicare annual wellness visit, subsequent 10/0202/18/2019 Encounter for long-term (current) use of medicat ions 09/07/2017 05/07/2021 Overview: Added automatically from request for surgery [id number] History of colonic polyps 09/07/20172021 Overview: Added automatically from request for surgery [id number] Gastroesophageal reflux disease 09/07/2017 05/07/2021 Overview: Added automatically from request for surgery [id number] Acute pulmonary edema 01/19/2011 01/20/2011 Overview: 01/19/2011 [...] 01/12/2011 02/02/2011 Overview: age 70, lives in [place]. No DC needs. / Pre-op testing [...] of this encounter (statuses as of 01/03/2022) [facility] History of Past illness Narrative* Problem Noted Date Resolved Date Medicare annual wellness visit, subsequent 10/0202/18/2019 Encounter for long-term (current) use of medicat ions 09/07/2017 05/07/2021 Overview: Added automatically from request for surgery [id number] History of colonic polyps 09/07/20172021 Overview: Added automatically from request for surgery [id number] Gastroesophageal reflux disease 09/07/2017 05/07/2021 Overview: Added automatically from request for surgery [id number] Acute pulmonary edema 01/19/2011 01/20/2011 Overview: 01/19/2011 [...] 01/12/2011 02/02/2011 Overview: age 70, lives in [place], [place]. No DC needs. / Pre-op testing [...] of this encounter (statuses as of 01/06/2022) [facility] History of Past illness Narrative* Problem Noted Date Resolved Date Medicare annual wellness visit, subsequent 10/0202/18/2019 Encounter for long-term (current) use of medicat ions 09/07/2017 05/07/2021 Overview: Added automatically from request for surgery [id number] History of colonic polyps 09/07/20172021 Overview: Added automatically from request for surgery [id number] Gastroesophageal reflux disease 09/07/2017 05/07/2021 Overview: Added automatically from request for surgery [id number] Acute pulmonary edema 01/19/2011 01/20/2011 Overview: 01/19/2011 [...] 01/12/2011 02/02/2011 Overview: age 70, lives in [place], [place]. No DC needs. / Pre-op testing [...] of this encounter (statuses as of 01/11/2022) [facility] History of Past illness Narrative* Problem Noted Date Resolved Date Medicare annual wellness visit, subsequent 10/0202/18/2019 Encounter for long-term (current) use of medicat ions 09/07/2017 05/07/2021 Overview: Added automatically from request for surgery [id number] History of colonic polyps 09/07/20172021 Overview: Added automatically from request for surgery [id number] Gastroesophageal reflux disease 09/07/2017 05/07/2021 Overview: Added automatically from request for surgery [id number] Acute pulmonary edema 01/19/2011 01/20/2011 Overview: 01/19/2011 [...] 01/12/2011 02/02/2011 Overview: age 70, lives in [place], [place]. No DC needs. / Pre-op testing [...] of this encounter (statuses as of 01/16/2022) [facility] History of Past illness Narrative* Problem Noted Date Resolved Date Medicare annual wellness visit, subsequent 10/0202/18/2019 Encounter for long-term (current) use of medicat ions 09/07/2017 05/07/2021 Overview: Added automatically from request for surgery [id number] History of colonic polyps 09/07/20172021 Overview: Added automatically from request for surgery [id number] Gastroesophageal reflux disease 09/07/2017 05/07/2021 Overview: Added automatically from request for surgery [id number] Acute pulmonary edema 01/19/2011 01/20/2011 Overview: 01/19/2011 [...] 01/12/2011 02/02/2011 Overview: age 70, lives in [place]. No DC needs. / Pre-op testing [...] of this encounter (statuses as of 01/17/2022) [facility] History of Past illness Narrative* Problem Noted Date Resolved Date Medicare annual wellness visit, subsequent 10/0202/18/2019 Encounter for long-term (current) use of medicat ions 09/07/2017 05/07/2021 Overview: Added automatically from request for surgery [id number] History of colonic polyps 09/07/20172021 Overview: Added automatically from request for surgery [id number] Gastroesophageal reflux disease 09/07/2017 05/07/2021 Overview: Added automatically from request for surgery [id number] Acute pulmonary edema 01/19/2011 01/20/2011 Overview: 01/19/2011 [...] 01/12/2011 02/02/2011 Overview: age 70, lives in [place]. No DC needs. / Pre-op testing [...] of this encounter (statuses as of 01/18/2022) [facility] History of Past illness Narrative* Problem Noted Date Resolved Date Medicare annual wellness visit, subsequent 10/0202/18/2019 Encounter for long-term (current) use of medicat ions 09/07/2017 05/07/2021 Overview: Added automatically from request for surgery [id number] History of colonic polyps 09/07/20172021 Overview: Added automatically from request for surgery [id number] Gastroesophageal reflux disease 09/07/2017 05/07/2021 Overview: Added automatically from request for surgery [id number] Acute pulmonary edema 01/19/2011 01/20/2011 Overview: 01/19/2011 [...] 01/12/2011 02/02/2011 Overview: age 70, lives in [place]. No DC needs. / Pre-op testing [...] of this encounter (statuses as of 01/19/2022) [facility] History of Past illness Narrative* Problem Noted Date Resolved Date Medicare annual wellness visit, subsequent 10/0202/18/2019 Encounter for long-term (current) use of medicat ions 09/07/2017 05/07/2021 Overview: Added automatically from request for surgery [id number] History of colonic polyps 09/07/20172021 Overview: Added automatically from request for surgery [id number] Gastroesophageal reflux disease 09/07/2017 05/07/2021 Overview: Added automatically from request for surgery [id number] Acute pulmonary edema 01/19/2011 01/20/2011 Overview: 01/19/2011 [...] 01/12/2011 02/02/2011 Overview: age 70, lives in [place]. No DC needs. / Pre-op testing [...] of this encounter (statuses as of 01/21/2022) [facility] History of Past illness Narrative* Problem Noted Date Resolved Date Medicare annual wellness visit, subsequent 10/0202/18/2019 Encounter for long-term (current) use of medicat ions 09/07/2017 05/07/2021 Overview: Added automatically from request for surgery [id number] History of colonic polyps 09/07/20172021 Overview: Added automatically from request for surgery [id number] Gastroesophageal reflux disease 09/07/2017 05/07/2021 Overview: Added automatically from request for surgery [id number] Acute pulmonary edema 01/19/2011 01/20/2011 Overview: 01/19/2011 [...] 01/12/2011 02/02/2011 Overview: age 70, lives in [place]. No DC needs. / Pre-op testing [...] of this encounter (statuses as of 01/24/2022) [facility] History of Past illness Narrative* Problem Noted Date Resolved Date Medicare annual wellness visit, subsequent 10/0202/18/2019 Encounter for long-term (current) use of medicat ions 09/07/2017 05/07/2021 Overview: Added automatically from request for surgery [id number] History of colonic polyps 09/07/20172021 Overview: Added automatically from request for surgery [id number] Gastroesophageal reflux disease 09/07/2017 05/07/2021 Overview: Added automatically from request for surgery [id number] Acute pulmonary edema 01/19/2011 01/20/2011 Overview: 01/19/2011 [...] 01/12/2011 02/02/2011 Overview: age 70, lives in [place]. No DC needs. / Pre-op testing [...] of this encounter (statuses as of 01/24/2022) [facility] History of Past illness Narrative* Problem Noted Date Resolved Date Medicare annual wellness visit, subsequent 10/0202/18/2019 Encounter for long-term (current) use of medicat ions 09/07/2017 05/07/2021 Overview: Added automatically from request for surgery [id number] History of colonic polyps 09/07/20172021 Overview: Added automatically from request for surgery [id number] Gastroesophageal reflux disease 09/07/2017 05/07/2021 Overview: Added automatically from request for surgery [id number] Acute pulmonary edema 01/19/2011 01/20/2011 Overview: 01/19/2011 [...] 01/12/2011 02/02/2011 Overview: age 70, lives in [place]. No DC needs. / Pre-op testing [...] of this encounter (statuses as of 01/26/2022) [facility] History of Past illness Narrative* Problem Noted Date Resolved Date Medicare annual wellness visit, subsequent 10/0202/18/2019 Encounter for long-term (current) use of medicat ions 09/07/2017 05/07/2021 Overview: Added automatically from request for surgery [id number] History of colonic polyps 09/07/20172021 Overview: Added automatically from request for surgery [id number] Gastroesophageal reflux disease 09/07/2017 05/07/2021 Overview: Added automatically from request for surgery [id number] Acute pulmonary edema 01/19/2011 01/20/2011 Overview: 01/19/2011 [...] 01/12/2011 02/02/2011 Overview: age 70, lives in [place]. No DC needs. / Pre-op testing [...] of this encounter (statuses as of 01/31/2022) [facility] History of Past illness Narrative* Problem Noted Date Resolved Date Medicare annual wellness visit, subsequent 10/0202/18/2019 Encounter for long-term (current) use of medicat ions 09/07/2017 05/07/2021 Overview: Added automatically from request for surgery [id number] History of colonic polyps 09/07/20172021 Overview: Added automatically from request for surgery [id number] Gastroesophageal reflux disease 09/07/2017 05/07/2021 Overview: Added automatically from request for surgery [id number] Acute pulmonary edema 01/19/2011 01/20/2011 Overview: 01/19/2011 [...] 01/12/2011 02/02/2011 Overview: age 70, lives in [place]. No DC needs. / Pre-op testing [...] of this encounter (statuses as of 02/17/2022) [facility] History of Past illness Narrative* Problem Noted Date Resolved Date Medicare annual wellness visit, subsequent 10/0202/18/2019 Encounter for long-term (current) use of medicat ions 09/07/2017 05/07/2021 Overview: Added automatically from request for surgery [id number] History of colonic polyps 09/07/20172021 Overview: Added automatically from request for surgery [id number] Gastroesophageal reflux disease 09/07/2017 05/07/2021 Overview: Added automatically from request for surgery [id number] Acute pulmonary edema 01/19/2011 01/20/2011 Overview: 01/19/2011 [...] 01/12/2011 02/02/2011 Overview: age 70, lives in [place]. No DC needs. / Pre-op testing [...] of this encounter (statuses as of 02/21/2022) [facility] History of Past illness Narrative* Problem Noted Date Resolved Date Medicare annual wellness visit, subsequent 10/0202/18/2019 Encounter for long-term (current) use of medicat ions 09/07/2017 05/07/2021 Overview: Added automatically from request for surgery [id number] History of colonic polyps 09/07/20172021 Overview: Added automatically from request for surgery [id number] Gastroesophageal reflux disease 09/07/2017 05/07/2021 Overview: Added automatically from request for surgery [id number] Acute pulmonary edema 01/19/2011 01/20/2011 Overview: 01/19/2011 [...] 01/12/2011 02/02/2011 Overview: age 70, lives in [place]. No DC needs. / Pre-op testing [...] of this encounter (statuses as of 03/04/2022) [facility] History of Past illness Narrative* Problem Noted Date Resolved Date Medicare annual wellness visit, subsequent 10/0202/18/2019 Encounter for long-term (current) use of medicat ions 09/07/2017 05/07/2021 Overview: Added automatically from request for surgery [id number] History of colonic polyps 09/07/20172021 Overview: Added automatically from request for surgery [id number] Gastroesophageal reflux disease 09/07/2017 05/07/2021 Overview: Added automatically from request for surgery [id number] Acute pulmonary edema 01/19/2011 01/20/2011 Overview: 01/19/2011 [...] 01/12/2011 02/02/2011 Overview: age 70, lives in [place]. No DC needs. / Pre-op testing [...] of this encounter (statuses as of 03/07/2022) [facility] History of Past illness Narrative* Problem Noted Date Resolved Date Medicare annual wellness visit, subsequent 10/0202/18/2019 Encounter for long-term (current) use of medicat ions 09/07/2017 05/07/2021 Overview: Added automatically from request for surgery [id number] History of colonic polyps 09/07/20172021 Overview: Added automatically from request for surgery [id number] Gastroesophageal reflux disease 09/07/2017 05/07/2021 Overview: Added automatically from request for surgery [id number] Acute pulmonary edema 01/19/2011 01/20/2011 Overview: 01/19/2011 [...] 01/12/2011 02/02/2011 Overview: age 70, lives in [place]. No DC needs. / Pre-op testing [...] of this encounter (statuses as of 03/22/2022) [facility] History of Past illness Narrative* Problem Noted Date Resolved Date Medicare annual wellness visit, subsequent 10/0202/18/2019 Encounter for long-term (current) use of medicat ions 09/07/2017 05/07/2021 Overview: Added automatically from request for surgery [id number] History of colonic polyps 09/07/20172021 Overview: Added automatically from request for surgery [id number] Gastroesophageal reflux disease 09/07/2017 05/07/2021 Overview: Added automatically from request for surgery [id number] Acute pulmonary edema 01/19/2011 01/20/2011 Overview: 01/19/2011 [...] 01/12/2011 02/02/2011 Overview: age 70, lives in [place]. No DC needs. / Pre-op testing [...] of this encounter (statuses as of 04/23/2022) [facility] of Past illness Narrative* Problem Noted Date Resolved Date Medicare annual wellness visit, subsequent 10/0202/18/2019 Encounter for long-term (current) use of medicat ions 09/07/2017 05/07/2021 Overview: Added automatically from request for surgery [id number] History of colonic polyps 09/07/20172021 Overview: Added automatically from request for surgery [id number] Gastroesophageal reflux disease 09/07/2017 05/07/2021 Overview: Added automatically from request for surgery [id number] Acute pulmonary edema 01/19/2011 01/20/2011 Overview: 01/19/2011 [...] 01/12/2011 02/02/2011 Overview: age 70, lives in [place]. No DC needs. / Pre-op testing [...] of this encounter (statuses as of 05/03/2022) [facility] of Past illness Narrative* Problem Noted Date Resolved Date Medicare annual wellness visit, subsequent 10/0202/18/2019 Encounter for long-term (current) use of medicat ions 09/07/2017 05/07/2021 Overview: Added automatically from request for surgery [id number] History of colonic polyps 09/07/20172021 Overview: Added automatically from request for surgery [id number] Gastroesophageal reflux disease 09/07/2017 05/07/2021 Overview: Added automatically from request for surgery [id number] Acute pulmonary edema 01/19/2011 01/20/2011 Overview: 01/19/2011 [...] 01/12/2011 02/02/2011 Overview: age 70, lives in [place]. No DC needs. / Pre-op testing [...] of this encounter (statuses as of 05/05/2022) [facility] of Past illness Narrative* Problem Noted Date Resolved Date Medicare annual wellness visit, subsequent 10/0202/18/2019 Encounter for long-term (current) use of medicat ions 09/07/2017 05/07/2021 Overview: Added automatically from request for surgery [id number] History of colonic polyps 09/07/20172021 Overview: Added automatically from request for surgery [id number] Gastroesophageal reflux disease 09/07/2017 05/07/2021 Overview: Added automatically from request for surgery [id number] Acute pulmonary edema 01/19/2011 01/20/2011 Overview: 01/19/2011 [...] 01/12/2011 02/02/2011 Overview: age 70, lives in [place]. No DC needs. / Pre-op testing [...] of this encounter (statuses as of 05/06/2022) [facility] of Past illness Narrative* Problem Noted Date Resolved Date Medicare annual wellness visit, subsequent 10/0202/18/2019 Encounter for long-term (current) use of medicat ions 09/07/2017 05/07/2021 Overview: Added automatically from request for surgery [id number] History of colonic polyps 09/07/20172021 Overview: Added automatically from request for surgery [id number] Gastroesophageal reflux disease 09/07/2017 05/07/2021 Overview: Added automatically from request for surgery [id number] Acute pulmonary edema 01/19/2011 01/20/2011 Overview: 01/19/2011 [...] 01/12/2011 02/02/2011 Overview: age 70, lives in [place]. No DC needs. / Pre-op testing [...] of this encounter (statuses as of 05/09/2022) [facility] of Past illness Narrative* Problem Noted Date Resolved Date Medicare annual wellness visit, subsequent 10/0202/18/2019 Encounter for long-term (current) use of medicat ions 09/07/2017 05/07/2021 Overview: Added automatically from request for surgery [id number] History of colonic polyps 09/07/20172021 Overview: Added automatically from request for surgery [id number] Gastroesophageal reflux disease 09/07/2017 05/07/2021 Overview: Added automatically from request for surgery [id number] Acute pulmonary edema 01/19/2011 01/20/2011 Overview: 01/19/2011 [...] 01/12/2011 02/02/2011 Overview: age 70, lives in [place]. No DC needs. / Pre-op testing [...] of this encounter (statuses as of 05/09/2022) [facility] of Past illness Narrative* Problem Noted Date Resolved Date Medicare annual wellness visit, subsequent 10/0202/18/2019 Encounter for long-term (current) use of medicat ions 09/07/2017 05/07/2021 Overview: Added automatically from request for surgery [id number] History of colonic polyps 09/07/20172021 Overview: Added automatically from request for surgery [id number] Gastroesophageal reflux disease 09/07/2017 05/07/2021 Overview: Added automatically from request for surgery [id number] Acute pulmonary edema 01/19/2011 01/20/2011 Overview: 01/19/2011 [...] 01/12/2011 02/02/2011 Overview: age 70, lives in [place]. No DC needs. / Pre-op testing [...] of this encounter (statuses as of 05/11/2022) [facility] of Past illness Narrative* Problem Noted Date Resolved Date Medicare annual wellness visit, subsequent 10/0202/18/2019 Encounter for long-term (current) use of medicat ions 09/07/2017 05/07/2021 Overview: Added automatically from request for surgery [id number] History of colonic polyps 09/07/20172021 Overview: Added automatically from request for surgery [id number] Gastroesophageal reflux disease 09/07/2017 05/07/2021 Overview: Added automatically from request for surgery [id number] Acute pulmonary edema 01/19/2011 01/20/2011 Overview: 01/19/2011 [...] 01/12/2011 02/02/2011 Overview: age 70, lives in [place]. No DC needs. / Pre-op testing [...] of this encounter (statuses as of 05/12/2022) [facility] Narrative* Problem Noted Date Resolved Date Medicare annual wellness visit, subsequent 10/0202/18/2019 Encounter for long-term (current) use of medicat ions 09/07/2017 05/07/2021 Overview: Added automatically from request for surgery [id number] History of colonic polyps 09/07/20172021 Overview: Added automatically from request for surgery [id number] Gastroesophageal reflux disease 09/07/2017 05/07/2021 Overview: Added automatically from request for surgery [id number] Acute pulmonary edema 01/19/2011 01/20/2011 Overview: 01/19/2011 [...] 01/12/2011 02/02/2011 Overview: age 70, lives in [place]. No DC needs. / Pre-op testing [...] of this encounter (statuses as of 05/13/2022) [facility] Narrative* Problem Noted Date Resolved Date Medicare annual wellness visit, subsequent 10/0202/18/2019 Encounter for long-term (current) use of medicat ions 09/07/2017 05/07/2021 Overview: Added automatically from request for surgery [id number] History of colonic polyps 09/07/20172021 Overview: Added automatically from request for surgery [id number] Gastroesophageal reflux disease 09/07/2017 05/07/2021 Overview: Added automatically from request for surgery [id number] Acute pulmonary edema 01/19/2011 01/20/2011 Overview: 01/19/2011 [...] 01/12/2011 02/02/2011 Overview: age 70, lives in [place]. No DC needs. / Pre-op testing [...] of this encounter (statuses as of 05/15/2022) [facility] Narrative* Problem Noted Date Resolved Date Medicare annual wellness visit, subsequent 10/0202/18/2019 Encounter for long-term (current) use of medicat ions 09/07/2017 05/07/2021 Overview: Added automatically from request for surgery [id number] History of colonic polyps 09/07/20172021 Overview: Added automatically from request for surgery [id number] Gastroesophageal reflux disease 09/07/2017 05/07/2021 Overview: Added automatically from request for surgery [id number] Acute pulmonary edema 01/19/2011 01/20/2011 Overview: 01/19/2011 [...] 01/12/2011 02/02/2011 Overview: age 70, lives in [place]. No DC needs. / Pre-op testing [...] of this encounter (statuses as of 05/17/2022) [facility] of Past illness Narrative* Problem Noted Date Resolved Date Medicare annual wellness visit, subsequent 10/0202/18/2019 Encounter for long-term (current) use of medicat ions 09/07/2017 05/07/2021 Overview: Added automatically from request for surgery [id number] History of colonic polyps 09/07/20172021 Overview: Added automatically from request for surgery [id number] Gastroesophageal reflux disease 09/07/2017 05/07/2021 Overview: Added automatically from request for surgery [id number] Acute pulmonary edema 01/19/2011 01/20/2011 Overview: 01/19/2011 [...] 01/12/2011 02/02/2011 Overview: age 70, lives in [place]. No DC needs. / Pre-op testing [...] of this encounter (statuses as of 05/18/2022) [facility] of [facility] illness Narrative* Problem Noted Date Resolved Date Medicare annual wellness visit, subsequent 10/0202/18/2019 Encounter for long-term (current) use of medicat ions 09/07/2017 05/07/2021 Overview: Added automatically from request for surgery [id number] History of colonic polyps 09/07/20172021 Overview: Added automatically from request for surgery [id number] Gastroesophageal reflux disease 09/07/2017 05/07/2021 Overview: Added automatically from request for surgery [id number] Acute pulmonary edema 01/19/2011 01/20/2011 Overview: 01/19/2011 [...] 01/12/2011 02/02/2011 Overview: age 70, lives in [place]. No DC needs. / Pre-op testing [...] of this encounter (statuses as of 05/20/2022) [facility] of [facility] illness Narrative* Problem Noted Date Resolved Date Medicare annual wellness visit, subsequent 10/0202/18/2019 Encounter for long-term (current) use of medicat ions 09/07/2017 05/07/2021 Overview: Added automatically from request for surgery [id number] History of colonic polyps 09/07/20172021 Overview: Added automatically from request for surgery [id number] Gastroesophageal reflux disease 09/07/2017 05/07/2021 Overview: Added automatically from request for surgery [id number] Acute pulmonary edema 01/19/2011 01/20/2011 Overview: 01/19/2011 [...] 01/12/2011 02/02/2011 Overview: age 70, lives in [place]. No DC needs. 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 09/0 04/2014 Obesity, Class III, BMI 40-49.9 (morbid obesity) 04/22/2020 documented as of this encounter (statuses as of 05/25/2022) [facility] of Past illness Narrative* Problem Noted Date Resolved Date Medicare annual wellness visit, subsequent 10/0202/18/2019 Encounter for long-term (current) use of medicat ions 09/07/2017 05/07/2021 Overview: Added automatically from request for surgery [id number] History of colonic polyps 09/07/20172021 Overview: Added automatically from request for surgery [id number] Gastroesophageal reflux disease 09/07/2017 05/07/2021 Overview: Added automatically from request for surgery [id number] Acute pulmonary edema 01/19/2011 01/20/2011 Overview: 01/19/2011 [...] 01/12/2011 02/02/2011 Overview: age 70, lives in [place]. No DC needs. / Pre-op testing [...] of this encounter (statuses as of 05/27/2022) [facility] of Past illness Narrative* Problem Noted Date Resolved Date Medicare annual wellness visit, subsequent 10/0202/18/2019 Encounter for long-term (current) use of medicat ions 09/07/2017 05/07/2021 Overview: Added automatically from request for surgery [id number] History of colonic polyps 09/07/20172021 Overview: Added automatically from request for surgery [id number] Gastroesophageal reflux disease 09/07/2017 05/07/2021 Overview: Added automatically from request for surgery [id number] Acute pulmonary edema 01/19/2011 01/20/2011 Overview: 01/19/2011 [...] 01/12/2011 02/02/2011 Overview: age 70, lives in [place]. No DC needs. / Pre-op testing [...] of this encounter (statuses as of 05/31/2022) [facility] Past illness Narrative* Problem Noted Date Resolved Date Medicare annual wellness visit, subsequent 10/0202/18/2019 Encounter for long-term (current) use of medicat ions 09/07/2017 05/07/2021 Overview: Added automatically from request for surgery [id number] History of colonic polyps 09/07/20172021 Overview: Added automatically from request for surgery [id number] Gastroesophageal reflux disease 09/07/2017 05/07/2021 Overview: Added automatically from request for surgery [id number] Acute pulmonary edema 01/19/2011 01/20/2011 Overview: 01/19/2011 [...] 01/12/2011 02/02/2011 Overview: age 70, lives in [place], [place]. No DC needs. / Pre-op testing [...] of this encounter (statuses as of 06/02/2022) [facility] History of Past illness Narrative* Problem Noted Date Resolved Date Medicare annual wellness visit, subsequent 10/0202/18/2019 Encounter for long-term (current) use of medicat ions 09/07/2017 05/07/2021 Overview: Added automatically from request for surgery [id number] History of colonic polyps 09/07/20172021 Overview: Added automatically from request for surgery [id number] Gastroesophageal reflux disease 09/07/2017 05/07/2021 Overview: Added automatically from request for surgery [id number] Acute pulmonary edema 01/19/2011 01/20/2011 Overview: 01/19/2011 [...] 01/12/2011 02/02/2011 Overview: age 70, lives in [place], [place]. No DC needs. / Pre-op testing [...] of this encounter (statuses as of 06/10/2022) [facility] of Past illness Narrative* Problem Noted Date Resolved Date Medicare annual wellness visit, subsequent 10/0202/18/2019 Encounter for long-term (current) use of medicat ions 09/07/2017 05/07/2021 Overview: Added automatically from request for surgery [id number] History of colonic polyps 09/07/20172021 Overview: Added automatically from request for surgery [id number] Gastroesophageal reflux disease 09/07/2017 05/07/2021 Overview: Added automatically from request for surgery [id number] Acute pulmonary edema 01/19/2011 01/20/2011 Overview: 01/19/2011 [...] 01/12/2011 02/02/2011 Overview: age 70, lives in [place]. No DC needs. / Pre-op testing [...] of this encounter (statuses as of 06/10/2022) [facility] of Past illness Narrative* Problem Noted Date Resolved Date Medicare annual wellness visit, subsequent 10/0202/18/2019 Encounter for long-term (current) use of medicat ions 09/07/2017 05/07/2021 Overview: Added automatically from request for surgery [id number] History of colonic polyps 09/07/20172021 Overview: Added automatically from request for surgery [id number] Gastroesophageal reflux disease 09/07/2017 05/07/2021 Overview: Added automatically from request for surgery [id number] Acute pulmonary edema 01/19/2011 01/20/2011 Overview: 01/19/2011 [...] 01/12/2011 02/02/2011 Overview: age 70, lives in [place]. No DC needs. / Pre-op testing [...] of this encounter (statuses as of 06/16/2022) [facility] of Past illness Narrative* Problem Noted Date Resolved Date Medicare annual wellness visit, subsequent 10/0202/18/2019 Encounter for long-term (current) use of medicat ions 09/07/2017 05/07/2021 Overview: Added automatically from request for surgery [id number] History of colonic polyps 09/07/20172021 Overview: Added automatically from request for surgery [id number] Gastroesophageal reflux disease 09/07/2017 05/07/2021 Overview: Added automatically from request for surgery [id number] Acute pulmonary edema 01/19/2011 01/20/2011 Overview: 01/19/2011 [...] 01/12/2011 02/02/2011 Overview: age 70, lives in [place]. No DC needs. / Pre-op testing [...] of this encounter (statuses as of 06/24/2022) [facility] of Past illness Narrative* Problem Noted Date Resolved Date Medicare annual wellness visit, subsequent 10/0202/18/2019 Encounter for long-term (current) use of medicat ions 09/07/2017 05/07/2021 Overview: Added automatically from request for surgery [id number] History of colonic polyps 09/07/20172021 Overview: Added automatically from request for surgery [id number] Gastroesophageal reflux disease 09/07/2017 05/07/2021 Overview: Added automatically from request for surgery [id number] Acute pulmonary edema 01/19/2011 01/20/2011 Overview: 01/19/2011 [...] 01/12/2011 02/02/2011 Overview: age 70, lives in [place]. No DC needs. / Pre-op testing [...] of this encounter (statuses as of 06/27/2022) [facility] of Past illness Narrative* Problem Noted Date Resolved Date Medicare annual wellness visit, subsequent 10/0202/18/2019 Encounter for long-term (current) use of medicat ions 09/07/2017 05/07/2021 Overview: Added automatically from request for surgery [id number] History of colonic polyps 09/07/20172021 Overview: Added automatically from request for surgery [id number] Gastroesophageal reflux disease 09/07/2017 05/07/2021 Overview: Added automatically from request for surgery [id number] Acute pulmonary edema 01/19/2011 01/20/2011 Overview: 01/19/2011 [...] 01/12/2011 02/02/2011 Overview: age 70, lives in [place]. No DC needs. / Pre-op testing [...] of this encounter (statuses as of 07/05/2022) [facility] Past illness Narrative* Problem Noted Date Resolved Date Medicare annual wellness visit, subsequent 10/0202/18/2019 Encounter for long-term (current) use of medicat ions 09/07/2017 05/07/2021 Overview: Added automatically from request for surgery [id number] History of colonic polyps 09/07/20172021 Overview: Added automatically from request for surgery [id number] Gastroesophageal reflux disease 09/07/2017 05/07/2021 Overview: Added automatically from request for surgery [id number] Acute pulmonary edema 01/19/2011 01/20/2011 Overview: 01/19/2011 [...] 01/12/2011 02/02/2011 Overview: age 70, lives in [place]. No DC needs. / Pre-op testing [...] of this encounter (statuses as of 07/13/2022) [facility] of [facility] illness Narrative* Problem Noted Date Resolved Date Medicare annual wellness visit, subsequent 10/0202/18/2019 Encounter for long-term (current) use of medicat ions 09/07/2017 05/07/2021 Overview: Added automatically from request for surgery [id number] History of colonic polyps 09/07/20172021 Overview: Added automatically from request for surgery [id number] Gastroesophageal reflux disease 09/07/2017 05/07/2021 Overview: Added automatically from request for surgery [id number] Acute pulmonary edema 01/19/2011 01/20/2011 Overview: 01/19/2011 [...] 01/12/2011 02/02/2011 Overview: age 70, lives in [place]. No DC needs. / Pre-op testing [...] of this encounter (statuses as of 07/27/2022) [facility] of [facility] illness Narrative* Problem Noted Date Resolved Date Medicare annual wellness visit, subsequent 10/0202/18/2019 Encounter for long-term (current) use of medicat ions 09/07/2017 05/07/2021 Overview: Added automatically from request for surgery [id number] History of colonic polyps 09/07/20172021 Overview: Added automatically from request for surgery [id number] Gastroesophageal reflux disease 09/07/2017 05/07/2021 Overview: Added automatically from request for surgery [id number] Acute pulmonary edema 01/19/2011 01/20/2011 Overview: 01/19/2011 [...] 01/12/2011 02/02/2011 Overview: age 70, lives in [place]. No DC needs. / Pre-op testing [...] of this encounter (statuses as of 07/27/2022) [facility] of Past illness Narrative* Problem Noted Date Resolved Date Medicare annual wellness visit, subsequent 10/0202/18/2019 Encounter for long-term (current) use of medicat ions 09/07/2017 05/07/2021 Overview: Added automatically from request for surgery [id number] History of colonic polyps 09/07/20172021 Overview: Added automatically from request for surgery [id number] Gastroesophageal reflux disease 09/07/2017 05/07/2021 Overview: Added automatically from request for surgery [id number] Acute pulmonary edema 01/19/2011 01/20/2011 Overview: 01/19/2011 [...] 01/12/2011 02/02/2011 Overview: age 70, lives in [place]. No DC needs. / Pre-op testing [...] of this encounter (statuses as of 07/27/2022) [facility] of Past illness Narrative* Problem Noted Date Resolved Date Medicare annual wellness visit, subsequent 10/0202/18/2019 Encounter for long-term (current) use of medicat ions 09/07/2017 05/07/2021 Overview: Added automatically from request for surgery [id number] History of colonic polyps 09/07/20172021 Overview: Added automatically from request for surgery [id number] Gastroesophageal reflux disease 09/07/2017 05/07/2021 Overview: Added automatically from request for surgery [id number] Acute pulmonary edema 01/19/2011 01/20/2011 Overview: 01/19/2011 [...] 01/12/2011 02/02/2011 Overview: age 70, lives in [place]. No DC needs. / Pre-op testing [...] of this encounter (statuses as of 07/27/2022) [facility] illness Narrative* Problem Noted Date Resolved Date Medicare annual wellness visit, subsequent 10/0202/18/2019 Encounter for long-term (current) use of medicat ions 09/07/2017 05/07/2021 Overview: Added automatically from request for surgery [id number] History of colonic polyps 09/07/20172021 Overview: Added automatically from request for surgery [id number] Gastroesophageal reflux disease 09/07/2017 05/07/2021 Overview: Added automatically from request for surgery [id number] Acute pulmonary edema 01/19/2011 01/20/2011 Overview: 01/19/2011 [...] 01/12/2011 02/02/2011 Overview: age 70, lives in [place]. No DC needs. / Pre-op testing [...] of this encounter (statuses as of 07/29/2022) [facility] Narrative* Problem Noted Date Resolved Date Medicare annual wellness visit, subsequent 10/0202/18/2019 Encounter for long-term (current) use of medicat ions 09/07/2017 05/07/2021 Overview: Added automatically from request for surgery [id number] History of colonic polyps 09/07/20172021 Overview: Added automatically from request for surgery [id number] Gastroesophageal reflux disease 09/07/2017 05/07/2021 Overview: Added automatically from request for surgery [id number] Acute pulmonary edema 01/19/2011 01/20/2011 Overview: 01/19/2011 [...] 01/12/2011 02/02/2011 Overview: age 70, lives in [place]. No DC needs. / Pre-op testing [...] of this encounter (statuses as of 08/06/2022) [facility] Narrative* Problem Noted Date Resolved Date Medicare annual wellness visit, subsequent 10/0202/18/2019 Encounter for long-term (current) use of medicat ions 09/07/2017 05/07/2021 Overview: Added automatically from request for surgery [id number] History of colonic polyps 09/07/20172021 Overview: Added automatically from request for surgery [id number] Gastroesophageal reflux disease 09/07/2017 05/07/2021 Overview: Added automatically from request for surgery [id number] Acute pulmonary edema 01/19/2011 01/20/2011 Overview: 01/19/2011 [...] 01/12/2011 02/02/2011 Overview: age 70, lives in [place]. No DC needs. / Pre-op testing [...] of this encounter (statuses as of 08/10/2022) [facility] Narrative* Problem Noted Date Resolved Date Medicare annual wellness visit, subsequent 10/0202/18/2019 Encounter for long-term (current) use of medicat ions 09/07/2017 05/07/2021 Overview: Added automatically from request for surgery [id number] History of colonic polyps 09/07/20172021 Overview: Added automatically from request for surgery [id number] Gastroesophageal reflux disease 09/07/2017 05/07/2021 Overview: Added automatically from request for surgery [id number] Acute pulmonary edema 01/19/2011 01/20/2011 Overview: 01/19/2011 [...] 01/12/2011 02/02/2011 Overview: age 70, lives in [place]. No DC needs. / Pre-op testing [...] of this encounter (statuses as of 08/16/2022) [facility] Narrative* Problem Noted Date Resolved Date Medicare annual wellness visit, subsequent 10/0202/18/2019 Encounter for long-term (current) use of medicat ions 09/07/2017 05/07/2021 Overview: Added automatically from request for surgery [id number] History of colonic polyps 09/07/20172021 Overview: Added automatically from request for surgery [id number] Gastroesophageal reflux disease 09/07/2017 05/07/2021 Overview: Added automatically from request for surgery [id number] Acute pulmonary edema 01/19/2011 01/20/2011 Overview: 01/19/2011 [...] 01/12/2011 02/02/2011 Overview: age 70, lives in [place]. No DC needs. / Pre-op testing [...] of this encounter (statuses as of 08/18/2022) [facility] of [facility] Narrative* Problem Noted Date Resolved Date Medicare annual wellness visit, subsequent 10/0202/18/2019 Encounter for long-term (current) use of medicat ions 09/07/2017 05/07/2021 Overview: Added automatically from request for surgery [id number] History of colonic polyps 09/07/20172021 Overview: Added automatically from request for surgery [id number] Gastroesophageal reflux disease 09/07/2017 05/07/2021 Overview: Added automatically from request for surgery [id number] Acute pulmonary edema 01/19/2011 01/20/2011 Overview: 01/19/2011 [...] 01/12/2011 02/02/2011 Overview: age 70, lives in [place]. No DC needs. / Pre-op testing [...] of this encounter (statuses as of 08/19/2022) [facility] Narrative* Problem Noted Date Resolved Date Medicare annual wellness visit, subsequent 10/0202/18/2019 Encounter for long-term (current) use of medicat ions 09/07/2017 05/07/2021 Overview: Added automatically from request for surgery [id number] History of colonic polyps 09/07/20172021 Overview: Added automatically from request for surgery [id number] Gastroesophageal reflux disease 09/07/2017 05/07/2021 Overview: Added automatically from request for surgery [id number] Acute pulmonary edema 01/19/2011 01/20/2011 Overview: 01/19/2011 [...] 01/12/2011 02/02/2011 Overview: age 70, lives in [place]. No DC needs. / Pre-op testing [...] of this encounter (statuses as of 08/20/2022) [facility] Narrative* Problem Noted Date Resolved Date Medicare annual wellness visit, subsequent 10/0202/18/2019 Encounter for long-term (current) use of medicat ions 09/07/2017 05/07/2021 Overview: Added automatically from request for surgery [id number] History of colonic polyps 09/07/20172021 Overview: Added automatically from request for surgery [id number] Gastroesophageal reflux disease 09/07/2017 05/07/2021 Overview: Added automatically from request for surgery [id number] Acute pulmonary edema 01/19/2011 01/20/2011 Overview: 01/19/2011 [...] 01/12/2011 02/02/2011 Overview: age 70, lives in [place]. No DC needs. / Pre-op testing [...] of this encounter (statuses as of 08/22/2022) [facility] Narrative* Problem Noted Date Resolved Date Medicare annual wellness visit, subsequent 10/0202/18/2019 Encounter for long-term (current) use of medicat ions 09/07/2017 05/07/2021 Overview: Added automatically from request for surgery [id number] History of colonic polyps 09/07/20172021 Overview: Added automatically from request for surgery [id number] Gastroesophageal reflux disease 09/07/2017 05/07/2021 Overview: Added automatically from request for surgery [id number] Acute pulmonary edema 01/19/2011 01/20/2011 Overview: 01/19/2011 [...] 01/12/2011 02/02/2011 Overview: age 70, lives in [place]. No DC needs. / Pre-op testing [...] of this encounter (statuses as of 09/15/2022) [facility] Narrative* Problem Noted Date Resolved Date Medicare annual wellness visit, subsequent 10/0202/18/2019 Encounter for long-term (current) use of medicat ions 09/07/2017 05/07/2021 Overview: Added automatically from request for surgery [id number] History of colonic polyps 09/07/20172021 Overview: Added automatically from request for surgery [id number] Gastroesophageal reflux disease 09/07/2017 05/07/2021 Overview: Added automatically from request for surgery [id number] Acute pulmonary edema 01/19/2011 01/20/2011 Overview: 01/19/2011 [...] 01/12/2011 02/02/2011 Overview: age 70, lives in [place]. No DC needs. / Pre-op testing [...] of this encounter (statuses as of 09/20/2022) [facility] Narrative* Problem Noted Date Resolved Date Medicare annual wellness visit, subsequent 10/0202/18/2019 Encounter for long-term (current) use of medicat ions 09/07/2017 05/07/2021 Overview: Added automatically from request for surgery [id number] History of colonic polyps 09/07/20172021 Overview: Added automatically from request for surgery [id number] Gastroesophageal reflux disease 09/07/2017 05/07/2021 Overview: Added automatically from request for surgery [id number] Acute pulmonary edema 01/19/2011 01/20/2011 Overview: 01/19/2011 [...] 01/12/2011 02/02/2011 Overview: age 70, lives in [place]. No DC needs. / Pre-op testing [...] of this encounter (statuses as of 09/20/2022) [facility] Narrative* Problem Noted Date Resolved Date Medicare annual wellness visit, subsequent 10/0202/18/2019 Encounter for long-term (current) use of medicat ions 09/07/2017 05/07/2021 Overview: Added automatically from request for surgery [id number] History of colonic polyps 09/07/20172021 Overview: Added automatically from request for surgery [id number] Gastroesophageal reflux disease 09/07/2017 05/07/2021 Overview: Added automatically from request for surgery [id number] Acute pulmonary edema 01/19/2011 01/20/2011 Overview: 01/19/2011 [...] 01/12/2011 02/02/2011 Overview: age 70, lives in [place]. No DC needs. / Pre-op testing [...] of this encounter (statuses as of 09/22/2022) [facility] Narrative* Problem Noted Date Resolved Date Medicare annual wellness visit, subsequent 10/0202/18/2019 Encounter for long-term (current) use of medicat ions 09/07/2017 05/07/2021 Overview: Added automatically from request for surgery [id number] History of colonic polyps 09/07/20172021 Overview: Added automatically from request for surgery [id number] Gastroesophageal reflux disease 09/07/2017 05/07/2021 Overview: Added automatically from request for surgery [id number] Acute pulmonary edema 01/19/2011 01/20/2011 Overview: 01/19/2011 [...] 01/12/2011 02/02/2011 Overview: age 70, lives in [place]. No DC needs. / Pre-op testing [...] of this encounter (statuses as of 09/30/2022) [facility] Narrative* Problem Noted Date Resolved Date Medicare annual wellness visit, subsequent 10/0202/18/2019 Encounter for long-term (current) use of medicat ions 09/07/2017 05/07/2021 Overview: Added automatically from request for surgery [id number] History of colonic polyps 09/07/20172021 Overview: Added automatically from request for surgery [id number] Gastroesophageal reflux disease 09/07/2017 05/07/2021 Overview: Added automatically from request for surgery [id number] Acute pulmonary edema 01/19/2011 01/20/2011 Overview: 01/19/2011 [...] 01/12/2011 02/02/2011 Overview: age 70, lives in [place]. No DC needs. / Pre-op testing [...] of this encounter (statuses as of 10/21/2022) [facility] Narrative* Problem Noted Date Diagnosed Date Resolved Date Medicare annual wellness visit, subsequent 10/02/2018 02/18/2019 Encounter for long-term (cur rent) use of medications 09/07/2017 05/07/2021 Overview: Added automatically from request for surgery [id number] History of colonic polyps 09/07/2017 Overview: Added automatically from request for surgery [id number] Gastroesophageal reflux disease 09/07/2017 05/07/2021 Overview: Added automatically from request for surgery [id number] Acute pulmonary edema 01/19/20112010 Overview: 01/19/2011 cardiogenic [...] 01/12/2011 1 Overview: age 70, lives in [place]. No DC needs. / Pre-op testing [...] of this encounter (statuses as of 11/01/2022) [facility] Narrative* Problem Noted Date Diagnosed Date Resolved Date Medicare annual wellness visit, subsequent 10/02/2018 02/18/2019 Encounter for long-term (cur rent) use of medications 09/07/2017 05/07/2021 Overview: Added automatically from request for surgery [id number] History of colonic polyps 09/07/2017 Overview: Added automatically from request for surgery [id number] Gastroesophageal reflux disease 09/07/2017 05/07/2021 Overview: Added automatically from request for surgery [id number] Acute pulmonary edema 01/19/20112010 Overview: 01/19/2011 cardiogenic [...] 01/12/2011 1 Overview: age 70, lives in [place]. No DC needs. / Pre-op testing [...] of this encounter (statuses as of 11/03/2022) [facility] Narrative* Problem Noted Date Diagnosed Date Resolved Date Medicare annual wellness visit, subsequent 10/02/2018 02/18/2019 Encounter for long-term (cur rent) use of medications 09/07/2017 05/07/2021 Overview: Added automatically from request for surgery [id number] History of colonic polyps 09/07/2017 Overview: Added automatically from request for surgery [id number] Gastroesophageal reflux disease 09/07/2017 05/07/2021 Overview: Added automatically from request for surgery [id number] Acute pulmonary edema 01/19/20112010 Overview: 01/19/2011 cardiogenic [...] 01/12/2011 1 Overview: age 70, lives in [place]. No DC needs. / Pre-op testing [...] of this encounter (statuses as of 11/04/2022) [facility] Essential hypertension- Primary Unspecified essential hypertension [facility] Diagnosis Gastroesophageal reflux disease, unspecified whether esophagitis present Essential hypertension Unspecified essential hypertension Mixed hyperlipidemia Aortic valve disorder Aortic valve disorders Coronary artery disease involving [place] coronary artery of [place] heart without angina pectoris [facility] Diagnosis Adenomatous polyp of colon, unspecified part of colon- Primary Impaired fasting glucose Stage 3 chronic kidney disease, unspecified whether stage 3a or 3b CKD (HCC) Essential hypertension Unspecified essential hypertension Anemia of chronic disease Anemia of other chronic disease Thrombocytopenia (HCC) Thrombocytopenia, unspecified [facility] Diagnosis Peripheral polyneuropathy- Primary Unspecified hereditary and idiopathic peripheral neuropathy Frequent falls Personal history of fall Contusion of hip, unspecified laterality, subsequent encounter Muscular weakness Muscle weakness (generalized) Abnormality of gait [facility] Frequent falls- Primary Personal history of fall Peripheral polyneuropathy Unspecified hereditary and idiopathic peripheral neuropathy [facility] Peripheral polyneuropathy- Primary Unspecified hereditary and idiopathic peripheral neuropathy Abnormality of gait Stage 3a chronic kidney disease (HCC) Essential hypertension Unspecified essential hypertension [facility] Diagnosis Personal history of falling, presenting hazards to health- Primary Personal history of fall Peripheral polyneuropathy Unspecified hereditary and idiopathic peripheral neuropathy Abnormality of gait [facility] Monoclonal gammopathy- Primary Monoclonal paraproteinemia Macrocytic anemia Unspecified deficiency anemia Thrombocytopenia (HCC) Thrombocytopenia, unspecified [facility] Cirrhosis of liver without ascites, unspecified hepatic cirrhosis type (HCC)- Primary Splenomegaly Liver lesion Other specified disorders of liver Metabolic syndrome Dysmetabolic Syndrome X Lower extremity edema Edema Healthcare maintenance Routine general medical examination at a health care facility documented in this encounter [place] [facility]* Diagnosis Cirrhosis of liver without ascites, unspecified hepatic cirrhosis type (HCC)- Primary Claustrophobia Other isolated or specific phobias [facility] Stasis dermatitis of both legs- Primary Varicose veins of lower extremities with inflammation Local skin infection Unspecified local infection of skin and subcutaneous tissue Urge incontinence of urine Urge incontinence Peripheral polyneuropathy Unspecified hereditary and idiopathic peripheral neuropathy [facility] Diagnosis 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 [facility] Diagnosis 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 [facility] Diagnosis Iron deficiency anemia, unspecified iron deficiency anemia type- Primary History of colonic polyps Personal history of colonic polyps History of cirrhosis Personal history of other diseases of digestive system [facility] Diagnosis Cirrhosis of liver without [...] of liver, primary [facility] Diagnosis Hepatocellular carcinoma (HCC)- Primary Malignant neoplasm of liver, primary Cirrhosis of liver without ascites, unspecified hepatic cirrhosis type (HCC) [facility] Diagnosis Cirrhosis of liver without ascites, unspecified hepatic cirrhosis type (HCC)- Primary [facility] Diagnosis Hepatocellular carcinoma (HCC)- Primary Malignant neoplasm of liver, primary [facility] Diagnosis Hepatocellular carcinoma (HCC)- Primary Malignant neoplasm of liver, primary [facility]* Diagnosis Unspecified essential hypertension Urge incontinence of urine Urge incontinence [facility] Diagnosis Coronary artery disease involving chickaloon coronary artery of chick[place] heart without angina pectoris Urge incontinence of urine Urge incontinence [facility] Diagnosis Iron deficiency anemia due to chronic blood loss- Primary Iron deficiency anemia secondary to blood loss (chronic) Macrocytic anemia Unspecified deficiency anemia Hepatocellular carcinoma (HCC) Malignant neoplasm of liver, primary Thrombocytopenia (HCC) Thrombocytopenia, unspecified Hyperparathyroidism (HCC) Hyperparathyroidism, unspecified MGUS (monoclonal gammopathy of unknown significance) Monoclonal paraproteinemia [facility] Diagnosis New onset atrial flutter (HCC)- Primary Atrial flutter Coronary artery disease involving chickaloon coronary artery of chick[place] heart without angina pectoris [facility] Diagnosis 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 [facility] Diagnosis Iron deficiency anemia due to [...] specified intestinal malabsorption documented in this encounter [facility] note* Diagnosis 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 [facility] Diagnosis Melena- Primary Blood in stool documented in this encounter [facility] note* Diagnosis Monoclonal gammopathy Monoclonal paraproteinemia Macrocytic anemia Unspecified deficiency anemia Thrombocytopenia (HCC) Thrombocytopenia, unspecified documented in this encounter [facility] note* Diagnosis Liver disease Unspecified disorder of liver documented in this encounter [facility] Plan of care [facility]* Visit [...] & Living Will. [facility] Visit Details [...] front wheeled walker documented in this encounter [facility] Plan of care note* Visit Details Visit Type -CUT OUT MACHINE OPERATOR ROUTINE Discipline -Physical Therapy Problems Problem Description [...] to: caregiver assistance. 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 documented in this encounter [facility] home Plan of care note* Visit [...] rest and positioning/elevation. 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 documented in this encounter [facility] Plan of care note* Visit [...] without ongoing services. [facility] Visit Details Visit Type -CUT OUT MACHINE OPERATOR ROUTINE Discipline -Physical Therapy Problems Problem Description [...] without ongoing services. documented in this encounter [facility] home Plan of care note* Visit Details Visit Type -CUT OUT MACHINE OPERATOR ROUTINE Discipline -Physical Therapy Problems Problem Description [...] to: caregiver assistance. 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 , has no toe off [...] with community assistance [facility] Diagnostic Procedure Only (Routine) - Closed Specialty Diagnoses / Procedures Referred By Steve anaya Referred To Contact XR IMAGING Diagnoses Monoclonal gammopathy Procedures XR BONE SURVEY ROUTINE RADIOLOGIC EXAMINATION OSSEOUS SURVEY COMPL Yuniel Dahl DO [address] [place] [place] [address] Xr Imaging Referral ID Status Reason Start Date Expiration Date V isits Requested Visits Authorized [id number] Closed Auto-Generate d Referral 03/22/2022 04/21/2023 1 1 * Diagnostic Procedure Only (Routine) - Authorized Specialty Diagnoses / Procedures Referred By Steve anaya Referred To Contact US IMAGING Diagnoses Monoclonal gammopathy Macrocytic anemia Thrombocytopenia (HCC) Procedures US ABD RT UPPER QUADRANT US ABDOMINAL REAL TIME W/IMAGE LIMITED Yuniel Dahl, DO [address] [place] [address] Us Imaging Referral ID Status Reason Start Date Expiration Date Visits Requested Visits Authorized [id number] Authorized Auto-Generat ed Referral 03/22/2022 04/21/2023 1 1 [facility] for referral (narrative)* Outpatient Procedure (Routine) - Authorized Specialty Diagnoses / Procedures Referred By Steve t Referred To Contact [facility] [place] Diagnoses Melena Procedures EGD - THERAPEUTIC, EUS, OR TUBE INTERVENTIONS EGD BAND LIGATION ESOPHGEAL/GASTRIC VARICES Haley Hampton MD [address] [place] [address] [place] [address] Referral ID Status Reason Start Date Expiration Date Visits Requested Visits Authorized [id number] Authorized Auto-Generat ed Referral 3 02/03/2024 1 1 [facility] for referral (narrative)* Diagnostic Procedure Only (Routine) - Closed Specialty Diagnoses / Procedures Referred By Contac t Referred To Contact US IMAGING Diagnoses Monoclonal gammopathy Macrocytic anemia Thrombocytopenia (HCC) Procedures US ABD RT UPPER QUADRANT US ABDOMINAL REAL TIME W/IMAGE LIMITED Yuniel Dahl DO [address] [facility] [place] [place] [address] [place] [id number] Referral ID Status Reason Start Date Expiration Date V isits Requested Visits Authorized [id number] Closed Auto-Generate d Referral 03/22/2022 04/21/2023 1 1 [facility] Summary Purpose Family History No Family History Records FoundNo Family History Records FoundNo Family History Records FoundNo Family History Records FoundNo Family History Records FoundNo Family History Records Found Advance Directives No Advanced Directives Records FoundDocuments on File Type Date Recorded Patient Health Aid Expl anation Advance Directive(s) 05/09/2019 9:27 AM Advance Directive(s) 04/24/2019 5:47 PM Advance Directive(s) 10/02/2017 11:22 AM Documents on File Type Date Recorded Patient Health Aid Expl anation Advance Directive(s) 05/09/2019 9:27 AM [...] Procedures CONSULT TO GASTROENTEROLOGY Ricky Bradley MD [address] [place] [address] Referral ID Status Reason Start Date Expiration Date Visits Requested Visits Authorized [id number] Ref Not Required PCP Requested Referral 11/04/2021 11/04/2022 1 1 Specialty Diagnoses / Procedures Referred By Contac t Referred To Contact Diagnoses Peripheral polyneuropathy Frequent falls Contusion of hip, unspecified laterality, subsequent encounter Muscular weakness Abnormality of gait Procedures CONSULT TO [facility] Ricky Bradley MD [address] [place] [address] [address] [place] [id number] Referral ID Status Reason Start Date Expiration Date Visits Requested Visits Authorized [id number] Authorized PCP Requested Referral 12/11/2021 03/11/2022 1 1 Specialty Diagnoses / Procedures Referred By Contac t Referred To Contact Diagnoses Frequent falls Peripheral polyneuropathy Procedures CONSULT TO NEUROLOGY Ricky Bradley MD [address] [place] [address] Referral ID Status Reason Start Date Expiration Date Visits Requested Visits Authorized [id number] Ref Not Required PCP Requested Referral 01/19/2022 01/17/2023 1 1 Specialty Diagnoses / Procedures Referred By Contac t Referred To Contact [facility] Diagnoses Peripheral polyneuropathy Abnormality of gait Procedures 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 OCCUPATIONAL THERAPY EVAL HIGH COMPLEX 60 MINS Ricky Bradley MD [address] [place] [address] [facility] [place] [address] [place] [address] Referral ID Status Reason Start Date Expiration Date Visits Requested Visits Authorized [id number] Authorized PCP Requested Referral Auto-Generate d Referral 01/31/2023 99 99 Specialty Diagnoses / Procedures Referred By Contac t Referred To Contact MR IMAGING Diagnoses Cirrhosis of liver without ascites, unspecified hepatic cirrhosis type (HCC) Liver mass Splenomegaly Procedures MRI LIVER WO/W IVCON MRI ABDOMEN W/O & W/CONTRAST MATERIAL Kai Alvarado PA-C [address] [place] [address] Mr Imaging Referral ID Status Reason Start Date Expiration Date Visits Requested Visits Authorized [id number] Pending Review Auto-Generat ed Referral 05/13/2022 06/12/2023 1 1 Referral ID Status Reason Start Date Expiration Date V isits Requested Visits Authorized [id number] Closed Auto-Generate d Referral 05/13/2022 06/12/2023 1 1 Specialty Diagnoses / Procedures Referred By Contac t Referred To Contact Diagnoses Hepatocellular carcinoma (HCC) Procedures CT SIM PLANNING RADIATION ONCOLOGY THER RAD SIMULAJ-AIDED [place] [address] [place] [address] Referral ID Status Reason Start Date Expiration Date Visits Requested Visits Authorized [id number] Pending Review PCP Requested Referral 08/16/2022 11/13/2022 1 1 Specialty Diagnoses / Procedures Referred By Steve anaya Referred To Contact [facility] IMAGING Diagnoses Liver disease Procedures MRI LIVER WO/W IVCON MRI ABDOMEN W/O & W/[place] [address] [place] [address] [place] [id number] Referral ID Status Reason Start Date Expiration Date V isits Requested Visits Authorized [id number] Closed Auto-Generate d Referral 12/16/2022 10/03/2023 1 [...] CREATED AUTHOR AUTHOR'S ORGANIZ ATION 10/10/2017 [facility] DATE CREATED AUTHOR AUTHOR'S ORGANIZ ATION 10/11/2017 [facility] DATE CREATED AUTHOR AUTHOR'S ORGANIZ ATION 04/27/2022 [facility] DATE CREATED AUTHOR AUTHOR'S ORGANIZ ATION 05/13/2022 [facility] DATE CREATED AUTHOR AUTHOR'S ORGANIZ ATION 03/20/2023 [facility] Source Comments (unrecognize d section and content) In the event this informatio n is protected by the Federal Confidentiality of Alcohol and Drug Abuse Patient Records regulations: The Federal rules restrict any use of the information to criminally investigate or prosecute any alcohol or drug abuse patient.[facility] the event this information is protected by the Federal Confidentiality of Alcohol and Drug Abuse Patient Records regulations: The Federal rules restrict any use of the information to criminally investigate or prosecute any alcohol or drug abuse patient.[facility] the event this information is protected by the Federal Confidentiality of Alcohol and Drug Abuse Patient Records regulations: The Federal rules restrict any use of the information to criminally investigate or prosecute any alcohol or drug abuse patient.[facility] the event this information is protected by the Federal Confidentiality of Alcohol and Drug Abuse Patient Records regulations: The Federal rules restrict any use of the information to criminally investigate or prosecute any alcohol or drug abuse patient.[facility] the event this information is protected by the Federal Confidentiality of Alcohol and Drug Abuse Patient Records regulations: The Federal rules restrict any use of the information to criminally investigate or prosecute any alcohol or drug abuse patient.[facility] the event this information is protected by the Federal Confidentiality of Alcohol and Drug Abuse Patient Records regulations: The Federal rules restrict any use of the information to criminally investigate or prosecute any alcohol or drug abuse patient.[facility] the event this information is protected by the Federal Confidentiality of Alcohol and Drug Abuse Patient Records regulations: The Federal rules restrict any use of the information to criminally investigate or prosecute any alcohol or drug abuse patient.[facility] the event this information is protected by the Federal Confidentiality of Alcohol and Drug Abuse Patient Records regulations: The Federal rules restrict any use of the information to criminally investigate or prosecute any alcohol or drug abuse patient.[facility] the event this information is protected by the Federal Confidentiality of Alcohol and Drug Abuse Patient Records regulations: The Federal rules restrict any use of the information to criminally investigate or prosecute any alcohol or drug abuse patient.[facility] the event this information is protected by the Federal Confidentiality of Alcohol and Drug Abuse Patient Records regulations: The Federal rules restrict any use of the information to criminally investigate or prosecute any alcohol or drug abuse patient.[facility] the event this information is protected by the Federal Confidentiality of Alcohol and Drug Abuse Patient Records regulations: The Federal rules restrict any use of the information to criminally investigate or prosecute any alcohol or drug abuse patient.[facility] the event this information is protected by the Federal Confidentiality of Alcohol and Drug Abuse Patient Records regulations: The Federal rules restrict any use of the information to criminally investigate or prosecute any alcohol or drug abuse patient.[facility] the event this information is protected by the Federal Confidentiality of Alcohol and Drug Abuse Patient Records regulations: The Federal rules restrict any use of the information to criminally investigate or prosecute any alcohol or drug abuse patient.[facility] the event this information is protected by the Federal Confidentiality of Alcohol and Drug Abuse Patient Records regulations: The Federal rules restrict any use of the information to criminally investigate or prosecute any alcohol or drug abuse patient.[facility] System[facility] the event this information is protected by the Federal Confidentiality of Alcohol and Drug Abuse Patient Records regulations: The Federal rules restrict any use of the information to criminally investigate or prosecute any alcohol or drug abuse patient.[facility] the event this information is protected by the Federal Confidentiality of Alcohol and Drug Abuse Patient Records regulations: The Federal rules restrict any use of the information to criminally investigate or prosecute any alcohol or drug abuse patient.[facility] System[facility] the event this information is protected by the Federal Confidentiality of Alcohol and Drug Abuse Patient Records regulations: The Federal rules restrict any use of the information to criminally investigate or prosecute any alcohol or drug abuse patient.[facility] the event this information is protected by the Federal Confidentiality of Alcohol and Drug Abuse Patient Records regulations: The Federal rules restrict any use of the information to criminally investigate or prosecute any alcohol or drug abuse patient.[facility] System[facility] the event this information is protected by the Federal Confidentiality of Alcohol and Drug Abuse Patient Records regulations: The Federal rules restrict any use of the information to criminally investigate or prosecute any alcohol or drug abuse patient.[facility] SystemIn the event this information is protected by the Federal Confidentiality of Alcohol and Drug Abuse Patient Records regulations: The Federal rules restrict any use of the information to criminally investigate or prosecute any alcohol or drug abuse patient.[facility] SystemIn the event this information is protected by the Federal Confidentiality of Alcohol and Drug Abuse Patient Records regulations: The Federal rules restrict any use of the information to criminally investigate or prosecute any alcohol or drug abuse patient.[facility] SystemIn the event this information is protected by the Federal Confidentiality of Alcohol and Drug Abuse Patient Records regulations: The Federal rules restrict any use of the information to criminally investigate or prosecute any alcohol or drug abuse patient.[facility] SystemIn the event this information is protected by the Federal Confidentiality of Alcohol and Drug Abuse Patient Records regulations: The Federal rules restrict any use of the information to criminally investigate or prosecute any alcohol or drug abuse patient.[facility] SystemIn the event this information is protected by the Federal Confidentiality of Alcohol and Drug Abuse Patient Records regulations: The Federal rules restrict any use of the information to criminally investigate or prosecute any alcohol or drug abuse patient.[facility] SystemIn the event this information is protected by the Federal Confidentiality of Alcohol and Drug Abuse Patient Records regulations: The Federal rules restrict any use of the information to criminally investigate or prosecute any alcohol or drug abuse patient.[facility] SystemIn the event this information is protected by the Federal Confidentiality of Alcohol and Drug Abuse Patient Records regulations: The Federal rules restrict any use of the information to criminally investigate or prosecute any alcohol or drug abuse patient.[facility] SystemIn the event this information is protected by the Federal Confidentiality of Alcohol and Drug Abuse Patient Records regulations: The Federal rules restrict any use of the information to criminally investigate or prosecute any alcohol or drug abuse patient.[facility] the event this information is protected by the Federal Confidentiality of Alcohol and Drug Abuse Patient Records regulations: The Federal rules restrict any use of the information to criminally investigate or prosecute any alcohol or drug abuse patient.[facility] the event this information is protected by the Federal Confidentiality of Alcohol and Drug Abuse Patient Records regulations: The Federal rules restrict any use of the information to criminally investigate or prosecute any alcohol or drug abuse patient.[facility] SystemIn the event this information is protected by the Federal Confidentiality of Alcohol and Drug Abuse Patient Records regulations: The Federal rules restrict any use of the information to criminally investigate or prosecute any alcohol or drug abuse patient.[facility] SystemIn the event this information is protected by the Federal Confidentiality of Alcohol and Drug Abuse Patient Records regulations: The Federal rules restrict any use of the information to criminally investigate or prosecute any alcohol or drug abuse patient.[facility] SystemIn the event this information is protected by the Federal Confidentiality of Alcohol and Drug Abuse Patient Records regulations: The Federal rules restrict any use of the information to criminally investigate or prosecute any alcohol or drug abuse patient.[facility] SystemIn the event this information is protected by the Federal Confidentiality of Alcohol and Drug Abuse Patient Records regulations: The Federal rules restrict any use of the information to criminally investigate or prosecute any alcohol or drug abuse patient.[facility] SystemIn the event this information is protected by the Federal Confidentiality of Alcohol and Drug Abuse Patient Records regulations: The Federal rules restrict any use of the information to criminally investigate or prosecute any alcohol or drug abuse patient.[facility] SystemIn the event this information is protected by the Federal Confidentiality of Alcohol and Drug Abuse Patient Records regulations: The Federal rules restrict any use of the information to criminally investigate or prosecute any alcohol or drug abuse patient.[facility] SystemIn the event this information is protected by the Federal Confidentiality of Alcohol and Drug Abuse Patient Records regulations: The Federal rules restrict any use of the information to criminally investigate or prosecute any alcohol or drug abuse patient.[facility] SystemIn the event this information is protected by the Federal Confidentiality of Alcohol and Drug Abuse Patient Records regulations: The Federal rules restrict any use of the information to criminally investigate or prosecute any alcohol or drug abuse patient.[facility] SystemIn the event this information is protected by the Federal Confidentiality of Alcohol and Drug Abuse Patient Records regulations: The Federal rules restrict any use of the information to criminally investigate or prosecute any alcohol or drug abuse patient.[facility] SystemIn the event this information is protected by the Federal Confidentiality of Alcohol and Drug Abuse Patient Records regulations: The Federal rules restrict any use of the information to criminally investigate or prosecute any alcohol or drug abuse patient.[facility] SystemIn the event this information is protected by the Federal Confidentiality of Alcohol and Drug Abuse Patient Records regulations: The Federal rules restrict any use of the information to criminally investigate or prosecute any alcohol or drug abuse patient.[facility] SystemIn the event this information is protected by the Federal Confidentiality of Alcohol and Drug Abuse Patient Records regulations: The Federal rules restrict any use of the information to criminally investigate or prosecute any alcohol or drug abuse patient.[facility] SystemIn the event this information is protected by the Federal Confidentiality of Alcohol and Drug Abuse Patient Records regulations: The Federal rules restrict any use of the information to criminally investigate or prosecute any alcohol or drug abuse patient.[facility] SystemIn the event this information is protected by the Federal Confidentiality of Alcohol and Drug Abuse Patient Records regulations: The Federal rules restrict any use of the information to criminally investigate or prosecute any alcohol or drug abuse patient.[facility] SystemIn the event this information is protected by the Federal Confidentiality of Alcohol and Drug Abuse Patient Records regulations: The Federal rules restrict any use of the information to criminally investigate or prosecute any alcohol or drug abuse patient.[facility] SystemIn the event this information is protected by the Federal Confidentiality of Alcohol and Drug Abuse Patient Records regulations: The Federal rules restrict any use of the information to criminally investigate or prosecute any alcohol or drug abuse patient.[facility] SystemIn the event this information is protected by the Federal Confidentiality of Alcohol and Drug Abuse Patient Records regulations: The Federal rules restrict any use of the information to criminally investigate or prosecute any alcohol or drug abuse patient.[facility] SystemIn the event this information is protected by the Federal Confidentiality of Alcohol and Drug Abuse Patient Records regulations: The Federal rules restrict any use of the information to criminally investigate or prosecute any alcohol or drug abuse patient.[facility] SystemIn the event this information is protected by the Federal Confidentiality of Alcohol and Drug Abuse Patient Records regulations: The Federal rules restrict any use of the information to criminally investigate or prosecute any alcohol or drug abuse patient.[facility] SystemIn the event this information is protected by the Federal Confidentiality of Alcohol and Drug Abuse Patient Records regulations: The Federal rules restrict any use of the information to criminally investigate or prosecute any alcohol or drug abuse patient.[facility] SystemIn the event this information is protected by the Federal Confidentiality of Alcohol and Drug Abuse Patient Records regulations: The Federal rules restrict any use of the information to criminally investigate or prosecute any alcohol or drug abuse patient.[facility] SystemIn the event this information is protected by the Federal Confidentiality of Alcohol and Drug Abuse Patient Records regulations: The Federal rules restrict any use of the information to criminally investigate or prosecute any alcohol or drug abuse patient.[facility] SystemIn the event this information is protected by the Federal Confidentiality of Alcohol and Drug Abuse Patient Records regulations: The Federal rules restrict any use of the information to criminally investigate or prosecute any alcohol or drug abuse patient.[facility] SystemIn the event this information is protected by the Federal Confidentiality of Alcohol and Drug Abuse Patient Records regulations: The Federal rules restrict any use of the information to criminally investigate or prosecute any alcohol or drug abuse patient.[facility] SystemIn the event this information is protected by the Federal Confidentiality of Alcohol and Drug Abuse Patient Records regulations: The Federal rules restrict any use of the information to criminally investigate or prosecute any alcohol or drug abuse patient.[facility] SystemIn the event this information is protected by the Federal Confidentiality of Alcohol and Drug Abuse Patient Records regulations: The Federal rules restrict any use of the information to criminally investigate or prosecute any alcohol or drug abuse patient.[facility] SystemIn the event this information is protected by the Federal Confidentiality of Alcohol and Drug Abuse Patient Records regulations: The Federal rules restrict any use of the information to criminally investigate or prosecute any alcohol or drug abuse patient.[facility] SystemIn the event this information is protected by the Federal Confidentiality of Alcohol and Drug Abuse Patient Records regulations: The Federal rules restrict any use of the information to criminally investigate or prosecute any alcohol or drug abuse patient.[facility] SystemIn the event this information is protected by the Federal Confidentiality of Alcohol and Drug Abuse Patient Records regulations: The Federal rules restrict any use of the information to criminally investigate or prosecute any alcohol or drug abuse patient.[facility] SystemIn the event this information is protected by the Federal Confidentiality of Alcohol and Drug Abuse Patient Records regulations: The Federal rules restrict any use of the information to criminally investigate or prosecute any alcohol or drug abuse patient.[facility] SystemIn the event this information is protected by the Federal Confidentiality of Alcohol and Drug Abuse Patient Records regulations: The Federal rules restrict any use of the information to criminally investigate or prosecute any alcohol or drug abuse patient.[facility] SystemIn the event this information is protected by the Federal Confidentiality of Alcohol and Drug Abuse Patient Records regulations: The Federal rules restrict any use of the information to criminally investigate or prosecute any alcohol or drug abuse patient.[facility] SystemIn the event this information is protected by the Federal Confidentiality of Alcohol and Drug Abuse Patient Records regulations: The Federal rules restrict any use of the information to criminally investigate or prosecute any alcohol or drug abuse patient.[facility] SystemIn the event this information is protected by the Federal Confidentiality of Alcohol and Drug Abuse Patient Records regulations: The Federal rules restrict any use of the information to criminally investigate or prosecute any alcohol or drug abuse patient.[facility] SystemIn the event this information is protected by the Federal Confidentiality of Alcohol and Drug Abuse Patient Records regulations: The Federal rules restrict any use of the information to criminally investigate or prosecute any alcohol or drug abuse patient.[facility] SystemIn the event this information is protected by the Federal Confidentiality of Alcohol and Drug Abuse Patient Records regulations: The Federal rules restrict any use of the information to criminally investigate or prosecute any alcohol or drug abuse patient.[facility] the event this information is protected by the Federal Confidentiality of Alcohol and Drug Abuse Patient Records regulations: The Federal rules restrict any use of the information to criminally investigate or prosecute any alcohol or drug abuse patient.[facility] SystemIn the event this information is protected by the Federal Confidentiality of Alcohol and Drug Abuse Patient Records regulations: The Federal rules restrict any use of the information to criminally investigate or prosecute any alcohol or drug abuse patient.[facility] SystemIn the event this information is protected by the Federal Confidentiality of Alcohol and Drug Abuse Patient Records regulations: The Federal rules restrict any use of the information to criminally investigate or prosecute any alcohol or drug abuse patient.[facility] SystemIn the event this information is protected by the Federal Confidentiality of Alcohol and Drug Abuse Patient Records regulations: The Federal rules restrict any use of the information to criminally investigate or prosecute any alcohol or drug abuse patient.[facility] SystemIn the event this information is protected by the Federal Confidentiality of Alcohol and Drug Abuse Patient Records regulations: The Federal rules restrict any use of the information to criminally investigate or prosecute any alcohol or drug abuse patient.[facility] SystemIn the event this information is protected by the Federal Confidentiality of Alcohol and Drug Abuse Patient Records regulations: The Federal rules restrict any use of the information to criminally investigate or prosecute any alcohol or drug abuse patient.[facility] SystemIn the event this information is protected by the Federal Confidentiality of Alcohol and Drug Abuse Patient Records regulations: The Federal rules restrict any use of the information to criminally investigate or prosecute any alcohol or drug abuse patient.[facility] SystemIn the event this information is protected by the Federal Confidentiality of Alcohol and Drug Abuse Patient Records regulations: The Federal rules restrict any use of the information to criminally investigate or prosecute any alcohol or drug abuse patient.[facility] SystemIn the event this information is protected by the Federal Confidentiality of Alcohol and Drug Abuse Patient Records regulations: The Federal rules restrict any use of the information to criminally investigate or prosecute any alcohol or drug abuse patient.[facility] SystemIn the event this information is protected by the Federal Confidentiality of Alcohol and Drug Abuse Patient Records regulations: The Federal rules restrict any use of the information to criminally investigate or prosecute any alcohol or drug abuse patient.[facility] SystemIn the event this information is protected by the Federal Confidentiality of Alcohol and Drug Abuse Patient Records regulations: The Federal rules restrict any use of the information to criminally investigate or prosecute any alcohol or drug abuse patient.[facility] SystemIn the event this information is protected by the Federal Confidentiality of Alcohol and Drug Abuse Patient Records regulations: The Federal rules restrict any use of the information to criminally investigate or prosecute any alcohol or drug abuse patient.[facility] SystemIn the event this information is protected by the Federal Confidentiality of Alcohol and Drug Abuse Patient Records regulations: The Federal rules restrict any use of the information to criminally investigate or prosecute any alcohol or drug abuse patient.[facility] SystemIn the event this information is protected by the Federal Confidentiality of Alcohol and Drug Abuse Patient Records regulations: The Federal rules restrict any use of the information to criminally investigate or prosecute any alcohol or drug abuse patient.[facility] SystemIn the event this information is protected by the Federal Confidentiality of Alcohol and Drug Abuse Patient Records regulations: The Federal rules restrict any use of the information to criminally investigate or prosecute any alcohol or drug abuse patient.[facility] SystemIn the event this information is protected by the Federal Confidentiality of Alcohol and Drug Abuse Patient Records regulations: The Federal rules restrict any use of the information to criminally investigate or prosecute any alcohol or drug abuse patient.[facility] SystemIn the event this information is protected by the Federal Confidentiality of Alcohol and Drug Abuse Patient Records regulations: The Federal rules restrict any use of the information to criminally investigate or prosecute any alcohol or drug abuse patient.[facility] SystemIn the event this information is protected by the Federal Confidentiality of Alcohol and Drug Abuse Patient Records regulations: The Federal rules restrict any use of the information to criminally investigate or prosecute any alcohol or drug abuse patient.[facility] SystemIn the event this information is protected by the Federal Confidentiality of Alcohol and Drug Abuse Patient Records regulations: The Federal rules restrict any use of the information to criminally investigate or prosecute any alcohol or drug abuse patient.[facility] SystemIn the event this information is protected by the Federal Confidentiality of Alcohol and Drug Abuse Patient Records regulations: The Federal rules restrict any use of the information to criminally investigate or prosecute any alcohol or drug abuse patient.[facility] SystemIn the event this information is protected by the Federal Confidentiality of Alcohol and Drug Abuse Patient Records regulations: The Federal rules restrict any use of the information to criminally investigate or prosecute any alcohol or drug abuse patient.[facility] SystemIn the event this information is protected by the Federal Confidentiality of Alcohol and Drug Abuse Patient Records regulations: The Federal rules restrict any use of the information to criminally investigate or prosecute any alcohol or drug abuse patient.[facility] SystemIn the event this information is protected by the Federal Confidentiality of Alcohol and Drug Abuse Patient Records regulations: The Federal rules restrict any use of the information to criminally investigate or prosecute any alcohol or drug abuse patient.[facility] SystemIn the event this information is protected by the Federal Confidentiality of Alcohol and Drug Abuse Patient Records regulations: The Federal rules restrict any use of the information to criminally investigate or prosecute any alcohol or drug abuse patient.[facility] SystemIn the event this information is protected by the Federal Confidentiality of Alcohol and Drug Abuse Patient Records regulations: The Federal rules restrict any use of the information to criminally investigate or prosecute any alcohol or drug abuse patient.[facility] SystemIn the event this information is protected by the Federal Confidentiality of Alcohol and Drug Abuse Patient Records regulations: The Federal rules restrict any use of the information to criminally investigate or prosecute any alcohol or drug abuse patient.[facility] SystemIn the event this information is protected by the Federal Confidentiality of Alcohol and Drug Abuse Patient Records regulations: The Federal rules restrict any use of the information to criminally investigate or prosecute any alcohol or drug abuse patient.[facility] SystemIn the event this information is protected by the Federal Confidentiality of Alcohol and Drug Abuse Patient Records regulations: The Federal rules restrict any use of the information to criminally investigate or prosecute any alcohol or drug abuse patient.[facility] SystemIn the event this information is protected by the Federal Confidentiality of Alcohol and Drug Abuse Patient Records regulations: The Federal rules restrict any use of the information to criminally investigate or prosecute any alcohol or drug abuse patient.[facility] SystemIn the event this information is protected by the Federal Confidentiality of Alcohol and Drug Abuse Patient Records regulations: The Federal rules restrict any use of the information to criminally investigate or prosecute any alcohol or drug abuse patient.[facility] SystemIn the event this information is protected by the Federal Confidentiality of Alcohol and Drug Abuse Patient Records regulations: The Federal rules restrict any use of the information to criminally investigate or prosecute any alcohol or drug abuse patient.[facility] Reason for Visit (unrecogniz ed section and [...] polyneuropathy Abnormality of gait Procedures 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 OCCUPATIONAL THERAPY EVAL HIGH COMPLEX 60 MINS Ricky Bradley MD [address] [place] [address] [facility] [address] [place] [address] Referral ID Status Reason Start Date Expiration Date Visits Requested Visits Authorized [id number] Authorized PCP Requested Referral Auto-Generate d Referral 2 01/31/2023 99 99 Reason Comments Forms Reason Comments New Patient Evaluation Reason Comments Cirrhosis Specialty Diagnoses / Procedures Referred By Contac t Referred To Contact Diagnoses Cirrhosis of liver without ascites, unspecified hepatic cirrhosis type (HCC) Splenomegaly Procedures CONSULT TO HEPATOLOGY OFFICE/OUTPATIENT [facility] 60-74 MINUTES Yuniel Dahl DO [address] [place] [address] Referral ID Status Reason Start Date Expiration Date V isits Requested Visits Authorized [id number] Closed PCP Requested Referral 04/22/2022 04/22/2023 1 1 Reason Comments Rash Reason Comments Non-Chemotherapy Treatment Specialty Diagnoses / Procedures Referred By Contac t Referred To Contact Diagnoses Iron deficiency anemia due to chronic blood loss Iron malabsorption Yuniel Dahl, DO [address] [place] [address] [facility] [address] [place] [address] Referral ID Status Reason Start Date Expiration Date V isits Requested Visits Authorized [id number] Authorized 04/22/2022 07/21/2022 99 99 Reason Comments [...] & W/CONTRAST MATERIAL Kai Alvarado PA-C [address] [place] [id number] Mr Imaging Referral ID Status Reason Start Date Expiration Date V isits Requested Visits Authorized [id number] Closed Auto-Generate d Referral 05/13/2022 06/12/2023 1 1 Reason Comments Radiology MRI Specialty Diagnoses / Procedures Referred By Contac t Referred To Contact MR IMAGING Diagnoses Cirrhosis of liver without ascites, unspecified hepatic cirrhosis type (HCC) Liver mass Splenomegaly Procedures MRI LIVER WO/W IVCON MRI ABDOMEN W/O & W/CONTRAST MATERIAL Kai Alvarado PA-Minnie [address] [place] [address] Mr Imaging Reason Comments Established Patient 4cm hcc Reason Onset Date Comments SPP General - Treatment Referral 08/10/2022 [employer] Insurance Authorization 08/10/2022 LORRAINE chacon Reason Onset Date Comments Simulation Request Form 08/15/2022 Reason Comments Patient Education Reason Onset Date Comments Refill Request 08/22/2022 Reason Onset Date Comments Refill Request 09/19/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 Reason Comments [facility] Order Request Reason Comments [facility] Reason Comments Physical Therapy Plan of Care Reason Comments Established Patient Reason Onset Date Comments Refill Request 12/08/2022 Referral ID Status Reason Start Date Expiration Date V isits Requested Visits Authorized [id number] Authorized 12/09/2022 03/09/2023 99 99 Reason Comments Established Patient 3 month follow up Reason Comments Radiology US Specialty Diagnoses / Procedures Referred By Contac t Referred To Contact US IMAGING Diagnoses Monoclonal gammopathy Macrocytic anemia Thrombocytopenia (HCC) Procedures US ABD RT UPPER QUADRANT US ABDOMINAL REAL TIME W/IMAGE LIMITED Yuniel Dahl, DO [address] [place] [address] [place] [address] Referral ID Status Reason Start Date Expiration Date V isits Requested Visits Authorized [id number] Closed Auto-Generate d Referral 03/22/2022 04/21/2023 1 1 Specialty Diagnoses / Procedures Referred By Contac t Referred To Contact MR IMAGING Diagnoses Liver disease Procedures MRI LIVER WO/W IVCON MRI ABDOMEN W/O & W/[place] [address] [place] [address] [place] [address] Referral ID Status Reason Start Date Expiration Date V isits Requested Visits Authorized [id number] Closed Auto-Generate d Referral 12/16/2022 10/03/2023 1 1 Reason Comments Appointment Confirmation Care Teams (unrecognized sec tion and content) Tailer Out Relationship Specialty Start Date End Date Ricky Bradley MD [address] [place], [place] [id number] PCP - General 02/05/02 Tailer Out Relationship Specialty Start Date End Date Ricky Bradley MD [address] [place], [place] [phone] PCP - General 02/05/02 Tailer Out Relationship Specialty Start Date End Date Ricky Bradley MD [address] [place], [place] [id number] PCP - General 02/05/02 Tailer Out Relationship Specialty Start Date End Date Ricky Bradley MD [address] [facility] [place] [address] PCP - General 02/05/02 Tailer Out Relationship Specialty Start Date End Date Ricky Bradley MD [address] [facility] [place] [address] PCP - General 02/05/02 Ricky Bradley MD [address] [facility] [place] [address] Referring Internal Medicine 12/07/21 Ricky Bradley MD [address] [facility] [place] [address] Home Care Physician Internal Medicine 12/07/21 Tailer Out Relationship Specialty Start Date End Date Ricky Bradley MD [address] [facility] [place] [address] PCP - General 02/05/02 Ricky Bradley MD [address] [facility] [place] [address] Referring Internal Medicine 12/07/21 Ricky Bradley MD [address] [facility] [place] [address] Home Care Physician Internal Medicine 12/07/21 Tailer Out Relationship Specialty Start Date End Date Ricky Bradley MD [address] [facility] [place] [address] PCP - General 02/05/02 Ricky Bradley MD [address] [facility] [place] [address] Referring Internal Medicine 12/07/21 Ricky Bradley MD [address] [facility] [place] [address] Home Care Physician Internal Medicine 12/07/21 Tailer Out Relationship Specialty Start Date End Date Ricky Bradley MD [address] [facility] [place] [address] PCP - General 02/05/02 Ricky Bradley MD [address] [facility] [place] [address] Referring Internal Medicine 12/07/21 Ricky Bradley MD [address] [facility] [place] [address] Home Care Physician Internal Medicine 12/07/21 Leda Christensen, PT [address] [place] [address] Welder Shielded [employer] Post Acute Care 12/14/21 Tailer Out Relationship Specialty Start Date End Date Ricky Bradley MD [address] [facility] [place] [address] PCP - General 02/05/02 Ricky Bradley MD [address] [facility] [place] [address] Referring Internal Medicine 12/07/21 Ricky Bradley MD [address] [facility] [place] [address] Home Care Physician Internal Medicine 12/07/21 Leda Christensen, PT [address] [place] [address] Welder Shielded [employer] Post Acute Care 12/14/21 Tailer Out Relationship Specialty Start Date End Date Ricky Bradley MD [address] [facility] [place] [address] PCP - General 02/05/02 Ricky Bradley MD [address] [facility] [place] [address] Referring Internal Medicine 12/07/21 Ricky Bradley MD [address] [facility] [place] [address] Home Care Physician Internal Medicine 12/07/21 Leda Christensen, PT [address] [place] [address] Welder Shielded [employer] Post Acute Care 12/14/21 Tailer Out Relationship Specialty Start Date End Date Ricky Bradley MD [address] [facility] [place] [address] PCP - General 02/05/02 Ricky Bradley MD [address] [facility] [place] [address] Referring Internal Medicine 12/07/21 Ricky Bradley MD [address] [facility] [place] [address] Home Care Physician Internal Medicine 12/07/21 Leda Christensen, PT [address] [place] [address] Welder [employer]ed [employer] Post Acute Care 12/14/21 Tailer Out Relationship Specialty Start Date End Date Ricky Bradley MD [address] [facility] [place] [place] [address] PCP - General 02/05/02 Ricky Bradley MD [address] [facility] [place] [address] Referring Internal Medicine 12/07/21 Ricky Bradley MD [address] [facility] [place] [address] Home Care Physician Internal Medicine 12/07/21 Leda Christensen, PT [address] [place] [address] [employer] Post Acute Care 12/14/21 Tailer Out Relationship Specialty Start Date End Date Ricky Bradley MD [address] [facility] [place] [address] PCP - General 02/05/02 Ricky Bradley MD [address] [facility] [place] [address] Referring Internal Medicine 12/07/21 Ricky Bradley MD [address] [facility] [place] [address] Home Care Physician Internal Medicine 12/07/21 Leda Christensen, PT [address] [place] [address] [employer] Post Acute Care 12/14/21 Tailer Out Relationship Specialty Start Date End Date Ricky Bradley MD [address] [facility] [place] [address] PCP - General 02/05/02 Ricky Bradley MD [address] [facility] [place] [address] Referring Internal Medicine 12/07/21 Ricky Bradley MD [address] [facility] [place] [address] Home Care Provider Internal Medicine 12/07/21 Leda Christensen, PT [address] [place] [address] [employer] Post Acute Care 12/14/21 Tailer Out Relationship Specialty Start Date End Date Ricky Bradley MD [address] [facility] [place] [address] PCP - General 02/05/02 Ricky Bradley MD [address] [facility] [place] [address] Referring Internal Medicine 12/07/21 Ricky Bradley MD [address] [facility] [place] [address] Home Care Provider Internal Medicine 12/07/21 Leda Christensen, PT [address] [facility] [place] [place] [address] [employer] Arc Post Acute Care 12/14/21 Tailer Out Relationship Specialty Start Date End Date Ricky Bradley MD [address] [facility] [place] [address] PCP - General 02/05/02 Ricky Bradley MD [address] [facility] [place] [address] Referring Internal Medicine 12/07/21 Ricky Bradley MD [address] [facility] [place] [address] Home Care Provider Internal Medicine 12/07/21 Lead Christensen, PT [address] [facility] [place] [place] [address] [employer] Post Acute Care 12/14/21 Tailer Out Relationship Specialty Start Date End Date Ricky Bradley MD [address] [facility] [place] [address] PCP - General 02/05/02 Ricky Bradley MD [address] [facility] [place] [address] Referring Internal Medicine 12/07/21 Ricky Bradley MD [address] [facility] [place] [address] Home Care Provider Internal Medicine 12/07/21 Leda Christensen, PT [address] [facility] [place] [place] [address] [employer] Post Acute Care 12/14/21 Tailer Out Relationship Specialty Start Date End Date Ricky Bradley MD [address] [facility] [place] [address] PCP - General 02/05/02 Ricky Bradley MD [address] [facility] [place] [address] Referring Internal Medicine 12/07/21 Ricky Bradley MD [address] [facility] [place] [address] Home Care Provider Internal Medicine 12/07/21 Leda Christensen, PT [address] [place] [address] [employer] Post Acute Care 12/14/21 Tailer Out Relationship Specialty Start Date End Date Ricky Bradley MD [address] [facility] [place] [address] PCP - General 02/05/02 Ricky Bradley MD [address] [facility] [place] [address] Referring Internal Medicine 12/07/21 Ricky Bradley MD [address] [facility] [place] [address] Home Care Provider Internal Medicine 12/07/21 Leda Christensen, PT [address] [place] [address] [employer] Post Acute Care 12/14/21 Tailer Out Relationship Specialty Start Date End Date Ricky Bradley MD [address] [facility] [place] [address] PCP - General 02/05/02 Ricky Bradley MD [address] [facility] [place] [address] Referring Internal Medicine 12/07/21 Ricky Bradley MD [address] [facility] [place] [address] Home Care Provider Internal Medicine 12/07/21 Leda Christensen, PT [address] [facility] [place] [place] [address] [employer] Post Acute Care 12/14/21 Tailer Out Relationship Specialty Start Date End Date Ricky Bradley MD [address] [facility] [place] [address] PCP - General 02/05/02 Ricky Bradley MD [address] [facility] [place] [address] Referring Internal Medicine 12/07/21 Ricky Bradley MD [address] [facility] [place] [address] Home Care Provider Internal Medicine 12/07/21 Leda Christensen, PT [address] [facility] [place] [place] [address] [employer] Post Acute Care 12/14/21 Tailer Out Relationship Specialty Start Date End Date Ricky Bradley MD [address] [facility] [place] [address] PCP - General 02/05/02 Ricky Bradley MD [address] [facility] [place] [address] Referring Internal Medicine 12/07/21 Ricky Bradley MD [address] [facility] [place] [address] Home Care Provider Internal Medicine 12/07/21 Leda Christensen, PT [address] [place] [address] [employer] Post Acute Care 12/14/21 Tailer Out Relationship Specialty Start Date End Date Ricky Bradley MD [address] [facility] [place] [address] PCP - General 02/05/02 Ricky Bradley MD [address] [facility] [place] [address] Referring Internal Medicine 12/07/21 Ricky Bradley MD [address] [facility] [place] [address] Home Care Provider Internal Medicine 12/07/21 Leda Christensen, PT [address] [place] [address] [employer] Post Acute Care 12/14/21 Tailer Out Relationship Specialty Start Date End Date Ricky Bradley MD [address] [facility] [place] [address] PCP - General 02/05/02 Ricky Bradley MD [address] [facility] [place] [address] Referring Internal Medicine 12/07/21 Ricky Bradley MD [address] [facility] [place] [address] Home Care Provider Internal Medicine 12/07/21 Leda Christensen, PT [address] [place] [address] [employer] Post Acute Care 12/14/21 Tailer Out Relationship Specialty Start Date End Date Ricky Bradley MD [address] [facility] [place] [address] PCP - General 02/05/02 Ricky Bradley MD [address] [facility] [place] [address] Referring Internal Medicine 12/07/21 Ricky Bradley MD [address] [facility] [place] [address] Home Care Provider Internal Medicine 12/07/21 Leda Christensen, PT [address] [place] [address] [employer] Post Acute Care 12/14/21 Tailer Out Relationship Specialty Start Date End Date Ricky Bradley MD [address] [facility] [place] [address] PCP - General 02/05/02 Ricky Bradley MD [address] [facility] [place] [address] Referring Internal Medicine 12/07/21 Ricky Bradley MD [address] [facility] [place] [address] Home Care Provider Internal Medicine 12/07/21 Leda Christensen, PT [address] [place] [address] [employer] Post Acute Care 12/14/21 Tailer Out Relationship Specialty Start Date End Date Ricky Bradley MD [address] [facility] [place] [address] PCP - General 02/05/02 Ricky Bradley MD [address] [facility] [place] [address] Referring Internal Medicine 12/07/21 Ricky Bradley MD [address] [facility] [place] [address] Home Care Provider Internal Medicine 12/07/21 Leda Christensen, PT [address] [place] [address] [employer] Post Acute Care 12/14/21 Tailer Out Relationship Specialty Start Date End Date Ricky Bradley MD [address] [facility] [place] [address] PCP - General 02/05/02 Ricky Bradley MD [address] [facility] [place] [address] Referring Internal Medicine 12/07/21 Ricky Bradley MD [address] [facility] [place] [address] Home Care Provider Internal Medicine 12/07/21 Leda Christensen, PT [address] [place] [address] [employer] Post Acute Care 12/14/21 Tailer Out Relationship Specialty Start Date End Date Ricky Bradley MD [address] [facility] [place] [address] PCP - General 02/05/02 Ricky Bradley MD [address] [facility] [place] [address] Referring Internal Medicine 12/07/21 Ricky Bradley MD [address] [facility] [place] [address] Home Care Provider Internal Medicine 12/07/21 Leda Christensen, PT [address] [place] [address] [employer] Post Acute Care 12/14/21 Tailer Out Relationship Specialty Start Date End Date Ricky Bradley MD [address] [facility] [place] [address] PCP - General 02/05/02 Ricky Bradley MD [address] [facility] [place] [address] Referring Internal Medicine 12/07/21 Ricky Bradley MD [address] [facility] [place] [address] Home Care Provider Internal Medicine 12/07/21 Leda Christensen, PT [address] [facility] [place] [address] [employer] Post Acute Care 12/14/21 Tailer Out Relationship Specialty Start Date End Date Ricky Bradley MD [address] [facility] [place] [address] PCP - General 02/05/02 Ricky Bradley MD [address] [facility] [place] [address] Referring Internal Medicine 12/07/21 Ricky Bradley MD [address] [facility] [place] [address] Home Care Provider Internal Medicine 12/07/21 Leda Christensen, PT [address] [place] [address] [employer] Post Acute Care 12/14/21 Tailer Out Relationship Specialty Start Date End Date Ricky Brdaley MD [address] [facility] [place] [address] PCP - General 02/05/02 Ricky Bradley MD [address] [facility] [place] [address] Referring Internal Medicine 12/07/21 Ricky Bradley MD [address] [facility] [place] [address] Home Care Provider Internal Medicine 12/07/21 Leda Christensen, PT [address] [place] [address] [employer] Post Acute Care 12/14/21 Tailer Out Relationship Specialty Start Date End Date Ricky Bradley MD [address] [facility] [place] [address] PCP - General 02/05/02 Ricky Bradley MD [address] [facility] [place] [address] Referring Internal Medicine 12/07/21 Ricky Bradley MD [address] [facility] [place] [address] Home Care Provider Internal Medicine 12/07/21 Leda Christensen, PT [address] [place] [address] [employer] Post Acute Care 12/14/21 Tailer Out Relationship Specialty Start Date End Date Ricky Bradley MD [address] [facility] [place] [address] PCP - General 02/05/02 Ricky Bradley MD [address] [facility] [place] [address] Referring Internal Medicine 12/07/21 Ricky Bradley MD [address] [facility] [place] [address] Home Care Provider Internal Medicine 12/07/21 Leda Christensen, PT [address] [place] [address] [employer] Post Acute Care 12/14/21 Tailer Out Relationship Specialty Start Date End Date Ricky Bradley MD [address] [facility] [place] [address] PCP - General 02/05/02 Ricky Bradley MD [address] [facility] [place] [address] Referring Internal Medicine 12/07/21 Ricky Bradley MD [address] [facility] [place] [address] Home Care Provider Internal Medicine 12/07/21 Leda Christensen, PT [address] [facility] [place] [place] [address] [employer] Post Acute Care 12/14/21 Tailer Out Relationship Specialty Start Date End Date Ricky Bradley MD [address] [facility] [place] [address] PCP - General 02/05/02 Ricky Bradley MD [address] [facility] [place] [address] Referring Internal Medicine 12/07/21 Ricky Bradley MD [address] [facility] [place] [address] Home Care Provider Internal Medicine 12/07/21 Leda Christensen, PT [address] [facility] [place] [place] [address] [employer] Post Acute Care 12/14/21 Tailer Out Relationship Specialty Start Date End Date Ricky Bradley MD [address] [facility] [place] [address] PCP - General 02/05/02 Ricky Bradley MD [address] [facility] [place] [address] Referring Internal Medicine 12/07/21 Ricky Bradley MD [address] [facility] [place] [address] Home Care Provider Internal Medicine 12/07/21 Leda Christensen, PT [address] [facility] [place] [place] [address] Wel[employer] Post Acute Care 12/14/21 Kai Alvarado PA-C [address] [place] [address] Gastroenterology 06/10/22 Ingrid Morales PA-C [address] [place] [address] General Surgery 06/10/22 Tailer Out Relationship Specialty Start Date End Date Ricky Bradley MD [address] [facility] [place] [address] PCP - General 02/05/02 Ricky Bradley MD [address] [facility] [place] [place] [address] Referring Internal Medicine 12/07/21 Ricky Bradley MD [address] [place] [address] Home Care Provider Internal Medicine 12/07/21 Leda Christensen, PT [address] [place] [address] [employer] Post Acute Care 12/14/21 Kai Alvarado PA-C [address] [place] [address] Gastroenterology 06/10/22 Ingrid Morales PA-C [address] [facility] [place] [address] General Surgery 06/10/22 Tailer Out Relationship Specialty Start Date End Date Ricky Bradley MD [address] [facility] [place] [address] PCP - General 02/05/02 Ricky Bradley MD [address] [place] [address] Referring Internal Medicine 12/07/21 Ricky Bradley MD [address] [place] [address] Home Care Provider Internal Medicine 12/07/21 Leda Christensen, PT [address] [place] [address] [employer] Post Acute Care 12/14/21 Kai Alvarado PA-C [address] [place] [address] Gastroenterology 06/10/22 Ingrid Morales PA-C [address] [place] [address] General Surgery 06/10/22 Tailer Out Relationship Specialty Start Date End Date Ricky Bradley MD [address] [facility] [place] [address] PCP - General 02/05/02 Ricky Bradley MD [address] [place] [address] Referring Internal Medicine 12/07/21 Ricky Bradley MD [address] [place] [address] Home Care Provider Internal Medicine 12/07/21 Leda Christensen, PT [address] [place] [address] [employer] Post Acute Care 12/14/21 Kai Alvarado PA-C [address] [place] [address] Gastroenterology 06/10/22 Ingrid Morales PA-C [address] [place] [address] General Surgery 06/10/22 Tailer Out Relationship Specialty Start Date End Date Ricky Bradley MD [address] [place] [address] PCP - General 02/05/02 Ricky Bradley MD [address] [place] [address] Referring Internal Medicine 12/07/21 Ricky Bradley MD [address] [place] [address] Home Care Provider Internal Medicine 12/07/21 Leda Christensen, PT [address] [place] [address] [employer] Post Acute Care 12/14/21 Kai Alvarado PA-C [address] [place] [address] Gastroenterology 06/10/22 Ingrid Morales PA-C [address] [place] [address] General Surgery 06/10/22 Tailer Out Relationship Specialty Start Date End Date Ricky Bradley MD [address] [place] [address] PCP - General 02/05/02 Ricky Bradley MD [address] [place] [address] Referring Internal Medicine 12/07/21 Ricky Bradely MD [address] [place] [address] Home Care Provider Internal Medicine 12/07/21 Leda Christensen, PT [address] [place] [address] [employer] Post Acute Care 12/14/21 Kai Alvarado PA-C [address] [place] [address] Gastroenterology 06/10/22 Ingrid Morales PA-C [address] [place] [address] General Surgery 06/10/22 Tailer Out Relationship Specialty Start Date End Date Ricky Bradley MD [address] [facility] [place] [address] PCP - General 02/05/02 Ricky Bradley MD [address] [facility] [place] [address] Referring Internal Medicine 12/07/21 Ricky Bradley MD [address] [facility] [place] [address] Home Care Provider Internal Medicine 12/07/21 Leda Christensen, PT [address] [place] [address] [employer] Post Acute Care 12/14/21 Kai Alvarado PA-C [address] [place] [address] Gastroenterology 06/10/22 Ingrid Morales PA-C [address] [place] [address] General Surgery 06/10/22 Tailer Out Relationship Specialty Start Date End Date Ricky Bradley MD [address] [facility] [place] [address] PCP - General 02/05/02 Ricky Bradley MD [address] [facility] [place] [address] Referring Internal Medicine 12/07/21 Ricky Bradley MD [address] [facility] [place] [address] Home Care Provider Internal Medicine 12/07/21 Leda Christensen, PT [address] [place] [address] [employer] Post Acute Care 12/14/21 Kai Alvarado PA-C [address] [place] [address] Gastroenterology 06/10/22 nIgrid Morales PA-C [address] [place] [address] General Surgery 06/10/22 Tailer Out Relationship Specialty Start Date End Date Ricky Bradley MD [address] [place] [address] PCP - General 02/05/02 Ricky Bradley MD [address] [place] [address] Referring Internal Medicine 12/07/21 Ricky Bradley MD [address] [place] [address] Home Care Provider Internal Medicine 12/07/21 Leda Christensen, PT [address] [place] [address] [employer] Post Acute Care 12/14/21 Kai Alvarado PA-C [address] [place] [address] Gastroenterology 06/10/22 Ingrid Morales PA-C [address] [place] [address] General Surgery 06/10/22 Tailer Out Relationship Specialty Start Date End Date Ricky Bradley MD [address] [place] [address] PCP - General 02/05/02 Ricky Bradley MD [address] [place] [address] Referring Internal Medicine 12/07/21 Ricky Bradley MD [address] [facility] [place] [address] Home Care Provider Internal Medicine 12/07/21 Leda Christensen, PT [address] [place] [address] [employer] Post Acute Care 12/14/21 Kai Alvarado PA-C [address] [place] [address] Gastroenterology 06/10/22 Ingrid Morales PA-C [address] [place] [address] General Surgery 06/10/22 Tailer Out Relationship Specialty Start Date End Date Ricky Bradley MD [address] [facility] [place] [address] PCP - General 02/05/02 Ricky Bradley MD [address] [facility] [place] [address] Referring Internal Medicine 12/07/21 Ricky Bradley MD [address] [facility] [place] [address] Home Care Provider Internal Medicine 12/07/21 Leda Christensen, PT [address] [place] [address] [employer] Post Acute Care 12/14/21 Kai Alvarado PA-C [address] [place] [address] Gastroenterology 06/10/22 Ingrid Morales PA-C [address] [place] [address] General Surgery 06/10/22 Tailer Out Relationship Specialty Start Date End Date Ricky Bradley MD [address] [facility] [place] [address] PCP - General 02/05/02 Ricky Bradley MD [address] [place] [address] Referring Internal Medicine 12/07/21 Ricky Bradley MD [address] [place] [address] Home Care Provider Internal Medicine 12/07/21 Leda Christensen, PT [address] [place] [address] [employer] Post Acute Care 12/14/21 Kai Alvarado PA-C [address] [place] [address] Gastroenterology 06/10/22 Ingrid Morales PA-C [address] [place] [address] General Surgery 06/10/22 Tailer Out Relationship Specialty Start Date End Date Ricky Bradley MD [address] [place] [address] PCP - General 02/05/02 Ricky Bradley MD [address] [place] [address] Referring Internal Medicine 12/07/21 Ricky Bradley MD [address] [place] [address] Home Care Provider Internal Medicine 12/07/21 Leda Christensen, PT [address] [place] [address] [employer] Post Acute Care 12/14/21 Kai Alvarado PA-C [address] [place] [address] Gastroenterology 06/10/22 Ingrid Morales PA-C [address] [place] [address] General Surgery 06/10/22 Tailer Out Relationship Specialty Start Date End Date Ricky Bradley MD [address] [facility] [place] [address] PCP - General 02/05/02 Ricky Bradley MD [address] [facility] [place] [address] Referring Internal Medicine 12/07/21 Ricky Bradley MD [address] [facility] [place] [address] Home Care Provider Internal Medicine 12/07/21 Leda Christensen, PT [address] [place] [address] [employer] Post Acute Care 12/14/21 Kai Alvarado PA-C [address] [place] [address] Gastroenterology 06/10/22 Ingrid Morales PA-C [address] [place] [address] General Surgery 06/10/22 Tailer Out Relationship Specialty Start Date End Date Ricky Bradley MD [address] [facility] [place] [address] PCP - General 02/05/02 Ricyk Bradley MD [address] [facility] [place] [address] Referring Internal Medicine 12/07/21 Ricky Bradley MD [address] [place] [address] Home Care Provider Internal Medicine 12/07/21 Leda Christensen, PT [address] [place] [address] [employer] Post Acute Care 12/14/21 Kai Alvarado PA-C [address] [place] [address] Gastroenterology 06/10/22 Ingrid Morales PA-C [address] [place] [address] General Surgery 06/10/22 Tailer Out Relationship Specialty Start Date End Date Ricky Bradley MD [address] [place] [address] PCP - General 02/05/02 Ricky Bradley MD [address] [place] [address] Referring Internal Medicine 12/07/21 Ricky Bradley MD [address] [place] [address] Home Care Provider Internal Medicine 12/07/21 Leda Christensen, PT [address] [place] [address] [employer] Post Acute Care 12/14/21 Kai Alvarado PA-C [address] [place] [address] Gastroenterology 06/10/22 Ingrid Morales PA-C [address] [place] [address] General Surgery 06/10/22 Tailer Out Relationship Specialty Start Date End Date Ricky Bradley MD [address] [place] [address] PCP - General 02/05/02 Ricky Bradley MD [address] [facility] [place] [address] Referring Internal Medicine 12/07/21 Ricky Bradley MD [address] [place] [address] Home Care Provider Internal Medicine 12/07/21 Leda Christensen, PT [address] [place] [address] [employer] Post Acute Care 12/14/21 Kai Alvarado PA-C [address] [place] [address] Gastroenterology 06/10/22 Ingrid Morales PA-C [address] [place] [address] General Surgery 06/10/22 Tailer Out Relationship Specialty Start Date End Date Ricky Bradley MD [address] [place] [address] PCP - General 02/05/02 Ricky Bradley MD [address] [place] [address] Referring Internal Medicine 12/07/21 Ricky Bradley MD [address] [place] [address] Home Care Provider Internal Medicine 12/07/21 Leda Christensen, PT [address] [place] [address] [employer] Post Acute Care 12/14/21 Kai Alvarado PA-C [address] [place] [address] Gastroenterology 06/10/22 Ingrid Morales PA-C [address] [place] [address] General Surgery 06/10/22 Tailer Out Relationship Specialty Start Date End Date Ricky Bradley MD [address] [place] [address] PCP - General 02/05/02 Ricky Bradley MD [address] [place] [address] Referring Internal Medicine 12/07/21 Ricky Bradley MD [address] [place] [address] Home Care Provider Internal Medicine 12/07/21 Kai Alvarado PA-C [address] [place] [address] Gastroenterology 06/10/22 Ingrid Morales PA-C [address] [place] [address] General Surgery 06/10/22 Tailer Out Relationship Specialty Start Date End Date Bradley, Mauri, MD [address] [place] [address] PCP - General 02/05/02 Ricky Bradley MD [address] [place] [address] Referring Internal Medicine 12/07/21 Ricky Bradley MD [address] [place] [address] Home Care Provider Internal Medicine 12/07/21 Kai Alvarado PA-C [address] [place], [place] [address] Gastroenterology 06/10/22 Ingrid Morales PA-C [address] [facility] [place] [address] General Surgery 06/10/22 Tailer Out Relationship Specialty Start Date End Date Ricky Bradley MD [address] [place] [address] PCP - General 02/05/02 Ricky Bradley MD [address] [place] [address] Referring Internal Medicine 12/07/21 Ricky Bradley MD [address] [place] [address] Home Care Provider Internal Medicine 12/07/21 Kai Alvarado PA-C [address] [place] [address] Gastroenterology 06/10/22 Ingrid Morales PA-C [address] [place], [place] [id number] General Surgery 06/10/22 Tailer Out Relationship Specialty Start Date End Date Ricky Bradley MD [address] [place], [place] [id number] PCP - General 02/05/02 Ricky Bradley MD [address] [facility] [place] [id number] Referring Internal Medicine 12/07/21 Ricky Bradley MD [address] [place] [address] Home Care Provider Internal Medicine 12/07/21 Kai Alvarado PA-C [address] [place] [address] Gastroenterology 06/10/22 Ingrid Morales PA-C [address] [place] [address] General Surgery 06/10/22 Tailer Out Relationship Specialty Start Date End Date Ricky Bradley MD [address] [place] [address] PCP - General 02/05/02 Ricky Bradley MD [address] [place] [address] Referring Internal Medicine 12/07/21 Ricky Bradley MD [address] [place] [address] Home Care Provider Internal Medicine 12/07/21 Kai Alvarado PA-C [address] [place] [address] Gastroenterology 06/10/22 Ingrid Morales PA-C [address] [place] [address] General Surgery 06/10/22 Tailer Out Relationship Specialty Start Date End Date Ricky Bradley MD [address] [place] [address] PCP - General 02/05/02 Ricky Bradley MD [address] [place] [address] Referring Internal Medicine 12/07/21 Ricky Bradley MD [address] [place] [address] Home Care Provider Internal Medicine 12/07/21 Kai Alvarado PA-C [address] [facility] [place] [address] Gastroenterology 06/10/22 Ingrid Morales PA-C [address] [place] [address] General Surgery 06/10/22 Tailer Out Relationship Specialty Start Date End Date Ricky Bradley MD [address] [place] [address] PCP - General 02/05/02 Ricky Bradley MD [address] [place] [address] Referring Internal Medicine 12/07/21 Ricky Bradley MD [address] [place] [address] Home Care Provider Internal Medicine 12/07/21 Kai Alvarado PA-C [address] [facility] [facility] [place] [id number] Gastroenterology 06/10/22 Ingrid Morales PA-C [address] [place] [address] General Surgery 06/10/22 Tailer Out Relationship Specialty Start Date End Date Ricky Bradley MD [address] [place] [address] PCP - General 02/05/02 Ricky Bradley MD [address] [place] [address] Referring Internal Medicine 12/07/21 Ricky Bradley MD [address] [place] [address] Home Care Provider Internal Medicine 12/07/21 Kai Alvarado PA-C [address] [place] [address] Gastroenterology 06/10/22 Ingrid Morales PA-C [address] [place] [address] General Surgery 06/10/22 Tailer Out Relationship Specialty Start Date End Date Ricky Bradley MD [address] [place], [place] [address] PCP - General 02/05/02 Ricky Bradley MD [address] [place] [address] Referring Internal Medicine 12/07/21 Ricky Bradley MD [address] [place] [address] Home Care Provider Internal Medicine 12/07/21 Leda Christensen, PT [address] [place] [address] [employer] [facility] Acute Care 12/14/21 12/05/22 Tailer Out Relationship Specialty Start Date End Date Ricky Bradley MD [address] [place] [address] PCP - General 02/05/02 Ricky Bradley MD [address] [place], [place] [address] Referring Internal Medicine 12/07/21 Ricky Bradley MD [address] [place], [place] [address] Home Care Provider Internal Medicine 12/07/21 Kai Alvarado PA-C [address] [facility] [place] [address] Gastroenterology 06/10/22 Ingrid Morales PA-C [address] [place], [place] [address] General Surgery 06/10/22 Tailer Out Relationship Specialty Start Date End Date Ricky Bradley MD [address] [place], [place] [address] PCP - General 02/05/02 Ricky Bradley MD [address] [place], [place] 223851 Referring Internal Medicine 12/07/21 Rikcy Bradley MD [address] [place], [place] [address] Home Care Provider Internal Medicine 12/07/21 Kai Alvarado PA-C [address] [place] [address] Gastroenterology 06/10/22 Ingrid Morales PA-C [address] [place], [place] [id number] General Surgery 06/10/22 FOR RECORDS PERTAINING TO [...] BE BASED ON THE PRIMARY CLINICAL RECORDS. [facility]. provides no warranty or guarantee of the accuracy or completeness of information in this document.
[2023-04-07] MEDS: Diltiazem 125 MG in Dextrose 5%-Water (100mL Bag) 100 ML CONT INF (01:53)
[2023-04-07] MEDS: Digoxin 250 MCG/ML Ampul 500 MCG IV (02:38)
[2023-04-07] MEDS: 0.9% Saline Lock 10 ML Syringe IV ×2 (02:40→21:12)
[2023-04-07 03:43] LABS: Absolute Lymphocyte Count 0.18 X10^3/uL (0.83-4.51); Absolute Neutrophil Count 8.1 X10^3/uL (2.0-7.7); Basophil# 0.02 X10^3/uL; Basophil% 0.2 % (0-1); Hematocrit 35.5 % (40-54); Hemoglobin 11.2 g/dL (13.0-16.5); Lymphocyte # 0.18 X10^3/ul (0.83-4.51); Mean Corp Hgb Conc 31.5 g/dL (32-36); Mean Corpuscular Hgb 32.7 pg (27.0-32.0); Mean Corpuscular Volume 103.8 fL (80-94); Mean Platelet Vol. 10.8 fl (6.2-12.0); Monocyte# 0.53 X10^3/uL; NRBC Flagged by Analyzer 0 % (0-5); Neutrophil # 8.11 X10^3/uL (2.7-7.7); Neutrophil % 91.5 % (47-70); POSITIVE COUNT YES; POSITIVE DIFFERENTIAL YES; POSITIVE MORPHOLOGY YES; Platelet Count 78 K/mm3 (150-450); RBC Distribution Width CV 15.3 % (11.6-14.6); RBC Distribution Width SD 57.5 fl (35.1-43.9); Red Blood Count 3.42 M/mm3 (4.6-6.2); White Blood Count 8.9 K/mm3 (4.4-11.0)
[2023-04-07 04:09] LABS: ALB/GLOB Ratio 0.8 RATIO (0.9-2.4); AST(SGOT) 43 U/L (15-37); Alanine Aminotransfer ALT/SGPT 31 U/L (16-61); Albumin, Serum 2.2 g/dL (3.2-5.0); Alkaline Phosphatase 158 U/L (45-117); Anion Gap 6 (5-15); BUN 24 mg/dL (7-18); BUN/Creat Ratio 26.9 RATIO (10-20); Calcium,Total 9.4 mg/dL (8.5-10.1); Chloride 114 mmol/L (98-107); Creatinine, Serum 0.89 mg/dL (0.70-1.30); EST Glomerular Filtration Rate 86 mL/min (>60); Est Glom Filt Rate - Afr Amer 104 mL/min (>60); Estimated Creatinine Clearance 64.93 ml/min; Globulin 2.8 g/dL (2.2-4.2); Glucose 98 mg/dL (74-106); Potassium 4.6 mmol/L (3.5-5.1); Sodium Level 144 mmol/L (136-145)
[2023-04-07 04:15] LABS: Differential Indicated SCAN CRITERIA MET
[2023-04-07] MEDS: Enoxaparin 120 MG/0.8 ML Syringe SC (06:18)
[2023-04-07 06:42] LABS: Differential Comment SCANNED; Platelet Estimate MOD DEC (ADEQ)
[2023-04-07] MEDS: Albuterol 2.5 MG/3 ML VIAL.NEB. INHALATION ×2 (06:54→19:02)
[2023-04-07] MEDS: Budesonide Respules 0.5 MG/2 ML AMPUL.NEB. INHALATION ×2 (06:55→19:02)
[2023-04-07 08:04] LABS: PTHIN 104.1 pg/mL (18.4-80.1)
[2023-04-07] MEDS: Pantoprazole Sodium 40 MG Tablet PO (09:20)
[2023-04-07] MEDS: Tolterodine Tartrate 4 MG CAP.SA PO (09:20)
[2023-04-07] MEDS: Multivitamins,Ther W-Minerals Tablet 1 TABLET PO (09:20)
[2023-04-07] MEDS: Allopurinol 300 MG Tablet PO (09:20)
[2023-04-07] MEDS: Metoprolol Tartrate 25 MG Tablet PO ×2 (09:21→21:13)
[2023-04-07] MEDS: Ferrous Sulfate 325 MG Tablet PO ×2 (09:22→16:48)
[2023-04-07] MEDS: rifAXIMin 550 MG Tablet PO ×2 (09:22→21:15)
[2023-04-07] MEDS: Aspirin E.C. 81 MG Tablet PO (09:22)
[2023-04-07] MEDS: Ascorbic Acid 500 MG Tablet PO (09:22)
[2023-04-07] MEDS: Magnesium Chloride 64 MG Delay Rel.Tablet 128 MG PO (09:22)
[2023-04-07] MEDS: Lidocaine 5% Patch 1 PATCH TOPICAL (09:23)
[2023-04-07] MEDS: Zinc Sulfate 50 mg zinc (220 mg) ORAL capsule PO (09:23)
--- NOTE | 2023-04-07 11:30 | CASEMGMT ---
RN CM Face to Face with patient for initial transition planning/care coordination assessment. RN CM introduced self and role at [facility]. Patient lying in bed, alert and oriented. Patient willing to participate in assessment and is able to answer all questions appropriately. Care providers, pharmacy, and demographics verified. Patient wishes to discharge home, will monitor for SNF pending progress with therapy. Patient states he has no further needs or concerns at this time. CM to follow for discharge planning needs that may arise. PCP: Kirk Specialists: Rohith, supervisor fleshing; Joe superintendent water and sewer systems Preferred Pharmacy: [facility] Insurance: [facility], [employer] Prescription Benefit: yes Living Will/HPOA: yes, daughter Ingris Arredondo LNOK: daughter Living Arrangements:Patient lives alone in a single story home with 4 steps or stair lift to enter. Patient states he was independent at home. Transportation: aides DME/HHC: Patient has shower chair, raised toilet, cane, walker, rollator, grab bars, bipap, nebulizer, and pulse ox at home. Patient has had [facility]HC in the past. [facility]. [facility] 9a-2p. Disposition Plan: TBD, anticipate HHC vs SNF pending progress with therapy. Marisol VALE, RN, CM
--- NOTE | 2023-04-07 12:31 | WOUNDNOTE ---
wound photo: right lower leg
--- NOTE | 2023-04-07 12:32 | WOUNDNOTE ---
skin photo: left lower leg
--- NOTE | 2023-04-07 14:41 | CON.PCM.CA_ITS ---
<Statement entered by Topher Piña MD - 04/07/23 15:52> Pt seen & evaluated w/ODESSA. I personally interviewed & exam the pt. I was involved in all aspects of pt's orders, interpretation of results & treatment Assessment & Plan Assessment/Plan (1) Paroxysmal A-fib: (2) History of aortic valve replacement with bioprosthetic valve: PLAN: Plan * Pt is currently in SR, Pt does have increase in falls. he is hesitant to start anticoagulation. For now will monitor. * Do not feel echo needs repeated at this time * Will sign off, if you need any additional input please ask HPI Consult Data Date of Consult: 04/07/23 HPI Narrative HPI Narrative: FRANCISCO MACK, is a 82 M who presented to [facility] ER for increased SOB. He was admitted with pneumonia. He does have a hx of PAF. He is not currently anticoagulated. he was last seen on our office in 05/2021. He does have a history significant for hypertension, polycystic kidney disease, hyperlipidemia, aortic valve stenosis status post aortic valve replacement with a #25 Shannan Fisher valve in 2010. At that time he was noted to have minimal obstructive coronary disease. His echocardiogram was in June 2018 demonstrated an ejection fraction of 70%, severe mitral calcification, a peak gradient across the aortic valve of 22 mmHg and a mean gradient of 11 mmHg. He saw the wind tunnel mechanic and was noted to have a retinal artery occlusion. An echocardiogram was reordered done in January and demonstrated an ejection fraction of 65%, stage I diastolic dysfunction, mitral calcification, stable aortic valve with a mean gradient of 10 mmHg across. Carotid ultrasound did not demonstrate any significant stenosis. [facility] Medical History Anemia Anemia in chronic kidney disease Anemia of chronic disease Aortic valve disorder Asthma Body mass index (BMI) 40.0-44.9, adult Chronic acquired lymphedema CKD (chronic kidney disease), stage III Depression Essential (primary) hypertension GERD (gastroesophageal reflux disease) Gout History of cerebrovascular accident History of splenomegaly Hyperlipemia Liver cancer Morbid obesity Multiple lung nodules New onset atrial flutter Non-alcoholic cirrhosis Nonobstructive atherosclerosis of coronary artery Nonrheumatic aortic (valve) stenosis OAB (overactive bladder) Obesity Obesity (BMI 30-39.9) DEMI treated with BiPAP Osteoarthritis PCK (polycystic kidney disease) Peripheral neuropathy Polycystic kidney disease 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) Right bundle branch block (RBBB) Splenomegaly Thrombocytopenia Thrombocytopenia Urge incontinence Home Medications allopurinol 300 mg tablet 300 mg PO DAILY gout 04/12/16 [History Last Taken 04/07/19] fenofibrate nanocrystallized 48 mg tablet 48 mg PO DAILY cholesterol 04/12/16 [History Last Taken 04/07/19] magnesium oxide 400 mg (241.3 mg magnesium) tablet 400 mg PO DAILY supplement 04/12/16 [History Last Taken 04/07/19] xxltxvtr-zxi-szdwq acid 0.4 mg-lycopene 300 mcg-lutein 250 mcg tablet 1 ea PO DAILY vitamin 04/12/16 [History Last Taken 04/07/19] sertraline 100 mg tablet 50 mg PO QHS depression 09/05/19 [History Last Taken Unknown] aspirin 81 mg tablet,delayed release (Adult Aspirin Regimen) 81 mg PO DAILY [History Last Taken Unknown] ferrous sulfate 325 mg (65 mg iron) tablet 325 mg PO BID 11/10/20 [History Last Taken Unknown] albuterol sulfate 90 mcg/actuation aerosol inhaler 2 puff inhalation Q6H PRN ASTHMA 05/25/21 [History Last Taken Unknown] fluticasone propionate 50 mcg/actuation nasal spray,suspension 1 spray intranasal DAILY 05/25/21 [History Last Taken Unknown] omeprazole 40 mg capsule,delayed release 40 mg PO DAILY 05/25/21 [History Last Taken Unknown] oxybutynin chloride 15 mg tablet,extended release 24 hr 30 mg PO DAILY 05/25/21 [History Last Taken Unknown] ascorbic acid (vitamin C) 500 mg capsule 500 mg PO DAILY 05/17/22 [History Last Taken Unknown] furosemide 20 mg tablet 20 mg PO Q OTHER DAY 05/17/22 [History Last Taken Unknown] nitroglycerin 0.4 mg sublingual tablet 0.4 mg sublingual Q5M PRN chest pain 05/17/22 [History Last Taken Unknown] lidocaine 5 % topical patch (Lidoderm) 1 patch topical DAILY #15 ea 09/11/22 [Rx Last Taken Unknown] cyanocobalamin (vitamin B-12) 5,000 mcg capsule 2,500 mcg PO DAILY 10/29/22 [History Last Taken Unknown] rifaximin 550 mg tablet (Xifaxan) 550 mg PO BID 10/29/22 [History Last Taken Unknown] diltiazem HCl 120 mg capsule,extended release 24 hr 120 mg PO DAILY #30 caps 12/07/22 [Rx Last Taken Unknown] metoprolol tartrate 25 mg tablet 25 mg PO BID #60 tabs 12/07/22 [Rx Last Taken Unknown] fluticasone furoate 200 mcg-vilanterol 25 mcg/dose inhalation powder (Breo Ellipta) 1 inh inhalation DAILY 04/06/23 [History Last Taken Unknown] Allergy/AdvReac Type Severity Reaction Status Date / Time hydrocodone [From Vicodin] Allergy Other Verified 04/06/23 21:38 strawberry Allergy Hives Verified 04/06/23 21:38 venom-honey bee Allergy Anaphylaxis Verified 04/06/23 21:38 [bee venom (honey bee)] adhesive tape AdvReac Rash Verified 10/29/22 19:14 atorvastatin AdvReac PT UNSURE Verified 04/06/23 21:38 OF REACTION montelukast AdvReac PT UNSURE Verified 04/06/23 21:38 OF REACTION Family History Father CAD (coronary artery disease) Brother Diabetes Mother Heart disease Surgical History (Updated 04/07/23 @ 14:50 by Laura PETERS, PA) Aortic valve replaced History of aortic valve replacement with bioprosthetic valve (01/18/11) History of hip surgery (08/2019) History of knee replacement History of left heart catheterization (01/05/11) History of tonsillectomy History of total left hip arthroplasty History of total left hip replacement History of umbilical hernia repair Social History household members: none Smoking Status: Never smoker alcohol intake: never substance use type: does not use ROS Constitutional Constitutional: Reports body ache(s), fatigue and frequent falls Cardiovascular Cardiovascular: Denies chest pain, chest pain at rest, chest pain with activity or palpitations Respiratory/Chest Respiratory/Chest: Reports dyspnea and dyspnea on exertion Gastrointestinal Gastrointestinal: Reports none Musculoskeletal Musculoskeletal: Reports joint pain, muscle weakness and myalgias Physical Exam Const alert and oriented x3 General Appearance: frail HEENT normocephalic, head/scalp atraumatic, hearing grossly normal bilaterally, external ears normal, external nose normal and moist oral mucous membranes Eyes PERRL, EOMs intact bilaterally, conjunctivae normal and no scleral icterus Neck no lymphadenopathy, supple and no JVD Cardio regular rate, regular rhythm, S1 normal heart sound, S2 normal heart sound, no rub, no gallops, no clicks, no JVD and peripheral pulses 2+ throughout GI normal to inspection, nondistended, normoactive bowel sounds, soft to palpation, non-tender and non-distended Neuro oriented x3, CN's II-XII intact bilaterally, moves all extremities and no focal motor deficits Psych cooperative and affect normal Risk Stratification Risk Stratification Applicable: No Charges/Coding Visit Charges Office Visits / Consults: 59652 IP Consult L3 Objective Data Vital Signs: Vital Signs Temp Pulse Resp BP Pulse Ox O2 Del Method O2 Flow Rate 98.7 F 76 16 112/76 95 Nasal Cannula 3 04/07/23 12:00 04/07/23 12:00 04/07/23 12:00 04/07/23 12:00 04/07/23 12:00 04/07/23 12:00 04/07/23 12:00 Oxygen Flow Rate (L/min) 3 Oxygen Delivery Method Nasal Cannula Weight: 266 lb 12.149 oz Body Mass Index (BMI) 38.2 Intake & Output: Intake and Output for Last 24 Hours 04/05/23 04/06/23 04/07/23 23:59 23:59 23:59 Intake Total 1000 / 1000 1560.58 / 1560.58 Balance 1000 / 1000 1560.58 / 1560.58 Lab / Micro Data 04/07/23 03:30 04/07/23 03:30 Labs: Laboratory Results - last 24 hr 04/06/23 21:56: WBC 11.4 H, RBC 4.26 L, Hgb 14.3, Hct 43.3, MCV 101.6 H, MCH 33.6 H, MCHC 33.0, RDW Std Deviation 56.5 H, RDW Coeff of Raina 15.1 H, Plt Count 131 L, MPV 10.7, Immature Gran % (Auto) 0.300, Neut % (Auto) 93.2 H, Lymph % (Auto) 1.8 L, [place] % (Auto) 4.1, Eos % (Auto) 0.2, Baso % (Auto) 0.4, Absolute Neuts (auto) 10.6 H, Absolute Lymphs (auto) 0.21 L, Nucleated RBC % 0, Differential Comment , D-Dimer Quant (PE/DVT) 3.03 H*, Sodium 142, Potassium 4.4, Chloride 110 H, Carbon Dioxide 27.0, Anion Gap 5, BUN 22 H, Creatinine 0.88, Estim Creat Clear Calc 65.67, Est GFR (MDRD) Af Amer 106, Est GFR (MDRD) Non-Af 87, BUN/Creatinine Ratio 24.9 H, Glucose 96, Calcium 11.2 H, Troponin I High Sens 24, B-Natriuretic Peptide 270.4 H 04/07/23 00:43: Total Bilirubin 1.60 H, Direct Bilirubin 0.62 H, AST 37, ALT 28, Alkaline Phosphatase 161 H, Troponin I High Sens 33, Total Protein 4.8 L, Albumin 2.0 L, Globulin 2.8, Lipase 16 04/07/23 03:30: WBC 8.9, RBC 3.42 L, Hgb 11.2 L, Hct 35.5 L, MCV 103.8 H, MCH 32.7 H, MCHC 31.5 L, RDW Std Deviation 57.5 H, RDW Coeff of Raina 15.3 H, Plt Count 78 L, MPV 10.8, Immature Gran % (Auto) 0.300, Neut % (Auto) 91.5 H, Lymph % (Auto) 2.0 L, [place] % (Auto) 6.0, Eos % (Auto) 0.0, Baso % (Auto) 0.2, Absolute Neuts (auto) 8.1 H, Absolute Lymphs (auto) 0.18 L, Nucleated RBC % 0, Differential Comment SCANNED, Platelet Estimate MOD DEC, Sodium 144, Potassium 4.6, Chloride 114 H, Carbon Dioxide 24.0, Anion Gap 6, BUN 24 H, Creatinine 0.89, Estim Creat Clear Calc 64.93, Est GFR (MDRD) Af Amer 104, Est GFR (MDRD) Non-Af 86, BUN/Creatinine Ratio 26.9 H, Glucose 98, Calcium 9.4, Total Bilirubin 1.50 H, AST 43 H, ALT 31, Alkaline Phosphatase 158 H, Total Protein 5.0 L, Albumin 2.2 L, Globulin 2.8, Albumin/Globulin Ratio 0.8 L, PTH Intact 104.1 H Cardiology Labs/Tests 04/06/23 21:56: WBC 11.4 H, RBC 4.26 L, Hgb 14.3, Hct 43.3, MCV 101.6 H, MCH 33.6 H, MCHC 33.0, Plt Count 131 L, MPV 10.7, Immature Gran % (Auto) 0.300, Neut % (Auto) 93.2 H, Lymph % (Auto) 1.8 L, [place] % (Auto) 4.1, Eos % (Auto) 0.2, Baso % (Auto) 0.4, Absolute Neuts (auto) 10.6 H, Nucleated RBC % 0, D-Dimer Quant (PE/DVT) 3.03 H*, Sodium 142, Potassium 4.4, Chloride 110 H, Carbon Dioxide 27.0, Anion Gap 5, BUN 22 H, Creatinine 0.88, Est GFR (MDRD) Af Amer 106, Est GFR (MDRD) Non-Af 87, BUN/Creatinine Ratio 24.9 H, Glucose 96, Calcium 11.2 H, B-Natriuretic Peptide 270.4 H 04/07/23 00:43: Total Bilirubin 1.60 H, Direct Bilirubin 0.62 H 04/07/23 03:30: WBC 8.9, RBC 3.42 L, Hgb 11.2 L, Hct 35.5 L, MCV 103.8 H, MCH 32.7 H, MCHC 31.5 L, Plt Count 78 L, MPV 10.8, Immature Gran % (Auto) 0.300, Mohan t % (Auto) 91.5 H, Lymph % (Auto) 2.0 L, [place] % (Auto) 6.0, Eos % (Auto) 0.0, Baso % (Auto) 0.2, Absolute Neuts (auto) 8.1 H, Nucleated RBC % 0, Sodium 144, Potassium 4.6, Chloride 114 H, Carbon Dioxide 24.0, Anion Gap 6, BUN 24 H, Creatinine 0.89, Est GFR (MDRD) Af Amer 104, Est GFR (MDRD) Non-Af 86, BUN/Creatinine Ratio 26.9 H, Glucose 98, Calcium 9.4, Total Bilirubin 1.50 H Rhythm: Echocardiogram 10/2022: Mild concentric left ventricular hypertrophy. The left ventricular ejection fraction is 60 %. Diastolic function is indeterminate. Severely dilated right ventricle. Severe global right ventricular systolic dysfunction. The left atrium is severely enlarged. Severe mitral annular calcification. Mild tricuspid valve insufficiency. The right atrium is severely enlarged. Right ventricular systolic pressure estimated to be 44 mmHg. Bioprosthetic aortic valve mean gradient 14 mmHg The study was technically difficult. Radiography Diagnostic Testing: Radiology Impression Chest X-Ray 04/06/23 22:07 IMPRESSION: Bilateral lower lobe airspace disease which may represent pneumonia. Electronically Signed: Harinder Cristina MD at 22:36 EST , Chest CTA 04/07/23 00:01 IMPRESSION: 1. Negative for PE. 2. No thoracic aortic dissection. 3. Bilateral lower lobe pneumonia, left greater than right. 4. Small areas of groundglass opacity in the upper lobes and right middle lobe, which could be due to atelectasis or possibly Covid pneumonia. 5. Bilateral pleural effusions, right greater than left. 6. Hiatal hernia again noted. 7. Findings of hepatic cirrhosis again noted with splenomegaly and increasing ascites. 8. Cholelithiasis again noted. Electronically Signed: Raulito Tolbert MD at 2:15 EST ,
--- NOTE | 2023-04-07 15:04 | PN.HOSP_ITS ---
Subjective Subjective Doing well, feels better since he came into the hospital. Objective Data Objective Data Vital Signs: Vital Signs Temp Pulse Resp BP Pulse Ox O2 Del Method O2 Flow Rate 98.7 F 76 16 112/76 95 Nasal Cannula 3 04/07/23 12:00 04/07/23 12:00 04/07/23 12:00 04/07/23 12:00 04/07/23 12:00 04/07/23 12:00 04/07/23 12:00 Oxygen Flow Rate (L/min) 3 Oxygen Delivery Method Nasal Cannula Weight: 266 lb 12.149 oz Body Mass Index (BMI) 38.2 Intake & Output: Intake and Output for Last 24 Hours 04/06/23 04/07/23 04/08/23 03:59 03:59 03:59 Intake Total 2049.58 / 2049.58 510 / 510 Balance 2049.58 / 2049.58 510 / 510 Lab / Micro Data 04/07/23 03:30 04/07/23 03:30 Labs: Laboratory Results - last 24 hr 04/06/23 21:56: WBC 11.4 H, RBC 4.26 L, Hgb 14.3, Hct 43.3, MCV 101.6 H, MCH 33.6 H, MCHC 33.0, RDW Std Deviation 56.5 H, RDW Coeff of Raina 15.1 H, Plt Count 131 L, MPV 10.7, Immature Gran % (Auto) 0.300, Neut % (Auto) 93.2 H, Lymph % (Auto) 1.8 L, [place] % (Auto) 4.1, Eos % (Auto) 0.2, Baso % (Auto) 0.4, Absolute Neuts (auto) 10.6 H, Absolute Lymphs (auto) 0.21 L, Nucleated RBC % 0, Differential Comment , D-Dimer Quant (PE/DVT) 3.03 H*, Sodium 142, Potassium 4.4, Chloride 110 H, Carbon Dioxide 27.0, Anion Gap 5, BUN 22 H, Creatinine 0.88, Estim Creat Clear Calc 65.67, Est GFR (MDRD) Af Amer 106, Est GFR (MDRD) Non-Af 87, BUN/Creatinine Ratio 24.9 H, Glucose 96, Calcium 11.2 H, Troponin I High Sens 24, B-Natriuretic Peptide 270.4 H 04/07/23 00:43: Total Bilirubin 1.60 H, Direct Bilirubin 0.62 H, AST 37, ALT 28, Alkaline Phosphatase 161 H, Troponin I High Sens 33, Total Protein 4.8 L, Albumin 2.0 L, Globulin 2.8, Lipase 16 04/07/23 03:30: WBC 8.9, RBC 3.42 L, Hgb 11.2 L, Hct 35.5 L, MCV 103.8 H, MCH 32.7 H, MCHC 31.5 L, RDW Std Deviation 57.5 H, RDW Coeff of Raina 15.3 H, Plt Count 78 L, MPV 10.8, Immature Gran % (Auto) 0.300, Neut % (Auto) 91.5 H, Lymph % (Auto) 2.0 L, [place] % (Auto) 6.0, Eos % (Auto) 0.0, Baso % (Auto) 0.2, Absolute Neuts (auto) 8.1 H, Absolute Lymphs (auto) 0.18 L, Nucleated RBC % 0, Differential Comment SCANNED, Platelet Estimate MOD DEC, Sodium 144, Potassium 4.6, Chloride 114 H, Carbon Dioxide 24.0, Anion Gap 6, BUN 24 H, Creatinine 0.89, Estim Creat Clear Calc 64.93, Est GFR (MDRD) Af Amer 104, Est GFR (MDRD) Non-Af 86, BUN/Creatinine Ratio 26.9 H, Glucose 98, Calcium 9.4, Total Bilirubin 1.50 H, AST 43 H, ALT 31, Alkaline Phosphatase 158 H, Total Protein 5.0 L, Albumin 2.2 L, Globulin 2.8, Albumin/Globulin Ratio 0.8 L, PTH Intact 104.1 H Radiography Diagnostic Testing: Radiology Impression Chest X-Ray 04/06/23 22:07 IMPRESSION: Bilateral lower lobe airspace disease which may represent pneumonia. Electronically Signed: Harinder Cristina MD at 22:36 EST , Chest CTA 04/07/23 00:01 IMPRESSION: 1. Negative for PE. 2. No thoracic aortic dissection. 3. Bilateral lower lobe pneumonia, left greater than right. 4. Small areas of groundglass opacity in the upper lobes and right middle lobe, which could be due to atelectasis or possibly Covid pneumonia. 5. Bilateral pleural effusions, right greater than left. 6. Hiatal hernia again noted. 7. Findings of hepatic cirrhosis again noted with splenomegaly and increasing ascites. 8. Cholelithiasis again noted. Electronically Signed: Raulito Tolbert MD at 2:15 EST , Physical Exam Narrative General: Alert, Oriented x3, Cooperative, No apparent distress HEENT: Atraumatic, PERRLA, EOMI, Normocephalic Oral: Moist Mucosa Neck: Supple, No JVD Lungs: Diminished, Normal air movement, No rhonchi, No wheeze, No rales Cardiovascular: Regular rate, Regular Rhythm, Normal S1, Normal S2, No murmurs Abdomen: Soft, Non Tender, Non-Distended, No Hepato-splenomegaly Extremities: No edema, Capillary Refill Less than 3 Seconds Skin: Chronic venous stasis changes with right lower extremity redness Musculoskeletal: No Tenderness to Palpation of Joints or Extremities Neurological: Cranial nerves II-XII grossly intact, Motor Exam 5/5 strength t hroughout, Sensory exam intact to light touch and pain Psych/Mental Status: Normal Affect, Appropriate Assessment & Plan Assessment/Plan (1) Paroxysmal A-fib: PLAN: Plan 1. Bibasilar community-acquired pneumonia with hypoxia with right lower extremity cellulitis ? Continue with Rocephin and azithromycin ? She did have an elevated D-dimer and CTA of the chest was negative for PE ? Will consult PT/OT for evaluation and discharge planning 2. Paroxysmal A-fib with RVR/HTN/HLD/aortic stenosis status post replacement/history of CVA/history of retinal artery occlusion ?Continue with his home blood pressure medications ? Continue with his home blood pressure medications, will monitor make adju stments as necessary ? Continue with his home cholesterol medications 3. Anemia of chronic disease in setting of CKD 3 ? Does have a history of polycystic kidney disease ? We will monitor renal function currently at baseline 4. 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 He does have stable ascites, will continue with his home medications ? Continue with his PPI 5. Gout ? Stable ? Continue with his home allopurinol 6. Anxiety/depression ? Stable ? Continue with home medications DVT: Lovenox Charges/Coding Visit Charges Inpatient E&M: 50550 Subs Hosp L2
--- NOTE | 2023-04-07 15:51 | CASEMGMT ---
Per therapy patient needs to go to a half-way facility. Patient was agreeable to [facility] and declined a list. will send a referral to [facility] via [facility]. Maria T LIU
[2023-04-07] MEDS: Ceftriaxone 1 GM/50 ML BAG IV (21:14)
[2023-04-07] MEDS: Sertraline 50 MG Tablet PO (21:15)
[2023-04-08] VITALS (9 sets, daily range): BP systolic 103–123; BP diastolic 69–75; PULSE 59–98; RESP 14–24; TEMP 36.2–37.1; O2SAT 92–94
[2023-04-08] MEDS: Budesonide Respules 0.5 MG/2 ML AMPUL.NEB. INHALATION ×2 (06:32→18:41)
[2023-04-08] MEDS: Albuterol 2.5 MG/3 ML VIAL.NEB. INHALATION ×3 (06:32→18:41)
[2023-04-08] MEDS: Ferrous Sulfate 325 MG Tablet PO ×2 (09:20→16:58)
[2023-04-08] MEDS: Cholecalciferol (Vit D3) 125 MCG CAPSULE (5,000 UNITS) PO (09:20)
[2023-04-08] MEDS: rifAXIMin 550 MG Tablet PO ×2 (09:20→21:07)
[2023-04-08] MEDS: Metoprolol Tartrate 25 MG Tablet PO ×2 (09:20→21:05)
[2023-04-08] MEDS: Pantoprazole Sodium 40 MG Tablet PO (09:20)
[2023-04-08] MEDS: Allopurinol 300 MG Tablet PO (09:21)
[2023-04-08] MEDS: Ascorbic Acid 500 MG Tablet PO (09:21)
[2023-04-08] MEDS: Magnesium Chloride 64 MG Delay Rel.Tablet 128 MG PO (09:21)
[2023-04-08] MEDS: Zinc Sulfate 50 mg zinc (220 mg) ORAL capsule PO (09:21)
[2023-04-08] MEDS: Furosemide 20 MG Tablet PO (09:21)
[2023-04-08] MEDS: Tolterodine Tartrate 4 MG CAP.SA PO (09:21)
[2023-04-08] MEDS: Multivitamins,Ther W-Minerals Tablet 1 TABLET PO (09:21)
[2023-04-08] MEDS: Aspirin E.C. 81 MG Tablet PO (09:21)
[2023-04-08] MEDS: Enoxaparin 40 MG/0.4 ML Syringe SC (09:22)
[2023-04-08] MEDS: Azithromycin 500 MG in Dextrose 5%-Water (250mL Bag) 250 ML 250 MG IV (09:22)
--- NOTE | 2023-04-08 10:56 | PN.HOSP_ITS ---
Subjective Subjective Doing well, breathing a bit better. Off of oxygen today Objective Data Objective Data Vital Signs: Vital Signs Temp Pulse Resp BP Pulse Ox O2 Del Method O2 Flow Rate 98.7 F 79 16 120/70 94 Room Air 0 04/08/23 09:10 04/08/23 09:20 04/08/23 09:10 04/08/23 09:10 04/08/23 09:10 04/08/23 09:10 04/07/23 16:56 Oxygen Flow Rate (L/min) 0 Oxygen Delivery Method Room Air Weight: 266 lb 12.149 oz Body Mass Index (BMI) 38.2 Intake & Output: Intake and Output for Last 24 Hours 04/07/23 04/08/23 04/09/23 03:59 03:59 03:59 Intake Total 2049.58 / 2049.58 800 / 800 100 / 100 Output Total 500 / 500 500 / 500 Balance 2049.58 / 2049.58 300 / 300 -400 / -400 Lab / Micro Data 04/07/23 03:30 04/07/23 03:30 Physical Exam Narrative General: Alert, Oriented x3, Cooperative, No apparent distress HEENT: Atraumatic, PERRLA, EOMI, Normocephalic Oral: Moist Mucosa Neck: Supple, No JVD Lungs: Diminished, Normal air movement, No rhonchi, No wheeze, No rales Cardiovascular: Regular rate, Regular Rhythm, Normal S1, Normal S2, No murmurs Abdomen: Soft, Non Tender, Non-Distended, No Hepato-splenomegaly Extremities: No edema, Capillary Refill Less than 3 Seconds Skin: Chronic venous stasis changes with right lower extremity redness Musculoskeletal: No Tenderness to Palpation of Joints or Extremities Neurological: Cranial nerves II-XII grossly intact, Motor Exam 5/5 strength throughout, Sensory exam intact to light touch and pain Psych/Mental Status: Normal Affect, Appropriate Assessment & Plan Assessment/Plan (1) Paroxysmal A-fib: PLAN: Plan 1. Bibasilar community-acquired pneumonia with hypoxia with right lower ex tremity cellulitis ? Continue with Rocephin and azithromycin ? He did have an elevated D-dimer and CTA of the chest was negative for PE ? He is SNF appropriate will consult case management for assistance in discharge planning 2. Paroxysmal A-fib with RVR/HTN/HLD/aortic stenosis status post replace ment/history of CVA/history of retinal artery occlusion ?Continue with his home blood pressure medications ? Continue with his home blood pressure medications, will monitor make adjustments as necessary ? Continue with his home cholesterol medications 3. Anemia of chronic disease in setting of CKD 3 ? Does have a history of polycystic kidney disease ? We will monitor renal function currently at baseline 4. 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 He does have stable ascites, will continue with his home medications ? Continue with his PPI 5. Gout ? Stable ? Continue with his home allopurinol 6. Anxiety/depression ? Stable ? Continue with home medications DVT: Lovenox Charges/Coding Visit Charges Inpatient E&M: 64716 Subs Hosp L2
[2023-04-08] MEDS: Ceftriaxone 1 GM/50 ML BAG IV (21:06)
[2023-04-08] MEDS: Sertraline 50 MG Tablet PO (21:06)
[2023-04-08] MEDS: 0.9% Saline Lock 10 ML Syringe IV (21:13)
[2023-04-09] VITALS (12 sets, daily range): BP systolic 105–127; BP diastolic 65–90; PULSE 69–110; RESP 14–18; TEMP 36.1–37; O2SAT 92–100
[2023-04-09 06:49] LABS: Absolute Lymphocyte Count 0.24 X10^3/uL (0.83-4.51); Absolute Neutrophil Count 2.7 X10^3/uL (2.0-7.7); Basophil# 0.02 X10^3/uL; Basophil% 0.6 % (0-1); Hematocrit 34.1 % (40-54); Hemoglobin 10.4 g/dL (13.0-16.5); Lymphocyte # 0.24 X10^3/ul (0.83-4.51); Lymphocyte % 7.3 % (19-41); Mean Corp Hgb Conc 30.5 g/dL (32-36); Mean Corpuscular Hgb 32.6 pg (27.0-32.0); Mean Corpuscular Volume 106.9 fL (80-94); Mean Platelet Vol. 11.6 fl (6.2-12.0); Monocyte# 0.21 X10^3/uL; Monocyte% 6.4 % (0-10); NRBC Flagged by Analyzer 0 % (0-5); Neutrophil # 2.69 X10^3/uL (2.7-7.7); Neutrophil % 82.1 % (47-70); POSITIVE COUNT YES; POSITIVE DIFFERENTIAL YES; Platelet Count 69 K/mm3 (150-450); RBC Distribution Width CV 15.3 % (11.6-14.6); RBC Distribution Width SD 60.1 fl (35.1-43.9); Red Blood Count 3.19 M/mm3 (4.6-6.2); White Blood Count 3.3 K/mm3 (4.4-11.0)
[2023-04-09 06:59] LABS: Differential Indicated SCAN CRITERIA MET
[2023-04-09] MEDS: Budesonide Respules 0.5 MG/2 ML AMPUL.NEB. INHALATION ×2 (07:04→19:49)
[2023-04-09] MEDS: Albuterol 2.5 MG/3 ML VIAL.NEB. INHALATION ×2 (07:04→19:49)
[2023-04-09 07:12] LABS: Anion Gap 2 (5-15); BUN 28 mg/dL (7-18); BUN/Creat Ratio 32.2 RATIO (10-20); Calcium,Total 10.2 mg/dL (8.5-10.1); Chloride 113 mmol/L (98-107); Creatinine, Serum 0.87 mg/dL (0.70-1.30); EST Glomerular Filtration Rate 89 mL/min (>60); Est Glom Filt Rate - Afr Amer 108 mL/min (>60); Estimated Creatinine Clearance 66.43 ml/min; Glucose 97 mg/dL (74-106); Sodium Level 141 mmol/L (136-145)
[2023-04-09] MEDS: Cholecalciferol (Vit D3) 125 MCG CAPSULE (5,000 UNITS) PO (08:54)
[2023-04-09] MEDS: Ascorbic Acid 500 MG Tablet PO (08:54)
[2023-04-09] MEDS: Zinc Sulfate 50 mg zinc (220 mg) ORAL capsule PO (08:55)
[2023-04-09] MEDS: rifAXIMin 550 MG Tablet PO ×2 (08:55→21:10)
[2023-04-09] MEDS: Ferrous Sulfate 325 MG Tablet PO ×2 (08:55→16:40)
[2023-04-09] MEDS: Tolterodine Tartrate 4 MG CAP.SA PO (08:55)
[2023-04-09] MEDS: Aspirin E.C. 81 MG Tablet PO (08:55)
[2023-04-09] MEDS: Magnesium Chloride 64 MG Delay Rel.Tablet 128 MG PO (08:55)
[2023-04-09] MEDS: Multivitamins,Ther W-Minerals Tablet 1 TABLET PO (08:55)
[2023-04-09] MEDS: Enoxaparin 40 MG/0.4 ML Syringe SC (08:57)
[2023-04-09] MEDS: Metoprolol Tartrate 25 MG Tablet PO ×2 (09:00→21:09)
[2023-04-09] MEDS: Allopurinol 300 MG Tablet PO (09:00)
[2023-04-09] MEDS: Pantoprazole Sodium 40 MG Tablet PO (09:05)
[2023-04-09] MEDS: Azithromycin 500 MG in Dextrose 5%-Water (250mL Bag) 250 ML 250 MG IV (09:24)
[2023-04-09 09:42] LABS: Differential Comment SCANNED
--- NOTE | 2023-04-09 09:52 | PN.HOSP_ITS ---
Subjective Subjective Doing well, no issues overnight. White count is resolved Objective Data Objective Data Vital Signs: Vital Signs Temp Pulse Resp BP Pulse Ox O2 Del Method O2 Flow Rate 97.6 F L 70 18 121/70 H 96 Nasal Cannula 2 04/09/23 08:40 04/09/23 09:00 04/09/23 08:40 04/09/23 08:40 04/09/23 08:40 04/09/23 08:40 04/09/23 08:40 Oxygen Flow Rate (L/min) 2 Oxygen Delivery Method Nasal Cannula Weight: 266 lb 12.149 oz Body Mass Index (BMI) 38.2 Intake & Output: Intake and Output for Last 24 Hours 04/08/23 04/09/23 04/10/23 03:59 03:59 03:59 Intake Total 800 / 800 1245 / 1245 Output Total 500 / 500 975 / 975 225 / 225 Balance 300 / 300 270 / 270 -225 / -225 Lab / Micro Data 04/09/23 05:40 04/09/23 05:40 Labs: Laboratory Results - last 24 hr 04/09/23 05:40: WBC 3.3 L, RBC 3.19 L, Hgb 10.4 L, Hct 34.1 L, MCV 106.9 H, MCH 32.6 H, MCHC 30.5 L, RDW Std Deviation 60.1 H, RDW Coeff of Raina 15.3 H, Plt Count 69 L, MPV 11.6, Immature Gran % (Auto) 0.600, Neut % (Auto) 82.1 H, Lymph % (Auto) 7.3 L, [place] % (Auto) 6.4, Eos % (Auto) 3.0, Baso % (Auto) 0.6, Absolute Neuts (auto) 2.7, Absolute Lymphs (auto) 0.24 L, Nucleated RBC % 0, Differential Comment SCANNED, Sodium 141, Potassium 4.0, Chloride 113 H, Carbon Dioxide 26.0, Anion Gap 2 L, BUN 28 H, Creatinine 0.87, Estim Creat Clear Calc 66.43, Est GFR (MDRD) Af Amer 108, Est GFR (MDRD) Non-Af 89, BUN/Creatinine Ratio 32.2 H, Glucose 97, Calcium 10.2 H Physical Exam Narrative General: Alert, Oriented x3, Cooperative, No apparent distress HEENT: Atraumatic, PERRLA, EOMI, Normocephalic Oral: Moist Mucosa Neck: Supple, No JVD Lungs: Diminished, Normal air movement, No rhonchi, No wheeze, No rales Cardiovascular: Regular rate, Regular Rhythm, Normal S1, Normal S2, No murmurs Abdomen: Soft, Non Tender, Non-Distended, No Hepato-splenomegaly Extremities: No edema, Capillary Refill Less than 3 Seconds Skin: Chronic venous stasis changes with right lower extremity redness Musculoskeletal: No Tenderness to Palpation of Joints or Extremities Neurological: Cranial nerves II-XII grossly intact, Motor Exam 5/5 strength throughout, Sensory exam intact to light touch and pain Psych/Mental Status: Normal Affect, Appropriate Assessment & Plan Assessment/Plan (1) Paroxysmal A-fib: PLAN: Plan 1. Bibasilar community-acquired pneumonia with hypoxia with right lower extremity cellulitis ? Continue with Rocephin, after today he will of completed his azithromycin course, his hypoxia has resolved ? He did have an elevated D-dimer and CTA of the chest was negative for PE ? He is SNF appropriate will consult case management for assistance in discharge planning 2. Paroxysmal A-fib with RVR/HTN/HLD/aortic stenosis status post replacement/history of CVA/history of retinal artery occlusion ?Continue with his home blood pressure medications ? Continue with his home blood pressure medications, will monitor make adjustments as necessary ? Continue with his home cholesterol medications 3. Anemia of chronic disease in setting of CKD 3 ? Does have a history of polycystic kidney disease ? We will monitor renal function currently at baseline 4. 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 He does have stable ascites, will continue with his home medications ? Continue with his PPI 5. Gout ? Stable ? Continue with his home allopurinol 6. Anxiety/depression ? Stable ? Continue with home medications DVT: Lovenox Charges/Coding Visit Charges Inpatient E&M: 93052 Subs Hosp L2
[2023-04-09] MEDS: Sertraline 50 MG Tablet PO (21:10)
[2023-04-09] MEDS: Ceftriaxone 1 GM/50 ML BAG IV (21:16)
[2023-04-09] MEDS: 0.9% Saline Lock 10 ML Syringe IV (21:16)
[2023-04-10] VITALS (9 sets, daily range): BP systolic 111–128; BP diastolic 70–78; PULSE 68–94; RESP 16–20; TEMP 36.6; O2SAT 92–95
[2023-04-10] MEDS: Albuterol 2.5 MG/3 ML VIAL.NEB. INHALATION ×3 (07:00→18:59)
[2023-04-10] MEDS: Budesonide Respules 0.5 MG/2 ML AMPUL.NEB. INHALATION ×2 (07:00→18:59)
[2023-04-10] MEDS: Zinc Sulfate 50 mg zinc (220 mg) ORAL capsule PO (09:26)
[2023-04-10] MEDS: Cholecalciferol (Vit D3) 125 MCG CAPSULE (5,000 UNITS) PO (09:26)
[2023-04-10] MEDS: Aspirin E.C. 81 MG Tablet PO (09:26)
[2023-04-10] MEDS: Ferrous Sulfate 325 MG Tablet PO ×2 (09:26→16:18)
[2023-04-10] MEDS: Ascorbic Acid 500 MG Tablet PO (09:26)
[2023-04-10] MEDS: Metoprolol Tartrate 25 MG Tablet PO ×2 (09:26→20:57)
[2023-04-10] MEDS: rifAXIMin 550 MG Tablet PO ×2 (09:26→20:57)
[2023-04-10] MEDS: Pantoprazole Sodium 40 MG Tablet PO (09:26)
[2023-04-10] MEDS: Magnesium Chloride 64 MG Delay Rel.Tablet 128 MG PO (09:26)
[2023-04-10] MEDS: Allopurinol 300 MG Tablet PO (09:26)
--- NOTE | 2023-04-10 09:26 | PCM.PN.HOSP ---
Subjective Subjective Doing well, no issues overnight Objective Data Objective Data Vital Signs: Vital Signs Temp Pulse Resp BP Pulse Ox O2 Del Method O2 Flow Rate 97.9 F 69 18 111/70 92 Bi-pap 2 04/10/23 08:17 04/10/23 08:17 04/10/23 08:17 04/10/23 08:17 04/10/23 08:17 04/10/23 08:29 04/09/23 20:18 Oxygen Flow Rate (L/min) 2 Oxygen Delivery Method Bi-pap Weight: 266 lb 12.149 oz Body Mass Index (BMI) 38.2 Intake & Output: Intake and Output for Last 24 Hours 04/09/23 04/10/23 04/11/23 03:59 03:59 03:59 Intake Total 1245 / 1245 1245 / 1245 100 / 100 Output Total 975 / 975 1425 / 1425 300 / 300 Balance 270 / 270 -180 / -180 -200 / -200 Lab / Micro Data 04/09/23 05:40 04/09/23 05:40 Labs: Laboratory Results - last 24 hr 04/09/23 05:40: Differential Comment SCANNED Physical Exam Narrative General: Alert, Oriented x3, Cooperative, No apparent distress HEENT: Atraumatic, PERRLA, EOMI, Normocephalic Oral: Moist Mucosa Neck: Supple, No JVD Lungs: Diminished, Normal air movement, No rhonchi, No wheeze, No rales Cardiovascular: Regular rate, Regular Rhythm, Normal S1, Normal S2, No murmurs Abdomen: Soft, Non Tender, Non-Distended, No Hepato-splenomegaly Extremities: No edema, Capillary Refill Less than 3 Seconds Skin: Chronic venous stasis changes with right lower extremity redness Musculoskeletal: No Tenderness to Palpation of Joints or Extremities Neurological: Cranial nerves II-XII grossly intact, Motor Exam 5/5 strength throughout, Sensory exam intact to light touch and pain Psych/Mental Status: Normal Affect, Appropriate Assessment & Plan Assessment/Plan (1) Paroxysmal A-fib: PLAN: Plan 1. Bibasilar community-acquired pneumonia with hypoxia with right lower extremity cellulitis ? Continue with Rocephin, his hypoxia has resolved ? He did have an elevated D-dimer and CTA of the chest was negative for PE ? He is SNF appropriate will consult case management for assistance in discharge planning 2. Paroxysmal A-fib with RVR/HTN/HLD/aortic stenosis status post replacement/history of CVA/history of retinal artery occlusion ?Continue with his home blood pressure medications ? Continue with his home blood pressure medications, will monitor make adjustments as necessary ? Continue with his home cholesterol medications 3. Anemia of chronic disease in setting of CKD 3 ? Does have a history of polycystic kidney disease ? We will monitor renal function currently at baseline 4. 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 He does have stable ascites, will continue with his home medications ? Continue with his PPI 5. Gout ? Stable ? Continue with his home allopurinol 6. Anxiety/depression ? Stable ? Continue with home medications DVT: Lovenox Charges/Coding Visit Charges Inpatient E&M: 53060 Subs Hosp L2
[2023-04-10] MEDS: Multivitamins,Ther W-Minerals Tablet 1 TABLET PO (09:27)
[2023-04-10] MEDS: Miconazole Nitrate 43 GM Bottle 1 APPLIC TOPICAL ×2 (09:27→20:57)
[2023-04-10] MEDS: Enoxaparin 40 MG/0.4 ML Syringe SC (09:27)
[2023-04-10] MEDS: Tolterodine Tartrate 4 MG CAP.SA PO (09:27)
[2023-04-10] MEDS: Furosemide 20 MG Tablet PO (09:28)
[2023-04-10] MEDS: Sertraline 50 MG Tablet PO (20:57)
[2023-04-10] MEDS: Ceftriaxone 1 GM/50 ML BAG IV (20:58)
[2023-04-11] VITALS (7 sets, daily range): BP systolic 115–127; BP diastolic 76–81; PULSE 66–75; RESP 16–20; TEMP 36.4–36.6; O2SAT 93–99
[2023-04-11 05:55] LABS: Absolute Lymphocyte Count 0.21 X10^3/uL (0.83-4.51); Absolute Neutrophil Count 2.6 X10^3/uL (2.0-7.7); Basophil# 0.03 X10^3/uL; Basophil% 0.9 % (0-1); Eosinophil# 0.13 X10^3/uL; Hematocrit 36.2 % (40-54); Hemoglobin 11.3 g/dL (13.0-16.5); Lymphocyte # 0.21 X10^3/ul (0.83-4.51); Lymphocyte % 6.5 % (19-41); Mean Corp Hgb Conc 31.2 g/dL (32-36); Mean Corpuscular Hgb 32.7 pg (27.0-32.0); Mean Corpuscular Volume 104.6 fL (80-94); Mean Platelet Vol. 10.5 fl (6.2-12.0); Monocyte# 0.22 X10^3/uL; Monocyte% 6.8 % (0-10); NRBC Flagged by Analyzer 0 % (0-5); Neutrophil # 2.63 X10^3/uL (2.7-7.7); Neutrophil % 81.5 % (47-70); POSITIVE COUNT YES; POSITIVE DIFFERENTIAL YES; Platelet Count 62 K/mm3 (150-450); RBC Distribution Width CV 15.1 % (11.6-14.6); RBC Distribution Width SD 58.3 fl (35.1-43.9); Red Blood Count 3.46 M/mm3 (4.6-6.2); White Blood Count 3.2 K/mm3 (4.4-11.0)
[2023-04-11 06:08] LABS: Differential Indicated SCAN CRITERIA MET
[2023-04-11 06:27] LABS: Anion Gap 2 (5-15); BUN 24 mg/dL (7-18); Calcium,Total 10.7 mg/dL (8.5-10.1); Chloride 112 mmol/L (98-107); Creatinine, Serum 0.77 mg/dL (0.70-1.30); EST Glomerular Filtration Rate 102 mL/min (>60); Est Glom Filt Rate - Afr Amer 123 mL/min (>60); Estimated Creatinine Clearance 57.79 ml/min; Glucose 94 mg/dL (74-106); Sodium Level 141 mmol/L (136-145)
[2023-04-11 06:34] LABS: Differential Comment SCANNED
[2023-04-11] MEDS: Budesonide Respules 0.5 MG/2 ML AMPUL.NEB. INHALATION (07:16)
[2023-04-11] MEDS: Albuterol 2.5 MG/3 ML VIAL.NEB. INHALATION ×2 (07:16→13:10)
[2023-04-11] MEDS: Metoprolol Tartrate 25 MG Tablet PO (09:33)
[2023-04-11] MEDS: Aspirin E.C. 81 MG Tablet PO (09:33)
[2023-04-11] MEDS: rifAXIMin 550 MG Tablet PO (09:33)
[2023-04-11] MEDS: Ascorbic Acid 500 MG Tablet PO (09:34)
[2023-04-11] MEDS: Pantoprazole Sodium 40 MG Tablet PO (09:34)
[2023-04-11] MEDS: Allopurinol 300 MG Tablet PO (09:34)
[2023-04-11] MEDS: Tolterodine Tartrate 4 MG CAP.SA PO (09:34)
[2023-04-11] MEDS: Magnesium Chloride 64 MG Delay Rel.Tablet 128 MG PO (09:34)
[2023-04-11] MEDS: Cholecalciferol (Vit D3) 125 MCG CAPSULE (5,000 UNITS) PO (09:34)
[2023-04-11] MEDS: Multivitamins,Ther W-Minerals Tablet 1 TABLET PO (09:34)
[2023-04-11] MEDS: Ferrous Sulfate 325 MG Tablet PO (09:34)
[2023-04-11] MEDS: Zinc Sulfate 50 mg zinc (220 mg) ORAL capsule PO (09:41)
[2023-04-11] MEDS: Miconazole Nitrate 43 GM Bottle 1 APPLIC TOPICAL (09:49)
--- NOTE | 2023-04-11 10:39 | PCM.PN.HOSP ---
Subjective Subjective Doing well, no issues overnight Objective Data Objective Data Vital Signs: Vital Signs Temp Pulse Resp BP Pulse Ox O2 Del Method O2 Flow Rate 97.5 F L 66 16 115/76 93 Nasal Cannula 2 04/11/23 09:28 04/11/23 09:33 04/11/23 09:28 04/11/23 09:33 04/11/23 09:28 04/11/23 09:28 04/11/23 09:28 Oxygen Flow Rate (L/min) 2 Oxygen Delivery Method Nasal Cannula Weight: 266 lb 12.149 oz Body Mass Index (BMI) 38.2 Intake & Output: Intake and Output for Last 24 Hours 04/10/23 04/11/23 04/12/23 03:59 03:59 03:59 Intake Total 1245 / 1245 1190 / 1190 Output Total 1425 / 1425 900 / 900 Balance -180 / -180 290 / 290 Lab / Micro Data 04/11/23 05:37 04/11/23 05:37 Labs: Laboratory Results - last 24 hr 04/09/23 05:40: Diff Path Review August04/11/23 05:37: WBC 3.2 L, RBC 3.46 L, Hgb 11.3 L, Hct 36.2 L, MCV 104.6 H, MCH 32.7 H, MCHC 31.2 L, RDW Std Deviation 58.3 H, RDW Coeff of Raina 15.1 H, Plt Count 62 L, MPV 10.5, Immature Gran % (Auto) 0.300, Neut % (Auto) 81.5 H, Lymph % (Auto) 6.5 L, [place] % (Auto) 6.8, Eos % (Auto) 4.0, Baso % (Auto) 0.9, Absolute Neuts (auto) 2.6, Absolute Lymphs (auto) 0.21 L, Nucleated RBC % 0, Differential Comment SCANNED, Diff Path Review August, Sodium 141, Potassium 4.0, Chloride 112 H, Carbon Dioxide 27.0, Anion Gap 2 L, BUN 24 H, Creatinine 0.77, Estim Creat Clear Calc 57.79, Est GFR (MDRD) Af Amer 123, Est GFR (MDRD) Non-Af 102, BUN/Creatinine Ratio 31.0 H, Glucose 94, Calcium 10.7 H Physical Exam Narrative General: Alert, Oriented x3, Cooperative, No apparent distress HEENT: Atraumatic, PERRLA, EOMI, Normocephalic Oral: Moist Mucosa Neck: Supple, No JVD Lungs: Diminished, Normal air movement, No rhonchi, No wheeze, No rales Cardiovascular: Regular rate, Regular Rhythm, Normal S1, Normal S2, No murmurs Abdomen: Soft, Non Tender, Non-Distended, No Hepato-splenomegaly Extremities: No edema, Capillary Refill Less than 3 Seconds Skin: Chronic venous stasis changes with right lower extremity redness Musculoskeletal: No Tenderness to Palpation of Joints or Extremities Neurological: Cranial nerves II-XII grossly intact, Motor Exam 5/5 strength throughout, Sensory exam intact to light touch and pain Psych/Mental Status: Normal Affect, Appropriate Assessment & Plan Assessment/Plan (1) Paroxysmal A-fib: PLAN: Plan 1. Bibasilar community-acquired pneumonia with hypoxia with right lower extremity cellulitis ? Continue with Rocephin, his hypoxia has resolved ? He did have an elevated D-dimer and CTA of the chest was negative for PE ? He is SNF appropriate will consult case management for assistance in discharge planning 2. Paroxysmal A-fib with RVR/HTN/HLD/aortic stenosis status post replacement/history of CVA/history of retinal artery occlusion ?Continue with his home blood pressure medications ? Continue with his home blood pressure medications, will monitor make adjustments as necessary ? Continue with his home cholesterol medications 3. Anemia of chronic disease in setting of CKD 3 ? Does have a history of polycystic kidney disease ? We will monitor renal function currently at baseline 4. 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 He does have stable ascites, will continue with his home medications ? Continue with his PPI 5. Gout ? Stable ? Continue with his home allopurinol 6. Anxiety/depression ? Stable ? Continue with home medications DVT: Lovenox Charges/Coding Visit Charges Inpatient E&M: 35539 Subs Hosp L2
[2023-04-11 11:07] LABS: Vitamin D 1,25-Dihydroxy 28.7 pg/mL (24.8-81.5)
--- NOTE | 2023-04-11 12:44 | CASEMGMT ---
Discharge Planning Patient has been accepted by [facility]. SW updated. Eliza Bland, Discharge Planning Asst.
--- NOTE | 2023-04-11 13:26 | TREXTCAR_ITS ---
Diet Diet Order/Speech Therapy: 04/07/23 02:05 Diet: Cardiac - Heart Healthy Is pt able to select menu?: Yes Fluid restriction:: 1500 mL Routine Orders/Code Status Routine Lab Work: CBC and BMP Code Status: DNRCC-A Wound(s) right nair: Wound Type: small open blister Dressing Change: Adaptic Therapies Physical Therapy: Eval and Treat Occupational Therapy: Eval and Treat Problem/Diagnosis (1) Paroxysmal A-fib: Status: Acute Code(s): I48.0 - Paroxysmal atrial fibrillation Plan 1. Bibasilar community-acquired pneumonia with hypoxia with right lower extremity cellulitis ? Continue with Rocephin, his hypoxia has resolved ? He did have an elevated D-dimer and CTA of the chest was negative for PE ? He is SNF appropriate will consult case management for assistance in discharge planning 2. Paroxysmal A-fib with RVR/HTN/HLD/aortic stenosis status post replacement/history of CVA/history of retinal artery occlusion ?Continue with his home blood pressure medications ? Continue with his home blood pressure medications, will monitor make adjustments as necessary ? Continue with his home cholesterol medications 3. Anemia of chronic disease in setting of CKD 3 ? Does have a history of polycystic kidney disease ? We will monitor renal function currently at baseline 4. 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 He does have stable ascites, will continue with his home medications ? Continue with his PPI 5. Gout ? Stable ? Continue with his home allopurinol 6. Anxiety/depression ? Stable ? Continue with home medications DVT: Lovenox Allergies/Procedures Done in Hospital Allergies hydrocodone [From Vicodin] Allergy (Verified 04/06/23 21:38) Other strawberry Allergy (Verified 04/06/23 21:38) Hives venom-honey bee [bee venom (honey bee)] Allergy (Verified 04/06/23 21:38) Anaphylaxis adhesive tape Adverse Reaction (Verified 10/29/22 19:14) Rash atorvastatin Adverse Reaction (Verified 04/06/23 21:38) PT UNSURE OF REACTION montelukast Adverse Reaction (Verified 04/06/23 21:38) PT UNSURE OF REACTION Procedures: None Type of Care/Length of Stay Estimated LOS: Convalescent Care Less Than 30 days Type of Care Needed: Skilled Rehab Potential: Fair Prognosis: Fair Additional Orders/Day of Discharge Day of Discharge: 04/11/23 Dietary and Speech Recommendations Dietitian Recommendations/Changes: continue cardiac diet w/ 1500mL fluid restriction as indicated Discharge Plan Admission Admit Date/Time: 04/07/23 00:54 Attending Provider: Esdras James Primary Care Provider: Ricky Bradley Consulting Providers: Felicita Navarro; Amirah Diaz; Reyes Brown; Obdulio Barreto; Lucy Nogueira; Parveen Charlton; Prashant Stoll; Tom Orellana; Topher Piña; Bruce Dewitt; Mikey Whaley; Geovany Vásquez; Josse Cheng; Yuniel Recinos; Bharat Bernard; Seb eMza; Shahram Bach; Tonio Fields [employer]; Felicita Silva [employer]; Laura Serrano PA; Yousif Ann Discharge Orders/Prescriptions Prescriptions: New cefdinir 300 mg capsule 300 mg PO BID 4 Days Qty: 8 0RF Continued ferrous sulfate 325 mg (65 mg iron) tablet 325 mg PO BID aspirin [Adult Aspirin Regimen] 81 mg tablet,delayed release (DR/EC) 81 mg PO DAILY oxybutynin chloride 15 mg tablet extended release 24hr 30 mg PO DAILY albuterol sulfate 90 mcg/actuation HFA aerosol inhaler 2 puff inhalation Q6H PRN (Reason: ASTHMA) fluticasone propionate 50 mcg/actuation spray,suspension 1 spray intranasal DAILY omeprazole 40 mg capsule,delayed release(DR/EC) 40 mg PO DAILY furosemide 20 mg tablet 20 mg PO Q OTHER DAY ascorbic acid (vitamin C) 500 mg capsule 500 mg PO DAILY nitroglycerin 0.4 mg tablet, sublingual 0.4 mg sublingual Q5M PRN (Reason: chest pain) Rx Instructions: do not exceed 3 doses per episode magnesium oxide 400 MG tablet 400 mg PO DAILY allopurinol 300 MG tablet 300 mg PO DAILY Patient Comments: GOUT [id number]-lutein 1 EACH tablet 1 ea PO DAILY fenofibrate nanocrystallized 48 MG tablet 48 mg PO DAILY Patient Comments: CHOLESTEROL sertraline 100 MG tablet 50 mg PO QHS lidocaine [Lidoderm] 5 % adhesive patch,medicated 1 patch topical DAILY Qty: 15 0RF Rx Instructions: leave on most painful area for up to 12 hrs diltiazem HCl 120 mg capsule,extended release 24hr 120 mg PO DAILY Qty: 30 0RF metoprolol tartrate 25 mg tablet 25 mg PO BID Qty: 60 0RF Xifaxan 550 mg tablet 550 mg PO BID cyanocobalamin (vitamin B-12) 5,000 mcg capsule 2,500 mcg PO DAILY fluticasone furoate-vilanterol [Breo Ellipta] 200-25 mcg/dose blister with device 1 inh inhalation DAILY Referrals / Follow Up: Ricky Bradley MD [Primary Care Provider] - Disposition Disposition (needs filled in before D/C Order can be placed): Sn[facility] Facility
[2023-04-11 13:40] LABS: Pathologist Review Reviewed
--- NOTE | 2023-04-11 14:56 | PCM.DC.SUM ---
Providers Date of Admission: 04/07/23 Primary Care Physician: Dr. Ricky Bradley MD Consultations 04/07/23 01:32 Consult: Cardiology Routine Consulting Provider: [facility] Reason for Consult: Paroxysmal atrial fibrillation with rapid ventricular response EMERGENT Consult: No MD Notified: Yes Date Notified: 04/07/23 Time Notified: 06:36 Method of Notification: Text Method of Consult:: In-Person 04/07/23 02:06 Consult: Onc/Wound/mosaic tiler Routine Comment: Reason For Visit: BIBASILAR PNEUMONIA & PARAXYSMAL ATRIAL FIB Diagnosis Discharge Diagnosis (1) Paroxysmal A-fib: Status: Acute Code(s): I48.0 - Paroxysmal atrial fibrillation Medications at Discharge Home Medications allopurinol 300 mg tablet 300 mg PO DAILY gout 04/12/16 fenofibrate nanocrystallized 48 mg tablet 48 mg PO DAILY cholesterol 04/12/16 magnesium oxide 400 mg (241.3 mg magnesium) tablet 400 mg PO DAILY supplement 04/12/16 vvqgaggi-qks-mtukv acid 0.4 mg-lycopene 300 mcg-lutein 250 mcg tablet 1 ea PO DAILY vitamin 04/12/16 sertraline 100 mg tablet 50 mg PO QHS depression 09/05/19 aspirin 81 mg tablet,delayed release (Adult Aspirin Regimen) 81 mg PO DAILY 11/10/20 ferrous sulfate 325 mg (65 mg iron) tablet 325 mg PO BID 11/10/20 albuterol sulfate 90 mcg/actuation aerosol inhaler 2 puff inhalation Q6H PRN ASTHMA 05/25/21 fluticasone propionate 50 mcg/actuation nasal spray,suspension 1 spray intranasal DAILY 05/25/21 omeprazole 40 mg capsule,delayed release 40 mg PO DAILY 05/25/21 oxybutynin chloride 15 mg tablet,extended release 24 hr 30 mg PO DAILY 05/25/21 ascorbic acid (vitamin C) 500 mg capsule 500 mg PO DAILY 05/17/22 furosemide 20 mg tablet 20 mg PO Q OTHER DAY 05/17/22 nitroglycerin 0.4 mg sublingual tablet 0.4 mg sublingual Q5M PRN chest pain 05/17/22 lidocaine 5 % topical patch (Lidoderm) 1 patch topical DAILY #15 ea 09/11/22 cyanocobalamin (vitamin B-12) 5,000 mcg capsule 2,500 mcg PO DAILY 07/15/23 rifaximin 550 mg tablet (Xifaxan) 550 mg PO BID 10/29/22 diltiazem HCl 120 mg capsule,extended release 24 hr 120 mg PO DAILY #30 caps 12/07/22 metoprolol tartrate 25 mg tablet 25 mg PO BID #60 tabs 12/07/22 fluticasone furoate 200 mcg-vilanterol 25 mcg/dose inhalation powder (Breo Ellipta) 1 inh inhalation DAILY 04/06/23 cefdinir 300 mg capsule 300 mg PO BID 4 days #8 caps 04/11/23 Hospital Course Operations None Procedures None Summary of Care Provided Minutes Spent on Discharge: 36 Hospital Course: Per HPI: Hospital Course: 1. Bibasilar community-acquired pneumonia with hypoxia with right lower extremity cellulitis ? Continue with Rocephin, his hypoxia has resolved ? He did have an elevated D-dimer and CTA of the chest was negative for PE ? He is SNF appropriate will consult case management for assistance in discharge planning 04/11/2023: Remains stable does well wearing his BiPAP at night has not needed much oxygen throughout the day and tolerating his antibiotic. He did complete his azithromycin and will just finish a few days more of p.o. cefdinir. I discussed with him the plan for discharge to SNF today he expressed understanding of the risk and benefits of going [facility] and would like to go today to start his physical therapy. All of his home medications were continued, he does have some chronic lower extremity edema which was negative on Doppler for DVT 2. Paroxysmal A-fib with RVR/HTN/HLD/aortic stenosis status post replacement/history of CVA/history of retinal artery occlusion ?Continue with his home blood pressure medications ? Continue with his home blood pressure medications, will monitor make adjustments as necessary ? Continue with his home cholesterol medications 3. Anemia of chronic disease in setting of CKD 3 ? Does have a history of polycystic kidney disease ? We will monitor renal function currently at baseline 4. 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 He does have stable ascites, will continue with his home medications ? Continue with his PPI 5. Gout ? Stable ? Continue with his home allopurinol 6. Anxiety/depression ? Stable ? Continue with home medications Physical Exam Narrative General: Alert, Oriented x3, Cooperative, No apparent distress HEENT: Atraumatic, PERRLA, EOMI, Normocephalic Oral: Moist Mucosa Neck: Supple, No JVD Lungs: Diminished, Normal air movement, No rhonchi, No wheeze, No rales Cardiovascular: Regular rate, Regular Rhythm, Normal S1, Normal S2, No murmurs Abdomen: Soft, Non Tender, Non-Distended, No Hepato-splenomegaly Extremities: No edema, Capillary Refill Less than 3 Seconds Skin: Chronic venous stasis changes with right lower extremity redness Musculoskeletal: No Tenderness to Palpation of Joints or Extremities Neurological: Cranial nerves II-XII grossly intact, Motor Exam 5/5 strength throughout, Sensory exam intact to light touch and pain Psych/Mental Status: Normal Affect, Appropriate Weight / BMI Weight Weight: 266 lb 12.149 oz Body Mass Index (BMI) 38.2 ABG / Lab / Microbiology Data 04/11/23 05:37 04/11/23 05:37 Laboratory: Laboratory Results - last 24 hr 04/07/23 03:30: Vit D 1,25-Dihydroxy 28.7 04/09/23 05:40: Diff Path Review Reviewed 04/11/23 05:37: WBC 3.2 L, RBC 3.46 L, Hgb 11.3 L, Hct 36.2 L, MCV 104.6 H, MCH 32.7 H, MCHC 31.2 L, RDW Std Deviation 58.3 H, RDW Coeff of Raina 15.1 H, Plt Count 62 L, MPV 10.5, Immature Gran % (Auto) 0.300, Neut % (Auto) 81.5 H, Lymph % (Auto) 6.5 L, [place] % (Auto) 6.8, Eos % (Auto) 4.0, Baso % (Auto) 0.9, Absolute Neuts (auto) 2.6, Absolute Lymphs (auto) 0.21 L, Nucleated RBC % 0, Differential Comment SCANNED, Diff Path Review August, Sodium 141, Potassium 4.0, Chloride 112 H, Carbon Dioxide 27.0, Anion Gap 2 L, BUN 24 H, Creatinine 0.77, Estim Creat Clear Calc 57.79, Est GFR (MDRD) Af Amer 123, Est GFR (MDRD) Non-Af 102, BUN/Creatinine Ratio 31.0 H, Glucose 94, Calcium 10.7 H Radiography Diagnostic Testing: Radiology Impression Venous Doppler Study 04/07/23 01:00 Interpretation Summary Deep veins of the bilateral lower extremities are patent and compressible segmentally. There is no evidence of bilateral lower extremity deep vein thrombosis. The bilateral great saphenous veins appear patent and compressible segmentally. Ordering Physician: Yousif Ann Referring Physician: Ricky Bradley M.D. Performed By: Marisol Johnson RVT Meaningful Use Info Meaningful Use Diagnoses (Choose all that apply): None applicable Discharge Plan Admission Admit Date/Time: 04/07/23 00:54 Attending Provider: Esdras James Primary Care Provider: Ricky Bradley Consulting Providers: Felicita Navarro; Amirah Diaz; Reyes Brown; Obdulio Barreto; Lucy Nogueira; Parveen Charlton; Prashant Stoll; Tom Orellana; Topher Piña; Bruce Dewitt; Mikey Whaley; Geovany Vásquez; Josse Cheng; Yuniel Recinos; Bharat Bernard; Seb Meza; Shahram Bach; Tonio Fields [employer]; Felicita Silva NP; Laura Serrano; Yousif Ann Discharge Orders/Prescriptions Prescriptions: New cefdinir 300 mg capsule 300 mg PO BID 4 Days Qty: 8 0RF Continued ferrous sulfate 325 mg (65 mg iron) tablet 325 mg PO BID aspirin [Adult Aspirin Regimen] 81 mg tablet,delayed release (DR/EC) 81 mg PO DAILY oxybutynin chloride 15 mg tablet extended release 24hr 30 mg PO DAILY albuterol sulfate 90 mcg/actuation HFA aerosol inhaler 2 puff inhalation Q6H PRN (Reason: ASTHMA) fluticasone propionate 50 mcg/actuation spray,suspension 1 spray intranasal DAILY omeprazole 40 mg capsule,delayed release(DR/EC) 40 mg PO DAILY furosemide 20 mg tablet 20 mg PO Q OTHER DAY ascorbic acid (vitamin C) 500 mg capsule 500 mg PO DAILY nitroglycerin 0.4 mg tablet, sublingual 0.4 mg sublingual Q5M PRN (Reason: chest pain) Rx Instructions: do not exceed 3 doses per episode magnesium oxide 400 MG tablet 400 mg PO DAILY allopurinol 300 MG tablet 300 mg PO DAILY Patient Comments: GOUT mqapleto-ndv-FT-lycopen-lutein 1 EACH tablet 1 ea PO DAILY fenofibrate nanocrystallized 48 MG tablet 48 mg PO DAILY Patient Comments: CHOLESTEROL sertraline 100 MG tablet 50 mg PO QHS lidocaine [Lidoderm] 5 % adhesive patch,medicated 1 patch topical DAILY Qty: 15 0RF Rx Instructions: leave on most painful area for up to 12 hrs diltiazem HCl 120 mg capsule,extended release 24hr 120 mg PO DAILY Qty: 30 0RF metoprolol tartrate 25 mg tablet 25 mg PO BID Qty: 60 0RF Xifaxan 550 mg tablet 550 mg PO BID cyanocobalamin (vitamin B-12) 5,000 mcg capsule 2,500 mcg PO DAILY fluticasone furoate-vilanterol [Breo Ellipta] 200-25 mcg/dose blister with device 1 inh inhalation DAILY Referrals / Follow Up: Ricky Bradley MD [Primary Care Provider] - Disposition Disposition (needs filled in before D/C Order can be placed): [facility] Charges/Coding Visit Charges Inpatient E&M: 03519 Disch Hosp >30min
--- NOTE | 2023-04-11 15:54 | CASEMGMT ---
Discharge Planning Discharge orders, signed med list, covid results, and transport time sent to [facility] via [facility]. [facility] will transport patient by wheelchair at 4:30p. Nursing, SW, patient, and his daughter updated. Eliza Bland, Discharge Planning Asst.
--- NOTE | 2023-04-11 16:07 | NURSING ---
Report called to Meseret at [facility] at 1553.
[2023-04-12 13:19] LABS: Pathologist Review Reviewed
== END 2023-04-11 17:09 | disposition skilled nursing facility (03) | DRG 194 ==
LOC: ED 23:44 → PCU 04-07 00:09
PROVIDERS: Admitting Provider Internal Medicine; Emergency Provider Student in an Organized Health Care Education/Training Program; PCP Internal Medicine; Visit Provider Family Medicine
DX: J18.9 Pneumonia, unspecified organism (principal); L03.115 Cellulitis of right lower limb; R18.8 Other ascites; D63.1 Anemia in chronic kidney disease; K75.81 Nonalcoholic steatohepatitis (NASH); N18.30 Chronic kidney disease, stage 3 unspecified; E66.01 Morbid (severe) obesity due to excess calories; I48.0 Paroxysmal atrial fibrillation; I12.9 Hypertensive chronic kidney disease with stage 1 through stage 4 chronic kidney disease, or unspecified chronic kidney disease; F32.A Depression, unspecified; I35.0 Nonrheumatic aortic (valve) stenosis; E78.5 Hyperlipidemia, unspecified; K21.9 Gastro-esophageal reflux disease without esophagitis; I25.10 Atherosclerotic heart disease of native coronary artery without angina pectoris; F41.9 Anxiety disorder, unspecified; M1A.9XX0 Chronic gout, unspecified, without tophus (tophi); R09.02 Hypoxemia; R29.6 Repeated falls; Z66 Do not resuscitate; Z68.38 Body mass index [BMI] 38.0-38.9, adult; Z95.2 Presence of prosthetic heart valve; Z79.82 Long term (current) use of aspirin; Z79.899 Other long term (current) drug therapy; Z85.05 Personal history of malignant neoplasm of liver; Z86.73 Personal history of transient ischemic attack (TIA), and cerebral infarction without residual deficits
CPT/HCPCS: 36415; 71045; 71275; 80048; 80053; 80076; 82652; 83690; 83880; 83970; 84484; 85025; 85379; 87426; 93005; 93970; 94640; 97116; 97162; 97166; 97530; 97535; 99284; J7030; J7050; Q9967; A4216

== ENCOUNTER 2023-05-24 14:42 | Inpatient (IN) | payer MEDICARE, OTHER, SELFPAY ==
[2023-05-24] VITALS (7 sets, daily range): BP systolic 102–142; BP diastolic 88–109; PULSE 62–130; RESP 12–22; TEMP 35.9–36.5; O2SAT 93–99; BMI 35.4; BMI 34.4
[2023-05-24] MEDS: 0.9% Normal Saline (500mL Bag) 500 ML 1000 ML IV (15:13)
--- NOTE | 2023-05-24 15:22 | RAD_ITS ---
STUDY: X-RAY CHEST REASON FOR EXAM: Male, 83 years old. Weakness TECHNIQUE: Single AP portable view of the chest. COMPARISON: Comparison is made with prior study dated April 06, 2023. FINDINGS: EKG electrodes are seen. There is elevation of the right hemidiaphragm with blunting of the right costophrenic angle. Increased markings at both lung bases as well as in the right upper lobe abutting the right minor fissure. Follow-up recommended. Sternal cerclage wires and vascular clips are present from a prior sternotomy and coronary artery bypass graft procedure (CABG). Normal mediastinum and yancy. Normal visualized pulmonary arteries. There is atherosclerotic calcification of the aortic arch with tortuosity. Normal visualized thoracic spine. Normal visualized ribs, clavicles, and shoulders. There is no demonstrated abnormality of the visualized soft tissue structures of the upper abdomen. RAD/Chest 1 View (Portable) IMPRESSION: Blunting of the right costophrenic angle with bibasilar atelectasis and/or infiltrates as well as increased markings in the right upper lobe abutting the right minor fissure. Follow-up recommended. Electronically Signed: Gary Barreto MD at 15:35 EST ,
--- NOTE | 2023-05-24 15:25 | CT_ITS ---
STUDY: CT BRAIN WITHOUT CONTRAST REASON FOR EXAM: Male, 83 years old. Altered mental status RADIATION DOSAGE (If Supplied By Facility): CTDIvol = ( 44.99 ) mGy, DLP = ( 846.73 ) mGycm TECHNIQUE: Transaxial CT imaging of the brain was performed without administration of intravenous contrast material. Individualized dose optimization techniques were used for this CT. COMPARISON: Comparison is made with prior study December 08, 2021. FINDINGS: Normal soft tissue structures. Normal calvarium. There is mild cerebral atrophy with widening of the extra-axial spaces and ventricular dilatation. There are areas of decreased attenuation within the white matter tracts of the supratentorial brain, consistent with microvascular disease changes. Normal basal ganglia and thalami. Normal brainstem. There is mild cerebellar atrophy. There is no intracranial hemorrhage. There are no findings of an acute ischemic infarction. Atherosclerotic calcific plaques of the cavernous portions of the internal carotid arteries bilaterally. Normal visualized paranasal sinuses. CT/Brain/Head without Contrast IMPRESSION: Chronic involutional changes of the brain. Electronically Signed: Gary Barreto MD at 15:43 EST ,
[2023-05-24 15:42] LABS: Absolute Lymphocyte Count 0.25 X10^3/uL (0.83-4.51); Absolute Neutrophil Count 4.3 X10^3/uL (2.0-7.7); Basophil# 0.01 X10^3/uL; Basophil% 0.2 % (0-1); Eosinophil# 0.04 X10^3/uL; Eosinophils% 0.8 % (0-5); Hematocrit 32.7 % (40-54); Hemoglobin 10.7 g/dL (13.0-16.5); Lymphocyte # 0.25 X10^3/ul (0.83-4.51); Lymphocyte % 5.1 % (19-41); Mean Corp Hgb Conc 32.7 g/dL (32-36); Mean Corpuscular Hgb 32.8 pg (27.0-32.0); Mean Corpuscular Volume 100.3 fL (80-94); Mean Platelet Vol. 11.9 fl (6.2-12.0); Monocyte# 0.29 X10^3/uL; Monocyte% 5.9 % (0-10); NRBC Flagged by Analyzer 0 % (0-5); Neutrophil # 4.32 X10^3/uL (2.7-7.7); Neutrophil % 87.8 % (47-70); POSITIVE COUNT YES; POSITIVE DIFFERENTIAL YES; Platelet Count 58 K/mm3 (150-450); RBC Distribution Width CV 16.9 % (11.6-14.6); RBC Distribution Width SD 61.5 fl (35.1-43.9); Red Blood Count 3.26 M/mm3 (4.6-6.2); White Blood Count 4.9 K/mm3 (4.4-11.0)
[2023-05-24 15:55] LABS: ALB/GLOB Ratio 0.6 RATIO (0.9-2.4); AST(SGOT) 36 U/L (15-37); Alanine Aminotransfer ALT/SGPT 29 U/L (16-61); Albumin, Serum 2.3 g/dL (3.2-5.0); Alkaline Phosphatase 156 U/L (45-117); Anion Gap 1 (5-15); BUN 40 mg/dL (7-18); BUN/Creat Ratio 33.6 RATIO (10-20); Calcium,Total 12.5 mg/dL (8.5-10.1); Chloride 110 mmol/L (98-107); Creatinine, Serum 1.19 mg/dL (0.70-1.30); EST Glomerular Filtration Rate 62 mL/min (>60); Est Glom Filt Rate - Afr Amer 75 mL/min (>60); Estimated Creatinine Clearance 57.96 ml/min; Globulin 3.6 g/dL (2.2-4.2); Glucose 119 mg/dL (74-106); Potassium 3.8 mmol/L (3.5-5.1); Protein, Total 5.9 g/dL (6.4-8.2); Sodium Level 140 mmol/L (136-145); Troponin-I HS 24 pg/mL (3.0-78.0)
[2023-05-24 16:22] LABS: BNP,B-Type NATRIURETIC PEPTIDE 104.6 pg/mL (0-100)
--- NOTE | 2023-05-24 16:42 | EX.ED.DYSGE1 ---
HPI History of Present Illness Chief Complaint: Weakness Narrative Narrative: 83-year-old male presenting for evaluation of altered mental status. Patient is not able to give history. Patient has a history of cirrhosis, liver cancer, GERD, anemia, CVA currently in assisted living. His daughter gives most of the history. She states that he just had a PT/OT evaluation and is going to go to the [facility] since Monday has not been himself. She reports that Monday he started to have having difficulty talking and at times slurred speech. She states that she asked him about going to [employer] to get a frosty and had several conversations after that and then later she states he replied yes to her question about her prostate. She estimates she is about 20 minutes. Patient with no history of falls at the nursing. Daughter states that he in addition to this has had some contracture of the right fingers of the right hand. Although when I ask him to he can open his hand and it does not appear to be in contracture. Patient states she noted that his left leg was not usable when she tried to transfer him from bed to car and vice versa. She states she was told that he was a 1 person assist but is required 2 people because he cannot use his left leg. [facility] Medical History (Updated 05/24/23 @ 17:[address] Sue Roman MD) Anemia Anemia in chronic kidney disease Anemia of chronic disease Aortic valve disorder Asthma Body mass index (BMI) 40.0-44.9, adult Chronic acquired lymphedema CKD (chronic kidney disease), stage III Depression Essential (primary) hypertension GERD (gastroesophageal reflux disease) Gout History of cerebrovascular accident History of splenomegaly Hyperlipemia Liver cancer Morbid obesity Multiple lung nodules New onset atrial flutter Non-alcoholic cirrhosis Nonobstructive atherosclerosis of coronary artery Nonrheumatic aortic (valve) stenosis OAB (overactive bladder) Obesity Obesity (BMI 30-39.9) DEMI treated with BiPAP Osteoarthritis Paroxysmal A-fib PCK (polycystic kidney disease) Peripheral neuropathy Polycystic kidney disease 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) Right bundle branch block (RBBB) Splenomegaly Thrombocytopenia Thrombocytopenia Urge incontinence Home Medications allopurinol 300 mg tablet 300 mg PO DAILY gout 04/12/16 [History Last Taken 04/07/19] fenofibrate nanocrystallized 48 mg tablet 48 mg PO DAILY cholesterol 04/12/16 [History Last Taken 04/07/19] magnesium oxide 400 mg (241.3 mg magnesium) tablet 400 mg PO DAILY supplement 04/12/16 [History Last Taken 04/07/19] crrdvgmo-mdq-nugup acid 0.4 mg-lycopene 300 mcg-lutein 250 mcg tablet 1 ea PO DAILY vitamin 04/12/16 [History Last Taken 04/07/19] sertraline 100 mg tablet 50 mg PO QHS depression 09/05/19 [History Last Taken Unknown] aspirin 81 mg tablet,delayed release (Adult Aspirin Regimen) 81 mg PO DAILY 11/10/20 [History Last Taken Unknown] ferrous sulfate 325 mg (65 mg iron) tablet 325 mg PO BID 11/10/20 [History Last Taken Unknown] albuterol sulfate 90 mcg/actuation aerosol inhaler 2 puff inhalation Q6H PRN ASTHMA 05/25/21 [History Last Taken Unknown] fluticasone propionate 50 mcg/actuation nasal spray,suspension 1 spray intranasal DAILY 05/25/21 [History Last Taken Unknown] omeprazole 40 mg capsule,delayed release 40 mg PO DAILY 05/25/21 [History Last Taken Unknown] oxybutynin chloride 15 mg tablet,extended release 24 hr 30 mg PO DAILY 05/25/21 [History Last Taken Unknown] ascorbic acid (vitamin C) 500 mg capsule 500 mg PO DAILY 05/17/22 [History Last Taken Unknown] furosemide 20 mg tablet 20 mg PO Q OTHER DAY 05/17/22 [History Last Taken Unknown] nitroglycerin 0.4 mg sublingual tablet 0.4 mg sublingual Q5M PRN chest pain 05/17/22 [History Last Taken Unknown] lidocaine 5 % topical patch (Lidoderm) 1 patch topical DAILY #15 ea 09/11/22 [Rx Last Taken Unknown] cyanocobalamin (vitamin B-12) 5,000 mcg capsule 2,500 mcg PO DAILY 10/29/22 [History Last Taken Unknown] rifaximin 550 mg tablet (Xifaxan) 550 mg PO BID 10/29/22 [History Last Taken Unknown] diltiazem HCl 120 mg capsule,extended release 24 hr 120 mg PO DAILY #30 caps 12/07/22 [Rx Last Taken Unknown] metoprolol tartrate 25 mg tablet 25 mg PO BID #60 tabs 12/07/22 [Rx Last Taken Unknown] fluticasone furoate 200 mcg-vilanterol 25 mcg/dose inhalation powder (Breo Ellipta) 1 inh inhalation DAILY 04/06/23 [History Last Taken Unknown] cefdinir 300 mg capsule 300 mg PO BID 4 days #8 caps 04/11/23 [Rx Last Taken Unknown] ferrous sulfate 325 mg (65 mg iron) tablet,delayed release mg PO 05/24/23 [History Last Taken Unknown] Allergy/AdvReac Type Severity Reaction Status Date / Time hydrocodone [From Vicodin] Allergy Other Verified 05/24/23 14:53 strawberry Allergy Hives Verified 05/24/23 14:53 venom-honey bee Allergy Anaphylaxis Verified 05/24/23 14:53 [bee venom (honey bee)] adhesive tape AdvReac Rash Verified 05/24/23 14:53 atorvastatin AdvReac PT UNSURE Verified 05/24/23 14:53 OF REACTION montelukast AdvReac PT UNSURE Verified 05/24/23 14:53 OF REACTION Family History Father CAD (coronary artery disease) Brother Diabetes Mother Heart disease Surgical History Aortic valve replaced History of aortic valve replacement with bioprosthetic valve (01/18/11) History of hip surgery (08/2019) History of knee replacement History of left heart catheterization (01/05/11) History of tonsillectomy History of total left hip arthroplasty History of total left hip replacement History of umbilical hernia repair Social History household members: none Smoking Status: Never smoker alcohol intake: never substance use type: does not use ROS ROS ED Review of Systems ROS Unobtainable: due to mental condition and due to mental status EXAM Physical Exam Const Vital Signs: 05/24/23 14:47 05/24/23 14:53 05/24/23 16:18 Temperature 96.6 F L Temperature Source Temporal Pulse Rate 126 H 128 H Respiratory Rate 13 16 Respiratory Effort Normal Respiratory Pattern Normal Blood Pressure 114/88 H 131/95 H Blood Pressure Mean 96 107 Pulse Ox 95 99 Oxygen Delivery Method Room Air Room Air 05/24/23 17:04 Temperature Temperature Source Pulse Rate 130 H Respiratory Rate 12 Respiratory Effort Respiratory Pattern Blood Pressure 142/109 H Blood Pressure Mean 120 Pulse Ox 96 Oxygen Delivery Method Room Air Positive well nourished General Appearance ED: NAD; Negative for pallor HEENT Reports moist mucous membranes Eyes PERRL and EOMs intact bilaterally General Eye ED: Negative for pale conjunctiva Resp normal respiratory effort and clear to auscultation bilaterally Auscultation: Negative for rales, rhonchi or wheezes Cardio regular rate and regular rhythm GI normal to inspection, nondistended, normoactive bowel sounds Extremity normal to inspection Neuro oriented x3 and CN's II-XII intact bilaterally Sensorium / Orientation: alert Psych mental status grossly normal Skin no rashes or lesions noted General Skin Exam: Negative for jaundice or pallor MDM MDM MDM Narrative Medical decision making narrative: Patient presenting with weakness. Initially had no family with him. He was unable to give a history. Report was that they were concerned for stroke as the patient was not able to talk for short time. This is the only history I had before his family arrived. Patient is awake and alert and in no distress. Slightly tachycardic but otherwise well-appearing. He is not able to answer many questions. Reviewed the medical history. Differential includes stroke, intracranial hemorrhage, spine fracture, compression, dehydration, anemia, electrolyte abnormality, ACS, CHF, COVID, influenza, RSV, UTI, dysrhythmia, hepatic encephalopathy. CBC will be obtained to assess with blood cell count, hemoglobin, platelets. CMP to assess liver function, renal function, electrolytes, glucose. High-sensitivity troponin and EKG to assess for ischemia. BNP to assess for CHF. Ammonia to assess for hyperammonemia. Chest pain rule out pneumonia or CHF. COVID, influenza, RSV will be obtained. Patient was given 500 cc of normal saline. CBC shows normal white blood cell count of 4.9. Hemoglobin 10.7 at baseline. Platelets low at 58 also at baseline.. Creatinine 1.19. Electrolytes are normal. LFTs unremarkable. High-sensitivity troponin is 24. BNP 104.6. EKG on my interpretation shows sinus tachycardia at a ventricular rate of 129 bpm. Chest x-ray shows blunting of the right costophrenic angle on my interpretation. There does appear to be infiltrate versus atelectasis in the lower lobes bilaterally however the patient is not hypoxic, tachypneic. He has no leukocytosis. CT brain was negative. I had a long discussion with the family regarding his care. They still expressed concern that he might of had a stroke so we discussed admitting him for stroke workup. They had discussed with me that the patient has a significant history of liver cancer for which she has been evaluated has cancer specialist (Dr. Dahl). They have a follow-up MRI on Monday to reevaluate his liver. I counseled him that his liver enzymes are normal. His hemoglobin is normal. I think that if he came in for a stroke workup that he would still be able to make his outpatient appointments. His ammonia level was slightly high today at 34 with a cutoff of 32 was normal. Patient was discussed with hospitalist for admission. Impression: 1. TIA 2. Altered mental status 3. Elevated ammonia level 4. Debility Lab Data Attestation: I reviewed the patient's lab results. Labs: Laboratory Results - last 24 hr 05/24/23 15:15 WBC 4.9 RBC 3.26 L Hgb 10.7 L Hct 32.7 L MCV 100.3 H MCH 32.8 H MCHC 32.7 RDW Std Deviation 61.5 H RDW Coeff of Raina 16.9 H Plt Count 58 L MPV 11.9 Immature Gran % (Auto) 0.200 Neut % (Auto) 87.8 H Lymph % (Auto) 5.1 L [place] % (Auto) 5.9 Eos % (Auto) 0.8 Baso % (Auto) 0.2 Absolute Neuts (auto) 4.3 Absolute Lymphs (auto) 0.25 L Nucleated RBC % 0 Sodium 140 Potassium 3.8 Chloride 110 H Carbon Dioxide 29.0 Anion Gap 1 L BUN 40 H Creatinine 1.19 Estim Creat Clear Calc 57.96 Est GFR (MDRD) Af Amer 75 Est GFR (MDRD) Non-Af 62 BUN/Creatinine Ratio 33.6 H Glucose 119 H Calcium 12.5 H Total Bilirubin 0.80 Direct Bilirubin 0.30 AST 36 ALT 29 Alkaline Phosphatase 156 H Ammonia 34.0 H Troponin I High Sens 24 B-Natriuretic Peptide 104.6 H Total Protein 5.9 L Albumin 2.3 L Globulin 3.6 Albumin/Globulin Ratio 0.6 L Radiography Diagnostic Testing: Clinical Impression(s) from Imaging Studies Chest X-Ray 05/24/23 15:22 IMPRESSION: Blunting of the right costophrenic angle with bibasilar atelectasis and/or infiltrates as well as increased markings in the right upper lobe abutting the right minor fissure. Follow-up recommended. Electronically Signed: Gary Barreto MD at 15:35 EST , Brain CT 05/24/23 15:25 IMPRESSION: Chronic involutional changes of the brain. Electronically Signed: Gary Barreto MD at 15:43 EST , Discharge Plan Disposition Disposition: Acute Care [facility] Discharge Date/Time: 05/24/23 17:49
--- NOTE | 2023-05-24 17:38 | HP.PCM.HOS_ITS ---
HPI - General General Date of Admission: 05/24/23 Date of Service: 05/24/23 Chief Complaint: LLE weakness and change in mental status HPI Narrative FRANCISCO MACK, is a 83-year-old male history of cirrhosis, liver cancer, GERD, pafib, anemia, gout CVA presented to [facility] ED 05/24/2023 from assisted living for altered mental status. Reportedly he has not been himself since Monday and at that time had been having some difficulty talking and at times slurred speech. No recent falls but daughter noted some contracture of right fingers on right hand but was able to open hand in ED without significant difficulty. Has been having difficulty using his left leg however. Family was concerned for stroke with patient due to his left leg weakness and not being able to talk for a period of time earlier. CT brain in ED negative, ammonia 34, patiently mildly tachycardic. Lab workup otherwise similar to patient's baselin e/fairly benign. Given there is still concern patient may have had recent stroke hospitalist contacted for admission for stroke rule out. Patient evaluated at bedside with family present who provided most of the history. Reportedly patient has been at [facility] and had been doing fairly well and was a 1 assist and his daughter saw him on and he was not having any symptoms or changes in mental status, she saw them on Monday and said he was slow to answer and thought his speech may be slightly slurred but he was evaluated and it did not seem that he had a stroke so plan was to proceed with him being transferred to [facility]. When he was evaluated there today he was not using his left leg at all and required multiple people to assist him which prompted patient coming to the ED. Reportedly his left leg chronically does not work as well as his right but he usually is able to use it somewhat and this level of dysfunction is not common for him. Also in ED complaining of some left-sided rib pain, was here in March with pneumonia and has had some cough residual since that time. Additional concern that patient has his hands clenched and holds them like that. Family at bedside report patient does seem slightly better but he is not back to baseline. [facility] Medical History (Updated 05/24/23 @ 17:[address] Sue Roman MD) Anemia Anemia in chronic kidney disease Anemia of chronic disease Aortic valve disorder Asthma Body mass index (BMI) 40.0-44.9, adult Chronic acquired lymphedema CKD (chronic kidney disease), stage III Depression Essential (primary) hypertension GERD (gastroesophageal reflux disease) Gout History of cerebrovascular accident History of splenomegaly Hyperlipemia Liver cancer Morbid obesity Multiple lung nodules New onset atrial flutter Non-alcoholic cirrhosis Nonobstructive atherosclerosis of coronary artery Nonrheumatic aortic (valve) stenosis OAB (overactive bladder) Obesity Obesity (BMI 30-39.9) DEMI treated with BiPAP Osteoarthritis Paroxysmal A-fib PCK (polycystic kidney disease) Peripheral neuropathy Polycystic kidney disease 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) Right bundle branch block (RBBB) Splenomegaly Thrombocytopenia Thrombocytopenia Urge incontinence Home Medications allopurinol 300 mg tablet 300 mg PO DAILY gout 04/12/16 [History Last Taken 04/07/19] fenofibrate nanocrystallized 48 mg tablet 48 mg PO DAILY cholesterol 04/12/16 [History Last Taken 04/07/19] magnesium oxide 400 mg (241.3 mg magnesium) tablet 400 mg PO DAILY supplement 04/12/16 [History Last Taken 04/07/19] vgaiwkvt-shx-yeywf acid 0.4 mg-lycopene 300 mcg-lutein 250 mcg tablet 1 ea PO DAILY vitamin 04/12/16 [History Last Taken 04/07/19] sertraline 100 mg tablet 50 mg PO QHS depression 09/05/19 [History Last Taken Unknown] aspirin 81 mg tablet,delayed release (Adult Aspirin Regimen) 81 mg PO DAILY 11/10/20 [History Last Taken Unknown] ferrous sulfate 325 mg (65 mg iron) tablet 325 mg PO BID 11/10/20 [History Last Taken Unknown] albuterol sulfate 90 mcg/actuation aerosol inhaler 2 puff inhalation Q6H PRN ASTHMA 05/25/21 [History Last Taken Unknown] fluticasone propionate 50 mcg/actuation nasal spray,suspension 1 spray intranasal DAILY 05/25/21 [History Last Taken Unknown] omeprazole 40 mg capsule,delayed release 40 mg PO DAILY 05/25/21 [History Last Taken Unknown] oxybutynin chloride 15 mg tablet,extended release 24 hr 30 mg PO DAILY 05/25/21 [History Last Taken Unknown] ascorbic acid (vitamin C) 500 mg capsule 500 mg PO DAILY 05/17/22 [History Last Taken Unknown] furosemide 20 mg tablet 20 mg PO Q OTHER DAY 05/17/22 [History Last Taken Unknown] nitroglycerin 0.4 mg sublingual tablet 0.4 mg sublingual Q5M PRN chest pain 05/17/22 [History Last Taken Unknown] lidocaine 5 % topical patch (Lidoderm) 1 patch topical DAILY #15 ea 09/11/22 [Rx Last Taken Unknown] cyanocobalamin (vitamin B-12) 5,000 mcg capsule 2,500 mcg PO DAILY 10/29/22 [History Last Taken Unknown] rifaximin 550 mg tablet (Xifaxan) 550 mg PO BID 10/29/22 [History Last Taken Unknown] diltiazem HCl 120 mg capsule,extended release 24 hr 120 mg PO DAILY #30 caps 12/07/22 [Rx Last Taken Unknown] metoprolol tartrate 25 mg tablet 25 mg PO BID #60 tabs 12/07/22 [Rx Last Taken Unknown] fluticasone furoate 200 mcg-vilanterol 25 mcg/dose inhalation powder (Breo Ellipta) 1 inh inhalation DAILY 04/06/23 [History Last Taken Unknown] cefdinir 300 mg capsule 300 mg PO BID 4 days #8 caps 04/11/23 [Rx Last Taken Unknown] ferrous sulfate 325 mg (65 mg iron) tablet,delayed release mg PO 05/24/23 [History Last Taken Unknown] Allergy/AdvReac Type Severity Reaction Status Date / Time hydrocodone [From Vicodin] Allergy Other Verified 05/24/23 14:53 strawberry Allergy Hives Verified 05/24/23 14:53 venom-honey bee Allergy Anaphylaxis Verified 05/24/23 14:53 [bee venom (honey bee)] adhesive tape AdvReac Rash Verified 05/24/23 14:53 atorvastatin AdvReac PT UNSURE Verified 05/24/23 14:53 OF REACTION montelukast AdvReac PT UNSURE Verified 05/24/23 14:53 OF REACTION Family History Father CAD (coronary artery disease) Brother Diabetes Mother Heart disease Surgical History Aortic valve replaced History of aortic valve replacement with bioprosthetic valve (01/18/11) History of hip surgery (08/2019) History of knee replacement History of left heart catheterization (01/05/11) History of tonsillectomy History of total left hip arthroplasty History of total left hip replacement History of umbilical hernia repair Social History household members: none Smoking Status: Never smoker alcohol intake: never substance use type: does not use ROS ROS Narrative General: Denies fever/chills HENT: Denies headache, denies stuffy nose, denies sore throat EYES: Denies changes in vision Resp: Has had persistent cough, possibly some shortness of breath Cardiac: Denies chest pain GI: Denies abdominal pain, denies changes in bowel, denies nausea/vomiting : Denies changes in urination Extremity: Chronic lower extremity swelling MSK: Chronic left lower extremity weakness but more so than usual and more so than right side Neuro: Denies any numbness/tingling Heme: Denies any bleeding or bruising Skin: Denies rashes Psychiatric: No complaints voiced Vital Signs Vital Signs Vital Signs: 05/24/23 14:47 05/24/23 14:53 05/24/23 16:18 Temperature 96.6 F L Temperature Source Temporal Pulse Rate 126 H 128 H Respiratory Rate 13 16 Respiratory Effort Normal Respiratory Pattern Normal Blood Pressure 114/88 H 131/95 H Blood Pressure Mean 96 107 Pulse Ox 95 99 Oxygen Delivery Method Room Air Room Air 05/24/23 17:04 Temperature Temperature Source Pulse Rate 130 H Respiratory Rate 12 Respiratory Effort Respiratory Pattern Blood Pressure 142/109 H Blood Pressure Mean 120 Pulse Ox 96 Oxygen Delivery Method Room Air Weight Weight: 112.2 kg Body Mass Index (BMI) 35.4 Physical Exam Narrative General: Alert, no apparent distress HEENT: Atraumatic, poor dentition Eyes: Anicteric, normal conjunctiva, extraocular movements intact, pupils equal Neck: Supple Respiratory: Transmitted upper airway sounds, somewhat diminished at the bases, normal respiratory effort Cardiovascular: Regular rhythm but tachycardic GI: Soft, nontender, no rebound, guarding, rigidity Extremities: Trace lower extremity edema with compression hose Musculoskeletal: Strength 5 out of 5 in right upper extremity, 5 out of 5 left upper extremity, 3 out of 5 right lower extremity, 1 out of 5 left lower extremity, reports pain under left armpit but this was not reproducible on my exam Neuro: No overt focal neurological deficits, patient does have both hands and fists and slightly contracted but opens them up on prompting Skin: No rashes appreciated Psych: Cooperative Results Lab / Micro Data 05/24/23 15:15 05/24/23 15:15 Labs: Laboratory Results - last 24 hr 05/24/23 15:15: WBC 4.9, RBC 3.26 L, Hgb 10.7 L, Hct 32.7 L, MCV 100.3 H, MCH 32.8 H, MCHC 32.7, RDW Std Deviation 61.5 H, RDW Coeff of Raina 16.9 H, Plt Count 58 L, MPV 11.9, Immature Gran % (Auto) 0.200, Neut % (Auto) 87.8 H, Lymph % (Auto) 5.1 L, [place] % (Auto) 5.9, Eos % (Auto) 0.8, Baso % (Auto) 0.2, Absolute Neuts (auto) 4.3, Absolute Lymphs (auto) 0.25 L, Nucleated RBC % 0, Sodium 140, Potassium 3.8, Chloride 110 H, Carbon Dioxide 29.0, Anion Gap 1 L, BUN 40 H, Creatinine 1.19, Estim Creat Clear Calc 57.96, Est GFR (MDRD) Af Amer 75, Est GFR (MDRD) Non-Af 62, BUN/Creatinine Ratio 33.6 H, Glucose 119 H, Calcium 12.5 H , Total Bilirubin 0.80, Direct Bilirubin 0.30, AST 36, ALT 29, Alkaline Phosphatase 156 H, Ammonia 34.0 H, Troponin I High Sens 24, B-Natriuretic Peptide 104.6 H, Total Protein 5.9 L, Albumin 2.3 L, Globulin 3.6, Albumin/Globulin Ratio 0.6 L Micro: Microbiology 05/24/23 15:15 Mucosa - Nose SARS-CoV-2, Influenza & RSV (PCR) - Final Imaging Radiology Impression Chest X-Ray 05/24/23 15:22 IMPRESSION: Blunting of the right costophrenic angle with bibasilar atelectasis and/or infiltrates as well as increased markings in the right upper lobe abutting the right minor fissure. Follow-up recommended. Electronically Signed: Gary Barreto MD at 15:35 EST , Brain CT 05/24/23 15:25 IMPRESSION: Chronic involutional changes of the brain. Electronically Signed: Gary Barreto MD at 15:43 EST , Assessment & Plan Assessment/Plan (1) Neurologic abnormality: (2) Gout: (3) GERD (gastroesophageal reflux disease): (4) Anemia of chronic disease: (5) Cirrhosis: (6) Obstructive sleep apnea on CPAP: PLAN: Plan #AMS and weakness, concern for CVA -Left lower extremity weakness at baseline but extremity almost nonfunctional and patient's speech and responsiveness not back to baseline -Admit to tele -CT head w/ chronic changes in ED -CTA head and neck ordered -MRI ordered -NIH q4hr -Listed allergy to statin, pt w/ thrombocytopenia so pt not on antiplatelet or AC -Given suspicion is not significantly high for CVA as other etiology may be because we will hold on empiric antiplatelet due to risk of bleeding and adverse events with his thrombocytopenia -Echo w/ bubble study -PT/OT/Speech eval -Hold BP medications to allow for permissive hypertension for 24 hours unless SBP greater than 220 or DBP greater than 120 or until stroke is ruled out -Ammonia minimally elevated -Awaiting UA as patient could have UTI contributing # Hypercalcemia -Could be contributor to weakness and altered mental status -?Secondary to malignancy -Tends to be elevated though has been slightly higher recently than previous -Very gentle IV fluids given patient's propensity for fluid overload, can treat more aggressively pending treatment response and findings # Pancytopenia -Patient routinely pancytopenic -White blood cell count 4.9, lower limits of normal today though usually is below the 4.4 threshold -Appears to be at baseline -Follow-up with oncology on outpatient basis #Liver cancer and cirrhosis -Follows with Dr. Dahl -Has follow-up MRI Monday to reevaluate his liver #pafib -Admitted to [facility] in March and was found to have paroxysmal A-fib with RVR -On rate control but not on anticoagulation -Cardiology had evaluated and patient was back in normal sinus rhythm and given fall risk they were hesitant to start anticoagulation -Continue rate control #RV dysfunction/AV bioprosthetic valve -Echo 10/2022 with EF 60% and indeterminate diastolic function however patient had severely dilated right ventricle with global right ventricular dysfunction and severe mitral annular calcification with RVSP of 44 -Daily weights, I's and O's -Giving very gentle hydration # Depression and anxiety -Continue sertraline #GERD -Continue PPI #Gout -Continue allppurinol #DEMI -Continue bipap #DVT ppx: SCDs Sue Roman MD Charges/Coding Visit Charges Inpatient E&M: 56894 Init Hosp L2
--- NOTE | 2023-05-24 17:48 | ED.RN ---
attempted to call report to [facility] at [phone] about patient update regarding admission, no answers for both attempts.
--- NOTE | 2023-05-24 17:54 | CT_ITS ---
INDICATION: Neuro deficit, acute, stroke suspected EXAMINATION: CTA CAROTIDS AND BRAIN - CTA Head and Neck W/ Contrast Injection (and W/O Contrast Images if performed) TECHNIQUE: Routine CTA of the head and neck was performed with post processing of the angiographic images for volumetric reconstructions. In addition, images were obtained of the [place]. Nascet criteria using the distal ICAs for comparison were used for evaluation of stenoses. 3D reconstructions were reviewed. A radiation dose optimization technique was used for this scan. IV Contrast dosage and agent: 100 cc [id number] COMPARISON: Noncontrast head CT same date FINDINGS: --NECK: AORTIC ARCH AND BRANCHES: Vessel origins patent. RIGHT CCA: No occlusion, significant stenosis or dissection. RIGHT ICA: No occlusion, significant stenosis or dissection. LEFT CCA: No occlusion, significant stenosis or dissection. LEFT ICA: No occlusion, significant stenosis or dissection. RIGHT VERTEBRAL ARTERY: No occlusion, significant stenosis or dissection. LEFT VERTEBRAL ARTERY: No occlusion, significant stenosis or dissection. NECK SOFT TISSUES: Unremarkable. LUNG APICES: Right upper lobe consolidation. BONES: Degenerative changes. --HEAD: --Anterior circulation: ICAs: No significant stenosis at the intracranial/visualized segments. ACAs: No significant stenosis at the visualized segments. ACOM: Present. MCAs: No significant stenosis at the visualized segments. --Posterior circulation: PCOMs: Not seen. legal arbitrator: No significant stenosis at the visualized segments. BASILAR ARTERY: No significant stenosis. VERTEBRAL ARTERIES: No significant stenosis at the intradural/visualized segments. No evidence of intracranial aneurysm or vascular malformation. CT/CTA Head AND Neck W/ Contrast IMPRESSION: No significant major vessel vaso-occlusive disease in the head or neck. Right upper lobe consolidation. Electronically Signed: Michael Lion MD at 20:14 EST ,
--- NOTE | 2023-05-24 17:54 | ECHOCS_ITS ---
Reason For Study: TIA/CVA Procedure This was a 2D Doppler, Color Flow transthoracic echocardiogram. The study was technically difficult. Exam performed portable in patient room. Left Ventricle Normal size and thickness. The left ventricular ejection fraction is 55 %. Right Ventricle Moderately dilated right ventricle. Mild to moderate global right ventricular systolic dysfunction. Atria There is severe biatrial dilatation. Bubble contrast study is negative for PFO/ASD. Mitral Valve Severe mitral annular calcification. Tricuspid Valve Mild tricuspid valve insufficiency. Aortic Valve The aortic valve is not well visualized. 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 Pulmonic Valve The pulmonic valve is not well visualized. Great Vessels The aortic root is not well visualized. Pericardium/Pleural No pericardial effusion. Medication Performed a rapid injection of agitated mix of 9 cc saline and 1cc air to assess for atrial septal defect. Diluted definity 2ml given slow IV push to enhance endocardial definition. MMode/2D Measurements & Calculations LVIDd: 4.8 cm IVSd: 0.82 cm LVOT diam: 2.0 cm LVIDs: 3.1 cm LVPWd: 0.93 cm RVDd: 4.0 cm FS: 36.2 % LVOT area: 3.3 cm2 Ao root diam: 3.3 cm LAV(MOD-bp): 81.1 ml LVAd ap4: 34.4 cm2 LAV(MOD-bp) Indexed: 36.0 ml/m2 LVLd ap4: 7.9 cm LAV(MOD-sp2): 57.9 ml EDV(MOD-sp4): 123.3 ml LAV(MOD-sp4): 107.7 ml EDV(sp4-el): 127.4 ml LVAs ap4: 21.4 cm2 LVLs ap4: 6.8 cm ESV(MOD-sp4): 56.4 ml ESV(sp4-el): 57.1 ml EF(MOD-sp4): 54.2 % EF(sp4-el): 55.1 % LVAd ap2: 17.3 cm2 SV(MOD-sp4): 66.9 ml SV(MOD-sp2): 22.6 ml LVLd ap2: 6.9 cm EDV(MOD-sp2): 35.6 ml EDV(sp2-el): 36.6 ml LVAs ap2: 10.0 cm2 LVLs ap2: 6.2 cm ESV(MOD-sp2): 13.1 ml ESV(sp2-el): 13.6 ml EF(MOD-sp2): 63.4 % SV(sp4-el): 70.2 ml LA dimension(2D): 5.0 cm LA A4 area: 30.3 cm2 RA A4 area: 29.8 cm2 Doppler Measurements & Calculations MV E max will: 124.5 cm/sec Lat Peak E' Will: 9.3 cm/sec Med Peak E' Will: 9.9 cm/sec E/E' lat: 13.4 E/E' med: 12.6 MV V2 max: 184.4 cm/sec MV P1/2t max will: 179.8 cm/sec Ao V2 max: 184.0 cm/sec MV max P.6 mmHg MV P1/2t: 31.5 msec Ao max P.5 mmHg MV V2 mean: 109.9 cm/sec Ao V2 mean: 119.5 cm/sec MV mean P.9 mmHg MV dec slope: 1674 cm/sec2 Ao mean P.7 mmHg MV V2 VTI: 21.9 cm MVA(P1/2t): 7.0 cm2 Ao V2 VTI: 35.5 cm AV (velocity ratio): 0.32 MVA(VTI): 1.7 cm2 PATRIC(I,D): 1.0 cm2 PATRIC(V,D): 1.3 cm2 LV V1 max: 71.8 cm/sec SV(LVOT): 37.0 ml PA V2 max: 66.9 cm/sec LV V1 max P.1 mmHg LV V1 mean P.1 mmHg LV V1 mean: 47.7 cm/sec LV V1 VTI: 11.2 cm TR max will: 245.3 cm/sec TR max P.1 mmHg ECHO/Echo Complete W/ Contrast Interpretation Summary The left ventricular ejection fraction is 55 %. Moderately dilated right ventricle. Mild to moderate global right ventricular systolic dysfunction. There is severe biatrial dilatation. Mild tricuspid valve insufficiency. 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 Severe mitral annular calcification that extends into the LVOT as well. Bubble contrast study is negative for PFO/ASD. Technically difficult study with suboptimal images. Consider cardiac MRI for fu rther evaluation if clinically indicated. Ordering Physician: Sue Roman Referring Physician: Ricky Bradley M.D. Performed By: Estrella Jackson RDCS
--- NOTE | 2023-05-24 17:54 | MRI_ITS ---
STUDY: MRI BRAIN WITHOUT CONTRAST REASON FOR EXAM: Male, 83 years old. cva r/o TECHNIQUE: Standardized multiplanar fat and water weighted pulse sequences were obtained. COMPARISON: Noncontrast CT brain and CTA brain from today. FINDINGS: There is moderate cerebral atrophy with widening of the extra-axial spaces and ventricular dilatation. Normal white matter tracts of the supratentorial brain. There is no evidence for recent intracranial ischemia or other cause of cytotoxic edema on diffusion weighted imaging (DWI). Normal bilateral basal ganglia. Normal thalami. There is no extra-axial fluid accumulation. Normal flow voids within the major intracranial circulation suggesting patency by spin echo criteria. Normal sella turcica, pituitary gland, infundibular stalk, optic chiasm and hypothalamus. Normal tectal plate and pineal gland. Normal midbrain, latesha and medulla. Normal cerebellum. Normal basal cisterns. Normal bilateral temporal bones. Normal bilateral internal auditory canals. No demonstrated orbital abnormality, within the constraints of a routine brain study. Normal visualized paranasal sinuses. Normal calvarium and skull base. Normal visualized soft tissue structures. Normal visualized upper cervical spine. MRI/Brain without Contrast IMPRESSION: Involutional changes of the brain, as described above. Electronically Signed: Bubba Mendoza MD at 21:02 [facility] ,
[2023-05-24] MEDS: LORazepam 0.5 MG Tablet PO (18:36)
--- OUTSIDE RECORDS SUMMARY | 2023-05-24 19:15 | XMS RPT_ITS | CCD ---
Author Name Unknown Address [address] [facility] [address] [place] [address] Organization [facility] Care Team Providers Care Cabinet Maker Name Role Phone LUIS CARLOS, ZENON E [...] Unavailable Fermin PT, Leda Unavailable Kirk NUNEZ, Rikcy Willis Unavailable Fermin PT, Leda Unavailable Ricky Bradley MD Primary Care Provider Kirk NUNEZ, Ricky Willis Unavailable Kirk NUNEZ, Ricky Willis Unavailable Fermin PT, Leda Unavailable JESSICA GARCIA III Referring Unavailable RADHA BARKER Attending Unavailable RICKY BRADLEY Referring Unavailable RICKY BRADLEY Primary Care Unavailable Cleve SCHAEFER, Kai Unavailable Ingrid Morales PA-C Unavailable Fermin PT, Leda Unavailable BRADLEY, MAURI Primary Care Unavailable ELVERHANS, BUBBA Attending Unavailable BRADLEY, MAURI Primary Care Unavailable STEPHANS, BUBBA Attending Unavailable [facility], [facility] Primary Care Unavailable STEPHANS, BUBBA Attending Unavailable ISAACDAMON WEISS Attending Unavailable BRADLEY, [facility] Primary Care Unavailable KAI POON Referring Unavailable BRADLEY, [facility] Primary Care Unavailable STEPHANS, BUBBA Attending Unavailable BRADLEY, [facility] Primary Care Unavailable BRADLEY, [facility] Primary Care Unavailable LINGANNA, HALEY Plummer Attending Unavailable BRADLEY, [facility] Primary Care Unavailable FRANCISCO, ANGIE Monroy Attending Unavailable SINGH, ANGIE Monroy Admitting Unavailable BRADLEY, [facility] Primary Care Unavailable LINGANNA, HALEY Plummer Referring Unavailable LINGANNA, HALEY Plummer Attending Unavailable MASCI, YUNIEL Garrison Referring Unavailable BRADLEY, [facility] Primary Care Unavailable MASCI, YUNIEL Garrison Referring Unavailable BRADLEY, [facility] Primary Care Unavailable MASCI, YUNIEL Garrison Referring Unavailable BRADLEY, [facility] Primary Care Unavailable MASCI, YUNIEL Meli Referring Unavailable BRADLEY, [facility] Primary Care Unavailable BRADLEY, [facility] Primary Care Unavailable STEPHANS, BUBBA Referring Unavailable MASCI, YUNIEL Meli Referring Unavailable BRADLEY, [facility] Primary Care Unavailable MASCI, YUNIEL A Referring Unavailable BRADLEY, [facility] Primary Care Unavailable MASCI, YUNIEL A Referring Unavailable BRADLEY, [facility] Primary Care Unavailable BRADLEY, [facility] Primary Care Unavailable BRADLEY, [facility] Primary Care Unavailable MASCI, YUNIEL A Referring Unavailable BRADLEY, [facility] Primary Care Unavailable MASCI, YUNIEL A Referring Unavailable MASCI, YUNIEL Meli Attending Unavailable BRADLEY, [facility] Primary Care Unavailable BRADLEY, [facility] Primary Care Unavailable BRADLEY, [facility] Primary Care Unavailable STEPHANS, BUBBA Referring Unavailable BRADLEY, [facility] Primary Care Unavailable BRADLEY, MAURI Referring Unavailable BRADLEY, MAURI Attending Unavailable MASCI, YUNIEL A Referring Unavailable BRADLEY, [facility] Primary Care Unavailable MASCI, YUNIEL A Attending Unavailable MASCI, YUNIEL A Referring Unavailable BRADLEY, [facility] Primary Care Unavailable MASCI, YUNIEL A Referring Unavailable BRADLEY, [facility] Primary Care Unavailable MASCI, YUNIEL A Referring Unavailable BRADLEY, MAURI Primary Care Unavailable BRADLEY, MAURI Primary Care Unavailable CLEVE, KAI Referring Unavailable BRADLEY, MA[facility] Primary Care Unavailable CLEVE, KAI Referring Unavailable BRADLEY, [facility] Primary Care Unavailable BUBBA SYKES Attending Unavailable MASCI, YUNIEL A Referring Unavailable BRADLEY, MA[facility] Primary Care Unavailable BRADLEY, MAURI Primary Care Unavailable BRADLEY, MAURI Primary Care Unavailable BRADLEY, MAURI Attending Unavailable BRADLEY, MA[facility] Primary Care Unavailable CLEVE, KAI Referring Unavailable BRADLEY, MA[facility] Primary Care Unavailable CLEVE, KAI Referring Unavailable BRADLEY, MA[facility] Primary Care Unavailable CLEVE, KAI Referring Unavailable Allergies Allergy Classification Reported Allergen(s) Allergy Type Date of Onset Reaction(s) Facility (20 sources) acetaminophen; Translations: [ACETAMINOPHEN] Drug Allergy 7 Other: See Comments [facility] Rep[facility] (20 sources) atorvastatin; Translations: [ATORVASTATIN CALCIUM] Drug Allergy 5 Itching [facility] Rep[facility] (20 sources) Bee; Translations: [BEES] Propensity to adverse reactions (disorder) 5 Anaphylaxis [facility] (20 sources) HYDROcodone; Translations: [HYDROCODONE] Drug Allergy 7 GI Upset [facility] Rep[facility] (20 sources) montelukast; Translations: [MONTELUKAST SODIUM] Drug Allergy 3 Itching [facility] Rep[facility] (20 sources) [place]; Translations: [STRAWBERRIES] Propensity to adverse reactions to food (disorder) 1 Hives [facility] Medications Current Medications Medication Drug Class(es) [...] Drug Class(es) Dates Sig (Normalized) Sig (Original) [id number] 200 actuat albuterol 0.09 mg/actuat metered dose [...] 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 Cardiac dysrhythmias (20 sources) Atrial flutter; Translations: [Unspecified atrial flutter] [...] disease (20 sources) Atherosclerotic heart disease of [place] coronary artery without angina pectoris; Translations: [Coronary [...] Neoplasms of unspecified nature or uncertain behavior (8 sources) Monoclonal gammopathy (clinical); Translations: [Monoclonal gammopathy] Onset: 3 Chronic Other and unspecified benign neoplasm (1 [...] Chronic Other nutritional; endocrine; and metabolic disorders (18 sources) Obese class I; Translations: [Obesity, unspecified] [...] of lower extremity; Translations: [Localized edema] Episodic Residual codes; unclassified (1 source) Treatment not available; Translations: [Procedure and treatment not carried out for other reasons] 04-06-2023 Episodic Skin and subcutaneous tissue infections (2 [...] Nutritional anemia, unspecified; Translations: [Macrocytic anemia] Onset: 12-09-2022 Episodic Diabetes mellitus without complication (20 sources) [...] not elsewhere classified; Translations: [Liver mass] Onset: 06-10-2022 Episodic Other nervous system disorders (20 sources) [...] 02-02-2023 14:09-0400 Body height 177.8 cm Haley Valiente MD Work Phone: [facility] 02-02-2023 14:09-0400 Body temperature 97.81 [degF] Haley Valiente MD Work Phone: [facility] 02-02-2023 14:09-0400 Body weight 111.86 kg Haley Valiente MD Work Phone: [facility] 02-02-2023 14:09-0400 Diastolic blood pressure 89 mm[Hg] Haley Valiente MD Work Phone: [facility] 02-02-2023 14:09-0400 Heart rate 129 /min Haley Valiente MD Work Phone: [facility] 02-02-2023 14:09-0400 SaO2% (BldA) [Mass fraction] 98 % Haley Valiente MD Work Phone: [facility] 02-02-2023 14:09-0400 Systolic blood pressure 118 mm[Hg] Haley Valiente MD Work Phone: [facility] 01-02-2023 09:44-0400 Body temperature 97.5 [degF] Treatment Wstr Work Phone: [facility] 01-02-2023 09:44-0400 Diastolic blood pressure 79 mm[Hg] Treatment Wstr Work Phone: [facility] 01-02-2023 09:44-0400 Heart rate 100 /min Treatment Wstr Work Phone: [facility] 01-02-2023 09:44-0400 Systolic blood pressure 131 mm[Hg] Treatment Wstr Work Phone: [facility] 12-28-2022 11:50-0400 Body temperature 97 [degF] Treatment Wstr Work Phone: [facility] 12-28-2022 11:50-0400 Diastolic blood pressure 77 mm[Hg] Treatment Wstr Work Phone: [facility] 12-28-2022 11:50-0400 Heart rate 70 /min Treatment Wstr Work Phone: [facility] 12-28-2022 11:50-0400 Systolic blood pressure 127 mm[Hg] Treatment Wstr Work Phone: [facility] 12-26-2022 09:49-0400 Body temperature 97.9 [degF] Treatment Wstr Work Phone: [facility] 12-26-2022 09:49-0400 Diastolic blood pressure 89 mm[Hg] Treatment Wstr Work Phone: [facility] 12-26-2022 09:49-0400 Heart rate 71 /min Treatment Wstr Work Phone: [facility] 12-26-2022 09:49-0400 Systolic blood pressure 133 mm[Hg] Treatment Wstr Work Phone: [facility] 12-23-2022 09:57-0400 Body temperature 98.6 [degF] Treatment Wstr Work Phone: [facility] 12-23-2022 09:57-0400 Diastolic blood pressure 65 mm[Hg] Treatment Wstr Work Phone: [facility] 12-23-2022 09:57-0400 Heart rate 65 /min Treatment Wstr Work Phone: [facility] 12-23-2022 09:57-0400 SaO2% (BldA) [Mass fraction] 95 % Treatment Wstr Work Phone: [facility] 12-23-2022 09:57-0400 Systolic blood pressure 108 mm[Hg] Treatment Wstr Work Phone: [facility] 12-21-2022 09:45-0400 Body temperature 97.9 [degF] Treatment Wstr Work Phone: [facility] 12-21-2022 09:45-0400 Diastolic blood pressure 68 mm[Hg] Treatment Wstr Work Phone: [facility] 12-21-2022 09:45-0400 Heart rate 60 /min Treatment Wstr Work Phone: [facility] 12-21-2022 09:45-0400 SaO2% (BldA) [Mass fraction] 98 % Treatment Wstr Work Phone: [facility] 12-21-2022 09:45-0400 Systolic blood pressure 107 mm[Hg] Treatment Wstr Work Phone: [facility] 12-09-2022 15:37-0400 Body height 171 cm Yuniel Masci DO Work Phone: [facility] 12-09-2022 15:37-0400 Body temperature 97.9 [degF] Yuniel Masci DO Work Phone: [facility] 12-09-2022 15:37-0400 Body weight 109.77 kg Yuniel Masci DO Work Phone: [facility] 12-09-2022 15:37-0400 Diastolic blood pressure 63 mm[Hg] Yuniel Masci DO Work Phone: [facility] 12-09-2022 15:37-0400 Heart rate 70 /min Yuniel Masci DO Work Phone: [facility] 12-09-2022 15:37-0400 SaO2% (BldA) [Mass fraction] 100 % Yuniel Masci DO Work Phone: [facility] 12-09-2022 15:37-0400 Systolic blood pressure 108 mm[Hg] Yuniel Masci DO Work Phone: [facility] 08-19-2022 14:23-0400 Body temperature 97.9 [degF] Nurse Main Work Phone: [facility] 08-19-2022 14:23-0400 Body weight 107.32 kg Nurse Main Work Phone: [facility] 08-19-2022 14:23-0400 Diastolic blood pressure 65 mm[Hg] Nurse Main Work Phone: [facility] 08-19-2022 14:23-0400 Heart rate 75 /min Nurse Main Work Phone: [facility] 08-19-2022 14:23-0400 Respiratory rate 16 /min Nurse Main Work Phone: [facility] 08-19-2022 14:23-0400 SaO2% (BldA) [Mass fraction] 96 % Nurse Main Work Phone: [facility] 08-19-2022 14:23-0400 Systolic blood pressure 111 mm[Hg] Nurse Main Work Phone: [facility] 08-10-2022 09:03-0400 Body height 177.8 cm Haley Valiente MD Work Phone: [facility] 08-10-2022 09:03-0400 Body temperature 97.3 [degF] Haley Valiente MD Work Phone: [facility] 08-10-2022 09:03-0400 Body weight 111.95 kg Haley Valiente MD Work Phone: [facility] 08-10-2022 09:03-0400 Diastolic blood pressure 60 mm[Hg] Haley Valiente MD Work Phone: [facility] 08-10-2022 09:03-0400 Heart rate 77 /min Haley Valiente MD Work Phone: [facility] 08-10-2022 09:03-0400 SaO2% (BldA) [Mass fraction] 98 % Haley Valiente MD Work Phone: [facility] 08-10-2022 09:03-0400 Systolic blood pressure 113 mm[Hg] Haley Valiente MD Work Phone: [facility] 08-03-2022 10:11-0400 Body weight 108.86 kg Bubba Sykes MD Work Phone: [facility] 08-03-2022 10:11-0400 Diastolic blood pressure 58 mm[Hg] Bubba Sykes MD Work Phone: [facility] 08-03-2022 10:11-0400 Heart rate 70 /min Bubba Sykes MD Work Phone: [facility] 08-03-2022 10:11-0400 Respiratory rate 18 /min Bubba Sykes MD Work Phone: [facility] 08-03-2022 10:11-0400 SaO2% (BldA) [Mass fraction] 89 % Bubba Sykes MD Work Phone: [facility] 08-03-2022 10:11-0400 Systolic blood pressure 106 mm[Hg] Bubba Sykes MD Work Phone: [facility] 07-04-2022 18:59-0400 Body weight 109.32 kg Ricky Bradley MD Work Phone: [facility] 07-04-2022 18:59-0400 Diastolic blood pressure 72 mm[Hg] Ricky Bradley MD Work Phone: [facility] 07-04-2022 18:59-0400 Heart rate 72 /min Ricky Bradley MD Work Phone: [facility] 07-04-2022 18:59-0400 SaO2% (BldA) [Mass fraction] 100 % Ricky Bradley MD Work Phone: [facility] 07-04-2022 18:59-0400 Systolic blood pressure 134 mm[Hg] Ricky Bradley MD Work Phone: [facility] 06-24-2022 14:21-0500 Body temperature 98.01 [degF] Bubba Son MD Work Phone: [facility] 06-24-2022 14:21-0500 Body weight 108.23 kg Bubba Son MD Work Phone: [facility] 06-24-2022 14:21-0500 Diastolic blood pressure 82 mm[Hg] Bubba Son MD Work Phone: [facility] 06-24-2022 14:21-0500 Heart rate 92 /min Bubba Son MD Work Phone: [facility] 06-24-2022 14:21-0500 Respiratory rate 18 /min Bubba Son MD Work Phone: [facility] 06-24-2022 14:21-0500 SaO2% (BldA) [Mass fraction] 98 % Bubba Son MD Work Phone: [facility] 06-24-2022 14:21-0500 Systolic blood pressure 132 mm[Hg] Bubba Son MD Work Phone: [facility] 06-10-2022 09:18-0500 Body temperature 97.3 [degF] Yuniel Masci DO Work Phone: [facility] 06-10-2022 09:18-0500 Body weight 108.18 kg Yuniel Masci DO Work Phone: [facility] 06-10-2022 09:18-0500 Diastolic blood pressure 72 mm[Hg] Yuniel Masci DO Work Phone: [facility] 06-10-2022 09:18-0500 Heart rate 66 /min Yuniel Masci DO Work Phone: [facility] 06-10-2022 09:18-0500 SaO2% (BldA) [Mass fraction] 99 % Yuniel Masci DO Work Phone: [facility] 06-10-2022 09:18-0500 Systolic blood pressure 122 mm[Hg] Yuniel Masci DO Work Phone: [facility] 06-01-2022 15:16-0500 Body temperature 98.2 [degF] Treatment Wstr Work Phone: [facility] 06-01-2022 15:16-0500 Diastolic blood pressure 92 mm[Hg] Treatment Wstr Work Phone: [facility] 06-01-2022 15:16-0500 Heart rate 75 /min Treatment Wstr Work Phone: [facility] 06-01-2022 15:16-0500 Respiratory rate 16 /min Treatment Wstr Work Phone: [facility] 06-01-2022 15:16-0500 SaO2% (BldA) [Mass fraction] 100 % Treatment Wstr Work Phone: [facility] 06-01-2022 15:16-0500 Systolic blood pressure 129 mm[Hg] Treatment Wstr Work Phone: [facility] 05-30-2022 15:00-0500 Body temperature 96.91 [degF] Treatment Wstr Work Phone: [facility] 05-30-2022 15:00-0500 Diastolic blood pressure 74 mm[Hg] Treatment Wstr Work Phone: [facility] 05-30-2022 15:00-0500 Heart rate 73 /min Treatment Wstr Work Phone: [facility] 05-30-2022 15:00-0500 Respiratory rate 18 /min Treatment Wstr Work Phone: [facility] 05-30-2022 15:00-0500 SaO2% (BldA) [Mass fraction] 100 % Treatment Wstr Work Phone: [facility] 05-30-2022 15:00-0500 Systolic blood pressure 131 mm[Hg] Treatment Wstr Work Phone: [facility] 05-27-2022 14:37-0500 Body temperature 97.2 [degF] Treatment Wstr Work Phone: [facility] 05-27-2022 14:37-0500 Diastolic blood pressure 74 mm[Hg] Treatment Wstr Work Phone: [facility] 05-27-2022 14:37-0500 Heart rate 91 /min Treatment Wstr Work Phone: [facility] 05-27-2022 14:37-0500 Respiratory rate 16 /min Treatment Wstr Work Phone: [facility] 05-27-2022 14:37-0500 SaO2% (BldA) [Mass fraction] 98 % Treatment Wstr Work Phone: [facility] 05-27-2022 14:37-0500 Systolic blood pressure 136 mm[Hg] Treatment Wstr Work Phone: [facility] 05-25-2022 15:01-0500 Body temperature 97.59 [degF] Treatment Wstr Work Phone: [facility] 05-25-2022 15:01-0500 Diastolic blood pressure 90 mm[Hg] Treatment Wstr Work Phone: [facility] 05-25-2022 15:01-0500 Heart rate 88 /min Treatment Wstr Work Phone: [facility] 05-25-2022 15:01-0500 Respiratory rate 18 /min Treatment Wstr Work Phone: [facility] 05-25-2022 15:01-0500 SaO2% (BldA) [Mass fraction] 99 % Treatment Wstr Work Phone: [facility] 05-25-2022 15:01-0500 Systolic blood pressure 151 mm[Hg] Treatment Wstr Work Phone: [facility] 05-18-2022 15:03-0500 Body temperature 97.2 [degF] Treatment Wstr Work Phone: [facility] 05-18-2022 15:03-0500 Diastolic blood pressure 72 mm[Hg] Treatment Wstr Work Phone: [facility] 05-18-2022 15:03-0500 Heart rate 87 /min Treatment Wstr Work Phone: [facility] 05-18-2022 15:03-0500 Systolic blood pressure 144 mm[Hg] Treatment Wstr Work Phone: [facility] 05-16-2022 15:30-0500 Body temperature 96.6 [degF] Treatment Wstr Work Phone: [facility] 05-16-2022 15:30-0500 Diastolic blood pressure 77 mm[Hg] Treatment Wstr Work Phone: [facility] 05-16-2022 15:30-0500 Heart rate 86 /min Treatment Wstr Work Phone: [facility] 05-16-2022 15:30-0500 Respiratory rate 16 /min Treatment Wstr Work Phone: [facility] 05-16-2022 15:30-0500 SaO2% (BldA) [Mass fraction] 98 % Treatment Wstr Work Phone: [facility] 05-16-2022 15:30-0500 Systolic blood pressure 147 mm[Hg] Treatment Wstr Work Phone: [facility] 05-11-2022 14:54-0500 Body temperature 97.11 [degF] Treatment Wstr Work Phone: [facility] 05-11-2022 14:54-0500 Diastolic blood pressure 69 mm[Hg] Treatment Wstr Work Phone: [facility] 05-11-2022 14:54-0500 Heart rate 70 /min Treatment Wstr Work Phone: [facility] 05-11-2022 14:54-0500 SaO2% (BldA) [Mass fraction] 96 % Treatment Wstr Work Phone: [facility] 05-11-2022 14:54-0500 Systolic blood pressure 126 mm[Hg] Treatment Wstr Work Phone: [facility] 05-06-2022 14:55-0500 Body temperature 97.81 [degF] Treatment Wstr Work Phone: [facility] 05-06-2022 14:55-0500 Diastolic blood pressure 68 mm[Hg] Treatment Wstr Work Phone: [facility] 05-06-2022 14:55-0500 Heart rate 61 /min Treatment Wstr Work Phone: [facility] 05-06-2022 14:55-0500 SaO2% (BldA) [Mass fraction] 100 % Treatment Wstr Work Phone: [facility] 05-06-2022 14:55-0500 Systolic blood pressure 128 mm[Hg] Treatment Wstr Work Phone: [facility] 05-05-2022 15:19-0500 Body temperature 97.2 [degF] Ricky Bradley MD Work Phone: [facility] 05-05-2022 15:19-0500 Body weight 111.58 kg Ricky Bradley MD Work Phone: [facility] 05-05-2022 15:19-0500 Diastolic blood pressure 64 mm[Hg] Ricky Bradley MD Work Phone: [facility] 05-05-2022 15:19-0500 Heart rate 76 /min Ricky Bradley MD Work Phone: [facility] 05-05-2022 15:19-0500 Respiratory rate 16 /min Ricky Bradley MD Work Phone: [facility] 05-05-2022 15:19-0500 Systolic blood pressure 114 mm[Hg] Ricky Bradley MD Work Phone: [facility] 05-02-2022 13:19-0500 Body height 170.2 cm Ingrid Yonkers PA-C Work Phone: [facility] 05-02-2022 13:19-0500 Body temperature 98.91 [degF] Ingrid Andrew PA-C Work Phone: [facility] 05-02-2022 13:19-0500 Body weight 114.31 kg Ingrid Andrew PA-C Work Phone: [facility] 05-02-2022 13:19-0500 Diastolic blood pressure 80 mm[Hg] Ingrid Andrew PA-C Work Phone: [facility] 05-02-2022 13:19-0500 Heart rate 110 /min Ingrid [place]onkers PA-C Work Phone: [facility] 05-02-2022 13:19-0500 SaO2% (BldA) [Mass fraction] 94 % Ingrid Andrew PA-C Work Phone: [facility] 05-02-2022 13:19-0500 Systolic blood pressure 140 mm[Hg] Ingrid [place]onkers PA-C Work Phone: [facility] 03-22-2022 15:04-0500 Body temperature 98.01 [degF] Yuniel Vini DO Work Phone: [facility] 03-22-2022 15:04-0500 Body weight 110.9 kg Yuniel Masci DO Work Phone: [facility] 03-22-2022 15:04-0500 Diastolic blood pressure 81 mm[Hg] Yuniel Masci DO Work Phone: [facility] 03-22-2022 15:04-0500 Heart rate 93 /min Yuniel Masci DO Work Phone: [facility] 03-22-2022 15:04-0500 Systolic blood pressure 134 mm[Hg] Yuniel Masci DO Work Phone: [facility] 01-31-2022 13:57-0400 Body temperature 97.39 [degF] Ricky Bradley MD Work Phone: [facility] 01-31-2022 13:57-0400 Body weight 112.95 kg Ricky Bradley MD Work Phone: [facility] 01-31-2022 13:57-0400 Diastolic blood pressure 56 mm[Hg] Ricky Bradley MD Work Phone: [facility] 01-31-2022 13:57-0400 Heart rate 64 /min Ricky Bradley MD Work Phone: [facility] 01-31-2022 13:57-0400 Respiratory rate 16 /min Ricky Bradley MD Work Phone: [facility] 01-31-2022 13:57-0400 Systolic blood pressure 108 mm[Hg] Ricky Bradley MD Work Phone: [facility] 01-26-2022 10:50-0400 Body temperature 97.81 [degF] Leda Christensen PT Work Phone: [facility] 01-26-2022 10:50-0400 Diastolic blood pressure 58 mm[Hg] Leda Christensen PT Work Phone: [facility] 01-26-2022 10:50-0400 Heart rate 62 /min Leda Christensen PT Work Phone: [facility] 01-26-2022 10:50-0400 Respiratory rate 16 /min Leda Christensen PT Work Phone: [facility] 01-26-2022 10:50-0400 SaO2% (BldA) [Mass fraction] 99 % Leda Christensen PT Work Phone: [facility] 01-26-2022 10:50-0400 Systolic blood pressure 112 mm[Hg] Leda Christensen PT Work Phone: [facility] 01-24-2022 09:59-0400 Body temperature 98.6 [degF] Raquel Shelly [employer] Work Phone: [facility] 01-24-2022 09:59-0400 Diastolic blood pressure 60 mm[Hg] Raquel Shelly [employer] Work Phone: [facility] 01-24-2022 09:59-0400 Heart rate 68 /min Raquel Shelly [employer] Work Phone: [facility] 01-24-2022 09:59-0400 Respiratory rate 18 /min Raquel Shelly [employer] Work Phone: [facility] 01-24-2022 09:59-0400 SaO2% (BldA) [Mass fraction] 99 % Raquel Shelly [employer] Work Phone: [facility] 01-24-2022 09:59-0400 Systolic blood pressure 112 mm[Hg] Raquel Shelly [employer] Work Phone: [facility] 01-21-2022 14:40-0400 Body temperature 98.01 [degF] Raquel Shelly [employer] Work Phone: [facility] 01-21-2022 14:40-0400 Diastolic blood pressure 60 mm[Hg] Raquel Shelly [employer] Work Phone: [facility] 01-21-2022 14:40-0400 Heart rate 64 /min Raquel Shelly [employer] Work Phone: [facility] 01-21-2022 14:40-0400 Respiratory rate 18 /min Raquel Shelly [employer] Work Phone: [facility] 01-21-2022 14:40-0400 SaO2% (BldA) [Mass fraction] 98 % Raquel Shelly [employer] Work Phone: [facility] 01-21-2022 14:40-0400 Systolic blood pressure 110 mm[Hg] Raquel Shelly [employer] Work Phone: [facility] 01-13-2022 11:50-0400 Body temperature 98.2 [degF] Jacquelin Jimenez PT Work Phone: [facility] 01-13-2022 11:50-0400 Diastolic blood pressure 60 mm[Hg] Jacquelin Jimenez PT Work Phone: [facility] 01-13-2022 11:50-0400 Heart rate 68 /min Jacquelin Jimenez PT Work Phone: [facility] 01-13-2022 11:50-0400 Respiratory rate 16 /min Jacquelin Jimenez PT Work Phone: [facility] 01-13-2022 11:50-0400 SaO2% (BldA) [Mass fraction] 100 % Jacquelin Jimenez PT Work Phone: [facility] 01-13-2022 11:50-0400 Systolic blood pressure 120 mm[Hg] Jacquelin Jimenez PT Work Phone: [facility] 01-11-2022 09:04-0400 Body temperature 97.39 [degF] Raquel Shelly [employer] Work Phone: [facility] 01-11-2022 09:04-0400 Diastolic blood pressure 64 mm[Hg] Raquel Shelly [employer] Work Phone: [facility] 01-11-2022 09:04-0400 Heart rate 63 /min Raquel Shelly [employer] Work Phone: [facility] 01-11-2022 09:04-0400 Respiratory rate 18 /min Raquel Shelly [employer] Work Phone: [facility] 01-11-2022 09:04-0400 SaO2% (BldA) [Mass fraction] 97 % Raquel Shelly [employer] Work Phone: [facility] 01-11-2022 09:04-0400 Systolic blood pressure 112 mm[Hg] Raquel Shelly [employer] Work Phone: [facility] 01-05-2022 10:00-0400 Diastolic blood pressure 60 mm[Hg] Leda Grossman-Slava PT Work Phone: [facility] 01-05-2022 10:00-0400 Heart rate 78 /min Leda Christensen PT Work Phone: [facility] 01-05-2022 10:00-0400 Respiratory rate 18 /min Leda Christensen PT Work Phone: [facility] 01-05-2022 10:00-0400 SaO2% (BldA) [Mass fraction] 99 % Leda Christensen PT Work Phone: [facility] 01-05-2022 10:00-0400 Systolic blood pressure 108 mm[Hg] Leda Grossman-Slava PT Work Phone: [facility] 01-05-2022 09:10-0400 Body temperature 97.9 [degF] Leda Grossman-Pedersen PT Work Phone: [facility] 01-03-2022 14:13-0400 Body temperature 97.39 [degF] Raquel Shelly [employer] Work Phone: [facility] 01-03-2022 14:13-0400 Diastolic blood pressure 68 mm[Hg] Raquel Shelly [employer] Work Phone: [facility] 01-03-2022 14:13-0400 Heart rate 76 /min Raquel Shelly [employer] Work Phone: [facility] 01-03-2022 14:13-0400 Respiratory rate 18 /min Raquel Shelly [employer] Work Phone: [facility] 01-03-2022 14:13-0400 SaO2% (BldA) [Mass fraction] 99 % Raquel Shelly [employer] Work Phone: [facility] 01-03-2022 14:13-0400 Systolic blood pressure 118 mm[Hg] Raquel Shelly [employer] Work Phone: [facility] 12-31-2021 02:30-0400 Body temperature 97.3 [degF] Leda Halderman-Pedersen PT Work Phone: [facility] 12-31-2021 02:30-0400 Diastolic blood pressure 50 mm[Hg] Leda Halderman-Pedersen PT Work Phone: [facility] 12-31-2021 02:30-0400 Heart rate 55 /min Leda Traylorman-Pedersen PT Work Phone: [facility] 12-31-2021 02:30-0400 Respiratory rate 16 /min Leda Halderman-Pedersen PT Work Phone: [facility] 12-31-2021 02:30-0400 SaO2% (BldA) [Mass fraction] 99 % Leda Halderman-Pedersen PT Work Phone: [facility] 12-31-2021 02:30-0400 Systolic blood pressure 100 mm[Hg] Leda Halderman-Pedersen PT Work Phone: [facility] 12-28-2021 14:04-0400 Body temperature 98.2 [degF] Raquel Shelly ELECTRICAL FITTER Work Phone: [facility] 12-28-2021 14:04-0400 Diastolic blood pressure 78 mm[Hg] Raquel Shelly ELECTRICAL FITTER Work Phone: [facility] 12-28-2021 14:04-0400 Heart rate 78 /min Raquel Shelly ELECTRICAL FITTER Work Phone: [facility] 12-28-2021 14:04-0400 Respiratory rate 18 /min Raquel Shelly ELECTRICAL FITTER Work Phone: [facility] 12-28-2021 14:04-0400 SaO2% (BldA) [Mass fraction] 97 % Raquel Shelly ELECTRICAL FITTER Work Phone: [facility] 12-28-2021 14:04-0400 Systolic blood pressure 134 mm[Hg] Raquel Shelly ELECTRICAL FITTER Work Phone: [facility] 12-23-2021 10:35-0400 Body temperature 97.81 [degF] Raquel Shelly ELECTRICAL FITTER Work Phone: [facility] 12-23-2021 10:35-0400 Diastolic blood pressure 70 mm[Hg] Raquel Shelly ELECTRICAL FITTER Work Phone: [facility] 12-23-2021 10:35-0400 Heart rate 56 /min Raquel Shelly ELECTRICAL FITTER Work Phone: [facility] 12-23-2021 10:35-0400 Respiratory rate 18 /min Raquel Shelly ELECTRICAL FITTER Work Phone: [facility] 12-23-2021 10:35-0400 SaO2% (BldA) [Mass fraction] 98 % Raquel Shelly ELECTRICAL FITTER Work Phone: [facility] 12-23-2021 10:35-0400 Systolic blood pressure 126 mm[Hg] Raquel Shelly ELECTRICAL FITTER Work Phone: [facility] 12-21-2021 10:30-0400 Body temperature 97.3 [degF] Leda Christensen PT Work Phone: [facility] 12-21-2021 10:30-0400 Diastolic blood pressure 60 mm[Hg] Leda Christensen PT Work Phone: [facility] 12-21-2021 10:30-0400 Heart rate 68 /min Leda Christensen PT Work Phone: [facility] 12-21-2021 10:30-0400 Respiratory rate 18 /min Leda Halderman-Pedersen PT Work Phone: [facility] 12-21-2021 10:30-0400 SaO2% (BldA) [Mass fraction] 99 % Leda Halderman-Pedersen PT Work Phone: [facility] 12-21-2021 10:30-0400 Systolic blood pressure 110 mm[Hg] Leda Halderman-Pedersen PT Work Phone: [facility] 12-17-2021 15:20-0400 Body temperature 97.9 [degF] Leda Halderman-Pedersen PT Work Phone: [facility] 12-17-2021 15:20-0400 Diastolic blood pressure 64 mm[Hg] Leda Halderman-Pedersen PT Work Phone: [facility] 12-17-2021 15:20-0400 Heart rate 73 /min Leda Halderman-Pedersen PT Work Phone: [facility] 12-17-2021 15:20-0400 Respiratory rate 18 /min Leda Halderman-Pedersen PT Work Phone: [facility] 12-17-2021 15:20-0400 SaO2% (BldA) [Mass fraction] 99 % Leda Halderman-Pedersen PT Work Phone: [facility] 12-17-2021 15:20-0400 Systolic blood pressure 112 mm[Hg] Leda Halderman-Pedersen PT Work Phone: [facility] 11-04-2021 09:46-0400 Body temperature 97.59 [degF] Ricky Bradley MD Work Phone: [facility] 11-04-2021 09:46-0400 Body weight 113.4 kg Ricky Bradley MD Work Phone: [facility] 11-04-2021 09:46-0400 Diastolic blood pressure 66 mm[Hg] Ricky Bradley MD Work Phone: [facility] 11-04-2021 09:46-0400 Heart rate 60 /min Ricky Bradley MD Work Phone: [facility] 11-04-2021 09:46-0400 Respiratory rate 16 /min Ricky Bradley MD Work Phone: [facility] 11-04-2021 09:46-0400 Systolic blood pressure 130 mm[Hg] Ricky Bradley MD Work Phone: [facility] 07-06-2021 12:24-0400 Diastolic blood pressure 76 mm[Hg] Mi Nurse Work Phone: [facility] 07-06-2021 12:24-0400 Heart rate 62 /min Mi Nurse Work Phone: [facility] 07-06-2021 12:24-0400 Systolic blood pressure 128 mm[Hg] Mi Nurse Work Phone: [facility] Encounters Encounter Date Encounter Type Care Provider Facility Start: 05-23-2023 Telephone encounter Haley Valiente MD Work Phone: Gastroenterology Procedures Date Procedure Procedure Detail Performing Clinician Start: 01-16-2023 Mri abdomen w/o & w/contrast material Bubba Sykes MD Work Phone: Start: 09-28-2022 Colonoscopy RICKY TORRES Start: 07-26-2022 Mri abdomen w/o & w/contrast material Kai Poon PA-C Work Phone: Start: 03-25-2022 Us abdominal real ti me w/image limited Yuniel Meli Dahl DO Work Phone: Plan of Treatment Date Care Activity Detail Author Start: 12-27-2026 Urine microalbumin profile [facility] Immunizations Immunization Date Immunization Notes Care Provider Fa cili 02-14-2022 influenza (aIIV4) vaccine, age 65+ yr, quadrivalent, PF (FLUAD QUAD) Haley Valiente MD Work Phone: [facility] Work Phone: 02-14-2022 influenza, high dose seasonal, preservative-free Ricky Bradley MD Work Phone: [facility] Work Phone: 02-14-2022 influenza virus vacc ine, unspecified formulation Treatment Wstr Work Phone: [facility] 04-14-2021 COVID-19 vaccine, ag e 12+ yr (PFIZER-BIONTECH - PURPLE TOP) Mi Nurse Work Phone: [facility] Work Phone: 04-07-2021 influenza (aIIV4) vaccine, age 65+ yr, quadrivalent, PF (FLUAD QUADRIVALENT) Mi Nurse Work Phone: [facility] Work Phone: 06-02-2020 COVID-19 vaccine, ag e 12+ yr (PFIZER-BIONTECH - PURPLE TOP) Mi Nurse Work Phone: [facility] Work Phone: 05-12-2020 COVID-19 vaccine, ag e 12+ yr (PFIZER-BIONTECH - PURPLE TOP) Mi Nurse Work Phone: [facility] Work Phone: 02-27-2020 influenza, high dose seasonal, preservative-free Me Nurse Work Phone: [facility] Work Phone: 02-18-2019 influenza, high dose seasonal, preservative-free Mi Nurse Work Phone: [facility] 01-15-2019 influenza, injectabl e, quadrivalent, preservative free Haley Valiente MD Work Phone: [facility] Work Phone: 01-15-2019 influenza, seasonal, injectable, preservative free Me Nurse Work Phone: [facility] Work Phone: 03-02-2018 zoster vaccine recombinant Mi Nurse Work Phone: [facility] Work Phone: 02-19-2018 influenza, high dose seasonal, preservative-free Me Nurse Work Phone: [facility] 01-01-2018 zoster vaccine recombinant Mi Nurse Work Phone: [facility] Work Phone: 12-15-2017 pneumococcal polysaccharide vaccine, 23 valbruna Bradley MD Work Phone: [facility] Work Phone: 12-27-2016 influenza, high dose seasonal, preservative-free Mi Nurse Work Phone: [facility] 12-27-2016 pneumococcal conjuga te vaccine, 13 valbruna Bradley MD Work Phone: [facility] Work Phone: 12-27-2016 tetanus and diphther ia toxoids, adsorbed, preservative free, for adult use (5 Lf of tetanus toxoid and 2 Lf of diphtheria toxoid) Mi Nurse Work Phone: [facility] 12-27-2016 tetanus toxoid, redu magali diphtheria toxoid, and acellular pertussis vaccine, adsorbed Mi Nurse Work Phone: [facility] Work Phone: 02-11-2015 influenza, high dose seasonal, preservative-free Mi Nurse Work Phone: [facility] 01-15-2015 pneumococcal conjuga te vaccine, 13 valbruna Bradley MD Work Phone: [facility] Work Phone: 05-28-2014 pneumococcal conjuga te vaccine, 13 valent Mi Nurse Work Phone: [facility] 04-09-2014 influenza, seasonal, injectable Mi Nurse Work Phone: [facility] 02-27-2013 influenza virus vacc ine, unspecified formulation Mi Nurse Work Phone: [facility] 01-22-2011 influenza virus vacc ine, unspecified formulation Mi Nurse Work Phone: [facility] Work Phone: 04-23-2008 influenza virus vacc ine, unspecified formulation Mi Nurse Work Phone: [facility] Work Phone: 03-14-2007 influenza virus vacc ine, unspecified formulation Me Nurse Work Phone: [facility] 10-03-2006 tetanus and diphther ia toxoids, adsorbed, preservative free, for adult use (2 Lf of tetanus toxoid and 2 Lf of diphtheria toxoid) Me Nurse Work Phone: [facility] 02-20-2006 influenza virus vacc ine, unspecified formulation Mi Nurse Work Phone: [facility] Work Phone: 02-20-2006 pneumococcal polysaccharide vaccine, 23 valent Me Nurse Work Phone: [facility] Work Phone: 02-24-2005 influenza virus vacc ine, unspecified formulation Me Nurse Work Phone: [facility] Work Phone: Payers Date Payer Category Payer Unknown MMO MMO MEDICARE SUPPLEMENT [id number] 2019-Present [phone] [address] [place] [address] Indemnity [id number] 2019 Unknown MMO MMO MEDICARE SUPPLEMENT [id number] 2019-Present [phone] [address] [place] [address] Indemnity [id number] 2019 Unknown [id number] 2004 Medicare 2004 Medicare MEDICARE MEDICAR E A AND B [id number] 2004-Present [phone] [address] [address] [place] [address] Medicare [id number] 2004 Medicare [id number] Medicare [id number] Social History Date Type Detail Facility Tobacco smoking stat us NHIS Never smoked tobacco [facility] Work Phone: Start: 07-06-2021 End: 03-13-2023 Alcohol intake Current non-drinker of alcohol (finding) [facility] Start: 05-07-2021 End: 05-05-2022 History SDOH Alcohol Frequency 1 [facility] Start: 05-07-2021 End: 05-05-2022 History SDOH Social Connections Phone 5 [facility] Start: 05-07-2021 End: 05-05-2022 History SDOH Social Connections Get Together 4 [facility] Start: 05-07-2021 End: 05-05-2022 History SDOH Social Connections Mormonism 3 [facility] Start: 1940 Sex Assigned At Not on file C [facility] Start: 10-25-2021 End: 02-28-2022 Exposure to SARS-CoV-2 (event) Not sure [facility] Work Phone: Start: 05-05-2022 History SDOH Alcohol Std Drinks 0 [facility] Start: 05-05-2022 History SDOH Social Connections Get Together 2 [facility] Start: 05-05-2022 History SDOH Social Connections Membership 98 [facility] Start: 05-05-2022 End: 08-19-2022 [facility] Start: 05-05-2022 End: 08-19-2022 Social connection and isolation panel [facility] Do you belong to any clubs or organizations such as shinto groups, [employer], [employer] or athletic groups, or school groups? Patient refused [facility] Are you now , , , , never or living with a partner? [facility] How often to you hav e a drink containing alcohol? Never [facility] (I/We) worried wheth er (my/our) food would run out before (I/we) got money to buy more. DK or Refused [facility] In the past 12 month s, was there a time when you were not able to pay the mortgage or rent on time? No [facility] Do you belong to any clubs or organizations such as shinto groups, [employer], [employer] or athletic groups, or school groups? Yes [facility] Work Phone: Are you now , , , , never or living with a partner? [facility] Work Phone: Do you feel stress - tense, restless, nervous, or anxious, or unable to sleep at night because your mind is troubled all the time - these days [OSQ] Not at all [facility] Work Phone: Medical Equipment Procedure Code Equipment Code Equipment Origin al Text Equipment Identifier Dates [place] Ptfe 1.2 Cm X 10 Cm - [id number] Start: 01-18-2011 Clinical Notes 10-02-2018 to 05-23-2023 Telephone Encounter - Sagrario Hayes RN - 05/23/2023 1:35 PM ESTTelephone Encounter - Ricky Bradley MD - 05/23/2023 10:55 AM ESTTelephone Encounter - Mary Menjivar - 05/23/2023 9:46 AM EST Note Date & Type Note Facility 05-23-2023 Miscellaneous Notes Attempted to call pt and daughter Ingris answered. Spoke with pt on the phone and he gives permission to share any information with Ingris. Added to the appt desk. Ingris notified that prescriptions okayed by Dr. Bradley and that Dr. Bradley would like to see pt for a yearly visit. Ingris states her dad still has a very hard time getting around and she isn't sure if she could bring him in or not. She is hoping that he will improve when she takes him to [place]. She will call back to set up the appt when she feels she is able to bring him in. Notified that prescriptions were only filled for 3 months. Verbalizes understanding. Patient's request for medication is as follows Requested Prescriptions Signed Prescriptions Disp Refills omeprazole (PRILOSEC) 40 mg capsule 90 capsule 0 Sig: Take 1 capsule by mouth once daily. Authorizing Provider: RICKY BRADLEY ferrous sulfate 325 mg (65 mg iron) EC tablet 180 tablet 0 Sig: Take 1 tablet by mouth two times a day with meals. Authorizing Provider: RICKY BRADLEY Schedule annual wellness with follow up in office. Ricky Bradley MD Pt's daughter calling and states pt is moving to [place]. Pt is currently at [facility]. She wants to get his meds in order for [place] and needs refills on the following meds: Patient has been identified by name and date of : Requested Prescriptions Pending Prescriptions Disp Refills omeprazole (PRILOSEC) 40 mg capsule 90 capsule 3 Sig: Take 1 capsule by mouth once daily. ferrous sulfate 325 mg (65 mg iron) EC tablet 180 tablet 1 Sig: Take 1 tablet by mouth two times a day with meals. Date of last office visit in primary care: 11/04/2022 Date of next office visit in primary care: Pt currently in correction. Please advise. Thank you. Sagrario Hayes RN. documented in this encounter [facility] 05-23-2023 Miscellaneous Notes Attempted to call pt and daughter Ingris answered. Spoke with pt on the phone and he gives permission to share any information with Ingris. Added to the appt desk. Ingris notified that prescriptions okayed by Dr. Bradley and that Dr. Bradley would like to see pt for a yearly visit. Ingris states her dad still has a very hard time getting around and she isn't sure if she could bring him in or not. She is hoping that he will improve when she takes him to [place]. She will call back to set up the appt when she feels she is able to bring him in. Notified that prescriptions were only filled for 3 months. Verbalizes understanding. States at this time, she is good on his med list. Daughter Ingris, called to clarify pt's medication list. Reports patient will be discharging from [facility] to assisted living and would like to make sure pcp medication list matches ours. Advised Ingris, pt needs to give verbal permission to speak with her regarding his medical information. Ingris expressed her concern about this since she is HCPOC, and does report pt is alert and and able to make decisions. This nurse left message for pt to return call to triage nurse for question from nurse. Please ask pt for verbal permission to speak with daughter, Ingris, about his medical information. Once pt gives permission please call daughter Ingris to clarify pt's medication list. documented in this encounter [facility] 05-23-2023 Miscellaneous Notes Called [facility] and was told patient never had a fill on xifaxan do to denial from insurance company. Called Ingris back and discussed with her. She stated she remembers the denial and Dr Valiente had said he didn't need to take at that time. They have a follow up 06/01 and will discuss then. Jessica Banegas RN May 23, 2023 11:27 AM Patient's daughter called to ask if this patient should still be taking xifaxan? They have not had a refill in a while and may need a PA if he is supposed to still be on this medication. documented in this encounter [facility] 04-06-2023 Note [facility] 04-06-2023 History of Present illness Narrative This is an Express Care eVisit note for Satya Medellin eVisit/Questionnaire reviewed The chief complaint for the visit - Patient presents with: Wound Infection Recommendations/Treatment plan - See My Chart Message to patient Time spent <1 min Yolanda Camarillo APRN.CONE SEWER documented in this encounter [facility] 04-06-2023 Miscellaneous Notes Sonmelony- caregiver from [facility]- reports patient has an open wound on right leg b/t knee and ankle, front of leg, for about a week. Reports it's a scrape about the size of a half dollar. Reports it has red borders 3-4 around with pus. Reports the other caregivers have been putting salve on it with dressing. Reports there is no scab forming and it looks worse. Sonmelony asking for a VV appt. Reports patient does not know ID/password to his [facility]. Chris declines offer for appt with pcp office or EC, states she is unable to bring patient. Informed Chris of the odessa [facility] express care online. Chris states she will try this odessa. documented in this encounter [facility] 03-17-2023 Miscellaneous Notes Attempted to reach the patient at the contact number that they provided [phone] (home) . 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 was left informing the patient/patient litigation claim representative they must have a responsible adult [...] Number to call with questions or concerns [phone] Number to call to cancel their procedure [phone] Herminia Begum RN documented in this encounter [facility] 02-02-2023 Note [facility] 02-02-2023 History of Present illness Narrative HCC Clinic New Patient Date of visit: 02/02/23 CC: HCC treated with SBRT HPI: This is a 82 year old with 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 ferrous sulfate [...] (MELD 3.0: 7) complicated by HCC (within [place] treated with SBRT 08/2022), HE, PUD (bled [...] which included preparing to see the patient, [id number] patient care, completing clinical documentation, obtaining and/or reviewing separately obtained history, performing a medically appropriate examination, counseling and educating the patient/family/caregiver, ordering medications, tests, or procedures, and communicating with other HCPs (not separately reported). Haley Valiente MD Associate Staff, Department of Gastroenterology and Hepatology [facility] [place] documented in this encounter [facility] 01-18-2023 Note [facility] 01-16-2023 Note [facility] 01-16-2023 History of Present illness Narrative [...] TIME: 10:47 AM documented in this encounter [facility] 01-06-2023 Miscellaneous Notes Referral form has been faxed to [facility] at number given below. Call to Ingris on Mobile and left vague message that referral form has been faxed to [facility]. Also called work number listed and left message as well notifying her with vague message. Adela Kaur Ma Please place referral, fax to [phone]. [facility] called and they have not received anything and pt is calling them. Also please call pt once referral has been faxed. Pt concerned because he needs to be seen meghana. Taylor Blevins LPN Please fax referral Jenny Aviles APRN.CONE SEWER Patient calls to check on status of [...] center. Eliza Garcia LPN Left message for Ingris Nurse to call with more info. Carol Robertson LPN Please call Ingris from [facility] for more information on this wound: location, etc. Jenny Aviles APRN.KESHIA Monique with [facility] calls to report that Ingris with [facility] called for appt for pt to be seen for yellow drainage from wound. Monique reports that pcp has to send order. Fax order to [facility]: [phone]. Akilah Barnett LPN documented in this encounter [facility] 12-29-2022 Miscellaneous Notes Michael spoke with gilda Amado. Discussed patient currently receives 30 hour a week [facility] Patient also receives medical alert button courtesy [...] that she will reach out and call gilda Amado today @1pm. Michael left message for daughter Ingris to return Sw call to discuss community resources for patient care needs. Refer to MOLLY for options for more home care or [...] house. Daughter reports she does have a biomedical repair technician come to pt's home for five hours six days a week but it is getting to the point where someone needs to be there more. Daughter is asking if pcp has any recommendations on what to do. Daughter is aware that pcp is out of the office this week. Akilah Barnett LPN documented in this encounter [facility] 12-12-2022 Miscellaneous Notes Detailed VM left on [...] if these were prescribed by PCP or [facility]. Date of last office visit [...] 11/04/2022 102/60 Please advise. Thank you. Krystal Johnson RN 22 documented in this encounter [facility] 12-09-2022 Note [facility] 12-09-2022 History of Present illness Narrative [...] He had lab work ordered at his health sciences department chair office. Protein electrophoresis of the urine demonstrated [...] for cleaning and washing clothes via the [place]. Daughter lives close by and he gets [...] ox check. No symptoms. Was taken to [facility] ED. he was advised to increase low-dose aspirin to 3 times daily--but I cannot find documentation of this after careful review of the [facility] electronic medical record. He is not on anticoagulation because of thrombocytopenia and cirrhosis. Back in ED yesterday at the request of the [place] nurse due to variable heart rate. Was told in ED in and out of a fib. Sensory neuropathy symptoms subjectively stable. Previously seen by neurology group in [place]. Was told nothing to be done for [...] - 4.00 k/uL 0.50 (L) 0.43 (L) [place]% % 5.6 6.2 Abs [place] <0.87 k/uL 0.26 0.24 Eosin% % 3.4 [...] Component Latest Ref Rng & Units 03/22/2022 Arbuckle Free, Serum 3.3 - 19.4 mg/L 65.0 (H) Lambda Free, Serum 5.7 - 26.3 mg/L 37.1 (H) K/L Ratio, Serum 0.26 - 1.65 1.75 (H) IgG kappa on immunofixation of serum. Component Latest Ref Rng & Units 05/02/2022 PTH, Intact 15 - 65 pg/mL 69 (H) PATHOLOGY: Bone marrow biopsy done at [facility] 05/05/2022: Hypercellular bone marrow with trilineage [...] which included preparing to see the patient, [id number] patient care, completing clinical documentation, obtaining and/or reviewing separately obtained history, performing a medically appropriate examination, counseling and educating the patient/family/caregiver, ordering medications, tests, or procedures, communicating with other HCPs (not separately reported), and communicating results to the patient/family/caregiver. Yuniel Dahl DO documented in this encounter [facility] 11-29-2022 Miscellaneous Notes Noted. Brigida OT with [facility] calls to let provider know that patient HR was out side of their parameters today. HR 117 and then 44. At end of session it was 68. Asymptomatic. Dr. Charlton's office also notified. Patient missed his appointment with Dr. Charlton last week and will reschedule. Paradise Masterson, PAYAL documented in this encounter [facility] 11-04-2022 Note [facility] 11-03-2022 Miscellaneous Notes Wild PT calling from [facility] to report plan of care for patient and physical therapy will visit patient 2 times a week for 2 weeks and 1 time a week for 1 week. Physical therapy will work with patient on functional mobility. No call back needed. Radha Hernandez RN documented in this encounter [facility] 11-02-2022 Miscellaneous Notes Charity notified. PCP agrees and will follow Jenny Aviles APRN.KESHIA Charity RN calling from [facility] to report plan of care for patient and SN will visit patient 1 times a week for five weeks. SN will work with patient on monitoring and education of new diagnosis of Afib. Charity needs verbal order for POC. After receives verbal order 485 form will be completed and faxed to provider at [phone]. Please call verbal order to Charity at [phone]. Paradise Masterson RN documented in this encounter [facility] 11-01-2022 Miscellaneous Notes Below response left on identified vm. Carol Robertson LPN I will follow HH. Deandra with [facility] calling. Patient discharging from [facility], diagnosis A-Fib, post-fall. Pt has orders for Nursing, PT and OT and asking if PCP willing to follow for these orders? They would like to start seeing patient tomorrow, on 11/02. Please call Deandra back with approval at [phone]. Teresa Woodward RN documented in this encounter [facility] 10-21-2022 Miscellaneous Notes Called and left a [...] Taylor Blevins LPN documented in this encounter [facility] 09-30-2022 Miscellaneous Notes Appeal letter for fern faxed to [employer] appeal department for review. documented in this encounter [facility] 09-21-2022 Miscellaneous Notes Spoke with patient: Yes [...] have family/friend present for procedure transport home:Patient/patient litigation claim representative was told that if they do [...] area. 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 Type of instruction given: Verbal by telephone contact. Shaneak Rudolph LPN documented in this encounter [facility] 09-20-2022 Note [facility] 09-20-2022 History of Present illness Narrative [...] Arnie Rodriguez PA-C documented in this encounter [facility] 09-19-2022 Miscellaneous Notes TC Ingris/daughter, advised refill for Oxybutynin (Ditropan) was [...] Destiny [facility] Pss documented in this encounter [facility] 09-01-2022 Note [facility] 09-01-2022 Note [facility] 09-01-2022 History of Present illness Narrative SATYA MEDELLIN [id number] 09/01/2022 [facility] Department of Radiation Oncology [facility] RADIATION ONCOLOGY: COMPLETION NOTE DATE OF SIMULATION: 08/19/2022 DATES OF TREATMENT: 09/01/2022 to 09/01/2022 TREATMENT MACHINE: Edge2 TREATMENT AREA: Liver HCC DIAGNOSIS: 82 year [...] AM Electronically Signed cc: Ricky Bradley [address] [place] [address] Dr. Dahl, [facility] documented in this encounter [facility] 08-22-2022 Miscellaneous Notes Pt never seen in [...] patient. Dary Ledesma documented in this encounter [facility] 08-19-2022 Note [facility] 08-19-2022 Nurse Note Satya Medellin is [...] pt refused interventions/assistance. 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 Was approved? Clinical questionnaires incomplete due to Patient declined to complete or answer questions with nurse Signed by: Yessenia Coy LPN documented in this encounter [facility] 08-19-2022 Note [facility] 08-19-2022 Note [facility] 08-19-2022 Note [facility] 08-19-2022 History of Present illness Narrative SATYA MEDELLIN. [id number] 08/19/2022 [facility] Department of Radiation Oncology [facility] RADIATION ONCOLOGY - Therapist Injection Note Procedure: [...] of treatment instructions: Yes Disposition: home Therapist: saranya/edwin documented in this encounter [facility] 08-19-2022 History of Present illness Narrative SATYA MEDELLIN [id number] 08/19/2022 [facility] Department of Radiation Oncology [facility] RADIATION ONCOLOGY SIMULATION NOTE DATE OF SIMULATION: [...] if applicable. Electronically Signed Bubba Sykes M.D. 34:47 PM documented in this encounter [facility] 08-18-2022 Miscellaneous Notes RADIATION ONCOLOGY NURSING PRE-SIM CALL Today's date: August 18, 2022 Time: 11:32 AM SIM date: 08/19/22 Spoke with patient's daughterIngris. Patient instructed to be NPO after 10am, [...] Ashley Jansen RN documented in this encounter [facility] 08-11-2022 Note [facility] 08-10-2022 Note [facility] 08-10-2022 Note [facility] 08-10-2022 Note [facility] 08-10-2022 History of Present illness Narrative [facility] received prescription(s) for Xifaxan from Dr. Haley Valiente's office. Benefits investigation was conducted, indicating that a prior authorization is required by patient's medicare part D insurance plan with [employer]. Encounter will be updated once prior authorization has been submitted by [facility]. Elizabeth Omer [facility] [address], [id number] [place] [id number] [email or web address] [phone] Xifaxan PA was initiated and pending review. Plan Name: [employer] med d Plan Agent/Simental: [employer] (simental [id number]) Case: [id number] Timeline: 24-72 hrs Elizabeth Omer (F[employer] Care Social Worker) documented in this encounter [facility] 08-10-2022 Note [facility] 08-10-2022 Instructions Haley Valiente MD - 08/10/2022 9:20 AM EDT As [...] Highly recommend this! 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 ferrous sulfate [...] which included preparing to see the patient, [id number] patient care, completing clinical documentation, obtaining and/or reviewing separately obtained history, performing a medically appropriate examination, counseling and educating the patient/family/caregiver, ordering medications, tests, or procedures, and communicating with other HCPs (not separately reported). Haley Valiente MD Associate Staff, Department of Gastroenterology and Hepatology [facility] [place] -- ASSESSMENT/PLAN: 1. 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 Yousif Bustillos MD Radiation Oncology Resident [phone] STAFF ADDENDUM: I have read and reviewed [...] care. Bubba Sykes MD cc: Ricky Bradley [address] [place] [address] Dr. Dahl, [facility] documented in this encounter [facility] 07-28-2022 Miscellaneous Notes Left voicemail for patient's daughter about liver tumor board results See [employer] message from today documented in this encounter [facility] 07-26-2022 Miscellaneous Notes Spoke to patient's daughter [...] directly about the MRI findings. Will send [employer] message if unable to reach her by this evening as I am off tomorrow 07/27 Kai Poon PA-C July 26, 2022 3:14 PM documented in this encounter [facility] 07-26-2022 Note [facility] 07-26-2022 Note [facility] 07-26-2022 Note [facility] 07-26-2022 Note [facility] 07-26-2022 History of Present illness Narrative [...] 2022 1:01 PM documented in this encounter [facility] 07-26-2022 History of Present illness Narrative Radiology [...] 2022 1:32 PM documented in this encounter [facility] 07-26-2022 Nurse Note Radiology Service Progress Note [...] 2022 11:20 AM documented in this encounter [facility] 07-13-2022 Miscellaneous Notes Radiology Service Pre Anesthesia [...] Yes, 9. Does the patient have a team otr truck driver to take them home? Yes, 10. Spoke with patient: No, spoke with Thiago, and All questions were addressed and answered. Patient's daughter verbalized understanding. SIGNED BY: Keyona Dodson RN July 13, 2022 4:13 PM documented in this encounter [facility] documented as of this encounter (statuses as of 11/30/2022) [facility]20[facility] History of Past illness Narrative* Problem Noted Date Diagnosed Date Resolved Date Stasis ulcer 07/05/2022 11/04/2022 Obesity, Class II, BMI 35-39.9 04/22/2020 11/04/2022 Medicare annual wellness visit, subsequent 10/02/2018 02/18/2019 Encounter for long-term (cur rent) use of medications 09/07/2017 05/07/2021 Overview: Added automatically from request for surgery [id number] History of colonic polyps 09/07/2017 Overview: Added automatically from request for surgery [id number] Gastroesophageal reflux disease 09/07/2017 05/07/2021 Overview: Added automatically from request for surgery [id number] Acute pulmonary edema 01/19/2011 10/06/ 2011 Overview: 01/19/2011 cardiogenic and noncardiogenic factors Atelectasis [...] 01/12/2011 1 Overview: age 70, lives in [place], [place]. No DC needs. / Pre-op testing 01/12/2011 01/18/2011 Overview: Images from the original note were not included. [facility] PRE[facility] Surgeon: Zenon Sanders M.D. Informed Consent Completed: No STS Score: 1.4% CAD: Yes - CAD on Problem List: Yes Is intended procedure a CABG: Yes - is a beta isaamr ordered? Yes H & P completed: Yes [...] of this encounter (statuses as of 12/10/2022) [facility] History of Past illness Narrative* Problem Noted Date Diagnosed Date Resolved Date Stasis ulcer 07/05/2022 11/04/2022 Obesity, Class II, BMI 35-39.9 04/22/2020 11/04/2022 Medicare annual wellness visit, subsequent 10/02/2018 02/18/2019 Encounter for long-term (cur rent) use of medications 09/07/2017 05/07/2021 Overview: Added automatically from request for surgery [id number] History of colonic polyps 09/07/2017 Overview: Added automatically from request for surgery [id number] Gastroesophageal reflux disease 09/07/2017 05/07/2021 Overview: Added automatically from request for surgery [id number] Acute pulmonary edema 01/19/20112010 Overview: 01/19/2011 cardiogenic [...] 01/12/2011 1 Overview: age 70, lives in [place], [place]. No DC needs. / Pre-op testing [...] of this encounter (statuses as of 12/12/2022) [facility] History of Past illness Narrative* Problem Noted Date Diagnosed Date Resolved Date Stasis ulcer 07/05/2022 11/04/2022 Obesity, Class II, BMI 35-39.9 04/22/2020 11/04/2022 Medicare annual wellness visit, subsequent 10/02/2018 02/18/2019 Encounter for long-term (cur rent) use of medications 09/07/2017 05/07/2021 Overview: Added automatically from request for surgery [id number] History of colonic polyps 09/07/2017 Overview: Added automatically from request for surgery [id number] Gastroesophageal reflux disease 09/07/2017 05/07/2021 Overview: Added automatically from request for surgery [id number] Acute pulmonary edema 01/19/20112010 Overview: 01/19/2011 cardiogenic [...] 01/12/2011 1 Overview: age 70, lives in [place], [place]. No DC needs. / Pre-op testing [...] of this encounter (statuses as of 12/21/2022) [facility] History of Past illness Narrative* Problem Noted Date Diagnosed Date Resolved Date Stasis ulcer 07/05/2022 11/04/2022 Obesity, Class II, BMI 35-39.9 04/22/2020 11/04/2022 Medicare annual wellness visit, subsequent 10/02/2018 02/18/2019 Encounter for long-term (cur rent) use of medications 09/07/2017 05/07/2021 Overview: Added automatically from request for surgery [id number] History of colonic polyps 09/07/2017 Overview: Added automatically from request for surgery [id number] Gastroesophageal reflux disease 09/07/2017 05/07/2021 Overview: Added automatically from request for surgery [id number] Acute pulmonary edema 01/19/20112010 Overview: 01/19/2011 cardiogenic [...] 01/12/2011 1 Overview: age 70, lives in [place], [place]. No DC needs. / Pre-op testing [...] of this encounter (statuses as of 12/23/2022) [facility] History of Past illness Narrative* Problem Noted Date Diagnosed Date Resolved Date Stasis ulcer 07/05/2022 11/04/2022 Obesity, Class II, BMI 35-39.9 04/22/2020 11/04/2022 Medicare annual wellness visit, subsequent 10/02/2018 02/18/2019 Encounter for long-term (cur rent) use of medications 09/07/2017 05/07/2021 Overview: Added automatically from request for surgery [id number] History of colonic polyps 09/07/2017 Overview: Added automatically from request for surgery [id number] Gastroesophageal reflux disease 09/07/2017 05/07/2021 Overview: Added automatically from request for surgery [id number] Acute pulmonary edema 01/19/20112010 Overview: 01/19/2011 cardiogenic [...] 01/12/2011 1 Overview: age 70, lives in [place], [place]. No DC needs. / Pre-op testing [...] of this encounter (statuses as of 12/26/2022) [facility] History of Past illness Narrative* Problem Noted Date Diagnosed Date Resolved Date Stasis ulcer 07/05/2022 11/04/2022 Obesity, Class II, BMI 35-39.9 04/22/2020 11/04/2022 Medicare annual wellness visit, subsequent 10/02/2018 02/18/2019 Encounter for long-term (cur rent) use of medications 09/07/2017 05/07/2021 Overview: Added automatically from request for surgery [id number] History of colonic polyps 09/07/2017 Overview: Added automatically from request for surgery [id number] Gastroesophageal reflux disease 09/07/2017 05/07/2021 Overview: Added automatically from request for surgery [id number] Acute pulmonary edema 01/19/20112010 Overview: 01/19/2011 cardiogenic [...] CI>2.3 Hypoxemia 01/18/2011 01/20/2011 discharge planning 01/12/2011 10/201 1 Overview: age 70, lives in [place], [place]. No DC needs. / Pre-op testing [...] of this encounter (statuses as of 12/28/2022) [facility] History of Past illness Narrative* Problem Noted Date Diagnosed Date Resolved Date Stasis ulcer 07/05/2022 11/04/2022 Obesity, Class II, BMI 35-39.9 04/22/2020 11/04/2022 Medicare annual wellness visit, subsequent 10/02/2018 02/18/2019 Encounter for long-term (cur rent) use of medications 09/07/2017 05/07/2021 Overview: Added automatically from request for surgery [id number] History of colonic polyps 09/07/2017 Overview: Added automatically from request for surgery [id number] Gastroesophageal reflux disease 09/07/2017 05/07/2021 Overview: Added automatically from request for surgery [id number] Acute pulmonary edema 01/19/20112010 Overview: 01/19/2011 cardiogenic [...] 01/12/2011 1 Overview: age 70, lives in [place], [place]. No DC needs. / Pre-op testing [...] of this encounter (statuses as of 01/02/2023) [facility] History of Past illness Narrative* Problem Noted Date Diagnosed Date Resolved Date Stasis ulcer 07/05/2022 11/04/2022 Obesity, Class II, BMI 35-39.9 04/22/2020 11/04/2022 Medicare annual wellness visit, subsequent 10/02/2018 02/18/2019 Encounter for long-term (cur rent) use of medications 09/07/2017 05/07/2021 Overview: Added automatically from request for surgery [id number] History of colonic polyps 09/07/2017 Overview: Added automatically from request for surgery [id number] Gastroesophageal reflux disease 09/07/2017 05/07/2021 Overview: Added automatically from request for surgery [id number] Acute pulmonary edema 01/19/20112010 Overview: 01/19/2011 cardiogenic [...] 01/12/2011 1 Overview: age 70, lives in [place]. No DC needs. / Pre-op testing [...] of this encounter (statuses as of 01/06/2023) [facility] History of Past illness Narrative* Problem Noted Date Diagnosed Date Resolved Date Stasis ulcer 07/05/2022 11/04/2022 Obesity, Class II, BMI 35-39.9 04/22/2020 11/04/2022 Medicare annual wellness visit, subsequent 10/02/2018 02/18/2019 Encounter for long-term (cur rent) use of medications 09/07/2017 05/07/2021 Overview: Added automatically from request for surgery [id number] History of colonic polyps 09/07/2017 Overview: Added automatically from request for surgery [id number] Gastroesophageal reflux disease 09/07/2017 05/07/2021 Overview: Added automatically from request for surgery [id number] Acute pulmonary edema 01/19/20112010 Overview: 01/19/2011 cardiogenic [...] 01/12/2011 1 Overview: age 70, lives in [place]. No DC needs. / Pre-op testing [...] of this encounter (statuses as of 01/10/2023) [facility] History of Past illness Narrative* Problem Noted Date Diagnosed Date Resolved Date Stasis ulcer 07/05/2022 11/04/2022 Obesity, Class II, BMI 35-39.9 04/22/2020 11/04/2022 Medicare annual wellness visit, subsequent 10/02/2018 02/18/2019 Encounter for long-term (cur rent) use of medications 09/07/2017 05/07/2021 Overview: Added automatically from request for surgery [id number] History of colonic polyps 09/07/2017 Overview: Added automatically from request for surgery [id number] Gastroesophageal reflux disease 09/07/2017 05/07/2021 Overview: Added automatically from request for surgery [id number] Acute pulmonary edema 01/19/20112010 Overview: 01/19/2011 cardiogenic [...] 01/12/2011 1 Overview: age 70, lives in [place]. No DC needs. / Pre-op testing [...] of this encounter (statuses as of 02/02/2023) [facility] History of Past illness Narrative* Problem Noted Date Diagnosed Date Resolved Date Stasis ulcer 07/05/2022 11/04/2022 Obesity, Class II, BMI 35-39.9 04/22/2020 11/04/2022 Medicare annual wellness visit, subsequent 10/02/2018 02/18/2019 Encounter for long-term (cur rent) use of medications 09/07/2017 05/07/2021 Overview: Added automatically from request for surgery [id number] History of colonic polyps 09/07/2017 Overview: Added automatically from request for surgery [id number] Gastroesophageal reflux disease 09/07/2017 05/07/2021 Overview: Added automatically from request for surgery [id number] Acute pulmonary edema 01/19/20112010 Overview: 01/19/2011 cardiogenic [...] 01/12/2011 1 Overview: age 70, lives in [place]. No DC needs. / Pre-op testing [...] of this encounter (statuses as of 02/19/2023) [facility] History of Past illness Narrative* Problem Noted Date Diagnosed Date Resolved Date Stasis ulcer 07/05/2022 11/04/2022 Obesity, Class II, BMI 35-39.9 04/22/2020 11/04/2022 Medicare annual wellness visit, subsequent 10/02/2018 02/18/2019 Encounter for long-term (cur rent) use of medications 09/07/2017 05/07/2021 Overview: Added automatically from request for surgery [id number] History of colonic polyps 09/07/2017 Overview: Added automatically from request for surgery [id number] Gastroesophageal reflux disease 09/07/2017 05/07/2021 Overview: Added automatically from request for surgery [id number] Acute pulmonary edema 01/19/20112010 Overview: 01/19/2011 cardiogenic [...] 01/12/2011 1 Overview: age 70, lives in [place]. No DC needs. / Pre-op testing [...] of this encounter (statuses as of 03/17/2023) [facility] History of Past illness Narrative* Problem Noted Date Diagnosed Date Resolved Date Stasis ulcer 07/05/2022 11/04/2022 Obesity, Class II, BMI 35-39.9 04/22/2020 11/04/2022 Medicare annual wellness visit, subsequent 10/02/2018 02/18/2019 Encounter for long-term (cur rent) use of medications 09/07/2017 05/07/2021 Overview: Added automatically from request for surgery [id number] History of colonic polyps 09/07/2017 Overview: Added automatically from request for surgery [id number] Gastroesophageal reflux disease 09/07/2017 05/07/2021 Overview: Added automatically from request for surgery [id number] Acute pulmonary edema 01/19/20112010 Overview: 01/19/2011 cardiogenic [...] 01/12/2011 1 Overview: age 70, lives in [place]. No DC needs. / Pre-op testing [...] as of this encounter (statuses as of 04/07/2023) [facility] History of Past illness Narrative* Problem Noted Date Diagnosed Date Resolved Date Stasis ulcer 07/05/2022 11/04/2022 Obesity, Class II, BMI 35-39.9 04/22/2020 11/04/2022 Medicare annual wellness visit, subsequent 10/02/2018 02/18/2019 Encounter for long-term (cur rent) use of medications 09/07/2017 05/07/2021 Overview: Added automatically from request for surgery [id number] History of colonic polyps 09/07/2017 Overview: Added automatically from request for surgery [id number] Gastroesophageal reflux disease 09/07/2017 05/07/2021 Overview: Added automatically from request for surgery [id number] Acute pulmonary edema 01/19/20112010 Overview: 01/19/2011 cardiogenic [...] 01/12/2011 1 Overview: age 70, lives in [place]. No DC needs. / Pre-op testing [...] as of this encounter (statuses as of 04/07/2023) [facility] History of Past illness Narrative* Problem Noted Date Diagnosed Date Resolved Date Stasis ulcer 07/05/2022 11/04/2022 Obesity, Class II, BMI 35-39.9 04/22/2020 11/04/2022 Medicare annual wellness visit, subsequent 10/02/2018 02/18/2019 Encounter for long-term (cur rent) use of medications 09/07/2017 05/07/2021 Overview: Added automatically from request for surgery [id number] History of colonic polyps 09/07/2017 Overview: Added automatically from request for surgery [id number] Gastroesophageal reflux disease 09/07/2017 05/07/2021 Overview: Added automatically from request for surgery [id number] Acute pulmonary edema 01/19/20112010 Overview: 01/19/2011 cardiogenic [...] 01/12/2011 1 Overview: age 70, lives in [place]. No DC needs. / Pre-op testing [...] as of this encounter (statuses as of 05/23/2023) [facility] History of Past illness Narrative* Problem Noted Date Diagnosed Date Resolved Date Stasis ulcer 07/05/2022 11/04/2022 Obesity, Class II, BMI 35-39.9 04/22/2020 11/04/2022 Medicare annual wellness visit, subsequent 10/02/2018 02/18/2019 Encounter for long-term (cur rent) use of medications 09/07/2017 05/07/2021 Overview: Added automatically from request for surgery [id number] History of colonic polyps 09/07/2017 Overview: Added automatically from request for surgery [id number] Gastroesophageal reflux disease 09/07/2017 05/07/2021 Overview: Added automatically from request for surgery [id number] Acute pulmonary edema 01/19/20112010 Overview: 01/19/2011 cardiogenic [...] 01/12/2011 1 Overview: age 70, lives in [place]. No DC needs. / Pre-op testing [...] as of this encounter (statuses as of 05/24/2023) [facility] History of Past illness Narrative* Problem Noted Date Diagnosed Date Resolved Date Stasis ulcer 07/05/2022 11/04/2022 Obesity, Class II, BMI 35-39.9 04/22/2020 11/04/2022 Medicare annual wellness visit, subsequent 10/02/2018 02/18/2019 Encounter for long-term (cur rent) use of medications 09/07/2017 05/07/2021 Overview: Added automatically from request for surgery [id number] History of colonic polyps 09/07/2017 Overview: Added automatically from request for surgery [id number] Gastroesophageal reflux disease 09/07/2017 05/07/2021 Overview: Added automatically from request for surgery [id number] Acute pulmonary edema 01/19/20112010 Overview: 01/19/2011 cardiogenic [...] 01/12/2011 1 Overview: age 70, lives in [place]. No DC needs. / Pre-op testing [...] as of this encounter (statuses as of 05/24/2023) [facility] * Patient Instructions* Ricky Bradley MD - 07/04/2022 7:33 PM EDT STOP FUROSEMIDE WHILE ON TORSEMIDE X 5 DAYS. 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 ferrous sulfate [...] of hand, initial encounter - ICD9: 944.20,ICD10: T23.202A - Do not puncture. If it drains, keep clean and apply antibiotic ointment. Ricky Bradley MD [facility] Miscellaneous Notes* Telephone Encounter - Nirav Jj Ma - 06/27/2022 3:17 PM EDT Faxed. * Telephone Encounter - Rosario Kasper LPN - 06/27/2022 10:55 AM EDT Monique from [facility] calling patient had called to schedule appt, they have no referral. Patient was in [facility] 06/24/2022 [facility]. Fax number is [phone], pending order needs diagnosis. Please advise [facility]23 [facility] History of Present illness Narrative* Bubba [...] (FLONASE) 50 mcg/actuation nasal spray Use 1 [place] in each nostril once daily. ferrous sulfate [...] Wt 108.2 kg (238 lb 9.6 oz) [id number]% BMI 37.37 kg/m Last 6 Encounter Wt [...] 2cm dry red based ulcer left upper nari; few millimeters of erythematoushalo. Numerous excoriation ulcers [...] recommended. He will call to schedule with [facility]. Bubba Son MD documented in this encounterSumma Health02-27-2023 Miscellaneous Notes* Telephone Encounter - Pacheco Valentin [...] you. 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 Protein electrophoresis of the urine demonstrated [...] hip pain and got relief with Absorsene . Presents for ongoing hematologic management. Interim history: He offers no complaints today. He received 10 doses of iron sucrose. Feels much better. Sensory neuropathy symptoms stable. Seen by neurology group in [place]. Was told nothing to be done for neuropathy. Uses wheeled walker. Better appetite. Gets meals on wheels. No abdominal pain or bloating. Underwent bone marrow biopsy at [facility]. ROS: Constitutional: Denies episodes of fever [...] left. Overlying pitting.Stable. SKIN: No jaundice. 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 LABS: Component Latest [...] - 4.00 k/uL 0.50 (L) 0.43 (L) [place]% % 5.6 6.2 Abs [place] <0.87 k/uL 0.26 0.24 Eosin% % 3.4 [...] Component Latest Ref Rng & Units 03/22/2022 Arbuckle Free, Serum 3.3 - 19.4 mg/L 65.0 (H) Lambda Free, Serum 5.7 - 26.3 mg/L 37.1 (H) K/L Ratio, Serum 0.26 - 1.65 1.75 (H) IgG kappa on immunofixation of serum. Component Latest Ref Rng & Units 05/02/2022 PTH, Intact 15 - 65 pg/mL 69 (H) PATHOLOGY: Bone marrow biopsy done at [facility] 05/05/2022: Hypercellular bone marrow with trilineage [...] be scheduled with GI for colonoscopy at [facility]. Could not be done here. Plan: -Follow-up [...] which included preparing to see the patient, hqej-os-ggon patient care, completing clinical documentation, obtaining and/or reviewing separately obtained history, performing a medically appropriate examination, counseling and educating the pat ient/family/caregiver, communicating with other HCPs (not separately reported), independently interpreting results (not separately reported), and communicating results to the patient/family/caregiver. Yuniel Dahl DO documented in this encounterSumma Health01-26-2023 Miscellaneous Notes* Telephone Encounter - Adriana Borjas LPN - 05/12/2022 10:03 AM EST Faxed office note and message of referral request to Dr Gaspar. fax# [phone] * Telephone Encounter - Ingrid Morales PA-C - 05/12/2022 8:17 AM EST Please fax referral request including my recent office note to Dr. Gaspar's office for EGD with possible banding of esophageal varices, and colonoscopy for anemia and history of colon polyps documented in this encounterSumma Health01-23-2023 Miscellaneous Notes* Telephone Encounter - Joan Kam [...] another iron treatment today. documented in this encounterSumma Health01-23-2023 Miscellaneous Notes* Telephone Encounter - Gayla Lincoln RN - 05/09/2022 10:34 AM EST Addressed in separate phone encounter. Gayla Lincoln RN * Telephone Encounter - Roxanna Campbell LPN - 05/09/2022 9:17 AM EST See phone note from 05/09/2022. Roxanna Campbell LPN documented in this encounterSumma Health01-19-2023 Instructions* Patient Instructions* Ricky Bradley MD - 05/05/2022 3:42 PM EST DO NOT TAKE FUROSEMIDE WHILE TAKING TORSEMIDE. START TORSEMIDE TOMORROW. START ANTIBIOTIC TONIGHT. documented in this encounterSumma Health01-19-2023 History of Present illness Narrative* Ricky Bradley MD - 05/05/2022 3:31 PM EST This note was created using DDN. Subjective Satya Medellin is a 82 year old male here with daughter. He developed an itchy rash of both legs one week ago and he was applying capsaicin and other creams with no improvement. His blood pressure continued to be low, so most medications were discontinued other than [id number] mg every other day. 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 ferrous sulfate [...] week. Ricky Bradley MD documented in this encounterSumma Health01-16-2023 History of Present illness Narrative* Ingrid Morales PA-C - 05/02/2022 1:38 PM EST HISTORY AND PHYSICAL Satya Medellin 1940 REFERRING PHYSICIAN: Yuniel Dahl DO CHIEF [...] (FLONASE) 50 mcg/actuation nasal spray Use 1 [place] in each nostril once daily. ferrous sulfate [...] entered by the nurse and reviewed by wi Nursing Notes: Priscila Rose RN 05/02/2022 1:19 [...] require banding (a procedure not performed by thegeneral surgeons), would recommend that patient have his upper and lower endoscopy performed by a chemist assistant who could perform banding at time of [...] mail. Ingrid Morales PA-C documented in this encounterSumma Health01-16-2023 Nurse Note* Priscila Rose RN - 05/02/2022 [...] 2018 Priscila Rose RN documented in this encounterSumma Health01-15-2023 Miscellaneous Notes* Telephone Encounter - Katelyn Sen - 05/01/2022 2:42 PM EST Unable to reach patient's daughter Ingris, who's number is in chart to call, just rings and no cone picker or voicemail. We can try again at a later time. Also patient is scheduled to be in the office later this week 05/06/2022, unable to determine based on the note below and patient's appointment desk what things have been schedule and what still needs scheduled. Katelyn Sen * Telephone Encounter - Joan Kam - 04/22/2022 4:58 PM ESTSummary: SHAE 04/22/22 Check out comments: Labs today. MRI Liver when able--patient would like done at [facility]--open MRI. Referral to Dr. Dsouza for EGD/colonoscopy--possible varices. CT guided bone marrow biopsy at [facility] when able. Hold ASA 1 week prior. Referral to hepatology for cirrhosis. Schedule for 10 doses iron sucrose. CBC/CMP/Myeloma labs then OV after completes iron sucrose. documented in this encounterSumma Health01-07-2023 History of Present illness Narrative* Kai Poon PA-C - 04/23/2022 10:20 AM EST VIRTUAL [...] cirrhosis. Patient was last seen by GI [facility] Sandrine Avila September 2020. Here at request [...] CT images from 2013 and 2014. In 2013, spleen measured up to about 16 cm [...] (FLONASE) 50 mcg/actuation nasal spray Use 1 [place] in each nostril once daily. 3 Each [...] nausea, vomiting, or diarrhea : Not reviewed STAGE HAND: Not reviewed PHYSICAL FINDINGS OF NOTE: General [...] appearing strength and coordination REVIEWED ITEMS RUQ 03/2022: IMPRESSION: 1. There is a new [...] Continue present medications. - Return to physician family practice physician assistant in 1 week. Colonoscopy September 2017: [...] cont now (may need general anesthesia at main campus vs lorazepam 1 hour before MRI, will [...] which included preparing to see the patient, [id number]-vt-[id number] patient care, completing clinical documentation, obtaining and/or reviewing separately obtained history, performing a medically appropriate examination, counseling and educating the pat ient/family/caregiver, ordering medications, tests, or procedures, communicating with other HCPs (not separately reported), and communicating results to the patient/family/caregiver. Kai Poon PA-C April 23, 2022 11:17 AM documented in this encounterSumma Health12-09-2022 History of Present illness Narrative* Mimi Castano, SARAHIN - 03/25/2022 9:15 AM EST Radiology Service [...] 25, 2022 10:00 AM documented in this encounterSumma Health12-06-2022 History of Present illness Narrative* Yuniel Dahl, [...] He had lab work ordered at his health sciences department chair office. Protein electrophoresis of the urine demonstrated [...] (FLONASE) 50 mcg/actuation nasal spray Use 1 [place] in each nostril once daily. ferrous sulfate [...] left. Overlying pitting. SKIN: No jaundice. 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 He is not [...] which included preparing to see the patient, yoge-xi-cyvl patient care, completing clinical documentation, obtaining and/or reviewing separately obtained history, performing a medically appropriate examination, counseling and educating the pat ient/family/caregiver, ordering medications, tests, or procedures, communicating with other HCPs (not separately reported), independently interpreting results (not separately reported), communicatingresults to the patient/family/caregiver, and care coordination (not separately reported). Yuniel Dahl DO documented in this encounterSumma Health11-21-2022 Miscellaneous Notes* Telephone Encounter - Estelita Baig LPN - 03/07/2022 10:01 AM EST pcp reviewed the rehabilitation and sport therapy note pt was seen there for driving assessment. Pcp signed form. This has been faxed back to [facility] at [phone] documented in this encounterSumma Health11-14-2022 NoteHNO ID: [id number] Author: Radha Barker, OT/L Service: ? Author Type: Occupational Therapist [...] Environment Patient Lives With: Self/Alone Assistance Available: Part-Time;Outreach Professional (daughter involved living around the corner from patient and seeing him/checking in frequently) Home Type: Multi-Level Transportation: Travels as a passenger;[facility] Patient Goals: to return to driving Intake Information: Prescription present Falls Interview: Two or more falls in the last year Relevant History Past Relevant Medical Conditions: Arthritis;Cerebral Vascular Accident;Falls;Hypertension;Depression;Neuropathy Highest Level of Education: Trade School Preferred Language: Citizen [place] Right or Left Handed: Right 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) Recreation / Current Exercise: no current exercise Hobbies / Interests: reads devotionals and cookbooks; rather sedentary Home Environment Patient Lives With: Self/Alone Assistance Available: Part-Time;Outreach Professional (daughter involved living around the corner from [...] Driving History: 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 State: [place] License/Permit #: [id number] Expires: 04/20/24 Restrictions: corrective lenses; 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 [...] Marginal while significant contractures/tone in L hand Wind Turbine Installer: functional for R hand while decreased for [...] Pass Contrast Sensitivity: mini (more content not included)...[facility] 02-28-2022 History of Present illness Narrative* Radha Barker, OT/L - 02/28/2022 4:50 PM EST Episode Visit [...] Environment Patient Lives With: Self/Alone Assistance Available: Part-Time;Outreach Professional (daughter involved living around the corner from patient and seeing him/checking in frequently) Home Type: Multi-Level Transportation: Travels as a passenger;SUV Patient Goals: to return to driving Intake Information: Prescription present Falls Interview: Two or more falls in the last year Relevant History Past Relevant Medical Conditions: Arthritis;Cerebral Vascular Accident;Falls;Hypertension;Depression;Neuropathy Highest Level of Education: Trade School Preferred Language: Citizen [place] Right or Left Handed: Right 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) Recreation / Current Exercise: no current exercise Hobbies / Interests: reads devotionals and cookbooks; rather sedentary Home Environment Patient Lives With: Self/Alone Assistance Available: Part-Time;Outreach Professional (daughter involved living around the corner from [...] 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 He failed to include or correctly place: all 12 hours in correct numeric order, starting with 12 at the top only the numbers 1-12 (no duplicates, omissions, or foreign markings) the numbers equally, or nearly so, from each other the numbers equally spaced, or nearly so, from the edge of the [place] one clock hand at the two o'clock [...] FUNCTION: Not Suggestive of Safe Driving Potential [place] Editorial Assistant Simulator: Simple Brake Reaction Time: Average [...] Response to Education/Teach Back: States/Identifies TREATMENT: Evaluation Self-Fdc Management: 1: refer to documentation for details [...] this report indicates the 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 THIS THERAPIST WILL PROVIDE PHYSICIAN WITH [facility] REPORTING INFORMATION SO THAT LICENSE SUSPENSION [...] (timed/untimed) 135 minutes Evaluation - Moderate Complexity (24390) Self Care / Home Management (77190): 1:1 time: 75 minutes (5 units: 68-82 mins) Total time: 135 minutes Radha Barker, OT/L, CDRS, CDI Certified Editorial Assistant Replanting Machine Crew documented in this encounterSumma Health11-07-2022 Miscellaneous Notes* Telephone Encounter - Ama Masters [...] DX: ABNORMAL ELECTROPHORESIS/LOW HEMOGLOBIN REF PROV: SERA ARMEN INS: MEDICARE A & B/MMO SUPPLEMENT Radha Lackey documented in this encounterSumma Health11-03-2022 Miscellaneous Notes* Telephone Encounter - Ingrid Dacosta RN - 02/17/2022 8:49 AM EDT Pts daughter called and is notified of providers message and instructions. She voices understanding. Ingrid Dacosta RN * Telephone Encounter - Ricky Bradley MD - 02/16/2022 6:16 PM EDT Noted carvedilol discontinued. Continue to monitor BP and call nephrology or here for concerns. * Telephone Encounter - Teresa Sen - 02/16/2022 1:05 PM EDT Daughter Ingris is calling in regards to patient seeing kidney doctor Dr Sera Carreno at [facility] yesterday. She states BP was [...] fax to our office. documented in this encounterSumma Health10-17-2022 Instructions* Patient Instructions* Ricky Bradley MD - 01/31/2022 2:53 PM EDT DISCONTINUE LISINOPRIL. documented in this encounterSumma Health10-17-2022 History of Present illness Narrative* Ricky Bradley MD - 01/31/2022 2:34 PM EDT This note was created using Whatserriter. Subjective Satya Medellin is a 81 year old male here with daughter. He fell again and was in the ER 12/08 forhead injury. He was scheduled with neurology. His hypertension was still well controlled on one half dose of lisinopril. He was scheduled to see his health sciences department chair in 2 weeks. 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 ferrous sulfate [...] ICD9: 781.2, ICD10: R26.9 - CONSULT TO DIRECTOR OF SUSTAINABILITY PROGRAMS 3. Stage 3a chronic kidney disease (HCC) - ICD9: 585.3, ICD10: N18.31 - eGFR: Stable - Discontinue LISINOPRIL. - BASIC METABOLIC PNL in 2 weeks. - Nephrology in 2 weeks. 4. Essential hypertension - ICD9: 401.9, ICD10: I10 - good control - See #3. Ricky Bradley MD documented in this encounterSumma Health10-12-2022 Miscellaneous Notes* HH PT DISCHARGE - Leda Christensen, PT - 01/26/2022 10:41 AM EDT SITUATION: [...] would be a maintenance situation. He has CUSTOMER FIELD REPRESENTATIVE from the [place] that are allowed to [...] summary for intervention/education details. documented in this encounterSumma Health10-10-2022 Miscellaneous Notes* PT ROUTINE/REASSESSMENT/RECERT/CASE MGMT - Raquel Bravo PTA - 01/24/2022 8:53 AM EDT SITUATION: private [...] summary for intervention/education details. documented in this encounterSumma Health10-07-2022 Miscellaneous Notes* PT ROUTINE/REASSESSMENT/RECERT/CASE MGMT - Raquel [...] summary for intervention/education details. documented in this encounterSumma Health10-05-2022 Miscellaneous Notes* Telephone Encounter - Ingrid Dacosta RN - 01/19/2022 3:02 PM EDT Called and left a voicemail for the Patient's daughter to call back and ask for a nurse to receive the providers message. Faxed orders, last OV note, labs, and x-rays to [facility] at fax # [phone]. Ingrid Dacosta RN * Telephone Encounter - [...] would want it to be sent to [facility]. Fax number is [phone]. Phone number is [phone]. Please review and advise, Paradise Masterson RN documented in this encounterSumma Health10-05-2022 Miscellaneous Notes* Telephone Encounter - Raquel Bravo PTA - 01/19/2022 2:35 PM EDT Patient reported he fell on Monday when ambulating outside of home. Denies injury and was able to complete PT today without concerns. Thanks documented in this encounterSumma Health10-03-2022 Miscellaneous Notes* Telephone Encounter - Nirav Jj Ma - 01/17/2022 1:03 PM EDT Okay given to Jacquelin. Nirav Jj Ma * Telephone Encounter - Jenny Aviles APRN.CNP - 01/17/2022 12:18 PM EDT Olu Aviles APRN.CNP * Telephone Encounter - Rosario Kasper LPN - 01/13/2022 1:04 PM EDT Jacquelin from [facility] Home [facility] PT calling she did her re-assessment and would like to continue visits 2 times weekly for 2 more weeks. She is asking for verbal order please. If have problem reaching her onwork phone can call her person phone number. Please advise documented in this encounterSumma Health09-29-2022 Miscellaneous Notes* PT ROUTINE/REASSESSMENT/RECERT/CASE MGMT - Jacquelin [...] summary for intervention/education details. documented in this encounterSumma Health09-27-2022 Miscellaneous Notes* PT ROUTINE/REASSESSMENT/RECERT/CASE MGMT - Raquel Bravo PTA - 01/11/2022 8:56 AM EDT SITUATION: only [...] summary for intervention/education details. documented in this encounterSumma Health09-21-2022 Miscellaneous Notes* PT ROUTINE/REASSESSMENT/RECERT/CASE MGMT - Leda [...] summary for intervention/education details. documented in this encounterSumma Health09-19-2022 Miscellaneous Notes* PT ROUTINE/REASSESSMENT/RECERT/CASE MGMT - Raquel [...] summary for intervention/education details. documented in this encounterSumma Health09-16-2022 Miscellaneous Notes* PT ROUTINE/REASSESSMENT/RECERT/CASE MGMT - Leda [...] summary for intervention/education details. documented in this encounterSumma Health09-13-2022 Miscellaneous Notes* PT ROUTINE/REASSESSMENT/RECERT/CASE MGMT - Raquel Bravo, ELECTRICAL FITTER - 12/28/2021 2:00 PM EDT SITUATION: only [...] summary for intervention/education details. documented in this encounterSumma Health09-08-2022 Miscellaneous Notes* PT ROUTINE/REASSESSMENT/RECERT/CASE MGMT - Raquel Bravo, MIKE - 12/23/2021 10:29 AM EDT SITUATION: private [...] summary for intervention/education details. documented in this encounterSumma Health09-06-2022 Miscellaneous Notes* PT ROUTINE/REASSESSMENT/RECERT/CASE MGMT - Leda CassidyteresapaulIra, PT - 12/21/2021 10:21 AM EDT SITUATION: [...] Colon Polyp Thrombocytopenia CAD (Coronary Artery Disease), [place] Coronary Artery Adjustment Disorder With Depr essed [...] summary for intervention/education details. documented in this encounterSumma Health09-02-2022 Miscellaneous Notes* PT SOC/HODA/FOLLOW UP/OTHER - Leda [...] Colon Polyp Thrombocytopenia CAD (Coronary Artery Disease), [place] Coronary Artery Adjustment Disorder With Depr essed Mood Asthma Exacerbation Peripheral Polyneuropathy Splenomegaly CKD (Chronic Kidney Disease) Stage 3, GFR 30-59 mL/min Anemia of Chronic Disease Urge Incontinence of Urine Obesity, Class II, BMI 35-39.9 Weight Bearing or Surgical Precautions: none ASSESSMENT: Patient evaluated by [facility] physical therapy. Reviewed and explained homecare [...] summary for intervention/education details. documented in this encounterSumma Health08-29-2022 Miscellaneous Notes* Telephone Encounter - rKystal Johnson RN - 12/13/2021 1:02 PM EDT [...] and down the stairs to the camper. Anegl asking about patient continuing to drive and orders for HH therapy. Notified Angel that patient would be notified from [facility] as referral is still active. Paradise Masterson RN * Telephone Encounter - Krystal Johnson RN - 12/08/2021 4:31 PM EDT Patient's daughter calling to let PCP know that patient fell today and landed on his back and hit the back of his head/neck on a door. He is @ [facility] ER and has had a CT scan. His main complaint is neckpain. She says they have been unable to start PT due to more information needed. Please see Home Care note in Epic from Jacinda Barrett LPN sent yesterday. Daughter is requesting call back when PT can be initiated. Krystal Johnson, RN documented in this encounterSumma Health08-29-2022 Miscellaneous Notes* Telephone Encounter - Jacquelin Browne - 12/13/2021 9:47 AM EDT Welcome Home Call: a. Date and Time: 9:48 AM 12/13/2021 b. Contact name/relationship: Satya kong. Have you been active with any Home Care company in the last 60 days(such as help with bathing, filling medications, checking your blood pressure) ? No. d. [facility] will be providing your care, [...] maintain a safe environment for our caregivers, [facility] requires anyanimals or weapons present in the home be located in a secured location. Our clinicians will call you the night before or the morning of the appointment. Their # may come up restricted but they'll leave a VM for you. In case you have any questions or concerns in the meantime, our # is [phone], option 1 Thank you for your time and have a great day. Jacquelin Browne documented in this encounterSumma Health08-23-2022 Miscellaneous Notes* Telephone Encounter - Jacinda Barrett [...] date noted. If you have any questions, [facility] Home Care Intake can be reached at [phone]. Thank you in advance. Jacinda Barrett LPN Central Admissions Intake Nurse [phone] documented in this encounterSumma Health08-04-2022 Miscellaneous Notes* Telephone Encounter - Carol Robertson [...] function okay and stable. documented in this encounterSumma Health07-21-2022 Instructions* Patient Instructions* Ricky Bradley MD - 11/04/2021 10:13 AM EDT BLOOD TEST TODAY, NON FASTING. documented in this encounterSumma Health07-21-2022 History of Present illness Narrative* Ricky Bradley MD - 11/04/2021 10:04 AM EDT This note was created using DDN. 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 ferrous sulfate [...] Recheck. Ricky Bradley MD documented in this encounterSumma Health06-29-2022 Miscellaneous Notes* Telephone Encounter - Mary Pinon [...] back to schedule it. documented in this encounterSumma Health06-24-2022 Miscellaneous Notes* Telephone Encounter - Ingrid Dacosta, RN - 10/08/2021 3:00 PM EDT Pt reports he was told by an MEDICAL NUMERICAL CONTROL OPERATOR at the [place] to stop taking [...] 10/27/2020 31 Please advise. Thank you. Ingrid Dacosta RN documented in this encounterSumma Health03-22-2022 Miscellaneous Notes* Telephone Encounter - Jenny Aviles [...] PCP. Kaylie Radford LPN documented in this encounter[facility] History of Present illness Narrative* Kaylie Radford [...] PCP. Kaylie Radford LPN documented in this encounterSum[facility]01-06-[facility]21 History of Past illness Narrative* Problem Noted Date Diagnosed Date Resolved Date Obesity, Class II, BMI 35-39.9 04/22/2020 11/04/2022 Medicare annual wellness visit, subsequent 10/02/2018 02/18/2019 Encounter for long-term (cur rent) use of medications 09/07/2017 05/07/2021 Overview: Added automatically from request for surgery [id number] History of colonic polyps 09/07/2017 Overview: Added automatically from request for surgery [id number] Gastroesophageal reflux disease 09/07/2017 05/07/2021 Overview: Added automatically from request for surgery [id number] Acute pulmonary edema 01/19/20112010 Overview: 01/19/2011 cardiogenic [...] 01/12/2011 1 Overview: age 70, lives in [place], [place]. No DC needs. / Pre-op testing [...] of this encounter (statuses as of 02/19/2023) [facility] History of Past illness Narrative* Problem Noted Date Resolved Date Medicare annual wellness visit, subsequent 10/0202/18/2019 Encounter for long-term (current) use of medicat ions 09/07/2017 05/07/2021 Overview: Added automatically from request for surgery [id number] History of colonic polyps 09/07/20172021 Overview: Added automatically from request for surgery [id number] Gastroesophageal reflux disease 09/07/2017 05/07/2021 Overview: Added automatically from request for surgery [id number] Acute pulmonary edema 01/19/2011 01/20/2011 Overview: 01/19/2011 [...] 01/12/2011 02/02/2011 Overview: age 70, lives in [place], [place]. No DC needs. / Pre-op testing [...] of this encounter (statuses as of 07/06/2021) [facility] History of Past illness Narrative* Problem Noted Date Resolved Date Medicare annual wellness visit, subsequent 10/0202/18/2019 Encounter for long-term (current) use of medicat ions 09/07/2017 05/07/2021 Overview: Added automatically from request for surgery [id number] History of colonic polyps 09/07/20172021 Overview: Added automatically from request for surgery [id number] Gastroesophageal reflux disease 09/07/2017 05/07/2021 Overview: Added automatically from request for surgery [id number] Acute pulmonary edema 01/19/2011 01/20/2011 Overview: 01/19/2011 [...] 01/12/2011 02/02/2011 Overview: age 70, lives in [place], [place]. No DC needs. / Pre-op testing [...] of this encounter (statuses as of 07/06/2021) [facility] Narrative* Problem Noted Date Resolved Date Medicare annual wellness visit, subsequent 10/0202/18/2019 Encounter for long-term (current) use of medicat ions 09/07/2017 05/07/2021 Overview: Added automatically from request for surgery [id number] History of colonic polyps 09/07/20172021 Overview: Added automatically from request for surgery [id number] Gastroesophageal reflux disease 09/07/2017 05/07/2021 Overview: Added automatically from request for surgery [id number] Acute pulmonary edema 01/19/2011 01/20/2011 Overview: 01/19/2011 [...] 01/12/2011 02/02/2011 Overview: age 70, lives in [place], [place]. No DC needs. / Pre-op testing [...] of this encounter (statuses as of 10/09/2021) [facility] Narrative* Problem Noted Date Resolved Date Medicare annual wellness visit, subsequent 10/0202/18/2019 Encounter for long-term (current) use of medicat ions 09/07/2017 05/07/2021 Overview: Added automatically from request for surgery [id number] History of colonic polyps 09/07/20172021 Overview: Added automatically from request for surgery [id number] Gastroesophageal reflux disease 09/07/2017 05/07/2021 Overview: Added automatically from request for surgery [id number] Acute pulmonary edema 01/19/2011 01/20/2011 Overview: 01/19/2011 [...] 01/12/2011 02/02/2011 Overview: age 70, lives in [place], [place]. No DC needs. / Pre-op testing [...] of this encounter (statuses as of 10/13/2021) [facility] Narrative* Problem Noted Date Resolved Date Medicare annual wellness visit, subsequent 10/0202/18/2019 Encounter for long-term (current) use of medicat ions 09/07/2017 05/07/2021 Overview: Added automatically from request for surgery [id number] History of colonic polyps 09/07/20172021 Overview: Added automatically from request for surgery [id number] Gastroesophageal reflux disease 09/07/2017 05/07/2021 Overview: Added automatically from request for surgery [id number] Acute pulmonary edema 01/19/2011 01/20/2011 Overview: 01/19/2011 [...] 01/12/2011 02/02/2011 Overview: age 70, lives in [place], [place]. No DC needs. / Pre-op testing [...] of this encounter (statuses as of 11/04/2021) [facility] Narrative* Problem Noted Date Resolved Date Medicare annual wellness visit, subsequent 10/0202/18/2019 Encounter for long-term (current) use of medicat ions 09/07/2017 05/07/2021 Overview: Added automatically from request for surgery [id number] History of colonic polyps 09/07/20172021 Overview: Added automatically from request for surgery [id number] Gastroesophageal reflux disease 09/07/2017 05/07/2021 Overview: Added automatically from request for surgery [id number] Acute pulmonary edema 01/19/2011 01/20/2011 Overview: 01/19/2011 [...] 01/12/2011 02/02/2011 Overview: age 70, lives in [place]. No DC needs. / Pre-op testing [...] of this encounter (statuses as of 11/18/2021) [facility] Narrative* Problem Noted Date Resolved Date Medicare annual wellness visit, subsequent 10/0202/18/2019 Encounter for long-term (current) use of medicat ions 09/07/2017 05/07/2021 Overview: Added automatically from request for surgery [id number] History of colonic polyps 09/07/20172021 Overview: Added automatically from request for surgery [id number] Gastroesophageal reflux disease 09/07/2017 05/07/2021 Overview: Added automatically from request for surgery [id number] Acute pulmonary edema 01/19/2011 01/20/2011 Overview: 01/19/2011 [...] 01/12/2011 02/02/2011 Overview: age 70, lives in [place]. No DC needs. / Pre-op testing [...] of this encounter (statuses as of 12/13/2021) [facility] Narrative* Problem Noted Date Resolved Date Medicare annual wellness visit, subsequent 10/0202/18/2019 Encounter for long-term (current) use of medicat ions 09/07/2017 05/07/2021 Overview: Added automatically from request for surgery [id number] History of colonic polyps 09/07/20172021 Overview: Added automatically from request for surgery [id number] Gastroesophageal reflux disease 09/07/2017 05/07/2021 Overview: Added automatically from request for surgery [id number] Acute pulmonary edema 01/19/2011 01/20/2011 Overview: 01/19/2011 [...] 01/12/2011 02/02/2011 Overview: age 70, lives in [place]. No DC needs. / Pre-op testing [...] of this encounter (statuses as of 12/13/2021) [facility] Narrative* Problem Noted Date Resolved Date Medicare annual wellness visit, subsequent 10/0202/18/2019 Encounter for long-term (current) use of medicat ions 09/07/2017 05/07/2021 Overview: Added automatically from request for surgery [id number] History of colonic polyps 09/07/20172021 Overview: Added automatically from request for surgery [id number] Gastroesophageal reflux disease 09/07/2017 05/07/2021 Overview: Added automatically from request for surgery [id number] Acute pulmonary edema 01/19/2011 01/20/2011 Overview: 01/19/2011 [...] 01/12/2011 02/02/2011 Overview: age 70, lives in [place]. No DC needs. / Pre-op testing [...] of this encounter (statuses as of 12/15/2021) [facility] Narrative* Problem Noted Date Resolved Date Medicare annual wellness visit, subsequent 10/0202/18/2019 Encounter for long-term (current) use of medicat ions 09/07/2017 05/07/2021 Overview: Added automatically from request for surgery [id number] History of colonic polyps 09/07/20172021 Overview: Added automatically from request for surgery [id number] Gastroesophageal reflux disease 09/07/2017 05/07/2021 Overview: Added automatically from request for surgery [id number] Acute pulmonary edema 01/19/2011 01/20/2011 Overview: 01/19/2011 [...] 01/12/2011 02/02/2011 Overview: age 70, lives in [place]. No DC needs. / Pre-op testing [...] of this encounter (statuses as of 12/15/2021) [facility] Narrative* Problem Noted Date Resolved Date Medicare annual wellness visit, subsequent 10/0202/18/2019 Encounter for long-term (current) use of medicat ions 09/07/2017 05/07/2021 Overview: Added automatically from request for surgery [id number] History of colonic polyps 09/07/20172021 Overview: Added automatically from request for surgery [id number] Gastroesophageal reflux disease 09/07/2017 05/07/2021 Overview: Added automatically from request for surgery [id number] Acute pulmonary edema 01/19/2011 01/20/2011 Overview: 01/19/2011 [...] 01/12/2011 02/02/2011 Overview: age 70, lives in [place]. No DC needs. / Pre-op testing [...] of this encounter (statuses as of 12/17/2021) [facility] Narrative* Problem Noted Date Resolved Date Medicare annual wellness visit, subsequent 10/0202/18/2019 Encounter for long-term (current) use of medicat ions 09/07/2017 05/07/2021 Overview: Added automatically from request for surgery [id number] History of colonic polyps 09/07/20172021 Overview: Added automatically from request for surgery [id number] Gastroesophageal reflux disease 09/07/2017 05/07/2021 Overview: Added automatically from request for surgery [id number] Acute pulmonary edema 01/19/2011 01/20/2011 Overview: 01/19/2011 [...] 01/12/2011 02/02/2011 Overview: age 70, lives in [place]. No DC needs. / Pre-op testing [...] of this encounter (statuses as of 12/21/2021) [facility] Narrative* Problem Noted Date Resolved Date Medicare annual wellness visit, subsequent 10/0202/18/2019 Encounter for long-term (current) use of medicat ions 09/07/2017 05/07/2021 Overview: Added automatically from request for surgery [id number] History of colonic polyps 09/07/20172021 Overview: Added automatically from request for surgery [id number] Gastroesophageal reflux disease 09/07/2017 05/07/2021 Overview: Added automatically from request for surgery [id number] Acute pulmonary edema 01/19/2011 01/20/2011 Overview: 01/19/2011 [...] 01/12/2011 02/02/2011 Overview: age 70, lives in [place]. No DC needs. / Pre-op testing [...] of this encounter (statuses as of 12/23/2021) [facility] Narrative* Problem Noted Date Resolved Date Medicare annual wellness visit, subsequent 10/0202/18/2019 Encounter for long-term (current) use of medicat ions 09/07/2017 05/07/2021 Overview: Added automatically from request for surgery [id number] History of colonic polyps 09/07/20172021 Overview: Added automatically from request for surgery [id number] Gastroesophageal reflux disease 09/07/2017 05/07/2021 Overview: Added automatically from request for surgery [id number] Acute pulmonary edema 01/19/2011 01/20/2011 Overview: 01/19/2011 [...] 01/12/2011 02/02/2011 Overview: age 70, lives in [place], [place]. No DC needs. / Pre-op testing [...] of this encounter (statuses as of 12/28/2021) [facility] Narrative* Problem Noted Date Resolved Date Medicare annual wellness visit, subsequent 10/0202/18/2019 Encounter for long-term (current) use of medicat ions 09/07/2017 05/07/2021 Overview: Added automatically from request for surgery [id number] History of colonic polyps 09/07/20172021 Overview: Added automatically from request for surgery [id number] Gastroesophageal reflux disease 09/07/2017 05/07/2021 Overview: Added automatically from request for surgery [id number] Acute pulmonary edema 01/19/2011 01/20/2011 Overview: 01/19/2011 [...] 01/12/2011 02/02/2011 Overview: age 70, lives in [place]. No DC needs. / Pre-op testing [...] of this encounter (statuses as of 12/31/2021) [facility] Narrative* Problem Noted Date Resolved Date Medicare annual wellness visit, subsequent 10/0202/18/2019 Encounter for long-term (current) use of medicat ions 09/07/2017 05/07/2021 Overview: Added automatically from request for surgery [id number] History of colonic polyps 09/07/20172021 Overview: Added automatically from request for surgery [id number] Gastroesophageal reflux disease 09/07/2017 05/07/2021 Overview: Added automatically from request for surgery [id number] Acute pulmonary edema 01/19/2011 01/20/2011 Overview: 01/19/2011 [...] 01/12/2011 02/02/2011 Overview: age 70, lives in [place]. No DC needs. / Pre-op testing [...] of this encounter (statuses as of 01/03/2022) [facility] Narrative* Problem Noted Date Resolved Date Medicare annual wellness visit, subsequent 10/0202/18/2019 Encounter for long-term (current) use of medicat ions 09/07/2017 05/07/2021 Overview: Added automatically from request for surgery [id number] History of colonic polyps 09/07/20172021 Overview: Added automatically from request for surgery [id number] Gastroesophageal reflux disease 09/07/2017 05/07/2021 Overview: Added automatically from request for surgery [id number] Acute pulmonary edema 01/19/2011 01/20/2011 Overview: 01/19/2011 [...] 01/12/2011 02/02/2011 Overview: age 70, lives in [place]. No DC needs. / Pre-op testing [...] of this encounter (statuses as of 01/06/2022) [facility] Narrative* Problem Noted Date Resolved Date Medicare annual wellness visit, subsequent 10/0202/18/2019 Encounter for long-term (current) use of medicat ions 09/07/2017 05/07/2021 Overview: Added automatically from request for surgery [id number] History of colonic polyps 09/07/20172021 Overview: Added automatically from request for surgery [id number] Gastroesophageal reflux disease 09/07/2017 05/07/2021 Overview: Added automatically from request for surgery [id number] Acute pulmonary edema 01/19/2011 01/20/2011 Overview: 01/19/2011 [...] 01/12/2011 02/02/2011 Overview: age 70, lives in [place]. No DC needs. / Pre-op testing [...] of this encounter (statuses as of 01/11/2022) [facility] Narrative* Problem Noted Date Resolved Date Medicare annual wellness visit, subsequent 10/0202/18/2019 Encounter for long-term (current) use of medicat ions 09/07/2017 05/07/2021 Overview: Added automatically from request for surgery [id number] History of colonic polyps 09/07/20172021 Overview: Added automatically from request for surgery [id number] Gastroesophageal reflux disease 09/07/2017 05/07/2021 Overview: Added automatically from request for surgery [id number] Acute pulmonary edema 01/19/2011 01/20/2011 Overview: 01/19/2011 [...] 01/12/2011 02/02/2011 Overview: age 70, lives in [place]. No DC needs. / Pre-op testing [...] of this encounter (statuses as of 01/16/2022) [facility] Narrative* Problem Noted Date Resolved Date Medicare annual wellness visit, subsequent 10/0202/18/2019 Encounter for long-term (current) use of medicat ions 09/07/2017 05/07/2021 Overview: Added automatically from request for surgery [id number] History of colonic polyps 09/07/20172021 Overview: Added automatically from request for surgery [id number] Gastroesophageal reflux disease 09/07/2017 05/07/2021 Overview: Added automatically from request for surgery [id number] Acute pulmonary edema 01/19/2011 01/20/2011 Overview: 01/19/2011 [...] 01/12/2011 02/02/2011 Overview: age 70, lives in [place]. No DC needs. / Pre-op testing [...] of this encounter (statuses as of 01/17/2022) [facility] Narrative* Problem Noted Date Resolved Date Medicare annual wellness visit, subsequent 10/0202/18/2019 Encounter for long-term (current) use of medicat ions 09/07/2017 05/07/2021 Overview: Added automatically from request for surgery [id number] History of colonic polyps 09/07/20172021 Overview: Added automatically from request for surgery [id number] Gastroesophageal reflux disease 09/07/2017 05/07/2021 Overview: Added automatically from request for surgery [id number] Acute pulmonary edema 01/19/2011 01/20/2011 Overview: 01/19/2011 [...] 01/12/2011 02/02/2011 Overview: age 70, lives in [place]. No DC needs. / Pre-op testing [...] of this encounter (statuses as of 01/18/2022) [facility] Narrative* Problem Noted Date Resolved Date Medicare annual wellness visit, subsequent 10/0202/18/2019 Encounter for long-term (current) use of medicat ions 09/07/2017 05/07/2021 Overview: Added automatically from request for surgery [id number] History of colonic polyps 09/07/20172021 Overview: Added automatically from request for surgery [id number] Gastroesophageal reflux disease 09/07/2017 05/07/2021 Overview: Added automatically from request for surgery [id number] Acute pulmonary edema 01/19/2011 01/20/2011 Overview: 01/19/2011 [...] 01/12/2011 02/02/2011 Overview: age 70, lives in [place]. No DC needs. 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, Class III, BMI 40-49.9 (morbid obesity) 04/22/2020 documented as of this encounter (statuses as of 01/19/2022) [facility]* Problem Noted Date Resolved Date Medicare annual wellness visit, subsequent 10/0202/18/2019 Encounter for long-term (current) use of medicat ions 09/07/2017 05/07/2021 Overview: Added automatically from request for surgery [id number] History of colonic polyps 09/07/20172021 Overview: Added automatically from request for surgery [id number] Gastroesophageal reflux disease 09/07/2017 05/07/2021 Overview: Added automatically from request for surgery [id number] Acute pulmonary edema 01/19/2011 01/20/2011 Overview: 01/19/2011 [...] 01/12/2011 02/02/2011 Overview: age 70, lives in [place]. No DC needs. / Pre-op testing [...] of this encounter (statuses as of 01/21/2022) [facility] Narrative* Problem Noted Date Resolved Date Medicare annual wellness visit, subsequent 10/0202/18/2019 Encounter for long-term (current) use of medicat ions 09/07/2017 05/07/2021 Overview: Added automatically from request for surgery [id number] History of colonic polyps 09/07/20172021 Overview: Added automatically from request for surgery [id number] Gastroesophageal reflux disease 09/07/2017 05/07/2021 Overview: Added automatically from request for surgery [id number] Acute pulmonary edema 01/19/2011 01/20/2011 Overview: 01/19/2011 [...] 01/12/2011 02/02/2011 Overview: age 70, lives in [place]. No DC needs. 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, Class III, BMI 40-49.9 (morbid obesity) 04/22/2020 documented as of this encounter (statuses as of 01/24/2022) [facility]* Problem Noted Date Resolved Date Medicare annual wellness visit, subsequent 10/0202/18/2019 Encounter for long-term (current) use of medicat ions 09/07/2017 05/07/2021 Overview: Added automatically from request for surgery [id number] History of colonic polyps 09/07/20172021 Overview: Added automatically from request for surgery [id number] Gastroesophageal reflux disease 09/07/2017 05/07/2021 Overview: Added automatically from request for surgery [id number] Acute pulmonary edema 01/19/2011 01/20/2011 Overview: 01/19/2011 [...] 01/12/2011 02/02/2011 Overview: age 70, lives in [place]. No DC needs. / Pre-op testing [...] of this encounter (statuses as of 01/24/2022) [facility]arrative* Problem Noted Date Resolved Date Medicare annual wellness visit, subsequent 10/0202/18/2019 Encounter for long-term (current) use of medicat ions 09/07/2017 05/07/2021 Overview: Added automatically from request for surgery [id number] History of colonic polyps 09/07/20172021 Overview: Added automatically from request for surgery [id number] Gastroesophageal reflux disease 09/07/2017 05/07/2021 Overview: Added automatically from request for surgery [id number] Acute pulmonary edema 01/19/2011 01/20/2011 Overview: 01/19/2011 [...] 01/12/2011 02/02/2011 Overview: age 70, lives in [place]. No DC needs. / Pre-op testing [...] of this encounter (statuses as of 01/26/2022) [facility] Narrative* Problem Noted Date Resolved Date Medicare annual wellness visit, subsequent 10/0202/18/2019 Encounter for long-term (current) use of medicat ions 09/07/2017 05/07/2021 Overview: Added automatically from request for surgery [id number] History of colonic polyps 09/07/20172021 Overview: Added automatically from request for surgery [id number] Gastroesophageal reflux disease 09/07/2017 05/07/2021 Overview: Added automatically from request for surgery [id number] Acute pulmonary edema 01/19/2011 01/20/2011 Overview: 01/19/2011 [...] 01/12/2011 02/02/2011 Overview: age 70, lives in [place]. No DC needs. / Pre-op testing [...] of this encounter (statuses as of 01/31/2022) [facility]* Problem Noted Date Resolved Date Medicare annual wellness visit, subsequent 10/0202/18/2019 Encounter for long-term (current) use of medicat ions 09/07/2017 05/07/2021 Overview: Added automatically from request for surgery [id number] History of colonic polyps 09/07/20172021 Overview: Added automatically from request for surgery [id number] Gastroesophageal reflux disease 09/07/2017 05/07/2021 Overview: Added automatically from request for surgery [id number] Acute pulmonary edema 01/19/2011 01/20/2011 Overview: 01/19/2011 [...] 01/12/2011 02/02/2011 Overview: age 70, lives in [place]. No DC needs. / Pre-op testing [...] of this encounter (statuses as of 02/17/2022) [facility] Narrative* Problem Noted Date Resolved Date Medicare annual wellness visit, subsequent 10/0202/18/2019 Encounter for long-term (current) use of medicat ions 09/07/2017 05/07/2021 Overview: Added automatically from request for surgery [id number] History of colonic polyps 09/07/20172021 Overview: Added automatically from request for surgery [id number] Gastroesophageal reflux disease 09/07/2017 05/07/2021 Overview: Added automatically from request for surgery [id number] Acute pulmonary edema 01/19/2011 01/20/2011 Overview: 01/19/2011 [...] 01/12/2011 02/02/2011 Overview: age 70, lives in [place]. No DC needs. / Pre-op testing [...] of this encounter (statuses as of 02/21/2022) [facility] Narrative* Problem Noted Date Resolved Date Medicare annual wellness visit, subsequent 10/0202/18/2019 Encounter for long-term (current) use of medicat ions 09/07/2017 05/07/2021 Overview: Added automatically from request for surgery [id number] History of colonic polyps 09/07/20172021 Overview: Added automatically from request for surgery [id number] Gastroesophageal reflux disease 09/07/2017 05/07/2021 Overview: Added automatically from request for surgery [id number] Acute pulmonary edema 01/19/2011 01/20/2011 Overview: 01/19/2011 [...] 01/12/2011 02/02/2011 Overview: age 70, lives in [place]. No DC needs. / Pre-op testing [...] of this encounter (statuses as of 03/04/2022) [facility] Narrative* Problem Noted Date Resolved Date Medicare annual wellness visit, subsequent 10/0202/18/2019 Encounter for long-term (current) use of medicat ions 09/07/2017 05/07/2021 Overview: Added automatically from request for surgery [id number] History of colonic polyps 09/07/20172021 Overview: Added automatically from request for surgery [id number] Gastroesophageal reflux disease 09/07/2017 05/07/2021 Overview: Added automatically from request for surgery [id number] Acute pulmonary edema 01/19/2011 01/20/2011 Overview: 01/19/2011 [...] 01/12/2011 02/02/2011 Overview: age 70, lives in [place]. No DC needs. / Pre-op testing [...] of this encounter (statuses as of 03/07/2022) [facility] Narrative* Problem Noted Date Resolved Date Medicare annual wellness visit, subsequent 10/0202/18/2019 Encounter for long-term (current) use of medicat ions 09/07/2017 05/07/2021 Overview: Added automatically from request for surgery [id number] History of colonic polyps 09/07/20172021 Overview: Added automatically from request for surgery [id number] Gastroesophageal reflux disease 09/07/2017 05/07/2021 Overview: Added automatically from request for surgery [id number] Acute pulmonary edema 01/19/2011 01/20/2011 Overview: 01/19/2011 [...] 01/12/2011 02/02/2011 Overview: age 70, lives in [place], [place]. No DC needs. / Pre-op testing [...] of this encounter (statuses as of 03/22/2022) [facility] History of Past illness Narrative* Problem Noted Date Resolved Date Medicare annual wellness visit, subsequent 10/0202/18/2019 Encounter for long-term (current) use of medicat ions 09/07/2017 05/07/2021 Overview: Added automatically from request for surgery [id number] History of colonic polyps 09/07/20172021 Overview: Added automatically from request for surgery [id number] Gastroesophageal reflux disease 09/07/2017 05/07/2021 Overview: Added automatically from request for surgery [id number] Acute pulmonary edema 01/19/2011 01/20/2011 Overview: 01/19/2011 [...] 01/12/2011 02/02/2011 Overview: age 70, lives in [place], [place]. [...] of this encounter (statuses as of 04/23/2022) [facility] History of Past illness Narrative* Problem Noted Date Resolved Date Medicare annual wellness visit, subsequent 10/0202/18/2019 Encounter for long-term (current) use of medicat ions 09/07/2017 05/07/2021 Overview: Added automatically from request for surgery [id number] History of colonic polyps 09/07/20172021 Overview: Added automatically from request for surgery [id number] Gastroesophageal reflux disease 09/07/2017 05/07/2021 Overview: Added automatically from request for surgery [id number] Acute pulmonary edema 01/19/2011 01/20/2011 Overview: 01/19/2011 [...] 01/12/2011 02/02/2011 Overview: age 70, lives in [place], [place]. No DC needs. / Pre-op testing [...] of this encounter (statuses as of 05/03/2022) [facility] History of Past illness Narrative* Problem Noted Date Resolved Date Medicare annual wellness visit, subsequent 10/0202/18/2019 Encounter for long-term (current) use of medicat ions 09/07/2017 05/07/2021 Overview: Added automatically from request for surgery [id number] History of colonic polyps 09/07/20172021 Overview: Added automatically from request for surgery [id number] Gastroesophageal reflux disease 09/07/2017 05/07/2021 Overview: Added automatically from request for surgery [id number] Acute pulmonary edema 01/19/2011 01/20/2011 Overview: 01/19/2011 [...] 01/12/2011 02/02/2011 Overview: age 70, lives in [place], [place]. No DC needs. / Pre-op testing [...] of this encounter (statuses as of 05/05/2022) [facility] History of Past illness Narrative* Problem Noted Date Resolved Date Medicare annual wellness visit, subsequent 10/0202/18/2019 Encounter for long-term (current) use of medicat ions 09/07/2017 05/07/2021 Overview: Added automatically from request for surgery [id number] History of colonic polyps 09/07/20172021 Overview: Added automatically from request for surgery [id number] Gastroesophageal reflux disease 09/07/2017 05/07/2021 Overview: Added automatically from request for surgery [id number] Acute pulmonary edema 01/19/2011 01/20/2011 Overview: 01/19/2011 [...] 01/12/2011 02/02/2011 Overview: age 70, lives in [place], [place]. No DC needs. / Pre-op testing [...] of this encounter (statuses as of 05/06/2022) [facility] History of Past illness Narrative* Problem Noted Date Resolved Date Medicare annual wellness visit, subsequent 10/0202/18/2019 Encounter for long-term (current) use of medicat ions 09/07/2017 05/07/2021 Overview: Added automatically from request for surgery [id number] History of colonic polyps 09/07/20172021 Overview: Added automatically from request for surgery [id number] Gastroesophageal reflux disease 09/07/2017 05/07/2021 Overview: Added automatically from request for surgery [id number] Acute pulmonary edema 01/19/2011 01/20/2011 Overview: 01/19/2011 [...] 01/12/2011 02/02/2011 Overview: age 70, lives in [place]. No DC needs. / Pre-op testing [...] of this encounter (statuses as of 05/09/2022) [facility] History of Past illness Narrative* Problem Noted Date Resolved Date Medicare annual wellness visit, subsequent 10/0202/18/2019 Encounter for long-term (current) use of medicat ions 09/07/2017 05/07/2021 Overview: Added automatically from request for surgery [id number] History of colonic polyps 09/07/20172021 Overview: Added automatically from request for surgery [id number] Gastroesophageal reflux disease 09/07/2017 05/07/2021 Overview: Added automatically from request for surgery [id number] Acute pulmonary edema 01/19/2011 01/20/2011 Overview: 01/19/2011 [...] 01/12/2011 02/02/2011 Overview: age 70, lives in [place], [place]. No DC needs. / Pre-op testing [...] of this encounter (statuses as of 05/09/2022) [facility] History of Past illness Narrative* Problem Noted Date Resolved Date Medicare annual wellness visit, subsequent 10/0202/18/2019 Encounter for long-term (current) use of medicat ions 09/07/2017 05/07/2021 Overview: Added automatically from request for surgery [id number] History of colonic polyps 09/07/20172021 Overview: Added automatically from request for surgery [id number] Gastroesophageal reflux disease 09/07/2017 05/07/2021 Overview: Added automatically from request for surgery [id number] Acute pulmonary edema 01/19/2011 01/20/2011 Overview: 01/19/2011 [...] 01/12/2011 02/02/2011 Overview: age 70, lives in [place]. No DC needs. / Pre-op testing [...] of this encounter (statuses as of 05/11/2022) [facility] History of Past illness Narrative* Problem Noted Date Resolved Date Medicare annual wellness visit, subsequent 10/0202/18/2019 Encounter for long-term (current) use of medicat ions 09/07/2017 05/07/2021 Overview: Added automatically from request for surgery [id number] History of colonic polyps 09/07/20172021 Overview: Added automatically from request for surgery [id number] Gastroesophageal reflux disease 09/07/2017 05/07/2021 Overview: Added automatically from request for surgery [id number] Acute pulmonary edema 01/19/2011 01/20/2011 Overview: 01/19/2011 [...] 01/12/2011 02/02/2011 Overview: age 70, lives in [place], [place]. No DC needs. 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, Class III, BMI 40-49.9 (morbid obesity) 04/22/2020 documented as of this encounter (statuses as of 05/12/2022) [facility] History of Past illness Narrative* Problem Noted Date Resolved Date Medicare annual wellness visit, subsequent 10/0202/18/2019 Encounter for long-term (current) use of medicat ions 09/07/2017 05/07/2021 Overview: Added automatically from request for surgery [id number] History of colonic polyps 09/07/20172021 Overview: Added automatically from request for surgery [id number] Gastroesophageal reflux disease 09/07/2017 05/07/2021 Overview: Added automatically from request for surgery [id number] Acute pulmonary edema 01/19/2011 01/20/2011 Overview: 01/19/2011 [...] 01/12/2011 02/02/2011 Overview: age 70, lives in [place]. No DC needs. / Pre-op testing [...] of this encounter (statuses as of 05/13/2022) [facility] History of Past illness Narrative* Problem Noted Date Resolved Date Medicare annual wellness visit, subsequent 10/0202/18/2019 Encounter for long-term (current) use of medicat ions 09/07/2017 05/07/2021 Overview: Added automatically from request for surgery [id number] History of colonic polyps 09/07/20172021 Overview: Added automatically from request for surgery [id number] Gastroesophageal reflux disease 09/07/2017 05/07/2021 Overview: Added automatically from request for surgery [id number] Acute pulmonary edema 01/19/2011 01/20/2011 Overview: 01/19/2011 [...] 01/12/2011 02/02/2011 Overview: age 70, lives in [place]. No DC needs. / Pre-op testing [...] of this encounter (statuses as of 05/15/2022) [facility] History of Past illness Narrative* Problem Noted Date Resolved Date Medicare annual wellness visit, subsequent 10/0202/18/2019 Encounter for long-term (current) use of medicat ions 09/07/2017 05/07/2021 Overview: Added automatically from request for surgery [id number] History of colonic polyps 09/07/20172021 Overview: Added automatically from request for surgery [id number] Gastroesophageal reflux disease 09/07/2017 05/07/2021 Overview: Added automatically from request for surgery [id number] Acute pulmonary edema 01/19/2011 01/20/2011 Overview: 01/19/2011 [...] 01/12/2011 02/02/2011 Overview: age 70, lives in [place]. No DC needs. / Pre-op testing [...] of this encounter (statuses as of 05/17/2022) [facility] History of Past illness Narrative* Problem Noted Date Resolved Date Medicare annual wellness visit, subsequent 10/0202/18/2019 Encounter for long-term (current) use of medicat ions 09/07/2017 05/07/2021 Overview: Added automatically from request for surgery [id number] History of colonic polyps 09/07/20172021 Overview: Added automatically from request for surgery [id number] Gastroesophageal reflux disease 09/07/2017 05/07/2021 Overview: Added automatically from request for surgery [id number] Acute pulmonary edema 01/19/2011 01/20/2011 Overview: 01/19/2011 [...] 01/12/2011 02/02/2011 Overview: age 70, lives in [place]. No DC needs. / Pre-op testing [...] of this encounter (statuses as of 05/18/2022) [facility] History of Past illness Narrative* Problem Noted Date Resolved Date Medicare annual wellness visit, subsequent 10/0202/18/2019 Encounter for long-term (current) use of medicat ions 09/07/2017 05/07/2021 Overview: Added automatically from request for surgery [id number] History of colonic polyps 09/07/20172021 Overview: Added automatically from request for surgery [id number] Gastroesophageal reflux disease 09/07/2017 05/07/2021 Overview: Added automatically from request for surgery [id number] Acute pulmonary edema 01/19/2011 01/20/2011 Overview: 01/19/2011 [...] 01/12/2011 02/02/2011 Overview: age 70, lives in [place]. No DC needs. / Pre-op testing [...] of this encounter (statuses as of 05/20/2022) [facility] History of Past illness Narrative* Problem Noted Date Resolved Date Medicare annual wellness visit, subsequent 10/0202/18/2019 Encounter for long-term (current) use of medicat ions 09/07/2017 05/07/2021 Overview: Added automatically from request for surgery [id number] History of colonic polyps 09/07/20172021 Overview: Added automatically from request for surgery [id number] Gastroesophageal reflux disease 09/07/2017 05/07/2021 Overview: Added automatically from request for surgery [id number] Acute pulmonary edema 01/19/2011 01/20/2011 Overview: 01/19/2011 [...] 01/12/2011 02/02/2011 Overview: age 70, lives in [place]. No DC needs. / Pre-op testing [...] of this encounter (statuses as of 05/25/2022) [facility] History of Past illness Narrative* Problem Noted Date Resolved Date Medicare annual wellness visit, subsequent 10/0202/18/2019 Encounter for long-term (current) use of medicat ions 09/07/2017 05/07/2021 Overview: Added automatically from request for surgery [id number] History of colonic polyps 09/07/20172021 Overview: Added automatically from request for surgery [id number] Gastroesophageal reflux disease 09/07/2017 05/07/2021 Overview: Added automatically from request for surgery [id number] Acute pulmonary edema 01/19/2011 01/20/2011 Overview: 01/19/2011 [...] 01/12/2011 02/02/2011 Overview: age 70, lives in [place]. No DC needs. / Pre-op testing [...] of this encounter (statuses as of 05/27/2022) [facility] History of Past illness Narrative* Problem Noted Date Resolved Date Medicare annual wellness visit, subsequent 10/0202/18/2019 Encounter for long-term (current) use of medicat ions 09/07/2017 05/07/2021 Overview: Added automatically from request for surgery [id number] History of colonic polyps 09/07/20172021 Overview: Added automatically from request for surgery [id number] Gastroesophageal reflux disease 09/07/2017 05/07/2021 Overview: Added automatically from request for surgery [id number] Acute pulmonary edema 01/19/2011 01/20/2011 Overview: 01/19/2011 [...] 01/12/2011 02/02/2011 Overview: age 70, lives in [place]. No DC needs. / Pre-op testing [...] of this encounter (statuses as of 05/31/2022) [facility] History of Past illness Narrative* Problem Noted Date Resolved Date Medicare annual wellness visit, subsequent 10/0202/18/2019 Encounter for long-term (current) use of medicat ions 09/07/2017 05/07/2021 Overview: Added automatically from request for surgery [id number] History of colonic polyps 09/07/20172021 Overview: Added automatically from request for surgery [id number] Gastroesophageal reflux disease 09/07/2017 05/07/2021 Overview: Added automatically from request for surgery [id number] Acute pulmonary edema 01/19/2011 01/20/2011 Overview: 01/19/2011 [...] 01/12/2011 02/02/2011 Overview: age 70, lives in [place]. No DC needs. / Pre-op testing [...] of this encounter (statuses as of 06/02/2022) [facility] History of Past illness Narrative* Problem Noted Date Resolved Date Medicare annual wellness visit, subsequent 10/0202/18/2019 Encounter for long-term (current) use of medicat ions 09/07/2017 05/07/2021 Overview: Added automatically from request for surgery [id number] History of colonic polyps 09/07/20172021 Overview: Added automatically from request for surgery [id number] Gastroesophageal reflux disease 09/07/2017 05/07/2021 Overview: Added automatically from request for surgery [id number] Acute pulmonary edema 01/19/2011 01/20/2011 Overview: 01/19/2011 [...] 01/12/2011 02/02/2011 Overview: age 70, lives in [place]. No DC needs. / Pre-op testing [...] of this encounter (statuses as of 06/10/2022) [facility] History of Past illness Narrative* Problem Noted Date Resolved Date Medicare annual wellness visit, subsequent 10/0202/18/2019 Encounter for long-term (current) use of medicat ions 09/07/2017 05/07/2021 Overview: Added automatically from request for surgery [id number] History of colonic polyps 09/07/20172021 Overview: Added automatically from request for surgery [id number] Gastroesophageal reflux disease 09/07/2017 05/07/2021 Overview: Added automatically from request for surgery [id number] Acute pulmonary edema 01/19/2011 01/20/2011 Overview: 01/19/2011 [...] 01/12/2011 02/02/2011 Overview: age 70, lives in [place]. No DC needs. / Pre-op testing [...] of this encounter (statuses as of 06/10/2022) [facility] History of Past illness Narrative* Problem Noted Date Resolved Date Medicare annual wellness visit, subsequent 10/0202/18/2019 Encounter for long-term (current) use of medicat ions 09/07/2017 05/07/2021 Overview: Added automatically from request for surgery [id number] History of colonic polyps 09/07/20172021 Overview: Added automatically from request for surgery [id number] Gastroesophageal reflux disease 09/07/2017 05/07/2021 Overview: Added automatically from request for surgery [id number] Acute pulmonary edema 01/19/2011 01/20/2011 Overview: 01/19/2011 [...] 01/12/2011 02/02/2011 Overview: age 70, lives in [place]. No DC needs. / Pre-op testing [...] of this encounter (statuses as of 06/16/2022) [facility] History of Past illness Narrative* Problem Noted Date Resolved Date Medicare annual wellness visit, subsequent 10/0202/18/2019 Encounter for long-term (current) use of medicat ions 09/07/2017 05/07/2021 Overview: Added automatically from request for surgery [id number] History of colonic polyps 09/07/20172021 Overview: Added automatically from request for surgery [id number] Gastroesophageal reflux disease 09/07/2017 05/07/2021 Overview: Added automatically from request for surgery [id number] Acute pulmonary edema 01/19/2011 01/20/2011 Overview: 01/19/2011 [...] 01/12/2011 02/02/2011 Overview: age 70, lives in [place]. No DC needs. / Pre-op testing [...] of this encounter (statuses as of 06/24/2022) [facility] History of Past illness Narrative* Problem Noted Date Resolved Date Medicare annual wellness visit, subsequent 10/0202/18/2019 Encounter for long-term (current) use of medicat ions 09/07/2017 05/07/2021 Overview: Added automatically from request for surgery [id number] History of colonic polyps 09/07/20172021 Overview: Added automatically from request for surgery [id number] Gastroesophageal reflux disease 09/07/2017 05/07/2021 Overview: Added automatically from request for surgery [id number] Acute pulmonary edema 01/19/2011 01/20/2011 Overview: 01/19/2011 [...] 01/12/2011 02/02/2011 Overview: age 70, lives in [place]. No DC needs. / Pre-op testing [...] of this encounter (statuses as of 06/27/2022) [facility] History of Past illness Narrative* Problem Noted Date Resolved Date Medicare annual wellness visit, subsequent 10/0202/18/2019 Encounter for long-term (current) use of medicat ions 09/07/2017 05/07/2021 Overview: Added automatically from request for surgery [id number] History of colonic polyps 09/07/20172021 Overview: Added automatically from request for surgery [id number] Gastroesophageal reflux disease 09/07/2017 05/07/2021 Overview: Added automatically from request for surgery [id number] Acute pulmonary edema 01/19/2011 01/20/2011 Overview: 01/19/2011 [...] 01/12/2011 02/02/2011 Overview: age 70, lives in [place]. No DC needs. / Pre-op testing [...] of this encounter (statuses as of 07/05/2022) [facility] History of Past illness Narrative* Problem Noted Date Resolved Date Medicare annual wellness visit, subsequent 10/0202/18/2019 Encounter for long-term (current) use of medicat ions 09/07/2017 05/07/2021 Overview: Added automatically from request for surgery [id number] History of colonic polyps 09/07/20172021 Overview: Added automatically from request for surgery [id number] Gastroesophageal reflux disease 09/07/2017 05/07/2021 Overview: Added automatically from request for surgery [id number] Acute pulmonary edema 01/19/2011 01/20/2011 Overview: 01/19/2011 [...] 01/12/2011 02/02/2011 Overview: age 70, lives in [place]. No DC needs. / Pre-op testing [...] of this encounter (statuses as of 07/13/2022) [facility] History of Past illness Narrative* Problem Noted Date Resolved Date Medicare annual wellness visit, subsequent 10/0202/18/2019 Encounter for long-term (current) use of medicat ions 09/07/2017 05/07/2021 Overview: Added automatically from request for surgery [id number] History of colonic polyps 09/07/20172021 Overview: Added automatically from request for surgery [id number] Gastroesophageal reflux disease 09/07/2017 05/07/2021 Overview: Added automatically from request for surgery [id number] Acute pulmonary edema 01/19/2011 01/20/2011 Overview: 01/19/2011 [...] 01/12/2011 02/02/2011 Overview: age 70, lives in [place]. No DC needs. / Pre-op testing [...] of this encounter (statuses as of 07/27/2022) [facility] History of Past illness Narrative* Problem Noted Date Resolved Date Medicare annual wellness visit, subsequent 10/0202/18/2019 Encounter for long-term (current) use of medicat ions 09/07/2017 05/07/2021 Overview: Added automatically from request for surgery [id number] History of colonic polyps 09/07/20172021 Overview: Added automatically from request for surgery [id number] Gastroesophageal reflux disease 09/07/2017 05/07/2021 Overview: Added automatically from request for surgery [id number] Acute pulmonary edema 01/19/2011 01/20/2011 Overview: 01/19/2011 [...] 01/12/2011 02/02/2011 Overview: age 70, lives in [place]. No DC needs. / Pre-op testing [...] of this encounter (statuses as of 07/27/2022) [facility] History of Past illness Narrative* Problem Noted Date Resolved Date Medicare annual wellness visit, subsequent 10/0202/18/2019 Encounter for long-term (current) use of medicat ions 09/07/2017 05/07/2021 Overview: Added automatically from request for surgery [id number] History of colonic polyps 09/07/20172021 Overview: Added automatically from request for surgery [id number] Gastroesophageal reflux disease 09/07/2017 05/07/2021 Overview: Added automatically from request for surgery [id number] Acute pulmonary edema 01/19/2011 01/20/2011 Overview: 01/19/2011 [...] 01/12/2011 02/02/2011 Overview: age 70, lives in [place]. No DC needs. / Pre-op testing [...] of this encounter (statuses as of 07/27/2022) [facility] History of Past illness Narrative* Problem Noted Date Resolved Date Medicare annual wellness visit, subsequent 10/0202/18/2019 Encounter for long-term (current) use of medicat ions 09/07/2017 05/07/2021 Overview: Added automatically from request for surgery [id number] History of colonic polyps 09/07/20172021 Overview: Added automatically from request for surgery [id number] Gastroesophageal reflux disease 09/07/2017 05/07/2021 Overview: Added automatically from request for surgery [id number] Acute pulmonary edema 01/19/2011 01/20/2011 Overview: 01/19/2011 [...] 01/12/2011 02/02/2011 Overview: age 70, lives in [place]. No DC needs. / Pre-op testing [...] of this encounter (statuses as of 07/27/2022) [facility] History of Past illness Narrative* Problem Noted Date Resolved Date Medicare annual wellness visit, subsequent 10/0202/18/2019 Encounter for long-term (current) use of medicat ions 09/07/2017 05/07/2021 Overview: Added automatically from request for surgery [id number] History of colonic polyps 09/07/20172021 Overview: Added automatically from request for surgery [id number] Gastroesophageal reflux disease 09/07/2017 05/07/2021 Overview: Added automatically from request for surgery [id number] Acute pulmonary edema 01/19/2011 01/20/2011 Overview: 01/19/2011 [...] 01/12/2011 02/02/2011 Overview: age 70, lives in [place] No DC needs. / Pre-op testing [...] of this encounter (statuses as of 07/29/2022) [facility] History of Past illness Narrative* Problem Noted Date Resolved Date Medicare annual wellness visit, subsequent 10/0202/18/2019 Encounter for long-term (current) use of medicat ions 09/07/2017 05/07/2021 Overview: Added automatically from request for surgery [id number] History of colonic polyps 09/07/20172021 Overview: Added automatically from request for surgery [id number] Gastroesophageal reflux disease 09/07/2017 05/07/2021 Overview: Added automatically from request for surgery [id number] Acute pulmonary edema 01/19/2011 01/20/2011 Overview: 01/19/2011 [...] 01/12/2011 02/02/2011 Overview: age 70, lives in [place] No DC needs. / Pre-op testing [...] of this encounter (statuses as of 08/06/2022) [facility] History of Past illness Narrative* Problem Noted Date Resolved Date Medicare annual wellness visit, subsequent 10/0202/18/2019 Encounter for long-term (current) use of medicat ions 09/07/2017 05/07/2021 Overview: Added automatically from request for surgery [id number] History of colonic polyps 09/07/20172021 Overview: Added automatically from request for surgery [id number] Gastroesophageal reflux disease 09/07/2017 05/07/2021 Overview: Added automatically from request for surgery [id number] Acute pulmonary edema 01/19/2011 01/20/2011 Overview: 01/19/2011 [...] 01/12/2011 02/02/2011 Overview: age 70, lives in [place] No DC needs. / Pre-op testing [...] of this encounter (statuses as of 08/10/2022) [facility] History of Past illness Narrative* Problem Noted Date Resolved Date Medicare annual wellness visit, subsequent 10/0202/18/2019 Encounter for long-term (current) use of medicat ions 09/07/2017 05/07/2021 Overview: Added automatically from request for surgery [id number] History of colonic polyps 09/07/20172021 Overview: Added automatically from request for surgery [id number] Gastroesophageal reflux disease 09/07/2017 05/07/2021 Overview: Added automatically from request for surgery [id number] Acute pulmonary edema 01/19/2011 01/20/2011 Overview: 01/19/2011 [...] 01/12/2011 02/02/2011 Overview: age 70, lives in [place]. No DC needs. / Pre-op testing [...] of this encounter (statuses as of 08/16/2022) [facility] History of Past illness Narrative* Problem Noted Date Resolved Date Medicare annual wellness visit, subsequent 10/0202/18/2019 Encounter for long-term (current) use of medicat ions 09/07/2017 05/07/2021 Overview: Added automatically from request for surgery [id number] History of colonic polyps 09/07/20172021 Overview: Added automatically from request for surgery [id number] Gastroesophageal reflux disease 09/07/2017 05/07/2021 Overview: Added automatically from request for surgery [id number] Acute pulmonary edema 01/19/2011 01/20/2011 Overview: 01/19/2011 [...] 01/12/2011 02/02/2011 Overview: age 70, lives in [place], [place]. No DC needs. / Pre-op testing [...] of this encounter (statuses as of 08/18/2022) [facility] History of Past illness Narrative* Problem Noted Date Resolved Date Medicare annual wellness visit, subsequent 10/0202/18/2019 Encounter for long-term (current) use of medicat ions 09/07/2017 05/07/2021 Overview: Added automatically from request for surgery [id number] History of colonic polyps 09/07/20172021 Overview: Added automatically from request for surgery [id number] Gastroesophageal reflux disease 09/07/2017 05/07/2021 Overview: Added automatically from request for surgery [id number] Acute pulmonary edema 01/19/2011 01/20/2011 Overview: 01/19/2011 [...] 01/12/2011 02/02/2011 Overview: age 70, lives in [place], [place]. No DC needs. / Pre-op testing [...] of this encounter (statuses as of 08/19/2022) [facility] History of Past illness Narrative* Problem Noted Date Resolved Date Medicare annual wellness visit, subsequent 10/0202/18/2019 Encounter for long-term (current) use of medicat ions 09/07/2017 05/07/2021 Overview: Added automatically from request for surgery [id number] History of colonic polyps 09/07/20172021 Overview: Added automatically from request for surgery [id number] Gastroesophageal reflux disease 09/07/2017 05/07/2021 Overview: Added automatically from request for surgery [id number] Acute pulmonary edema 01/19/2011 01/20/2011 Overview: 01/19/2011 [...] 01/12/2011 02/02/2011 Overview: age 70, lives in [place]. No DC needs. / Pre-op testing [...] of this encounter (statuses as of 08/20/2022) [facility] History of Past illness Narrative* Problem Noted Date Resolved Date Medicare annual wellness visit, subsequent 10/0202/18/2019 Encounter for long-term (current) use of medicat ions 09/07/2017 05/07/2021 Overview: Added automatically from request for surgery [id number] History of colonic polyps 09/07/20172021 Overview: Added automatically from request for surgery [id number] Gastroesophageal reflux disease 09/07/2017 05/07/2021 Overview: Added automatically from request for surgery [id number] Acute pulmonary edema 01/19/2011 01/20/2011 Overview: 01/19/2011 [...] 01/12/2011 02/02/2011 Overview: age 70, lives in [place]. No DC needs. / Pre-op testing [...] of this encounter (statuses as of 08/22/2022) [facility] History of Past illness Narrative* Problem Noted Date Resolved Date Medicare annual wellness visit, subsequent 10/0202/18/2019 Encounter for long-term (current) use of medicat ions 09/07/2017 05/07/2021 Overview: Added automatically from request for surgery [id number] History of colonic polyps 09/07/20172021 Overview: Added automatically from request for surgery [id number] Gastroesophageal reflux disease 09/07/2017 05/07/2021 Overview: Added automatically from request for surgery [id number] Acute pulmonary edema 01/19/2011 01/20/2011 Overview: 01/19/2011 [...] 01/12/2011 02/02/2011 Overview: age 70, lives in [place]. No DC needs. / Pre-op testing [...] of this encounter (statuses as of 09/15/2022) [facility] History of Past illness Narrative* Problem Noted Date Resolved Date Medicare annual wellness visit, subsequent 10/0202/18/2019 Encounter for long-term (current) use of medicat ions 09/07/2017 05/07/2021 Overview: Added automatically from request for surgery [id number] History of colonic polyps 09/07/20172021 Overview: Added automatically from request for surgery [id number] Gastroesophageal reflux disease 09/07/2017 05/07/2021 Overview: Added automatically from request for surgery [id number] Acute pulmonary edema 01/19/2011 01/20/2011 Overview: 01/19/2011 [...] 01/12/2011 02/02/2011 Overview: age 70, lives in [place]. No DC needs. / Pre-op testing [...] of this encounter (statuses as of 09/20/2022) [facility] History of Past illness Narrative* Problem Noted Date Resolved Date Medicare annual wellness visit, subsequent 10/0202/18/2019 Encounter for long-term (current) use of medicat ions 09/07/2017 05/07/2021 Overview: Added automatically from request for surgery [id number] History of colonic polyps 09/07/20172021 Overview: Added automatically from request for surgery [id number] Gastroesophageal reflux disease 09/07/2017 05/07/2021 Overview: Added automatically from request for surgery [id number] Acute pulmonary edema 01/19/2011 01/20/2011 Overview: 01/19/2011 [...] 01/12/2011 02/02/2011 Overview: age 70, lives in [place]. No DC needs. / Pre-op testing [...] of this encounter (statuses as of 09/20/2022) [facility] History of Past illness Narrative* Problem Noted Date Resolved Date Medicare annual wellness visit, subsequent 10/0202/18/2019 Encounter for long-term (current) use of medicat ions 09/07/2017 05/07/2021 Overview: Added automatically from request for surgery [id number] History of colonic polyps 09/07/20172021 Overview: Added automatically from request for surgery [id number] Gastroesophageal reflux disease 09/07/2017 05/07/2021 Overview: Added automatically from request for surgery [id number] Acute pulmonary edema 01/19/2011 01/20/2011 Overview: 01/19/2011 [...] 01/12/2011 02/02/2011 Overview: age 70, lives in [place]. No DC needs. / Pre-op testing [...] of this encounter (statuses as of 09/22/2022) [facility] History of Past illness Narrative* Problem Noted Date Resolved Date Medicare annual wellness visit, subsequent 10/0202/18/2019 Encounter for long-term (current) use of medicat ions 09/07/2017 05/07/2021 Overview: Added automatically from request for surgery [id number] History of colonic polyps 09/07/20172021 Overview: Added automatically from request for surgery [id number] Gastroesophageal reflux disease 09/07/2017 05/07/2021 Overview: Added automatically from request for surgery [id number] Acute pulmonary edema 01/19/2011 01/20/2011 Overview: 01/19/2011 [...] 01/12/2011 02/02/2011 Overview: age 70, lives in [place]. No DC needs. / Pre-op testing [...] of this encounter (statuses as of 09/30/2022) [facility] History of Past illness Narrative* Problem Noted Date Resolved Date Medicare annual wellness visit, subsequent 10/0202/18/2019 Encounter for long-term (current) use of medicat ions 09/07/2017 05/07/2021 Overview: Added automatically from request for surgery [id number] History of colonic polyps 09/07/20172021 Overview: Added automatically from request for surgery [id number] Gastroesophageal reflux disease 09/07/2017 05/07/2021 Overview: Added automatically from request for surgery [id number] Acute pulmonary edema 01/19/2011 01/20/2011 Overview: 01/19/2011 [...] 01/12/2011 02/02/2011 Overview: age 70, lives in [place]. No DC needs. / Pre-op testing [...] of this encounter (statuses as of 10/21/2022) [facility] History of Past illness Narrative* Problem Noted Date Diagnosed Date Resolved Date Medicare annual wellness visit, subsequent 10/02/2018 02/18/2019 Encounter for long-term (cur rent) use of medications 09/07/2017 05/07/2021 Overview: Added automatically from request for surgery [id number] History of colonic polyps 09/07/2017 Overview: Added automatically from request for surgery [id number] Gastroesophageal reflux disease 09/07/2017 05/07/2021 Overview: Added automatically from request for surgery [id number] Acute pulmonary edema 01/19/20112010 Overview: 01/19/2011 cardiogenic [...] 01/12/2011 1 Overview: age 70, lives in [place]. No DC needs. / Pre-op testing [...] of this encounter (statuses as of 11/01/2022) [facility] History of Past illness Narrative* Problem Noted Date Diagnosed Date Resolved Date Medicare annual wellness visit, subsequent 10/02/2018 02/18/2019 Encounter for long-term (cur rent) use of medications 09/07/2017 05/07/2021 Overview: Added automatically from request for surgery [id number] History of colonic polyps 09/07/2017 Overview: Added automatically from request for surgery [id number] Gastroesophageal reflux disease 09/07/2017 05/07/2021 Overview: Added automatically from request for surgery [id number] Acute pulmonary edema 01/19/20112010 Overview: 01/19/2011 cardiogenic [...] 01/12/2011 1 Overview: age 70, lives in [place], [place]. No DC needs. / Pre-op testing 01/12/2011 01/18/2011 Overview: Images from the original note were not included. [facility] Surgeon: Zenno Sanders M.D. Informed Consent Completed: No STS [...] of this encounter (statuses as of 11/03/2022) [facility] History of Past illness Narrative* Problem Noted Date Diagnosed Date Resolved Date Medicare annual wellness visit, subsequent 10/02/2018 02/18/2019 Encounter for long-term (cur rent) use of medications 09/07/2017 05/07/2021 Overview: Added automatically from request for surgery [id number] History of colonic polyps 09/07/2017 Overview: Added automatically from request for surgery [id number] Gastroesophageal reflux disease 09/07/2017 05/07/2021 Overview: Added automatically from request for surgery [id number] Acute pulmonary edema 01/19/20112010 Overview: 01/19/2011 cardiogenic [...] 01/12/2011 1 Overview: age 70, lives in [place], [place]. No DC needs. 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 pectoris [facility] Diagnosis Adenomatous polyp of colon, unspecified part of colon- Primary Impaired fasting glucose Stage 3 chronic kidney disease, unspecified whether stage 3a or 3b CKD (HCC) Essential hypertension Unspecified essential hypertension Anemia of chronic disease Anemia of other chronic disease Thrombocytopenia (HCC) Thrombocytopenia, unspecified [facility]* Diagnosis Peripheral polyneuropathy- Primary Unspecified hereditary and idiopathic peripheral neuropathy Frequent falls Personal history of fall Contusion of hip, unspecified laterality, subsequent encounter Muscular weakness Muscle weakness (generalized) Abnormality of gait [facility]* Diagnosis Frequent falls- Primary Personal history of fall Peripheral polyneuropathy Unspecified hereditary and idiopathic peripheral neuropathy [facility] Diagnosis Peripheral polyneuropathy- Primary Unspecified hereditary and idiopathic peripheral neuropathy Abnormality of gait Stage 3a chronic kidney disease (HCC) Essential hypertension Unspecified essential hypertension [facility]* Diagnosis Personal history of falling, presenting hazards to health- Primary Personal history of fall Peripheral polyneuropathy Unspecified hereditary and idiopathic peripheral neuropathy Abnormality of gait [facility]* Diagnosis Monoclonal gammopathy- Primary Monoclonal paraproteinemia Macrocytic anemia Unspecified deficiency anemia Thrombocytopenia (HCC) Thrombocytopenia, unspecified [facility] Cirrhosis of liver without ascites, unspecified hepatic cirrhosis type (HCC)- Primary Splenomegaly Liver lesion Other specified disorders of liver Metabolic syndrome Dysmetabolic Syndrome X Lower extremity edema Edema Healthcare maintenance Routine general medical examination at a health care facility [facility] Diagnosis Cirrhosis of liver without ascites, unspecified hepatic cirrhosis type (HCC)- Primary Claustrophobia Other isolated or specific phobias [facility] Diagnosis Stasis dermatitis of both legs- Primary Varicose veins of lower extremities with inflammation Local skin infection Unspecified local infection of skin and subcutaneous tissue Urge incontinence of urine Urge incontinence Peripheral polyneuropathy Unspecified hereditary and idiopathic peripheral neuropathy [facility] Diagnosis 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 [facility] Diagnosis 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 [facility] Diagnosis Iron deficiency anemia, unspecified iron deficiency anemia type- Primary History of colonic polyps Personal history of colonic polyps History of cirrhosis Personal history of other diseases of digestive system [facility] Diagnosis Cirrhosis of liver without ascites, unspecified hepatic cirrhosis type (HCC)- Primary Liver mass Unspecified disorder of liver Splenomegaly [facility] Diagnosis 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 [facility] 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 [facility] Diagnosis Iron deficiency anemia due [...] (HCC)- Primary [facility] Diagnosis Hepatocellular carcinoma (HCC)- Primary Malignant neoplasm of liver, primary [facility] Diagnosis Hepatocellular carcinoma (HCC)- Primary Malignant neoplasm of liver, primary [facility] Diagnosis Unspecified essential hypertension Urge incontinence of urine Urge incontinence [facility] Diagnosis Coronary artery disease involving prairie band coronary artery of prairie band heart without angina pectoris Urge incontinence of urine Urge incontinence [facility] Diagnosis Iron deficiency anemia due to chronic blood loss- Primary Iron deficiency anemia secondary to blood loss (chronic) Macrocytic anemia Unspecified deficiency anemia Hepatocellular carcinoma (HCC) Malignant neoplasm of liver, primary Thrombocytopenia (HCC) Thrombocytopenia, unspecified Hyperparathyroidism (HCC) Hyperparathyroidism, unspecified MGUS (monoclonal gammopathy of unknown significance) Monoclonal paraproteinemia [facility] Diagnosis New onset atrial flutter (HCC)- Primary Atrial flutter Coronary artery disease involving prairie band coronary artery of prairie band heart without angina pectoris [facility] Diagnosis 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 [facility] Diagnosis 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 [facility] Diagnosis 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 [facility] Diagnosis 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 [facility] Diagnosis 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 [facility] Diagnosis Melena- Primary Blood in stool [facility] Diagnosis Monoclonal gammopathy Monoclonal paraproteinemia Macrocytic anemia Unspecified deficiency anemia Thrombocytopenia (HCC) Thrombocytopenia, unspecified [facility] Diagnosis Liver disease Unspecified disorder of liver [facility] Diagnosis Treatment not available- Primary Procedure not carried out for other reasons [facility] Diagnosis Gastroesophageal reflux disease, unspecified whether esophagitis present Anemia of chronic disease Anemia of other chronic disease documented in this encounter [facility] Plan of care note* Visit [...] & Living Will. documented in this encounter [facility] Plan of care note* Visit [...] front wheeled walker [facility] Visit Details Visit Type -ELECTRICAL FITTER ROUTINE Discipline -Physical Therapy Problems Problem Description [...] to: caregiver assistance. documented in this encounter [facility] Plan of care note* Visit Details Visit Type -ELECTRICAL FITTER ROUTINE Discipline -Physical Therapy Problems Problem Description [...] without ongoing services. [facility] Visit Details [...] rest and positioning/elevation. [facility] Visit Details Visit Type -ELECTRICAL FITTER ROUTINE Discipline -Physical Therapy Problems Problem Description [...] without ongoing services. [facility] Visit Details [...] walker Managing Pain documented in this encounter [facility] Plan of care note* Visit Details Visit Type -ELECTRICAL FITTER ROUTINE Discipline -Physical Therapy Problems Problem Description [...] without ongoing services. documented in this encounter [facility] Plan of care note* Visit [...] without ongoing services. [facility] Visit Details Visit Type -ELECTRICAL FITTER ROUTINE Discipline -Physical Therapy Problems Problem Description [...] without ongoing services. documented in this encounter [facility] Plan of care note* Visit Details Visit Type -ELECTRICAL FITTER ROUTINE Discipline -Physical Therapy Problems Problem Description [...] to: caregiver assistance. documented in this encounter [facility] Plan of care note* Visit Details Visit Type -PT AGENCY DC W V ISIT Discipline -Physical Therapy Problems Problem Description Start [...] pattern, pt must make an effort to cone picker his toes , has no toe [...] with community assistance [facility] Diagnostic Procedure Only (Routine) - Closed Specialty Diagnoses / Procedures Referred By Contac t Referred To Contact XR IMAGING Diagnoses Monoclonal gammopathy Procedures XR BONE SURVEY ROUTINE RADIOLOGIC EXAMINATION OSSEOUS SURVEY COMPL Yuniel Dahl DO [address] [place] [address] Xr Imaging Referral ID Status Reason Start Date Expiration Date V isits Requested Visits Authorized [id number] Closed Auto-Generate d Referral 03/22/2022 04/21/2023 1 1 * Diagnostic Procedure Only (Routine) - Authorized Specialty Diagnoses / Procedures Referred By Contac t Referred To Contact US IMAGING Diagnoses Monoclonal gammopathy Macrocytic anemia Thrombocytopenia (HCC) Procedures US ABD RT UPPER QUADRANT US ABDOMINAL REAL TIME W/IMAGE LIMITED Yuniel Dahl DO [address] [place] [address] Us Imaging Referral ID Status Reason Start Date Expiration Date Visits Requested Visits Authorized [id number] Authorized Auto-Generat ed Referral 03/22/2022 04/21/2023 1 1 [facility] for referral (narrative)* Outpatient Procedure (Routine) - Authorized Specialty Diagnoses / Procedures Referred By Steve anaya Referred To Contact [facility] [place] Diagnoses Melena Procedures EGD - THERAPEUTIC, EUS, OR TUBE INTERVENTIONS EGD BAND LIGATION ESOPHGEAL/GASTRIC VARICES Haley Valiente MD [address] [place] [address] [facility] [place] [id number] Referral ID Status Reason Start Date Expiration Date Visits Requested Visits Authorized [id number] Authorized Auto-Generat ed Referral 3 02/03/2024 1 1 [facility] for referral (narrative)* Diagnostic Procedure Only (Routine) - Closed Specialty Diagnoses / Procedures Referred By Steve anaya Referred To Contact US IMAGING Diagnoses Monoclonal gammopathy Macrocytic anemia Thrombocytopenia (HCC) Procedures US ABD RT UPPER QUADRANT US ABDOMINAL REAL TIME W/IMAGE LIMITED Yuniel Dahl DO [address] [place] [address] Us Imaging [facility] Referral ID Status Reason Start Date Expiration Date V isits Requested Visits Authorized [id number] Closed Auto-Generate d Referral 03/22/2022 04/21/2023 1 1 [facility] Summary Purpose Family History No Family History Records FoundNo Family History Records FoundNo Family History Records FoundNo Family History Records FoundNo Family History Records FoundNo Family History Records Found Advance Directives No Advanced Directives Records FoundDocuments on File Type Date Recorded Patient Steam Conditioner Filling Expl anation Advance Directive(s) 05/09/2019 9:27 AM Advance Directive(s) 04/24/2019 5:47 PM Advance Directive(s) 10/02/2017 11:22 AM Documents on File Type Date Recorded Patient Steam Conditioner Filling Expl anation Advance Directive(s) 05/09/2019 9:27 AM [...] Procedures CONSULT TO GASTROENTEROLOGY Ricky Bradley MD [address] [place] [address] Referral ID Status Reason Start Date Expiration Date Visits Requested Visits Authorized [id number] Ref Not Required PCP Requested Referral 11/04/2021 11/04/2022 1 1 Specialty Diagnoses / Procedures Referred By Contac t Referred To Contact Diagnoses Peripheral polyneuropathy Frequent falls Contusion of hip, unspecified laterality, subsequent encounter Muscular weakness Abnormality of gait Procedures CONSULT TO [facility] Ricky Bradley MD [address] [place] [address] [address] [place] [id number] Referral ID Status Reason Start Date Expiration Date Visits Requested Visits Authorized [id number] Authorized PCP Requested Referral 12/11/2021 03/11/2022 1 1 Specialty Diagnoses / Procedures Referred By Contac t Referred To Contact Diagnoses Frequent falls Peripheral polyneuropathy Procedures CONSULT TO NEUROLOGY Ricky Bradley MD [address] [place] [address] Referral ID Status Reason Start Date Expiration Date Visits Requested Visits Authorized [id number] Ref Not Required PCP Requested Referral 01/19/2022 01/17/2023 1 1 Specialty Diagnoses / Procedures Referred By Contac t Referred To Contact [facility] Diagnoses Peripheral polyneuropathy Abnormality of gait Procedures CONSULT TO DIRECTOR OF SUSTAINABILITY PROGRAMS OCCUPATIONAL THERAPY EVAL HIGH COMPLEX 60 MINS Ricky Bradley MD [address] [place] [address] [facility] [place] [address] [place] [address] Referral ID Status Reason Start Date Expiration Date Visits Requested Visits Authorized [id number] Authorized PCP Requested Referral Auto-Generate d Referral 01/31/2023 99 99 Specialty Diagnoses / Procedures Referred By Contac t Referred To Contact [facility] Diagnoses Cirrhosis of liver without ascites, unspecified hepatic cirrhosis type (HCC) Liver mass Splenomegaly Procedures MRI LIVER WO/W IVCON MRI ABDOMEN W/O & W/CONTRAST MATERIAL Kai Poon PA-C [address] [id number] [facility] Referral ID Status Reason Start Date Expiration Date Visits Requested Visits Authorized [id number] Pending Review Auto-Generat ed Referral 05/13/2022 06/12/2023 1 1 Referral ID Status Reason Start Date Expiration Date V isits Requested Visits Authorized [id number] Closed Auto-Generate d Referral 05/13/2022 06/12/2023 1 1 Specialty Diagnoses / Procedures Referred By Contac t Referred To Contact Diagnoses Hepatocellular carcinoma (HCC) Procedures CT SIM PLANNING RADIATION ONCOLOGY THER RAD SIMULAJ-AIDED [place] [address] [place] [address] Referral ID Status Reason Start Date Expiration Date Visits Requested Visits Authorized [id number] Pending Review PCP Requested Referral 08/16/2022 11/13/2022 1 1 Specialty Diagnoses / Procedures Referred By Contac t Referred To Contact [facility] Diagnoses Liver disease Procedures MRI LIVER WO/W IVCON MRI ABDOMEN W/O & W/[place] [address] [place] [address] [id number] Referral ID Status Reason Start Date Expiration Date V isits Requested Visits Authorized [id number] Closed Auto-Generate d Referral 12/16/2022 10/03/2023 1 [...] DATE CREATED AUTHOR AUTHOR'S ORGANIZ ATION 10/10/2017 [facility] DATE CREATED AUTHOR AUTHOR'S ORGANIZ ATION 10/11/2017 [facility] DATE CREATED AUTHOR AUTHOR'S ORGANIZ ATION 04/27/2022 [facility] DATE CREATED AUTHOR AUTHOR'S ORGANIZ ATION 05/13/2022 [facility] DATE CREATED AUTHOR AUTHOR'S ORGANSRINIVASA ATION 05/24/2023 [facility] Source Comments (unrecognize d section and content) In the event this informatio n is protected by the Federal Confidentiality of Alcohol and Drug Abuse Patient Records regulations: The Federal rules restrict any use of the information to criminally investigate or prosecute any alcohol or drug abuse patient.[facility] HealthIn the event this information is protected by the Federal Confidentiality of Alcohol and Drug Abuse Patient Records regulations: The Federal rules restrict any use of the information to criminally investigate or prosecute any alcohol or drug abuse patient.[facility] HealthIn the event this information is protected by the Federal Confidentiality of Alcohol and Drug Abuse Patient Records regulations: The Federal rules restrict any use of the information to criminally investigate or prosecute any alcohol or drug abuse patient.[facility] HealthIn the event this information is protected by the Federal Confidentiality of Alcohol and Drug Abuse Patient Records regulations: The Federal rules restrict any use of the information to criminally investigate or prosecute any alcohol or drug abuse patient.[facility] HealthIn the event this information is protected by the Federal Confidentiality of Alcohol and Drug Abuse Patient Records regulations: The Federal rules restrict any use of the information to criminally investigate or prosecute any alcohol or drug abuse patient.[facility] HealthIn the event this information is protected by the Federal Confidentiality of Alcohol and Drug Abuse Patient Records regulations: The Federal rules restrict any use of the information to criminally investigate or prosecute any alcohol or drug abuse patient.[facility] HealthIn the event this information is protected by the Federal Confidentiality of Alcohol and Drug Abuse Patient Records regulations: The Federal rules restrict any use of the information to criminally investigate or prosecute any alcohol or drug abuse patient.[facility] HealthIn the event this information is protected by the Federal Confidentiality of Alcohol and Drug Abuse Patient Records regulations: The Federal rules restrict any use of the information to criminally investigate or prosecute any alcohol or drug abuse patient.[facility] HealthIn the event this information is protected by the Federal Confidentiality of Alcohol and Drug Abuse Patient Records regulations: The Federal rules restrict any use of the information to criminally investigate or prosecute any alcohol or drug abuse patient.[facility] HealthIn the event this information is protected by the Federal Confidentiality of Alcohol and Drug Abuse Patient Records regulations: The Federal rules restrict any use of the information to criminally investigate or prosecute any alcohol or drug abuse patient.[facility] HealthIn the event this information is protected by the Federal Confidentiality of Alcohol and Drug Abuse Patient Records regulations: The Federal rules restrict any use of the information to criminally investigate or prosecute any alcohol or drug abuse patient.[facility] HealthIn the event this information is protected by the Federal Confidentiality of Alcohol and Drug Abuse Patient Records regulations: The Federal rules restrict any use of the information to criminally investigate or prosecute any alcohol or drug abuse patient.[facility] HealthIn the event this information is protected by the Federal Confidentiality of Alcohol and Drug Abuse Patient Records regulations: The Federal rules restrict any use of the information to criminally investigate or prosecute any alcohol or drug abuse patient.[facility] HealthIn the event this information is protected by the Federal Confidentiality of Alcohol and Drug Abuse Patient Records regulations: The Federal rules restrict any use of the information to criminally investigate or prosecute any alcohol or drug abuse patient.[facility] HealthIn the event this information is protected by the Federal Confidentiality of Alcohol and Drug Abuse Patient Records regulations: The Federal rules restrict any use of the information to criminally investigate or prosecute any alcohol or drug abuse patient.[facility] HealthIn the event this information is protected by the Federal Confidentiality of Alcohol and Drug Abuse Patient Records regulations: The Federal rules restrict any use of the information to criminally investigate or prosecute any alcohol or drug abuse patient.[facility] HealthIn the event this information is protected by the Federal Confidentiality of Alcohol and Drug Abuse Patient Records regulations: The Federal rules restrict any use of the information to criminally investigate or prosecute any alcohol or drug abuse patient.[facility] HealthIn the event this information is protected by the Federal Confidentiality of Alcohol and Drug Abuse Patient Records regulations: The Federal rules restrict any use of the information to criminally investigate or prosecute any alcohol or drug abuse patient.[facility] HealthIn the event this information is protected by the Federal Confidentiality of Alcohol and Drug Abuse Patient Records regulations: The Federal rules restrict any use of the information to criminally investigate or prosecute any alcohol or drug abuse patient.[facility] HealthIn the event this information is protected by the Federal Confidentiality of Alcohol and Drug Abuse Patient Records regulations: The Federal rules restrict any use of the information to criminally investigate or prosecute any alcohol or drug abuse patient.[facility] HealthIn the event this information is protected by the Federal Confidentiality of Alcohol and Drug Abuse Patient Records regulations: The Federal rules restrict any use of the information to criminally investigate or prosecute any alcohol or drug abuse patient.[facility] HealthIn the event this information is protected by the Federal Confidentiality of Alcohol and Drug Abuse Patient Records regulations: The Federal rules restrict any use of the information to criminally investigate or prosecute any alcohol or drug abuse patient.[facility] HealthIn the event this information is protected by the Federal Confidentiality of Alcohol and Drug Abuse Patient Records regulations: The Federal rules restrict any use of the information to criminally investigate or prosecute any alcohol or drug abuse patient.[facility] HealthIn the event this information is protected by the Federal Confidentiality of Alcohol and Drug Abuse Patient Records regulations: The Federal rules restrict any use of the information to criminally investigate or prosecute any alcohol or drug abuse patient.[facility] HealthIn the event this information is protected by the Federal Confidentiality of Alcohol and Drug Abuse Patient Records regulations: The Federal rules restrict any use of the information to criminally investigate or prosecute any alcohol or drug abuse patient.[facility] HealthIn the event this information is protected by the Federal Confidentiality of Alcohol and Drug Abuse Patient Records regulations: The Federal rules restrict any use of the information to criminally investigate or prosecute any alcohol or drug abuse patient.[facility] HealthIn the event this information is protected by the Federal Confidentiality of Alcohol and Drug Abuse Patient Records regulations: The Federal rules restrict any use of the information to criminally investigate or prosecute any alcohol or drug abuse patient.[facility] HealthIn the event this information is protected by the Federal Confidentiality of Alcohol and Drug Abuse Patient Records regulations: The Federal rules restrict any use of the information to criminally investigate or prosecute any alcohol or drug abuse patient.[facility] HealthIn the event this information is protected by the Federal Confidentiality of Alcohol and Drug Abuse Patient Records regulations: The Federal rules restrict any use of the information to criminally investigate or prosecute any alcohol or drug abuse patient.[facility] HealthIn the event this information is protected by the Federal Confidentiality of Alcohol and Drug Abuse Patient Records regulations: The Federal rules restrict any use of the information to criminally investigate or prosecute any alcohol or drug abuse patient.[facility] HealthIn the event this information is protected by the Federal Confidentiality of Alcohol and Drug Abuse Patient Records regulations: The Federal rules restrict any use of the information to criminally investigate or prosecute any alcohol or drug abuse patient.[facility] HealthIn the event this information is protected by the Federal Confidentiality of Alcohol and Drug Abuse Patient Records regulations: The Federal rules restrict any use of the information to criminally investigate or prosecute any alcohol or drug abuse patient.[facility] HealthIn the event this information is protected by the Federal Confidentiality of Alcohol and Drug Abuse Patient Records regulations: The Federal rules restrict any use of the information to criminally investigate or prosecute any alcohol or drug abuse patient.[facility] HealthIn the event this information is protected by the Federal Confidentiality of Alcohol and Drug Abuse Patient Records regulations: The Federal rules restrict any use of the information to criminally investigate or prosecute any alcohol or drug abuse patient.[facility] HealthIn the event this information is protected by the Federal Confidentiality of Alcohol and Drug Abuse Patient Records regulations: The Federal rules restrict any use of the information to criminally investigate or prosecute any alcohol or drug abuse patient.[facility] HealthIn the event this information is protected by the Federal Confidentiality of Alcohol and Drug Abuse Patient Records regulations: The Federal rules restrict any use of the information to criminally investigate or prosecute any alcohol or drug abuse patient.[facility] HealthIn the event this information is protected by the Federal Confidentiality of Alcohol and Drug Abuse Patient Records regulations: The Federal rules restrict any use of the information to criminally investigate or prosecute any alcohol or drug abuse patient.[facility] HealthIn the event this information is protected by the Federal Confidentiality of Alcohol and Drug Abuse Patient Records regulations: The Federal rules restrict any use of the information to criminally investigate or prosecute any alcohol or drug abuse patient.[facility] HealthIn the event this information is protected by the Federal Confidentiality of Alcohol and Drug Abuse Patient Records regulations: The Federal rules restrict any use of the information to criminally investigate or prosecute any alcohol or drug abuse patient.[facility] HealthIn the event this information is protected by the Federal Confidentiality of Alcohol and Drug Abuse Patient Records regulations: The Federal rules restrict any use of the information to criminally investigate or prosecute any alcohol or drug abuse patient.[facility] HealthIn the event this information is protected by the Federal Confidentiality of Alcohol and Drug Abuse Patient Records regulations: The Federal rules restrict any use of the information to criminally investigate or prosecute any alcohol or drug abuse patient.[facility] HealthIn the event this information is protected by the Federal Confidentiality of Alcohol and Drug Abuse Patient Records regulations: The Federal rules restrict any use of the information to criminally investigate or prosecute any alcohol or drug abuse patient.[facility] HealthIn the event this information is protected by the Federal Confidentiality of Alcohol and Drug Abuse Patient Records regulations: The Federal rules restrict any use of the information to criminally investigate or prosecute any alcohol or drug abuse patient.[facility] HealthIn the event this information is protected by the Federal Confidentiality of Alcohol and Drug Abuse Patient Records regulations: The Federal rules restrict any use of the information to criminally investigate or prosecute any alcohol or drug abuse patient.[facility] HealthIn the event this information is protected by the Federal Confidentiality of Alcohol and Drug Abuse Patient Records regulations: The Federal rules restrict any use of the information to criminally investigate or prosecute any alcohol or drug abuse patient.[facility] HealthIn the event this information is protected by the Federal Confidentiality of Alcohol and Drug Abuse Patient Records regulations: The Federal rules restrict any use of the information to criminally investigate or prosecute any alcohol or drug abuse patient.[facility] HealthIn the event this information is protected by the Federal Confidentiality of Alcohol and Drug Abuse Patient Records regulations: The Federal rules restrict any use of the information to criminally investigate or prosecute any alcohol or drug abuse patient.[facility] HealthIn the event this information is protected by the Federal Confidentiality of Alcohol and Drug Abuse Patient Records regulations: The Federal rules restrict any use of the information to criminally investigate or prosecute any alcohol or drug abuse patient.[facility] HealthIn the event this information is protected by the Federal Confidentiality of Alcohol and Drug Abuse Patient Records regulations: The Federal rules restrict any use of the information to criminally investigate or prosecute any alcohol or drug abuse patient.[facility] HealthIn the event this information is protected by the Federal Confidentiality of Alcohol and Drug Abuse Patient Records regulations: The Federal rules restrict any use of the information to criminally investigate or prosecute any alcohol or drug abuse patient.[facility] HealthIn the event this information is protected by the Federal Confidentiality of Alcohol and Drug Abuse Patient Records regulations: The Federal rules restrict any use of the information to criminally investigate or prosecute any alcohol or drug abuse patient.[facility] HealthIn the event this information is protected by the Federal Confidentiality of Alcohol and Drug Abuse Patient Records regulations: The Federal rules restrict any use of the information to criminally investigate or prosecute any alcohol or drug abuse patient.[facility] HealthIn the event this information is protected by the Federal Confidentiality of Alcohol and Drug Abuse Patient Records regulations: The Federal rules restrict any use of the information to criminally investigate or prosecute any alcohol or drug abuse patient.[facility] HealthIn the event this information is protected by the Federal Confidentiality of Alcohol and Drug Abuse Patient Records regulations: The Federal rules restrict any use of the information to criminally investigate or prosecute any alcohol or drug abuse patient.[facility] HealthIn the event this information is protected by the Federal Confidentiality of Alcohol and Drug Abuse Patient Records regulations: The Federal rules restrict any use of the information to criminally investigate or prosecute any alcohol or drug abuse patient.[facility] HealthIn the event this information is protected by the Federal Confidentiality of Alcohol and Drug Abuse Patient Records regulations: The Federal rules restrict any use of the information to criminally investigate or prosecute any alcohol or drug abuse patient.[facility] HealthIn the event this information is protected by the Federal Confidentiality of Alcohol and Drug Abuse Patient Records regulations: The Federal rules restrict any use of the information to criminally investigate or prosecute any alcohol or drug abuse patient.[facility] HealthIn the event this information is protected by the Federal Confidentiality of Alcohol and Drug Abuse Patient Records regulations: The Federal rules restrict any use of the information to criminally investigate or prosecute any alcohol or drug abuse patient.[facility] HealthIn the event this information is protected by the Federal Confidentiality of Alcohol and Drug Abuse Patient Records regulations: The Federal rules restrict any use of the information to criminally investigate or prosecute any alcohol or drug abuse patient.[facility] HealthIn the event this information is protected by the Federal Confidentiality of Alcohol and Drug Abuse Patient Records regulations: The Federal rules restrict any use of the information to criminally investigate or prosecute any alcohol or drug abuse patient.[facility] HealthIn the event this information is protected by the Federal Confidentiality of Alcohol and Drug Abuse Patient Records regulations: The Federal rules restrict any use of the information to criminally investigate or prosecute any alcohol or drug abuse patient.[facility] HealthIn the event this information is protected by the Federal Confidentiality of Alcohol and Drug Abuse Patient Records regulations: The Federal rules restrict any use of the information to criminally investigate or prosecute any alcohol or drug abuse patient.[facility] HealthIn the event this information is protected by the Federal Confidentiality of Alcohol and Drug Abuse Patient Records regulations: The Federal rules restrict any use of the information to criminally investigate or prosecute any alcohol or drug abuse patient.[facility] HealthIn the event this information is protected by the Federal Confidentiality of Alcohol and Drug Abuse Patient Records regulations: The Federal rules restrict any use of the information to criminally investigate or prosecute any alcohol or drug abuse patient.[facility] HealthIn the event this information is protected by the Federal Confidentiality of Alcohol and Drug Abuse Patient Records regulations: The Federal rules restrict any use of the information to criminally investigate or prosecute any alcohol or drug abuse patient.[facility] HealthIn the event this information is protected by the Federal Confidentiality of Alcohol and Drug Abuse Patient Records regulations: The Federal rules restrict any use of the information to criminally investigate or prosecute any alcohol or drug abuse patient.[facility] HealthIn the event this information is protected by the Federal Confidentiality of Alcohol and Drug Abuse Patient Records regulations: The Federal rules restrict any use of the information to criminally investigate or prosecute any alcohol or drug abuse patient.[facility] HealthIn the event this information is protected by the Federal Confidentiality of Alcohol and Drug Abuse Patient Records regulations: The Federal rules restrict any use of the information to criminally investigate or prosecute any alcohol or drug abuse patient.[facility] HealthIn the event this information is protected by the Federal Confidentiality of Alcohol and Drug Abuse Patient Records regulations: The Federal rules restrict any use of the information to criminally investigate or prosecute any alcohol or drug abuse patient.[facility] HealthIn the event this information is protected by the Federal Confidentiality of Alcohol and Drug Abuse Patient Records regulations: The Federal rules restrict any use of the information to criminally investigate or prosecute any alcohol or drug abuse patient.[facility] HealthIn the event this information is protected by the Federal Confidentiality of Alcohol and Drug Abuse Patient Records regulations: The Federal rules restrict any use of the information to criminally investigate or prosecute any alcohol or drug abuse patient.[facility] HealthIn the event this information is protected by the Federal Confidentiality of Alcohol and Drug Abuse Patient Records regulations: The Federal rules restrict any use of the information to criminally investigate or prosecute any alcohol or drug abuse patient.[facility] HealthIn the event this information is protected by the Federal Confidentiality of Alcohol and Drug Abuse Patient Records regulations: The Federal rules restrict any use of the information to criminally investigate or prosecute any alcohol or drug abuse patient.[facility] HealthIn the event this information is protected by the Federal Confidentiality of Alcohol and Drug Abuse Patient Records regulations: The Federal rules restrict any use of the information to criminally investigate or prosecute any alcohol or drug abuse patient.[facility] HealthIn the event this information is protected by the Federal Confidentiality of Alcohol and Drug Abuse Patient Records regulations: The Federal rules restrict any use of the information to criminally investigate or prosecute any alcohol or drug abuse patient.[facility] HealthIn the event this information is protected by the Federal Confidentiality of Alcohol and Drug Abuse Patient Records regulations: The Federal rules restrict any use of the information to criminally investigate or prosecute any alcohol or drug abuse patient.[facility] HealthIn the event this information is protected by the Federal Confidentiality of Alcohol and Drug Abuse Patient Records regulations: The Federal rules restrict any use of the information to criminally investigate or prosecute any alcohol or drug abuse patient.[facility] HealthIn the event this information is protected by the Federal Confidentiality of Alcohol and Drug Abuse Patient Records regulations: The Federal rules restrict any use of the information to criminally investigate or prosecute any alcohol or drug abuse patient.[facility] HealthIn the event this information is protected by the Federal Confidentiality of Alcohol and Drug Abuse Patient Records regulations: The Federal rules restrict any use of the information to criminally investigate or prosecute any alcohol or drug abuse patient.[facility] HealthIn the event this information is protected by the Federal Confidentiality of Alcohol and Drug Abuse Patient Records regulations: The Federal rules restrict any use of the information to criminally investigate or prosecute any alcohol or drug abuse patient.[facility] HealthIn the event this information is protected by the Federal Confidentiality of Alcohol and Drug Abuse Patient Records regulations: The Federal rules restrict any use of the information to criminally investigate or prosecute any alcohol or drug abuse patient.[facility] HealthIn the event this information is protected by the Federal Confidentiality of Alcohol and Drug Abuse Patient Records regulations: The Federal rules restrict any use of the information to criminally investigate or prosecute any alcohol or drug abuse patient.[facility] HealthIn the event this information is protected by the Federal Confidentiality of Alcohol and Drug Abuse Patient Records regulations: The Federal rules restrict any use of the information to criminally investigate or prosecute any alcohol or drug abuse patient.[facility] HealthIn the event this information is protected by the Federal Confidentiality of Alcohol and Drug Abuse Patient Records regulations: The Federal rules restrict any use of the information to criminally investigate or prosecute any alcohol or drug abuse patient.[facility] HealthIn the event this information is protected by the Federal Confidentiality of Alcohol and Drug Abuse Patient Records regulations: The Federal rules restrict any use of the information to criminally investigate or prosecute any alcohol or drug abuse patient.[facility] HealthIn the event this information is protected by the Federal Confidentiality of Alcohol and Drug Abuse Patient Records regulations: The Federal rules restrict any use of the information to criminally investigate or prosecute any alcohol or drug abuse patient.[facility] HealthIn the event this information is protected by the Federal Confidentiality of Alcohol and Drug Abuse Patient Records regulations: The Federal rules restrict any use of the information to criminally investigate or prosecute any alcohol or drug abuse patient.[facility] HealthIn the event this information is protected by the Federal Confidentiality of Alcohol and Drug Abuse Patient Records regulations: The Federal rules restrict any use of the information to criminally investigate or prosecute any alcohol or drug abuse patient.[facility] HealthIn the event this information is protected by the Federal Confidentiality of Alcohol and Drug Abuse Patient Records regulations: The Federal rules restrict any use of the information to criminally investigate or prosecute any alcohol or drug abuse patient.[facility] HealthIn the event this information is protected by the Federal Confidentiality of Alcohol and Drug Abuse Patient Records regulations: The Federal rules restrict any use of the information to criminally investigate or prosecute any alcohol or drug abuse patient.[facility] HealthIn the event this information is protected by the Federal Confidentiality of Alcohol and Drug Abuse Patient Records regulations: The Federal rules restrict any use of the information to criminally investigate or prosecute any alcohol or drug abuse patient.[facility] HealthIn the event this information is protected by the Federal Confidentiality of Alcohol and Drug Abuse Patient Records regulations: The Federal rules restrict any use of the information to criminally investigate or prosecute any alcohol or drug abuse patient.[facility] HealthIn the event this information is protected by the Federal Confidentiality of Alcohol and Drug Abuse Patient Records regulations: The Federal rules restrict any use of the information to criminally investigate or prosecute any alcohol or drug abuse patient.[facility] HealthIn the event this information is protected by the Federal Confidentiality of Alcohol and Drug Abuse Patient Records regulations: The Federal rules restrict any use of the information to criminally investigate or prosecute any alcohol or drug abuse patient.[facility] HealthIn the event this information is protected by the Federal Confidentiality of Alcohol and Drug Abuse Patient Records regulations: The Federal rules restrict any use of the information to criminally investigate or prosecute any alcohol or drug abuse patient.[facility] HealthIn the event this information is protected by the Federal Confidentiality of Alcohol and Drug Abuse Patient Records regulations: The Federal rules restrict any use of the information to criminally investigate or prosecute any alcohol or drug abuse patient.[facility] HealthIn the event this information is protected by the Federal Confidentiality of Alcohol and Drug Abuse Patient Records regulations: The Federal rules restrict any use of the information to criminally investigate or prosecute any alcohol or drug abuse patient.[facility] HealthIn the event this information is protected by the Federal Confidentiality of Alcohol and Drug Abuse Patient Records regulations: The Federal rules restrict any use of the information to criminally investigate or prosecute any alcohol or drug abuse patient.[facility] HealthIn the event this information is protected by the Federal Confidentiality of Alcohol and Drug Abuse Patient Records regulations: The Federal rules restrict any use of the information to criminally investigate or prosecute any alcohol or drug abuse patient.[facility] HealthIn the event this information is protected by the Federal Confidentiality of Alcohol and Drug Abuse Patient Records regulations: The Federal rules restrict any use of the information to criminally investigate or prosecute any alcohol or drug abuse patient.[facility] HealthIn the event this information is protected by the Federal Confidentiality of Alcohol and Drug Abuse Patient Records regulations: The Federal rules restrict any use of the information to criminally investigate or prosecute any alcohol or drug abuse patient.[facility] Reason for Visit (unrecogniz ed section and [...] polyneuropathy Abnormality of gait Procedures CONSULT TO DIRECTOR OF SUSTAINABILITY PROGRAMS OCCUPATIONAL THERAPY EVAL HIGH COMPLEX 60 MINS Ricky Bradley MD [address] [place] [address] [facility] [place] [address] [place] [address] Referral ID Status Reason Start Date Expiration Date Visits Requested Visits Authorized [id number] Authorized PCP Requested Referral Auto-Generate d Referral 2 01/31/2023 99 99 Reason Comments Forms Reason Comments New Patient Evaluation Reason Comments Cirrhosis Specialty Diagnoses / Procedures Referred By Contac t Referred To Contact Diagnoses Cirrhosis of liver without ascites, unspecified hepatic cirrhosis type (HCC) Splenomegaly Procedures CONSULT TO HEPATOLOGY OFFICE/OUTPATIENT NEW HIGH MDM 60-74 MINUTES Yuniel Dahl DO [address] [place] [address] Referral ID Status Reason Start Date Expiration Date V isits Requested Visits Authorized [id number] Closed PCP Requested Referral 04/22/2022 04/22/2023 1 1 Reason Comments Rash Reason Comments Non-Chemotherapy Treatment Specialty Diagnoses / Procedures [facility] To Contact Diagnoses Iron deficiency anemia due to chronic blood loss Iron malabsorption Yuniel Dahl, DO [address] [place] [address] [facility] [address] [place] [address] Referral ID Status Reason Start Date Expiration Date V isits Requested Visits Authorized [id number] Authorized 04/22/2022 07/21/2022 99 99 Reason Comments [...] anesthesia Specialty Diagnoses / Procedures [facility]erred To Contact MR IMAGING Diagnoses Cirrhosis of liver without ascites, unspecified hepatic cirrhosis type (HCC) Liver mass Splenomegaly Procedures MRI LIVER WO/W IVCON MRI ABDOMEN W/O & W/CONTRAST MATERIAL Kai Poon PA-C [address] [place] [id number] Mr Imaging Referral ID Status Reason Start Date Expiration Date V isits Requested Visits Authorized [id number] Closed Auto-Generate d Referral 05/13/2022 06/12/2023 1 1 Reason Comments Radiology MRI Specialty Diagnoses / Procedures [facility] Referred To Contact MR IMAGING Diagnoses Cirrhosis of liver without ascites, unspecified hepatic cirrhosis type (HCC) Liver mass Splenomegaly Procedures MRI LIVER WO/W IVCON MRI ABDOMEN W/O & W/CONTRAST MATERIAL Kai Poon PA-C [address] [place] [address] Mr Imaging Reason Comments Established Patient 4cm hcc Reason Onset Date Comments SPP General - Treatment Referral 08/10/2022 [employer] Insurance Authorization 08/10/2022 LORRAINE paradaed Reason Onset Date Comments Simulation Request Form 08/15/2022 Reason Comments Patient Education Reason Onset Date Comments Refill Request 08/22/2022 Reason Onset Date Comments Refill Request 09/19/2022 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 Reason Comments HHC Order Request Reason Comments [facility] SN POC Reason Comments Physical Therapy Plan of Care Reason Comments Established Patient Reason Onset Date Comments Refill Request 12/08/2022 Referral ID Status Reason Start Date Expiration Date V isits Requested Visits Authorized [id number] Authorized 12/09/2022 03/09/2023 99 99 Reason Comments Established Patient 3 month follow up Reason Comments Radiology US Specialty Diagnoses / Procedures Referred By Contac t Referred To Contact US IMAGING Diagnoses Monoclonal gammopathy Macrocytic anemia Thrombocytopenia (HCC) Procedures US ABD RT UPPER QUADRANT US ABDOMINAL REAL TIME W/IMAGE LIMITED Yuniel Dahl DO [address] [place] [address] [place] [address] Referral ID Status Reason Start Date Expiration Date V isits Requested Visits Authorized [id number] Closed Auto-Generate d Referral 03/22/2022 04/21/2023 1 1 Specialty Diagnoses / Procedures Referred By Contac t Referred To Contact MR IMAGING Diagnoses Liver disease Procedures MRI LIVER WO/W IVCON MRI ABDOMEN W/O & W/[place] [address] [place] [address] [place] [address] Referral ID Status Reason Start Date Expiration Date V isits Requested Visits Authorized [id number] Closed Auto-Generate d Referral 12/16/2022 10/03/2023 1 1 Reason Comments Appointment Confirmation Reason Comments Report of wound Reason Comments Wound Infection Reason Comments Permission from pt Reason Onset Date Comments Refill Request 05/23/2023 Care Teams (unrecognized sec tion and content) Cabinet Maker Relationship Specialty Start Date End Date Ricky Bradley MD [address] [place], [place] [id number] PCP - General 02/05/02 Cabinet Maker Relationship Specialty Start Date End Date Ricky Bradley MD [address] [place] [address] PCP - General 02/05/02 Cabinet Maker Relationship Specialty Start Date End Date Ricky Bradley MD [address] [place] [address] PCP - General 02/05/02 Cabinet Maker Relationship Specialty Start Date End Date Ricky Bradley MD [address] [place] [address] PCP - General 02/05/02 Cabinet Maker Relationship Specialty Start Date End Date Ricky Bradley MD [address] [place] [address] PCP - General 02/05/02 Ricky Bradley MD [address] [place] [address] Referring Internal Medicine 12/07/21 Ricky Bradley MD [address] [place] [address] Home Care Physician Internal Medicine 12/07/21 Cabinet Maker Relationship Specialty Start Date End Date Ricky Bradley MD [address] [place] [address] PCP - General 02/05/02 Ricky Bradley MD [address] [place] [address] Referring Internal Medicine 12/07/21 Ricky Bradley MD [address] [place] [address] Home Care Physician Internal Medicine 12/07/21 Cabinet Maker Relationship Specialty Start Date End Date Ricky Bradley MD [address] [place] [address] PCP - General 02/05/02 Ricky Bradley MD [address] [place] [address] Referring Internal Medicine 12/07/21 Ricky Bradley MD [address] [place] [address] Home Care Physician Internal Medicine 12/07/21 Cabinet Maker Relationship Specialty Start Date End Date Ricky Bradley MD [address] [place] [address] PCP - General 02/05/02 Ricky Bradley MD [address] [place] [address] Referring Internal Medicine 12/07/21 Ricky Bradley MD [address] [place] [address] Home Care Physician Internal Medicine 12/07/21 Leda Christensen, PT [address] [place] [address] Life Skills Consultant Post Acute Care 12/14/21 Cabinet Maker Relationship Specialty Start Date End Date Ricky Bradley MD [address] [place] [address] PCP - General 02/05/02 Ricky Bradley MD [address] [place] [address] Referring Internal Medicine 12/07/21 Ricky Bradley MD [address] [place] [address] Home Care Physician Internal Medicine 12/07/21 Leda Christensen, PT [address] [place] [address] Life Skills Consultant Post Acute Care 12/14/21 Cabinet Maker Relationship Specialty Start Date End Date Ricky Bradley MD [address] [place] [address] PCP - General 02/05/02 Ricky Bradley MD [address] [place] [address] Referring Internal Medicine 12/07/21 Ricky Bradley MD [address] [place] [address] Home Care Physician Internal Medicine 12/07/21 Leda Christensen, PT [address] [place] [address] Life Skills Consultant Post Acute Care 12/14/21 Cabinet Maker Relationship Specialty Start Date End Date Ricky Bradley MD [address] [place] [address] PCP - General 02/05/02 Ricky Bradley MD [address] [place] [address] Referring Internal Medicine 12/07/21 Ricky Bradley MD [address] [place] [address] Home Care Physician Internal Medicine 12/07/21 Leda Christensen, PT [address] [place] [address] Life Skills Consultant Post Acute Care 12/14/21 Cabinet Maker Relationship Specialty Start Date End Date Ricky Bradley MD [address] [place] [address] PCP - General 02/05/02 Ricky Bradley MD [address] [place] [address] Referring Internal Medicine 12/07/21 Ricky Bradley MD [address] [place] [address] Home Care Physician Internal Medicine 12/07/21 Leda Christensen, PT [address] [facility] [address] Life Skills Consultant Post Acute Care 12/14/21 Cabinet Maker Relationship Specialty Start Date End Date Ricky Bradley MD [address] [place] [address] PCP - General 02/05/02 Ricky Bradley MD [address] [place] [address] Referring Internal Medicine 12/07/21 Ricky Bradley MD [address] [place] [address] Home Care Physician Internal Medicine 12/07/21 Leda Christensen, PT [address] [place] [address] Life Skills Consultant Post Acute Care 12/14/21 Cabinet Maker Relationship Specialty Start Date End Date Ricky Bradley MD [address] [place] [address] PCP - General 02/05/02 Ricky Bradley MD [address] [place] [address] Referring Internal Medicine 12/07/21 Ricky Bradley MD [address] [place] [address] Home Care Provider Internal Medicine 12/07/21 Leda Christensen, PT [address] [place] [address] Life Skills Consultant Post Acute Care 12/14/21 Cabinet Maker Relationship Specialty Start Date End Date Ricky Bradley MD [address] [place] [address] PCP - General 02/05/02 Ricky Bradley MD [address] [place] [address] Referring Internal Medicine 12/07/21 Ricky Bradley MD [address] [place] [address] Home Care Provider Internal Medicine 12/07/21 Leda Christensen, PT [address] [place] [address] Life Skills Consultant Post Acute Care 12/14/21 Cabinet Maker Relationship Specialty Start Date End Date Ricky Bradley MD [address] [place] [address] PCP - General 02/05/02 Ricky Bradley MD [address] [place] [address] Referring Internal Medicine 12/07/21 Ricky Bradley MD [address] [place] [address] Home Care Provider Internal Medicine 12/07/21 Leda Christensen, PT [address] [place] [address] Life Skills Consultant Post Acute Care 12/14/21 Cabinet Maker Relationship Specialty Start Date End Date Ricky Bradley MD [address] [place] [address] PCP - General 02/05/02 Ricky Bradley MD [address] [place] [address] Referring Internal Medicine 12/07/21 Ricky Bradley MD [address] [place] [address] Home Care Provider Internal Medicine 12/07/21 Leda Christensen, PT [address] [place] [address] Life Skills Consultant Post Acute Care 12/14/21 Cabinet Maker Relationship Specialty Start Date End Date Ricky Bradley MD [address] [place] [address] PCP - General 02/05/02 Ricky Bradley MD [address] [place] [address] Referring Internal Medicine 12/07/21 Ricky Bradley MD [address] [place] [address] Home Care Provider Internal Medicine 12/07/21 Leda Christensen, PT [address] [place] [place] [address] Life Skills Consultant Post Acute Care 12/14/21 Cabinet Maker Relationship Specialty Start Date End Date Ricky Bradley MD [address] [place] [address] PCP - General 02/05/02 Ricky Bradley MD [address] [place] [address] Referring Internal Medicine 12/07/21 Ricky Bradley MD [address] [place] [address] Home Care Provider Internal Medicine 12/07/21 Leda Christensen, PT [address] [place] [place] [address] Life Skills Consultant Post Acute Care 12/14/21 Cabinet Maker Relationship Specialty Start Date End Date Ricky Bradley MD [address] [place] [address] PCP - General 02/05/02 Ricky Bradley MD [address] [place] [address] Referring Internal Medicine 12/07/21 Ricky Bradley MD [address] [place] [address] Home Care Provider Internal Medicine 12/07/21 Leda Christensen, PT [address] [place] [address] Life Skills Consultant Post Acute Care 12/14/21 Cabinet Maker Relationship Specialty Start Date End Date Ricky Bradley MD [address] [place] [address] PCP - General 02/05/02 Ricky Bradley MD [address] [place] [address] Referring Internal Medicine 12/07/21 Ricky Bradley MD [address] [place] [address] Home Care Provider Internal Medicine 12/07/21 Leda Christensen, PT [address] [place] [address] Life Skills Consultant Post Acute Care 12/14/21 Cabinet Maker Relationship Specialty Start Date End Date Ricky Bradley MD [address] [place] [address] PCP - General 02/05/02 Ricky Bradley MD [address] [place] [address] Referring Internal Medicine 12/07/21 Ricky Bradley MD [address] [place] [address] Home Care Provider Internal Medicine 12/07/21 Leda Christensen, PT [address] [place] [address] Life Skills Consultant Post Acute Care 12/14/21 Cabinet Maker Relationship Specialty Start Date End Date Ricky Bradley MD [address] [place] [address] PCP - General 02/05/02 Ricky Bradley MD [address] [place] [address] Referring Internal Medicine 12/07/21 Ricky Bradley MD [address] [place] [address] Home Care Provider Internal Medicine 12/07/21 Leda Christensen, PT [address] [place] [address] Life Skills Consultant Post Acute Care 12/14/21 Cabinet Maker Relationship Specialty Start Date End Date Ricky Bradley MD [address] [place] [address] PCP - General 02/05/02 Ricky Bradley MD [address] [place] [address] Referring Internal Medicine 12/07/21 Ricky Bradley MD [address] [place] [address] Home Care Provider Internal Medicine 12/07/21 Leda Christensen, PT [address] [place] [address] Life Skills Consultant Post Acute Care 12/14/21 Cabinet Maker Relationship Specialty Start Date End Date Ricky Bradley MD [address] [place] [address] PCP - General 02/05/02 Ricky Bradley MD [address] [place] [address] Referring Internal Medicine 12/07/21 Ricky Bradley MD [address] [place] [address] Home Care Provider Internal Medicine 12/07/21 Leda Christensen, PT [address] [place] [address] Life Skills Consultant Post Acute Care 12/14/21 Cabinet Maker Relationship Specialty Start Date End Date Ricky Bradley MD [address] [place] [address] PCP - General 02/05/02 Ricky Bradley MD [address] [place] [address] Referring Internal Medicine 12/07/21 Ricky Bradley MD [address] [place] [address] Home Care Provider Internal Medicine 12/07/21 Leda Christensen, PT [address] [place] [address] Life Skills Consultant Post Acute Care 12/14/21 Cabinet Maker Relationship Specialty Start Date End Date Ricky Bradley MD [address] [place] [address] PCP - General 02/05/02 Ricky Bradley MD [address] [place] [address] Referring Internal Medicine 12/07/21 Ricky Bradley MD [address] [place] [address] Home Care Provider Internal Medicine 12/07/21 Leda Christensen, PT [address] [facility] [place] [address] Life Skills Consultant Post Acute Care 12/14/21 Cabinet Maker Relationship Specialty Start Date End Date Ricky Bradley MD [address] [place] [address] PCP - General 02/05/02 Ricky Bradley MD [address] [place] [address] Referring Internal Medicine 12/07/21 Ricky Bradley MD [address] [place] [address] Home Care Provider Internal Medicine 12/07/21 Leda Christensen, PT [address] [place] [address] Life Skills Consultant Post Acute Care 12/14/21 Cabinet Maker Relationship Specialty Start Date End Date Ricky Bradley MD [address] [place] [address] PCP - General 02/05/02 Ricky Bradley MD [address] [place] [address] Referring Internal Medicine 12/07/21 Ricky Bradley MD [address] [place] [address] Home Care Provider Internal Medicine 12/07/21 Leda Christensen, PT [address] [facility] [place] [address] Life Skills Consultant Post Acute Care 12/14/21 Cabinet Maker Relationship Specialty Start Date End Date Ricky Bradley MD [address] [place] [address] PCP - General 02/05/02 Ricky Bradley MD [address] [place] [address] Referring Internal Medicine 12/07/21 Ricky Bradley MD [address] [place] [address] Home Care Provider Internal Medicine 12/07/21 Leda Christensen, PT [address] [place] [address] Life Skills Consultant Post Acute Care 12/14/21 Cabinet Maker Relationship Specialty Start Date End Date Ricky Bradley MD [address] [place] [address] PCP - General 02/05/02 Ricky Bradley MD [address] [place] [address] Referring Internal Medicine 12/07/21 Ricky Bradley MD [address] [place] [address] Home Care Provider Internal Medicine 12/07/21 Leda Christensen, PT [address] [place] [address] Life Skills Consultant Post Acute Care 12/14/21 Cabinet Maker Relationship Specialty Start Date End Date Ricky Bradley MD [address] [place] [address] PCP - General 02/05/02 Ricky Bradley MD [address] [place] [address] Referring Internal Medicine 12/07/21 Ricky Bradley MD [address] [place] [address] Home Care Provider Internal Medicine 12/07/21 Leda Christensen, PT [address] [place] [address] Life Skills Consultant Post Acute Care 12/14/21 Cabinet Maker Relationship Specialty Start Date End Date Ricky Bradley MD [address] [place] [address] PCP - General 02/05/02 Ricky Bradley MD [address] [place] [address] Referring Internal Medicine 12/07/21 Ricky Bradley MD [address] [place] [address] Home Care Provider Internal Medicine 12/07/21 Leda Christensen, PT [address] [facility] [address] Life Skills Consultant Post Acute Care 12/14/21 Cabinet Maker Relationship Specialty Start Date End Date Ricky Bradley MD [address] [place] [address] PCP - General 02/05/02 Ricky Bradley MD [address] [place] [address] Referring Internal Medicine 12/07/21 Ricky Bradley MD [address] [place] [address] Home Care Provider Internal Medicine 12/07/21 Leda Christensen, PT [address] [facility] [place] [address] Life Skills Consultant Post Acute Care 12/14/21 Cabinet Maker Relationship Specialty Start Date End Date Ricky Bradley MD [address] [place] [address] PCP - General 02/05/02 Ricky Bradley MD [address] [place] [address] Referring Internal Medicine 12/07/21 Ricky Bradley MD [address] [place] [address] Home Care Provider Internal Medicine 12/07/21 Leda Christensen, PT [address] [facility] [place] [address] Life Skills Consultant Post Acute Care 12/14/21 Cabinet Maker Relationship Specialty Start Date End Date Ricky Bradley MD [address] [place] [address] PCP - General 02/05/02 Ricky Bradley MD [address] [place] [address] Referring Internal Medicine 12/07/21 Ricky Bradley MD [address] [place] [address] Home Care Provider Internal Medicine 12/07/21 Leda Christensen, PT [address] [facility] [place] [address] Life Skills Consultant Post Acute Care 12/14/21 Cabinet Maker Relationship Specialty Start Date End Date Ricky rBadley MD [address] [place] [address] PCP - General 02/05/02 Ricky Bradley MD [address] [place] [address] Referring Internal Medicine 12/07/21 Ricky Bradley MD [address] [place] [address] Home Care Provider Internal Medicine 12/07/21 Leda Christensen, PT [address] [facility] [place] [address] Life Skills Consultant Post Acute Care 12/14/21 Kai Poon PA-C [address] [place] [address] Gastroenterology 06/10/22 Ingrid Morales PA-C [address] [place] [address] General Surgery 06/10/22 Cabinet Maker Relationship Specialty Start Date End Date Ricky Bradley MD [address] [place] [address] PCP - General 02/05/02 Ricky Bradley MD [facility] [place] [address] Referring Internal Medicine 12/07/21 Ricky Bradley MD [facility] [place] [address] Home Care Provider Internal Medicine 12/07/21 Leda Christensen, PT [address] [place] [address] Life Skills Consultant Post Acute Care 12/14/21 Kai Poon PA-C [address] [place] [address] Gastroenterology 06/10/22 Ingrid Morales PA-C [address] [place] [address] General Surgery 06/10/22 Cabinet Maker Relationship Specialty Start Date End Date Ricky Bradley MD [address] [place] [address] PCP - General 02/05/02 Ricky Bradley MD [address] [place] [address] Referring Internal Medicine 12/07/21 Ricky Bradley MD [address] [place] [address] Home Care Provider Internal Medicine 12/07/21 Leda Christensen, PT [address] [place] [address] Life Skills Consultant Post Acute Care 12/14/21 Kai Poon PA-C [address] [place] [address] Gastroenterology 06/10/22 Ingrid Morales PA-C [address] [place] [address] General Surgery 06/10/22 Cabinet Maker Relationship Specialty Start Date End Date Ricky Bradley MD [address] [place] [address] PCP - General 02/05/02 Ricky Bradley MD [address] [place] [address] Referring Internal Medicine 12/07/21 Ricky Bradley MD [address] [place] [address] Home Care Provider Internal Medicine 12/07/21 Leda Christensen, PT [address] [place] [address] Life Skills Consultant Post Acute Care 12/14/21 aKi Poon PA-C [address] [place] [address] Gastroenterology 06/10/22 Ingrid Morales PA-C [address] [place] [address] General Surgery 06/10/22 Cabinet Maker Relationship Specialty Start Date End Date Ricky Bradley MD [address] [place] [address] PCP - General 02/05/02 Ricky Bradley MD [address] [place] [address] Referring Internal Medicine 12/07/21 Ricky Bradley MD [address] [place] [address] Home Care Provider Internal Medicine 12/07/21 Leda Christensen, PT [address] [place] [address] Life Skills Consultant Post Acute Care 12/14/21 Kai Poon PA-C [address] [place] [address] Gastroenterology 06/10/22 Ingrid Morales PA-C [address] [facility] [place] [address] General Surgery 06/10/22 Cabinet Maker Relationship Specialty Start Date End Date Ricky Bradley MD [address] [place] [address] PCP - General 02/05/02 Ricky Bradley MD [address] [place] [address] Referring Internal Medicine 12/07/21 Ricky Bradley MD [address] [place] [address] Home Care Provider Internal Medicine 12/07/21 Leda Christensen, PT [address] [place] [address] Life Skills Consultant Post Acute Care 12/14/21 Kai Poon PA-C [address] [place] [address] Gastroenterology 06/10/22 Ingrid Morales PA-C [address] [place] [address] General Surgery 06/10/22 Cabinet Maker Relationship Specialty Start Date End Date Ricky Bradley MD [address] [place] [address] PCP - General 02/05/02 Ricky Bradley MD [address] [place] [address] Referring Internal Medicine 12/07/21 Ricky Bradley MD [address] [place] [address] Home Care Provider Internal Medicine 12/07/21 Leda Christensen, PT [address] [place] [address] Life Skills Consultant Post Acute Care 12/14/21 Kai Poon PA-C [address] [place] [address] Gastroenterology 06/10/22 Ingrid Morales PA-C [address] [place] [address] General Surgery 06/10/22 Cabinet Maker Relationship Specialty Start Date End Date Ricky Bradley MD [address] [place] [address] PCP - General 02/05/02 Ricky Bradley MD [address] [place] [address] Referring Internal Medicine 12/07/21 Ricky Bradley MD [address] [place] [address] Home Care Provider Internal Medicine 12/07/21 Leda Christensen, PT [address] [place] [address] Life Skills Consultant Post Acute Care 12/14/21 Kai Poon PA-C [address] [place] [address] Gastroenterology 06/10/22 Ingrid Morales PA-C [address] [place] [address] General Surgery 06/10/22 Cabinet Maker Relationship Specialty Start Date End Date Ricky Braldey MD [address] [place] [address] PCP - General 02/05/02 Ricky Bradley MD [address] [place] [address] Referring Internal Medicine 12/07/21 Ricky Bradley MD [address] [place] [address] Home Care Provider Internal Medicine 12/07/21 Leda Christensen, PT [address] [place] [address] Life Skills Consultant Post Acute Care 12/14/21 Kai Poon PA-C [address] [place] [address] Gastroenterology 06/10/22 Ingrid Morales PA-C [address] [place] [address] General Surgery 06/10/22 Cabinet Maker Relationship Specialty Start Date End Date Ricky Bradley MD [address] [place] [address] PCP - General 02/05/02 Ricky Bradley MD [address] [place] [address] Referring Internal Medicine 12/07/21 Ricky Bradley MD [address] [place] [address] Home Care Provider Internal Medicine 12/07/21 Leda Christensen, PT [address] [place] [address] Life Skills Consultant Post Acute Care 12/14/21 Kai Poon PA-C [address] [place] [address] Gastroenterology 06/10/22 Ingrid Morales PA-C [address] [place] [address] General Surgery 06/10/22 Cabinet Maker Relationship Specialty Start Date End Date Ricky Bradley MD [address] [place] [address] PCP - General 02/05/02 Ricky Bradley MD [address] [place] [address] Referring Internal Medicine 12/07/21 Ricky Bradley MD [address] [place] [address] Home Care Provider Internal Medicine 12/07/21 Leda Christensen, PT [address] [place] [address] Life Skills Consultant Post Acute Care 12/14/21 Kai Poon PA-C [address] [place] [address] Gastroenterology 06/10/22 Ingrid Morales PA-C [address] [place] [address] General Surgery 06/10/22 Cabinet Maker Relationship Specialty Start Date End Date Ricky Bradley MD [address] [place] [address] PCP - General 02/05/02 Ricky Bradley MD [address] [place] [address] Referring Internal Medicine 12/07/21 Ricky Bradley MD [address] [place] [address] Home Care Provider Internal Medicine 12/07/21 Leda Christensen, PT [address] [place] [address] Life Skills Consultant Post Acute Care 12/14/21 Kai Poon PA-C [address] [place] [address] Gastroenterology 06/10/22 Ingrid Morales PA-C [address] [place] [address] General Surgery 06/10/22 Cabinet Maker Relationship Specialty Start Date End Date Ricky Bradley MD [address] [place] [address] PCP - General 02/05/02 Ricky Bradley MD [address] [place] [address] Referring Internal Medicine 12/07/21 Ricky Bradley MD [address] [place] [address] Home Care Provider Internal Medicine 12/07/21 Leda Christensen, PT [address] [place] [address] Life Skills Consultant Post Acute Care 12/14/21 Kai Poon PA-C [address] [place] [address] Gastroenterology 06/10/22 Ingrid Morales PA-C [address] [place] [address] General Surgery 06/10/22 Cabinet Maker Relationship Specialty Start Date End Date Ricky Bradley MD [address] [place] [address] PCP - General 02/05/02 Ricky Bradley MD [address] [place] [address] Referring Internal Medicine 12/07/21 Ricky Bradley MD [address] [place] [address] Home Care Provider Internal Medicine 12/07/21 Leda Christensen, PT [address] [place] [address] Life Skills Consultant Post Acute Care 12/14/21 Kai Poon PA-C [address] [place] [address] Gastroenterology 06/10/22 Ingrid Morales PA-C [address] [place] [address] General Surgery 06/10/22 Cabinet Maker Relationship Specialty Start Date End Date Ricky Bradley MD [address] [place] [address] PCP - General 02/05/02 Ricky Bradley MD [address] [place] [address] Referring Internal Medicine 12/07/21 Ricky Bradley MD [address] [place] [address] Home Care Provider Internal Medicine 12/07/21 Leda Christensen, PT [address] [place], [place] [address] Life Skills Consultant Post Acute Care 12/14/21 Kai Poon PA-C [address] [place] [address] Gastroenterology 06/10/22 Ingrid Morales PA-C [address] [facility] [place] [address] General Surgery 06/10/22 Cabinet Maker Relationship Specialty Start Date End Date Ricky Bradley MD [address] [place] [address] PCP - General 02/05/02 Ricky Bradley MD [address] [place] [address] Referring Internal Medicine 12/07/21 Ricky Bradley MD [address] [place] [address] Home Care Provider Internal Medicine 12/07/21 Leda Christensen, PT [address] [place], [place] [address]31 Life Skills Consultant Post Acute Care 12/14/21 Kai Poon PA-C [address] [place] [address] Gastroenterology 06/10/22 Ingrid Morales PA-C [address] [place] [address] General Surgery 06/10/22 Cabinet Maker Relationship Specialty Start Date End Date Ricky Bradley MD [address] [facility], [place] [address] PCP - General 02/05/02 Ricky Bradley MD [address] [place] [address] Referring Internal Medicine 12/07/21 Ricky Bradley MD [address] [place] [address] Home Care Provider Internal Medicine 12/07/21 Leda Christensen, PT [address] [place] [address] Life Skills Consultant Post Acute Care 12/14/21 Kai Poon PA-C [address] [place] [address] Gastroenterology 06/10/22 Ingrid Morales PA-C [address] [place] [address] General Surgery 06/10/22 Cabinet Maker Relationship Specialty Start Date End Date Ricky Bradley MD [address] [place] [address] PCP - General 02/05/02 Ricky Bradley MD [address] [facility] [place] [address] Referring Internal Medicine 12/07/21 Ricky Bradley MD [address] [facility] [place] [address] Home Care Provider Internal Medicine 12/07/21 Leda Christensen, PT [address] [place] [address] Life Skills Consultant Post Acute Care 12/14/21 Kai Poon PA-C [address] [place] [address] Gastroenterology 06/10/22 Ingrid Morales PA-C [address] [facility] [place] [address] General Surgery 06/10/22 Cabinet Maker Relationship Specialty Start Date End Date Ricky Bradley MD [address] [facility] [place] [address] PCP - General 02/05/02 Ricky Bradley MD [address] [facility] [place] [address] Referring Internal Medicine 12/07/21 Ricky Bradley MD [address] [facility] [place] [address] Home Care Provider Internal Medicine 12/07/21 Kai Poon PA-C [address] [place] [address] Gastroenterology 06/10/22 Ingrid Morales PA-C [address] [place] [address] General Surgery 06/10/22 Cabinet Maker Relationship Specialty Start Date End Date Ricky Bradley MD [address] [place] [address] PCP - General 02/05/02 Ricky Bradley MD [address] [place] [address] Referring Internal Medicine 12/07/21 Ricky Bradley MD [address] [facility] [place] [address] Home Care Provider Internal Medicine 12/07/21 Kai Poon PA-C [address] [place] [address] Gastroenterology 06/10/22 Ingrid Morales PA-C [address] [place] [address] General Surgery 06/10/22 Cabinet Maker Relationship Specialty Start Date End Date Ricky Bradley MD [address] [facility] [place] [address] PCP - General 02/05/02 Ricky Bradley MD [address] [place] [address] Referring Internal Medicine 12/07/21 Ricky Bradley MD [address] [place] [address] Home Care Provider Internal Medicine 12/07/21 Kai Poon PA-C [address] [place] [address] Gastroenterology 06/10/22 Ingrid Morales PA-C [address] [place] [address] General Surgery 06/10/22 Cabinet Maker Relationship Specialty Start Date End Date Ricky Bradley MD [address] [place] [address] PCP - General 02/05/02 Ricky Bradley MD [address] [place] [address] Referring Internal Medicine 12/07/21 Ricky Bradley MD [address] [place] [address] Home Care Provider Internal Medicine 12/07/21 Kai Poon PA-C [address] [facility] [place] [address] Gastroenterology 06/10/22 Ingrid Morales PA-C [address] [place] [address] General Surgery 06/10/22 Cabinet Maker Relationship Specialty Start Date End Date Ricky Bradley MD [address] [place] [address] PCP - General 02/05/02 Ricky Bradley MD [address] [place] [address] Referring Internal Medicine 12/07/21 Ricky Bradley MD [address] [place] [address] Home Care Provider Internal Medicine 12/07/21 Kai Poon PA-C [address] [place], [place] [address] Gastroenterology 06/10/22 Ingrid Morales PA-C [address] [place] [address] General Surgery 06/10/22 Cabinet Maker Relationship Specialty Start Date End Date iRcky Bradley MD [address] [place] [address] PCP - General 02/05/02 Ricky Bradley MD [address] [place] [address] Referring Internal Medicine 12/07/21 Ricky Bradley MD [address] [place] [address] Home Care Provider Internal Medicine 12/07/21 Kai Poon PA-C [address] [place] [address] Gastroenterology 06/10/22 Ingrid Morales PA-C [address] [place] [address] General Surgery 06/10/22 Cabinet Maker Relationship Specialty Start Date End Date Ricky Bradley MD [address] [facility] [place] [address] PCP - General 02/05/02 Ricky Bradley MD [address] [facility] [place] [address] Referring Internal Medicine 12/07/21 Ricky Bradley MD [address] [facility] [place] [address] Home Care Provider Internal Medicine 12/07/21 Kai Poon PA-C [address] [place] [address] Gastroenterology 06/10/22 Ingrid Morales PA-C [address] [place] [address] General Surgery 06/10/22 Cabinet Maker Relationship Specialty Start Date End Date Ricky Bradley MD [address] [facility] [place] [address] PCP - General 02/05/02 Ricky Bradley MD [address] [facility] [place] [address] Referring Internal Medicine 12/07/21 Ricky Bradley MD [address] [facility] [place] [address] Home Care Provider Internal Medicine 12/07/21 Kai Poon PA-C [address] [place] [address] Gastroenterology 06/10/22 Ingrid Morales PA-C [address] [place] [address] General Surgery 06/10/22 Cabinet Maker Relationship Specialty Start Date End Date Ricky Bradley MD [address] [place], [place] [address] PCP - General 02/05/02 Ricky Brdaley MD [address] [place] [address] Referring Internal Medicine 12/07/21 Ricky Bradley MD [address] [place] [address] Home Care Provider Internal Medicine 12/07/21 Leda Christensen, PT [address] [place] [address] Life Skills Consultant Post Acute Care 12/14/21 12/05/22 Cabinet Maker Relationship Specialty Start Date End Date Ricky Bradley MD [address] [place] [address] PCP - General 02/05/02 Ricky Bradley MD [address] [place], [place] [address] Referring Internal Medicine 12/07/21 Ricky Bradley MD [address] [place], [place] [address] Home Care Provider Internal Medicine 12/07/21 Kai Poon PA-C [address] [place] [address] Gastroenterology 06/10/22 Ingrid Morales PA-C [address] [place] [address] General Surgery 06/10/22 Cabinet Maker Relationship Specialty Start Date End Date Ricky Bradley MD [address] [place] [address] PCP - General 02/05/02 Ricky Bradley MD [address] [place] [address] Referring Internal Medicine 12/07/21 Ricky Bradley MD [address] [place] [address] Home Care Provider Internal Medicine 12/07/21 Kai Poon PA-C [address] [place] [address] Gastroenterology 06/10/22 Ingrid Morales PA-C [address] [place] [address] General Surgery 06/10/22 Cabinet Maker Relationship Specialty Start Date End Date Ricky Bradley MD [address] [place] [address] PCP - General 02/05/02 Ricky Bradley MD [address] [place] [address] Referring Internal Medicine 12/07/21 Ricky Bradley MD [address] [facility] [place] [address] Home Care Provider Internal Medicine 12/07/21 Kai Poon PA-C [address] [place], [place] [address] Gastroenterology 06/10/22 Ingrid Morales PA-C [address] [place] [address] General Surgery 06/10/22 Cabinet Maker Relationship Specialty Start Date End Date Ricky Bradley MD [address] [place] [address] PCP - General 02/05/02 Ricky Bradley MD [address] [place] [address] Referring Internal Medicine 12/07/21 Ricky Bradley MD [address] [facility] [place] [address] Home Care Provider Internal Medicine 12/07/21 Kai Poon PA-C [address] [place], [place] [address] Gastroenterology 06/10/22 Ingrid Morales PA-C [address] [place] [address] General Surgery 06/10/22 FOR RECORDS PERTAINING TO [...] BE BASED ON THE PRIMARY CLINICAL RECORDS. [facility] [employer] [facility]. provides no warranty or guarantee of the accuracy or completeness of information in this document.
[2023-05-24] MEDS: 0.9% Normal Saline (1000mL) 1,000 ML 50 ML IV (20:55)
[2023-05-24] MEDS: 0.9% Saline Lock 10 ML Syringe IV (20:55)
[2023-05-25] VITALS (12 sets, daily range): BP systolic 88–121; BP diastolic 59–87; PULSE 60–125; RESP 12–18; TEMP 36.1–36.6; O2SAT 90–98; BMI 34.4; BMI 36.0
--- NOTE | 2023-05-25 01:02 | CPS ---
Pt has own CPAP machine on and sleeping.
[2023-05-25] MEDS: Albuterol 2.5 MG/3 ML VIAL.NEB. INHALATION ×3 (07:27→19:30)
[2023-05-25 07:33] LABS: Absolute Lymphocyte Count 0.27 X10^3/uL (0.83-4.51); Absolute Neutrophil Count 3.6 X10^3/uL (2.0-7.7); Basophil# 0.01 X10^3/uL; Basophil% 0.2 % (0-1); Eosinophil# 0.08 X10^3/uL; Eosinophils% 1.9 % (0-5); Hematocrit 34.8 % (40-54); Hemoglobin 10.9 g/dL (13.0-16.5); Lymphocyte # 0.27 X10^3/ul (0.83-4.51); Lymphocyte % 6.4 % (19-41); Mean Corp Hgb Conc 31.3 g/dL (32-36); Mean Corpuscular Hgb 33.2 pg (27.0-32.0); Mean Corpuscular Volume 106.1 fL (80-94); Mean Platelet Vol. 11.5 fl (6.2-12.0); Monocyte# 0.32 X10^3/uL; Monocyte% 7.5 % (0-10); NRBC Flagged by Analyzer 0 % (0-5); Neutrophil # 3.55 X10^3/uL (2.7-7.7); Neutrophil % 83.5 % (47-70); POSITIVE COUNT YES; POSITIVE DIFFERENTIAL YES; POSITIVE MORPHOLOGY YES; RBC Distribution Width CV 16.9 % (11.6-14.6); RBC Distribution Width SD 65.6 fl (35.1-43.9); Red Blood Count 3.28 M/mm3 (4.6-6.2); White Blood Count 4.3 K/mm3 (4.4-11.0)
--- NOTE | 2023-05-25 07:34 | PN.HOSP_ITS ---
Reason for Visit Reason for Visit: Diagnoses Anemia in other chronic diseases classified elsewhere (05/24/23) Obstructive sleep apnea (adult) (pediatric) (05/24/23) Gastro-esophageal reflux disease without esophagitis (05/24/23) Unspecified cirrhosis of liver (05/24/23) Gout, unspecified (05/24/23) Other symptoms and signs involving the nervous system (05/24/23) Dependence on other enabling machines and devices (05/24/23) Subjective Subjective Patient overnight with no acute events per self and per nursing report. He did have negative MRI the day prior and upon evaluation/further imaging it was evident that he did have a consolidation therefore antibiotic therapy was initiated as well as further workup to evaluate pneumonia. Patient was evaluated by telemetry neurology to be cautious and at this point they do believe that his presentation is likely infectious secondary to his new pneumonia however believe it could be related with his cirrhotic disease and possibly also hypercalcemia. They recommended titrating bowel movements 2-3 daily. Neurology also although lower suspicion planned EEG for the patient to be cautious. Patient denies fevers, chills, nausea, emesis, abdominal pain, chest pain or dyspnea. Objective Data Objective Data Vital Signs: Vital Signs Temp Pulse Resp BP Pulse Ox O2 Del Method 97.4 F L 106 H 16 88/75 L 98 CPAP 05/25/23 06:13 05/25/23 06:13 05/25/23 06:13 05/25/23 06:13 05/25/23 06:13 05/25/23 06:13 Oxygen Delivery Method CPAP Weight: 251 lb 5.231 oz Body Mass Index (BMI) 36.0 Intake & Output: Intake and Output for Last 24 Hours 05/23/23 05/24/23 05/25/23 23:59 23:59 23:59 Intake Total 500 / 500 0 / 0 Output Total 0 / 0 200 / 200 Balance 500 / 500 -200 / -200 Lab / Micro Data 05/25/23 07:10 05/25/23 08:19 Labs: Laboratory Results - last 24 hr 05/24/23 15:15: WBC 4.9, RBC 3.26 L, Hgb 10.7 L, Hct 32.7 L, MCV 100.3 H, MCH 32.8 H, MCHC 32.7, RDW Std Deviation 61.5 H, RDW Coeff of Raina 16.9 H, Plt Count 58 L, MPV 11.9, Immature Gran % (Auto) 0.200, Neut % (Auto) 87.8 H, Lymph % (Auto) 5.1 L, [place] % (Auto) 5.9, Eos % (Auto) 0.8, Baso % (Auto) 0.2, Absolute Neuts (auto) 4.3, Absolute Lymphs (auto) 0.25 L, Nucleated RBC % 0, Sodium 140, Potassium 3.8, Chloride 110 H, Carbon Dioxide 29.0, Anion Gap 1 L, BUN 40 H, Creatinine 1.19, Estim Creat Clear Calc 57.96, Est GFR (MDRD) Af Amer 75, Est G FR (MDRD) Non-Af 62, BUN/Creatinine Ratio 33.6 H, Glucose 119 H, Calcium 12.5 H, Total Bilirubin 0.80, Direct Bilirubin 0.30, AST 36, ALT 29, Alkaline Phosphatase 156 H, Ammonia 34.0 H, Troponin I High Sens 24, B-Natriuretic Peptide 104.6 H, Total Protein 5.9 L, Albumin 2.3 L, Globulin 3.6, Albumin/Glob ulin Ratio 0.6 L Micro: Microbiology 05/24/23 15:15 Mucosa - Nose SARS-CoV-2, Influenza & RSV (PCR) - Final Radiography Diagnostic Testing: Radiology Impression Chest X-Ray 05/24/23 15:22 IMPRESSION: Blunting of the right costophrenic angle with bibasilar atelectasis and/or infiltrates as well as increased markings in the right upper lobe abutting the right minor fissure. Follow-up recommended. Electronically Signed: Gary Barreto MD at 15:35 EST , Brain CT 05/24/23 15:25 IMPRESSION: Chronic involutional changes of the brain. Electronically Signed: Gary Barreto MD at 15:43 EST , Brain MRI 05/24/23 17:54 IMPRESSION: Involutional changes of the brain, as described above. Electronically Signed: Bubba Mendoza MD at 21:02 EST , Head/Neck CTA 05/24/23 17:54 IMPRESSION: No significant major vessel vaso-occlusive disease in the head or neck. Right upper lobe consolidation. Electronically Signed: Michael Lion MD at 20:14 EST , Physical Exam Narrative Physical Examination: General: Awake, alert, oriented to self, place, recent events, remains cooperative, laying in the PCU bed, no acute distress. He notes feeling improved since initial presentation. Skin: Normal color, normal turgor, no icterus, no cyanosis except for occasional staged ecchymoses, stasis disease. HEENT: AT/NC, EOMI, PERRLA, MMM. Lungs: Diminished, diffusely, greater posterior, mildly decreased effort, no evidence of any distress, no rales, ronchi or wheezing. Heart: Regular rate and rhythm; no gallop, rub audible. Abdomen: Soft, obese, mild tension but unclear if this is patient's obesity or fluid, unable to ascertain distention given patient habitus. Extremities: No cyanosis, no clubbing, bilateral lower extremity not markedly pitting ankle edema. Neurological: Patient awake, alert, oriented as noted, cognitive function intact; pupils equally reactive to light and accommodation, cranial nerves grossly normal, moving all 4 extremities except significant left-sided hemiplegia left lower extremity, strength he notes mildly improved since initial presentation, remains moderately globally decreased. Psychiatric: Affect appears fatigued otherwise normal, no acute evidence of depressive or anxiety feelings. Assessment & Plan Assessment/Plan (1) Encephalopathy acute: PLAN: Plan The patient is an 83 y/o M w/ PMHx: Chronic anemia/AOCD, CKD stage III unclear subtype, HTN, HLD, Hx CVA, Anxiety an Depression, Asthma, Valvular Heart Disease, PAF/Flutter, Nonobstructive CAD, DEMI on BIPAP, Non-alcoholic Liver Cirrhosis w/ Liver cancer w/ associated chronic thrombocytopenia/anemia/mild hyperammonemia, Obesity who presents to the [facility] ED on 05/24/23 with history of worsening fatigue, malaise, debility and weakness with chronic left lower extremity debilities following previous stroke but worse with increased lethargy prompting family to bring him into the ED for evaluation with initial concern for possible stroke. 1. Acute Encephalopathy, Adult FTT, multifactorial as noted also #2, #3, increased debility/weakness above baseline w/ Possible RUL Pneumonia/RUL Consolidation with possible gram-negative versus gram-positive organism versus Possible Metastatic Disease: Admission labs included CBC with WBC 4.9, N 110.7, MCV 100.3, platelet 58 with lymphopenia, CMP with chloride 110, BUN/creatinine 40/1.19, glucose 119, calcium 12.5, hepatic profile with alk phos 156, ammonia 34, BNP 104.6, troponin 24, chest x-ray with blunting right costophrenic angle with bibasilar atelectasis with increased markings right upper lobe abutting the right minor fissure of unclear significance, possibly atelectasis versus infiltrate, CT brain with chronic involutional changes, CTA head and neck with no significant major vaso-occlusive disease in the head or neck, evidence of a right upper lobe consolidation, MRI of the brain with chronic involutional changes with no acute intracranial findings. Admitted to PCU, given MRI without acute CVA suspect process in RUL likely associated with encephalopathy and increased weakness, will maintain on oxygen with wean as tolerated to room air, continue ATC budesonide, PRN albuterol, initiated given history of recent hospitalization within the 90-day jackelyn on IV Zosyn and Vancomycin however given negative MRSA screen will de-escalate off Zosyn therapy. Encourage HOB, IS parameters w/ pending sputum cultures and urine antigens. Procalcitonin 0.17. Bld cx x 2 obtained in the ED. PT/OT/ST/CM consulted for discharge planning. Given history will need repeat dedicated CT following this treatment to assure not in fact metastatic disease component. 2. Increased left lower extremity weakness above baseline with encephalopathy, stroke ruled out, likely secondary to #1 as noted: Upon admission concern for initially recurrent stroke with baseline left-sided hemiplegia but worsened, CT brain with chronic involutional changes, CTA head and neck with no significant major vaso-occlusive disease in the head or neck, evidence of a right upper lobe consolidation, MRI of the brain with chronic involutional changes with no acute intracranial findings with stroke ruled out, allergy to statin with significant thrombocytopenia thus antiplatelet deferred and lieu suspicion for stroke upon admission, echo with bubble study has been requested, given no evidence of any stroke once appropriate will restart BP medication however currently patient is hypotensive or low normal, PT/OT/ST/CM consultations for discharge planning. [facility] teleneurology consulted and at this point they do believe that his presentation is likely infectious secondary to his new pneumonia however believe it could be related with his cirrhotic disease and possibly also hypercalcemia. They recommended titrating bowel movements 2-3 daily. Neurology also although lower suspicion planned EEG for the patient to be cautious. 3. Hypercalcemia: Likely contributing to his weakness and altered mental status most probably secondary to underlying malignancy, has been previously been higher, will judiciously hydrate given propensity for volume overload and trend CMP, ionized calcium pending. 4. Nonalcoholic cirrhosis with underlying liver cancer with associated pancytopenia, chronic/chronic iron deficiency anemia: Patient following with Dr. Dahl, planned upcoming follow-up MRI of his liver this coming Monday per his report, continue chronic oral iron supplementation, will continue patient home metoprolol as BP allows, rifaximin. NH level 34; however, given constipation complaint noted to Neurology per patient will administer lactulose 20 mg BID regimen to titrate bowel movements, will continue to re-evaluate and alter as needed. Will also obtain abdominal US as may potentially also need paracentesis but with habitus difficult evaluation. 5. PAF not chronically anticoagulated secondary to his underlying liver disease process with thrombocytopenia, maintained on diltiazem, encourage continued outpatient follow-up with cardiology as previously arranged. 6. Valvular heart disease: Patient status post AV bioprosthetic valve, echo 11/06 with EF 60% with indeterminate diastolic function with severely dilated RV and global RV dysfunction, severe mitral annular calcification with RVSP 44 mmHg. 7. Depression and anxiety: Will continue patient home sertraline regimen. 8. GERD: We will continue patient on PPI. 9. Gout: We will continue patient home allopurinol regimen. 10. DEMI: BiPAP nightly. 11. DVT prophylaxis: SCDs. Holding chemoprophylaxis concept given significant thrombocytopenia. 12. CODE STATUS: DNR-CCA, no intubation. Charges/Coding Visit Charges Inpatient E&M: 28303 Subs Hosp L3
[2023-05-25 07:43] LABS: Platelet Count 50 K/mm3 (150-450)
[2023-05-25 07:44] LABS: Differential Indicated SCAN CRITERIA MET
[2023-05-25 09:00] LABS: Procalcitonin 0.17 ng/mL (0.00-0.09)
[2023-05-25 09:02] LABS: Anisocytosis 1+; Platelet Estimate MOD DEC (ADEQ)
[2023-05-25 09:02] LABS: ALB/GLOB Ratio 0.5 RATIO (0.9-2.4); AST(SGOT) 42 U/L (15-37); Alanine Aminotransfer ALT/SGPT 24 U/L (16-61); Albumin, Serum 1.9 g/dL (3.2-5.0); Alkaline Phosphatase 132 U/L (45-117); Anion Gap 2 (5-15); BUN 35 mg/dL (7-18); BUN/Creat Ratio 35.9 RATIO (10-20); Chloride 116 mmol/L (98-107); Cholesterol 107 mg/dL (200); Creatinine, Serum 0.98 mg/dL (0.70-1.30); EST Glomerular Filtration Rate 78 mL/min (>60); Est Glom Filt Rate - Afr Amer 94 mL/min (>60); Estimated Creatinine Clearance 70.95 ml/min; Globulin 3.7 g/dL (2.2-4.2); Glucose 92 mg/dL (74-106); High Density Lipoprotein 23 mg/dL; Magnesium 2.3 mg/dL (1.6-2.6); Potassium 3.9 mmol/L (3.5-5.1); Protein, Total 5.6 g/dL (6.4-8.2); Sodium Level 141 mmol/L (136-145); Thyroid Stim Hormone (TSH) 3.28 uIU/mL (0.358-3.74); Triglycerides 79 mg/dL; Very Low Density Lipoprotein 16 mg/dL (5-40)
[2023-05-25 09:09] LABS: Ionized Calcium 6.38 mg/dL (4.36-5.20)
[2023-05-25] MEDS: Vancomycin HCl 2,000 MG in 0.9% Normal Saline (500mL Bag) 500 ML 250 MG IV (09:17)
[2023-05-25] MEDS: Piperacil/Tazobactam 3.375 GM in 0.9% Normal Saline (50mL MB+) 50 ML IV ×2 (09:49→20:51)
[2023-05-25] MEDS: Ferrous Sulfate 325 MG Tablet PO ×2 (09:49→18:03)
[2023-05-25] MEDS: Pantoprazole Sodium 40 MG Tablet PO (09:49)
[2023-05-25] MEDS: rifAXIMin 550 MG Tablet PO ×2 (09:50→20:43)
[2023-05-25] MEDS: Allopurinol 300 MG Tablet PO (09:50)
[2023-05-25] MEDS: dilTIAZem CD 120 MG Capsule PO (09:50)
[2023-05-25] MEDS: Tolterodine Tartrate 4 MG CAP.SA PO (09:50)
[2023-05-25] MEDS: Metoprolol Tartrate 25 MG Tablet PO ×2 (09:50→20:43)
--- NOTE | 2023-05-25 10:07 | PCM.RX.CS ---
Consult Antibiotic Management Pharmacy has been consulted to manage selected antibiotic: Vancomycin Type of Intervention Type of Consult: New start Suspected Infection Suspected Infection: Pneumonia Labs Labs: Sodium 141 mmol/L (136-145) 05/25/23 08:19 Potassium 3.9 mmol/L (3.5-5.1) 05/25/23 08:19 Chloride 116 mmol/L (98-107) H 05/25/23 08:19 Carbon Dioxide 23.0 mmol/L (21.0-32.0) 05/25/23 08:19 Anion Gap 2 (5-15) L 05/25/23 08:19 BUN 35 mg/dL (7-18) H 05/25/23 08:19 Creatinine 0.98 mg/dL (0.70-1.30) 05/25/23 08:19 Est GFR (MDRD) Af Amer 94 mL/min (>60) 05/25/23 08:19 Est GFR (MDRD) Non-Af 78 mL/min (>60) 05/25/23 08:19 BUN/Creatinine Ratio 35.9 RATIO (10-20) H 05/25/23 08:19 Glucose 92 mg/dL (74-106) 05/25/23 08:19 Microbiology Microbiology: Microbiology 05/24/23 15:15 Mucosa - Nose SARS-CoV-2, Influenza & RSV (PCR) - Final Goal Trough Goal Trough: 15-20 mcg/mL Pharmacy Plan for Drug Dosing Pharmacy Plan for Drug Dosing: NEW START IV VANCOMYCIN Consulting Physician: Dr. Menjivar Indication: Pneumonia r/o Goal Trough: 15-20 SrCr: 0.98 CrCl: 58 mL/min (based on AdjBW) Comments: Patient ordered a vancomycin 2000mg IV x1 loading dose administered 05/25 @916 Vancomycin Dose: 1250mg IV Q12hr to start 05/25/23 @2100 Pending Level: 05/26/23 @2030, prior to 4th total dose per protocol Pharmacy Service will continue to monitor and adjust dosing as required.
[2023-05-25 10:11] LABS: M R Staph aureus DNA By PCR Negative (Negative); Probe Check PASS; Specimen Processing Control PASS
--- NOTE | 2023-05-25 10:57 | NURSING ---
Daughter Ingris updated on poc will be here at noon for [facility]
--- NOTE | 2023-05-25 11:48 | NEURO.CONS ---
Assessment and Plan: Neuro Assessment/Plan FRANCISCO MACK is a 83 M with a past medical history of history of cirrhosis, liver cancer, GERD, pafib, anemia, gout CVA, being evaluated by Teleneurology for confusion. On history, pt appears to have become gradually more confused over the last several days and has had gradually distended abdomen though. Exam with severe delirium, non-focal motor exam. MRI Brain with no stroke. Ddx includes metabolic /infection encephalopathy (hypercalcemia, pneumonia), hepatic encephalopathy given lack of bowel movements, cannot rule out intermittent seizure but unlikely. Plan: - routine EEG - management of pneumonia and hypercalcemia per primary team - recommend titrating bowel movements with miralax or lactulose to 2-3x a day. I personally attended this patient and spent a total time of 45 minutes evaluating this patient including clinical assessment, review of chart, medical history imaging, and determining appropriate treatment and workup. HPI Consult Data Date of Consult: 05/25/23 HPI Narrative HPI Narrative: FRANCISCO MACK, is a 83-year-old male history of cirrhosis, liver cancer, GERD, pafib, anemia, gout CVA presented to [facility] ED 05/24/2023 from assisted living for altered mental status. Reportedly he has not been himself since Monday and at that time had been having some difficulty talking and at times slurred speech. No recent falls but daughter noted some contracture of right fingers on right hand but was able to open hand in ED without significant difficulty. Has been having difficulty using his left leg however. Family was concerned for stroke with patient due to his left leg weakness and not being able to talk for a period of time earlier. CT brain in ED negative, ammonia 34, patiently mildly tachycardic. Lab workup otherwise similar to patient's baseline/fairly benign. Given there is still concern patient may have had recent stroke hospitalist contacted for admission for stroke rule out. Patient evaluated at bedside with family present who provided most of the history. Reportedly patient has been at [facility] and had been doing fairly well and was a 1 assist and his daughter saw him on and he was not having any symptoms or changes in mental status, she saw them on Monday and said he was slow to answer and thought his speech may be slightly slurred but he was evaluated and it did not seem that he had a stroke so plan was to proceed with him being transferred to [facility] living. When he was evaluated there today he was not using his left leg at all and required multiple people to assist him which prompted patient coming to the ED. Reportedly his left leg chronically does not work as well as his right but he usually is able to use it somewhat and this level of dysfunction is not common for him. Also in ED complaining of some left-sided rib pain, was here in March with pneumonia and has had some cough residual since that time. Additional concern that patient has his hands clenched and holds them like that. Family at bedside report patient does seem slightly better but he is not back to baseline. Neurologic History Normally pt very talktaive and jovial. Has baseline difficulty with mobility and that is why he has been at rehab. Recently was told he needs to be transitioned to an ECF but had not moved recently. Was last seen by family at baseline last . Monday evening he was having a lot of difficulty answering questions. Nothing clearly like this has happened before. Possible CRAO in the past but no confusion. Saw a neurologist several yrs ago for neuropathy and he was told that he may have had TIAs in the past. Sometimes he has had episodes when speech will be difficult and have difficulty with words - slurred speech - but not sustained confusion like now. He continues to have diminished movement of the L leg - some of that is at baseline but some is worse than normal. Histroy obtained from his daughter. Has never had hepatic encephalopathy in the past. The cirrhosis is a new diagnosis. Monday night has had BM, his abdomen has become distended over the last several day. He has had issues with high calcium. [facility] Medical History (Updated 05/25/23 @ 07:[address] Joan Menjivar MD) Anemia Anemia in chronic kidney disease Anemia of chronic disease Aortic valve disorder Asthma Body mass index (BMI) 40.0-44.9, adult Chronic acquired lymphedema CKD (chronic kidney disease), stage III Depression Essential (primary) hypertension GERD (gastroesophageal reflux disease) Gout History of cerebrovascular accident History of splenomegaly Hyperlipemia Liver cancer Morbid obesity Multiple lung nodules New onset atrial flutter Non-alcoholic cirrhosis Nonobstructive atherosclerosis of coronary artery Nonrheumatic aortic (valve) stenosis OAB (overactive bladder) Obesity Obesity (BMI 30-39.9) DEMI treated with BiPAP Osteoarthritis Paroxysmal A-fib PCK (polycystic kidney disease) Peripheral neuropathy Polycystic kidney disease 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) Right bundle branch block (RBBB) Splenomegaly Thrombocytopenia Thrombocytopenia Urge incontinence Home Medications allopurinol 300 mg tablet 300 mg PO DAILY gout 04/12/16 [History Last Taken 04/07/19] fenofibrate nanocrystallized 48 mg tablet 48 mg PO DAILY cholesterol 04/12/16 [History Last Taken 04/07/19] magnesium oxide 400 mg (241.3 mg magnesium) tablet 400 mg PO DAILY supplement 04/12/16 [History Last Taken 04/07/19] vqxilbca-xkw-ycmdo acid 0.4 mg-lycopene 300 mcg-lutein 250 mcg tablet 1 ea PO DAILY vitamin 04/12/16 [History Last Taken 04/07/19] sertraline 100 mg tablet 50 mg PO QHS depression 09/05/19 [History Last Taken Unknown] aspirin 81 mg tablet,delayed release (Adult Aspirin Regimen) 81 mg PO DAILY 11/10/20 [History Last Taken Unknown] ferrous sulfate 325 mg (65 mg iron) tablet 325 mg PO BID 11/10/20 [History Last Taken Unknown] albuterol sulfate 90 mcg/actuation aerosol inhaler 2 puff inhalation Q6H PRN ASTHMA 05/25/21 [History Last Taken Unknown] fluticasone propionate 50 mcg/actuation nasal spray,suspension 1 spray intranasal DAILY 05/25/21 [History Last Taken Unknown] omeprazole 40 mg capsule,delayed release 40 mg PO DAILY 05/25/21 [History Last Taken Unknown] oxybutynin chloride 15 mg tablet,extended release 24 hr 30 mg PO DAILY 05/25/21 [History Last Taken Unknown] ascorbic acid (vitamin C) 500 mg capsule 500 mg PO DAILY 05/17/22 [History Last Taken Unknown] furosemide 20 mg tablet 20 mg PO Q OTHER DAY 05/17/22 [History Last Taken Unknown] nitroglycerin 0.4 mg sublingual tablet 0.4 mg sublingual Q5M PRN chest pain 05/17/22 [History Last Taken Unknown] lidocaine 5 % topical patch (Lidoderm) 1 patch topical DAILY #15 ea 09/11/22 [Rx Last Taken Unknown] cyanocobalamin (vitamin B-12) 5,000 mcg capsule 2,500 mcg PO DAILY 10/29/22 [History Last Taken Unknown] rifaximin 550 mg tablet (Xifaxan) 550 mg PO BID 10/29/22 [History Last Taken Unknown] diltiazem HCl 120 mg capsule,extended release 24 hr 120 mg PO DAILY #30 caps 12/07/22 [Rx Last Taken Unknown] metoprolol tartrate 25 mg tablet 25 mg PO BID #60 tabs 12/07/22 [Rx Last Taken Unknown] fluticasone furoate 200 mcg-vilanterol 25 mcg/dose inhalation powder (Breo Ellipta) 1 inh inhalation DAILY 04/06/23 [History Last Taken Unknown] cefdinir 300 mg capsule 300 mg PO BID 4 days #8 caps 04/11/23 [Rx Last Taken Unknown] ferrous sulfate 325 mg (65 mg iron) tablet,delayed release mg PO 05/24/23 [History Last Taken Unknown] Allergy/AdvReac Type Severity Reaction Status Date / Time hydrocodone [From Vicodin] Allergy Other Verified 05/24/23 14:53 strawberry Allergy Hives Verified 05/24/23 14:53 venom-honey bee Allergy Anaphylaxis Verified 05/24/23 14:53 [bee venom (honey bee)] adhesive tape AdvReac Rash Verified 05/24/23 14:53 atorvastatin AdvReac PT UNSURE Verified 05/24/23 14:53 OF REACTION montelukast AdvReac PT UNSURE Verified 05/24/23 14:53 OF REACTION Family History Father CAD (coronary artery disease) Brother Diabetes Mother Heart disease Surgical History Aortic valve replaced History of aortic valve replacement with bioprosthetic valve (01/18/11) History of hip surgery (08/2019) History of knee replacement History of left heart catheterization (01/05/11) History of tonsillectomy History of total left hip arthroplasty History of total left hip replacement History of umbilical hernia repair Social History household members: none Smoking Status: Never smoker alcohol intake: never substance use type: does not use Vital Signs Vital Signs Vital Signs: 05/24/23 14:47 05/24/23 14:53 05/24/23 16:18 Temperature 96.6 F L Temperature Source Temporal Pulse Rate 126 H 128 H Pulse Strength Respiratory Rate 13 16 Respiratory Effort Normal Respiratory Depth Respiratory Pattern Normal Blood Pressure 114/88 H 131/95 H Blood Pressure Mean 96 107 Blood Pressure Source Blood Pressure Position Blood Pressure Location Pulse Ox 95 99 Oxygen Delivery Method Room Air Room Air Oxygen Flow Rate (L/min) 05/24/23 17:04 05/24/23 18:35 05/24/23 19:56 Temperature 97.7 F L 97.2 F L Temperature Source Oral Temporal Pulse Rate 130 H 121 H 84 Pulse Strength Respiratory Rate 12 22 H 16 Respiratory Effort Respiratory Depth Respiratory Pattern Blood Pressure 142/109 H 131/96 H 122/101 H Blood Pressure Mean 120 107 108 Blood Pressure Source Monitor Monitor Blood Pressure Position Semi-Fowlers Semi-Fowlers Blood Pressure Location Right Arm Right Arm Pulse Ox 96 95 94 Oxygen Delivery Method Room Air Room Air Room Air Oxygen Flow Rate (L/min) 05/24/23 22:00 05/24/23 20:11 05/24/23 23:56 Temperature 97.2 F L Temperature Source Temporal Pulse Rate 62 Pulse Strength Weak (1+) Respiratory Rate 16 Respiratory Effort Normal Non-Labored Respiratory Depth Normal Respiratory Pattern Normal Blood Pressure 102/88 H Blood Pressure Mean 92 Blood Pressure Source Monitor Blood Pressure Position Semi-Fowlers Blood Pressure Location Right Arm Pulse Ox 93 Oxygen Delivery Method Room Air CPAP Oxygen Flow Rate (L/min) 05/24/23 21:35 05/25/23 03:13 05/25/23 03:44 Temperature 97.2 F L Temperature Source Temporal Pulse Rate 125 H Pulse Strength Respiratory Rate 16 Respiratory Effort Normal Non-Labored Respiratory Depth Normal Respiratory Pattern Normal Blood Pressure 98/87 H Blood Pressure Mean 90 Blood Pressure Source Monitor Blood Pressure Position Semi-Fowlers Blood Pressure Location Right Arm Pulse Ox 93 97 Oxygen Delivery Method Room Air CPAP CPAP Oxygen Flow Rate (L/min) 05/25/23 05:29 05/25/23 06:13 05/25/23 08:21 Temperature 97.4 F L 97.4 F L 97 F L Temperature Source Temporal Temporal Axillary Pulse Rate 124 H 106 H 124 H Pulse Strength Respiratory Rate 16 16 18 Respiratory Effort Respiratory Depth Respiratory Pattern Blood Pressure 92/76 88/75 L 107/80 Blood Pressure Mean 81 79 89 Blood Pressure Source Monitor Monitor Monitor Blood Pressure Position Semi-Fowlers Semi-Fowlers Semi-Fowlers Blood Pressure Location Left Arm Left Arm Left Forearm Pulse Ox 94 98 92 Oxygen Delivery Method CPAP CPAP Room Air Oxygen Flow Rate (L/min) 05/25/23 07:27 05/25/23 07:27 05/25/23 09:50 Temperature Temperature Source Pulse Rate 116 H 124 H Pulse Strength Respiratory Rate 12 Respiratory Effort Respiratory Depth Respiratory Pattern Normal Blood Pressure 107/80 Blood Pressure Mean Blood Pressure Source Blood Pressure Position Blood Pressure Location Pulse Ox 90 Oxygen Delivery Method Room Air Oxygen Flow Rate (L/min) 05/25/23 08:25 05/25/23 11:24 Temperature 97.8 F Temperature Source Temporal Pulse Rate 60 Pulse Strength Respiratory Rate 17 Respiratory Effort Normal Non-Labored Respiratory Depth Normal Respiratory Pattern Normal Blood Pressure 121/78 H Blood Pressure Mean 92 Blood Pressure Source Monitor Blood Pressure Position Semi-Fowlers Blood Pressure Location Right Arm Pulse Ox 97 Oxygen Delivery Method Nasal Cannula Nasal Cannula Oxygen Flow Rate (L/min) 2 2 Weight Weight: 114 kg Body Mass Index (BMI) 36.0 NIHSS NIHSS Nursing Documentation NIHSS Nursing Documentation: NIH Stroke Scale Start: 05/24/23 15:25 Freq: Status: Discharge Protocol: Activity Type Activity Date Activity User E-sign Co-sign Detail Recorded Client Recorded Date Recorded By Document 05/24/23 15:25 [place] Desktop 05/24/23 15:26 [place] 05/24/23 15:25 NIH Stroke Scale [NIHSS] A score of 0 is normal or asymptomatic . Total possible score is 42. Inpatient: RN or Physician to activate a stroke alert for onset of new stroke symptoms or with NIHSS increase >/= 3 points. Following change in neurological status, NIHSS will be performed per physician order or more frequently PRN. -1a. Level of Consciousness Alert; keenly responsive -1b. LOC Questions Answers BOTH questions correctly. -1c. LOC Commands Performs both tasks correctly . -2. Best Gaze Normal -3. Visual No visual loss -4. Facial Palsy Normal symmetrical movements -5a. Left Arm No drift; arm holds 90 (or 45 ) degrees for full 10 seconds -5b. Right Arm No drift; arm holds 90 (or 45 ) degrees for full 10 seconds -6a. Left Leg Drift; leg falls by the end of 5- seconds, but does not hit bed -6b. Right Leg No drift; leg holds 30-degree position for full 5 seconds -7. Limb Ataxia Absent -8. Sensory Normal; no sensory loss -9. Best Language No aphasia; normal -10. Dysarthria Normal -11. Extinction and Inattention No abnormality -Total 1 Query Text:A score of 0 is normal or asymptomatic. Total possible score is 42 . ED: Notify Physician for NIHSS increase by > / = 3 points. Inpatient: RN or Physician to activate a stroke alert for NIHSS increase of > / = 3 points. Physical Exam Narrative -? General: Laying comfortably in bed; in no acute distress. -? HENT: Normal oropharynx and mucosa. Normal external appearance of ears and nose. Exophthalmos. -? Neck: Supple, no pain or tenderness -? CV:? No peripheral edema. -? Pulmonary:? Normal respiratory effort. -? Ext: No cyanosis, edema, or deformity -? Skin: No rash. Normal palpation of skin.? -? Musculoskeletal: full range of motion; no joint tenderness. Normal digits and nails by inspection. No clubbing. -? NEURO: -? Language: there is paucity of speech and pt intermittently follows commands but has poor attention. -? Cranial Nerves: PERRL 3 mm/brisk. EOMI, visual ayala full, no facial asymmetry -? Motor: arms are antigravity b/l, LE move in the plane of the bed Lab / Micro Data 05/25/23 07:10 05/25/23 08:19 Labs: Laboratory Results - last 24 hr 05/24/23 15:15: WBC 4.9, RBC 3.26 L, Hgb 10.7 L, Hct 32.7 L, MCV 100.3 H, MCH 32.8 H, MCHC 32.7, RDW Std Deviation 61.5 H, RDW Coeff of Raina 16.9 H, Plt Count 58 L, MPV 11.9, Immature Gran % (Auto) 0.200, Neut % (Auto) 87.8 H, Lymph % (Auto) 5.1 L, Hale % (Auto) 5.9, Eos % (Auto) 0.8, Baso % (Auto) 0.2, Absolute Neuts (auto) 4.3, Absolute Lymphs (auto) 0.25 L, Nucleated RBC % 0, Sodium 140, Potassium 3.8, Chloride 110 H, Carbon Dioxide 29.0, Anion Gap 1 L, BUN 40 H, Creatinine 1.19, Estim Creat Clear Calc 57.96, Est GFR (MDRD) Af Amer 75, Est GFR (MDRD) Non-Af 62, BUN/Creatinine Ratio 33.6 H, Glucose 119 H, Calcium 12.5 H, Total Bilirubin 0.80, Direct Bilirubin 0.30, AST 36, ALT 29, Alkaline Phosphatase 156 H, Ammonia 34.0 H, Troponin I High Sens 24, B-Natriuretic Peptide 104.6 H, Total Protein 5.9 L, Albumin 2.3 L, Globulin 3.6, Albumin/Globulin Ratio 0.6 L 05/25/23 07:10: WBC 4.3 L, RBC 3.28 L, Hgb 10.9 L, Hct 34.8 L, MCV 106.1 H D, MCH 33.2 H, MCHC 31.3 L, RDW Std Deviation 65.6 H, RDW Coeff of Raina 16.9 H, Plt Count 50 L*, MPV 11.5, Immature Gran % (Auto) 0.500, Neut % (Auto) 83.5 H, Lymph % (Auto) 6.4 L, Hale % (Auto) 7.5, Eos % (Auto) 1.9, Baso % (Auto) 0.2, Absolute Neuts (auto) 3.6, Absolute Lymphs (auto) 0.27 L, Nucleated RBC % 0, Differential Comment COMMENT, Diff Path Review August foll, Platelet Estimate MOD DEC, Anisocytosis 1+, Sodium Cancelled, Potassium Cancelled, Chloride Cancelled, Carbon Dioxide Cancelled, Anion Gap Cancelled, BUN Cancelled, Creatinine Cancelled, Estim Creat Clear Calc Cancelled, Est GFR (MDRD) Af Amer Cancelled, Est GFR (MDRD) Non-Af Cancelled, BUN/Creatinine Ratio Cancelled, Glucose Cancelled, Calcium Cancelled, Magnesium Cancelled, Total Bilirubin Cancelled, AST Cancelled, ALT Cancelled, Alkaline Phosphatase Cancelled, Total Protein Cancelled, Albumin Cancelled, Globulin Cancelled, Albumin/Globulin Ratio Cancelled, Triglycerides Cancelled, Cholesterol Cancelled, LDL Cholesterol Cancelled, VLDL Cholesterol Cancelled, HDL Cholesterol Cancelled, Procalcitonin Cancelled, TSH Cancelled 05/25/23 08:19: Sodium 141, Potassium 3.9, Chloride 116 H, Carbon Dioxide 23.0, Anion Gap 2 L, BUN 35 H, Creatinine 0.98, Estim Creat Clear Calc 70.95, Est GFR (MDRD) Af Amer 94, Est GFR (MDRD) Non-Af 78, BUN/Creatinine Ratio 35.9 H, Glucose 92, Calcium 12.0 H, Magnesium 2.3, Total Bilirubin 0.80, AST 42 H, ALT 24, Alkaline Phosphatase 132 H, Total Protein 5.6 L, Albumin 1.9 L, Globulin 3.7, Albumin/Globulin Ratio 0.5 L, Triglycerides 79, Cholesterol 107, LDL Cholesterol 68, VLDL Cholesterol 16, HDL Cholesterol 23 L, Procalcitonin 0.17 H, TSH 3.28 05/25/23 08:20: MRSA (PCR) Negative 05/25/23 09:05: Ionized Calcium 6.38 H Micro: Microbiology 05/24/23 15:15 Mucosa - Nose SARS-CoV-2, Influenza & RSV (PCR) - Final Imaging Radiology Impression Chest X-Ray 05/24/23 15:22 IMPRESSION: Blunting of the right costophrenic angle with bibasilar atelectasis and/or infiltrates as well as increased markings in the right upper lobe abutting the right minor fissure. Follow-up recommended. Electronically Signed: Gary Barreto MD at 15:35 EST , Brain CT 05/24/23 15:25 IMPRESSION: Chronic involutional changes of the brain. Electronically Signed: Gary Barreto MD at 15:43 EST , Brain MRI 05/24/23 17:54 IMPRESSION: Involutional changes of the brain, as described above. Electronically Signed: Bubba Mendoza MD at 21:02 EST , Head/Neck CTA 05/24/23 17:54 IMPRESSION: No significant major vessel vaso-occlusive disease in the head or neck. Right upper lobe consolidation. Electronically Signed: Michael Lion MD at 20:14 EST , Active Medications Active Medications Active Medications: Current Medications Generic Name Dose Route Start Last Admin Trade Name Freq PRN Reason Stop Dose Admin Acetaminophen 650 mg 05/24/23 17:57 Acetaminophen 325 Mg Tablet PO Q6H PRN PRN Pain 1-10 Or Fever >100.7 Albuterol Sulfate 2.5 mg 05/24/23 17:57 Albuterol 2.5 Mg/3 Ml Vial.Neb. INHALATION Q2H PRN PRN SOB/Wheezing Albuterol Sulfate 2.5 mg 05/24/23 20:45 05/25/23 07:27 Albuterol 2.5 Mg/3 Ml Vial.Neb. INHALATION 2.5 mg Q6HWA.RT VITA Administration Allopurinol 300 mg 05/25/23 10:00 05/25/23 09:50 Allopurinol 300 Mg Tablet PO 300 mg DAILY VITA Administration Budesonide 0.25 mg 05/24/23 20:45 Budesonide Aerosol 0.25 Mg/2 Ml Ampul.Neb INHALATION Q12H.RT VITA Diltiazem HCl 120 mg 05/25/23 10:00 05/25/23 09:50 Diltiazem Cd 120 Mg Capsule PO 120 mg DAILY VITA Administration Protocol Ferrous Sulfate 325 mg 05/25/23 08:00 05/25/23 09:49 Ferrous Sulfate 325 Mg Tablet PO 325 mg BIDCM VITA Administration Hydralazine HCl 5 mg 05/24/23 17:57 Hydralazine 20 Mg/Ml Vial IV Q30M PRN to maintain BP goals Sodium Chloride 250 mls @ 15 mls/hr 05/24/23 21:54 IV .[id number] PRN Additional IVPB Infusion Sodium Chloride 250 mls @ 15 mls/hr 05/24/23 21:54 IV .[id number] PRN Saline Flush Vancomycin IV-PHARMACY TO DOSE 500 mls @ 250 mls/hr 05/25/23 07:25 1 each/ Sodium Chloride IV PRN PRN Rx to Dose Protocol Piperacillin Sod/Tazobactam 50 mls @ 12.5 mls/hr 05/25/23 08:00 05/25/23 09:49 Sod 3.375 gm/ Sodium Chloride IV 12.5 mls/hr Q8 VITA Administration Vancomycin HCl 1,250 mg/ 275 mls @ 167 mls/hr 05/25/23 21:00 Sodium Chloride IV Q12H VITA Labetalol HCl 10 - 20 mg 05/24/23 17:57 Labetalol (Prefilled) 20 Mg/4 Ml IV Q10M PRN PRN to Maintain BP Goals Melatonin 3 mg 05/24/23 17:57 Melatonin 3 Mg Tablet PO QHS PRN PRN INSOMNIA Metoprolol Tartrate 25 mg 05/24/23 22:00 05/25/23 09:50 Metoprolol Tartrate 25 Mg Tablet PO 25 mg BID VITA Administration Protocol Ondansetron HCl 4 mg 05/24/23 17:57 Ondansetron 4 Mg/2 Ml Vial IV Q8H PRN PRN NAUSEA/VOMITING Pantoprazole Sodium 40 mg 05/25/23 10:00 05/25/23 09:49 Pantoprazole Sodium 40 Mg Tablet PO 40 mg DAILY VITA Administration Rifaximin 550 mg 05/24/23 22:00 05/25/23 09:50 Rifaximin 550 Mg Tablet PO 550 mg BID VITA Administration Senna/Docusate Sodium 2 tablet 05/24/23 17:57 Senna/Docusate Sodium 1 Tablet PO BID PRN PRN Constipation Sertraline HCl 50 mg 05/24/23 22:00 05/24/23 22:11 Sertraline 50 Mg Tablet PO Not Given QHS VITA Sodium Chloride 10 - 40 ml 05/24/23 21:54 05/24/23 20:55 0.9% Saline Lock 10 Ml Syringe IV 10 ml UD PRN Administration SALINE FLUSH Tolterodine Tartrate 4 mg 05/25/23 10:00 05/25/23 09:50 Tolterodine Tartrate 4 Mg Cap.Sa PO 4 mg DAILY VITA Administration Vancomycin Protocol 1 lab 05/26/23 18:30 Vancomycin Trough/Random Due 05/26/23 22:30 DAILY VITA
--- NOTE | 2023-05-25 13:33 | CASEMGMT ---
KIMMY spoke with patient's daughter Ingris per her request. KIMMY introduced self and role at [facility]. Ingris stated patient is at [facility] and she is worried they won't be able to take patient back. KIMMY explained that KIMMY will keep [facility] up to date on how patient is doing. Therapy notes will be sent to [facility] and they will notify us if they feel they cannot manage his care. If therapy recommends rehab for patient then it can be arranged for patient to go to another [facility] facility before he returns to [facility]. Ingris said she does not want him to go back to [facility] as she did not care for the doctor at [facility]. KIMMY told Ingris we will provide her with a list of facilities to choose from and KIMMY will check with facilities on availability. KIMMY told Ingris SW will keep her updated. Ingris thanked KIMMY for the help. Maria T Marquez TIEING MACHINE OPERATOR NOE
--- NOTE | 2023-05-25 15:06 | US_ITS ---
STUDY: ABDOMINAL ULTRASOUND -LIMITED 4 QUADRANT REASON FOR VISIT: Male, 83 years old Ascites evaluation TECHNIQUE: Ultrasound evaluation of the 4 quadrants was performed with real-time and static swan-scale imaging. TECHNICAL QUALITY: Adequate. COMPARISON: None. FINDINGS: Ascites: There is severe ascites in the 4 quadrants of the abdomen. US/Abdomen Limited IMPRESSION: Ascites. Electronically Signed: Ezekiel Campbell MD at 22:57 EST ,
[2023-05-25 16:24] LABS: Bacteria 0 SEEN /hpf (None Seen); Mucous, Urine 0 SEEN /hpf (<or=2+); Red Blood Cells-Urine 0 SEEN /hpf (0-5); Squamous Epithelial Cells - UA 0 SEEN /hpf (0-5); White Blood Cells 0 SEEN /hpf (0-5)
[2023-05-25 16:31] LABS: Color, Urine Yellow (Yellow); Glucose, Dipstick Normal (Normal); Ketone-Dipstick Negative (Negative); Leukocyte Esterase-Dipstick Negative /ul (Negative); Nitrite-Dipstick Negative (Negative); Occult Blood-Urine Negative /ul (Negative); Protein-Dipstick Negative (Negative); Specific Gravity, Urine 1.015 (1.002-1.030); Urine Bilirubin Dipstick Negative (Negative); Urine Clarity Clear (Clear); Urine Urobilinogen Normal (Normal); Urine pH 6.5 (5.0 - 8.0)
[2023-05-25] MEDS: Lactulose 20 GM/30 ML UDC PO ×2 (18:02→20:43)
[2023-05-25] MEDS: Sertraline 50 MG Tablet PO (20:43)
[2023-05-25] MEDS: 0.9% Saline Lock 10 ML Syringe IV (20:44)
[2023-05-26] VITALS (21 sets, daily range): BP systolic 69–104; BP diastolic 47–75; PULSE 61–126; RESP 16–22; TEMP 36.2–36.6; O2SAT 93–100; BMI 36.0; BMI 35.9
[2023-05-26] MEDS: Piperacil/Tazobactam 3.375 GM in 0.9% Normal Saline (50mL MB+) 50 ML IV ×3 (05:59→20:07)
--- NOTE | 2023-05-26 06:18 | PN.HOSP_ITS ---
Reason for Visit Reason for Visit: Diagnoses Anemia in other chronic diseases classified elsewhere (05/25/23) Obstructive sleep apnea (adult) (pediatric) (05/25/23) Encephalopathy, unspecified (05/25/23) Gastro-esophageal reflux disease without esophagitis (05/25/23) Unspecified cirrhosis of liver (05/25/23) Gout, unspecified (05/25/23) Other symptoms and signs involving the nervous system (05/25/23) Dependence on other enabling machines and devices (05/25/23) Subjective Subjective Patient overnight with episodes of urinary retention with Hernandez catheter eventually placed and initiated on Flomax therapy. Patient with EEG being performed today, awaiting results. Patient's status post paracentesis with significant fluid removed, 8200 cc. Discussed case and current presentation and care plan also with his daughter. Patient currently denying any complaints although he does feel mildly fatigued but feels more alert than day prior. Robyn ent denies fevers, chills, nausea, emesis, abdominal pain, chest pain or dyspnea. Objective Data Objective Data Vital Signs: Vital Signs Temp Pulse Resp BP Pulse Ox O2 Del Method O2 Flow Rate 97.4 F L 65 18 93/65 98 Nasal Cannula 2 05/26/23 02:48 05/26/23 02:48 05/26/23 02:48 05/26/23 02:48 05/26/23 02:48 05/26/23 02:52 05/26/23 02:52 Oxygen Flow Rate (L/min) 2 Oxygen Delivery Method Nasal Cannula Weight: 251 lb 5.231 oz Body Mass Index (BMI) 36.0 Intake & Output: Intake and Output for Last 24 Hours 05/24/23 05/25/23 05/26/23 23:59 23:59 23:59 Intake Total 500 / 500 2070 / 2070 50 / 50 Output Total 0 / 0 1325 / 1475 1000 / 1000 Balance 500 / 500 745 / 595 -950 / -950 Lab / Micro Data 05/26/23 05:45 05/26/23 05:45 Labs: Laboratory Results - last 24 hr 05/25/23 07:10: WBC 4.3 L, RBC 3.28 L, Hgb 10.9 L, Hct 34.8 L, MCV 106.1 H D, MCH 33.2 H, MCHC 31.3 L, RDW Std Deviation 65.6 H, RDW Coeff of Raina 16.9 H, Plt Count 50 L*, MPV 11.5, Immature Gran % (Auto) 0.500, Neut % (Auto) 83.5 H, Lymph % (Auto) 6.4 L, [place] % (Auto) 7.5, Eos % (Auto) 1.9, Baso % (Auto) 0.2, Absolute Neuts (auto) 3.6, Absolute Lymphs (auto) 0.27 L, Nucleated RBC % 0, Differential Comment COMMENT, Diff Path Review August foll, Platelet Estimate MOD DEC, Anisocytosis 1+, Sodium Cancelled, Potassium Cancelled, Chloride Cancelled, Carbon Dioxide Cancelled, Anion Gap Cancelled, BUN Cancelled, Creatinine Cancelled, Estim Creat Clear Calc Cancelled, Est GFR (MDRD) Af Amer Cancelled, Est GFR (MDRD) Non-Af Cancelled, BUN/Creatinine Ratio Cancelled, Glucose Cancelled, Calcium Cancelled, Magnesium Cancelled, Total Bilirubin Cancelled, AST Cancelled, ALT Cancelled, Alkaline Phosphatase Cancelled, Total Protein Cancelled, Albumin Cancelled, Globulin Cancelled, Albumin/Globulin Ratio Cancelled, Triglycerides Cancelled, Cholesterol Cancelled, LDL Cholesterol Cancelled, VLDL Cholesterol Cancelled, HDL Cholesterol Cancelled, Procalcitonin Cancelled, TSH Cancelled 05/25/23 08:19: Sodium 141, Potassium 3.9, Chloride 116 H, Carbon Dioxide 23.0, Anion Gap 2 L, BUN 35 H, Creatinine 0.98, Estim Creat Clear Calc 70.95, Est GFR (MDRD) Af Amer 94, Est GFR (MDRD) Non-Af 78, BUN/Creatinine Ratio 35.9 H, Glucose 92, Calcium 12.0 H, Magnesium 2.3, Total Bilirubin 0.80, AST 42 H, ALT 24, Alkaline Phosphatase 132 H, Total Protein 5.6 L, Albumin 1.9 L, Globulin 3.7, Albumin/Globulin Ratio 0.5 L, Triglycerides 79, Cholesterol 107, LDL Cholesterol 68, VLDL Cholesterol 16, HDL Cholesterol 23 L, Procalcitonin 0.17 H, TSH 3.28 05/25/23 08:20: MRSA (PCR) Negative 05/25/23 09:05: Ionized Calcium 6.38 H 05/25/23 16:11: Urine Color Yellow, Urine Clarity Clear, Urine pH 6.5, Ur Specific [place] 1.015, Urine Protein Negative, Urine Glucose (UA) Normal, Urine Ketones Negative, Urine Occult Blood Negative, Urine Nitrite Negative, Urine Bilirubin Negative, Urine Urobilinogen Normal, Ur Leukocyte Esterase Negative, Urine RBC 0 SEEN, Urine WBC 0 SEEN, Ur Squamous Epith Cells 0 SEEN, Urine Bacteria 0 SEEN, Urine Mucus 0 SEEN Micro: Microbiology 05/24/23 15:15 Mucosa - Nose SARS-CoV-2, Influenza & RSV (PCR) - Final Radiography Diagnostic Testing: Radiology Impression Echocardiogram 05/24/23 17:54 Interpretation Summary The left ventricular ejection fraction is 55 %. Moderately dilated right ventricle. Mild to moderate global right ventricular systolic dysfunction. There is severe biatrial dilatation. Mild tricuspid valve insufficiency. 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 Severe mitral annular calcification that extends into the LVOT as well. Bubble contrast study is negative for PFO/ASD. Technically difficult study with suboptimal images. Consider cardiac MRI for further evaluation if clinically indicated. Ordering Physician: Sue Roman Referring Physician: Ricky Bradley M.D. Performed By: Estrella Jackson RDCS Abdomen Ultrasound 05/25/23 15:06 IMPRESSION: Ascites. Electronically Signed: Ezekiel Campbell MD at 22:57 EST , Physical Exam Narrative Physical Examination: General: Awake, alert, oriented to self, place, recent events, remains cooperative, laying in the PCU bed, notes feeling decent, discussed plan for paracentesis, awaiting EEG, ongoing treatment of his PNA, hernandez for retention. Discussed that his daughter had been updated. Skin: Normal color, normal turgor, no icterus, no cyanosis except for occasional staged ecchymoses, stasis disease. HEENT: AT/NC, EOMI, PERRLA, MMM. Lungs: Diminished, diffusely, greater posterior, mildly decreased effort, no evidence of any distress, no rales, ronchi or wheezing. Heart: Regular rate and rhythm; no gallop, rub audible. Abdomen: Soft, obese, still distended appearance, NTTP, having paracentesis today, obese, unable to ascertain distention given patient habitus. Extremities: No cyanosis, no clubbing, bilateral lower extremity not markedly pitting ankle edema. Neurological: Patient awake, alert, oriented as noted, cognitive function intact; pupils equally reactive to light and accommodation, cranial nerves grossly normal, moving all 4 extremities except significant left-sided hemiplegia left lower extremity, strength he notes mildly improved since initial presentation, remains moderately globally decreased. Psychiatric: Affect appears more interactive, mildly fatigued, no acute evidence of depressive or anxiety feelings. Assessment & Plan Assessment/Plan (1) Encephalopathy acute: PLAN: Plan The patient is an 83 y/o M w/ PMHx: Chronic anemia/AOCD, CKD stage III unclear subtype, HTN, HLD, Hx CVA, Anxiety an Depression, Asthma, Valvular Heart Disease, PAF/Flutter, Nonobstructive CAD, DEMI on BIPAP, Non-alcoholic Liver Cirrhosis w/ Liver cancer w/ associated chronic thrombocytopenia/anemia/mild hyperammonemia, Obesity who presents to the [facility] ED on 05/24/23 with history of worsening fatigue, malaise, debility and weakness with chronic left lower extremity debilities following previous stroke but worse with increased lethargy prompting family to bring him into the ED for evaluation with initial concern for possible stroke. 1. Acute Encephalopathy/Metabolic/Infectious, Adult FTT, multifactorial as noted also #2, #3, increased debility/weakness above baseline w/ Possible RUL Pneumonia/RUL Consolidation with possible gram-negative versus gram-positive organism versus Possible Metastatic Disease: Admission labs included CBC with WBC 4.9, N 110.7, MCV 100.3, platelet 58 with lymphopenia, CMP with chloride 110, BUN/creatinine 40/1.19, glucose 119, calcium 12.5, hepatic profile with alk phos 156, ammonia 34, BNP 104.6, troponin 24, chest x-ray with blunting right costophrenic angle with bibasilar atelectasis with increased markings right upper lobe abutting the right minor fissure of unclear significance, possibly atelectasis versus infiltrate, CT brain with chronic involutional changes, CTA head and neck with no significant major vaso-occlusive disease in the head or neck, evidence of a right upper lobe consolidation, MRI of the brain with chronic involutional changes with no acute intracranial findings. Admitted to PCU, given MRI without acute CVA suspect process in RUL likely associated with encephalopathy and increased weakness, maintained on oxygen with wean as tolerated to room air, continue ATC budesonide, PRN albuterol, initiated given history of recent hospitalization within the 90-day jackelyn on IV Zosyn and Vancomycin however negative MRSA screen thus de-escalated off Vanc therapy. Negative urine antigens. Procalcitonin 0.17. Bld cx x 2 obtained in the ED. PT/OT/ST/CM consulted for discharge planning. Given history will need repeat dedicated CT following this treatment to assure not in fact metastatic disease component. 2. Increased left lower extremity weakness above baseline with encephalopathy, stroke ruled out, likely secondary to #1 as noted: Upon admission concern for initially recurrent stroke with baseline left-sided hemiplegia but worsened, CT brain with chronic involutional changes, CTA head and neck with no significant major vaso-occlusive disease in the head or neck, evidence of a right upper lobe consolidation, MRI of the brain with chronic involutional changes with no acute intracranial findings with stroke ruled out, allergy to statin with significant thrombocytopenia thus antiplatelet deferred and lieu suspicion for stroke upon admission, echocardiogram with EF 55%, moderately dilated RV, mild to moderate global RV systolic dysfunction, severe biatrial dilatation, mild TVI, bioprosthetic aortic valve with mean gradient across the valve 6.7 mmHg, bubble contrast study negative. Given no evidence of stroke following MRI completion hypertensive regimen restarted. [facility] teleneurology consulted and at this point they do believe that his presentation is likely infectious secondary to his new pneumonia however believe it could be related with his cirrhotic disease and possibly also hypercalcemia w/ recommendation of titrating bowel movements 2-3 daily w/ bowel regimen started; however, abdominal likely distended secondary to ascites confirmed on limited 05/25/23 US, 05/26/23 paracentesis performed with 8200 cc fluid removed and diagnostic evaluation studies requested including cytology. Given amount removed IV albumin ~6 g/L administered with 50 gm 25% albumin administered. Neurology also although lower suspicion recommended EEG which has also been performed 05/26/23, awaiting read. ST evaluations also with concerns thus patient with pending MBS evaluation concurrently. 3. Hypercalcemia: Likely contributing to his weakness and altered mental status most probably secondary to underlying malignancy, has been previously been higher, ICa elevated 6.38 (4.26-5.20 range), will obtain PTH, vitamin D 1,25-OH2 and vitamin D 25-OH, given noted limited US with notable ascites, planned paracentesis, but given concurrent hypercalcemia, will administer lasix 40 mg IV x 1 now, also based on corrected Ca++ level 13.2 will order per medronate 60 mg single dose now and reassess in a.m. for additional dose. From discussion with pharmacy there are limited doses of committee rate in house. 4. Nonalcoholic cirrhosis with underlying liver cancer with associated pancytopenia, chronic/chronic iron deficiency anemia: Patient following with Dr. Dahl, continued chronic oral iron supplementation, continued patient home metoprolol as BP allows, rifaximin. NH level 34; however, given constipation complaint noted to Neurology per patient will administer lactulose 20 mg BID regimen to titrate bowel movements, will continue to re-evaluate and alter as needed. 05/25/23 limited abdominal US with noted ascites in all quadrants, 05/26/23 paracentesis performed with 8200 cc fluid removed and diagnostic evaluation studies requested including cytology. Given amount removed IV albumin ~6 g/L administered with 50 gm 25% albumin administered. 5. Urinary retention with Hernandez catheter placement: 05/25/2023-05/26/2023 patient with significant urinary retention with straight cath attempts however eventually Hernandez catheter placement necessary, urinalysis obtained and unremarkable, Flomax started. Will continue and make reattempts to de-escalate catheter however if continued require catheter may necessitate outpatient follow-up with urology. 6. PAF: Patient not chronically anticoagulated secondary to his underlying liver disease process with thrombocytopenia, maintained on diltiazem, encourage continued outpatient follow-up with cardiology as previously arranged. 7. Valvular heart disease: Patient status post AV bioprosthetic valve, echo 11/06 with EF 60% with indeterminate diastolic function with severely dilated RV and global RV dysfunction, severe mitral annular calcification with RVSP 44 mmHg. 8. Depression and anxiety: Will continue patient home sertraline regimen. 9. GERD: We will continue patient on PPI. 10. Gout: We will continue patient home allopurinol regimen. 11. DEMI: BiPAP nightly. 12. DVT prophylaxis: SCDs. Holding administration of any chemoprophylaxis concept given significant thrombocytopenia. 13. CODE STATUS: DNR-CCA, no intubation. Charges/Coding Visit Charges Inpatient E&M: 98690 Subs Hosp L3
[2023-05-26 06:27] LABS: Absolute Lymphocyte Count 0.18 X10^3/uL (0.83-4.51); Absolute Neutrophil Count 5.1 X10^3/uL (2.0-7.7); Basophil# 0.01 X10^3/uL; Basophil% 0.2 % (0-1); Eosinophil# 0.12 X10^3/uL; Eosinophils% 2.1 % (0-5); Hematocrit 32.9 % (40-54); Hemoglobin 10.8 g/dL (13.0-16.5); Lymphocyte # 0.18 X10^3/ul (0.83-4.51); Lymphocyte % 3.2 % (19-41); Mean Corp Hgb Conc 32.8 g/dL (32-36); Mean Corpuscular Hgb 33.2 pg (27.0-32.0); Mean Corpuscular Volume 101.2 fL (80-94); Mean Platelet Vol. 11.3 fl (6.2-12.0); Monocyte# 0.23 X10^3/uL; Monocyte% 4.1 % (0-10); NRBC Flagged by Analyzer 0 % (0-5); Neutrophil # 5.05 X10^3/uL (2.7-7.7); POSITIVE COUNT YES; POSITIVE DIFFERENTIAL YES; Platelet Count 58 K/mm3 (150-450); RBC Distribution Width CV 16.8 % (11.6-14.6); RBC Distribution Width SD 62.3 fl (35.1-43.9); Red Blood Count 3.25 M/mm3 (4.6-6.2); White Blood Count 5.6 K/mm3 (4.4-11.0)
[2023-05-26 06:51] LABS: ALB/GLOB Ratio 0.7 RATIO (0.9-2.4); AST(SGOT) 34 U/L (15-37); Alanine Aminotransfer ALT/SGPT 29 U/L (16-61); Albumin, Serum 2.1 g/dL (3.2-5.0); Alkaline Phosphatase 187 U/L (45-117); Anion Gap 3 (5-15); BUN 33 mg/dL (7-18); BUN/Creat Ratio 30.8 RATIO (10-20); Calcium,Total 11.6 mg/dL (8.5-10.1); Chloride 114 mmol/L (98-107); Creatinine, Serum 1.07 mg/dL (0.70-1.30); EST Glomerular Filtration Rate 70 mL/min (>60); Est Glom Filt Rate - Afr Amer 85 mL/min (>60); Estimated Creatinine Clearance 64.98 ml/min; Globulin 3.1 g/dL (2.2-4.2); Glucose 76 mg/dL (74-106); Potassium 3.7 mmol/L (3.5-5.1); Protein, Total 5.2 g/dL (6.4-8.2); Sodium Level 144 mmol/L (136-145)
[2023-05-26] MEDS: Albuterol 2.5 MG/3 ML VIAL.NEB. INHALATION (07:10)
[2023-05-26 07:19] LABS: Pathologist Review Reviewed
[2023-05-26 08:35] LABS: International Normalized Ratio 1.2; Prothrombin Time (Protime)PT. 15.2 SECONDS (11.7-14.9)
[2023-05-26 08:36] LABS: Partial Thromboplast Time 33.1 Seconds (24.1-36.2)
--- NOTE | 2023-05-26 08:56 | CASEMGMT ---
Discharge Planning Updates faxed to [facility]. Eliza Bland, Discharge Planning Asst.
[2023-05-26 09:37] LABS: PTHIN 109.1 pg/mL (18.4-80.1)
[2023-05-26 09:44] LABS: Vitamin D,25 Hydroxy 51.8 ng/mL
[2023-05-26] MEDS: 0.9% Normal Saline (250mL Bag) 250 ML 15 ML IV (10:16)
[2023-05-26] MEDS: Allopurinol 300 MG Tablet PO (10:17)
[2023-05-26] MEDS: Ferrous Sulfate 325 MG Tablet PO (10:17)
[2023-05-26] MEDS: Pantoprazole Sodium 40 MG Tablet PO (10:17)
[2023-05-26] MEDS: Tolterodine Tartrate 4 MG CAP.SA PO (10:17)
[2023-05-26] MEDS: Lactulose 20 GM/30 ML UDC PO ×2 (10:18→20:06)
[2023-05-26] MEDS: rifAXIMin 550 MG Tablet PO ×2 (10:18→20:07)
--- NOTE | 2023-05-26 11:03 | CASEMGMT ---
KIMMY called patient's daughter Ingris after reviewing PT/OT's evaluations. KIMMY told Ingris that patient did not do well with therapy. Notes were sent to [facility], but KIMMY has not heard back from them yet. KIMMY asked Ingris if she would like KIMMY to provide her with a list of senior living facilities. Ingris said she would like to have patient go to [facility]. KIMMY let Ingris know SW will make the referral. KIMMY also let Ingris know if patient improves and does not need SNF this can always be canceled. Ingris thanked KIMMY. KIMMY did make a referral to [facility]. Maria T Marquez [employer] NOE
[2023-05-26] MEDS: 0.9% Saline Lock 10 ML Syringe IV ×2 (11:16→18:09)
[2023-05-26] MEDS: Lidocaine 2% (20 ml mdv) 20 ML Vial INFILT (12:05)
--- NOTE | 2023-05-26 12:09 | FLU_PTH ---
PATHOLOGY RESULTS PATIENT: FRANCISCO MACK LOC: [facility] U#:[id number] AGE/SX: 83/M ROOM: [facility] RE05/25/[address]: Dr. Juan Mendez DO : 1940 BED: 1 DIS: 06/01/2023 SPEC #: [id number] RECD: 05/26/23 12:25 STATUS: SOUKristopher REQ #: [id number] IAN: 05/26/23 12:[address]: Sue Roman DEPT: CYTOLOGY RECD BY: Elsy Hernandez ENTERED: 05/26/23 13:10 SP TYPE: Fluid OTHR DR: MD Dr. Milana Coats MD Dr. Allison Jordan, DO Dr. Autumn L White, MD Dr. Alicia Zha, MD Dr. Drew Abramovich, MD Dr. Deepak Gulati, MD Dr. Elnora Spradling, MD Dr. Hera Kamdar, MD Dr. Jan Bittar, MD Dr. James Burke, MD Dr. Lapman Lun, MD Dr. Mir Ali, MD Dr. Matthew Gusler, MD Dr. Maryam Mian, MD Dr. Mohamed Ridha, MD Dr. Mhd Ezzat Zaghlouleh, MD Dr. Paul Masci, DO Dr. Paige Pierce, MD Dr. Peter Robinson, MD Dr. Sushil Lakhani, MD Dr. Vivien Lee, MD Dr. Victor Velasquez, MD Tissues: PARACENTESIS FLUID Procedures: Special Stain Group II Surgery Specimen Level IV Cytospin Fluid Comments: @ Ordering doctor for SSII edited from to @ by RENATO at 05/26/23 [id number] @ Ordering doctor for SUIV edited from to DR.PPIERC Jeffery GROSS at 05/26/23 1359 @ Ordering doctor for CYSPIN edited from to DR.PPIERC Jeffery GROSS at 05/26/23 1769 @ Submitting doctor edited from to DR.PPIERC Jeffery GROSS at 05/26/23 1359 HEADER OPERATION: Ultrasound-guided paracentesis PRE-OP DIAGNOSIS: Ascites TISSUE SUBMITTED: Paracentesis fluid for cytology DIAGNOSIS CYTOLOGY Paracentesis fluid for cytology (cytospin and cell block): Negative for malignant cells. See comment. SJ:tal 05/29/2023 COMMENT Clinical correlation and appropriate follow up are necessary. CYTOLOGY STUDY Slides are reviewed. CYTOLOGY GROSS Received is 80 ml of yellow fluid labeled with the patient's name and and designated per the requisition as paracentesis. Submitted for cytology preparation including cell block. / tal 05/26/2023 TC:5 CPT: 38468, 91438
--- NOTE | 2023-05-26 12:34 | SP.MBSS_ITS ---
Modified Barium Swallow Patient Information Study Date: 05/26/23 Study Time: 14:50 Direct Billable Minutes: 120 Total Minutes procedure & reportin Diagnosis: Acute encephalopathy G93.40, GERD K21.9 Referring Physician: Joan Menjivar Reason for Referral: Objectively assess swallow function, assess risk for aspiration, and determine recommendations for least restrictive diet textures and compensatory strategies to improve safety of swallow. Medical History: PMH: Anemia, Aortic valve disorder, Asthma, Chronic acquired lymphedema, CKD (chronic kidney disease), Depression, Essential (primary) hypertension, GERD (gastroesophageal reflux disease), History of cerebrovascular accident, Hyperlipemia, Liver cancer, Obesity, Multiple lung nodules, New onset atrial flutter, Non-alcoholic cirrhosis, Nonobstructive atherosclerosis of coronary artery, Nonrheumatic aortic (valve) stenosis, OAB (overactive bladder), DEMI treated with BiPAP, Osteoarthritis, Paroxysmal A-fib, PCK (polycystic kidney disease), Peripheral neuropathy, Right bundle branch block (RBBB), Thrombocytopenia. The patient presented to [facility] ED on 05/24/2023 from his [facility] with altered mental status. Patient's daughter reported that he patient was experiencing slurred speech, difficulty speaking, and was not using his left leg. Initially, there w as concern for acute CVA, but work up was negative. He has been admitted for management of acute encephalopathy. Of note, the patient was admitted to [facility] in March with pneumonia and has had a residual cough since then. ST consult was placed for difficulty swallowing. He was made NPO by RN due to difficulty swallowing medications. BSE was completed 05/25/23 recommending Easy to Chew textures / Thin liquids with plan for MBSS to further assess concern for aspiration, especially when consuming thin liquids. Current Diet Ordered: Easy to Chew textures / Thin liquids Dentition: Natural Teeth and Missing Teeth Mental Status: Impaired (Difficulty following commands throughout the evaluation, current encephalopathy) Respiratory Status: Oxygenating on 2L/M nasal cannula Penetration-Aspiration Scale Penetration-Aspiration Scale: OBJECTIVE ASSESSMENT OF SWALLOW FUNCTION (QUANTITATIVE ? PER TRIAL): PENETRATION / ASPIRATION SCALE (RASHEED): 1 = does not enter airway 2 = enters airway/above vocal folds/ejected 3 = enters airway/above vocal folds/not ejected 4 = enters airway/contacts vocal folds/ejected 5 = enters airway/contacts vocal folds/not ejected 6 = enters airway/below vocal folds/ejected 7 = enters airway/below vocal folds/not ejected despite effort 8 = enters airway/below vocal folds/no effort VIDEOFLOROSCOPIC SCALE SCORE (RASHEED): Grade I = aspiration of material that has penetrated into the laryngeal vestibule, intact cough reflex Grade II = aspiration < 10 % of the bolus, intact cough reflex Grade III = aspiration of < 10 % of the bolus, reduced cough reflex or aspiration of > 10 % of the bolus, intact cough reflex Grade IV = aspiration of > 10 % of the bolus, reduced cough reflex Penetration-Aspiration Scale Score Thin Liquid via teaspoon: Result: 1= does not enter airway Thin Liquid via teaspoon Trial 2: Result: 7= enters airways/below vocal folds/not ejected despite effort Thin Liquid via small single sip: cup: Result: 5= enters airways/contacts vocal folds/not ejected Mcgraw Thick Liquid via small single sip: cup: Result: 2= enter airway/above vocal folds/ejected Comment: Cued cough and re-swallow with max cues to clear contrast from the vocal folds from thin by cup trial. Mcgraw Thick Liquid via small single sip: cup Trial 2: Result: 1= does not enter airway Pudding via teaspoon: Result: 1= does not enter airway Comment: Esophageal screen - Retention with pudding in the lower esophagus with min retrograde flow. NTL wash via tsp did not clear retention in the lower esophagus. 1/4 Cookie: Result: 1= does not enter airway Comment: [employer] initially provided 1/2 cookie with no initiation of mastication. Thin Liquid via single sip: straw: Result: 7= enters airways/below vocal folds/not ejected despite effort Comment: Delayed swallow Mcgraw Thick Liquid via small single sip: cup Trial 3: Result: 1= does not enter airway Comment: Max cues to double swallow; however, the patient was unable to complete double swallow. Oral Phase Labial Seal: Escape beyond mid-chin Tongue Control During Bolus Hold: Posterior escape of greater than half of bolus Bolus Preparation/Mastication: Disorganized chewing/mashing with solid pieces of bolus unchewed Bolus Transport/Lingual Motion: Slowed tongue motion Oral Residue: Residue collection on oral structures Pharyngeal Phase Initiation of Pharyngeal Swallow: Bolus head in pyriforms (thin by tsp spilled to his VF prior to swallow onset) Soft Palate Elevation: No bolus between soft palate and pharyngeal wall Laryngeal Elevation: Partial superior movement thyroid cart/partial apprx aryt- epig petiole Anterior Hyoid Excursion: Partial anterior movement Epiglottic Movement: Complete inversion Laryngeal Vestibule Closure at Height of Swallow: Incomplete; narrow column of air/contrast in laryngeal vestibule Pharyngeal Stripping Wave: Present - diminished Pharyngoesophageal Segment Opening: Complete distension and complete duration; no obstruction of flow Tongue Base Retraction: Wide column of contrast between tongue base & post. pharyngeal wall Pharyngeal Residue: Collection of residue within or on pharyngeal structures Esophageal Phase Esophageal Clearance: Esophageal retention w/ retrograde flow below pharyngoesophageal seg. Diagnosis/Impression Diagnosis: Moderate oropharyngeal dysphagia R13.12 Impression: The oral phase is primarily marked by... -Decreased bolus control with >1/2 of the bolus spilling posteriorly to the pyriforms prior to swallow onset observed with liquids especially. -Slowed tongue motion for A-P transport. -Mild oral residue after the swallow with large sips, which mostly cleared with independent initiation of a second swallow as needed. -Prolonged, disorganized mastication of cookie trial. The pharyngeal phase is primarily marked by... -Decreased airway closure during the swallow due to decreased anterior hyoid excursion and decreased laryngeal elevation. -Mildly-moderately decreased tongue base retraction and mildly decreased pharyngeal stripping wave with resulting in mild-moderate pharyngeal residues after the swallow. -Aspiration during the swallow of thin liquids via tsp and straw. Recommendations Diet: Mechanical Soft Textures (Soft and bite size textures IDDSI Level 6) and Mcgraw-thick Liquids Compensatory Strategies: Small Bites, Small Sips, Slow Rate, Alternate bites/solids and sips/liquids, Sitting upright and Remain sitting upright for 30 minutes after PO intake Supervision: 1:1 Close Supervision (Feeding Assistance) Recommend Repeat Modified Barium Swallow: TBD Need for Skilled Speech Therapy Services: Yes Comment: -Train the patient in use of strategies to decrease risk for aspiration and reflux aspiration. -Ongoing assessment of diet tolerance of recommended textures. Patient is ok for trials of regular and thin textures at bedside with [employer] if deemed clinically appropriate to consider diet advancement. -Once able to follow commands, consider training the patient in oropharyngeal exercise program. Recommended Referrals: GI Consult (No immediate GI consult recommended; however, retention of barium in lower esophagus. If concern for increased s/s of reflux or regurgitation, please consider inpatient GI consult.) Education Completed: 1. Described result of evaluation. and 4. Family/caregivers understand evaluation & agree w/ goals & tx plan. Comment: [employer] called the patient's daughter and Ingris BAUTISTA, and educated her in the results and recommendations of the MBSS. Patient's daughter agreeable to recommendations. Additionally, [employer] educated RN, Radha, in results and recommendations of the study and provided handouts for the recommended diet and strategies to be posted in the patient's room. Status Active ST Patient: Active Contact Information [facility] Speech Therapy:: Charity Ahmadi M.A. [facility]? Speech-Language Pathologist?? [id number]?? [place] [address]?? [email or web address]?? [phone]???
[2023-05-26 12:40] LABS: Body Fluid Mononuclear WBC % 54.5 %; Body Fluid Polynuclear WBC # 0.025 10^3/uL; Body Fluid Polynuclear WBC % 45.5 %; Body Fluid Total Cells Counted 0.061 10^3/ul; White Blood Count/Body Fluid 0.055 10^3/uL
[2023-05-26 12:50] LABS: Auto B Fluid Analyzer BKGD Ct COUNTS W/IN LIMITS (W/IN LIMITS); Source- Body Fluid OTHER
[2023-05-26 12:51] LABS: Appearance/Body Fluid CLEAR; Color/Body Fluid YELLOW; Red Cell Count/Body Fluid 585 /mm3
--- NOTE | 2023-05-26 13:01 | PCM.OP.PRO ---
Procedure Report Date of Procedure: 05/26/23 Assessment & Plan Assessment/Plan (1) Cirrhosis: QUALIFIERS: Ascites presence: with ascites Hepatic cirrhosis type: unspecified hepatic cirrhosis Qualified Code(s): K74.60 - Unspecified cirrhosis of liver; R18.8 - Other ascites PLAN: PROCEDURE: Ultrasound guided paracentesis ORDERING PROVIDER: Dr. Menjivar INDICATION: Male, 83 years old. Abdominal ascites. PROVIDER: SINDY Bauer TECHNIQUE: The risks, benefits, and alternatives to the procedure were explained to the patient and patient's daughter via telephone. The specific risks of bleeding, infection, and damage to bowel were detailed and accepted. Telephone consent was obtained from the daughter. The abdomen was ultrasonographically surveyed. An appropriate pocket of fluid was identified in the right upper quadrant. The skin was prepped with chlorhexidine and sterile field established. 2% lidocaine was used for local anesthetic. Using ultrasound guidance, the peritoneal cavity was accessed with a 5-Surinamese paracentesis needle/catheter system. The trocar was removed. A total of 8200 ml of clear yellow colored fluid was removed from the peritoneal cavity. 100 mL of this fluid was sent to the laboratory for analysis. Despite fluid remaining on ultrasound, the catheter was withdrawn at 8200 mL because of the patient's soft blood pressure. A sterile dressing was applied. The procedure was well tolerated. IMPRESSION: Successful ultrasound-guided paracentesis with right upper quadrant access site. 8200 mL was drained; however, a small amount of ascites did remain. Procedures Radiology Radiology US Procedures: [id number] Paracentesis
[2023-05-26 13:41] LABS: Lymphocytes 14 %; Macrophages 47 %; Monocytes 1 %; Neutrophil (Segs) 38 %
[2023-05-26 13:45] LABS: Glucose, Body Fluid 91 mg/dL (40-70); LDH,Body Fluid 39 Units/L (Not Establ.); Protein, Body Fluid 1.8 g/dL (Not Establ.)
[2023-05-26 13:46] LABS: Body Fluid QC Type(s) BF1Q,BF2Q
[2023-05-26] MEDS: Albumin Human 25% (100 mL) 25 GM/100 ML BAG IV ×2 (13:54→15:50)
--- NOTE | 2023-05-26 15:02 | CASEMGMT ---
TCU has accepted patient. KIMMY called patient's daughter Ingris and notified her TCU can take patient and per physician patient may be ready on Monday. Ingris thanked KIMMY for the update. KIMMY called [facility] as patient was there for over 20 days recently. Per [place] patient's secondary insurance did pay the co-pay. 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
[2023-05-26] MEDS: dilTIAZem CD 120 MG Capsule PO (16:05)
[2023-05-26] MEDS: Pamidronate Disodium 60 MG in 0.9% Normal Saline (500mL Bag) 500 ML 250 MG IV (18:09)
[2023-05-26] MEDS: Metoprolol Tartrate 25 MG Tablet PO (18:45)
[2023-05-26] MEDS: Sertraline 50 MG Tablet PO (20:06)
--- NOTE | 2023-05-26 20:06 | EEG_ITS ---
EEG Results Procedure Details EEG Procedure Details: EEG Report Patient: Satya Medellin Date of : 1940 Sex: Male Age: 83 years old Inpatient routine EEG report: Study start time: 05/26/2023 02:39 PM End Time: 05/26/2023 03:00 PM History: 83 year old male with cirrhosis presented with waxing and waning mental status. Indication: rule out seizure Technical Description: This is a 21-channel digital EEG recording with time- locked video and single-channel electrocardiogram. Electrodes are placed according to the 10 to 20 International System. Additional T1 and T2 electrodes were placed. The patient was monitored continuously by EEG technicians by video and EEG recording was reviewed intermittently with annotations to the EEG record made every two hours. Portions of this record are reviewed using bandpass filters of 1 to 70 Hz and sensitivity of 7mV/mm. EEG DESCRIPTION Background: This recording was obtained during awake and drowsy state. In the maximally alert state, a posterior dominant rhythm was absent. During drowsiness, there was attenuation of the waking background. Stage II sleep architecture was not captured. Background was comprised of diffuse polymorphic delta slow activity Activation Procedures: Photic stimulation did not induced normal physiological response. Hyperventilation was not performed. Sporadic Epileptiform Discharges: none Focal slow activity: none Rhythmic or Periodic activity: none Seizures: none Patient Events: none EEG DIAGNOSIS Diffuse slow activity, moderate in degree CLINICAL INTERPRETATION This routine EEG is indicative of moderate degree of encephalopathy of nonspecific etiology. No epileptiform activity or seizures were noted during this period of recording. EEG read by: Colleen Mancilla MD [employer] LILY Friedman M.D. Neurology
[2023-05-27] VITALS (8 sets, daily range): BP systolic 95–112; BP diastolic 62–78; PULSE 54–118; RESP 16–20; TEMP 36.6–36.8; O2SAT 96–99; BMI 32.2
[2023-05-27] MEDS: Piperacil/Tazobactam 3.375 GM in 0.9% Normal Saline (50mL MB+) 50 ML IV ×3 (04:33→21:09)
[2023-05-27 04:44] LABS: Absolute Lymphocyte Count 0.18 X10^3/uL (0.83-4.51); Absolute Neutrophil Count 4.1 X10^3/uL (2.0-7.7); Basophil# 0.03 X10^3/uL; Basophil% 0.6 % (0-1); Eosinophil# 0.09 X10^3/uL; Eosinophils% 1.9 % (0-5); Lymphocyte # 0.18 X10^3/ul (0.83-4.51); Lymphocyte % 3.9 % (19-41); Mean Corp Hgb Conc 32.3 g/dL (32-36); Mean Corpuscular Hgb 32.7 pg (27.0-32.0); Mean Corpuscular Volume 101.3 fL (80-94); Mean Platelet Vol. 11.2 fl (6.2-12.0); Monocyte# 0.22 X10^3/uL; Monocyte% 4.7 % (0-10); NRBC Flagged by Analyzer 0 % (0-5); Neutrophil # 4.14 X10^3/uL (2.7-7.7); Neutrophil % 88.7 % (47-70); POSITIVE COUNT YES; POSITIVE DIFFERENTIAL YES; Platelet Count 51 K/mm3 (150-450); RBC Distribution Width CV 16.8 % (11.6-14.6); Red Blood Count 3.06 M/mm3 (4.6-6.2); White Blood Count 4.7 K/mm3 (4.4-11.0)
[2023-05-27 05:12] LABS: ALB/GLOB Ratio 0.9 RATIO (0.9-2.4); AST(SGOT) 37 U/L (15-37); Alanine Aminotransfer ALT/SGPT 28 U/L (16-61); Albumin, Serum 2.5 g/dL (3.2-5.0); Alkaline Phosphatase 208 U/L (45-117); Anion Gap 5 (5-15); BUN 28 mg/dL (7-18); BUN/Creat Ratio 26.7 RATIO (10-20); Calcium,Total 11.8 mg/dL (8.5-10.1); Chloride 115 mmol/L (98-107); Creatinine, Serum 1.05 mg/dL (0.70-1.30); EST Glomerular Filtration Rate 72 mL/min (>60); Est Glom Filt Rate - Afr Amer 87 mL/min (>60); Estimated Creatinine Clearance 66.07 ml/min; Globulin 2.7 g/dL (2.2-4.2); Glucose 97 mg/dL (74-106); Potassium 3.4 mmol/L (3.5-5.1); Protein, Total 5.2 g/dL (6.4-8.2); Sodium Level 146 mmol/L (136-145)
--- NOTE | 2023-05-27 06:29 | PN.HOSP_ITS ---
Reason for Visit Reason for Visit: Diagnoses Anemia in other chronic diseases classified elsewhere (05/25/23) Obstructive sleep apnea (adult) (pediatric) (05/25/23) Encephalopathy, unspecified (05/25/23) Gastro-esophageal reflux disease without esophagitis (05/25/23) Unspecified cirrhosis of liver (05/25/23) Gout, unspecified (05/25/23) Other ascites (05/25/23) Other symptoms and signs involving the nervous system (05/25/23) Dependence on other enabling machines and devices (05/25/23) Subjective Subjective Patient with significant issues with nausea and vomiting overnight per discussion with staff and also poor toleration of pamidronate with significant tachycardia and generally not feeling well during it with improvement following completion of the regimen but then again onset of bouts of nausea and emesis. Patient did have 1 loose stool. Discussed patient current status with him and his daughter and decision as noted to follow-up intractable nausea and emesis with KUB with no severe findings and CT abdomen pelvis with evidence of gastritis with ongoing treatments as noted. Patient denies fevers, chills, abdominal pain despite his bouts of nausea/emesis, no chest pain or dyspnea. Objective Data Objective Data Vital Signs: Vital Signs Temp Pulse Resp BP Pulse Ox O2 Del Method O2 Flow Rate 97.8 F 88 16 95/62 98 Nasal Cannula 2 05/27/23 03:59 05/27/23 03:59 05/27/23 03:59 05/27/23 03:59 05/27/23 03:59 05/27/23 03:59 05/27/23 03:59 FiO2 2 05/26/23 12:41 Oxygen Flow Rate (L/min) 2 Oxygen Delivery Method Nasal Cannula Weight: 250 lb 3.594 oz Body Mass Index (BMI) 35.9 Intake & Output: Intake and Output for Last 24 Hours 05/25/23 05/26/23 05/27/23 23:59 23:59 23:59 Intake Total 2070 / 2070 1071.9167 / 1171.9167 150 / 150 Output Total 1325 / 1475 9800 / 00338 950 / 950 Balance 745 / 595 -8728.0833 / -8978.0833 -800 / -800 Lab / Micro Data 05/27/23 04:16 05/27/23 04:16 Labs: Laboratory Results - last 24 hr 05/25/23 07:10: Diff Path Review Reviewed 05/26/23 05:45: WBC 5.6, RBC 3.25 L, Hgb 10.8 L, Hct 32.9 L, MCV 101.2 H, MCH 33.2 H, MCHC 32.8, RDW Std Deviation 62.3 H, RDW Coeff of Raina 16.8 H, Plt Count 58 L, MPV 11.3, Immature Gran % (Auto) 0.400, Neut % (Auto) 90.0 H, Lymph % (Auto) 3.2 L, Bowie % (Auto) 4.1, Eos % (Auto) 2.1, Baso % (Auto) 0.2, Absolute Neuts (auto) 5.1, Absolute Lymphs (auto) 0.18 L, Nucleated RBC % 0, Sodium 144, Potassium 3.7, Chloride 114 H, Carbon Dioxide 27.0, Anion Gap 3 L, BUN 33 H, Creatinine 1.07, Estim Creat Clear Calc 64.98, Est GFR (MDRD) Af Amer 85, Est GFR (MDRD) Non-Af 70, BUN/Creatinine Ratio 30.8 H, Glucose 76, Calcium 11.6 H, Total Bilirubin 0.80, AST 34, ALT 29, Alkaline Phosphatase 187 H, Total Protein 5.2 L, Albumin 2.1 L, Globulin 3.1, Albumin/Globulin Ratio 0.7 L, Vitamin D 25- Hydroxy 51.8, PTH Intact 109.1 H 05/26/23 08:15: PT 15.2 H, INR 1.2, APTT 33.1 05/26/23 12:07: Fluid Source OTHER, Fluid Color YELLOW, Fluid Appearance CLEAR, Fluid WBC 0.055, Fluid RBC 585, Fluid Tot Cell Count 0.061, Fld Polynuclear WBCs # 0.025, Fld Polynuclear WBCs % 45.5, Fluid Mononuclear WBCs 0.030, Fld Mononuclear WBCs % 54.5, Fluid Neutrophils 38, Fluid Lymphocytes 14, Fluid Monocytes 1, Fluid Macrophages 47, Fl Pathologist Comment May follow, Fluid Glucose 91 H, Fluid Total Protein 1.8, Fluid LDH 39, Fluid Comment 2 SEE COMMENT 05/27/23 04:16: WBC 4.7, RBC 3.06 L, Hgb 10.0 L, Hct 31.0 L, MCV 101.3 H, MCH 32.7 H, MCHC 32.3, RDW Std Deviation 61.0 H, RDW Coeff of Raina 16.8 H, Plt Count 51 L, MPV 11.2, Immature Gran % (Auto) 0.200, Neut % (Auto) 88.7 H, Lymph % (Auto) 3.9 L, Bowie % (Auto) 4.7, Eos % (Auto) 1.9, Baso % (Auto) 0.6, Absolute Neuts (auto) 4.1, Absolute Lymphs (auto) 0.18 L, Nucleated RBC % 0, Sodium 146 H , Potassium 3.4 L, Chloride 115 H, Carbon Dioxide 26.0, Anion Gap 5, BUN 28 H, Creatinine 1.05, Estim Creat Clear Calc 66.07, Est GFR (MDRD) Af Amer 87, Est GFR (MDRD) Non-Af 72, BUN/Creatinine Ratio 26.7 H, Glucose 97, Calcium 11.8 H, Total Bilirubin 1.10 H, AST 37, ALT 28, Alkaline Phosphatase 208 H, Total Protein 5.2 L, Albumin 2.5 L, Globulin 2.7, Albumin/Globulin Ratio 0.9 Micro: Microbiology 05/25/23 16:11 Urine Catheter - Catheter Legionella Antigen - Final 05/25/23 16:11 Urine Catheter - Catheter Streptococcus pneumoniae Antigen (M - Final 05/24/23 15:15 Mucosa - Nose SARS-CoV-2, Influenza & RSV (PCR) - Final Physical Exam Narrative Physical Examination: General: Awake, alert, oriented to self, place, recent events, remains cooperative, fatigued, discussed his recent episodes of nausea and emesis and plan for further evaluation. Skin: Normal color, normal turgor, no icterus, no cyanosis except for occasional staged ecchymoses, stasis disease. HEENT: AT/NC, EOMI, PERRLA, dry MM. Lungs: Diminished, diffusely, greater posterior, mildly decreased effort, no evidence of any distress, no rales, ronchi or wheezing. Heart: Regular rate and rhythm; no gallop, rub audible. Abdomen: Soft, obese, status post paracentesis, nondistended appearing, unable to elicit any discomfort with palpation, mildly hyperactive BS. Extremities: No cyanosis, no clubbing, bilateral lower extremity not markedly pitting ankle edema. Neurological: Patient awake, alert, oriented as noted, cognitive function intact; pupils equally reactive to light and accommodation, cranial nerves grossly normal, moving all 4 extremities except significant left-sided hemiplegia left lower extremity, strength worsened, moderately to severely globally decreased. Psychiatric: Affect appears fatigued, no acute evidence of depressive or anxiety feelings. Assessment & Plan Assessment/Plan (1) Encephalopathy acute: PLAN: Plan The patient is an 83 y/o M w/ PMHx: Chronic anemia/AOCD, CKD stage III unclear subtype, HTN, HLD, Hx CVA, Anxiety an Depression, Asthma, Valvular Heart D isease, PAF/Flutter, Nonobstructive CAD, DEMI on BIPAP, Non-alcoholic Liver Cirrhosis w/ Liver cancer w/ associated chronic thrombocytopenia/anemia/mild hyperammonemia, Obesity who presents to the [facility] ED on 05/24/23 with history of worsening fatigue, malaise, debility and weakness with chronic left lower extremity debilities following previous stroke but worse with increased lethargy prompting family to bring him into the ED for evaluation with initial concern for possible stroke. 1. Acute Encephalopathy/Metabolic/Infectious, Adult FTT, multifactorial as noted also #2, #3, increased debility/weakness above baseline w/ Possible RUL Pneumonia/RUL Consolidation with possible gram-negative versus gram-positive organism versus Possible Metastatic Disease: Admission labs included CBC with WBC 4.9, N 110.7, MCV 100.3, platelet 58 with lymphopenia, CMP with chloride 110, BUN/creatinine 40/1.19, glucose 119, calcium 12.5, hepatic profile with alk phos 156, ammonia 34, BNP 104.6, troponin 24, chest x-ray with blunting right costophrenic angle with bibasilar atelectasis with increased markings right upper lobe abutting the right minor fissure of unclear significance, possibly atelectasis versus infiltrate, CT brain with chronic involutional changes, CTA head and neck with no significant major vaso-occlusive disease in the head or neck, evidence of a right upper lobe consolidation, MRI of the brain with chronic involutional changes with no acute intracranial findings. Admitted to PCU, given MRI without acute CVA suspect process in RUL likely associated with encephalopathy and increased weakness, maintained on oxygen with wean as tolerated to room air, continue ATC budesonide, PRN albuterol, initiated given history of recent hospitalization within the 90-day jackelyn on IV Zosyn and Vanc omycin however negative MRSA screen thus de-escalated off Vanc therapy. Negative urine antigens. Procalcitonin 0.17. Bld cx x 2 obtained in the ED. PT/OT/ST/CM consulted for discharge planning. Given history will need to consider repeat dedicated CT following this treatment to assure not in fact metastatic disease component. 2. Increased left lower extremity weakness above baseline with encephalopathy, stroke ruled out, likely secondary to #1 as noted: Upon admission concern for initially recurrent stroke with baseline left-sided hemiplegia but worsened, CT brain with chronic involutional changes, CTA head and neck with no significant major vaso-occlusive disease in the head or neck, evidence of a right upper lobe consolidation, MRI of the brain with chronic involutional changes with no acute intracranial findings with stroke ruled out, allergy to statin with significant thrombocytopenia thus antiplatelet deferred and lieu suspicion for stroke upon admission, echocardiogram with EF 55%, moderately dilated RV, mild to moderate global RV systolic dysfunction, severe biatrial dilatation, mild TVI, bioprosthetic aortic valve with mean gradient across the valve 6.7 mmHg, bubble contrast study negative. Given no evidence of stroke following MRI completion hypertensive regimen restarted. [facility] teleneurology consulted and at this point they do believe that his presentation is likely infectious secondary to his new pneumonia however believe it could be related with his cirrhotic disease and possibly also hypercalcemia w/ recommendation of titrating bowel movements 2-3 daily w/ bowel regimen started; however, abdominal likely distended secondary to ascites confirmed on limited 05/25/23 US, 05/26/23 paracentesis performed with 8200 cc fluid removed and diagnostic evaluation studies requested including cytology. Given amount removed IV albumin ~6 g/L administered with 50 gm 25% albumin administered. Neurology also although lower suspicion recommended EEG which has also been performed 05/26/23 w/ diffuse slow activity, moderate in degree. ST evaluation for moderate oropharyngeal dysphagia w/ Mechanical Soft Textures (Soft and bite size textures IDDSI Level 6) and [place]-thick Liquids w/ Small Bites, Small Sips, Slow Rate, Alternate bites/solids and sips/liquids, Sitting upright and Remain sitting upright for 30 minutes after PO intake. ST recommendation for GI Consult outpatient for barium evaluation lower esophagus. As noted #3, thus temporarily oral intake aside medications held. 3. New onset intractable nausea and emesis, suspected Acute Gastritis, possible component Colitis: Onset 05/26/23-04/02/24 bouts intractable nausea, emesis. Discussed with staff and holding usage of CPAP for aspiration risk. 05/27/23 KUB Smooth appearance of the colonic wall, possible colitis. Mild gaseous distention and oral contrast in the colon. Nonobstructive bowel gas pattern. 05/27/23 placed NG given ongoing N/V. NPO status transitioned to IV PPI. CT A/P obtained w/ noted moderate hiatal hernia with diffuse gastric wall thickening concerning for gastritis, cirrhotic liver with a 1.2 cm indeterminate mass at the dome with is known from prior, moderate right and mild left pleural effusions with bilateral lower lobe atelectasis. Moderate ascites, varices, mild splenomegaly, evidence of cholelithiasis, multiple renal cysts, colonic diverticulosis without acute diverticulitis. As noted gastritis and colitis concerns, will obtain c-diff and enteric if onset diarrhea, held bowel regimen, maintained on IV PPI, continued on IV zosyn as noted. 4. Hypercalcemia: Likely contributing to his weakness and altered mental status most probably secondary to underlying malignancy, has been previously been higher. Admission Ca12.5, ICa elevated 6.38 (4.26-5.20 range), will obtain PTH, vitamin D 1,25-OH2 and vitamin D 25-OH, initially given judicious IVFs but given ascites stopped, 05/26/23 administered lasix 40 mg IV x 1, 05/27/23 corrected Ca++ level 13.2, 05/27/23 administered pamidronate 60 mg x 1, 05/27/23 Ca 11.8, unfortunately patient had tachycardia, nausea with the infusion and VS improved immediately once infusion completed. He since has had nausea, emesis bouts overnight, possibly related with this medication, will hold additional, KUB resulted as noted with follow-up CT A/P as noted. 5. Hypokalemia: Admission K+ 3.4, recent magnesium level 2.3, repeat level in AM. Currently given his acute nausea/emesis holding oral regimen for now, giving judicious IVFs and once improved will supplement. 05/27/23 K+ 3.4 with supplementation given but unclear how much absorbed given N/V. Will repeat level in AM. 6. Nonalcoholic cirrhosis with underlying liver cancer with associated pancytopenia, chronic/chronic iron deficiency anemia: Patient following with Dr. Dahl, continued chronic oral iron supplementation, continued patient home metoprolol as BP allows, rifaximin. NH level 34; however, given constipation complaint noted to Neurology per patient will administer lactulose 20 mg BID regimen to titrate bowel movements, will continue to re-evaluate and alter as needed. 05/25/23 limited abdominal US with noted ascites in all quadrants. 05/26/23 paracentesis performed with 8200 cc fluid removed and diagnostic evaluation studies requested including cytology. Given amount removed IV albumin ~6 g/L administered with 50 gm 25% albumin administered. Discussed case with Dr. Dahl and his service will see on Monday per patient request. 7. Urinary retention with Chow catheter placement: 05/25/2023-05/26/2023 patient with significant urinary retention with straight cath attempts however eventually Chow catheter placement necessary, urinalysis obtained and unremarkable, Flomax started. Will continue and make reattempts to de-escalate catheter however if continued require catheter may necessitate outpatient follow-up with urology. 8. PAF: Patient not chronically anticoagulated secondary to his underlying liver disease process with thrombocytopenia, maintained on diltiazem, encourage continued outpatient follow-up with cardiology as previously arranged. 9. Valvular heart disease: Patient status post AV bioprosthetic valve, echo 11/06 with EF 60% with indeterminate diastolic function with severely dilated RV and global RV dysfunction, severe mitral annular calcification with RVSP 44 mmHg. 10. Depression and anxiety: Will continue patient home sertraline regimen. 11. GERD: We will continue patient on PPI. 12. Gout: We will continue patient home allopurinol regimen. 13. DEMI: BiPAP nightly. 14. DVT prophylaxis: SCDs. Holding administration of any chemoprophylaxis concept given significant thrombocytopenia. 15. CODE STATUS: DNR-CCA, no intubation. Charges/Coding Visit Charges Inpatient E&M: 69105 [facility] L3
--- NOTE | 2023-05-27 06:45 | RAD_ITS ---
HISTORY: nausea/emesis. TECHNIQUE: XR Abdomen 1 View. COMPARISON: None. FINDINGS: BOWEL GAS PATTERN: Gaseous distention of the colon with enteric contrast in the ascending transverse, and descending colon. Residual enteric contrast in nondilated ileum. Featureless large bowel. FREE AIR: Not assessed on supine view. CALCIFICATIONS: Pelvic phleboliths observed. BONES: Gamma nail fixation of chronic left femur fracture. RAD/Abdomen Single View (Portable) IMPRESSION: Smooth appearance of the colonic wall, possible colitis. Mild gaseous distention and oral contrast in the colon. Nonobstructive bowel gas pattern. Electronically Signed: Madelaine Orellana MD at 9:05 EST ,
[2023-05-27] MEDS: Dextrose 5%-Water (1000mL Bag) 1,000 ML 30 ML IV (07:06)
[2023-05-27] MEDS: Albuterol 2.5 MG/3 ML VIAL.NEB. INHALATION ×2 (07:15→20:23)
[2023-05-27] MEDS: 0.9% Saline Lock 10 ML Syringe IV ×2 (08:25→09:58)
[2023-05-27] MEDS: Allopurinol 300 MG Tablet PO (09:51)
[2023-05-27] MEDS: Lactulose 20 GM/30 ML UDC PO (09:51)
[2023-05-27] MEDS: dilTIAZem CD 120 MG Capsule PO (09:51)
[2023-05-27] MEDS: Ferrous Sulfate 325 MG Tablet PO (09:51)
[2023-05-27] MEDS: Tolterodine Tartrate 4 MG CAP.SA PO (09:51)
[2023-05-27] MEDS: rifAXIMin 550 MG Tablet PO ×2 (09:51→23:26)
[2023-05-27] MEDS: Pantoprazole Sodium 40 MG Tablet PO (09:51)
--- NOTE | 2023-05-27 11:49 | CT_ITS ---
HISTORY: Intractable N/V. TECHNIQUE: Helically acquired images were obtained of the abdomen and pelvis after the intravenous administration of 100 mL Isovue-370. A radiation dose optimization technique was used for this scan. 962 images. COMPARISON: XR same day. FINDINGS: LOWER CHEST: Moderate right and mild left pleural effusions with mild dependent lower lobe opacities. Old right seventh rib fracture. Midline sternotomy with aortic valve replacement. BOWEL: Moderate hiatal hernia with moderate diffuse gastric wall thickening. Bowel including appendix nondilated. Oral contrast in the colon without definite wall thickening. Colonic diverticulosis with limited evaluation for acute diverticulitis due to generalized intra-abdominal edema and ascites. PERITONEUM: Moderate ascites. Varices. LIVER: Nodular contour with a 12 mm hypoenhancing lesion at the dome. GALLBLADDER/BILIARY TREE: Small calcified gallstones. SPLEEN: 15 cm in length. PANCREAS/ADRENAL GLANDS: Homogeneous and nonenlarged. KIDNEYS: No hydronephrosis. Multiple cysts measuring up to 7.4 x 7.8 cm on the right with thin septation and 7.8 cm on the right. Small left renal cyst with thin mural calcification. Mild left renal cortical thinning. VESSELS: No abdominal aortic aneurysm. Atherosclerosis of the abdominal aorta and its major branches. PELVIC ORGANS: Chow catheter decompression of the bladder. ABDOMINAL WALL: Moderate subcutaneous edema. BONES: Gamma nail fixation of chronic left femoral trochanteric fracture. Degenerative change. CT/Abdomen/Pelvis W IV Cont ONLY IMPRESSION: Moderate hiatal hernia with diffuse gastric wall thickening concerning for gastritis. Cirrhotic liver with a 1.2 cm indeterminate mass at the dome; recommend follow-up multiphasic MRI or CT to assess for neoplasm. Moderate right and mild left pleural effusions with bilateral lower lobe atelectasis. Moderate ascites. Varices. Mild splenomegaly. Cholelithiasis. Multiple renal cysts. Colonic diverticulosis without acute diverticulitis. Electronically Signed: Madelaine Orellana MD at 13:32 EST ,
[2023-05-27] MEDS: Oxymetazoline 0.05% 1 SPRAY SPRAY.BTL 2 SPRAY NASAL (13:49)
[2023-05-27] MEDS: Pantoprazole Sodium 40 MG in 0.9% Normal Saline (100mL MB+) 100 ML 330 MG IV ×2 (14:35→21:09)
--- NOTE | 2023-05-27 15:10 | RAD_ITS ---
STUDY: X-RAY - ABDOMEN/PELVIS REASON FOR EXAM: Male, 83 years old. KUB with both diaphragms for NG/OG Verification TECHNIQUE: Single AP view of the abdomen / pelvis. COMPARISON: Same day 7:20 AM. FINDINGS: Bilateral pulmonary opacities are seen much worse on the right. Nasogastric tube is coiled back on itself in the upper esophagus and needs to be repositioned. There is an unremarkable bowel gas pattern. There is no demonstrated free abdominal air. Electronically Signed: Damian Morgan MD at 17:39 EST , RAD/Abdomen Single View (Portable) IMPRESSION: undefined
--- NOTE | 2023-05-27 18:15 | RAD_ITS ---
STUDY: X-RAY - ABDOMEN/PELVIS REASON FOR EXAM: Male, 83 years old. verify NG placement TECHNIQUE: Single AP view of the abdomen / pelvis. COMPARISON: 05/27/2023, 3:12 PM. FINDINGS: Nasogastric tube is not seen below the thoracic inlet. Nasogastric tube is probably coiled in the oropharynx which is often [id number]. Once again recommend removal and repositioning. Low lung volumes with atelectasis or infiltrate in both lungs, worse on the right, stable. RAD/Abdomen Single View IMPRESSION: Continued malposition nasogastric tube probably coiled in the oropharynx. Electronically Signed: Damian Morgan MD at 19:29 EST ,
--- NOTE | 2023-05-27 22:00 | RAD_ITS ---
STUDY: X-RAY - ABDOMEN/PELVIS REASON FOR EXAM: Male, 83 years old. NGT placement verification TECHNIQUE: Single AP view of the abdomen / pelvis. COMPARISON: Same day 6:03 PM. FINDINGS: Nasogastric tube now terminates in the distal stomach. No other changes since earlier today. Electronically Signed: Damian Morgan MD at 22:59 EST , RAD/Abdomen Single View (Portable) IMPRESSION: undefined
[2023-05-27] MEDS: Metoprolol Tartrate 25 MG Tablet PO (23:26)
[2023-05-27] MEDS: Sertraline 50 MG Tablet PO (23:26)
[2023-05-28] VITALS (9 sets, daily range): BP systolic 106–115; BP diastolic 65–78; PULSE 59–88; RESP 12–22; TEMP 35.9–36.6; O2SAT 96–99; BMI 32.4
[2023-05-28] MEDS: Piperacil/Tazobactam 3.375 GM in 0.9% Normal Saline (50mL MB+) 50 ML IV ×3 (04:22→20:46)
--- NOTE | 2023-05-28 06:13 | PN.HOSP_ITS ---
Reason for Visit Reason for Visit: Diagnoses Anemia in other chronic diseases classified elsewhere (05/25/23) Obstructive sleep apnea (adult) (pediatric) (05/25/23) Encephalopathy, unspecified (05/25/23) Gastro-esophageal reflux disease without esophagitis (05/25/23) Unspecified cirrhosis of liver (05/25/23) Gout, unspecified (05/25/23) Other ascites (05/25/23) Other symptoms and signs involving the nervous system (05/25/23) Dependence on other enabling machines and devices (05/25/23) Subjective Subjective Patient overnight with no acute issues per discussion with staff. There was some difficulty getting the NG tube in the day prior but he has since been tolerating it and has not had a ton of output from the [facility]. He denies further dry heaves/nausea/emesis episodes. He denies abdominal pain. Patient is fatigued and is very diego about his difficulty with recall but alert and awake. Discussed plan of care for GI involvement given findings on CT concerned could have CA stomach involvement. Patient denies fevers, chills, chest pain or dyspnea. Objective Data Objective Data Vital Signs: Vital Signs Temp Pulse Resp BP Pulse Ox O2 Del Method O2 Flow Rate 97.8 F 88 16 111/71 99 Nasal Cannula 2 05/28/23 04:43 05/28/23 04:43 05/28/23 04:43 05/28/23 04:43 05/28/23 04:43 05/28/23 04:43 05/28/23 04:43 FiO2 2 05/26/23 12:41 Oxygen Flow Rate (L/min) 2 Oxygen Delivery Method Nasal Cannula Weight: 226 lb 3.108 oz Body Mass Index (BMI) 32.4 Intake & Output: Intake and Output for Last 24 Hours 05/26/23 05/27/23 05/28/23 23:59 23:59 23:59 Intake Total 1071.9167 / 1171.9167 590 / 590 50 / 50 Output Total 9800 / 46650 1250 / 1650 900 / 900 Balance -8728.0833 / -8978.0833 -660 / -1060 -850 / -850 Lab / Micro Data 05/28/23 06:48 05/28/23 06:48 Micro: Microbiology 05/27/23 13:57 Stool Enteric Bacteriology - Final 05/27/23 10:59 Stool Clostridioides difficile (PCR) - Final 05/25/23 16:11 Urine Catheter - Catheter Legionella Antigen - Final 05/25/23 16:11 Urine Catheter - Catheter Streptococcus pneumoniae Antigen (M - Final 05/24/23 15:15 Mucosa - Nose SARS-CoV-2, Influenza & RSV (PCR) - Final Radiography Diagnostic Testing: Radiology Impression KUB X-Ray 05/27/23 06:45 IMPRESSION: Smooth appearance of the colonic wall, possible colitis. Mild gaseous distention and oral contrast in the colon. Nonobstructive bowel gas pattern. Electronically Signed: Madelaine Orellana MD at 9:05 EST , Abdomen/Pelvis CT 05/27/23 11:49 IMPRESSION: Moderate hiatal hernia with diffuse gastric wall thickening concerning for gastritis. Cirrhotic liver with a 1.2 cm indeterminate mass at the dome; recommend follow-up multiphasic MRI or CT to assess for neoplasm. Moderate right and mild left pleural effusions with bilateral lower lobe atelectasis. Moderate ascites. Varices. Mild splenomegaly. Cholelithiasis. Multiple renal cysts. Colonic diverticulosis without acute diverticulitis. Electronically Signed: Madelaine Orellana MD at 13:32 EST , KUB X-Ray 05/27/23 15:10 IMPRESSION: undefined KUB X-Ray 05/27/23 18:15 IMPRESSION: Continued malposition nasogastric tube probably coiled in the oropharynx. Electronically Signed: Damian Morgan MD at 19:29 EST , KUB X-Ray 05/27/23 22:00 IMPRESSION: undefined Physical Exam Narrative Physical Examination: General: Awake, alert, oriented to self, place, recent events, is very diego this morning mentioning he is having difficulty remembering given his prolonged hospitalization, he denies any abdominal pain or any recurrent nausea or emesis, tolerating NG. Skin: Normal color, normal turgor, no icterus, no cyanosis except for occasional staged ecchymoses, stasis disease. HEENT: AT/NC, EOMI, PERRLA, moderately dry MM, NG in place. Lungs: Diminished, diffusely, greater posterior, mildly decreased effort, no evidence of any distress, no rales, ronchi or wheezing. Heart: Regular rate and rhythm; no gallop, rub audible. Abdomen: Soft, obese, status post paracentesis, nondistended appearing, NTTP, hyperactive BS. Extremities: No cyanosis, no clubbing, bilateral lower extremity not markedly pitting ankle edema, chronic component. Neurological: Patient awake, alert, oriented as noted, cognitive function intact; pupils equally reactive to light and accommodation, cranial nerves grossly normal, moving all 4 extremities except significant left-sided hemiplegia left lower extremity, strength severely globally decreased. Psychiatric: Affect appears fatigued but more talkative today, no acute evidence of depressive or anxiety feelings. Assessment & Plan Assessment/Plan (1) Encephalopathy acute: PLAN: Plan The patient is an 83 y/o M w/ PMHx: Chronic anemia/AOCD, CKD stage III unclear subtype, HTN, HLD, Hx CVA, Anxiety an Depression, Asthma, Valvular Heart Disease, PAF/Flutter, Nonobstructive CAD, DEMI on BIPAP, Non-alcoholic Liver Cirrhosis w/ Liver cancer w/ associated chronic thrombocytopenia/anemia/mild hyperammonemia, Obesity who presents to the [facility] ED on 05/24/23 with history of worsening fatigue, malaise, debility and weakness with chronic left lower extremity debilities following previous stroke but worse with increased lethargy prompting family to bring him into the ED for evaluation with initial concern for possible stroke. 1. Acute Encephalopathy/Metabolic/Infectious, Adult FTT, multifactorial as noted also #2, #3, increased debility/weakness above baseline w/ Possible RUL Pneumonia/RUL Consolidation with possible gram-negative versus gram-positive organism versus Possible Metastatic Disease: Admission labs included CBC with WBC 4.9, N 110.7, MCV 100.3, platelet 58 with lymphopenia, CMP with chloride 110, BUN/creatinine 40/1.19, glucose 119, calcium 12.5, hepatic profile with alk phos 156, ammonia 34, BNP 104.6, troponin 24, chest x-ray with blunting right costophrenic angle with bibasilar atelectasis with increased markings right upper lobe abutting the right minor fissure of unclear significance, possibly atelectasis versus infiltrate, CT brain with chronic involutional changes, CTA head and neck with no significant major vaso-occlusive disease in the head or neck, evidence of a right upper lobe consolidation, MRI of the brain with chronic involutional changes with no acute intracranial findings. Admitted to PCU, given MRI without acute CVA suspect process in RUL likely associated with encephalopathy and increased weakness, maintained on oxygen with wean as tolerated to room air, continue ATC budesonide, PRN albuterol, initiated given history of recent hospitalization within the 90-day jackelyn on IV Zosyn and Vancomycin however negative MRSA screen thus de-escalated off Vanc therapy. Negative urine antigens. Procalcitonin 0.17. Bld cx x 2 obtained in the ED. PT/OT/ST/CM consulted for discharge planning. Given history will need to consider repeat dedicated CT following this treatment to assure not in fact metastatic disease component. 2. Increased left lower extremity weakness above baseline with encephalopathy, stroke ruled out, likely secondary to #1 as noted: Upon admission concern for initially recurrent stroke with baseline left-sided hemiplegia but worsened, CT brain with chronic involutional changes, CTA head and neck with no significant major vaso-occlusive disease in the head or neck, evidence of a right upper lobe consolidation, MRI of the brain with chronic involutional changes with no acute intracranial findings with stroke ruled out, allergy to statin with significant thrombocytopenia thus antiplatelet deferred and lieu suspicion for stroke upon admission, echocardiogram with EF 55%, moderately dilated RV, mild to moderate global RV systolic dysfunction, severe biatrial dilatation, mild TVI, bioprosthetic aortic valve with mean gradient across the valve 6.7 mmHg, bubble contrast study negative. Given no evidence of stroke following MRI completion hypertensive regimen restarted. [facility] teleneurology consulted and at this point they do believe that his presentation is likely infectious secondary to his new pneumonia however believe it could be related with his cirrhotic disease and possibly also hypercalcemia w/ recommendation of titrating bowel movements 2-3 daily w/ bowel regimen started; however, abdominal likely distended secondary to ascites confirmed on limited 05/25/23 US, 05/26/23 paracentesis performed with 8200 cc fluid removed and diagnostic evaluation studies requested including cytology. Given amount removed IV albumin ~6 g/L administered with 50 gm 25% albumin administered. Neurology also although lower suspicion recommended EEG which has also been performed 05/26/23 w/ diffuse slow activity, moderate in degree. ST evaluation for moderate oropharyngeal dysphagia w/ Mechanical Soft Textures (Soft and bite size textures IDDSI Level 6) and Hendricks-thick Liquids w/ Small Bites, Small Sips, Slow Rate, Alternate bites/solids and sips/liquids, Sitting upright and Remain sitting upright for 30 minutes after PO intake. ST recommendation for GI Consult outpatient for barium evaluation lower esophagus. As noted #3, thus temporarily oral intake aside medications held. 3. New onset intractable nausea and emesis, suspected Acute Gastritis, possible component Colitis: Onset 05/26/23-04/02/24 bouts intractable nausea, emesis. Discussed with staff and holding usage of CPAP for aspiration risk. 05/27/23 KUB Smooth appearance of the colonic wall, possible colitis. Mild gaseous distention and oral contrast in the colon. Nonobstructive bowel gas pattern. 05/27/23 placed NG given ongoing N/V. NPO status transitioned to IV PPI. 05/27/23 CT A/P obtained w/ noted moderate hiatal hernia with diffuse gastric wall thickening concerning for gastritis, cirrhotic liver with a 1.2 cm indeterminate mass at the dome with is known from prior, moderate right and mild left pleural effusions with bilateral lower lobe atelectasis, moderate ascites, varices, mild splenomegaly, evidence of cholelithiasis, multiple renal cysts, colonic diverticulosis without acute diverticulitis. As noted gastritis and colitis concerns, obtained c-diff and enteric which were negative. Maintained on IV PPI, continued on IV zosyn as noted. GI consulted and amenable to NG d/c per their discretion pending their evaluation for possible upper endoscopy for assess of his stomach given concerns as noted. 4. Hypercalcemia: Likely contributing to his weakness and altered mental status most probably secondary to underlying malignancy, has been previously been higher. Admission Ca12.5, ICa elevated 6.38 (4.26-5.20 range), will obtain PTH, vitamin D 1,25-OH2 and vitamin D 25-OH, initially given judicious IVFs but given ascites stopped, 05/26/23 administered lasix 40 mg IV x 1, 05/27/23 corrected Ca++ level 13.2, 05/27/23 administered pamidronate 60 mg x 1, 05/27/23 Ca 11.8, unfortunately patient had tachycardia, nausea with the infusion and VS improved immediately once infusion completed. He since has had nausea, emesis bouts overnight, possibly related with this medication sa noted #3. 05/28/23 Ca 11.1, trending down. 5. Hypokalemia: Admission K+ 3.4, recent magnesium level 2.3, repeat level in AM. Currently given his acute nausea/emesis holding oral regimen for now, giving judicious IVFs and once improved will supplement. 05/28/23 K+ 3.4, supplementation added to IVFs. 6. Hypernatremia, Hyperchloremia: 05/28/23 Na 146, Chl 116, as noted K also decreased, maintained on very judicious D5W with K+, continue to monitor CMP. 7. Nonalcoholic cirrhosis with underlying liver cancer with associated pancytopenia, chronic/chronic iron deficiency anemia: Patient following with Dr. Dahl, continued chronic oral iron supplementation, continued patient home metoprolol as BP allows, rifaximin. NH level 34; however, given constipation complaint noted to Neurology per patient will administer lactulose 20 mg BID regimen to titrate bowel movements, will continue to re-evaluate and alter as needed. 05/25/23 limited abdominal US with noted ascites in all quadrants. 05/26/23 paracentesis performed with 8200 cc fluid removed and diagnostic evaluation studies requested including cytology. Given amount removed IV albumin ~6 g/L administered with 50 gm 25% albumin administered. Discussed case with Dr. Dahl and his service will see on Monday per patient daughter request. 05/28/23 CBC w/ WBC 4.7, hemoglobin 10.0, MCV 103.7, platelet 50 with lymphopenia. 8. Urinary retention with Chow catheter placement: 05/25/2023-05/26/2023 patient with significant urinary retention with straight cath attempts however eventually Chow catheter placement necessary, urinalysis obtained and unremarkable, Flomax started. Will continue and make reattempts to de-escalate catheter however if continued require catheter may necessitate outpatient follow-up with urology. 9. PAF: Patient not chronically anticoagulated secondary to his underlying liver disease process with thrombocytopenia, maintained on diltiazem until temp hold with GI. Will encourage continued outpatient follow-up with cardiology as previously arranged. Will maintain on BID low dose BB with hold parameters until oral intake again allowed. GI consulted as noted. Amenable to NG d/c per their discretion pending their evaluation for possible upper endoscopy for assess of his stomach given concerns as noted. 10. Valvular heart disease: Patient status post AV bioprosthetic valve, echo 11/06 with EF 60% with indeterminate diastolic function with severely dilated RV and global RV dysfunction, severe mitral annular calcification with RVSP 44 mmHg. 11. Depression and anxiety: Will continue patient home sertraline regimen, given as able given NG status as noted. 12. GERD: We will continue patient on PPI, transitioned to IV with NG placement as noted. 13. Gout: We will continue patient home allopurinol regimen, given as able given NG status as noted 14. DEMI: BiPAP nightly. 15. DVT prophylaxis: SCDs. Holding administration of any chemoprophylaxis con cept given significant thrombocytopenia. 16. CODE STATUS: DNR-CCA, no intubation. Charges/Coding Visit Charges Inpatient E&M: 03102 [facility] [place] L3
[2023-05-28] MEDS: Albuterol 2.5 MG/3 ML VIAL.NEB. INHALATION ×3 (07:10→20:14)
[2023-05-28 07:20] LABS: Absolute Lymphocyte Count 0.22 X10^3/uL (0.83-4.51); Absolute Neutrophil Count 4.1 X10^3/uL (2.0-7.7); Basophil# 0.03 X10^3/uL; Basophil% 0.6 % (0-1); Eosinophil# 0.09 X10^3/uL; Eosinophils% 1.9 % (0-5); Hematocrit 30.5 % (40-54); Lymphocyte # 0.22 X10^3/ul (0.83-4.51); Lymphocyte % 4.7 % (19-41); Mean Corp Hgb Conc 32.8 g/dL (32-36); Mean Corpuscular Volume 103.7 fL (80-94); Mean Platelet Vol. 10.8 fl (6.2-12.0); Monocyte# 0.25 X10^3/uL; Monocyte% 5.3 % (0-10); NRBC Flagged by Analyzer 0 % (0-5); Neutrophil # 4.09 X10^3/uL (2.7-7.7); Neutrophil % 87.1 % (47-70); POSITIVE COUNT YES; POSITIVE DIFFERENTIAL YES; Platelet Count 50 K/mm3 (150-450); RBC Distribution Width CV 16.8 % (11.6-14.6); RBC Distribution Width SD 63.7 fl (35.1-43.9); Red Blood Count 2.94 M/mm3 (4.6-6.2); White Blood Count 4.7 K/mm3 (4.4-11.0)
[2023-05-28 07:26] LABS: ALB/GLOB Ratio 0.8 RATIO (0.9-2.4); AST(SGOT) 24 U/L (15-37); Alanine Aminotransfer ALT/SGPT 22 U/L (16-61); Albumin, Serum 2.1 g/dL (3.2-5.0); Alkaline Phosphatase 159 U/L (45-117); Anion Gap 1 (5-15); BUN 25 mg/dL (7-18); BUN/Creat Ratio 22.1 RATIO (10-20); Calcium,Total 11.1 mg/dL (8.5-10.1); Chloride 116 mmol/L (98-107); Creatinine, Serum 1.13 mg/dL (0.70-1.30); EST Glomerular Filtration Rate 66 mL/min (>60); Est Glom Filt Rate - Afr Amer 80 mL/min (>60); Globulin 2.8 g/dL (2.2-4.2); Glucose 108 mg/dL (74-106); Potassium 3.4 mmol/L (3.5-5.1); Protein, Total 4.9 g/dL (6.4-8.2); Sodium Level 146 mmol/L (136-145)
--- NOTE | 2023-05-28 08:05 | RAD_ITS ---
HISTORY: intractable N/V. TECHNIQUE: XR Abdomen 1 View. COMPARISON: Prior day. FINDINGS: BOWEL GAS PATTERN: Nasogastric tube tip at the level of the distal stomach. Residual contrast in the nondilated colon down to the level of the rectum with colonic diverticula noted. FREE AIR: Not assessed on supine view. No dilated bowel loops identified CALCIFICATIONS: Vascular calcifications observed. BONES: Gamma nail fixation of chronic left femur fracture. RAD/Abdomen Single View IMPRESSION: Non-obstructive bowel gas pattern. Electronically Signed: Madelaine Orellana MD at 9:24 EST ,
[2023-05-28 08:12] LABS: Differential Comment SCANNED; Platelet Estimate MKD DEC (ADEQ)
[2023-05-28] MEDS: Allopurinol 300 MG Tablet PO (09:17)
[2023-05-28] MEDS: Metoprolol Tartrate 25 MG Tablet PO ×2 (09:17→20:46)
[2023-05-28] MEDS: rifAXIMin 550 MG Tablet PO ×2 (09:17→20:46)
[2023-05-28] MEDS: Pantoprazole Sodium 40 MG in 0.9% Normal Saline (100mL MB+) 100 ML 330 MG IV ×2 (10:26→20:45)
[2023-05-28] MEDS: Potassium Chloride 40 MEQ in Dextrose 5%-Water (1000mL Bag) 1,000 ML 60 MEQ IV (12:21)
--- NOTE | 2023-05-28 16:23 | CON.PCM.GI_ITS ---
HPI Consult Data Date of Consult: 05/28/23 HPI Narrative HPI Narrative: FRANCISCO MACK, is a 83-year-old male history of cirrhosis, liver cancer, GERD, pafib, anemia, gout CVA presented to [facility] ED 05/24/2023 from assisted living for altered mental status. Reportedly he has not been himself since Monday and at that time had been having some difficulty talking and at times slurred speech. Family was concerned for stroke with patient due to his left leg weakness and not being able to talk for a period of time earlier. CT brain in ED negative, ammonia 34, patiently mildly tachycardic. Lab workup otherwise similar to patient's baseline/fairly benign. Given there is still concern patient may have had recent stroke hospitalist contacted for admission for stroke rule out. -Admission labs included CBC with WBC 4.9, N 110.7, MCV 100.3, platelet 58 with lymphopenia, CMP with chloride 110, BUN/creatinine 40/1.19, glucose 119, calcium 12.5, hepatic profile with alk phos 156, ammonia 34, BNP 104.6, troponin 24, -chest x-ray with blunting right costophrenic angle with bibasilar atelectasis with increased markings right upper lobe abutting the right minor fissure of unclear significance, possibly atelectasis versus infiltrate, CT brain with chronic involutional changes, - CTA head and neck with no significant major vaso-occlusive disease in the head or neck, evidence of a right upper lobe consolidation - MRI of the brain with chronic involutional changes with no acute intracranial findings. [facility] teleneurology consulted and at this point they do believe that his presentation is likely infectious secondary to his new pneumonia however believe it could be related with his cirrhotic disease and possibly also hypercalcemia w/ recommendation of titrating bowel movements 2-3 daily w/ bowel regimen started; Abdominal likely distended secondary to ascites confirmed on limited 05/25/23 US, 05/26/23 paracentesis performed with 8200 cc fluid removed and diagnostic evaluation studies requested including cytology. ST evaluation for moderate oropharyngeal dysphagia w/ Mechanical Soft Textures (Soft and bite size textures IDDSI Level 6) and Learned-thick Liquids w/ Small Bites, Small Sips, Slow Rate, Alternate bites/solids and sips/liquids, Sitting upright and Remain sitting upright for 30 minutes after PO intake. ST recommendation for GI Consult outpatient for barium evaluation lower esophagus New onset intractable nausea and emesis, suspected Acute Gastritis, possible component Colitis: - 05/27/23 placed NG given ongoing N/V. NPO status transitioned to IV PPI. 05/27/23 CT A/P obtained w/ noted moderate hiatal hernia with diffuse gastric wall thickening concerning for gastritis, cirrhotic liver with a 1.2 cm indeter minate mass at the dome with is known from prior, moderate right and mild left pleural effusions with bilateral lower lobe atelectasis, moderate ascites, varices, mild splenomegaly, evidence of cholelithiasis, multiple renal cysts, colonic diverticulosis without acute diverticulitis. As noted gastritis and colitis concerns, obtained c-diff and enteric which were negative. I was consulted for possible upper endoscopy for assess of his stomach [facility] Medical History (Updated 05/26/23 @ 13:03 by Ashley Chauhan, MACHINIST INSTRUCTOR-C) Anemia Anemia in chronic kidney disease Anemia of chronic disease Aortic valve disorder Asthma Body mass index (BMI) 40.0-44.9, adult Chronic acquired lymphedema CKD (chronic kidney disease), stage III Depression Essential (primary) hypertension GERD (gastroesophageal reflux disease) Gout History of cerebrovascular accident History of splenomegaly Hyperlipemia Liver cancer Morbid obesity Multiple lung nodules New onset atrial flutter Non-alcoholic cirrhosis Nonobstructive atherosclerosis of coronary artery Nonrheumatic aortic (valve) stenosis OAB (overactive bladder) Obesity Obesity (BMI 30-39.9) DEMI treated with BiPAP Osteoarthritis Paroxysmal A-fib PCK (polycystic kidney disease) Peripheral neuropathy Polycystic kidney disease 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) Right bundle branch block (RBBB) Splenomegaly Thrombocytopenia Thrombocytopenia Urge incontinence Home Medications allopurinol 300 mg tablet 300 mg PO DAILY gout 04/12/16 [History Last Taken 04/07/19] fenofibrate nanocrystallized 48 mg tablet 48 mg PO DAILY cholesterol 04/12/16 [History Last Taken 04/07/19] magnesium oxide 400 mg (241.3 mg magnesium) tablet 400 mg PO DAILY supplement 04/12/16 [History Last Taken 04/07/19] guyizmve-jfm-xhczu acid 0.4 mg-lycopene 300 mcg-lutein 250 mcg tablet 1 ea PO DAILY vitamin 04/12/16 [History Last Taken 04/07/19] sertraline 100 mg tablet 50 mg PO QHS depression 09/05/19 [History Last Taken Unknown] aspirin 81 mg tablet,delayed release (Adult Aspirin Regimen) 81 mg PO DAILY heart 11/10/20 [History Last Taken Unknown] ferrous sulfate 325 mg (65 mg iron) tablet 325 mg PO BID supplement 11/10/20 [History Last Taken Unknown] albuterol sulfate 90 mcg/actuation aerosol inhaler 2 puff inhalation Q6H PRN ASTHMA 05/25/21 [History Last Taken Unknown] fluticasone propionate 50 mcg/actuation nasal spray,suspension 1 spray intranasal DAILY nasal 05/25/21 [History Last Taken Unknown] omeprazole 40 mg capsule,delayed release 40 mg PO DAILY reflux 05/25/21 [History Last Taken Unknown] oxybutynin chloride 15 mg tablet,extended release 24 hr 30 mg PO DAILY bladder 05/25/21 [History Last Taken Unknown] ascorbic acid (vitamin C) 500 mg capsule 500 mg PO BID supplement 05/17/22 [History Last Taken Unknown] furosemide 20 mg tablet 20 mg PO Q OTHER DAY heart 05/17/22 [History Last Taken Unknown] nitroglycerin 0.4 mg sublingual tablet 0.4 mg sublingual Q5M PRN chest pain 05/17/22 [History Last Taken Unknown] cyanocobalamin (vitamin B-12) 5,000 mcg capsule 2,500 mcg PO DAILY supplement 10/29/22 [History Last Taken Unknown] rifaximin 550 mg tablet (Xifaxan) 550 mg PO BID liver 10/29/22 [History Last Taken Unknown] diltiazem HCl 120 mg capsule,extended release 24 hr 120 mg PO DAILY #30 caps 12/07/22 [Rx Last Taken Unknown] metoprolol tartrate 25 mg tablet 25 mg PO BID #60 tabs 12/07/22 [Rx Last Taken Unknown] fluticasone furoate 200 mcg-vilanterol 25 mcg/dose inhalation powder (Breo Ellipta) 1 inh inhalation DAILY breathing 04/06/23 [History Last Taken Unknown] cefdinir 300 mg capsule 300 mg PO BID antibiotic 4 days #8 caps 04/11/23 [Rx Last Taken Unknown] ferrous sulfate 325 mg (65 mg iron) tablet,delayed release mg PO 05/24/23 [History Last Taken Unknown] Allergy/AdvReac Type Severity Reaction Status Date / Time hydrocodone [From Vicodin] Allergy Other Verified 05/24/23 14:53 strawberry Allergy Hives Verified 05/24/23 14:53 venom-honey bee Allergy Anaphylaxis Verified 05/24/23 14:53 [bee venom (honey bee)] adhesive tape AdvReac Rash Verified 05/24/23 14:53 atorvastatin AdvReac PT UNSURE Verified 05/24/23 14:53 OF REACTION montelukast AdvReac PT UNSURE Verified 05/24/23 14:53 OF REACTION Family History Father CAD (coronary artery disease) Brother Diabetes Mother Heart disease Surgical History Aortic valve replaced History of aortic valve replacement with bioprosthetic valve (01/18/11) History of hip surgery (08/2019) History of knee replacement History of left heart catheterization (01/05/11) History of tonsillectomy History of total left hip arthroplasty History of total left hip replacement History of umbilical hernia repair Social History household members: none Smoking Status: Never smoker alcohol intake: never substance use type: does not use ROS ROS Narrative General: Denies fever/chills HENT: Denies headache, denies stuffy nose, denies sore throat EYES: Denies changes in vision Resp: Has had persistent cough, possibly some shortness of breath Cardiac: Denies chest pain GI: Denies abdominal pain, denies changes in bowel, denies nausea/vomiting : Denies changes in urination Extremity: Chronic lower extremity swelling MSK: Chronic left lower extremity weakness but more so than usual and more so than right side Neuro: Denies any numbness/tingling Heme: Denies any bleeding or bruising Skin: Denies rashes Psychiatric: No complaints voiced Physical Exam Narrative Physical Examination: General: Awake, alert, oriented to self, place, recent events, is very [place] this morning mentioning he is having difficulty remembering given his prolonged hospitalization, he denies any abdominal pain or any recurrent nausea or emesis, tolerating NG. Skin: Normal color, normal turgor, no icterus, no cyanosis except for occasional staged ecchymoses, stasis disease. HEENT: AT/NC, EOMI, PERRLA, moderately dry MM, NG in place. Lungs: Diminished, diffusely, greater posterior, mildly decreased effort, no evidence of any distress, no rales, ronchi or wheezing. Heart: Regular rate and rhythm; no gallop, rub audible. Abdomen: Soft, obese, status post paracentesis, nondistended appearing, NTTP, hyperactive BS. Extremities: No cyanosis, no clubbing, bilateral lower extremity not markedly pitting ankle edema, chronic component. Neurological: Patient awake, alert, oriented as noted, cognitive function intact; pupils equally reactive to light and accommodation, cranial nerves grossly normal, moving all 4 extremities except significant left-sided hemiplegia left lower extremity, strength severely globally decreased. Psychiatric: Affect appears fatigued but more talkative today, no acute evidence of depressive or anxiety feelings. Lab / Micro Data 05/29/23 05:15 05/29/23 05:15 Labs: Laboratory Results - last 24 hr 05/26/23 05:45: Vit D 1,25-Dihydroxy 29.9 05/26/23 12:07: Fl Pathologist Comment Reviewed 05/29/23 05:15: WBC 4.4, RBC 2.88 L, Hgb 9.7 L, Hct 29.9 L, MCV 103.8 H, MCH 33.7 H, MCHC 32.4, RDW Std Deviation 64.0 H, RDW Coeff of Raina 16.8 H, Plt Count 55 L, MPV 11.4, Immature Gran % (Auto) 0.200, Neut % (Auto) 87.3 H, Lymph % (Auto) 5.2 L, [place] % (Auto) 4.1, Eos % (Auto) 2.7, Baso % (Auto) 0.5, Absolute Neuts (auto) 3.8, Absolute Lymphs (auto) 0.23 L, Nucleated RBC % 0, Sodium 146 H , Potassium 3.7, Chloride 116 H, Carbon Dioxide 27.0, Anion Gap 3 L, BUN 21 H, Creatinine 0.95, Estim Creat Clear Calc 69.56, Est GFR (MDRD) Af Amer 97, Est GFR (MDRD) Non-Af 80, BUN/Creatinine Ratio 22.1 H, Glucose 106, Calcium 10.8 H, Total Bilirubin 0.70, AST 22, ALT 18, Alkaline Phosphatase 140 H, Total Protein 4.7 L, Albumin 2.0 L, Globulin 2.7, Albumin/Globulin Ratio 0.7 L Micro: Microbiology 05/27/23 13:57 Stool Enteric Bacteriology - Final Assessment & Plan Assessment/Plan (1) Neurologic abnormality: (2) Gout: (3) GERD (gastroesophageal reflux disease): (4) Anemia of chronic disease: (5) Cirrhosis: QUALIFIERS: Hepatic cirrhosis type: unspecified hepatic cirrhosis Ascites presence: with ascites Qualified Code(s): K74.60 - Unspecified cirrhosis of liver; R18.8 - Other ascites (6) Obstructive sleep apnea on CPAP: PLAN: Plan 83-year-old gentleman with past medical history of Asher cirrhosis complicated by hepatocellular carcinoma with malignant ascites currently status post large- volume paracentesis and NG tube placed due to intractable nausea vomiting # Pancytopenia -Patient routinely pancytopenic -White blood cell count 4.9, lower limits of normal today though usually is below the 4.4 threshold -Appears to be at baseline #Liver cancer and cirrhosis -Follows with Dr. 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 Given the CT findings I will perform an upper endoscopy to evaluate his upper GI tract. The family was explained alternatives, risk, benefits including not withstanding bleeding, infection, sepsis, perforation, need for emergent urgent . He will have an ASA of 3. Charges/Coding Visit Charges Inpatient E&M: 11502 Init Hosp L3
[2023-05-28] MEDS: Sertraline 50 MG Tablet PO (20:46)
[2023-05-29] VITALS (12 sets, daily range): BP systolic 80–112; BP diastolic 52–78; PULSE 70–103; RESP 14–18; TEMP 36.1–36.6; O2SAT 88–100; BMI 32.5
--- NOTE | 2023-05-29 01:00 | NURSING ---
this nurse took over care for this patient at 0100. pt resting with eyes closed, call light within reach
[2023-05-29] MEDS: Piperacil/Tazobactam 3.375 GM in 0.9% Normal Saline (50mL MB+) 50 ML IV ×3 (05:28→22:23)
[2023-05-29 06:16] LABS: Absolute Lymphocyte Count 0.23 X10^3/uL (0.83-4.51); Absolute Neutrophil Count 3.8 X10^3/uL (2.0-7.7); Basophil# 0.02 X10^3/uL; Basophil% 0.5 % (0-1); Eosinophil# 0.12 X10^3/uL; Eosinophils% 2.7 % (0-5); Hematocrit 29.9 % (40-54); Hemoglobin 9.7 g/dL (13.0-16.5); Lymphocyte # 0.23 X10^3/ul (0.83-4.51); Lymphocyte % 5.2 % (19-41); Mean Corp Hgb Conc 32.4 g/dL (32-36); Mean Corpuscular Hgb 33.7 pg (27.0-32.0); Mean Corpuscular Volume 103.8 fL (80-94); Mean Platelet Vol. 11.4 fl (6.2-12.0); Monocyte# 0.18 X10^3/uL; Monocyte% 4.1 % (0-10); NRBC Flagged by Analyzer 0 % (0-5); Neutrophil # 3.83 X10^3/uL (2.7-7.7); Neutrophil % 87.3 % (47-70); POSITIVE COUNT YES; POSITIVE DIFFERENTIAL YES; Platelet Count 55 K/mm3 (150-450); RBC Distribution Width CV 16.8 % (11.6-14.6); Red Blood Count 2.88 M/mm3 (4.6-6.2); White Blood Count 4.4 K/mm3 (4.4-11.0)
[2023-05-29 07:03] LABS: ALB/GLOB Ratio 0.7 RATIO (0.9-2.4); AST(SGOT) 22 U/L (15-37); Alanine Aminotransfer ALT/SGPT 18 U/L (16-61); Alkaline Phosphatase 140 U/L (45-117); Anion Gap 3 (5-15); BUN 21 mg/dL (7-18); BUN/Creat Ratio 22.1 RATIO (10-20); Calcium,Total 10.8 mg/dL (8.5-10.1); Chloride 116 mmol/L (98-107); Creatinine, Serum 0.95 mg/dL (0.70-1.30); EST Glomerular Filtration Rate 80 mL/min (>60); Est Glom Filt Rate - Afr Amer 97 mL/min (>60); Estimated Creatinine Clearance 69.56 ml/min; Globulin 2.7 g/dL (2.2-4.2); Glucose 106 mg/dL (74-106); Potassium 3.7 mmol/L (3.5-5.1); Protein, Total 4.7 g/dL (6.4-8.2); Sodium Level 146 mmol/L (136-145)
[2023-05-29] MEDS: Albuterol 2.5 MG/3 ML VIAL.NEB. INHALATION ×3 (07:19→19:25)
[2023-05-29] MEDS: rifAXIMin 550 MG Tablet PO ×2 (09:08→22:22)
[2023-05-29] MEDS: Metoprolol Tartrate 25 MG Tablet PO (09:08)
[2023-05-29] MEDS: Allopurinol 300 MG Tablet PO (09:08)
[2023-05-29] MEDS: Ferrous Sulfate 300 MG/5 ML UDC PO ×2 (09:09→17:48)
[2023-05-29] MEDS: Pantoprazole Sodium 40 MG in 0.9% Normal Saline (100mL MB+) 100 ML 330 MG IV ×2 (10:04→22:22)
[2023-05-29 11:08] LABS: Vitamin D 1,25-Dihydroxy 29.9 pg/mL (24.8-81.5)
--- NOTE | 2023-05-29 11:09 | NURSING ---
Analia agency appointments supervisor nurse documenting/monitoring tele.
[2023-05-29 13:37] LABS: Pathologist Comment/Body Fluid Reviewed
--- NOTE | 2023-05-29 14:54 | NURSING ---
Yanna Garcia resuming care of pt
--- NOTE | 2023-05-29 16:02 | NURSING ---
Analia discharge specialist nurse continues to run strips/document/assess telemetry.
--- NOTE | 2023-05-29 16:50 | OP.CCLET_ITS ---
05/29/2023 Ricky Bradley [address] [place] [address] Re : Upper GI endoscopy procedure for Satya Medellin Dear Dr. Bradley This procedure was performed on Monday, May 29, 2023. My impressions and recommendations are as follows: Impressions : - Grade II esophageal varices. Incompletely eradicated. Banded. - Acute gastritis. - No gross lesions in the second portion of the duodenum. - No specimens collected. Recommendations : - [facility]. - Full liquid diet. - Continue present medications. My findings are described in the full procedure note, which is enclosed. If I can be of further assistance, please feel free to contact me at . Sincerely, Frank Gaspar, 05/29/2023 4:49:29 PM This report has been signed electronically.
--- NOTE | 2023-05-29 16:50 | OP.EGD_ITS ---
Patient Name: Satya Medellin Procedure Date: 05/29/2023 4:20 PM Date of : 1940 Age: 83 Procedure: Upper GI endoscopy Indications: Iron deficiency anemia, Failure to respond to medical treatment, Cirrhosis with suspected esophageal varices Providers: Frank Gaspar DO Medicines: Monitored Anesthesia Care Patient Profile: This is an 83 year old male. Refer to note in patient chart for documentation of history and physical. Patient has symptoms of acute vomiting. Complications: No immediate complications. Procedure: Pre-Anesthesia Assessment: - Prior to the procedure, a History and Physical was performed, and patient medications and allergies were reviewed. The patient is competent. The risks and benefits of the procedure and the sedation options and risks were discussed with the patient. All questions were answered and informed consent was obtained. Patient identification and proposed procedure were verified by the physician in the pre-procedure area. Mental Status Examination: alert and oriented. Airway Examination: normal oropharyngeal airway and neck mobility. Respiratory Examination: clear to auscultation. CV Examination: normal. Prophylactic Antibiotics: The patient does not require prophylactic antibiotics. Prior Anticoagulants: The patient has taken no anticoagulant or antiplatelet agents. ASA Grade Assessment: IV - A patient with severe systemic disease that is a constant threat to life. After reviewing the risks and benefits, the patient was deemed in satisfactory condition to undergo the procedure. The anesthesia plan was to use monitored anesthesia care (MAC). Immediately prior to administration of medications, the patient was re-assessed for adequacy to receive sedatives. The heart rate, respiratory rate, oxygen saturations, blood pressure, adequacy of pulmonary ventilation, and response to care were monitored throughout the procedure. The physical status of the patient was re-assessed after the procedure. After obtaining informed consent, the endoscope was passed under direct vision. Throughout the procedure, the patient's blood pressure, pulse, and oxygen saturations were monitored continuously. The Endoscope was introduced through the mouth, and advanced to the second part of duodenum. The upper GI endoscopy was accomplished without difficulty. The patient tolerated the procedure well. Scope In: 4:30:30 PM Scope Out: 4:33:48 PM Total Procedure Duration Time 0 hours 3 minutes 18 seconds Findings: Grade II varices were found in the middle third of the esophagus and in the lower third of the esophagus. They were 5 mm in largest diameter. Three bands were successfully placed with incomplete eradication of varices. There was no bleeding during the procedure. Diffuse severe inflammation characterized by erythema and friability was found in the entire examined stomach. No gross lesions were noted in the second portion of the duodenum. Impression: - Grade II esophageal varices. Incompletely eradicated. Banded. - Acute gastritis. - No gross lesions in the second portion of the duodenum. - No specimens collected. Recommendation: - [facility]. - Full liquid diet. - Continue present medications. Procedure Code(s): --- Professional --- 09522, Esophagogastroduodenoscopy, flexible, transoral; with band ligation of esophageal/gastric varices CPT copyright 2021 [employer]. All rights reserved. The codes documented in this report are preliminary and upon service line bus cleaner review may be revised to meet current compliance requirements. Frank Gaspar DO 05/29/2023 4:49:29 PM This report has been signed electronically. Number of Addenda: 0 Note Initiated On: 05/29/2023 4:20 PM
--- NOTE | 2023-05-29 17:43 | NURSING ---
POA notified of NGT removal. Notified of EGD results as well as diet advancement.
[2023-05-29] MEDS: BUDESONIDE 0.25 MG/2 ML INHALATION (19:25)
--- NOTE | 2023-05-29 19:53 | PN.HOSP_ITS ---
Reason for Visit Reason for Visit: Diagnoses Anemia in other chronic diseases classified elsewhere (05/25/23) Obstructive sleep apnea (adult) (pediatric) (05/25/23) Encephalopathy, unspecified (05/25/23) Gastro-esophageal reflux disease without esophagitis (05/25/23) Unspecified cirrhosis of liver (05/25/23) Gout, unspecified (05/25/23) Other ascites (05/25/23) Other symptoms and signs involving the nervous system (05/25/23) Dependence on other enabling machines and devices (05/25/23) Subjective Subjective Patient was seen and examined today, his daughter is in the room at the time of my examination. Patient's NG tube was discontinued by GI today, he had an EGD performed which showed acute gastritis and esophageal varices. According to the patient's daughter, patient will undergo another modified barium swallow tomorrow to see if he can eat. I talked with oncology today (Dr. Dahl) he stated that he did not need to see the patient in consultation, he stated the patient's hepatoma was very small and it did look like it had responded to radiation treatment. I relayed this to the patient's daughter. Objective Data Objective Data Vital Signs: Vital Signs Temp Pulse Resp BP Pulse Ox O2 Del Method O2 Flow Rate 97.0 F L 76 18 98/67 96 Nasal Cannula 3 05/29/23 16:55 05/29/23 16:55 05/29/23 16:55 05/29/23 16:55 05/29/23 16:55 05/29/23 16:55 05/29/23 16:55 FiO2 2 05/26/23 12:41 Oxygen Flow Rate (L/min) 3 Oxygen Delivery Method Nasal Cannula Weight: 102.9 kg Body Mass Index (BMI) 32.5 Intake & Output: Intake and Output for Last 24 Hours 05/27/23 05/28/23 05/29/23 23:59 23:59 23:59 Intake Total 590 / 590 1157.00 / 1157.00 1480 / 1480 Output Total 1250 / 1650 1375 / 1525 9310 / 9310 Balance -660 / -1060 -218.00 / -368.00 -7830 / -7830 Lab / Micro Data 05/29/23 05:15 05/29/23 05:15 Labs: Laboratory Results - last 24 hr 05/26/23 05:45: Vit D 1,25-Dihydroxy 29.9 05/26/23 12:07: Fl Pathologist Comment Reviewed 05/29/23 05:15: WBC 4.4, RBC 2.88 L, Hgb 9.7 L, Hct 29.9 L, MCV 103.8 H, MCH 33.7 H, MCHC 32.4, RDW Std Deviation 64.0 H, RDW Coeff of Raina 16.8 H, Plt Count 55 L, MPV 11.4, Immature Gran % (Auto) 0.200, Neut % (Auto) 87.3 H, Lymph % (Auto) 5.2 L, [place] % (Auto) 4.1, Eos % (Auto) 2.7, Baso % (Auto) 0.5, Absolute Neuts (auto) 3.8, Absolute Lymphs (auto) 0.23 L, Nucleated RBC % 0, Sodium 146 H , Potassium 3.7, Chloride 116 H, Carbon Dioxide 27.0, Anion Gap 3 L, BUN 21 H, Creatinine 0.95, Estim Creat Clear Calc 69.56, Est GFR (MDRD) Af Amer 97, Est GFR (MDRD) Non-Af 80, BUN/Creatinine Ratio 22.1 H, Glucose 106, Calcium 10.8 H, Total Bilirubin 0.70, AST 22, ALT 18, Alkaline Phosphatase 140 H, Total Protein 4.7 L, Albumin 2.0 L, Globulin 2.7, Albumin/Globulin Ratio 0.7 L Micro: Microbiology 05/27/23 13:57 Stool Enteric Bacteriology - Final 05/27/23 10:59 Stool Clostridioides difficile (PCR) - Final 05/25/23 16:11 Urine Catheter - Catheter Legionella Antigen - Final 05/25/23 16:11 Urine Catheter - Catheter Streptococcus pneumoniae Antigen (M - Final 05/24/23 15:15 Mucosa - Nose SARS-CoV-2, Influenza & RSV (PCR) - Final Physical Exam Const alert and no apparent distress Constitutional Narrative: Patient appears unwell and frail General Appearance: cooperative, well kempt and well developed Orientation / Consciousness: awake, oriented to person and oriented to place HEENT normocephalic, head/scalp atraumatic and moist oral mucous membranes Eyes PERRL, EOMs intact bilaterally and conjunctivae normal Neck supple, no JVD, thyroid normal and no carotid bruits General: trachea midline Resp normal respiratory effort, no retractions, no use of accessory muscles and clear to auscultation bilaterally Auscultation: Negative for rales, rhonchi or wheezes Cardio regular rate, regular rhythm, S1 normal heart sound, S2 normal heart sound, no murmurs, no rub and no gallops GI normal to inspection, nondistended, normoactive bowel sounds, soft to palpation, non-tender and non-distended Extremity no clubbing, cyanosis or edema Skin no rashes or lesions noted General Skin Exam: no breakdown Neuro CN's II-XII intact bilaterally, moves all extremities, no focal motor deficits and no sensory deficits noted Sensorium / Orientation: awake, oriented to person and oriented to place Speech: speech normal Psych affect normal Psych Narrative: Patient appears tired and lethargic Assessment & Plan Assessment/Plan (1) Encephalopathy acute: PLAN: Plan 1. Acute metabolic encephalopathy-etiology unclear at this point, continue supportive care #2 hypercalcemia-etiology unclear at this time, calcium is trending downward at this time #3 cirrhosis-complicates care, medical course, recovery, and prognosis #4 generalized debility due to advanced age and multiple medical problems-PT and OT are seeing patient, he will need short-term placement in a skilled facility, he currently resides in assisted living #5 acute gastritis-patient is currently on a PPI #6 esophageal varices-banded by gastroenterology today #7 hepatic cancer-the patient's hepatic lesion is approximately 12 mm in diameter, I discussed this with the patient's oncologist today #8 urinary retention-patient currently has a Chow catheter #9 paroxysmal atrial fibrillation-patient is not chronically anticoagulated secondary to underlying hepatic disease Total clinical time spent by myself addressing the patient's medical issues, reviewing all of his data, and collaborating with patient's care team: 35 minutes Charges/Coding Visit Charges Inpatient E&M: 28297 Subs Hosp L2
[2023-05-29] MEDS: Sertraline 50 MG Tablet PO (22:23)
[2023-05-30] VITALS (16 sets, daily range): BP systolic 96–112; BP diastolic 58–90; PULSE 63–133; RESP 16–20; TEMP 36.1–36.6; O2SAT 92–100; BMI 32.5
[2023-05-30] MEDS: Menthol/Lanolin/Calamine/Znox 113 GM Tube 1 APPLIC TOPICAL ×2 (06:10→21:12)
[2023-05-30] MEDS: Piperacil/Tazobactam 3.375 GM in 0.9% Normal Saline (50mL MB+) 50 ML IV ×3 (06:10→22:12)
[2023-05-30 06:26] LABS: Absolute Lymphocyte Count 0.26 X10^3/uL (0.83-4.51); Basophil# 0.03 X10^3/uL; Basophil% 0.7 % (0-1); Eosinophil# 0.13 X10^3/uL; Eosinophils% 2.8 % (0-5); Hematocrit 32.8 % (40-54); Hemoglobin 10.5 g/dL (13.0-16.5); Lymphocyte # 0.26 X10^3/ul (0.83-4.51); Lymphocyte % 5.7 % (19-41); Mean Corpuscular Hgb 32.8 pg (27.0-32.0); Mean Corpuscular Volume 102.5 fL (80-94); Mean Platelet Vol. 11.6 fl (6.2-12.0); Monocyte# 0.18 X10^3/uL; Monocyte% 3.9 % (0-10); NRBC Flagged by Analyzer 0 % (0-5); Neutrophil # 3.98 X10^3/uL (2.7-7.7); Neutrophil % 86.7 % (47-70); POSITIVE COUNT YES; POSITIVE DIFFERENTIAL YES; Platelet Count 52 K/mm3 (150-450); RBC Distribution Width CV 16.9 % (11.6-14.6); RBC Distribution Width SD 63.5 fl (35.1-43.9); White Blood Count 4.6 K/mm3 (4.4-11.0)
[2023-05-30 06:46] LABS: BUN 22 mg/dL (7-18); BUN/Creat Ratio 22.6 RATIO (10-20); Calcium,Total 10.4 mg/dL (8.5-10.1); Chloride 117 mmol/L (98-107); Creatinine, Serum 0.97 mg/dL (0.70-1.30); EST Glomerular Filtration Rate 78 mL/min (>60); Est Glom Filt Rate - Afr Amer 94 mL/min (>60); Estimated Creatinine Clearance 68.16 ml/min; Glucose 90 mg/dL (74-106); Phosphorus 1.5 mg/dL (2.5-4.9); Potassium 3.6 mmol/L (3.5-5.1); Sodium Level 147 mmol/L (136-145)
[2023-05-30] MEDS: Albuterol 2.5 MG/3 ML VIAL.NEB. INHALATION ×2 (06:51→12:59)
[2023-05-30] MEDS: dilTIAZem CD 120 MG Capsule PO (07:59)
[2023-05-30] MEDS: Ferrous Sulfate 300 MG/5 ML UDC PO ×2 (09:50→18:18)
[2023-05-30] MEDS: Metoprolol Tartrate 25 MG Tablet PO ×2 (09:50→21:10)
[2023-05-30] MEDS: Tolterodine Tartrate 4 MG CAP.SA PO (09:51)
[2023-05-30] MEDS: rifAXIMin 550 MG Tablet PO ×2 (09:51→21:12)
[2023-05-30] MEDS: Pantoprazole Sodium 40 MG in 0.9% Normal Saline (100mL MB+) 100 ML 330 MG IV ×2 (09:55→21:09)
[2023-05-30] MEDS: Allopurinol 300 MG Tablet PO (10:10)
[2023-05-30] MEDS: Lidocaine 2% (20 ml mdv) 20 ML Vial INFILT (14:27)
--- NOTE | 2023-05-30 15:08 | PCM.OP.PRO ---
Procedure Report Date of Procedure: 05/30/23 Assessment & Plan Assessment/Plan (1) Ascites: QUALIFIERS: Ascites type: malignant Qualified Code(s): R18.0 - Malignant ascites PLAN: PROCEDURE: Ultrasound guided paracentesis ORDERING PROVIDER: Dr. Mendze INDICATION: Male, 83 years old. Ascites with history of liver cancer. PROVIDER: SINDY Bauer TECHNIQUE: The risks, benefits, and alternatives to the procedure were explained to the patient and daughter via telephone. Consent for procedure was obtained from daughter over the phone.. The specific risks of bleeding, infection, and damage to bowel were detailed and accepted. Witnessed informed consent was obtained. The abdomen was ultrasonographically surveyed. An appropriate pocket of fluid was identified in the right upper quadrant. The skin was prepped with chlorhexidine and sterile field established. 2% lidocaine was used for local anesthetic. Using ultrasound guidance, the peritoneal cavity was accessed with a 5-Italian paracentesis needle/catheter system. The trocar was removed. A total of 6300 ml of clear yellow colored fluid was removed from the peritoneal cavity. The catheter was removed and a sterile dressing was applied. The procedure was well tolerated. IMPRESSION: Successful ultrasound-guided paracentesis with right upper quadrant access site. Procedures Radiology Radiology US Procedures: 78770 Paracentesis
[2023-05-30] MEDS: Na Biphos/Potassium Phosphate PACKET 1 PACKET PO ×2 (15:39→21:12)
[2023-05-30] MEDS: Albumin Human 25% (100 mL) 25 GM/100 ML BAG IV ×2 (16:46→18:53)
[2023-05-30] MEDS: 0.9% Saline Lock 10 ML Syringe IV ×2 (16:47→21:00)
--- NOTE | 2023-05-30 17:07 | PN.HOSP_ITS ---
Reason for Visit Reason for Visit: Diagnoses Anemia in other chronic diseases classified elsewhere (05/25/23) Obstructive sleep apnea (adult) (pediatric) (05/25/23) Encephalopathy, unspecified (05/25/23) Gastro-esophageal reflux disease without esophagitis (05/25/23) Unspecified cirrhosis of liver (05/25/23) Gout, unspecified (05/25/23) Malignant ascites (05/25/23) Other ascites (05/25/23) Other symptoms and signs involving the nervous system (05/25/23) Dependence on other enabling machines and devices (05/25/23) Subjective Subjective Patient was seen and examined today, I discussed his care with gastroenterology today briefly, I had the patient undergo paracentesis today and 6200 cc of fluid was removed. After discussing his care with gastroenterology, I placed the patient on spironolactone and Lasix. I talked to speech therapy briefly today, they did not think the patient needed to repeat modified barium swallow performed. Objective Data Objective Data Vital Signs: Vital Signs Temp Pulse Resp BP Pulse Ox O2 Del Method O2 Flow Rate 97.6 F L 66 16 108/67 99 Nasal Cannula 3 05/30/23 15:10 05/30/23 15:10 05/30/23 15:10 05/30/23 15:10 05/30/23 15:10 05/30/23 15:10 05/30/23 15:10 FiO2 2 05/26/23 12:41 Oxygen Flow Rate (L/min) 3 Oxygen Delivery Method Nasal Cannula Weight: 103 kg Body Mass Index (BMI) 32.5 Intake & Output: Intake and Output for Last 24 Hours 05/28/23 05/29/23 05/30/23 23:59 23:59 23:59 Intake Total 1157.00 / 1157.00 1590 / 1590 450 / 450 Output Total 1375 / 1525 9310 / 9610 7000 / 7000 Balance -218.00 / -368.00 -7720 / -8020 -6550 / -6550 Lab / Micro Data 05/30/23 05:55 05/30/23 05:55 Labs: Laboratory Results - last 24 hr 05/30/23 05:55: WBC 4.6, RBC 3.20 L, Hgb 10.5 L, Hct 32.8 L, MCV 102.5 H, MCH 32.8 H, MCHC 32.0, RDW Std Deviation 63.5 H, RDW Coeff of Raina 16.9 H, Plt Count 52 L, MPV 11.6, Immature Gran % (Auto) 0.200, Neut % (Auto) 86.7 H, Lymph % (Auto) 5.7 L, [place] % (Auto) 3.9, Eos % (Auto) 2.8, Baso % (Auto) 0.7, Absolute Neuts (auto) 4.0, Absolute Lymphs (auto) 0.26 L, Nucleated RBC % 0, Sodium 147 H , Potassium 3.6, Chloride 117 H, Carbon Dioxide 27.0, BUN 22 H, Creatinine 0.97, Estim Creat Clear Calc 68.16, Est GFR (MDRD) Af Amer 94, Est GFR (MDRD) Non-Af 78, BUN/Creatinine Ratio 22.6 H, Glucose 90, Calcium 10.4 H, Phosphorus 1.5 L, Albumin 2.0 L Micro: Microbiology 05/29/23 17:24 Sputum, Expectorated/Coughed Gram Stain - Final 05/29/23 17:24 Sputum, Expectorated/Coughed Respiratory Culture - Preliminary Appears to be normal respiratory naomie. Further studies to follow. 05/27/23 13:57 Stool Enteric Bacteriology - Final 05/27/23 10:59 Stool Clostridioides difficile (PCR) - Final 05/25/23 16:11 Urine Catheter - Catheter Legionella Antigen - Final 05/25/23 16:11 Urine Catheter - Catheter Streptococcus pneumoniae Antigen (M - Final 05/24/23 15:15 Mucosa - Nose SARS-CoV-2, Influenza & RSV (PCR) - Final Physical Exam Const no apparent distress Constitutional Narrative: Patient is lethargic today but responds to verbal cues General Appearance: cooperative and well developed Orientation / Consciousness: awake HEENT normocephalic and head/scalp atraumatic Eyes PERRL, EOMs intact bilaterally and conjunctivae normal Neck supple, no JVD, thyroid normal and no carotid bruits General: trachea midline Resp normal respiratory effort, no retractions, no use of accessory muscles and clear to auscultation bilaterally Auscultation: Negative for rales, rhonchi or wheezes Cardio regular rate, regular rhythm, S1 normal heart sound, S2 normal heart sound, no murmurs, no rub and no gallops GI normal to inspection, nondistended, normoactive bowel sounds, soft to palpation and non-tender GI Narrative: At the time my examination, there was moderate abdominal distention noted, abdomen was soft and nontender Extremity no clubbing, cyanosis or edema Skin no rashes or lesions noted General Skin Exam: no breakdown Neuro CN's II-XII intact bilaterally, moves all extremities, no focal motor deficits and no sensory deficits noted Sensorium / Orientation: awake Speech: speech normal Psych Psych Narrative: Patient has flat affect Assessment & Plan Assessment/Plan (1) Encephalopathy acute: PLAN: Plan 1. Acute metabolic encephalopathy-etiology unclear at this point, continue supportive care #2 hypercalcemia-etiology unclear at this time, calcium is trending downward at this time #3 cirrhosis-complicates care, medical course, recovery, and prognosis, patient was placed on Aldactone and Lasix today, again patient underwent a paracentesis today with removal of 6200 cc of fluid. #4 generalized debility due to advanced age and multiple medical problems-PT and OT are seeing patient, he will need short-term placement in a skilled facility, he currently resides in assisted living #5 acute gastritis-patient is currently on a PPI #6 esophageal varices-banded by gastroenterology #7 hepatic cancer-the patient's hepatic lesion is approximately 12 mm in diameter, I discussed this with the patient's oncologist #8 urinary retention-patient currently has a Chow catheter #9 paroxysmal atrial fibrillation-patient is not chronically anticoagulated secondary to underlying hepatic disease Total clinical time spent by myself addressing the patient's medical issues, reviewing all of his data, and collaborating with patient's care team: 25 minutes Charges/Coding Visit Charges Inpatient E&M: 94136 [facility] Hosp L1
--- NOTE | 2023-05-30 17:44 | EX.PCM.PN.GI ---
Subjective Subjective Patient underwent large-volume paracentesis and had 6300 mL of serosanguineous fluid removed. Objective Data Objective Data Vital Signs: Vital Signs Temp Pulse Resp BP Pulse Ox O2 Del Method O2 Flow Rate 97.6 F L 66 16 108/67 99 Nasal Cannula 3 05/30/23 15:10 05/30/23 15:10 05/30/23 15:10 05/30/23 15:10 05/30/23 15:10 05/30/23 15:10 05/30/23 15:10 FiO2 2 05/26/23 12:41 Oxygen Flow Rate (L/min) 3 Oxygen Delivery Method Nasal Cannula Weight: 227 lb 1.218 oz Body Mass Index (BMI) 32.5 Intake & Output: Intake and Output for Last 24 Hours 05/28/23 05/29/23 05/30/23 23:59 23:59 23:59 Intake Total 1157.00 / 1157.00 1590 / 1590 450 / 450 Output Total 1375 / 1525 9310 / 9610 7000 / 7000 Balance -218.00 / -368.00 -7720 / -8020 -6550 / -6550 Lab / Micro Data 05/30/23 05:55 05/30/23 05:55 Labs: Laboratory Results - last 24 hr 05/30/23 05:55: WBC 4.6, RBC 3.20 L, Hgb 10.5 L, Hct 32.8 L, MCV 102.5 H, MCH 32.8 H, MCHC 32.0, RDW Std Deviation 63.5 H, RDW Coeff of Raina 16.9 H, Plt Count 52 L, MPV 11.6, Immature Gran % (Auto) 0.200, Neut % (Auto) 86.7 H, Lymph % (Auto) 5.7 L, [place] % (Auto) 3.9, Eos % (Auto) 2.8, Baso % (Auto) 0.7, Absolute Neuts (auto) 4.0, Absolute Lymphs (auto) 0.26 L, Nucleated RBC % 0, Sodium 147 H, Potassium 3.6, Chloride 117 H, Carbon Dioxide 27.0, BUN 22 H, Creatinine 0.97, Estim Creat Clear Calc 68.16, Est GFR (MDRD) Af Amer 94, Est GFR (MDRD) Non-Af 78, BUN/Creatinine Ratio 22.6 H, Glucose 90, Calcium 10.4 H, Phosphorus 1.5 L, Albumin 2.0 L Micro: Microbiology 05/29/23 17:24 Sputum, Expectorated/Coughed Gram Stain - Final 05/29/23 17:24 Sputum, Expectorated/Coughed Respiratory Culture - Preliminary Appears to be normal respiratory naomie. Further studies to follow. 05/27/23 13:57 Stool Enteric Bacteriology - Final 05/27/23 10:59 Stool Clostridioides difficile (PCR) - Final 05/25/23 16:11 Urine Catheter - Catheter Legionella Antigen - Final 05/25/23 16:11 Urine Catheter - Catheter Streptococcus pneumoniae Antigen (M - Final 05/24/23 15:15 Mucosa - Nose SARS-CoV-2, Influenza & RSV (PCR) - Final Physical Exam Const no apparent distress General Appearance: cooperative and well developed Orientation / Consciousness: awake HEENT normocephalic and head/scalp atraumatic Eyes PERRL, EOMs intact bilaterally and conjunctivae normal Neck supple, no JVD, thyroid normal and no carotid bruits General: trachea midline Resp normal respiratory effort, no retractions, no use of accessory muscles and clear to auscultation bilaterally Auscultation: Negative for rales, rhonchi or wheezes Cardio regular rate, regular rhythm, S1 normal heart sound, S2 normal heart sound, no murmurs, no rub and no gallops GI normal to inspection, nondistended, normoactive bowel sounds, soft to palpation and non-tender GI Narrative: At the time my examination, there was moderate abdominal distention noted, abdomen was soft and nontender Extremity no clubbing, cyanosis or edema Skin no rashes or lesions noted General Skin Exam: no breakdown Neuro CN's II-XII intact bilaterally, moves all extremities, no focal motor deficits and no sensory deficits noted Sensorium / Orientation: awake Speech: speech normal Psych Psych Narrative: Patient has flat affect Assessment & Plan Assessment/Plan (1) Encephalopathy acute: PLAN: Plan The patient is an 83 y/o M w/ PMHx: Chronic anemia/AOCD, CKD sP, Non-alcoholic Liver Cirrhosis w/ Liver cancer w/ associated chronic thrombocytopenia/anemia/mild hyperammonemia complicated by decompensated liver disease leading to refractory ascites. Acute Encephalopathy likely secondary to decompensated liver disease. Recommendations are Xifaxan 550 mg p.o. twice daily and lactulose 30 cc every 6 hours [id number]. His current MELD is low at 16. He is a child Swain class C. Nonalcoholic cirrhosis with underlying liver cancer with associated pancytopenia, chronic/chronic iron deficiency anemia: Patient following with Dr. Dahl, - 05/25/23 limited abdominal US with noted ascites in all quadrants. - 05/26/23 paracentesis performed with 8200 cc fluid removed and diagnostic evaluation studies requested including cytology. Given amount removed IV albumin ~6 g/L administered with 50 gm 25% albumin administered. - 05/30/23 6300 serosanguineous fluid removed. He will need albumin. Recommend to start him on midodrine 10 mg p.o. twice daily as it can be associated with decreased amount of ascites as formed along with starting him on 40 mg of Lasix and 50 mg of Aldactone. It can be titrated up as an outpatient hopefully to keep him from having recurrent paracentesis. Charges/Coding Visit Charges Inpatient E&M: 95903 [facility] Hosp L3
[2023-05-30] MEDS: Furosemide 40 MG Tablet PO (18:17)
[2023-05-30] MEDS: Sertraline 50 MG Tablet PO (21:10)
[2023-05-30] MEDS: Spironolactone 25 MG Tablet PO (21:11)
[2023-05-31] VITALS (29 sets, daily range): BP systolic 56–98; BP diastolic 40–82; PULSE 104–138; RESP 13–24; TEMP 36.1–37.1; O2SAT 91–97; BMI 32.5; BMI 30.9
[2023-05-31] MEDS: Ondansetron 4 MG/2 ML Vial IV (01:47)
--- NOTE | 2023-05-31 02:00 | EKG12_ITS ---
Test Reason : TACHY Blood Pressure : / mmHG Vent. Rate : 136 BPM Atrial Rate : 000 BPM P-R Int : 000 ms QRS Dur : 156 ms QT Int : 376 ms P-R-T Axes : 000 239 062 degrees QTc Int : 565 ms PROBABLE ATRIAL FLUTTER WITH 2:1 CONDUCTION Right bundle branch block Abnormal ECG Confirmed by Bruce Dewitt ([id number]), features editor VIOLETTA PIERCE ([id number]) on 05/31/2023 1:36:02 PM Referred By: Block Confirmed By:Bruce Dewitt
[2023-05-31] MEDS: MethylPREDNISolone 125 MG/2 ML Vial IV (02:45)
[2023-05-31] MEDS: Albumin Human 25% (100 mL) 25 GM/100 ML BAG IV ×2 (02:50→09:28)
[2023-05-31] MEDS: 0.9% Saline Lock 10 ML Syringe IV ×3 (03:31→11:48)
[2023-05-31] MEDS: Piperacil/Tazobactam 3.375 GM in 0.9% Normal Saline (50mL MB+) 50 ML IV ×2 (06:11→15:27)
[2023-05-31] MEDS: Menthol/Lanolin/Calamine/Znox 113 GM Tube 1 APPLIC TOPICAL ×2 (07:00→14:05)
[2023-05-31 07:37] LABS: Anion Gap 8 (5-15); BUN 24 mg/dL (7-18); BUN/Creat Ratio 15.8 RATIO (10-20); Calcium,Total 10.8 mg/dL (8.5-10.1); Chloride 116 mmol/L (98-107); Creatinine, Serum 1.52 mg/dL (0.70-1.30); EST Glomerular Filtration Rate 47 mL/min (>60); Est Glom Filt Rate - Afr Amer 57 mL/min (>60); Estimated Creatinine Clearance 42.47 ml/min; Glucose 92 mg/dL (74-106); Potassium 3.8 mmol/L (3.5-5.1); Sodium Level 148 mmol/L (136-145)
[2023-05-31] MEDS: Albuterol 2.5 MG/3 ML VIAL.NEB. INHALATION ×2 (07:40→13:49)
[2023-05-31] MEDS: rifAXIMin 550 MG Tablet PO (09:31)
[2023-05-31] MEDS: Allopurinol 300 MG Tablet PO (09:31)
[2023-05-31] MEDS: Ferrous Sulfate 300 MG/5 ML UDC PO (09:31)
[2023-05-31] MEDS: Acetaminophen 325 MG Tablet 650 MG PO (09:39)
[2023-05-31] MEDS: Pantoprazole Sodium 40 MG in 0.9% Normal Saline (100mL MB+) 100 ML 330 MG IV (11:56)
[2023-05-31] MEDS: 0.9% Normal Saline (1000mL) 1,000 ML 999 ML IV ×3 (13:00→15:26)
[2023-05-31 13:29] LABS: Absolute Lymphocyte Count 0.09 X10^3/uL (0.83-4.51); Absolute Neutrophil Count 11.7 X10^3/uL (2.0-7.7); Basophil# 0.04 X10^3/uL; Basophil% 0.3 % (0-1); Eosinophil# 0.02 X10^3/uL; Eosinophils% 0.2 % (0-5); Hematocrit 33.2 % (40-54); Hemoglobin 10.9 g/dL (13.0-16.5); Lymphocyte # 0.09 X10^3/ul (0.83-4.51); Lymphocyte % 0.8 % (19-41); Mean Corp Hgb Conc 32.8 g/dL (32-36); Mean Corpuscular Volume 103.4 fL (80-94); Mean Platelet Vol. 11.5 fl (6.2-12.0); Monocyte# 0.07 X10^3/uL; Monocyte% 0.6 % (0-10); NRBC Flagged by Analyzer 0 % (0-5); Neutrophil # 11.67 X10^3/uL (2.7-7.7); Neutrophil % 97.8 % (47-70); POSITIVE COUNT YES; POSITIVE DIFFERENTIAL YES; POSITIVE MORPHOLOGY YES; Platelet Count 58 K/mm3 (150-450); RBC Distribution Width CV 17.3 % (11.6-14.6); RBC Distribution Width SD 65.1 fl (35.1-43.9); Red Blood Count 3.21 M/mm3 (4.6-6.2); White Blood Count 11.9 K/mm3 (4.4-11.0)
[2023-05-31 13:41] LABS: Differential Indicated SCAN CRITERIA MET
[2023-05-31 13:46] LABS: AST(SGOT) 137 U/L (15-37); Alanine Aminotransfer ALT/SGPT 57 U/L (16-61); Albumin, Serum 2.5 g/dL (3.2-5.0); Alkaline Phosphatase 532 U/L (45-117); Bilirubin, Direct 3.05 mg/dL (0.00-0.30); Globulin 2.2 g/dL (2.2-4.2); Protein, Total 4.7 g/dL (6.4-8.2)
[2023-05-31 13:56] LABS: Anisocytosis 2+
[2023-05-31] MEDS: 0.9% Normal Saline (1000mL) 1,000 ML 125 ML IV (14:05)
--- NOTE | 2023-05-31 15:30 | CASEMGMT ---
Physician spoke with patient's daughter Ingris and son in law about Hospice. Ingris is open to talking with Hospice. SW met with patient. SW confirmed Ingris is open to talking with Hospice. Ingris would like to talk with Hospice today. KIMMY called Aylin with Hospice and made the referral. SW also e-mailed Aylin the referral. Maria T Marquez APPLICATION INTEGRATION SPECIALIST NOE
--- NOTE | 2023-05-31 17:09 | EX.PCM.PN.GI ---
Subjective Subjective Patient is very lethargic and weak. He has not been eating much. He has had persistently low blood pressures today. He is currently getting fluid bolus and has been responding. Objective Data Objective Data Vital Signs: Vital Signs Temp Pulse Resp BP Pulse Ox O2 Del Method O2 Flow Rate 98.7 F 125 H 18 67/55 L 92 Nasal Cannula 5 05/31/23 12:00 05/31/23 12:30 05/31/23 12:30 05/31/23 13:00 05/31/23 12:00 05/31/23 14:00 05/31/23 14:00 FiO2 2 05/26/23 12:41 Oxygen Flow Rate (L/min) 5 Oxygen Delivery Method Nasal Cannula Weight: 216 lb 0.848 oz Body Mass Index (BMI) 30.9 Intake & Output: Intake and Output for Last 24 Hours 05/29/23 05/30/23 05/31/23 23:59 23:59 23:59 Intake Total 1590 / 1590 910 / 910 3470 / 3470 Output Total 9310 / 9610 8100 / 8100 350 / 350 Balance -7720 / -8020 -7190 / -7190 3120 / 3120 Lab / Micro Data 05/31/23 13:07 05/31/23 06:45 Labs: Laboratory Results - last 24 hr 05/31/23 06:45: Sodium 148 H, Potassium 3.8, Chloride 116 H, Carbon Dioxide 24.0, Anion Gap 8, BUN 24 H, Creatinine 1.52 H, Estim Creat Clear Calc 42.47, Est GFR (MDRD) Af Amer 57 L, Est GFR (MDRD) Non-Af 47 L, BUN/Creatinine Ratio 15.8, Glucose 92, Calcium 10.8 H 05/31/23 13:07: WBC 11.9 H, RBC 3.21 L, Hgb 10.9 L, Hct 33.2 L, MCV 103.4 H, MCH 34.0 H, MCHC 32.8, RDW Std Deviation 65.1 H, RDW Coeff of Raina 17.3 H, Plt Count 58 L, MPV 11.5, Immature Gran % (Auto) 0.300, Neut % (Auto) 97.8 H, Lymph % (Auto) 0.8 L, [place] % (Auto) 0.6, Eos % (Auto) 0.2, Baso % (Auto) 0.3, Absolute Neuts (auto) 11.7 H, Absolute Lymphs (auto) 0.09 L, Nucleated RBC % 0, Anisocytosis 2+, Total Bilirubin 4.00 H, Direct Bilirubin 3.05 H, AST 137 H, ALT 57, Alkaline Phosphatase 532 H, Total Protein 4.7 L, Albumin 2.5 L, Globulin 2.2 Micro: Microbiology 05/29/23 17:24 Sputum, Expectorated/Coughed Gram Stain - Final 05/29/23 17:24 Sputum, Expectorated/Coughed Respiratory Culture - Preliminary Gram negative martha Presumptive C albicans 05/27/23 13:57 Stool Enteric Bacteriology - Final 05/27/23 10:59 Stool Clostridioides difficile (PCR) - Final 05/25/23 16:11 Urine Catheter - Catheter Legionella Antigen - Final 05/25/23 16:11 Urine Catheter - Catheter Streptococcus pneumoniae Antigen (M - Final 05/24/23 15:15 Mucosa - Nose SARS-CoV-2, Influenza & RSV (PCR) - Final Physical Exam Narrative Lethargic and answers questions very slowly Const no apparent distress General Appearance: cooperative and well developed Orientation / Consciousness: awake HEENT normocephalic and head/scalp atraumatic Eyes PERRL, EOMs intact bilaterally and conjunctivae normal Neck supple, no JVD, thyroid normal and no carotid bruits General: trachea midline Resp normal respiratory effort, no retractions, no use of accessory muscles and clear to auscultation bilaterally Auscultation: Negative for rales, rhonchi or wheezes Cardio regular rate, regular rhythm, S1 normal heart sound, S2 normal heart sound, no murmurs, no rub and no gallops GI normal to inspection, nondistended, normoactive bowel sounds, soft to palpation and non-tender GI Narrative: At the time my examination, there was moderate abdominal distention noted, abdomen was soft and nontender Extremity no clubbing, cyanosis or edema Skin no rashes or lesions noted General Skin Exam: no breakdown Neuro CN's II-XII intact bilaterally, moves all extremities, no focal motor deficits and no sensory deficits noted Sensorium / Orientation: awake Speech: speech normal Psych Psych Narrative: Patient has flat affect Assessment & Plan Assessment/Plan (1) Encephalopathy acute: PLAN: Plan The patient is an 83 y/o M w/ PMHx: Chronic anemia/AOCD, CKD sP, Non-alcoholic Liver Cirrhosis w/ Liver cancer w/ associated chronic thrombocytopenia/anemia/mild hyperammonemia complicated by decompensated liver disease leading to refractory ascites. Acute Encephalopathy likely secondary to decompensated liver disease. Recommendations are Xifaxan 550 mg p.o. twice daily and lactulose 30 cc every 6 hours [id number]. His current MELD is low at 16. He is a child Swain class C. Nonalcoholic cirrhosis with underlying liver cancer with associated pancytopenia, chronic/chronic iron deficiency anemia: Patient following with Dr. Dahl, - 05/25/23 limited abdominal US with noted ascites in all quadrants. - 05/26/23 paracentesis performed with 8200 cc fluid removed and diagnostic evaluation studies requested including cytology. Given amount removed IV albumin ~6 g/L administered with 50 gm 25% albumin administered. - 05/30/23 6300 serosanguineous fluid removed. He will need albumin. Recommend to start him on midodrine 10 mg p.o. twice daily as it can be associated with decreased amount of ascites as formed along with starting him on 40 mg of Lasix and 50 mg of Aldactone. It can be titrated up as an outpatient hopefully to keep him from having recurrent paracentesis. -05/31/23-severe decompensated liver disease with persistent hypotension. He is a child class C with a worsening MELD of 24. His decompensated liver disease is complicated by hepatic hydrothorax, refractory ascites, hypotension possibly secondary to rapid progressive hepatorenal syndrome secondary to frequent large-volume paracentesis. He has a guarded prognosis. If he is transferred to the ICU then recommend Levophed, 50 g albumin every 6 hours and octreotide drip at 25 mg an hour. Charges/Coding Visit Charges Inpatient E&M: 04474 [facility] Hosp L3
[2023-05-31] MEDS: Atropine Sulfate 1% 2 ml Bottle 4 DRP PO (18:02)
[2023-05-31] MEDS: Morphine 2 MG/ML Syringe IV ×2 (18:16→19:13)
--- NOTE | 2023-05-31 18:27 | PCM.PN.HOSP ---
Reason for Visit Reason for Visit: Diagnoses Anemia in other chronic diseases classified elsewhere (05/25/23) Obstructive sleep apnea (adult) (pediatric) (05/25/23) Encephalopathy, unspecified (05/25/23) Gastro-esophageal reflux disease without esophagitis (05/25/23) Unspecified cirrhosis of liver (05/25/23) Gout, unspecified (05/25/23) Malignant ascites (05/25/23) Other ascites (05/25/23) Other symptoms and signs involving the nervous system (05/25/23) Dependence on other enabling machines and devices (05/25/23) Subjective Subjective Patient was seen and examined today, last night his blood pressure went low and he was given albumin and fluids, today his blood pressure has trended downward, as of this afternoon his blood pressure was in the 60s systolic, I administered IV fluids but this did not impact his blood pressure. I had a long conversation with the patient's POA who came up to see the patient after I called her on the phone, her also came to the hospital with her, I told her that the options were to transfer him to the ICU to place him on pressors but that he has severe liver disease and that ultimately elevating his blood pressure will not be of help in the long run due to his severe liver disease. The other option would be to administer fluids and PCU and not transport the patient to the unit, the final option would be to withdraw care and just provide comfort care measures. I told her I believed the patient had end-stage liver disease. She was open to having hospice come in and talk with her, hospice came in today and felt that the patient was actively dying and they would not okay transport to the inpatient hospice facility. Patient's POA elected to make him a comfort care, I placed him on IV morphine and atropine. I talked briefly with gastroenterology, they confirmed that the patient's cirrhosis was advanced. Objective Data Objective Data Vital Signs: Vital Signs Temp Pulse Resp BP Pulse Ox O2 Del Method O2 Flow Rate 98.7 F 125 H 18 67/55 L 92 Nasal Cannula 5 05/31/23 12:00 05/31/23 12:30 05/31/23 12:30 05/31/23 13:00 05/31/23 12:00 05/31/23 14:00 05/31/23 14:00 FiO2 2 05/26/23 12:41 Oxygen Flow Rate (L/min) 5 Oxygen Delivery Method Nasal Cannula Weight: 98 kg Body Mass Index (BMI) 30.9 Intake & Output: Intake and Output for Last 24 Hours 05/29/23 05/30/23 05/31/23 23:59 23:59 23:59 Intake Total 1590 / 1590 910 / 910 3855.42 / 3855.42 Output Total 9310 / 9610 8100 / 8100 350 / 350 Balance -7720 / -8020 -7190 / -7190 3505.42 / 3505.42 Lab / Micro Data 05/31/23 13:07 05/31/23 06:45 Labs: Laboratory Results - last 24 hr 05/31/23 06:45: Sodium 148 H, Potassium 3.8, Chloride 116 H, Carbon Dioxide 24.0, Anion Gap 8, BUN 24 H, Creatinine 1.52 H, Estim Creat Clear Calc 42.47, Est GFR (MDRD) Af Amer 57 L, Est GFR (MDRD) Non-Af 47 L, BUN/Creatinine Ratio 15.8, Glucose 92, Calcium 10.8 H 05/31/23 13:07: WBC 11.9 H, RBC 3.21 L, Hgb 10.9 L, Hct 33.2 L, MCV 103.4 H, MCH 34.0 H, MCHC 32.8, RDW Std Deviation 65.1 H, RDW Coeff of Raina 17.3 H, Plt Count 58 L, MPV 11.5, Immature Gran % (Auto) 0.300, Neut % (Auto) 97.8 H, Lymph % (Auto) 0.8 L, [place] % (Auto) 0.6, Eos % (Auto) 0.2, Baso % (Auto) 0.3, Absolute Neuts (auto) 11.7 H, Absolute Lymphs (auto) 0.09 L, Nucleated RBC % 0, Anisocytosis 2+, Total Bilirubin 4.00 H, Direct Bilirubin 3.05 H, AST 137 H, ALT 57, Alkaline Phosphatase 532 H, Total Protein 4.7 L, Albumin 2.5 L, Globulin 2.2 Micro: Microbiology 05/29/23 17:24 Sputum, Expectorated/Coughed Gram Stain - Final 05/29/23 17:24 Sputum, Expectorated/Coughed Respiratory Culture - Preliminary Gram negative martha Presumptive C albicans 05/27/23 13:57 Stool Enteric Bacteriology - Final 05/27/23 10:59 Stool Clostridioides difficile (PCR) - Final 05/25/23 16:11 Urine Catheter - Catheter Legionella Antigen - Final 05/25/23 16:11 Urine Catheter - Catheter Streptococcus pneumoniae Antigen (M - Final 05/24/23 15:15 Mucosa - Nose SARS-CoV-2, Influenza & RSV (PCR) - Final Physical Exam Const Constitutional Narrative: Patient is lethargic, he has trouble speaking, patient looks frail and unwell HEENT normocephalic and head/scalp atraumatic Eyes PERRL and EOMs intact bilaterally Neck no JVD and thyroid normal General: trachea midline Resp Resp Narrative: Patient has expiratory rhonchi bilaterally Auscultation: rales, rhonchi throughout and wheezes Cardio Cardio Narrative: Heart rate and rhythm is tachycardic and irregular GI normal to inspection, nondistended, normoactive bowel sounds, soft to palpation, non-tender and non-distended Extremity Extremity Narrative: Generalized edema is noted of the lower extremities Skin no rashes or lesions noted General Skin Exam: no breakdown Neuro CN's II-XII intact bilaterally Neuro Narrative: Patient is lethargic, he does open his eyes to verbal stimulation and tactile stimulation, he does not carry on a conversation Psych Psych Narrative: Patient is lethargic and somnolent Assessment & Plan Assessment/Plan (1) Encephalopathy acute: PLAN: Plan 1. Acute metabolic encephalopathy-due to end-stage liver disease, patient appears to be actively dying at this time, he was made a comfort care and he will be reevaluated tomorrow morning for possible transfer to hospice if his pressure stabilizes #2 hypercalcemia-etiology unclear at this time #3 End-stage cirrhosis #4 generalized debility due to advanced age and multiple medical problems #5 acute gastritis-patient is currently on a PPI #6 esophageal varices-banded by gastroenterology #7 hepatic cancer-the patient's hepatic lesion is approximately 12 mm in diameter #8 urinary retention-patient currently has a Chow catheter #9 paroxysmal atrial fibrillation-patient is not chronically anticoagulated secondary to underlying hepatic disease Prognosis is poor at this time, comfort measures are instituted, patient is a DNR comfort care at this time Total clinical time spent by myself addressing the patient's medical issues, reviewing all of his data, and collaborating with patient's care team: 35 minutes Charges/Coding Visit Charges Inpatient E&M: 49723 Subs Hosp L2
[2023-05-31] MEDS: LORazepam 2 MG/ML Syringe 1 MG IV (21:34)
[2023-06-01] MEDS: Atropine Sulfate 1% 2 ml Bottle 4 DRP PO ×2 (00:06→05:20)
[2023-06-01] MEDS: Morphine 2 MG/ML Syringe IV (02:19)
[2023-06-01 06:00] VITALS: BMI 32.3
[2023-06-01 07:15] VITALS: O2SAT 94
--- NOTE | 2023-06-01 09:45 | CASEMGMT ---
Addendum entered by Maria T Marquez 06/01/23 11:50: Hospice re-evaluated patient and it was determined patient was okay for transport. KIMMY requested [facility] notify KIMMY when they will pharmacy picking technician patient. Plan: d/c to [facility] inpatient [facility] unit. Hospice will transport. Maria T LIU Original Note: Patient was not transferred to Hospice yesterday as it was felt patient may not make the transport. However, patient is a little better today and could likely survive transport. KIMMY called [facility] at Hospice and she will send an RN around 11 to review patient's condition. Maria T LIU
[2023-06-01 09:48] VITALS: BP 70/55; PULSE 134; RESP 16; TEMP 36.6; O2SAT 90
[2023-06-01] MEDS: LORazepam 2 MG/ML Syringe 1 MG IV (13:33)
--- NOTE | 2023-06-01 13:43 | PCM.DC.SUM ---
Providers Date of Admission: 05/25/23 Date of Discharge: 06/01/23 Primary Care Physician: Dr. Ricky Bradley MD Consultations 05/24/23 17:57 Consult: Tele-Neurology Routine Consulting Provider: [facility] Reason for Consult: CVA r/o EMERGENT Consult: No Notified: Yes Date Notified: 05/24/23 Time Notified: 17:52 Method of Notification: Answering Service Nursing Unit Staff Notify [facility] of Tele-Neurology Consult: Yes 05/28/23 10:45 Consult: Gastroenterology Routine Consulting Provider: [facility] Reason for Consult: CT gastritis, having N/V, does have liver CA, concern for CA EMERGENT Consult: No MD Notified: Yes Date Notified: 05/28/23 Time Notified: 10:45 Method of Notification: Text Reason For Visit: CVA R/O Diagnosis Discharge Diagnosis (1) Encephalopathy acute: Status: Acute Code(s): G93.40 - Encephalopathy, unspecified Plan 1. Acute metabolic encephalopathy-due to end-stage liver disease, patient appears to be actively dying at this time, he was made a comfort care and he will be reevaluated tomorrow morning for possible transfer to hospice if his pressure stabilizes #2 hypercalcemia-etiology unclear at this time #3 End-stage cirrhosis #4 generalized debility due to advanced age and multiple medical problems #5 acute gastritis-patient is currently on a PPI #6 esophageal varices-banded by gastroenterology #7 hepatic cancer-the patient's hepatic lesion is approximately 12 mm in diameter #8 urinary retention-patient currently has a Chow catheter #9 paroxysmal atrial fibrillation-patient is not chronically anticoagulated secondary to underlying hepatic disease Prognosis is poor at this time, comfort measures are instituted, patient is a DNR comfort care at this time Total clinical time spent by myself addressing the patient's medical issues, reviewing all of his data, and collaborating with patient's care team: 35 minutes Medications at Discharge Home Medications allopurinol 300 mg tablet 300 mg PO DAILY gout 04/12/16 fenofibrate nanocrystallized 48 mg tablet 48 mg PO DAILY cholesterol 04/12/16 magnesium oxide 400 mg (241.3 mg magnesium) tablet 400 mg PO DAILY supplement 04/12/16 gnybueqf-vhu-foltm acid 0.4 mg-lycopene 300 mcg-lutein 250 mcg tablet 1 ea PO DAILY vitamin 04/12/16 sertraline 100 mg tablet 50 mg PO QHS depression 09/05/19 aspirin 81 mg tablet,delayed release (Adult Aspirin Regimen) 81 mg PO DAILY heart 11/10/20 ferrous sulfate 325 mg (65 mg iron) tablet 325 mg PO BID supplement 11/10/20 albuterol sulfate 90 mcg/actuation aerosol inhaler 2 puff inhalation Q6H PRN ASTHMA 05/25/21 fluticasone propionate 50 mcg/actuation nasal spray,suspension 1 spray intranasal DAILY nasal 05/25/21 omeprazole 40 mg capsule,delayed release 40 mg PO DAILY reflux 05/25/21 oxybutynin chloride 15 mg tablet,extended release 24 hr 30 mg PO DAILY bladder 05/25/21 ascorbic acid (vitamin C) 500 mg capsule 500 mg PO BID supplement 05/17/22 furosemide 20 mg tablet 20 mg PO Q OTHER DAY heart 05/17/22 nitroglycerin 0.4 mg sublingual tablet 0.4 mg sublingual Q5M PRN chest pain 05/17/22 cyanocobalamin (vitamin B-12) 5,000 mcg capsule 2,500 mcg PO DAILY supplement 10/29/22 rifaximin 550 mg tablet (Xifaxan) 550 mg PO BID liver 10/29/22 diltiazem HCl 120 mg capsule,extended release 24 hr 120 mg PO DAILY #30 caps 12/07/22 metoprolol tartrate 25 mg tablet 25 mg PO BID #60 tabs 12/07/22 fluticasone furoate 200 mcg-vilanterol 25 mcg/dose inhalation powder (Breo Ellipta) 1 inh inhalation DAILY breathing 04/06/23 cefdinir 300 mg capsule 300 mg PO BID antibiotic 4 days #8 caps 04/11/23 ferrous sulfate 325 mg (65 mg iron) tablet,delayed release mg PO 05/24/23 Hospital Course Operations None Procedures EGD and Paracardiocentesis Summary of Care Provided Minutes Spent on Discharge: 31 Hospital Course: This 83-year-old white male was seen in the emergency room at [facility] after being brought in for evaluation of altered mental status, patient has a history of cirrhosis and primary liver cancer. Patient was not able to give a history to the emergency room physician, labs were obtained, his white blood cell count was normal, platelets were low at 58,000, chest x-ray showed blunting of the right costophrenic angle, CT of the brain was negative. Ammonia level slightly high at 34. Patient was admitted to PCU for altered mental status and elevated ammonia level and debility, he was seen in consultation by gastroenterology and underwent an EGD which showed grade 2 esophageal varices which were banded, and acute gastritis. Patient was seen by PT and OT but remains frail and debilitated during his hospital stay. Underwent 2 paracentesis which removed several liters of fluid each time, despite this, patient decompensated and it was felt he was going into liver failure. Conversations were carried out with the family and they agreed to hospice consultation, patient was made a comfort care and he was kept comfortable and the following day he was transferred to the hospice care facility in stable but terminal condition. On 06/01/2023, patient was seen and examined: Patient appeared moribund and unwell, lungs are clear bilaterally, heart rate and rhythm was tachycardic, patient was not alert but responded to painful stimuli. 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 Presumptive C albicans 05/27/23 13:57 Stool Enteric Bacteriology - Final 05/27/23 10:59 Stool Clostridioides difficile (PCR) - Final 05/25/23 16:11 Urine Catheter - Catheter Legionella Antigen - Final 05/25/23 16:11 Urine Catheter - Catheter Streptococcus pneumoniae Antigen (M - Final 05/24/23 15:15 Mucosa - Nose SARS-CoV-2, Influenza & RSV (PCR) - Final Meaningful Use Info Meaningful Use Diagnoses (Choose all that apply): None applicable Discharge Plan Admission Admit Date/Time: 05/25/23 13:31 Attending Provider: Juan Mendez Primary Care Provider: Ricky Bradley Consulting Providers: Mandeep Richard; Milana Campa; Una Luevano; Yanna Youssef; Adore Beltrán; Eliu Faustin; Dominique Strickland; Isai Hanna; Elton Ferrer; Lovely sAif; Kan Kern; Colleen Mancilla; Yamileth Madrid; Crow Roth; Too Self; José Miguel Stone; Shar Quiros; Florina Hines; Jarett Garcia; Sue Roman; Seda Arizmendi; Jose C Somers; Jony Dawson; TRUNG MEDINA; Antony Hernandez; Nataliya Rajan; Joan Menjivar Instructions Patient Instructions: ADONIS RN Paracentesis Dc Discharge Orders/Prescriptions Prescriptions: No Action ferrous sulfate 325 mg (65 mg iron) tablet 325 mg PO BID aspirin [Adult Aspirin Regimen] 81 mg tablet,delayed release (DR/EC) 81 mg PO DAILY oxybutynin chloride 15 mg tablet extended release 24hr 30 mg PO DAILY albuterol sulfate 90 mcg/actuation HFA aerosol inhaler 2 puff inhalation Q6H PRN (Reason: ASTHMA) fluticasone propionate 50 mcg/actuation spray,suspension 1 spray intranasal DAILY omeprazole 40 mg capsule,delayed release(DR/EC) 40 mg PO DAILY furosemide 20 mg tablet 20 mg PO Q OTHER DAY ascorbic acid (vitamin C) 500 mg capsule 500 mg PO BID nitroglycerin 0.4 mg tablet, sublingual 0.4 mg sublingual Q5M PRN (Reason: chest pain) Rx Instructions: do not exceed 3 doses per episode magnesium oxide 400 MG tablet 400 mg PO DAILY allopurinol 300 MG tablet 300 mg PO DAILY Patient Comments: GOUT [id number]-lxc-EQ-lycopen-lutein 1 EACH tablet 1 ea PO DAILY fenofibrate nanocrystallized 48 MG tablet 48 mg PO DAILY Patient Comments: CHOLESTEROL sertraline 100 MG tablet 50 mg PO QHS diltiazem HCl 120 mg capsule,extended release 24hr 120 mg PO DAILY Qty: 30 0RF metoprolol tartrate 25 mg tablet 25 mg PO BID Qty: 60 0RF Xifaxan 550 mg tablet 550 mg PO BID cyanocobalamin (vitamin B-12) 5,000 mcg capsule 2,500 mcg PO DAILY fluticasone furoate-vilanterol [Breo Ellipta] 200-25 mcg/dose blister with device 1 inh inhalation DAILY cefdinir 300 mg capsule 300 mg PO BID 4 Days Qty: 8 0RF ferrous sulfate 325 mg (65 mg iron) tablet,delayed release (DR/EC) PO Referrals / Follow Up: Ricky Bradley MD [Primary Care Provider] - Disposition Disposition (needs filled in before D/C Order can be placed): Hospice in Medical Facility Charges/Coding Visit Charges Inpatient E&M: 99012 Disch Hosp >30min
--- NOTE | 2023-06-01 14:06 | NURSING ---
Report called to hailey at in hospice. Hospice wanted IV's and hernandez left in place.
[2023-06-01 14:07] VITALS: BMI 32.3
== END 2023-06-01 13:48 | disposition hospice, inpatient (51) | DRG 432 ==
LOC: ED 16:07 → PCU 18:03
PROVIDERS: Family Medicine; Internal Medicine Gastroenterology; Nurse Practitioner Acute Care; Admitting Provider Internal Medicine; Emergency Provider Student in an Organized Health Care Education/Training Program; PCP Internal Medicine; Visit Provider Internal Medicine
PROC: 0DJ08ZZ Inspection of Upper Intestinal Tract, Via Natural or Artificial Opening Endoscopic (ICD-10-PCS; CPT 43235; principal; 2023-05-29 12:55)
DX: K74.60 Unspecified cirrhosis of liver (principal); G93.41 Metabolic encephalopathy; D61.818 Other pancytopenia; I69.354 Hemiplegia and hemiparesis following cerebral infarction affecting left non-dominant side; C22.8 Malignant neoplasm of liver, primary, unspecified as to type; I85.10 Secondary esophageal varices without bleeding; R18.8 Other ascites; D63.0 Anemia in neoplastic disease; I48.0 Paroxysmal atrial fibrillation; I12.9 Hypertensive chronic kidney disease with stage 1 through stage 4 chronic kidney disease, or unspecified chronic kidney disease; F32.A Depression, unspecified; I35.0 Nonrheumatic aortic (valve) stenosis; E78.5 Hyperlipidemia, unspecified; K21.9 Gastro-esophageal reflux disease without esophagitis; K29.00 Acute gastritis without bleeding; I25.10 Atherosclerotic heart disease of native coronary artery without angina pectoris; E83.52 Hypercalcemia; R54 Age-related physical debility; F41.9 Anxiety disorder, unspecified; M10.9 Gout, unspecified; G47.33 Obstructive sleep apnea (adult) (pediatric); E87.6 Hypokalemia; K44.9 Diaphragmatic hernia without obstruction or gangrene; Z68.36 Body mass index [BMI] 36.0-36.9, adult; R62.7 Adult failure to thrive; Z95.2 Presence of prosthetic heart valve; Z66 Do not resuscitate; R33.9 Retention of urine, unspecified; R47.81 Slurred speech; R13.12 Dysphagia, oropharyngeal phase; Z96.642 Presence of left artificial hip joint; Z79.82 Long term (current) use of aspirin; Z79.899 Other long term (current) drug therapy
CPT/HCPCS: 36415; 49083; 70450; 70496; 70498; 70551; 71045; 74018; 74177; 74230; 76705; 80048; 80053; 80061; 80069; 80076; 81001; 82140; 82306; 82330; 82652; 82945; 83615; 83735; 83880; 83970; 84145; 84157; 84443; 84484; 85025; 85610; 85730; 87070; 87077; 87186; 87205; 87449; 87493; 87506; 87631; 87641; 88108; 88305; 88313; 89050; 92507; 92526; 92610; 92611; 93005; 93306; 94640; 94668; 94762; 95819; 97110; 97162; 97166; 97530; 97535; 99285; J7030; J7040; J7050; P9047; Q9957; Q9967; A4216; C8929; J2405; J2430